=== PATIENT | male | born 1935 | race Caucasian/White ===

== ENCOUNTER 2024-01-26 08:14 | Outpatient (CLI) | payer OTHER, SELFPAY ==
[2024-01-26] MEDS: REGADENOSON 0.4 MG/5 ML SYRINGE IVP (09:47)
[2024-01-26] MEDS: SODIUM CHLORIDE 0.9 % (FLUSH) 10 ML SYRINGE IVF (09:47)
--- NOTE | 2024-01-26 10:15 | W.PM.STED ---
Stress Test Note Date Date Seen: 01/26/24 Date of test: 01/26/24 Providers Primary care provider: Sariah Culver Stress test physician: Maggie Chin Stress Test Note Stress test ordered: Lexiscchinyere Indication for test: Chest pain Stress test medicine: Lexiscan Results discussion: Resting EKG: Sinus bradycardia, 56 beats per minute. Resting blood pressure: 177/78 Stress test: Patient was consented on stress test ordered and proceeded with Lexiscan nonwalking. Patient had no symptoms, no chest pain specifically, with administration of regadenoson. During monitoring, some 1 solitary PVC but no arrhythmia, no diagnostic EKG change for ischemia. No concerning blood pressure changes, patient really stated he had no symptoms. Patient will have his post stress images obtained and discharge to home. Impression: Subjectively negative, objectively negative EKG portion of Lexiscan. Follow up suggested: Patient will have post stress images obtained and await the nuclear medicine reading of these images to couple this for a full formal diagnostic test. He will wait to hear from his ordering physician regarding results.
[2024-01-26 10:21] VITALS: BP 181/85; PULSE 76
== END 2024-01-26 08:15 | disposition home or self-care (01) ==
PROVIDERS: PCP Internal Medicine; Visit Provider Internal Medicine
DX: R07.9 Chest pain, unspecified (principal)
CPT/HCPCS: 78452; 93016; 93017; A9500; J2785

== ENCOUNTER 2024-01-27 11:11 | Emergency (ER) | payer OTHER, MEDICARE, SELFPAY ==
[2024-01-27] VITALS (21 sets, daily range): BP systolic 118–157; BP diastolic 72–88; PULSE 45–63; RESP 14–16; O2SAT 91–99; BMI 22.9
--- NOTE | 2024-01-27 11:32 | ED.GENADULT ---
HPI - General Adult General Time Seen by Provider: 11:32 Date Seen: 01/27/24 Chief complaint: Chest Pain Stated complaint: chest pain Time Seen by Provider: 01/27/24 11:29 Source: patient, RN notes reviewed and old records reviewed Mode of arrival: ambulatory Limitations: no limitations History of Present Illness HPI narrative: 88-year-old male who presents today with chest pain. Patient presents with about 3 weeks of intermittent chest pain. Tense gets several episodes a day, sometimes at rest and sometimes associated with activities. This usually goes away on its own after couple of minutes. Patient has been seen by his primary care doctor for this, was prescribed nitroglycerin but has not used it. Patient had 3 episodes this morning which prompted his emergency department visit. Related Data Allergies Allergy/AdvReac Type Severity Reaction Status Date / Time No Known Drug Allergies Allergy Verified 01/26/24 09:49 [facility] Social History Smoking Status: Former smoker Do you use any of these nicotine containing products: None How often do you have a drink containing alcohol: monthly or less AUDIT-C Alcohol total score: 1 Non-prescribed substance use: denies use service: Yes Exam Narrative: Exam Narrative: General: Well-developed and well-nourished, no acute distress Head: Atraumatic and normocephalic Eyes: Pupils are equal reactive, extraocular motions intact, conjunctiva clear ENT: External nose and ears are normal, posterior pharynx without erythema or exudate Neck: No midline cervical tenderness, full spontaneous range of motion the neck, trachea midline, no adenopathy Heart: Regular rate and rhythm no murmurs or thrills Lungs: Clear to auscultation bilaterally without wheezes or crackles Abdomen: Soft, nontender, nondistended with active bowel sounds Musculoskeletal: No tenderness, deformity, or edema Neurologic: Awake, alert, and oriented x3, no gross focal neurologic deficits, cranial nerves intact as tested Psych: Mood and affect are appropriate Skin: No rashes Const: Vital Signs, click to edit/add: Vital Signs - 24 hr 01/27/24 11:23 01/27/24 11:32 01/27/24 11:33 Pulse Rate 48 L 48 L Pulse Rate [Radial ] 47 L Respiratory Rate 16 14 Blood Pressure 157/83 H Blood Pressure [Le ft Upper Arm] 157/83 H Pulse Oximetry 97 95 94 Oxygen Delivery Me thod Room Air Room Air 10/18/24 11:45 01/27/24 12:00 01/27/24 12:02 Pulse Rate 52 L 52 L 50 L Pulse Rate [Radial ] Respiratory Rate 16 Blood Pressure 139/88 Blood Pressure [Le ft Upper Arm] Pulse Oximetry 98 96 97 Oxygen Delivery Me thod Room Air 01/27/24 12:15 01/27/24 12:17 01/27/24 12:30 Pulse Rate 51 L 57 L 46 L Pulse Rate [Radial ] Respiratory Rate 14 Blood Pressure 146/81 H Blood Pressure [Le ft Upper Arm] Pulse Oximetry 96 96 97 Oxygen Delivery Me thod 01/27/24 12:32 01/27/24 12:45 01/27/24 12:47 Pulse Rate 48 L 45 L 45 L Pulse Rate [Radial ] Respiratory Rate 14 Blood Pressure 133/75 118/75 Blood Pressure [Le ft Upper Arm] Pulse Oximetry 99 93 94 Oxygen Delivery Me thod Room Air 01/27/24 13:00 01/27/24 13:02 01/27/24 13:15 Pulse Rate 48 L 47 L 49 L Pulse Rate [Radial ] Respiratory Rate Blood Pressure 134/78 Blood Pressure [Le ft Upper Arm] Pulse Oximetry 97 97 97 Oxygen Delivery Me thod 01/27/24 13:17 01/27/24 13:30 01/27/24 13:32 Pulse Rate 46 L 48 L 51 L Pulse Rate [Radial ] Respiratory Rate 14 Blood Pressure 124/73 139/87 Blood Pressure [Le ft Upper Arm] Pulse Oximetry 93 97 97 Oxygen Delivery Me thod Room Air 01/27/24 13:46 01/27/24 13:47 01/27/24 14:00 Pulse Rate 55 L 63 52 L Pulse Rate [Radial ] Respiratory Rate 14 Blood Pressure 140/72 H Blood Pressure [Le ft Upper Arm] Pulse Oximetry 97 91 97 Oxygen Delivery Me thod Course Course ED Course: Patient seen and examined, presents today with chest pain. 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 Patient presents today with chest pain, he has been having this off and on for the last 3 weeks, 3 episodes today. Sometimes associated with activity, sometimes at rest, last couple of minutes. EKG here does not demonstrate acute ischemic changes. EKG independently interpreted by me performed at 11:33 a.m. demonstrates sinus rhythm with first-degree AV block rate 47, findings consistent with prior septal infarct, no acute ST elevations or depressions does have T-wave inversion in V3 through V6, no prior for comparison. Reevaluation(s) Time of Reevaluation #1: 12:37 Reevaluation #1: Labs independently interpreted by me with normal CBC, basic panel with creatinine 1.6, unsure what patient's baseline is. Initial troponin 0.18 which is elevated, may be related to poor clearance from elevated creatinine or stress recent stress test, however with positive stress test, intermittent ongoing chest pain and elevated troponin heparin will be initiated and plan for transfer. [place] was contacted after initial patient contact, waiting for call back Time of Reevaluation #2: 13:32 Reevaluation #2: Care discussed with Dr. Rosales, cardiology at [facility] who accepts patient for transfer. Vital Signs Vital signs: Initial Vital Signs Pulse Rate 47 L 01/27/24 11:23 Pulse Rhythm Regular 01/27/24 11:23 Respiratory Rate 16 01/27/24 11:23 Blood Pressure 157/83 H 01/27/24 11:23 Blood Pressure Mean 107 H 01/27/24 11:23 Pulse Oximetry 97 01/27/24 11:23 Oxygen Delivery Method Room Air 01/27/24 11:23 Vital Signs Pulse Rate 47 L 01/27/24 11:23 Respiratory Rate 16 01/27/24 11:23 Blood Pressure 157/83 H 01/27/24 11:23 Pulse Oximetry 97 01/27/24 11:23 Oxygen Delivery Method Room Air 01/27/24 11:23 Pulse Rate 52 L 01/27/24 14:00 Respiratory Rate 14 01/27/24 13:47 Blood Pressure 140/72 H 01/27/24 13:47 Pulse Oximetry 97 01/27/24 14:00 Oxygen Delivery Method Room Air 01/27/24 13:32 Medications Administered Medications: Generic Name Dose Route Start Last Admin Trade Name Freq PRN Reason Stop Dose Admin Heparin Sodium/Dextrose 25,000 unit in 500 mls @ 0 mls/hr 01/27/24 12:45 01/27/24 13:02 Heparin IV 844 unit/hr .Q0M KASANDRA 16.88 mls/hr Administration Protocol Per Protocol Discontinued Medications Generic Name Dose Route Start Last Admin Trade Name Twin PRN Reason Stop Dose Admin Aspirin 324 mg 01/27/24 13:25 01/27/24 13:45 Aspirin 81 Mg Tab.Chew PO 01/27/24 13:26 324 mg ONCE ONE Administration Heparin Sodium (Porcine) 4,000 unit 01/27/24 12:39 01/27/24 13:04 Heparin 5,000 Unit/0.5 Ml Inj IVP 01/27/24 12:40 4,000 unit ONCE ONE Administration Medical Decision Making Lab Data Labs: Lab Results 01/27/24 01/27/24 Range/Units 11:58 12:38 WBC 6.42 (4.50-11.00) K/uL RBC 4.05 L (4.30-5.90) m/uL Hgb 12.4 L (13.5-17.5) gm/dL Hct 38.0 (37.0-53.0) % MCV 94 (80-100) fL MCH 31 (26-34) pg MCHC 33 (32-36) gm/dL RDW Coeff of [place] 12.4 (11.5-15.5) % Plt Count 178 (140-440) K/uL Neut % (Auto) 71.4 (42.0-72.0) % Lymph % (Auto) 14.6 L (20-44) % Angelina % (Auto) 10.3 (0.0-11.0) % Eos % (Auto) 2.6 (0.0-7.0) % Baso % (Auto) 1.1 (0.0-3.0) % Neut # (Auto) 4.58 (1.7-7.0) K/uL Lymph # (Auto) 0.90 (0.90-2.90) K/uL Angelina # (Auto) 0.70 (0.00-0.90) K/UL Eos # (Auto) 0.17 (0.00-0.50) K/uL Baso # (Auto) 0.07 (0.00-0.30) K/uL Abs Immat Gran (auto) 0.00 (0.00-0.30) K/uL Imm/Tot Granulo (auto) 0.0 % INR 1.04 (0.91-1.10) APTT 48 H (23-33) Seconds Sodium 137 (135-149) mmol/L Potassium 3.9 (3.6-5.1) mmol/L Chloride 102 (96-114) mmol/L Carbon Dioxide 27 (20-32) mmol/L Anion Gap 8 (7-15) mEq/L BUN 36 H (7-30) mg/dL Creatinine 1.6 H (0.5-1.5) mg/dL Estimated Creat Clear 32.96 Estimated GFR 42 ml/min Glucose 93 (60-115) mg/dL Calcium 8.9 (8.4-10.6) mg/dL Magnesium 2.4 (1.5-2.6) mg/dL NT-Pro-B Natriuret Pep 1760 pg/mL Lab Acknowledgement Test Added Critical Care Time Critical Care Time Critical Care Time: Yes (NSTEMI, heparin and transfer) Attestation: The patient required my highest level preparedness to intervene emergently and I personally spent this critical care time directly and personally managing the patient. This critical care time included: Obtaining a history; Examining the patient; Pulse oximetry; Ordering and reviewing of studies; Arranging urgent treatment with development of a management plan; Evaluation of patients response to treatment; Frequent reassessment discussions with other providers. This critical care time was performed to assess and manage the high probability of imminent life-threatening deterioration that could result in multiorgan failure. It was exclusive of separate billable procedures and treating other patients and teaching time. Total Critical Care Time in Minutes: 100 Discharge Plan Discharge Clinical Impression: Non-ST elevation [place] (NSTEMI), Positive cardiac stress test Patient Disposition: [facility] Discharge Location: [facility]
[2024-01-27 12:08] LABS: Basophils Absolute Auto 0.07 K/uL (0.00-0.30); Basophils Percent Auto 1.1 % (0.0-3.0); Eosinophils Absolute Auto 0.17 K/uL (0.00-0.50); Eosinophils Percent Auto 2.6 % (0.0-7.0); Hemoglobin* 12.4 gm/dL (13.5-17.5); Lymphocytes Percent Auto 14.6 % (20-44); Mean Corpuscular HGB Conc 33 gm/dL (32-36); Mean Corpuscular Hemoglobin 31 pg (26-34); Mean Corpuscular Volume 94 fL (80-100); Monocytes Percent Auto 10.3 % (0.0-11.0); Neutrophils Absolute Auto 4.58 K/uL (1.7-7.0); Neutrophils Percent Auto 71.4 % (42.0-72.0); Platelet Count* 178 K/uL (140-440); RDW Coefficient of Variation % 12.4 % (11.5-15.5); Red Blood Count 4.05 m/uL (4.30-5.90); White Blood Count* 6.42 K/uL (4.50-11.00)
[2024-01-27 12:10] LABS: Slide Review Reflex No
--- OUTSIDE RECORDS SUMMARY | 2024-01-27 12:18 | XMS_ITS | Continuity of Care Document ---
Author Name [facility] Organization [facility] Care Team Providers Care Media Monitor Name Role Phone [facility] Unavailable Unavailable Problems Combined list of problems from Department of Defense and [facility] Affairs facilities. It does not include entries that were removed or entered in error. Problem Status Onset Date Problem Type Date of Resolution Comments Source Actinic keratosis Active Condition 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 Nov 22, 2022 Entered By: Phil GOMES Comment: 11/19/2022 [facility] Basal cell carcinoma of skin Active Condition [facility] Benign prostatic hyperplasia Active Condition [facility] Cataract, Senile, Unsp Active Condition [facility] Chronic kidney disease stage 3 Active Condition [facility] Coronary atherosclerosis Active Condition [facility] Dysphagia Active Condition [facility] Former heavy tobacco smoker Active Condition [facility] GERD Active Condition [facility] Hydrocele Nos Active Condition [facility] Hypercholesterolemia * (ICD-9-CM 272.0) Active Condition [facility] Hyperlipidemia Active Condition [facility] Hyperlipidemia * (ICD-9-CM 272.4) Active Condition [facility] Hypermetropia/Hyperopia Active Condition [facility] Hypertension (SNOMED CT 74819800) Active Condition [facility] HYPERTENSION NOS Active Condition [facility] Hypertension, Benign Active Condition [facility] Hypothyroidism (SNOMED CT 47116382) Active Condition [facility] Hypothyroidism * (ICD-9-CM 244.9) Active Condition [facility] Low Back Pain * (ICD-9-CM 724.2) Active Condition [facility] 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) Active Condition [facility] Pain of left shoulder joint Active Condition [facility] Presbyopia Active Condition [facility] PROSTATE-BENING LOC HYPERPLASIA Active Condition [facility] Solitary nodule of lung Active Condition [facility] Diagnosis: ICD-10-CM R94.31 Abnormal electrocardiogram [ECG] [EKG] Active Diagnosis [facility] Diagnosis: ICD-10-CM 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 Diagnosis [facility] Diagnosis: ICD-10-CM D48.5 Neoplasm of uncertain behavior of skin Active Diagnosis [facility] Diagnosis: ICD-10-CM K59.00 Constipation, unspecified Active Diagnosis [facility] Diagnosis: ICD-10-CM Z71.2 Person consulting for explanation of exam or test findings Active Diagnosis [facility] Diagnosis: ICD-10-CM Z71.9 Counseling, unspecified Active Diagnosis [facility] Diagnosis: ICD-10-CM Z23 Encounter for immunization Active Diagnosis [facility] Diagnosis: ICD-10-CM Z46.1 Encounter for fitting and adjustment of hearing aid Active Diagnosis [facility] Diagnosis: ICD-10-CM R13.12 Dysphagia, oropharyngeal phase Active Diagnosis [facility] Diagnosis: ICD-10-CM C44.41 Basal cell carcinoma of skin of scalp and neck Active Diagnosis [facility] Diagnosis: ICD-10-CM L57.0 Actinic keratosis Active Diagnosis [facility] Diagnosis: ICD-10-CM H90.3 Sensorineural hearing loss, bilateral Active Diagnosis [facility] Diagnosis: ICD-10-CM M19.012 Primary osteoarthritis, left shoulder Active Diagnosis [facility] Diagnosis: ICD-10-CM M25.512 Pain in left shoulder Active Diagnosis [facility] Medications Combined list of outpatient medications from Department of Defense and [facility] Affairs facilities.Medications provided include 1) outpatient medications from the last 15 months, and 2) patient-reported medications. Medication Details Route Status Patient Instructions Prescription Expires Prescription Number Last Dispense Date Ordering Provider Order Date Order Qty Source ASPIRIN 81MG TAB,EC TAKE ONE TABLET BY MOUTH EVERY DAY ORAL ACTIVE JACKELYN GOMES 2023 [facility] [place] 0.005% CREAM,TOP APPLY THIN LAYER TOPICALL Y TWICE A DAY FOR ROUGH, SCALY SKIN PATCHES MIX WITH EQUAL AMOUNT OF FLUOROUR ACIL CREAM AND APPLY TO [facility] ED AREA(S). USE FOR 4-7 DAYS DIRECTED . WAIT UNTIL FEBRUARY WHEN SPOTS ARE HEALED FROM LIQUID NITROGEN TREATMEN T IN CLINIC. KEEP OUT OF REACH OF KIDS/PET S. DO NOT APPLY TO NOSE, EYES, MOUTH. MIX WITH EQUAL AMOUNT OF FLUOROUR ACIL CREAM AND APPLY TO [facility] ED AREA(S). USE FOR 4-7 DAYS DIRECTED . WAIT UNTIL FEBRUARY WHEN SPOTS ARE HEALED FROM LIQUID NITROGEN TREATMEN T IN CLINIC. KEEP OUT OF REACH OF KIDS/PET S. DO NOT APPLY TO NOSE, EYES, MOUTH. TOPICA L ACTIVE 02/04/2024 [id number] LAWANDA SANCHES 2023 60 [employer] [facility] [place] NE 0.005% CREAM,TOP APPLY THIN LAYER TOPICALL Y TWICE A DAY ACTINIC KERATOSI S MIX WITH EQUAL AMOUNT OF FLUOROUR ACIL CREAM AND APPLY TO [facility] ED AREA(S). USE FOR 4-7 DAYS DIRECTED . MIX WITH EQUAL AMOUNT OF FLUOROUR ACIL CREAM AND APPLY TO DESIGNAT ED AREA(S). USE FOR 4-7 DAYS DIRECTED . TOPICA L 12/19/2022 [id number] MARYJANE IBARRA V 2022 60 [employer] [facility]LOB [facility] FLUOROURACI L 5% CREAM,TOP APPLY PEA SIZED AMOUNTS SMOOTHED TO A THIN LAYER TOPICALL Y TWICE A DAY FOR ROUGH, SCALY SKIN PATCHES MIX WITH EQUAL AMOUNT OF CALCIPOT RIENE CREAM AND APPLY TO [facility] ED AREA(S) ON FACE. USE FOR 4-7 DAYS DIRECTED . WAIT UNTIL FEBRUARY WHEN SPOTS ARE HEALED FROM LIQUID NITROGEN TREATMEN T IN CLINIC. MIX WITH EQUAL AMOUNT OF CALCIP[place] RIENE CREAM AND APPLY TO DESIGNAT ED AREA(S) ON FACE. USE FOR 4-7 DAYS DIRECTED . WAIT UNTIL FEBRUARY WHEN SPOTS ARE HEALED FROM LIQUID NITROGEN TREATMEN T IN CLINIC. TOPICA L ACTIVE 02/04/2024 [id number] 4 LAWANDA SANCHES 2023 40 [place] [facility] FLUOROURACI L 5% CREAM,TOP APPLY THIN LAYER TOPICALL Y TWICE A DAY ACTINIC KERATOSI S MIX WITH EQUAL AMOUNT OF CAL[place]IP[place] RIENE CREAM AND APPLY TO DESIGNAT ED AREA(S). USE FOR 4-7 DAYS DIRECTED . MIX WITH EQUAL AMOUNT OF [place] RIENE CREAM AND APPLY TO DESIGNAT ED AREA(S). USE FOR 4-7 DAYS DIRECTED . TOPICA L 12/19/2022 [id number] ELAINE MARYJANE REBOLLAR L V 2022 40 [facility] HYDROCHLORO THIAZIDE 25MG/LISINO PRIL 20MG TAB TAKE 1 TABLET BY MOUTH EVERY MORNING FOR BLOOD PRESSURE . ORAL ACTIVE 06/13/2024 [id number] JACKELYN GOMES 2023 90 [facility] HYDROCHLORO THIAZIDE 25MG/LISINO PRIL 20MG TAB TAKE 1 TABLET BY MOUTH EVERY MORNING FOR BLOOD PRESSURE . ORAL DISCONT INUED 03/24/2023 [id number] [facility] 2021 90 [facility] HYDROCHLORO THIAZIDE 25MG/LISINO PRIL 20MG TAB TAKE ONE TABLET BY MOUTH EVERY MORNING FOR BLOOD PRESSURE ([facility] ; [facility]) ORAL 03/17/2023 [id number] ABELINO LEONG 2022 14 [facility] MULTI/BAND PRESSER AL/ANTIOXID ANT TAB MOUTH EVERY DAY ORAL ACTIVE JACKELYN GOMES 2022 [facility] NITROGLYCER IN 0.4MG TAB,SUBLING UAL DISSOLVE ONE TABLET UNDER THE TONGUE EVERY 5 MINUTES FOR UP TO 3 DOSES IF NEEDED FOR CHEST PAIN SUBLIN GUAL ACTIVE 02/10/2024 [id number] 4 JACKELYN GOMES 2023 100 [facility] POLYETHYLEN E GLYCOL 3350 PWDR,ORAL TAKE 17 GRAMS BY MOUTH EVERY DAY NEEDED FOR CONSTIPA TION ORAL ACTIVE 12/14/2024 [id number] JACKELYN GOMES 2023 510 [facility] SILVER SULFADIAZIN E 1% CREAM,TOP APPLY TO AFFECTED AREA TOPICALL Y TWICE A DAY NEEDED FOR IRRITATE D SKIN TOPICA L ACTIVE 10/11/2024 [id number] JACKELYN GOMES 2023 50 [facility] Immunizations Combined list of available immunizations from the Department of Defense and [facility] Affairs facilities. Immunization Series Date Given Administered By Site Reaction Lot Number CVX Code Drug Senior Economist Status Comments Source INFLUENZA, HIGH-DOSE, TRIVALENT, PF 2023 PEPEKATYA LEFT DELTO ID [id number] A 135 complet ed [facility] INFLUENZA, HIGH-DOSE, QUADRIVALENT 2022 BOOGIE ROJAS LEFT DELTO ID [id number] A 197 complet ed [facility] TDAP 2022 MARCUS ALMANZA LEFT DELTO ID L 115 complet ed [facility] INFLUENZA, HIGH-DOSE, QUADRIVALENT 2021 197 complet ed Partner:Rosaline JACKMAN.Admin istered by:[facility] [id number].( [id number] [phone]).[facility]:[phone] .Address: [address] [phone] Dosage: ML 0.7 C.WGuy [facility] INFLUENZA, INJECTABLE, QUADRIVALENT, PRESERVATIVE FREE 2020 150 complet ed [facility] COVID-19 (MODERNA), MRNA, LNP-S, PF, 100 MCG/0.5ML DOSE OR 50 MCG/0.25ML DOSE 2 2020 207 complet ed [facility] COVID-19 (MODERNA), MRNA, LNP-S, PF, 100 MCG/0.5ML DOSE OR 50 MCG/0.25ML DOSE 1 2020 207 complet ed [facility] INFLUENZA, INJECTABLE, QUADRIVALENT, PRESERVATIVE FREE 2019 150 complet ed [facility] INFLUENZA, SEASONAL, INJECTABLE, PRESERVATIVE FREE 2018 NONE 140 complet ed Right Deltoid (IM) 0.5ml, Lot #:[id number] Exp 10-09-2019 , Name:FLUA LISA QUADRIVAL ENT, Manu:Glax oSmithKli clinton [facility] ZOSTER RECOMBINANT 2 2018 187 complet ed [facility] ZOSTER RECOMBINANT 1 2018 187 complet ed [facility] INFLUENZA, HIGH DOSE SEASONAL 2017 135 complet ed [facility] INFLUENZA, HIGH DOSE SEASONAL 2017 135 complet ed [facility] INFLUENZA, INJECTABLE, MDCK, PRESERVATIVE FREE, QUADRIVALENT 2016 171 complet ed Partner: Stacykuldeep . Administe red by: Alberto Clinician (NPI=Not Provided) . Partner 2 Lot#: [id number] Mfr: RAMONA [facility] INFLUENZA, SEASONAL, INJECTABLE, PRESERVATIVE FREE 2015 140 complet ed [facility] PNEUMOCOCCAL CONJUGATE PCV 13 2014 133 complet ed 000 [facility] INFLUENZA, UNSPECIFIED FORMULATION 2013 88 complet ed [facility] INFLUENZA, UNSPECIFIED FORMULATION 2012 88 complet ed [facility] TDAP 2012 115 complet ed Glaxo aguero de la torre,22C 9R, [facility] ZOSTER LIVE 2012 121 complet ed Merck,J00 [id number] L14 [facility] INFLUENZA, UNSPECIFIED FORMULATION 2011 88 complet ed [facility] INFLUENZA, UNSPECIFIED FORMULATION 2010 88 complet ed [facility] INFLUENZA, UNSPECIFIED FORMULATION 2009 88 complet ed [facility] INFLUENZA, UNSPECIFIED FORMULATION 2008 88 complet ed Lindsey [facility] INFLUENZA, UNSPECIFIED FORMULATION 2008 88 complet ed [facility] INFLUENZA, UNSPECIFIED FORMULATION 2007 88 complet ed [facility] INFLUENZA, UNSPECIFIED FORMULATION 2007 88 complet ed Lindsey [facility] INFLUENZA, UNSPECIFIED FORMULATION 2007 88 complet ed Lindsey [facility] INFLUENZA, UNSPECIFIED FORMULATION 2006 88 complet ed [facility] PNEUMOCOCCAL (HISTORICAL) 2006 NONE 109 complet ed Left Deltoid (IM), Lot Number:[id number] Exp: 12/24/08 [facility] PNEUMOCOCCAL, UNSPECIFIED FORMULATION 2006 109 complet ed [facility] TD (ADULT), 5 LF TETANUS TOXOID, PRESERVATIVE FREE, ADSORBED 2005 113 complet ed [facility] INFLUENZA, SEASONAL, INJECTABLE 2004 141 complet ed [facility] TD(ADULT) UNSPECIFIED FORMULATION 2004 139 complet ed [facility] TD(ADULT) UNSPECIFIED FORMULATION 2003 139 complet ed Lindsey [facility] TD(ADULT) UNSPECIFIED FORMULATION 1994 139 complet ed GAGE [facility] Results Combined list of recent chemistry, hematology and other laboratory results from Department of Defense and [facility] Affairs, ranging from 15 months to all on record, depending upon the facility. Order Name Results Value Reference Range Date Interpretation Specimen Comments Source TSH W/REFLEX TO FREE T4 THYROTROPIN [UNITS/VOLU ME] IN SERUM OR PLASMA 5.10 u[IU]/ mL 0.35 - 4.94 12/13 H Specimen Type: PLASMA No comment entered. Ordering Provider: SA MARCOS GOMES Report Released Date/Time: Dec 14, 2023 12:10 PM Reporting Lab: [facility] [address] Performing Lab: [facility] [address] [place] [facility] TSH W/REFLEX TO FREE T4 THYROXINE (T4) FREE [MASS/VOLUM E] IN SERUM OR PLASMA 0.83 ng/dL 0.70 - 1.48 12/13 Specimen Type: PLASMA No comment entered. Ordering Provider: SA MARCOS GOMES Report Released Date/Time: Dec 14, 2023 12:10 PM Reporting Lab: [facility] [address] Performing Lab: [facility] [address] [place] [facility] B 12 COBALAMIN (VITAMIN B12) [MASS/VOLUM E] IN SERUM OR PLASMA 642 pg/mL 213 - 816 12/13 Specimen Type: SERUM No comment entered. Ordering Provider: SA MARCOS GOMES Report Released Date/Time: Dec 14, 2023 12:10 PM Reporting Lab: [facility] [address] Performing Lab: [facility] [address] [place] [facility] IRON GROUP IRON [MASS/VOLUM E] IN SERUM OR PLASMA 95 ug/dL 65 - 175 12/13 Specimen Type: SERUM No comment entered. Ordering Provider: SA MARCOS GOMES Report Released Date/Time: Dec 14, 2023 12:10 PM Reporting Lab: [facility] [address] Performing Lab: [facility] [address] [place] [facility] IRON GROUP IRON BINDING CAPACITY [MASS/VOLUM E] IN SERUM OR PLASMA 276 ug/dL 250 - 425 12/13 Specimen Type: SERUM No comment entered. Ordering Provider: SA MARCOS GOMES Report Released Date/Time: Dec 14, 2023 12:10 PM Reporting Lab: [facility] [address] Performing Lab: [facility] [address] [place] [facility] IRON GROUP FERRITIN [MASS/VOLUM E] IN SERUM OR PLASMA 495.9 ng/mL 21.8 - 274.7 12/13 H Specimen Type: SERUM No comment entered. Ordering Provider: SA MARCOS GOMES Report Released Date/Time: Dec 14, 2023 12:10 PM Reporting Lab: [facility] [address] Performing Lab: [facility] [address] [place] [facility] IRON GROUP IRON SATURATION 34 20 - 50 12/13 Specimen Type: SERUM No comment entered. Ordering Provider: SA MARCOS GOMES Report Released Date/Time: Dec 14, 2023 12:10 PM Reporting Lab: [facility] [address] Performing Lab: [facility] [address] [place] [facility] IRON GROUP TRANSFERRIN [MASS/VOLUM E] IN SERUM OR PLASMA 221 mg/dL 163 - 382 12/13 Specimen Type: SERUM No comment entered. Ordering Provider: SA MARCOS GOMES Report Released Date/Time: Dec 14, 2023 12:10 PM Reporting Lab: [facility] [address] Performing Lab: [facility] [address] [place] [facility] LIPID PANEL,NON -FASTING CHOLESTEROL [MASS/VOLUM E] IN SERUM OR PLASMA 186 mg/dL <199 - 199 12/13 Specimen Type: PLASMA No comment entered. Ordering Provider: SA MARCOS GOMES Report Released Date/Time: Dec 14, 2023 12:10 PM Reporting Lab: [facility] [address] Performing Lab: [facility] [address] [place] [facility] LIPID PANEL,NON -FASTING CHOLESTEROL IN HDL [MASS/VOLUM E] IN SERUM OR PLASMA 49 mg/dL 40 12/13 Specimen Type: PLASMA No comment entered. Ordering Provider: SA MARCOS GOMES Report Released Date/Time: Dec 14, 2023 12:10 PM Reporting Lab: [facility] [address] Performing Lab: [facility] [address] [place] [facility] LIPID PANEL,NON -FASTING CHOLESTEROL IN LDL [MASS/VOLUM E] IN SERUM OR PLASMA BY CALCULATION 116 mg/dL <99 - 99 12/13 H Specimen Type: PLASMA No comment entered. Ordering Provider: SA MARCOS GOMES Report Released Date/Time: Dec 14, 2023 12:10 PM Reporting Lab: [facility] [address] Performing Lab: [facility] [address] [place] [facility] LIPID PANEL,NON -FASTING CHOLESTEROL IN VLDL [MASS/VOLUM E] IN SERUM OR PLASMA BY CALCULATION 21 mg/dL <29 - 29 12/13 Specimen Type: PLASMA No comment entered. Ordering Provider: SA MARCOS GOMES Report Released Date/Time: Dec 14, 2023 12:10 PM Reporting Lab: [facility] [address] Performing Lab: [facility] [address] [place] [facility] LIPID PANEL,NON -FASTING CHOLESTEROL NON HDL [MASS/VOLUM E] IN SERUM OR PLASMA 137 mg/dL <129 - 129 12/13 H Specimen Type: PLASMA No comment entered. Ordering Provider: SA MARCOS GOMES Report Released Date/Time: Dec 14, 2023 12:10 PM Reporting Lab: [facility] [address] Performing Lab: [facility] [address] [place] [facility] LIPID PANEL,NON -FASTING TRIGLYCERID E [MASS/VOLUM E] IN SERUM OR PLASMA 106 mg/dL <149 - 149 12/13 Specimen Type: PLASMA No comment entered. Ordering Provider: SA MARCOS GOMES Report Released Date/Time: Dec 14, 2023 12:10 PM Reporting Lab: [address] Performing Lab: [address] [place] [facility] FOLATE FOLATE [MASS/VOLUM E] IN SERUM OR PLASMA 11.5 ng/mL 7.0 12/13 Specimen Type: SERUM No comment entered. Ordering Provider: SA MARCOS GOMES Report Released Date/Time: Dec 14, 2023 12:10 PM Reporting Lab: [place] [address] Performing Lab: [place] [address] [place] [facility] HEMOGLOBI N A1C HEMOGLOBIN A1C/HEMOGLO BIN.TOTAL IN BLOOD 5.3 4.0 - 6.0 12/13 Specimen Type: BLOOD Comment: Values obtained from A1C measurement s can vary. For typical A1C assays, a reported value of 7.0 could actually be between 6.7 and 7.3 if measured by a reference method. A reported value of 9.0 could actually be between 8.7 and 9.3. Ref: http://www. ngsp.org/[place] Pdata.asp Ordering Provider: SA MARCOS GOMES Report Released Date/Time: Dec 14, 2023 12:10 PM Reporting Lab: [place] [phone] Performing Lab: [facility] [address] [place] [facility] CBC LEUKOCYTES [#/VOLUME] IN BLOOD BY AUTOMATED COUNT 5.5 4.0 - 11.0 12/13 Specimen Type: BLOOD No comment entered. Ordering Provider: SA MARCOS GOMES Report Released Date/Time: Dec 14, 2023 12:10 PM Reporting Lab: [facility] [address] Performing Lab: [place] [address] [place] [facility] CBC ERYTHROCYTE S [#/VOLUME] IN BLOOD BY AUTOMATED COUNT 4.59 4.60 - 6.20 12/13 L Specimen Type: BLOOD No comment entered. Ordering Provider: SA MARCOS GOMES Report Released Date/Time: Dec 14, 2023 12:10 PM Reporting Lab: [facility] [address] Performing Lab: [address] [place] [facility] CBC HEMOGLOBIN [MASS/VOLUM E] IN BLOOD 14.0 g/dL 13.5 - 17.9 12/13 Specimen Type: BLOOD No comment entered. Ordering Provider: SA MARCOS GOMES Report Released Date/Time: Dec 14, 2023 12:10 PM Reporting Lab: [facility] [address] Performing Lab: [facility] [address] [place] [facility] CBC HEMATOCRIT [VOLUME FRACTION] OF BLOOD BY AUTOMATED COUNT 43.0 41 - 54 12/13 Specimen Type: BLOOD No comment entered. Ordering Provider: SA MARCOS GOMES Report Released Date/Time: Dec 14, 2023 12:10 PM Reporting Lab: [facility] [address] Performing Lab: [facility] [address] [place] [facility] CBC MCV [ENTITIC VOLUME] BY AUTOMATED COUNT 93.7 fL 80 - 100 12/13 Specimen Type: BLOOD No comment entered. Ordering Provider: SA MARCOS GOMES Report Released Date/Time: Dec 14, 2023 12:10 PM Reporting Lab: [facility] [address] Performing Lab: [facility] [address] [place] [facility] CBC MCH [ENTITIC MASS] BY AUTOMATED COUNT 30.5 pg 27 - 33 12/13 Specimen Type: BLOOD No comment entered. Ordering Provider: SA MARCOS GOMES Report Released Date/Time: Dec 14, 2023 12:10 PM Reporting Lab: [facility] [address] Performing Lab: [facility] [address] [place] [facility] CBC MCHC [MASS/VOLUM E] BY AUTOMATED COUNT 32.6 g/dL 32.0 - 37.5 12/13 Specimen Type: BLOOD No comment entered. Ordering Provider: SA MARCOS GOMES Report Released Date/Time: Dec 14, 2023 12:10 PM Reporting Lab: [facility] [address] Performing Lab: [facility] [address] [facility] CBC PLATELETS [#/VOLUME] IN BLOOD BY AUTOMATED COUNT 184 150 - 400 12/13 Specimen Type: BLOOD No comment entered. Ordering Provider: SA MARCOS GOMES Report Released Date/Time: Dec 14, 2023 12:10 PM Reporting Lab: [facility] [address] Performing Lab: [facility] [address] [place] [facility] CBC PLATELET MEAN VOLUME [ENTITIC VOLUME] IN BLOOD BY AUTOMATED COUNT 10.6 fL 7.4 - 10.4 12/13 H Specimen Type: BLOOD No comment entered. Ordering Provider: SA MARCOS GOMES Report Released Date/Time: Dec 14, 2023 12:10 PM Reporting Lab: [facility] [address] Performing Lab: [place] [address] [facility] IS [facility] CBC ERYTHROCYTE DISTRIBUTIO N WIDTH [RATIO] BY AUTOMATED COUNT 12.7 11.5 - 14.5 12/13 Specimen Type: BLOOD No comment entered. Ordering Provider: SA MARCOS GOMES Report Released Date/Time: Dec 14, 2023 12:10 PM Reporting Lab: [facility] [address] Performing Lab: [facility] [address] [facility] COMPREHEN SIVE METABOLIC PANEL+MG CREATININE [MASS/VOLUM E] IN SERUM OR PLASMA 1.2 mg/dL 0.7 - 1.2 12/13 Specimen Type: PLASMA No comment entered. Ordering Provider: SA MARCOS GOMES Report Released Date/Time: Dec 14, 2023 12:10 PM Reporting Lab: [facility] [address] Performing Lab: [facility] [address] [place] [facility] COMPREHEN SIVE METABOLIC PANEL+MG UREA NITROGEN [MASS/VOLUM E] IN SERUM OR PLASMA 23 mg/dL 8 - 26 12/13 Specimen Type: PLASMA No comment entered. Ordering Provider: SA MARCOS GOMES Report Released Date/Time: Dec 14, 2023 12:10 PM Reporting Lab: [facility] [address] Performing Lab: [facility] [address] [place] [facility] COMPREHEN SIVE METABOLIC PANEL+MG GLUCOSE [MASS/VOLUM E] IN SERUM OR PLASMA 95 mg/dL 70 - 100 12/13 Specimen Type: PLASMA No comment entered. Ordering Provider: SA MARCOS GOMES Report Released Date/Time: Dec 14, 2023 12:10 PM Reporting Lab: [facility] [address] Performing Lab: [facility] [address] [place] [facility] COMPREHEN SIVE METABOLIC PANEL+MG SODIUM [MOLES/VOLU ME] IN SERUM OR PLASMA 143 mmol/L 136 - 145 12/13 Specimen Type: PLASMA No comment entered. Ordering Provider: SA MARCOS GOMES Report Released Date/Time: Dec 14, 2023 12:10 PM Reporting Lab: [facility] [id number] Performing Lab: [facility] [id number] [place] [facility] COMPREHEN SIVE METABOLIC PANEL+MG POTASSIUM [MOLES/VOLU ME] IN SERUM OR PLASMA 4.7 mmol/L 3.5 - 5.1 12/13 Specimen Type: PLASMA No comment entered. Ordering Provider: SA MARCOS GOMES Report Released Date/Time: Dec 14, 2023 12:10 PM Reporting Lab: [facility] [id number] Performing Lab: [facility] [id number] [place] [facility] COMPREHEN SIVE METABOLIC PANEL+MG CHLORIDE [MOLES/VOLU ME] IN SERUM OR PLASMA 108 mmol/L 98 - 107 12/13 H Specimen Type: PLASMA No comment entered. Ordering Provider: SA MARCOS GOMES Report Released Date/Time: Dec 14, 2023 12:10 PM Reporting Lab: [facility] [address] Performing Lab: [facility] [address] [place] [facility] COMPREHEN SIVE METABOLIC PANEL+MG CARBON DIOXIDE, TOTAL [MOLES/VOLU ME] IN SERUM OR PLASMA 28 mmol/L 22 - 29 12/13 Specimen Type: PLASMA No comment entered. Ordering Provider: SA MARCOS GOMES Report Released Date/Time: Dec 14, 2023 12:10 PM Reporting Lab: [facility] [address] Performing Lab: [facility] [address] [place] [facility] COMPREHEN SIVE METABOLIC PANEL+MG CALCIUM [MASS/VOLUM E] IN SERUM OR PLASMA 9.5 mg/dL 8.4 - 10.2 12/13 Specimen Type: PLASMA No comment entered. Ordering Provider: SA MARCOS GOMES Report Released Date/Time: Dec 14, 2023 12:10 PM Reporting Lab: [facility] [address] Performing Lab: [place] [phone] [place] [facility] COMPREHEN SIVE METABOLIC PANEL+MG PROTEIN [MASS/VOLUM E] IN SERUM OR PLASMA 7.1 g/dL 6.4 - 8.3 12/13 Specimen Type: PLASMA No comment entered. Ordering Provider: SA MARCOS GOMES Report Released Date/Time: Dec 14, 2023 12:10 PM Reporting Lab: [facility] [address] Performing Lab: [facility] [address] [place] [facility] COMPREHEN SIVE METABOLIC PANEL+MG ALBUMIN [MASS/VOLUM E] IN SERUM OR PLASMA 4.2 g/dL 3.5 - 5.2 12/13 Specimen Type: PLASMA No comment entered. Ordering Provider: SA MARCOS GOMES Report Released Date/Time: Dec 14, 2023 12:10 PM Reporting Lab: [facility] [address] Performing Lab: [facility] [address] [place] [facility] COMPREHEN SIVE METABOLIC PANEL+MG BILIRUBIN.T OTAL [MASS/VOLUM E] IN SERUM OR PLASMA 0.6 mg/dL 0.2 - 1.2 12/13 Specimen Type: PLASMA No comment entered. Ordering Provider: SA MARCOS GOMES Report Released Date/Time: Dec 14, 2023 12:10 PM Reporting Lab: [facility] [address] Performing Lab: [facility] [address] [place] [facility] COMPREHEN SIVE METABOLIC PANEL+MG MAGNESIUM [MASS/VOLUM E] IN SERUM OR PLASMA 2.2 mg/dL 1.6 - 2.6 12/13 Specimen Type: PLASMA No comment entered. Ordering Provider: SA MARCOS GOMES Report Released Date/Time: Dec 14, 2023 12:10 PM Reporting Lab: [facility] [address] Performing Lab: [facility] [address] [place] [facility] COMPREHEN SIVE METABOLIC PANEL+MG ANION GAP IN SERUM OR PLASMA 7 mmol/L 5 - 15 12/13 Specimen Type: PLASMA No comment entered. Ordering Provider: SA MARCOS GOMES Report Released Date/Time: Dec 14, 2023 12:10 PM Reporting Lab: [facility] [address] Performing Lab: [facility] [address] [place] [facility] COMPREHEN SIVE METABOLIC PANEL+MG ALKALINE PHOSPHATASE [ENZYMATIC ACTIVITY/VO LUME] IN SERUM OR PLASMA 67 U/L 40 - 150 12/13 Specimen Type: PLASMA No comment entered. Ordering Provider: SA MARCOS GOMES Report Released Date/Time: Dec 14, 2023 12:10 PM Reporting Lab: [facility] [address] Performing Lab: [facility] [address] [place] [facility] COMPREHEN SIVE METABOLIC PANEL+MG ALANINE AMINOTRANSF ERASE [ENZYMATIC ACTIVITY/VO LUME] IN SERUM OR PLASMA 12 U/L <44 - 44 12/13 Specimen Type: PLASMA No comment entered. Ordering Provider: SA MARCOS GOMES Report Released Date/Time: Dec 14, 2023 12:10 PM Reporting Lab: [facility] [address] Performing Lab: [facility] [address] [place] [facility] COMPREHEN SIVE METABOLIC PANEL+MG ASPARTATE AMINOTRANSF ERASE [ENZYMATIC ACTIVITY/VO LUME] IN SERUM OR PLASMA 24 U/L 11 - 34 12/13 Specimen Type: PLASMA No comment entered. Ordering Provider: SA MARCOS GOMES Report Released Date/Time: Dec 14, 2023 12:10 PM Reporting Lab: [facility] [address] Performing Lab: [facility] [address] [place] [facility] COMPREHEN SIVE METABOLIC PANEL+MG GLOMERULAR FILTRATION RATE/1.73 SQ M.PREDICTED [VOLUME RATE/AREA] IN SERUM, PLASMA OR BLOOD BY CREATININE- BASED FORMULA (CKD-EPI 2020) 59 60 12/13 L Specimen Type: PLASMA No comment entered. Ordering Provider: SA MARCOS GOMES H Report Released Date/Time: Dec 14, 2023 12:10 PM Reporting Lab: [facility] [address] Performing Lab: [facility] [address] [place] [facility] HEMOGLOBI N A1C HEMOGLOBIN A1C/HEMOGLO BIN.TOTAL IN BLOOD 5.3 4.0 - 6.0 10/13 Specimen Type: BLOOD Comment: Values obtained from A1C measurement s can vary. For typical A1C assays, a reported value of 7.0 could actually be between 6.7 and 7.3 if measured by a reference method. A reported value of 9.0 could actually be between 8.7 and 9.3. Ref: http://www. ngsp.org/CA Pdata.asp Ordering Provider: DIMA CHRISTIANSON Report Released Date/Time: Dec 12, 2020 02:19 PM Reporting Lab: [facility] [address] Performing Lab: [facility] [address] [place] [facility] BASIC METABOLIC PANEL+MG CREATININE [MASS/VOLUM E] IN SERUM OR PLASMA 1.2 mg/dL 0.7 - 1.2 10/13 Specimen Type: PLASMA No comment entered. Ordering Provider: DIMA CHRISTIANSON Report Released Date/Time: Dec 12, 2020 02:19 PM Reporting Lab: [facility] [address] Performing Lab: [facility] [address] [place] [facility] BASIC METABOLIC PANEL+MG UREA NITROGEN [MASS/VOLUM E] IN SERUM OR PLASMA 29 mg/dL 8 - 26 10/13 H Specimen Type: PLASMA No comment entered. Ordering Provider: DIMA CHRISTIANSON Report Released Date/Time: Dec 12, 2020 02:19 PM Reporting Lab: [facility] [address] Performing Lab: [facility] [address] [place] [facility] BASIC METABOLIC PANEL+MG GLUCOSE [MASS/VOLUM E] IN SERUM OR PLASMA 91 mg/dL 70 - 100 10/13 Specimen Type: PLASMA No comment entered. Ordering Provider: DIMA CHRISTIANSON Report Released Date/Time: Dec 12, 2020 02:19 PM Reporting Lab: [facility] [address] Performing Lab: [facility] [address] [place] [facility] BASIC METABOLIC PANEL+MG SODIUM [MOLES/VOLU ME] IN SERUM OR PLASMA 142 mmol/L 136 - 145 10/13 Specimen Type: PLASMA No comment entered. Ordering Provider: DIMA CHRISTIANSON Report Released Date/Time: Dec 12, 2020 02:19 PM Reporting Lab: [facility] [address] Performing Lab: [facility] [address] [place] [facility] BASIC METABOLIC PANEL+MG POTASSIUM [MOLES/VOLU ME] IN SERUM OR PLASMA 4.5 mmol/L 3.5 - 5.1 10/13 Specimen Type: PLASMA No comment entered. Ordering Provider: DIMA CHRISTIANSON Report Released Date/Time: Dec 12, 2020 02:19 PM Reporting Lab: [facility] [address] Performing Lab: [facility] [address] [place] [facility] BASIC METABOLIC PANEL+MG CHLORIDE [MOLES/VOLU ME] IN SERUM OR PLASMA 107 mmol/L 98 - 107 10/13 Specimen Type: PLASMA No comment entered. Ordering Provider: DIMA CHRISTIANSON Report Released Date/Time: Dec 12, 2020 02:19 PM Reporting Lab: [facility] [address] Performing Lab: [facility] [address] [place] [facility] BASIC METABOLIC PANEL+MG CARBON DIOXIDE, TOTAL [MOLES/VOLU ME] IN SERUM OR PLASMA 29 mmol/L 22 - 29 10/13 Specimen Type: PLASMA No comment entered. Ordering Provider: DIMA CHRISTIANSON Report Released Date/Time: Dec 12, 2020 02:19 PM Reporting Lab: [facility] [address] Performing Lab: [facility] [address] [place] [facility] BASIC METABOLIC PANEL+MG CALCIUM [MASS/VOLUM E] IN SERUM OR PLASMA 9.7 mg/dL 8.4 - 10.2 10/13 Specimen Type: PLASMA No comment entered. Ordering Provider: DIMA CHRISTIANSON Report Released Date/Time: Dec 12, 2020 02:19 PM Reporting Lab: [facility] [address] Performing Lab: [facility] [address] [place] [facility] BASIC METABOLIC PANEL+MG MAGNESIUM [MASS/VOLUM E] IN SERUM OR PLASMA 2.2 mg/dL 1.6 - 2.6 10/13 Specimen Type: PLASMA No comment entered. Ordering Provider: DIMA CHRISTIANSON Report Released Date/Time: Dec 12, 2020 02:19 PM Reporting Lab: [facility] [address] Performing Lab: [facility] [address] [place] [facility] BASIC METABOLIC PANEL+MG ANION GAP IN SERUM OR PLASMA 6 mmol/L 5 - 15 10/13 Specimen Type: PLASMA No comment entered. Ordering Provider: DIMA CHRISTIANSON Report Released Date/Time: Dec 12, 2020 02:19 PM Reporting Lab: [facility] [address] Performing Lab: [facility] [address] [place] [facility] BASIC METABOLIC PANEL+MG GLOMERULAR FILTRATION RATE/1.73 SQ M.PREDICTED [VOLUME RATE/AREA] IN SERUM, PLASMA OR BLOOD BY CREATININE- BASED FORMULA (CKD-EPI 2020) 59 10/13 L Specimen Type: PLASMA No comment entered. Ordering Provider: DIMA CHRISTIANSON Report Released Date/Time: Dec 12, 2020 02:19 PM Reporting Lab: [facility] [address] Performing Lab: [facility] [address] [facility] [address] [place] [facility] Vital Signs Combined list of inpatient and outpatient Vital Signs from Department of Defense and Veterans Affairs, ranging from 12 months to all on record, depending upon the facility. Vital Sign Value Date Comments Source SYSTOLIC BLOOD PRESSURE 138 01/11/20 24 13:25:22 [facility] DIASTOLIC BLOOD PRESSURE 79 024 13:25:22 [facility] PULSE OXIMETRY 98 01/11/2024 13:25:22 [facility] WEIGHT 151 01/11/2024 13:25:22 [facility] BMI 24kg/m2 01/11/2024 13:25:22 [facility] PAIN 0 01/11/2024 13:25:22 [facility] HEIGHT 67 01/11/2024 13:25:22 [facility] TEMPERATURE 98.8 01/11/2024 13:25:22 [facility] PULSE 53 01/11/2024 13:25:22 [facility] RESPIRATION 16 01/11/2024 13:25:22 [facility] SYSTOLIC BLOOD PRESSURE 156 12/14/19 24 11:26:02 [facility] DIASTOLIC BLOOD PRESSURE 82 024 11:26:02 [facility] PULSE OXIMETRY 96 12/14/2023 11:26:02 [facility] WEIGHT 153 12/14/2023 11:26:02 [facility] BMI 24kg/m2 12/14/2023 11:26:02 [facility] PAIN 0 12/14/2023 11:26:02 [facility] TEMPERATURE 98.8 12/14/2023 11:26:02 [facility] PULSE 50 12/14/2023 11:26:02 [facility] RESPIRATION 16 12/14/2023 11:26:02 [facility] SYSTOLIC BLOOD PRESSURE 105 02/18/20 23 14:01:00 [facility] DIASTOLIC BLOOD PRESSURE 57 023 14:01:00 [facility] WEIGHT 156.0 02/17/2023 14:01:00 [place] [facility] BMI 23kg/m2 02/17/2023 14:01:00 [place] [facility] TEMPERATURE 98.5 02/17/2023 14:01:00 [facility] RESPIRATION 16 02/17/2023 14:01:00 [place] [facility] Encounters Combined list of: 1) Encounters from Department of [facility] Affairs facilities going back up to thelast 18 months. 2) Encounters from the Department of [facility] facilities going back up to 280 months. Location Location Details Encounter Type Encounter Number Reason For Visit Attending Provider ADM Date DC Date Status Disposition Source [place] [facility] Outpatient Encounter [id number] 07/29 [facility] [place] [facility] Outpatient Encounter [id number] 09/10 [facility] [place] [facility] Outpatient Encounter [id number] 09/10 [facility] OFFICE O/P EST MOD 30-39 MIN [id number] Diagnos is: ICD-10- CM M25.512 Pain in left shoulde r
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
JESSICA DIOR 10/18 [facility] Outpatient Encounter [id number] 10/18 [facility] OFFICE O/P EST LOW 20-29 MIN [id number] Diagnos is: ICD-10- CM H90.3 Sensori neural hearing loss, bilater al
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
Yarelis PENNINGTON 11/11 [facility] OFFICE O/P NEW SF 15-29 MIN [id number] Diagnos is: ICD-10- CM L57.0 Actinic keratos is
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
ALEX BHATT 11/24 [facility] OFFICE O/P EST MOD 30-39 MIN [id number] Diagnos is: ICD-10- CM R13.12 Dysphag ia, orophar yngeal phase<b r/> FADY VENCES 12/06 [facility] CASE MANAGEMENT [id number] MARCUS VAUGHN 01/04 [facility] Outpatient Encounter [id number] MARCUS VAUGHN 01/06 [facility] IS [facility] CONFORMITY EVALUATION [id number] Diagnos is: ICD-10- CM Z46.1 Encount er for fitting and adjustm ent of hearing aid<br/ > SYDNEE RANDALL RTHA R 01/07 [facility] Outpatient Encounter [id number] 01/11 [facility] HC PRO PHONE CALL 5-10 MIN [id number] Diagnos is: ICD-10- CM 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
TAINA BENJAMIN ICA K 01/11 [facility] Outpatient Encounter [id number] 01/12 [facility] IMMUNIZATI ON ADMIN [id number] Diagnos is: ICD-10- CM Z23 Encount er for immuniz ation<b r/> CYNDIE ROJAS S Catalino 01/28 [facility] Outpatient Encounter [id number] JUAN ARMENTA 02/10 [facility] Outpatient Encounter [id number] 02/14 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
TAINA BENJAMIN ICA K 02/15 [facility] OFFICE O/P EST LOW 20-29 MIN [id number] Diagnos is: ICD-10- CM D48.5 Neoplas m of uncerta in behavio r of skin
ANTONINA BOSCH ER L 02/17 [facility] Outpatient Encounter [id number] ANSONEBONIE AVITIA NONI H 02/24 [facility] IS [facility] CASE MANAGEMENT [id number] Arpan HENDRICKSON PAULA L 02/24 [facility] Outpatient Encounter [id number] 02/24 [facility] HC PRO PHONE CALL 5-10 MIN [id number] Diagnos is: ICD-10- CM Z71.2 Person consult ing for explana tion of exam or test finding s
KRISHNA SHERMAN K 02/25 [facility] Outpatient Encounter [id number] 03/08 [facility] IS [facility] OFFICE O/P EST HI 40 MIN [id number] Diagnos is: ICD-10- CM K59.00 Constip ation, 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
Phil GOMES H 12/13 [place] [facility] OFFICE O/P EST MOD 30 MIN [id number] Diagnos is: ICD-10- CM D48.5 Neoplas m of uncerta in behavio r of skin
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
MIREYA,S ALLY H 01/10 [facility] Outpatient Encounter [id number] Diagnos is: ICD-10- CM R94.31 Abnorma l electro cardiog annia [ECG] [EKG]<b r/> Yarelis COLEMAN M 01/17 [facility] Outpatient Encounter [id number] BILLIE GILL 01/19 [facility] Outpatient Encounter [id number] 01/25 [facility] Outpatient Encounter [id number] Jason KEY 01/26 [facility] Social History Combined list of available smoking, tobacco, and other social history from Department of Defense and [facility] Affairs facilities. Social History Type Response Date Comment Sour e Tobacco smoking status [facility]-TOBACCO QUIT 15 YRS OR MORE 12/14/2023 [facility] History of tobacco use [place]-TOBACCO FORMER USER 12/14/2023 [facility] History of tobacco use OK-TOBACCO FORMER USER 10/13/2022 [facility] History of tobacco use OK-TOBACCO FORMER USER 07/27/2021 [facility] History of tobacco use OK-TOBACCO FORMER USER 01/02/2020 [facility] History of tobacco use VA-TOBACCO FORMER USER 07/21/2018 [facility] History of tobacco use FORMER TOBACCO USER 7Y OR GREATER 12/24/2016 [facility] History of tobacco use FORMER TOBACCO USE >1Y <7Y 12/23/2015 [facility] History of tobacco use FORMER TOBACCO USER 7Y OR GREATER 12/26/2014 [facility] History of tobacco use LIFETIME NON-TOBACCO USER 08/13/2013 [facility] History of tobacco use LIFETIME NON TOBACCO USER 07/09/2009 [facility] History of tobacco use LIFETIME NON TOBACCO USER 07/26/2008 [facility] History of tobacco use LIFETIME NON TOBACCO USER 04/18/2007 [facility] History of tobacco use FORMER TOBACCO USER 7Y OR GREATER 08/30/2006 [facility] History of tobacco use LIFETIME NON TOBACCO USER 06/30/2006 [facility] History of tobacco use HF V9 CURRENT I2E-OXRLIG 09/13/2002 28 years ago [facility] Plan of Care List of future care activities from [facility] facilities. Additional future care activities may be listed in the Assessment and Plan section. Date/Time Care Activity Care Activity Detail Facili ty 01/27/2024 AMBULATORY - NONE AMBULATORY - NONE [facility] 01/30/2024 AMBULATORY - SURGERY AMBULATORY - SURGERY [facility] 02/21/2024 AMBULATORY - MEDICINE AMBULATORY - MEDICI NE [facility] 01/18/2024 Consult Order CARDIAC ECHO OUT PT-ALL SITES Cons Rn Perioperative's Choice [facility] 01/19/2024 Consult Order COMM[facility]ITY [facility]ARE-N UCLEAR MEDICINE Cons Rn Perioperative's Choice [facility] 01/19/2024 Consult Order COMMUNITY CARE-D ERMATOLOGY Cons Rn Perioperative's Choice [facility] Advance Directives List of completed, amended, or rescinded Advance Directives on record at [facility] facilities. An actual copy of the Directive is not included. Date Advance Directive Provider Source 08/30/2006 ADVANCE DIRECTIVE ARGENIS CRAMER [facility]
--- OUTSIDE RECORDS SUMMARY | 2024-01-27 12:18 | XMS_ITS | Encounter Summary ---
Author Name [facility] [place] Address [address] [place] [address] Care Team Providers Care Sales Representative [employer] Name Role Phone JACKELYN GOMES Primary Care Provider Unavailpat greene Insurance Providers: All historical and current Section Date Range: From patient's date of to the date document was created. This section includes the names of all active insurance providers for the patient. Insurance Provider Type of Coverage Plan Name Start of Policy Coverage End of Policy Coverage Group Number Member ID Insurance Provider's Telephone Number Policy Ramirez's Name Patient's Relationship to Policy Ramirez MEDICARE (WNR) MEDICARE (M) PART A Sep 09, 2002 PART A [id number] [phone] JOAQUIN COUGHLIN S PATIENT MEDICARE (WNR) MEDICARE (M) PART B Sep 09, 2002 PART B [id number] [phone] JOAQUIN COUGHLIN S PATIENT MEDICARE (WNR) MEDICARE (M) PART A Sep 09, 2002 PART A [id number] JOAQUIN COUGHLIN S PATIENT MEDICARE (WNR) MEDICARE (M) PART B Sep 09, 2002 PART B [id number] JOAQUIN COUGHLIN S PATIENT Selected Encounter This section includes the information on record at [place] for the Encounter. Date/Time Encounter Type Encounter Description Reason Provider Source Feb 15, 2023 03:18 PM Outpatient Encounter CLINICAL PHARMACY ABELINO LEONG Encounter Template Text not used by [place] Plan of Treatment: Future Appointments (+ 6 months) and Future Tests (+/- 45 days) The Plan of Treatment section includes future care activities for the patient from all [place] treatmentfacilities. This section includes future appointments and future orders which are active, pending or scheduled. Future Appointments This section includes appointments that were scheduled to occur 6 months from the date of the Encounter, up to a maximum of 20 appointments. The data comes from all [place] treatment facilities. Appointment Date/Time Appointment Type Appointme nt Facility Name Feb 17, 2023 02:00 PM AMBULATORY - MEDICINE [facility] Apr 19, 2023 01:30 PM AMBULATORY - NONE Lindsey CURTIS [facility] Active, Pending, and Scheduled Orders This section includes a listing of several types of active, pending, and scheduled orders, including clinic medications orders, diagnostic test orders, procedure orders and consult orders; where the start date of the order is 45 days before the date of the Encounter or 45 days after the date of theEncounter. The data comes from all [facility]. Test Date/Time Test Type Test Details Facility Name Feb 17, 2023 02:10 PM Consult Order COMMUNITY CARE-DERMATOLOGY MOHS Cons Driver/Merchandiser's Choice [facility] Social History: Smoking Status (Most current) and Tobacco Use (All prior to encounter date) This section includes the most current, and the historical, smoking and tobacco- related health factors from the [place] facility where the Encounter took place. Current Smoking Status This section includes the most current smoking, or tobacco-related health factor, from the [place] facility where the Encounter took place. Date/Time Current Smoking Status Comment Mimi ity Jul 09, 2009 01:09 PM LIFETIME NON TOBACCO USER [facility] Tobacco Use History This section includes a history of the smoking, or tobacco-related health factors, that were collected on or before the date of the Encounter. The data comes from the [place] facility where the Encounter took place. Date/Time Smoking Status/Tobacco Use Comment F acility Jul 26, 2008 09:00 AM LIFETIME NON TOBACCO USER [facility] Apr 18, 2007 11:13 AM LIFETIME NON TOBACCO USER [facility] Jun 30, 2006 03:44 PM LIFETIME NON TOBACCO USER [facility] Advance Directives: All historical and current Section Date Range: From patient's date of to the date document was created. This section includes ALL of a patient's completed or amended [place] Advance and Rescinded Directives. The entries below indicate that a directive exists for the patient, but an actual copy is not included with this document. The data comes from all [place] facilities. Date Advance Directives Provider Source August 30, 2006 ADVANCE DIRECTIVE ARGENIS CRAMER [facility] Pathology Reports: +/- 30 days of the encounter Pathology Reports For cases when an order for pathology services may have been completed prior to the date of the Encounter, the report list includes the Pathology Reports that were completed up to 30 days before dateof the Encounter. For cases when an order for pathology services may have been completed after the date of the Encounter, the report list also includes the Pathology Reports that were completed up to30 days after date of the Encounter. The data comes from all [place] treatment facilities. Date/Time Pathology Report Provider Source Feb 24, 2023 09:09 AM LR SURGICAL PATHOL OGY REPORT: LOCAL TITLE: LR SURGICAL PATHOLOGY REPORT STANDARD TITLE: PATHOLOGY DIAGNOSTIC STUDY REPORT DATE OF NOTE: FEB 24, 2023@09:09:19 ENTRY DATE: FEB 24, 2023@09:09:19 AUTHOR: JON GRIGGS COSIGNER: URGENCY: STATUS: COMPLETED $APHDR - - - - - - - - - - - - - - - - - - - - - - - - - - - - - - - - - - - - - - - - MEDICAL RECORD SURGICAL PATHOLOGY - - - - - - - - - - - - - - - - - - - - - - - - - - - - - - - - - - - - - - - - PATHOLOGY REPORT Accession No. SP [id number] - - - - - - - - - - - - - - - - - - - - - - - - - - - - - - - - - - - - - - - - $TEXT Submitted by: Date obtained: Feb 17, 2023 - - - - - - - - - - - - - - - - - - - - - - - - - - - - - - - - - - - - - - - - Specimen (Received Feb 21, 2023 10:03): Left Arm - - - - - - - - - - - - - - - - - - - - - - - - - - - - - - - - - - - - - - - - BRIEF CLINICAL HISTORY: growth left arm - - - - - - - - - - - - - - - - - - - - - - - - - - - - - - - - - - - - - - - - PREOPERATIVE DIAGNOSIS: scc - - - - - - - - - - - - - - - - - - - - - - - - - - - - - - - - - - - - - - - - OPERATIVE FINDINGS: same - - - - - - - - - - - - - - - - - - - - - - - - - - - - - - - - - - - - - - - - POSTOPERATIVE DIAGNOSIS: same Surgeon/physician: NEVILLE BOSCH MD =-=-=-=-=-=-=-=-=-=-=-=-=- =-=-=-=-=-=-=-=-=-=-=-=-=- =-=-=-=-=-=-=-=-=-=-=-=-=- = - - - - - - - - - - - - - - - - - - - - - - - - - - - - - - - - - - - - - - - - PATHOLOGY REPORT Accession No. SP [id number] - - - - - - - - - - - - - - - - - - - - - - - - - - - - - - - - - - - - - - - - GROSS DESCRIPTION Specimen is received in formalin, labeled with the patient's name, Social Security Number, left arm and consists of a 1.5 x 1.2 x 0.3 cm irregular shave biopsy of white skin. Biopsy edge is inked blue. The specimen is serially sectioned. Specimen submitted entirely in 1 cassette. ABBEY/abbey Devlin, or my qualified designee, have supervised the pathologist printer assistant in the gross examination and description of the specimens. I have personally reviewed the irrigator gravity flow of the gross description and all specimen preparations referenced herein within 24 hours excluding weekends and holidays, and I have personally issued this report. DIAGNOSIS LEFT ARM, SKIN SHAVE BIOPSY: - INVASIVE SQUAMOUS CELL CARCINOMA. - Biopsy edge free from carcinoma. This case was shared with Dr. Bernard Adam and she agrees with the above diagnosis. AHR/JTB/ahr /es/ JON GRIGGS DO PATHOLOGIST Signed Feb 24, 2023@09:09 Performing Laboratory: Surgical Pathology Report Performed By: Lindsey CURTIS [facility] [CLIA# [id number]] [address] [place] [address] $FTR - - - - - - - - - - - - - - - - - - - - - - - - - - - - - - - - - - - - - - - - (End of report) JON GRIGGS MD [facility] Date Feb 23, 2023 - - - - - - - - - - - - - - - - - - - - - - - - - - - - - - - - - - - - - - - - GERI COUGHLIN STANDARD FORM 515 ID:[id number] SEX:M :1935 AGE: 87 LOC:ROSA PCP: /shelly/ JON GRIGGS DO PATHOLOGIST Signed: 02/24/2023 09:[address] [facility] Encounter Notes: All associated encounter notes This section contains the clinical notes associated to the Encounter. Date/Time Encounter Note(s) Provider Source Feb 15, 2023 03:18 PM PHARMACY NOTE: LOCAL TITLE: PHARMACY TRAVELING SCREENING NOTE STANDARD TITLE: PHARMACY NOTE DATE OF NOTE: FEB 15, 2023@15:18 ENTRY DATE: FEB 15, 2023@15:18:53 AUTHOR: ABELINO LEONG EXP COSIGNER: URGENCY: STATUS: COMPLETED The patient requested medication which they have been obtaining from another [place]. Their identity was verified by having them give their full name and social security number. They are assigned to the [facility] The patient is returning to the above area. [place]--> 24 ALLERGIES:Patient has answered [facility] PHARMACY INFORMATION OBTAINED FROM: Remote data from [facility]. MEDICATION NEEDED: PT HERE FOR THE WINTER AND FAILED TO REORDER HIS MEDICATION ON TIME. WILL DISPENSE 2 WEEK BRIDGE SUPPLY. Medication Profile - Remote Feb 15, 2023@15:18:13 Patient: GERI COUGHLIN ([id number]) : 1935 RX# DRUG ST QTY ISSUED LAST FILLED [facility] [id number] HYDROCHLOROTHIAZIDE 25MG/LISINOPRI A 90 03/23/22 02/14/23 SIG: TAKE 1 TABLET BY MOUTH EVERY MORNING FOR BLOOD PRESSURE. PROVIDER: [facility] ISSUE LAST REF DAY # RX # DRUG QTY ST DATE FILL REM SUP <No local prescriptions found.> [facility] [phone] ACTIVE 1 [id number] * HCTZ 25/LISINOPRIL 20MG TAB 90 A 12-13 11-06 0 90 [facility] ([phone] 2 [id number] CALCIPOTRIENE 0.005% TOP CREAM 60 E 11-19 08-15 0 30 3 [id number] FLUOROURACIL 5% CREAM 40 E 11-19 08-15 0 30 Medications(s) released for window pickup. The patient understands this is a one-time emergency supply to hold them over until they can contact their original [facility] and have their VA send all future medication. The patient understands all future fills must be handled through their original [place] instead of [place]. PBM PharmD Pharmacotherapy Rem V12: Care coordination Plan: ORDER AND DISPENSE MEDICATION FOR DEIRDRE BATES /shelly/ ABELINO LEONG PHARMD CLINICAL PHARMACIST Signed: 02/15/2023 15:23 ABELINO LEONG [facility]
--- OUTSIDE RECORDS SUMMARY | 2024-01-27 12:18 | XMS_ITS | Encounter Summary ---
Author Name [facility] [place] Address [address] [place] [address] Care Team Providers Care Lean Facilitator Name Role Phone JACKELYN GOMES Primary Care Provider Unavailabl e Insurance Providers: All historical and current Section [...] PART A Sep 09, 2002 PART A [id number] [phone] JOAQUIN COUGHLIN S PATIENT MEDICARE (WNR) MEDICARE (M) PART B Sep 09, 2002 PART B [id number] [phone] NULL,JOAQUIN S PATIENT MEDICARE (WNR) MEDICARE (M) PART A Sep 09, 2002 PART A [id number] JOAQUIN COUGHLIN S PATIENT MEDICARE (WNR) MEDICARE (M) PART B Sep 09, 2002 PART B [id number] JOAQUIN COUGHLIN S PATIENT Selected Encounter This section includes the information on record at [place] for the Encounter. Date/Time Encounter Type Encounter Description Reason Pro vider Source Feb 24, 2023 01:49 PM Outpatient Encounter COMMUNITY CARE CONSULT IHE Encounter Template Text not used by [place] Plan of Treatment: Future Appointments (+ 6 months) and Future Tests (+/- 45 days) The Plan of Treatment section includes future care activities for the patient from all [place] treatmentfacilities. This section includes future appointments and future orders which are active, pending or scheduled. Future Appointments This section includes appointments that were scheduled to occur 6 months from the date of the Encounter, up to a maximum of 20 appointments. The data comes from all [facility] facilities. Appointment Date/Time Appointment Type Appointme nt Facility Name Apr 19, 2023 01:30 PM AMBULATORY - NONE Lindsey CURTIS [facility] Active, Pending, and Scheduled Orders This section includes a listing of several types of active, pending, and scheduled orders, including clinic medications orders, diagnostic test orders, procedure orders and consult orders; where the start date of the order is 45 days before the date of the Encounter or 45 days after the date of theEncounter. The data comes from all [facility]. Test Date/Time Test Type Test Details Facility Name Feb 17, 2023 02:10 PM Consult Order COMMUNITY CARE-DERMATOLOGY MOHS Cons Parachute Packer's Choice [facility] Advance Directives: All historical and current Section Date Range: From patient's date of to the date document was created. This section includes ALL of a patient's completed or amended [place] Advance and Rescinded Directives. The entries below indicate that a directive exists for the patient, but an actual copy is not included with this document. The data comes from all [facility]. Date Advance Directives Provider Source August 30, 2006 ADVANCE DIRECTIVE ARGENIS CRAMER [facility] Pathology Reports: +/- 30 days of the [...] the Encounter. The data comes from all [facility] facilities. Date/Time Pathology Report Provider Source Feb 24, 2023 09:09 AM LR SURGICAL PATHOL OGDion REPORT: LOCAL TITLE: LR SURGICAL PATHOLOGY REPORT STANDARD TITLE: PATHOLOGY DIAGNOSTIC STUDY REPORT DATE OF NOTE: FEB 24, 2023@09:09:19 ENTRY DATE: FEB 24, 2023@09:09:19 AUTHOR: JON GRIGGS: URGENCY: STATUS: COMPLETED $APHDR - - - [...] sectioned. Specimen submitted entirely in 1 cassette. MORENO/moreno Devlin, or my qualified designee, have supervised the pathologist membership assistant in the gross examination and description of the specimens. I have personally reviewed the mobile therapist of the gross description and all specimen preparations referenced herein within 24 hours excluding weekends and holidays, and I have personally issued this report. DIAGNOSIS LEFT ARM, SKIN SHAVE BIOPSY: - INVASIVE SQUAMOUS CELL CARCINOMA. - Biopsy edge free from carcinoma. This case was shared with Dr. Bernard Adam and she agrees with the above diagnosis. AHR/JTB/ahr /shelly/ JON GRIGGS DO PATHOLOGIST Signed Feb 24, 2023@09:09 Performing Laboratory: Surgical Pathology Report Performed By: Lindsey CURTIS [facility] [CLIA# [id number]] [address] [place] [address] $FTR - - - - - - - - - - - - - - - - - - - - - - - - - - - - - - - - - - - - - - - - (End of report) JON GRIGGS MD [facility] Date Feb 23, 2023 - - - - - - - - - - - - - - - - - - - - - - - - - - - - - - - - - - - - - - - - GERI COUGHLIN STANDARD FORM 515 ID:[id number] SEX:M :1935 AGE: 87 LOC:ROSA PCP: /shelly/ JON GRIGGS DO PATHOLOGIST Signed: 02/24/2023 09:09 JON GRIGGS DEPT [facility] Encounter Notes: All associated encounter notes This section contains the clinical notes associated to the Encounter. 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 No Level of Care Coordination Complex/Chronic Care Coordination was determined from: Chart Review Facility Community Care Office Contact Care Coordination Point of Contact: VACC Assigned team to consult Services: Moderate Care Coordination Services Case Management, if appropriate Direct communications with interdisciplinary team Plan: - Services as indicated above - REFDOCS available in [facility] - Pending [place] contact and appointment. - care coordination communicated for [facility] staff to schedule. - Ongoing care and evaluation will be individualized based upon need and evaluation of recommendations of community provider /shelly/ NIDHI BROWN, RN MSN REGISTERED NURSE Signed: 02/24/2023 13:51 NIDHI BROWN [facility]
--- OUTSIDE RECORDS SUMMARY | 2024-01-27 12:20 | XMS_ITS | Encounter Summary ---
Author Name [facility] [place] Address [address] [place] [id number] Care Team Providers Care Physician Assistant Primary Care Name Role Phone SARIAH GOMES Primary Care Provider [facility] Insurance Providers: All historical and current [...] PART A Sep 09, 2002 PART A [id number] JOAQUIN COUGHLIN S PATIENT MEDICARE (WNR) MEDICARE (M) PART B Sep 09, 2002 PART B [id number] NULL,JOAQUIN S PATIENT MEDICARE (WNR) MEDICARE (M) PART A Sep 09, 2002 PART A [id number] NULLJOAQUIN S PATIENT MEDICARE (WNR) MEDICARE (M) PART B Sep 09, 2002 PART B [id number] JOAQUIN COUGHLIN S PATIENT Selected Encounter This section includes the information on record at [place] for the Encounter. Date/Time Encounter Type Encounter Description Reason Provider Source Jan 27, 2024 11:47 AM Outpatient Encounter ADMIN PAT ACTIVTIES (MASNONCT) KEY,ALEAH M IHE Encounter Template Text not used by [place] Plan of Treatment: Future Appointments (+ 6 months) and Future Tests (+/- 45 days) The Plan of Treatment section includes future care activities for the patient from all [place] [facility]. This section includes future appointments and future orders which are active, pending or scheduled. Future Appointments This section includes appointments that were scheduled to occur 6 months from the date of the Encounter, up to a maximum of 20 appointments. The data comes from all [facility] facilities. Appointment Date/Time Appointment Type Appointme nt Facility Name Jan 30, 2024 02:15 PM AMBULATORY - SURGERY ADDIE BULLOCK [facility] Feb 21, 2024 10:00 AM AMBULATORY - MEDICINE MARGRET AUGUSTINE [facility] Active, Pending, and Scheduled Orders This section includes a listing of several types of active, pending, and scheduled orders, including clinic medications orders, diagnostic test orders, procedure orders and consult orders; where the start date of the order is 45 days before the date of the Encounter or 45 days after the date of theEncounter. The data comes from all [facility]. Test Date/Time Test Type Test Details Facility Name Jan 18, 2024 04:23 PM Consult Order CARDIAC EC HO OUTPT-ALL SITES Cons Log Clerk's Choice [facility] Jan 19, 2024 09:44 AM Consult Order COMMUNITY CARE-NUCLEAR MEDICINE [facility] Jan 19, 2024 12:10 PM Consult Order COMMUNITY CARE-DERMATOLOGY [facility] Social History: Smoking Status (Most current) and Tobacco Use (All prior to encounter date) This section includes the most current, and the historical, smoking and tobacco- related health factors from the [place] facility where the Encounter took place. Current Smoking Status This section includes the most current smoking, or tobacco-related health factor, from the [place] facility where the Encounter took place. Date/Time Current Smoking Status Comment Facil ity Dec 14, 2023 11:30 AM VA-TOBACCO FORMER USER [facility] Tobacco Use History This section includes a history of the smoking, or tobacco-related health factors, that were collected on or before the date of the Encounter. The data comes from the [place] facility where the Encounter took place. Date/Time Smoking Status/Tobacco Use Comment F acility Dec 14, 2023 11:30 AM [place]-TOBACCO QUIT 15 YRS OR MORE [facility] Oct 13, 2022 01:30 PM VA-TOBACCO FORMER USER [facility] Oct 13, 2022 01:30 PM VA-TOBACCO QUIT 15 YRS OR MORE [facility] Jul 27, 2021 10:00 AM VA-TOBACCO FORMER USER [facility] Jul 27, 2021 10:00 AM VA-TOBACCO QUIT 15 YRS OR MORE [facility] Jan 02, 2020 09:00 AM VA-TOBACCO FORMER USER [facility] Jan 02, 2020 09:00 AM VA-TOBACCO QUIT 15 YRS OR MORE [facility] Jul 21, 2018 03:00 PM VA-TOBACCO FORMER USER [facility] Jul 21, 2018 03:00 PM VA-TOBACCO QUIT 15 YRS OR MORE [facility] Dec 24, 2016 08:01 AM FORMER TOBACCO USER 7Y OR GREATE R [facility] Dec 23, 2015 08:23 AM FORMER TOBACCO USE >1Y <7Y [facility] Dec 26, 2014 10:32 AM FORMER TOBACCO USER 7Y OR GREATE R [facility] August 13, 2013 08:22 AM LIFETIME NON-TOBACCO USER [facility] August 30, 2006 08:38 AM FORMER TOBACCO USER 7Y OR GREATE R [facility] Advance Directives: All historical and current Section Date Range: From patient's date of to the date document was created. This section includes ALL of a patient's completed or amended [place] Advance and Rescinded Directives. The entries below indicate that a directive exists for the patient, but an actual copy is not included with this document. The data comes from all [facility]. Date Advance Directives Provider Source August 30, 2006 ADVANCE DIRECTIVE ARGENIS CRAMER [facility] Pathology Reports: +/- 30 days of [...] the Encounter. The data comes from all [place] treatment facilities. Date/Time Pathology Report Provider Source Jan 06, 2024 11:16 AM LR SURGICAL PATHOL OGY REPORT: LOCAL TITLE: LR SURGICAL PATHOLOGY REPORT STANDARD TITLE: PATHOLOGY REPORT DATE OF NOTE: JAN 06, 2024@11:16:39 ENTRY DATE: JAN 06, 2024@11:16:39 AUTHOR: JOSE REESE COSIGNER: URGENCY: STATUS: COMPLETED $APHDR Reporting Lab: [facility] [CLIA# [id number]] [place] [address] - - - - - - - [...] - - - PATHOLOGY REPORT Accession No. [id number] - - - - - - - - - - - - - - - - - - - - - - - - - - - - - - - - - - - - - - - - $TEXT Submitted by: SAM SANCHES Date obtained: Jan 05, 2024 - - - - - - - - - - - - - - - - - - - - - - - - - - - - - - - - - - - - - - - - Specimen (Received Jan 05, 2024 11:57): 1. L INFERIOR HELIX 2. R UPPER BACK - - - - - - - - - - - - - - - - - - - - - - - - - - - - - - - - - - - - - - - - BRIEF CLINICAL HISTORY: 1. Keratotic pink papule. 2. Keratotic pink papule w maple leaf pigment. Procedure: 1,2. Shave - - - - - - - - - - - - - - - - - - - - - - - - - - - - - - - - - - - - - - - - PREOPERATIVE DIAGNOSIS: - - - - - - - - - - - - - - - - - - - - - - - - - - - - - - - - - - - - - - - - OPERATIVE FINDINGS: - - - - - - - - - - - - - - - - - - - - - - - - - - - - - - - - - - - - - - - - POSTOPERATIVE DIAGNOSIS: Surgeon/physician: SAM SANCHES =-=-=-=-=-=-=-=-=-=-=-=-=-= -=-=-=-=-=-=-=-=-=-=-=-=-=- =-=-=-=-=-=-=-=-=-=-=-=-= - - - - - - - - - - - - - - - - - - - - - - - - - - - - - - - - - - - - - - - - PATHOLOGY REPORT Accession No. [id number] - - - - - - - - - - - - - - - - - - - - - - - - - - - - - - - - - - - - - - - - GROSS DESCRIPTION: The requisition form and specimen(s) identification is confirmed. 1. The specimen is received in formalin labeled left inferior helix and consists of a shave biopsy of a scaly maher nodule measuring 0.7 x 0.7 x 0.2 cm. The specimen is inked. CE. 2. The specimen is received in formalin labeled right upper back and consists of a shave biopsy measuring 0.8 x 0.8 x 0.2 cm. The skin surface has a central maher nodule measuring 0.5 x 0.5 x 0.1 cm. The specimen is inked. CE. [facility]: Microscopic examination performed. CI. 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 STAFF PATHOLOGIST Signed Jan 06, 2024@11:16 Performing Laboratory: Surgical Pathology Report Performed By: [facility] [CLIA# [id number]] [place] [address] $FTR - - - - - - - - - - - - - - - - - - - - - - - - - - - - - - - - - - - - - - - - (End of report) JOSE REESE MD adithya Date Jan 06, 2024 - - - - - - - - - - - - - - - - - - - - - - - - - - - - - - - - - - - - - - - - NULLGERI STANDARD FORM 515 ID:[id number] SEX:M :1935 AGE: 88 LOC:[id number] PCP: Sariah Gomes MD /shelly/ JOSE REESE M.D. STAFF PATHOLOGIST Signed: 01/06/2024 11:16 JOSE REESE [facility] Encounter Notes: All associated encounter notes This section contains the clinical notes associated to the Encounter. Date/Time Encounter Note(s) Provider Source Jan 27, 2024 11:47 AM NONVA NOTE: LOCAL TITLE: [facility]ITY [facility] SELF PRESENTING CARE COORD PLAN STANDARD TITLE: NONVA NOTE DATE OF NOTE: JAN 27, 2024@11:47 ENTRY DATE: JAN 27, 2024@11:48:04 AUTHOR: SARA BARBOSA EXP COSIGNER: URGENCY: STATUS: COMPLETED Emergency Notification Intake Date Presenting to the Facility: Jan Method of Contact: Phone Centralized Call Center Notified [facility] Hospital Name: Hospital: [facility] Address: City: [place] State: [place] Zip Code: Phone : [facility] Facility Point of Contact: Name: DR AQUINO Chief complaint: UNSTABLE ANGINA Primary Diagnosis: Disposition Unknown at time of intake note entry SEEKING CARDIAC BED FOR TO [facility]. PLEASE CONTACT DR AQUINO @ [phone]. /shelly/ SARA BARBOSA WINDOW CLERK Signed: 01/27/2024 11:51 Receipt Acknowledged By: 01/27/2024 11:57 /es/ HORACE ALMANZA RN inventory controller Alarm Operator SARA BARBOSA [facility]
--- OUTSIDE RECORDS SUMMARY | 2024-01-27 12:20 | XMS_ITS | Encounter Summary ---
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 Date/Time Encounter Type Encounter Description Reason Provider Source Jan 06, 2024 11:16 AM Outpatient Encounter EVENT (HISTORICAL) JOSE REESE Encounter Template Text not used by [place] Plan of Treatment: Future Appointments (+ 6 months) and Future Tests (+/- 45 days) The Plan of Treatment section includes future care activities for the patient from all [place] [facility]. This section includes future appointments and future orders which are active, pending or scheduled. Future Appointments This section includes appointments that were scheduled to occur 6 months from the date of the Encounter, up to a maximum of 20 appointments. The data comes from all [place] treatment [facility]. Appointment Date/Time Appointment Type Appointme nt Facility Name Jan 10, 2024 12:00 PM AMBULATORY - NONE [facility] Jan 11, 2024 01:30 PM AMBULATORY - MEDICINE [facility] Jan 27, 2024 11:47 AM AMBULATORY - NONE [facility] Jan 30, 2024 02:15 PM AMBULATORY - SURGERY [facility] Feb 21, 2024 10:00 AM AMBULATORY - MEDICINE [facility] Active, Pending, and Scheduled Orders This section includes a listing of several types of active, pending, and scheduled orders, including clinic medications orders, diagnostic test orders, procedure orders and consult orders; where the start date of the order is 45 days before the date of the Encounter or 45 days after the date of theEncounter. The data comes from all [facility]. 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 Radiology Reports and Pathology Reports are provided separately, in subsequent sections. Lab Results This section contains the Chemistry/Hematology Results that were resulted 30 days before or 30 daysafter the date of the Encounter. Date/Time Source Result Type Result - Unit Interpretation Reference Range Comment Dec 14, 2023 12:33 PM [facility] B 12 Specimen Type: SERUM No comment entered. Ordering Provider: MOLLY GOMES Report Released Date/Time: Dec 14, 2023 12:10 PM Reporting Lab: [facility] [address] [facility] [address] Performing Lab: [facility] [address] B 12 642 pg/mL 213-816 Dec 14, 2023 12:33 PM [facility] TSH W/REFLEX TO FREE T4 Specimen Type: PLASMA No comment entered. Ordering Provider: MOLLY GOMES Report Released Date/Time: Dec 14, 2023 12:10 PM Reporting Lab: [facility] [address] Performing Lab: [facility] [address] TSH 5.10 u[IU]/mL H 0.35-4.94 FREE T4 0.83 ng/dL 0.70-1.48 Dec 14, 2023 12:33 PM [facility] IRON GROUP Specimen Type: SERUM No comment entered. Ordering Provider: MOLLY GOMES Report Released Date/Time: Dec 14, 2023 12:10 PM Reporting Lab: [facility] [address] Performing Lab: [facility] [address] IRON 95 ug/dL 65-175 TIBC,CALCULATED 276 ug/dL 250-425 FERRITIN 495.9 ng/mL H 21.8-274.7 IRON SATURATION 34 20-50 TRANSFERRIN 221 mg/dL 163-382 Dec 14, 2023 12:33 PM [facility] LIPID PANEL,NON-FASTING Specimen Type: PLASMA No comment entered. Ordering Provider: MOLLY GOMES Report Released Date/Time: Dec 14, 2023 12:10 PM Reporting Lab: [facility] [address] Performing Lab: [facility] [address] CHOLESTEROL 186 mg/dL <199 .HDL 49 mg/dL >40 LDL CALCULATION 116 mg/dL H <99 VLDL CALCULATION 21 mg/dL <29 NON HDL CHOLESTEROL 137 mg/dL H <129 TRIG(NON FASTING) 106 mg/dL <149 Dec 14, 2023 12:33 PM [facility] FOLATE Specimen Type: SERUM No comment entered. Ordering Provider: MOLLY GOMES Report Released Date/Time: Dec 14, 2023 12:10 PM Reporting Lab: [facility] [address] Performing Lab: [facility] [address] FOLATE 11.5 ng/mL >7.0 Dec 14, 2023 12:33 PM [facility] HEMOGLOBIN A1C Specimen Type: BLOOD Comment: Values obtained from A1C measurements can vary. For typical A1C assays, a reported value of 7.0 could actually be between 6.7 and 7.3 if measured by a reference method. A reported value of 9.0 could actually be between 8.7 and 9.3. Ref: http://www.ng sp.org/CAPdat a.asp Ordering Provider: MOLLY GOMES Report Released Date/Time: Dec 14, 2023 12:10 PM Reporting Lab: [facility] [address] Performing Lab: [facility] [address] HEMOGLOBIN A1C 5.3 4.0-6.0 Dec 14, 2023 12:33 PM [facility] CBC Specimen Type: BLOOD No comment entered. Ordering Provider: MOLLY GOMES Report Released Date/Time: Dec 14, 2023 12:10 PM Reporting Lab: [facility] [address] Performing Lab: [facility] [address] WBC 5.5 4.0-11.0 RBC 4.59 L 4.60-6.20 HGB 14.0 g/dL 13.5-17.9 HCT 43.0 41-54 MCV 93.7 fL 80-100 MCH 30.5 pg 27-33 MCHC 32.6 g/dL 32.0-37.5 PLT 184 150-400 MPV 10.6 fL H 7.4-10.4 RDW 12.7 11.5-14.5 Dec 14, 2023 12:33 PM [facility] COMPREHENSIVE METABOLIC PANEL+MG Specimen Type: PLASMA No comment entered. Ordering Provider: MOLLY GOMES Report Released Date/Time: Dec 14, 2023 12:10 PM Reporting Lab: [facility] [address] Performing Lab: [facility] [address] CREATININE 1.2 mg/dL 0.7-1.2 UREA NITROGEN 23 mg/dL 8-26 GLUCOSE 95 mg/dL 70-100 SODIUM 143 mmol/L 136-145 POTASSIUM 4.7 mmol/L 3.5-5.1 CHLORIDE 108 mmol/L H 98-107 CO2 28 mmol/L 22-29 CALCIUM 9.5 mg/dL 8.4-10.2 PROTEIN,TOTAL 7.1 g/dL 6.4-8.3 ALBUMIN 4.2 g/dL 3.5-5.2 BILIRUBIN, TOTAL 0.6 mg/dL 0.2-1.2 MAGNESIUM 2.2 mg/dL 1.6-2.6 ANION GAP 7 mmol/L 5-15 ALKALINE PHOSPHATASE 67 U/L 40-150 ALT/SGPT 12 U/L <44 AST/SGOT 24 U/L 11-34 .CREAT EGFR(CKD-EPI) 59 L >60 Social History: Smoking Status (Most current) and Tobacco Use (All prior to encounter date) This section includes the most current, and the historical, smoking and tobacco- related health factors from the [place] facility where the Encounter took place. Current Smoking Status This section includes the most current smoking, or tobacco-related health factor, from the [place] facility where the Encounter took place. Date/Time Current Smoking Status Comment Facil ity Dec 14, 2023 11:30 AM VA-TOBACCO FORMER USER [facility] Tobacco Use History This section includes a history of the smoking, or tobacco-related health factors, that were collected on or before the date of the Encounter. The data comes from the [place] facility where the Encounter took place. Date/Time Smoking Status/Tobacco Use Comment F acility Dec 14, 2023 11:30 AM VA-TOBACCO QUIT 15 YRS OR MORE [facility] Oct 13, 2022 01:30 PM VA-TOBACCO FORMER USER [facility] Oct 13, 2022 01:30 PM VA-TOBACCO QUIT 15 YRS OR MORE [facility] Jul 27, 2021 10:00 AM VA-TOBACCO FORMER USER [facility] Jul 27, 2021 10:00 AM VA-TOBACCO QUIT 15 YRS OR MORE [facility] Jan 02, 2020 09:00 AM VA-TOBACCO FORMER USER [facility] Jan 02, 2020 09:00 AM VA-TOBACCO QUIT 15 YRS OR MORE [facility] Jul 21, 2018 03:00 PM VA-TOBACCO FORMER USER [facility] Jul 21, 2018 03:00 PM VA-TOBACCO QUIT 15 YRS OR MORE [facility] Dec 24, 2016 08:01 AM FORMER TOBACCO USER 7Y OR GREATE R [facility] Dec 23, 2015 08:23 AM FORMER TOBACCO USE >1Y <7Y [facility] Dec 26, 2014 10:32 AM FORMER TOBACCO USER 7Y OR GREATE R [facility] August 13, 2013 08:22 AM LIFETIME NON-TOBACCO USER [facility] August 30, 2006 08:38 AM FORMER TOBACCO USER 7Y OR KIEL R [facility] Advance Directives: All historical and current Section Date Range: From patient's date of to the date document was created. This section includes ALL of a patient's completed or amended [place] Advance and Rescinded Directives. The entries below indicate that a directive exists for the patient, but an actual copy is not included with this document. The data comes from all [place] facilities. Date Advance Directives Provider Source August 30, 2006 ADVANCE DIRECTIVE ARGENIS CRAMER [facility] Pathology Reports: +/- 30 days of the [...] the Encounter. The data comes from all [place] treatment facilities. Date/Time Pathology Report Provider Source Jan 06, 2024 11:16 AM LR SURGICAL PATHOL OGY REPORT: LOCAL TITLE: LR SURGICAL PATHOLOGY REPORT STANDARD TITLE: PATHOLOGY REPORT DATE OF NOTE: JAN 06, 2024@11:16:39 ENTRY DATE: JAN 06, 2024@11:16:39 AUTHOR: JOSE REESE COSIGNER: URGENCY: STATUS: COMPLETED $APHDR Reporting Lab: [facility] [CLIA# [id number]] [place] [address] - - - - - - - [...] - - - PATHOLOGY REPORT Accession No. [id number] - - - - - - [...] - PATHOLOGY REPORT Accession No. [id number] - - - - - - [...] 0.1 cm. The specimen is inked. CE. (D[facility]: Microscopic examination performed. CI. 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 STAFF PATHOLOGIST Signed Jan 06, 2024@11:16 Performing Laboratory: Surgical Pathology Report Performed By: [facility] [CLIA# [id number]] [place] [address] $FTR - - - - - - [...] - - - - - - - MADYSONGERI NUNEZ STANDARD FORM 515 ID:[id number] SEX:M :1935 AGE: 88 LOC:[id number] PCP: Sariah Gomes MD /shelly/ JOSE REESE M.D. STAFF PATHOLOGIST Signed: 01/06/2024 11:16 JOSE REESE [facility] Encounter Notes: All associated encounter notes This section contains the clinical notes associated to the Encounter. Date/Time Encounter Note(s) Provider Source Jan 06, 2024 11:16 AM PATHOLOGY REPORT: LOCAL TITLE: LR SURGICAL PATHOLOGY REPORT STANDARD TITLE: PATHOLOGY REPORT DATE OF NOTE: JAN 06, 2024@11:16:39 ENTRY DATE: JAN 06, 2024@11:16:39 AUTHOR: IWAMOTO,YOLIS EXP COSIGNER: URGENCY: STATUS: COMPLETED $APHDR Reporting Lab: [facility] [CLIA# [id number]] [place] [address] - - - - - - - [...] - - - PATHOLOGY REPORT Accession No. [id number] - - - - - - - [...] - PATHOLOGY REPORT Accession No. [id number] - - - - - - [...] 0.1 cm. The specimen is inked. CE. (D[facility]: Microscopic examination performed. CI. 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 STAFF PATHOLOGIST Signed Jan 06, 2024@11:16 Performing Laboratory: Surgical Pathology Report Performed By: [facility] [CLIA# [id number]] [place] [address] $FTR - - - - - - [...] - - - - - - - [facility],GERI NUNEZ STANDARD FORM 515 ID:[id number] SEX:M :1935 AGE: 88 LOC:[id number] PCP: Sariah Gomes MD /shelly/ JOSE REESE M.D. STAFF PATHOLOGIST Signed: 01/06/2024 11:16 JOSE REESE [facility]
--- OUTSIDE RECORDS SUMMARY | 2024-01-27 12:20 | XMS_ITS | Encounter Summary ---
Author Name [facility] ([place]) Organization [facility] Address [address] [place] [id number] Care Team Providers Care Army Manager Name Role Phone SARIAH GOMES [facility] Providers: All historical and current [...] PART A Sep 09, 2002 PART A [id number] [phone] JOAQUIN COUGHLIN S PATIENT MEDICARE (WNR) MEDICARE (M) PART B Sep 09, 2002 PART B [id number] MADYSON,JOAQUIN S PATIENT MEDICARE (WNR) MEDICARE (M) PART A Sep 09, 2002 PART A [id number] JOAQUIN COUGHLIN S PATIENT MEDICARE (WNR) MEDICARE (M) PART B Sep 09, 2002 PART B [id number] JOAQUIN COUGHLIN S PATIENT Selected Encounter This section includes the information on record at ME for the Encounter. Date/Time Encounter Type Encounter Description Reason Provider Source Dec 14, 2023 11:30 AM OFFICE O/P EST HI 40 MIN PRIMARY CARE/MEDICINE ICD-10-CM K59.00 Constipation, unspecified SARIAH GOMES Oneyda Encounter Template Text not used by ME Assessments - Encounter Diagnoses This section includes the primary and secondary diagnoses documented for the Encounter. Date/Time Primary/Secondary Diagnosis Diagnosis Name Provider Source Dec 14, 2023 12:36 PM PRIMARY Constipation, unspecified NICOLE GOMESL Y Susana [facility] Dec 14, 2023 12:36 PM SECONDARY Abnormal weight loss NICOLE GOMESL Y H [facility] Dec 14, 2023 12:36 PM SECONDARY Chronic kidney disease, unspecified NICOLE GOMESL Y H [facility] Dec 14, 2023 12:36 PM SECONDARY Dysphagia, unspecified NICOLE GOMESL Y H [facility] Dec 14, 2023 12:36 PM SECONDARY Hyperlipidemia, unspecified NICOLE GOMESL Y H [facility] Dec 14, 2023 12:36 PM SECONDARY Hypertensive chronic kidney disease w stg 1-4/unsp chr kdny NICOLE GOMESL Y Susana [facility] Dec 14, 2023 12:36 PM SECONDARY Hypothyroidism, unspecified NICOLE GOMESL Y Susana [facility] Plan of Treatment: Future Appointments (+ 6 months) and Future Tests (+/- 45 days) The Plan of Treatment section includes future care activities for the patient from [facility] This section includes future appointments and future orders which are active, pending or scheduled. Future Appointments This section includes appointments that were scheduled to occur 6 months from the date of the Encounter, up to a maximum of 20 appointments. The data comes from all [facility]. Appointment Date/Time Appointment Type Appointme nt Facility Name Jan 05, 2024 08:00 AM AMBULATORY - SURGERY [facility] Jan 10, 2024 12:00 PM AMBULATORY - NONE [facility] Jan 11, 2024 01:30 PM AMBULATORY - MEDICINE [facility] Jan 27, 2024 11:47 AM AMBULATORY - NONE [facility] Jan 30, 2024 02:15 PM AMBULATORY - SURGERY [facility] Feb 21, 2024 10:00 AM AMBULATORY - MEDICINE [facility] Active, Pending, and Scheduled Orders This section includes a listing of several types of active, pending, and scheduled orders, including clinic medications orders, diagnostic test orders, procedure orders and consult orders; where the start date of the order is 45 days before the date of the Encounter or 45 days after the date of theEncounter. The data comes from all [place] treatment facilities. Test Date/Time Test Type Test Details Facility Name Jan 18, 2024 04:23 PM Consult Order CARDIAC EC HO OUTPT-ALL SITES Cons [employer] [facility] Jan 19, 2024 09:44 AM Consult Order COMMUNITY CARE-NUCLEAR MEDICINE Cons [employer] [facility] Jan 19, 2024 12:10 PM Consult Order COMMUNITY CARE-DERMATOLOGY Cons [facility] Lab Results: +/- 30 days of the encounter This section includes the Chemistry and Hematology Lab Results on record with ME for the patient. Radiology Reports and Pathology Reports are provided separately, in subsequent sections. Lab Results This section contains the Chemistry/Hematology Results that were resulted 30 days before or 30 daysafter the date of the Encounter. Date/Time Source Result Type Result - Unit Interpretation Reference Range Comment Dec 14, 2023 12:33 PM [facility] B 12 Specimen Type: SERUM No comment entered. Ordering Provider: MOLLY GOMES Report Released Date/Time: Dec 14, 2023 12:10 PM Reporting Lab: [facility] [id number] Performing Lab: [facility] [id number] B 12 642 pg/mL 213-816 Dec 14, 2023 12:33 PM [facility] IRON GROUP Specimen Type: SERUM No comment entered. Ordering Provider: MOLLY GOMES Report Released Date/Time: Dec 14, 2023 12:10 PM Reporting Lab: [facility] [phone] Performing Lab: [facility] [phone] IRON 95 ug/dL 65-175 TIBC,CALCULATED 276 ug/dL 250-425 FERRITIN 495.9 ng/mL H 21.8-274.7 IRON SATURATION 34 20-50 TRANSFERRIN 221 mg/dL 163-382 Dec 14, 2023 12:33 PM [facility] TSH W/REFLEX TO FREE T4 Specimen Type: PLASMA No comment entered. Ordering Provider: MOLLY GOMES Report Released Date/Time: Dec 14, 2023 12:10 PM Reporting Lab: [facility] [phone] Performing Lab: [facility] [id number] TSH 5.10 u[IU]/mL H 0.35-4.94 FREE T4 0.83 ng/dL 0.70-1.48 Dec 14, 2023 12:33 PM [facility] FOLATE Specimen Type: SERUM No comment entered. Ordering Provider: MOLLY GOMES Report Released Date/Time: Dec 14, 2023 12:10 PM Reporting Lab: [facility] [id number] Performing Lab: [facility] [address] FOLATE 11.5 ng/mL >7.0 Dec 14, 2023 12:33 PM [facility] LIPID PANEL,NON-FASTING Specimen Type: PLASMA No comment entered. Ordering Provider: MOLLY GOMES Report Released Date/Time: Dec 14, 2023 12:10 PM Reporting Lab: [facility] [phone] Performing Lab: [facility] [phone] CHOLESTEROL 186 mg/dL <199 .HDL 49 mg/dL >40 LDL CALCULATION 116 mg/dL H <99 VLDL CALCULATION 21 mg/dL <29 NON HDL CHOLESTEROL 137 mg/dL H <129 TRIG(NON FASTING) 106 mg/dL <149 Dec 14, 2023 12:33 PM [facility] HEMOGLOBIN A1C Specimen Type: BLOOD [...] Dec 14, 2023 12:10 PM Reporting Lab: [facility] [phone] Performing Lab: [facility] [phone] HEMOGLOBIN A1C 5.3 4.0-6.0 Dec 14, 2023 12:33 PM [facility] CBC Specimen Type: BLOOD No comment entered. Ordering Provider: MOLLY GOMES Report Released Date/Time: Dec 14, 2023 12:10 PM Reporting Lab: [facility] [id number] Performing Lab: [facility] [phone] WBC 5.5 4.0-11.0 RBC 4.59 L 4.60-6.20 HGB 14.0 g/dL 13.5-17.9 HCT 43.0 41-54 MCV 93.7 fL 80-100 MCH 30.5 pg 27-33 MCHC 32.6 g/dL 32.0-37.5 PLT 184 150-400 MPV 10.6 fL H 7.4-10.4 RDW 12.7 11.5-14.5 Dec 14, 2023 12:33 PM [facility] COMPREHENSIVE METABOLIC PANEL+MG Specimen Type: PLASMA No comment entered. Ordering Provider: MOLLY GOMES Report Released Date/Time: Dec 14, 2023 12:10 PM Reporting Lab: [facility] [phone] Performing Lab: [facility] [phone] CREATININE 1.2 mg/dL 0.7-1.2 UREA NITROGEN 23 [...] U/L 11-34 .CREAT EGFR(CKD-EPI) 59 L >60 Vital Signs: All taken on the encounter date This section contains inpatient and outpatient Vital Signs collected on the date of the Encounter. Date/Time Temperature Pulse Blood Pressure Respiratory Rate SP02 Pain Height Weight Body Mass Index Source Dec 14, 2023 11:38 AM 150/83 [facility] Dec 14, 2023 11:26 AM 98.8 50 156/82 [address] [facility] Social History: Smoking Status (Most current) and Tobacco Use (All prior to encounter date) This section includes the most current, and the historical, smoking and tobacco- related health factors from the ME facility where the Encounter took place. Current Smoking Status This section includes the most current smoking, or tobacco-related health factor, from the ME facility where the Encounter took place. Date/Time Current Smoking Status Comment Facil ity Dec 14, 2023 11:30 AM VA-TOBACCO FORMER USER [facility] Tobacco Use History This section includes a history of the smoking, or tobacco-related health factors, that were collected on or before the date of the Encounter. The data comes from the ME facility where the Encounter took place. Date/Time Smoking Status/Tobacco Use Comment F acility Dec 14, 2023 11:30 AM VA-TOBACCO QUIT 15 YRS OR MORE [facility] Oct 13, 2022 01:30 PM VA-TOBACCO FORMER USER [facility] Oct 13, 2022 01:30 PM VA-TOBACCO QUIT 15 YRS OR MORE [facility] Jul 27, 2021 10:00 AM VA-TOBACCO FORMER USER [facility] Jul 27, 2021 10:00 AM VA-TOBACCO QUIT 15 YRS OR MORE [facility] Jan 02, 2020 09:00 AM VA-TOBACCO FORMER USER [facility] Jan 02, 2020 09:00 AM VA-TOBACCO QUIT 15 YRS OR MORE [facility] Jul 21, 2018 03:00 PM VA-TOBACCO FORMER USER [facility] Jul 21, 2018 03:00 PM VA-TOBACCO QUIT 15 YRS OR MORE [facility] Dec 24, 2016 08:01 AM FORMER TOBACCO USER 7Y OR GREATE R [facility] Dec 23, 2015 08:23 AM FORMER TOBACCO USE >1Y <7Y [facility] Dec 26, 2014 10:32 AM FORMER TOBACCO USER 7Y OR GREATE R [facility] August 13, 2013 08:22 AM LIFETIME NON-TOBACCO USER [facility] August 30, 2006 08:38 AM FORMER TOBACCO USER 7Y OR GREATE R [facility] Advance Directives: All historical and current Section Date Range: From patient's date of to the date document was created. This section includes ALL of a patient's completed or amended [place] Advance and Rescinded Directives. The entries below indicate that a directive exists for the patient, but an actual copy is not included with this document. The data comes from all [facility]. Date Advance Directives Provider Source August 30, 2006 ADVANCE DIRECTIVE ARGENIS CRAMER S [facility] Pathology Reports: +/- 30 days [...] the Encounter. The data comes from all [place] treatment facilities. Date/Time Pathology Report Provider Source Jan 06, 2024 11:16 AM LR SURGICAL PATHOL OGY REPORT: LOCAL TITLE: LR SURGICAL PATHOLOGY REPORT STANDARD TITLE: PATHOLOGY REPORT DATE OF NOTE: JAN 06, 2024@11:16:39 ENTRY DATE: JAN 06, 2024@11:16:39 AUTHOR: JOSE REESE COSIGNER: URGENCY: STATUS: COMPLETED $APHDR Reporting Lab: [facility] [CLIA# [id number]] [place] [address] - - - - - - - [...] - PATHOLOGY REPORT Accession No. [id number] - - - - - - - [...] - PATHOLOGY REPORT Accession No. [id number] - - - - - - - [...] 0.1 cm. The specimen is inked. CE. [facility] DES[facility]: Microscopic examination performed. CI. 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 STAFF PATHOLOGIST Signed Jan 06, 2024@11:16 Performing Laboratory: Surgical Pathology Report Performed By: [facility] [CLIA# [id number]] [place] [address] $FTR - - - - - - [...] - - GERI COUGHLIN STANDARD FORM 515 ID:[id number] SEX:M :1935 AGE: 88 LOC:[id number] PCP: Sariah Gomes MD /shelly/ JOSE REESE M.D. STAFF PATHOLOGIST Signed: 01/06/2024 11:16 JOSE REESE [facility] Encounter Notes: All associated encounter notes This section contains the clinical notes associated to the Encounter. Date/Time Encounter Note(s) Provider Source Dec 14, 2023 05:15 PM LETTERS: LOCAL TITLE: FOLLOW UP RESULTS LETTER STANDARD TITLE: LETTERS DATE OF NOTE: DEC 14, 2023@17:15 ENTRY DATE: DEC 14, 2023@17:15:52 AUTHOR: SARIAH GOMES EXP COSIGNER: URGENCY: STATUS: [place] [address] Dec GERI COUGHLIN [id number] [facility] [address] Dear : I am writing to inform you of the results of testing that you had done recently at the [facility]. Overall your test results are acceptable. One of your thyroid tests is slightly abnormal however, the other one is normal. This hasn't changed much since last year. I think it is unlikely to be related to your constipation. Collection time: Dec 14, 2023@12:33 Test Name Result Units Range --------- ------ ----- ----- TSH 5.10 H uIU/mL 0.35 - 4.94 FREE T4 0.83 ng/dL 0.70 - 1.48 SODIUM 143 mmol/L 136 - 145 POTASSIUM 4.7 mmol/L 3.5 - 5.1 CHLORIDE 108 H mmol/L 98 - 107 CO2 28 mmol/L 22 - 29 ANION GAP 7 mmol/L 5 - 15 GLUCOSE 95 mg/dL 70 - 100 UREA NITROGEN 23 mg/dL 8 - 26 CREATININE 1.2 mg/dL 0.7 - 1.2 .CREAT EGFR(CKD-EPI) 59 L Ref: >=60 PROTEIN,TOTAL 7.1 g/dL 6.4 - 8.3 ALBUMIN 4.2 g/dL 3.5 - 5.2 CALCIUM 9.5 mg/dL 8.4 - 10.2 MAGNESIUM 2.2 mg/dL 1.6 - 2.6 BILIRUBIN, TOTAL 0.6 mg/dL 0.2 - 1.2 ALKALINE PHOSPHATASE 67 U/L 40 - 150 AST/SGOT 24 U/L 11 - 34 ALT/SGPT 12 U/L Ref: <=44 CHOLESTEROL 186 mg/dL Ref: <=199 TRIG(NON FASTING) 106 mg/dL Ref: <=149 .HDL 49 mg/dL Ref: >=40 LDL CALCULATION 116 H mg/dL Ref: <=99 HEMOGLOBIN A1C 5.3 % 4.0 - 6.0 WBC 5.5 10x3/uL 4.0 - 11.0 RBC 4.59 L 10x6/uL 4.60 - 6.20 HGB 14.0 g/dL 13.5 - 17.9 HCT 43.0 % 41 - 54 MCV 93.7 fL 80 - 100 MCH 30.5 pg 27 - 33 MCHC 32.6 g/dL 32.0 - 37.5 RDW 12.7 % 11.5 - 14.5 PLT 184 10x3/uL 150 - 400 B 12 642 pg/mL 213 - 816 FOLATE 11.5 ng/mL Ref: >=7.0 IRON 95 ug/dL 65 - 175 TRANSFERRIN 221 mg/dL 163 - 382 TIBC,CALCULATED 276 ug/dL 250 - 425 IRON SATURATION 34 % 20 - 50 FERRITIN 495.9 H ng/mL 21.8 - 274.7 If you have any further questions or problems, please contact our nursing staff or provider at the following number: [phone]. Sincerely, Sariah Gomes MD Physician SARIAH GOMES [facility] Dec 14, 2023 11:30 AM INTERNAL MEDICINE OUTPATIENT NOTE: LOCAL TITLE: MEDICINE CLINIC NURSING NOTE STANDARD TITLE: INTERNAL MEDICINE OUTPATIENT NOTE DATE OF NOTE: DEC 14, 2023@11:30 ENTRY DATE: DEC 14, 2023@11:30:09 AUTHOR: JEFFERY CANTU EXP COSIGNER: URGENCY: STATUS: COMPLETED TYPE OF VISIT: Appointment Check In Type of appointment: In-person appointment REASON FOR VISIT: Routine check up ALLERGIES: Patient has answered NKA VITAL SIGNS: Blood Pressure: 156/82 (12/14/2023 11:26)BP150/83 will alert M.D Pulse: 50 (12/14/2023 11:26) Respiration: 16 (12/14/2023 11:26) Temperature: 98.8 F [37.1 C] (12/14/2023 11:26) Weight: 153 lb [69.40 kg] (12/14/2023 11:26) Height: 67 in [170.2 cm] (10/13/2022 13:04) BMI: 24.0 O2 Sat: 96% (12/14/2023 11:26) Pain: 0 (12/14/2023 11:26) PAIN SCREEN: Patient is not having significant pain that they wish to discuss with their provider today. MEDICATION Over the Counter/Herbal Medications: The patient states that they take some outside medications and/or herbals. Suicide Screen: C-SSRS Screening [place] Suicide Severity Rating Scale (C-SSRS) screener 1. Over the past month, have you wished you were or wished you could go to sleep and not wake up? No 2. Over the past month, have you had any actual thoughts of killing yourself? No 3. Over the past month, have you been thinking about how you might do this? Response not required due to responses to other questions. 4. Over the past month, have you had these thoughts and had some intention of acting on them? Response not required due to responses to other questions. 5. Over the past month, have you started to work out or worked out the details of how to kill yourself? Response not required due to responses to other questions. 6. If yes, at any time in the past month did you intend to carry out this plan? Response not required due to responses to other questions. 7. In your lifetime, have you ever done anything, started to do anything, or prepared to do anything to end your life (for example, collected pills, obtained a gun, gave away valuables, went to the roof but didn't jump)? No 8. If YES, was this within the past 3 months? Response not required due to responses to other questions. Depression Screening: Perform PHQ-2 A PHQ-2 screen was performed. The score was 0 which is a negative screen for depression. Over the past two weeks, how often have you been bothered by the following problems? 1. Little interest or pleasure in doing things Not at all 2. Feeling down, depressed, or hopeless Not at all Alcohol Use Screen (AUDIT-C): Alcohol Screen: SCREEN FOR ALCOHOL (AUDIT-C) An alcohol screening test (AUDIT-C) was negative (score=1). 1. How often did you have a drink containing alcohol in the past year? Consider a drink to be a 12 ounce can or bottle of regular beer, 8 ounces of malt liquor, a 5 ounce glass of table wine, or a 1.5 ounce shot of liquor (like scotch, gin, or vodka). Monthly or less 2. How many drinks containing alcohol did you have on a typical day when you were drinking in the past year? One or two drinks 3. How often did you have six or more drinks on one occasion in the past year? Never Tobacco Use Screening: The patient is a former tobacco user. The patient quit fifteen or more years ago. Homelessness/Food Insecurity Screen: In the past 2 months, have you been living in stable housing that you own, rent, or stay in as part of a household? Yes - Living in stable housing. Are you worried or concerned that in the next 2 months you may NOT have stable housing that you own, rent, or stay in as part of a household? No - Not worried about housing near future [facility] [place] reports the following: Within the past 12 months, you worried whether your food would run out before you got money to buy more. Never true Within the past 12 months, the food you bought just didn't last and you didn't have money to get more. Never true Food Assistance Programs [facility] Food Assistance [facility] Annual Screening: Whole Health Screen is due OR due soon (within 90 days). Whole Health Screening Why is addressing your overall health important to you? catch be for it happen What do you want your health for (why do you want to be healthy)? feel good Fall History Screen During the past 12 months, have you had any falls? Patient does not report any falls in the past 12 months. MEDICATIONS: Patient is on one of the following medication classes: Antihypertensives, Antidepressants, Antipsychotics, Diuretics, or Controlled substance medication used for pain. Script Talk Screen Are you able to read your prescription bottles with your glasses, magnifiers or other aids? Yes or patient not taking any prescriptions. Skin Screen Patient reports any current pressure ulcers, a history of pressure ulcers, or a wound from a medical front desk specialist or Patient is bed-confined or a wheelchair-user or Patient requires assistance to transfer/change position No, Skin Screen is Negative Home Abuse/Violence Screen Is your home free of abuse and violence? Yes MOVE! Program Screen Body Mass Index (BMI)= 24.0 Adkins: Collection DT Specimen Test Name Result Units Ref Range 10/13/2022 14:59 BLOOD !! HEMOGLOBIN A1C 5.3 % 4.0 - 6.0 !! Indicates COMMENTS AVAILABLE...Refer to Interim Lab Report. [facility] Hgb A1C: No data available [place] Hgb A1C: No data available Point of Care Hgb A1C: POC HGB A1C____ Outpatient Nutrition Screen Body Mass Index (BMI)= 24.0 Adkins: Collection DT Specimen Test Name Result Units Ref Range 10/13/2022 14:59 BLOOD !! HEMOGLOBIN A1C 5.3 % 4.0 - 6.0 !! Indicates COMMENTS AVAILABLE...Refer to Interim Lab Report. [facility] Hgb A1C: No data available [place] Hgb A1C: No data available Point of Care Hgb A1C: POC HGB A1C____ Is patient's BMI less than 18.5? No Does patient have swallowing, coughing, or chewing problems affecting oral intake? No Has patient experienced unplanned weight loss or gain greater than 10 pounds over the last 2 months? No Is patient's Hgb A1C (Glycosylated Hemoglobin) greater than 9.5? No Is patient receiving Total Parenteral Nutrition (TPN) or Tube Feedings? No Patient Health Education Screen BARRIERS/SPECIAL NEEDS: No barriers identified PREFERRED STYLE OF LEARNING: No preference stated Client Assistive Service (IZABELLA) Screen Does the patient require assistance with outpatient visit? Allegra /shelly/ JEFFERY CANTU L.P.N, LPN Signed: 12/14/2023 11:42 JEFFERY CANTU [facility] Dec 14, 2023 08:55 AM INTERNAL MEDICINE NOTE: LOCAL TITLE: MEDICINE CLINIC NOTE STANDARD TITLE: INTERNAL MEDICINE NOTE DATE OF NOTE: DEC 14, 2023@08:55 ENTRY DATE: DEC 13, 2023@21:06:02 AUTHOR: SARIAH GOMES EXP COSIGNER: URGENCY: STATUS: COMPLETED SUBJECT: CLINIC VISIT GENERAL INTERNAL MEDICINE CLINIC PROGRESS NOTE GERI COUGHLIN is a 88 year old MALE here for CHIEF COMPLAINT: chronic disease management THIS AN ESTABLISHED PATIENT IN THE PRIMARY CARE CLINIC HPI: Geri has a medical history notable for HTN, HLD, Hypothyroidism, CKD 3, Dysphagia, Allergic rhinitis, BCC skin. Today, we reviewed 's interim chart notes (as summarized below), medications and any need for refills, test results, routine health care maintenance and any other acute and chronic health conditions. Additional concerns today: Constipation, BM once weekly, x last several months, also weight loss, e.g. weighed 185 in 2019, now 153, weighed 160 a year ago (all documented). Describes BM as hard, has to strain. Otherwise normal consistency, caliber, no nausea, vomiting, abd pain, rectal bleeding, black stools. Has chronic dysphagia w/dry foods, meats, this is unchanged, reviewed prior EGD and ENT visit. Admits to not eating as much as he should, gets busy with his work and doesn't eat. Does get one meal a day, also doesn't hydrate as much as he should. Stress w/work demands, hesitant to hire help, and to scale back. Does winter in [place] and relaxes yet stays active there. Leaving next month. Appetite is good. Has skin cancers, has derm f/u scheduled later this month. 01/30/2014 EGD: MICROSCOPIC DESCRIPTION: SPEC. 1, 2. Microscopic examination performed. AC/lm DIAGNOSES: SPEC. 1 Esophagus, 40 cm, biopsy-- - fragments of benign squamocolumnar mucosa - no evidence of intestinal metaplasia SPEC. 2 Esophagus, 30 cm, biopsy-- - fragments of benign squamous epithelium - no increase in eosinophils 12/06/22: ENT visit for Mild dysphagia to dry food only Normal flex exam, No concerns CHART REVIEW: 11/19/22 Dermatology visit MICROSCOPIC DESCRIPTION: Microscopic examination performed. BB DIAGNOSIS: 1. (A) Skin, right postauricular neck, shave biosy-- - Basal cell carcinoma, nodular and fibrosing - Margins positive 2. (B) Skin, left postauricular neck, shave biosy-- - Basal cell carcinoma, superficial multifocal - Deep margin positive 11/11/22: PACT Pharm. #HTN - reported home blood pressures at goal per report - continue hydrochlorothiazide 25mg/lisinopril 20mg once daily 10/18/22: Ortho visit for shoulder options for treatment would be returning to physical therapy to work on scapular stabilization, repeat injection versus consideration of shoulder replacement. Given his weakness with abduction, it is highly likely that he has tearing of the supraspinatus, and surgically a reverse total shoulder may be the more predictable option. will think about it 10/13/22: At our most recent visit, we addressed left shoulder pain, right neck skin lesion, hypertension, chronic cold intoerance Plan at that time: - Ortho to see pt in coming few weeks to guide cares, pt has appt - Dermatology Referral - Stop anti-fungal cream. Can continue to cover with bandage at night. - Lab - Measure blood pressure / heart rate at home - PACT Pharmacist consult for blood pressure management Return to Clinic in Dec/Jan before leaving for [place]. The following preventive care screening and other chronic disease management records were reviewed: Immunizations: offered any immunizations that are due, see rooming staff note Blood pressure trends (home, clinic): reviewed -Goal SBP 140-150 ages 80+ Diet, Exercise: reviewed Labs : See test results section See nursing note regarding the following screening: Pain, suicide, depression, alcohol use, toxic exposures, fall risk, skin screen, home abuse/violence, nutriton, health education, tobacco use use. Today's nursing notes were reviewed. Active problems - Computerized Problem List is the source for the followin. Hydrocele Nos 2. Cataract, Senile, Unsp 3. Hypertension (SNOMED CT 02996585) 4. Hypothyroidism (SNOMED CT 38190923) 5. Hyperlipidemia 6. Hypermetropia/Hyperopia 7. Astigmatism, Unspec 8. Presbyopia 9. Benign prostatic hyperplasia 10. Chronic kidney disease stage 3 11. Actinic keratosis 12. Dysphagia 13. Allergic rhinitis 14. Basal cell carcinoma of skin 15. Pain of left shoulder joint 16. Basal cell carcinoma of neck - 11/19/2022 SURGICAL HISTORY SEP 15, 2015 Proc: ce/iol left eye AUGUST 21, 2015 Proc: KPE/IOL right Left and right open inguinal hernia repairs Right wrist surgery FAMILY HISTORY Sister: Lung CA Brother: Stomach CA Brother: CAD/IA SOCIAL HISTORY Relationships/Living: Lives with (Miah). Has children. 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 2) SILVER SULFADIAZINE 1% CREAM APPLY TO AFFECTED AREA ACTIVE TOPICALLY TWICE A DAY NEEDED FOR IRRITATED SKIN Active Non-VA Medications Status 1) Non-VA MULTI/MINERAL/ANTIOXIDANT TAB MOUTH ACTIVE 3 Total Medications ALLERGIES: No known allergies EXAM: VITAL SIGNS: Blood Pressure: 156/82 (12/14/2023 11:26) BP150/83 repeat Pulse: 50 (12/14/2023 11:26) Respiration: 16 (12/14/2023 11:26) Temperature: 98.8 F [37.1 C] (12/14/2023 11:26) Weight: 153 lb [69.40 kg] (12/14/2023 11:26) Height: 67 in [170.2 cm] (10/13/2022 13:04) BMI: 24.0 O2 Sat: 96% (12/14/2023 11:26) PREVIOUS VITALS Blood Pressure: 165/80 (10/13/2022 13:04) recheck 164/84 Weight: 160.3 lb [72.71 kg] (10/13/2022 13:04) GEN: Alert, no acute distress EENT: Pupils equal, round, reactive to light. No icterus. Ear canals patent w/o significant cerumen, TM's normal,nasal passages clear w/normal appearing turbinates, oral mucosa moist,pharynx without erythema or exudate Neck: Full active ROM, no cervical lymphadenopathy,thyroid smooth, symmetric, no nodules Lungs: Clear to auscultation throughout Cardiac: Regular rate and rhythm, no murmurs, rubs or gallops, JVP normal/not elevated Abdomen: Normal bowel sounds, soft, non tender, no hepatosplenomegaly or masses, no CVA tenderness or masses Extremities: No peripheral edema, DP pulses 2+, no cyanosis Skin: No jaundice, rashes or suspicious lesions on exposed surfaces MSK: No kyphosis, no major joint deformities noted Neuro: CN's 2-12 intact, able to get on/off exam table without assistance. Strength grossly intact. Psych: actively engaged in conversation, full range of affect, no psychomotor slowing, no signs of agitation TEST RESULTS: Collection time: Oct 13, 2022@14:58 Test Name Result Units Range --------- ------ ----- ----- TSH 5.79 H uIU/mL 0.35 - 4.94 FREE T4 0.85 ng/dL 0.70 - 1.48 HEMOGLOBIN A1C 5.3 % 4.0 - 6.0 SODIUM 142 mmol/L 136 - 145 POTASSIUM 4.5 mmol/L 3.5 - 5.1 CHLORIDE 107 mmol/L 98 - 107 CO2 29 mmol/L 22 - 29 ANION GAP 6 mmol/L 5 - 15 GLUCOSE 91 mg/dL 70 - 100 UREA NITROGEN 29 H mg/dL 8 - 26 CREATININE 1.2 mg/dL 0.7 - 1.2 CALCIUM 9.7 mg/dL 8.4 - 10.2 MAGNESIUM 2.2 mg/dL 1.6 - 2.6 .CREAT EGFR(CKD-EPI) 59 L Ref: >=60 CHOLESTEROL 191 mg/dL Ref: <=199 TRIG(NON FASTING) 108 mg/dL Ref: <=149 .HDL 49 mg/dL Ref: >=40 LDL CALCULATION 120 H mg/dL Ref: <=99 Collection time: Sep 10, 2022@10:15 Test Name Result Units Range --------- ------ ----- ----- CREATININE 1.4 H mg/dL 0.7 - 1.2 .CREAT EGFR(CKD-EPI) 50 L Ref: >=60 SHOULDER LEFT 2-3 VIEWS Exm Date: OCT 13, 2022@12:16 Impression: There is posterior subluxation of the humeral head which has developed since 2018 exam. 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 Mild degenerative bony ridging of the glenohumeral joint. There is mild degenerative bony hypertrophy of the acromioclavicular joint without joint space narrowing. Deformity of the left clavicle, presumably from remote healed fracture. No acute fracture. Diffuse osseous demineralization. SHOULDER RIGHT 4V(AP,Y VIEW, GRASHEY & AXILLARY) Exm Date: OCT 13, 2022@12:16 Impression: Humeral head is well-seated within the glenoid. There is mild to moderate degenerative loss of glenohumeral joint space, progressed compared to 2018. Mild degenerative bony ridging of the glenohumeral joint and including the superior lateral humeral head. 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 Mild bony hypertrophy and tiny degenerative ossific body superiorly at the acromioclavicular joint without space narrowing. No acute osseous abnormality. ASSESSMENT AND PLAN Hypothyroidism HTN HLD, CKD 3, Dysphagia, Constipation Unintentional weight loss, weighed 185 in 2019, now 153, weighed 160 a year ago Plan: Labs (see orders) May need EGD, colonoscopy Nutrition referral Miralax RTC one month Note: rain in [place], leaving next month REMINDERS: Medication Reconciliation: Education Evaluations *Was medication education provided for NEW medications or CHANGES to medications? (including medication name, dose, route, reason for use, and potential side effects). Yes. Verbal education was provided to patient/caregiver and patient/caregiver verbalized understanding. TERATOGENIC MED & CONTRACEPTION REVIEW (Optional)... = MEDICATION RECONCILIATION = List Given: An updated medication list was provided to the patient/caregiver. Review Done: The medication list shown below was verified for accuracy and it includes all pending medications/active medications/all medications or discontinued within the last 90 days/all remote medications and non-VA medications. If a given category (i.e. remote meds) is not shown, that means that a patient doesn't have a medication(s) in that category. Allergies listed below were also reviewed/updated for accuracy. Allergies/ADR from [facility] may not display in CPRS. Use JLV MRT5 - Allergies/ADRs FACILITY ALLERGY/ADR -------- Lindsey CURTIS DEPT OF [facility] NO KNOWN ALLERGIES [facility] No Known Allergies [facility] NO KNOWN ALLERGIES Active and Recently Outpatient Medications (including Supplies): Issue Date Status Last Fill Active Outpatient Medications Refills Expiration 1) HCTZ 25/LISINOPRIL 20MG TAB Qty: 90 for ACTIVE Issu:06-13-23 90 days Sig: TAKE 1 TABLET BY MOUTH Refills: 2 Last:09-12-23 EVERY MORNING FOR BLOOD PRESSURE. Expr:06-13-24 2) SILVER SULFADIAZINE 1% CREAM Qty: 50 ACTIVE Issu:10-11-23 for 30 days Sig: APPLY TO AFFECTED Refills: 3 Last:10-12-23 AREA TOPICALLY TWICE A DAY NEEDED Expr:10-11-24 FOR IRRITATED SKIN Issue Date Status Last Fill Pending Outpatient Medications Refills Expiration 1) POLYETHYLENE GLYCOL 3350 ORAL PWDR Qty: PENDING 510 Sig: TAKE 17 GRAMS BY MOUTH EVERY Refills: 0 DAY NEEDED Start Date Active Non-VA Medications Refills Expiration 1) Non-VA MULTI/MINERAL/ANTIOXIDANT TAB ACTIVE Sig: MOUTH 4 Total Medications Time spent today, including: Reviewing interim [facility] VA- and non-[facility] VA chart notes and test results, Independently obtaining history, Performing a medically appropriate exam and/or evaluation, Documenting clinical information in the progress note, Updating the CPRS problem list, Renewing medications, Entering any non-VA medications in CPRS Independently interpreting results, Communicating results (verbally, in results letter), Counseling and educating patient/surrogate, Coordinating care with other health team members, Entering/signing orders, Completing reminders, Coding the encounter. Total Time: 45 MIN Sariah Gomes MD General [facility] PACT JEAN PAUL 4F /es/ Sariah Gomes MD Physician Signed: 12/14/2023 12:36 SARIAH GOMES [facility]
--- OUTSIDE RECORDS SUMMARY | 2024-01-27 12:20 | XMS_ITS | Encounter Summary ---
Author Name [facility] [place] Organization [facility] [place] Address [address] [place] [address] Care Team Providers Care Manager Disaster Recovery Name Role Phone SARIAH GOMES Primary Care Provider Unavailpat greene Insurance [...] PART A Sep 09, 2002 PART A [id number] JOAQUIN COUGHLIN S PATIENT MEDICARE (WNR) MEDICARE (M) PART B Sep 09, 2002 PART B [id number] JOAQUIN COUGHLIN S PATIENT MEDICARE (WNR) MEDICARE (M) PART A Sep 09, 2002 PART A [id number] OJAQUIN COUGHLIN S PATIENT MEDICARE (WNR) MEDICARE (M) PART B Sep 09, 2002 PART B [id number] JOAQUIN COUGHLIN S PATIENT Selected Encounter This section includes the information on record at [place] for the Encounter. Date/Time Encounter Type Encounter Description Reason Provider Source Jan 05, 2024 08:00 AM OFFICE O/P EST MOD 30 MIN DERMATOLOGY ICD-10-CM D48.5 Neoplasm of uncertain behavior of skin BERSHOW,TRISHA L E Encounter Template Text not used by [place] Assessments - Encounter Diagnoses This section includes the primary and secondary diagnoses documented for the Encounter. Date/Time Primary/Secondary Diagnosis Diagnosis Name Provider Source Jan 05, 2024 08:38 AM PRIMARY Neoplasm of uncertain behavior of skin SAM SANCHES [facility] Jan 05, 2024 08:38 AM SECONDARY Actinic keratosis SAM SANCHES [facility] Jan 05, 2024 08:38 AM SECONDARY Other seborrheic keratosis MYRONSAM Greene [facility] Plan of Treatment: Future Appointments (+ 6 months) and Future Tests (+/- 45 days) The Plan of Treatment section includes future care activities for the patient from all [place] [facility] This section includes future appointments and future orders which are active, pending or scheduled. Future Appointments This section includes appointments that were scheduled to occur 6 months from the date of the Encounter, up to a maximum of 20 appointments. The data comes from all [facility]. Appointment Date/Time Appointment Type Appointme nt Facility Name Jan 10, 2024 12:00 PM AMBULATORY - NONE [facility] Jan 11, 2024 01:30 PM AMBULATORY - MEDICINE [facility] Jan 27, 2024 11:47 AM AMBULATORY - NONE [facility] Jan 30, 2024 02:15 PM AMBULATORY - SURGERY [facility] Feb 21, 2024 10:00 AM AMBULATORY - MEDICINE [facility] Active, Pending, and Scheduled Orders This section includes a listing of several types of active, pending, and scheduled orders, including clinic medications orders, diagnostic test orders, procedure orders and consult orders; where the start date of the order is 45 days before the date of the Encounter or 45 days after the date of theEncounter. The data comes from all [facility]. Test Date/Time Test Type Test Details Facility Name Jan 18, 2024 04:23 PM Consult Order CARDIAC EC HO OUTPT-ALL SITES [facility] [employer] [facility] Jan 19, 2024 09:44 AM Consult Order COMMUNITY CARE-NUCLEAR MEDICINE [facility] Jan 19, 2024 12:10 PM Consult Order COMMUNITY CARE-DERMATOLOGY [facility] Lab Results: +/- 30 days of the encounter This section includes the Chemistry and Hematology Lab Results on record with [place] for the patient. Radiology Reports and Pathology Reports are provided separately, in subsequent sections. Lab Results This section contains the Chemistry/Hematology Results that were resulted 30 days before or 30 daysafter the date of the Encounter. Date/Time Source Result Type Result - Unit Interpretation Reference Range Comment Dec 14, 2023 12:33 PM [facility] TSH W/REFLEX TO FREE T4 Specimen Type: PLASMA No comment entered. Ordering Provider: MOLLY GOMES Report Released Date/Time: Dec 14, 2023 12:10 PM Reporting Lab: [facility] [id number] Performing Lab: [facility] [id number] TSH 5.10 u[IU]/mL H 0.35-4.94 FREE T4 0.83 ng/dL 0.70-1.48 Dec 14, 2023 12:33 PM [facility] B 12 Specimen Type: SERUM No comment entered. Ordering Provider: MOLLY GOMES Report Released Date/Time: Dec 14, 2023 12:10 PM Reporting Lab: [facility] [id number] Performing Lab: [facility] [id number] B 12 642 pg/mL 213-816 Dec 14, 2023 12:33 PM [facility] IRON GROUP Specimen Type: SERUM No comment entered. Ordering Provider: MOLLY GOMES Report Released Date/Time: Dec 14, 2023 12:10 PM Reporting Lab: [facility] [id number] Performing Lab: [facility] [id number] IRON 95 ug/dL 65-175 TIBC,CALCULATED 276 ug/dL 250-425 FERRITIN 495.9 ng/mL H 21.8-274.7 IRON SATURATION 34 20-50 TRANSFERRIN 221 mg/dL 163-382 Dec 14, 2023 12:33 PM [facility] LIPID PANEL,NON-FASTING Specimen Type: PLASMA No comment entered. Ordering Provider: MOLLY GOMES Report Released Date/Time: Dec 14, 2023 12:10 PM Reporting Lab: [facility] [id number] Performing Lab: [facility] [address] CHOLESTEROL 186 mg/dL <199 .HDL 49 mg/dL >40 LDL CALCULATION 116 mg/dL H <99 VLDL CALCULATION 21 mg/dL <29 NON HDL CHOLESTEROL 137 mg/dL H <129 TRIG(NON FASTING) 106 mg/dL <149 Dec 14, 2023 12:33 PM [facility] FOLATE Specimen Type: SERUM No comment entered. Ordering Provider: MOLLY GOMES Report Released Date/Time: Dec 14, 2023 12:10 PM Reporting Lab: [facility] [id number] Performing Lab: [facility] [address] FOLATE 11.5 ng/mL >7.0 Dec 14, 2023 12:33 PM [facility] HEMOGLOBIN A1C Specimen Type: BLOOD [...] Dec 14, 2023 12:10 PM Reporting Lab: [facility] [phone] Performing Lab: [facility] [address] HEMOGLOBIN A1C 5.3 4.0-6.0 Dec 14, 2023 12:33 PM [facility] CBC Specimen Type: BLOOD No comment entered. Ordering Provider: MOLLY GOMES Report Released Date/Time: Dec 14, 2023 12:10 PM Reporting Lab: [facility] [id number] Performing Lab: [facility] [phone] WBC 5.5 4.0-11.0 RBC 4.59 L 4.60-6.20 HGB 14.0 g/dL 13.5-17.9 HCT 43.0 41-54 MCV 93.7 fL 80-100 MCH 30.5 pg 27-33 MCHC 32.6 g/dL 32.0-37.5 PLT 184 150-400 MPV 10.6 fL H 7.4-10.4 RDW 12.7 11.5-14.5 Dec 14, 2023 12:33 PM [facility] COMPREHENSIVE METABOLIC PANEL+MG Specimen Type: PLASMA No comment entered. Ordering Provider: MOLLY GOMES Report Released Date/Time: Dec 14, 2023 12:10 PM Reporting Lab: [facility] [address] Performing Lab: [facility] [address] CREATININE 1.2 mg/dL 0.7-1.2 UREA NITROGEN 23 [...] and tobacco- related health factors from the [place] facility where the Encounter took place. Current Smoking Status This section includes the most current smoking, or tobacco-related health factor, from the [place] facility where the Encounter took place. Date/Time Current Smoking Status Comment Mimi hernandez Dec 14, 2023 11:30 AM VA-TOBACCO QUIT 15 YRS OR MORE [facility] Tobacco Use History This section includes a history of the smoking, or tobacco-related health factors, that were collected on or before the date of the Encounter. The data comes from the [place] facility where the Encounter took place. Date/Time Smoking Status/Tobacco Use Comment Coy brown Dec 14, 2023 11:30 AM VA-TOBACCO QUIT 15 YRS OR MORE [facility] Oct 13, 2022 01:30 PM VA-TOBACCO FORMER USER [facility] Oct 13, 2022 01:30 PM VA-TOBACCO QUIT 15 YRS OR MORE [facility] Jul 27, 2021 10:00 AM VA-TOBACCO FORMER USER [facility] Jul 27, 2021 10:00 AM VA-TOBACCO QUIT 15 YRS OR MORE [facility] Jan 02, 2020 09:00 AM VA-TOBACCO FORMER USER [facility] Jan 02, 2020 09:00 AM VA-TOBACCO QUIT 15 YRS OR MORE [facility] Jul 21, 2018 03:00 PM VA-TOBACCO FORMER USER [facility] Jul 21, 2018 03:00 PM VA-TOBACCO QUIT 15 YRS OR MORE [facility] Dec 24, 2016 08:01 AM FORMER TOBACCO USER 7Y OR GREATE R [facility] Dec 23, 2015 08:23 AM FORMER TOBACCO USE >1Y <7Y [facility] Dec 26, 2014 10:32 AM FORMER TOBACCO USER 7Y OR GREATE R [facility] August 13, 2013 08:22 AM LIFETIME NON-TOBACCO USER [facility] August 30, 2006 08:38 AM FORMER TOBACCO USER 7Y OR GREATE R [facility] Advance Directives: All historical and current Section Date Range: From patient's date of to the date document was created. This section includes ALL of a patient's completed or amended [place] Advance and Rescinded Directives. The entries below indicate that a directive exists for the patient, but an actual copy is not included with this document. The data comes from all [facility]. Date Advance Directives Provider Source August 30, 2006 ADVANCE DIRECTIVE ARGENIS CRAMER [facility] Pathology Reports: +/- 30 days of [...] the Encounter. The data comes from all [place] treatment facilities. Date/Time Pathology Report Provider Source Jan 06, 2024 11:16 AM LR SURGICAL PATHOL OGY REPORT: LOCAL TITLE: LR SURGICAL PATHOLOGY REPORT STANDARD TITLE: PATHOLOGY REPORT DATE OF NOTE: JAN 06, 2024@11:16:39 ENTRY DATE: JAN 06, 2024@11:16:39 AUTHOR: JOSE REESE COSIGNER: URGENCY: STATUS: COMPLETED $APHDR Reporting Lab: [facility] [CLIA# [id number]] [place] [address] - - - - - - - [...] - PATHOLOGY REPORT Accession No. [id number] - - - - - - - [...] - PATHOLOGY REPORT Accession No. [id number] - - - - - - - [...] 0.1 cm. The specimen is inked. CE. (D)[facility] MICROSCOPIC DESCRIPTION: Microscopic examination performed. CI. 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 STAFF PATHOLOGIST Signed Jan 06, 2024@11:16 Performing Laboratory: Surgical Pathology Report Performed By: [facility] [CLIA# [id number]] [place] [address] $FTR - - - - - - [...] - - GERI COUGHLIN STANDARD FORM 515 ID:[id number] SEX:M :1935 AGE: 88 LOC:[id number] PCP: Sariah Gomes MD /shelly/ JOSE REESE M.D. STAFF PATHOLOGIST Signed: 01/06/2024 11:16 JOSE REESE [facility] Encounter Notes: All associated encounter notes This section contains the clinical notes associated to the Encounter. Date/Time Encounter Note(s) Provider Source Jan 19, 2024 12:10 PM ADDENDUM: LOCAL TITLE: Addendum STANDARD TITLE: ADDENDUM DATE OF NOTE: JAN 19, 2024@12:10:50 ENTRY DATE: JAN 19, 2024@12:10:50 AUTHOR: SAM SANCHES COSIGNER: URGENCY: STATUS: COMPLETED Biopsy results excision/mohs Results: MICROSCOPIC DESCRIPTION: Microscopic examination performed. CI. 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 STAFF PATHOLOGIST Signed Jan 06, 2024@11:16 Informed patient of results above. For R upper back SCC, patient will be scheduled for wider excision [facility]. For L inferior helix SCC, patient will be scheduled for MOHS surgery w Dr. Cook at [facility] in [place], [place]. Will await call for scheduling the procedure. Otherwise feeling well and biopsy site healing well. Clinically indicated date t+8w. Dermatology Problem List: UBSE 01/05/2024 # NMSC - SCC, L inferior helix s/p shave biopsy 01/05/2024, PENDING CC [facility] COOK - SCC, R upper back s/p shave biopsy 01/05/2024,PENDING EXCISION T+8W - n/fBCC, R postauricular neck. s/p Traveling Vet in [facility] 12/2022 - s/mBCC, L postauricular neck. s/p Traveling Vet in [facility] 12/2022 - nodular and fibrosing BCC, R preauricular cheek, s/p [facility] 10/19/17 - SCCis, L lower lip, s/p [facility] 11/03/16 - nBCC, Right upper back, excised in bx 01/02/15 - n+sBCC, Central midback, excised in bx 01/02/15 # AKs - 5FU/C in Winter 2023 - planning for 5FU/C to temples, cheeks, helices, dorsal arms/hands fall 2022 Total encounter time: 15 min Staff: Dr. Jiménez /shelly/ SAM SANCHES MD RESIDENT Signed: 01/19/2024 12:14 Receipt Acknowledged By: 01/24/2024 09:05 /shelly/ TRISHA JIMÉNEZ MD CHIEF DERMATOLOGY --- Original Document --- 01/05/24 DERMATOLOGY CLINIC NOTE: Dr. Jiménez saw and evaluated the patient with me, and agrees with the findings, assessment and plan as outlined. Clinic Note Dermatology Problem List: UBSE 01/05/2024 # NUB - L inferior helix s/p shave biopsy 01/05/2024, suspect scc vs hak - R upper back s/p shave biopsy 01/05/2024, suspect isk vs bcc # NMSC - n/fBCC, R postauricular neck. s/p Traveling Vet in [facility] 12/2022 - s/mBCC, L postauricular neck. s/p Traveling Vet in [facility] 12/2022 - nodular and fibrosing BCC, R preauricular cheek, s/p [facility] 10/19/17 - SCCis, L lower lip, s/p [facility] 11/03/16 - nBCC, Right upper back, excised in bx 01/02/15 - n+sBCC, Central midback, excised in bx 01/02/15 # AKs - 5FU/C in Winter 2023 - planning for 5FU/C to temples, cheeks, helices, dorsal arms/hands fall 2022 SUBJECTIVE: GERI COUGHLIN is a 88 year old MALE who presents today for skin check. has a few pink scaly spots on the face. Has been applying silver sulfadiazine cream (prescribed). Had MOHS x 2 last year in [place]. Went well. Otherwise no new, tender, non-healing,or bleeding lesions. Wears sunscreen sometimes. No other concerns today. Review of systems: CONST: Otherwise in baseline state of health. SKIN: As above in HPI, no additional skin concerns. OBJECTIVE: GEN: No acute distress. SKIN: UBSE (head/neck, trunk, arms, hands/fingernails) - On the R cheek x 3, and L tmeple x 2, L cheek x 2, L superior helix, there are gritty pink papules. - On the L inferior helix there is a pianful keratotic papule - On the R upper back there is a keratotic pink papule w maple leaf structure and without telangiectasias - On the trunk and extremities, there are flesh-colored to light brown, waxy, stuck on papules and plaques. - On the trunk and extremities with accentuation in sun-exposed areas, there are light brown macules with uniform appearance. - On trunk and extremities, there are firm red papules. - Previous sites of skin cancer noted above were examined. No evidence for recurrence by inspection or palpation. ASSESSMENT & PLAN: # NUB - L inferior helix s/p shave biopsy 01/05/2024 - R upper back s/p shave biopsy 01/05/2024 - SHAVE BIOPSY PROCEDURE NOTE: A time-out was taken prior to the procedure to verify correct patient, correct site and correct procedure. After verifying patient's identification and obtaining informed consent, including discussions of the risks of bleeding,infection, and scarring,the lesion was cleansed with an alcohol swab then injected with 1.0 cc of 1% lidocaine with epinephrine. A Christin blade was used to shave the lesion. Specimen was labeled and sent to pathology in formalin. Aluminum chloride was applied for chemical cauterization. Petrolatum and bandaid were applied to the biopsy site. Post-biopsy wound care was discussed in detail. # History of NMSC. NERD. - Sun protection, including daily SPF 30+, advised # Actinic keratoses Etiology and treatment options reviewed. Treated AKs on face w LN2 in clinic, and will aslo treat at home with field therapy cream starting February. Has been applying Silver sulfadiazine to AKs, no improvement. Discussed that this cream is typically reserved for burn patients and is not appropriate for AKs. - Recommend DC silver sulfadizine - Lesions treated with 1-2 freeze-thaw cycles of liquid nitrogen cryotherapy. Counseled that lesions will become red, may blister, and then heal in 1-2 weeks. Risks including recurrence and scar discussed. - Start efudex 5% cream mixed with equal amount of calcipotriene cream twice daily to AKs on face for 4-7 days (until treated area is red) - Plan to repeat treatment 2-3 times a year (around Dec, Apr, and July) - Wash hands thoroughly after application and keep medication away from children and pets - Treatment instructions, including photographs of expected clinical course, extensively reviewed with patient and writtern handout provided - Diligent sun protection with daily SPF30+ advised # Seborrheic keratoses, lauren angiomas. Reassured of benign etiology. - No further intervention required RTC 12 months for UBSE. Also requested q4m [place] rehceck, patient mona cortes out of town. Will aim for when he returns from [place] in July or sooner for any tender, painful, bleeding, rapidly changing, or otherwise concerning lesions. Total encounter time (including chart review, counseling, documentation, ordering of labs/meds): 30-39 min /shelly/ SAM SANCHES MD RESIDENT Signed: 01/05/2024 08:40 Receipt Acknowledged By: 01/09/2024 14:26 /shelly/ TRISHA JIMÉNEZ MD CHIEF DERMATOLOGY 01/09/2024 ADDENDUM STATUS: COMPLETED I saw and evaluated the patient with the resident, and agree with the assessment and plan as written in the resident's note. /shelly/ TRISHA JIMÉNEZ MD CHIEF DERMATOLOGY Signed: 01/09/2024 14:27 SAM SANCHES [facility] Jan 05, 2024 08:49 AM DERMATOLOGY JAMI Barillas OUTPATIENT NOTE: LOCAL TITLE: DERMATOLOGY CLINIC NURSING NOTE STANDARD TITLE: DERMATOLOGY NURSING OUTPATIENT NOTE DATE OF NOTE: JAN 05, 2024@08:49 ENTRY DATE: JAN 05, 2024@08:49:53 AUTHOR: JAQUELIN CHARLES COSIGNER: URGENCY: STATUS: COMPLETED Dermatology Clinic Nursing Note Post Procedure Nursing Note Vaseline, band-aid, folded gauze (2 X 2), medipore white tape, applied to biopsy site left ear,right upper back This bandage should be kept clean and dry for 1 days. After 1 days the bandage can be removed and the biopsy site should be gently cleaned once per day, patted dry, then covered with vaseline and a bandage. Daily cleaning and dressing changes should be done until skin is fully healed. No other products should be used on the biopsy site i.e., hydrogen peroxide, rubbing alcohol, skin oils, creams, prescriptions until the area is completely healed. Educational Screening: Barriers to Learning/Special Needs: No Barriers Identified Preferred Style of Learning: No preference stated Teaching Strategy: 1:1 Written/printed material Instruction: Patient/family/caregiver instructed in standard Post-Biopsy and Cryotherapy wound care. Printed instruction sheet provided for home reference: Skin Biopsy Patient Instruction, Care After Freezing with Liquid Nitrogen Understanding: Patient/family/caregiver: Able to verbalize understanding. Follow up teaching: None needed /shelly/ JAQUELIN CHARLES LPN LICENSED PRACTICAL NURSE Signed: 01/05/2024 08:52 JAQUELIN CHARLES [facility] Jan 05, 2024 07:56 AM DERMATOLOGY ATTEND ING NOTE: LOCAL TITLE: DERMATOLOGY CLINIC NOTE STANDARD TITLE: DERMATOLOGY ATTENDING NOTE DATE OF NOTE: JAN 05, 2024@07:56 ENTRY DATE: JAN 05, 2024@07:57:02 AUTHOR: SAM SANCHES EXP COSIGNER: URGENCY: STATUS: COMPLETED DERMATOLOGY CLINIC NOTE Has ADDENDA Dr. Jiménez saw and evaluated the patient with me, and agrees with the findings, assessment and plan as outlined. Clinic Note Dermatology Problem List: UBSE 01/05/2024 # NUB - L inferior helix s/p shave biopsy 01/05/2024, suspect scc vs hak - R upper back s/p shave biopsy 01/05/2024, suspect isk vs bcc # NMSC - n/fBCC, R postauricular neck. s/p Traveling Vet in [facility] 12/2022 - s/mBCC, L postauricular neck. s/p Traveling Vet in [facility] 12/2022 - nodular and fibrosing BCC, R preauricular cheek, s/p [facility] 10/19/17 - SCCis, L lower lip, s/p [facility] 11/03/16 - nBCC, Right upper back, excised in bx 01/02/15 - n+sBCC, Central midback, excised in bx 01/02/15 # AKs - 5FU/C in Winter 2023 - planning for 5FU/C to temples, cheeks, helices, dorsal arms/hands fall 2022 SUBJECTIVE: GERI COUGHLIN is a 88 year old MALE who presents today for skin check. has a few pink scaly spots on the face. Has been applying silver sulfadiazine cream (prescribed). Had MOHS x 2 last year in [place]. Went well. Otherwise no new, tender, non-healing,or bleeding lesions. Wears sunscreen sometimes. No other concerns today. Review of systems: CONST: Otherwise in baseline state of health. SKIN: As above in HPI, no additional skin concerns. OBJECTIVE: GEN: No acute distress. SKIN: UBSE (head/neck, trunk, arms, hands/fingernails) - On the R cheek x 3, and L tmeple x 2, L cheek x 2, L superior helix, there are gritty pink papules. - On the L inferior helix there is a pianful keratotic papule - On the R upper back there is a keratotic pink papule w maple leaf structure and without telangiectasias - On the trunk and extremities, there are flesh-colored to light brown, waxy, stuck on papules and plaques. - On the trunk and extremities with accentuation in sun-exposed areas, there are light brown macules with uniform appearance. - On trunk and extremities, there are firm red papules. - Previous sites of skin cancer noted above were examined. No evidence for recurrence by inspection or palpation. ASSESSMENT & PLAN: # NUB - L inferior helix s/p shave biopsy 01/05/2024 - R upper back s/p shave biopsy 01/05/2024 - SHAVE BIOPSY PROCEDURE NOTE: A time-out was taken prior to the procedure to verify correct patient, correct site and correct procedure. After verifying patient's identification and obtaining informed consent, including discussions of the risks of bleeding,infection, and scarring,the lesion was cleansed with an alcohol swab then injected with 1.0 cc of 1% lidocaine with epinephrine. A Norris blade was used to shave the lesion. Specimen was labeled and sent to pathology in formalin. Aluminum chloride was applied for chemical cauterization. Petrolatum and bandaid were applied to the biopsy site. Post-biopsy wound care was discussed in detail. # History of NMSC. NERD. - Sun protection, including daily SPF 30+, advised # Actinic keratoses Etiology and treatment options reviewed. Treated AKs on face w LN2 in clinic, and will aslo treat at home with field therapy cream starting February. Has been applying Silver sulfadiazine to AKs, no improvement. Discussed that this cream is typically reserved for burn patients and is not appropriate for AKs. - Recommend DC silver sulfadizine - Lesions treated with 1-2 freeze-thaw cycles of liquid nitrogen cryotherapy. Counseled that lesions will become red, may blister, and then heal in 1-2 weeks. Risks including recurrence and scar discussed. - Start efudex 5% cream mixed with equal amount of calcipotriene cream twice daily to AKs on face for 4-7 days (until treated area is red) - Plan to repeat treatment 2-3 times a year (around Dec, Apr, and July) - Wash hands thoroughly after application and keep medication away from children and pets - Treatment instructions, including photographs of expected clinical course, extensively reviewed with patient and writtern handout provided - Diligent sun protection with daily SPF30+ advised # Seborrheic keratoses, lauren angiomas. Reassured of benign etiology. - No further intervention required RTC 12 months for UBSE. Also requested q4m AK rehceck, patient mona barriose out of town. Will aim for when he returns from [place] in July or sooner for any tender, painful, bleeding, rapidly changing, or otherwise concerning lesions. Total encounter time (including chart review, counseling, documentation, ordering of labs/meds): 30-39 min /shelly/ SAM SANCHES MD RESIDENT Signed: 01/05/2024 08:40 Receipt Acknowledged By: 01/09/2024 14:26 /shelly/ TRISHA JIMÉNEZ MD CHIEF DERMATOLOGY 01/09/2024 ADDENDUM STATUS: COMPLETED I saw and evaluated the patient with the resident, and agree with the assessment and plan as written in the resident's note. /shelly/ TRISHA JIMÉNEZ MD CHIEF DERMATOLOGY Signed: 01/09/2024 14:27 01/19/2024 ADDENDUM STATUS: COMPLETED Biopsy results excision/mohs Results: MICROSCOPIC DESCRIPTION: Microscopic examination performed. CI. 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 STAFF PATHOLOGIST Signed Jan 06, 2024@11:16 Informed patient of results above. For R upper back SCC, patient will be scheduled for wider excision in [facility]. For L inferior helix SCC, patient will be scheduled for MOHS surgery w Dr. Cook at [facility] in [place], [place]. Will await call for scheduling the procedure. Otherwise feeling well and biopsy site healing well. Clinically indicated date t+8w. Dermatology Problem List: UBSE 01/05/2024 # NMSC - SCC, L inferior helix s/p shave biopsy 01/05/2024, PENDING CC [facility] COOK - SCC, R upper back s/p shave biopsy 01/05/2024,PENDING EXCISION T+8W - n/fBCC, R postauricular neck. s/p Traveling Vet in [facility] 12/2022 - s/mBCC, L postauricular neck. 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 Jiménez /shelly/ SAM SANCHES MD RESIDENT Signed: 01/19/2024 12:14 Receipt Acknowledged By: * AWAITING SIGNATURE * TRISHA JIMÉNEZ [facility]
--- OUTSIDE RECORDS SUMMARY | 2024-01-27 12:20 | XMS_ITS | Encounter Summary ---
Author Name [facility] [place] Address [address] [place] [id number] Care Team Providers Care Surgical Appliances Salesperson Name Role Phone SARIAH GOMES Primary Care Provider Unavailabl e Insurance [...] PART A Sep 09, 2002 PART A [id number] [phone] JOAQUIN COUGHLIN S PATIENT MEDICARE (WNR) MEDICARE (M) PART B Sep 09, 2002 PART B [id number] JOAQUIN COUGHLIN S PATIENT MEDICARE (WNR) MEDICARE (M) PART A Sep 09, 2002 PART A [id number] NULLJOAQUIN S PATIENT MEDICARE (WNR) MEDICARE (M) PART B Sep 09, 2002 PART B [id number] JOAQUIN COUGHLIN S PATIENT Selected Encounter This section includes the information on record at [place] for the Encounter. Date/Time Encounter Type Encounter Description Reason Provider Source Jan 18, 2024 12:30 PM Outpatient Encounter CARDIOLOGY ICD-10-CM R94.31 Abnormal electrocardiogram [ECG] [EKG] CARMEL COLEMAN IHE Encounter Template Text not used by [place] Assessments - Encounter Diagnoses This section includes the primary and secondary diagnoses documented for the Encounter. Date/Time Primary/Secondary Diagnosis Diagnosis Name Provider Source Jan 18, 2024 12:58 PM PRIMARY Abnormal electrocardiogram [ECG] [EKG] CARMEL COLEMAN [facility] Plan of Treatment: Future Appointments (+ 6 months) and Future Tests (+/- 45 days) The Plan of Treatment section includes future care activities for the patient from all [place] [facility]. This section includes future appointments and future orders which are active, pending or scheduled. Future Appointments This section includes appointments that were scheduled to occur 6 months from the date of the Encounter, up to a maximum of 20 appointments. The data comes from all [place] treatment facilities. Appointment Date/Time Appointment Type Appointme nt Facility Name Jan 27, 2024 11:47 AM [facility] Jan 30, 2024 02:15 PM AMBULATORY - SURGERY [facility] Feb 21, 2024 10:00 AM AMBULATORY - MEDICINE [facility] Active, Pending, and Scheduled Orders This section includes a listing of several types of active, pending, and scheduled orders, including clinic medications orders, diagnostic test orders, procedure orders and consult orders; where the start date of the order is 45 days before the date of the Encounter or 45 days after the date of theEncounter. The data comes from all [facility]. Test Date/Time Test Type Test Details Facility Name Jan 18, 2024 04:23 PM Consult Order CARDIAC EC HO OUTPT-ALL SITES Cons Supervisor [employer] [facility] Jan 19, 2024 09:44 AM Consult Order COMMUNITY CARE-NUCLEAR MEDICINE Cons Supervisor [facility] Jan 19, 2024 12:10 PM Consult Order COMMUNITY CARE-DERMATOLOGY Cons Supervisor [facility] Social History: Smoking Status (Most current) and Tobacco Use (All prior to encounter date) This section includes the most current, and the historical, smoking and tobacco- related health factors from the [place] facility where the Encounter took place. Current Smoking Status This section includes the most current smoking, or tobacco-related health factor, from the [place] facility where the Encounter took place. Date/Time Current Smoking Status Hermann hernandez Dec 14, 2023 11:30 AM VA-TOBACCO FORMER USER [facility] Tobacco Use History This section includes a history of the smoking, or tobacco-related health factors, that were collected on or before the date of the Encounter. The data comes from the [place] facility where the Encounter took place. Date/Time Smoking Status/Tobacco Use Comment F acility Dec 14, 2023 11:30 AM VA-TOBACCO QUIT 15 YRS OR MORE [facility] Oct 13, 2022 01:30 PM VA-TOBACCO FORMER USER [facility] Oct 13, 2022 01:30 PM VA-TOBACCO QUIT 15 YRS OR MORE [facility] Jul 27, 2021 10:00 AM VA-TOBACCO FORMER USER [facility] Jul 27, 2021 10:00 AM VA-TOBACCO QUIT 15 YRS OR MORE [facility] Jan 02, 2020 09:00 AM VA-TOBACCO FORMER USER [facility] Jan 02, 2020 09:00 AM VA-TOBACCO QUIT 15 YRS OR MORE [facility] Jul 21, 2018 03:00 PM VA-TOBACCO FORMER USER [facility] Jul 21, 2018 03:00 PM VA-TOBACCO QUIT 15 YRS OR MORE [facility] Dec 24, 2016 08:01 AM FORMER TOBACCO USER 7Y OR GREATE R [facility] Dec 23, 2015 08:23 AM FORMER TOBACCO USE >1Y <7Y [facility] Dec 26, 2014 10:32 AM FORMER TOBACCO USER 7Y OR GREATE R [facility] August 13, 2013 08:22 AM LIFETIME NON-TOBACCO USER [facility] August 30, 2006 08:38 AM FORMER TOBACCO USER 7Y OR GREATE R [facility] Advance Directives: All historical and current Section Date Range: From patient's date of to the date document was created. This section includes ALL of a patient's completed or amended [place] Advance and Rescinded Directives. The entries below indicate that a directive exists for the patient, but an actual copy is not included with this document. The data comes from all [facility]. Date Advance Directives Provider Source August 30, 2006 ADVANCE DIRECTIVE [facility] Pathology Reports: +/- 30 days of [...] the Encounter. The data comes from all [place] treatment facilities. Date/Time Pathology Report Provider Source Jan 06, 2024 11:16 AM LR SURGICAL PATHOL OGY REPORT: LOCAL TITLE: LR SURGICAL PATHOLOGY REPORT STANDARD TITLE: PATHOLOGY REPORT DATE OF NOTE: JAN 06, 2024@11:16:39 ENTRY DATE: JAN 06, 2024@11:16:39 AUTHOR: JOSE REESE COSIGNER: URGENCY: STATUS: COMPLETED $APHDR Reporting Lab: [facility] [CLIA# [id number]] [place] [address] - - - - - - - [...] - PATHOLOGY REPORT Accession No. [id number] - - - - - - - [...] - PATHOLOGY REPORT Accession No. [id number] - - - - - - - [...] 0.1 cm. The specimen is inked. CE. (D)[facility] MICROSCOPIC DESCRIPTION: Microscopic examination performed. CI. 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 STAFF PATHOLOGIST Signed Jan 06, 2024@11:16 Performing Laboratory: Surgical Pathology Report Performed By: [facility] [CLIA# [id number]] [place] [address] $FTR - - - - - - - - - - - - - - - - - - - - - - - - - - - - - - - - - - - - - - - - (End of report) JOSE REESE MD [facility] Date Jan 06, 2024 - - - - - - - - - - - - - - - - - - - - - - - - - - - - - - - - - - - - - - - - GERI COUGHLIN STANDARD FORM 515 ID:[id number] SEX:M :1935 AGE: 88 LOC:[id number] PCP: Sariah Gomes MD /shelly/ JOSE REESE M.D. STAFF PATHOLOGIST Signed: 01/06/2024 11:16 JOSE REESE [facility] Encounter Notes: All associated encounter notes This section contains the clinical notes associated to the Encounter. Date/Time Encounter Note(s) Provider Source Jan 18, 2024 12:30 PM CARDIOLOGY CONSULT : LOCAL TITLE: CARDIAC CONSULT STANDARD TITLE: CARDIOLOGY CONSULT DATE OF NOTE: JAN 18, 2024@12:30 ENTRY DATE: JAN 18, 2024@12:30:52 AUTHOR: SERA COLEMAN EXP COSIGNER: URGENCY: STATUS: COMPLETED Reason for consult: abnormal ECG On 2023, had ECG during annual exam for chronic disease management. ECG showed sinus bradycardia with 1st degree A-V block, premature atrial complexes, left axis deviation, and inferior infarct. 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 He has had on episode of chest pain during a time of increased stressed. Recommendations: 1). Obtain an echocardiogram. If abnormal findings, (reduced LV function, regional wall abnormalities, or valvular disease), then re-consult cardiology. If had an inferior KS, as suggested by the ECG, echo would likely show a regional wall motion abnormality or reduced LV function. 2). Consider NM stress test. If [place] has recurrent chest pain, consider ordering a NM stress test to evaluation for ischemia. Thank you for consulting cardiology. If you have any further questions, please feel free to reach out on teams. If you prefer an evaluation with cardiology after or before the recommended testing, please feel free to reconsult cardiology. /shelly/ TODD CHUNG CARDIOLOGY NURSE PRACTITIONER Signed: 01/18/2024 12:58 SERA COLEMAN [facility]
--- OUTSIDE RECORDS SUMMARY | 2024-01-27 12:20 | XMS_ITS | Encounter Summary ---
Author Name [facility] [place] [facility] [place] Address [address] [place] [address] Care Team Providers Care Deblocker Name Role Phone SARIAH GOMES Primary Care [...] PART A Sep 09, 2002 PART A [id number] [phone] JOAQUIN COUGHLIN S PATIENT MEDICARE (WNR) MEDICARE (M) PART B Sep 09, 2002 PART B [id number] JOAQUIN COUGHLIN S PATIENT MEDICARE (WNR) MEDICARE (M) PART A Sep 09, 2002 PART A [id number] JOAQUIN COUGHLIN S PATIENT MEDICARE (WNR) MEDICARE (M) PART B Sep 09, 2002 PART B [id number] JOAQUIN COUGHLIN PATIENT Selected Encounter This section includes the information on record at [place] for the Encounter. Date/Time Encounter Type Encounter Description Reason Pro vider Source Jan 26, 2024 12:27 PM Outpatient Encounter TELEPHONE/SURGERY IHE Encounter Template Text not used by [place] Plan of Treatment: Future Appointments (+ 6 months) and Future Tests (+/- 45 days) The Plan of Treatment section includes future care activities for the patient from all [place] [facility]. This section includes future appointments and future orders which are active, pending or scheduled. Future Appointments This section includes appointments that were scheduled to occur 6 months from the date of the Encounter, up to a maximum of 20 appointments. The data comes from all [facility]. Appointment Date/Time Appointment Type Appointme nt Facility Name Jan 27, 2024 11:47 AM [facility]ONE [facility] Jan 30, 2024 02:15 PM [facility] - SURGERY [facility] Feb 21, 2024 10:00 AM AMBULATORY - MEDICINE REINALDOKacey [facility] Active, Pending, and Scheduled Orders This section includes a listing of several types of active, pending, and scheduled orders, including clinic medications orders, diagnostic test orders, procedure orders and consult orders; where the start date of the order is 45 days before the date of the Encounter or 45 days after the date of theEncounter. The data comes from all [facility]. Test Date/Time Test Type Test Details Facility Name Jan 18, 2024 04:23 PM Consult Order CARDIAC EC HO OUTPT-ALL SITES Cons Distribution Dispatcher's Choice [facility] Jan 19, 2024 09:44 AM Consult Order COMMUNITY CARE-NUCLEAR MEDICINE [facility] [place] [place] Jan 19, 2024 12:10 PM Consult Order COMMUNITY CARE-DERMATOLOGY [facility] [place] [place] Social History: Smoking Status (Most current) and Tobacco Use (All prior to encounter date) This section includes the most current, and the historical, smoking and tobacco- related health factors from the [place] facility where the Encounter took place. Current Smoking Status This section includes the most current smoking, or tobacco-related health factor, from the [place] facility where the Encounter took place. Date/Time Current Smoking Status Comment Facil ity Dec 14, 2023 11:30 AM VA-TOBACCO FORMER USER [facility] Tobacco Use History This section includes a history of the smoking, or tobacco-related health factors, that were collected on or before the date of the Encounter. The data comes from the [place] facility where the Encounter took place. Date/Time Smoking Status/Tobacco Use Comment F acility Dec 14, 2023 11:30 AM [place]-TOBACCO QUIT 15 YRS OR MORE [facility] Oct 13, 2022 01:30 PM VA-TOBACCO FORMER USER [facility] Oct 13, 2022 01:30 PM VA-TOBACCO QUIT 15 YRS OR MORE [facility] Jul 27, 2021 10:00 AM VA-TOBACCO FORMER USER [facility] Jul 27, 2021 10:00 AM VA-TOBACCO QUIT 15 YRS OR MORE [facility] Jan 02, 2020 09:00 AM VA-TOBACCO FORMER USER [facility] Jan 02, 2020 09:00 AM VA-TOBACCO QUIT 15 YRS OR MORE [facility] Jul 21, 2018 03:00 PM VA-TOBACCO FORMER USER [facility] Jul 21, 2018 03:00 PM VA-TOBACCO QUIT 15 YRS OR MORE [facility] Dec 24, 2016 08:01 AM FORMER TOBACCO USER 7Y OR GREATE R [facility] Dec 23, 2015 08:23 AM FORMER TOBACCO USE >1Y <7Y [facility] Dec 26, 2014 10:32 AM FORMER TOBACCO USER 7Y OR GREATE R [facility] August 13, 2013 08:22 AM LIFETIME NON-TOBACCO USER [facility] August 30, 2006 08:38 AM FORMER TOBACCO USER 7Y OR GREATE R [facility] Advance Directives: All historical and current Section Date Range: From patient's date of to the date document was created. This section includes ALL of a patient's completed or amended [place] Advance and Rescinded Directives. The entries below indicate that a directive exists for the patient, but an actual copy is not included with this document. The data comes from all [facility]. Date Advance Directives Provider Source August 30, 2006 ADVANCE DIRECTIVE ARGENIS CRAMER [facility] Pathology Reports: +/- 30 days [...] the Encounter. The data comes from all [place] treatment facilities. Date/Time Pathology Report Provider Source Jan 06, 2024 11:16 AM LR SURGICAL PATHOL OGY REPORT: LOCAL TITLE: LR SURGICAL PATHOLOGY REPORT STANDARD TITLE: PATHOLOGY REPORT DATE OF NOTE: JAN 06, 2024@11:16:39 ENTRY DATE: JAN 06, 2024@11:16:39 AUTHOR: JOSE REESE COSIGNER: URGENCY: STATUS: COMPLETED $APHDR Reporting Lab: [facility] [CLIA# [id number]] [place] [address] - - - - - - - [...] - - - PATHOLOGY REPORT Accession No. [id number] - - - - - - - [...] - PATHOLOGY REPORT Accession No. [id number] - - - - - - [...] 0.1 cm. The specimen is inked. CE. [facility]: Microscopic examination performed. CI. 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 STAFF PATHOLOGIST Signed Jan 06, 2024@11:16 Performing Laboratory: Surgical Pathology Report Performed By: [facility] [CLIA# [id number]] [place] [address] $FTR - - - - - - [...] - - GERI COUGHLIN STANDARD FORM 515 ID:[id number] SEX:M :1935 AGE: 88 LOC:[id number] PCP: Sariah Gomes MD /shelly/ JOSE REESE M.D. STAFF PATHOLOGIST Signed: 01/06/2024 11:16 JOSE REESE [facility] Encounter Notes: All associated encounter notes This section contains the clinical notes associated to the Encounter. Date/Time Encounter Note(s) Provider Source Jan 26, 2024 12:27 PM DERMATOLOGY NURSIN G OUTPATIENT NOTE: LOCAL TITLE: DERMATOLOGY CLINIC NURSING NOTE STANDARD TITLE: DERMATOLOGY NURSING OUTPATIENT NOTE DATE OF NOTE: JAN 26, 2024@12:27 ENTRY DATE: JAN 26, 2024@12:27:19 AUTHOR: CHONG LE EXP COSIGNER: URGENCY: STATUS: COMPLETED Dermatology Clinic Nursing Note Allergies: Patient has answered NKA No new Allergies. Pre-op Nursing Note Patient Information: Premedications abx prior to dental work? No Pacemaker present? No Defibrillator present? No Deep Brain Stimulator present? No Other Implantable Device present? No Presently taking anticoagulants? Yes. aspirin Not discontinued preoperatively. MD aware. Bleeding or clotting disorder? No Covid symptoms on appt date? understands should he have flu/covid symptoms on or near his appt date he should discuss with the clinic and call me. Planned travel? No Procedure was explained expecting an hour appointment , wound care anticipated and follow up. I advised the patient he will have a nurse and staff doctor intermittently coming in and out of the room for supplies and checking progress of his procedure. Patient verbalized understanding. An appointment for skin surgery under local anesthesia was made for 01/29@215pm. I advised the patient he may eat, drink, and take all their regular medications. We discussed length of procedure and post op wound care. No questions verbalized . I will mail an appointment letter and procedure information including my contact number. /shelly/ CHONG LE RNpreparation supervisor Nurse Surgery Coordinator Signed: 01/26/2024 12:46 CHONG LE [facility]
--- OUTSIDE RECORDS SUMMARY | 2024-01-27 12:20 | XMS_ITS | Encounter Summary ---
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 GOMESMOLLY Y H [facility] Jan 11, 2024 02:14 PM SECONDARY Abnormal weight loss MIREYAMOLLY Y H [facility] Jan 11, 2024 02:14 PM SECONDARY Chest pain, unspecified MIREYA,MOLLY Y H [facility] Jan 11, 2024 02:14 PM SECONDARY Chronic kidney disease, unspecified MIREYA,MOLLY Y H [facility] Jan 11, 2024 02:14 PM SECONDARY Constipation, unspecified MIREYA,MOLLY Y H [facility] Jan 11, 2024 02:14 PM SECONDARY Encounter for immunization PEPE,JRT E [facility] Jan 11, 2024 02:14 PM SECONDARY Hyperlipidemia, unspecified MIREYA,MOLLY Y H [facility] Plan of Treatment: Future Appointments (+ 6 months) and Future Tests (+/- 45 days) The Plan of Treatment section includes future care activities for the patient from all [facility]. This section includes future appointments and future orders which are active, pending or scheduled. Future Appointments This section includes appointments that were scheduled to occur 6 months from the date of the Encounter, up to a maximum of 20 appointments. The data comes from all [place] treatment [facility]. Appointment Date/Time Appointment Type Appointme nt Facility Name Jan 27, 2024 11:47 AM AMBULATORY - NONE [facility] Jan 30, 2024 02:15 PM AMBULATORY - SURGERY [facility] Feb 21, 2024 10:00 AM AMBULATORY - MEDICINE [facility] Active, Pending, and Scheduled Orders This section includes a listing of several types of active, pending, and scheduled orders, including clinic medications orders, diagnostic test orders, procedure orders and consult orders; where the start date of the order is 45 days before the date of the Encounter or 45 days after the date of theEncounter. The data comes from all [place] treatment [facility]. Test Date/Time Test Type Test Details Facility Name Jan 18, 2024 04:23 PM Consult Order CARDIAC EC HO OUTPT-ALL SITES [employer] [facility] Jan 19, 2024 09:44 AM Consult Order COMMUNITY CARE-NUCLEAR MEDICINE [employer] [facility] Jan 19, 2024 12:10 PM Consult Order COMMUNITY CARE-DERMATOLOGY [employer] [facility] [facility] Lab Results: +/- 30 days of the encounter This section includes the Chemistry and Hematology Lab Results on record with [place] for the patient. Radiology Reports and Pathology Reports are provided separately, in subsequent sections. Lab Results This section contains the Chemistry/Hematology Results that were resulted 30 days before or 30 daysafter the date of the Encounter. Date/Time Source Result Type Result - Unit Interpretation Reference Range Comment Dec 14, 2023 12:33 PM [facility] TSH W/REFLEX TO FREE T4 Specimen Type: PLASMA No comment entered. Ordering Provider: MOLLY GOMES Report Released Date/Time: Dec 14, 2023 12:10 PM Reporting Lab: [facility] [place] [address] Performing Lab: [facility] [place] [address] TSH 5.10 u[IU]/mL H 0.35-4.94 FREE T4 0.83 ng/dL 0.70-1.48 Dec 14, 2023 12:33 PM [facility] B 12 Specimen Type: SERUM No comment entered. Ordering Provider: MOLLY GOMES Report Released Date/Time: Dec 14, 2023 12:10 PM Reporting Lab: [facility] [place] [address] Performing Lab: [facility] [place] [address] B 12 642 pg/mL 213-816 Dec 14, 2023 12:33 PM [facility] IRON GROUP Specimen Type: SERUM No comment entered. Ordering Provider: MOLLY GOMES Report Released Date/Time: Dec 14, 2023 12:10 PM Reporting Lab: [facility] [place] [address] Performing Lab: [facility] [place] [address] IRON 95 ug/dL 65-175 TIBC,CALCULATED 276 ug/dL 250-425 FERRITIN 495.9 ng/mL H 21.8-274.7 IRON SATURATION 34 20-50 TRANSFERRIN 221 mg/dL 163-382 Dec 14, 2023 12:33 PM [facility] LIPID PANEL,NON-FASTING Specimen Type: PLASMA No comment entered. Ordering Provider: MOLLY GOMES Report Released Date/Time: Dec 14, 2023 12:10 PM Reporting Lab: [facility] [place] [address] Performing Lab: [facility] [place] [address] CHOLESTEROL 186 mg/dL <199 .HDL 49 mg/dL >40 LDL CALCULATION 116 mg/dL H <99 VLDL CALCULATION 21 mg/dL <29 NON HDL CHOLESTEROL 137 mg/dL H <129 TRIG(NON FASTING) 106 mg/dL <149 Dec 14, 2023 12:33 PM [facility] FOLATE Specimen Type: SERUM No comment entered. Ordering Provider: MOLLY GOMES Report Released Date/Time: Dec 14, 2023 12:10 PM Reporting Lab: [facility] [place] [address] Performing Lab: [facility] [place] [address] FOLATE 11.5 ng/mL >7.0 Dec 14, 2023 12:33 PM [facility] HEMOGLOBIN A1C Specimen Type: BLOOD Comment: Values [...] Dec 14, 2023 12:10 PM Reporting Lab: [facility] [place] [address] Performing Lab: [facility] [place] [address] HEMOGLOBIN A1C 5.3 4.0-6.0 Dec 14, 2023 12:33 PM [facility] CBC Specimen Type: BLOOD No comment entered. Ordering Provider: MOLLY GOMES Report Released Date/Time: Dec 14, 2023 12:10 PM Reporting Lab: [facility] [place] [address] Performing Lab: [facility] [place] [address] WBC 5.5 4.0-11.0 RBC 4.59 L 4.60-6.20 HGB 14.0 g/dL 13.5-17.9 HCT 43.0 41-54 MCV 93.7 fL 80-100 MCH 30.5 pg 27-33 MCHC 32.6 g/dL 32.0-37.5 PLT 184 150-400 MPV 10.6 fL H 7.4-10.4 RDW 12.7 11.5-14.5 Dec 14, 2023 12:33 PM [facility] COMPREHENSIVE METABOLIC PANEL+MG Specimen Type: PLASMA No comment entered. Ordering Provider: MOLLY GOMES Report Released Date/Time: Dec 14, 2023 12:10 PM Reporting Lab: [facility] [place] [address] Performing Lab: [facility] [place] [address] CREATININE 1.2 mg/dL 0.7-1.2 UREA NITROGEN 23 [...] Pain Height Weight Body Mass Index Source Jan 11, 2024 01:25 PM 98.8 53 138/79 16 98 0 67 151 24 [place] [facility] Immunizations: All administered on the encounter date This section contains immunizations associated to the Encounter. Immunization Series Date Issued Reaction Comments INFLUENZA, HIGH-DOSE, TRIVALENT, PF Jan 10 Social History: Smoking Status (Most current) and Tobacco Use (All prior to encounter date) This section includes the most current, and the historical, smoking and tobacco- related health factors from the [place] facility where the Encounter took place. Current Smoking Status This section includes the most current smoking, or tobacco-related health factor, from the [place] facility where the Encounter took place. Date/Time Current Smoking Status Comment Facil ity Dec 14, 2023 11:30 AM VA-TOBACCO QUIT 15 YRS OR MORE [facility] Tobacco Use History This section includes a history of the smoking, or tobacco-related health factors, that were collected on or before the date of the Encounter. The data comes from the [place] facility where the Encounter took place. Date/Time Smoking Status/Tobacco Use Comment F acility Dec 14, 2023 11:30 AM VA-TOBACCO QUIT 15 YRS OR MORE [facility] Oct 13, 2022 01:30 PM VA-TOBACCO FORMER USER [facility] Oct 13, 2022 01:30 PM VA-TOBACCO QUIT 15 YRS OR MORE [facility] Jul 27, 2021 10:00 AM VA-TOBACCO FORMER USER [facility] Jul 27, 2021 10:00 AM VA-TOBACCO QUIT 15 YRS OR MORE [facility] Jan 02, 2020 09:00 AM VA-TOBACCO FORMER USER [facility] Jan 02, 2020 09:00 AM VA-TOBACCO QUIT 15 YRS OR MORE [facility] Jul 21, 2018 03:00 PM VA-TOBACCO FORMER USER [facility] Jul 21, 2018 03:00 PM VA-TOBACCO QUIT 15 YRS OR MORE [facility] Dec 24, 2016 08:01 AM FORMER TOBACCO USER 7Y OR GREATE R [facility] Dec 23, 2015 08:23 AM FORMER TOBACCO USE >1Y <7Y [facility] Dec 26, 2014 10:32 AM FORMER TOBACCO USER 7Y OR GREATE R [facility] August 13, 2013 08:22 AM LIFETIME NON-TOBACCO USER [facility] August 30, 2006 08:38 AM FORMER TOBACCO USER 7Y OR GREATE R [facility] Advance Directives: All historical and current Section Date Range: From patient's date of to the date document was created. This section includes ALL of a patient's completed or amended [place] Advance and Rescinded Directives. The entries below indicate that a directive exists for the patient, but an actual copy is not included with this document. The data comes from all [facility]. Date Advance Directives Provider Source August 30, 2006 ADVANCE DIRECTIVE ARGENIS CRAMER [facility] Pathology Reports: +/- 30 days of [...] the Encounter. The data comes from all [place] treatment facilities. Date/Time Pathology Report Provider Source Jan 06, 2024 11:16 AM LR SURGICAL PATHOL OGY REPORT: LOCAL TITLE: LR SURGICAL PATHOLOGY REPORT STANDARD TITLE: PATHOLOGY REPORT DATE OF NOTE: JAN 06, 2024@11:16:39 ENTRY DATE: JAN 06, 2024@11:16:39 AUTHOR: JOSE REESE COSIGNER: URGENCY: STATUS: COMPLETED $APHDR Reporting Lab: [facility] [CLIA# [id number]] [place] [address] - - - - - - - [...] - PATHOLOGY REPORT Accession No. [id number] - - - - - - - [...] - PATHOLOGY REPORT Accession No. [id number] - - - - - - - [...] 0.1 cm. The specimen is inked. CE. (D)[facility] MICROSCOPIC DESCRIPTION: Microscopic examination performed. CI. 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 STAFF PATHOLOGIST Signed Jan 06, 2024@11:16 Performing Laboratory: Surgical Pathology Report Performed By: [facility] [CLIA# [id number]] [place] [address] $FTR - - - - - - [...] - - MADYSONGERI NUNEZ STANDARD FORM 515 ID:[id number] SEX:M :1935 AGE: 88 LOC:[id number] PCP: Sariah Gomes MD /shelly/ JOSE REESE M.D. STAFF PATHOLOGIST Signed: 01/06/2024 11:16 JOSE REESE [facility] Encounter Notes: All associated encounter notes This section contains the clinical notes associated to the Encounter. Date/Time Encounter Note(s) Provider Source Jan 11, 2024 02:42 PM ADDENDUM: LOCAL TITLE: Addendum STANDARD TITLE: ADDENDUM DATE OF NOTE: JAN 11, 2024@14:42:50 ENTRY DATE: JAN 11, 2024@14:42:51 AUTHOR: ABEBE ARIAS EXP COSIGNER: URGENCY: STATUS: COMPLETED EDUCATION: BARRIERS/SPECIAL NEEDS: No barriers identified PREFERRED STYLE OF LEARNING: No preference stated Other: EKG done and reported to MJose Armando PARTICIPANT(s): /nolan ARIAS L.P.N, LPN Signed: 01/11/2024 14:44 Receipt Acknowledged By: 01/11/2024 15:39 /shelly/ Sariah Gomes MD Physician --- Original Document --- 01/11/24 MEDICINE CLINIC NURSING NOTE: TYPE OF VISIT: Appointment Check In Type of appointment: In-person appointment REASON FOR VISIT: Routine check up ALLERGIES: Patient has answered NKA VITAL SIGNS: Blood Pressure: 138/79 (01/11/2024 13:25) Pulse: 53 (01/11/2024:) Respiration: 16 (01/11/2024:) Temperature: 98.8 F [37.1 C] (01/11/2024:) Weight: 151 lb [68.49 kg] (01/11/2024:) Height: 67 in [170.2 cm] (01/11/2024:) BMI: 23.7 O2 Sat: 98% (01/11/2024:) Pain: 0 (01/11/2024) PAIN SCREEN: Patient is not having significant pain that they wish to discuss with their provider today. MEDICATION Over the Counter/Herbal Medications: The patient states that they take some outside medications and/or herbals. COVID-19 Immunization: Refused Pfizer Monovalent COVID-19 vaccine Immunization: COVID-19 ([employer]), MRNA, LNP-S, PF, AIME-SUCROSE, 30 MCG/0.3 ML (AGES 12+ YEARS) Refusal Reason: PATIENT DECISION Patient refuses all immunization(s) in the COVID-19 group Date Documented: 01/11/24 13:29 Influenza Immunization: Influenza, High-Dose, Trivalent, Preservative Free (Fluzone-Syringe) Administered: INFLUENZA, HIGH-DOSE, TRIVALENT, PF Date Administered: Jan 11, 2024 13:30 Autopsy Assistant: SANOFI PASTEUR Lot: [id number] Exp Date: Oct 08, 2024 Admin Route/Site: INTRAMUSCULAR/LEFT DELTOID Dosage: 0.5mL Vaccine Information Statement(s): INFLUENZA(FLU) VACC(INACTIVATED OR RECOMBINANT)VIS Nov 14, 2020 (LIBYAN) Order By: Policy Administered By: Abebe Arias The Influenza Vaccine Information Statement (VIS) was reviewed with the patient/caregiver which lists the benefits and risks of the vaccine and the risks of not receiving the Influenza vaccine. The patient/caregiver denied any prior severe reaction to this vaccine or its components or a severe allergic reaction, such as anaphylaxis, to any vaccine or any injectable therapy. The patient/caregiver gave verbal consent to receive the vaccine. /shelly/ ABEBE ARIAS L.P.N, LPN Signed: 01/11/2024 13:36 ABEBE ARIAS [facility] Jan 11, 2024 01:28 PM INTERNAL MEDICINE OUTPATIENT NOTE: LOCAL TITLE: MEDICINE CLINIC NURSING NOTE STANDARD TITLE: INTERNAL MEDICINE OUTPATIENT NOTE DATE OF NOTE: JAN 11, 2024@13:28 ENTRY DATE: JAN 11, 2024@13:28:16 AUTHOR: ABEBE ARIAS EXP COSIGNER: URGENCY: STATUS: COMPLETED MEDICINE CLINIC NURSING NOTE Has ADDENDA TYPE OF VISIT: Appointment Check In Type of appointment: In-person appointment REASON FOR VISIT: Routine check up ALLERGIES: Patient has answered NKA VITAL SIGNS: Blood Pressure: 138/79 (01/11/2024 13:25) Pulse: 53 (01/11/2024 13:25) Respiration: 16 (01/11/2024 13:25) Temperature: 98.8 F [37.1 C] (01/11/2024 13:25) Weight: 151 lb [68.49 kg] (01/11/2024 13:25) Height: 67 in [170.2 cm] (01/11/2024 13:25) BMI: 23.7 O2 Sat: 98% (01/11/2024 13:25) Pain: 0 (01/11/2024 13:25) PAIN SCREEN: Patient is not having significant pain that they wish to discuss with their provider today. MEDICATION Over the Counter/Herbal Medications: The patient states that they take some outside medications and/or herbals. COVID-19 Immunization: Refused Pfizer Monovalent COVID-19 vaccine Immunization: COVID-19 (PFIZER), MRNA, LNP-S, PF, AIME-SUCROSE, 30 MCG/0.3 ML (AGES 12+ YEARS) Refusal Reason: PATIENT DECISION Patient refuses all immunization(s) in the COVID-19 group Date Documented: 01/11/24 13:29 Influenza Immunization: Influenza, High-Dose, Trivalent, Preservative Free (Fluzone-Syringe) Administered: INFLUENZA, HIGH-DOSE, TRIVALENT, PF Date Administered: Jan 11, 2024 13:30 Autopsy Assistant: Osmosis PASTEUR Lot: [id number] Exp Date: Oct 08, 2024 Admin Route/Site: INTRAMUSCULAR/LEFT DELTOID Dosage: 0.5mL Vaccine Information Statement(s): INFLUENZA(FLU) VACC(INACTIVATED OR RECOMBINANT)VIS Nov 14, 2020 (LIBYAN) Order By: Policy Administered By: Abebe Arias The Influenza Vaccine Information Statement (VIS) was reviewed with the patient/caregiver which lists the benefits and risks of the vaccine and the risks of not receiving the Influenza vaccine. The patient/caregiver denied any prior severe reaction to this vaccine or its components or a severe allergic reaction, such as anaphylaxis, to any vaccine or any injectable therapy. The patient/caregiver gave verbal consent to receive the vaccine. /shelly/ ABEBE ARIAS L.P.N, LPN Signed: 01/11/2024 13:36 01/11/2024 ADDENDUM STATUS: COMPLETED EDUCATION: BARRIERS/SPECIAL NEEDS: No barriers identified PREFERRED STYLE OF LEARNING: No preference stated Other: EKG done and reported to M.D PARTICIPANT(s): /nolan ARIAS L.P.N, LPN Signed: 01/11/2024 14:44 Receipt Acknowledged By: * AWAITING SIGNATURE * SARIAH GOMES HABTE [facility] Jan 11, 2024 11:04 AM INTERNAL MEDICINE NOTE: LOCAL TITLE: MEDICINE CLINIC NOTE STANDARD TITLE: INTERNAL MEDICINE NOTE DATE OF NOTE: JAN 11, 2024@11:04 ENTRY DATE: JAN 07, 2024@21:17:08 AUTHOR: SARIAH GOMES EXP COSIGNER: URGENCY: STATUS: COMPLETED SUBJECT: CLINIC VISIT MEDICINE CLINIC NOTE Has ADDENDA GENERAL INTERNAL MEDICINE CLINIC PROGRESS NOTE GERI [...] and chronic health conditions. 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 Constipation has resolved, took Miralax which actually caused too loose of stools so he backed off. [place] also concerned today because recently he had a 10 minute bout of left anterior chest pressure at rest, w/o associated symptoms except for maybe some SOB?. In setting of high stress situation, brother on life support after falling and head injury. Has not had exertional symptoms, hx HTN, HLD (controlled), is age 88, former smoker, no personal hx CAD. Will be heading back to [place] for winter soon, but will be back in [place] mid Feb. for a wedding and can f/u with me at that time. Reviewed test results w// CHART REVIEW: 01/05/24: Most recent Dermatology visit 12/14/23: At our visit, we addressed new constipation, unexplained weight loss (weighed 185 in 2019, 160 a year ago, now 153), not eating and hydrating as much as he should, reviewed pertinent tests and hr business partner consultant notes Plan at that time: Labs (see orders) May need EGD, colonoscopy Nutrition referral Miralax RTC one month Note: rain in [place], leaving next month The following preventive care screening and other [...] Cataract, Senile, Unsp 3. Hypertension (SNOMED CT 64621677) 4. Hypothyroidism (SNOMED CT 42974603) 5. Hyperlipidemia 6. Hypermetropia/Hyperopia 7. Astigmatism, Unspec [...] Sister: Lung CA Brother: Stomach CA Brother: CAD/[place] SOCIAL HISTORY Relationships/Living: Lives with (Miah). Has children. 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 2) POLYETHYLENE GLYCOL 3350 ORAL PWDR TAKE 17 GRAMS BY ACTIVE MOUTH EVERY DAY NEEDED FOR CONSTIPATION 3) SILVER SULFADIAZINE 1% CREAM APPLY TO AFFECTED AREA ACTIVE TOPICALLY TWICE A DAY NEEDED FOR IRRITATED SKIN Pending Outpatient Medications Status 1) CALCIPOTRIENE 0.005% TOP CREAM APPLY THIN LAYER PENDING TOPICALLY TWICE A DAY 2) FLUOROURACIL 5% CREAM APPLY PEA SIZED AMOUNTS PENDING SMOOTHED TO A THIN LAYER TOPICALLY TWICE A DAY Active Non-VA Medications Status 1) Non-VA MULTI/MINERAL/ANTIOXIDANT TAB MOUTH ACTIVE ALLERGIES: No known allergies EXAM: PREVIOUS VITAL SIGNS: VITAL SIGNS: Blood Pressure: 138/79 (01/11/2024 13:25) Pulse: 53 (01/11/2024 13:) Respiration: 16 (01/11/2024:) Temperature: 98.8 F [37.1 C] (01/11/2024:) Weight: 151 lb [68.49 kg] (01/11/2024:) Height: 67 in [170.2 cm] (01/11/2024:) BMI: 23.7 O2 Sat: 98% (01/11/2024:) Blood Pressure: 156/82 (12/14/2023 11:) BP150/83 repeat Weight: 153 lb [69.40 kg] (12/14/2023:) Blood Pressure: 165/80 (10/13/2022:) recheck 164/84 Weight: 160.3 lb [72.71 kg] (10/13/2022:) GEN: Alert, no acute distress EENT: Pupils equal, round, reactive to light. No icterus. Lungs: Clear to auscultation throughout Cardiac: Regular rate and rhythm, no murmurs, rubs or gallops, JVP normal/not elevated Abdomen: Normal bowel sounds, soft, non tender, no hepatosplenomegaly or masses, no CVA tenderness or masses Extremities: No peripheral edema, DP pulses 2+, no cyanosis Neuro: CN's 2-12 intact, able to get on/off exam table without assistance. Strength grossly intact. Psych: actively engaged in conversation, full range of affect, no psychomotor slowing, no signs of agitation TEST RESULTS: Collection time: Dec 14, 2023@12:33 Test Name [...] FERRITIN 495.9 H ng/mL 21.8 - 274.7 Collection time: Oct 13, 2022@14:58 Test Name Result Units Range --------- ------ ----- ----- TSH 5.79 H uIU/mL 0.35 - 4.94 FREE T4 0.85 ng/dL 0.70 - 1.48 Collection time: Sep 10, 2022@10:15 Test Name Result Units Range --------- ------ ----- ----- CREATININE 1.4 H mg/dL 0.7 - 1.2 .CREAT EGFR(CKD-EPI) 50 L Ref: >=60 ASSESSMENT AND PLAN Single episode of chest pressure at rest (see HPI) Abnormal ECG Constipation Unintentional weight loss, weighed 185 in 2019, 160 a year ago, 12/2023 153 Hypothyroidism HTN HLD, CKD 3, Dysphagia, Plan: EKG today: sinus channing rate 46, 1st degree AVB, leftward axis, normal QRS, QT intervals. Q waves inferior leads Comparison: in [place] 2006 Cardiology consult Will have take daily aspirin for now and rx NTG to have on hand, advised to seek emergency care if symptoms recur. RTC next month REMINDERS: Time spent today, including: Reviewing interim MSP [...] health team members, Entering/signing orders, Completing reminders, Composing after visit summary verbally and in writing Coding the encounter. Total Time:50 MIN Sariah Gomes MD General [facility] PACT JEAN PAUL 4F /shelly/ Sariah Gomes MD Physician Signed: 01/11/2024 14:58 01/18/2024 ADDENDUM STATUS: COMPLETED Called with recommendations from cardiology e consultation [place] also reports 2 additional episodes since our visit of chest tightness relieved by taking deep breaths and no associated symptoms. Has been taking daily aspirin, and took one extra aspirin at the time of the episodes which lasted a few minutes. Most recent episode was today, preceded by doing work with his chain saw. He correlates these episodes with (psychological) stress which we discussed at our 01/11/24 visit. Attending this weekend. I urged to take NTG and call 911 if he experiences another episode. /shelly/ Sariah Gomes MD Physician Signed: 01/18/2024 16:30 SARIAH GOMES [facility]
--- OUTSIDE RECORDS SUMMARY | 2024-01-27 12:20 | XMS_ITS | Encounter Summary ---
Author Name [facility] [place] Address [address] [place] [address] Care Team Providers Care Cis Coordinator Name Role Phone JACKELYN GOMES Primary Care Provider Unavailpat e Insurance Providers: All historical and current [...] PART A Sep 09, 2002 PART A [id number] [phone] JOAQUIN COUGHLIN S PATIENT MEDICARE (WNR) MEDICARE (M) PART B Sep 09, 2002 PART B [id number] [phone] JOAQUIN COUGHLIN S PATIENT MEDICARE (WNR) MEDICARE (M) PART A Sep 09, 2002 PART A [id number] JOAQUIN COUGHLIN S PATIENT MEDICARE (WNR) MEDICARE (M) PART B Sep 09, 2002 PART B [id number] JOAQUIN COUGHLIN PATIENT Selected Encounter This section includes the information on record at [place] for the Encounter. Date/Time Encounter Type Encounter Description Reason Provider Source Feb 24, 2023 11:29 AM CASE MANAGEMENT ADMIN PAT ACTIVTIES (MASNONCT) LARA HENDRICKSON Encounter Template Text not used by [place] Plan of Treatment: Future Appointments (+ 6 months) and Future Tests (+/- 45 days) The Plan of Treatment section includes future care activities for the patient from all [place] [facility]. This section includes future appointments and future orders which are active, pending or scheduled. Future Appointments This section includes appointments that were scheduled to occur 6 months from the date of the Encounter, up to a maximum of 20 appointments. The data comes from all [facility] facilities. Appointment Date/Time Appointment Type Appointme nt Facility Name Apr 19, 2023 01:30 PM AMBULATORY - NONE Lindsey CURTIS [facility] Active, Pending, and Scheduled Orders This section [...] PM Consult Order COMMUNITY CARE-DERMATOLOGY MOHS Cons Veneer Stapler's Choice [facility] Social History: Smoking Status (Most current) and Tobacco Use (All prior to encounter date) This section includes the most current, and the historical, smoking and tobacco- related health factors from the [place] facility where the Encounter took place. Current Smoking Status This section includes the most current smoking, or tobacco-related health factor, from the [place] facility where the Encounter took place. Date/Time Current Smoking Status Comment Facil ity Oct 13, 2022 01:30 PM VA-TOBACCO QUIT 15 YRS OR MORE [facility] Tobacco Use History This section includes a history of the smoking, or tobacco-related health factors, that were collected on or before the date of the Encounter. The data comes from the [place] facility where the Encounter took place. Date/Time Smoking Status/Tobacco Use Comment F acility Oct 13, 2022 01:30 PM VA-TOBACCO QUIT 15 YRS OR MORE [facility] Jul 27, 2021 10:00 AM VA-TOBACCO FORMER USER [facility] Jul 27, 2021 10:00 AM VA-TOBACCO QUIT 15 YRS OR MORE [facility] Jan 02, 2020 09:00 AM VA-TOBACCO FORMER USER [facility] Jan 02, 2020 09:00 AM VA-TOBACCO QUIT 15 YRS OR MORE [facility] Jul 21, 2018 03:00 PM VA-TOBACCO FORMER USER [facility] Jul 21, 2018 03:00 PM VA-TOBACCO QUIT 15 YRS OR MORE [facility] Dec 24, 2016 08:01 AM FORMER TOBACCO USER 7Y OR GREATE R [facility] Dec 23, 2015 08:23 AM FORMER TOBACCO USE >1Y <7Y [facility] Dec 26, 2014 10:32 AM FORMER TOBACCO USER 7Y OR GREATE R [facility] August 13, 2013 08:22 AM LIFETIME NON-TOBACCO USER [facility] August 30, 2006 08:38 AM FORMER TOBACCO USER 7Y OR GREATE R [facility] Advance Directives: All historical and current Section Date Range: From patient's date of to the date document was created. This section includes ALL of a patient's completed or amended [place] Advance and Rescinded Directives. The entries below indicate that a directive exists for the patient, but an actual copy is not included with this document. The data comes from all [facility]. Date Advance Directives Provider Source August 30, 2006 ADVANCE DIRECTIVE ARGENIS CRAMER [facility] Pathology Reports: +/- 30 days of [...] the Encounter. The data comes from all [facility] facilities. Date/Time Pathology Report Provider Source [...] sectioned. Specimen submitted entirely in 1 cassette. [facility]/abbey Devlin, or my qualified designee, have supervised the pathologist senior court office assistant in the gross examination and description of the specimens. I have personally reviewed the stroke coordinator of the gross description and all specimen [...] Report Performed By: Lindsey CURTIS [facility] [CLIA# [id number]] [address] [place] [id number] $FTR - - - - - - - - - - - - - - - - - - - - - - - - - - - - - - - - - - - - - - - - (End of report) JON GRIGGS MD [facility] Date Feb 23, 2023 - - - - - - - - - - - - - - - - - - - - - - - - - - - - - - - - - - - - - - - - GERI COUGHLIN STANDARD FORM 515 ID:[id number] SEX:M :1935 AGE: 87 LOC:ROSA PCP: /shelly/ JON GRIGGS DO PATHOLOGIST Signed: 02/24/2023 09:09 JON GRIGGS [facility] Encounter Notes: All associated encounter notes This section contains the clinical notes associated to the Encounter. Date/Time Encounter Note(s) Provider Source Feb 24, 2023 11:29 AM CONTRACT DESIGN AGENT REFER RAL NOTE: LOCAL TITLE: TRAVELING COORDINATOR NOTE STANDARD TITLE: CONTRACT DESIGN AGENT REFERRAL NOTE DATE OF NOTE: FEB 24, 2023@11:29 ENTRY DATE: FEB 24, 2023@11:29:38 AUTHOR: LARA HENDRICKSON EXP COSIGNER: URGENCY: STATUS: COMPLETED LOCAL TITLE: CONSULT DERMATOLOGY STANDARD TITLE: DERMATOLOGY CONSULT DATE OF NOTE: FEB 17, 2023@13:59 ENTRY DATE: FEB 17, 2023@13:59:08 AUTHOR: NEVILLE BOSCH COSIGNER: URGENCY: STATUS: COMPLETED CONSULT DERMATOLOGY Has ADDENDA Medications reviewed and reconciled Vital signs reviewed see nursing note CC: Pt presents today for skin lesions HPI: Pt with history of BCC (A) Skin, right postauricular neck (B) Skin, left postauricular neck . Presents for skin cancer screening. He denies any new or changing skin lesions Review of System: no itching no bleeding skin lesions, no fever chills or weight loss Physical Examination Pleasant Well developed well nourished individual in no apparent distress, Alert oriented and cooperative with exam. Skin phototype I-II examination of the cutaneous surface including face, eyelids, mouth, scalp, neck, upper extremities, chest, abdomen, back, lower extremities revealed: Involving the trunk and extremities, there is a low density of regular 1 to 3 mm light brown macules consistent with benign nevi. There are a few truncal yvloh-ga-pclxw plaques consistent with seborrheic keratoses. 6 red gritty papules of the arms and head and trunk c/w AK. Pearly papule (A) Skin, right postauricular neck (B) Skin, left postauricular neck keratotic papule left arm Assessment/Plan: 1. Elliot keratoses: benign; reassurance provided 2. Nevi: none concerning on today's exam, recommend serial monitoring 3. BCC (A) Skin, right postauricular neck (B) Skin, left postauricular neck offered excision vs mohs pt prefers mohs 4. NUB left arm r/o SCC shave Bx today CRYO SHAVE BX Shave Biopsy Neoplasm of uncertain behavior,left arm Both oral and written consents for the procedure were obtained, specifically discussing the possible risks of scarring, bleeding, infection, discomfort, need for a second procedure and possible reaction to the local anesthetic. The tray sterilization strip was confirmed to be blue. Subsequently, the patient was prepped and draped in the standard sterile fashion, and the lesion to be biopsied was cleansed with rubbing alcohol. Anesthesia was obtained by subcutaneous infusion of buffered 1% lidocaine with 1:100,000 epinephrine. A shave biopsy was performed on the lesion, located on the patient's left arm Hemostasis was achieved by the application of 25% aluminum chloride as well as firm pressure and spot eletrofulguration when needed. Blood loss was minimal. The patient tolerated the procedure well, and the wound was dressed with Vaseline and a temporary dressing. The patient is to follow up in the appropriate interval for followup care. The patient was given both oral and written wound care instructions. /shelly/ NEVILLE BOSCH MD RV TECHNICIAN Signed: 02/17/2023 14:14 02/24/2023 ADDENDUM STATUS: COMPLETED LEFT ARM, SKIN SHAVE BIOPSY: - INVASIVE SQUAMOUS CELL CARCINOMA. - Biopsy edge free from carcinoma. PLAN: Pathology report shows as above Derm nursing, please inform patient of biopsyclear margins results /shelly/ NEVILLE BOSCH MD RV TECHNICIAN Signed: 02/24/2023 10:07 Receipt Acknowledged By: * AWAITING SIGNATURE * [facility] SHERMAN [facility] ===== Note: TIME ZONE is local if not indicated Inter-facility Results: Results are available via Display Results action. No local RASHIDA results or Medicine results available for this consult ======= END ======== /shelly/ LUIS ALBERTO VILLATORO TRAVELING COORDINATOR Signed: 02/24/2023 11:29 Receipt Acknowledged By: 02/24/2023 16:38 /shelly/ BRIAN SIMMONS MD RESIDENT LARA HENDRICKSON [facility]
--- OUTSIDE RECORDS SUMMARY | 2024-01-27 12:20 | XMS_ITS | Encounter Summary ---
Author Name [facility] [place] Address [address] [place] [address] Care Team Providers Care Escape Wheel Tooth Cutter Name Role Phone SARIAH GOMES Primary [...] PART A Sep 09, 2002 PART A [id number] JOAQUIN COUGHLIN S PATIENT MEDICARE (WNR) MEDICARE (M) PART B Sep 09, 2002 PART B [id number] JOAQUIN COUGHLIN S PATIENT MEDICARE (WNR) MEDICARE (M) PART A Sep 09, 2002 PART A [id number] [id number] NULLJOAQUIN S PATIENT MEDICARE (WNR) MEDICARE (M) PART B Sep 09, 2002 PART B [id number] [id number] JOAQUIN COUGHLIN S PATIENT Selected Encounter This section includes the information on record at [place] for the Encounter. Date/Time Encounter Type Encounter Description Reason Provider Source Jan 20, 2024 01:22 PM Outpatient Encounter COMMUNITY CARE CONSULT MIGUEL ÁNGEL GILL Encounter Template Text not used by [place] Plan of Treatment: Future Appointments (+ 6 months) and Future Tests (+/- 45 days) The Plan of Treatment section includes future care activities for the patient from all [place] [facility]. This section includes future appointments and future orders which are active, pending or scheduled. Future Appointments This section includes appointments that were scheduled to occur 6 months from the date of the Encounter, up to a maximum of 20 appointments. The data comes from all [facility]. Appointment Date/Time Appointment Type Appointme nt Facility Name Jan 27, 2024 11:47 AM [facility] Jan 30, 2024 02:15 PM AMBULATORY - SURGERY ADDIE BULLOCK [facility] Feb 21, 2024 10:00 AM [facility] Active, Pending, and Scheduled Orders This section includes a listing of several types of active, pending, and scheduled orders, including clinic medications orders, diagnostic test orders, procedure orders and consult orders; where the start date of the order is 45 days before the date of the Encounter or 45 days after the date of theEncounter. The data comes from all [facility]. Test Date/Time Test Type Test Details Facility Name Jan 18, 2024 04:23 PM Consult Order CARDIAC EC HO OUTPT-ALL SITES Cons Medical Service Representative's Choice [facility] Jan 19, 2024 09:44 AM Consult Order COMMUNITY CARE-NUCLEAR MEDICINE [facility] Medical Service Representative's [facility] Jan 19, 2024 12:10 PM Consult Order COMMUNITY CARE-DERMATOLOGY Cons Medical Service Representative's [facility] Social History: Smoking Status (Most current) and Tobacco Use (All prior to encounter date) This section includes the most current, and the historical, smoking and tobacco- related health factors from the [place] facility where the Encounter took place. Current Smoking Status This section includes the most current smoking, or tobacco-related health factor, from the [place] facility where the Encounter took place. 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 The data comes from the [place] facility where the Encounter took place. Date/Time Smoking Status/Tobacco Use Comment F acility Dec 14, 2023 11:30 AM [place]-TOBACCO QUIT 15 YRS OR MORE [facility] Oct 13, 2022 01:30 PM VA-TOBACCO FORMER USER [facility] Oct 13, 2022 01:30 PM VA-TOBACCO QUIT [...] ALL of a patient's completed or amended [place] Advance and Rescinded Directives. The entries below indicate that a directive exists for the patient, but an actual copy is not included with this document. The data comes from all [facility]. Date Advance Directives Provider Source August 30, 2006 ADVANCE DIRECTIVE ARGENIS CRAMER [facility] Pathology Reports: +/- 30 [...] the Encounter. The data comes from all [place] treatment facilities. Date/Time Pathology Report Provider Source Jan 06, 2024 11:16 AM LR SURGICAL PATHOL OGY REPORT: LOCAL TITLE: LR SURGICAL PATHOLOGY REPORT STANDARD TITLE: PATHOLOGY REPORT DATE OF NOTE: JAN 06, 2024@11:16:39 ENTRY DATE: JAN 06, 2024@11:16:39 AUTHOR: JOSE REESE COSIGNER: URGENCY: STATUS: COMPLETED $APHDR Reporting Lab: [facility] [CLIA# [id number]] [place] [address] - - - - - - - [...] - - - PATHOLOGY REPORT Accession No. [id number] - - - - - - - [...] - PATHOLOGY REPORT Accession No. [id number] - - - - - - - [...] 0.1 cm. The specimen is inked. CE. (D)[facility] MICROSCOPIC DESCRIPTION: Microscopic examination performed. CI. 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 STAFF PATHOLOGIST Signed Jan 06, 2024@11:16 Performing Laboratory: Surgical Pathology Report Performed By: [facility] [CLIA# [id number]] [place] [address] $FTR - - - - - - [...] - - GERI COUGHLIN STANDARD FORM 515 ID:[id number] SEX:M :1935 AGE: 88 LOC:[id number] PCP: Sariah Gomes MD /shelly/ JOSE REESE M.D. STAFF PATHOLOGIST Signed: 01/06/2024 11:16 JOSE REESE [facility] Encounter Notes: All associated encounter notes This section contains the clinical notes associated to the Encounter. Date/Time Encounter Note(s) Provider Source Jan 20, 2024 01:25 PM NONVA NOTE: LOCAL TITLE: COMMUNITY CARE-CARE COORDINATION PLAN NOTE STANDARD TITLE: NONVA NOTE DATE OF NOTE: JAN 20, 2024@13:25 ENTRY DATE: JAN 20, 2024@13:25:33 AUTHOR: MIGUEL ÁNGEL GILL EXP COSIGNER: URGENCY: STATUS: COMPLETED Community Care Consult: [facility]-NUCLEAR MEDICINE Consult No: [id number] [facility] Referral #: [id number] Chief Complaint: MYOCARDIAL PERFUSION PHARMACOLOGIC STRESS/REST ALISIA Patient Admitted? No Level of Care Coordination Moderate Care Coordination was determined from: Chart Review Facility Community Care Office Contact Care Coordination Point of Contact: Ligia Turpin Phone Number: [phone] Services: Basic Care Coordination Services Monitoring and coordination of Rehab/PT Services Direct communication to referring provider Care management, if appropriate Plan: Proceed with scheduling /shelly/ MIGUEL ÁNGEL GILL RN Referral Farrowing Worker Signed: 01/20/2024 13:27 MIGUEL ÁNGEL GILL [facility] Jan 20, 2024 01:22 PM NONVA NOTE: LOCAL TITLE: COMMUNITY CARE-CARE COORDINATION PLAN NOTE STANDARD TITLE: NONVA NOTE DATE OF NOTE: JAN 20, 2024@13:22 ENTRY DATE: JAN 20, 2024@13:23:03 AUTHOR: MIGUEL ÁNGEL GILL EXP COSIGNER: URGENCY: STATUS: COMPLETED Community Care Consult: [facility]-DERMATOLOGY Consult No: [id number] [facility] Referral #: [id number] Chief Complaint: SCC, L inferior helix, 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 No Level of Care Coordination Complex/Chronic Care Coordination was determined from: Chart Review Facility Community Care Office Contact Care Coordination Point of Contact: Bartolo Robles Phone Number: [phone] Services: Moderate Care Coordination Services Case Management, if appropriate Direct communications with interdisciplinary team Plan: Proceed with scheduling /es/ MIGUEL ÁNGEL GILL RN Referral Farrowing Worker Signed: 01/20/2024 13:25 MIGUEL ÁNGEL GILL [facility]
[2024-01-27 12:25] LABS: Chloride* 102 mmol/L (96-114); Potassium* 3.9 mmol/L (3.6-5.1); Sodium* 137 mmol/L (135-149)
[2024-01-27 12:28] LABS: Anion Gap 8 mEq/L (7-15); Blood Urea Nitrogen* 36 mg/dL (7-30); Carbon Dioxide* 27 mmol/L (20-32); Creatinine* 1.6 mg/dL (0.5-1.5); Est. Creatinine Clearance* 32.96; Estimated Glomerular Filt Rate 42 ml/min
[2024-01-27 12:29] LABS: Calcium* 8.9 mg/dL (8.4-10.6); Glucose* 93 mg/dL (60-115); Magnesium* 2.4 mg/dL (1.5-2.6)
[2024-01-27 12:44] LABS: NT Pro B Type NatriureticPept* 1760 pg/mL
[2024-01-27 12:50] LABS: INR 1.04 (0.91-1.10); Prothrombin Time 14.3 Seconds
[2024-01-27 12:51] LABS: Partial Thromboplastin Time* 48 Seconds (23-33)
[2024-01-27] MEDS: HEPARIN 25,000 UNIT/500 ML BAG 16.88 UNIT IV (13:02)
[2024-01-27] MEDS: HEPARIN 5,000 UNIT/0.5 ML INJ 4000 UNIT IVP (13:04)
[2024-01-27] MEDS: ASPIRIN 81 MG TAB.CHEW 324 MG PO (13:45)
[2024-01-27 15:49] LABS: Troponin, Point-of-Care* 0.18 ng/ml (0.01-0.04)
== END 2024-01-27 14:00 | disposition short-term general hospital (02) ==
PROVIDERS: Emergency Provider Family Medicine; PCP Internal Medicine
DX: I21.4 Non-ST elevation (NSTEMI) myocardial infarction (principal); R94.39 Abnormal result of other cardiovascular function study
CPT/HCPCS: 36415; 80048; 83735; 83880; 84484; 85025; 85610; 85730; 93005; 96374; 99285; 99291; 99292; A9270; J1644

== ENCOUNTER 2024-01-27 14:00 | Outpatient (CLI) | payer OTHER, MEDICARE, SELFPAY ==
--- OUTSIDE RECORDS SUMMARY | 2024-02-10 23:33 | XMS_ITS | Continuity of Care Document ---
Author Name [facility] Organization [facility] Care Team Providers Care Linen Controller Name Role Phone [facility] Unavailable Unavailable Problems Combined list of problems from Department of Defense and [facility] Affairs facilities. It does not include entries that were removed or entered in error. Problem Status Onset Date Problem Type Date of Resolution Comments Source Actinic keratosis Active Condition [facility] Allergic rhinitis Active Condition [facility] Astigmatism, Unspec Active Condition 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 Nov 22, 2022 Entered By: Phil GOMES Comment: 11/19/2022 [facility] Basal cell carcinoma of skin Active Condition [facility] Benign prostatic hyperplasia Active Condition [facility] Cataract, Senile, Unsp Active Condition [facility] Chronic kidney disease stage 3 Active Condition [facility] Coronary atherosclerosis Active Condition [facility] Dysphagia Active Condition [facility] Former heavy tobacco smoker Active Condition [facility] GERD Active Condition [facility] Hydrocele Nos Active Condition [facility] Hypercholesterolemia * (ICD-9-CM 272.0) Active Condition [facility] Hyperlipidemia Active Condition 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) Active Condition [facility] Pain of left shoulder joint Active Condition [facility] Presbyopia Active Condition [facility] PROSTATE-BENING LOC HYPERPLASIA Active Condition [facility] Solitary nodule of lung Active Condition [facility] Diagnosis: ICD-10-CM I21.4 Non-ST elevation (NSTEMI) myocardial infarction Active Diagnosis [facility] Diagnosis: ICD-10-CM I50.9 Heart failure, unspecified Active Diagnosis [facility] Admit Reason: UNSTABLE ANGINA,HEP GTT Active Diagnosis [facility] Diagnosis: ICD-10-CM R94.31 Abnormal electrocardiogram [ECG] [EKG] Active Diagnosis [facility] Diagnosis: ICD-10-CM 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 Diagnosis [facility] Diagnosis: ICD-10-CM D48.5 Neoplasm of uncertain behavior of skin Active Diagnosis [facility] Diagnosis: ICD-10-CM K59.00 Constipation, unspecified Active Diagnosis [facility] Diagnosis: ICD-10-CM Z71.2 Person consulting for explanation of exam or test findings Active Diagnosis [facility] Diagnosis: ICD-10-CM Z71.9 Counseling, unspecified Active Diagnosis [facility] Diagnosis: ICD-10-CM Z23 Encounter for immunization Active Diagnosis [facility] Diagnosis: ICD-10-CM Z46.1 Encounter for fitting and adjustment of hearing aid Active Diagnosis [facility] Diagnosis: ICD-10-CM R13.12 Dysphagia, oropharyngeal phase Active Diagnosis [facility] Diagnosis: ICD-10-CM C44.41 Basal cell carcinoma of skin of scalp and neck Active Diagnosis [facility] Diagnosis: ICD-10-CM L57.0 Actinic keratosis Active Diagnosis [facility] Diagnosis: ICD-10-CM H90.3 Sensorineural hearing loss, bilateral Active Diagnosis [facility] Diagnosis: ICD-10-CM M19.012 Primary osteoarthritis, left shoulder Active Diagnosis [facility] Diagnosis: ICD-10-CM M25.512 Pain in left shoulder Active Diagnosis [facility] Medications Combined list of outpatient medications from Department of Defense and Veterans Affairs facilities.Medications provided include 1) outpatient medications from the last 15 months, and 2) patient-reported medications. Medication Details Route Status Patient Instructions Prescription Expires Prescription Number Last Dispense Date Ordering Provider Order Date Order Qty Source ASPIRIN 81MG TAB,EC TAKE ONE TABLET BY MOUTH EVERY DAY FOR HEART DISEASE ORAL ACTIVE 04/30/2024 [id number] JULIET SMART 2023 90 [place] [facility] ATORVASTATI N CA 40MG TAB TAKE ONE TABLET BY MOUTH EVERY DAY FOR CHOLESTE ROL ORAL ACTIVE 04/30/2024 [id number] 4 JULIET SMART S 2023 90 [place] [facility] [facility] [place] 0.005% CREAM,TOP APPLY THIN LAYER [...] APPLY TO NOSE, EYES, MOUTH. TOPICA L 02/04/2024 [id number] [facility] SANCHES 2023 60 [facility] [place] 0.005% CREAM,TOP APPLY THIN LAYER TOPICALL Y TWICE A DAY ACTINIC KERATOSI S MIX WITH EQUAL AMOUNT OF FLUOROUR ACIL CREAM AND APPLY TO DESIGNAT ED AREA(S). USE FOR 4-7 DAYS DIRECTED . MIX WITH EQUAL AMOUNT OF FLUOROUR ACIL CREAM AND APPLY TO DESIGNAT ED AREA(S). USE FOR 4-7 DAYS DIRECTED . TOPICA L 12/19/2022 [id number] MARYJANE IBARRA V 2022 60 [facility] CLOPIDOGREL BISULFATE 75MG TAB TAKE ONE TABLET BY MOUTH EVERY DAY FOR 1 YEAR AFTER STENT THROUGH 01/28/25 ORAL ACTIVE 04/30/2024 [id number] TATYDANIELLEJULIET STEPHENS S 2023 90 [place] [facility] FLUOROURACI L 5% CREAM,TOP APPLY PEA SIZED [...] NITROGEN TREATMEN T IN CLINIC. TOPICA L 02/04/2024 [id number] LAWANDA SANCHES E [address] [facility] FLUOROURACI L 5% CREAM,TOP APPLY THIN LAYER TOPICALL Y TWICE A DAY ACTINIC KERATOSI S MIX WITH EQUAL AMOUNT OF CALCIPOT RIENE CREAM AND APPLY TO DESIGNAT ED AREA(S). USE FOR 4-7 DAYS DIRECTED . MIX WITH EQUAL AMOUNT OF CALCIPOT RIENE CREAM AND APPLY TO DESIGNAT ED AREA(S). USE FOR 4-7 DAYS DIRECTED . TOPICA L 12/19/2022 [id number] MARYJANE IBARRA V [address] [facility] HYDROCHLORO THIAZIDE 25MG/LISINO PRIL 20MG TAB TAKE 1 TABLET BY MOUTH EVERY MORNING FOR BLOOD PRESSURE . ORAL SUSPEND ED 01/31/2025 [id number] 4 JULIET SMART [address] [facility] HYDROCHLORO THIAZIDE 25MG/LISINO PRIL 20MG TAB TAKE 1 TABLET BY MOUTH EVERY MORNING FOR BLOOD PRESSURE . ORAL DISCONT INUED BY PROVIDE R 06/13/2024 [id number] JACKELYN GOMES [address] [facility] HYDROCHLORO THIAZIDE 25MG/LISINO PRIL 20MG TAB TAKE 1 TABLET BY MOUTH EVERY MORNING FOR BLOOD PRESSURE . ORAL DISCONT INUED 03/24/2023 [id number] ROWDY EAST A [address] [facility] HYDROCHLORO THIAZIDE 25MG/LISINO PRIL 20MG TAB TAKE ONE TABLET BY MOUTH EVERY MORNING FOR BLOOD PRESSURE (ROWDY LATHAM ; [facility] ORAL 03/17/2023 [id number] 3 SMILEYEMERALDABELINO 2022 14 [facility] ISOSORBIDE MONONITRATE 30MG TAB,SA TAKE ONE TABLET BY MOUTH EVERY DAY FOR CHEST PAIN ORAL ACTIVE 04/30/2024 [id number] 4 JULIET SMART [address] [facility] METOPROLOL SUCCINATE 25MG TAB,SA TAKE ONE TABLET BY MOUTH EVERY DAY FOR CHEST PAIN ORAL ACTIVE 04/30/2024 [id number] JULIET SMART S [address] [facility] MULTI/PLUM PACKER AL/ANTIOXID ANT TAB MOUTH EVERY DAY ORAL ACTIVE JACKELYN GOMES [address] [facility] NITROGLYCER IN 0.4MG TAB,SUBLING UAL DISSOLVE ONE TABLET UNDER THE TONGUE EVERY 5 MINUTES FOR UP TO 3 DOSES IF NEEDED FOR CHEST PAIN SUBLIN GUAL ACTIVE 02/10/2024 [id number] 4 JACKELYN GOMES [address] [facility] POLYETHYLEN E GLYCOL 3350 PWDR,ORAL TAKE 17 GRAMS BY MOUTH EVERY DAY NEEDED FOR CONSTIPA TION ORAL ACTIVE 12/14/2024 [id number] 4 JACKELYN GOMES [address] [facility] SILVER SULFADIAZIN E 1% CREAM,TOP APPLY TO AFFECTED AREA TOPICALL Y TWICE A DAY NEEDED FOR IRRITATE D SKIN TOPICA L ACTIVE 10/11/2024 [id number] JACKELYN GOMES [address] [facility] Immunizations Combined list of available immunizations from the Department of Defense and [facility] Affairs facilities. Immunization Series Date Given Administered By Site Reaction Lot Number CVX Code Drug Packing Room Inspector Status Comments Source INFLUENZA, HIGH-DOSE, TRIVALENT, PF 2023 KATYA CANTU E LEFT DELTO ID [id number] A [address] [facility] INFLUENZA, HIGH-DOSE, QUADRIVALENT 2022 BOOGIE ROJAS A LEFT DELTO ID [id number] A [address] [facility] TDAP 2022 MARCUS ALMANZA LEFT DELTO ID L [address] [facility] INFLUENZA, HIGH-DOSE, QUADRIVALENT 2021 197 complet ed Partner:Rosaline JACKMAN.Admin istered by:[facility] [id number].( [id number]).NDC:[id number] .Address: [address] [place] [address] .[phone] Dosage: ML 0.7 [facility] INFLUENZA, INJECTABLE, QUADRIVALENT, PRESERVATIVE FREE [address] [facility] COVID-19 (MODERNA), MRNA, LNP-S, PF, 100 MCG/0.5ML DOSE OR 50 MCG/0.25ML DOSE [address] [facility] COVID-19 (MODERNA), MRNA, LNP-S, PF, 100 MCG/0.5ML DOSE OR 50 MCG/0.25ML DOSE 1 [address] [facility] INFLUENZA, INJECTABLE, QUADRIVALENT, PRESERVATIVE FREE [address] [facility] INFLUENZA, SEASONAL, INJECTABLE, PRESERVATIVE FREE 2018 NONE 140 complet ed Right Deltoid (IM) 0.5ml, Lot #:[id number] Exp 10-09-2019 , Name:FLUA LISA QUADRIVAL ENT, Manu:[facility] ZOSTER RECOMBINANT [address] [facility] ZOSTER RECOMBINANT 1 [address] [facility] INFLUENZA, HIGH DOSE SEASONAL [address] [facility] INFLUENZA, HIGH DOSE SEASONAL [address] [facility] INFLUENZA, INJECTABLE, MDCK, PRESERVATIVE FREE, QUADRIVALENT 2016 171 complet ed Partner: Alberto . Administe red by: Alberto Clinician (NPI=Not Provided) . Partner 2 Lot#: [id number] Mfr: SEQIRUS CBonnie [facility] INFLUENZA, SEASONAL, INJECTABLE, PRESERVATIVE FREE [address] [facility] PNEUMOCOCCAL CONJUGATE PCV 13 [address] [facility] INFLUENZA, UNSPECIFIED FORMULATION [address] [facility] INFLUENZA, UNSPECIFIED FORMULATION [address] [facility] TDAP 2012 115 complet ed Glaxo aguero de la torre,22C 9R, [facility] ZOSTER LIVE 2012 121 complet ed Merck,[id number] [facility] INFLUENZA, UNSPECIFIED FORMULATION [address] [facility] INFLUENZA, UNSPECIFIED FORMULATION [address] [facility] INFLUENZA, UNSPECIFIED FORMULATION [address] [facility] INFLUENZA, UNSPECIFIED FORMULATION 2008 88 complet ed Lindsey [facility] INFLUENZA, UNSPECIFIED FORMULATION [address] [facility] INFLUENZA, UNSPECIFIED FORMULATION [address] [facility] INFLUENZA, UNSPECIFIED FORMULATION 2007 88 complet ed Lindsey [facility] INFLUENZA, UNSPECIFIED FORMULATION 2007 88 complet ed Lindsey [facility] INFLUENZA, UNSPECIFIED FORMULATION [address] [facility] PNEUMOCOCCAL (HISTORICAL) 2006 NONE 109 complet ed Left Deltoid (IM), Lot Number:[id number] Exp: 12/24/08 [facility] PNEUMOCOCCAL, UNSPECIFIED FORMULATION [address] [facility] TD (ADULT), 5 LF TETANUS TOXOID, PRESERVATIVE FREE, ADSORBED [address] [facility] INFLUENZA, SEASONAL, INJECTABLE [address] [facility] TD(ADULT) UNSPECIFIED FORMULATION [address] [facility] TD(ADULT) UNSPECIFIED FORMULATION 2003 139 complet ed Lindsey [facility] TD(ADULT) UNSPECIFIED FORMULATION 1994 139 complet ed [facility] Results Combined list of recent chemistry, hematology and other laboratory results from Department of Defense and Veterans Affairs, ranging from 15 months to all on record, depending upon the facility. Order Name Results Value Reference Range Date Interpretation Specimen Comments Source HEMOGLOBI N A1C HEMOGLOBIN A1C/HEMOGLO BIN.TOTAL IN BLOOD 5.4 4.0 - 6.0 01/30 Specimen Type: BLOOD Comment: Values obtained from A1C measurement s can vary. For typical A1C assays, a reported value of 7.0 could actually be between 6.7 and 7.3 if measured by a reference method. A reported value of 9.0 could actually be between 8.7 and 9.3. Ref: http://www. ngsp.org/[place] Pdata.asp Ordering Provider: Nargis SMART Report Released Date/Time: Jan 31, 2024 10:13 AM Reporting Lab: [facility] [address] Performing Lab: [facility] [address] [place] [facility] LIPID PANEL,FAS TING CHOLESTEROL [MASS/VOLUM E] IN SERUM OR PLASMA 125 mg/dL <199 - 199 01/30 Specimen Type: PLASMA No comment entered. Ordering Provider: Nargis SMART Report Released Date/Time: Jan 31, 2024 10:13 AM Reporting Lab: [facility] [address] Performing Lab: [facility] [address] [place] [facility] LIPID PANEL,FAS TING TRIGLYCERID E [MASS/VOLUM E] IN SERUM OR PLASMA 95 mg/dL <149 - 149 01/30 Specimen Type: PLASMA No comment entered. Ordering Provider: Nargis SMART Report Released Date/Time: Jan 31, 2024 10:13 AM Reporting Lab: [facility] [address] Performing Lab: [facility] [address] [place] [facility] LIPID PANEL,FAS TING CHOLESTEROL IN HDL [MASS/VOLUM E] IN SERUM OR PLASMA 37 mg/dL 40 01/30 L Specimen Type: PLASMA No comment entered. Ordering Provider: Nargis SMART Report Released Date/Time: Jan 31, 2024 10:13 AM Reporting Lab: [facility] [address] Performing Lab: [facility] [address] [place] [facility] LIPID PANEL,FAS TING CHOLESTEROL IN LDL [MASS/VOLUM E] IN SERUM OR PLASMA BY CALCULATION 69 mg/dL <99 - 99 01/30 Specimen Type: PLASMA No comment entered. Ordering Provider: Nargis SMART Report Released Date/Time: Jan 31, 2024 10:13 AM Reporting Lab: [facility] [address] Performing Lab: [facility] [address] [place] [facility] LIPID PANEL,FAS TING CHOLESTEROL IN VLDL [MASS/VOLUM E] IN SERUM OR PLASMA BY CALCULATION 19 mg/dL <29 - 29 01/30 Specimen Type: PLASMA No comment entered. Ordering Provider: Nargis SMART Report Released Date/Time: Jan 31, 2024 10:13 AM Reporting Lab: [facility] [address] Performing Lab: [facility] [address] [place] [facility] LIPID PANEL,FAS TING CHOLESTEROL NON HDL [MASS/VOLUM E] IN SERUM OR PLASMA 88 mg/dL <129 - 129 01/30 Specimen Type: PLASMA No comment entered. Ordering Provider: Nargis SMART Report Released Date/Time: Jan 31, 2024 10:13 AM Reporting Lab: [facility] [address] Performing Lab: [facility] [address] [place] [facility] CBC LEUKOCYTES [#/VOLUME] IN BLOOD BY AUTOMATED COUNT 7.3 4.0 - 11.0 01/30 Specimen Type: BLOOD No comment entered. Ordering Provider: BASHIR CARVAJAL Report Released Date/Time: Jan 30, 2024 01:03 PM Reporting Lab: [facility] [address] Performing Lab: [facility] [address] [place] [facility] CBC ERYTHROCYTE S [#/VOLUME] IN BLOOD BY AUTOMATED COUNT 3.83 4.60 - 6.20 01/30 L Specimen Type: BLOOD No comment entered. Ordering Provider: BASHIR CARVAJAL Report Released Date/Time: Jan 30, 2024 01:03 PM Reporting Lab: [facility] [address] Performing Lab: [facility] [address] [place] [facility] CBC HEMOGLOBIN [MASS/VOLUM E] IN BLOOD 11.4 g/dL 13.5 - 17.9 01/30 L Specimen Type: BLOOD No comment entered. Ordering Provider: BASHIR CARVAJAL Report Released Date/Time: Jan 30, 2024 01:03 PM Reporting Lab: [facility] [address] Performing Lab: [facility] [address] [place] [facility] CBC HEMATOCRIT [VOLUME FRACTION] OF BLOOD BY AUTOMATED COUNT 35.1 41.0 - 54.0 01/30 L Specimen Type: BLOOD No comment entered. Ordering Provider: BASHIR CARVAJAL Report Released Date/Time: Jan 30, 2024 01:03 PM Reporting Lab: [facility] [address] Performing Lab: [facility] [address] [place] [facility] CBC MCV [ENTITIC VOLUME] BY AUTOMATED COUNT 91.6 fL 80.0 - 100.0 01/30 Specimen Type: BLOOD No comment entered. Ordering Provider: BASHIR CARVAJAL Report Released Date/Time: Jan 30, 2024 01:03 PM Reporting Lab: [facility] [address] Performing Lab: [facility] [address] [place] [facility] CBC MCH [ENTITIC MASS] BY AUTOMATED COUNT 29.8 pg 27.0 - 33.0 01/30 Specimen Type: BLOOD No comment entered. Ordering Provider: BASHIR CARVAJAL Report Released Date/Time: Jan 30, 2024 01:03 PM Reporting Lab: [facility] [address] Performing Lab: [facility] [address] [place] [facility] CBC MCHC [MASS/VOLUM E] BY AUTOMATED COUNT 32.5 g/dL 32.0 - 37.5 01/30 Specimen Type: BLOOD No comment entered. Ordering Provider: BASHIR CARVAJAL Report Released Date/Time: Jan 30, 2024 01:03 PM Reporting Lab: [facility] [address] Performing Lab: [facility] [address] [place] [facility] CBC PLATELETS [#/VOLUME] IN BLOOD BY AUTOMATED COUNT 193 150 - 400 01/30 Specimen Type: BLOOD No comment entered. Ordering Provider: BASHIR CARVAJAL Report Released Date/Time: Jan 30, 2024 01:03 PM Reporting Lab: [facility] [address] Performing Lab: [facility] [address] [place] [facility] CBC PLATELET MEAN VOLUME [ENTITIC VOLUME] IN BLOOD BY AUTOMATED COUNT 10.7 fL 9.1 - 13.0 01/30 Specimen Type: BLOOD No comment entered. Ordering Provider: BASHIR CARVAJAL Report Released Date/Time: Jan 30, 2024 01:03 PM Reporting Lab: [facility] [address] Performing Lab: [facility] [address] [facility] CBC ERYTHROCYTE DISTRIBUTIO N WIDTH [RATIO] BY AUTOMATED COUNT 12.2 11.5 - 14.5 01/30 Specimen Type: BLOOD No comment entered. Ordering Provider: BASHIR CARVAJAL Report Released Date/Time: Jan 30, 2024 01:03 PM Reporting Lab: [facility] [address] Performing Lab: [facility] [address] [facility] IS [facility] BASIC METABOLIC PANEL+MG CREATININE [MASS/VOLUM E] IN SERUM OR PLASMA 1.3 mg/dL 0.7 - 1.2 01/30 H Specimen Type: PLASMA No comment entered. Ordering Provider: BASHIR CARVAJAL Report Released Date/Time: Jan 30, 2024 01:03 PM Reporting Lab: [facility] [address] Performing Lab: [facility] [address] [place] [facility] BASIC METABOLIC PANEL+MG UREA NITROGEN [MASS/VOLUM E] IN SERUM OR PLASMA 24 mg/dL 8 - 26 01/30 Specimen Type: PLASMA No comment entered. Ordering Provider: BASHIR CARVAJAL Report Released Date/Time: Jan 30, 2024 01:03 PM Reporting Lab: [facility] [address] Performing Lab: [facility] [address] [place] [facility] BASIC METABOLIC PANEL+MG GLUCOSE [MASS/VOLUM E] IN SERUM OR PLASMA 91 mg/dL 70 - 100 01/30 Specimen Type: PLASMA No comment entered. Ordering Provider: BASHIR CARVAJAL Report Released Date/Time: Jan 30, 2024 01:03 PM Reporting Lab: [facility] [address] Performing Lab: [facility] [address] [place] [facility] BASIC METABOLIC PANEL+MG SODIUM [MOLES/VOLU ME] IN SERUM OR PLASMA 138 mmol/L 136 - 145 01/30 Specimen Type: PLASMA No comment entered. Ordering Provider: BASHIR CARVAJAL Report Released Date/Time: Jan 30, 2024 01:03 PM Reporting Lab: [facility] [address] Performing Lab: [facility] [address] [place] [facility] BASIC METABOLIC PANEL+MG POTASSIUM [MOLES/VOLU ME] IN SERUM OR PLASMA 4.1 mmol/L 3.5 - 5.1 01/30 Specimen Type: PLASMA No comment entered. Ordering Provider: BASHIR CARVAJAL Report Released Date/Time: Jan 30, 2024 01:03 PM Reporting Lab: [facility] [address] Performing Lab: [facility] [address] [place] [facility] BASIC METABOLIC PANEL+MG CHLORIDE [MOLES/VOLU ME] IN SERUM OR PLASMA 108 mmol/L 98 - 107 01/30 H Specimen Type: PLASMA No comment entered. Ordering Provider: BASHIR CARVAJAL Report Released Date/Time: Jan 30, 2024 01:03 PM Reporting Lab: [facility] [address] Performing Lab: [facility] [address] [place] [facility] BASIC METABOLIC PANEL+MG CARBON DIOXIDE, TOTAL [MOLES/VOLU ME] IN SERUM OR PLASMA 23 mmol/L 22 - 29 01/30 Specimen Type: PLASMA No comment entered. Ordering Provider: BASHIR CARVAJAL Report Released Date/Time: Jan 30, 2024 01:03 PM Reporting Lab: [facility] [address] Performing Lab: [facility] [address] [place] [facility] BASIC METABOLIC PANEL+MG CALCIUM [MASS/VOLUM E] IN SERUM OR PLASMA 8.8 mg/dL 8.4 - 10.2 01/30 Specimen Type: PLASMA No comment entered. Ordering Provider: BASHIR CARVAJAL Report Released Date/Time: Jan 30, 2024 01:03 PM Reporting Lab: [facility] [address] Performing Lab: [facility] [address] [place] [facility] BASIC METABOLIC PANEL+MG MAGNESIUM [MASS/VOLUM E] IN SERUM OR PLASMA 2.1 mg/dL 1.6 - 2.6 01/30 Specimen Type: PLASMA No comment entered. Ordering Provider: BASHIR CARVAJAL Report Released Date/Time: Jan 30, 2024 01:03 PM Reporting Lab: [facility] [address] Performing Lab: [facility] [address] [place] [facility] BASIC METABOLIC PANEL+MG ANION GAP IN SERUM OR PLASMA 7 mmol/L 5 - 15 01/30 Specimen Type: PLASMA No comment entered. Ordering Provider: BASHIR CARVAJAL Report Released Date/Time: Jan 30, 2024 01:03 PM Reporting Lab: [facility] [address] Performing Lab: [facility] [address] [place] [facility] BASIC METABOLIC PANEL+MG GLOMERULAR FILTRATION RATE/1.73 SQ M.PREDICTED [VOLUME RATE/AREA] IN SERUM, PLASMA OR BLOOD BY CREATININE- BASED FORMULA (CKD-EPI 2020) 54 60 01/30 L Specimen Type: PLASMA No comment entered. Ordering Provider: BASHIR CARVAJAL Report Released Date/Time: Jan 30, 2024 01:03 PM Reporting Lab: [facility] [address] Performing Lab: [facility] [address] [place] [facility] POC ACT ACTIVATED CLOTTING TIME (ACT) OF BLOOD BY COAGULATION ASSAY 241 s 84 - 139 01/29 H Specimen Type: BLOOD No comment entered. Ordering Provider: RODO CHRISTY Report Released Date/Time: Jan 30, 2024 10:43 AM Reporting Lab: [facility] [address] Performing Lab: [facility] [address] [place] [facility] ACT ACTIVATED CLOTTING TIME (ACT) OF BLOOD BY COAGULATION ASSAY 289 s 84 - 139 01/29 H Specimen Type: BLOOD No comment entered. Ordering Provider: RODO CHRISTY Report Released Date/Time: Jan 30, 2024 10:14 AM Reporting Lab: [facility] [id number] Performing Lab: [facility] [phone] [place] [facility] ACT ACTIVATED CLOTTING TIME (ACT) OF BLOOD BY COAGULATION ASSAY 294 s 84 - 139 01/29 H Specimen Type: BLOOD No comment entered. Ordering Provider: RODO CHRISTY Report Released Date/Time: Jan 30, 2024 10:14 AM Reporting Lab: [facility] [id number] Performing Lab: [facility] [id number] [facility] [facility] AP[facility] APTT IN [place] POOR PLASMA BY COAGULATION ASSAY 83.2 s 48.0 - 92.0 01/29 Specimen Type: PLASMA No comment entered. Ordering Provider: BASHIR CARVAJAL Report Released Date/Time: Jan 29, 2024 09:43 PM Reporting Lab: [facility] [address] Performing Lab: [facility] [address] [facility] METABOLIC PANEL+MG CREATININE [MASS/VOLUM E] IN SERUM OR PLASMA 1.4 mg/dL 0.7 - 1.2 01/29 H Specimen Type: PLASMA No comment entered. Ordering Provider: BASHIR CARVAJAL Report Released Date/Time: Jan 29, 2024 12:19 PM Reporting Lab: [facility] [address] Performing Lab: [facility] [address] [place] [facility] METABOLIC PANEL+MG UREA NITROGEN [MASS/VOLUM E] IN SERUM OR PLASMA 27 mg/dL 8 - 26 01/29 H Specimen Type: PLASMA No comment entered. Ordering Provider: BASHIR CARVAJAL Report Released Date/Time: Jan 29, 2024 12:19 PM Reporting Lab: [facility] [address] Performing Lab: [facility] [address] [place] [facility] METABOLIC PANEL+MG GLUCOSE [MASS/VOLUM E] IN SERUM OR PLASMA 95 mg/dL 70 - 100 01/29 Specimen Type: PLASMA No comment entered. Ordering Provider: BASHIR CARVAJAL Report Released Date/Time: Jan 29, 2024 12:19 PM Reporting Lab: [facility] [address] Performing Lab: [facility] [address] [place] [facility]ABOLIC PANEL+MG SODIUM [MOLES/VOLU ME] IN SERUM OR PLASMA 139 mmol/L 136 - 145 01/29 Specimen Type: PLASMA No comment entered. Ordering Provider: BASHIR CARVAJAL Report Released Date/Time: Jan 29, 2024 12:19 PM Reporting Lab: [facility] [address] Performing Lab: [facility] [address] [place] [facility] MET[facility]OLIC PANEL+MG POTASSIUM [MOLES/VOLU ME] IN SERUM OR PLASMA 4.2 mmol/L 3.5 - 5.1 01/29 Specimen Type: PLASMA No comment entered. Ordering Provider: BASHIR CARVAJAL Report Released Date/Time: Jan 29, 2024 12:19 PM Reporting Lab: [facility] [address] Performing Lab: [facility] [address] [place] [facility] METABOLIC PANEL+MG CHLORIDE [MOLES/VOLU ME] IN SERUM OR PLASMA 109 mmol/L 98 - 107 01/29 H Specimen Type: PLASMA No comment entered. Ordering Provider: BASHIR CARVAJAL Report Released Date/Time: Jan 29, 2024 12:19 PM Reporting Lab: [facility] [address] Performing Lab: [facility] [address] [place] [facility] METABOLIC PANEL+MG CARBON DIOXIDE, TOTAL [MOLES/VOLU ME] IN SERUM OR PLASMA 24 mmol/L 22 - 29 01/29 Specimen Type: PLASMA No comment entered. Ordering Provider: BASHIR CARVAJAL Report Released Date/Time: Jan 29, 2024 12:19 PM Reporting Lab: [facility] [address] Performing Lab: [facility] [address] [place] [facility] PANEL+MG CALCIUM [MASS/VOLUM E] IN SERUM OR PLASMA 9.0 mg/dL 8.4 - 10.2 01/29 Specimen Type: PLASMA No comment entered. Ordering Provider: BASHIR CARVAJAL Report Released Date/Time: Jan 29, 2024 12:19 PM Reporting Lab: [facility] [address] Performing Lab: [facility] [address] [place] [facility] MET[facility]OLIC PANEL+MG MAGNESIUM [MASS/VOLUM E] IN SERUM OR PLASMA 2.1 mg/dL 1.6 - 2.6 01/29 Specimen Type: PLASMA No comment entered. Ordering Provider: BASHIR CARVAJAL Report Released Date/Time: Jan 29, 2024 12:19 PM Reporting Lab: [facility] [address] Performing Lab: [facility] [address] [place] [facility]OLIC PANEL+MG ANION GAP IN SERUM OR PLASMA 6 mmol/L 5 - 15 01/29 Specimen Type: PLASMA No comment entered. Ordering Provider: BASIHR CARVAJAL Report Released Date/Time: Jan 29, 2024 12:19 PM Reporting Lab: [facility] [address] Performing Lab: [facility] [address] [place] [facility] MET[facility]OLIC PANEL+MG GLOMERULAR FILTRATION RATE/1.73 SQ M.PREDICTED [VOLUME RATE/AREA] IN SERUM, PLASMA OR BLOOD BY CREATININE- BASED FORMULA (CKD-EPI 2020) 49 60 01/29 L Specimen Type: PLASMA No comment entered. Ordering Provider: BASHIR CARVAJAL Report Released Date/Time: Jan 29, 2024 12:19 PM Reporting Lab: [facility] [address] Performing Lab: [facility] [address] [place] [facility] APTT IN [place] POOR PLASMA BY COAGULATION ASSAY 214.6 s 48.0 - 92.0 01/28 Specimen Type: PLASMA Comment: Critical Value Reported To: Tomasa Delcid PharmD 01/29/24 @2129 . Critical value report confirmed. Ordering Provider: NICOLA SAMUEL Report Released Date/Time: Jan 29, 2024 03:00 PM Reporting Lab: [facility] [address] [facility] [address] [facility] [address] Performing Lab: [facility] ONE [facility] [address] [facility] Vital Signs Combined list of inpatient and outpatient Vital Signs from Department of Defense and Veterans Affairs, ranging from 12 months to all on record, depending upon the facility. Vital Sign Value Date Comments Source WEIGHT 148.37 01/30/2024 08:00:00 [facility] BMI 23kg/m2 01/30/2024 08:00:00 [facility] PAIN 7 01/28/2024 03:25:50 [facility] SYSTOLIC BLOOD PRESSURE 138 01/11/20 24 13:25:22 [facility] DIASTOLIC BLOOD PRESSURE 79 024 13:25:22 [facility] PULSE OXIMETRY 98 01/11/2024 13:25:22 [facility] WEIGHT 151 01/11/2024 13:25:22 [facility] BMI 24kg/m2 01/11/2024 13:25:22 [facility] PAIN 0 01/11/2024 13:25:22 [facility] HEIGHT 67 01/11/2024 13:25:22 [facility] TEMPERATURE 98.8 01/11/2024 13:25:22 [facility] PULSE 53 01/11/2024 13:25:22 [facility] RESPIRATION 16 01/11/2024 13:25:22 [facility] SYSTOLIC BLOOD PRESSURE 156 12/14/19 24 11:26:02 [facility] DIASTOLIC BLOOD PRESSURE 82 024 11:26:02 [facility] PULSE OXIMETRY 96 12/14/2023 11:26:02 [facility] WEIGHT 153 12/14/2023 11:26:02 [facility] BMI 24kg/m2 12/14/2023 11:26:02 [facility] PAIN 0 12/14/2023 11:26:02 [facility] TEMPERATURE 98.8 12/14/2023 11:26:02 [facility] PULSE 50 12/14/2023 11:26:02 [facility] RESPIRATION 16 12/14/2023 11:26:02 [facility] SYSTOLIC BLOOD PRESSURE 105 02/18/20 23 14:01:00 [place] [facility] DIASTOLIC BLOOD PRESSURE 57 023 14:01:00 [place] [facility] WEIGHT 156.0 02/17/2023 14:01:00 [place] [facility] BMI 23kg/m2 02/17/2023 14:01:00 [place] [facility] TEMPERATURE 98.5 02/17/2023 14:01:00 [place] [facility] RESPIRATION 16 02/17/2023 14:01:00 [place] [facility] Encounters Combined list of: 1) Encounters from Department of [facility] Affairs facilities going back up to thelast 18 months. 2) Encounters from the Department of [facility] facilities going back up to 280 months. Location Location Details Encounter Type Encounter Number Reason For Visit Attending Provider ADM Date DC Date Status Disposition Source [facility] Outpatient Encounter [id number] 09/10 [facility] Outpatient Encounter [id number] 09/10 [facility] OFFICE O/P EST MOD 30-39 MIN [id number] Diagnos is: ICD-10- CM M25.512 Pain in left shoulde r
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
JESSICA DIOR 10/18 [facility] Outpatient Encounter [id number] 10/18 [facility] OFFICE O/P EST LOW 20-29 MIN [id number] Diagnos is: ICD-10- CM H90.3 Sensori neural hearing loss, bilater al
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
Yarelis PENNINGTON 11/11 [facility] OFFICE O/P NEW SF 15-29 MIN [id number] Diagnos is: ICD-10- CM L57.0 Actinic keratos is
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
ALEX BHATT 11/24 [facility] OFFICE O/P EST MOD 30-39 MIN [id number] Diagnos is: ICD-10- CM R13.12 Dysphag ia, orophar yngeal phase<b r/> AMANDAFADY STUBBS RENETTA 12/06 [facility] CASE MANAGEMENT [id number] MARCUS VAUGHN 01/04 [facility] Outpatient Encounter [id number] MARCUS VAUGHN 01/06 [place] [facility] CONFORMITY EVALUATION [id number] Diagnos is: ICD-10- CM Z46.1 Encount er for fitting and adjustm ent of hearing aid<br/ > SYDNEE RANDALL RTHA R 01/07 [facility] Outpatient Encounter [id number] 01/11 [facility] HC PRO PHONE CALL 5-10 MIN [id number] Diagnos is: ICD-10- CM Z71.9 Post Anesthesia Room Nurse ing, 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
TAINA BENJAMIN 01/11 [facility] Outpatient Encounter [id number] 01/12 [facility] IMMUNIZATI ON ADMIN [id number] Diagnos is: ICD-10- CM Z23 Encount er for immuniz ation<b r/> SHADES,CYNDIE S A 01/28 [facility] Outpatient Encounter [id number] JUAN ARMENTA 02/10 [facility] Outpatient Encounter [id number] 02/14 [facility] Outpatient Encounter [id number] EDSON LEONGI 02/15 [facility] HC PRO PHONE CALL 5-10 MIN [id number] Diagnos is: ICD-10- CM Z71.9 Post Anesthesia Room Nurse ing, 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
TAINA BENJAMIN ICA K 02/15 [place] [facility] OFFICE O/P EST LOW 20-29 MIN [id number] Diagnos is: ICD-10- CM D48.5 Neoplas m of uncerta in behavio r of skin
DANITZA,PET ER L 02/17 [facility] Outpatient Encounter [id number] EBONIE GRIGGS NONI H 02/24 [place] [facility] CASE MANAGEMENT [id number] Arpan HENDRICKSON L 02/24 [facility] Outpatient Encounter [id number] 02/24 [facility] HC PRO PHONE CALL 5-10 MIN [id number] Diagnos is: ICD-10- CM Z71.2 Person consult ing for explana tion of exam or test finding s
KRISHNA SHERMAN TY K 02/25 [facility] Outpatient Encounter [id number] 03/08 [facility] OFFICE O/P EST HI 40 MIN [id number] Diagnos is: ICD-10- CM K59.00 Constip ation, 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
Phil GOMES H 12/13 [place] [facility] [facility] OFFICE O/P EST MOD 30 MIN [id number] Diagnos is: ICD-10- CM D48.5 Neoplas m of uncerta in behavio r of skin
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
Phil GOMES H 01/10 [facility] Outpatient Encounter [id number] Diagnos is: ICD-10- CM R94.31 Abnorma l electro cardiog annia [ECG] [EKG]<b r/> Yarelis COLEMAN M 01/17 [facility] Outpatient Encounter [id number] BILILE GILL L 01/19 [facility] Outpatient Encounter [id number] 01/25 [facility] Outpatient Encounter [id number] SYSTEM,CIS -ARK 01/26 [facility] Inpatient Encounter [id number] Jason KEY 01/26 [facility] Inpatient Encounter [id number] 01/26 [facility] CT Scan of Mult Cor Art using Intravasc Optic Cohere [id number] Admit Reason: UNSTABL E ANGINA, HEP GTT<br/ > TEAM,CARDS ONE 01/26 [facility] Inpatient Encounter [id number] 01/26 [facility] 1ST HOSP IP/OBS HIGH 75 [id number] Diagnos is: ICD-10- CM 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 [place] [facility] Inpatient Encounter [id number] SYSTEM,CIS -ARK 01/27 [facility] [place] [facility] Inpatient Encounter [id number] 01/27 [facility] [place] [facility] Inpatient Encounter [id number] 01/27 [facility] TTE W/DOPPLER COMPLETE [id number] Diagnos is: ICD-10- CM I50.9 Heart failure , 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
THERESA HAWTHORNE 01/27 [facility] [place] [facility] Inpatient Encounter [id number] 01/27 [facility] [place] [facility] Inpatient Encounter [id number] SYSTEM,CIS -ARK 01/28 [facility] [place] [facility] Inpatient Encounter [id number] 01/28 [facility] [place] [facility] Inpatient Encounter [id number] 01/28 [facility] [place] [facility] Inpatient Encounter [id number] SYSTEM,CIS -ARK 01/[facility] [place] [facility] [place] [facility] Inpatient Encounter [id number] 01/29 [place] [facility] [place] [facility] Inpatient Encounter [id number] 01/29 [place] [facility] [place] [facility] ENDOLUMINL IVUS OCT C 1ST [id number] Diagnos is: ICD-10- CM 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<br/ > THERESA HAWTHORNE 01/29 [place] [facility] [place] [facility] Inpatient Encounter [id number] 01/29 [place] [facility] [place] [facility] H[facility]P IP/OBS DSCHRG MGMT >30 [id number] Diagnos is: ICD-10- CM 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<br/ > ADELAIDA ROSSI 01/29 [facility] [place] [facility] Inpatient Encounter [id number] SYSTEM,ZEINAB -RANIK 01/30 [facility] [place] [facility] Inpatient Encounter [id number] 01/30 [place] [facility] [place] [facility] Inpatient Encounter [id number] 01/30 [place] [facility] [place] [facility] Inpatient Encounter [id number] 01/30 [place] [facility] [place] [facility] Inpatient Encounter [id number] 01/30 [place] [facility] [place] [facility] Outpatient Encounter [id number] 01/31 [place] [facility] [place] [facility] Outpatient Encounter [id number] 02/02 [place] [facility] [place] [facility] Outpatient Encounter [id number] 02/02 [place] [facility] [place] [facility] Outpatient Encounter [id number] 02/05 [place] [facility] [place] [facility] Outpatient Encounter [id number] 02/08 [place] [facility] [place] [facility] Outpatient Encounter [id number] 02/09 [place] [facility] Social History Combined list of available smoking, tobacco, and other social history from Department of Defense and Veterans Affairs facilities. Social History Type Response Date Comment [facility] e Tobacco smoking status NHIS VA-TOBACCO FORMER USER 12/14/2023 [facility] History of tobacco use [place]-TOBACCO QUIT 15 YRS OR MORE 12/14/2023 [facility] History of tobacco use NJ-TOBACCO FORMER USER 10/13/2022 [facility] History of tobacco use NJ-TOBACCO FORMER USER 07/27/2021 [facility] History of tobacco use NJ-TOBACCO FORMER USER 01/02/2020 [facility] History of tobacco use NJ-TOBACCO FORMER USER 07/21/2018 [facility] History of tobacco use FORMER TOBACCO USER 7Y OR GREATER 12/24/2016 [facility] History of tobacco use FORMER TOBACCO USE >1Y <7Y 12/23/2015 [facility] History of tobacco use FORMER TOBACCO USER 7Y OR GREATER 12/26/2014 [facility] History of tobacco use LIFETIME NON-TOBACCO USER 08/13/2013 [facility] History of tobacco use LIFETIME NON TOBACCO USER 07/09/2009 [facility] History of tobacco use LIFETIME NON TOBACCO USER 07/26/2008 [facility] History of tobacco use LIFETIME NON TOBACCO USER 04/18/2007 [facility] History of tobacco use FORMER TOBACCO USER 7Y OR GREATER 08/30/2006 [facility] History of tobacco use LIFETIME NON TOBACCO USER 06/30/2006 [facility] History of tobacco use HF V9 CURRENT [id number] 09/13/[address] [facility] Plan of Care List of future care activities from Department of [facility] Affairs facilities. Additional future care activities may be listed in the Assessment and Plan section. Date/Time Care Activity Care Activity Detail Facili ty 02/21/2024 AMBULATORY - MEDICINE AMBULATORY - MEDICI NE [facility] 02/24/2024 AMBULATORY - MEDICINE AMBULATORY - MEDICI NE [facility] 02/24/2024 AMBULATORY - MEDICINE AMBULATORY - MEDICI NE [facility] 03/02/2024 AMBULATORY - REHAB MEDICINE AMBULATORY - REHAB MEDICINE [facility] 07/31/2024 AMBULATORY - SURGERY AMBULATORY - SURGERY [facility] 01/18/2024 Consult Order COMMUNITY CARE-ECHOCARDIOGRAPHY Cons Optical Lathe Operator's Choice [facility] 01/19/2024 Consult Order COMMUNITY CARE-D ERMATOLOGY Cons Optical Lathe Operator's [facility] 01/28/2024 Laboratory - Scarrer ry Order TROPONIN I, HS PLASMA STAT WC [facility] 01/31/2024 Consult Order CARDIAC REHAB OU TPT Cons Bedside [facility] 01/31/2024 Consult Order CARDIOLOGY [facility] OUTPT Cons Optical Lathe Operator's [facility] Advance Directives List of completed, amended, or rescinded Advance Directives on record at [facility] facilities. An actual copy of the Directive is not included. Date Advance Directive Provider Source 08/30/2006 [facility]ANCE [facility]
--- OUTSIDE RECORDS SUMMARY | 2024-02-10 23:34 | XMS_ITS | Encounter Summary ---
Author Name [facility] Organization [facility] [place] Address [address] [place] [id number] Care Team Providers Care Percussion Teacher Name Role Phone SARIAH GOMES Primary Care Provider [facility] Insurance Providers: All historical and current [...] PART B Sep 09, 2002 PART B [id number] [phone] JOAQUIN COUGHLIN S PATIENT MEDICARE (WNR) MEDICARE (M) PART A Sep 09, 2002 PART A [id number] NULL,JOAQUIN S PATIENT MEDICARE (WNR) MEDICARE (M) PART A Sep 09, 2002 PART A [id number] NULLJOAQUIN S PATIENT MEDICARE (WNR) MEDICARE (M) PART B Sep 09, 2002 PART B [id number] MADYSON,JOAQUIN S PATIENT Selected Encounter This section includes the information on record at [place] for the Encounter. Date/Time Encounter Type Encounter Description Reason Provider Source Jan 27, 2024 11:47 AM Inpatient Visit ADMIN PAT ACTIVTIES (MASNONCT) KEY,ALEAH M IHE Encounter Template Text not used by AR Plan of Treatment: Future Appointments (+ 6 months) and Future Tests (+/- 45 days) The Plan of Treatment section includes future care activities for the patient from [facility] This section includes future appointments and future orders which are active, pending or scheduled. Future Appointments This section includes appointments that were scheduled to occur 6 months from the date of the Encounter, up to a maximum of 20 appointments. The data comes from all [facility]. Appointment Date/Time Appointment Type Appointme nt Facility Name Feb 21, 2024 10:00 AM AMBULATORY - MEDICINE [facility] Feb 24, 2024 12:15 PM AMBULATORY - MEDICINE [facility] Feb 24, 2024 01:00 PM AMBULATORY MEDICINE [facility] Mar 02, 2024 01:00 PM AMBULATORY - REHAB MEDICIN E [facility] Active, Pending, and Scheduled Orders This section includes a listing of several types of active, pending, and scheduled orders, including clinic medications orders, diagnostic test orders, procedure orders and consult orders; where the start date of the order is 45 days before the date of the Encounter or 45 days after the date of theEncounter. The data comes from all [facility]. Test Date/Time Test Type Test Details Facility Name Jan 18, 2024 04:23 PM Consult Order COMMUNITY CARE-ECHOCARDIOGRAPHY [facility] Jan 19, 2024 12:10 PM Consult Order COMMUNITY CARE-DERMATOLOGY [facility] Jan 28, 2024 02:00 AM Laboratory - Chemistry Order TROPONIN I, HS PLASMA STAT WC [facility] Jan 31, 2024 09:30 AM Consult Order CARDIAC REHAB OUTPT Cons Bedside [facility] Jan 31, 2024 10:13 AM Consult Order CARDIOLOGY INTERVENTIONAL CLINIC OUTPT [facility] Lab Results: +/- 30 days of the encounter This section includes the Chemistry and Hematology Lab Results on record with [place] for the patient. Radiology Reports and Pathology Reports are provided separately, in subsequent sections. Lab Results This section contains the Chemistry/Hematology Results that were resulted 30 days before or 30 daysafter the date of the Encounter. Date/Time Source Result Type Result - Unit Interpretation Reference Range Comment Jan 31, 2024 10:50 AM [facility] HEMOGLOBIN A1C Specimen Type: BLOOD Comment: Values obtained from A1C measurements can vary. For typical A1C assays, a reported value of 7.0 could actually be between 6.7 and 7.3 if measured by a reference method. A reported value of 9.0 could actually be between 8.7 and 9.3. Ref: http://www.ngsp .org/CAPdata.as p Ordering Provider: JULIET SMART Report Released Date/Time: Jan 31, 2024 10:13 AM Reporting Lab: [facility] [phone] Performing Lab: [facility] [address] HEMOGLOBIN A1C 5.4 4.0-6.0 Jan 31, 2024 10:50 AM [facility] LIPID PANEL,FASTING Specimen Type: PLASMA No comment entered. Ordering Provider: JULIET SMART Report Released Date/Time: Jan 31, 2024 10:13 AM Reporting Lab: [facility] [address] Performing Lab: [facility] [address] CHOLESTEROL 125 mg/dL <199 TRIGLYCERIDE 95 mg/dL <149 .HDL 37 mg/dL L >40 LDL CALCULATION 69 mg/dL <99 VLDL CALCULATION 19 mg/dL <29 NON HDL CHOLESTEROL 88 mg/dL <129 Jan 31, 2024 07:29 AM [facility] CBC Specimen Type: BLOOD No comment entered. Ordering Provider: BASHIR CARVAJAL Report Released Date/Time: Jan 30, 2024 01:03 PM Reporting Lab: [facility] [address] Performing Lab: [facility] [address] WBC 7.3 4.0-11.0 RBC 3.83 L 4.60-6.20 HGB 11.4 g/dL L 13.5-17.9 HCT 35.1 L 41.0-54.0 MCV 91.6 fL 80.0-100.0 MCH 29.8 pg 27.0-33.0 MCHC 32.5 g/dL 32.0-37.5 PLT 193 150-400 MPV 10.7 fL 9.1-13.0 RDW 12.2 11.5-14.5 Jan 31, 2024 07:29 AM [facility] BASIC METABOLIC PANEL+MG Specimen Type: PLASMA No comment entered. Ordering Provider: BASHIR CARVAJAL Report Released Date/Time: Jan 30, 2024 01:03 PM Reporting Lab: [facility] [address] Performing Lab: [facility] [address] CREATININE 1.3 mg/dL H 0.7-1.2 UREA NITROGEN 24 mg/dL 8-26 GLUCOSE 91 mg/dL 70-100 SODIUM 138 mmol/L 136-145 POTASSIUM 4.1 mmol/L 3.5-5.1 CHLORIDE 108 mmol/L H 98-107 CO2 23 mmol/L 22-29 CALCIUM 8.8 mg/dL 8.4-10.2 MAGNESIUM 2.1 mg/dL 1.6-2.6 ANION GAP 7 mmol/L 5-15 .CREAT EGFR(CKD-EPI) 54 L >60 Jan 30, 2024 10:37 AM [facility] POC ACT Specimen Type: BLOOD No comment entered. Ordering Provider: RODO CHRISTY Report Released Date/Time: Jan 30, 2024 10:43 AM Reporting Lab: [facility] [address] Performing Lab: [facility] [address] POC ACT 241 s H 84-139 Jan 30, 2024 10:08 AM [facility] POC ACT Specimen Type: BLOOD No comment entered. Ordering Provider: RODO CHRISTY Report Released Date/Time: Jan 30, 2024 10:14 AM Reporting Lab: [facility] [address] Performing Lab: [facility] [address] POC ACT 289 s H 84-139 Jan 30, 2024 09:34 AM [facility] POC ACT Specimen Type: BLOOD No comment entered. Ordering Provider: RODO CHRISTY Report Released Date/Time: Jan 30, 2024 10:14 AM Reporting Lab: [facility] [address] Performing Lab: [facility] [address] POC ACT 294 s H 84-139 Jan 30, 2024 05:37 AM [facility] HEPARIN APTT Specimen Type: PLASMA No comment entered. Ordering Provider: BASHIR CARVAJAL Report Released Date/Time: Jan 29, 2024 09:43 PM Reporting Lab: [facility] [address] Performing Lab: [facility] [address] HEPARIN APTT 83.2 s 48.0-92.0 Jan 30, 2024 05:37 AM [facility] BASIC METABOLIC PANEL+MG Specimen Type: PLASMA No comment entered. Ordering Provider: BASHIR CARVAJAL Report Released Date/Time: Jan 29, 2024 12:19 PM Reporting Lab: [facility] [address] Performing Lab: [facility] [address] CREATININE 1.4 mg/dL H 0.7-1.2 UREA NITROGEN 27 mg/dL H 8-26 GLUCOSE 95 mg/dL 70-100 SODIUM 139 mmol/L 136-145 POTASSIUM 4.2 mmol/L 3.5-5.1 CHLORIDE 109 mmol/L H 98-107 CO2 24 mmol/L 22-29 CALCIUM 9.0 mg/dL 8.4-10.2 MAGNESIUM 2.1 mg/dL 1.6-2.6 ANION GAP 6 mmol/L 5-15 .CREAT EGFR(CKD-EPI) 49 L >60 Jan 29, 2024 09:02 PM [facility] HEPARIN APTT Specimen Type: PLASMA Comment: Critical Value Reported To: Tomasa Delcid PharmD 01/29/24 @212[facility]. Critical value report confirmed. Ordering Provider: MERY SAMUEL Report Released Date/Time: Jan 29, 2024 03:00 PM Reporting Lab: [facility] [address] Performing Lab: [facility] [address] HEPARIN APTT 214.6 s HH 48.0-92.0 Jan 29, 2024 06:24 AM [facility] BASIC METABOLIC PANEL+MG Specimen Type: PLASMA No comment entered. Ordering Provider: BASHIR CARVAJAL Report Released Date/Time: Jan 28, 2024 04:36 PM Reporting Lab: [facility] [address] Performing Lab: [facility] [address] CREATININE 1.6 mg/dL H 0.7-1.2 UREA NITROGEN 27 mg/dL H 8-26 GLUCOSE 92 mg/dL 70-100 SODIUM 140 mmol/L 136-145 POTASSIUM 4.2 mmol/L 3.5-5.1 CHLORIDE 110 mmol/L H 98-107 CO2 25 mmol/L 22-29 CALCIUM 8.8 mg/dL 8.4-10.2 MAGNESIUM 2.1 mg/dL 1.6-2.6 ANION GAP 5 mmol/L 5-15 .CREAT EGFR(CKD-EPI) 42 L >60 Jan 28, 2024 05:54 AM [facility] EXTRA PURPLE TUBE Specimen Type: BLOOD No comment entered. Ordering Provider: RODO CHRISTY Report Released Date/Time: Jan 28, 2024 05:54 AM Reporting Lab: [facility] [address] Performing Lab: [facility] [address] EXTRA PURPLE TUBE RECEIVED Jan 28, 2024 05:53 AM [facility] ALBUMIN Specimen Type: PLASMA No comment entered. Ordering Provider: BASHIR CARVAJAL Report Released Date/Time: Jan 27, 2024 04:49 PM Reporting Lab: [facility] [address] Performing Lab: [facility] [address] ALBUMIN 3.5 g/dL 3.5-5.2 Jan 28, 2024 05:53 AM [facility] BASIC METABOLIC PANEL+MG Specimen Type: PLASMA No comment entered. Ordering Provider: BASHIR CARVAJAL Report Released Date/Time: Jan 27, 2024 05:44 PM Reporting Lab: [facility] [address] Performing Lab: [facility] [address] CREATININE 1.4 mg/dL H 0.7-1.2 UREA NITROGEN 28 mg/dL H 8-26 GLUCOSE 92 mg/dL 70-100 SODIUM 140 mmol/L 136-145 POTASSIUM 4.4 mmol/L 3.5-5.1 CHLORIDE 109 mmol/L H 98-107 CO2 23 mmol/L 22-29 CALCIUM 8.8 mg/dL 8.4-10.2 MAGNESIUM 2.1 mg/dL 1.6-2.6 ANION GAP 8 mmol/L 5-15 .CREAT EGFR(CKD-EPI) 49 L >60 Jan 28, 2024 05:52 AM [facility] TROPONIN I, HS Specimen Type: PLASMA Comment: Critical value previously reported on patient. Ordering Provider: BRANDON MEJIA Report Released Date/Time: Jan 27, 2024 09:15 PM Reporting Lab: [facility] [address] Performing Lab: [facility] [address] TROPONIN I, HS 128 HH <35 Jan 28, 2024 12:35 AM [facility] COVID-19 DIAGNOSTIC PANEL (CEPHEID) Specimen Type: NASOPHARYNGEAL Comment: Cepheid GeneXpert (618) Ordering Provider: LUCAS HAWTHORNE Report Released Date/Time: Jan 27, 2024 04:28 PM Reporting Lab: [facility] [address] Performing Lab: [facility] [address] COVID-19 (CEPHEID) Not Detected Not Detected Jan 28, 2024 12:35 AM [facility] HEPARIN APTT Specimen Type: PLASMA Comment: Critical Value Reported To: Deena Oliveros PharmD 01/28/24 @0110 . Critical value report confirmed. Ordering Provider: NATALIE ORDOÑEZ Report Released Date/Time: Jan 27, 2024 07:18 PM Reporting Lab: [facility] [address] Performing Lab: [facility] [address] HEPARIN APTT 133.9 s HH 48.0-92.0 Jan 28, 2024 12:35 AM [facility] TROPONIN I, HS Specimen Type: PLASMA Comment: Critical value previously reported on patient. Ordering Provider: BRANDON MEJIA Report Released Date/Time: Jan 27, 2024 09:15 PM Reporting Lab: [facility] [address] Performing Lab: [facility] [address] TROPONIN I, HS 158 HH <35 Jan 27, 2024 09:22 PM [facility] TROPONIN I, HS Specimen Type: PLASMA Comment: Critical value previously reported on patient. Ordering Provider: BASHIR CARVAJAL Report Released Date/Time: Jan 27, 2024 08:38 PM Reporting Lab: [facility] [address] Performing Lab: [facility] [address] TROPONIN I, HS 146 HH <35 Jan 27, 2024 06:52 PM [facility] TROPONIN I, HS Specimen Type: PLASMA Comment: Critical Value Reported To: Brandon Mejia MD 01/27/24 @1950 [place]. Critical value report confirmed. Ordering Provider: BASHIR CARVAJAL Report Released Date/Time: Jan 27, 2024 04:54 PM Reporting Lab: [facility] [address] Performing Lab: [facility] [address] TROPONIN I, HS 136 HH <35 Jan 27, 2024 06:52 PM [facility] BASIC METABOLIC PANEL+MG Specimen Type: PLASMA No comment entered. Ordering Provider: BASHIR CARVAJAL Report Released Date/Time: Jan 27, 2024 04:54 PM Reporting Lab: [facility] [address] Performing Lab: [facility] [address] CREATININE 1.3 mg/dL H 0.7-1.2 UREA NITROGEN 30 mg/dL H 8-26 GLUCOSE 141 mg/dL H 70-100 SODIUM 142 mmol/L 136-145 POTASSIUM 3.4 mmol/L L 3.5-5.1 CHLORIDE 106 mmol/L 98-107 CO2 27 mmol/L 22-29 CALCIUM 8.8 mg/dL 8.4-10.2 MAGNESIUM 2.2 mg/dL 1.6-2.6 ANION GAP 9 mmol/L 5-15 .CREAT EGFR(CKD-EPI) 54 L >60 Jan 27, 2024 06:52 PM [facility] CBC Specimen Type: BLOOD No comment entered. Ordering Provider: BASHIR CARVAJAL Report Released Date/Time: Jan 27, 2024 04:54 PM Reporting Lab: [facility] [address] Performing Lab: [facility] [address] WBC 6.0 4.0-11.0 RBC 3.91 L 4.60-6.20 HGB 12.1 g/dL L 13.5-17.9 HCT 36.5 L 41.0-54.0 MCV 93.4 fL 80.0-100.0 MCH 30.9 pg 27.0-33.0 MCHC 33.2 g/dL 32.0-37.5 PLT 177 150-400 MPV 10.7 fL 9.1-13.0 RDW 12.4 11.5-14.5 Social History: Smoking Status (Most current) and Tobacco Use (All prior to encounter date) This section includes the most current, and the historical, smoking and tobacco- related health factors from the [place] facility where the Encounter took place. Current Smoking Status This section includes the most current smoking, or tobacco-related health factor, from the [place] facility where the Encounter took place. Date/Time Current Smoking Status Comment Facil ity Dec 14, 2023 11:30 AM VA-TOBACCO FORMER USER [facility] Tobacco Use History This section includes a history of the smoking, or tobacco-related health factors, that were collected on or before the date of the Encounter. The data comes from the [place] facility where the Encounter took place. Date/Time Smoking Status/Tobacco Use Comment F acility Dec 14, 2023 11:30 AM VA-TOBACCO QUIT 15 YRS OR MORE [facility] Oct 13, 2022 01:30 PM VA-TOBACCO FORMER USER [facility] Oct 13, 2022 01:30 PM VA-TOBACCO QUIT 15 YRS OR MORE [facility] Jul 27, 2021 10:00 AM VA-TOBACCO FORMER USER [facility] Jul 27, 2021 10:00 AM VA-TOBACCO QUIT 15 YRS OR MORE [facility] Jan 02, 2020 09:00 AM VA-TOBACCO FORMER USER [facility] Jan 02, 2020 09:00 AM VA-TOBACCO QUIT 15 YRS OR MORE [facility] Jul 21, 2018 03:00 PM VA-TOBACCO FORMER USER [facility] Jul 21, 2018 03:00 PM VA-TOBACCO QUIT 15 YRS OR MORE [facility] Dec 24, 2016 08:01 AM FORMER TOBACCO USER 7Y OR GREATE R [facility] Dec 23, 2015 08:23 AM FORMER TOBACCO USE >1Y <7Y [facility] Dec 26, 2014 10:32 AM FORMER TOBACCO USER 7Y OR GREATE R [facility] August 13, 2013 08:22 AM LIFETIME NON-TOBACCO USER [facility] August 30, 2006 08:38 AM FORMER TOBACCO USER 7Y OR GREATE R [facility] Advance Directives: All historical and current Section Date Range: From patient's date of to the date document was created. This section includes ALL of a patient's completed or amended [place] Advance and Rescinded Directives. The entries below indicate that a directive exists for the patient, but an actual copy is not included with this document. The data comes from all [facility]. Date Advance Directives Provider Source August 30, 2006 ADVANCE DIRECTIVE [facility] CR[facility] Pathology Reports: +/- 30 [...] the Encounter. The data comes from all [place] treatment facilities. Date/Time Pathology Report Provider Source Jan 06, 2024 11:16 AM LR SURGICAL PATHOL OGY REPORT: LOCAL TITLE: LR SURGICAL PATHOLOGY REPORT STANDARD TITLE: PATHOLOGY REPORT DATE OF NOTE: JAN 06, 2024@11:16:39 ENTRY DATE: JAN 06, 2024@11:16:39 AUTHOR: JOSE REESE COSIGNER: URGENCY: STATUS: COMPLETED $APHDR Reporting Lab: [facility] [CLIA# [id number]] [place] [address] - - - - - - - [...] - PATHOLOGY REPORT Accession No. [id number] - - - - - - - [...] - PATHOLOGY REPORT Accession No. [id number] - - - - - - - [...] 0.1 cm. The specimen is inked. CE. [facility] MICROSCOPIC DESCRIPTION: Microscopic examination performed. CI. 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 STAFF PATHOLOGIST Signed Jan 06, 2024@11:16 Performing Laboratory: Surgical Pathology Report Performed By: [facility] [CLIA# [id number]] [place] [address] $FTR - - - - - - [...] - - GERI COUGHLIN STANDARD FORM 515 ID:[id number] SEX:M :1935 AGE: 88 LOC:[id number] PCP: Sariah Gomes MD /shelly/ JOSE REESE M.D. STAFF PATHOLOGIST Signed: 01/06/2024 11:16 JOSE REESE [facility] Encounter Notes: All associated encounter notes This section contains the clinical notes associated to the Encounter. Date/Time Encounter Note(s) Provider Source Jan 27, 2024 11:47 AM NONVA NOTE: LOCAL TITLE: [facility] SELF PRESENTING CARE COORD PLAN STANDARD TITLE: NONVA NOTE DATE OF NOTE: JAN 27, 2024@11:47 ENTRY DATE: JAN 27, 2024@11:48:04 AUTHOR: SARA BARBOSA EXP COSIGNER: URGENCY: STATUS: COMPLETED [facility] SELF PRESENTING CARE COORD PLAN NOTE Has ADDENDA Emergency Notification Intake Date Presenting to the Facility: Jan Method of Contact: Phone Centralized Call Center Notified [facility] Name: Hospital: [facility] Address: City: [place] State: [place] Zip Code: Phone : [facility] Point of Contact: Name: DR AQUINO Chief complaint: UNSTABLE ANGINA Primary Diagnosis: Disposition Unknown at time of intake note entry SEEKING CARDIAC BED FOR TO [facility]. PLEASE CONTACT DR AQUINO @ [phone]. /shelly/ SARA BARBOSA SHIPMASTER Signed: 01/27/2024 11:51 Receipt Acknowledged By: 01/27/2024 11:57 /es/ HORACE ALMANZA RN children's entertainer Internet Database Specialist 01/27/2024 ADDENDUM STATUS: COMPLETED At 1152, received a cardiac inpt transfer request from [facility], POC is Dr. Rupert Aquino @ [phone]. Actuary Clerk reviewed notes in cprs, notes were not available in JLV. At 1205, Actuary Clerk returned call to Dr. Aquino. Dr. Aquino stated the had been having intermittent chest pain for three weeks. Vitals have been stable, hr in the 50's; however, per cprs, [place]'s hr has been in the 50's on the last couple of visits. Satting in the upper 90's on RA. [place] had a positive stress test yesterday. MD believes the [place] should be admitted on a cardiology unit for an angiogram. Did not have current lab results and heparin has not been started even though the MD stated Cardiology would probably want this done. Actuary Clerk explained to Dr. Aquino at this time, the [facility] did not have any open beds and Actuary Clerk would need to speak with Leadership for bed availability. Dr. Aquino stated his understanding and would wait for Actuary Clerk to call back. At 1219, Actuary Clerk reached out to Leadership with 's information and asking if there would be a bed availble for the [place]. At 1233, Leadership approved a bed for the [place]. At 1237, Actuary Clerk updated the bed coordinator that Leadership approved a bed for the . At 1239, Cardiology was paged. At 1255, Cardiology returned call. 's information was given. MD stated he would like to speak with the outside MD but would accept him. Cardiology requesting the [place] admit to 3K step-down. Actuary Clerk was unable to conference the MDs- asked Cardiology if he would be available at the present number while another attempt was made. Cardiology confirmed he could be reached at his pager number. At 1315, Bed Coordinator informed Cardiology would accept the [place] and would like 3K. Bed Coordinator replied there would be a bed available on 3K for the [place]. At 1308, Cardiology was paged- Conference call began at 1320 and ended at 1328. At 1354, Actuary Clerk informed AOD via TEAMS the was accepted and would be going to 3K. At 1356, Actuary Clerk called Michie and provided the nurse with the receiving case's phone number. Actuary Clerk informed the Bed Coordinator of the 's ETA. /shelly/ HORACE ALMANZA, RN children's entertainer Internet Database Specialist Signed: 01/27/2024 14:32 01/30/2024 ADDENDUM STATUS: COMPLETED NOTIFICATION ID: [id number] STATUS: Closed - Approved for 170 /shelly/ AUTUMN WELDON Tank Pumper Panelboard(AOD) Signed: 01/30/2024 08:15 SARA BARBOSA [facility]
--- OUTSIDE RECORDS SUMMARY | 2024-02-10 23:34 | XMS_ITS | Encounter Summary ---
Author Name [facility] [place] Organization [facility] [place] Address [address] [place] [address] Care Team Providers Care Interventional Sale Consultant Name Role Phone SARIAH GOMES Primary Care [...] PART A Sep 09, 2002 PART A [id number] [phone] JOAQUIN COUGHLIN S PATIENT MEDICARE (WNR) MEDICARE (M) PART B Sep 09, 2002 PART B [id number] JOAQUIN COUGHLIN S PATIENT MEDICARE (WNR) MEDICARE (M) PART A Sep 09, 2002 PART A [id number] JOAQUIN COUGHLIN S PATIENT MEDICARE (WNR) MEDICARE (M) PART B Sep 09, 2002 PART B [id number] JOAQUIN COUGHLIN S PATIENT Selected Encounter This section includes the information on record at [place] for the Encounter. Date/Time Encounter Type Encounter Description Reason Provider Source Jan 05, 2024 08:00 AM OFFICE O/P EST MOD 30 MIN DERMATOLOGY ICD-10-CM D48.5 Neoplasm of uncertain behavior of skin BERSHOW,TRISHA L [facility] Encounter Template Text not used by [place] Assessments - Encounter Diagnoses This section includes the primary and secondary diagnoses documented for the Encounter. Date/Time Primary/Secondary Diagnosis Diagnosis Name Provider Source Jan 05, 2024 08:38 AM PRIMARY Neoplasm of uncertain behavior of skin SAM SANCHES [facility] Jan 05, 2024 08:38 AM SECONDARY Actinic keratosis SAM SANCHES [facility] Jan 05, 2024 08:38 AM SECONDARY Other seborrheic keratosis SAM SANCHES [facility] Plan of Treatment: Future Appointments (+ 6 months) and Future Tests (+/- 45 days) The Plan of Treatment section includes future care activities for the patient from all [place] [facility]. This section includes future appointments and future orders which are active, pending or scheduled. Future Appointments This section includes appointments that were scheduled to occur 6 months from the date of the Encounter, up to a maximum of 20 appointments. The data comes from all [facility]. Appointment Date/Time Appointment Type Appointme nt Facility Name Jan 10, 2024 12:00 PM AMBULATORY - NONE [facility] Jan 11, 2024 01:30 PM AMBULATORY - MEDICINE [facility] Jan 26, 2024 08:30 AM AMBULATORY - NONE [facility] Jan 27, 2024 11:47 AM AMBULATORY - NONE [facility] Feb 21, 2024 10:00 AM AMBULATORY - MEDICINE [facility] Feb 24, 2024 12:15 PM AMBULATORY - MEDICINE [facility] Feb 24, 2024 01:00 PM AMBULATORY - MEDICINE [facility] Mar 02, 2024 01:00 PM AMBULATORY - REHAB MEDICIN E [facility] Active, Pending, and Scheduled Orders This section includes a listing of several types of active, pending, and scheduled orders, including clinic medications orders, diagnostic test orders, procedure orders and consult orders; where the start date of the order is 45 days before the date of the Encounter or 45 days after the date of theEncounter. The data comes from all [facility]. Test Date/Time Test Type Test Details Facility Name Jan 18, 2024 04:23 PM Consult Order COMMUNITY CARE-ECHOCARDIOGRAPHY Cons Major Assembler's Choice [facility] Jan 19, 2024 12:10 PM Consult Order COMMUNITY CARE-DERMATOLOGY Cons Major Assembler[facility] Choice [facility] Jan 28, 2024 02:00 AM Laboratory - Chemistry Order TROPONIN I, HS PLASMA STAT WC [facility] Jan 31, 2024 09:30 AM Consult Order CARDIAC REHAB OUTPT Cons Bedside [facility] Jan 31, 2024 10:13 AM Consult Order CARDIOLOGY INTERVENTIONAL CLINIC OUTPT Cons Major As[employer]er[employer] Choice [facility] Lab Results: +/- 30 days of [...] Range Comment Jan 31, 2024 10:50 AM [facility] LIPID PANEL,FASTING Specimen Type: PLASMA No comment entered. Ordering Provider: JULIET SMART Report Released Date/Time: Jan 31, 2024 10:13 AM Reporting Lab: [facility] [address] Performing Lab: [facility] [address] CHOLESTEROL 125 mg/dL <199 TRIGLYCERIDE 95 mg/dL <149 .HDL 37 mg/dL L >40 LDL CALCULATION 69 mg/dL <99 VLDL CALCULATION 19 mg/dL <29 NON HDL CHOLESTEROL 88 mg/dL <129 Jan 31, 2024 10:50 AM [facility] HEMOGLOBIN A1C Specimen Type: BLOOD Comment: [...] Jan 31, 2024 10:13 AM Reporting Lab: [facility] [address] Performing Lab: [facility] [address] HEMOGLOBIN A1C 5.4 4.0-6.0 Jan 31, 2024 07:29 AM [facility] CBC Specimen Type: BLOOD No comment entered. Ordering Provider: BASHIR CARVAJAL Report Released Date/Time: Jan 30, 2024 01:03 PM Reporting Lab: [facility] [address] Performing Lab: [facility] [address] WBC 7.3 4.0-11.0 RBC 3.83 L 4.60-6.20 HGB 11.4 g/dL L 13.5-17.9 HCT 35.1 L 41.0-54.0 MCV 91.6 fL 80.0-100.0 MCH 29.8 pg 27.0-33.0 MCHC 32.5 g/dL 32.0-37.5 PLT 193 150-400 MPV 10.7 fL 9.1-13.0 RDW 12.2 11.5-14.5 Jan 31, 2024 07:29 AM [facility] BASIC METABOLIC PANEL+MG Specimen Type: PLASMA No comment entered. Ordering Provider: BASHIR CARVAJAL Report Released Date/Time: Jan 30, 2024 01:03 PM Reporting Lab: [facility] [address] Performing Lab: [facility] [address] CREATININE 1.3 mg/dL H 0.7-1.2 UREA NITROGEN 24 mg/dL 8-26 GLUCOSE 91 mg/dL 70-100 SODIUM 138 mmol/L 136-145 POTASSIUM 4.1 mmol/L 3.5-5.1 CHLORIDE 108 mmol/L H 98-107 CO2 23 mmol/L 22-29 CALCIUM 8.8 mg/dL 8.4-10.2 MAGNESIUM 2.1 mg/dL 1.6-2.6 ANION GAP 7 mmol/L 5-15 .CREAT EGFR(CKD-EPI) 54 L >60 Jan 30, 2024 10:37 AM [facility] POC ACT Specimen Type: BLOOD No comment entered. Ordering Provider: RODO CHRISTY Report Released Date/Time: Jan 30, 2024 10:43 AM Reporting Lab: [facility] [address] Performing Lab: [facility] [address] POC ACT 241 s H 84-139 Jan 30, 2024 10:08 AM [facility] POC ACT Specimen Type: BLOOD No comment entered. Ordering Provider: RODO CHRISTY Report Released Date/Time: Jan 30, 2024 10:14 AM Reporting Lab: [facility] [address] Performing Lab: [facility] [address] POC ACT 289 s H 84-139 Jan 30, 2024 09:34 AM [facility] POC ACT Specimen Type: BLOOD No comment entered. Ordering Provider: RODO CHRISTY Report Released Date/Time: Jan 30, 2024 10:14 AM Reporting Lab: [facility] [address] Performing Lab: [facility] [address] POC ACT 294 s H 84-139 Jan 30, 2024 05:37 AM [facility] HEPARIN APTT Specimen Type: PLASMA No comment entered. Ordering Provider: BASHIR CARVAJAL Report Released Date/Time: Jan 29, 2024 09:43 PM Reporting Lab: [facility] [address] Performing Lab: [facility] [address] HEPARIN APTT 83.2 s 48.0-92.0 Jan 30, 2024 05:37 AM [facility] BASIC METABOLIC PANEL+MG Specimen Type: PLASMA No comment entered. Ordering Provider: BASHIR CARVAJAL Report Released Date/Time: Jan 29, 2024 12:19 PM Reporting Lab: [facility] [address] Performing Lab: [facility] [address] CREATININE 1.4 mg/dL H 0.7-1.2 UREA NITROGEN 27 mg/dL H 8-26 GLUCOSE 95 mg/dL 70-100 SODIUM 139 mmol/L 136-145 POTASSIUM 4.2 mmol/L 3.5-5.1 CHLORIDE 109 mmol/L H 98-107 CO2 24 mmol/L 22-29 CALCIUM 9.0 mg/dL 8.4-10.2 MAGNESIUM 2.1 mg/dL 1.6-2.6 ANION GAP 6 mmol/L 5-15 .CREAT EGFR(CKD-EPI) 49 L >60 Jan 29, 2024 09:02 PM [facility] HEPARIN APTT Specimen Type: PLASMA Comment: Critical Value Reported To: Tomasa Delcid PharmD 01/29/24 @212[facility]. Critical value report confirmed. Ordering Provider: MERY SAMUEL Report Released Date/Time: Jan 29, 2024 03:00 PM Reporting Lab: [facility] [address] Performing Lab: [facility] [address] HEPARIN APTT 214.6 s HH 48.0-92.0 Jan 29, 2024 06:24 AM [facility] BASIC METABOLIC PANEL+MG Specimen Type: PLASMA No comment entered. Ordering Provider: BASHIR CARVAJAL Report Released Date/Time: Jan 28, 2024 04:36 PM Reporting Lab: [facility] [address] Performing Lab: [facility] [address] CREATININE 1.6 mg/dL H 0.7-1.2 UREA NITROGEN 27 mg/dL H 8-26 GLUCOSE 92 mg/dL 70-100 SODIUM 140 mmol/L 136-145 POTASSIUM 4.2 mmol/L 3.5-5.1 CHLORIDE 110 mmol/L H 98-107 CO2 25 mmol/L 22-29 CALCIUM 8.8 mg/dL 8.4-10.2 MAGNESIUM 2.1 mg/dL 1.6-2.6 ANION GAP 5 mmol/L 5-15 .CREAT EGFR(CKD-EPI) 42 L >60 Jan 28, 2024 05:54 AM [facility] EXTRA PURPLE TUBE Specimen Type: BLOOD No comment entered. Ordering Provider: RODO CHRISTY Report Released Date/Time: Jan 28, 2024 05:54 AM Reporting Lab: [facility] [address] Performing Lab: [facility] [address] EXTRA PURPLE TUBE RECEIVED Jan 28, 2024 05:53 AM [facility] ALBUMIN Specimen Type: PLASMA No comment entered. Ordering Provider: BASHIR CARVAJAL Report Released Date/Time: Jan 27, 2024 04:49 PM Reporting Lab: [facility] [address] Performing Lab: [facility] [address] ALBUMIN 3.5 g/dL 3.5-5.2 Jan 28, 2024 05:53 AM [facility] BASIC METABOLIC PANEL+MG Specimen Type: PLASMA No comment entered. Ordering Provider: BASHIR CARVAJAL Report Released Date/Time: Jan 27, 2024 05:44 PM Reporting Lab: [facility] [address] Performing Lab: [facility] [address] CREATININE 1.4 mg/dL H 0.7-1.2 UREA NITROGEN 28 mg/dL H 8-26 GLUCOSE 92 mg/dL 70-100 SODIUM 140 mmol/L 136-145 POTASSIUM 4.4 mmol/L 3.5-5.1 CHLORIDE 109 mmol/L H 98-107 CO2 23 mmol/L 22-29 CALCIUM 8.8 mg/dL 8.4-10.2 MAGNESIUM 2.1 mg/dL 1.6-2.6 ANION GAP 8 mmol/L 5-15 .CREAT EGFR(CKD-EPI) 49 L >60 Jan 28, 2024 05:52 AM [facility] TROPONIN I, HS Specimen Type: PLASMA Comment: Critical value previously reported on patient. Ordering Provider: BRANDON MEJIA Report Released Date/Time: Jan 27, 2024 09:15 PM Reporting Lab: [facility] [address] Performing Lab: [facility] [address] TROPONIN I, HS 128 HH <35 Jan 28, 2024 12:35 AM [facility] COVID-19 DIAGNOSTIC PANEL (CEPHEID) Specimen Type: NASOPHARYNGEAL Comment: Cepheid GeneXpert (618) Ordering Provider: LUCAS HAWTHORNE Report Released Date/Time: Jan 27, 2024 04:28 PM Reporting Lab: [facility] [address] Performing Lab: [facility] [address] COVID-19 (CEPHEID) Not Detected Not Detected Jan 28, 2024 12:35 AM [facility] TROPONIN I, HS Specimen Type: PLASMA Comment: Critical value previously reported on patient. Ordering Provider: BRANDON MEJIA Report Released Date/Time: Jan 27, 2024 09:15 PM Reporting Lab: [facility] [address] Performing Lab: [facility] [address] TROPONIN I, HS 158 HH <35 Jan 28, 2024 12:35 AM [facility] HEPARIN APTT Specimen Type: PLASMA Comment: Critical Value Reported To: Deena Oliveros PharmD 01/28/24 @0110 HV. Critical value report confirmed. Ordering Provider: NATALIE ORDOÑEZ Report Released Date/Time: Jan 27, 2024 07:18 PM Reporting Lab: [facility] [address] Performing Lab: [facility] [address] HEPARIN APTT 133.9 s HH 48.0-92.0 Jan 27, 2024 09:22 PM [facility] TROPONIN I, HS Specimen Type: PLASMA Comment: Critical value previously reported on patient. Ordering Provider: BASHIR CARVAJAL Report Released Date/Time: Jan 27, 2024 08:38 PM Reporting Lab: [facility] [address] Performing Lab: [facility] [address] TROPONIN I, HS 146 HH <35 Jan 27, 2024 06:52 PM [facility] TROPONIN I, HS Specimen Type: PLASMA Comment: Critical Value Reported To: Brandon Mejia MD 01/27/24 @[address] [place] [address]. Critical value report confirmed. Ordering Provider: BASHIR CARVAJAL Report Released Date/Time: Jan 27, 2024 04:54 PM Reporting Lab: [facility] [address] Performing Lab: [facility] [address] TROPONIN I, HS 136 HH <35 Jan 27, 2024 06:52 PM [facility] CBC Specimen Type: BLOOD No comment entered. Ordering Provider: BASHIR CARVAJAL Report Released Date/Time: Jan 27, 2024 04:54 PM Reporting Lab: [facility] [address] Performing Lab: [facility] [address] WBC 6.0 4.0-11.0 RBC 3.91 L 4.60-6.20 HGB 12.1 g/dL L 13.5-17.9 HCT 36.5 L 41.0-54.0 MCV 93.4 fL 80.0-100.0 MCH 30.9 pg 27.0-33.0 MCHC 33.2 g/dL 32.0-37.5 PLT 177 150-400 MPV 10.7 fL 9.1-13.0 RDW 12.4 11.5-14.5 Jan 27, 2024 06:52 PM [facility] BASIC METABOLIC PANEL+MG Specimen Type: PLASMA No comment entered. Ordering Provider: BASHIR CARVAJAL Report Released Date/Time: Jan 27, 2024 04:54 PM Reporting Lab: [facility] [address] Performing Lab: [facility] [address] CREATININE 1.3 mg/dL H 0.7-1.2 UREA NITROGEN 30 mg/dL H 8-26 GLUCOSE 141 mg/dL H 70-100 SODIUM 142 mmol/L 136-145 POTASSIUM 3.4 mmol/L L 3.5-5.1 CHLORIDE 106 mmol/L 98-107 CO2 27 mmol/L 22-29 CALCIUM 8.8 mg/dL 8.4-10.2 MAGNESIUM 2.2 mg/dL 1.6-2.6 ANION GAP 9 mmol/L 5-15 .CREAT EGFR(CKD-EPI) 54 L >60 Dec 14, 2023 12:33 PM [facility] TSH W/REFLEX TO FREE T4 Specimen Type: PLASMA No comment entered. Ordering Provider: SARIAH GOMES Report Released Date/Time: Dec 14, 2023 12:10 PM Reporting Lab: [facility] [address] Performing Lab: [facility] [address] TSH 5.10 u[IU]/mL H 0.35-4.94 FREE T4 0.83 ng/dL 0.70-1.48 Dec 14, 2023 12:33 PM [facility] IRON GROUP Specimen Type: SERUM No comment entered. Ordering Provider: SARIAH GOMES Report Released Date/Time: Dec 14, 2023 12:10 PM Reporting Lab: [facility] [address] Performing Lab: [facility] [address] IRON 95 ug/dL 65-175 TIBC,CALCULATE D 276 ug/dL 250-425 FERRITIN 495.9 ng/mL H 21.8-274.7 IRON SATURATION 34 20-50 TRANSFERRIN 221 mg/dL 163-382 Dec 14, 2023 12:33 PM [facility] B 12 Specimen Type: SERUM No comment entered. Ordering Provider: SARIAH GOMES Report Released Date/Time: Dec 14, 2023 12:10 PM Reporting Lab: [facility] [address] Performing Lab: [facility] [address] B 12 642 pg/mL 213-816 Dec 14, 2023 12:33 PM [facility] LIPID PANEL,NON-FASTING Specimen Type: PLASMA No comment entered. Ordering Provider: SARIAH GOMES Report Released Date/Time: Dec 14, 2023 12:10 PM Reporting Lab: [facility] [address] Performing Lab: [facility] [address] CHOLESTEROL 186 mg/dL <199 .HDL 49 mg/dL >40 LDL CALCULATION 116 mg/dL H <99 VLDL CALCULATION 21 mg/dL <29 NON HDL CHOLESTEROL 137 mg/dL H <129 TRIG(NON FASTING) 106 mg/dL <149 Dec 14, 2023 12:33 PM [facility] FOLATE Specimen Type: SERUM No comment entered. Ordering Provider: SARIAH GOMES Report Released Date/Time: Dec 14, 2023 12:10 PM Reporting Lab: [facility] [address] Performing Lab: [facility] [address] FOLATE 11.5 ng/mL >7.0 Dec 14, 2023 12:33 PM [facility] HEMOGLOBIN A1C Specimen Type: BLOOD Comment: Values obtained from A1C measurements can vary. For typical A1C assays, a reported value of 7.0 could actually be between 6.7 and 7.3 if measured by a reference method. A reported value of 9.0 could actually be between 8.7 and 9.3. Ref: http://www.ngsp .org/CAPdata.as p Ordering Provider: SARIAH GOMES Report Released Date/Time: Dec 14, 2023 12:10 PM Reporting Lab: [facility] [address] Performing Lab: [facility] [address] HEMOGLOBIN A1C 5.3 4.0-6.0 Dec 14, 2023 12:33 PM [facility] CBC Specimen Type: BLOOD No comment entered. Ordering Provider: SARIAH GOMES Report Released Date/Time: Dec 14, 2023 12:10 PM Reporting Lab: [facility] [address] Performing Lab: [facility] [address] WBC 5.5 4.0-11.0 RBC 4.59 L 4.60-6.20 HGB 14.0 g/dL 13.5-17.9 HCT 43.0 41-54 MCV 93.7 fL 80-100 MCH 30.5 pg 27-33 MCHC 32.6 g/dL 32.0-37.5 PLT 184 150-400 MPV 10.6 fL H 7.4-10.4 RDW 12.7 11.5-14.5 Dec 14, 2023 12:33 PM [facility] COMPREHENSIVE METABOLIC PANEL+MG Specimen Type: PLASMA No comment entered. Ordering Provider: SARIAH GOMES Report Released Date/Time: Dec 14, 2023 12:10 PM Reporting Lab: [facility] [address] Performing Lab: [facility] [address] CREATININE 1.2 mg/dL 0.7-1.2 UREA NITROGEN 23 [...] and tobacco- related health factors from the [facility] where the Encounter took place. Current Smoking Status This section includes the most current smoking, or tobacco-related health factor, from the [place] facility where the Encounter took place. Date/Time Current Smoking Status Comment Mimi hernandez Dec 14, 2023 11:30 AM VA-TOBACCO QUIT 15 YRS OR MORE [facility] Tobacco Use History This section includes a history of the smoking, or tobacco-related health factors, that were collected on or before the date of the Encounter. The data comes from the [place] facility where the Encounter took place. Date/Time Smoking Status/Tobacco Use Comment F acility Dec 14, 2023 11:30 AM VA-TOBACCO QUIT 15 YRS OR MORE [facility] Oct 13, 2022 01:30 PM VA-TOBACCO FORMER USER [facility] Oct 13, 2022 01:30 PM VA-TOBACCO QUIT 15 YRS OR MORE [facility] Jul 27, 2021 10:00 AM VA-TOBACCO FORMER USER [facility] Jul 27, 2021 10:00 AM VA-TOBACCO QUIT 15 YRS OR MORE [facility] Jan 02, 2020 09:00 AM VA-TOBACCO FORMER USER [facility] Jan 02, 2020 09:00 AM VA-TOBACCO QUIT 15 YRS OR MORE [facility] Jul 21, 2018 03:00 PM VA-TOBACCO FORMER USER [facility] Jul 21, 2018 03:00 PM VA-TOBACCO QUIT 15 YRS OR MORE [facility] Dec 24, 2016 08:01 AM FORMER TOBACCO USER 7Y OR GREATE R [facility] Dec 23, 2015 08:23 AM FORMER TOBACCO USE >1Y <7Y [facility] Dec 26, 2014 10:32 AM FORMER TOBACCO USER 7Y OR GREATE R [facility] August 13, 2013 08:22 AM LIFETIME NON-TOBACCO USER [facility] August 30, 2006 08:38 AM FORMER TOBACCO USER 7Y OR GREATE R [facility] Advance Directives: All historical and current Section Date Range: From patient's date of to the date document was created. This section includes ALL of a patient's completed or amended [place] Advance and Rescinded Directives. The entries below indicate that a directive exists for the patient, but an actual copy is not included with this document. The data comes from all [facility]. Date Advance Directives Provider Source August 30, 2006 ADVANCE DIRECTIVE ARGENIS CRAMER [facility] Pathology Reports: +/- 30 days [...] COSIGNER: URGENCY: STATUS: COMPLETED $APHDR Reporting Lab: [facility] [CLIA# [id number]] [place] [address] - - - - - - - [...] - PATHOLOGY REPORT Accession No. [id number] - - - - - - - [...] - PATHOLOGY REPORT Accession No. [id number] - - - - - - - [...] cm. The specimen is inked. CE. (D)[facility] MICROSCOPIC DESCRIPTION: Microscopic examination [...] Performing Laboratory: Surgical Pathology Report Performed By: [facility] [CLIA# [id number]] [facility] [place] [address] $FTR - - - - - - [...] - - - - - - - MADYSON,GERI NUNEZ STANDARD FORM 515 ID:[id number] SEX:M :1935 AGE: 88 LOC:[id number] PCP: Sariah Gomes MD /shelly/ JOSE REESE M.D. STAFF PATHOLOGIST Signed: 01/06/2024 11:16 JOSE REESE [facility] Encounter Notes: All associated encounter notes [...] w Dr. Cook at [facility] in [place], [place]. Will await call for scheduling the [...] R postauricular neck. s/p Traveling Vet in [facility] 12/2022 - s/mBCC, L postauricular neck. 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 s/p Traveling Vet in [facility] 12/2022 - s/mBCC, L postauricular neck. s/p Traveling Vet in [facility] 12/2022 - nodular and fibrosing BCC, R [...] Had MOHS x 2 last year in [place]. Went well. Otherwise no new, tender, non-healing,or [...] cc of 1% lidocaine with epinephrine. A [place] blade was used to shave the lesion. [...] Will aim for when he returns from [place] in July or sooner for any tender, painful, bleeding, rapidly changing, or otherwise concerning lesions. Total encounter time (including chart review, counseling, documentation, ordering of labs/meds): 30-39 min /nolan SANCHES MD RESIDENT Signed: 01/05/2024 08:40 Receipt Acknowledged By: 01/09/2024 14:26 /shelly/ TRISHA JIMÉNEZ MD CHIEF DERMATOLOGY 01/09/2024 ADDENDUM STATUS: COMPLETED I saw and evaluated the patient with the resident, and agree with the assessment and plan as written in the resident's note. /nolan JIMÉNEZ MD CHIEF DERMATOLOGY Signed: 01/09/2024 14:27 SAM SANCHES [facility] Jan 05, 2024 08:49 AM DERMATOLOGY NURSIN G OUTPATIENT NOTE: LOCAL TITLE: DERMATOLOGY CLINIC NURSING NOTE STANDARD TITLE: DERMATOLOGY NURSING OUTPATIENT NOTE DATE OF NOTE: JAN 05, 2024@08:49 ENTRY DATE: JAN 05, 2024@08:49:53 AUTHOR: JAQUELIN CHARLES EXP COSIGNER: URGENCY: STATUS: COMPLETED Dermatology Clinic [...] PRACTICAL NURSE Signed: 01/05/2024 08:52 JAQUELIN CHARLES [facility] Jan 05, 2024 07:56 AM DERMATOLOGY ATTEND [...] R postauricular neck. s/p Traveling Vet in [facility] 12/2022 - s/mBCC, L postauricular neck. s/p Traveling Vet in [facility] 12/2022 - nodular and fibrosing BCC, R [...] Had MOHS x 2 last year in [place]. Went well. Otherwise no new, tender, non-healing,or [...] Will aim for when he returns from [place] in July or sooner for any tender, [...] w Dr. Cook at [facility] in [place], [place]. Will await call for scheduling the procedure. Otherwise feeling well and biopsy site healing well. Clinically indicated date t+8w. 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 s/p Traveling Vet in [facility] 12/2022 - s/mBCC, L postauricular neck. 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 s/p Traveling Vet in [facility] 12/2022 - s/mBCC, L postauricular neck. s/p Traveling Vet in [facility] 12/2022 - nodular and fibrosing BCC, R preauricular cheek, s/p [facility] 10/19/17 - SCCis, L lower lip, s/p [facility] 11/03/16 - nBCC, Right upper back, excised in bx 01/02/15 - n+sBCC, Central midback, excised in bx 01/02/15 # AKs - 5FU/C in Winter 2023 - planning for 5FU/C to temples, cheeks, helices, dorsal arms/hands fall 2022 missed R upper back SCC excision appt given PCI/cardiac ICU status at the time of his visit. We subsequently reviewed the slides at the dermpath conference and found that there is likely low risk of recurrence given the reassuringpathology findings. Discussed options to re-schedule excision versus monitor at his next visit and defer surgery via phone today; opted to monitor at this time. Has RTC scheduled for spring. Return precautions advised. /shelly/ ANNA ATKINS RESIDENT Signed: 02/03/2024 10:48 SAM SANCHES [facility]
--- OUTSIDE RECORDS SUMMARY | 2024-02-10 23:35 | XMS_ITS ---
Author Name [facility] Organization [facility] Address [address] [place] [address] Care Team Providers Care Cupola Operator Insulation Name Role Phone SARIAH GOMES Primary Care [...] PART A Sep 09, 2002 PART A [phone] JOAQUIN BOYKIN S PATIENT MEDICARE (WNR) MEDICARE (M) PART B Sep 09, 2002 PART B [id number] NULL,JOAQUIN S PATIENT MEDICARE (WNR) MEDICARE (M) PART A Sep 09, 2002 PART A [id number] JOAQUIN BOYKIN S PATIENT MEDICARE (WNR) MEDICARE (M) PART B Sep 09, 2002 PART B [id number] JOAQUIN BOYKIN S PATIENT Selected Encounter This section includes the information on record at [place] for the Encounter. Date/Time Encounter Type Encounter Description Reason Provider Source Jan 27, 2024 03:[address] Scan of Mult Cor Art using [employer] HOSPITALIZATION ICD-10-CM Z87.891 Personal history of nicotine dependence TEAM,CARDS ONE IHE Encounter Template Text not used by [place] Assessments - Encounter Diagnoses This section includes the primary and secondary diagnoses documented for the Encounter. 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 [facility] Jan 31, 2024 12:29 PM SECONDARY Dysphagia, unspecified [facility] Jan 31, 2024 12:29 PM SECONDARY Hyperlipidemia, unspecified [facility] Jan 31, 2024 12:29 PM SECONDARY Hypertensive chronic kidney disease w stg 1-4/unsp chr kdny [facility] Jan 31, 2024 12:29 PM SECONDARY Hypothyroidism, unspecified [facility] Jan 31, 2024 12:29 PM SECONDARY Personal history of nicotine dependence [facility] Plan of Treatment: Future Appointments (+ 6 months) and Future Tests (+/- 45 days) The Plan of Treatment section includes future care activities for the patient from all [facility]. This section includes future appointments and future orders which are active, pending or scheduled. Future Appointments This section includes appointments that were scheduled to occur 6 months from the date of the Encounter, up to a maximum of 20 appointments. The data comes from all [facility]. Appointment Date/Time Appointment Type Appointme nt Facility Name Feb 21, 2024 10:00 AM AMBULATORY - MEDICINE [facility] Feb 24, 2024 12:15 PM AMBULATORY - MEDICINE [facility] Feb 24, 2024 01:00 PM AMBULATORY - MEDICINE [facility] Mar 02, 2024 01:00 PM AMBULATORY - REHAB MEDICIN E [facility] Active, Pending, and Scheduled Orders This section includes a listing of several types of active, pending, and scheduled orders, including clinic medications orders, diagnostic test orders, procedure orders and consult orders; where the start date of the order is 45 days before the date of the Encounter or 45 days after the date of theEncounter. The data comes from all [place] treatment facilities. Test Date/Time Test Type Test Details Facility Name Jan 18, 2024 04:23 PM Consult Order COMMUNITY CARE-ECHOCARDIOGRAPHY Cons [facility] Jan 19, 2024 12:10 PM Consult Order COMMUNITY CARE-DERMATOLOGY Cons [facility] Jan 28, 2024 02:00 AM Laboratory - Chemistry Order TROPONIN I, HS PLASMA STAT WC [facility] Jan 31, 2024 09:30 AM Consult Order CARDIAC REHAB OUTPT Cons Bedside [facility] Jan 31, 2024 10:13 AM Consult Order CARDIOLOGY INTERVENTIONAL CLINIC OUTPT Cons [facility] Lab Results: +/- 30 days of the encounter This section includes the Chemistry and Hematology Lab Results on record with [place] for the patient. Radiology Reports and Pathology Reports are provided separately, in subsequent sections. Lab Results This section contains the Chemistry/Hematology Results that were resulted 30 days before or 30 daysafter the date of the Encounter. Date/Time Source Result Type Result - Unit Interpretation Reference Range Comment Jan 31, 2024 10:50 AM [facility] HEMOGLOBIN A1C Specimen Type: BLOOD Comment: [...] Jan 31, 2024 10:13 AM Reporting Lab: [facility] [phone] Performing Lab: [facility] [address] HEMOGLOBIN A1C 5.4 4.0-6.0 Jan 31, 2024 10:50 AM [facility] LIPID PANEL,FASTING Specimen Type: PLASMA No comment entered. Ordering Provider: JULIET SMART Report Released Date/Time: Jan 31, 2024 10:13 AM Reporting Lab: [facility] [address] Performing Lab: [facility] [address] CHOLESTEROL 125 mg/dL <199 TRIGLYCERIDE 95 mg/dL <149 .HDL 37 mg/dL L >40 LDL CALCULATION 69 mg/dL <99 VLDL CALCULATION 19 mg/dL <29 NON HDL CHOLESTEROL 88 mg/dL <129 Jan 31, 2024 07:29 AM [facility] CBC Specimen Type: BLOOD No comment entered. Ordering Provider: BASHIR CARVAJAL Report Released Date/Time: Jan 30, 2024 01:03 PM Reporting Lab: [facility] [address] Performing Lab: [facility] [address] WBC 7.3 4.0-11.0 RBC 3.83 L 4.60-6.20 HGB 11.4 g/dL L 13.5-17.9 HCT 35.1 L 41.0-54.0 MCV 91.6 fL 80.0-100.0 MCH 29.8 pg 27.0-33.0 MCHC 32.5 g/dL 32.0-37.5 PLT 193 150-400 MPV 10.7 fL 9.1-13.0 RDW 12.2 11.5-14.5 Jan 31, 2024 07:29 AM [facility] BASIC METABOLIC PANEL+MG Specimen Type: PLASMA No comment entered. Ordering Provider: BASHIR CARVAJAL Report Released Date/Time: Jan 30, 2024 01:03 PM Reporting Lab: [facility] [address] Performing Lab: [facility] [address] CREATININE 1.3 mg/dL H 0.7-1.2 UREA NITROGEN 24 mg/dL 8-26 GLUCOSE 91 mg/dL 70-100 SODIUM 138 mmol/L 136-145 POTASSIUM 4.1 mmol/L 3.5-5.1 CHLORIDE 108 mmol/L H 98-107 CO2 23 mmol/L 22-29 CALCIUM 8.8 mg/dL 8.4-10.2 MAGNESIUM 2.1 mg/dL 1.6-2.6 ANION GAP 7 mmol/L 5-15 .CREAT EGFR(CKD-EPI) 54 L >60 Jan 30, 2024 10:37 AM [facility] POC ACT Specimen Type: BLOOD No comment entered. Ordering Provider: RODO CHRISTY Report Released Date/Time: Jan 30, 2024 10:43 AM Reporting Lab: [facility] [address] Performing Lab: [facility] [address] POC ACT 241 s H 84-139 Jan 30, 2024 10:08 AM [facility] POC ACT Specimen Type: BLOOD No comment entered. Ordering Provider: RODO CHRISTY Report Released Date/Time: Jan 30, 2024 10:14 AM Reporting Lab: [facility] [address] Performing Lab: [facility] [address] POC ACT 289 s H 84-139 Jan 30, 2024 09:34 AM [facility] POC ACT Specimen Type: BLOOD No comment entered. Ordering Provider: RODO CHRISTY Report Released Date/Time: Jan 30, 2024 10:14 AM Reporting Lab: [facility] [address] Performing Lab: [facility] [address] POC ACT 294 s H 84-139 Jan 30, 2024 05:37 AM [facility] HEPARIN APTT Specimen Type: PLASMA No comment entered. Ordering Provider: BASHIR CARVAJAL Report Released Date/Time: Jan 29, 2024 09:43 PM Reporting Lab: [facility] [address] Performing Lab: [facility] [address] HEPARIN APTT 83.2 s 48.0-92.0 Jan 30, 2024 05:37 AM [facility] BASIC METABOLIC PANEL+MG Specimen Type: PLASMA No comment entered. Ordering Provider: BASHIR CARVAJAL Report Released Date/Time: Jan 29, 2024 12:19 PM Reporting Lab: [facility] [address] Performing Lab: [facility] [address] CREATININE 1.4 mg/dL H 0.7-1.2 UREA NITROGEN 27 mg/dL H 8-26 GLUCOSE 95 mg/dL 70-100 SODIUM 139 mmol/L 136-145 POTASSIUM 4.2 mmol/L 3.5-5.1 CHLORIDE 109 mmol/L H 98-107 CO2 24 mmol/L 22-29 CALCIUM 9.0 mg/dL 8.4-10.2 MAGNESIUM 2.1 mg/dL 1.6-2.6 ANION GAP 6 mmol/L 5-15 .CREAT EGFR(CKD-EPI) 49 L >60 Jan 29, 2024 09:02 PM [facility] HEPARIN APTT Specimen Type: PLASMA Comment: Critical Value Reported To: Tomasa Delcid PharmD 01/29/24 @212[facility]. Critical value report confirmed. Ordering Provider: MERY SAMUEL Report Released Date/Time: Jan 29, 2024 03:00 PM Reporting Lab: [facility] [address] Performing Lab: [facility] [address] HEPARIN APTT 214.6 s HH 48.0-92.0 Jan 29, 2024 06:24 AM [facility] BASIC METABOLIC PANEL+MG Specimen Type: PLASMA No comment entered. Ordering Provider: BASHIR CARVAJAL Report Released Date/Time: Jan 28, 2024 04:36 PM Reporting Lab: [facility] [address] Performing Lab: [facility] [address] CREATININE 1.6 mg/dL H 0.7-1.2 UREA NITROGEN 27 mg/dL H 8-26 GLUCOSE 92 mg/dL 70-100 SODIUM 140 mmol/L 136-145 POTASSIUM 4.2 mmol/L 3.5-5.1 CHLORIDE 110 mmol/L H 98-107 CO2 25 mmol/L 22-29 CALCIUM 8.8 mg/dL 8.4-10.2 MAGNESIUM 2.1 mg/dL 1.6-2.6 ANION GAP 5 mmol/L 5-15 .CREAT EGFR(CKD-EPI) 42 L >60 Jan 28, 2024 05:54 AM [facility] EXTRA PURPLE TUBE Specimen Type: BLOOD No comment entered. Ordering Provider: RODO CHRISTY Report Released Date/Time: Jan 28, 2024 05:54 AM Reporting Lab: [facility] [address] Performing Lab: [facility] [address] EXTRA PURPLE TUBE RECEIVED Jan 28, 2024 05:53 AM [facility] ALBUMIN Specimen Type: PLASMA No comment entered. Ordering Provider: BASHIR CARVAJAL Report Released Date/Time: Jan 27, 2024 04:49 PM Reporting Lab: [facility] [address] Performing Lab: [facility] [address] ALBUMIN 3.5 g/dL 3.5-5.2 Jan 28, 2024 05:53 AM [facility] BASIC METABOLIC PANEL+MG Specimen Type: PLASMA No comment entered. Ordering Provider: BASHIR CARVAJAL Report Released Date/Time: Jan 27, 2024 05:44 PM Reporting Lab: [facility] [address] Performing Lab: [facility] [address] CREATININE 1.4 mg/dL H 0.7-1.2 UREA NITROGEN 28 mg/dL H 8-26 GLUCOSE 92 mg/dL 70-100 SODIUM 140 mmol/L 136-145 POTASSIUM 4.4 mmol/L 3.5-5.1 CHLORIDE 109 mmol/L H 98-107 CO2 23 mmol/L 22-29 CALCIUM 8.8 mg/dL 8.4-10.2 MAGNESIUM 2.1 mg/dL 1.6-2.6 ANION GAP 8 mmol/L 5-15 .CREAT EGFR(CKD-EPI) 49 L >60 Jan 28, 2024 05:52 AM [facility] TROPONIN I, HS Specimen Type: PLASMA Comment: Critical value previously reported on patient. Ordering Provider: BRANDON MEJIA Report Released Date/Time: Jan 27, 2024 09:15 PM Reporting Lab: [facility] [address] Performing Lab: [facility] [address] TROPONIN I, HS 128 HH <35 Jan 28, 2024 12:35 AM [facility] COVID-19 DIAGNOSTIC PANEL (CEPHEID) Specimen Type: NASOPHARYNGEAL Comment: Cepheid GeneXpert (618) Ordering Provider: ASH HAWTHORNE Report Released Date/Time: Jan 27, 2024 04:28 PM Reporting Lab: [facility] [address] Performing Lab: [facility] [address] COVID-19 (CEPHEID) Not Detected Not Detected Jan 28, 2024 12:35 AM [facility] HEPARIN APTT Specimen Type: PLASMA Comment: Critical Value Reported To: Deena Oliveros PharmD 01/28/24 @0110 HV. Critical value report confirmed. Ordering Provider: NATALIE ORDOÑEZ Report Released Date/Time: Jan 27, 2024 07:18 PM Reporting Lab: [facility] [address] Performing Lab: [facility] [address] HEPARIN APTT 133.9 s HH 48.0-92.0 Jan 28, 2024 12:35 AM [facility] TROPONIN I, HS Specimen Type: PLASMA Comment: Critical value previously reported on patient. Ordering Provider: BRANDON MEJIA Report Released Date/Time: Jan 27, 2024 09:15 PM Reporting Lab: [facility] [address] Performing Lab: [facility] [address] TROPONIN I, HS 158 HH <35 Jan 27, 2024 09:22 PM [facility] TROPONIN I, HS Specimen Type: PLASMA Comment: Critical value previously reported on patient. Ordering Provider: BASHIR CARVAJAL Report Released Date/Time: Jan 27, 2024 08:38 PM Reporting Lab: [facility] [address] Performing Lab: [facility] [address] TROPONIN I, HS 146 HH <35 Jan 27, 2024 06:52 PM [facility] TROPONIN I, HS Specimen Type: PLASMA Comment: Critical Value Reported To: Brandon Mejia MD 01/27/24 @[address] [place] [address]. Critical value report confirmed. Ordering Provider: BASHIR CARVAJAL Report Released Date/Time: Jan 27, 2024 04:54 PM Reporting Lab: [facility] [address] Performing Lab: [facility] [address] TROPONIN I, HS 136 HH <35 Jan 27, 2024 06:52 PM [facility] CBC Specimen Type: BLOOD No comment entered. Ordering Provider: BASHIR CARVAJAL Report Released Date/Time: Jan 27, 2024 04:54 PM Reporting Lab: [facility] [address] Performing Lab: [facility] [address] WBC 6.0 4.0-11.0 RBC 3.91 L 4.60-6.20 HGB 12.1 g/dL L 13.5-17.9 HCT 36.5 L 41.0-54.0 MCV 93.4 fL 80.0-100.0 MCH 30.9 pg 27.0-33.0 MCHC 33.2 g/dL 32.0-37.5 PLT 177 150-400 MPV 10.7 fL 9.1-13.0 RDW 12.4 11.5-14.5 Jan 27, 2024 06:52 PM [facility] BASIC METABOLIC PANEL+MG Specimen Type: PLASMA No comment entered. Ordering Provider: BASHIR CARVAJAL Report Released Date/Time: Jan 27, 2024 04:54 PM Reporting Lab: [facility] [address] Performing Lab: [facility] [address] CREATININE 1.3 mg/dL H 0.7-1.2 UREA NITROGEN 30 mg/dL H 8-26 GLUCOSE 141 mg/dL H 70-100 SODIUM 142 mmol/L 136-145 POTASSIUM 3.4 mmol/L L 3.5-5.1 CHLORIDE 106 mmol/L 98-107 CO2 27 mmol/L 22-29 CALCIUM 8.8 mg/dL 8.4-10.2 MAGNESIUM 2.2 mg/dL 1.6-2.6 ANION GAP 9 mmol/L 5-15 .CREAT EGFR(CKD-EPI) 54 L >60 Social History: Smoking Status (Most current) and Tobacco Use (All prior to encounter date) This section includes the most current, and the historical, smoking and tobacco- related health factors from the [place] facility where the Encounter took place. Current Smoking Status This section includes the most current smoking, or tobacco-related health factor, from the [place] facility where the Encounter took place. Date/Time Current Smoking Status Comment Mimi hernandez Dec 14, 2023 11:30 AM VA-TOBACCO FORMER USER [facility] Tobacco Use History This section includes a history of the smoking, or tobacco-related health factors, that were collected on or before the date of the Encounter. The data comes from the [place] facility where the Encounter took place. Date/Time Smoking Status/Tobacco Use Comment F acility Dec 14, 2023 11:30 AM VA-TOBACCO QUIT 15 YRS OR MORE [facility] Oct 13, 2022 01:30 PM VA-TOBACCO FORMER USER [facility] Oct 13, 2022 01:30 PM VA-TOBACCO QUIT 15 YRS OR MORE [facility] Jul 27, 2021 10:00 AM VA-TOBACCO FORMER USER [facility] Jul 27, 2021 10:00 AM VA-TOBACCO QUIT 15 YRS OR MORE [facility] Jan 02, 2020 09:00 AM VA-TOBACCO FORMER USER [facility] Jan 02, 2020 09:00 AM VA-TOBACCO QUIT 15 YRS OR MORE [facility] Jul 21, 2018 03:00 PM VA-TOBACCO FORMER USER [facility] Jul 21, 2018 03:00 PM VA-TOBACCO QUIT 15 YRS OR MORE [facility] Dec 24, 2016 08:01 AM FORMER TOBACCO USER 7Y OR GREATE R [facility] Dec 23, 2015 08:23 AM FORMER TOBACCO USE >1Y <7Y [facility] Dec 26, 2014 10:32 AM FORMER TOBACCO USER 7Y OR GREATE R [facility] August 13, 2013 08:22 AM LIFETIME NON-TOBACCO USER [facility] August 30, 2006 08:38 AM FORMER TOBACCO USER 7Y OR GREATE R [facility] Advance Directives: All historical and current Section Date Range: From patient's date of to the date document was created. This section includes ALL of a patient's completed or amended [place] Advance and Rescinded Directives. The entries below indicate that a directive exists for the patient, but an actual copy is not included with this document. The data comes from all [place] facilities. Date Advance Directives Provider Source August 30, 2006 ADVANCE DIRECTIVE [facility] Pathology Reports: +/- 30 days of [...] the Encounter. The data comes from all [place] treatment facilities. Date/Time Pathology Report Provider Source Jan 06, 2024 11:16 AM [facility] SURGICAL PATHOL OGDion REPORT: LOCAL TITLE: LR SURGICAL PATHOLOGY REPORT STANDARD TITLE: PATHOLOGY REPORT DATE OF NOTE: JAN 06, 2024@11:16:39 ENTRY DATE: JAN 06, 2024@11:16:39 AUTHOR: JOSE REESE COSIGNER: URGENCY: STATUS: COMPLETED $APHDR Reporting Lab: [facility] [CLIA# [id number]] [place] [address] - - - - - - - [...] - PATHOLOGY REPORT Accession No. [id number] - - - - - - - [...] - - - PATHOLOGY REPORT [id number] - - - - - - - [...] 0.1 cm. The specimen is inked. CE. (D)[facility] [place]CROSCOPIC DESCRIPTION: Microscopic examination performed. CI. 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 STAFF PATHOLOGIST Signed Jan 06, 2024@11:16 Performing Laboratory: Surgical Pathology Report Performed By: [facility] [CLIA# [id number]] [place] [address] $FTR - - - - - - - - - - - - - - - - - - - - - - - - - - - - - - - - - - - - - - - - (End of report) JOSE REESE MD [facility] Date Jan 06, 2024 - - - - - - - - - - - - - - - - - - - - - - - - - - - - - - - - - - - - - - - - MADYSONGERI NUNEZ STANDARD FORM 515 ID:[id number] SEX:M :1935 AGE: 88 LOC:[id number] PCP: Sariah Gomes MD /shelly/ JOSE REESE M.D. STAFF PATHOLOGIST Signed: 01/06/2024 11:16 JOSE REESE [facility] Encounter Notes: All associated encounter notes This section contains the clinical notes associated to the Encounter. Date/Time Encounter Note(s) Provider Source Jan 31, 2024 01:01 PM NURSING DISCHARGE NOTE: LOCAL TITLE: [facility] NURSING DISCHARGE SUMMARY STANDARD TITLE: NURSING DISCHARGE NOTE DATE OF NOTE: JAN 31, 2024@13:01 ENTRY DATE: JAN 31, 2024@13:01:25 AUTHOR: TRISHA KHAN COSIGNER: URGENCY: STATUS: COMPLETED Nursing Discharge Summary Home Discharge date and time: Jan@12:40 Accompanied by: Family spouse Ambulatory Transportation: Own car Verify that the Contact Name and Phone Number are correct: GERI BOYKIN Condition: Alert, Oriented Skin Condition: Intact Incision: No Education/Teach Back Patient and/or Caregiver was given jiménez information in discharge instruction and able to teach back verbally or by return demonstration. Yes, demonstrated understanding Does patient have vascular access? Yes Peripheral IV Removed Does patient require assistance with outpatient visits due to cognitive limitations, mobility limitations, or has need for nursing assistance throughout the clinic day? Patient DOES NOT have an active IZABELLA flag assigned. No Wristband Removal:Patient wristband was removed and destroyed by being placed in the shred bin. When VA wristband is removed destroy the wristband by using a shredding machine, marking, or cutting the sensitive information that renders the band not readable or re-constructible to any degree. /shelly/ TRISHA KHAN RN, BSN Signed: 01/31/2024 13:03 TRISHA KHAN [facility] Jan 31, 2024 12:29 PM DISCHARGE SUMMARY: LOCAL TITLE: Discharge Summary STANDARD TITLE: DISCHARGE SUMMARY DICT DATE: JAN 31, 2024@10:41 ENTRY DATE: JAN 31, 2024@10:41:19 DICTATED BY: JULIET SMART ATTENDING: MARZENA ROSSI URGENCY: routine STATUS: COMPLETED Discharge Summary DRAFT UNTIL SIGNED BY ATTENDING Admission Date: Jan Discharge Date: Jan Discharge Destination: home PRIMARY DIAGNOSIS: # NSTEMI, now s/p PCI to LAD SECONDARY DIAGNOSES: # HTN # CKD III OPERATIVE/INVASIVE PROCEDURES: Cardiac catheterization (01/30/24) CONSULTS: None BRIEF SUMMARY OF H&P: Briefly, Mr. Geri Boykin is an 88 year old male with PMHx of HTN, CKD III, hypothyroidism, BPH, and dysphagia who presents with a 3-week history of unstable angina with elevated troponin concerning for NSTEMI. Please see full H&P for more details. HOSPITAL COURSE BY PROBLEM: # NSTEMI, now s/p PCI to LAD Presented with 3 week history of unstable angina. Stress test with inferior and apical ischemia and Q waves in inferior leads, as well as kelly-infarct ischemia. Trop 136 -> 158 (peaked). Initial EKG on arrival without acute ischemic changes, though presentation consistent with NSTEMI. TTE with LVEF 55-60%. 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 Angiogram on 01/30/24 - PCI to LAD. Started ASA 81mg (lifelong) and clopidogrel 75mg (uninterrupted for 1 year after SHAQ placement). Also started atorvastatin 40mg, metoprolol succinate 25mg daily, Imdur 30mg daily, HCTZ 25/lisinopril 20mg daily during admission. Needs cardiac rehab at discharge. # Hypertension: resumed HCTZ 25/lisinopril 20mg daily, metoprolol succinate 25mg daily during admission. # CKD III: Cr 1.3, at baseline. EXAM AT THE TIME OF DISCHARGE: Temp: 98.8 F [37.1 C] (01/11/2024 13:25) Pulse: 53 (01/11/2024 13:25) BP: 138/79 (01/11/2024 13:25) Resp: 16 (01/11/2024 13:25) O2 sat: 98% (01/11/2024 13:25) Gen: Alert, sitting comfortably, NAD HEENT: NC/AT, MMM CV: Regular rate and rhythm, no murmurs, rubs, gallops. Access site CDI without bleeding Pulm: CTAB, normal work of breathing, no crackles, wheezes GI: Soft, nontender, nondistended. Neuro: A&O, moving all extremities independently Extremities: No lower extremity edema DISCHARGE INFORMATION: Disposition on discharge, diet, physical activity, and follow-up care orders are included in the discharge orders. MEDICATION CHANGES: See the [facility] Pharm[facility] Med Instruction/Reconciliation note for a complete medication list. FOLLOW UP: Interventional Cardiology in 1 month Cardiac rehab PCP More than 30 minutes was spent on discharge management services and coordination of care for this . Juliet Smart DO Internal Medicine PGY-2 /es/ JULIET SMART RESIDENT Signed: 01/31/2024 10:43 /es/ MARZENA ROSSI M.D. STAFF SOUND RECORDING TECHNICIAN Cosigned: 02/07/2024 20:16 JULIET SMART [facility] Jan 31, 2024 12:07 PM EDUCATION DISCHARGE NOTE: LOCAL TITLE: EDUCATION NURSING DISCHARGE INSTRUCTIONS STANDARD TITLE: EDUCATION DISCHARGE NOTE DATE OF NOTE: JAN 31, 2024@12:07 ENTRY DATE: JAN 31, 2024@12:07:29 AUTHOR: TRISHA KHAN COSIGNER: URGENCY: STATUS: COMPLETED IMPORTANT PHONE NUMBERS: IF YOU HAVE A LIFE THREATENING EMERGENCY CALL 911 If you have questions about anything related to your inpatient care at the [facility] or your future care in the [facility], call the Call Center or After Hour numbers listed below. If you receive care at another [place] facility or with a community provider, you will need to call them for questions about your future care. -Call Center Tuesday-Tuesday, 7:30-4:30 at [phone] or Toll Free -After Hours- toll-free -Outpatient Pharmacy - -Verification of Appointments for the following month - *'S CRISIS LINE NUMBER IS (TALK)* Discharge from ICU, Acute Care, Acute Rehab, or CLC C-SSRS Screening [place] Suicide Severity Rating Scale (C-SSRS) screener 1. [...] required due to responses to other questions. Written education reviewed and given on: Other diagnosis/instructions: NSTEMI s/p PCI Patient and/or other caregiver has had an opportunity to participate in the development of the discharge plan. The patient had an opportunity to ask questions. While in the hospital you were treated for: NSTEMI w/ stent placement Primary Care Team: Primary Care Team: YANN CHRISTY* Primary Care Provider: SARIAH GOMES No Associate Provider Assigned. Attending Physician: MARZENA ROSSI You are being discharged to: Home Phone number you can be contacted at for the next 2 weeks: V Your diet is cardiac, heart healthy Activity: Working: No strenuous activity for 1 week Bathing: Do not scrub, soak/submerge your right wrist for 1 week When you go home you will need: Treatments: None Supplies: Medication Patient instructed to last picker medication in outpatient pharmacy Continuing care needs: If you receive care at [facility] you will need to call the Primary Care Call Center number at [phone]. If you receive care at another [place] facility or community provider, you will need to call them to arrange your follow up care. Follow up not ordered at this time. Call the Call Center if problems occur at [phone]. Future appointments: 02/21/2024 10:00 YANN THOMAS 4F INPATIENT APPOINTMENT 07/31/2024 09:20 YANN THOMASON PURPLE 2 INPATIENT APPOINTMENT 12/24/2024 09:20 YANN THOMASON RED INPATIENT APPOINTMENT A copy of these instructions has been given to: Patient IM - Immunizations ADMINISTERED Immunization Series Date Facility Reaction Info COVID-19 (MODERNA), MRNA, LNP-S,* 2 05/15/2020 [facility]* COVID-19 (MODERNA), MRNA, LNP-S,* 1 04/17/2020 [facility] INFLUENZA, HIGH-DOSE, QUADRIVALE* 01/28/2023 [place] INFLUENZA, HIGH-DOSE, QUADRIVALE* 02/13/2022 No Site <C> INFLUENZA, HIGH-DOSE, TRIVALENT,* 01/11/2024 [place] INFLUENZA, HIGH-DOSE, TRIVALENT,* 01/14/2018 [facility] INFLUENZA, HIGH-DOSE, TRIVALENT,* Local INFLUENZA, MDCK, QUADRIVALENT, PF 02/03/2017 [facility]* <C> INFLUENZA, SPLIT VIRUS, QUADRIVA* 02/04/2021 [place] INFLUENZA, SPLIT VIRUS, QUADRIVA* 01/02/2020 [place] INFLUENZA, SPLIT VIRUS, TRIVALEN* 12/23/2015 [place] INFLUENZA, SPLIT VIRUS, TRIVALEN* 03/03/2005 [facility] INFLUENZA, UNSPECIFIED FORMULATI* 01/15/2014 [place] INFLUENZA, UNSPECIFIED FORMULATI* 01/18/2013 [place] INFLUENZA, UNSPECIFIED FORMULATI* 01/04/2012 [place] INFLUENZA, UNSPECIFIED FORMULATI* 01/29/2011 [place] INFLUENZA, UNSPECIFIED FORMULATI* 01/27/2010 [place] INFLUENZA, UNSPECIFIED FORMULATI* 12/26/2008 [place] INFLUENZA, UNSPECIFIED FORMULATI* 02/15/2008 [place] INFLUENZA, UNSPECIFIED FORMULATI* 02/16/2007 [place] PNEUMOCOCCAL CONJUGATE PCV 13 12/26/2014 [place] <C> PNEUMOCOCCAL, UNSPECIFIED FORMUL* [facility]* TD (ADULT), 5 LF TETANUS TOXOID,* 01/11/2006 [facility] TD(ADULT) UNSPECIFIED FORMULATION Mariel Hedrick. TDAP 10/13/2022 [place] TDAP 01/18/2013 [place] <C> ZOSTER LIVE 01/18/2013 [place]* <C> ZOSTER RECOMBINANT 2 10/06/2018 [place] ZOSTER RECOMBINANT 1 07/28/2018 [place] CONTRAINDICATED No data available REFUSED ======= Immunization Date Facility Info COVID-19 (PFIZER), MRNA, LNP-S, * 10/13/2022 [place]* <I> COVID-19 (PFIZER), MRNA, LNP-S, * 01/11/2024 [place] <I> <C> See the Detailed Immunizations Health Summary Component[DIM] for Comments <I> See the Detailed Immunizations Health Summary Component[DIM] for Additional Information * Value is truncated; see the Detailed Immunizations Health Summary Component[DIM] for complete text Copy of PROVIDERS DISCHARGE ORDERS Discharge Order Discharge Date: Jan Discharged to: Home Discharge Type: Hospital Discharge Provider Completing Summary: Juliet Smart DO Attending Physician: Dr. Rossi Discharge Diagnosis: NSTEMI, s/p PCI to LAD Discharge Condition: Good Discharge Instructions: You were hospitalized for a myocardial infarction (heart attack). You underwent a heart catheterization during which a stent was placed into your left anterior descending coronary artery. You will need to take aspirin 81mg daily indefinitely, and clopidogrel (Plavix) 75mg daily for one year. You will also need cardiac rehab; this order will be placed for you. You should also continue the Imdur, lisinopril, atorvastatin, and metoprolol as these are new medications that were started during your hospitalization. You will need to follow up with the interventional cardiology clinic in 1 month after discharge. It was a pleasure to take care of you during this hospital stay! Discharge Order Weight Bearing Restriction: No, Bathing Restriction: No, Activity Restriction: No, Diet: low sodium, heart healthy NSAID/Aspirin Restriction (MED/Date to Resume): continue Wound Condition: Clean/Dry/Healing Oxygen Needed for Transport? No Special Transportation Needs: None /shelly/ TRISHA KHAN RN, BSN Signed: 01/31/2024 13:01 TRISHA KHAN [facility] Jan 31, 2024 07:00 AM NURSING NOTE: LOCAL TITLE: TELEMETRY AND OXIMETRY CENTRALIZED NOTE STANDARD TITLE: NURSING NOTE DATE OF NOTE: JAN 31, 2024@07:00 ENTRY DATE: JAN 31, 2024@11:36:03 AUTHOR: JOSE ASHBY EXP COSIGNER: URGENCY: STATUS: COMPLETED Telemetry (Cardiac) Monitor: Day Shift Telemetry initiation date/time: Jan@19:00. Telemetry indication: Acute Coronary Syndrome Cardiac History: HTN Cardiac rhythm interpretation: Sinus Rhythm with 1st Degree AVB HR:60 DE Int:.26 QRS Int:.10 QT Int:.36 QTc Int:.36 Telemetry leads monitored this shift: II and V lead Alarm parameters verified this shift /shelly/ JOSE ASHBY telegraph repeater mechanic Signed: 01/31/2024 11:39 JOSE ASHBY [facility] Jan 31, 2024 02:55 AM NURSING INPATIENT NOTE: LOCAL TITLE: [facility] NURSING PROGRESS NOTE STANDARD TITLE: NURSING INPATIENT NOTE DATE OF NOTE: JAN 31, 2024@02:55 ENTRY DATE: JAN 31, 2024@02:55:46 AUTHOR: MARLENA JUNG EXP COSIGNER: URGENCY: STATUS: COMPLETED SUBJECT: nursing note Nursing Shift Note Nursing care provided from nursing note Highlights from shift: Pt A&Ox4. Afebrile. HR 50's, SB with 1st degree AVB. BP 110-120's/67-70's. Sats 92-93% on RA. PIV L AC/FA. R radial angiogram site c/d/i, no numbness or tingling in extremities, no c/o's pain. R wrist foam immobilizer on. Pt up independ/ambulatory to the bathroom to void. States he anticipates discharge today. Pt able to make needs known/call light at bedside. See ICCA for detailed assessment, Education provided on medication/cares this shift as needed Skin Interventions performed this shift: Patient kept clean and dry with barrier cream applied as ordered. Head of Bed kept below 30 degrees unless otherwise ordered. /shelly/ MARLENA JUNG MACHINE I ENGRAVER RN Signed: 01/31/2024 05:57 MARLENA JUNG [facility] Jan 31, 2024 02:26 AM NURSING NOTE: LOCAL TITLE: TELEMETRY AND OXIMETRY CENTRALIZED NOTE STANDARD TITLE: NURSING NOTE DATE OF NOTE: JAN 31, 2024@02:26 ENTRY DATE: JAN 31, 2024@02:26:51 AUTHOR: BRYCE BAKER EXP COSIGNER: URGENCY: STATUS: COMPLETED Telemetry (Cardiac) Monitor: Scoop Filler Telemetry initiation date/time: Jan@19:00. Telemetry indication: Acute Coronary Syndrome Cardiac History: HTN, CKD, unstable angina with elevated troponin, Presentation c/w NSTEMI Cardiac rhythm interpretation: Sinus Bradycardia w/ 1st degree AVB HR:50 DE Int:0.263 QRS Int:0.098 QT Int:0.38 QTc Int:0.349 Telemetry leads monitored this shift: II and V lead Alarm parameters verified this shift and set at: 40-130. /shelly/ BRYCE BAKER [facility] Signed: 01/31/2024 02:27 BRYCE BAKER [facility] Jan 30, 2024 06:50 PM NURSING INPATIENT NOTE: LOCAL TITLE: [facility] NURSING PROGRESS NOTE STANDARD TITLE: NURSING INPATIENT NOTE DATE OF NOTE: JAN 30, 2024@18:50 ENTRY DATE: JAN 30, 2024@18:50:44 AUTHOR: TRISHA KHAN COSIGNER: URGENCY: STATUS: COMPLETED Nursing Shift Note Nursing care provided from [id number] Highlights from shift: Franklin alert and oriented, pleasant and cooperative with cares. 10ml total air removed from R radial TR band s/p PCI. Compliant with bedrest. Sterile gauze and tegaderm dressing applied; CDI. CMS intact. No complaints or concerns offered this shift. See ICCA for detailed assessment, Education provided on medication/cares this shift as needed Assessment Type: SKIN REINSPECTION/REASSESSMENT SKIN INSPECTION: Skin Color: Usual for ethnicity Skin Temperature: Warm Skin Moisture: Normal Skin Turgor: Elastic (normal/immediate) Salbador Skin Assessment: The patient's Salbador Scale Score is 20. The patient is considered not at risk for development of pressure ulcers/injuries. Sensory perception -- ability to respond meaningfully to pressure-related discomfort No impairment. Moisture -- degree to which skin is exposed to moisture Rarely moist. Activity -- ability to change and control body position Walks occasionally. Mobility -- ability to change and control body position No limitation. Nutrition -- usual food intake patterns Adequate. Friction and shear Potential problem. INTERVENTIONS: The pressure injury interventions were not needed - patient/resident is not at risk. RISK FACTORS THAT INCREASE RISK FOR DEVELOPING PRESSURE INJURIES: The patient/resident has the following: Age over 75 Known vascular surgery or vascular disease Device(s): (nasogastric tubes, oxygen tubing, urinary catheters, cell phone etc.) Comment: PIV, tele monitoring, cell phone, SKIN INTEGRITY: Intact Skin Interventions performed this shift: Other: able to reposition independently /es/ TRISHA KHAN RN, BSN Signed: 01/30/2024 18:55 TRISHA KHAN [facility] Jan 30, 2024 03:00 PM NURSING NOTE: LOCAL TITLE: TELEMETRY AND OXIMETRY CENTRALIZED NOTE STANDARD TITLE: NURSING NOTE DATE OF NOTE: JAN 30, 2024@15:00 ENTRY DATE: JAN 30, 2024@17:17:24 AUTHOR: PRIYANKA TUCKER EXP COSIGNER: URGENCY: STATUS: COMPLETED Telemetry (Cardiac) Monitor: RACHELE Shift Telemetry initiation date/time: Jan@19:00. Telemetry indication: Acute Coronary Syndrome Cardiac History: HTN, CKD Cardiac rhythm interpretation: SINUS AMY W/1ST DEG AVB HR:53 DE Int:0.258 QRS Int:0.093 QT Int:0.375 QTc Int:0.352 Telemetry leads monitored this shift: II and V lead Alarm parameters verified this shift /shelly/ RHYS PANCHAL Claim Technician Signed: 01/30/2024 17:18 PRIYANKA TUCKER [facility] Jan 30, 2024 08:50 AM CONSENT: LOCAL TITLE: CONSENT CLINICAL IMED STANDARD TITLE: CONSENT DATE OF NOTE: JAN 30, 2024@08:50:52 ENTRY DATE: JAN 30, 2024@08:51:15 AUTHOR: BAYRON MEJIAS EXP COSIGNER: URGENCY: STATUS: COMPLETED VistA Imaging - Scanned Document Signature Informed Consent for Heart - Cardiac Catheterization with Possible PCI (Cardiac Catheterization with Possible Percutaneous Coronary Intervention (PCI)) Hemostasis Closure Device Local Anesthesia Moderate Sedation with Analgesia - Stand Alone Procedure Pericardium - Pericardiocentesis (Pericardiocentesis) 1. Anatomical Location: wrist, groin, heart 2. Informed consent was obtained at 8:46 AM on 01/30/24. The full consent document can be accessed through [facility]. 3. Patient name: GERI BOYKIN 4. The patient HAS decision-making capacity. 5. Surrogate (if applicable): 6. Reason for the treatment (diagnosis, condition, or indication): CARDIAC CATHETERIZATION WITH POSSIBLE PERCUTANEOUS CORONARY INTERVENTION (PCI) To diagnose and treat conditions that affect your heart and coronary arteries. HEMOSTASIS CLOSURE DEVICE Bleeding after a blood vessel procedure. LOCAL ANESTHESIA Medical procedure on a small area of the body. MODERATE SEDATION WITH ANALGESIA - STAND ALONE PROCEDURE The need to manage pain or anxiety during minor surgeries or other medical procedures. PERICARDIOCENTESIS Pressure on the heart due to build-up of fluid or blood around the heart or thickening of the tissues around the heart. 7. Treatment/procedure: CARDIAC CATHETERIZATION WITH POSSIBLE PERCUTANEOUS CORONARY INTERVENTION (PCI) This procedure involves using a catheter to diagnose problems in your heart and coronary arteries. A catheter is a long, thin, flexible tube. It is inserted through your skin into a blood vessel in your leg (groin area), arm, and/or neck. It is then guided to the heart with special x-rays called fluoroscopy. Your doctor can use the catheter to do several tests on your heart and open blocked arteries, if needed. Your doctor may need to look at only one or both sides (arterial and venous sides), of your heart. To look at both sides, catheters must be placed into an artery and a vein. Your doctor may use more than one catheter to complete the test. You may be given medicine to help you relax. Your provider will put an IV (small plastic tube) into a vein. This is usually in your arm. This may be used to give you fluids or medicines during the procedure. Your vital signs will be closely monitored during this procedure. Your doctor will inject a local anesthetic to numb the area. Your doctor will then insert a needle through your skin. If necessary, your doctor may make a small incision through your skin to access the blood vessel. Your doctor will insert an introducer over the needle into the blood vessel. Your doctor will then insert a guide wire or catheter through the introducer. Your doctor will use X-ray to see and direct the catheter(s) to appropriate positions. Your doctor may use intravascular ultrasound. This uses high frequency sound waves to take pictures of your heart and arteries during the test. To evaluate the heart arteries, contrast will be injected and an x-ray movie will be taken. Pressures in the heart can also be recorded. Depending on the findings of the diagnostic tests, your doctor may perform any of the following interventions: * Thrombolysis. This involves breaking up a clot or dissolving it. Your provider may use special tools, chemicals, or a combination of methods. * Angioplasty. This involves using an inflatable balloon on the tip of the catheter. It is used to reopen a narrowing in one or more of the coronary arteries. * Stenting. A stent is a metal straw. It is placed into the vessel after angioplasty to help keep the vessel open. It remains in the wall of the artery. * Atherectomy. This involves using a specialized catheter. It is used to cut away and remove plaque from the inside of a blood vessel. * Thrombectomy. This involves using a specialized catheter with suction. It is used to remove blood clot from the inside of a blood vessel. Your doctor may close the cut or form a clot using stitches, clip, plug material, or by holding pressure to the area. This may be absorbed over time or it may remain permanently. A pressure dressing will be applied to prevent bleeding. HEMOSTASIS CLOSURE DEVICE The purpose of a hemostasis (stopping of bleeding) closure device is to quickly seal the patient's artery punctures after catheterization procedures (insertion of a long, thin tube) or after heart surgeries. The medical practitioner uses the device to improve hemostasis, allow earlier recovery, and allow earlier ambulation (walking ability) for the patient. Several types of closure devices exist. They all create a mechanical seal by sandwiching the patient's puncture site between a bioabsorbable anchor (anchor absorbed by the body over time) and a collagen sponge (sponge made of protein fibers). These devices usually dissolve in about 60 ? 90 days, giving plenty of time for healing of the site. After the patient's procedure, the medical practitioner sterilizes (makes very clean) the puncture site and the hemostasis closure device is applied. A pressure dressing, or covering that gives a downward force on the puncture site, may also be applied, if needed. The dressing is usually changed to a band-aid after about 24 hours. LOCAL ANESTHESIA Anesthesia is a loss of feeling caused by drugs. With local anesthesia, drugs cause the patient to be numb in the exact location of a minor surgery or medical procedure. It allows the patient to stay awake while preventing pain or movement in that small area of the body. It is usually given by a surgeon. A local anesthetic (drug or agent causing loss of feeling) is usually injected through a needle directly into the skin and area requiring surgery. It is normal to receive more than one injection, depending upon the size of the area and the patient's needs. Under local anesthesia the patient may feel a tugging feeling as the doctor works. Added local anesthetic is given during the procedure if the patient needs it or as the depth of surgery increases. Local anesthesia is sometimes accompanied by sedation (relaxed state caused by drugs) to help relieve any anxiety the patient may experience. Sometimes, sedation can cause the patient to sleep or block the patient's memory of the procedure. Local anesthesia usually wears off in a few hours, continuing to provide pain relief during that time. (Local Anesthesia) MODERATE SEDATION WITH ANALGESIA - STAND ALONE PROCEDURE Moderate sedation/analgesia is a drug-induced depression of consciousness in which a patient maintains the ability to respond to commands. The patient is easily roused by voice alone or voice combined with gentle touch. Breathing and cardiovascular functions are not impaired. The provider injects medications into an intravenous line (directly into a vein) to decrease anxiety and pain. The medications frequently, but not always, cause the patient to have diminished or no recall of part or all of the time period spent under moderate sedation. PERICARDIOCENTESIS This procedure is to remove fluid from around the heart to relieve pressure on the heart causing tamponade (compression), or for diagnostic purposes, or both. After a local anesthetic is applied, a needle is introduced into the sac around the heart typically with ultrasound guidance. This allows the careful placement of a flexible hollow tube into the fluid-filled space around the heart allowing it to be drained. This tube may be either removed immediately after draining the fluid from around the heart or left for a limited time to prevent its re-accumulation. 8. Moderate sedation will be used. Medications will be administered to decrease anxiety and discomfort during the treatment/procedure. These medications will be administered by a qualified practitioner. Patient response to some of these medications varies. Patients are expected to remain aware and responsive during the treatment or procedure. Minor risks of moderate sedation include temporary amnesia or forgetfulness and drowsiness. Moderate sedation can interfere with your ability to drive, operate machinery, or make important decisions for up to 24 hours. Medications used for moderate sedation can cause allergic reactions, respiratory depression (this is when your breathing slows down and may stop), low blood pressure, and a slow or irregular heart beat. In rare instances these complications can cause . Tell your health care team if you do not want to receive moderate sedation. 9. Consent to Blood Products (if applicable): I CONSENT to the use of blood products during this treatment/procedure if they are needed. I understand that the benefit of blood products is that they may improve my overall condition or save my life. I understand that my consent for use of blood products is valid while I recover from the treatment/procedure. My provider will determine when this recovery period ends. If this consent form expires, my treatment plan changes, or if blood products are needed for a reason that is unrelated to this treatment/procedure, I will be asked again for my consent for use of blood products. I understand that common risks of using blood products include (but are not limited to) infection or irritation where the needle is placed, fever, chills, and skin rashes. Other rare but more serious complications may occur such as allergic reactions, heart failure due to fluid overload, acute pulmonary edema (fluid leaking into the lungs), shock, or . I also understand that transfusions of blood or blood products involve a small risk of transmission of diseases such as Hepatitis B (1 in 137,000), Hepatitis C (1 in 1,000,000), and HIV/AIDS (1 in 1,900,000). There is also a small risk of bacterial infection when blood platelets are transfused. Alternatives to blood or blood products may be available if my health, time, and procedure permit. These alternatives may include auto-donation (using my own previously donated blood) and intra-operative salvage (my own blood collected during surgery). In addition, medications may be used to reduce the need for blood products. 10. Practitioner obtaining consent: Ash Hawthorne MD 11. Supervising practitioner: 12. Practitioner(s) performing or supervising treatment/procedure (if not listed above): 13. Witness Name(s): 14. Comments: SCANNED DOCUMENT SIGNATURE NOT REQUIRED Electronically Filed: 01/30/2024 by: BAYRON BENEDICT [facility] Jan 30, 2024 07:35 AM CARDIOLOGY INPATIENT NOTE: LOCAL TITLE: CARDIOLOGY INPT PROGRESS NOTE STANDARD TITLE: CARDIOLOGY INPATIENT NOTE DATE OF NOTE: JAN 30, 2024@07:35 ENTRY DATE: JAN 30, 2024@07:35:28 AUTHOR: BASHIR CARVAJAL COSIGNER: URGENCY: STATUS: COMPLETED INPATIENT PROGRESS NOTE CHANGES/UPDATES: - Angiogram today: PCI with SHAQ x2 to mid LAD Assessment/Plan: Mr. Boykin is an 88yo male with PMH hypertension, CKD3, hypothyroidism, BPH, dysphagia who presents with 3 weeks unstable angina with elevated troponin concerning for NSTEMI. #NSTEMI Presents with 3 weeks unstable angina. Stress test with inferior and apical ischemia with Q waves in inferior leads with some kelly-infarct ischemia. Troponin elevated to 136, peaked at 158, now downtrending. Initial EKG without acute ischemic changes. Presentation c/w NSTEMI. No prior hx CAD. TTE 01/27 with EF 55-60%. 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 S/p PCI with SHAQ x2 to mid LAD on 01/29. -Observe overnight s/p PCI -Antiplatelet: S/p ASA and Plavix loads. Start Plavix 75 mg daily for 1 year, continue daily ASA 81 lifelong -Medium intensity statin: Atorvastatin 20mg (started 01/26) -Antianginals: - BB: Start metoprolol tartrate 12.5 mg bid (01/28) - Amlodipine: N/A - Nitrates: Continue Imdur 30 mg daily (01/26) - Ranolazine: N/A - Nitroglycerin gtt: Stopped -SAVANNA: Continue lisinopril 20 mg daily (01/26). 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 -AC: Hep gtt -NSAIDS: Contraindicated -Needs cardiac rehab at discharge -A1c: 5.3% on 12/14/23 -Lipids: 12/14/23 TC 186, HDL 49, LDL 116 -Replete lytes to K>4, Mg>2 -Follow up with Interventional LEARNING ANALYST in 1 month -Chronic Problems #Hypertension -Stop AEROSPACE ASSEMBLER hctz-lisinopril -Start lisinopril 20 mg daily (01/26) -Start metoprolol 12.5 mg bid #CKD3 Baseline Cr 1.3. -BMP in am #Inpatient Care -Level of Care: Acute -Lines/Tubes/Drains: PIV -Diet/Nutrition: Cardiac -DVT Prophylaxis: Heparin gtt #Code Status: Full -Surrogate Decision Maker: #Disposition: Pending angiogram 01/29 I have discussed the patient with my attending, Dr. Rossi, who agrees with my assessment and plan. Subjective: Episode of 01/18 chest pain this morning, resolved with deep breathing. Pain worse with lying down, improves with sitting up. Otherwise hemodynamically stable, no shortness of breath, nausea, diaphoresis. A 4 point review of systems was negative, except as indicated above. Objective: Most Recent Vitals for [facility] Patients: T Max: O2 Sat: 98% (01/11/2024 13:25) HR: 53 (01/11/2024 13:25) BP: 138/79 (01/11/2024 13:25) Resp: 16 (01/11/2024 13:25) Weight: 151 lb [68.49 kg] (01/11/2024 13:25) Pain: 0 (01/28/2024 03:42) BMI: 23.7 Exam: Vitals reviewed in ICIP GA: Alert, well cooperative, not in acute distress HEENT: NCAT, PERRLA Neck: Supple, no JVD Lungs: Clear to auscutation bilaterally, no crackles or wheezes Heart: Regular rate and rhythm, normal S1 S2, no MRG Abdomen: BS positive, soft, not tender on palpation Ext: No peripheral edema, no rash Neuro: Grossly intact, no focal neurological deficit Today's Labs: JAN 30, 2024 HEPARIN APTT (01/12): 83.2 GLUCOSE: 95 UREA NITROGEN: 27 H CREATININE: 1.4 H SODIUM: 139 POTASSIUM: 4.2 CHLORIDE: 109 H CO2: 24 CALCIUM: 9.0 MAGNESIUM: 2.1 ANION GAP: 6 CREATININE EGFR (CKD-EPI): 49 L Radiology: reviewed /shelly/ BASHIR CARVAJAL RESIDENT PHYSICIAN Signed: 01/30/2024 13:02 BASHIR CARVAJAL [facility] Jan 30, 2024 07:02 AM NURSING NOTE: LOCAL TITLE: TELEMETRY AND OXIMETRY CENTRALIZED NOTE STANDARD TITLE: NURSING NOTE DATE OF NOTE: JAN 30, 2024@07:02 ENTRY DATE: JAN 30, 2024@09:12:41 AUTHOR: PRIYANKA TUCKER EXP COSIGNER: URGENCY: STATUS: COMPLETED Telemetry (Cardiac) Monitor: DAY Shift Telemetry initiation date/time: Jan@19:00. Telemetry indication: Acute Coronary Syndrome Cardiac History: HTN, CKD Cardiac rhythm interpretation: SINUS AMY W/1ST DEG AVB & PVC'S HR:48 DE Int:0.239 QRS Int:0.083 QT Int:0.395 QTc Int:0.355 Telemetry leads monitored this shift: II and V lead Alarm parameters verified this shift /shelly/ RHYS PANCHAL Claim Technician Signed: 01/30/2024 09:16 PRIYANKA TUCKER [facility] Jan 30, 2024 03:48 AM NURSING NOTE: LOCAL TITLE: TELEMETRY AND OXIMETRY CENTRALIZED NOTE STANDARD TITLE: NURSING NOTE DATE OF NOTE: JAN 30, 2024@03:48 ENTRY DATE: JAN 30, 2024@03:48:03 AUTHOR: BRYCE BAKER EXP COSIGNER: URGENCY: STATUS: COMPLETED Telemetry (Cardiac) Monitor: Scoop Filler Telemetry initiation date/time: Jan@19:00. Telemetry indication: Acute Coronary Syndrome Cardiac History: HTN, CKD, unstable angina with elevated troponin, Presentation c/w NSTEMI Cardiac rhythm interpretation: Sinus Bradycardia w/ 1st degree AVB HR:49 DE Int:0.249 QRS Int:0.083 QT Int:0.40 QTc Int:0.362 Telemetry leads monitored this shift: II and V lead Alarm parameters verified this shift and set at: 40-130. Parameter set/change by RN; during shift patient HR desats down into the 40's RN was notified during shift. /shelly/ BRYCE BAKER [facility] Signed: 01/30/2024 03:51 BRYCE BAKER [facility] Jan 30, 2024 03:04 AM NURSING INPATIENT NOTE: LOCAL TITLE: [facility] NURSING PROGRESS NOTE STANDARD TITLE: NURSING INPATIENT NOTE DATE OF NOTE: JAN 30, 2024@03:04 ENTRY DATE: JAN 30, 2024@03:04:27 AUTHOR: MARLENA JUNG EXP COSIGNER: URGENCY: STATUS: COMPLETED SUBJECT: nursing note Nursing Shift Note Nursing care provided from [id number] Highlights from shift: Pt A&Ox4. Afebrile. HR 50-60's, SB/SR with 1st degree AVB. BP 117-123/60's. Sats 93-95% on RA. Heparin gtt infusing at 400u/hour, to have recheck this am. NPO after midnight. given information booklet on angiograms to pt which he read, proc explained to pt, pt verbalized correct understanding and states he has no further questions. Pt with 1 episode of cp during the noc, resolved on its own, BP up to 185/95 at that time, back down to 150/70. See [facility] for detailed assessment, Education provided on medication/cares this shift as needed Skin Interventions performed this shift: Patient kept clean and dry with barrier cream applied as ordered. Head of Bed kept below 30 degrees unless otherwise ordered. /nolan JUNG, MACHINE I ENGRAVER RN Signed: 01/30/2024 05:38 MARLENA JUNG [facility] Jan 29, 2024 05:19 PM CRITICAL CARE UNIT NOTE: LOCAL TITLE: [facility] INPATIENT FLOWSHEET STANDARD TITLE: CRITICAL CARE UNIT NOTE DATE OF NOTE: JAN 29, 2024@17:19 ENTRY DATE: JAN 29, 2024@17:20:11 AUTHOR: HORACE GARCIA I EXP COSIGNER: URGENCY: STATUS: COMPLETED Nursing Shift Note Nursing care provided from Highlights from shift: At approx 0800 pt c/o chest pain 01/18 pt reports pain lasted approx 2 mins vitals taken 12 lead ekg done and presented to md's. Pt has been on telemetry with w 12 lead pt has been instructed to call for any chest pain but has not had any chest pain since am. Hep gtt started as ordered by md's. Pt remains alert and oriented denies nausea and vomiting with intake. VSSA monitor reveals nsr with 1 deg av block. See [facility] for detailed assessment, Education provided on medication/cares this shift as needed Skin Interventions performed this shift: Device(s) removed and skin underneath was inspected. 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 /shelly/ HORACE GACRIA RN REGISTERED NURSE Signed: 01/29/2024 17:25 HORACE GARCIA I [facility] Jan 29, 2024 03:00 PM NURSING NOTE: LOCAL TITLE: TELEMETRY AND OXIMETRY CENTRALIZED NOTE STANDARD TITLE: NURSING NOTE DATE OF NOTE: JAN 29, 2024@15:00 ENTRY DATE: JAN 29, 2024@16:37:11 AUTHOR: PRIYANKA TUCKER EXP COSIGNER: URGENCY: STATUS: COMPLETED Telemetry (Cardiac) Monitor: RACHELE Shift Telemetry initiation date/time: Jan@19:00. Telemetry indication: Acute Coronary Syndrome Cardiac History: HTN, CKD Cardiac rhythm interpretation: SINUS RHYTHM W/1ST DEG AVB HR:72 DE Int:0.229 QRS Int:0.103 QT Int:0.327 QTc Int:0.358 Telemetry leads monitored this shift: II and V lead Alarm parameters verified this shift /shelly/ RHYS PANCHAL Claim Technician Signed: 01/29/2024 16:38 PRIYANKA TUCKER [facility] Jan 29, 2024 10:24 AM CARDIOLOGY INPATIENT NOTE: LOCAL TITLE: CARDIOLOGY INPT PROGRESS NOTE STANDARD TITLE: CARDIOLOGY INPATIENT NOTE DATE OF NOTE: JAN 29, 2024@10:24 ENTRY DATE: JAN 29, 2024@10:24:52 AUTHOR: BASHIR CARVAJAL EXP COSIGNER: URGENCY: STATUS: COMPLETED INPATIENT PROGRESS NOTE CHANGES/UPDATES: - Start metoprolol tartrate 12.5 mg bid - Angiogram on Tuesday - Start nitro gtt at 10 mcg/min - Heparin gtt Assessment/Plan: Mr. Boykin is an 88yo male with PMH hypertension, CKD3, hypothyroidism, BPH, dysphagia who presents with 3 weeks unstable angina with elevated troponin concerning for NSTEMI. #NSTEMI Presents with 3 weeks unstable angina. Stress test with inferior and apical ischemia with Q waves in inferior leads with some kelly-infarct ischemia. Troponin elevated to 136, peaked at 158, now downtrending. Initial EKG without acute ischemic changes. Presentation c/w NSTEMI. No prior hx CAD. Plan for angiogram on Tuesday. TTE 01/27 with EF 55-60%. 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 -Angiogram tomorrow 01/29 -Antiplatelet: s/p ASA 325 at OSH, Daily ASA 81 -High intensity statin: Atorvastatin 40mg (started 01/26) -Antianginals: - BB: Start metoprolol tartrate 12.5 mg bid (01/28) - Amlodipine: N/A - Nitrates: Continue Imdur 30 mg daily (01/26) - Ranolazine: N/A - Nitroglycerin gtt: 10 mcg/min (01/28) -SAVANNA: Continue lisinopril 20 mg daily (01/26). 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 -AC: Hep gtt -NSAIDS: Contraindicated -Needs cardiac rehab at discharge -A1c: 5.3% on 12/14/23 -Lipids: 12/14/23 TC 186, HDL 49, LDL 116 -Replete lytes to K>4, Mg>2 -Chronic Problems #Hypertension -Stop AEROSPACE ASSEMBLER hctz-lisinopril -Start lisinopril 20 mg daily (01/26) -Start metoprolol 12.5 mg bid #CKD3 Baseline Cr 1.3. -BMP in am #Inpatient Care -Level of Care: Acute -Lines/Tubes/Drains: PIV -Diet/Nutrition: Cardiac -DVT Prophylaxis: Heparin gtt #Code Status: Full -Surrogate Decision Maker: #Disposition: Pending angiogram 01/29 I have discussed the patient with my attending, Dr. Hawthorne, who agrees with my assessment and plan. Subjective: Episode of central 01/18 chest pain this morning at around 7:30AM that lasted 2-3 minutes and resolved with deep breathing. Did not receive nitroglycerin. 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 Last episode of chest pain was the previous morning, resolved with nitro. Otherwise hemodynamically stable, no shortness of breath, nausea, diaphoresis. A 4 point review of systems was negative, except as indicated above. Objective: Most Recent Vitals for [facility] Patients: T Max: O2 Sat: 98% (01/11/2024 13:25) HR: 53 (01/11/2024 13:25) BP: 138/79 (01/11/2024 13:25) Resp: 16 (01/11/2024 13:25) I/O: Weight: 151 lb [68.49 kg] (01/11/2024 13:25) Pain: 0 (01/28/2024 03:42) BMI: 23.7 Exam: Gen: Alert, sitting comfortably, NAD HEENT: NC/AT, MMM CV: Regular rate and rhythm, no murmurs, rubs, gallops Pulm: CTAB, normal work of breathing, no crackles, wheezes GI: Soft, nontender, nondistended. Neuro: A&O, moving all extremities independently Extremities: No lower extremity edema Skin: No rash on exposed skin Psych: Mood and affect normal Today's Labs: JAN 29, 2024 GLUCOSE: 92 UREA NITROGEN: 27 H CREATININE: 1.6 H SODIUM: 140 POTASSIUM: 4.2 CHLORIDE: 110 H CO2: 25 CALCIUM: 8.8 MAGNESIUM: 2.1 ANION GAP: 5 CREATININE EGFR (CKD-EPI): 42 L Radiology: reviewed /shelly/ BASHIR CARVAJAL RESIDENT PHYSICIAN Signed: 01/29/2024 13:42 BASHIR CARVAJAL [facility] Jan 29, 2024 07:00 AM NURSING NOTE: LOCAL TITLE: TELEMETRY AND OXIMETRY CENTRALIZED NOTE STANDARD TITLE: NURSING NOTE DATE OF NOTE: JAN 29, 2024@07:00 ENTRY DATE: JAN 29, 2024@09:36:07 AUTHOR: PRIYANKA TUCKER EXP COSIGNER: URGENCY: STATUS: COMPLETED Telemetry (Cardiac) Monitor: DAY Shift Telemetry initiation date/time: Jan@19:00. Telemetry indication: Acute Coronary Syndrome Cardiac History: HTN, CKD Cardiac rhythm interpretation: SINUS AMY W/1ST DEG AVB HR:57 DE Int:0.229 QRS Int:0.083 QT Int:0.375 QTc Int:0.365 Telemetry leads monitored this shift: II and V lead Alarm parameters verified this shift /shelly/ RHYS PANCHAL Claim Technician Signed: 01/29/2024 09:38 PRIYANKA TUCKER [facility] Jan 29, 2024 01:36 AM NURSING INPATIENT NOTE: LOCAL TITLE: [facility] NURSING PROGRESS NOTE STANDARD TITLE: NURSING INPATIENT NOTE DATE OF NOTE: JAN 29, 2024@01:36 ENTRY DATE: JAN 29, 2024@01:36:25 AUTHOR: MARLENA JUNG EXP COSIGNER: URGENCY: STATUS: COMPLETED SUBJECT: nursing note Nursing Shift Note Nursing care provided from Highlights from shift: Pt A&Ox4. Afebrile. HR 48-68, SB/1st degree AVB. BP 109-110/59-63. Sats 93-96% on RA. L AC SL dormant, flushed. Up ambulatory to the bathroom, denies any c/o chest pain, no SOB. Pt knows to let nurse know of any cp. Awaiting angiogram Tuesday. Pt instructed on angiogram. Had BM overnight. AM labs sent. See [facility] for detailed assessment, Education provided on medication/cares this shift as needed Skin Interventions performed this shift: Patient's heels elevated with pressure relief boots or pillows under calves. Device(s) removed and skin underneath was inspected. /shelly/ MARLENA JUNG MACHINE I ENGRAVER RN Signed: 01/29/2024 06:50 MARLENA JUNG [facility] Jan 28, 2024 11:35 PM NURSING NOTE: LOCAL TITLE: TELEMETRY AND OXIMETRY CENTRALIZED NOTE STANDARD TITLE: NURSING NOTE DATE OF NOTE: JAN 28, 2024@23:35 ENTRY DATE: JAN 29, 2024@01:11:05 AUTHOR: RENA DRAKE EXP COSIGNER: URGENCY: STATUS: COMPLETED Telemetry (Cardiac) Monitor: Scoop Filler Telemetry initiation date/time: Jan@19:00. Telemetry indication: Acute Coronary Syndrome Cardiac History: HTN, CKD Cardiac rhythm interpretation: SINUS BRADYCARDIA w/ 1st degree AVB HR:52 DE Int:.244 QRS Int:.093 QT Int:.38 QTc Int:.354 Telemetry leads monitored this shift: II and V lead Alarm parameters verified this shift /shelly/ RENA DRAKE Claim Technician Signed: 01/29/2024 01:11 RENA DRAKE [facility] Jan 28, 2024 06:48 PM NURSING INPATIENT NOTE: LOCAL TITLE: [facility] NURSING PROGRESS NOTE STANDARD TITLE: NURSING INPATIENT NOTE DATE OF NOTE: JAN 28, 2024@18:48 ENTRY DATE: JAN 28, 2024@18:48:39 AUTHOR: HORACE GARCIA I EXP COSIGNER: URGENCY: STATUS: COMPLETED Nursing Shift Note Nursing care provided from Highlights from shift: Vitals baseline pt hr 50-60's pt reports always having low hr. Pt denied chest pain walked in [place] gait steady and strong be denies sob or chest pain with walking. Pt eating well voiding per eulalia. Pt had received echo bedside per his report. Pt offered no complaints and is pleasent to work with. See [facility] for detailed assessment, Education provided on medication/cares this shift as needed Skin Interventions performed this shift: Device(s) removed and skin underneath was inspected. /shelly/ HORACE GARCIA RN REGISTERED NURSE Signed: 01/28/2024 18:52 HORACE GARCIA I [facility] Jan 28, 2024 04:34 PM CARDIOLOGY INPATIENT NOTE: LOCAL TITLE: CARDIOLOGY INPT PROGRESS NOTE STANDARD TITLE: CARDIOLOGY INPATIENT NOTE DATE OF NOTE: JAN 28, 2024@16:34 ENTRY DATE: JAN 28, 2024@16:34:14 AUTHOR: BASHIR CARVAJAL EXP COSIGNER: URGENCY: STATUS: COMPLETED INPATIENT PROGRESS NOTE CHANGES/UPDATES: - TTE today - Angiogram on Tuesday Assessment/Plan: Mr. Boykin is an 88yo male with PMH hypertension, CKD3, hypothyroidism, BPH, dysphagia who presents with 3 weeks unstable angina with elevated troponin concerning for NSTEMI. #NSTEMI Presents with 3 weeks unstable angina. Stress test with inferior and apical ischemia with Q waves in inferior leads with some kelly-infarct ischemia. Troponin elevated to 136, peaked at 158, now downtrending. EKG without acute ischemic changes. Presentation c/w NSTEMI. No prior hx CAD. Plan for angiogram on Tuesday. -TTE today -Antiplatelet : s/p ASA 325 at OSH, Daily ASA 81 -Start High intensity statin: Atorvastatin 40mg - Antianginals: - BB: none - Amlodipine: N/A - Nitrates: Continue Imdur 30 mg daily (01/26) - Ranolazine: N/A - Nitroglycerin gtt: N/A (No current CP) -SAVANNA: Continue lisinopril 20 mg daily (01/26). 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 -AC: D/c Hep gtt -NSAIDS: Contraindicated -Plan for angiogram on Monday 01/29 -Needs cardiac rehab at discharge -A1c: 5.3% on 12/14/23 -Lipids: 12/14/23 TC 186, HDL 49, LDL 116 -Replete lytes to K>4, Mg>2 -Chronic Problems #Hypertension -Stop AEROSPACE ASSEMBLER hctz-lisinopril -Start lisinopril 20 mg daily #CKD3 Baseline Cr 1.3. -BMP in am #Inpatient Care -Level of Care: Acute -Lines/Tubes/Drains: PIV -Diet/Nutrition: Cardiac -DVT Prophylaxis: Heparin gtt #Code Status: Full -Surrogate Decision Maker: #Disposition: Pending angiogram 01/29 I have discussed the patient with my attending, Dr. Hawthorne, who agrees with my assessment and plan. Subjective: Episode of central chest pain overnight that resolved with nitroglycerin. EKG without acute ischemic change, troponins downtrending. Otherwise hemodynamically stable, no shortness of breath, nausea, diaphoresis. A 4 point review of systems was negative, except as indicated above. Objective: Most Recent Vitals for [facility] Patients: T Max: O2 Sat: 98% (01/11/2024 13:25) HR: 53 (01/11/2024 13:25) BP: 138/79 (01/11/2024 13:25) Resp: 16 (01/11/2024 13:25) I/O: Weight: 151 lb [68.49 kg] (01/11/2024 13:25) Pain: 0 (01/28/2024 03:42) BMI: 23.7 Exam: GA: Alert, well cooperative, not in acute distress HEENT: NCAT, PERRLA Neck: Supple, no JVD Lungs: Clear to auscutation bilaterally, no crackles or wheezes Heart: Regular rate and rhythm, normal S1 S2, no MRG Abdomen: BS positive, soft, not tender on palpation Ext: No peripheral edema, no rash Neuro: Grossly intact, no focal neurological deficit Today's Labs: JAN 28, 2024 EXTRA PURPLE TUBE: RECEIVED TROPONIN, HIGH SENSITIVITY: 128 H* GLUCOSE: 92 UREA NITROGEN: 28 H CREATININE: 1.4 H SODIUM: 140 POTASSIUM: 4.4 CHLORIDE: 109 H CO2: 23 CALCIUM: 8.8 ALBUMIN: 3.5 MAGNESIUM: 2.1 ANION GAP: 8 CREATININE EGFR (CKD-EPI): 49 L COVID-19 CEPHEID: Not Detected TROPONIN, HIGH SENSITIVITY: 158 H* HEPARIN APTT (01/12): 133.9 H* Radiology: reviewed /shelly/ BASHIR CARVAJAL RESIDENT PHYSICIAN Signed: 01/28/2024 16:41 BASHIR CARVAJAL [facility] Jan 28, 2024 03:00 PM NURSING NOTE: LOCAL TITLE: TELEMETRY AND OXIMETRY CENTRALIZED NOTE STANDARD TITLE: NURSING NOTE DATE OF NOTE: JAN 28, 2024@15:00 ENTRY DATE: JAN 28, 2024@16:30:18 AUTHOR: PRIYANKA TUCKER EXP COSIGNER: URGENCY: STATUS: COMPLETED Telemetry (Cardiac) Monitor: RACHELE Shift Telemetry initiation date/time: Jan@19:00. Telemetry indication: Acute Coronary Syndrome Cardiac History: HTN, CKD Cardiac rhythm interpretation: SINUS RHYTHM HR:78 DE Int:0.2 QRS Int:0.095 QT Int:0.367 QTc Int:0.418 Telemetry leads monitored this shift: II and V lead Alarm parameters verified this shift /shelly/ RHYS PANCHAL Claim Technician Signed: 01/28/2024 16:31 PRIYANKA TUCKER [facility] Jan 28, 2024 07:00 AM NURSING NOTE: LOCAL TITLE: TELEMETRY AND OXIMETRY CENTRALIZED NOTE STANDARD TITLE: NURSING NOTE DATE OF NOTE: JAN 28, 2024@07:00 ENTRY DATE: JAN 28, 2024@10:40:51 AUTHOR: PRIYANKA TUCKER EXP COSIGNER: URGENCY: STATUS: COMPLETED Telemetry (Cardiac) Monitor: DAY Shift Telemetry initiation date/time: Jan@19:00. Telemetry indication: Acute Coronary Syndrome Cardiac History: HTN, CKD Cardiac rhythm interpretation: SINUS AMY W/1ST DEG AVB HR:55 DE Int:0.239 QRS Int:0.093 QT Int:0.463 QTc Int:0.444 Telemetry leads monitored this shift: II and V lead Alarm parameters verified this shift /shelly/ RHYS PANCHAL Claim Technician Signed: 01/28/2024 10:42 PRIYANKA TUCKER [facility] Jan 28, 2024 02:25 AM NURSING INPATIENT NOTE: LOCAL TITLE: [facility] NURSING PROGRESS NOTE STANDARD TITLE: NURSING INPATIENT NOTE DATE OF NOTE: JAN 28, 2024@02:25 ENTRY DATE: JAN 28, 2024@02:25:51 AUTHOR: MARLENA JUNG EXP COSIGNER: URGENCY: STATUS: COMPLETED SUBJECT: nursing note Nursing Shift Note Nursing care provided from [id number] Highlights from shift: Pt A&Ox4. Afebrile. HR 56-65, SB/SR with 1st degree AVB. BP 108-111/56-67. Sats 93-95% on RA. heparin gtt infusing at 700u/hour, to have recheck with am labs. Covid swab neg. 2100 troponin 145, 158 and . Pt given additional 60 mEq KCL on pm's. Pt denies any c/o's SOB, instructed to let nurse know of any CP/SOB. Pt up to the bathroom independ. Pt c/o 7/10 chest pain at 0325, states he was sleeping when it woke him up. Given 1 SL ntg and pain was resolved. Pt states pain was not worse with pushing on chest or with a deep breath. EKGs done, FLOTATION OPERATOR and MD updated on pt having cp. BP's during/after cp episode: 163/79, 129/74 and 98/60. See ICCA for detailed assessment, Education provided on medication/cares this shift as needed Skin Interventions performed this shift: Patient kept clean and dry with barrier cream applied as ordered. Head of Bed kept below 30 degrees unless otherwise ordered. /shelly/ MARLENA JUNG, MACHINE I ENGRAVER RN Signed: 01/28/2024 05:00 MARLENA JUNG [facility] Jan 27, 2024 11:16 PM NURSING NOTE: LOCAL TITLE: TELEMETRY AND OXIMETRY CENTRALIZED NOTE STANDARD TITLE: NURSING NOTE DATE OF NOTE: JAN 27, 2024@23:16 ENTRY DATE: JAN 28, 2024@01:22:21 AUTHOR: RENA DRAKE EXP COSIGNER: URGENCY: STATUS: COMPLETED Telemetry (Cardiac) Monitor: Scoop Filler Telemetry initiation date/time: Jan@19:00. Telemetry indication: Acute Coronary Syndrome Cardiac History: HTN, CKD Cardiac rhythm interpretation: SINUS BRADYCARDIA w/ 1st degree AVB HR:48 DE Int:.234 QRS Int:.083 QT Int:.458 QTc Int:.409 Telemetry leads monitored this shift: II and V lead Alarm parameters verified this shift Alarm parameters modified from default settings: 50 to 130 as directed by nursing /shelly/ RENA DRAKE Claim Technician Signed: 01/28/2024 01:23 RENA DRAKE [facility] Jan 27, 2024 08:33 PM H & P NOTE: LOCAL TITLE: H&P HISTORY & PHYSICAL - MEDICINE STANDARD TITLE: H & P NOTE DATE OF NOTE: JAN 27, 2024@20:33 ENTRY DATE: JAN 27, 2024@20:33:51 AUTHOR: BASHIR CARVAJAL EXP COSIGNER: URGENCY: STATUS: COMPLETED MEDICINE HISTORY & PHYSICAL Chief Complaint: Chest pain History of Present Illness (HPI) - 88 years old MALE admitted for: Mr. Boykin is an 88yo male with PMH hypertension, CKD3, hypothyroidism, BPH, dysphagia who presents with 3 weeks of exertional chest pain. Patient reports episodes of chest tightness with minimal exertion that resolve with rest. Pain initially improved with deep breathing or belching, but over the past week this has not helped. Occasionally gets chest pain while at rest as well. No associated nausea, diaphoresis. No prior hx of CAD. Only med is hctz-lisinopril. Patient was seen for this concern in medicine clinic 12/14/23. Nuclear stress test was ordered which was notable for inferior and apical ischemia with Q waves in inferior leads with some kelly-infarct ischemia. He then presented to ED in [place] with chest pain and was found to have no new EKG changes however troponin was elevated to 0.18. Was started on heparin drip, loaded with aspirin, and transferred to [facility] for coronary angiogram. On arrival, he was chest pain-free. Blood pressure 140/80, heart rate 50s, satting well on room air. EKG without acute ischemic changes. Labs notable for troponin 136, K 3.4, Cr 1.3. Past Medical History: Active problems - Computerized Problem List is the source for the followin. Hydrocele Nos 2. Cataract, Senile, Unsp 3. Hypertension (SNOMED CT 67822989) 4. Hypothyroidism (SNOMED CT 91258090) 5. Hyperlipidemia 6. Hypermetropia/Hyperopia 7. Astigmatism, Unspec 8. Presbyopia 9. Benign prostatic hyperplasia 10. Chronic kidney disease stage 3 11. Actinic keratosis 12. Dysphagia 13. Allergic rhinitis 14. Basal cell carcinoma of skin 15. Pain of left shoulder joint 16. Basal cell carcinoma of neck - 11/19/2022 Past Surgical History: Reviewed Family History: Reviewed Social History: 1. Tobacco - Former, 1ppd for 35 years, quit 30 years ago 2. Alcohol - 1 beer/day 3. Illicit Drug Use - None 4. Living Situation - [place] with [place] Allergies:Patient has answered NKA Review of System: Otherwise negative except as noted in HPI Physical Exam: Temp: 98.8 F [37.1 C] (01/11/2024 13:25) Pulse:53 (01/11/2024 13:25) BP: 138/79 (01/11/2024 13:25) Resp: 16 (01/11/2024 13:25) Weight: 151 lb [68.49 kg] (01/11/2024 13:25) Pain: 0 (01/11/2024 13:25) O2 Sat: 98% (01/11/2024:) BMI: 23.7 Gen: Alert, sitting comfortably, NAD HEENT: NC/AT, MMM CV: Regular rate and rhythm, no murmurs, rubs, gallops Pulm: CTAB, normal work of breathing, no crackles, wheezes GI: Soft, nontender, nondistended. Neuro: A&O, moving all extremities independently Extremities: No lower extremity edema Skin: No rash on exposed skin Psych: Mood and affect normal Labs: - INR: INR - NONE FOUND - Complete Blood Count White count: WBC 6.0 (01/27/24) Hemoglobin: HGB 12.1 L (01/27/24) Hematocrit: HCT 36.5 L (01/27/24) Platelets: PLT 177 (01/27/24) - Complete Metabolic Panel SODIUM 142 (01/27/24) POTASSIUM 3.4 L (01/27/24) CHLORIDE 106 (01/27/24) CO2 27 (01/27/24) UREA NITROGEN 30 H (01/27/24) CREATININE 1.3 H (01/27/24) GLUCOSE 141 H (01/27/24) CALCIUM 8.8 (01/27/24) MAGNESIUM 2.2 (01/27/24) EGFR (11/12) 01/02/2020@0732 49 L CREATININE EGFR (CKD-EPI) 01/27/2024@1852 54 L AST/SGOT 24 (12/14/23) ALT/SGPT 12 (12/14/23) ALK PHOSPHATASE 67 (12/14/23) ALBUMIN 4.2 (12/14/23) BILIRUBIN, TOTAL 0.6 (12/14/23) Active and Recently Inpatient Medications (including Supplies): Active Inpatient Medications Status 1) ACETAMINOPHEN (INPT) TAB 650MG PO Q4H PRN FOR PAIN: ACTIVE MAX DOSE of acetaminophen is 4000mg in 24 hours 2) ATORVASTATIN TAB 40MG PO QDAY ACTIVE 3) BISACODYL TAB,EC 5MG PO QDAY PRN FOR CONSTIPATION ACTIVE 4) HEPARIN INFUSION INJ,SOLN in HEPARIN 25930 UNT IN ACTIVE D5W 500 ML TITRATE*CONC = 50 UNITS/ML@0 Rate: See nursing text order LOW INTENSITY PROTOCOL IV 5) ISOSORBIDE MONONITRATE TAB,SA 30MG PO QDAY ACTIVE 6) LISINOPRIL TAB 20MG PO QDAY ACTIVE 7) NITROGLYCERIN TAB,SUBLINGUAL 0.4MG SL Q5MIN X3 PRN ACTIVE For chest pain. May repeat every 5 minutes. Call attending or POD if chest pain is not resolved after first dose. 8) POLYETHYLENE GLYCOL 3350 POWDER,ORAL 17 GM PKT PO ACTIVE QDAY PRN FOR CONSTIPATION. MIX IN JUICE OR WATER. 9) PROCHLORPERAZINE TAB 5MG PO Q6H PRN FOR NAUSEA ACTIVE 10) SALINE FLUSH INJ 10ML IV Q8H AFTER EACH USE, MINIMUM ACTIVE OF EVERY SHIFT. No Active Remote Medications for this patient Imaging Reviewed Assessment/Plan: Mr. Boykin is an 88yo male with PMH hypertension, CKD3, hypothyroidism, BPH, dysphagia who presents with 3 weeks unstable angina with elevated troponin concerning for NSTEMI. #NSTEMI Presents with 3 weeks unstable angina. Stress test with inferior and apical ischemia with Q waves in inferior leads with some kelly-infarct ischemia. Troponin elevated to 136, EKG without acute ischemic changes. No chest pain during admission. No prior hx CAD. Plan for angiogram. -Trend troponin until downtrending -TTE in am -Antiplatelet : s/p ASA 325 at OSH, Daily ASA 81 -Start High intensity statin: Atorvastatin 40mg - Antianginals: - BB: none - Amlodipine: N/A - Nitrates: Start Imdur 30 mg daily - Ranolazine: N/A - Nitroglycerin gtt: N/A (No current CP) -SAVANNA: Start lisinopril 20 mg daily. 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 -AC: Hep gtt. Stop once troponins downtrending. -NSAIDS: Contraindicated -Plan for angiogram on Sunday 01/28 -Needs cardiac rehab at discharge -A1c: 5.3% on 12/14/23 -Lipids: 12/14/23 TC 186, HDL 49, LDL 116 -Replete lytes to K>4, Mg>2 #Hypertension -Stop [employer]PACE ASSEMBLER hctz-lisinopril -Start lisinopril 20 mg daily #CKD3 Baseline Cr 1.3. -BMP in am Fluids/Electrolytes/Nutritio n (FEN): Cardiac Deep Vein Thrombosis (DVT) Prophylaxis: Heparin gtt Code Status: Full code Disposition: Pending angiogram 01/28 I have seen and discussed the patient with my attending, Dr. Hawthorne, who agrees with the above assessment and plan. Additional Secondary Diagnoses /shelly/ BASHIR CARVAJAL RESIDENT PHYSICIAN Signed: 01/27/2024 21:00 BASHIR CARVAJAL [facility] Jan 27, 2024 07:35 PM NURSING NOTE: LOCAL TITLE: TELEMETRY AND OXIMETRY CENTRALIZED NOTE STANDARD TITLE: NURSING NOTE DATE OF NOTE: JAN 27, 2024@19:35 ENTRY DATE: JAN 27, 2024@20:02:31 AUTHOR: RENA DRAKE EXP COSIGNER: URGENCY: STATUS: COMPLETED Telemetry (Cardiac) Monitor: Admit/Scoop Filler Telemetry initiation date/time: Jan@19:00. Telemetry indication: Acute Coronary Syndrome Cardiac History: HTN, CKD Cardiac rhythm interpretation: SINUS BRADYCARDIA w/ 1st degree AVB HR:55 DE Int:.234 QRS Int:.098 QT Int:.346 QTc Int:.331 Telemetry leads monitored this shift: II and V lead Alarm parameters verified this shift Alarm parameters modified from default settings: 50 to 130 as directed by nursing /shelly/ RENA DRAKE Claim Technician Signed: 01/27/2024 20:04 RENA DRAKE [facility] Jan 27, 2024 06:46 PM PHARMACY MEDICATION MGT NOTE: LOCAL TITLE: DRUG RECONCILIATION ON ADMIT STANDARD TITLE: PHARMACY MEDICATION MGT NOTE DATE OF NOTE: JAN 27, 2024@18:46 ENTRY DATE: JAN 27, 2024@18:46:15 AUTHOR: JULIETA OSULLIVAN EXP COSIGNER: URGENCY: STATUS: COMPLETED PHARMACY MEDICATION HISTORY NOTE ==== Medication & allergy history was compiled by pharmacy to assist providers ordering inpatient medications. Essential med list includes active local & remote VA rxs, non-VA meds, recently rxs within last 180 days, recently discontinued rxs within last 90 days, clinic med orders, pending med orders, & inpatient med orders. Current active & pending inpatient med orders will be reviewed to complete medication reconciliation. With the exception of allergies, if a category is not listed below, there were no relevant meds for the patient. See [facility] Emergency Department documentation for medications given during emergency department visit. Seasonal Influenza Immunization: INFLUENZA, HIGH-DOSE, TRIVALENT,* 01/11/2024 [place]* INTERVIEW Patient and/or caregiver has been INTERVIEWED by pharmacy. Patient reports that he transferred here from [facility]. Allergies: FACILITY ALLERGY/ADR -------- [facility] NO KNOWN ALLERGIES [facility] No Known Allergies [facility] NO KNOWN ALLERGIES Patient reports last scheduled medication(s) were taken prior to admit this AM Tobacco use within the last 30 days No Drug Last Refills Qty Filled Remaining ---- --- ------ --------- CALCIPOTRIENE 0.005% TOP CREAM 60 01/08/2024 (0) APPLY THIN LAYER TOPICALLY BID FOR ROUGH, SCALY SKIN PATCHES MIX WITH EQUAL AMOUNT OF FLUOROURACIL CREAM AND APPLY TO DESIGNATED AREA(S). USE FOR 4-7 DAYS DIRECTED. WAIT UNTIL FEBRUARY WHEN SPOTS ARE HEALED FROM LIQUID NITROGEN TREATMENT IN CLINIC. KEEP OUT OF REACH OF KIDS/PETS. DO NOT APPLY TO NOSE, EYES, MOUTH. Indication: FOR ROUGH, SCALY SKIN PATCHES *Patient reports no longer taking FLUOROURACIL 5% CREAM 40 01/08/2024 (0) APPLY PEA SIZED AMOUNTS SMOOTHED TO A THIN LAYER TOPICALLY TWICE A DAY FOR ROUGH, SCALY SKIN PATCHES MIX WITH EQUAL AMOUNT OF CALCIPOTRIENE CREAM AND APPLY TO DESIGNATED AREA(S) ON FACE. USE FOR 4-7 DAYS DIRECTED. WAIT UNTIL FEBRUARY WHEN SPOTS ARE HEALED FROM LIQUID NITROGEN TREATMENT IN CLINIC. Indication: FOR ROUGH, SCALY SKIN PATCHES *Patient reports no longer taking HCTZ 25/LISINOPRIL 20MG TAB 90 12/29/2023 (1) 1 QAM FOR BLOOD PRESSURE. *Patient reports this is on hold until February due to recent facial freezing treatment. 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 However, unable to locate any documentation to support the plan to hold this medication. NITROGLYCERIN 0.4MG SL TAB 100 01/11/2024 (0) DISSOLVE ONE UNDER THE TONGUE EVERY 5 MINUTES FOR UP TO 3 DOSES IF NEEDED FOR CHEST PAIN *Patient reports he has not used this, but he keeps it on hand POLYETHYLENE GLYCOL 3350 ORAL PWDR 510 12/14/2023 (11) 17 GRAMS QDAY PRN FOR CONSTIPATION *Patient reports no longer using SILVER SULFADIAZINE 1% CREAM 50 10/12/2023 (3) APPLY TO AFFECTED AREA TOPICALLY BID PRN FOR IRRITATED SKIN *Patient reports no longer using The following are Non-VA medications MULTI/MINERAL/ANTIOXIDANT TAB ASPIRIN 81MG EC TAB 81MG EVERY DAY Statement/Explanation/Commen t: Non-VA medication recommended by VA provider. Meclizine (Antivert) 25 mg tablet Tk 1 t PO TID prn for dizziness or nausea *Patient reports no longer using Vasoline Apply to scaly skin patches BID Recently discontinued prescriptions: Not applicable Consider the following inpatient medications when reviewing list above to complete medication reconciliation: Active Inpatient Medications (including Supplies): Active Inpatient Medications Status 1) ACETAMINOPHEN (INPT) TAB 650MG PO Q4H PRN FOR PAIN: ACTIVE MAX DOSE of acetaminophen is 4000mg in 24 hours 2) BISACODYL TAB,EC 5MG PO QDAY PRN FOR CONSTIPATION ACTIVE 3) HEPARIN INFUSION INJ,SOLN in HEPARIN 95271 UNT IN ACTIVE D5W 500 ML TITRATE*CONC = 50 UNITS/ML@0 Rate: See nursing text order LOW INTENSITY PROTOCOL IV 4) NITROGLYCERIN TAB,SUBLINGUAL 0.4MG SL Q5MIN X3 PRN ACTIVE For chest pain. May repeat every 5 minutes. Call attending or POD if chest pain is not resolved after first dose. 5) POLYETHYLENE GLYCOL 3350 POWDER,ORAL 17 GM PKT PO ACTIVE QDAY PRN FOR CONSTIPATION. MIX IN JUICE OR WATER. 6) PROCHLORPERAZINE TAB 5MG PO Q6H PRN FOR NAUSEA ACTIVE 7) SALINE FLUSH INJ 10ML IV Q8H AFTER EACH USE, MINIMUM ACTIVE OF EVERY SHIFT. Pending Inpatient Medications Status 1) ATORVASTATIN TAB 40MG PO QDAY PENDING 2) ISOSORBIDE MONONITRATE TAB,SA 30MG PO QDAY PENDING 3) LISINOPRIL TAB 20MG PO QDAY PENDING 10 Total Medications /es/ JULIETA OSULLIVAN ARTIFICIAL STONE APPLICATOR Signed: 01/27/2024 19:48 Receipt Acknowledged By: 01/27/2024 20:31 /es/ COREY MASSEY Pharmacist 01/27/2024 20:08 /es/ Natalie Ordoñez, SameerD, [facility] PHARMACIST 01/29/2024 11:04 /es/ BASHIR CRAVAJAL RESIDENT PHYSICIAN JULIETA OSULLIVAN [facility] Jan 27, 2024 04:51 PM TREATMENT PLAN INTERDISCIPLINARY NOTE: LOCAL TITLE: ITP INTERDISCIPLINARY TREATMENT PLAN STANDARD TITLE: TREATMENT PLAN INTERDISCIPLINARY NOTE DATE OF NOTE: JAN 27, 2024@16:51 ENTRY DATE: JAN 27, 2024@16:51:55 AUTHOR: HORACE GARCIA I EXP COSIGNER: URGENCY: STATUS: COMPLETED Interdisciplinary Treatment Plan (ITP) Date of current Admission: Jan Medical problems to be addressed, including reason for admission as well as all active medical problems: 1. nstemi At risk indicators at time of admission: None Support services in community: Current living situation: Lives with others (indicate who in comments) Patient/Family input to care: and pt Patient Goals:optimize heart function and return home. Treatment plan/Interventions: Encourage activity as tolerated., Assess patients'coordination/balanc e before assisting with transfer/mobility. Instruct patient to notify nurse immediately when chest pain occurs. Assess and document patient response/effects of medication / Monitor VS Identify precipitating event, if any; frequency, duration, intensity, and location of pain. Observe for associated symptoms, e.g., dyspnea, nausea/vomiting, dizziness, palpitations, desire to micturate. /Lung sounds Evaluate reports of pain in jaw, neck, shoulder, arm, or hand (typically on left side). Place patient at complete rest during anginal episodes. Elevate head of bed if patient is short of breath. Monitor heart rate/rhythm / code enforcement officer vital signs every 5 min during initial anginal attack. Stay with patient who is experiencing pain or appears anxious. Provide supplemental oxygen as indicated. Administer antianginal medication(s) promptly as indicated: .Encourage immediate reporting of pain for prompt administration of medications as indicated. Assess for signs and symptoms of heart failure. Evaluate mental status, noting development of confusion, disorientation. Note skin color and presence/quality of pulses.. Prepare for transfer to critical care unit if condition warrants. Measurable Outcomes: Patient will verablize understanding of the 0-10 pain scale., Patient will deny pain or report that pain is managed at an acceptable level., Patient will not fall during hospitalization., Skin will remain intact/or no further breakdown., Patient will be afebrile and without signs or symptoms of infection. Patient will report anginal episodes decreased in frequency, duration, and severity. Patient will demonstrate relief of pain as evidenced by stable vital signs, absence of muscle tension and restlessness Patient will report/display decreased episodes of dyspnea, angina, and dysrhythmias. Patient will demonstrate increased activity tolerance. Discharge Plan: Patient will return home. Anticipated resources needed for discharge: No anticipated resources needed at this time. Anticipated educational needs: Tests/treatments/procedures: risks and benefits, disease process, medication management, and discharge instructions. Participants: rn,md,and pharmacy Transportation needs: family will provide ride home per pt report. Plan of care shared with patient/family and verbalized with understanding. /shelly/ HORACE GARCIA RN REGISTERED NURSE Signed: 01/27/2024 16:54 HORACE GARCIA I [facility] Jan 27, 2024 04:46 PM NURSING ADMISSION EVALUATION NOTE: LOCAL TITLE: [facility] ACUTE INPATIENT NSG ADMISSION SCREEN STANDARD TITLE: NURSING ADMISSION EVALUATION NOTE DATE OF NOTE: JAN 27, 2024@16:46 ENTRY DATE: JAN 27, 2024@16:46:53 AUTHOR: HORACE GARCIA I EXP COSIGNER: URGENCY: STATUS: COMPLETED ===== ALLERGY/ADVERSE DRUG REACTION (ADR) REVIEW (MRT5) ===== FACILITY ALLERGY/ADR -------- Lindsey [facility] NO KNOWN ALLERGIES [facility] No Known Allergies [facility] NO KNOWN ALLERGIES Allergy/Adverse Drug Reaction Review to be conducted by: Other: Allergy review by: pharmacy ==== MEDICATION REVIEW (MRR1) ==== Did patient bring medication(s) from home? No Medication Review to be conducted by pharmacy ==== GENERAL INFORMATION ==== Admission information given by: Patient Is there a legal guardian/conservator? No Preferred language for discussing healthcare: [place]ian Preferred mode of communication: Verbal Items at Bedside: Other: change of clothes, ===== INFECTIOUS DISEASE RISK SCREEN ===== Travel Screen: Have you traveled within the [place] within the last 21 days? No Have you traveled outside the [place] within the last 21 days? No Within the last 14 days, have you had: No known exposure Other Exposure to Infectious Disease: No known exposure Patient reported the following symptoms: No Symptoms Present History of Multiple Drug Resistant Organism (MDRO): No ===== NUTRITION SCREENING ===== Malnutrition Screening Lost weight recently without trying: No (0 points) Have you been eating poorly because of decreased appetite? No (0 points) Total Score: 0 Other Nutrition Screening Questions: The patient does not report any concerns with their teeth that would make it difficult to eat. The patient does not report overeating to the point of feeling sick or making themselves vomit. The patient denies gaining 10 lbs.(4.5 kgs) or more in the past 3 months without trying. The patient denies having any food allergies, intolerance, special dietary needs, or ethnic, cultural or oriental orthodox preferences that would affect their dietary needs. Food Insecurity Screening Within the past 12 months, you worried whether your food would run out before you got money to buy more. Never true Within the past 12 months, the food you bought just did not last you and you did not have the money to get more. Never true Food Insecurity Disposition: ==== RISK SCREENINGS ==== Alcohol Screen: Screen to be completed by: Nurse: SCREEN FOR ALCOHOL (AUDIT-C) An alcohol screening [...] one occasion in the past year? Never *Does the patient consume alcohol? No Tobacco Use: Never - tobacco user Do you currently or have you ever used alternative nicotine products? No Substance Use Assessment: *Do you use any recreational drugs or narcotics (prescription or non-prescription)? No ===== RISK OF WANDERING ===== The patient does not have a history of wandering. The patient does not have a history of elopement. The patient is not expressing a desire to leave. === SUICIDE SCREEN === [place] Suicide Severity Rating Scale (C-SSRS) 1. Over the past month, have you [...] required due to responses to other questions. C-SSRS Screen is Negative ==== EXPOSURE TO VIOLENCE AND ABUSE PRE-SCREEN ==== Are you worried for your safety, that you will be hurt or harmed? No Has anyone tried to force you to sign papers or use your money against your will? No ==== POST TRAUMATIC STRESS DISORDER CARE CONSIDERATIONS ==== To minimize a startle response, what is your preference on how best to awaken you? No preference ===== REPRODUCTIVE & SEXUAL HEALTH ===== Do you have any sexual or reproductive concerns you would like your healthcare team to be aware of? No ==== ADVANCE DIRECTIVE ==== Notification of Rights Related to Advance Directives: Written notification not provided. Explain: pt refused. *The patient wishes to receive information about or assistance with Advance Care Planning and/or Advance Directive: No === SPIRITUALITY === Are there oriental orthodox practices or spiritual concerns you want the technical sales consultant, your provider, and other health care team members to know? No ==== ANTICIPATED DISCHARGE NEEDS ==== Where do you live? Housing owned/rented by [place]: Method of transportation upon discharge: Private Vehicle: Are there any anticipated barriers to discharge? No === EDUCATIONAL NEEDS/LEARNING STYLE === Barriers to learning: None evident Patient learning style preferences: None ====== RUIZ FALL SCALE & TIPS PROGRAM ====== Ruiz Fall Scale: The Ruiz Fall scale was performed and score was 20. This is indicative of low risk of falls. History of falling: immediate or within 3 months? No Secondary diagnosis: No Ambulatory aid: None/bedrest/nurse assist Intravenous therapy/Heparin lock: Yes Gait/Transferring: Normal/bed rest/immobile Mental Status: Oriented to own ability/knows own limitations Fall Tailoring Interventions for Patient Safety (TIPS) Fall TIPS initiated with patient: Yes Interventions: Assistance out of bed: Call for assistance before getting out of bed ===== ASPIRATION RISK ASSESSMENT AND SWALLOW SCREEN ===== Aspiration Risk(s): Screening complete. No aspiration risk identified. Bedside Swallow Screen not indicated. ====== PAIN ASSESSMENT ====== Patient's acceptable pain goal: 0 No pain Are you currently experiencing pain? No: /es/ HORACE GARCIA RN REGISTERED NURSE Signed: 01/27/2024 16:51 HORACE GARCIA I [facility]
--- OUTSIDE RECORDS SUMMARY | 2024-02-10 23:35 | XMS_ITS ---
[place] DAILY HOSPITALIZATION DATA [facility] Encounter Summary Created on: February 10, 2024 GERI COUGHLIN : 1935 Sex: Male Author Name [facility] [place] [facility] [place] [facility] [place] Address [address] [place] [address] Care Team Providers Care Principal Android Developer Name Role Phone SARIAH GOMES Primary Care [...] PART A Sep 09, 2002 PART A [id number] JOAQUIN COUGHLIN S PATIENT MEDICARE (WNR) MEDICARE (M) PART B Sep 09, 2002 PART B [id number] JOAQUIN COUGHLIN S PATIENT MEDICARE (WNR) MEDICARE (M) PART A Sep 09, 2002 PART A [id number] JOAQUIN COUGHLIN S PATIENT MEDICARE (WNR) MEDICARE (M) PART B Sep 09, 2002 PART B [id number] JOAQUIN COUGHLIN S PATIENT Selected Encounter This section includes the information on record at [place] for the Encounter. Date/Time Encounter Type Encounter Description Reason Pro vider Source Jan 28, 2024 02:25 AM Inpatient Visit DAILY HOSPITALIZATION DATA [facility] Encounter Template Text not used by MA [...] 20 appointments. The data comes from all [facility]. Appointment Date/Time Appointment Type Appointme nt Facility Name Feb 21, 2024 10:00 AM AMBULATORY - MEDICINE [facility] Feb 24, 2024 12:15 PM AMBULATORY MEDICINE [facility] Feb 24, 2024 01:00 PM AMBULATORY MEDICINE [facility] Mar 02, 2024 01:00 PM AMBULATORY - REHAB MEDICIN E [facility] Active, Pending, and Scheduled Orders This section includes a listing of several types of active, pending, and scheduled orders, including clinic medications orders, diagnostic test orders, procedure orders and consult orders; where the start date of the order is 45 days before the date of the Encounter or 45 days after the date of theEncounter. The data comes from all [facility]. Test Date/Time Test Type Test Details Facility Name Jan 18, 2024 04:23 PM Consult Order COMMUNITY CARE-ECHOCARDIOGRAPHY Cons Front Office Coordinator's [facility] Jan 19, 2024 12:10 PM Consult Order COMMUNITY CARE-DERMATOLOGY [facility] Front Office Coordinators [facility] Jan 28, 2024 02:00 AM Laboratory - Chemistry Order TROPONIN I, HS PLASMA STAT WC [facility] Jan 31, 2024 09:30 AM Consult Order CARDIAC REHAB OUTPT Cons Bedside [facility] Jan 31, 2024 10:13 AM Consult Order CARDIOLOGY INTERVENTIONAL CLINIC OUTPT Cons Front Office Coordinator's [facility] Lab Results: +/- 30 days of the encounter This section includes the Chemistry and Hematology Lab Results on record with [place] for the patient. Radiology Reports and Pathology Reports are provided separately, in subsequent sections. Lab Results This section contains the Chemistry/Hematology Results that were resulted 30 days before or 30 daysafter the date of the Encounter. Date/Time Source Result Type Result - Unit Interpretation Reference Range Comment Jan 31, 2024 10:50 AM [facility] HEMOGLOBIN A1C Specimen Type: BLOOD Comment: [...] Jan 31, 2024 10:13 AM Reporting Lab: [facility] [phone] Performing Lab: [facility] [phone] HEMOGLOBIN A1C 5.4 4.0-6.0 Jan 31, 2024 10:50 AM [facility] LIPID PANEL,FASTING Specimen Type: PLASMA No comment entered. Ordering Provider: JULIET SMART Report Released Date/Time: Jan 31, 2024 10:13 AM Reporting Lab: [facility] [address] Performing Lab: [facility] [address] CHOLESTEROL 125 mg/dL <199 TRIGLYCERIDE 95 mg/dL <149 .HDL 37 mg/dL L >40 LDL CALCULATION 69 mg/dL <99 VLDL CALCULATION 19 mg/dL <29 NON HDL CHOLESTEROL 88 mg/dL <129 Jan 31, 2024 07:29 AM [facility] CBC Specimen Type: BLOOD No comment entered. Ordering Provider: BASHIR CARVAJAL Report Released Date/Time: Jan 30, 2024 01:03 PM Reporting Lab: [facility] [phone] Performing Lab: [facility] [address] WBC 7.3 4.0-11.0 RBC 3.83 L 4.60-6.20 HGB 11.4 g/dL L 13.5-17.9 HCT 35.1 L 41.0-54.0 MCV 91.6 fL 80.0-100.0 MCH 29.8 pg 27.0-33.0 MCHC 32.5 g/dL 32.0-37.5 PLT 193 150-400 MPV 10.7 fL 9.1-13.0 RDW 12.2 11.5-14.5 Jan 31, 2024 07:29 AM [facility] BASIC METABOLIC PANEL+MG Specimen Type: PLASMA No comment entered. Ordering Provider: BASHIR CARVAJAL Report Released Date/Time: Jan 30, 2024 01:03 PM Reporting Lab: [facility] [address] Performing Lab: [facility] [address] CREATININE 1.3 mg/dL H 0.7-1.2 UREA NITROGEN 24 mg/dL 8-26 GLUCOSE 91 mg/dL 70-100 SODIUM 138 mmol/L 136-145 POTASSIUM 4.1 mmol/L 3.5-5.1 CHLORIDE 108 mmol/L H 98-107 CO2 23 mmol/L 22-29 CALCIUM 8.8 mg/dL 8.4-10.2 MAGNESIUM 2.1 mg/dL 1.6-2.6 ANION GAP 7 mmol/L 5-15 .CREAT EGFR(CKD-EPI) 54 L >60 Jan 30, 2024 10:37 AM [facility] POC ACT Specimen Type: BLOOD No comment entered. Ordering Provider: RODO CHRISTY Report Released Date/Time: Jan 30, 2024 10:43 AM Reporting Lab: [facility] [address] Performing Lab: [facility] [address] POC ACT 241 s H 84-139 Jan 30, 2024 10:08 AM [facility] POC ACT Specimen Type: BLOOD No comment entered. Ordering Provider: RODO CHRISTY Report Released Date/Time: Jan 30, 2024 10:14 AM Reporting Lab: [facility] [phone] Performing Lab: [facility] [address] POC ACT 289 s H 84-139 Jan 30, 2024 09:34 AM [facility] POC ACT Specimen Type: BLOOD No comment entered. Ordering Provider: RODO CHRISTY Report Released Date/Time: Jan 30, 2024 10:14 AM Reporting Lab: [facility] [address] Performing Lab: [facility] [address] POC ACT 294 s H 84-139 Jan 30, 2024 05:37 AM [facility] HEPARIN APTT Specimen Type: PLASMA No comment entered. Ordering Provider: BASHIR CARVAJAL Report Released Date/Time: Jan 29, 2024 09:43 PM Reporting Lab: [facility] [address] Performing Lab: [facility] [address] HEPARIN APTT 83.2 s 48.0-92.0 Jan 30, 2024 05:37 AM [facility] BASIC METABOLIC PANEL+MG Specimen Type: PLASMA No comment entered. Ordering Provider: BASHIR CARVAJAL Report Released Date/Time: Jan 29, 2024 12:19 PM Reporting Lab: [facility] [address] Performing Lab: [facility] [address] CREATININE 1.4 mg/dL H 0.7-1.2 UREA NITROGEN 27 mg/dL H 8-26 GLUCOSE 95 mg/dL 70-100 SODIUM 139 mmol/L 136-145 POTASSIUM 4.2 mmol/L 3.5-5.1 CHLORIDE 109 mmol/L H 98-107 CO2 24 mmol/L 22-29 CALCIUM 9.0 mg/dL 8.4-10.2 MAGNESIUM 2.1 mg/dL 1.6-2.6 ANION GAP 6 mmol/L 5-15 .CREAT EGFR(CKD-EPI) 49 L >60 Jan 29, 2024 09:02 PM [facility] HEPARIN APTT Specimen Type: PLASMA Comment: Critical Value Reported To: Tomasa Delcid PharmD 01/29/24 @[address] [place] [address]. Critical value report confirmed. Ordering Provider: MERY SAMUEL Report Released Date/Time: Jan 29, 2024 03:00 PM Reporting Lab: [facility] [address] Performing Lab: [facility] [address] HEPARIN APTT 214.6 s HH 48.0-92.0 Jan 29, 2024 06:24 AM [facility] BASIC METABOLIC PANEL+MG Specimen Type: PLASMA No comment entered. Ordering Provider: BASHIR CARVAJAL Report Released Date/Time: Jan 28, 2024 04:36 PM Reporting Lab: [facility] [address] Performing Lab: [facility] [address] CREATININE 1.6 mg/dL H 0.7-1.2 UREA NITROGEN 27 mg/dL H 8-26 GLUCOSE 92 mg/dL 70-100 SODIUM 140 mmol/L 136-145 POTASSIUM 4.2 mmol/L 3.5-5.1 CHLORIDE 110 mmol/L H 98-107 CO2 25 mmol/L 22-29 CALCIUM 8.8 mg/dL 8.4-10.2 MAGNESIUM 2.1 mg/dL 1.6-2.6 ANION GAP 5 mmol/L 5-15 .CREAT EGFR(CKD-EPI) 42 L >60 Jan 28, 2024 05:54 AM [facility] EXTRA PURPLE TUBE Specimen Type: BLOOD No comment entered. Ordering Provider: RODO CHRISTY Report Released Date/Time: Jan 28, 2024 05:54 AM Reporting Lab: [facility] [address] Performing Lab: [facility] [address] EXTRA PURPLE TUBE RECEIVED Jan 28, 2024 05:53 AM [facility] ALBUMIN Specimen Type: PLASMA No comment entered. Ordering Provider: BASHIR CARVAJAL Report Released Date/Time: Jan 27, 2024 04:49 PM Reporting Lab: [facility] [address] Performing Lab: [facility] [address] ALBUMIN 3.5 g/dL 3.5-5.2 Jan 28, 2024 05:53 AM [facility] BASIC METABOLIC PANEL+MG Specimen Type: PLASMA No comment entered. Ordering Provider: BASHIR CARVAJAL Report Released Date/Time: Jan 27, 2024 05:44 PM Reporting Lab: [facility] [address] Performing Lab: [facility] [address] CREATININE 1.4 mg/dL H 0.7-1.2 UREA NITROGEN 28 mg/dL H 8-26 GLUCOSE 92 mg/dL 70-100 SODIUM 140 mmol/L 136-145 POTASSIUM 4.4 mmol/L 3.5-5.1 CHLORIDE 109 mmol/L H 98-107 CO2 23 mmol/L 22-29 CALCIUM 8.8 mg/dL 8.4-10.2 MAGNESIUM 2.1 mg/dL 1.6-2.6 ANION GAP 8 mmol/L 5-15 .CREAT EGFR(CKD-EPI) 49 L >60 Jan 28, 2024 05:52 AM [facility] TROPONIN I, HS Specimen Type: PLASMA Comment: Critical value previously reported on patient. Ordering Provider: BRANDON MEJIA Report Released Date/Time: Jan 27, 2024 09:15 PM Reporting Lab: [facility] [address] Performing Lab: [facility] [address] TROPONIN I, HS 128 HH <35 Jan 28, 2024 12:35 AM [facility] COVID-19 DIAGNOSTIC PANEL (CEPHEID) Specimen Type: NASOPHARYNGEAL Comment: Cepheid GeneXpert (618) Ordering Provider: LUCAS HAWTHORNE Report Released Date/Time: Jan 27, 2024 04:28 PM Reporting Lab: [facility] [address] Performing Lab: [facility] [address] COVID-19 (CEPHEID) Not Detected Not Detected Jan 28, 2024 12:35 AM [facility] TROPONIN I, HS Specimen Type: PLASMA Comment: Critical value previously reported on patient. Ordering Provider: BRANDON MEJIA Report Released Date/Time: Jan 27, 2024 09:15 PM Reporting Lab: [facility] [address] Performing Lab: [facility] [address] TROPONIN I, HS 158 HH <35 Jan 28, 2024 12:35 AM [facility] HEPARIN APTT Specimen Type: PLASMA Comment: Critical Value Reported To: Deena Oliveros PharmD 01/28/24 @0110 HV. Critical value report confirmed. Ordering Provider: NATALIE ORDOÑEZ Report Released Date/Time: Jan 27, 2024 07:18 PM Reporting Lab: [facility] [address] Performing Lab: [facility] [address] HEPARIN APTT 133.9 s HH 48.0-92.0 Jan 27, 2024 09:22 PM [facility] TROPONIN I, HS Specimen Type: PLASMA Comment: Critical value previously reported on patient. Ordering Provider: BASHIR CARVAJAL Report Released Date/Time: Jan 27, 2024 08:38 PM Reporting Lab: [facility] [address] Performing Lab: [facility] [address] TROPONIN I, HS 146 HH <35 Jan 27, 2024 06:52 PM [facility] TROPONIN I, HS Specimen Type: PLASMA Comment: Critical Value Reported To: Brandon Mejia MD 01/27/24 @1950 KLM. Critical value report confirmed. Ordering Provider: BASHIR CARVAJAL Report Released Date/Time: Jan 27, 2024 04:54 PM Reporting Lab: [facility] [address] Performing Lab: [facility] [address] TROPONIN I, HS 136 HH <35 Jan 27, 2024 06:52 PM [facility] BASIC METABOLIC PANEL+MG Specimen Type: PLASMA No comment entered. Ordering Provider: BASHIR CARVAJAL Report Released Date/Time: Jan 27, 2024 04:54 PM Reporting Lab: [facility] [address] Performing Lab: [facility] [address] CREATININE 1.3 mg/dL H 0.7-1.2 UREA NITROGEN 30 mg/dL H 8-26 GLUCOSE 141 mg/dL H 70-100 SODIUM 142 mmol/L 136-145 POTASSIUM 3.4 mmol/L L 3.5-5.1 CHLORIDE 106 mmol/L 98-107 CO2 27 mmol/L 22-29 CALCIUM 8.8 mg/dL 8.4-10.2 MAGNESIUM 2.2 mg/dL 1.6-2.6 ANION GAP 9 mmol/L 5-15 .CREAT EGFR(CKD-EPI) 54 L >60 Jan 27, 2024 06:52 PM [facility] CBC Specimen Type: BLOOD No comment entered. Ordering Provider: BASHIR CARVAJAL Report Released Date/Time: Jan 27, 2024 04:54 PM Reporting Lab: [facility] [address] Performing Lab: [facility] [address] WBC 6.0 4.0-11.0 RBC 3.91 L 4.60-6.20 HGB 12.1 g/dL L 13.5-17.9 HCT 36.5 L 41.0-54.0 MCV 93.4 fL 80.0-100.0 MCH 30.9 pg 27.0-33.0 MCHC 33.2 g/dL 32.0-37.5 PLT 177 150-400 MPV 10.7 fL 9.1-13.0 RDW 12.4 11.5-14.5 Vital Signs: All taken on the encounter date This section contains inpatient and outpatient Vital Signs collected on the date of the Encounter. Date/Time Temperature Pulse Blood Pressure Respiratory Rate SP02 Pain Height Weight Body Mass Index Source Jan 28, 2024 03:42 AM 0 [facility] Jan 28, 2024 03:25 AM 7 [facility] Social History: Smoking Status (Most current) [...] 14, 2023 11:30 AM VA-TOBACCO FORMER USER [facility] Tobacco Use History This section includes a history of the smoking, or tobacco-related health factors, that were collected on or before the date of the Encounter. The data comes from the [place] facility where the Encounter took place. Date/Time Smoking Status/Tobacco Use Comment F acility Dec 14, 2023 11:30 AM VA-TOBACCO QUIT 15 YRS OR MORE [facility] Oct 13, 2022 01:30 PM VA-TOBACCO FORMER USER [facility] Oct 13, 2022 01:30 PM VA-TOBACCO QUIT 15 YRS OR MORE [facility] Jul 27, 2021 10:00 AM VA-TOBACCO FORMER USER [facility] Jul 27, 2021 10:00 AM VA-TOBACCO QUIT 15 YRS OR MORE [facility] Jan 02, 2020 09:00 AM VA-TOBACCO FORMER USER [facility] Jan 02, 2020 09:00 AM VA-TOBACCO QUIT 15 YRS OR MORE [facility] Jul 21, 2018 03:00 PM VA-TOBACCO FORMER USER [facility] Jul 21, 2018 03:00 PM VA-TOBACCO QUIT 15 YRS OR MORE [facility] Dec 24, 2016 08:01 AM FORMER TOBACCO USER 7Y OR GREATE R [facility] Dec 23, 2015 08:23 AM FORMER TOBACCO USE >1Y <7Y [facility] Dec 26, 2014 10:32 AM FORMER TOBACCO USER 7Y OR GREATE R [facility] August 13, 2013 08:22 AM LIFETIME NON-TOBACCO USER [facility] August 30, 2006 08:38 AM FORMER TOBACCO USER 7Y OR GREATE R [facility] Advance Directives: All historical and current Section Date Range: From patient's date of to the date document was created. This section includes ALL of a patient's completed or amended [place] Advance and Rescinded Directives. The entries below indicate that a directive exists for the patient, but an actual copy is not included with this document. The data comes from all [place] facilities. Date Advance Directives Provider Source August [...] COSIGNER: URGENCY: STATUS: COMPLETED $APHDR Reporting Lab: [facility] [CLIA# [id number]] [place] [address] - - - - - - - [...] - PATHOLOGY REPORT Accession No. [id number] - - - - - - - [...] - PATHOLOGY REPORT Accession No. [id number] - - - - - - - [...] 0.1 cm. The specimen is inked. CE. [place] [place]: Microscopic examination performed. CI. 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 STAFF PATHOLOGIST Signed Jan 06, 2024@11:16 Performing Laboratory: Surgical Pathology Report Performed By: [facility] [CLIA# [id number]] [place] [address] $FTR - - - - - - - - - - - - - - - - - - - - - - - - - - - - - - - - - - - - - - - - (End of report) JOSE REEES MD adithya Date Jan 06, 2024 - - - - - - - - - - - - - - - - - - - - - - - - - - - - - - - - - - - - - - - - GERI COUGHLIN STANDARD FORM 515 ID:[id number] SEX:M :[id number] AGE: 88 LOC:[id number] PCP: Sariah Gomes MD /shelly/ JOSE REESE M.D. STAFF PATHOLOGIST Signed: 01/06/2024 11:16 JOSE REESE [facility]
--- OUTSIDE RECORDS SUMMARY | 2024-02-10 23:35 | XMS_ITS | Encounter Summary ---
Author Name [facility] [place] [facility] [place] [facility] [place] [facility] [place] Address [address] [place] [id number] Care Team Providers Care Lav Crewman Name Role Phone SARIAH GOMES Primary Care Provider [facility] Insurance Providers: All historical and current Section Date Range: From patient's date of to the date document was created. This section includes the names of all active insurance providers for the patient. Insurance Provider Type of Coverage Plan Name Start of Policy Coverage End of Policy Coverage Group Number Member ID Insurance Provider's Telephone Number Policy Barron's Name Patient's Relationship to Policy Barron MEDICARE (WNR) MEDICARE (M) PART B Sep 09, 2002 PART B [phone] MADYSON,JOAQUIN S PATIENT MEDICARE (WNR) MEDICARE (M) PART A Sep 09, 2002 PART A [phone] NULL,JOAQUIN S PATIENT MEDICARE (WNR) MEDICARE (M) PART A Sep 09, 2002 PART A [id number] NULL,JOAQUIN S PATIENT MEDICARE (WNR) MEDICARE (M) PART B Sep 09, 2002 PART B [id number] MADYSON,JOAQUIN S PATIENT Selected Encounter This section includes the information on record at [place] for the Encounter. Date/Time Encounter Type Encounter Description Reason Provider Source Jan 27, 2024 01:00 AM Outpatient Encounter ADMIN PAT ACTIVTIES (LoggedInNONCT) SYSTEM,ZEINAB-SHIRA [facility] Encounter Template Text not used by [place] Plan of Treatment: Future Appointments (+ 6 months) and Future Tests (+/- 45 days) The Plan of Treatment section includes future care activities for the patient from all [place] [facility]. This section includes future appointments and future orders which are active, pending or scheduled. Future Appointments This section includes appointments that were scheduled to occur 6 months from the date of the Encounter, up to a maximum of 20 appointments. The data comes from all [facility]. Appointment Date/Time Appointment Type Appointme nt Facility Name Feb 21, 2024 10:00 AM AMBULATORY - MEDICINE [facility] Feb 24, 2024 12:15 PM AMBULATORY MEDICINE [facility] Feb 24, 2024 01:00 PM AMBULATORY MEDICINE [facility] Mar 02, 2024 01:00 PM AMBULATORY - REHAB MEDICIN E [facility] Active, Pending, and Scheduled Orders This section includes a listing of several types of active, pending, and scheduled orders, including clinic medications orders, diagnostic test orders, procedure orders and consult orders; where the start date of the order is 45 days before the date of the Encounter or 45 days after the date of theEncounter. The data comes from all [facility]. Test Date/Time Test Type Test Details Facility Name Jan 18, 2024 04:23 PM Consult Order COMMUNITY CARE-ECHOCARDIOGRAPHY [facility] Credit Assessment Analyst's [facility] Jan 19, 2024 12:10 PM Consult Order COMMUNITY CARE-DERMATOLOGY [facility] Credit Assessment Analyst's [facility] Jan 28, 2024 02:00 AM Laboratory - Chemistry Order TROPONIN I, HS PLASMA STAT WC [facility] Jan 31, 2024 09:30 AM Consult Order CARDIAC REHAB OUTPT Cons Bedside [facility] Jan 31, 2024 10:13 AM Consult Order CARDIOLOGY INTERVENTIONAL CLINIC OUTPT [facility] Credit Assessment Analyst's [facility] Lab Results: +/- 30 days of the encounter This section includes the Chemistry and Hematology Lab Results on record with [place] for the patient. Radiology Reports and Pathology Reports are provided separately, in subsequent sections. Lab Results This section contains the Chemistry/Hematology Results that were resulted 30 days before or 30 daysafter the date of the Encounter. Date/Time Source Result Type Result - Unit Interpretation Reference Range Comment Jan 31, 2024 10:50 AM [facility] HEMOGLOBIN A1C Specimen Type: BLOOD [...] Jan 31, 2024 10:13 AM Reporting Lab: [facility] [phone] Performing Lab: [facility] [phone] HEMOGLOBIN A1C 5.4 4.0-6.0 Jan 31, 2024 10:50 AM [facility] LIPID PANEL,FASTING Specimen Type: PLASMA No comment entered. Ordering Provider: JULIET SMART Report Released Date/Time: Jan 31, 2024 10:13 AM Reporting Lab: [facility] [phone] Performing Lab: [facility] [phone] CHOLESTEROL 125 mg/dL <199 TRIGLYCERIDE 95 mg/dL <149 .HDL 37 mg/dL L >40 LDL CALCULATION 69 mg/dL <99 VLDL CALCULATION 19 mg/dL <29 NON HDL CHOLESTEROL 88 mg/dL <129 Jan 31, 2024 07:29 AM [facility] CBC Specimen Type: BLOOD No comment entered. Ordering Provider: BASHIR CARVAJAL Report Released Date/Time: Jan 30, 2024 01:03 PM Reporting Lab: [facility] [phone] Performing Lab: [facility] [phone] WBC 7.3 4.0-11.0 RBC 3.83 L 4.60-6.20 HGB 11.4 g/dL L 13.5-17.9 HCT 35.1 L 41.0-54.0 MCV 91.6 fL 80.0-100.0 MCH 29.8 pg 27.0-33.0 MCHC 32.5 g/dL 32.0-37.5 PLT 193 150-400 MPV 10.7 fL 9.1-13.0 RDW 12.2 11.5-14.5 Jan 31, 2024 07:29 AM [facility] BASIC METABOLIC PANEL+MG Specimen Type: PLASMA No comment entered. Ordering Provider: BASHIR CARVAJAL Report Released Date/Time: Jan 30, 2024 01:03 PM Reporting Lab: [facility] [phone] Performing Lab: [facility] [phone] CREATININE 1.3 mg/dL H 0.7-1.2 UREA NITROGEN 24 mg/dL 8-26 GLUCOSE 91 mg/dL 70-100 SODIUM 138 mmol/L 136-145 POTASSIUM 4.1 mmol/L 3.5-5.1 CHLORIDE 108 mmol/L H 98-107 CO2 23 mmol/L 22-29 CALCIUM 8.8 mg/dL 8.4-10.2 MAGNESIUM 2.1 mg/dL 1.6-2.6 ANION GAP 7 mmol/L 5-15 .CREAT EGFR(CKD-EPI) 54 L >60 Jan 30, 2024 10:37 AM [facility] POC ACT Specimen Type: BLOOD No comment entered. Ordering Provider: RODO CHRISTY Report Released Date/Time: Jan 30, 2024 10:43 AM Reporting Lab: [facility] [phone] Performing Lab: [facility] [phone] POC ACT 241 s H 84-139 Jan 30, 2024 10:08 AM [facility] POC ACT Specimen Type: BLOOD No comment entered. Ordering Provider: RODO CHRISTY Report Released Date/Time: Jan 30, 2024 10:14 AM Reporting Lab: [facility] [phone] Performing Lab: [facility] [phone] POC ACT 289 s H 84-139 Jan 30, 2024 09:34 AM [facility] POC ACT Specimen Type: BLOOD No comment entered. Ordering Provider: RODO CHRISTY Report Released Date/Time: Jan 30, 2024 10:14 AM Reporting Lab: [facility] [phone] Performing Lab: [facility] [phone] POC ACT 294 s H 84-139 Jan 30, 2024 05:37 AM [facility] HEPARIN APTT Specimen Type: PLASMA No comment entered. Ordering Provider: BASHIR CARVAJAL Report Released Date/Time: Jan 29, 2024 09:43 PM Reporting Lab: [facility] [phone] Performing Lab: [facility] [phone] HEPARIN APTT 83.2 s 48.0-92.0 Jan 30, 2024 05:37 AM [facility] BASIC METABOLIC PANEL+MG Specimen Type: PLASMA No comment entered. Ordering Provider: BASHIR CARVAJAL Report Released Date/Time: Jan 29, 2024 12:19 PM Reporting Lab: [facility] [phone] Performing Lab: [facility] [phone] CREATININE 1.4 mg/dL H 0.7-1.2 UREA NITROGEN 27 mg/dL H 8-26 GLUCOSE 95 mg/dL 70-100 SODIUM 139 mmol/L 136-145 POTASSIUM 4.2 mmol/L 3.5-5.1 CHLORIDE 109 mmol/L H 98-107 CO2 24 mmol/L 22-29 CALCIUM 9.0 mg/dL 8.4-10.2 MAGNESIUM 2.1 mg/dL 1.6-2.6 ANION GAP 6 mmol/L 5-15 .CREAT EGFR(CKD-EPI) 49 L >60 Jan 29, 2024 09:02 PM [facility] HEPARIN APTT Specimen Type: PLASMA Comment: Critical Value Reported To: Tomasa Delcid PharmD 01/29/24 @[address] [place] [address]. Critical value report confirmed. Ordering Provider: MERY SAMUEL Report Released Date/Time: Jan 29, 2024 03:00 PM Reporting Lab: [facility] [phone] Performing Lab: [facility] [phone] HEPARIN APTT 214.6 s HH 48.0-92.0 Jan 29, 2024 06:24 AM [facility] BASIC METABOLIC PANEL+MG Specimen Type: PLASMA No comment entered. Ordering Provider: BASHIR CARVAJAL Report Released Date/Time: Jan 28, 2024 04:36 PM Reporting Lab: [facility] [phone] Performing Lab: [facility] [phone] CREATININE 1.6 mg/dL H 0.7-1.2 UREA NITROGEN 27 mg/dL H 8-26 GLUCOSE 92 mg/dL 70-100 SODIUM 140 mmol/L 136-145 POTASSIUM 4.2 mmol/L 3.5-5.1 CHLORIDE 110 mmol/L H 98-107 CO2 25 mmol/L 22-29 CALCIUM 8.8 mg/dL 8.4-10.2 MAGNESIUM 2.1 mg/dL 1.6-2.6 ANION GAP 5 mmol/L 5-15 .CREAT EGFR(CKD-EPI) 42 L >60 Jan 28, 2024 05:54 AM [facility] EXTRA PURPLE TUBE Specimen Type: BLOOD No comment entered. Ordering Provider: RODO CHRISTY Report Released Date/Time: Jan 28, 2024 05:54 AM Reporting Lab: [facility] [phone] Performing Lab: [facility] [phone] EXTRA PURPLE TUBE RECEIVED Jan 28, 2024 05:53 AM [facility] ALBUMIN Specimen Type: PLASMA No comment entered. Ordering Provider: BASHIR CARVAJAL Report Released Date/Time: Jan 27, 2024 04:49 PM Reporting Lab: [facility] [phone] Performing Lab: [facility] [phone] ALBUMIN 3.5 g/dL 3.5-5.2 Jan 28, 2024 05:53 AM [facility] BASIC METABOLIC PANEL+MG Specimen Type: PLASMA No comment entered. Ordering Provider: BASHIR CARVAJAL Report Released Date/Time: Jan 27, 2024 05:44 PM Reporting Lab: [facility] [phone] Performing Lab: [facility] [phone] CREATININE 1.4 mg/dL H 0.7-1.2 UREA NITROGEN 28 mg/dL H 8-26 GLUCOSE 92 mg/dL 70-100 SODIUM 140 mmol/L 136-145 POTASSIUM 4.4 mmol/L 3.5-5.1 CHLORIDE 109 mmol/L H 98-107 CO2 23 mmol/L 22-29 CALCIUM 8.8 mg/dL 8.4-10.2 MAGNESIUM 2.1 mg/dL 1.6-2.6 ANION GAP 8 mmol/L 5-15 .CREAT EGFR(CKD-EPI) 49 L >60 Jan 28, 2024 05:52 AM [facility] TROPONIN I, HS Specimen Type: PLASMA Comment: Critical value previously reported on patient. Ordering Provider: BRANDON MEJIA Report Released Date/Time: Jan 27, 2024 09:15 PM Reporting Lab: [facility] [phone] Performing Lab: [facility] [phone] TROPONIN I, HS 128 HH <35 Jan 28, 2024 12:35 AM [facility] COVID-19 DIAGNOSTIC PANEL (CEPHEID) Specimen Type: NASOPHARYNGEAL Comment: Cepheid GeneXpert (618) Ordering Provider: LUCAS HAWTHORNE Report Released Date/Time: Jan 27, 2024 04:28 PM Reporting Lab: [facility] [phone] Performing Lab: [facility] [phone] COVID-19 (CEPHEID) Not Detected Not Detected Jan 28, 2024 12:35 AM [facility] HEPARIN APTT Specimen Type: PLASMA Comment: Critical Value Reported To: Deena Oliveros PharmD 01/28/24 @0110 HV. Critical value report confirmed. Ordering Provider: NATALIE ORDOÑEZ Report Released Date/Time: Jan 27, 2024 07:18 PM Reporting Lab: [facility] [phone] Performing Lab: [facility] [phone] HEPARIN APTT 133.9 s HH 48.0-92.0 Jan 28, 2024 12:35 AM [facility] TROPONIN I, HS Specimen Type: PLASMA Comment: Critical value previously reported on patient. Ordering Provider: BRANDON MEJIA Report Released Date/Time: Jan 27, 2024 09:15 PM Reporting Lab: [facility] [phone] Performing Lab: [facility] [phone] TROPONIN I, HS 158 HH <35 Jan 27, 2024 09:22 PM [facility] TROPONIN I, HS Specimen Type: PLASMA Comment: Critical value previously reported on patient. Ordering Provider: BASHIR CARVAJAL Report Released Date/Time: Jan 27, 2024 08:38 PM Reporting Lab: [facility] [phone] Performing Lab: [facility] [phone] TROPONIN I, HS 146 HH <35 Jan 27, 2024 06:52 PM [facility] TROPONIN I, HS Specimen Type: PLASMA Comment: Critical Value Reported To: Brandon Mejia MD 01/27/24 @1950 KL. Critical value report confirmed. Ordering Provider: BASHIR CARVAJAL Report Released Date/Time: Jan 27, 2024 04:54 PM Reporting Lab: [facility] [phone] Performing Lab: [facility] [phone] TROPONIN I, HS 136 HH <35 Jan 27, 2024 06:52 PM [facility] BASIC METABOLIC PANEL+MG Specimen Type: PLASMA No comment entered. Ordering Provider: BASHIR CARVAJAL Report Released Date/Time: Jan 27, 2024 04:54 PM Reporting Lab: [facility] [phone] Performing Lab: [facility] [phone] CREATININE 1.3 mg/dL H 0.7-1.2 UREA NITROGEN 30 mg/dL H 8-26 GLUCOSE 141 mg/dL H 70-100 SODIUM 142 mmol/L 136-145 POTASSIUM 3.4 mmol/L L 3.5-5.1 CHLORIDE 106 mmol/L 98-107 CO2 27 mmol/L 22-29 CALCIUM 8.8 mg/dL 8.4-10.2 MAGNESIUM 2.2 mg/dL 1.6-2.6 ANION GAP 9 mmol/L 5-15 .CREAT EGFR(CKD-EPI) 54 L >60 Jan 27, 2024 06:52 PM [facility] CBC Specimen Type: BLOOD No comment entered. Ordering Provider: BASHIR CARVAJAL Report Released Date/Time: Jan 27, 2024 04:54 PM Reporting Lab: [facility] [phone] Performing Lab: [facility] [phone] WBC 6.0 4.0-11.0 RBC 3.91 L 4.60-6.20 [...] and tobacco- related health factors from the [place] facility where the Encounter took place. Current Smoking Status This section includes the most current smoking, or tobacco-related health factor, from the [place] facility where the Encounter took place. Date/Time Current Smoking Status Comment Facil ity Dec 14, 2023 11:30 AM VA-TOBACCO FORMER USER [facility] Tobacco Use History This section includes a history of the smoking, or tobacco-related health factors, that were collected on or before the date of the Encounter. The data comes from the [place] facility where the Encounter took place. Date/Time Smoking Status/Tobacco Use Comment F acility Dec 14, 2023 11:30 AM VA-TOBACCO QUIT 15 YRS OR MORE [facility] Oct 13, 2022 01:30 PM VA-TOBACCO FORMER USER [facility] Oct 13, 2022 01:30 PM VA-TOBACCO QUIT 15 YRS OR MORE [facility] Jul 27, 2021 10:00 AM VA-TOBACCO FORMER USER [facility] Jul 27, 2021 10:00 AM VA-TOBACCO QUIT 15 YRS OR MORE [facility] Jan 02, 2020 09:00 AM VA-TOBACCO FORMER USER [facility] Jan 02, 2020 09:00 AM VA-TOBACCO QUIT 15 YRS OR MORE [facility] Jul 21, 2018 03:00 PM VA-TOBACCO FORMER USER [facility] Jul 21, 2018 03:00 PM VA-TOBACCO QUIT 15 YRS OR MORE [facility] Dec 24, 2016 08:01 AM FORMER TOBACCO USER 7Y OR GREATE R [facility] Dec 23, 2015 08:23 AM FORMER TOBACCO USE >1Y <7Y [facility] Dec 26, 2014 10:32 AM FORMER TOBACCO USER 7Y OR GREATE R [facility] August 13, 2013 08:22 AM LIFETIME NON-TOBACCO USER [facility] August 30, 2006 08:38 AM FORMER TOBACCO USER 7Y OR GREATE R [facility] Advance Directives: All historical and current Section Date Range: From patient's date of to the date document was created. This section includes ALL of a patient's completed or amended [place] Advance and Rescinded Directives. The entries below indicate that a directive exists for the patient, but an actual copy is not included with this document. The data comes from all [facility]. Date Advance Directives Provider Source August 30, [...] the Encounter. The data comes from all [place] treatment facilities. Date/Time Pathology Report Provider Source Jan 06, 2024 11:16 AM LR SURGICAL PATHOL OGY REPORT: LOCAL TITLE: LR SURGICAL PATHOLOGY REPORT STANDARD TITLE: PATHOLOGY REPORT DATE OF NOTE: JAN 06, 2024@11:16:39 ENTRY DATE: JAN 06, 2024@11:16:39 AUTHOR: JOSE REESE COSIGNER: URGENCY: STATUS: COMPLETED $APHDR Reporting Lab: [facility] [CLIA# [id number]] [place] [address] - - - - - - - [...] - PATHOLOGY REPORT Accession No. [id number] - - - - - - - [...] - PATHOLOGY REPORT Accession No. [id number] - - - - - - - [...] 0.1 cm. The specimen is inked. CE. ([place] [place]: Microscopic examination performed. CI. 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 STAFF PATHOLOGIST Signed Jan 06, 2024@11:16 Performing Laboratory: Surgical Pathology Report Performed By: [facility] [CLIA# [id number]] [place] [address] $FTR - - - - - - [...] - - MADYSONGERI NUNEZ STANDARD FORM 515 ID:[id number] SEX:M :[id number] AGE: 88 LOC:[id number] PCP: Sariah Gomes MD /shelly/ JOSE REESE M.D. STAFF PATHOLOGIST Signed: 01/06/2024 11:16 JOSE REESE [facility] Encounter Notes: All associated encounter notes This section contains the clinical notes associated to the Encounter. Date/Time Encounter Note(s) Provider Source Jan 27, 2024 01:00 AM CRITICAL CARE UNIT NOTE: LOCAL TITLE: ICCA INPATIENT FLOWSHEET STANDARD TITLE: CRITICAL CARE UNIT NOTE DATE OF NOTE: JAN 27, 2024@01:00 ENTRY DATE: JAN 28, 2024@14:36:06 AUTHOR: SYSTEM,CIS-ARK EXP COSIGNER: URGENCY: STATUS: COMPLETED This is a place barron only. Please see [employer] to view document. /es/ CIS-[facility] SYSTEM ICU DOCUMENT IMPORT Signed: 01/28/2024 14:36 SYSTEM,CIS-ARK [facility] Jan 27, 2024 01:00 AM CRITICAL CARE UNIT NOTE: LOCAL TITLE: ICCA RESPIRATORY THERAPY FLOWSHEET STANDARD TITLE: CRITICAL CARE UNIT NOTE DATE OF NOTE: JAN 27, 2024@01:00 ENTRY DATE: JAN 28, 2024@15:06:33 AUTHOR: SYSTEM,CIS-ARK EXP COSIGNER: URGENCY: STATUS: COMPLETED This is a place barron only. Please see [employer] to view document. /es/ [facility] SYSTEM ICU DOCUMENT IMPORT Signed: 01/28/2024 15:06 SYSTEM,CIS-SHIRA [facility]
--- OUTSIDE RECORDS SUMMARY | 2024-02-10 23:35 | XMS_ITS | Encounter Summary ---
Author Name [facility] Organization [facility] Address [address] [place] [id number] Care Team Providers Care Interactive Account Manager Name Role Phone SARIAH GOMES Primary [...] PART A Sep 09, 2002 PART A [id number] [phone] JOAQUIN COUGHLIN S PATIENT MEDICARE (WNR) MEDICARE (M) PART B Sep 09, 2002 PART B [id number] [phone] JOAQUIN COUGHLIN S PATIENT MEDICARE (WNR) MEDICARE (M) PART A Sep 09, 2002 PART A [id number] JOAQUIN COUGHLIN S PATIENT MEDICARE (WNR) MEDICARE (M) PART B Sep 09, 2002 PART B [id number] JOAQUIN COUGHLIN S PATIENT Selected Encounter This section includes the information on record at [place] for the Encounter. Date/Time Encounter Type Encounter Description Reason Provider Source Jan 28, 2024 11:30 AM TTE W/DOPPLER COMPLETE CARDIAC ECHO ICD-10-CM I50.9 Heart failure, unspecified JHOAN LOUISOneyda Encounter Template Text not used by [place] Assessments - Encounter Diagnoses This section includes the primary and secondary diagnoses documented for the Encounter. Date/Time Primary/Secondary Diagnosis Diagnosis Name Provider Source Jan 28, 2024 11:30 AM PRIMARY Heart failure, unspecified PHYLLIS TRAN [facility] Plan of Treatment: Future Appointments (+ 6 months) and Future Tests (+/- 45 days) The Plan of Treatment section includes future care activities for the patient from all [place] [facility] This section includes future appointments and future orders which are active, pending or scheduled. Future Appointments This section includes appointments that were scheduled to occur 6 months from the date of the Encounter, up to a maximum of 20 appointments. The data comes from all [facility]. Appointment Date/Time Appointment Type Appointme nt Facility Name Feb 21, 2024 10:00 AM AMBULATORY - MEDICINE [facility] Feb 24, 2024 12:15 PM AMBULATORY - MEDICINE [facility] Feb 24, 2024 01:00 PM AMBULATORY - MEDICINE [facility] Mar 02, 2024 01:00 PM AMBULATORY - REHAB MEDICIN E [facility] Active, Pending, and Scheduled Orders This section includes a listing of several types of active, pending, and scheduled orders, including clinic medications orders, diagnostic test orders, procedure orders and consult orders; where the start date of the order is 45 days before the date of the Encounter or 45 days after the date of theEncounter. The data comes from all [facility]. Test Date/Time Test Type Test Details Facility Name Jan 18, 2024 04:23 PM Consult Order COMM[facility]ITY [facility]-ECHOCARDIOGRAPHY [employer] [facility] Jan 19, 2024 12:10 PM Consult Order COMM[facility]-DERMATOLOGY [employer] [facility] Jan 28, 2024 02:00 AM Laboratory - Chemistry Order TROPONIN I, HS PLASMA STAT WC [facility] Jan 31, 2024 09:30 AM Consult Order CARDIAC REHAB OUTPT Cons Bedside [facility] Jan 31, 2024 10:13 AM Consult Order CARDIOLOGY INTERVENTIONAL CLINIC OUTPT [facility] [employer] Director[facility] Lab Results: +/- 30 days of the [...] Range Comment Jan 31, 2024 10:50 AM [facility] HEMOGLOBIN A1C Specimen Type: BLOOD Comment: [...] Jan 31, 2024 10:13 AM Reporting Lab: [facility] [phone] Performing Lab: [facility] [address] HEMOGLOBIN A1C 5.4 4.0-6.0 Jan 31, 2024 10:50 AM [facility] LIPID PANEL,FASTING Specimen Type: PLASMA No comment entered. Ordering Provider: JULIET SMART Report Released Date/Time: Jan 31, 2024 10:13 AM Reporting Lab: [facility] [address] Performing Lab: [facility] [address] CHOLESTEROL 125 mg/dL <199 TRIGLYCERIDE 95 mg/dL <149 .HDL 37 mg/dL L >40 LDL CALCULATION 69 mg/dL <99 VLDL CALCULATION 19 mg/dL <29 NON HDL CHOLESTEROL 88 mg/dL <129 Jan 31, 2024 07:29 AM [facility] CBC Specimen Type: BLOOD No comment entered. Ordering Provider: BASHIR CARVAJAL Report Released Date/Time: Jan 30, 2024 01:03 PM Reporting Lab: [facility] [address] Performing Lab: [facility] [address] WBC 7.3 4.0-11.0 RBC 3.83 L 4.60-6.20 HGB 11.4 g/dL L 13.5-17.9 HCT 35.1 L 41.0-54.0 MCV 91.6 fL 80.0-100.0 MCH 29.8 pg 27.0-33.0 MCHC 32.5 g/dL 32.0-37.5 PLT 193 150-400 MPV 10.7 fL 9.1-13.0 RDW 12.2 11.5-14.5 Jan 31, 2024 07:29 AM [facility] BASIC METABOLIC PANEL+MG Specimen Type: PLASMA No comment entered. Ordering Provider: BASHIR CARVAJAL Report Released Date/Time: Jan 30, 2024 01:03 PM Reporting Lab: [facility] [address] Performing Lab: [facility] [address] CREATININE 1.3 mg/dL H 0.7-1.2 UREA NITROGEN 24 mg/dL 8-26 GLUCOSE 91 mg/dL 70-100 SODIUM 138 mmol/L 136-145 POTASSIUM 4.1 mmol/L 3.5-5.1 CHLORIDE 108 mmol/L H 98-107 CO2 23 mmol/L 22-29 CALCIUM 8.8 mg/dL 8.4-10.2 MAGNESIUM 2.1 mg/dL 1.6-2.6 ANION GAP 7 mmol/L 5-15 .CREAT EGFR(CKD-EPI) 54 L >60 Jan 30, 2024 10:37 AM [facility] POC ACT Specimen Type: BLOOD No comment entered. Ordering Provider: RODO CHRISTY Report Released Date/Time: Jan 30, 2024 10:43 AM Reporting Lab: [facility] [address] Performing Lab: [facility] [address] POC ACT 241 s H 84-139 Jan 30, 2024 10:08 AM [facility] POC ACT Specimen Type: BLOOD No comment entered. Ordering Provider: RODO CHRISTY Report Released Date/Time: Jan 30, 2024 10:14 AM Reporting Lab: [facility] [address] Performing Lab: [facility] [address] POC ACT 289 s H 84-139 Jan 30, 2024 09:34 AM [facility] POC ACT Specimen Type: BLOOD No comment entered. Ordering Provider: RODO CHRISTY Report Released Date/Time: Jan 30, 2024 10:14 AM Reporting Lab: [facility] [address] Performing Lab: [facility] [address] POC ACT 294 s H 84-139 Jan 30, 2024 05:37 AM [facility] HEPARIN APTT Specimen Type: PLASMA No comment entered. Ordering Provider: BASHIR CARVAJAL Report Released Date/Time: Jan 29, 2024 09:43 PM Reporting Lab: [facility] [address] Performing Lab: [facility] [address] HEPARIN APTT 83.2 s 48.0-92.0 Jan 30, 2024 05:37 AM [facility] BASIC METABOLIC PANEL+MG Specimen Type: PLASMA No comment entered. Ordering Provider: BASHIR CARVAJAL Report Released Date/Time: Jan 29, 2024 12:19 PM Reporting Lab: [facility] [address] Performing Lab: [facility] [address] CREATININE 1.4 mg/dL H 0.7-1.2 UREA NITROGEN 27 mg/dL H 8-26 GLUCOSE 95 mg/dL 70-100 SODIUM 139 mmol/L 136-145 POTASSIUM 4.2 mmol/L 3.5-5.1 CHLORIDE 109 mmol/L H 98-107 CO2 24 mmol/L 22-29 CALCIUM 9.0 mg/dL 8.4-10.2 MAGNESIUM 2.1 mg/dL 1.6-2.6 ANION GAP 6 mmol/L 5-15 .CREAT EGFR(CKD-EPI) 49 L >60 Jan 29, 2024 09:02 PM [facility] HEPARIN APTT Specimen Type: PLASMA Comment: Critical Value Reported To: Tomasa Delcid PharmD 01/29/24 @[address] [place] [address]. Critical value report confirmed. Ordering Provider: MERY SAMUEL Report Released Date/Time: Jan 29, 2024 03:00 PM Reporting Lab: [facility] [address] Performing Lab: [facility] [address] HEPARIN APTT 214.6 s HH 48.0-92.0 Jan 29, 2024 06:24 AM [facility] BASIC METABOLIC PANEL+MG Specimen Type: PLASMA No comment entered. Ordering Provider: BASHIR CARVAJAL Report Released Date/Time: Jan 28, 2024 04:36 PM Reporting Lab: [facility] [phone] Performing Lab: [facility] [address] CREATININE 1.6 mg/dL H 0.7-1.2 UREA NITROGEN 27 mg/dL H 8-26 GLUCOSE 92 mg/dL 70-100 SODIUM 140 mmol/L 136-145 POTASSIUM 4.2 mmol/L 3.5-5.1 CHLORIDE 110 mmol/L H 98-107 CO2 25 mmol/L 22-29 CALCIUM 8.8 mg/dL 8.4-10.2 MAGNESIUM 2.1 mg/dL 1.6-2.6 ANION GAP 5 mmol/L 5-15 .CREAT EGFR(CKD-EPI) 42 L >60 Jan 28, 2024 05:54 AM [facility] EXTRA PURPLE TUBE Specimen Type: BLOOD No comment entered. Ordering Provider: RODO CHRISTY Report Released Date/Time: Jan 28, 2024 05:54 AM Reporting Lab: [facility] [address] Performing Lab: [facility] [address] EXTRA PURPLE TUBE RECEIVED Jan 28, 2024 05:53 AM [facility] ALBUMIN Specimen Type: PLASMA No comment entered. Ordering Provider: BASHIR CARVAJAL Report Released Date/Time: Jan 27, 2024 04:49 PM Reporting Lab: [facility] [address] Performing Lab: [facility] [address] ALBUMIN 3.5 g/dL 3.5-5.2 Jan 28, 2024 05:53 AM [facility] BASIC METABOLIC PANEL+MG Specimen Type: PLASMA No comment entered. Ordering Provider: BASHIR CARVAJAL Report Released Date/Time: Jan 27, 2024 05:44 PM Reporting Lab: [facility] [address] Performing Lab: [facility] [address] CREATININE 1.4 mg/dL H 0.7-1.2 UREA NITROGEN 28 mg/dL H 8-26 GLUCOSE 92 mg/dL 70-100 SODIUM 140 mmol/L 136-145 POTASSIUM 4.4 mmol/L 3.5-5.1 CHLORIDE 109 mmol/L H 98-107 CO2 23 mmol/L 22-29 CALCIUM 8.8 mg/dL 8.4-10.2 MAGNESIUM 2.1 mg/dL 1.6-2.6 ANION GAP 8 mmol/L 5-15 .CREAT EGFR(CKD-EPI) 49 L >60 Jan 28, 2024 05:52 AM [facility] TROPONIN I, HS Specimen Type: PLASMA Comment: Critical value previously reported on patient. Ordering Provider: BRANDON MEJIA Report Released Date/Time: Jan 27, 2024 09:15 PM Reporting Lab: [facility] [address] Performing Lab: [facility] [address] TROPONIN I, HS 128 HH <35 Jan 28, 2024 12:35 AM [facility] COVID-19 DIAGNOSTIC PANEL (CEPHEID) Specimen Type: NASOPHARYNGEAL Comment: Cepheid GeneXpert (618) Ordering Provider: LUCAS HAWTHORNE Report Released Date/Time: Jan 27, 2024 04:28 PM Reporting Lab: [facility] [address] Performing Lab: [facility] [address] COVID-19 (CEPHEID) Not Detected Not Detected Jan 28, 2024 12:35 AM [facility] TROPONIN I, HS Specimen Type: PLASMA Comment: Critical value previously reported on patient. Ordering Provider: BRANDON MEJIA Report Released Date/Time: Jan 27, 2024 09:15 PM Reporting Lab: [facility] [address] Performing Lab: [facility] [address] TROPONIN I, HS 158 HH <35 Jan 28, 2024 12:35 AM [facility] HEPARIN APTT Specimen Type: PLASMA Comment: Critical Value Reported To: Deena Oliveros PharmD 01/28/24 @0110 . Critical value report confirmed. Ordering Provider: NATALIE ORDOÑEZ Report Released Date/Time: Jan 27, 2024 07:18 PM Reporting Lab: [facility] [address] Performing Lab: [facility] [address] HEPARIN APTT 133.9 s HH 48.0-92.0 Jan 27, 2024 09:22 PM [facility] TROPONIN I, HS Specimen Type: PLASMA Comment: Critical value previously reported on patient. Ordering Provider: BASHIR CARVAJAL Report Released Date/Time: Jan 27, 2024 08:38 PM Reporting Lab: [facility] [address] Performing Lab: [facility] [address] TROPONIN I, HS 146 HH <35 Jan 27, 2024 06:52 PM [facility] TROPONIN I, HS Specimen Type: PLASMA Comment: Critical Value Reported To: Brandon Mejia MD 01/27/24 @[address] [place] [address]. Critical value report confirmed. Ordering Provider: BASHIR CARVAJAL Report Released Date/Time: Jan 27, 2024 04:54 PM Reporting Lab: [facility] [address] Performing Lab: [facility] [address] TROPONIN I, HS 136 HH <35 Jan 27, 2024 06:52 PM [facility] BASIC METABOLIC PANEL+MG Specimen Type: PLASMA No comment entered. Ordering Provider: BASHIR CARVAJAL Report Released Date/Time: Jan 27, 2024 04:54 PM Reporting Lab: [facility] [address] Performing Lab: [facility] [address] CREATININE 1.3 mg/dL H 0.7-1.2 UREA NITROGEN 30 mg/dL H 8-26 GLUCOSE 141 mg/dL H 70-100 SODIUM 142 mmol/L 136-145 POTASSIUM 3.4 mmol/L L 3.5-5.1 CHLORIDE 106 mmol/L 98-107 CO2 27 mmol/L 22-29 CALCIUM 8.8 mg/dL 8.4-10.2 MAGNESIUM 2.2 mg/dL 1.6-2.6 ANION GAP 9 mmol/L 5-15 .CREAT EGFR(CKD-EPI) 54 L >60 Jan 27, 2024 06:52 PM [facility] CBC Specimen Type: BLOOD No comment entered. Ordering Provider: BASHIR CARVAJAL Report Released Date/Time: Jan 27, 2024 04:54 PM Reporting Lab: [facility] [address] Performing Lab: [facility] [address] WBC 6.0 4.0-11.0 RBC 3.91 L 4.60-6.20 [...] Source Jan 28, 2024 03:[address] [facility] Jan 28, 2024 03:[address] [facility] Social History: Smoking Status (Most current) and [...] 14, 2023 11:30 AM VA-TOBACCO FORMER USER [facility] Tobacco Use History This section includes a history of the smoking, or tobacco-related health factors, that were collected on or before the date of the Encounter. The data comes from the [place] facility where the Encounter took place. Date/Time Smoking Status/Tobacco Use Comment F acility Dec 14, 2023 11:30 AM VA-TOBACCO QUIT 15 YRS OR MORE [facility] Oct 13, 2022 01:30 PM VA-TOBACCO FORMER USER [facility] Oct 13, 2022 01:30 PM VA-TOBACCO QUIT 15 YRS OR MORE [facility] Jul 27, 2021 10:00 AM VA-TOBACCO FORMER USER [facility] Jul 27, 2021 10:00 AM VA-TOBACCO QUIT 15 YRS OR MORE [facility] Jan 02, 2020 09:00 AM VA-TOBACCO FORMER USER [facility] Jan 02, 2020 09:00 AM VA-TOBACCO QUIT 15 YRS OR MORE [facility] Jul 21, 2018 03:00 PM VA-TOBACCO FORMER USER [facility] Jul 21, 2018 03:00 PM VA-TOBACCO QUIT 15 YRS OR MORE [facility] Dec 24, 2016 08:01 AM FORMER TOBACCO USER 7Y OR GREATE R [facility] Dec 23, 2015 08:23 AM FORMER TOBACCO USE >1Y <7Y [facility] Dec 26, 2014 10:32 AM FORMER TOBACCO USER 7Y OR GREATE R [facility] August 13, 2013 08:22 AM LIFETIME NON-TOBACCO USER [facility] August 30, 2006 08:38 AM FORMER TOBACCO USER 7Y OR GREATE R [facility] Advance Directives: All historical and current [...] August 30, 2006 ADVANCE DIRECTIVE ARGENIS CRAMER [facility] Pathology Reports: +/- 30 days of [...] COSIGNER: URGENCY: STATUS: COMPLETED $APHDR Reporting Lab: [facility] [CLIA# [id number]] [place] [address] - - - - - - - [...] - PATHOLOGY REPORT Accession No. [id number] - - - - - - - [...] - PATHOLOGY REPORT Accession No. [id number] - - - - - - - [...] 0.1 cm. The specimen is inked. CE. (D)[facility] MICROSCOPIC DESCRIPTION: Microscopic examination performed. CI. 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 STAFF PATHOLOGIST Signed Jan 06, 2024@11:16 Performing Laboratory: Surgical Pathology Report Performed By: [facility] [CLIA# [id number]] [place] [address] $FTR - - - - - - [...] - - MADYSON,GERI NUNEZ STANDARD FORM 515 ID:[id number] SEX:M :[id number] AGE: 88 LOC:[id number] PCP: Sariah Gomes MD /shelly/ JOSE REESE M.D. STAFF PATHOLOGIST Signed: 01/06/2024 11:16 JOSE REESE [facility]
--- OUTSIDE RECORDS SUMMARY | 2024-02-10 23:35 | XMS_ITS ---
[place] DAILY HOSPITALIZATION DATA [facility] Encounter Summary Created on: February 10, 2024 GERI COUGHLIN : 1935 Sex: Male Author Name [facility] [place] [facility] [place] [facility] [place] Address [address] [place] [address] Care Team Providers Care Entry Level Business Analyst Name Role Phone SARIAH GOMES Primary Care [...] PART A Sep 09, 2002 PART A [id number] JOAQUIN COUGHLIN S PATIENT MEDICARE (WNR) MEDICARE (M) PART B Sep 09, 2002 PART B [id number] JOAQUIN COUGHLIN S PATIENT MEDICARE (WNR) MEDICARE (M) PART A Sep 09, 2002 PART A [id number] JOAQUIN COUGHLIN S PATIENT MEDICARE (WNR) MEDICARE (M) PART B Sep 09, 2002 PART B [id number] JOAQUIN COUGHLIN S PATIENT Selected Encounter This section includes the information on record at [place] for the Encounter. Date/Time Encounter Type Encounter Description Reason Pro vider Source Jan 27, 2024 04:46 PM Inpatient Visit DAILY HOSPITALIZATION DATA [facility] Encounter Template Text not used by [place] Plan of Treatment: Future Appointments (+ 6 months) and Future Tests (+/- 45 days) The Plan of Treatment section includes future care activities for the patient from all [facility]. This section includes future appointments and future orders which are active, pending or scheduled. Future Appointments This section includes appointments that were scheduled to occur 6 months from the date of the Encounter, up to a maximum of 20 appointments. The data comes from all [facility]. Appointment Date/Time Appointment Type Appointme nt Facility Name Feb 21, 2024 10:00 AM AMBULATORY - MEDICINE [facility] Feb 24, 2024 12:15 PM AMBULATORY MEDICINE [facility] Feb 24, 2024 01:00 PM AMBULATORY MEDICINE [facility] Mar 02, 2024 01:00 PM AMBULATORY - REHAB MEDICIN E [facility] Active, Pending, and Scheduled Orders This section includes a listing of several types of active, pending, and scheduled orders, including clinic medications orders, diagnostic test orders, procedure orders and consult orders; where the start date of the order is 45 days before the date of the Encounter or 45 days after the date of theEncounter. The data comes from all [facility]. Test Date/Time Test Type Test Details Facility Name Jan 18, 2024 04:23 PM Consult Order COMMUNITY CARE-ECHOCARDIOGRAPHY Cons [employer] [facility] Jan 19, 2024 12:10 PM Consult Order COMMUNITY CARE-DERMATOLOGY [facility] [employer] [facility] Jan 28, 2024 02:00 AM Laboratory - Chemistry Order TROPONIN I, HS PLASMA STAT WC [facility] Jan 31, 2024 09:30 AM Consult Order CARDIAC REHAB OUTPT Cons Bedside [facility] Jan 31, 2024 10:13 AM Consult Order CARDIOLOGY INTERVENTIONAL CLINIC OUTPT [facility] [employer] [facility] Lab Results: +/- 30 days of the encounter This section includes the Chemistry and Hematology Lab Results on record with [place] for the patient. Radiology Reports and Pathology Reports are provided separately, in subsequent sections. Lab Results This section contains the Chemistry/Hematology Results that were resulted 30 days before or 30 daysafter the date of the Encounter. Date/Time Source Result Type Result - Unit Interpretation Reference Range Comment Jan 31, 2024 10:50 AM [facility] HEMOGLOBIN A1C Specimen Type: BLOOD Comment: [...] Jan 31, 2024 10:13 AM Reporting Lab: [facility] [phone] Performing Lab: [facility] [phone] HEMOGLOBIN A1C 5.4 4.0-6.0 Jan 31, 2024 10:50 AM [facility] LIPID PANEL,FASTING Specimen Type: PLASMA No comment entered. Ordering Provider: JULIET SMART Report Released Date/Time: Jan 31, 2024 10:13 AM Reporting Lab: [facility] [phone] Performing Lab: [facility] [address] CHOLESTEROL 125 mg/dL <199 TRIGLYCERIDE 95 mg/dL <149 .HDL 37 mg/dL L >40 LDL CALCULATION 69 mg/dL <99 VLDL CALCULATION 19 mg/dL <29 NON HDL CHOLESTEROL 88 mg/dL <129 Jan 31, 2024 07:29 AM [facility] CBC Specimen Type: BLOOD No comment entered. Ordering Provider: BASHIR CARVAJAL Report Released Date/Time: Jan 30, 2024 01:03 PM Reporting Lab: [facility] [phone] Performing Lab: [facility] [address] WBC 7.3 4.0-11.0 RBC 3.83 L 4.60-6.20 HGB 11.4 g/dL L 13.5-17.9 HCT 35.1 L 41.0-54.0 MCV 91.6 fL 80.0-100.0 MCH 29.8 pg 27.0-33.0 MCHC 32.5 g/dL 32.0-37.5 PLT 193 150-400 MPV 10.7 fL 9.1-13.0 RDW 12.2 11.5-14.5 Jan 31, 2024 07:29 AM [facility] BASIC METABOLIC PANEL+MG Specimen Type: PLASMA No comment entered. Ordering Provider: BASHIR CARVAJAL Report Released Date/Time: Jan 30, 2024 01:03 PM Reporting Lab: [facility] [phone] Performing Lab: [facility] [address] CREATININE 1.3 mg/dL H 0.7-1.2 UREA NITROGEN 24 mg/dL 8-26 GLUCOSE 91 mg/dL 70-100 SODIUM 138 mmol/L 136-145 POTASSIUM 4.1 mmol/L 3.5-5.1 CHLORIDE 108 mmol/L H 98-107 CO2 23 mmol/L 22-29 CALCIUM 8.8 mg/dL 8.4-10.2 MAGNESIUM 2.1 mg/dL 1.6-2.6 ANION GAP 7 mmol/L 5-15 .CREAT EGFR(CKD-EPI) 54 L >60 Jan 30, 2024 10:37 AM [facility] POC ACT Specimen Type: BLOOD No comment entered. Ordering Provider: RODO CHRISTY Report Released Date/Time: Jan 30, 2024 10:43 AM Reporting Lab: [facility] [phone] Performing Lab: [facility] [address] POC ACT 241 s H 84-139 Jan 30, 2024 10:08 AM [facility] POC ACT Specimen Type: BLOOD No comment entered. Ordering Provider: RODO CHRISTY Report Released Date/Time: Jan 30, 2024 10:14 AM Reporting Lab: [facility] [phone] Performing Lab: [facility] [address] POC ACT 289 s H 84-139 Jan 30, 2024 09:34 AM [facility] POC ACT Specimen Type: BLOOD No comment entered. Ordering Provider: RODO CHRISTY Report Released Date/Time: Jan 30, 2024 10:14 AM Reporting Lab: [facility] [phone] Performing Lab: [facility] [address] POC ACT 294 s H 84-139 Jan 30, 2024 05:37 AM [facility] HEPARIN APTT Specimen Type: PLASMA No comment entered. Ordering Provider: BASHIR CARVAJAL Report Released Date/Time: Jan 29, 2024 09:43 PM Reporting Lab: [facility] [phone] Performing Lab: [facility] [address] HEPARIN APTT 83.2 s 48.0-92.0 Jan 30, 2024 05:37 AM [facility] BASIC METABOLIC PANEL+MG Specimen Type: PLASMA No comment entered. Ordering Provider: BASHIR CARVAJAL Report Released Date/Time: Jan 29, 2024 12:19 PM Reporting Lab: [facility] [phone] Performing Lab: [facility] [address] CREATININE 1.4 mg/dL H 0.7-1.2 UREA NITROGEN 27 mg/dL H 8-26 GLUCOSE 95 mg/dL 70-100 SODIUM 139 mmol/L 136-145 POTASSIUM 4.2 mmol/L 3.5-5.1 CHLORIDE 109 mmol/L H 98-107 CO2 24 mmol/L 22-29 CALCIUM 9.0 mg/dL 8.4-10.2 MAGNESIUM 2.1 mg/dL 1.6-2.6 ANION GAP 6 mmol/L 5-15 .CREAT EGFR(CKD-EPI) 49 L >60 Jan 29, 2024 09:02 PM [facility] HEPARIN APTT Specimen Type: PLASMA Comment: Critical Value Reported To: Tomasa Delcid PharmD 01/29/24 @[address] [place] [address]. Critical value report confirmed. Ordering Provider: MERY SAMUEL Report Released Date/Time: Jan 29, 2024 03:00 PM Reporting Lab: [facility] [address] Performing Lab: [facility] [address] HEPARIN APTT 214.6 s HH 48.0-92.0 Jan 29, 2024 06:24 AM [facility] BASIC METABOLIC PANEL+MG Specimen Type: PLASMA No comment entered. Ordering Provider: BASHIR CARVAJAL Report Released Date/Time: Jan 28, 2024 04:36 PM Reporting Lab: [facility] [address] Performing Lab: [facility] [address] CREATININE 1.6 mg/dL H 0.7-1.2 UREA NITROGEN 27 mg/dL H 8-26 GLUCOSE 92 mg/dL 70-100 SODIUM 140 mmol/L 136-145 POTASSIUM 4.2 mmol/L 3.5-5.1 CHLORIDE 110 mmol/L H 98-107 CO2 25 mmol/L 22-29 CALCIUM 8.8 mg/dL 8.4-10.2 MAGNESIUM 2.1 mg/dL 1.6-2.6 ANION GAP 5 mmol/L 5-15 .CREAT EGFR(CKD-EPI) 42 L >60 Jan 28, 2024 05:54 AM [facility] EXTRA PURPLE TUBE Specimen Type: BLOOD No comment entered. Ordering Provider: RODO CHRISTY Report Released Date/Time: Jan 28, 2024 05:54 AM Reporting Lab: [facility] [address] Performing Lab: [facility] [phone] EXTRA PURPLE TUBE RECEIVED Jan 28, 2024 05:53 AM [facility] ALBUMIN Specimen Type: PLASMA No comment entered. Ordering Provider: BASHIR CARVAJAL Report Released Date/Time: Jan 27, 2024 04:49 PM Reporting Lab: [facility] [address] Performing Lab: [facility] [address] ALBUMIN 3.5 g/dL 3.5-5.2 Jan 28, 2024 05:53 AM [facility] BASIC METABOLIC PANEL+MG Specimen Type: PLASMA No comment entered. Ordering Provider: BASHIR CARVAJAL Report Released Date/Time: Jan 27, 2024 05:44 PM Reporting Lab: [facility] [address] Performing Lab: [facility] [address] CREATININE 1.4 mg/dL H 0.7-1.2 UREA NITROGEN 28 mg/dL H 8-26 GLUCOSE 92 mg/dL 70-100 SODIUM 140 mmol/L 136-145 POTASSIUM 4.4 mmol/L 3.5-5.1 CHLORIDE 109 mmol/L H 98-107 CO2 23 mmol/L 22-29 CALCIUM 8.8 mg/dL 8.4-10.2 MAGNESIUM 2.1 mg/dL 1.6-2.6 ANION GAP 8 mmol/L 5-15 .CREAT EGFR(CKD-EPI) 49 L >60 Jan 28, 2024 05:52 AM [facility] TROPONIN I, HS Specimen Type: PLASMA Comment: Critical value previously reported on patient. Ordering Provider: BRANDON MEJIA Report Released Date/Time: Jan 27, 2024 09:15 PM Reporting Lab: [facility] [address] Performing Lab: [facility] [address] TROPONIN I, HS 128 HH <35 Jan 28, 2024 12:35 AM [facility] COVID-19 DIAGNOSTIC PANEL (CEPHEID) Specimen Type: NASOPHARYNGEAL Comment: Cepheid GeneXpert (618) Ordering Provider: LUCAS HAWTHORNE Report Released Date/Time: Jan 27, 2024 04:28 PM Reporting Lab: [facility] [address] Performing Lab: [facility] [address] COVID-19 (CEPHEID) Not Detected Not Detected Jan 28, 2024 12:35 AM [facility] HEPARIN APTT Specimen Type: PLASMA Comment: Critical Value Reported To: Deena Oliveros PharmD 01/28/24 @0110 HV. Critical value report confirmed. Ordering Provider: NATALIE ORDOÑEZ Report Released Date/Time: Jan 27, 2024 07:18 PM Reporting Lab: [facility] [address] Performing Lab: [facility] [address] HEPARIN APTT 133.9 s HH 48.0-92.0 Jan 28, 2024 12:35 AM [facility] TROPONIN I, HS Specimen Type: PLASMA Comment: Critical value previously reported on patient. Ordering Provider: BRANDON MEJIA Report Released Date/Time: Jan 27, 2024 09:15 PM Reporting Lab: [facility] [address] Performing Lab: [facility] [address] TROPONIN I, HS 158 HH <35 Jan 27, 2024 09:22 PM [facility] TROPONIN I, HS Specimen Type: PLASMA Comment: Critical value previously reported on patient. Ordering Provider: BASHIR CARVAJAL Report Released Date/Time: Jan 27, 2024 08:38 PM Reporting Lab: [facility] [address] Performing Lab: [facility] [address] TROPONIN I, HS 146 HH <35 Jan 27, 2024 06:52 PM [facility] TROPONIN I, HS Specimen Type: PLASMA Comment: Critical Value Reported To: Brandon Mejia MD 01/27/24 @1950 KLM. Critical value report confirmed. Ordering Provider: BASHIR CARVAJAL Report Released Date/Time: Jan 27, 2024 04:54 PM Reporting Lab: [facility] [address] Performing Lab: [facility] [address] TROPONIN I, HS 136 HH <35 Jan 27, 2024 06:52 PM [facility] BASIC METABOLIC PANEL+MG Specimen Type: PLASMA No comment entered. Ordering Provider: BASHIR CARVAJAL Report Released Date/Time: Jan 27, 2024 04:54 PM Reporting Lab: [facility] [address] Performing Lab: [facility] [address] CREATININE 1.3 mg/dL H 0.7-1.2 UREA NITROGEN 30 mg/dL H 8-26 GLUCOSE 141 mg/dL H 70-100 SODIUM 142 mmol/L 136-145 POTASSIUM 3.4 mmol/L L 3.5-5.1 CHLORIDE 106 mmol/L 98-107 CO2 27 mmol/L 22-29 CALCIUM 8.8 mg/dL 8.4-10.2 MAGNESIUM 2.2 mg/dL 1.6-2.6 ANION GAP 9 mmol/L 5-15 .CREAT EGFR(CKD-EPI) 54 L >60 Jan 27, 2024 06:52 PM [facility] CBC Specimen Type: BLOOD No comment entered. Ordering Provider: BASHIR CARVAJAL Report Released Date/Time: Jan 27, 2024 04:54 PM Reporting Lab: [facility] [address] Performing Lab: [facility] [address] WBC 6.0 4.0-11.0 RBC 3.91 L 4.60-6.20 [...] and tobacco- related health factors from the [place] facility where the Encounter took place. Current Smoking Status This section includes the most current smoking, or tobacco-related health factor, from the [place] facility where the Encounter took place. Date/Time Current Smoking Status Comment Facil ity Dec 14, 2023 11:30 AM VA-TOBACCO FORMER USER [facility] Tobacco Use History This section includes a history of the smoking, or tobacco-related health factors, that were collected on or before the date of the Encounter. The data comes from the [place] facility where the Encounter took place. Date/Time Smoking Status/Tobacco Use Comment F acility Dec 14, 2023 11:30 AM VA-TOBACCO QUIT 15 YRS OR MORE [facility] Oct 13, 2022 01:30 PM VA-TOBACCO FORMER USER [facility] Oct 13, 2022 01:30 PM VA-TOBACCO QUIT 15 YRS OR MORE [facility] Jul 27, 2021 10:00 AM VA-TOBACCO FORMER USER [facility] Jul 27, 2021 10:00 AM VA-TOBACCO QUIT 15 YRS OR MORE [facility] Jan 02, 2020 09:00 AM VA-TOBACCO FORMER USER [facility] Jan 02, 2020 09:00 AM VA-TOBACCO QUIT 15 YRS OR MORE [facility] Jul 21, 2018 03:00 PM VA-TOBACCO FORMER USER [facility] Jul 21, 2018 03:00 PM VA-TOBACCO QUIT 15 YRS OR MORE [facility] Dec 24, 2016 08:01 AM FORMER TOBACCO USER 7Y OR GREATE R [facility] Dec 23, 2015 08:23 AM FORMER TOBACCO USE >1Y <7Y [facility] Dec 26, 2014 10:32 AM FORMER TOBACCO USER 7Y OR GREATE R [facility] August 13, 2013 08:22 AM LIFETIME NON-TOBACCO USER [facility] August 30, 2006 08:38 AM FORMER TOBACCO USER 7Y OR GREATE R [facility] Advance Directives: All historical and current Section Date Range: From patient's date of to the date document was created. This section includes ALL of a patient's completed or amended [place] Advance and Rescinded Directives. The entries below indicate that a directive exists for the patient, but an actual copy is not included with this document. The data comes from all [facility]. Date Advance Directives Provider Source August 30, 2006 ADVANCE DIRECTIVE [facility] Pathology Reports: +/- 30 days of [...] the Encounter. The data comes from all [place] treatment facilities. Date/Time Pathology Report Provider Source Jan 06, 2024 11:16 AM [facility] SURGICAL PATHOL OGY REPORT: LOCAL TITLE: LR SURGICAL PATHOLOGY REPORT STANDARD TITLE: PATHOLOGY REPORT DATE OF NOTE: JAN 06, 2024@11:16:39 ENTRY DATE: JAN 06, 2024@11:16:39 AUTHOR: JOSE REESE COSIGNER: URGENCY: STATUS: COMPLETED $APHDR Reporting Lab: [facility] [CLIA# [id number]] [place] [address] - - - - - - - [...] - PATHOLOGY REPORT Accession No. [id number] - - - - - - - [...] - PATHOLOGY REPORT Accession No. [id number] - - - - - - - [...] 0.1 cm. The specimen is inked. CE. [facility]: Microscopic examination performed. CI. 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 STAFF PATHOLOGIST Signed Jan 06, 2024@11:16 Performing Laboratory: Surgical Pathology Report Performed By: [facility] [CLIA# [id number]] [place] [address] $FTR - - - - - - [...] - - GERI COUGHLIN STANDARD FORM 515 ID:[id number] SEX:M :1935 AGE: 88 LOC:[id number] PCP: Sariah Gomes MD /shelly/ JOSE REESE M.D. STAFF PATHOLOGIST Signed: 01/06/2024 11:16 JOSE REESE [facility]
--- OUTSIDE RECORDS SUMMARY | 2024-02-10 23:35 | XMS_ITS | Encounter Summary ---
Author Name [facility] Organization [facility] Address [address] [place] [address] Care Team Providers Care Shot Bagger Name Role Phone SARIAH GOMES Primary Care [...] PART B Sep 09, 2002 PART B [id number] [phone] JOAQUIN COUGHLIN S PATIENT MEDICARE (WNR) MEDICARE (M) PART A Sep 09, 2002 PART A [id number] JOAQUIN COUGHLIN S PATIENT MEDICARE (WNR) MEDICARE (M) PART A Sep 09, 2002 PART A [id number] JOAQUIN COUGHLIN S PATIENT MEDICARE (WNR) MEDICARE (M) PART B Sep 09, 2002 PART B [id number] JOAQUIN COUGHLIN S PATIENT Selected Encounter This section includes the information on record at ID for the Encounter. Date/Time Encounter Type Encounter Description Reason Pro vider Source Jan 27, 2024 01:57 PM Inpatient Visit COMMUNITY CARE CONSULT IHE Encounter Template Text not used by ID Plan of Treatment: Future Appointments (+ 6 months) and Future Tests (+/- 45 days) The Plan of Treatment section includes future care activities for the patient from all [facility]. This section includes future appointments and future orders which are active, pending or scheduled. Future Appointments This section includes appointments that were scheduled to occur 6 months from the date of the Encounter, up to a maximum of 20 appointments. The data comes from all [facility]. Appointment Date/Time Appointment Type Appointme nt Facility Name Feb 21, 2024 10:00 AM AMBULATORY - MEDICINE [facility] Feb 24, 2024 12:15 PM AMBULATORY MEDICINE [facility] Feb 24, 2024 01:00 PM AMBULATORY MEDICINE [facility] Mar 02, 2024 01:00 PM AMBULATORY - REHAB MEDICIN E [facility] Active, Pending, and Scheduled Orders This section includes a listing of several types of active, pending, and scheduled orders, including clinic medications orders, diagnostic test orders, procedure orders and consult orders; where the start date of the order is 45 days before the date of the Encounter or 45 days after the date of theEncounter. The data comes from all [facility]. Test Date/Time Test Type Test Details Facility Name Jan 18, 2024 04:23 PM Consult Order COMMUNITY CARE-ECHOCARDIOGRAPHY Cons [facility] Jan 19, 2024 12:10 PM Consult Order COMMUNITY CARE-DERMATOLOGY [facility] [employer] Jan 28, 2024 02:00 AM Laboratory - Chemistry Order TROPONIN I, HS PLASMA STAT WC [facility] Jan 31, 2024 09:30 AM Consult Order CARDIAC REHAB OUTPT Cons Bedside [facility] Jan 31, 2024 10:13 AM Consult Order CARDIOLOGY INTERVENTIONAL CLINIC OUTPT Cons [employer] [facility] Lab Results: +/- 30 days of the encounter This section includes the Chemistry and Hematology Lab Results on record with ID for the patient. Radiology Reports and Pathology Reports are provided separately, in subsequent sections. Lab Results This section contains the Chemistry/Hematology Results that were resulted 30 days before or 30 daysafter the date of the Encounter. Date/Time Source Result Type Result - Unit Interpretation Reference Range Comment Jan 31, 2024 10:50 AM [facility] HEMOGLOBIN A1C Specimen Type: BLOOD Comment: Values [...] Jan 31, 2024 10:13 AM Reporting Lab: [facility] [address] Performing Lab: [facility] [address] HEMOGLOBIN A1C 5.4 4.0-6.0 Jan 31, 2024 10:50 AM [facility] LIPID PANEL,FASTING Specimen Type: PLASMA No comment entered. Ordering Provider: JULIET SMART Report Released Date/Time: Jan 31, 2024 10:13 AM Reporting Lab: [facility] [address] Performing Lab: [facility] [address] CHOLESTEROL 125 mg/dL <199 TRIGLYCERIDE 95 mg/dL <149 .HDL 37 mg/dL L >40 LDL CALCULATION 69 mg/dL <99 VLDL CALCULATION 19 mg/dL <29 NON HDL CHOLESTEROL 88 mg/dL <129 Jan 31, 2024 07:29 AM [facility] CBC Specimen Type: BLOOD No comment entered. Ordering Provider: BASHIR CARVAJAL Report Released Date/Time: Jan 30, 2024 01:03 PM Reporting Lab: [facility] [address] Performing Lab: [facility] [address] WBC 7.3 4.0-11.0 RBC 3.83 L 4.60-6.20 HGB 11.4 g/dL L 13.5-17.9 HCT 35.1 L 41.0-54.0 MCV 91.6 fL 80.0-100.0 MCH 29.8 pg 27.0-33.0 MCHC 32.5 g/dL 32.0-37.5 PLT 193 150-400 MPV 10.7 fL 9.1-13.0 RDW 12.2 11.5-14.5 Jan 31, 2024 07:29 AM [facility] BASIC METABOLIC PANEL+MG Specimen Type: PLASMA No comment entered. Ordering Provider: BASHIR CARVAJAL Report Released Date/Time: Jan 30, 2024 01:03 PM Reporting Lab: [facility] [address] Performing Lab: [facility] [address] CREATININE 1.3 mg/dL H 0.7-1.2 UREA NITROGEN 24 mg/dL 8-26 GLUCOSE 91 mg/dL 70-100 SODIUM 138 mmol/L 136-145 POTASSIUM 4.1 mmol/L 3.5-5.1 CHLORIDE 108 mmol/L H 98-107 CO2 23 mmol/L 22-29 CALCIUM 8.8 mg/dL 8.4-10.2 MAGNESIUM 2.1 mg/dL 1.6-2.6 ANION GAP 7 mmol/L 5-15 .CREAT EGFR(CKD-EPI) 54 L >60 Jan 30, 2024 10:37 AM [facility] POC ACT Specimen Type: BLOOD No comment entered. Ordering Provider: RODO CHRISTY Report Released Date/Time: Jan 30, 2024 10:43 AM Reporting Lab: [facility] [address] Performing Lab: [facility] [address] POC ACT 241 s H 84-139 Jan 30, 2024 10:08 AM [facility] POC ACT Specimen Type: BLOOD No comment entered. Ordering Provider: RODO CHRISTY Report Released Date/Time: Jan 30, 2024 10:14 AM Reporting Lab: [facility] [address] Performing Lab: [facility] [address] POC ACT 289 s H 84-139 Jan 30, 2024 09:34 AM [facility] POC ACT Specimen Type: BLOOD No comment entered. Ordering Provider: RODO CHRISTY Report Released Date/Time: Jan 30, 2024 10:14 AM Reporting Lab: [facility] [phone] Performing Lab: [facility] [address] POC ACT 294 s H 84-139 Jan 30, 2024 05:37 AM [facility] HEPARIN APTT Specimen Type: PLASMA No comment entered. Ordering Provider: BASHIR CARVAJAL Report Released Date/Time: Jan 29, 2024 09:43 PM Reporting Lab: [facility] [address] Performing Lab: [facility] [address] HEPARIN APTT 83.2 s 48.0-92.0 Jan 30, 2024 05:37 AM [facility] BASIC METABOLIC PANEL+MG Specimen Type: PLASMA No comment entered. Ordering Provider: BASHIR CARVAJAL Report Released Date/Time: Jan 29, 2024 12:19 PM Reporting Lab: [facility] [address] Performing Lab: [facility] [address] CREATININE 1.4 mg/dL H 0.7-1.2 UREA NITROGEN 27 mg/dL H 8-26 GLUCOSE 95 mg/dL 70-100 SODIUM 139 mmol/L 136-145 POTASSIUM 4.2 mmol/L 3.5-5.1 CHLORIDE 109 mmol/L H 98-107 CO2 24 mmol/L 22-29 CALCIUM 9.0 mg/dL 8.4-10.2 MAGNESIUM 2.1 mg/dL 1.6-2.6 ANION GAP 6 mmol/L 5-15 .CREAT EGFR(CKD-EPI) 49 L >60 Jan 29, 2024 09:02 PM [facility] HEPARIN APTT Specimen Type: PLASMA Comment: Critical Value Reported To: Tomasa Delcid PharmD 01/29/24 @[address] [place] [address]. Critical value report confirmed. Ordering Provider: MERY SAMUEL Report Released Date/Time: Jan 29, 2024 03:00 PM Reporting Lab: [facility] [address] Performing Lab: [facility] [address] HEPARIN APTT 214.6 s HH 48.0-92.0 Jan 29, 2024 06:24 AM [facility] BASIC METABOLIC PANEL+MG Specimen Type: PLASMA No comment entered. Ordering Provider: BASHIR CARVAJAL Report Released Date/Time: Jan 28, 2024 04:36 PM Reporting Lab: [facility] [address] Performing Lab: [facility] [address] CREATININE 1.6 mg/dL H 0.7-1.2 UREA NITROGEN 27 mg/dL H 8-26 GLUCOSE 92 mg/dL 70-100 SODIUM 140 mmol/L 136-145 POTASSIUM 4.2 mmol/L 3.5-5.1 CHLORIDE 110 mmol/L H 98-107 CO2 25 mmol/L 22-29 CALCIUM 8.8 mg/dL 8.4-10.2 MAGNESIUM 2.1 mg/dL 1.6-2.6 ANION GAP 5 mmol/L 5-15 .CREAT EGFR(CKD-EPI) 42 L >60 Jan 28, 2024 05:54 AM [facility] EXTRA PURPLE TUBE Specimen Type: BLOOD No comment entered. Ordering Provider: RODO CHRISTY Report Released Date/Time: Jan 28, 2024 05:54 AM Reporting Lab: [facility] [address] Performing Lab: [facility] [address] EXTRA PURPLE TUBE RECEIVED Jan 28, 2024 05:53 AM [facility] ALBUMIN Specimen Type: PLASMA No comment entered. Ordering Provider: BASHIR CARVAJAL Report Released Date/Time: Jan 27, 2024 04:49 PM Reporting Lab: [facility] [address] Performing Lab: [facility] [address] ALBUMIN 3.5 g/dL 3.5-5.2 Jan 28, 2024 05:53 AM [facility] BASIC METABOLIC PANEL+MG Specimen Type: PLASMA No comment entered. Ordering Provider: BASHIR CARVAJAL Report Released Date/Time: Jan 27, 2024 05:44 PM Reporting Lab: [facility] [address] Performing Lab: [facility] [address] CREATININE 1.4 mg/dL H 0.7-1.2 UREA NITROGEN 28 mg/dL H 8-26 GLUCOSE 92 mg/dL 70-100 SODIUM 140 mmol/L 136-145 POTASSIUM 4.4 mmol/L 3.5-5.1 CHLORIDE 109 mmol/L H 98-107 CO2 23 mmol/L 22-29 CALCIUM 8.8 mg/dL 8.4-10.2 MAGNESIUM 2.1 mg/dL 1.6-2.6 ANION GAP 8 mmol/L 5-15 .CREAT EGFR(CKD-EPI) 49 L >60 Jan 28, 2024 05:52 AM [facility] TROPONIN I, HS Specimen Type: PLASMA Comment: Critical value previously reported on patient. Ordering Provider: BRANDON MEJIA Report Released Date/Time: Jan 27, 2024 09:15 PM Reporting Lab: [facility] [address] Performing Lab: [facility] [address] TROPONIN I, HS 128 HH <35 Jan 28, 2024 12:35 AM [facility] COVID-19 DIAGNOSTIC PANEL (CEPHEID) Specimen Type: NASOPHARYNGEAL Comment: Cepheid GeneXpert (618) Ordering Provider: LUCAS HAWTHORNE Report Released Date/Time: Jan 27, 2024 04:28 PM Reporting Lab: [facility] [address] Performing Lab: [facility] [address] COVID-19 (CEPHEID) Not Detected Not Detected Jan 28, 2024 12:35 AM [facility] HEPARIN APTT Specimen Type: PLASMA Comment: Critical Value Reported To: Denea Oliveros PharmD 01/28/24 @0110 HV. Critical value report confirmed. Ordering Provider: NATALIE ORDOÑEZ Report Released Date/Time: Jan 27, 2024 07:18 PM Reporting Lab: [facility] [address] Performing Lab: [facility] [address] HEPARIN APTT 133.9 s HH 48.0-92.0 Jan 28, 2024 12:35 AM [facility] TROPONIN I, HS Specimen Type: PLASMA Comment: Critical value previously reported on patient. Ordering Provider: BRANDON MEJIA Report Released Date/Time: Jan 27, 2024 09:15 PM Reporting Lab: [facility] [address] Performing Lab: [facility] [address] TROPONIN I, HS 158 HH <35 Jan 27, 2024 09:22 PM [facility] TROPONIN I, HS Specimen Type: PLASMA Comment: Critical value previously reported on patient. Ordering Provider: BASHIR CARVAJAL Report Released Date/Time: Jan 27, 2024 08:38 PM Reporting Lab: [facility] [phone] Performing Lab: [facility] [address] TROPONIN I, HS 146 HH <35 Jan 27, 2024 06:52 PM [facility] TROPONIN I, HS Specimen Type: PLASMA Comment: Critical Value Reported To: Brandon Mejia MD 01/27/24 @1950 KLM. Critical value report confirmed. Ordering Provider: BASHIR CARVAJAL Report Released Date/Time: Jan 27, 2024 04:54 PM Reporting Lab: [facility] [address] Performing Lab: [facility] [address] TROPONIN I, HS 136 HH <35 Jan 27, 2024 06:52 PM [facility] BASIC METABOLIC PANEL+MG Specimen Type: PLASMA No comment entered. Ordering Provider: BASHIR CARVAJAL Report Released Date/Time: Jan 27, 2024 04:54 PM Reporting Lab: [facility] [address] Performing Lab: [facility] [address] CREATININE 1.3 mg/dL H 0.7-1.2 UREA NITROGEN 30 mg/dL H 8-26 GLUCOSE 141 mg/dL H 70-100 SODIUM 142 mmol/L 136-145 POTASSIUM 3.4 mmol/L L 3.5-5.1 CHLORIDE 106 mmol/L 98-107 CO2 27 mmol/L 22-29 CALCIUM 8.8 mg/dL 8.4-10.2 MAGNESIUM 2.2 mg/dL 1.6-2.6 ANION GAP 9 mmol/L 5-15 .CREAT EGFR(CKD-EPI) 54 L >60 Jan 27, 2024 06:52 PM [facility] CBC Specimen Type: BLOOD No comment entered. Ordering Provider: BASHIR CARVAJAL Report Released Date/Time: Jan 27, 2024 04:54 PM Reporting Lab: [facility] [address] Performing Lab: [facility] [address] WBC 6.0 4.0-11.0 RBC 3.91 L 4.60-6.20 [...] and tobacco- related health factors from the ID facility where the Encounter took place. Current Smoking Status This section includes the most current smoking, or tobacco-related health factor, from the ID facility where the Encounter took place. Date/Time Current Smoking Status Comment Facil ity Dec 14, 2023 11:30 AM VA-TOBACCO FORMER USER [facility] Tobacco Use History This section includes a history of the smoking, or tobacco-related health factors, that were collected on or before the date of the Encounter. The data comes from the ID facility where the Encounter took place. Date/Time Smoking Status/Tobacco Use Comment F acility Dec 14, 2023 11:30 AM VA-TOBACCO QUIT 15 YRS OR MORE [facility] Oct 13, 2022 01:30 PM VA-TOBACCO FORMER USER [facility] Oct 13, 2022 01:30 PM VA-TOBACCO QUIT 15 YRS OR MORE [facility] Jul 27, 2021 10:00 AM VA-TOBACCO FORMER USER [facility] Jul 27, 2021 10:00 AM VA-TOBACCO QUIT 15 YRS OR MORE [facility] Jan 02, 2020 09:00 AM VA-TOBACCO FORMER USER [facility] Jan 02, 2020 09:00 AM VA-TOBACCO QUIT 15 YRS OR MORE [facility] Jul 21, 2018 03:00 PM VA-TOBACCO FORMER USER [facility] Jul 21, 2018 03:00 PM VA-TOBACCO QUIT 15 YRS OR MORE [facility] Dec 24, 2016 08:01 AM FORMER TOBACCO USER 7Y OR GREATE R [facility] Dec 23, 2015 08:23 AM FORMER TOBACCO USE >1Y <7Y [facility] Dec 26, 2014 10:32 AM FORMER TOBACCO USER 7Y OR GREATE R [facility] August 13, 2013 08:22 AM LIFETIME NON-TOBACCO USER [facility] August 30, 2006 08:38 AM FORMER TOBACCO USER 7Y OR GREATE R [facility] Advance Directives: All historical and current Section Date Range: From patient's date of to the date document was created. This section includes ALL of a patient's completed or amended ID Advance and Rescinded Directives. The entries below indicate that a directive exists for the patient, but an actual copy is not included with this document. The data comes from all [facility]. Date Advance Directives Provider Source August 30, 2006 ADVANCE DIRECTIVE ARGENIS CRAMER [facility] Pathology Reports: +/- 30 days [...] the Encounter. The data comes from all ID treatment facilities. Date/Time Pathology Report Provider Source Jan 06, 2024 11:16 AM LR SURGICAL PATHOL OGY REPORT: LOCAL TITLE: LR SURGICAL PATHOLOGY REPORT STANDARD TITLE: PATHOLOGY REPORT DATE OF NOTE: JAN 06, 2024@11:16:39 ENTRY DATE: JAN 06, 2024@11:16:39 AUTHOR: JOSE REESE COSIGNER: URGENCY: STATUS: COMPLETED $APHDR Reporting Lab: [facility] [CLIA# [id number]] [place] [address] - - - - - - - [...] - PATHOLOGY REPORT Accession No. [id number] - - - - - - - [...] - PATHOLOGY REPORT Accession No. [id number] - - - - - - - [...] 0.1 cm. The specimen is inked. CE. (D[facility]: Microscopic examination performed. [...] Performing Laboratory: Surgical Pathology Report Performed By: [facility] [CLIA# [id number]] [place] [address] $FTR - - - - - - [...] - - - - - - - MADYSONEGRI STANDARD FORM 515 ID:[id number] SEX:M :[id number] AGE: 88 LOC:[id number] PCP: Sariah Gomes MD /shelly/ JOSE REESE M.D. STAFF PATHOLOGIST Signed: 01/06/2024 11:16 JOSE REESE [facility] Encounter Notes: All associated encounter notes This section contains the clinical notes associated to the Encounter. Date/Time Encounter Note(s) Provider Source Jan 27, 2024 01:58 PM SPECIAL EVENTS ASSISTANT REFER RAL NOTE: LOCAL TITLE: INTERFACILITY REFERRAL DIRECTOR OF RELIGIOUS LIFE. TRANSFER NOTE STANDARD TITLE: SPECIAL EVENTS ASSISTANT REFERRAL NOTE DATE OF NOTE: JAN 27, 2024@13:58 ENTRY DATE: JAN 27, 2024@14:00:48 AUTHOR: HORACE ALMANZA COSIGNER: URGENCY: STATUS: COMPLETED PATIENT ADDRESS: [address] [place] [id number] PHONE: NEXT OF KIN Name/Address: MIAH COUGHLIN [address] [place] [id number] Patient Elig: PRIMARY ELIGIBILTY CODE - SC LESS THAN 50% SC Disabilities (If Applicable): IMPAIRED HEARING 30% SC TINNITUS 10% SC Travel is authorized Patient/guardian consents to transfer. Referring physician certifies that benefit of transfer outways risk. To: [facility] From: Other Site: [facility] Requested Date/Time: JAN 27, 2024 14:00 Planned Arrival Date/Time: Jan@15:15 Current PCP: Primary Care Team: YANN REAVES *WH* Primary Care Provider: SARIAH GOMES No Associate Provider Assigned. Sending Facility Provider/Title/Pager: Dr. Rupert Khan @ [phone] Accepting Facility Provider/Designee/Pager: Dr. Smith Hawthorne @ pager [phone] Diagnosis: Unstable Angina Reason for Referral/Assessment: Request for transfer from [facility] does not have cardiology Advance Directive: unknown SUMMARY OF CARE: Allergies: Patient has answered NKA Vital Signs: Temp: - B.P. 157/83 Pulse: 47 Resp: - 02 Sats: 97% on RA Code Status: unknown Drug/Substance Overdose? * No Interventions done at the Referring Facility: Labs: troponin .18 X-rays: EKG: Medications Administered: IV Fluid/O2 Administered: IV Heparin Independent in Cares: Unknown Medically Stable: YES Behaviorally Stable: YES History of violence or agitation Unknown Surgically Stable: Not Applicable PATIENT RISK ASSESSMENT 1. Cognitive impairment present: No 2. At risk for wandering: No 3. Potential danger to self and/or others: No 4. Falls risk: No Level of Care Prior to Transfer: ER Level of Care Required at Receiving Site: Telemetry Step Down Mode of Transfer: Sending facility to arrange transport. Reports Requested/Sent: Health Summary, Med Profile, Inter-facility Transfer Form, Imaging Reports/Imaging CD, ER Reports, Progress Notes, Discharge Summary [place] will be admitted to , accepted by Dr. Hawthorne. Provided sending facility with number to accepting unit for nurse to nurse report, to be given on departure. Sending facility to arrange transport. /shelly/ HORACE ALMANZA, RN auto air conditioning installer [employer] Signed: 01/27/2024 14:10 Receipt Acknowledged By: 01/29/2024 15:54 /shelly/ LUCAS HAWTHORNE MD GIFT WRAPPER HORACE ALMANZA [facility]
--- OUTSIDE RECORDS SUMMARY | 2024-02-10 23:35 | XMS_ITS | Encounter Summary ---
Author Name [facility] [place] Organization [facility] [place] [place] Address [address] [place] [address] Care Team Providers Care Sheriff'S Detective Name Role Phone SARIAH GOMES Primary Care [...] PART A Sep 09, 2002 PART A [id number] [phone] JOAQUIN BOYKIN S PATIENT MEDICARE (WNR) MEDICARE (M) PART B Sep 09, 2002 PART B [id number] MADYSON,JOAQUIN S PATIENT MEDICARE (WNR) MEDICARE (M) PART A Sep 09, 2002 PART A [id number] JOAQUIN BOYKIN S PATIENT MEDICARE (WNR) MEDICARE (M) PART B Sep 09, 2002 PART B [id number] JOAQUIN BOYKIN S PATIENT Selected Encounter This section includes the information on record at [place] for the Encounter. Date/Time Encounter Type Encounter Description Reason Provider Source Jan 27, 2024 05:41 PM 1ST HOSP IP/OBS HIGH 75 CARDIOLOGY ICD-10-CM I21.4 Non-ST elevation (NSTEMI) myocardial infarction LUCAS HAWTHORNE [facility] Encounter Template Text not used by [place] Assessments - Encounter Diagnoses This section includes the primary and secondary diagnoses documented for the Encounter. Date/Time Primary/Secondary Diagnosis Diagnosis Name Provider Source Jan 29, 2024 03:46 PM PRIMARY Non-ST elevation (NSTEMI) myocardial infarction HAWTHORNELUCAS [facility] Plan of Treatment: Future Appointments (+ 6 months) and Future Tests (+/- 45 days) The Plan of Treatment section includes future care activities for the patient from all [place] [facility] This section includes future appointments and future orders which are active, pending or scheduled. Future Appointments This section includes appointments that were scheduled to occur 6 months from the date of the Encounter, up to a maximum of 20 appointments. The data comes from all [facility]. Appointment Date/Time Appointment Type Appointme nt Facility Name Feb 21, 2024 10:00 AM AMBULATORY - MEDICINE [facility] Feb 24, 2024 12:15 PM AMBULATORY - MEDICINE [facility] Feb 24, 2024 01:00 PM AMBULATORY - MEDICINE [facility] Mar 02, 2024 01:00 PM AMBULATORY - REHAB MEDICIN E [facility] Active, Pending, and Scheduled Orders This section includes a listing of several types of active, pending, and scheduled orders, including clinic medications orders, diagnostic test orders, procedure orders and consult orders; where the start date of the order is 45 days before the date of the Encounter or 45 days after the date of theEncounter. The data comes from all [facility]. Test Date/Time Test Type Test Details Facility Name Jan 18, 2024 04:23 PM Consult Order COMMUNITY CARE-ECHOCARDIOGRAPHY Cons Hospice Home Care Coordinator's Choice [facility] Jan 19, 2024 12:10 PM Consult Order COMMUNITY CARE-DERMATOLOGY Cons Hospice Home Care Coordinator's Choice [facility] Jan 28, 2024 02:00 AM Laboratory - Chemistry Order TROPONIN I, HS PLASMA STAT WC [facility] Jan 31, 2024 09:30 AM Consult Order CARDIAC REHAB OUTPT Cons Bedside [facility] Jan 31, 2024 10:13 AM Consult Order CARDIOLOGY INTERVENTIONAL CLINIC OUTPT Cons Hospice Home Care Coordinator's Choice [facility] Lab Results: +/- 30 days of the encounter This section includes the Chemistry and Hematology Lab Results on record with [place] for the patient. Radiology Reports and Pathology Reports are provided separately, in subsequent sections. Lab Results This section contains the Chemistry/Hematology Results that were resulted 30 days before or 30 daysafter the date of the Encounter. Date/Time Source Result Type Result - Unit Interpretation Reference Range Comment Jan 31, 2024 10:50 AM [facility] LIPID PANEL,FASTING Specimen Type: PLASMA No comment entered. Ordering Provider: JULIET SMART Report Released Date/Time: Jan 31, 2024 10:13 AM Reporting Lab: [facility] [phone] Performing Lab: [facility] [phone] CHOLESTEROL 125 mg/dL <199 TRIGLYCERIDE 95 mg/dL <149 .HDL 37 mg/dL L >40 LDL CALCULATION 69 mg/dL <99 VLDL CALCULATION 19 mg/dL <29 NON HDL CHOLESTEROL 88 mg/dL <129 Jan 31, 2024 10:50 AM [facility] HEMOGLOBIN A1C Specimen Type: BLOOD Comment: [...] Jan 31, 2024 10:13 AM Reporting Lab: [facility] [phone] Performing Lab: [facility] [phone] HEMOGLOBIN A1C 5.4 4.0-6.0 Jan 31, 2024 07:29 AM [facility] CBC Specimen Type: BLOOD No comment entered. Ordering Provider: BASHIR CARVAJAL Report Released Date/Time: Jan 30, 2024 01:03 PM Reporting Lab: [facility] [phone] Performing Lab: [facility] [phone] WBC 7.3 4.0-11.0 RBC 3.83 L 4.60-6.20 HGB 11.4 g/dL L 13.5-17.9 HCT 35.1 L 41.0-54.0 MCV 91.6 fL 80.0-100.0 MCH 29.8 pg 27.0-33.0 MCHC 32.5 g/dL 32.0-37.5 PLT 193 150-400 MPV 10.7 fL 9.1-13.0 RDW 12.2 11.5-14.5 Jan 31, 2024 07:29 AM [facility] BASIC METABOLIC PANEL+MG Specimen Type: PLASMA No comment entered. Ordering Provider: BASHIR CARVAJAL Report Released Date/Time: Jan 30, 2024 01:03 PM Reporting Lab: [facility] [phone] Performing Lab: [facility] [address] CREATININE 1.3 mg/dL H 0.7-1.2 UREA NITROGEN 24 mg/dL 8-26 GLUCOSE 91 mg/dL 70-100 SODIUM 138 mmol/L 136-145 POTASSIUM 4.1 mmol/L 3.5-5.1 CHLORIDE 108 mmol/L H 98-107 CO2 23 mmol/L 22-29 CALCIUM 8.8 mg/dL 8.4-10.2 MAGNESIUM 2.1 mg/dL 1.6-2.6 ANION GAP 7 mmol/L 5-15 .CREAT EGFR(CKD-EPI) 54 L >60 Jan 30, 2024 10:37 AM [facility] POC ACT Specimen Type: BLOOD No comment entered. Ordering Provider: RODO CHRISTY Report Released Date/Time: Jan 30, 2024 10:43 AM Reporting Lab: [facility] [phone] Performing Lab: [facility] [address] POC ACT 241 s H 84-139 Jan 30, 2024 10:08 AM [facility] POC ACT Specimen Type: BLOOD No comment entered. Ordering Provider: RODO CHRISTY Report Released Date/Time: Jan 30, 2024 10:14 AM Reporting Lab: [facility] [phone] Performing Lab: [facility] [address] POC ACT 289 s H 84-139 Jan 30, 2024 09:34 AM [facility] POC ACT Specimen Type: BLOOD No comment entered. Ordering Provider: RODO CHRISTY Report Released Date/Time: Jan 30, 2024 10:14 AM Reporting Lab: [facility] [phone] Performing Lab: [facility] [address] POC ACT 294 s H 84-139 Jan 30, 2024 05:37 AM [facility] HEPARIN APTT Specimen Type: PLASMA No comment entered. Ordering Provider: BASHIR CARVAJAL Report Released Date/Time: Jan 29, 2024 09:43 PM Reporting Lab: [facility] [phone] Performing Lab: [facility] [address] HEPARIN APTT 83.2 s 48.0-92.0 Jan 30, 2024 05:37 AM [facility] BASIC METABOLIC PANEL+MG Specimen Type: PLASMA No comment entered. Ordering Provider: BASHIR CARVAJAL Report Released Date/Time: Jan 29, 2024 12:19 PM Reporting Lab: [facility] [phone] Performing Lab: [facility] [phone] CREATININE 1.4 mg/dL H 0.7-1.2 UREA NITROGEN 27 mg/dL H 8-26 GLUCOSE 95 mg/dL 70-100 SODIUM 139 mmol/L 136-145 POTASSIUM 4.2 mmol/L 3.5-5.1 CHLORIDE 109 mmol/L H 98-107 CO2 24 mmol/L 22-29 CALCIUM 9.0 mg/dL 8.4-10.2 MAGNESIUM 2.1 mg/dL 1.6-2.6 ANION GAP 6 mmol/L 5-15 .CREAT EGFR(CKD-EPI) 49 L >60 Jan 29, 2024 09:02 PM [facility] HEPARIN APTT Specimen Type: PLASMA Comment: Critical Value Reported To: Tomasa Delcid PharmD 01/29/24 @[address] [place] [address]. Critical value report confirmed. Ordering Provider: MERY SAMUEL Report Released Date/Time: Jan 29, 2024 03:00 PM Reporting Lab: [facility] [phone] Performing Lab: [facility] [address] HEPARIN APTT 214.6 s HH 48.0-92.0 Jan 29, 2024 06:24 AM [facility] BASIC METABOLIC PANEL+MG Specimen Type: PLASMA No comment entered. Ordering Provider: BASHIR CARVAJAL Report Released Date/Time: Jan 28, 2024 04:36 PM Reporting Lab: [facility] [phone] Performing Lab: [facility] [phone] CREATININE 1.6 mg/dL H 0.7-1.2 UREA NITROGEN 27 mg/dL H 8-26 GLUCOSE 92 mg/dL 70-100 SODIUM 140 mmol/L 136-145 POTASSIUM 4.2 mmol/L 3.5-5.1 CHLORIDE 110 mmol/L H 98-107 CO2 25 mmol/L 22-29 CALCIUM 8.8 mg/dL 8.4-10.2 MAGNESIUM 2.1 mg/dL 1.6-2.6 ANION GAP 5 mmol/L 5-15 .CREAT EGFR(CKD-EPI) 42 L >60 Jan 28, 2024 05:54 AM [facility] EXTRA PURPLE TUBE Specimen Type: BLOOD No comment entered. Ordering Provider: RODO CHRISTY Report Released Date/Time: Jan 28, 2024 05:54 AM Reporting Lab: [facility] [phone] Performing Lab: [facility] [phone] EXTRA PURPLE TUBE RECEIVED Jan 28, 2024 05:53 AM [facility] ALBUMIN Specimen Type: PLASMA No comment entered. Ordering Provider: BASHIR CARVAJAL Report Released Date/Time: Jan 27, 2024 04:49 PM Reporting Lab: [facility] [address] Performing Lab: [facility] [address] ALBUMIN 3.5 g/dL 3.5-5.2 Jan 28, 2024 05:53 AM [facility] BASIC METABOLIC PANEL+MG Specimen Type: PLASMA No comment entered. Ordering Provider: BASHIR CARVAJAL Report Released Date/Time: Jan 27, 2024 05:44 PM Reporting Lab: [facility] [phone] Performing Lab: [facility] [address] CREATININE 1.4 mg/dL H 0.7-1.2 UREA NITROGEN 28 mg/dL H 8-26 GLUCOSE 92 mg/dL 70-100 SODIUM 140 mmol/L 136-145 POTASSIUM 4.4 mmol/L 3.5-5.1 CHLORIDE 109 mmol/L H 98-107 CO2 23 mmol/L 22-29 CALCIUM 8.8 mg/dL 8.4-10.2 MAGNESIUM 2.1 mg/dL 1.6-2.6 ANION GAP 8 mmol/L 5-15 .CREAT EGFR(CKD-EPI) 49 L >60 Jan 28, 2024 05:52 AM [facility] TROPONIN I, HS Specimen Type: PLASMA Comment: Critical value previously reported on patient. Ordering Provider: BRANDON MEJIA Report Released Date/Time: Jan 27, 2024 09:15 PM Reporting Lab: [facility] [phone] Performing Lab: [facility] [phone] TROPONIN I, HS 128 HH <35 Jan 28, 2024 12:35 AM [facility] COVID-19 DIAGNOSTIC PANEL (CEPHEID) Specimen Type: NASOPHARYNGEAL Comment: Cepheid GeneXpert (618) Ordering Provider: LUCAS HAWTHORNE Report Released Date/Time: Jan 27, 2024 04:28 PM Reporting Lab: [facility] [address] Performing Lab: [facility] [address] COVID-19 (CEPHEID) Not Detected Not Detected Jan 28, 2024 12:35 AM [facility] TROPONIN I, HS Specimen Type: PLASMA Comment: Critical value previously reported on patient. Ordering Provider: BRANDON MEJIA Report Released Date/Time: Jan 27, 2024 09:15 PM Reporting Lab: [facility] [address] Performing Lab: [facility] [address] TROPONIN I, HS 158 HH <35 Jan 28, 2024 12:35 AM [facility] HEPARIN APTT Specimen Type: PLASMA Comment: Critical Value Reported To: Deena Oliveros PharmD 01/28/24 @0110 . Critical value report confirmed. Ordering Provider: NATALIE ORDOÑEZ Report Released Date/Time: Jan 27, 2024 07:18 PM Reporting Lab: [facility] [address] Performing Lab: [facility] [address] HEPARIN APTT 133.9 s HH 48.0-92.0 Jan 27, 2024 09:22 PM [facility] TROPONIN I, HS Specimen Type: PLASMA Comment: Critical value previously reported on patient. Ordering Provider: BASHIR CARVAJAL Report Released Date/Time: Jan 27, 2024 08:38 PM Reporting Lab: [facility] [phone] Performing Lab: [facility] [address] TROPONIN I, HS 146 HH <35 Jan 27, 2024 06:52 PM [facility] TROPONIN I, HS Specimen Type: PLASMA Comment: Critical Value Reported To: Brandon Mejia MD 01/27/24 @[address] [place] [address]. Critical value report confirmed. Ordering Provider: BASHIR CARVAJAL Report Released Date/Time: Jan 27, 2024 04:54 PM Reporting Lab: [facility] [address] Performing Lab: [facility] [address] TROPONIN I, HS 136 HH <35 Jan 27, 2024 06:52 PM [facility] CBC Specimen Type: BLOOD No comment entered. Ordering Provider: BASHIR CARVAJAL Report Released Date/Time: Jan 27, 2024 04:54 PM Reporting Lab: [facility] [phone] Performing Lab: [facility] [address] WBC 6.0 4.0-11.0 RBC 3.91 L 4.60-6.20 HGB 12.1 g/dL L 13.5-17.9 HCT 36.5 L 41.0-54.0 MCV 93.4 fL 80.0-100.0 MCH 30.9 pg 27.0-33.0 MCHC 33.2 g/dL 32.0-37.5 PLT 177 150-400 MPV 10.7 fL 9.1-13.0 RDW 12.4 11.5-14.5 Jan 27, 2024 06:52 PM [facility] BASIC METABOLIC PANEL+MG Specimen Type: PLASMA No comment entered. Ordering Provider: BASHIR CARVAJAL Report Released Date/Time: Jan 27, 2024 04:54 PM Reporting Lab: [facility] [address] Performing Lab: [facility] [address] CREATININE 1.3 mg/dL H 0.7-1.2 UREA NITROGEN [...] and tobacco- related health factors from the [place] facility where the Encounter took place. Current Smoking Status This section includes the most current smoking, or tobacco-related health factor, from the [place] facility where the Encounter took place. Date/Time Current Smoking Status Comment Facil ity Dec 14, 2023 11:30 AM VA-TOBACCO QUIT 15 YRS OR MORE [facility] Tobacco Use History This section includes a history of the smoking, or tobacco-related health factors, that were collected on or before the date of the Encounter. The data comes from the [place] facility where the Encounter took place. Date/Time Smoking Status/Tobacco Use Comment F acility Dec 14, 2023 11:30 AM VA-TOBACCO QUIT 15 YRS OR MORE [facility] Oct 13, 2022 01:30 PM VA-TOBACCO FORMER USER [facility] Oct 13, 2022 01:30 PM VA-TOBACCO QUIT 15 YRS OR MORE [facility] Jul 27, 2021 10:00 AM VA-TOBACCO FORMER USER [facility] Jul 27, 2021 10:00 AM VA-TOBACCO QUIT 15 YRS OR MORE [facility] Jan 02, 2020 09:00 AM VA-TOBACCO FORMER USER [facility] Jan 02, 2020 09:00 AM VA-TOBACCO QUIT 15 YRS OR MORE [facility] Jul 21, 2018 03:00 PM VA-TOBACCO FORMER USER [facility] Jul 21, 2018 03:00 PM VA-TOBACCO QUIT 15 YRS OR MORE [facility] Dec 24, 2016 08:01 AM FORMER TOBACCO USER 7Y OR GREATE R [facility] Dec 23, 2015 08:23 AM FORMER TOBACCO USE >1Y <7Y [facility] Dec 26, 2014 10:32 AM FORMER TOBACCO USER 7Y OR GREATE R [facility] August 13, 2013 08:22 AM LIFETIME NON-TOBACCO USER [facility] August 30, 2006 08:38 AM FORMER TOBACCO USER 7Y OR GREATE R [facility] Advance Directives: All historical and current Section Date Range: From patient's date of to the date document was created. This section includes ALL of a patient's completed or amended [place] Advance and Rescinded Directives. The entries below indicate that a directive exists for the patient, but an actual copy is not included with this document. The data comes from all [place] facilities. Date Advance Directives Provider Source August 30, 2006 ADVANCE DIRECTIVE ARGENIS CRAMER [facility] Pathology Reports: +/- 30 days of the [...] the Encounter. The data comes from all [place] treatment facilities. Date/Time Pathology Report Provider Source Jan 06, 2024 11:16 AM [facility] OGY REPORT: LOCAL TITLE: LR SURGICAL PATHOLOGY REPORT STANDARD TITLE: PATHOLOGY REPORT DATE OF NOTE: JAN 06, 2024@11:16:39 ENTRY DATE: JAN 06, 2024@11:16:39 AUTHOR: JOSE REESE COSIGNER: URGENCY: STATUS: COMPLETED $APHDR Reporting Lab: [facility] [CLIA# [id number]] [place] [address] - - - - - - - [...] - PATHOLOGY REPORT Accession No. [id number] - - - - - - - [...] - PATHOLOGY REPORT Accession No. [id number] - - - - - - - [...] 0.1 cm. The specimen is inked. CE. (D)SMcCoy MICROSCOPIC DESCRIPTION: Microscopic examination performed. CI. 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 STAFF PATHOLOGIST Signed Jan 06, 2024@11:16 Performing Laboratory: Surgical Pathology Report Performed By: [facility] [CLIA# [id number]] [place] [address] $FTR - - - - - - [...] - - - - - - GERI BOYKIN STANDARD FORM 515 ID:[id number] SEX:M :1935 AGE: 88 LOC:[id number] PCP: Sariah Gomes MD /shelly/ JOSE REESE M.D. STAFF PATHOLOGIST Signed: 01/06/2024 11:16 JOSE REESE [facility] Encounter Notes: All associated encounter notes This section contains the clinical notes associated to the Encounter. Date/Time Encounter Note(s) Provider Source Jan 27, 2024 05:41 PM CARDIOLOGY ATTENDI NOTE: LOCAL TITLE: CARDIOLOGY ADMISSION STAFF NOTE STANDARD TITLE: CARDIOLOGY ATTENDING NOTE DATE OF NOTE: JAN 27, 2024@17:41 ENTRY DATE: JAN 27, 2024@17:41:53 AUTHOR: AMADOR LOMAX EXP COSIGNER: URGENCY: STATUS: COMPLETED CARDIOLOGY ADMISSION STAFF NOTE Has ADDENDA Chief complaint : NSTEMI Mr. Boykin is an 88-year-old with past medical history of hypertension, hyperlipidemia, CKD, hypothyroidism, dysphagia presented to medicine clinic on December 14, 2023 at which time he complained of some typical chest pain. He hence had a nuclear stress test which was notable for inferior and apical ischemia with Q waves in inferior leads with some kelly-infarct ischemia. He then presented to ED in [place] with chest pain and was found to have no new EKG changes however troponin was elevated to 0.18. Was started on heparin drip loaded with aspirin and transferred to [facility] for coronary angiogram. On arrival he was chest pain-free blood pressure 140/80, heart rate 50s, satting well on room air. He noted typical retrosternal chest pain occurring with minimal exertion just prior to this with episodes of chest pain at rest. At home he is just on HCTZ lisinopril for hypertension. Recommendations - Antiplatelet : s/p ASA 325, Daily ASA 81 - High intensity statin: Crestor: 20 mg / Lipitor 40mg - BB: No due to bradycardia - Nitrates: Imdur 30 - SAVANNA: : Can consider stopping RASPBERRY CHECKER HCTZ and placing patient on just SAVANNA inhibitor and amlodipine if necessary - AC: Hep gtt - NSAIDS: Contraindicated - TTE in AM - NPO on Tuesday night for angiogram on Tuesday - Needs cardiac rehab at discharge - A1c - Lipids -Troponin x 1 to establish baseline Seen and discussed with Dr. Hawthorne /shelly/ AMADOR LOMAX MD FLIGHT OPERATIONS COORDINATOR Signed: 01/27/2024 17:51 Receipt Acknowledged By: 01/29/2024 15:47 /shelly/ LUCAS HAWTHORNE MD MECHANICAL SUPERVISOR 01/29/2024 ADDENDUM STATUS: COMPLETED Is seen and discussed with the residents and the fellow agree with assessment and plan. He is admitted with worsening chest pain at rest and with exertion and recently abnormal stress test. EKG shows subtle ischemic changes in the anterolateral leads and mildly elevated cardiac biomarker, high- sensitivity troponin. Will initiate heparin drip with intent to revascularize the patient on Tuesday. Risks and benefits of the procedure were discussed with the patient and he is willing to proceed. Procedure will be expedited in case of ongoing chest pain hemodynamic instability or arrhythmias. He has mild CKD /shelly/ LUCAS HAWTHORNE MD MECHANICAL SUPERVISOR Signed: 01/29/2024 15:50 AMADOR LOMAX [facility]
--- OUTSIDE RECORDS SUMMARY | 2024-02-10 23:36 | XMS_ITS ---
[place] DAILY HOSPITALIZATION DATA [facility] Encounter Summary Created on: February 10, 2024 GERI COUGHLIN : 1935 Sex: Male Author Name [facility] [place] [facility] [place] Address [address] [place] [address] Care Team Providers Care Senior C Developer Name Role Phone SARIAH GOMES Primary [...] PART B Sep 09, 2002 PART B [id number] JOAQUIN COUGHLIN S PATIENT MEDICARE (WNR) MEDICARE (M) PART A Sep 09, 2002 PART A [id number] JOAQUIN COUGHLIN S PATIENT MEDICARE (WNR) MEDICARE (M) PART A Sep 09, 2002 PART A [id number] NULLJOAQUIN S PATIENT MEDICARE (WNR) MEDICARE (M) PART B Sep 09, 2002 PART B [id number] JOAQUIN COUGHLIN S PATIENT Selected Encounter This section includes the information on record at [place] for the Encounter. Date/Time Encounter Type Encounter Description Reason Pro vider Source Jan 29, 2024 05:20 PM Inpatient Visit DAILY HOSPITALIZATION DATA [facility] Encounter Template Text not used by [place] Plan of Treatment: Future Appointments (+ 6 months) and Future Tests (+/- 45 days) The Plan of Treatment section includes future care activities for the patient from all [facility]. This section includes future appointments and future orders which are active, pending or scheduled. Future Appointments This section includes appointments that were scheduled to occur 6 months from the date of the Encounter, up to a maximum of 20 appointments. The data comes from all [facility]. Appointment Date/Time Appointment Type Appointme nt Facility Name Feb 21, 2024 10:00 AM AMBULATORY - MEDICINE [facility] Feb 24, 2024 12:15 PM AMBULATORY MEDICINE [facility] Feb 24, 2024 01:00 PM AMBULATORY MEDICINE [facility] Mar 02, 2024 01:00 PM AMBULATORY - REHAB MEDICIN E [facility] Active, Pending, and Scheduled Orders This section includes a listing of several types of active, pending, and scheduled orders, including clinic medications orders, diagnostic test orders, procedure orders and consult orders; where the start date of the order is 45 days before the date of the Encounter or 45 days after the date of theEncounter. The data comes from all [facility]. Test Date/Time Test Type Test Details Facility Name Jan 18, 2024 04:23 PM Consult Order COMMUNITY CARE-ECHOCARDIOGRAPHY [facility] Jan 19, 2024 12:10 PM Consult Order COMMUNITY CARE-DERMATOLOGY [facility] Jan 28, 2024 02:00 AM Laboratory - Chemistry Order TROPONIN I, HS PLASMA STAT WC [facility] Jan 31, 2024 09:30 AM Consult Order CARDIAC REHAB OUTPT Cons Bedside [facility] Jan 31, 2024 10:13 AM Consult Order CARDIOLOGY INTERVENTIONAL CLINIC OUTPT [facility] Lab Results: +/- 30 days of the encounter This section includes the Chemistry and Hematology Lab Results on record with [place] for the patient. Radiology Reports and Pathology Reports are provided separately, in subsequent sections. Lab Results This section contains the Chemistry/Hematology Results that were resulted 30 days before or 30 daysafter the date of the Encounter. Date/Time Source Result Type Result - Unit Interpretation Reference Range Comment Jan 31, 2024 10:[address] [facility] HEMOGLOBIN A1C Specimen Type: BLOOD Comment: Values [...] Jan 31, 2024 10:13 AM Reporting Lab: [facility] [phone] Performing Lab: [facility] [address] HEMOGLOBIN A1C 5.4 4.0-6.0 Jan 31, 2024 10:[address] [facility] LIPID PANEL,FASTING Specimen Type: PLASMA No comment entered. Ordering Provider: JULIET SMART Report Released Date/Time: Jan 31, 2024 10:13 AM Reporting Lab: [facility] [address] Performing Lab: [facility] [address] CHOLESTEROL 125 mg/dL <199 TRIGLYCERIDE 95 mg/dL <149 .HDL 37 mg/dL L >40 LDL CALCULATION 69 mg/dL <99 VLDL CALCULATION 19 mg/dL <29 NON HDL CHOLESTEROL 88 mg/dL <129 Jan 31, 2024 07:[address] [facility] CBC Specimen Type: BLOOD No comment entered. Ordering Provider: BASHIR CARVAJAL Report Released Date/Time: Jan 30, 2024 01:03 PM Reporting Lab: [facility] [phone] Performing Lab: [facility] [address] WBC 7.3 4.0-11.0 RBC 3.83 L 4.60-6.20 HGB 11.4 g/dL L 13.5-17.9 HCT 35.1 L 41.0-54.0 MCV 91.6 fL 80.0-100.0 MCH 29.8 pg 27.0-33.0 MCHC 32.5 g/dL 32.0-37.5 PLT 193 150-400 MPV 10.7 fL 9.1-13.0 RDW 12.2 11.5-14.5 Jan 31, 2024 07:[address] [facility] BASIC METABOLIC PANEL+MG Specimen Type: PLASMA No comment entered. Ordering Provider: BASHIR CARVAJAL Report Released Date/Time: Jan 30, 2024 01:03 PM Reporting Lab: [facility] [phone] Performing Lab: [facility] [address] CREATININE 1.3 mg/dL H 0.7-1.2 UREA NITROGEN 24 mg/dL 8-26 GLUCOSE 91 mg/dL 70-100 SODIUM 138 mmol/L 136-145 POTASSIUM 4.1 mmol/L 3.5-5.1 CHLORIDE 108 mmol/L H 98-107 CO2 23 mmol/L 22-29 CALCIUM 8.8 mg/dL 8.4-10.2 MAGNESIUM 2.1 mg/dL 1.6-2.6 ANION GAP 7 mmol/L 5-15 .CREAT EGFR(CKD-EPI) 54 L >60 Jan 30, 2024 10:[address] [facility] POC ACT Specimen Type: BLOOD No comment entered. Ordering Provider: RODO CHRISTY Report Released Date/Time: Jan 30, 2024 10:43 AM Reporting Lab: [facility] [address] Performing Lab: [facility] [address] POC ACT 241 s H 84-139 Jan 30, 2024 10:[address] [facility] POC ACT Specimen Type: BLOOD No comment entered. Ordering Provider: RODO CHRISTY Report Released Date/Time: Jan 30, 2024 10:14 AM Reporting Lab: [facility] [address] Performing Lab: [facility] [address] POC ACT 289 s H 84-139 Jan 30, 2024 09:[address] [facility] POC ACT Specimen Type: BLOOD No comment entered. Ordering Provider: RODO CHRISTY Report Released Date/Time: Jan 30, 2024 10:14 AM Reporting Lab: [facility] [address] Performing Lab: [facility] [address] POC ACT 294 s H 84-139 Jan 30, 2024 05:[address] [facility] HEPARIN APTT Specimen Type: PLASMA No comment entered. Ordering Provider: BASHIR CARVAJAL Report Released Date/Time: Jan 29, 2024 09:43 PM Reporting Lab: [facility] [address] Performing Lab: [facility] [address] HEPARIN APTT 83.2 s 48.0-92.0 Jan 30, 2024 05:[address] [facility] BASIC METABOLIC PANEL+MG Specimen Type: PLASMA No comment entered. Ordering Provider: BASHIR CARVAJAL Report Released Date/Time: Jan 29, 2024 12:19 PM Reporting Lab: [facility] [address] Performing Lab: [facility] [address] CREATININE 1.4 mg/dL H 0.7-1.2 UREA NITROGEN 27 mg/dL H 8-26 GLUCOSE 95 mg/dL 70-100 SODIUM 139 mmol/L 136-145 POTASSIUM 4.2 mmol/L 3.5-5.1 CHLORIDE 109 mmol/L H 98-107 CO2 24 mmol/L 22-29 CALCIUM 9.0 mg/dL 8.4-10.2 MAGNESIUM 2.1 mg/dL 1.6-2.6 ANION GAP 6 mmol/L 5-15 .CREAT EGFR(CKD-EPI) 49 L >60 Jan 29, 2024 09:[address] [facility] HEPARIN APTT Specimen Type: PLASMA Comment: Critical Value Reported To: Tomasa Delcid PharmD 01/29/24 @[address] [place] [address]. Critical value report confirmed. Ordering Provider: MERY SAMUEL Report Released Date/Time: Jan 29, 2024 03:00 PM Reporting Lab: [facility] [address] Performing Lab: [facility] [address] HEPARIN APTT 214.6 s HH 48.0-92.0 Jan 29, 2024 06:[address] [facility] BASIC METABOLIC PANEL+MG Specimen Type: PLASMA No comment entered. Ordering Provider: BASHIR CARVAJAL Report Released Date/Time: Jan 28, 2024 04:36 PM Reporting Lab: [facility] [address] Performing Lab: [facility] [address] CREATININE 1.6 mg/dL H 0.7-1.2 UREA NITROGEN 27 mg/dL H 8-26 GLUCOSE 92 mg/dL 70-100 SODIUM 140 mmol/L 136-145 POTASSIUM 4.2 mmol/L 3.5-5.1 CHLORIDE 110 mmol/L H 98-107 CO2 25 mmol/L 22-29 CALCIUM 8.8 mg/dL 8.4-10.2 MAGNESIUM 2.1 mg/dL 1.6-2.6 ANION GAP 5 mmol/L 5-15 .CREAT EGFR(CKD-EPI) 42 L >60 Jan 28, 2024 05:[address] [facility] EXTRA PURPLE TUBE Specimen Type: BLOOD No comment entered. Ordering Provider: RODO CHRISTY Report Released Date/Time: Jan 28, 2024 05:54 AM Reporting Lab: [facility] [address] Performing Lab: [facility] [address] EXTRA PURPLE TUBE RECEIVED Jan 28, 2024 05:[address] [facility] ALBUMIN Specimen Type: PLASMA No comment entered. Ordering Provider: BASHIR CARVAJAL Report Released Date/Time: Jan 27, 2024 04:49 PM Reporting Lab: [facility] [address] Performing Lab: [facility] [address] ALBUMIN 3.5 g/dL 3.5-5.2 Jan 28, 2024 05:[address] [facility] BASIC METABOLIC PANEL+MG Specimen Type: PLASMA No comment entered. Ordering Provider: BASHIR CARVAJAL Report Released Date/Time: Jan 27, 2024 05:44 PM Reporting Lab: [facility] [address] Performing Lab: [facility] [address] CREATININE 1.4 mg/dL H 0.7-1.2 UREA NITROGEN 28 mg/dL H 8-26 GLUCOSE 92 mg/dL 70-100 SODIUM 140 mmol/L 136-145 POTASSIUM 4.4 mmol/L 3.5-5.1 CHLORIDE 109 mmol/L H 98-107 CO2 23 mmol/L 22-29 CALCIUM 8.8 mg/dL 8.4-10.2 MAGNESIUM 2.1 mg/dL 1.6-2.6 ANION GAP 8 mmol/L 5-15 .CREAT EGFR(CKD-EPI) 49 L >60 Jan 28, 2024 05:[address] [facility] TROPONIN I, HS Specimen Type: PLASMA Comment: Critical value previously reported on patient. Ordering Provider: BRANDON MEJIA Report Released Date/Time: Jan 27, 2024 09:15 PM Reporting Lab: [facility] [address] Performing Lab: [facility] [address] TROPONIN I, HS 128 HH <35 Jan 28, 2024 12:[address] [facility] COVID-19 DIAGNOSTIC PANEL (CEPHEID) Specimen Type: NASOPHARYNGEAL Comment: Cepheid GeneXpert (618) Ordering Provider: LUCAS HAWTHORNE Report Released Date/Time: Jan 27, 2024 04:28 PM Reporting Lab: [facility] [address] Performing Lab: [facility] [address] COVID-19 (CEPHEID) Not Detected Not Detected Jan 28, 2024 12:[address] [facility] HEPARIN APTT Specimen Type: PLASMA Comment: Critical Value Reported To: Deena Oliveros PharmD 01/28/24 @0110 HV. Critical value report confirmed. Ordering Provider: NATALIE ORDOÑEZ Report Released Date/Time: Jan 27, 2024 07:18 PM Reporting Lab: [facility] [address] Performing Lab: [facility] [address] HEPARIN APTT 133.9 s HH 48.0-92.0 Jan 28, 2024 12:[address] [facility] TROPONIN I, HS Specimen Type: PLASMA Comment: Critical value previously reported on patient. Ordering Provider: BRANDON MEJIA Report Released Date/Time: Jan 27, 2024 09:15 PM Reporting Lab: [facility] [address] Performing Lab: [facility] [address] TROPONIN I, HS 158 HH <35 Jan 27, 2024 09:[address] [facility] TROPONIN I, HS Specimen Type: PLASMA Comment: Critical value previously reported on patient. Ordering Provider: BASHIR CARVAJAL Report Released Date/Time: Jan 27, 2024 08:38 PM Reporting Lab: [facility] [address] Performing Lab: [facility] [address] TROPONIN I, HS 146 HH <35 Jan 27, 2024 06:[address] [facility] TROPONIN I, HS Specimen Type: PLASMA Comment: Critical Value Reported To: Brandon Mejia MD 01/27/24 @1950 [facility]. Critical value report confirmed. Ordering Provider: BASHIR CARVAJAL Report Released Date/Time: Jan 27, 2024 04:54 PM Reporting Lab: [facility] [address] Performing Lab: [facility] [address] TROPONIN I, HS 136 HH <35 Jan 27, 2024 06:[address] [facility] BASIC METABOLIC PANEL+MG Specimen Type: PLASMA No comment entered. Ordering Provider: BASHIR CARVAJAL Report Released Date/Time: Jan 27, 2024 04:54 PM Reporting Lab: [facility] [address] Performing Lab: [facility] [address] CREATININE 1.3 mg/dL H 0.7-1.2 UREA NITROGEN 30 mg/dL H 8-26 GLUCOSE 141 mg/dL H 70-100 SODIUM 142 mmol/L 136-145 POTASSIUM 3.4 mmol/L L 3.5-5.1 CHLORIDE 106 mmol/L 98-107 CO2 27 mmol/L 22-29 CALCIUM 8.8 mg/dL 8.4-10.2 MAGNESIUM 2.2 mg/dL 1.6-2.6 ANION GAP 9 mmol/L 5-15 .CREAT EGFR(CKD-EPI) 54 L >60 Jan 27, 2024 06:[address] [facility] CBC Specimen Type: BLOOD No comment entered. Ordering Provider: BASHIR CARVAJAL Report Released Date/Time: Jan 27, 2024 04:54 PM Reporting Lab: [facility] [address] Performing Lab: [facility] [address] WBC 6.0 4.0-11.0 RBC 3.91 L 4.60-6.20 [...] and tobacco- related health factors from the [place] facility where the Encounter took place. Current Smoking Status This section includes the most current smoking, or tobacco-related health factor, from the [place] facility where the Encounter took place. Date/Time Current Smoking Status Comment Facil ity Dec 14, 2023 11:30 AM VA-TOBACCO FORMER USER [facility] Tobacco Use History This section includes a history of the smoking, or tobacco-related health factors, that were collected on or before the date of the Encounter. The data comes from the [place] facility where the Encounter took place. Date/Time Smoking Status/Tobacco Use Comment F acility Dec 14, 2023 11:30 AM VA-TOBACCO QUIT [address] [facility] Oct 13, 2022 01:30 PM VA-TOBACCO FORMER USER [facility] Oct 13, 2022 01:30 PM VA-TOBACCO QUIT [address] [facility] Jul 27, 2021 10:00 AM VA-TOBACCO FORMER USER [facility] Jul 27, 2021 10:00 AM VA-TOBACCO QUIT [address] [facility] Jan 02, 2020 09:00 AM VA-TOBACCO FORMER USER [facility] Jan 02, 2020 09:00 AM VA-TOBACCO QUIT [address] [facility] Jul 21, 2018 03:00 PM VA-TOBACCO FORMER USER [facility] Jul 21, 2018 03:00 PM VA-TOBACCO QUIT [address] [facility] Dec 24, 2016 08:01 AM FORMER TOBACCO USER 7Y OR GREATE R [facility] Dec 23, 2015 08:23 AM FORMER TOBACCO USE >1Y <7Y [facility] Dec 26, 2014 10:32 AM FORMER TOBACCO USER 7Y OR GREATE R [facility] August 13, 2013 08:22 AM LIFETIME NON-TOBACCO USER [facility] August 30, 2006 08:38 AM FORMER TOBACCO USER 7Y OR GRE[address] R [facility] Advance Directives: All historical and current Section Date Range: From patient's date of to the date document was created. This section includes ALL of a patient's completed or amended [place] Advance and Rescinded Directives. The entries below indicate that a directive exists for the patient, but an actual copy is not included with this document. The data comes from all [facility]. Date Advance Directives Provider Source August 30, 2006 ADVANCE DIRECTIVE [facility] Pathology Reports: +/- 30 days [...] the Encounter. The data comes from all [place] treatment facilities. Date/Time Pathology Report Provider Source Jan 06, 2024 11:16 AM [facility] SURGICAL PATHOL OGY REPORT: LOCAL TITLE: LR SURGICAL PATHOLOGY REPORT STANDARD TITLE: PATHOLOGY REPORT DATE OF NOTE: JAN 06, 2024@11:16:39 ENTRY DATE: JAN 06, 2024@11:16:39 AUTHOR: JOSE REESE COSIGNER: URGENCY: STATUS: COMPLETED $APHDR Reporting Lab: [facility] [CLIA# [id number]] [place] [address] - - - - - - - [...] - PATHOLOGY REPORT Accession No. [id number] - - - - - - - [...] - PATHOLOGY REPORT Accession No. [id number] - - - - - - - [...] 0.1 cm. The specimen is inked. CE. [facility]: Microscopic examination performed. [...] Performing Laboratory: Surgical Pathology Report Performed By: [facility] [CLIA# [id number]] [place] [address] $FTR - - - - - - [...] - - GERI COUGHLIN STANDARD FORM 515 ID:[id number] SEX:M :[id number] AGE: 88 LOC:[id number] PCP: Sariah Gomes MD /shelly/ JOSE REESE M.D. STAFF PATHOLOGIST Signed: 01/06/2024 11:[address] [facility]
--- OUTSIDE RECORDS SUMMARY | 2024-02-10 23:36 | XMS_ITS ---
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 Date/Time Encounter Type Encounter Description Reason Pro vider Source Jan 28, 2024 06:48 PM Inpatient Visit DAILY HOSPITALIZATION DATA [facility] Encounter Template Text not used by [place] Plan of Treatment: Future Appointments (+ 6 months) and Future Tests (+/- 45 days) The Plan of Treatment section includes future care activities for the patient from all [facility]. This section includes future appointments and future orders which are active, pending or scheduled. Future Appointments This section includes appointments that were scheduled to occur 6 months from the date of the Encounter, up to a maximum of 20 appointments. The data comes from all [facility] Appointment Date/Time Appointment Type Appointme nt Facility Name Feb 21, 2024 10:00 AM AMBULATORY - MEDICINE [facility] Feb 24, 2024 12:15 PM AMBULATORY MEDICINE [facility] Feb 24, 2024 01:00 PM AMBULATORY MEDICINE [facility] Mar 02, 2024 01:00 PM AMBULATORY - REHAB MEDICIN [facility] Active, Pending, and Scheduled Orders This section includes a listing of several types of active, pending, and scheduled orders, including clinic medications orders, diagnostic test orders, procedure orders and consult orders; where the start date of the order is 45 days before the date of the Encounter or 45 days after the date of theEncounter. The data comes from all [facility] Test Date/Time Test Type Test Details Facility Name Jan 18, 2024 04:23 PM Consult Order COMMUNITY CARE-ECHOCARDIOGRAPHY Cons [facility] Jan 19, 2024 12:10 PM Consult Order COMMUNITY CARE-DERMATOLOGY [facility] [employer] [facility] Jan 28, 2024 02:00 AM Laboratory - Chemistry Order TROPONIN I, HS PLASMA STAT WC [facility] Jan 31, 2024 09:30 AM Consult Order CARDIAC REHAB OUTPT Cons Bedside [facility] Jan 31, 2024 10:13 AM Consult Order CARDIOLOGY INTERVENTIONAL CLINIC OUTPT Cons [employer] [employer] [facility] Lab Results: +/- 30 days of the encounter This section includes the Chemistry and Hematology Lab Results on record with [place] for the patient. Radiology Reports and Pathology Reports are provided separately, in subsequent sections. Lab Results This section contains the Chemistry/Hematology Results that were resulted 30 days before or 30 daysafter the date of the Encounter. Date/Time Source Result Type Result - Unit Interpretation Reference Range Comment Jan 31, 2024 10:50 AM [facility] HEMOGLOBIN A1C Specimen Type: BLOOD Comment: [...] Jan 31, 2024 10:13 AM Reporting Lab: [facility] [phone] Performing Lab: [facility] [phone] HEMOGLOBIN A1C 5.4 4.0-6.0 Jan 31, 2024 10:50 AM [facility] LIPID PANEL,FASTING Specimen Type: PLASMA No comment entered. Ordering Provider: JULIET SMART Report Released Date/Time: Jan 31, 2024 10:13 AM Reporting Lab: [facility] [phone] Performing Lab: [facility] [address] CHOLESTEROL 125 mg/dL <199 TRIGLYCERIDE 95 mg/dL <149 .HDL 37 mg/dL L >40 LDL CALCULATION 69 mg/dL <99 VLDL CALCULATION 19 mg/dL <29 NON HDL CHOLESTEROL 88 mg/dL <129 Jan 31, 2024 07:29 AM [facility] CBC Specimen Type: BLOOD No comment entered. Ordering Provider: BASHIR CARVAJAL Report Released Date/Time: Jan 30, 2024 01:03 PM Reporting Lab: [facility] [address] Performing Lab: [facility] [phone] WBC 7.3 4.0-11.0 RBC 3.83 L 4.60-6.20 HGB 11.4 g/dL L 13.5-17.9 HCT 35.1 L 41.0-54.0 MCV 91.6 fL 80.0-100.0 MCH 29.8 pg 27.0-33.0 MCHC 32.5 g/dL 32.0-37.5 PLT 193 150-400 MPV 10.7 fL 9.1-13.0 RDW 12.2 11.5-14.5 Jan 31, 2024 07:29 AM [facility] BASIC METABOLIC PANEL+MG Specimen Type: PLASMA No comment entered. Ordering Provider: BASHIR CARVAJAL Report Released Date/Time: Jan 30, 2024 01:03 PM Reporting Lab: [facility] [phone] Performing Lab: [facility] [phone] CREATININE 1.3 mg/dL H 0.7-1.2 UREA NITROGEN 24 mg/dL 8-26 GLUCOSE 91 mg/dL 70-100 SODIUM 138 mmol/L 136-145 POTASSIUM 4.1 mmol/L 3.5-5.1 CHLORIDE 108 mmol/L H 98-107 CO2 23 mmol/L 22-29 CALCIUM 8.8 mg/dL 8.4-10.2 MAGNESIUM 2.1 mg/dL 1.6-2.6 ANION GAP 7 mmol/L 5-15 .CREAT EGFR(CKD-EPI) 54 L >60 Jan 30, 2024 10:37 AM [facility] POC ACT Specimen Type: BLOOD No comment entered. Ordering Provider: RODO CHRISTY Report Released Date/Time: Jan 30, 2024 10:43 AM Reporting Lab: [facility] [phone] Performing Lab: [facility] [address] POC ACT 241 s H 84-139 Jan 30, 2024 10:08 AM [facility] POC ACT Specimen Type: BLOOD No comment entered. Ordering Provider: RODO CHRISTY Report Released Date/Time: Jan 30, 2024 10:14 AM Reporting Lab: [facility] [phone] Performing Lab: [facility] [address] POC ACT 289 s H 84-139 Jan 30, 2024 09:34 AM [facility] POC ACT Specimen Type: BLOOD No comment entered. Ordering Provider: RODO CHRISTY Report Released Date/Time: Jan 30, 2024 10:14 AM Reporting Lab: [facility] [phone] Performing Lab: [facility] [address] POC ACT 294 s H 84-139 Jan 30, 2024 05:37 AM [facility] HEPARIN APTT Specimen Type: PLASMA No comment entered. Ordering Provider: BASHIR CARVAJAL Report Released Date/Time: Jan 29, 2024 09:43 PM Reporting Lab: [facility] [phone] Performing Lab: [facility] [address] HEPARIN APTT 83.2 s 48.0-92.0 Jan 30, 2024 05:37 AM [facility] BASIC METABOLIC PANEL+MG Specimen Type: PLASMA No comment entered. Ordering Provider: BASHIR CARVAJAL Report Released Date/Time: Jan 29, 2024 12:19 PM Reporting Lab: [facility] [phone] Performing Lab: [facility] [phone] CREATININE 1.4 mg/dL H 0.7-1.2 UREA NITROGEN 27 mg/dL H 8-26 GLUCOSE 95 mg/dL 70-100 SODIUM 139 mmol/L 136-145 POTASSIUM 4.2 mmol/L 3.5-5.1 CHLORIDE 109 mmol/L H 98-107 CO2 24 mmol/L 22-29 CALCIUM 9.0 mg/dL 8.4-10.2 MAGNESIUM 2.1 mg/dL 1.6-2.6 ANION GAP 6 mmol/L 5-15 .CREAT EGFR(CKD-EPI) 49 L >60 Jan 29, 2024 09:02 PM [facility] HEPARIN APTT Specimen Type: PLASMA Comment: Critical Value Reported To: Tomasa Delcid PharmD 01/29/24 @[address] [place] [address]. Critical value report confirmed. Ordering Provider: MERY SAMUEL Report Released Date/Time: Jan 29, 2024 03:00 PM Reporting Lab: [facility] [phone] Performing Lab: [facility] [phone] HEPARIN APTT 214.6 s HH 48.0-92.0 Jan 29, 2024 06:24 AM [facility] BASIC METABOLIC PANEL+MG Specimen Type: PLASMA No comment entered. Ordering Provider: BASHIR CARVAJAL Report Released Date/Time: Jan 28, 2024 04:36 PM Reporting Lab: [facility] [phone] Performing Lab: [facility] [phone] CREATININE 1.6 mg/dL H 0.7-1.2 UREA NITROGEN 27 mg/dL H 8-26 GLUCOSE 92 mg/dL 70-100 SODIUM 140 mmol/L 136-145 POTASSIUM 4.2 mmol/L 3.5-5.1 CHLORIDE 110 mmol/L H 98-107 CO2 25 mmol/L 22-29 CALCIUM 8.8 mg/dL 8.4-10.2 MAGNESIUM 2.1 mg/dL 1.6-2.6 ANION GAP 5 mmol/L 5-15 .CREAT EGFR(CKD-EPI) 42 L >60 Jan 28, 2024 05:54 AM [facility] EXTRA PURPLE TUBE Specimen Type: BLOOD No comment entered. Ordering Provider: RODO CHRISTY Report Released Date/Time: Jan 28, 2024 05:54 AM Reporting Lab: [facility] [phone] Performing Lab: [facility] [phone] EXTRA PURPLE TUBE RECEIVED Jan 28, 2024 05:53 AM [facility] ALBUMIN Specimen Type: PLASMA No comment entered. Ordering Provider: BASHIR CARVAJAL Report Released Date/Time: Jan 27, 2024 04:49 PM Reporting Lab: [facility] [address] Performing Lab: [facility] [phone] ALBUMIN 3.5 g/dL 3.5-5.2 Jan 28, 2024 05:53 AM [facility] BASIC METABOLIC PANEL+MG Specimen Type: PLASMA No comment entered. Ordering Provider: BASHIR CARVAJAL Report Released Date/Time: Jan 27, 2024 05:44 PM Reporting Lab: [facility] [phone] Performing Lab: [facility] [phone] CREATININE 1.4 mg/dL H 0.7-1.2 UREA NITROGEN 28 mg/dL H 8-26 GLUCOSE 92 mg/dL 70-100 SODIUM 140 mmol/L 136-145 POTASSIUM 4.4 mmol/L 3.5-5.1 CHLORIDE 109 mmol/L H 98-107 CO2 23 mmol/L 22-29 CALCIUM 8.8 mg/dL 8.4-10.2 MAGNESIUM 2.1 mg/dL 1.6-2.6 ANION GAP 8 mmol/L 5-15 .CREAT EGFR(CKD-EPI) 49 L >60 Jan 28, 2024 05:52 AM [facility] TROPONIN I, HS Specimen Type: PLASMA Comment: Critical value previously reported on patient. Ordering Provider: BRANDON MEJIA Report Released Date/Time: Jan 27, 2024 09:15 PM Reporting Lab: [facility] [phone] Performing Lab: [facility] [phone] TROPONIN I, HS 128 HH <35 Jan 28, 2024 12:35 AM [facility] COVID-19 DIAGNOSTIC PANEL (CEPHEID) Specimen Type: NASOPHARYNGEAL Comment: Cepheid GeneXpert (618) Ordering Provider: LUCAS HAWTHORNE Report Released Date/Time: Jan 27, 2024 04:28 PM Reporting Lab: [facility] [phone] Performing Lab: [facility] [phone] COVID-19 (CEPHEID) Not Detected Not Detected Jan 28, 2024 12:35 AM [facility] TROPONIN I, HS Specimen Type: PLASMA Comment: Critical value previously reported on patient. Ordering Provider: BRANDON MEJIA Report Released Date/Time: Jan 27, 2024 09:15 PM Reporting Lab: [facility] [phone] Performing Lab: [facility] [address] TROPONIN I, HS 158 HH <35 Jan 28, 2024 12:35 AM [facility] HEPARIN APTT Specimen Type: PLASMA Comment: Critical Value Reported To: Deena Oliveros PharmD 01/28/24 @0110 HV. Critical value report confirmed. Ordering Provider: NATALIE ORDOÑEZ Report Released Date/Time: Jan 27, 2024 07:18 PM Reporting Lab: [facility] [address] Performing Lab: [facility] [address] HEPARIN APTT 133.9 s HH 48.0-92.0 Jan 27, 2024 09:22 PM [facility] TROPONIN I, HS Specimen Type: PLASMA Comment: Critical value previously reported on patient. Ordering Provider: BASHIR CARVAJAL Report Released Date/Time: Jan 27, 2024 08:38 PM Reporting Lab: [facility] [phone] Performing Lab: [facility] [phone] TROPONIN I, HS 146 HH <35 Jan 27, 2024 06:52 PM [facility] TROPONIN I, HS Specimen Type: PLASMA Comment: Critical Value Reported To: Brandon Mejia MD 01/27/24 @1950 KLM. Critical value report confirmed. Ordering Provider: BASHIR CARVAJAL Report Released Date/Time: Jan 27, 2024 04:54 PM Reporting Lab: [facility] [phone] Performing Lab: [facility] [phone] TROPONIN I, HS 136 HH <35 Jan 27, 2024 06:52 PM [facility] BASIC METABOLIC PANEL+MG Specimen Type: PLASMA No comment entered. Ordering Provider: BASHIR CARVAJAL Report Released Date/Time: Jan 27, 2024 04:54 PM Reporting Lab: [facility] [phone] Performing Lab: [facility] [address] CREATININE 1.3 mg/dL H 0.7-1.2 UREA NITROGEN 30 mg/dL H 8-26 GLUCOSE 141 mg/dL H 70-100 SODIUM 142 mmol/L 136-145 POTASSIUM 3.4 mmol/L L 3.5-5.1 CHLORIDE 106 mmol/L 98-107 CO2 27 mmol/L 22-29 CALCIUM 8.8 mg/dL 8.4-10.2 MAGNESIUM 2.2 mg/dL 1.6-2.6 ANION GAP 9 mmol/L 5-15 .CREAT EGFR(CKD-EPI) 54 L >60 Jan 27, 2024 06:52 PM [facility] CBC Specimen Type: BLOOD No comment entered. Ordering Provider: BASHIR CARVAJAL Report Released Date/Time: Jan 27, 2024 04:54 PM Reporting Lab: [facility] [phone] Performing Lab: [facility] [address] WBC 6.0 4.0-11.0 RBC 3.91 L 4.60-6.20 [...] Source Jan 28, 2024 03:42 AM 0 [facility] Jan 28, 2024 03:25 AM [facility] Social History: Smoking Status (Most current) and Tobacco Use (All prior to encounter date) This section includes the most current, and the historical, smoking and tobacco- related health factors from the [place] facility where the Encounter took place. Current Smoking Status This section includes the most current smoking, or tobacco-related health factor, from the [place] facility where the Encounter took place. Date/Time Current Smoking Status Comment Facil ity Dec 14, 2023 11:30 AM VA-TOBACCO FORMER USER [facility] Tobacco Use History This section includes a history of the smoking, or tobacco-related health factors, that were collected on or before the date of the Encounter. The data comes from the [place] facility where the Encounter took place. Date/Time Smoking Status/Tobacco Use Comment F acility Dec 14, 2023 11:30 AM VA-TOBACCO QUIT 15 YRS OR MORE [facility] Oct 13, 2022 01:30 PM VA-TOBACCO FORMER USER [facility] Oct 13, 2022 01:30 PM VA-TOBACCO QUIT 15 YRS OR MORE [facility] Jul 27, 2021 10:00 AM VA-TOBACCO FORMER USER [facility] Jul 27, 2021 10:00 AM VA-TOBACCO QUIT 15 YRS OR MORE [facility] Jan 02, 2020 09:00 AM VA-TOBACCO FORMER USER [facility] Jan 02, 2020 09:00 AM VA-TOBACCO QUIT 15 YRS OR MORE [facility] Jul 21, 2018 03:00 PM VA-TOBACCO FORMER USER [facility] Jul 21, 2018 03:00 PM VA-TOBACCO QUIT 15 YRS OR MORE [facility] Dec 24, 2016 08:01 AM FORMER TOBACCO USER 7Y OR GREATE R [facility] Dec 23, 2015 08:23 AM FORMER TOBACCO USE >1Y <7Y [facility] Dec 26, 2014 10:32 AM FORMER TOBACCO USER 7Y OR GREATE R [facility] August 13, 2013 08:22 AM LIFETIME NON-TOBACCO USER [facility] August 30, 2006 08:38 AM FORMER TOBACCO USER 7Y OR GREATE R [facility] Advance Directives: All historical and current Section Date Range: From patient's date of to the date document was created. This section includes ALL of a patient's completed or amended [place] Advance and Rescinded Directives. The entries below indicate that a directive exists for the patient, but an actual copy is not included with this document. The data comes from all [place] facilities. Date Advance Directives Provider Source August [...] the Encounter. The data comes from all [place] treatment facilities. Date/Time Pathology Report Provider Source Jan 06, 2024 11:16 AM [facility] REPORT: LOCAL TITLE: [facility] SURGICAL PATHOLOGY REPORT STANDARD TITLE: PATHOLOGY REPORT DATE OF NOTE: JAN 06, 2024@11:16:39 ENTRY DATE: JAN 06, 2024@11:16:39 AUTHOR: JOSE REESE COSIGNER: URGENCY: STATUS: COMPLETED $APHDR Reporting Lab: [facility] [CLIA# [id number]] [place] [address] - - - - - - - [...] - PATHOLOGY REPORT Accession No. [id number] - - - - - - - [...] - PATHOLOGY REPORT Accession No. [id number] - - - - - - - [...] 0.1 cm. The specimen is inked. CE. (D[place] [place] DESCRIPTION: Microscopic examination performed. CI. 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 STAFF PATHOLOGIST Signed Jan 06, 2024@11:16 Performing Laboratory: Surgical Pathology Report Performed By: [facility] [CLIA# [id number]] [place] [address] $FTR - - - - - - [...] - - GERI COUGHLIN STANDARD FORM 515 ID:[id number] SEX:M :1935 AGE: 88 LOC:[id number] PCP: Sariah Gomes MD /shelly/ JOSE REESE M.D. STAFF PATHOLOGIST Signed: 01/06/2024 11:16 JOSE REESE [facility]
--- OUTSIDE RECORDS SUMMARY | 2024-02-10 23:36 | XMS_ITS | Encounter Summary ---
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 Date/Time Encounter Type Encounter Description Reason Pro vider Source Jan 28, 2024 01:00 AM Inpatient Visit ADMIN PAT ACTIVTIES (MASNONCT) SYSTEM,CIS-ARK IHE Encounter Template Text not used by [place] Plan of Treatment: Future Appointments (+ 6 months) and Future Tests (+/- 45 days) The Plan of Treatment section includes future care activities for the patient [facility] This section includes future appointments and future orders which are active, pending or scheduled. Future Appointments This section includes appointments that were scheduled to occur 6 months from the date of the Encounter, up to a maximum of 20 appointments. The data comes from all [facility]. Appointment Date/Time Appointment Type Appointme nt Facility Name Feb 21, 2024 10:00 AM AMBULATORY - MEDICINE [facility] Feb 24, 2024 12:15 PM AMBULATORY [facility] Feb 24, 2024 01:00 PM AMBULATORY MEDICINE [facility] Mar 02, 2024 01:00 PM AMBULATORY - REHAB MEDICIN E [facility] Active, Pending, and Scheduled Orders This section includes a listing of several types of active, pending, and scheduled orders, including clinic medications orders, diagnostic test orders, procedure orders and consult orders; where the start date of the order is 45 days before the date of the Encounter or 45 days after the date of theEncounter. The data comes from all [facility]. Test Date/Time Test Type Test Details Facility Name Jan 18, 2024 04:23 PM Consult Order COMMUNITY CARE-ECHOCARDIOGRAPHY Cons Die Press Operator's Choice [facility] Jan 19, 2024 12:10 PM Consult Order COMMUNITY CARE-DERMATOLOGY [facility] Die [employer] [facility] Jan 28, 2024 02:00 AM Laboratory - Chemistry Order TROPONIN I, HS PLASMA STAT WC [facility] Jan 31, 2024 09:30 AM Consult Order CARDIAC REHAB OUTPT Cons Bedside [facility] Jan 31, 2024 10:13 AM Consult Order CARDIOLOGY INTERVENTIONAL CLINIC OUTPT Cons [employer] Lab Results: +/- 30 days of the encounter This section includes the Chemistry and Hematology Lab Results on record with [place] for the patient. Radiology Reports and Pathology Reports are provided separately, in subsequent sections. Lab Results This section contains the Chemistry/Hematology Results that were resulted 30 days before or 30 daysafter the date of the Encounter. Date/Time Source Result Type Result - Unit Interpretation Reference Range Comment Jan 31, 2024 10:50 AM [facility] HEMOGLOBIN A1C Specimen Type: BLOOD Comment: [...] Jan 31, 2024 10:13 AM Reporting Lab: [facility] [phone] Performing Lab: [facility] [phone] HEMOGLOBIN A1C 5.4 4.0-6.0 Jan 31, 2024 10:50 AM [facility] LIPID PANEL,FASTING Specimen Type: PLASMA No comment entered. Ordering Provider: JULIET SMART Report Released Date/Time: Jan 31, 2024 10:13 AM Reporting Lab: [facility] [phone] Performing Lab: [facility] [phone] CHOLESTEROL 125 mg/dL <199 TRIGLYCERIDE 95 mg/dL <149 .HDL 37 mg/dL L >40 LDL CALCULATION 69 mg/dL <99 VLDL CALCULATION 19 mg/dL <29 NON HDL CHOLESTEROL 88 mg/dL <129 Jan 31, 2024 07:29 AM [facility] CBC Specimen Type: BLOOD No comment entered. Ordering Provider: BASHIR CARVAJAL Report Released Date/Time: Jan 30, 2024 01:03 PM Reporting Lab: [facility] [phone] Performing Lab: [facility] [phone] WBC 7.3 4.0-11.0 RBC 3.83 L 4.60-6.20 HGB 11.4 g/dL L 13.5-17.9 HCT 35.1 L 41.0-54.0 MCV 91.6 fL 80.0-100.0 MCH 29.8 pg 27.0-33.0 MCHC 32.5 g/dL 32.0-37.5 PLT 193 150-400 MPV 10.7 fL 9.1-13.0 RDW 12.2 11.5-14.5 Jan 31, 2024 07:29 AM [facility] BASIC METABOLIC PANEL+MG Specimen Type: PLASMA No comment entered. Ordering Provider: BASHIR CARVAJAL Report Released Date/Time: Jan 30, 2024 01:03 PM Reporting Lab: [facility] [phone] Performing Lab: [facility] [phone] CREATININE 1.3 mg/dL H 0.7-1.2 UREA NITROGEN 24 mg/dL 8-26 GLUCOSE 91 mg/dL 70-100 SODIUM 138 mmol/L 136-145 POTASSIUM 4.1 mmol/L 3.5-5.1 CHLORIDE 108 mmol/L H 98-107 CO2 23 mmol/L 22-29 CALCIUM 8.8 mg/dL 8.4-10.2 MAGNESIUM 2.1 mg/dL 1.6-2.6 ANION GAP 7 mmol/L 5-15 .CREAT EGFR(CKD-EPI) 54 L >60 Jan 30, 2024 10:37 AM [facility] POC ACT Specimen Type: BLOOD No comment entered. Ordering Provider: RODO CHRISTY Report Released Date/Time: Jan 30, 2024 10:43 AM Reporting Lab: [facility] [phone] Performing Lab: [facility] [phone] POC ACT 241 s H 84-139 Jan 30, 2024 10:08 AM [facility] POC ACT Specimen Type: BLOOD No comment entered. Ordering Provider: RODO CHRISTY Report Released Date/Time: Jan 30, 2024 10:14 AM Reporting Lab: [facility] [phone] Performing Lab: [facility] [phone] POC ACT 289 s H 84-139 Jan 30, 2024 09:34 AM [facility] POC ACT Specimen Type: BLOOD No comment entered. Ordering Provider: RODO CHRISTY Report Released Date/Time: Jan 30, 2024 10:14 AM Reporting Lab: [facility] [phone] Performing Lab: [facility] [phone] POC ACT 294 s H 84-139 Jan 30, 2024 05:37 AM [facility] HEPARIN APTT Specimen Type: PLASMA No comment entered. Ordering Provider: BASHIR CARVAJAL Report Released Date/Time: Jan 29, 2024 09:43 PM Reporting Lab: [facility] [phone] Performing Lab: [facility] [phone] HEPARIN APTT 83.2 s 48.0-92.0 Jan 30, 2024 05:37 AM [facility] BASIC METABOLIC PANEL+MG Specimen Type: PLASMA No comment entered. Ordering Provider: BASHIR CARVAJAL Report Released Date/Time: Jan 29, 2024 12:19 PM Reporting Lab: [facility] [phone] Performing Lab: [facility] [phone] CREATININE 1.4 mg/dL H 0.7-1.2 UREA NITROGEN 27 mg/dL H 8-26 GLUCOSE 95 mg/dL 70-100 SODIUM 139 mmol/L 136-145 POTASSIUM 4.2 mmol/L 3.5-5.1 CHLORIDE 109 mmol/L H 98-107 CO2 24 mmol/L 22-29 CALCIUM 9.0 mg/dL 8.4-10.2 MAGNESIUM 2.1 mg/dL 1.6-2.6 ANION GAP 6 mmol/L 5-15 .CREAT EGFR(CKD-EPI) 49 L >60 Jan 29, 2024 09:02 PM [facility] HEPARIN APTT Specimen Type: PLASMA Comment: Critical Value Reported To: Tomasa Delcid PharmD 01/29/24 @[address] [place] [address]. Critical value report confirmed. Ordering Provider: MERY SAMUEL Report Released Date/Time: Jan 29, 2024 03:00 PM Reporting Lab: [facility] [phone] Performing Lab: [facility] [phone] HEPARIN APTT 214.6 s HH 48.0-92.0 Jan 29, 2024 06:24 AM [facility] BASIC METABOLIC PANEL+MG Specimen Type: PLASMA No comment entered. Ordering Provider: BASHIR CARVAJAL Report Released Date/Time: Jan 28, 2024 04:36 PM Reporting Lab: [facility] [phone] Performing Lab: [facility] [phone] CREATININE 1.6 mg/dL H 0.7-1.2 UREA NITROGEN 27 mg/dL H 8-26 GLUCOSE 92 mg/dL 70-100 SODIUM 140 mmol/L 136-145 POTASSIUM 4.2 mmol/L 3.5-5.1 CHLORIDE 110 mmol/L H 98-107 CO2 25 mmol/L 22-29 CALCIUM 8.8 mg/dL 8.4-10.2 MAGNESIUM 2.1 mg/dL 1.6-2.6 ANION GAP 5 mmol/L 5-15 .CREAT EGFR(CKD-EPI) 42 L >60 Jan 28, 2024 05:54 AM [facility] EXTRA PURPLE TUBE Specimen Type: BLOOD No comment entered. Ordering Provider: RODO CHRISTY Report Released Date/Time: Jan 28, 2024 05:54 AM Reporting Lab: [facility] [phone] Performing Lab: [facility] [phone] EXTRA PURPLE TUBE RECEIVED Jan 28, 2024 05:53 AM [facility] ALBUMIN Specimen Type: PLASMA No comment entered. Ordering Provider: BASHIR CARVAJAL Report Released Date/Time: Jan 27, 2024 04:49 PM Reporting Lab: [facility] [phone] Performing Lab: [facility] [phone] ALBUMIN 3.5 g/dL 3.5-5.2 Jan 28, 2024 05:53 AM [facility] BASIC METABOLIC PANEL+MG Specimen Type: PLASMA No comment entered. Ordering Provider: BASHIR CARVAJAL Report Released Date/Time: Jan 27, 2024 05:44 PM Reporting Lab: [facility] [phone] Performing Lab: [facility] [phone] CREATININE 1.4 mg/dL H 0.7-1.2 UREA NITROGEN 28 mg/dL H 8-26 GLUCOSE 92 mg/dL 70-100 SODIUM 140 mmol/L 136-145 POTASSIUM 4.4 mmol/L 3.5-5.1 CHLORIDE 109 mmol/L H 98-107 CO2 23 mmol/L 22-29 CALCIUM 8.8 mg/dL 8.4-10.2 MAGNESIUM 2.1 mg/dL 1.6-2.6 ANION GAP 8 mmol/L 5-15 .CREAT EGFR(CKD-EPI) 49 L >60 Jan 28, 2024 05:52 AM [facility] TROPONIN I, HS Specimen Type: PLASMA Comment: Critical value previously reported on patient. Ordering Provider: BRANDON MEJIA Report Released Date/Time: Jan 27, 2024 09:15 PM Reporting Lab: [facility] [phone] Performing Lab: [facility] [phone] TROPONIN I, HS 128 HH <35 Jan 28, 2024 12:35 AM [facility] COVID-19 DIAGNOSTIC PANEL (CEPHEID) Specimen Type: NASOPHARYNGEAL Comment: Cepheid GeneXpert (618) Ordering Provider: LUCAS HAWTHORNE Report Released Date/Time: Jan 27, 2024 04:28 PM Reporting Lab: [facility] [phone] Performing Lab: [facility] [phone] COVID-19 (CEPHEID) Not Detected Not Detected Jan 28, 2024 12:35 AM [facility] HEPARIN APTT Specimen Type: PLASMA Comment: Critical Value Reported To: Deena Oliveros PharmD 01/28/24 @0110 HV. Critical value report confirmed. Ordering Provider: NATALIE ORDOÑEZ Report Released Date/Time: Jan 27, 2024 07:18 PM Reporting Lab: [facility] [phone] Performing Lab: [facility] [address] HEPARIN APTT 133.9 s HH 48.0-92.0 Jan 28, 2024 12:35 AM [facility] TROPONIN I, HS Specimen Type: PLASMA Comment: Critical value previously reported on patient. Ordering Provider: BRANDON MEJIA Report Released Date/Time: Jan 27, 2024 09:15 PM Reporting Lab: [facility] [phone] Performing Lab: [facility] [phone] TROPONIN I, HS 158 HH <35 Jan 27, 2024 09:22 PM [facility] TROPONIN I, HS Specimen Type: PLASMA Comment: Critical value previously reported on patient. Ordering Provider: BASHIR CARVAJAL Report Released Date/Time: Jan 27, 2024 08:38 PM Reporting Lab: [facility] [phone] Performing Lab: [facility] [phone] TROPONIN I, HS 146 HH <35 Jan 27, 2024 06:52 PM [facility] TROPONIN I, HS Specimen Type: PLASMA Comment: Critical Value Reported To: Brandon Mejia MD 01/27/24 @1950 KL. Critical value report confirmed. Ordering Provider: BASHIR CARVAJAL Report Released Date/Time: Jan 27, 2024 04:54 PM Reporting Lab: [facility] [phone] Performing Lab: [facility] [address] TROPONIN I, HS 136 HH <35 Jan 27, 2024 06:52 PM [facility] BASIC METABOLIC PANEL+MG Specimen Type: PLASMA No comment entered. Ordering Provider: BASHIR CARVAJAL Report Released Date/Time: Jan 27, 2024 04:54 PM Reporting Lab: [facility] [phone] Performing Lab: [facility] [address] CREATININE 1.3 mg/dL H 0.7-1.2 UREA NITROGEN 30 mg/dL H 8-26 GLUCOSE 141 mg/dL H 70-100 SODIUM 142 mmol/L 136-145 POTASSIUM 3.4 mmol/L L 3.5-5.1 CHLORIDE 106 mmol/L 98-107 CO2 27 mmol/L 22-29 CALCIUM 8.8 mg/dL 8.4-10.2 MAGNESIUM 2.2 mg/dL 1.6-2.6 ANION GAP 9 mmol/L 5-15 .CREAT EGFR(CKD-EPI) 54 L >60 Jan 27, 2024 06:52 PM [facility] CBC Specimen Type: BLOOD No comment entered. Ordering Provider: BASHIR CARVAJAL Report Released Date/Time: Jan 27, 2024 04:54 PM Reporting Lab: [facility] [phone] Performing Lab: [facility] [phone] WBC 6.0 4.0-11.0 RBC 3.91 L 4.60-6.20 [...] Source Jan 28, 2024 03:42 AM 0 [facility]IDY SOLIS [facility] Jan 28, 2024 03:25 AM 7 [facility] Social History: Smoking Status (Most current) and Tobacco Use (All prior to encounter date) This section includes the most current, and the historical, smoking and tobacco- related health factors from the [place] facility where the Encounter took place. Current Smoking Status This section includes the most current smoking, or tobacco-related health factor, from the [place] facility where the Encounter took place. Date/Time Current Smoking Status Comment Facil ity Dec 14, 2023 11:30 AM VA-TOBACCO FORMER USER [facility] Tobacco Use History This section includes a history of the smoking, or tobacco-related health factors, that were collected on or before the date of the Encounter. The data comes from the [place] facility where the Encounter took place. Date/Time Smoking Status/Tobacco Use Comment F acility Dec 14, 2023 11:30 AM VA-TOBACCO QUIT 15 YRS OR MORE [facility] Oct 13, 2022 01:30 PM VA-TOBACCO FORMER USER [facility] Oct 13, 2022 01:30 PM VA-TOBACCO QUIT 15 YRS OR MORE [facility] Jul 27, 2021 10:00 AM VA-TOBACCO FORMER USER [facility] Jul 27, 2021 10:00 AM VA-TOBACCO QUIT 15 YRS OR MORE [facility] Jan 02, 2020 09:00 AM VA-TOBACCO FORMER USER [facility] Jan 02, 2020 09:00 AM VA-TOBACCO QUIT 15 YRS OR MORE [facility] Jul 21, 2018 03:00 PM VA-TOBACCO FORMER USER [facility] Jul 21, 2018 03:00 PM VA-TOBACCO QUIT 15 YRS OR MORE [facility] Dec 24, 2016 08:01 AM FORMER TOBACCO USER 7Y OR GREATE R [facility] Dec 23, 2015 08:23 AM FORMER TOBACCO USE >1Y <7Y [facility] Dec 26, 2014 10:32 AM FORMER TOBACCO USER 7Y OR GREATE R [facility] August 13, 2013 08:22 AM LIFETIME NON-TOBACCO USER [facility] August 30, 2006 08:38 AM FORMER TOBACCO USER 7Y OR GREATE R [facility] Advance Directives: All historical and current Section Date Range: From patient's date of to the date document was created. This section includes ALL of a patient's completed or amended [place] Advance and Rescinded Directives. The entries below indicate that a directive exists for the patient, but an actual copy is not included with this document. The data comes from all [place] facilities. Date Advance Directives Provider Source August 30, 2006 ADVANCE DIRECTIVE ARGENIS CRAMER [facility] Pathology Reports: +/- 30 days of the [...] the Encounter. The data comes from all [place] treatment facilities. Date/Time Pathology Report Provider Source Jan 06, 2024 11:16 AM LR SURGICAL PATHOL OGY REPORT: LOCAL TITLE: LR SURGICAL PATHOLOGY REPORT STANDARD TITLE: PATHOLOGY REPORT DATE OF NOTE: JAN 06, 2024@11:16:39 ENTRY DATE: JAN 06, 2024@11:16:39 AUTHOR: JOSE REESE COSIGNER: URGENCY: STATUS: COMPLETED $APHDR Reporting Lab: [facility] [CLIA# [id number]] [place] [address] - - - - - - - [...] - PATHOLOGY REPORT Accession No. [id number] - - - - - - - [...] - PATHOLOGY REPORT Accession No. [id number] - - - - - - - [...] 0.1 cm. The specimen is inked. CE. (D[facility] DES[facility]: Microscopic examination performed. [...] Performing Laboratory: Surgical Pathology Report Performed By: [facility] [CLIA# [id number]] [place] [address] $FTR - - - - - - [...] - - GERI COUGHLIN STANDARD FORM 515 ID:[id number] SEX:M :[id number] AGE: 88 LOC:[id number] PCP: Sariah Gomes MD /shelly/ JOSE REESE M.D. STAFF PATHOLOGIST Signed: 01/06/2024 11:16 JOSE REESE [facility] Encounter Notes: All associated encounter notes This section contains the clinical notes associated to the Encounter. Date/Time Encounter Note(s) Provider Source Jan 28, 2024 01:00 AM CRITICAL CARE UNIT NOTE: LOCAL TITLE: ICCA INPATIENT FLOWSHEET STANDARD TITLE: CRITICAL CARE UNIT NOTE DATE OF NOTE: JAN 28, 2024@01:00 ENTRY DATE: JAN 29, 2024@14:37:19 AUTHOR: SYSTEM,Fifty100-ARK EXP COSIGNER: URGENCY: STATUS: COMPLETED This is a place barron only. Please see I[employer] Interactive to view document. /es/ CIS-ARK SYSTEM ICU DOCUMENT IMPORT Signed: 01/29/2024 14:37 SYSTEM,CIS-ARK [facility] Jan 28, 2024 01:00 AM CRITICAL CARE UNIT NOTE: LOCAL TITLE: ICCA RESPIRATORY THERAPY FLOWSHEET STANDARD TITLE: CRITICAL CARE UNIT NOTE DATE OF NOTE: JAN 28, 2024@01:00 ENTRY DATE: JAN 29, 2024@15:09:49 AUTHOR: SPARKLE,CIS-ARBrittany EXP COSIGNER: URGENCY: STATUS: COMPLETED This is a place barron only. Please see Imonomy Interactive to view document. /es/ CIS-ARK SYSTEM ICU DOCUMENT IMPORT Signed: 01/29/2024 15:09 SYSTEM,CIS-ARK [facility]
--- OUTSIDE RECORDS SUMMARY | 2024-02-10 23:36 | XMS_ITS | Encounter Summary ---
Author Name [facility] [place] [facility] [place] [facility] [place] Address [address] [place] [address] Care Team Providers Care Commercial Announcer Name Role Phone SARIAH GOMES Primary Care [...] PART A Sep 09, 2002 PART A [id number] [phone] JOAQUIN COUGHLIN S PATIENT MEDICARE (WNR) MEDICARE (M) PART B Sep 09, 2002 PART B [id number] JOAQUIN COUGHLIN S PATIENT MEDICARE (WNR) MEDICARE (M) PART A Sep 09, 2002 PART A [id number] JOAQUIN COUGHLIN S PATIENT MEDICARE (WNR) MEDICARE (M) PART B Sep 09, 2002 PART B [id number] JOAQUIN COUGHLIN PATIENT Selected Encounter This section includes the information on record at [place] for the Encounter. Date/Time Encounter Type Encounter Description Reason Pro vider Source Jan 28, 2024 09:41 AM Inpatient Visit CARDIAC ECHO IHE Encounter Template Text not used by [place] Plan of Treatment: Future Appointments (+ 6 months) and Future Tests (+/- 45 days) The Plan of Treatment section includes future care activities [facility] the [facility] [place] [facility] This section includes future appointments and future orders which are active, pending or scheduled. Future Appointments This section includes appointments that were scheduled to occur 6 months from the date of the Encounter, up to a maximum of 20 appointments. The data comes from all [facility]. Appointment Date/Time Appointment Type Appointme nt Facility Name Feb 21, 2024 10:00 AM AMBULATORY - MEDICINE [facility] Feb 24, 2024 12:15 PM AMBULATORY MEDICINE [facility] Feb 24, 2024 01:00 PM AMBULATORY MEDICINE [facility] Mar 02, 2024 01:00 PM AMBULATORY - REHAB MEDICIN E [facility] Active, Pending, and Scheduled Orders This section [...] comes from all [facility]. Test Date/Time Test Type Test Details Facility Name Jan 18, 2024 04:23 PM Consult Order COMMUNITY CARE-ECHOCARDIOGRAPHY Cons Nurse Special's [facility] Jan 19, 2024 12:10 PM Consult Order COMMUNITY CARE-DERMATOLOGY Cons Nurse Specials [facility] Jan 28, 2024 02:00 AM Laboratory - Chemistry Order TROPONIN I, HS PLASMA STAT WC [facility] Jan 31, 2024 09:30 AM Consult Order CARDIAC REHAB OUTPT Cons Bedside [facility] Jan 31, 2024 10:13 AM Consult Order CARDIOLOGY INTERVENTIONAL CLINIC OUTPT Cons Nurse Special's [facility] Lab Results: +/- 30 days of the encounter This section includes the Chemistry and Hematology Lab Results on record with [place] for the patient. Radiology Reports and Pathology Reports are provided separately, in subsequent sections. Lab Results This section contains the Chemistry/Hematology Results that were resulted 30 days before or 30 daysafter the date of the Encounter. Date/Time Source Result Type Result - Unit Interpretation Reference Range Comment Jan 31, 2024 10:[address] [facility] HEMOGLOBIN A1C Specimen Type: BLOOD Comment: Values [...] Jan 31, 2024 10:13 AM Reporting Lab: [facility] [id number] Performing Lab: [facility] [address] HEMOGLOBIN A1C 5.4 4.0-6.0 Jan 31, 2024 10:[address] [facility] LIPID PANEL,FASTING Specimen Type: PLASMA No comment entered. Ordering Provider: JULIET SMART Report Released Date/Time: Jan 31, 2024 10:13 AM Reporting Lab: [facility] [address] Performing Lab: [facility] [address] CHOLESTEROL 125 mg/dL <199 TRIGLYCERIDE 95 mg/dL <149 .HDL 37 mg/dL L >40 LDL CALCULATION 69 mg/dL <99 VLDL CALCULATION 19 mg/dL <29 NON HDL CHOLESTEROL 88 mg/dL <129 Jan 31, 2024 07:[address] [facility] CBC Specimen Type: BLOOD No comment entered. Ordering Provider: BASHIR CARVAJAL Report Released Date/Time: Jan 30, 2024 01:03 PM Reporting Lab: [facility] [address] Performing Lab: [facility] [address] WBC 7.3 4.0-11.0 RBC 3.83 L 4.60-6.20 HGB 11.4 g/dL L 13.5-17.9 HCT 35.1 L 41.0-54.0 MCV 91.6 fL 80.0-100.0 MCH 29.8 pg 27.0-33.0 MCHC 32.5 g/dL 32.0-37.5 PLT 193 150-400 MPV 10.7 fL 9.1-13.0 RDW 12.2 11.5-14.5 Jan 31, 2024 07:[address] [facility] BASIC METABOLIC PANEL+MG Specimen Type: PLASMA No comment entered. Ordering Provider: BASHIR CARVAJAL Report Released Date/Time: Jan 30, 2024 01:03 PM Reporting Lab: [facility] [phone] Performing Lab: [facility] [address] CREATININE 1.3 mg/dL H 0.7-1.2 UREA NITROGEN 24 mg/dL 8-26 GLUCOSE 91 mg/dL 70-100 SODIUM 138 mmol/L 136-145 POTASSIUM 4.1 mmol/L 3.5-5.1 CHLORIDE 108 mmol/L H 98-107 CO2 23 mmol/L 22-29 CALCIUM 8.8 mg/dL 8.4-10.2 MAGNESIUM 2.1 mg/dL 1.6-2.6 ANION GAP 7 mmol/L 5-15 .CREAT EGFR(CKD-EPI) 54 L >60 Jan 30, 2024 10:[address] [facility] POC ACT Specimen Type: BLOOD No comment entered. Ordering Provider: RODO CHRISTY Report Released Date/Time: Jan 30, 2024 10:43 AM Reporting Lab: [facility] [address] Performing Lab: [facility] [address] POC ACT 241 s H 84-139 Jan 30, 2024 10:[address] [facility] POC ACT Specimen Type: BLOOD No comment entered. Ordering Provider: RODO CHRISTY Report Released Date/Time: Jan 30, 2024 10:14 AM Reporting Lab: [facility] [address] Performing Lab: [facility] [address] POC ACT 289 s H 84-139 Jan 30, 2024 09:[address] [facility] POC ACT Specimen Type: BLOOD No comment entered. Ordering Provider: RODO CHRISTY Report Released Date/Time: Jan 30, 2024 10:14 AM Reporting Lab: [facility] [address] Performing Lab: [facility] [address] POC ACT 294 s H 84-139 Jan 30, 2024 05:[address] [facility] HEPARIN APTT Specimen Type: PLASMA No comment entered. Ordering Provider: BASHIR CARVAJAL Report Released Date/Time: Jan 29, 2024 09:43 PM Reporting Lab: [facility] [address] Performing Lab: [facility] [address] HEPARIN APTT 83.2 s 48.0-92.0 Jan 30, 2024 05:[address] [facility] BASIC METABOLIC PANEL+MG Specimen Type: PLASMA No comment entered. Ordering Provider: BASHIR CARVAJAL Report Released Date/Time: Jan 29, 2024 12:19 PM Reporting Lab: [facility] [address] Performing Lab: [facility] [address] CREATININE 1.4 mg/dL H 0.7-1.2 UREA NITROGEN 27 mg/dL H 8-26 GLUCOSE 95 mg/dL 70-100 SODIUM 139 mmol/L 136-145 POTASSIUM 4.2 mmol/L 3.5-5.1 CHLORIDE 109 mmol/L H 98-107 CO2 24 mmol/L 22-29 CALCIUM 9.0 mg/dL 8.4-10.2 MAGNESIUM 2.1 mg/dL 1.6-2.6 ANION GAP 6 mmol/L 5-15 .CREAT EGFR(CKD-EPI) 49 L >60 Jan 29, 2024 09:[address] [facility] HEPARIN APTT Specimen Type: PLASMA Comment: Critical Value Reported To: Tomasa Delcid PharmD 01/29/24 @[address] [place] [address]. Critical value report confirmed. Ordering Provider: MERY SAMUEL Report Released Date/Time: Jan 29, 2024 03:00 PM Reporting Lab: [facility] [phone] Performing Lab: [facility] [address] HEPARIN APTT 214.6 s HH 48.0-92.0 Jan 29, 2024 06:[address] [facility] BASIC METABOLIC PANEL+MG Specimen Type: PLASMA No comment entered. Ordering Provider: BASHIR CARVAJAL Report Released Date/Time: Jan 28, 2024 04:36 PM Reporting Lab: [facility] [address] Performing Lab: [facility] [address] CREATININE 1.6 mg/dL H 0.7-1.2 UREA NITROGEN 27 mg/dL H 8-26 GLUCOSE 92 mg/dL 70-100 SODIUM 140 mmol/L 136-145 POTASSIUM 4.2 mmol/L 3.5-5.1 CHLORIDE 110 mmol/L H 98-107 CO2 25 mmol/L 22-29 CALCIUM 8.8 mg/dL 8.4-10.2 MAGNESIUM 2.1 mg/dL 1.6-2.6 ANION GAP 5 mmol/L 5-15 .CREAT EGFR(CKD-EPI) 42 L >60 Jan 28, 2024 05:[address] [facility] EXTRA PURPLE TUBE Specimen Type: BLOOD No comment entered. Ordering Provider: RODO CHRISTY Report Released Date/Time: Jan 28, 2024 05:54 AM Reporting Lab: [facility] [address] Performing Lab: [facility] [address] EXTRA PURPLE TUBE RECEIVED Jan 28, 2024 05:[address] [facility] ALBUMIN Specimen Type: PLASMA No comment entered. Ordering Provider: BASHIR CARVAJAL Report Released Date/Time: Jan 27, 2024 04:49 PM Reporting Lab: [facility] [address] Performing Lab: [facility] [address] ALBUMIN 3.5 g/dL 3.5-5.2 Jan 28, 2024 05:[address] [facility] BASIC METABOLIC PANEL+MG Specimen Type: PLASMA No comment entered. Ordering Provider: BASHIR CARVAJAL Report Released Date/Time: Jan 27, 2024 05:44 PM Reporting Lab: [facility] [address] Performing Lab: [facility] [address] CREATININE 1.4 mg/dL H 0.7-1.2 UREA NITROGEN 28 mg/dL H 8-26 GLUCOSE 92 mg/dL 70-100 SODIUM 140 mmol/L 136-145 POTASSIUM 4.4 mmol/L 3.5-5.1 CHLORIDE 109 mmol/L H 98-107 CO2 23 mmol/L 22-29 CALCIUM 8.8 mg/dL 8.4-10.2 MAGNESIUM 2.1 mg/dL 1.6-2.6 ANION GAP 8 mmol/L 5-15 .CREAT EGFR(CKD-EPI) 49 L >60 Jan 28, 2024 05:[address] [facility] TROPONIN I, HS Specimen Type: PLASMA Comment: Critical value previously reported on patient. Ordering Provider: BRANDON MEJIA Report Released Date/Time: Jan 27, 2024 09:15 PM Reporting Lab: [facility] [address] Performing Lab: [facility] [address] TROPONIN I, HS 128 HH <35 Jan 28, 2024 12:[address] [facility] COVID-19 DIAGNOSTIC PANEL (CEPHEID) Specimen Type: NASOPHARYNGEAL Comment: Cepheid GeneXpert (618) Ordering Provider: LUCAS HAWTHORNE Report Released Date/Time: Jan 27, 2024 04:28 PM Reporting Lab: [facility] [address] Performing Lab: [facility] [address] COVID-19 (CEPHEID) Not Detected Not Detected Jan 28, 2024 12:[address] [facility] HEPARIN APTT Specimen Type: PLASMA Comment: Critical Value Reported To: Deena Oliveros PharmD 01/28/24 @0110 HV. Critical value report confirmed. Ordering Provider: NATALIE ORDOÑEZ Report Released Date/Time: Jan 27, 2024 07:18 PM Reporting Lab: [facility] [address] Performing Lab: [facility] [address] HEPARIN APTT 133.9 s HH 48.0-92.0 Jan 28, 2024 12:[address] [facility] TROPONIN I, HS Specimen Type: PLASMA Comment: Critical value previously reported on patient. Ordering Provider: BRANDON MEJIA Report Released Date/Time: Jan 27, 2024 09:15 PM Reporting Lab: [facility] [address] Performing Lab: [facility] [address] TROPONIN I, HS 158 HH <35 Jan 27, 2024 09:[address] [facility] TROPONIN I, HS Specimen Type: PLASMA Comment: Critical value previously reported on patient. Ordering Provider: BASHIR CARVAJAL Report Released Date/Time: Jan 27, 2024 08:38 PM Reporting Lab: [facility] [address] Performing Lab: [facility] [address] TROPONIN I, HS 146 HH <35 Jan 27, 2024 06:[address] [facility] TROPONIN I, HS Specimen Type: PLASMA Comment: Critical Value Reported To: Brandon Mejia MD 01/27/24 @1950 KLM. Critical value report confirmed. Ordering Provider: BASHIR CARVAJAL Report Released Date/Time: Jan 27, 2024 04:54 PM Reporting Lab: [facility] [address] Performing Lab: [facility] [address] TROPONIN I, HS 136 HH <35 Jan 27, 2024 06:[address] [facility] CBC Specimen Type: BLOOD No comment entered. Ordering Provider: BASHIR CARVAJAL Report Released Date/Time: Jan 27, 2024 04:54 PM Reporting Lab: [facility] [address] Performing Lab: [facility] [address] WBC 6.0 4.0-11.0 RBC 3.91 L 4.60-6.20 HGB 12.1 g/dL L 13.5-17.9 HCT 36.5 L 41.0-54.0 MCV 93.4 fL 80.0-100.0 MCH 30.9 pg 27.0-33.0 MCHC 33.2 g/dL 32.0-37.5 PLT 177 150-400 MPV 10.7 fL 9.1-13.0 RDW 12.4 11.5-14.5 Jan 27, 2024 06:[address] [facility] BASIC METABOLIC PANEL+MG Specimen Type: PLASMA No comment entered. Ordering Provider: BASHIR CARVAJAL Report Released Date/Time: Jan 27, 2024 04:54 PM Reporting Lab: [facility] [address] Performing Lab: [facility] [address] CREATININE 1.3 mg/dL H 0.7-1.2 UREA NITROGEN 30 mg/dL H 8-26 GLUCOSE 141 mg/dL H 70-100 SODIUM 142 mmol/L 136-145 POTASSIUM 3.4 mmol/L L 3.5-5.1 CHLORIDE 106 mmol/L 98-107 CO2 27 mmol/L 22-29 CALCIUM 8.8 mg/dL 8.4-10.2 MAGNESIUM 2.2 mg/dL 1.6-2.6 ANION GAP 9 mmol/L 5-15 .CREAT EGFR(CKD-EPI) 54 L >60 Vital Signs: All taken on the encounter date This section contains inpatient and outpatient Vital Signs collected on the date of the Encounter. Date/Time Temperature Pulse Blood Pressure Respiratory Rate SP02 Pain Height Weight Body Mass Index Source Jan 28, 2024 03:42 AM 0 [place] [facility] Jan 28, 2024 03:25 AM [facility] Social History: Smoking Status (Most current) and Tobacco Use (All prior to encounter date) This section includes the most current, and the historical, smoking and tobacco- related health factors from the [place] facility where the Encounter took place. Current Smoking Status This section includes the most current smoking, or tobacco-related health factor, from the [place] facility where the Encounter took place. Date/Time Current Smoking Status Comment Facil ity Dec 14, 2023 11:30 AM VA-TOBACCO FORMER USER [facility] Tobacco Use History This section includes a history of the smoking, or tobacco-related health factors, that were collected on or before the date of the Encounter. The data comes from the [place] facility where the Encounter took place. Date/Time Smoking Status/Tobacco Use Comment F acility Dec 14, 2023 11:30 AM VA-TOBACCO QUIT [address] [facility] Oct 13, 2022 01:30 PM VA-TOBACCO FORMER USER [facility] Oct 13, 2022 01:30 PM VA-TOBACCO QUIT [address] [facility] Jul 27, 2021 10:00 AM VA-TOBACCO FORMER USER [facility] Jul 27, 2021 10:00 AM VA-TOBACCO QUIT [address] [facility] Jan 02, 2020 09:00 AM VA-TOBACCO FORMER USER [facility] Jan 02, 2020 09:00 AM VA-TOBACCO QUIT [address] [facility] Jul 21, 2018 03:00 PM VA-TOBACCO FORMER USER [facility] Jul 21, 2018 03:00 PM VA-TOBACCO QUIT [address] [facility] Dec 24, 2016 08:01 AM FORMER TOBACCO USER 7Y OR GREATE R [facility] Dec 23, 2015 08:23 AM FORMER TOBACCO USE >1Y <7Y [facility] Dec 26, 2014 10:32 AM FORMER TOBACCO USER 7Y OR GREATE R [facility] August 13, 2013 08:22 AM LIFETIME NON-TOBACCO USER [facility] August 30, 2006 08:38 AM FORMER TOBACCO USER 7Y OR GREATE R [facility] Advance Directives: All historical and current Section Date Range: From patient's date of to the date document was created. This section includes ALL of a patient's completed or amended [place] Advance and Rescinded Directives. The entries below indicate that a directive exists for the patient, but an actual copy is not included with this document. The data comes from all [place] facilities. Date Advance Directives Provider Source August 30, 2006 ADVANCE DIRECTIVE ARGENIS CRAMER [facility] Pathology Reports: +/- 30 days of [...] the Encounter. The data comes from all [place] treatment facilities. Date/Time Pathology Report Provider Source Jan 06, 2024 11:16 AM [facility] SURGICAL PATHOL OGY REPORT: LOCAL TITLE: LR SURGICAL PATHOLOGY REPORT STANDARD TITLE: PATHOLOGY REPORT DATE OF NOTE: JAN 06, 2024@11:16:39 ENTRY DATE: JAN 06, 2024@11:16:39 AUTHOR: JOSE REESE COSIGNER: URGENCY: STATUS: COMPLETED $APHDR Reporting Lab: [facility] [CLIA# [id number]] [place] [address] - - - - - - - [...] - PATHOLOGY REPORT Accession No. [id number] - - - - - - - [...] - PATHOLOGY REPORT Accession No. [id number] - - - - - - - [...] The specimen is inked. CE. [place] [place] DES[place]: Microscopic examination performed. CI. 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 STAFF PATHOLOGIST Signed Jan 06, 2024@11:16 Performing Laboratory: Surgical Pathology Report Performed By: [facility] [CLIA# [id number]] [facility] [place] [address] $FTR - - - - - - [...] - - MADYSON,GERI NUNEZ STANDARD FORM 515 ID:[id number] SEX:M :1935 AGE: 88 LOC:[id number] PCP: Sariah Gomes MD /shelly/ JOSE REESE M.D. STAFF PATHOLOGIST Signed: 01/06/2024 11:[address] [facility] Encounter Notes: All associated encounter notes This section contains the clinical notes associated to the Encounter. Date/Time Encounter Note(s) Provider Source Jan 30, 2024 11:01 AM CARDIOLOGY PROCEDU RE NOTE: LOCAL TITLE: ECHOCARDIOGRAM PROCEDURE STANDARD TITLE: CARDIOLOGY PROCEDURE NOTE DATE OF NOTE: JAN 30, 2024@11:01:28 ENTRY DATE: JAN 30, 2024@11:01:28 AUTHOR: CLINICAL,DEVICE PRO EXP COSIGNER: URGENCY: STATUS: COMPLETED PROCEDURE SUMMARY CODE: Machine Resulted DATE/TIME PERFORMED: JAN 28, 2024@10:41:3 DOCUMENT IN [employer] [facility] SEE FULL REPORT IN VISTA IMAGING SIGNATURE NOT REQUIRED SEE SIGNATURE IN VISTA IMAGING (XCELERA ISCV TTE INPT) AUTO-INSTRUMENT DIAGNOSIS Procedure: Adult Adult Release Status: Released Off-Line Verified Date Verified: Jan 30, 2024@11:01:05 Order Number: [id number] Study ID: [id number] [address] + + DEMETRIUS Waters + + [facility] [address] [place] Transthoracic Echocardiogram Report + + :Name: GERI COUGHLIN Study Date: 01/28/2024 Height: 67 in : : Patient Location: \S\3KSD Weight: 141 lb: :: 1935 Gender: Male BSA: 1.7 m2 : :Age: 88 yrs : :CP Order Number: [id number] : :Reason For Study: Heart failure : + + :Shell Press Operator: Radha Reyes RDCS : + + :Referring Physician: ROSA MARIA NG : + + + + Interpretation Summary A complete two-dimensional transthoracic echocardiogram (58074) was performed without contrast. The left ventricular systolic function is normal. The visually estimated ejection fraction is 55-60%. There is moderate aortic sclerosis without stenosis. Procedure A complete two-dimensional transthoracic echocardiogram (22150) was performed without contrast. Left Ventricle The left ventricle is normal in size. The left ventricular systolic function is normal. The visually estimated ejection fraction is 55-60%. The left ventricular wall motion is normal. Right Ventricle The right ventricle is normal size. Left Atrium/Right Atrium/Atrial Septum The left atrium is mildly dilated. Right atrial size is normal. Mitral Valve There is trivial mitral valve regurgitation. Tricuspid Valve There is trivial tricuspid regurgitation. Aortic Valve Trace aortic regurgitation. There is moderate aortic sclerosis without stenosis. Pericardium/Pleural There is no pericardial effusion. Inferior Vena Cava/Hepatic Veins The inferior vena cava was not visualized during the exam. + + :Measurements : :LVIDd: 4.3 cm(3.9-5.9 cm) LVIDs: 2.9 cm(2.0-4.0 cm) : : _ : : :IVSd: 1.5 cm(0.6-1.1 cm) LVPWd: 1.3 cm(0.6-1.1 cm) : : _ :TAPSE: 2.4 cm(>1.7) EF(Teich): 60.3 %(52-74%) : + + MMode/2D Measurements \T\ Calculations FS: 31.9 % Ao root diam: 3.9 cm EDV(Teich): 83.5 ml ESV(Teich): 33.2 ml Asc Aorta diam: 3.9 cm LVOT diam: 2.3 cm LA Length: 5.6 cm RA A4Cs: 16.8 cm2 Doppler Measurements \T\ Calculations MV E max tom: 59.6 cm/sec MV dec slope: 240.3 cm/sec2 MV A max tom: 87.1 cm/sec MV dec time: 0.25 sec MV E/A: 0.68 Lat Peak E' Tom: 2.1 cm/sec Ao V2 max: 182.2 cm/sec Lat E/e': 28.9 Ao max P.3 mmHg Med E/e': 16.4 Ao V2 mean: 127.9 cm/sec Med Peak E' Tom: 3.6 cm/sec Ao mean P.0 mmHg Ao V2 VTI: 35.2 cm JOSUÉ(I,D): 2.4 cm2 JOSUÉ(V,D): 2.1 cm2 LV V1 max P.2 mmHg SV(LVOT): 83.9 ml LV V1 mean P.0 mmHg LV V1 max: 89.8 cm/sec LV V1 mean: 67.8 cm/sec LV V1 VTI: 19.7 cm PA V2 max: 78.4 cm/sec PA pr(Accel): 27.9 mmHg PA max P.5 mmHg PA acc time: 0.11 sec Dimensionless Index (DI): 0.49 RV S Tom: 8.2 cm/sec JOSUÉ(VTI)/BSA: 1.3 Ratio of MV Peak Velocity to L: 28.9 QLAB Heart Model EDV (HM): 147.0 ml EF (): 63.0 % ESV (HM): 54.0 ml HR (HM): 54.0 BPM LV Length ED (): 91.0 mm SV (): 93.0 ml LV Length ES (): 74.0 mm ED Current (): 60.0 % ES Current (): 40.0 % ED Default (): 60.0 % ES Default (): 40.0 % Reading Physician:11:01 AM [id number] Administrative Closure: 01/30/2024 by: CLINICAL,DEVICE PROXY SERVICE CLINICAL,DEVICE PROXY SERVICE [facility]
--- OUTSIDE RECORDS SUMMARY | 2024-02-10 23:36 | XMS_ITS ---
[place] DAILY HOSPITALIZATION DATA [facility] Encounter Summary Created on: February 10, 2024 GERI COUGHLIN : 1935 Sex: Male Author Name [facility] [place] [facility] [place] [place] Address [address] [place] [address] Care Team Providers Care Endoscopy Registered Nurse Name Role Phone SARIAH GOMES Primary Care [...] PART B Sep 09, 2002 PART B [id number] [phone] JOAQUIN COUGHLIN S PATIENT MEDICARE (WNR) MEDICARE (M) PART A Sep 09, 2002 PART A [id number] JOAQUIN COUGHLIN S PATIENT MEDICARE (WNR) MEDICARE (M) PART A Sep 09, 2002 PART A [id number] NULLJOAQUIN S PATIENT MEDICARE (WNR) MEDICARE (M) PART B Sep 09, 2002 PART B [id number] JOAQUIN COUGHLIN S PATIENT Selected Encounter This section includes the information on record at [place] for the Encounter. Date/Time Encounter Type Encounter Description Reason Pro vider Source Jan 30, 2024 03:04 AM Inpatient Visit DAILY HOSPITALIZATION DATA [facility] Encounter Template Text not used by [place] Plan of Treatment: Future Appointments (+ 6 months) and Future Tests (+/- 45 days) The Plan of Treatment section includes future care activities for the patient from all [facility]. This section includes future appointments and future orders which are active, pending or scheduled. Future Appointments This section includes appointments that were scheduled to occur 6 months from the date of the Encounter, up to a maximum of 20 appointments. The data comes from all [facility]. Appointment Date/Time Appointment Type Appointme nt Facility Name Feb 21, 2024 10:00 AM AMBULATORY - MEDICINE [facility] Feb 24, 2024 12:15 PM AMBULATORY MEDICINE [facility] Feb 24, 2024 01:00 PM AMBULATORY MEDICINE [facility] Mar 02, 2024 01:00 PM AMBULATORY - REHAB MEDICIN E [facility] Active, Pending, and Scheduled Orders This section includes a listing of several types of active, pending, and scheduled orders, including clinic medications orders, diagnostic test orders, procedure orders and consult orders; where the start date of the order is 45 days before the date of the Encounter or 45 days after the date of theEncounter. The data comes from all [facility]. Test Date/Time Test Type Test Details Facility Name Jan 18, 2024 04:23 PM Consult Order COMMUNITY CARE-ECHOCARDIOGRAPHY Cons Office Supervisor's [facility] Jan 19, 2024 12:10 PM Consult Order COMMUNITY CARE-DERMATOLOGY [facility] Office Supervisors [facility] Jan 28, 2024 02:00 AM Laboratory - Chemistry Order TROPONIN I, HS PLASMA STAT WC [facility] Jan 31, 2024 09:30 AM Consult Order CARDIAC REHAB OUTPT Cons Bedside [facility] Jan 31, 2024 10:13 AM Consult Order CARDIOLOGY INTERVENTIONAL CLINIC OUTPT Cons Office Supervisor's [facility] Lab Results: +/- 30 days of the encounter This section includes the Chemistry and Hematology Lab Results on record with [place] for the patient. Radiology Reports and Pathology Reports are provided separately, in subsequent sections. Lab Results This section contains the Chemistry/Hematology Results that were resulted 30 days before or 30 daysafter the date of the Encounter. Date/Time Source Result Type Result - Unit Interpretation Reference Range Comment Jan 31, 2024 10:50 AM [facility] HEMOGLOBIN A1C Specimen Type: BLOOD [...] Jan 31, 2024 10:13 AM Reporting Lab: [facility] [id number] Performing Lab: [facility] [phone] HEMOGLOBIN A1C 5.4 4.0-6.0 Jan 31, 2024 10:50 AM [facility] LIPID PANEL,FASTING Specimen Type: PLASMA No comment entered. Ordering Provider: JULIET SMART Report Released Date/Time: Jan 31, 2024 10:13 AM Reporting Lab: [facility] [phone] Performing Lab: [facility] [phone] CHOLESTEROL 125 mg/dL <199 TRIGLYCERIDE 95 mg/dL <149 .HDL 37 mg/dL L >40 LDL CALCULATION 69 mg/dL <99 VLDL CALCULATION 19 mg/dL <29 NON HDL CHOLESTEROL 88 mg/dL <129 Jan 31, 2024 07:29 AM [facility] CBC Specimen Type: BLOOD No comment entered. Ordering Provider: BASHIR CARVAJAL Report Released Date/Time: Jan 30, 2024 01:03 PM Reporting Lab: [facility] [phone] Performing Lab: [facility] [phone] WBC 7.3 4.0-11.0 RBC 3.83 L 4.60-6.20 HGB 11.4 g/dL L 13.5-17.9 HCT 35.1 L 41.0-54.0 MCV 91.6 fL 80.0-100.0 MCH 29.8 pg 27.0-33.0 MCHC 32.5 g/dL 32.0-37.5 PLT 193 150-400 MPV 10.7 fL 9.1-13.0 RDW 12.2 11.5-14.5 Jan 31, 2024 07:29 AM [facility] BASIC METABOLIC PANEL+MG Specimen Type: PLASMA No comment entered. Ordering Provider: BASHIR CARVAJAL Report Released Date/Time: Jan 30, 2024 01:03 PM Reporting Lab: [facility] [phone] Performing Lab: [facility] [phone] CREATININE 1.3 mg/dL H 0.7-1.2 UREA NITROGEN 24 mg/dL 8-26 GLUCOSE 91 mg/dL 70-100 SODIUM 138 mmol/L 136-145 POTASSIUM 4.1 mmol/L 3.5-5.1 CHLORIDE 108 mmol/L H 98-107 CO2 23 mmol/L 22-29 CALCIUM 8.8 mg/dL 8.4-10.2 MAGNESIUM 2.1 mg/dL 1.6-2.6 ANION GAP 7 mmol/L 5-15 .CREAT EGFR(CKD-EPI) 54 L >60 Jan 30, 2024 10:37 AM [facility] POC ACT Specimen Type: BLOOD No comment entered. Ordering Provider: RODO CHRISTY Report Released Date/Time: Jan 30, 2024 10:43 AM Reporting Lab: [facility] [phone] Performing Lab: [facility] [phone] POC ACT 241 s H 84-139 Jan 30, 2024 10:08 AM [facility] POC ACT Specimen Type: BLOOD No comment entered. Ordering Provider: RODO CHRISTY Report Released Date/Time: Jan 30, 2024 10:14 AM Reporting Lab: [facility] [phone] Performing Lab: [facility] [phone] POC ACT 289 s H 84-139 Jan 30, 2024 09:34 AM [facility] POC ACT Specimen Type: BLOOD No comment entered. Ordering Provider: RODO CHRISTY Report Released Date/Time: Jan 30, 2024 10:14 AM Reporting Lab: [facility] [phone] Performing Lab: [facility] [phone] POC ACT 294 s H 84-139 Jan 30, 2024 05:37 AM [facility] HEPARIN APTT Specimen Type: PLASMA No comment entered. Ordering Provider: BASHIR CARVAJAL Report Released Date/Time: Jan 29, 2024 09:43 PM Reporting Lab: [facility] [phone] Performing Lab: [facility] [phone] HEPARIN APTT 83.2 s 48.0-92.0 Jan 30, 2024 05:37 AM [facility] BASIC METABOLIC PANEL+MG Specimen Type: PLASMA No comment entered. Ordering Provider: BASHIR CARVAJAL Report Released Date/Time: Jan 29, 2024 12:19 PM Reporting Lab: [facility] [phone] Performing Lab: [facility] [phone] CREATININE 1.4 mg/dL H 0.7-1.2 UREA NITROGEN 27 mg/dL H 8-26 GLUCOSE 95 mg/dL 70-100 SODIUM 139 mmol/L 136-145 POTASSIUM 4.2 mmol/L 3.5-5.1 CHLORIDE 109 mmol/L H 98-107 CO2 24 mmol/L 22-29 CALCIUM 9.0 mg/dL 8.4-10.2 MAGNESIUM 2.1 mg/dL 1.6-2.6 ANION GAP 6 mmol/L 5-15 .CREAT EGFR(CKD-EPI) 49 L >60 Jan 29, 2024 09:02 PM [facility] HEPARIN APTT Specimen Type: PLASMA Comment: Critical Value Reported To: Tomasa Delcid PharmD 01/29/24 @[address] [place] [address]. Critical value report confirmed. Ordering Provider: MERY SAMUEL Report Released Date/Time: Jan 29, 2024 03:00 PM Reporting Lab: [facility] [phone] Performing Lab: [facility] [phone] HEPARIN APTT 214.6 s HH 48.0-92.0 Jan 29, 2024 06:24 AM [facility] BASIC METABOLIC PANEL+MG Specimen Type: PLASMA No comment entered. Ordering Provider: BASHIR CARVAJAL Report Released Date/Time: Jan 28, 2024 04:36 PM Reporting Lab: [facility] [phone] Performing Lab: [facility] [phone] CREATININE 1.6 mg/dL H 0.7-1.2 UREA NITROGEN 27 mg/dL H 8-26 GLUCOSE 92 mg/dL 70-100 SODIUM 140 mmol/L 136-145 POTASSIUM 4.2 mmol/L 3.5-5.1 CHLORIDE 110 mmol/L H 98-107 CO2 25 mmol/L 22-29 CALCIUM 8.8 mg/dL 8.4-10.2 MAGNESIUM 2.1 mg/dL 1.6-2.6 ANION GAP 5 mmol/L 5-15 .CREAT EGFR(CKD-EPI) 42 L >60 Jan 28, 2024 05:54 AM [facility] EXTRA PURPLE TUBE Specimen Type: BLOOD No comment entered. Ordering Provider: RODO CHRISTY Report Released Date/Time: Jan 28, 2024 05:54 AM Reporting Lab: [facility] [phone] Performing Lab: [facility] [phone] EXTRA PURPLE TUBE RECEIVED Jan 28, 2024 05:53 AM [facility] ALBUMIN Specimen Type: PLASMA No comment entered. Ordering Provider: BASHIR CARVAJAL Report Released Date/Time: Jan 27, 2024 04:49 PM Reporting Lab: [facility] [phone] Performing Lab: [facility] [address] ALBUMIN 3.5 g/dL 3.5-5.2 Jan 28, 2024 05:53 AM [facility] BASIC METABOLIC PANEL+MG Specimen Type: PLASMA No comment entered. Ordering Provider: BASHIR CARVAJAL Report Released Date/Time: Jan 27, 2024 05:44 PM Reporting Lab: [facility] [phone] Performing Lab: [facility] [address] CREATININE 1.4 mg/dL H 0.7-1.2 UREA NITROGEN 28 mg/dL H 8-26 GLUCOSE 92 mg/dL 70-100 SODIUM 140 mmol/L 136-145 POTASSIUM 4.4 mmol/L 3.5-5.1 CHLORIDE 109 mmol/L H 98-107 CO2 23 mmol/L 22-29 CALCIUM 8.8 mg/dL 8.4-10.2 MAGNESIUM 2.1 mg/dL 1.6-2.6 ANION GAP 8 mmol/L 5-15 .CREAT EGFR(CKD-EPI) 49 L >60 Jan 28, 2024 05:52 AM [facility] TROPONIN I, HS Specimen Type: PLASMA Comment: Critical value previously reported on patient. Ordering Provider: BRANDON MEJIA Report Released Date/Time: Jan 27, 2024 09:15 PM Reporting Lab: [facility] [phone] Performing Lab: [facility] [phone] TROPONIN I, HS 128 HH <35 Jan 28, 2024 12:35 AM [facility] COVID-19 DIAGNOSTIC PANEL (CEPHEID) Specimen Type: NASOPHARYNGEAL Comment: Cepheid GeneXpert (618) Ordering Provider: LUCAS HAWTHORNE Report Released Date/Time: Jan 27, 2024 04:28 PM Reporting Lab: [facility] [phone] Performing Lab: [facility] [phone] COVID-19 (CEPHEID) Not Detected Not Detected Jan 28, 2024 12:35 AM [facility] HEPARIN APTT Specimen Type: PLASMA Comment: Critical Value Reported To: Deena Oliveros PharmD 01/28/24 @0110 HV. Critical value report confirmed. Ordering Provider: NATALIE ORDOÑEZ Report Released Date/Time: Jan 27, 2024 07:18 PM Reporting Lab: [facility] [phone] Performing Lab: [facility] [phone] HEPARIN APTT 133.9 s HH 48.0-92.0 Jan 28, 2024 12:35 AM [facility] TROPONIN I, HS Specimen Type: PLASMA Comment: Critical value previously reported on patient. Ordering Provider: BRANDON MEJIA Report Released Date/Time: Jan 27, 2024 09:15 PM Reporting Lab: [facility] [phone] Performing Lab: [facility] [address] TROPONIN I, HS 158 HH <35 Jan 27, 2024 09:22 PM [facility] TROPONIN I, HS Specimen Type: PLASMA Comment: Critical value previously reported on patient. Ordering Provider: BASHIR CARVAJAL Report Released Date/Time: Jan 27, 2024 08:38 PM Reporting Lab: [facility] [phone] Performing Lab: [facility] [phone] TROPONIN I, HS 146 HH <35 Jan 27, 2024 06:52 PM [facility] TROPONIN I, HS Specimen Type: PLASMA Comment: Critical Value Reported To: Brandon Mejia MD 01/27/24 @1950 KLM. Critical value report confirmed. Ordering Provider: BASHIR CARVAJAL Report Released Date/Time: Jan 27, 2024 04:54 PM Reporting Lab: [facility] [phone] Performing Lab: [facility] [address] TROPONIN I, HS 136 HH <35 Jan 27, 2024 06:52 PM [facility] BASIC METABOLIC PANEL+MG Specimen Type: PLASMA No comment entered. Ordering Provider: BASHIR CARVAJAL Report Released Date/Time: Jan 27, 2024 04:54 PM Reporting Lab: [facility] [phone] Performing Lab: [facility] [address] CREATININE 1.3 mg/dL H 0.7-1.2 UREA NITROGEN 30 mg/dL H 8-26 GLUCOSE 141 mg/dL H 70-100 SODIUM 142 mmol/L 136-145 POTASSIUM 3.4 mmol/L L 3.5-5.1 CHLORIDE 106 mmol/L 98-107 CO2 27 mmol/L 22-29 CALCIUM 8.8 mg/dL 8.4-10.2 MAGNESIUM 2.2 mg/dL 1.6-2.6 ANION GAP 9 mmol/L 5-15 .CREAT EGFR(CKD-EPI) 54 L >60 Jan 27, 2024 06:52 PM [facility] CBC Specimen Type: BLOOD No comment entered. Ordering Provider: BASHIR CARVAJAL Report Released Date/Time: Jan 27, 2024 04:54 PM Reporting Lab: [facility] [phone] Performing Lab: [facility] [address] WBC 6.0 4.0-11.0 RBC 3.91 L 4.60-6.20 [...] Height Weight Body Mass Index Source Jan 30, 2024 08:00 AM 148.37 23 [place] [facility] Social History: Smoking Status (Most current) [...] 14, 2023 11:30 AM VA-TOBACCO FORMER USER [facility] Tobacco Use History This section includes a history of the smoking, or tobacco-related health factors, that were collected on or before the date of the Encounter. The data comes from the [place] facility where the Encounter took place. Date/Time Smoking Status/Tobacco Use Comment F acility Dec 14, 2023 11:30 AM VA-TOBACCO QUIT 15 YRS OR MORE [facility] Oct 13, 2022 01:30 PM VA-TOBACCO FORMER USER [facility] Oct 13, 2022 01:30 PM VA-TOBACCO QUIT 15 YRS OR MORE [facility] Jul 27, 2021 10:00 AM VA-TOBACCO FORMER USER [facility] Jul 27, 2021 10:00 AM VA-TOBACCO QUIT 15 YRS OR MORE [facility] Jan 02, 2020 09:00 AM VA-TOBACCO FORMER USER [facility] Jan 02, 2020 09:00 AM VA-TOBACCO QUIT 15 YRS OR MORE [facility] Jul 21, 2018 03:00 PM VA-TOBACCO FORMER USER [facility] Jul 21, 2018 03:00 PM VA-TOBACCO QUIT 15 YRS OR MORE [facility] Dec 24, 2016 08:01 AM FORMER TOBACCO USER 7Y OR GREATE R [facility] Dec 23, 2015 08:23 AM FORMER TOBACCO USE >1Y <7Y [facility] Dec 26, 2014 10:32 AM FORMER TOBACCO USER 7Y OR GREATE R [facility] August 13, 2013 08:22 AM LIFETIME NON-TOBACCO USER [facility] August 30, 2006 08:38 AM FORMER TOBACCO USER 7Y OR GREATE R [facility] Advance Directives: All historical and current Section Date Range: From patient's date of to the date document was created. This section includes ALL of a patient's completed or amended [place] Advance and Rescinded Directives. The entries below indicate that a directive exists for the patient, but an actual copy is not included with this document. The data comes from all [facility] facilities. Date Advance Directives Provider Source August 30, 2006 ADVANCE DIRECTIVE ARGENIS CRAMER [facility] Pathology Reports: +/- 30 days [...] COSIGNER: URGENCY: STATUS: COMPLETED $APHDR Reporting Lab: [facility] [CLIA# [id number]] [place] [address] - - - - - - - [...] - PATHOLOGY REPORT Accession No. [id number] - - - - - - - [...] - PATHOLOGY REPORT Accession No. [id number] - - - - - - - [...] 0.1 cm. The specimen is inked. CE. (D)[facility] MICROSCOPIC DESCRIPTION: Microscopic examination performed. CI. 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 STAFF PATHOLOGIST Signed Jan 06, 2024@11:16 Performing Laboratory: Surgical Pathology Report Performed By: [facility] [CLIA# [id number]] [place] [address] $FTR - - - - - - [...] - - MADYSON,GERI NUNEZ STANDARD FORM 515 ID:[id number] SEX:M :1935 AGE: 88 LOC:[id number] PCP: Sariah Gomes MD /shelly/ JOSE REESE M.D. STAFF PATHOLOGIST Signed: 01/06/2024 11:16 JOSE REESE [facility]
--- OUTSIDE RECORDS SUMMARY | 2024-02-10 23:36 | XMS_ITS ---
[place] DAILY HOSPITALIZATION DATA [facility] HCS Encounter Summary Created on: February 10, 2024 GERI COUGHLIN : 1935 Sex: Male Author Name [facility] [place] [facility] [place] Address [address] [place] [address] Care Team Providers Care Loan Representative Name Role Phone SARIAH GOMES Primary Care [...] PART A Sep 09, 2002 PART A [id number] [phone] JOAQUIN COUGHLIN S PATIENT MEDICARE (WNR) MEDICARE (M) PART B Sep 09, 2002 PART B [id number] [phone] JOAQUIN COUGHLIN S PATIENT MEDICARE (WNR) MEDICARE (M) PART A Sep 09, 2002 PART A [id number] JOAQUIN COUGHLIN S PATIENT MEDICARE (WNR) MEDICARE (M) PART B Sep 09, 2002 PART B [id number] JOAQUIN COUGHLIN S PATIENT Selected Encounter This section includes the information on record at [place] for the Encounter. Date/Time Encounter Type Encounter Description Reason Pro vider Source Jan 29, 2024 01:36 AM Inpatient Visit DAILY HOSPITALIZATION DATA [facility] Encounter Template Text not used by [place] Plan of Treatment: Future Appointments (+ 6 months) and Future Tests (+/- 45 days) The Plan of Treatment section includes future care activities for the patient from all [facility]. This section includes future appointments and future orders which are active, pending or scheduled. Future Appointments This section includes appointments that were scheduled to occur 6 months from the date of the Encounter, up to a maximum of 20 appointments. The data comes from all [facility]. Appointment Date/Time Appointment Type Appointme nt Facility Name Feb 21, 2024 10:00 AM AMBULATORY - MEDICINE [facility] Feb 24, 2024 12:15 PM AMBULATORY MEDICINE [facility] Feb 24, 2024 01:00 PM AMBULATORY MEDICINE [facility] Mar 02, 2024 01:00 PM AMBULATORY [...] of theEncounter. The data comes from all [facility]. Test Date/Time Test Type Test Details Facility Name Jan 18, 2024 04:23 PM Consult Order COMMUNITY CARE-ECHOCARDIOGRAPHY [facility] Jan 19, 2024 12:10 PM Consult Order COMMUNITY CARE-DERMATOLOGY [facility] Jan 28, 2024 02:00 AM Laboratory - Chemistry Order TROPONIN I, HS PLASMA STAT WC [facility] Jan 31, 2024 09:30 AM Consult Order CARDIAC REHAB OUTPT Cons Bedside [facility] Jan 31, 2024 10:13 AM Consult Order CARDIOLOGY INTERVENTIONAL CLINIC OUTPT [facility] Lab Results: +/- 30 days of [...] Jan 31, 2024 10:13 AM Reporting Lab: [facility] [phone] Performing Lab: [facility] [address] CHOLESTEROL 125 mg/dL <199 TRIGLYCERIDE 95 mg/dL <149 .HDL 37 mg/dL L >40 LDL CALCULATION 69 mg/dL <99 VLDL CALCULATION 19 mg/dL <29 NON HDL CHOLESTEROL 88 mg/dL <129 Jan 31, 2024 10:50 AM [facility] Jan 31, 2024 10:13 AM Reporting Lab: [facility] [phone] Performing Lab: [facility] [address] HEMOGLOBIN A1C 5.4 4.0-6.0 Jan 31, 2024 07:29 AM [facility] CBC Specimen Type: BLOOD No comment entered. Ordering Provider: BASHIR CARVAJAL Report Released Date/Time: Jan 30, 2024 01:03 PM Reporting Lab: [facility] [address] Performing Lab: [facility] [address] WBC 7.3 4.0-11.0 RBC 3.83 L 4.60-6.20 [...] Jan 30, 2024 01:03 PM Reporting Lab: [facility] [address] Performing Lab: [facility] [address] CREATININE 1.3 mg/dL H 0.7-1.2 UREA NITROGEN [...] Jan 30, 2024 10:43 AM Reporting Lab: [facility] [address] Performing Lab: [facility] [address] POC ACT 241 s H 84-139 Jan 30, 2024 10:08 AM [facility] POC ACT Specimen Type: BLOOD No comment entered. Ordering Provider: RODO CHRISTY Report Released Date/Time: Jan 30, 2024 10:14 AM Reporting Lab: [facility] [address] Performing Lab: [facility] [address] POC ACT 289 s H 84-139 Jan 30, 2024 09:34 AM [facility] POC ACT Specimen Type: BLOOD No comment entered. Ordering Provider: RODO CHRISTY Report Released Date/Time: Jan 30, 2024 10:14 AM Reporting Lab: [facility] [address] Performing Lab: [facility] [address] POC ACT 294 s H 84-139 Jan 30, 2024 05:37 AM [facility] HEPARIN APTT Specimen Type: PLASMA No comment entered. Ordering Provider: BASHIR CARVAJAL Report Released Date/Time: Jan 29, 2024 09:43 PM Reporting Lab: [facility] [address] Performing Lab: [facility] [address] HEPARIN APTT 83.2 s 48.0-92.0 Jan 30, 2024 05:37 AM [facility] BASIC METABOLIC PANEL+MG Specimen Type: PLASMA No comment entered. Ordering Provider: BASHIR CARVAJAL Report Released Date/Time: Jan 29, 2024 12:19 PM Reporting Lab: [facility] [address] Performing Lab: [facility] [address] CREATININE 1.4 mg/dL H 0.7-1.2 UREA NITROGEN [...] Value Reported To: Tomasa Delcid PharmD 01/29/24 @[address] [place] [address]. Critical value report confirmed. Ordering Provider: MERY SAMUEL Report Released Date/Time: Jan 29, 2024 03:00 PM Reporting Lab: [facility] [address] Performing Lab: [facility] [address] HEPARIN APTT 214.6 s HH 48.0-92.0 Jan 29, 2024 06:24 AM [facility] BASIC METABOLIC PANEL+MG Specimen Type: PLASMA No comment entered. Ordering Provider: BASHIR CARVAJAL Report Released Date/Time: Jan 28, 2024 04:36 PM Reporting Lab: [facility] [address] Performing Lab: [facility] [address] CREATININE 1.6 mg/dL H 0.7-1.2 UREA NITROGEN [...] Jan 28, 2024 05:54 AM Reporting Lab: [facility] [address] Performing Lab: [facility] [address] EXTRA PURPLE TUBE RECEIVED Jan 28, 2024 05:53 AM [facility] ALBUMIN Specimen Type: PLASMA No comment entered. Ordering Provider: BASHIR CARVAJAL Report Released Date/Time: Jan 27, 2024 04:49 PM Reporting Lab: [facility] [address] Performing Lab: [facility] [address] ALBUMIN 3.5 g/dL 3.5-5.2 Jan 28, 2024 05:53 AM [facility] BASIC METABOLIC PANEL+MG Specimen Type: PLASMA No comment entered. Ordering Provider: BASHIR CARVAJAL Report Released Date/Time: Jan 27, 2024 05:44 PM Reporting Lab: [facility] [address] Performing Lab: [facility] [address] CREATININE 1.4 mg/dL H 0.7-1.2 UREA NITROGEN [...] Jan 27, 2024 09:15 PM Reporting Lab: [facility] [address] Performing Lab: [facility] [address] TROPONIN I, HS 128 HH <35 Jan 28, 2024 12:35 AM [facility] COVID-19 DIAGNOSTIC PANEL (CEPHEID) Specimen Type: NASOPHARYNGEAL Comment: Cepheid GeneXpert (618) Ordering Provider: LUCAS HAWTHORNE Report Released Date/Time: Jan 27, 2024 04:28 PM Reporting Lab: [facility] [address] Performing Lab: [facility] [address] COVID-19 (CEPHEID) Not Detected Not Detected Jan 28, 2024 12:35 AM [facility] TROPONIN I, HS Specimen Type: PLASMA Comment: Critical value previously reported on patient. Ordering Provider: BRANDON MEJIA Report Released Date/Time: Jan 27, 2024 09:15 PM Reporting Lab: [facility] [address] Performing Lab: [facility] [address] TROPONIN I, HS 158 HH <35 Jan 28, 2024 12:35 AM [facility] HEPARIN APTT Specimen Type: PLASMA Comment: Critical Value Reported To: Deena Oliveros PharmD 01/28/24 @0110 HV. Critical value report confirmed. Ordering Provider: NATALIE ORDOÑEZ Report Released Date/Time: Jan 27, 2024 07:18 PM Reporting Lab: [facility] [address] Performing Lab: [facility] [address] HEPARIN APTT 133.9 s HH 48.0-92.0 Jan 27, 2024 09:22 PM [facility] TROPONIN I, HS Specimen Type: PLASMA Comment: Critical value previously reported on patient. Ordering Provider: BASHIR CARVAJAL Report Released Date/Time: Jan 27, 2024 08:38 PM Reporting Lab: [facility] [address] Performing Lab: [facility] [address] TROPONIN I, HS 146 HH <35 Jan 27, 2024 06:52 PM [facility] TROPONIN I, HS Specimen Type: PLASMA Comment: Critical Value Reported To: Brandon Mejia MD 01/27/24 @1950 KLM. Critical value report confirmed. Ordering Provider: BASHIR CARVAJAL Report Released Date/Time: Jan 27, 2024 04:54 PM Reporting Lab: [facility] [address] Performing Lab: [facility] [address] TROPONIN I, HS 136 HH <35 Jan 27, 2024 06:52 PM [facility] CBC Specimen Type: BLOOD No comment entered. Ordering Provider: BASHIR CARVAJAL Report Released Date/Time: Jan 27, 2024 04:54 PM Reporting Lab: [facility] [address] Performing Lab: [facility] [address] WBC 6.0 4.0-11.0 RBC 3.91 L 4.60-6.20 HGB 12.1 g/dL L 13.5-17.9 HCT 36.5 L 41.0-54.0 MCV 93.4 fL 80.0-100.0 MCH 30.9 pg 27.0-33.0 MCHC 33.2 g/dL 32.0-37.5 PLT 177 150-400 MPV 10.7 fL 9.1-13.0 RDW 12.4 11.5-14.5 Jan 27, 2024 06:52 PM [facility] BASIC METABOLIC PANEL+MG Specimen Type: PLASMA No comment entered. Ordering Provider: BASHIR CARVAJAL Report Released Date/Time: Jan 27, 2024 04:54 PM Reporting Lab: [facility] [address] Performing Lab: [facility] [address] CREATININE 1.3 mg/dL H 0.7-1.2 UREA NITROGEN [...] 15 YRS OR MORE [facility] Tobacco Use History This [...] comes from all [facility]. Date Advance Directives Provider Source August 30, 2006 ADVANCE DIRECTIVE ARGENIS CRAMER [facility] Pathology Reports: +/- 30 days [...] $APHDR Reporting Lab: [facility] [CLIA# [id number]] [place] [address] - - - - - - - [...] - PATHOLOGY REPORT Accession No. [id number] - - - - - - - [...] - PATHOLOGY REPORT Accession No. [id number] - - - - - - - [...] 0.1 cm. The specimen is inked. [facility] MICROSCOPIC DESCRIPTION: Microscopic examination [...] Report Performed By: [facility] [CLIA# [id number]] [place] [address] $FTR - - - - - - [...] - - MADYSON,GERI NUNEZ STANDARD FORM 515 ID:[id number] SEX:M :1935 AGE: 88 LOC:[id number] PCP: Sariah Gomes MD /shelly/ JOSE REESE M.D. STAFF PATHOLOGIST Signed: 01/06/2024 11:16 JOSE REESE [facility]
--- OUTSIDE RECORDS SUMMARY | 2024-02-10 23:37 | XMS_ITS | Encounter Summary ---
Author Name [facility] [place] [place] [facility] [place] [facility] [place] Address [address] [place] [address] Care Team Providers Care Unemployment Specialist Name Role Phone SARIAH GOMES Primary [facility] Insurance Providers: All historical and current Section Date Range: From patient's date of to the date document was created. This section includes the names of all active insurance providers for the patient. Insurance Provider Type of Coverage Plan Name Start of Policy Coverage End of Policy Coverage Group Number Member ID Insurance Provider's Telephone Number Policy Ramirze's Name Patient's Relationship to Policy Ramirez MEDICARE (WNR) MEDICARE (M) PART B Sep 09, 2002 PART B [id number] JOAQUIN COUGHLIN S PATIENT MEDICARE (WNR) MEDICARE (M) PART A Sep 09, 2002 PART A [phone] NULL,JOAQUIN S PATIENT MEDICARE (WNR) MEDICARE (M) PART A Sep 09, 2002 PART A [id number] JOAQUIN COUGHLIN S PATIENT MEDICARE (WNR) MEDICARE (M) PART B Sep 09, 2002 PART B [id number] JOAQUIN COUGHLIN S PATIENT Selected Encounter This section includes the information on record at [place] for the Encounter. Date/Time Encounter Type Encounter Description Reason Provider Source Jan 30, 2024 11:13 AM ENDOLUMINL IVUS OCT C 1ST CARDIAC CATHETERIZATION ICD-10-CM I21.4 Non-ST elevation (NSTEMI) myocardial infarction LUCAS HAWTHORNE Oneyda Encounter Template Text not used by [place] Assessments - Encounter Diagnoses This section includes the primary and secondary diagnoses documented for the Encounter. Date/Time Primary/Secondary Diagnosis Diagnosis Name Provider Source Jan 30, 2024 11:14 AM PRIMARY Non-ST elevation (NSTEMI) myocardial infarction LUCAS HAWTHORNE [facility] Jan 30, 2024 11:14 AM SECONDARY Chronic kidney disease, unspecified [facility] Jan 30, 2024 11:14 AM SECONDARY Hyperlipidemia, unspecified [facility] Jan 30, 2024 11:14 AM SECONDARY Hypertensive chronic kidney disease w stg 1-4/unsp chr kdny [facility] Plan of Treatment: Future Appointments (+ 6 months) and Future Tests (+/- 45 days) The Plan of Treatment section includes future care activities for the patient from [facility] [place] [facility] This section includes future appointments and future orders which are active, pending or scheduled. Future Appointments This section includes appointments that were scheduled to occur 6 months from the date of the Encounter, up to a maximum of 20 appointments. The data comes from all [facility]. Appointment Date/Time Appointment Type Appointme nt Facility Name Feb 21, 2024 10:00 AM AMBULATORY - MEDICINE [facility] Feb 24, 2024 12:15 PM AMBULATORY - MEDICINE [facility] Feb 24, 2024 01:00 PM AMBULATORY - MEDICINE [facility] Mar 02, 2024 01:00 PM AMBULATORY - REHAB MEDICIN E [facility] Active, Pending, and Scheduled Orders This section includes a listing of several types of active, pending, and scheduled orders, including clinic medications orders, diagnostic test orders, procedure orders and consult orders; where the start date of the order is 45 days before the date of the Encounter or 45 days after the date of theEncounter. The data comes from all [facility]. Test Date/Time Test Type Test Details Facility Name Jan 18, 2024 04:23 PM Consult Order COMMUNITY CARE-ECHOCARDIOGRAPHY Cons Charger Operator's Choice [facility] Jan 19, 2024 12:10 PM Consult Order COMMUNITY CARE-DERMATOLOGY Cons [facility] Jan 28, 2024 02:00 AM Laboratory - Chemistry Order TROPONIN I, HS PLASMA STAT WC [facility] Jan 31, 2024 09:30 AM Consult Order CARDIAC REHAB OUTPT Cons Bedside [facility] Jan 31, 2024 10:13 AM Consult Order CARDIOLOGY INTERVENTIONAL CLINIC OUTPT Cons [facility]ger Operator[facility] Choice [facility] Lab Results: +/- 30 days of the encounter This section includes the Chemistry and Hematology Lab Results on record with [place] for the patient. Radiology Reports and Pathology Reports are provided separately, in subsequent sections. Lab Results This section contains the Chemistry/Hematology Results that were resulted 30 days before or 30 daysafter the date of the Encounter. Date/Time Source Result Type Result - Unit Interpretation Reference Range Comment Jan 31, 2024 10:50 AM [facility] HEMOGLOBIN A1C Specimen Type: BLOOD [...] Jan 31, 2024 10:13 AM Reporting Lab: [facility] [phone] Performing Lab: [facility] [phone] HEMOGLOBIN A1C 5.4 4.0-6.0 Jan 31, 2024 10:50 AM [facility] LIPID PANEL,FASTING Specimen Type: PLASMA No comment entered. Ordering Provider: JULIET SMART Report Released Date/Time: Jan 31, 2024 10:13 AM Reporting Lab: [facility] [phone] Performing Lab: [facility] [address] CHOLESTEROL 125 mg/dL <199 TRIGLYCERIDE 95 mg/dL <149 .HDL 37 mg/dL L >40 LDL CALCULATION 69 mg/dL <99 VLDL CALCULATION 19 mg/dL <29 NON HDL CHOLESTEROL 88 mg/dL <129 Jan 31, 2024 07:29 AM [facility] CBC Specimen Type: BLOOD No comment entered. Ordering Provider: BASHIR CARVAJAL Report Released Date/Time: Jan 30, 2024 01:03 PM Reporting Lab: [facility] [address] Performing Lab: [facility] [address] WBC 7.3 4.0-11.0 RBC 3.83 L 4.60-6.20 HGB 11.4 g/dL L 13.5-17.9 HCT 35.1 L 41.0-54.0 MCV 91.6 fL 80.0-100.0 MCH 29.8 pg 27.0-33.0 MCHC 32.5 g/dL 32.0-37.5 PLT 193 150-400 MPV 10.7 fL 9.1-13.0 RDW 12.2 11.5-14.5 Jan 31, 2024 07:29 AM [facility] BASIC METABOLIC PANEL+MG Specimen Type: PLASMA No comment entered. Ordering Provider: BASHIR CARVAJAL Report Released Date/Time: Jan 30, 2024 01:03 PM Reporting Lab: [facility] [phone] Performing Lab: [facility] [address] CREATININE 1.3 mg/dL H 0.7-1.2 UREA NITROGEN 24 mg/dL 8-26 GLUCOSE 91 mg/dL 70-100 SODIUM 138 mmol/L 136-145 POTASSIUM 4.1 mmol/L 3.5-5.1 CHLORIDE 108 mmol/L H 98-107 CO2 23 mmol/L 22-29 CALCIUM 8.8 mg/dL 8.4-10.2 MAGNESIUM 2.1 mg/dL 1.6-2.6 ANION GAP 7 mmol/L 5-15 .CREAT EGFR(CKD-EPI) 54 L >60 Jan 30, 2024 10:37 AM [facility] POC ACT Specimen Type: BLOOD No comment entered. Ordering Provider: RODO CHRISTY Report Released Date/Time: Jan 30, 2024 10:43 AM Reporting Lab: [facility] [phone] Performing Lab: [facility] [address] POC ACT 241 s H 84-139 Jan 30, 2024 10:08 AM [facility] POC ACT Specimen Type: BLOOD No comment entered. Ordering Provider: RODO CHRISTY Report Released Date/Time: Jan 30, 2024 10:14 AM Reporting Lab: [facility] [phone] Performing Lab: [facility] [address] POC ACT 289 s H 84-139 Jan 30, 2024 09:34 AM [facility] POC ACT Specimen Type: BLOOD No comment entered. Ordering Provider: RODO CHRISTY Report Released Date/Time: Jan 30, 2024 10:14 AM Reporting Lab: [facility] [address] Performing Lab: [facility] [address] POC ACT 294 s H 84-139 Jan 30, 2024 05:37 AM [facility] HEPARIN APTT Specimen Type: PLASMA No comment entered. Ordering Provider: BASHIR CARVAJAL Report Released Date/Time: Jan 29, 2024 09:43 PM Reporting Lab: [facility] [address] Performing Lab: [facility] [address] HEPARIN APTT 83.2 s 48.0-92.0 Jan 30, 2024 05:37 AM [facility] BASIC METABOLIC PANEL+MG Specimen Type: PLASMA No comment entered. Ordering Provider: BASHIR CARVAJAL Report Released Date/Time: Jan 29, 2024 12:19 PM Reporting Lab: [facility] [address] Performing Lab: [facility] [address] CREATININE 1.4 mg/dL H 0.7-1.2 UREA NITROGEN 27 mg/dL H 8-26 GLUCOSE 95 mg/dL 70-100 SODIUM 139 mmol/L 136-145 POTASSIUM 4.2 mmol/L 3.5-5.1 CHLORIDE 109 mmol/L H 98-107 CO2 24 mmol/L 22-29 CALCIUM 9.0 mg/dL 8.4-10.2 MAGNESIUM 2.1 mg/dL 1.6-2.6 ANION GAP 6 mmol/L 5-15 .CREAT EGFR(CKD-EPI) 49 L >60 Jan 29, 2024 09:02 PM [facility] HEPARIN APTT Specimen Type: PLASMA Comment: Critical Value Reported To: Tomasa Delcid PharmD 01/29/24 @[address] [place] [address]. Critical value report confirmed. Ordering Provider: MERY SAMUEL Report Released Date/Time: Jan 29, 2024 03:00 PM Reporting Lab: [facility] [address] Performing Lab: [facility] [address] HEPARIN APTT 214.6 s HH 48.0-92.0 Jan 29, 2024 06:24 AM [facility] BASIC METABOLIC PANEL+MG Specimen Type: PLASMA No comment entered. Ordering Provider: BASHIR CARVAJAL Report Released Date/Time: Jan 28, 2024 04:36 PM Reporting Lab: [facility] [address] Performing Lab: [facility] [address] CREATININE 1.6 mg/dL H 0.7-1.2 UREA NITROGEN 27 mg/dL H 8-26 GLUCOSE 92 mg/dL 70-100 SODIUM 140 mmol/L 136-145 POTASSIUM 4.2 mmol/L 3.5-5.1 CHLORIDE 110 mmol/L H 98-107 CO2 25 mmol/L 22-29 CALCIUM 8.8 mg/dL 8.4-10.2 MAGNESIUM 2.1 mg/dL 1.6-2.6 ANION GAP 5 mmol/L 5-15 .CREAT EGFR(CKD-EPI) 42 L >60 Jan 28, 2024 05:54 AM [facility] EXTRA PURPLE TUBE Specimen Type: BLOOD No comment entered. Ordering Provider: RODO CHRISTY Report Released Date/Time: Jan 28, 2024 05:54 AM Reporting Lab: [facility] [address] Performing Lab: [facility] [address] EXTRA PURPLE TUBE RECEIVED Jan 28, 2024 05:53 AM [facility] ALBUMIN Specimen Type: PLASMA No comment entered. Ordering Provider: BASHIR CARVAJAL Report Released Date/Time: Jan 27, 2024 04:49 PM Reporting Lab: [facility] [address] Performing Lab: [facility] [address] ALBUMIN 3.5 g/dL 3.5-5.2 Jan 28, 2024 05:53 AM [facility] BASIC METABOLIC PANEL+MG Specimen Type: PLASMA No comment entered. Ordering Provider: BASHIR CARVAJAL Report Released Date/Time: Jan 27, 2024 05:44 PM Reporting Lab: [facility] [address] Performing Lab: [facility] [address] CREATININE 1.4 mg/dL H 0.7-1.2 UREA NITROGEN 28 mg/dL H 8-26 GLUCOSE 92 mg/dL 70-100 SODIUM 140 mmol/L 136-145 POTASSIUM 4.4 mmol/L 3.5-5.1 CHLORIDE 109 mmol/L H 98-107 CO2 23 mmol/L 22-29 CALCIUM 8.8 mg/dL 8.4-10.2 MAGNESIUM 2.1 mg/dL 1.6-2.6 ANION GAP 8 mmol/L 5-15 .CREAT EGFR(CKD-EPI) 49 L >60 Jan 28, 2024 05:52 AM [facility] TROPONIN I, HS Specimen Type: PLASMA Comment: Critical value previously reported on patient. Ordering Provider: BRANDON MEJIA Report Released Date/Time: Jan 27, 2024 09:15 PM Reporting Lab: [facility] [address] Performing Lab: [facility] [address] TROPONIN I, HS 128 HH <35 Jan 28, 2024 12:35 AM [facility] COVID-19 DIAGNOSTIC PANEL (CEPHEID) Specimen Type: NASOPHARYNGEAL Comment: Cepheid GeneXpert (618) Ordering Provider: LUCAS HAWTHORNE Report Released Date/Time: Jan 27, 2024 04:28 PM Reporting Lab: [facility] [address] Performing Lab: [facility] [address] COVID-19 (CEPHEID) Not Detected Not Detected Jan 28, 2024 12:35 AM [facility] HEPARIN APTT Specimen Type: PLASMA Comment: Critical Value Reported To: Deena Oliveros PharmD 01/28/24 @0110 . Critical value report confirmed. Ordering Provider: NATALIE ORDOÑEZ Report Released Date/Time: Jan 27, 2024 07:18 PM Reporting Lab: [facility] [address] Performing Lab: [facility] [address] HEPARIN APTT 133.9 s HH 48.0-92.0 Jan 28, 2024 12:35 AM [facility] TROPONIN I, HS Specimen Type: PLASMA Comment: Critical value previously reported on patient. Ordering Provider: BRANDON MEJIA Report Released Date/Time: Jan 27, 2024 09:15 PM Reporting Lab: [facility] [address] Performing Lab: [facility] [address] TROPONIN I, HS 158 HH <35 Jan 27, 2024 09:22 PM [facility] TROPONIN I, HS Specimen Type: PLASMA Comment: Critical value previously reported on patient. Ordering Provider: BASHIR CARVAJAL Report Released Date/Time: Jan 27, 2024 08:38 PM Reporting Lab: [facility] [address] Performing Lab: [facility] [address] TROPONIN I, HS 146 HH <35 Jan 27, 2024 06:52 PM [facility] TROPONIN I, HS Specimen Type: PLASMA Comment: Critical Value Reported To: Brandon Mejia MD 01/27/24 @[address] [place] [address]. Critical value report confirmed. Ordering Provider: BASHIR CARVAJAL Report Released Date/Time: Jan 27, 2024 04:54 PM Reporting Lab: [facility] [address] Performing Lab: [facility] [address] TROPONIN I, HS 136 HH <35 Jan 27, 2024 06:52 PM [facility] BASIC METABOLIC PANEL+MG Specimen Type: PLASMA No comment entered. Ordering Provider: BASHIR CARVAJAL Report Released Date/Time: Jan 27, 2024 04:54 PM Reporting Lab: [facility] [address] Performing Lab: [facility] [address] CREATININE 1.3 mg/dL H 0.7-1.2 UREA NITROGEN 30 mg/dL H 8-26 GLUCOSE 141 mg/dL H 70-100 SODIUM 142 mmol/L 136-145 POTASSIUM 3.4 mmol/L L 3.5-5.1 CHLORIDE 106 mmol/L 98-107 CO2 27 mmol/L 22-29 CALCIUM 8.8 mg/dL 8.4-10.2 MAGNESIUM 2.2 mg/dL 1.6-2.6 ANION GAP 9 mmol/L 5-15 .CREAT EGFR(CKD-EPI) 54 L >60 Jan 27, 2024 06:52 PM [facility] CBC Specimen Type: BLOOD No comment entered. Ordering Provider: BASHIR CARVAJAL Report Released Date/Time: Jan 27, 2024 04:54 PM Reporting Lab: [facility] [address] Performing Lab: [facility] [address] WBC 6.0 4.0-11.0 RBC 3.91 L 4.60-6.20 [...] Jan 30, 2024 08:00 AM 148.37 23 [facility] Social History: Smoking Status (Most current) and Tobacco Use (All prior to encounter date) This section includes the most current, and the historical, smoking and tobacco- related health factors from the [place] facility where the Encounter took place. Current Smoking Status This section includes the most current smoking, or tobacco-related health factor, from the [place] facility where the Encounter took place. Date/Time Current Smoking Status Comment Facil ity Dec 14, 2023 11:30 AM VA-TOBACCO FORMER USER [facility] Tobacco Use History This section includes a history of the smoking, or tobacco-related health factors, that were collected on or before the date of the Encounter. The data comes from the [place] facility where the Encounter took place. Date/Time Smoking Status/Tobacco Use Comment F acility Dec 14, 2023 11:30 AM VA-TOBACCO QUIT 15 YRS OR MORE [facility] Oct 13, 2022 01:30 PM VA-TOBACCO FORMER USER [facility] Oct 13, 2022 01:30 PM VA-TOBACCO QUIT 15 YRS OR MORE [facility] Jul 27, 2021 10:00 AM VA-TOBACCO FORMER USER [facility] Jul 27, 2021 10:00 AM VA-TOBACCO QUIT 15 YRS OR MORE [facility] Jan 02, 2020 09:00 AM VA-TOBACCO FORMER USER [facility] Jan 02, 2020 09:00 AM VA-TOBACCO QUIT 15 YRS OR MORE [facility] Jul 21, 2018 03:00 PM VA-TOBACCO FORMER USER [facility] Jul 21, 2018 03:00 PM VA-TOBACCO QUIT 15 YRS OR MORE [facility] Dec 24, 2016 08:01 AM FORMER TOBACCO USER 7Y OR GREATE R [facility] Dec 23, 2015 08:23 AM FORMER TOBACCO USE >1Y <7Y [facility] Dec 26, 2014 10:32 AM FORMER TOBACCO USER 7Y OR GREATE R [facility] August 13, 2013 08:22 AM LIFETIME NON-TOBACCO USER [facility] August 30, 2006 08:38 AM FORMER TOBACCO USER 7Y OR GREATE R [facility] Advance Directives: All historical and current Section Date Range: From patient's date of to the date document was created. This section includes ALL of a patient's completed or amended [place] Advance and Rescinded Directives. The entries below indicate that a directive exists for the patient, but an actual copy is not included with this document. The data comes from all [place] facilities. Date Advance Directives Provider Source August 30, 2006 ADVANCE DIRECTIVE ARGENIS CRAMER [facility] Pathology Reports: +/- 30 days of [...] the Encounter. The data comes from all [place] treatment facilities. Date/Time Pathology Report Provider Source Jan 06, 2024 11:16 AM LR SURGICAL PATHOL OGY REPORT: LOCAL TITLE: LR SURGICAL PATHOLOGY REPORT STANDARD TITLE: PATHOLOGY REPORT DATE OF NOTE: JAN 06, 2024@11:16:39 ENTRY DATE: JAN 06, 2024@11:16:39 AUTHOR: JOSE REESE COSIGNER: URGENCY: STATUS: COMPLETED $APHDR Reporting Lab: [facility] [CLIA# [id number]] [place] [address] - - - - - - - [...] - PATHOLOGY REPORT Accession No. [id number] - - - - - - - [...] - PATHOLOGY REPORT Accession No. [id number] - - - - - - - [...] Performing Laboratory: Surgical Pathology Report Performed By: [facility] [CLIA# [id number]] [place] [address] $FTR - - - - - - [...] - - MADYSON,GERI NUNEZ STANDARD FORM 515 ID:[id number] SEX:M :1935 AGE: 88 LOC:[id number] PCP: Sariah Gomes MD /shelly/ JOSE REESE M.D. STAFF PATHOLOGIST Signed: 01/06/2024 11:16 JOSE REESE [facility] Encounter Notes: All associated encounter notes This section contains the clinical notes associated to the Encounter. Date/Time Encounter Note(s) Provider Source Jan 30, 2024 11:22 AM INTERVENTIONAL CAR DIOLOGY PROCEDURE NOTE: LOCAL TITLE: CARDIAC CATHETERIZATION CART INTERVENTIONAL PROCEDU STANDARD TITLE: INTERVENTIONAL CARDIOLOGY PROCEDURE NOTE DATE OF NOTE: JAN 30, 2024@11:22 ENTRY DATE: JAN 30, 2024@11:22:25 AUTHOR: LUCAS HAWTHORNE EXP COSIGNER: URGENCY: STATUS: COMPLETED [facility] Program for Clinical Assessment, Reporting, and Tracking PERCUTANEOUS CORONARY INTERVENTION REPORT Patient: GERI COUGHLIN SSN: [id number] : 1935 AGE: 88 Procedure Date: 01/30/2024 Associated Assessment: 01/30/2024 Procedure Status: Urgent inpatient procedure Attending: LUCAS HAWTHORNE PROCEDURE INDICATIONS Primary Indication: NSTEMI PROCEDURES PERFORMED PCI Intervention: PCI Diagnostic Procedures: Optical Coherence Tomography (OCT) Other Procedures: Ultrasound guidance for vascular access Moderate sedation TIME-OUT A time-out was performed addressing all safety requirements relevant to the procedure. Type of procedure, site, and patient ID were verified with the patient. Re-assessment was performed immediately prior to conscious sedation and no change was noted. ACCESS Primary Arterial: Ultrasound guided Right Radial access (6F), Hemostasis with radial band INTERVENTIONS PCI Lesion #1: Mid LAD Guide Catheter: XB 3.5, 6 fr Lesion Length: 50 mm Characteristics: Calcified, Serial Risk Assessment: Low Pre-Procedure Stenosis: 90%; MYNOR Flow: 3 - Complete flow Post-Procedure Stenosis: 10%; MYNOR Flow: 3 - Complete flow # Method/Treatment Device/Description 1. PCI Cutting Balloon Scoreflex 3mm x 10mm peak inflation: 20 tha 2. Pre OCT OCT was attempted but there was slow flow due to severe stenosis and dissection from angioplasty. But there was severe calcification in the mid LAD. Distal reference vessel was 3.0 mm in diameter and proximal reference vessel was 3.5 to 4 mm in diameter 3. PCI Stent - SHAQ Orlando Synergy, 3mm x 38mm peak inflation: 12 tha 4. PCI Stent - SHAQ [employer] Synergy, 3.5mm x 24mm peak inflation: 12 tha Overlapping with the distal stent. 5. PCI Balloon NC 3.5mm x 20mm peak inflation: 20 tha 6. PCI Intravascular Lithotripsy 3.0 x12 mm in the mid LAD 120 pulses administered 7. PCI Balloon NC 3.25mm x 12mm peak inflation: 22 tha 8. Post OCT OCT showed no proximal or distal edge dissection. There was slight mall apposition at the proximal edge. There was slight elliptical expansion of the stent at the site of lithotripsy. 9. PCI Balloon NC 4mm x 8mm peak inflation: 12 tha Proximal to mid portion of the stent. 10. PCI Balloon NC 3.5mm x 12mm peak inflation: 20 tha Mid to distal portion of the stent. PROCEDURE DETAILS AND FINDINGS IN-LAB MEDICATIONS Heparin (Unfractionated) Nitroglycerin PCI SUMMARY DATA Summary Data (PCI only totals): Total Contrast: 165 mL Air Kerma: 976 mGy PERIPROCEDURAL COMPLICATIONS No Major Adverse Events or Complications The attending was present throughout the procedure. PROCEDURE SUMMARY Successful lithotripsy and OCT guided PCI of mid LAD with the placement of 3.0 X38 and 3.5X 24 mm overlapping drug-eluting stents which were postdilated with 4.0 and 3.5 mm NC balloons. RECOMMENDATIONS Aspirin 81 mg lifelong along with clopidogrel 75 mg uninterrupted for 1 year after placement of drug-eluting stent. Observe overnight to complete exercise precaution. Aggressive risk factor modification. Follow-up with interventional nurse petitioner 1 month after discharge DEVICES AND MAJOR SUPPLIES # Securities Analyst Description SN/Lot 0: [employer] OpStar Imaging Cath [id number] 1: Travefy Runthrough NS .014 180cm x 3cm Straight [id number] 2: Thinkglue Brite Tip Cath Guide 6F .070in XB [id number] 3: Delver Scoreflex NC Scoring PTCA Catheter 3mm x [id number] 4: [employer] Synergy XD Coronary Drug-Eluting Stent 3 [id number] 5: [employer] Synergy XD Coronary Drug-Eluting Stent 3 [id number] 6: [employer] Synergy XD Coronary Drug-Eluting Stent 3 [id number] 7: Medtronic NC Euphora RX 3.5mm x 20mm* [id number] 8: [employer] NC Emerge MR US 3mm x 15mm [id number] 9: [employer]Pace [employer] Development Medical C2 Plus IVL Catheter 5F 3mm x 12mm x 138 [id number] 10: Medtronic NC Euphora RX 3.25mm x 12mm [id number] 11: Medtronic NC Euphora RX 4mm x 8mm* [id number] 12: [employer] NC Emerge MR US 3.5mm x 12mm [id number] CART-PCI:[id number] 01/30/2024 /shelly/ LUCAS HAWTHORNE MD [employer]ATOR [employer] Signed: 01/30/2024 11:22 LUCAS HAWTHORNE [facility] Jan 30, 2024 11:13 AM INTERVENTIONAL CAR DIOLOGY PROCEDURE NOTE: LOCAL TITLE: CARDIAC NOC ANALYST PROCEDURE NOTE STANDARD TITLE: INTERVENTIONAL CARDIOLOGY PROCEDURE NOTE DATE OF NOTE: JAN 30, 2024@11:13 ENTRY DATE: JAN 30, 2024@11:13:47 AUTHOR: LUCAS HAWTHORNE EXP COSIGNER: URGENCY: STATUS: [facility]TED [facility] Program for Clinical Assessment, Reporting, and Tracking CARDIOVASCULAR DIAGNOSTIC AND THERAPEUTIC PROCEDURE REPORT Patient: GERI COUGHLIN SSN: [id number] : 1935 AGE: 88 Procedure Date: 01/30/2024 Procedure Status: Urgent inpatient procedure Attending: LUCAS HAWTHORNE PROCEDURE INDICATIONS Primary Indication: NSTEMI PROCEDURES PERFORMED Diagnostic Procedures: Coronary Angiography Optical Coherence Tomography (OCT) Other Procedures: Ultrasound guidance for vascular access Moderate sedation TIME-OUT A time-out was performed addressing all safety requirements relevant to the procedure. Type of procedure, site, and patient ID were verified with the patient. The attending has assessed or re-assessed the patient and there are no changes to the pre-procedure assessment. ACCESS Primary Arterial: Ultrasound guided Right Radial access (6F), Hemostasis with radial band CATHETERS Right coronary artery: Terumo [place], 6 fr Left coronary artery: Terumo [place], 6 fr CORONARY ANGIOGRAPHY [place] Vessels Summary: 1 vessel CAD Dominance: Left dominant Stenoses Details Segment Stenosis Length Characteristics and Comments Left Main Luminal irregularities short Proximal LAD Luminal irregularities Mid LAD 90% Serial multiple serial stenosis over a long segment after a high diagonal take off Distal LAD 50% tubular stenosis follwed by luminal irregularities in the wrap around LAD 1st Diagonal Luminal irregularities CIRCUMFLEX (overall) 1st Obtuse Marginal Luminal irregularities 2nd Obtuse Marginal Luminal irregularities 3rd Obtuse Marginal Luminal irregularities Left PL Branch 1 Luminal irregularities Left PDA Luminal irregularities RCA (overall) Luminal irregularities Non dominant note: Stenosis = highest % stenosis within segment IN-LAB MEDICATIONS Fentanyl Heparin (Unfractionated) Midazolam Nitroglycerin Verapamil PERIPROCEDURAL COMPLICATIONS No Major Adverse Events or Complications PREDICTIVE ANALYTICS Risk of adverse events: Low (predicted from [facility] syntax score = 7) The attending was present throughout the procedure. 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 RECOMMENDATIONS PCI of the LAD was performed please see interventional note for full details. PROCEDURE CODING Coding Procedure 17354 Optical Coherence Tomography (OCT) 21065 Ultrasound guidance for vascular access N/A Moderate sedation DEVICES AND MAJOR SUPPLIES # Securities Analyst Description SN/Lot 0: Manyetaonfly OpStar Imaging Cath [id number] 1: Travefy Runthrough NS .014 180cm x 3cm Straight [id number] 2: Thinkglue Brite Tip Cath Guide 6F .070in XB [id number] 3: Delver Scoreflex NC Scoring PTCA Catheter 3mm x [id number] 4: [employer] Synergy XD Coronary Drug-Eluting Stent 3 [id number] 5: [employer] Synergy XD Coronary Drug-Eluting Stent 3 [id number] 6: [employer] Synergy XD Coronary Drug-Eluting Stent 3 [id number] 7: Medtronic NC Euphora RX 3.5mm x 20mm* [id number] 8: [employer] NC Emerge MR US 3mm x 15mm [id number] 9: NewPace [employer] Development Medical C2 Plus IVL Catheter 5F 3mm x 12mm x 138 [id number] 10: Medtronic NC Euphora RX 3.25mm x 12mm [id number] 11: Medtronic NC Euphora RX 4mm x 8mm* [id number] 12: [employer] NC Emerge MR US 3.5mm x 12mm [id number] [facility]:[id number] 01/30/2024 /shelly/ LUCAS HAWTHORNE MD [employer]ATOR [employer] Signed: 01/30/2024 11:15 LUCAS HAWTHORNE [facility]
--- OUTSIDE RECORDS SUMMARY | 2024-02-10 23:37 | XMS_ITS | Encounter Summary ---
Author Name [facility] Address [address] [place] [address] Care Team Providers Care Behaviorist Name Role Phone SARIAH GOMES Primary Care [...] PART A Sep 09, 2002 PART A [id number] JOAQUIN COUGHLIN S PATIENT MEDICARE (WNR) MEDICARE (M) PART B Sep 09, 2002 PART B [id number] JOAQUIN COUGHLIN S PATIENT MEDICARE (WNR) MEDICARE (M) PART A Sep 09, 2002 PART A [id number] NULLJOAQUIN S PATIENT MEDICARE (WNR) MEDICARE (M) PART B Sep 09, 2002 PART B [id number] JOAQUIN COUGHLIN S PATIENT Selected Encounter This section includes the information on record at [place] for the Encounter. Date/Time Encounter Type Encounter Description Reason Pro vider Source Jan 31, 2024 01:01 PM Inpatient Visit EVENT (HISTORICAL) IHE Encounter Template Text not used by [place] Plan of Treatment: Future Appointments (+ 6 months) and Future Tests (+/- 45 days) The Plan of Treatment section includes future care activities for the patient from all [place] [facility]. This section includes future appointments and future orders which are active, pending or scheduled. Future Appointments This section includes appointments that were scheduled to occur 6 months from the date of the Encounter, up to a maximum of 20 appointments. The data comes from all [facility]. Appointment Date/Time Appointment Type Appointme nt Facility Name Feb 21, 2024 10:00 AM AMBULATORY - MEDICINE [facility] Feb 24, 2024 12:15 PM AMBULATORY - MEDICINE [facility] Feb 24, 2024 01:00 PM AMBULATORY MEDICINE [facility] Mar 02, 2024 01:00 PM AMBULATORY - REHAB MEDICIN [facility] Jul 31, 2024 09:20 AM AMBULATORY - SURGERY [facility] Active, Pending, and Scheduled Orders This section includes a listing of several types of active, pending, and scheduled orders, including clinic medications orders, diagnostic test orders, procedure orders and consult orders; where the start date of the order is 45 days before the date of the Encounter or 45 days after the date of theEncounter. The data comes from all [facility]. Test Date/Time Test Type Test Details Facility Name Jan 18, 2024 04:23 PM Consult Order COMMUNITY CARE-ECHOCARDIOGRAPHY Cons [facility] Jan 19, 2024 12:10 PM Consult Order COMMUNITY CARE-DERMATOLOGY [facility] Jan 28, 2024 02:00 AM Laboratory - Chemistry Order TROPONIN I, HS PLASMA STAT WC [facility] Jan 31, 2024 09:30 AM Consult Order CARDIAC REHAB OUTPT Cons Bedside [facility] Jan 31, 2024 10:13 AM Consult Order CARDIOLOGY INTERVENTIONAL CLINIC OUTPT Cons [facility] Lab Results: +/- 30 days of [...] Jan 31, 2024 10:13 AM Reporting Lab: [facility] [address] Performing Lab: [facility] [address] HEMOGLOBIN A1C 5.4 4.0-6.0 Jan 31, 2024 10:50 AM [facility] LIPID PANEL,FASTING Specimen Type: PLASMA No comment entered. Ordering Provider: JULIET SMART Report Released Date/Time: Jan 31, 2024 10:13 AM Reporting Lab: [facility] [address] Performing Lab: [facility] [address] CHOLESTEROL 125 mg/dL <199 TRIGLYCERIDE 95 mg/dL <149 .HDL 37 mg/dL L >40 LDL CALCULATION 69 mg/dL <99 VLDL CALCULATION 19 mg/dL <29 NON HDL CHOLESTEROL 88 mg/dL <129 Jan 31, 2024 07:29 AM [facility] CBC Specimen Type: BLOOD No comment entered. Ordering Provider: BASHIR CARVAJAL Report Released Date/Time: Jan 30, 2024 01:03 PM Reporting Lab: [facility] [address] Performing Lab: [facility] [address] WBC 7.3 4.0-11.0 RBC 3.83 L 4.60-6.20 [...] Jan 30, 2024 01:03 PM Reporting Lab: [facility] [address] Performing Lab: [facility] [address] CREATININE 1.3 mg/dL H 0.7-1.2 UREA NITROGEN [...] Jan 30, 2024 10:43 AM Reporting Lab: [facility] [address] Performing Lab: [facility] [address] POC ACT 241 s H 84-139 Jan 30, 2024 10:08 AM [facility] POC ACT Specimen Type: BLOOD No comment entered. Ordering Provider: RODO CHRISTY Report Released Date/Time: Jan 30, 2024 10:14 AM Reporting Lab: [facility] [address] Performing Lab: [facility] [address] POC ACT 289 s H 84-139 Jan 30, 2024 09:34 AM [facility] POC ACT Specimen Type: BLOOD No comment entered. Ordering Provider: RODO CHRISTY Report Released Date/Time: Jan 30, 2024 10:14 AM Reporting Lab: [facility] [address] Performing Lab: [facility] [address] POC ACT 294 s H 84-139 Jan 30, 2024 05:37 AM [facility] HEPARIN APTT Specimen Type: PLASMA No comment entered. Ordering Provider: BASHIR CARVAJAL Report Released Date/Time: Jan 29, 2024 09:43 PM Reporting Lab: [facility] [address] Performing Lab: [facility] [address] HEPARIN APTT 83.2 s 48.0-92.0 Jan 30, 2024 05:37 AM [facility] BASIC METABOLIC PANEL+MG Specimen Type: PLASMA No comment entered. Ordering Provider: BASHIR CARVAJAL Report Released Date/Time: Jan 29, 2024 12:19 PM Reporting Lab: [facility] [address] Performing Lab: [facility] [address] CREATININE 1.4 mg/dL H 0.7-1.2 UREA NITROGEN [...] Value Reported To: Tomasa Delcid PharmD 01/29/24 @[address] [place] [address]. Critical value report confirmed. Ordering Provider: MERY SAMUEL Report Released Date/Time: Jan 29, 2024 03:00 PM Reporting Lab: [facility] [address] Performing Lab: [facility] [address] HEPARIN APTT 214.6 s HH 48.0-92.0 Jan 29, 2024 06:24 AM [facility] BASIC METABOLIC PANEL+MG Specimen Type: PLASMA No comment entered. Ordering Provider: BASHIR CARVAJAL Report Released Date/Time: Jan 28, 2024 04:36 PM Reporting Lab: [facility] [address] Performing Lab: [facility] [address] CREATININE 1.6 mg/dL H 0.7-1.2 UREA NITROGEN [...] Jan 28, 2024 05:54 AM Reporting Lab: [facility] [address] Performing Lab: [facility] [address] EXTRA PURPLE TUBE RECEIVED Jan 28, 2024 05:53 AM [facility] ALBUMIN Specimen Type: PLASMA No comment entered. Ordering Provider: BASHIR CARVAJAL Report Released Date/Time: Jan 27, 2024 04:49 PM Reporting Lab: [facility] [address] Performing Lab: [facility] [address] ALBUMIN 3.5 g/dL 3.5-5.2 Jan 28, 2024 05:53 AM [facility] BASIC METABOLIC PANEL+MG Specimen Type: PLASMA No comment entered. Ordering Provider: BASHIR CARVAJAL Report Released Date/Time: Jan 27, 2024 05:44 PM Reporting Lab: [facility] [address] Performing Lab: [facility] [address] CREATININE 1.4 mg/dL H 0.7-1.2 UREA NITROGEN [...] Jan 27, 2024 09:15 PM Reporting Lab: [facility] [address] Performing Lab: [facility] [address] TROPONIN I, HS 128 HH <35 Jan 28, 2024 12:35 AM [facility] COVID-19 DIAGNOSTIC PANEL (CEPHEID) Specimen Type: NASOPHARYNGEAL Comment: Cepheid GeneXpert (618) Ordering Provider: LUCAS HAWTHORNE Report Released Date/Time: Jan 27, 2024 04:28 PM Reporting Lab: [facility] [address] Performing Lab: [facility] [address] COVID-19 (CEPHEID) Not Detected Not Detected Jan 28, 2024 12:35 AM [facility] HEPARIN APTT Specimen Type: PLASMA Comment: Critical Value Reported To: Deena Oliveros PharmD 01/28/24 @0110 HV. Critical value report confirmed. Ordering Provider: NATALIE ORDOÑEZ Report Released Date/Time: Jan 27, 2024 07:18 PM Reporting Lab: [facility] [address] Performing Lab: [facility] [address] HEPARIN APTT 133.9 s HH 48.0-92.0 Jan 28, 2024 12:35 AM [facility] TROPONIN I, HS Specimen Type: PLASMA Comment: Critical value previously reported on patient. Ordering Provider: BRANDON MEJIA Report Released Date/Time: Jan 27, 2024 09:15 PM Reporting Lab: [facility] [address] Performing Lab: [facility] [address] TROPONIN I, HS 158 HH <35 Jan 27, 2024 09:22 PM [facility] TROPONIN I, HS Specimen Type: PLASMA Comment: Critical value previously reported on patient. Ordering Provider: BASHIR CARVAJAL Report Released Date/Time: Jan 27, 2024 08:38 PM Reporting Lab: [facility] [address] Performing Lab: [facility] [address] TROPONIN I, HS 146 HH <35 Jan 27, 2024 06:52 PM [facility] TROPONIN I, HS Specimen Type: PLASMA Comment: Critical Value Reported To: Brandon Mejia MD 01/27/24 @1950 KL. Critical value report confirmed. Ordering Provider: BASHIR CARVAJAL Report Released Date/Time: Jan 27, 2024 04:54 PM Reporting Lab: [facility] [address] Performing Lab: [facility] [address] TROPONIN I, HS 136 HH <35 Jan 27, 2024 06:52 PM [facility] BASIC METABOLIC PANEL+MG Specimen Type: PLASMA No comment entered. Ordering Provider: BASHIR CARVAJAL Report Released Date/Time: Jan 27, 2024 04:54 PM Reporting Lab: [facility] [address] Performing Lab: [facility] [address] CREATININE 1.3 mg/dL H 0.7-1.2 UREA NITROGEN [...] Jan 27, 2024 04:54 PM Reporting Lab: [facility] [address] Performing Lab: [facility] [address] WBC 6.0 4.0-11.0 RBC 3.91 L 4.60-6.20 [...] The data comes from all [facility]. Date Advance Directives Provider Source August 30, 2006 ADVANCE DIRECTIVE ARGENIS CRAEMR [facility] Pathology Reports: [...] COMPLETED $APHDR Reporting Lab: [facility] [CLIA# [id number]] [place] [address] - - - - - - - [...] - PATHOLOGY REPORT Accession No. [id number] - - - - - - - [...] - PATHOLOGY REPORT Accession No. [id number] - - - - - - - [...] 0.1 cm. The specimen is inked. CE. [facility]: Microscopic examination performed. CI. DIAGNOSES: [...] Pathology Report Performed By: [facility] [CLIA# [id number]] [place] [address] $FTR - - - - - - [...] - - GERI COUGHLIN STANDARD FORM 515 ID:[id number] SEX:M :[id number] AGE: 88 LOC:[id number] PCP: Sariah Gomes MD /shelly/ JOSE REESE M.D. STAFF PATHOLOGIST Signed: 01/06/2024 11:16 JOSE REESE [facility]
--- OUTSIDE RECORDS SUMMARY | 2024-02-10 23:37 | XMS_ITS | Encounter Summary ---
Author Name [facility] [place] [facility] [place] [facility] [place] Address [address] [place] [id number] Care Team Providers Care Conductor/Brakeman Name Role Phone SARIAH GOMES Primary Care [...] Policy [place] MEDICARE (WNR) MEDICARE (M) PART A Sep 09, 2002 PART A [id number] MADYSON,JOAQUIN S PATIENT MEDICARE (WNR) MEDICARE (M) PART B Sep 09, 2002 PART B [phone] NULL,JOAQUIN S PATIENT MEDICARE (WNR) MEDICARE (M) PART A Sep 09, 2002 PART A [id number] NULLJOAQUIN S PATIENT MEDICARE (WNR) MEDICARE (M) PART B Sep 09, 2002 PART B [id number] MADYSON,JOAQUIN S PATIENT Selected Encounter This section includes the information on record at [place] for the Encounter. Date/Time Encounter Type Encounter Description Reason Pro vider Source Jan 30, 2024 01:00 AM Inpatient Visit ADMIN PAT ACTIVTIES (MASNONCT) SYSTEM,CIS-ARK IHE Encounter Template Text not used by [place] Plan of Treatment: Future Appointments (+ 6 months) and Future Tests (+/- 45 days) The Plan of Treatment section includes future care activities for the patient from all [place] [facility]. This section includes future appointments and future orders which are active, pending or scheduled. Future Appointments This section includes appointments that were scheduled to occur 6 months from the date of the Encounter, up to a maximum of 20 appointments. The data comes from all [facility]. Appointment Date/Time Appointment Type Appointme nt Facility Name Feb 21, 2024 10:00 AM AMBULATORY - MEDICINE [facility] Feb 24, 2024 12:15 PM AMBULATORY MEDICINE [facility] Feb 24, 2024 01:00 PM AMBULATORY MEDICINE [facility] Mar 02, 2024 01:00 PM AMBULATORY - REHAB MEDICIN E [facility] Active, Pending, and Scheduled Orders This section includes a listing of several types of active, pending, and scheduled orders, including clinic medications orders, diagnostic test orders, procedure orders and consult orders; where the start date of the order is 45 days before the date of the Encounter or 45 days after the date of theEncounter. The data comes from all [facility]. Test Date/Time Test Type Test Details Facility Name Jan 18, 2024 04:23 PM Consult Order COMMUNITY CARE-ECHOCARDIOGRAPHY Cons [employer] [facility] Jan 19, 2024 12:10 PM Consult Order COMMUNITY CARE-DERMATOLOGY [facility] Jan 28, 2024 02:00 AM Laboratory - Chemistry Order TROPONIN I, HS PLASMA STAT WC [facility] Jan 31, 2024 09:30 AM Consult Order CARDIAC REHAB OUTPT Cons Bedside [facility] Jan 31, 2024 10:13 AM Consult Order CARDIOLOGY INTERVENTIONAL CLINIC OUTPT Cons [employer] [facility] Lab Results: +/- 30 days of the encounter This section includes the Chemistry and Hematology Lab Results on record with [place] for the patient. Radiology Reports and Pathology Reports are provided separately, in subsequent sections. Lab Results This section contains the Chemistry/Hematology Results that were resulted 30 days before or 30 daysafter the date of the Encounter. Date/Time Source Result Type Result - Unit Interpretation Reference Range Comment Jan 31, 2024 10:50 AM [facility] HEMOGLOBIN A1C Specimen Type: BLOOD Comment: Values [...] 2024 10:13 AM Reporting Lab: [facility] [phone] Performing Lab: [facility] [phone] HEMOGLOBIN A1C 5.4 4.0-6.0 Jan 31, 2024 10:50 AM [facility] LIPID PANEL,FASTING Specimen Type: PLASMA No comment entered. Ordering Provider: JULIET SMART Report Released Date/Time: Jan 31, 2024 10:13 AM Reporting Lab: [facility] [phone] Performing Lab: [facility] [phone] CHOLESTEROL 125 mg/dL <199 TRIGLYCERIDE 95 mg/dL <149 .HDL 37 mg/dL L >40 LDL CALCULATION 69 mg/dL <99 VLDL CALCULATION 19 mg/dL <29 NON HDL CHOLESTEROL 88 mg/dL <129 Jan 31, 2024 07:29 AM [facility] CBC Specimen Type: BLOOD No comment entered. Ordering Provider: BASHIR CARVAJAL Report Released Date/Time: Jan 30, 2024 01:03 PM Reporting Lab: [facility] [phone] Performing Lab: [facility] [phone] WBC 7.3 4.0-11.0 RBC 3.83 L 4.60-6.20 HGB 11.4 g/dL L 13.5-17.9 HCT 35.1 L 41.0-54.0 MCV 91.6 fL 80.0-100.0 MCH 29.8 pg 27.0-33.0 MCHC 32.5 g/dL 32.0-37.5 PLT 193 150-400 MPV 10.7 fL 9.1-13.0 RDW 12.2 11.5-14.5 Jan 31, 2024 07:29 AM [facility] BASIC METABOLIC PANEL+MG Specimen Type: PLASMA No comment entered. Ordering Provider: BASHIR CARVAJAL Report Released Date/Time: Jan 30, 2024 01:03 PM Reporting Lab: [facility] [phone] Performing Lab: [facility] [address] CREATININE 1.3 mg/dL H 0.7-1.2 UREA NITROGEN 24 mg/dL 8-26 GLUCOSE 91 mg/dL 70-100 SODIUM 138 mmol/L 136-145 POTASSIUM 4.1 mmol/L 3.5-5.1 CHLORIDE 108 mmol/L H 98-107 CO2 23 mmol/L 22-29 CALCIUM 8.8 mg/dL 8.4-10.2 MAGNESIUM 2.1 mg/dL 1.6-2.6 ANION GAP 7 mmol/L 5-15 .CREAT EGFR(CKD-EPI) 54 L >60 Jan 30, 2024 10:37 AM [facility] POC ACT Specimen Type: BLOOD No comment entered. Ordering Provider: RODO CHRISTY Report Released Date/Time: Jan 30, 2024 10:43 AM Reporting Lab: [facility] [phone] Performing Lab: [facility] [address] POC ACT 241 s H 84-139 Jan 30, 2024 10:08 AM [facility] POC ACT Specimen Type: BLOOD No comment entered. Ordering Provider: RODO CHRISTY Report Released Date/Time: Jan 30, 2024 10:14 AM Reporting Lab: [facility] [phone] Performing Lab: [facility] [phone] POC ACT 289 s H 84-139 Jan 30, 2024 09:34 AM [facility] POC ACT Specimen Type: BLOOD No comment entered. Ordering Provider: RODO CHRISTY Report Released Date/Time: Jan 30, 2024 10:14 AM Reporting Lab: [facility] [phone] Performing Lab: [facility] [address] POC ACT 294 s H 84-139 Jan 30, 2024 05:37 AM [facility] HEPARIN APTT Specimen Type: PLASMA No comment entered. Ordering Provider: BASHIR CARVAJAL Report Released Date/Time: Jan 29, 2024 09:43 PM Reporting Lab: [facility] [phone] Performing Lab: [facility] [phone] HEPARIN APTT 83.2 s 48.0-92.0 Jan 30, 2024 05:37 AM [facility] BASIC METABOLIC PANEL+MG Specimen Type: PLASMA No comment entered. Ordering Provider: BASHIR CARVAJAL Report Released Date/Time: Jan 29, 2024 12:19 PM Reporting Lab: [facility] [phone] Performing Lab: [facility] [phone] CREATININE 1.4 mg/dL H 0.7-1.2 UREA NITROGEN 27 mg/dL H 8-26 GLUCOSE 95 mg/dL 70-100 SODIUM 139 mmol/L 136-145 POTASSIUM 4.2 mmol/L 3.5-5.1 CHLORIDE 109 mmol/L H 98-107 CO2 24 mmol/L 22-29 CALCIUM 9.0 mg/dL 8.4-10.2 MAGNESIUM 2.1 mg/dL 1.6-2.6 ANION GAP 6 mmol/L 5-15 .CREAT EGFR(CKD-EPI) 49 L >60 Jan 29, 2024 09:02 PM [facility] HEPARIN APTT Specimen Type: PLASMA Comment: Critical Value Reported To: Tomasa Delcid PharmD 01/29/24 @[address] [place] [address]. Critical value report confirmed. Ordering Provider: MERY SAMUEL Report Released Date/Time: Jan 29, 2024 03:00 PM Reporting Lab: [facility] [phone] Performing Lab: [facility] [address] HEPARIN APTT 214.6 s HH 48.0-92.0 Jan 29, 2024 06:24 AM [facility] BASIC METABOLIC PANEL+MG Specimen Type: PLASMA No comment entered. Ordering Provider: BASHIR CARVAJAL Report Released Date/Time: Jan 28, 2024 04:36 PM Reporting Lab: [facility] [phone] Performing Lab: [facility] [phone] CREATININE 1.6 mg/dL H 0.7-1.2 UREA NITROGEN 27 mg/dL H 8-26 GLUCOSE 92 mg/dL 70-100 SODIUM 140 mmol/L 136-145 POTASSIUM 4.2 mmol/L 3.5-5.1 CHLORIDE 110 mmol/L H 98-107 CO2 25 mmol/L 22-29 CALCIUM 8.8 mg/dL 8.4-10.2 MAGNESIUM 2.1 mg/dL 1.6-2.6 ANION GAP 5 mmol/L 5-15 .CREAT EGFR(CKD-EPI) 42 L >60 Jan 28, 2024 05:54 AM [facility] EXTRA PURPLE TUBE Specimen Type: BLOOD No comment entered. Ordering Provider: RODO CHRISTY Report Released Date/Time: Jan 28, 2024 05:54 AM Reporting Lab: [facility] [phone] Performing Lab: [facility] [phone] EXTRA PURPLE TUBE RECEIVED Jan 28, 2024 05:53 AM [facility] ALBUMIN Specimen Type: PLASMA No comment entered. Ordering Provider: BASHIR CARVAJAL Report Released Date/Time: Jan 27, 2024 04:49 PM Reporting Lab: [facility] [phone] Performing Lab: [facility] [address] ALBUMIN 3.5 g/dL 3.5-5.2 Jan 28, 2024 05:53 AM [facility] BASIC METABOLIC PANEL+MG Specimen Type: PLASMA No comment entered. Ordering Provider: BASHIR CARVAJAL Report Released Date/Time: Jan 27, 2024 05:44 PM Reporting Lab: [facility] [phone] Performing Lab: [facility] [phone] CREATININE 1.4 mg/dL H 0.7-1.2 UREA NITROGEN 28 mg/dL H 8-26 GLUCOSE 92 mg/dL 70-100 SODIUM 140 mmol/L 136-145 POTASSIUM 4.4 mmol/L 3.5-5.1 CHLORIDE 109 mmol/L H 98-107 CO2 23 mmol/L 22-29 CALCIUM 8.8 mg/dL 8.4-10.2 MAGNESIUM 2.1 mg/dL 1.6-2.6 ANION GAP 8 mmol/L 5-15 .CREAT EGFR(CKD-EPI) 49 L >60 Jan 28, 2024 05:52 AM [facility] TROPONIN I, HS Specimen Type: PLASMA Comment: Critical value previously reported on patient. Ordering Provider: BRANDON MEJIA Report Released Date/Time: Jan 27, 2024 09:15 PM Reporting Lab: [facility] [phone] Performing Lab: [facility] [phone] TROPONIN I, HS 128 HH <35 Jan 28, 2024 12:35 AM [facility] COVID-19 DIAGNOSTIC PANEL (CEPHEID) Specimen Type: NASOPHARYNGEAL Comment: Cepheid GeneXpert (618) Ordering Provider: LUCAS HAWTHORNE Report Released Date/Time: Jan 27, 2024 04:28 PM Reporting Lab: [facility] [phone] Performing Lab: [facility] [phone] COVID-19 (CEPHEID) Not Detected Not Detected Jan 28, 2024 12:35 AM [facility] TROPONIN I, HS Specimen Type: PLASMA Comment: Critical value previously reported on patient. Ordering Provider: BRANDON MEJIA Report Released Date/Time: Jan 27, 2024 09:15 PM Reporting Lab: [facility] [phone] Performing Lab: [facility] [phone] TROPONIN I, HS 158 HH <35 Jan 28, 2024 12:35 AM [facility] HEPARIN APTT Specimen Type: PLASMA Comment: Critical Value Reported To: Deena Oliveros PharmD 01/28/24 @0110 HV. Critical value report confirmed. Ordering Provider: NATALIE ORDOÑEZ Report Released Date/Time: Jan 27, 2024 07:18 PM Reporting Lab: [facility] [phone] Performing Lab: [facility] [phone] HEPARIN APTT 133.9 s HH 48.0-92.0 Jan 27, 2024 09:22 PM [facility] TROPONIN I, HS Specimen Type: PLASMA Comment: Critical value previously reported on patient. Ordering Provider: BASHIR CARVAJAL Report Released Date/Time: Jan 27, 2024 08:38 PM Reporting Lab: [facility] [phone] Performing Lab: [facility] [address] TROPONIN I, HS 146 HH <35 Jan 27, 2024 06:52 PM [facility] TROPONIN I, HS Specimen Type: PLASMA Comment: Critical Value Reported To: Brandon Mejia MD 01/27/24 @1950 KLM. Critical value report confirmed. Ordering Provider: BASHIR CARVAJAL Report Released Date/Time: Jan 27, 2024 04:54 PM Reporting Lab: [facility] [phone] Performing Lab: [facility] [phone] TROPONIN I, HS 136 HH <35 Jan 27, 2024 06:52 PM [facility] BASIC METABOLIC PANEL+MG Specimen Type: PLASMA No comment entered. Ordering Provider: BASHIR CARVAJAL Report Released Date/Time: Jan 27, 2024 04:54 PM Reporting Lab: [facility] [phone] Performing Lab: [facility] [phone] CREATININE 1.3 mg/dL H 0.7-1.2 UREA NITROGEN 30 mg/dL H 8-26 GLUCOSE 141 mg/dL H 70-100 SODIUM 142 mmol/L 136-145 POTASSIUM 3.4 mmol/L L 3.5-5.1 CHLORIDE 106 mmol/L 98-107 CO2 27 mmol/L 22-29 CALCIUM 8.8 mg/dL 8.4-10.2 MAGNESIUM 2.2 mg/dL 1.6-2.6 ANION GAP 9 mmol/L 5-15 .CREAT EGFR(CKD-EPI) 54 L >60 Jan 27, 2024 06:52 PM [facility] CBC Specimen Type: BLOOD No comment entered. Ordering Provider: BASHIR CARVAJAL Report Released Date/Time: Jan 27, 2024 04:54 PM Reporting Lab: [facility] [phone] Performing Lab: [facility] [address] WBC 6.0 4.0-11.0 RBC 3.91 L 4.60-6.20 [...] Jan 30, 2024 08:00 AM 148.37 23 [facility] Social History: Smoking Status (Most current) and Tobacco Use (All prior to encounter date) This section includes the most current, and the historical, smoking and tobacco- related health factors from the [place] facility where the Encounter took place. Current Smoking Status This section includes the most current smoking, or tobacco-related health factor, from the [place] facility where the Encounter took place. Date/Time Current Smoking Status Comment Facil ity Dec 14, 2023 11:30 AM VA-TOBACCO FORMER USER [facility] Tobacco Use History This section includes a history of the smoking, or tobacco-related health factors, that were collected on or before the date of the Encounter. The data comes from the [place] facility where the Encounter took place. Date/Time Smoking Status/Tobacco Use Comment F acility Dec 14, 2023 11:30 AM VA-TOBACCO QUIT 15 YRS OR MORE [facility] Oct 13, 2022 01:30 PM VA-TOBACCO FORMER USER [facility] Oct 13, 2022 01:30 PM VA-TOBACCO QUIT 15 YRS OR MORE [facility] Jul 27, 2021 10:00 AM VA-TOBACCO FORMER USER [facility] Jul 27, 2021 10:00 AM VA-TOBACCO QUIT 15 YRS OR MORE [facility] Jan 02, 2020 09:00 AM VA-TOBACCO FORMER USER [facility] Jan 02, 2020 09:00 AM VA-TOBACCO QUIT 15 YRS OR MORE [facility] Jul 21, 2018 03:00 PM VA-TOBACCO FORMER USER [facility] Jul 21, 2018 03:00 PM VA-TOBACCO QUIT 15 YRS OR MORE [facility] Dec 24, 2016 08:01 AM FORMER TOBACCO USER 7Y OR GREATE R [facility] Dec 23, 2015 08:23 AM FORMER TOBACCO USE >1Y <7Y [facility] Dec 26, 2014 10:32 AM FORMER TOBACCO USER 7Y OR GREATE R [facility] August 13, 2013 08:22 AM LIFETIME NON-TOBACCO USER [facility] August 30, 2006 08:38 AM FORMER TOBACCO USER 7Y OR GREATE R [facility] Advance Directives: All historical and current Section Date Range: From patient's date of to the date document was created. This section includes ALL of a patient's completed or amended [place] Advance and Rescinded Directives. The entries below indicate that a directive exists for the patient, but an actual copy is not included with this document. The data comes from all [place] facilities. Date Advance Directives Provider Source August [...] the Encounter. The data comes from all [place] treatment facilities. Date/Time Pathology Report Provider Source Jan 06, 2024 11:16 AM [facility] SURGICAL PATHOL OGY REPORT: LOCAL TITLE: LR SURGICAL PATHOLOGY REPORT STANDARD TITLE: PATHOLOGY REPORT DATE OF NOTE: JAN 06, 2024@11:16:39 ENTRY DATE: JAN 06, 2024@11:16:39 AUTHOR: JOSE REESE COSIGNER: URGENCY: STATUS: COMPLETED $APHDR Reporting Lab: [facility] [CLIA# [id number]] [place] [address] - - - - - - - [...] - PATHOLOGY REPORT Accession No. [id number] - - - - - - - [...] - PATHOLOGY REPORT Accession No. [id number] - - - - - - - [...] 0.1 cm. The specimen is inked. CE. (D)[facility] [place]CROSCOPIC DES[place]: Microscopic examination [...] Performing Laboratory: Surgical Pathology Report Performed By: [facility] [CLIA# [id number]] [place] [address] $FTR - - - - - - [...] - - MADYSON,GERI NUNEZ STANDARD FORM 515 ID:[id number] SEX:M :[id number] AGE: 88 LOC:[id number] PCP: Sariah Gomes MD /shelly/ JOSE REESE M.D. STAFF PATHOLOGIST Signed: 01/06/2024 11:16 JOSE REESE [facility] Encounter Notes: All associated encounter notes This section contains the clinical notes associated to the Encounter. Date/Time Encounter Note(s) Provider Source Jan 30, 2024 01:00 AM CRITICAL CARE UNIT NOTE: LOCAL TITLE: [facility] INPATIENT FLOWSHEET STANDARD TITLE: CRITICAL CARE UNIT NOTE DATE OF NOTE: JAN 30, 2024@01:00 ENTRY DATE: JAN 31, 2024@14:37:37 AUTHOR: SYSTEM,CIS-ARK EXP COSIGNER: URGENCY: STATUS: COMPLETED This is a place barron only. Please see FitBark to view document. /es/ CIS-ARK SYSTEM ICU DOCUMENT IMPORT Signed: 01/31/2024 14:37 SYSTEM,CIS-ARK [facility] Jan 30, 2024 01:00 AM CRITICAL CARE UNIT NOTE: LOCAL TITLE: [facility] RESPIRATORY THERAPY FLOWSHEET STANDARD TITLE: CRITICAL CARE UNIT NOTE DATE OF NOTE: JAN 30, 2024@01:00 ENTRY DATE: JAN 31, 2024@15:06:11 AUTHOR: SYSTEM,CIS-ARK EXP COSIGNER: URGENCY: STATUS: COMPLETED This is a place barron only. Please see FitBark to view document. /es/ CIS-ARK SYSTEM ICU DOCUMENT IMPORT Signed: 01/31/2024 15:06 SYSTEM,CIS-ARK [facility]
--- OUTSIDE RECORDS SUMMARY | 2024-02-10 23:37 | XMS_ITS | Encounter Summary ---
Author Name [facility] [place] [facility] [place] Organization [facility] [place] Address [address] [place] [address] Care Team Providers Care Wild Life Manager Name Role Phone SARIAH GOMES Primary [...] PART A Sep 09, 2002 PART A [id number] [phone] JOAQUIN COUGHLIN S PATIENT MEDICARE (WNR) MEDICARE (M) PART B Sep 09, 2002 PART B [id number] [phone] JOAQUIN COUGHLIN S PATIENT MEDICARE (WNR) MEDICARE (M) PART A Sep 09, 2002 PART A [id number] JOAQUIN COUGHLIN S PATIENT MEDICARE (WNR) MEDICARE (M) PART B Sep 09, 2002 PART B [id number] JOAQUIN COUGHLIN S PATIENT Selected Encounter This section includes the information on record at [place] for the Encounter. Date/Time Encounter Type Encounter Description Reason Pro vider Source Jan 31, 2024 11:16 AM Inpatient Visit CLINICAL PHARMACY IHE Encounter Template Text not used by [place] Plan of Treatment: Future Appointments (+ 6 months) and Future Tests (+/- 45 days) The Plan of Treatment section includes future care activities for the [facility] [place] [facility] This section includes future appointments and future orders which are active, pending or scheduled. Future Appointments This section includes appointments that were scheduled to occur 6 months from the date of the Encounter, up to a maximum of 20 appointments. The data comes from all [facility]. Appointment Date/Time Appointment Type Appointme nt Facility Name Feb 21, 2024 10:00 AM AMBULATORY - MEDICINE [facility] Feb 24, 2024 12:15 PM AMBULATORY - MEDICINE [facility] Feb 24, 2024 01:00 PM AMBULATORY MEDICINE [facility] Mar 02, 2024 01:00 PM AMBULATORY - REHAB MEDICIN [facility] Jul 31, 2024 09:20 AM AMBULATORY - SURGERY [facility] Active, Pending, and Scheduled Orders This section includes a listing of several types of active, pending, and scheduled orders, including clinic medications orders, diagnostic test orders, procedure orders and consult orders; where the start date of the order is 45 days before the date of the Encounter or 45 days after the date of theEncounter. The data comes from all [facility]. Test Date/Time Test Type Test Details Facility Name Jan 18, 2024 04:23 PM Consult Order COMMUNITY CARE-ECHOCARDIOGRAPHY [facility] Jan 19, 2024 12:10 PM Consult Order COMMUNITY CARE-DERMATOLOGY [facility] Jan 28, 2024 02:00 AM Laboratory - Chemistry Order TROPONIN I, HS PLASMA STAT WC [facility] Jan 31, 2024 09:30 AM Consult Order CARDIAC REHAB OUTPT Cons Bedside [facility] Jan 31, 2024 10:13 AM Consult Order CARDIOLOGY INTERVENTIONAL CLINIC OUTPT [facility] Lab Results: +/- 30 days of the encounter This section includes the Chemistry and Hematology Lab Results on record with [place] for the patient. Radiology Reports and Pathology Reports are provided separately, in subsequent sections. Lab Results This section contains the Chemistry/Hematology Results that were resulted 30 days before or 30 daysafter the date of the Encounter. Date/Time Source Result Type Result - Unit Interpretation Reference Range Comment Jan 31, 2024 10:[address] [facility] HEMOGLOBIN A1C Specimen Type: BLOOD Comment: [...] Jan 31, 2024 10:13 AM Reporting Lab: [facility] [phone] Performing Lab: [facility] [phone] HEMOGLOBIN A1C 5.4 4.0-6.0 Jan 31, 2024 10:[address] [facility] LIPID PANEL,FASTING Specimen Type: PLASMA No comment entered. Ordering Provider: JULIET SMART Report Released Date/Time: Jan 31, 2024 10:13 AM Reporting Lab: [facility] [phone] Performing Lab: [facility] [phone] CHOLESTEROL 125 mg/dL <199 TRIGLYCERIDE 95 mg/dL <149 .HDL 37 mg/dL L >40 LDL CALCULATION 69 mg/dL <99 VLDL CALCULATION 19 mg/dL <29 NON HDL CHOLESTEROL 88 mg/dL <129 Jan 31, 2024 07:[address] [facility] CBC Specimen Type: BLOOD No comment entered. Ordering Provider: BASHIR CARVAJAL Report Released Date/Time: Jan 30, 2024 01:03 PM Reporting Lab: [facility] [phone] Performing Lab: [facility] [address] WBC 7.3 4.0-11.0 RBC 3.83 L 4.60-6.20 HGB 11.4 g/dL L 13.5-17.9 HCT 35.1 L 41.0-54.0 MCV 91.6 fL 80.0-100.0 MCH 29.8 pg 27.0-33.0 MCHC 32.5 g/dL 32.0-37.5 PLT 193 150-400 MPV 10.7 fL 9.1-13.0 RDW 12.2 11.5-14.5 Jan 31, 2024 07:[address] [facility] BASIC METABOLIC PANEL+MG Specimen Type: PLASMA No comment entered. Ordering Provider: BASHIR CARVAJAL Report Released Date/Time: Jan 30, 2024 01:03 PM Reporting Lab: [facility] [phone] Performing Lab: [facility] [address] CREATININE 1.3 mg/dL H 0.7-1.2 UREA NITROGEN 24 mg/dL 8-26 GLUCOSE 91 mg/dL 70-100 SODIUM 138 mmol/L 136-145 POTASSIUM 4.1 mmol/L 3.5-5.1 CHLORIDE 108 mmol/L H 98-107 CO2 23 mmol/L 22-29 CALCIUM 8.8 mg/dL 8.4-10.2 MAGNESIUM 2.1 mg/dL 1.6-2.6 ANION GAP 7 mmol/L 5-15 .CREAT EGFR(CKD-EPI) 54 L >60 Jan 30, 2024 10:[address] [facility] POC ACT Specimen Type: BLOOD No comment entered. Ordering Provider: RODO CHRISTY Report Released Date/Time: Jan 30, 2024 10:43 AM Reporting Lab: [facility] [address] Performing Lab: [facility] [address] POC ACT 241 s H 84-139 Jan 30, 2024 10:[address] [facility] POC ACT Specimen Type: BLOOD No comment entered. Ordering Provider: RODO CHRISTY Report Released Date/Time: Jan 30, 2024 10:14 AM Reporting Lab: [facility] [address] Performing Lab: [facility] [address] POC ACT 289 s H 84-139 Jan 30, 2024 09:[address] [facility] POC ACT Specimen Type: BLOOD No comment entered. Ordering Provider: RODO CHRISTY Report Released Date/Time: Jan 30, 2024 10:14 AM Reporting Lab: [facility] [phone] Performing Lab: [facility] [address] POC ACT 294 s H 84-139 Jan 30, 2024 05:[address] [facility] HEPARIN APTT Specimen Type: PLASMA No comment entered. Ordering Provider: BASHIR CARVAJAL Report Released Date/Time: Jan 29, 2024 09:43 PM Reporting Lab: [facility] [phone] Performing Lab: [facility] [address] HEPARIN APTT 83.2 s 48.0-92.0 Jan 30, 2024 05:[address] [facility] BASIC METABOLIC PANEL+MG Specimen Type: PLASMA No comment entered. Ordering Provider: BASHIR CARVAJAL Report Released Date/Time: Jan 29, 2024 12:19 PM Reporting Lab: [facility] [phone] Performing Lab: [facility] [phone] CREATININE 1.4 mg/dL H 0.7-1.2 UREA NITROGEN 27 mg/dL H 8-26 GLUCOSE 95 mg/dL 70-100 SODIUM 139 mmol/L 136-145 POTASSIUM 4.2 mmol/L 3.5-5.1 CHLORIDE 109 mmol/L H 98-107 CO2 24 mmol/L 22-29 CALCIUM 9.0 mg/dL 8.4-10.2 MAGNESIUM 2.1 mg/dL 1.6-2.6 ANION GAP 6 mmol/L 5-15 .CREAT EGFR(CKD-EPI) 49 L >60 Jan 29, 2024 09:[address] [facility] HEPARIN APTT Specimen Type: PLASMA Comment: Critical Value Reported To: Tomasa Delcid PharmD 01/29/24 @[address] [place] [address]. Critical value report confirmed. Ordering Provider: MERY SAMUEL Report Released Date/Time: Jan 29, 2024 03:00 PM Reporting Lab: [facility] [phone] Performing Lab: [facility] [address] HEPARIN APTT 214.6 s HH 48.0-92.0 Jan 29, 2024 06:[address] [facility] BASIC METABOLIC PANEL+MG Specimen Type: PLASMA No comment entered. Ordering Provider: BASHIR CARVAJAL Report Released Date/Time: Jan 28, 2024 04:36 PM Reporting Lab: [facility] [address] Performing Lab: [facility] [address] CREATININE 1.6 mg/dL H 0.7-1.2 UREA NITROGEN 27 mg/dL H 8-26 GLUCOSE 92 mg/dL 70-100 SODIUM 140 mmol/L 136-145 POTASSIUM 4.2 mmol/L 3.5-5.1 CHLORIDE 110 mmol/L H 98-107 CO2 25 mmol/L 22-29 CALCIUM 8.8 mg/dL 8.4-10.2 MAGNESIUM 2.1 mg/dL 1.6-2.6 ANION GAP 5 mmol/L 5-15 .CREAT EGFR(CKD-EPI) 42 L >60 Jan 28, 2024 05:[address] [facility] EXTRA PURPLE TUBE Specimen Type: BLOOD No comment entered. Ordering Provider: RDOO CHRISTY Report Released Date/Time: Jan 28, 2024 05:54 AM Reporting Lab: [facility] [address] Performing Lab: [facility] [phone] EXTRA PURPLE TUBE RECEIVED Jan 28, 2024 05:[address] [facility] ALBUMIN Specimen Type: PLASMA No comment entered. Ordering Provider: BASHIR CARVAJAL Report Released Date/Time: Jan 27, 2024 04:49 PM Reporting Lab: [facility] [address] Performing Lab: [facility] [address] ALBUMIN 3.5 g/dL 3.5-5.2 Jan 28, 2024 05:[address] [facility] BASIC METABOLIC PANEL+MG Specimen Type: PLASMA No comment entered. Ordering Provider: BASHIR CARVAJAL Report Released Date/Time: Jan 27, 2024 05:44 PM Reporting Lab: [facility] [address] Performing Lab: [facility] [address] CREATININE 1.4 mg/dL H 0.7-1.2 UREA NITROGEN 28 mg/dL H 8-26 GLUCOSE 92 mg/dL 70-100 SODIUM 140 mmol/L 136-145 POTASSIUM 4.4 mmol/L 3.5-5.1 CHLORIDE 109 mmol/L H 98-107 CO2 23 mmol/L 22-29 CALCIUM 8.8 mg/dL 8.4-10.2 MAGNESIUM 2.1 mg/dL 1.6-2.6 ANION GAP 8 mmol/L 5-15 .CREAT EGFR(CKD-EPI) 49 L >60 Jan 28, 2024 05:[address] [facility] TROPONIN I, HS Specimen Type: PLASMA Comment: Critical value previously reported on patient. Ordering Provider: BRANDON MEJIA Report Released Date/Time: Jan 27, 2024 09:15 PM Reporting Lab: [facility] [phone] Performing Lab: [facility] [phone] TROPONIN I, HS 128 HH <35 Jan 28, 2024 12:[address] [facility] COVID-19 DIAGNOSTIC PANEL (CEPHEID) Specimen Type: NASOPHARYNGEAL Comment: Cepheid GeneXpert (618) Ordering Provider: LUCAS HAWTHORNE Report Released Date/Time: Jan 27, 2024 04:28 PM Reporting Lab: [facility] [phone] Performing Lab: [facility] [phone] COVID-19 (CEPHEID) Not Detected Not Detected Jan 28, 2024 12:[address] [facility] HEPARIN APTT Specimen Type: PLASMA Comment: Critical Value Reported To: Deena Oliveros PharmD 01/28/24 @0110 HV. Critical value report confirmed. Ordering Provider: NATALIE ORDOÑEZ Report Released Date/Time: Jan 27, 2024 07:18 PM Reporting Lab: [facility] [address] Performing Lab: [facility] [address] HEPARIN APTT 133.9 s HH 48.0-92.0 Jan 28, 2024 12:[address] [facility] TROPONIN I, HS Specimen Type: PLASMA Comment: Critical value previously reported on patient. Ordering Provider: BRANDON MEJIA Report Released Date/Time: Jan 27, 2024 09:15 PM Reporting Lab: [facility] [address] Performing Lab: [facility] [phone] TROPONIN I, HS 158 HH <35 Jan 27, 2024 09:[address] [facility] TROPONIN I, HS Specimen Type: PLASMA Comment: Critical value previously reported on patient. Ordering Provider: BASHIR CARVAJAL Report Released Date/Time: Jan 27, 2024 08:38 PM Reporting Lab: [facility] [address] Performing Lab: [facility] [phone] TROPONIN I, HS 146 HH <35 Jan 27, 2024 06:[address] [facility] TROPONIN I, HS Specimen Type: PLASMA Comment: Critical Value Reported To: Brandon Mejia MD 01/27/24 @1950 [place]. Critical value report confirmed. Ordering Provider: BASHIR CARVAJAL Report Released Date/Time: Jan 27, 2024 04:54 PM Reporting Lab: [facility] [address] Performing Lab: [facility] [address] TROPONIN I, HS 136 HH <35 Jan 27, 2024 06:[address] [facility] CBC Specimen Type: BLOOD No comment entered. Ordering Provider: BASHIR CARVAJAL Report Released Date/Time: Jan 27, 2024 04:54 PM Reporting Lab: [facility] [phone] Performing Lab: [facility] [address] WBC 6.0 4.0-11.0 RBC 3.91 L 4.60-6.20 HGB 12.1 g/dL L 13.5-17.9 HCT 36.5 L 41.0-54.0 MCV 93.4 fL 80.0-100.0 MCH 30.9 pg 27.0-33.0 MCHC 33.2 g/dL 32.0-37.5 PLT 177 150-400 MPV 10.7 fL 9.1-13.0 RDW 12.4 11.5-14.5 Jan 27, 2024 06:[address] [facility] BASIC METABOLIC PANEL+MG Specimen Type: PLASMA No comment entered. Ordering Provider: BASHIR CARVAJAL Report Released Date/Time: Jan 27, 2024 04:54 PM Reporting Lab: [facility] [address] Performing Lab: [facility] [address] CREATININE 1.3 mg/dL H 0.7-1.2 UREA NITROGEN [...] and tobacco- related health factors from the [place] facility where the Encounter took place. Current Smoking Status This section includes the most current smoking, or tobacco-related health factor, from the [place] facility where the Encounter took place. Date/Time Current Smoking Status Comment Facil ity Dec 14, 2023 11:30 AM VA-TOBACCO FORMER USER [facility] Tobacco Use History This section includes a history of the smoking, or tobacco-related health factors, that were collected on or before the date of the Encounter. The data comes from the [place] facility where the Encounter took place. Date/Time Smoking Status/Tobacco Use Comment F acility Dec 14, 2023 11:30 AM VA-TOBACCO QUIT [address] [facility] Oct 13, 2022 01:30 PM VA-TOBACCO FORMER USER [facility] Oct 13, 2022 01:30 PM VA-TOBACCO QUIT [address] [facility] Jul 27, 2021 10:00 AM VA-TOBACCO FORMER USER [facility] Jul 27, 2021 10:00 AM VA-TOBACCO QUIT [address] [facility] Jan 02, 2020 09:00 AM VA-TOBACCO FORMER USER [facility] Jan 02, 2020 09:00 AM VA-TOBACCO QUIT [address] [facility] Jul 21, 2018 03:00 PM VA-TOBACCO FORMER USER [facility] Jul 21, 2018 03:00 PM VA-TOBACCO QUIT [address] [facility] Dec 24, 2016 08:01 AM FORMER TOBACCO USER 7Y OR GREATE R [facility] Dec 23, 2015 08:23 AM FORMER TOBACCO USE >1Y <7Y [facility] Dec 26, 2014 10:32 AM FORMER TOBACCO USER 7Y OR GREATE R [facility] August 13, 2013 08:22 AM LIFETIME NON-TOBACCO USER [facility] August 30, 2006 08:38 AM FORMER TOBACCO USER 7Y OR GREATE R [facility] Advance Directives: All historical and current Section Date Range: From patient's date of to the date document was created. This section includes ALL of a patient's completed or amended [place] Advance and Rescinded Directives. The entries below indicate that a directive exists for the patient, but an actual copy is not included with this document. The data comes from all [facility]. Date Advance Directives Provider Source August [...] the Encounter. The data comes from all [place] treatment facilities. Date/Time Pathology Report Provider Source Jan 06, 2024 11:16 AM [facility] SURGICAL PATHOL OGY REPORT: LOCAL TITLE: LR SURGICAL PATHOLOGY REPORT STANDARD TITLE: PATHOLOGY REPORT DATE OF NOTE: JAN 06, 2024@11:16:39 ENTRY DATE: JAN 06, 2024@11:16:39 AUTHOR: JOSE REESE COSIGNER: URGENCY: STATUS: COMPLETED $APHDR Reporting Lab: [facility] [CLIA# [id number]] [place] [address] - - - - - - - [...] - PATHOLOGY REPORT Accession No. [id number] - - - - - - - [...] - PATHOLOGY REPORT Accession No. [id number] - - - - - - - [...] CE. (D)[facility] [place] MICROSCOPIC DESCRIPTION: Microscopic examination performed. CI. 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 STAFF PATHOLOGIST Signed Jan 06, 2024@11:16 Performing Laboratory: Surgical Pathology Report Performed By: [facility] [CLIA# [id number]] [place] [address] $FTR - - - - - - [...] - - MADYSONGERI NUNEZ STANDARD FORM 515 ID:[id number] SEX:M :1935 AGE: 88 LOC:[id number] PCP: Sariah Gomes MD /shelly/ JOSE REESE M.D. STAFF PATHOLOGIST Signed: 01/06/2024 11:[address] [facility] Encounter Notes: All associated encounter notes This section contains the clinical notes associated to the Encounter. Date/Time Encounter Note(s) Provider Source Jan 31, 2024 11:17 AM PHARMACY EDUCATION NOTE: LOCAL TITLE: EDUCATION PHARMACY MED INSTRUCTION/RECONCILIATION STANDARD TITLE: PHARMACY EDUCATION NOTE DATE OF NOTE: JAN 31, 2024@11:17 ENTRY DATE: JAN 31, 2024@11:17:19 AUTHOR: BC HIDALGO EXP COSIGNER: URGENCY: STATUS: COMPLETED MEDICATION DISCHARGE EDUCATION LEARNING NEEDS/OBJECTIVES Participant(s) indicates readiness to learn and has been instructed on indications, side effects, directions for use and given a list of medications. Participant(s) will receive medication information sheets for medications filled. Education included discussion of the following: New meds: - Atorvastatin for cholesterol - Clopidogrel for 1 year after stent, take daily through 01/28/25 - Isosorbide mononitrate daily for chest pain prevention - Metoprolol succinate daily for chest pain Reminders: 1. Please pick new medications from the pharmacy on the first floor before you leave today 2. Continue taking your other medications as prescribed 3. Continue aspirin 81mg daily indefinitely, pt wanted filled today Documented updates to Non-VA medications. Tobacco Cessation Discharge Plan Not Applicable Active Outpatient Medications (including Supplies): Outpatient Medications Status 1) ASPIRIN 81MG EC TAB TAKE ONE TABLET BY MOUTH EVERY ACTIVE DAY FOR HEART DISEASE 2) ATORVASTATIN CALCIUM 40MG TAB TAKE ONE TABLET BY ACTIVE MOUTH EVERY DAY FOR CHOLESTEROL 3) CALCIPOTRIENE 0.005% TOP CREAM APPLY THIN LAYER ACTIVE TOPICALLY TWICE A DAY FOR ROUGH, SCALY SKIN PATCHES MIX WITH EQUAL AMOUNT OF FLUOROURACIL CREAM AND APPLY TO DESIGNATED AREA(S). USE FOR 4-7 DAYS DIRECTED. WAIT UNTIL FEBRUARY WHEN SPOTS ARE HEALED FROM LIQUID NITROGEN TREATMENT IN CLINIC. KEEP OUT OF REACH OF KIDS/PETS. DO NOT APPLY TO NOSE, EYES, MOUTH. 4) CLOPIDOGREL BISULFATE 75MG TAB TAKE ONE TABLET BY ACTIVE MOUTH EVERY DAY FOR 1 YEAR AFTER STENT THROUGH 01/28/25 5) FLUOROURACIL 5% CREAM APPLY PEA SIZED AMOUNTS ACTIVE SMOOTHED TO A THIN LAYER TOPICALLY TWICE A DAY FOR ROUGH, SCALY SKIN PATCHES MIX WITH EQUAL AMOUNT OF CALCIPOTRIENE CREAM AND APPLY TO DESIGNATED AREA(S) ON FACE. USE FOR 4-7 DAYS DIRECTED. WAIT UNTIL FEBRUARY WHEN SPOTS ARE HEALED FROM LIQUID NITROGEN TREATMENT IN CLINIC. 6) HCTZ 25/LISINOPRIL 20MG TAB TAKE 1 TABLET BY MOUTH ACTIVE (S) EVERY MORNING FOR BLOOD PRESSURE. 7) ISOSORBIDE MONONITRATE 30MG SA TAB TAKE ONE TABLET BY ACTIVE MOUTH EVERY DAY FOR CHEST PAIN 8) METOPROLOL SUCCINATE 25MG SA TAB TAKE ONE TABLET BY ACTIVE MOUTH EVERY DAY FOR CHEST PAIN 9) NITROGLYCERIN 0.4MG SL TAB DISSOLVE ONE TABLET UNDER ACTIVE THE TONGUE EVERY 5 MINUTES FOR UP TO 3 DOSES IF NEEDED FOR CHEST PAIN 10) POLYETHYLENE GLYCOL 3350 ORAL PWDR TAKE 17 GRAMS BY ACTIVE MOUTH EVERY DAY NEEDED FOR CONSTIPATION 11) SILVER SULFADIAZINE 1% CREAM APPLY TO AFFECTED AREA ACTIVE TOPICALLY TWICE A DAY NEEDED FOR IRRITATED SKIN Non-VA Medications Status 1) Non-VA MULTI/MINERAL/ANTIOXIDANT TAB MOUTH ACTIVE 12 Total Medications PARTICIPANTS: Patient TEACHING STRATEGY: Face to Face, Medication information sheets and list of medications READINESS TO LEARN No barriers identified PATIENT/FAMILY RESPONSE (OUTCOME): Verbalizes critical information about the topic FOLLOW-UP RECOMMENDED: As directed by discharging provider /shelly/ BC HIDALGO PHARMACIST Signed: 01/31/2024 11:18 Receipt Acknowledged By: 01/31/2024 13:22 /shelly/ JULIET SMART RESIDENT BC HIDALGO [facility]
--- OUTSIDE RECORDS SUMMARY | 2024-02-10 23:37 | XMS_ITS ---
[place] DAILY HOSPITALIZATION DATA [facility] HCS Encounter Summary Created on: February 10, 2024 GERI COUGHLIN : 1935 Sex: Male Author Name [facility] [facility] [place] [facility] [place] Address [address] [place] [address] Care Team Providers Care Combination Man Name Role Phone SARIAH GOMES Primary Care [...] PART A Sep 09, 2002 PART A [id number] JOAQUIN COUGHLIN S PATIENT MEDICARE (WNR) MEDICARE (M) PART B Sep 09, 2002 PART B [id number] JOAQUIN COUGHLIN S PATIENT MEDICARE (WNR) MEDICARE (M) PART A Sep 09, 2002 PART A [id number] JOAQUIN COUGHLIN S PATIENT MEDICARE (WNR) MEDICARE (M) PART B Sep 09, 2002 PART B [id number] JOAQUIN COUGHLIN S PATIENT Selected Encounter This section includes the information on record at NH for the Encounter. Date/Time Encounter Type Encounter Description Reason Pro vider Source Jan 30, 2024 06:50 PM Inpatient Visit DAILY HOSPITALIZATION DATA IHE Encounter Template Text not used by NH Plan of Treatment: Future Appointments (+ 6 months) and Future Tests (+/- 45 days) The Plan of Treatment section includes future care activities for the patient from all [facility]. This section includes future appointments and future orders which are active, pending or scheduled. Future Appointments This section includes appointments that were scheduled to occur 6 months from the date of the Encounter, up to a maximum of 20 appointments. The data comes from all [facility]. Appointment Date/Time Appointment Type Appointme nt Facility Name Feb 21, 2024 10:00 AM AMBULATORY - MEDICINE [facility] Feb 24, 2024 12:15 PM AMBULATORY MEDICINE [facility] Feb 24, 2024 01:00 PM AMBULATORY MEDICINE [facility] Mar 02, 2024 01:00 PM AMBULATORY [...] of theEncounter. The data comes from all [facility]. Test Date/Time Test Type Test Details Facility Name Jan 18, 2024 04:23 PM Consult Order COMMUNITY CARE-ECHOCARDIOGRAPHY [facility] Jan 19, 2024 12:10 PM Consult Order COMMUNITY CARE-DERMATOLOGY [facility] Jan 28, 2024 02:00 AM Laboratory - Chemistry Order TROPONIN I, HS PLASMA STAT WC [facility] Jan 31, 2024 09:30 AM Consult Order CARDIAC REHAB OUTPT Cons Bedside [facility] Jan 31, 2024 10:13 AM Consult Order CARDIOLOGY INTERVENTIONAL CLINIC OUTPT [facility] Lab Results: +/- 30 days of the encounter This section includes the Chemistry and Hematology Lab Results on record with NH for the patient. Radiology Reports and Pathology [...] Jan 31, 2024 10:13 AM Reporting Lab: [facility] [address] Performing Lab: [facility] [address] HEMOGLOBIN A1C 5.4 4.0-6.0 Jan 31, 2024 10:50 AM [facility] LIPID PANEL,FASTING Specimen Type: PLASMA No comment entered. Ordering Provider: JULIET SMART Report Released Date/Time: Jan 31, 2024 10:13 AM Reporting Lab: [facility] [address] Performing Lab: [facility] [address] CHOLESTEROL 125 mg/dL <199 TRIGLYCERIDE 95 mg/dL <149 .HDL 37 mg/dL L >40 LDL CALCULATION 69 mg/dL <99 VLDL CALCULATION 19 mg/dL <29 NON HDL CHOLESTEROL 88 mg/dL <129 Jan 31, 2024 07:29 AM [facility] CBC Specimen Type: BLOOD No comment entered. Ordering Provider: BASHIR CARVAJAL Report Released Date/Time: Jan 30, 2024 01:03 PM Reporting Lab: [facility] [address] Performing Lab: [facility] [address] WBC 7.3 4.0-11.0 RBC 3.83 L 4.60-6.20 [...] Jan 30, 2024 01:03 PM Reporting Lab: [facility] [address] Performing Lab: [facility] [address] CREATININE 1.3 mg/dL H 0.7-1.2 UREA NITROGEN [...] Jan 30, 2024 10:43 AM Reporting Lab: [facility] [address] Performing Lab: [facility] [address] POC ACT 241 s H 84-139 Jan 30, 2024 10:08 AM [facility] POC ACT Specimen Type: BLOOD No comment entered. Ordering Provider: RODO CHRISTY Report Released Date/Time: Jan 30, 2024 10:14 AM Reporting Lab: [facility] [address] Performing Lab: [facility] [address] POC ACT 289 s H 84-139 Jan 30, 2024 09:34 AM [facility] POC ACT Specimen Type: BLOOD No comment entered. Ordering Provider: RODO CHRISTY Report Released Date/Time: Jan 30, 2024 10:14 AM Reporting Lab: [facility] [address] Performing Lab: [facility] [address] POC ACT 294 s H 84-139 Jan 30, 2024 05:37 AM [facility] HEPARIN APTT Specimen Type: PLASMA No comment entered. Ordering Provider: BASHIR CARVAJAL Report Released Date/Time: Jan 29, 2024 09:43 PM Reporting Lab: [facility] [address] Performing Lab: [facility] [address] HEPARIN APTT 83.2 s 48.0-92.0 Jan 30, 2024 05:37 AM [facility] BASIC METABOLIC PANEL+MG Specimen Type: PLASMA No comment entered. Ordering Provider: BASHIR CARVAJAL Report Released Date/Time: Jan 29, 2024 12:19 PM Reporting Lab: [facility] [address] Performing Lab: [facility] [address] CREATININE 1.4 mg/dL H 0.7-1.2 UREA NITROGEN [...] Value Reported To: Tomasa Delcid PharmD 01/29/24 @[address] [place] [address]. Critical value report confirmed. Ordering Provider: MERY SAMUEL Report Released Date/Time: Jan 29, 2024 03:00 PM Reporting Lab: [facility] [address] Performing Lab: [facility] [address] HEPARIN APTT 214.6 s HH 48.0-92.0 Jan 29, 2024 06:24 AM [facility] BASIC METABOLIC PANEL+MG Specimen Type: PLASMA No comment entered. Ordering Provider: BASHIR CARVAJAL Report Released Date/Time: Jan 28, 2024 04:36 PM Reporting Lab: [facility] [address] Performing Lab: [facility] [address] CREATININE 1.6 mg/dL H 0.7-1.2 UREA NITROGEN [...] Jan 28, 2024 05:54 AM Reporting Lab: [facility] [address] Performing Lab: [facility] [address] EXTRA PURPLE TUBE RECEIVED Jan 28, 2024 05:53 AM [facility] ALBUMIN Specimen Type: PLASMA No comment entered. Ordering Provider: BASHIR CARVAJAL Report Released Date/Time: Jan 27, 2024 04:49 PM Reporting Lab: [facility] [address] Performing Lab: [facility] [address] ALBUMIN 3.5 g/dL 3.5-5.2 Jan 28, 2024 05:53 AM [facility] BASIC METABOLIC PANEL+MG Specimen Type: PLASMA No comment entered. Ordering Provider: BASHIR CARVAJAL Report Released Date/Time: Jan 27, 2024 05:44 PM Reporting Lab: [facility] [address] Performing Lab: [facility] [address] CREATININE 1.4 mg/dL H 0.7-1.2 UREA NITROGEN [...] Jan 27, 2024 09:15 PM Reporting Lab: [facility] [address] Performing Lab: [facility] [address] TROPONIN I, HS 128 HH <35 Jan 28, 2024 12:35 AM [facility] COVID-19 DIAGNOSTIC PANEL (CEPHEID) Specimen Type: NASOPHARYNGEAL Comment: Cepheid GeneXpert (618) Ordering Provider: LUCAS HAWTHORNE Report Released Date/Time: Jan 27, 2024 04:28 PM Reporting Lab: [facility] [address] Performing Lab: [facility] [address] COVID-19 (CEPHEID) Not Detected Not Detected Jan 28, 2024 12:35 AM [facility] HEPARIN APTT Specimen Type: PLASMA Comment: Critical Value Reported To: Deena Oliveros PharmD 01/28/24 @0110 HV. Critical value report confirmed. Ordering Provider: NATALIE ORDOÑEZ Report Released Date/Time: Jan 27, 2024 07:18 PM Reporting Lab: [facility] [address] Performing Lab: [facility] [address] HEPARIN APTT 133.9 s HH 48.0-92.0 Jan 28, 2024 12:35 AM [facility] TROPONIN I, HS Specimen Type: PLASMA Comment: Critical value previously reported on patient. Ordering Provider: BRANDON MEJIA Report Released Date/Time: Jan 27, 2024 09:15 PM Reporting Lab: [facility] [address] Performing Lab: [facility] [address] TROPONIN I, HS 158 HH <35 Jan 27, 2024 09:22 PM [facility] TROPONIN I, HS Specimen Type: PLASMA Comment: Critical value previously reported on patient. Ordering Provider: BASHIR CARVAJAL Report Released Date/Time: Jan 27, 2024 08:38 PM Reporting Lab: [facility] [address] Performing Lab: [facility] [address] TROPONIN I, HS 146 HH <35 Jan 27, 2024 06:52 PM [facility] TROPONIN I, HS Specimen Type: PLASMA Comment: Critical Value Reported To: Brandon Mejia MD 01/27/24 @1950 KLM. Critical value report confirmed. Ordering Provider: BASHIR CARVAJAL Report Released Date/Time: Jan 27, 2024 04:54 PM Reporting Lab: [facility] [address] Performing Lab: [facility] [address] TROPONIN I, HS 136 HH <35 Jan 27, 2024 06:52 PM [facility] CBC Specimen Type: BLOOD No comment entered. Ordering Provider: BASHIR CARVAJAL Report Released Date/Time: Jan 27, 2024 04:54 PM Reporting Lab: [facility] [address] Performing Lab: [facility] [address] WBC 6.0 4.0-11.0 RBC 3.91 L 4.60-6.20 HGB 12.1 g/dL L 13.5-17.9 HCT 36.5 L 41.0-54.0 MCV 93.4 fL 80.0-100.0 MCH 30.9 pg 27.0-33.0 MCHC 33.2 g/dL 32.0-37.5 PLT 177 150-400 MPV 10.7 fL 9.1-13.0 RDW 12.4 11.5-14.5 Jan 27, 2024 06:52 PM [facility] BASIC METABOLIC PANEL+MG Specimen Type: PLASMA No comment entered. Ordering Provider: BASHIR CARVAJAL Report Released Date/Time: Jan 27, 2024 04:54 PM Reporting Lab: [facility] [address] Performing Lab: [facility] [address] CREATININE 1.3 mg/dL H 0.7-1.2 UREA NITROGEN [...] 2024 08:00 AM 148.37 23 [place] [facility] Social History: Smoking Status (Most current) and Tobacco Use (All prior to encounter date) This section includes the most current, and the historical, smoking and tobacco- related health factors from the NH facility where the Encounter took place. Current Smoking Status This section includes the most current smoking, or tobacco-related health factor, from the NH facility where the Encounter took place. Date/Time Current Smoking Status Comment Facil ity Dec 14, 2023 11:30 AM VA-TOBACCO FORMER USER [facility] Tobacco Use History This section includes a history of the smoking, or tobacco-related health factors, that were collected on or before the date of the Encounter. The data comes from the NH facility where the Encounter took place. Date/Time [...] ALL of a patient's completed or amended [place] Advance and Rescinded Directives. The entries below [...] the Encounter. The data comes from all [place] treatment facilities. Date/Time Pathology Report Provider Source Jan 06, 2024 11:16 AM [facility] REPORT: LOCAL TITLE: LR SURGICAL PATHOLOGY REPORT STANDARD TITLE: PATHOLOGY REPORT DATE OF NOTE: JAN 06, 2024@11:16:39 ENTRY DATE: JAN 06, 2024@11:16:39 AUTHOR: JOSE REESE COSIGNER: URGENCY: STATUS: COMPLETED $APHDR Reporting Lab: [facility] [CLIA# [id number]] [place] [address] - - - - - - - [...] - PATHOLOGY REPORT Accession No. [id number] - - - - - - - [...] - PATHOLOGY REPORT Accession No. [id number] - - - - - - - [...] 0.1 cm. The specimen is inked. CE. (D)[facility] MICROSCOPIC DESCRIPTION: Microscopic examination performed. CI. DIAGNOSES: [...] Report Performed By: [facility] [CLIA# [id number]] [place] [address] $FTR - - - - - - [...] - - MADYSON,GERI NUNEZ STANDARD FORM 515 ID:[id number] SEX:M :1935 AGE: 88 LOC:[id number] PCP: Sariah Gomes MD /shelly/ JOSE REESE M.D. STAFF PATHOLOGIST Signed: 01/06/2024 11:16 JOSE REESE [facility]
--- OUTSIDE RECORDS SUMMARY | 2024-02-10 23:37 | XMS_ITS ---
[place] DAILY HOSPITALIZATION DATA [facility] HCS Encounter Summary Created on: February 10, 2024 GERI COUGHLIN : 1935 Sex: Male Author Name [facility] [place] Address [address] [place] [address] Care Team Providers Care Sand Slinger Name Role Phone SARIAH GOMES Primary Care [...] PART A Sep 09, 2002 PART A [id number] JOAQUIN COUGHLIN S PATIENT MEDICARE (WNR) MEDICARE (M) PART B Sep 09, 2002 PART B [id number] JOAQUIN COUGHLIN S PATIENT MEDICARE (WNR) MEDICARE (M) PART A Sep 09, 2002 PART A [id number] JOAQUIN COUGHLIN S PATIENT MEDICARE (WNR) MEDICARE (M) PART B Sep 09, 2002 PART B [id number] JOAQUIN COUGHLIN S PATIENT Selected Encounter This section includes the information on record at [place] for the Encounter. Date/Time Encounter Type Encounter Description Reason Pro vider Source Jan 31, 2024 02:55 AM Inpatient Visit DAILY HOSPITALIZATION DATA I[facility] Encounter Template Text not used by [place] Plan of Treatment: Future Appointments (+ 6 months) and Future Tests (+/- 45 days) The Plan of Treatment section includes future care activities for the patient [facility] This section includes future appointments and future orders which are active, pending or scheduled. Future Appointments This section includes appointments that were scheduled to occur 6 months from the date of the Encounter, up to a maximum of 20 appointments. The data comes from all [facility]. Appointment Date/Time Appointment Type Appointme nt Facility Name Feb 21, 2024 10:00 AM AMBULATORY - MEDICINE [facility] Feb 24, 2024 12:15 PM AMBULATORY - MEDICINE [facility] Feb 24, 2024 01:00 PM AMBULATORY MEDICINE [facility] Mar 02, 2024 01:00 PM AMBULATORY - REHAB MEDICIN [facility] Jul 31, 2024 09:20 AM AMBULATORY - SURGERY [facility] Active, Pending, and Scheduled Orders This section includes a listing of several types of active, pending, and scheduled orders, including clinic medications orders, diagnostic test orders, procedure orders and consult orders; where the start date of the order is 45 days before the date of the Encounter or 45 days after the date of theEncounter. The data comes from all [facility]. Test Date/Time Test Type Test Details Facility Name Jan 18, 2024 04:23 PM Consult Order COMMUNITY CARE-ECHOCARDIOGRAPHY [facility] [employer] [facility] Jan 19, 2024 12:10 PM Consult Order COMMUNITY CARE-DERMATOLOGY [facility] Jan 28, 2024 02:00 AM Laboratory - Chemistry Order TROPONIN I, HS PLASMA STAT WC [facility] Jan 31, 2024 09:30 AM Consult Order CARDIAC REHAB OUTPT Cons Bedside [facility] Jan 31, 2024 10:13 AM Consult Order CARDIOLOGY INTERVENTIONAL CLINIC OUTPT Cons [facility] [employer] [facility] Lab Results: +/- 30 days of the encounter This section includes the Chemistry and Hematology Lab Results on record with [place] for the patient. Radiology Reports and Pathology [...] Jan 31, 2024 10:13 AM Reporting Lab: [facility] [address] Performing Lab: [facility] [address] HEMOGLOBIN A1C 5.4 4.0-6.0 Jan 31, 2024 10:50 AM [facility] LIPID PANEL,FASTING Specimen Type: PLASMA No comment entered. Ordering Provider: JULIET SMART Report Released Date/Time: Jan 31, 2024 10:13 AM Reporting Lab: [facility] [address] Performing Lab: [facility] [address] CHOLESTEROL 125 mg/dL <199 TRIGLYCERIDE 95 mg/dL <149 .HDL 37 mg/dL L >40 LDL CALCULATION 69 mg/dL <99 VLDL CALCULATION 19 mg/dL <29 NON HDL CHOLESTEROL 88 mg/dL <129 Jan 31, 2024 07:29 AM [facility] CBC Specimen Type: BLOOD No comment entered. Ordering Provider: BASHIR CARVAJAL Report Released Date/Time: Jan 30, 2024 01:03 PM Reporting Lab: [facility] [address] Performing Lab: [facility] [address] WBC 7.3 4.0-11.0 RBC 3.83 L 4.60-6.20 [...] Jan 30, 2024 01:03 PM Reporting Lab: [facility] [address] Performing Lab: [facility] [address] CREATININE 1.3 mg/dL H 0.7-1.2 UREA NITROGEN [...] Jan 30, 2024 10:43 AM Reporting Lab: [facility] [address] Performing Lab: [facility] [address] POC ACT 241 s H 84-139 Jan 30, 2024 10:08 AM [facility] POC ACT Specimen Type: BLOOD No comment entered. Ordering Provider: RODO CHRISTY Report Released Date/Time: Jan 30, 2024 10:14 AM Reporting Lab: [facility] [address] Performing Lab: [facility] [address] POC ACT 289 s H 84-139 Jan 30, 2024 09:34 AM [facility] POC ACT Specimen Type: BLOOD No comment entered. Ordering Provider: RODO CHRISTY Report Released Date/Time: Jan 30, 2024 10:14 AM Reporting Lab: [facility] [address] Performing Lab: [facility] [address] POC ACT 294 s H 84-139 Jan 30, 2024 05:37 AM [facility] HEPARIN APTT Specimen Type: PLASMA No comment entered. Ordering Provider: BASHIR CARVAJAL Report Released Date/Time: Jan 29, 2024 09:43 PM Reporting Lab: [facility] [address] Performing Lab: [facility] [address] HEPARIN APTT 83.2 s 48.0-92.0 Jan 30, 2024 05:37 AM [facility] BASIC METABOLIC PANEL+MG Specimen Type: PLASMA No comment entered. Ordering Provider: BASHIR CARVAJAL Report Released Date/Time: Jan 29, 2024 12:19 PM Reporting Lab: [facility] [address] Performing Lab: [facility] [address] CREATININE 1.4 mg/dL H 0.7-1.2 UREA NITROGEN [...] Value Reported To: Tomasa Delcid PharmD 01/29/24 @[address] [place] [address]. Critical value report confirmed. Ordering Provider: MERY SAMUEL Report Released Date/Time: Jan 29, 2024 03:00 PM Reporting Lab: [facility] [address] Performing Lab: [facility] [address] HEPARIN APTT 214.6 s HH 48.0-92.0 Jan 29, 2024 06:24 AM [facility] BASIC METABOLIC PANEL+MG Specimen Type: PLASMA No comment entered. Ordering Provider: BASHIR CARVAJAL Report Released Date/Time: Jan 28, 2024 04:36 PM Reporting Lab: [facility] [address] Performing Lab: [facility] [address] CREATININE 1.6 mg/dL H 0.7-1.2 UREA NITROGEN [...] Jan 28, 2024 05:54 AM Reporting Lab: [facility] [address] Performing Lab: [facility] [address] EXTRA PURPLE TUBE RECEIVED Jan 28, 2024 05:53 AM [facility] ALBUMIN Specimen Type: PLASMA No comment entered. Ordering Provider: BASHIR CARVAJAL Report Released Date/Time: Jan 27, 2024 04:49 PM Reporting Lab: [facility] [address] Performing Lab: [facility] [address] ALBUMIN 3.5 g/dL 3.5-5.2 Jan 28, 2024 05:53 AM [facility] BASIC METABOLIC PANEL+MG Specimen Type: PLASMA No comment entered. Ordering Provider: BASHIR CARVAJAL Report Released Date/Time: Jan 27, 2024 05:44 PM Reporting Lab: [facility] [address] Performing Lab: [facility] [address] CREATININE 1.4 mg/dL H 0.7-1.2 UREA NITROGEN [...] Jan 27, 2024 09:15 PM Reporting Lab: [facility] [address] Performing Lab: [facility] [address] TROPONIN I, HS 128 HH <35 Jan 28, 2024 12:35 AM [facility] COVID-19 DIAGNOSTIC PANEL (CEPHEID) Specimen Type: NASOPHARYNGEAL Comment: Cepheid GeneXpert (618) Ordering Provider: LUCAS HAWTHORNE Report Released Date/Time: Jan 27, 2024 04:28 PM Reporting Lab: [facility] [address] Performing Lab: [facility] [address] COVID-19 (CEPHEID) Not Detected Not Detected Jan 28, 2024 12:35 AM [facility] HEPARIN APTT Specimen Type: PLASMA Comment: Critical Value Reported To: Deena Oliveros PharmD 01/28/24 @0110 HV. Critical value report confirmed. Ordering Provider: NATALIE ORDOÑEZ Report Released Date/Time: Jan 27, 2024 07:18 PM Reporting Lab: [facility] [address] Performing Lab: [facility] [address] HEPARIN APTT 133.9 s HH 48.0-92.0 Jan 28, 2024 12:35 AM [facility] TROPONIN I, HS Specimen Type: PLASMA Comment: Critical value previously reported on patient. Ordering Provider: BRANDON MEJIA Report Released Date/Time: Jan 27, 2024 09:15 PM Reporting Lab: [facility] [address] Performing Lab: [facility] [address] TROPONIN I, HS 158 HH <35 Jan 27, 2024 09:22 PM [facility] TROPONIN I, HS Specimen Type: PLASMA Comment: Critical value previously reported on patient. Ordering Provider: BASHIR CARVAJAL Report Released Date/Time: Jan 27, 2024 08:38 PM Reporting Lab: [facility] [address] Performing Lab: [facility] [address] TROPONIN I, HS 146 HH <35 Jan 27, 2024 06:52 PM [facility] TROPONIN I, HS Specimen Type: PLASMA Comment: Critical Value Reported To: Brandon Mejia MD 01/27/24 @1950 KL. Critical value report confirmed. Ordering Provider: BASHIR CARVAJAL Report Released Date/Time: Jan 27, 2024 04:54 PM Reporting Lab: [facility] [address] Performing Lab: [facility] [address] TROPONIN I, HS 136 HH <35 Jan 27, 2024 06:52 PM [facility] CBC Specimen Type: BLOOD No comment entered. Ordering Provider: BASHIR CARVAJAL Report Released Date/Time: Jan 27, 2024 04:54 PM Reporting Lab: [facility] [address] Performing Lab: [facility] [address] WBC 6.0 4.0-11.0 RBC 3.91 L 4.60-6.20 HGB 12.1 g/dL L 13.5-17.9 HCT 36.5 L 41.0-54.0 MCV 93.4 fL 80.0-100.0 MCH 30.9 pg 27.0-33.0 MCHC 33.2 g/dL 32.0-37.5 PLT 177 150-400 MPV 10.7 fL 9.1-13.0 RDW 12.4 11.5-14.5 Jan 27, 2024 06:52 PM [facility] BASIC METABOLIC PANEL+MG Specimen Type: PLASMA No comment entered. Ordering Provider: BASHIR ACRVAJAL Report Released Date/Time: Jan 27, 2024 04:54 PM Reporting Lab: [facility] [address] Performing Lab: [facility] [address] CREATININE 1.3 mg/dL H 0.7-1.2 UREA NITROGEN [...] ALL of a patient's completed or amended [place] Advance and Rescinded Directives. The entries below [...] COMPLETED $APHDR Reporting Lab: [facility] [CLIA# [id number]] [place] [address] - - - - - - - [...] - PATHOLOGY REPORT Accession No. [id number] - - - - - - - [...] - PATHOLOGY REPORT Accession No. [id number] - - - - - - - [...] 0.1 cm. The specimen is inked. CE. (D)[facility] MICROSCOPIC DESCRIPTION: Microscopic examination performed. CI. DIAGNOSES: [...] Pathology Report Performed By: [facility] [CLIA# [id number]] [place] [address] $FTR - - - - - - [...] - - GERI COUGHLIN STANDARD FORM 515 ID:[id number] SEX:M :1935 AGE: 88 LOC:[id number] PCP: Sariah Gomes MD /shelly/ JOSE REESE M.D. STAFF PATHOLOGIST Signed: 01/06/2024 11:16 JOSE REESE [facility]
--- OUTSIDE RECORDS SUMMARY | 2024-02-10 23:37 | XMS_ITS ---
[place] DAILY HOSPITALIZATION DATA [facility]CS Encounter Summary Created on: February 10, 2024 GERI COUGHLIN : 1935 Sex: Male Author Name [facility] Address [address] [place] [address] Care Team Providers Care Refractory Worker Name Role Phone SARIAH GOMES Primary [...] PART B Sep 09, 2002 PART B [id number] JOAQUIN COUGHLIN S PATIENT MEDICARE (WNR) MEDICARE (M) PART A Sep 09, 2002 PART A [id number] JOAQUIN COUGHLIN S PATIENT MEDICARE (WNR) MEDICARE (M) PART A Sep 09, 2002 PART A [id number] NULLJOAQUIN S PATIENT MEDICARE (WNR) MEDICARE (M) PART B Sep 09, 2002 PART B [id number] JOAQUIN COUGHLIN S PATIENT Selected Encounter This section includes the information on record at [place] for the Encounter. Date/Time Encounter Type Encounter Description Reason Pro vider Source Jan 31, 2024 12:07 PM Inpatient Visit DAILY HOSPITALIZATION DATA [facility] Encounter Template Text not used by [place] Plan of Treatment: Future Appointments (+ 6 months) and Future Tests (+/- 45 days) The Plan of Treatment section includes future care activities for the patient from all [facility] This section includes future appointments and future orders which are active, pending or scheduled. Future Appointments This section includes appointments that were scheduled to occur 6 months from the date of the Encounter, up to a maximum of 20 appointments. The data comes from all [facility]. Appointment Date/Time Appointment Type Appointme nt Facility Name Feb 21, 2024 10:00 AM AMBULATORY - MEDICINE [facility] Feb 24, 2024 12:15 PM AMBULATORY - MEDICINE [facility] Feb 24, 2024 01:00 PM AMBULATORY MEDICINE [facility] Mar 02, 2024 01:00 PM AMBULATORY - REHAB MEDICIN E [facility] Jul 31, 2024 09:20 AM AMBULATORY - SURGERY [facility] Active, Pending, and Scheduled Orders [...] all [facility]. Test Date/Time Test Type Test Details Facility Name Jan 18, 2024 04:23 PM Consult Order COMMUNITY CARE-ECHOCARDIOGRAPHY [facility] Histotechnologist's Choice [facility] Jan 19, 2024 12:10 PM Consult Order COMMUNITY CARE-DERMATOLOGY [facility] Histotechnologist's [facility] Jan 28, 2024 02:00 AM Laboratory - Chemistry Order TROPONIN I, HS PLASMA STAT WC [facility] Jan 31, 2024 09:30 AM Consult Order CARDIAC REHAB OUTPT Cons Bedside [facility] Jan 31, 2024 10:13 AM Consult Order CARDIOLOGY INTERVENTIONAL CLINIC OUTPT Cons Histotechnologist's Choice [facility] Lab Results: +/- 30 days of the [...] Jan 31, 2024 10:13 AM Reporting Lab: [facility] [id number] Performing Lab: [facility] [address] HEMOGLOBIN A1C 5.4 4.0-6.0 Jan 31, 2024 10:50 AM [facility] LIPID PANEL,FASTING Specimen Type: PLASMA No comment entered. Ordering Provider: JULIET SMART Report Released Date/Time: Jan 31, 2024 10:13 AM Reporting Lab: [facility] [address] Performing Lab: [facility] [address] CHOLESTEROL 125 mg/dL <199 TRIGLYCERIDE 95 mg/dL <149 .HDL 37 mg/dL L >40 LDL CALCULATION 69 mg/dL <99 VLDL CALCULATION 19 mg/dL <29 NON HDL CHOLESTEROL 88 mg/dL <129 Jan 31, 2024 07:29 AM [facility] CBC Specimen Type: BLOOD No comment entered. Ordering Provider: BASHIR CARVAJAL Report Released Date/Time: Jan 30, 2024 01:03 PM Reporting Lab: [facility] [address] Performing Lab: [facility] [address] WBC 7.3 4.0-11.0 RBC 3.83 L 4.60-6.20 [...] Jan 30, 2024 01:03 PM Reporting Lab: [facility] [address] Performing Lab: [facility] [address] CREATININE 1.3 mg/dL H 0.7-1.2 UREA NITROGEN [...] Jan 30, 2024 10:43 AM Reporting Lab: [facility] [address] Performing Lab: [facility] [address] POC ACT 241 s H 84-139 Jan 30, 2024 10:08 AM [facility] POC ACT Specimen Type: BLOOD No comment entered. Ordering Provider: RODO CHRISTY Report Released Date/Time: Jan 30, 2024 10:14 AM Reporting Lab: [facility] [address] Performing Lab: [facility] [address] POC ACT 289 s H 84-139 Jan 30, 2024 09:34 AM [facility] POC ACT Specimen Type: BLOOD No comment entered. Ordering Provider: RODO CHRISTY Report Released Date/Time: Jan 30, 2024 10:14 AM Reporting Lab: [facility] [address] Performing Lab: [facility] [address] POC ACT 294 s H 84-139 Jan 30, 2024 05:37 AM [facility] HEPARIN APTT Specimen Type: PLASMA No comment entered. Ordering Provider: BASHIR CARVAJAL Report Released Date/Time: Jan 29, 2024 09:43 PM Reporting Lab: [facility] [address] Performing Lab: [facility] [address] HEPARIN APTT 83.2 s 48.0-92.0 Jan 30, 2024 05:37 AM [facility] BASIC METABOLIC PANEL+MG Specimen Type: PLASMA No comment entered. Ordering Provider: BASHIR CARVAJAL Report Released Date/Time: Jan 29, 2024 12:19 PM Reporting Lab: [facility] [address] Performing Lab: [facility] [address] CREATININE 1.4 mg/dL H 0.7-1.2 UREA NITROGEN [...] Reported To: Tomasa Delcid PharmD 01/29/24 @[address] [place] [address]. Critical value report confirmed. Ordering Provider: MERY SAMUEL Report Released Date/Time: Jan 29, 2024 03:00 PM Reporting Lab: [facility] [address] Performing Lab: [facility] [address] HEPARIN APTT 214.6 s HH 48.0-92.0 Jan 29, 2024 06:24 AM [facility] BASIC METABOLIC PANEL+MG Specimen Type: PLASMA No comment entered. Ordering Provider: BASHIR CARVAJAL Report Released Date/Time: Jan 28, 2024 04:36 PM Reporting Lab: [facility] [address] Performing Lab: [facility] [address] CREATININE 1.6 mg/dL H 0.7-1.2 UREA NITROGEN [...] BLOOD No comment entered. Ordering Provider: RODO CHIRSTY Report Released Date/Time: Jan 28, 2024 05:54 AM Reporting Lab: [facility] [address] Performing Lab: [facility] [address] EXTRA PURPLE TUBE RECEIVED Jan 28, 2024 05:53 AM [facility] ALBUMIN Specimen Type: PLASMA No comment entered. Ordering Provider: BASHIR CARVAJAL Report Released Date/Time: Jan 27, 2024 04:49 PM Reporting Lab: [facility] [address] Performing Lab: [facility] [address] ALBUMIN 3.5 g/dL 3.5-5.2 Jan 28, 2024 05:53 AM [facility] BASIC METABOLIC PANEL+MG Specimen Type: PLASMA No comment entered. Ordering Provider: BASHIR CARVAJAL Report Released Date/Time: Jan 27, 2024 05:44 PM Reporting Lab: [facility] [address] Performing Lab: [facility] [address] CREATININE 1.4 mg/dL H 0.7-1.2 UREA NITROGEN [...] Jan 27, 2024 09:15 PM Reporting Lab: [facility] [address] Performing Lab: [facility] [address] TROPONIN I, HS 128 HH <35 Jan 28, 2024 12:35 AM [facility] COVID-19 DIAGNOSTIC PANEL (CEPHEID) Specimen Type: NASOPHARYNGEAL Comment: Cepheid GeneXpert (618) Ordering Provider: LUCAS HAWTHORNE Report Released Date/Time: Jan 27, 2024 04:28 PM Reporting Lab: [facility] [address] Performing Lab: [facility] [address] COVID-19 (CEPHEID) Not Detected Not Detected Jan 28, 2024 12:35 AM [facility] HEPARIN APTT Specimen Type: PLASMA Comment: Critical Value Reported To: Deena Oliveros PharmD 01/28/24 @0110 HV. Critical value report confirmed. Ordering Provider: NATALIE ORDOÑEZ Report Released Date/Time: Jan 27, 2024 07:18 PM Reporting Lab: [facility] [address] Performing Lab: [facility] [address] HEPARIN APTT 133.9 s HH 48.0-92.0 Jan 28, 2024 12:35 AM [facility] TROPONIN I, HS Specimen Type: PLASMA Comment: Critical value previously reported on patient. Ordering Provider: BRANDON MEJIA Report Released Date/Time: Jan 27, 2024 09:15 PM Reporting Lab: [facility] [address] Performing Lab: [facility] [address] TROPONIN I, HS 158 HH <35 Jan 27, 2024 09:22 PM [facility] TROPONIN I, HS Specimen Type: PLASMA Comment: Critical value previously reported on patient. Ordering Provider: BASHIR CARVAJAL Report Released Date/Time: Jan 27, 2024 08:38 PM Reporting Lab: [facility] [address] Performing Lab: [facility] [address] TROPONIN I, HS 146 HH <35 Jan 27, 2024 06:52 PM [facility] TROPONIN I, HS Specimen Type: PLASMA Comment: Critical Value Reported To: Brandon Mejia MD 01/27/24 @1950 KL. Critical value report confirmed. Ordering Provider: BASHIR CARVAJAL Report Released Date/Time: Jan 27, 2024 04:54 PM Reporting Lab: [facility] [address] Performing Lab: [facility] [address] TROPONIN I, HS 136 HH <35 Jan 27, 2024 06:52 PM [facility] BASIC METABOLIC PANEL+MG Specimen Type: PLASMA No comment entered. Ordering Provider: BASHIR CARVAJAL Report Released Date/Time: Jan 27, 2024 04:54 PM Reporting Lab: [facility] [address] Performing Lab: [facility] [address] CREATININE 1.3 mg/dL H 0.7-1.2 UREA NITROGEN [...] Jan 27, 2024 04:54 PM Reporting Lab: [facility] [address] Performing Lab: [facility] [address] WBC 6.0 4.0-11.0 RBC 3.91 L 4.60-6.20 [...] $APHDR Reporting Lab: [facility] [CLIA# [id number]] [place] [address] - - - - - - - [...] - PATHOLOGY REPORT Accession No. [id number] - - - - - - - [...] - PATHOLOGY REPORT Accession No. [id number] - - - - - - - [...] 0.1 cm. The specimen is inked. CE. (D)[facility] MICROSCOPIC DESCRIPTION: Microscopic examination performed. CI. DIAGNOSES: [...] Report Performed By: [facility] [CLIA# [id number]] [place] [address] $FTR - - - - - - [...] - - GERI COUGHLIN STANDARD FORM 515 ID:[id number] SEX:M :[id number] AGE: 88 LOC:[id number] PCP: Sariah Gomes MD /shelly/ JOSE REESE M.D. STAFF PATHOLOGIST Signed: 01/06/2024 11:16 JOSE REESE [facility]
--- OUTSIDE RECORDS SUMMARY | 2024-02-10 23:37 | XMS_ITS | Encounter Summary ---
Author Name [facility] Organization [facility] [place] Address [address] [place] [id number] Care Team Providers Care Manager Sterile Processing Name Role Phone SARIAH GOMES Primary Care [...] PART B Sep 09, 2002 PART B [id number] [phone] MADYSON,JOAQUIN S PATIENT MEDICARE (WNR) MEDICARE (M) PART A Sep 09, 2002 PART A [id number] [phone] NULL,JOAQUIN S PATIENT MEDICARE (WNR) MEDICARE (M) PART A Sep 09, 2002 PART A [id number] NULL,JOAQUIN S PATIENT MEDICARE (WNR) MEDICARE (M) PART B Sep 09, 2002 PART B [id number] NULL,JOAQUIN S PATIENT Selected Encounter This section includes the information on record at [place] for the Encounter. Date/Time Encounter Type Encounter Description Reason Pro vider Source Jan 29, 2024 01:00 AM Inpatient Visit ADMIN PAT ACTIVTIES (MASNONCT) SYSTEM,CIS-ARK IHE Encounter Template Text not used by [place] Plan of Treatment: Future Appointments (+ 6 months) and Future Tests (+/- 45 days) The Plan of Treatment section includes future care activities for the patient [facility] [place] [facility] This section includes future appointments and future orders which are active, pending or scheduled. Future Appointments This section includes appointments that were scheduled to occur 6 months from the date of the Encounter, up to a maximum of 20 appointments. The data comes from all [facility]. Appointment Date/Time Appointment Type Appointme nt Facility Name Feb 21, 2024 10:00 AM AMBULATORY - MEDICINE [facility] Feb 24, 2024 12:15 PM AMBULATORY MEDICINE [facility] Feb 24, 2024 01:00 PM AMBULATORY MEDICINE [facility] Mar 02, 2024 01:00 PM AMBULATORY - REHAB MEDICIN E [facility] Active, Pending, and Scheduled Orders This section includes a listing of several types of active, pending, and scheduled orders, including clinic medications orders, diagnostic test orders, procedure orders and consult orders; where the start date of the order is 45 days before the date of the Encounter or 45 days after the date of theEncounter. The data comes from all [facility]. Test Date/Time Test Type Test Details Facility Name Jan 18, 2024 04:23 PM Consult Order COMMUNITY CARE-ECHOCARDIOGRAPHY [facility] Jan 19, 2024 12:10 PM Consult Order COMMUNITY CARE-DERMATOLOGY [facility] Jan 28, 2024 02:00 AM Laboratory - Chemistry Order TROPONIN I, HS PLASMA STAT WC [facility] Jan 31, 2024 09:30 AM Consult Order CARDIAC REHAB OUTPT Cons Bedside [facility] Jan 31, 2024 10:13 AM Consult Order CARDIOLOGY INTERVENTIONAL CLINIC OUTPT [facility] Lab Results: +/- 30 days of the encounter This section includes the Chemistry and Hematology Lab Results on record with [place] for the patient. Radiology Reports and Pathology Reports are provided separately, in subsequent sections. Lab Results This section contains the Chemistry/Hematology Results that were resulted 30 days before or 30 daysafter the date of the Encounter. Date/Time Source Result Type Result - Unit Interpretation Reference Range Comment Jan 31, 2024 10:50 AM [facility] HEMOGLOBIN A1C Specimen Type: BLOOD [...] Jan 31, 2024 10:13 AM Reporting Lab: [facility] [phone] Performing Lab: [facility] [phone] HEMOGLOBIN A1C 5.4 4.0-6.0 Jan 31, 2024 10:50 AM [facility] LIPID PANEL,FASTING Specimen Type: PLASMA No comment entered. Ordering Provider: JULIET SMART Report Released Date/Time: Jan 31, 2024 10:13 AM Reporting Lab: [facility] [phone] Performing Lab: [facility] [address] CHOLESTEROL 125 mg/dL <199 TRIGLYCERIDE 95 mg/dL <149 .HDL 37 mg/dL L >40 LDL CALCULATION 69 mg/dL <99 VLDL CALCULATION 19 mg/dL <29 NON HDL CHOLESTEROL 88 mg/dL <129 Jan 31, 2024 07:29 AM [facility] CBC Specimen Type: BLOOD No comment entered. Ordering Provider: BASHIR CARVAJAL Report Released Date/Time: Jan 30, 2024 01:03 PM Reporting Lab: [facility] [phone] Performing Lab: [facility] [phone] WBC 7.3 4.0-11.0 RBC 3.83 L 4.60-6.20 HGB 11.4 g/dL L 13.5-17.9 HCT 35.1 L 41.0-54.0 MCV 91.6 fL 80.0-100.0 MCH 29.8 pg 27.0-33.0 MCHC 32.5 g/dL 32.0-37.5 PLT 193 150-400 MPV 10.7 fL 9.1-13.0 RDW 12.2 11.5-14.5 Jan 31, 2024 07:29 AM [facility] BASIC METABOLIC PANEL+MG Specimen Type: PLASMA No comment entered. Ordering Provider: BASHIR CARVAJAL Report Released Date/Time: Jan 30, 2024 01:03 PM Reporting Lab: [facility] [phone] Performing Lab: [facility] [phone] CREATININE 1.3 mg/dL H 0.7-1.2 UREA NITROGEN 24 mg/dL 8-26 GLUCOSE 91 mg/dL 70-100 SODIUM 138 mmol/L 136-145 POTASSIUM 4.1 mmol/L 3.5-5.1 CHLORIDE 108 mmol/L H 98-107 CO2 23 mmol/L 22-29 CALCIUM 8.8 mg/dL 8.4-10.2 MAGNESIUM 2.1 mg/dL 1.6-2.6 ANION GAP 7 mmol/L 5-15 .CREAT EGFR(CKD-EPI) 54 L >60 Jan 30, 2024 10:37 AM [facility] POC ACT Specimen Type: BLOOD No comment entered. Ordering Provider: RODO CHRISTY Report Released Date/Time: Jan 30, 2024 10:43 AM Reporting Lab: [facility] [phone] Performing Lab: [facility] [address] POC ACT 241 s H 84-139 Jan 30, 2024 10:08 AM [facility] POC ACT Specimen Type: BLOOD No comment entered. Ordering Provider: RODO CHRISTY Report Released Date/Time: Jan 30, 2024 10:14 AM Reporting Lab: [facility] [phone] Performing Lab: [facility] [address] POC ACT 289 s H 84-139 Jan 30, 2024 09:34 AM [facility] POC ACT Specimen Type: BLOOD No comment entered. Ordering Provider: RODO CHRISTY Report Released Date/Time: Jan 30, 2024 10:14 AM Reporting Lab: [facility] [phone] Performing Lab: [facility] [address] POC ACT 294 s H 84-139 Jan 30, 2024 05:37 AM [facility] HEPARIN APTT Specimen Type: PLASMA No comment entered. Ordering Provider: BASHIR CARVAJAL Report Released Date/Time: Jan 29, 2024 09:43 PM Reporting Lab: [facility] [phone] Performing Lab: [facility] [phone] HEPARIN APTT 83.2 s 48.0-92.0 Jan 30, 2024 05:37 AM [facility] BASIC METABOLIC PANEL+MG Specimen Type: PLASMA No comment entered. Ordering Provider: BASHIR CARVAJAL Report Released Date/Time: Jan 29, 2024 12:19 PM Reporting Lab: [facility] [phone] Performing Lab: [facility] [address] CREATININE 1.4 mg/dL H 0.7-1.2 UREA NITROGEN 27 mg/dL H 8-26 GLUCOSE 95 mg/dL 70-100 SODIUM 139 mmol/L 136-145 POTASSIUM 4.2 mmol/L 3.5-5.1 CHLORIDE 109 mmol/L H 98-107 CO2 24 mmol/L 22-29 CALCIUM 9.0 mg/dL 8.4-10.2 MAGNESIUM 2.1 mg/dL 1.6-2.6 ANION GAP 6 mmol/L 5-15 .CREAT EGFR(CKD-EPI) 49 L >60 Jan 29, 2024 09:02 PM [facility] HEPARIN APTT Specimen Type: PLASMA Comment: Critical Value Reported To: Tomasa Delcid PharmD 01/29/24 @[address] [place] [address]. Critical value report confirmed. Ordering Provider: MERY SAMUEL Report Released Date/Time: Jan 29, 2024 03:00 PM Reporting Lab: [facility] [phone] Performing Lab: [facility] [phone] HEPARIN APTT 214.6 s HH 48.0-92.0 Jan 29, 2024 06:24 AM [facility] BASIC METABOLIC PANEL+MG Specimen Type: PLASMA No comment entered. Ordering Provider: BASHIR CARVAJAL Report Released Date/Time: Jan 28, 2024 04:36 PM Reporting Lab: [facility] [phone] Performing Lab: [facility] [address] CREATININE 1.6 mg/dL H 0.7-1.2 UREA NITROGEN 27 mg/dL H 8-26 GLUCOSE 92 mg/dL 70-100 SODIUM 140 mmol/L 136-145 POTASSIUM 4.2 mmol/L 3.5-5.1 CHLORIDE 110 mmol/L H 98-107 CO2 25 mmol/L 22-29 CALCIUM 8.8 mg/dL 8.4-10.2 MAGNESIUM 2.1 mg/dL 1.6-2.6 ANION GAP 5 mmol/L 5-15 .CREAT EGFR(CKD-EPI) 42 L >60 Jan 28, 2024 05:54 AM [facility] EXTRA PURPLE TUBE Specimen Type: BLOOD No comment entered. Ordering Provider: RODO CHRISTY Report Released Date/Time: Jan 28, 2024 05:54 AM Reporting Lab: [facility] [phone] Performing Lab: [facility] [phone] EXTRA PURPLE TUBE RECEIVED Jan 28, 2024 05:53 AM [facility] ALBUMIN Specimen Type: PLASMA No comment entered. Ordering Provider: BASHIR CARVAJAL Report Released Date/Time: Jan 27, 2024 04:49 PM Reporting Lab: [facility] [phone] Performing Lab: [facility] [phone] ALBUMIN 3.5 g/dL 3.5-5.2 Jan 28, 2024 05:53 AM [facility] BASIC METABOLIC PANEL+MG Specimen Type: PLASMA No comment entered. Ordering Provider: BASHIR CARVAJAL Report Released Date/Time: Jan 27, 2024 05:44 PM Reporting Lab: [facility] [phone] Performing Lab: [facility] [address] CREATININE 1.4 mg/dL H 0.7-1.2 UREA NITROGEN 28 mg/dL H 8-26 GLUCOSE 92 mg/dL 70-100 SODIUM 140 mmol/L 136-145 POTASSIUM 4.4 mmol/L 3.5-5.1 CHLORIDE 109 mmol/L H 98-107 CO2 23 mmol/L 22-29 CALCIUM 8.8 mg/dL 8.4-10.2 MAGNESIUM 2.1 mg/dL 1.6-2.6 ANION GAP 8 mmol/L 5-15 .CREAT EGFR(CKD-EPI) 49 L >60 Jan 28, 2024 05:52 AM [facility] TROPONIN I, HS Specimen Type: PLASMA Comment: Critical value previously reported on patient. Ordering Provider: BRANDON MEJIA Report Released Date/Time: Jan 27, 2024 09:15 PM Reporting Lab: [facility] [phone] Performing Lab: [facility] [phone] TROPONIN I, HS 128 HH <35 Jan 28, 2024 12:35 AM [facility] COVID-19 DIAGNOSTIC PANEL (CEPHEID) Specimen Type: NASOPHARYNGEAL Comment: Cepheid GeneXpert (618) Ordering Provider: LUCAS HAWTHORNE Report Released Date/Time: Jan 27, 2024 04:28 PM Reporting Lab: [facility] [phone] Performing Lab: [facility] [phone] COVID-19 (CEPHEID) Not Detected Not Detected Jan 28, 2024 12:35 AM [facility] HEPARIN APTT Specimen Type: PLASMA Comment: Critical Value Reported To: Deena Oliveros PharmD 01/28/24 @0110 HV. Critical value report confirmed. Ordering Provider: NATALIE ORDOÑEZ Report Released Date/Time: Jan 27, 2024 07:18 PM Reporting Lab: [facility] [address] Performing Lab: [facility] [address] HEPARIN APTT 133.9 s HH 48.0-92.0 Jan 28, 2024 12:35 AM [facility] TROPONIN I, HS Specimen Type: PLASMA Comment: Critical value previously reported on patient. Ordering Provider: BRANDON MEJIA Report Released Date/Time: Jan 27, 2024 09:15 PM Reporting Lab: [facility] [phone] Performing Lab: [facility] [phone] TROPONIN I, HS 158 HH <35 Jan 27, 2024 09:22 PM [facility] TROPONIN I, HS Specimen Type: PLASMA Comment: Critical value previously reported on patient. Ordering Provider: BASHIR CARVAJAL Report Released Date/Time: Jan 27, 2024 08:38 PM Reporting Lab: [facility] [phone] Performing Lab: [facility] [address] TROPONIN I, HS 146 HH <35 Jan 27, 2024 06:52 PM [facility] TROPONIN I, HS Specimen Type: PLASMA Comment: Critical Value Reported To: Brandon Mejia MD 01/27/24 @1950 KL. Critical value report confirmed. Ordering Provider: BASHIR CARVAJAL Report Released Date/Time: Jan 27, 2024 04:54 PM Reporting Lab: [facility] [phone] Performing Lab: [facility] [phone] TROPONIN I, HS 136 HH <35 Jan 27, 2024 06:52 PM [facility] BASIC METABOLIC PANEL+MG Specimen Type: PLASMA No comment entered. Ordering Provider: BASHIR CARVAJAL Report Released Date/Time: Jan 27, 2024 04:54 PM Reporting Lab: [facility] [phone] Performing Lab: [facility] [address] CREATININE 1.3 mg/dL H 0.7-1.2 UREA NITROGEN 30 mg/dL H 8-26 GLUCOSE 141 mg/dL H 70-100 SODIUM 142 mmol/L 136-145 POTASSIUM 3.4 mmol/L L 3.5-5.1 CHLORIDE 106 mmol/L 98-107 CO2 27 mmol/L 22-29 CALCIUM 8.8 mg/dL 8.4-10.2 MAGNESIUM 2.2 mg/dL 1.6-2.6 ANION GAP 9 mmol/L 5-15 .CREAT EGFR(CKD-EPI) 54 L >60 Jan 27, 2024 06:52 PM [facility] CBC Specimen Type: BLOOD No comment entered. Ordering Provider: BASHIR CARVAJAL Report Released Date/Time: Jan 27, 2024 04:54 PM Reporting Lab: [facility] [phone] Performing Lab: [facility] [phone] WBC 6.0 4.0-11.0 RBC 3.91 L 4.60-6.20 [...] and tobacco- related health factors from the [place] facility where the Encounter took place. Current Smoking Status This section includes the most current smoking, or tobacco-related health factor, from the [place] facility where the Encounter took place. Date/Time Current Smoking Status Comment Facil ity Dec 14, 2023 11:30 AM VA-TOBACCO FORMER USER [facility] Tobacco Use History This section includes a history of the smoking, or tobacco-related health factors, that were collected on or before the date of the Encounter. The data comes from the [place] facility where the Encounter took place. Date/Time Smoking Status/Tobacco Use Comment F acility Dec 14, 2023 11:30 AM VA-TOBACCO QUIT 15 YRS OR MORE [facility] Oct 13, 2022 01:30 PM VA-TOBACCO FORMER USER [facility] Oct 13, 2022 01:30 PM VA-TOBACCO QUIT 15 YRS OR MORE [facility] Jul 27, 2021 10:00 AM VA-TOBACCO FORMER USER [facility] Jul 27, 2021 10:00 AM VA-TOBACCO QUIT 15 YRS OR MORE [facility] Jan 02, 2020 09:00 AM VA-TOBACCO FORMER USER [facility] Jan 02, 2020 09:00 AM VA-TOBACCO QUIT 15 YRS OR MORE [facility] Jul 21, 2018 03:00 PM VA-TOBACCO FORMER USER [facility] Jul 21, 2018 03:00 PM VA-TOBACCO QUIT 15 YRS OR MORE [facility] Dec 24, 2016 08:01 AM FORMER TOBACCO USER 7Y OR GREATE R [facility] Dec 23, 2015 08:23 AM FORMER TOBACCO USE >1Y <7Y [facility] Dec 26, 2014 10:32 AM FORMER TOBACCO USER 7Y OR GREATE R [facility] August 13, 2013 08:22 AM LIFETIME NON-TOBACCO USER [facility] August 30, 2006 08:38 AM FORMER TOBACCO USER 7Y OR GREATE R [facility] Advance Directives: All historical and current Section Date Range: From patient's date of to the date document was created. This section includes ALL of a patient's completed or amended [place] Advance and Rescinded Directives. The entries below indicate that a directive exists for the patient, but an actual copy is not included with this document. The data comes from all [facility]. Date Advance Directives Provider Source August 30, 2006 ADVANCE DIRECTIVE ARGENIS CRAMER [facility] Pathology Reports: +/- 30 days of [...] the Encounter. The data comes from all [place] treatment facilities. Date/Time Pathology Report Provider Source Jan 06, 2024 11:16 AM LR SURGICAL PATHOL OGY REPORT: LOCAL TITLE: LR SURGICAL PATHOLOGY REPORT STANDARD TITLE: PATHOLOGY REPORT DATE OF NOTE: JAN 06, 2024@11:16:39 ENTRY DATE: JAN 06, 2024@11:16:39 AUTHOR: JOSE REESE COSIGNER: URGENCY: STATUS: COMPLETED $APHDR Reporting Lab: [facility] [CLIA# [id number]] [place] [address] - - - - - - - [...] - PATHOLOGY REPORT Accession No. [id number] - - - - - - - [...] - PATHOLOGY REPORT Accession No. [id number] - - - - - - - [...] 0.1 cm. The specimen is inked. CE. (D)[facility] MICROSCOPIC DESCRIPTION: Microscopic examination performed. CI. 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 STAFF PATHOLOGIST Signed Jan 06, 2024@11:16 Performing Laboratory: Surgical Pathology Report Performed By: [facility] [CLIA# [id number]] [place] [address] $FTR - - - - - - - - - - - - - - - - - - - - - - - - - - - - - - - - - - - - - - - - (End of report) JOSE REESE MD [facility] Date Jan 06, 2024 - - - - - - - - - - - - - - - - - - - - - - - - - - - - - - - - - - - - - - - - MADYSON,GERI NUNEZ STANDARD FORM 515 ID:[id number] SEX:M :[id number] AGE: 88 LOC:[id number] PCP: Sariah Gomes MD /shelly/ JOSE REESE M.D. STAFF PATHOLOGIST Signed: 01/06/2024 11:16 JOSE REESE [facility] Encounter Notes: All associated encounter notes This section contains the clinical notes associated to the Encounter. Date/Time Encounter Note(s) Provider Source Jan 29, 2024 01:00 AM CRITICAL CARE UNIT NOTE: LOCAL TITLE: ICCA INPATIENT FLOWSHEET STANDARD TITLE: CRITICAL CARE UNIT NOTE DATE OF NOTE: JAN 29, 2024@01:00 ENTRY DATE: JAN 30, 2024@14:38:18 AUTHOR: SYSTEM,CIS-ARK EXP COSIGNER: URGENCY: STATUS: COMPLETED This is a place barron only. Please see [employer] to view document. /es/ CIS-ARK SYSTEM ICU DOCUMENT IMPORT Signed: 01/30/2024 14:38 SYSTEM,CIS-ARK [facility] Jan 29, 2024 01:00 AM CRITICAL CARE UNIT NOTE: LOCAL TITLE: ICCA RESPIRATORY THERAPY FLOWSHEET STANDARD TITLE: CRITICAL CARE UNIT NOTE DATE OF NOTE: JAN 29, 2024@01:00 ENTRY DATE: JAN 30, 2024@15:08:38 AUTHOR: SYSTEM,CIS-ARK EXP COSIGNER: URGENCY: STATUS: COMPLETED This is a place barron only. Please see [email or web address] to view document. /es/ CIS-ARK SYSTEM ICU DOCUMENT IMPORT Signed: 01/30/2024 15:08 SYSTEM,CIS-SHIRA [facility]
--- OUTSIDE RECORDS SUMMARY | 2024-02-10 23:38 | XMS_ITS | Encounter Summary ---
Author Name [facility] [place] [facility] [place] Address [address] [place] [id number] Care Team Providers Care Sales Order Coordinator Name Role Phone SARIAH GOMES Primary Care [...] PART A Sep 09, 2002 PART A [id number] JOAQUIN COUGHLIN S PATIENT MEDICARE (WNR) MEDICARE (M) PART B Sep 09, 2002 PART B [id number] [phone] NULL,JOAUQIN S PATIENT MEDICARE (WNR) MEDICARE (M) PART A Sep 09, 2002 PART A [id number] JOAQUIN COUGHLIN S PATIENT MEDICARE (WNR) MEDICARE (M) PART B Sep 09, 2002 PART B [id number] JOAQUIN COUGHLIN S PATIENT Selected Encounter This section includes the information on record at [place] for the Encounter. Date/Time Encounter Type Encounter Description Reason Pro vider Source Jan 30, 2024 10:35 AM Inpatient Visit ADMIN PAT ACTIVTIES (MASNONCT) IHE Encounter Template Text not used by [place] Plan of Treatment: Future Appointments (+ 6 months) and Future Tests (+/- 45 days) The Plan of Treatment section includes future care activities for the patient from all [place] [facility]. This section includes future appointments and future orders which are active, pending or scheduled. Future Appointments This section includes appointments that were scheduled to occur 6 months from the date of the Encounter, up to a maximum of 20 appointments. The data comes from all [facility]. Appointment Date/Time Appointment Type Appointme nt Facility Name Feb 21, 2024 10:00 AM AMBULATORY - MEDICINE [facility] Feb 24, 2024 12:15 PM AMBULATORY MEDICINE [facility] Feb 24, 2024 01:00 PM AMBULATORY - MEDICINE [facility] Mar 02, 2024 01:00 PM AMBULATORY - REHAB MEDICIN E [facility] Active, Pending, and Scheduled Orders This section [...] 04:23 PM Consult Order COMMUNITY CARE-ECHOCARDIOGRAPHY [facility] Jan 19, 2024 12:10 PM Consult Order COMMUNITY CARE-DERMATOLOGY [facility] Jan 28, 2024 02:00 AM Laboratory - Chemistry Order TROPONIN I, HS PLASMA STAT WC [facility] Jan 31, 2024 09:30 AM Consult Order CARDIAC REHAB OUTPT Cons Bedside [facility] Jan 31, 2024 10:13 AM Consult Order CARDIOLOGY INTERVENTIONAL CLINIC OUTPT [facility] Lab Results: +/- 30 days of the encounter This section includes the Chemistry and Hematology Lab Results on record with [place] for the patient. Radiology Reports and Pathology Reports are provided separately, in subsequent sections. Lab Results This section contains the Chemistry/Hematology Results that were resulted 30 days before or 30 daysafter the date of the Encounter. Date/Time Source Result Type Result - Unit Interpretation Reference Range Comment Jan 31, 2024 10:50 AM [facility] LIPID PANEL,FASTING Specimen Type: PLASMA No comment entered. Ordering Provider: JULIET SMART Report Released Date/Time: Jan 31, 2024 10:13 AM Reporting Lab: [facility] [phone] Performing Lab: [facility] [address] CHOLESTEROL 125 mg/dL <199 TRIGLYCERIDE 95 mg/dL <149 .HDL 37 mg/dL L >40 LDL CALCULATION 69 mg/dL <99 VLDL CALCULATION 19 mg/dL <29 NON HDL CHOLESTEROL 88 mg/dL <129 Jan 31, 2024 10:50 AM [facility] HEMOGLOBIN A1C Specimen Type: BLOOD Comment: Values [...] 10:13 AM Reporting Lab: [facility] [phone] Performing Lab: [facility] [address] HEMOGLOBIN A1C 5.4 4.0-6.0 Jan 31, 2024 07:29 AM [facility] CBC Specimen Type: BLOOD No comment entered. Ordering Provider: BASHIR CARVAJAL Report Released Date/Time: Jan 30, 2024 01:03 PM Reporting Lab: [facility] [address] Performing Lab: [facility] [address] WBC 7.3 4.0-11.0 RBC 3.83 L 4.60-6.20 HGB 11.4 g/dL L 13.5-17.9 HCT 35.1 L 41.0-54.0 MCV 91.6 fL 80.0-100.0 MCH 29.8 pg 27.0-33.0 MCHC 32.5 g/dL 32.0-37.5 PLT 193 150-400 MPV 10.7 fL 9.1-13.0 RDW 12.2 11.5-14.5 Jan 31, 2024 07:29 AM [facility] BASIC METABOLIC PANEL+MG Specimen Type: PLASMA No comment entered. Ordering Provider: BASHIR CARVAJAL Report Released Date/Time: Jan 30, 2024 01:03 PM Reporting Lab: [facility] [phone] Performing Lab: [facility] [address] CREATININE 1.3 mg/dL H 0.7-1.2 UREA NITROGEN 24 mg/dL 8-26 GLUCOSE 91 mg/dL 70-100 SODIUM 138 mmol/L 136-145 POTASSIUM 4.1 mmol/L 3.5-5.1 CHLORIDE 108 mmol/L H 98-107 CO2 23 mmol/L 22-29 CALCIUM 8.8 mg/dL 8.4-10.2 MAGNESIUM 2.1 mg/dL 1.6-2.6 ANION GAP 7 mmol/L 5-15 .CREAT EGFR(CKD-EPI) 54 L >60 Jan 30, 2024 10:37 AM [facility] POC ACT Specimen Type: BLOOD No comment entered. Ordering Provider: RODO CHRISTY Report Released Date/Time: Jan 30, 2024 10:43 AM Reporting Lab: [facility] [address] Performing Lab: [facility] [address] POC ACT 241 s H 84-139 Jan 30, 2024 10:08 AM [facility] POC ACT Specimen Type: BLOOD No comment entered. Ordering Provider: RODO CHRISTY Report Released Date/Time: Jan 30, 2024 10:14 AM Reporting Lab: [facility] [phone] Performing Lab: [facility] [address] POC ACT 289 s H 84-139 Jan 30, 2024 09:34 AM [facility] POC ACT Specimen Type: BLOOD No comment entered. Ordering Provider: RODO CHRISTY Report Released Date/Time: Jan 30, 2024 10:14 AM Reporting Lab: [facility] [phone] Performing Lab: [facility] [phone] POC ACT 294 s H 84-139 Jan 30, 2024 05:37 AM [facility] HEPARIN APTT Specimen Type: PLASMA No comment entered. Ordering Provider: BASHIR CARVAJAL Report Released Date/Time: Jan 29, 2024 09:43 PM Reporting Lab: [facility] [phone] Performing Lab: [facility] [address] HEPARIN APTT 83.2 s 48.0-92.0 Jan 30, 2024 05:37 AM [facility] BASIC METABOLIC PANEL+MG Specimen Type: PLASMA No comment entered. Ordering Provider: BASHIR CARVJAAL Report Released Date/Time: Jan 29, 2024 12:19 PM Reporting Lab: [facility] [phone] Performing Lab: [facility] [phone] CREATININE 1.4 mg/dL H 0.7-1.2 UREA NITROGEN 27 mg/dL H 8-26 GLUCOSE 95 mg/dL 70-100 SODIUM 139 mmol/L 136-145 POTASSIUM 4.2 mmol/L 3.5-5.1 CHLORIDE 109 mmol/L H 98-107 CO2 24 mmol/L 22-29 CALCIUM 9.0 mg/dL 8.4-10.2 MAGNESIUM 2.1 mg/dL 1.6-2.6 ANION GAP 6 mmol/L 5-15 .CREAT EGFR(CKD-EPI) 49 L >60 Jan 29, 2024 09:02 PM [facility] HEPARIN APTT Specimen Type: PLASMA Comment: Critical Value Reported To: Tomasa Delcid PharmD 01/29/24 @212[facility]. Critical value report confirmed. Ordering Provider: MERY SAMUEL Report Released Date/Time: Jan 29, 2024 03:00 PM Reporting Lab: [facility] [phone] Performing Lab: [facility] [address] HEPARIN APTT 214.6 s HH 48.0-92.0 Jan 29, 2024 06:24 AM [facility] BASIC METABOLIC PANEL+MG Specimen Type: PLASMA No comment entered. Ordering Provider: BASHIR CARVAJAL Report Released Date/Time: Jan 28, 2024 04:36 PM Reporting Lab: [facility] [address] Performing Lab: [facility] [address] CREATININE 1.6 mg/dL H 0.7-1.2 UREA NITROGEN 27 mg/dL H 8-26 GLUCOSE 92 mg/dL 70-100 SODIUM 140 mmol/L 136-145 POTASSIUM 4.2 mmol/L 3.5-5.1 CHLORIDE 110 mmol/L H 98-107 CO2 25 mmol/L 22-29 CALCIUM 8.8 mg/dL 8.4-10.2 MAGNESIUM 2.1 mg/dL 1.6-2.6 ANION GAP 5 mmol/L 5-15 .CREAT EGFR(CKD-EPI) 42 L >60 Jan 28, 2024 05:54 AM [facility] EXTRA PURPLE TUBE Specimen Type: BLOOD No comment entered. Ordering Provider: RODO CHRISTY Report Released Date/Time: Jan 28, 2024 05:54 AM Reporting Lab: [facility] [phone] Performing Lab: [facility] [phone] EXTRA PURPLE TUBE RECEIVED Jan 28, 2024 05:53 AM [facility] ALBUMIN Specimen Type: PLASMA No comment entered. Ordering Provider: BASHIR CARVAJAL Report Released Date/Time: Jan 27, 2024 04:49 PM Reporting Lab: [facility] [phone] Performing Lab: [facility] [address] ALBUMIN 3.5 g/dL 3.5-5.2 Jan 28, 2024 05:53 AM [facility] BASIC METABOLIC PANEL+MG Specimen Type: PLASMA No comment entered. Ordering Provider: BASHIR CARVAJAL Report Released Date/Time: Jan 27, 2024 05:44 PM Reporting Lab: [facility] [address] Performing Lab: [facility] [address] CREATININE 1.4 mg/dL H 0.7-1.2 UREA NITROGEN 28 mg/dL H 8-26 GLUCOSE 92 mg/dL 70-100 SODIUM 140 mmol/L 136-145 POTASSIUM 4.4 mmol/L 3.5-5.1 CHLORIDE 109 mmol/L H 98-107 CO2 23 mmol/L 22-29 CALCIUM 8.8 mg/dL 8.4-10.2 MAGNESIUM 2.1 mg/dL 1.6-2.6 ANION GAP 8 mmol/L 5-15 .CREAT EGFR(CKD-EPI) 49 L >60 Jan 28, 2024 05:52 AM [facility] TROPONIN I, HS Specimen Type: PLASMA Comment: Critical value previously reported on patient. Ordering Provider: BRANDON MEJIA Report Released Date/Time: Jan 27, 2024 09:15 PM Reporting Lab: [facility] [address] Performing Lab: [facility] [phone] TROPONIN I, HS 128 HH <35 Jan 28, 2024 12:35 AM [facility] COVID-19 DIAGNOSTIC PANEL (CEPHEID) Specimen Type: NASOPHARYNGEAL Comment: Cepheid GeneXpert (618) Ordering Provider: LUCAS HAWTHORNE Report Released Date/Time: Jan 27, 2024 04:28 PM Reporting Lab: [facility] [phone] Performing Lab: [facility] [phone] COVID-19 (CEPHEID) Not Detected Not Detected Jan 28, 2024 12:35 AM [facility] TROPONIN I, HS Specimen Type: PLASMA Comment: Critical value previously reported on patient. Ordering Provider: BRANDON MEJIA Report Released Date/Time: Jan 27, 2024 09:15 PM Reporting Lab: [facility] [address] Performing Lab: [facility] [address] TROPONIN I, HS 158 HH <35 Jan 28, 2024 12:35 AM [facility] HEPARIN APTT Specimen Type: PLASMA Comment: Critical Value Reported To: Deena Oliveros PharmD 01/28/24 @0110 HV. Critical value report confirmed. Ordering Provider: NATALIE ORDOÑEZ Report Released Date/Time: Jan 27, 2024 07:18 PM Reporting Lab: [facility] [address] Performing Lab: [facility] [address] HEPARIN APTT 133.9 s HH 48.0-92.0 Jan 27, 2024 09:22 PM [facility] TROPONIN I, HS Specimen Type: PLASMA Comment: Critical value previously reported on patient. Ordering Provider: BASHIR CARVAJAL Report Released Date/Time: Jan 27, 2024 08:38 PM Reporting Lab: [facility] [phone] Performing Lab: [facility] [address] TROPONIN I, HS 146 HH <35 Jan 27, 2024 06:52 PM [facility] TROPONIN I, HS Specimen Type: PLASMA Comment: Critical Value Reported To: Brandon Mejia MD 01/27/24 @1950 KLM. Critical value report confirmed. Ordering Provider: BASHIR CARVAJAL Report Released Date/Time: Jan 27, 2024 04:54 PM Reporting Lab: [facility] [address] Performing Lab: [facility] [address] TROPONIN I, HS 136 HH <35 Jan 27, 2024 06:52 PM [facility] CBC Specimen Type: BLOOD No comment entered. Ordering Provider: BASHIR CARVAJAL Report Released Date/Time: Jan 27, 2024 04:54 PM Reporting Lab: [facility] [address] Performing Lab: [facility] [address] WBC 6.0 4.0-11.0 RBC 3.91 L 4.60-6.20 HGB 12.1 g/dL L 13.5-17.9 HCT 36.5 L 41.0-54.0 MCV 93.4 fL 80.0-100.0 MCH 30.9 pg 27.0-33.0 MCHC 33.2 g/dL 32.0-37.5 PLT 177 150-400 MPV 10.7 fL 9.1-13.0 RDW 12.4 11.5-14.5 Jan 27, 2024 06:52 PM [facility] BASIC METABOLIC PANEL+MG Specimen Type: PLASMA No comment entered. Ordering Provider: BASHIR CARVAJAL Report Released Date/Time: Jan 27, 2024 04:54 PM Reporting Lab: [facility] [address] Performing Lab: [facility] [address] CREATININE 1.3 mg/dL H 0.7-1.2 UREA NITROGEN [...] 2024 08:00 AM 148.37 23 [facility] Social History: Smoking Status (Most current) and Tobacco Use (All prior to encounter date) This section includes the most current, and the historical, smoking and tobacco- related health factors from the [place] facility where the Encounter took place. Current Smoking Status This section includes the most current smoking, or tobacco-related health factor, from the [place] facility where the Encounter took place. Date/Time Current Smoking Status Comment Facil ity Dec 14, 2023 11:30 AM VA-TOBACCO QUIT 15 YRS OR MORE [facility] Tobacco Use History This section includes a history of the smoking, or tobacco-related health factors, that were collected on or before the date of the Encounter. The data comes from the [place] facility where the Encounter took place. Date/Time Smoking Status/Tobacco Use Comment F acility Dec 14, 2023 11:30 AM VA-TOBACCO QUIT 15 YRS OR MORE [facility] Oct 13, 2022 01:30 PM VA-TOBACCO FORMER USER [facility] Oct 13, 2022 01:30 PM VA-TOBACCO QUIT 15 YRS OR MORE [facility] Jul 27, 2021 10:00 AM VA-TOBACCO FORMER USER [facility] Jul 27, 2021 10:00 AM VA-TOBACCO QUIT 15 YRS OR MORE [facility] Jan 02, 2020 09:00 AM VA-TOBACCO FORMER USER [facility] Jan 02, 2020 09:00 AM VA-TOBACCO QUIT 15 YRS OR MORE [facility] Jul 21, 2018 03:00 PM VA-TOBACCO FORMER USER [facility] Jul 21, 2018 03:00 PM VA-TOBACCO QUIT 15 YRS OR MORE [facility] Dec 24, 2016 08:01 AM FORMER TOBACCO USER 7Y OR GREATE R [facility] Dec 23, 2015 08:23 AM FORMER TOBACCO USE >1Y <7Y [facility] Dec 26, 2014 10:32 AM FORMER TOBACCO USER 7Y OR GREATE R [facility] August 13, 2013 08:22 AM LIFETIME NON-TOBACCO USER [facility] August 30, 2006 08:38 AM FORMER TOBACCO USER 7Y OR GREATE R [facility] Advance Directives: All historical and current Section Date Range: From patient's date of to the date document was created. This section includes ALL of a patient's completed or amended [place] Advance and Rescinded Directives. The entries below indicate that a directive exists for the patient, but an actual copy is not included with this document. The data comes from all [place] facilities. Date Advance Directives Provider Source August 30, 2006 ADVANCE DIRECTIVE ARGENIS CRAMER [facility] Pathology Reports: +/- 30 days of [...] the Encounter. The data comes from all [place] treatment facilities. Date/Time Pathology Report Provider Source Jan 06, 2024 11:16 AM [facility] SURGICAL PATHOL OGY REPORT: LOCAL TITLE: LR SURGICAL PATHOLOGY REPORT STANDARD TITLE: PATHOLOGY REPORT DATE OF NOTE: JAN 06, 2024@11:16:39 ENTRY DATE: JAN 06, 2024@11:16:39 AUTHOR: JOSE REESE COSIGNER: URGENCY: STATUS: COMPLETED $APHDR Reporting Lab: [facility] [CLIA# [id number]] [place] [address] - - - - - - - [...] - PATHOLOGY REPORT Accession No. [id number] - - - - - - - [...] - PATHOLOGY REPORT Accession No. [id number] - - - - - - - [...] 0.1 cm. The specimen is inked. CE. ([facility] MICROSCOPIC DESCRIPTION: Microscopic [...] Performing Laboratory: Surgical Pathology Report Performed By: [facility] [CLIA# [id number]] [place] [address] $FTR - - - - - - [...] - - MADYSON,GERI NUNEZ STANDARD FORM 515 ID:[id number] SEX:M :[id number] AGE: 88 LOC:[id number] PCP: Sariah Gomes MD /shelly/ JOSE REESE M.D. STAFF PATHOLOGIST Signed: 01/06/2024 11:16 JOSE REESE [facility] Encounter Notes: All associated encounter notes This section contains the clinical notes associated to the Encounter. Date/Time Encounter Note(s) Provider Source Jan 30, 2024 10:35 AM PROCEDURE NOTE: LOCAL TITLE: MODERATE SEDATION POST-SEDATION NOTE STANDARD TITLE: PROCEDURE NOTE DATE OF NOTE: JAN 30, 2024@10:35 ENTRY DATE: FEB 01, 2024@08:41:12 AUTHOR: CAROLYN RUSSELL EXP COSIGNER: URGENCY: STATUS: COMPLETED VistA Imaging - Scanned Document See Banksnob. /shelly/ CAROLYN RUSSELL [facility]IST[facility] STERILE TECH Signed: 02/01/2024 08:41 CAROLYN RUSSELL [facility]
--- OUTSIDE RECORDS SUMMARY | 2024-02-10 23:38 | XMS_ITS | Encounter Summary ---
Author Name [facility] Organization [facility] [place] Address [address] [place] [id number] Care Team Providers Care Mechanical Engineering Intern Name Role Phone SARIAH GOMES Primary Care [...] PART A Sep 09, 2002 PART A [id number] JOAQUIN COUGHLIN S PATIENT MEDICARE (WNR) MEDICARE (M) PART B Sep 09, 2002 PART B [id number] JOAQUIN COUGHLIN S PATIENT MEDICARE (WNR) MEDICARE (M) PART A Sep 09, 2002 PART A [id number] JOAQUIN COUGHLIN S PATIENT MEDICARE (WNR) MEDICARE (M) PART B Sep 09, 2002 PART B [id number] JOAQUIN COUGHLIN PATIENT Selected Encounter This section includes the information on record at [place] for the Encounter. Date/Time Encounter Type Encounter Description Reason Pro vider Source Feb 03, 2024 03:02 PM Outpatient Encounter CARDIOLOGY IHE Encounter Template Text not used by [place] Plan of Treatment: Future Appointments (+ 6 months) and Future Tests (+/- 45 days) The Plan of Treatment section includes [facility] care activities [facility] the [facility] [place] [facility] This section includes future appointments and future orders which are active, pending or scheduled. Future Appointments This section includes appointments that were scheduled to occur 6 months from the date of the Encounter, up to a maximum of 20 appointments. The data comes from all [facility]. Appointment Date/Time Appointment Type Appointme nt Facility Name Feb 21, 2024 10:00 AM AMBULATORY - MEDICINE [facility] Feb 24, 2024 12:15 PM AMBULATORY - MEDICINE [facility] Feb 24, 2024 01:00 PM AMBULATORY - MEDICINE [facility] Mar 02, 2024 01:00 PM AMBULATORY - REHAB MEDICIN E [facility] Jul 31, 2024 09:20 AM AMBULATORY - SURGERY [facility] Active, Pending, and Scheduled Orders This section includes a listing of several types of active, pending, and scheduled orders, including clinic medications orders, diagnostic test orders, procedure orders and consult orders; where the start date of the order is 45 days before the date of the Encounter or 45 days after the date of theEncounter. The data comes from all [facility]. Test Date/Time Test Type Test Details Facility Name Jan 18, 2024 04:23 PM Consult Order COMMUNITY CARE-ECHOCARDIOGRAPHY [facility] [employer] [facility] Jan 19, 2024 12:10 PM Consult Order COMMUNITY CARE-DERMATOLOGY [facility] [employer] Jan 28, 2024 02:00 AM Laboratory - Chemistry Order TROPONIN I, HS PLASMA STAT WC [facility] Jan 31, 2024 09:30 AM Consult Order CARDIAC REHAB OUTPT Cons Bedside [facility] Jan 31, 2024 10:13 AM Consult Order CARDIOLOGY INTERVENTIONAL CLINIC OUTPT [facility] [employer] Lab Results: +/- 30 days of the encounter This section includes the Chemistry and Hematology Lab Results on record with [place] for the patient. Radiology Reports and Pathology Reports are provided separately, in subsequent sections. Lab Results This section contains the Chemistry/Hematology Results that were resulted 30 days before or 30 daysafter the date of the Encounter. Date/Time Source Result Type Result - Unit Interpretation Reference Range Comment Jan 31, 2024 10:50 AM [facility] HEMOGLOBIN A1C Specimen Type: BLOOD [...] 31, 2024 10:13 AM Reporting Lab: [facility] [address] Performing Lab: [facility] [address] HEMOGLOBIN A1C 5.4 4.0-6.0 Jan 31, 2024 10:50 AM [facility] LIPID PANEL,FASTING Specimen Type: PLASMA No comment entered. Ordering Provider: JULIET SMART Report Released Date/Time: Jan 31, 2024 10:13 AM Reporting Lab: [facility] [address] Performing Lab: [facility] [address] CHOLESTEROL 125 mg/dL <199 TRIGLYCERIDE 95 mg/dL <149 .HDL 37 mg/dL L >40 LDL CALCULATION 69 mg/dL <99 VLDL CALCULATION 19 mg/dL <29 NON HDL CHOLESTEROL 88 mg/dL <129 Jan 31, 2024 07:29 AM [facility] CBC Specimen Type: BLOOD No comment entered. Ordering Provider: BASHIR CARVAJAL Report Released Date/Time: Jan 30, 2024 01:03 PM Reporting Lab: [facility] [address] Performing Lab: [facility] [address] WBC 7.3 4.0-11.0 RBC 3.83 L 4.60-6.20 HGB 11.4 g/dL L 13.5-17.9 HCT 35.1 L 41.0-54.0 MCV 91.6 fL 80.0-100.0 MCH 29.8 pg 27.0-33.0 MCHC 32.5 g/dL 32.0-37.5 PLT 193 150-400 MPV 10.7 fL 9.1-13.0 RDW 12.2 11.5-14.5 Jan 31, 2024 07:29 AM [facility] BASIC METABOLIC PANEL+MG Specimen Type: PLASMA No comment entered. Ordering Provider: BASHIR CARVAJAL Report Released Date/Time: Jan 30, 2024 01:03 PM Reporting Lab: [facility] [address] Performing Lab: [facility] [address] CREATININE 1.3 mg/dL H 0.7-1.2 UREA NITROGEN 24 mg/dL 8-26 GLUCOSE 91 mg/dL 70-100 SODIUM 138 mmol/L 136-145 POTASSIUM 4.1 mmol/L 3.5-5.1 CHLORIDE 108 mmol/L H 98-107 CO2 23 mmol/L 22-29 CALCIUM 8.8 mg/dL 8.4-10.2 MAGNESIUM 2.1 mg/dL 1.6-2.6 ANION GAP 7 mmol/L 5-15 .CREAT EGFR(CKD-EPI) 54 L >60 Jan 30, 2024 10:37 AM [facility] POC ACT Specimen Type: BLOOD No comment entered. Ordering Provider: RODO CHRISTY Report Released Date/Time: Jan 30, 2024 10:43 AM Reporting Lab: [facility] [address] Performing Lab: [facility] [address] POC ACT 241 s H 84-139 Jan 30, 2024 10:08 AM [facility] POC ACT Specimen Type: BLOOD No comment entered. Ordering Provider: RODO CHRISTY Report Released Date/Time: Jan 30, 2024 10:14 AM Reporting Lab: [facility] [address] Performing Lab: [facility] [address] POC ACT 289 s H 84-139 Jan 30, 2024 09:34 AM [facility] POC ACT Specimen Type: BLOOD No comment entered. Ordering Provider: RODO CHRISTY Report Released Date/Time: Jan 30, 2024 10:14 AM Reporting Lab: [facility] [address] Performing Lab: [facility] [address] POC ACT 294 s H 84-139 Jan 30, 2024 05:37 AM [facility] HEPARIN APTT Specimen Type: PLASMA No comment entered. Ordering Provider: BASHIR CARVAJAL Report Released Date/Time: Jan 29, 2024 09:43 PM Reporting Lab: [facility] [address] Performing Lab: [facility] [address] HEPARIN APTT 83.2 s 48.0-92.0 Jan 30, 2024 05:37 AM [facility] BASIC METABOLIC PANEL+MG Specimen Type: PLASMA No comment entered. Ordering Provider: BASHIR CARVAJAL Report Released Date/Time: Jan 29, 2024 12:19 PM Reporting Lab: [facility] [address] Performing Lab: [facility] [address] CREATININE 1.4 mg/dL H 0.7-1.2 UREA NITROGEN 27 mg/dL H 8-26 GLUCOSE 95 mg/dL 70-100 SODIUM 139 mmol/L 136-145 POTASSIUM 4.2 mmol/L 3.5-5.1 CHLORIDE 109 mmol/L H 98-107 CO2 24 mmol/L 22-29 CALCIUM 9.0 mg/dL 8.4-10.2 MAGNESIUM 2.1 mg/dL 1.6-2.6 ANION GAP 6 mmol/L 5-15 .CREAT EGFR(CKD-EPI) 49 L >60 Jan 29, 2024 09:02 PM [facility] HEPARIN APTT Specimen Type: PLASMA Comment: Critical Value Reported To: Tomasa Delcid PharmD 01/29/24 @212[facility]. Critical value report confirmed. Ordering Provider: MERY SAMUEL Report Released Date/Time: Jan 29, 2024 03:00 PM Reporting Lab: [facility] [address] Performing Lab: [facility] [address] HEPARIN APTT 214.6 s HH 48.0-92.0 Jan 29, 2024 06:24 AM [facility] BASIC METABOLIC PANEL+MG Specimen Type: PLASMA No comment entered. Ordering Provider: BASHIR CARVAJAL Report Released Date/Time: Jan 28, 2024 04:36 PM Reporting Lab: [facility] [address] Performing Lab: [facility] [address] CREATININE 1.6 mg/dL H 0.7-1.2 UREA NITROGEN 27 mg/dL H 8-26 GLUCOSE 92 mg/dL 70-100 SODIUM 140 mmol/L 136-145 POTASSIUM 4.2 mmol/L 3.5-5.1 CHLORIDE 110 mmol/L H 98-107 CO2 25 mmol/L 22-29 CALCIUM 8.8 mg/dL 8.4-10.2 MAGNESIUM 2.1 mg/dL 1.6-2.6 ANION GAP 5 mmol/L 5-15 .CREAT EGFR(CKD-EPI) 42 L >60 Jan 28, 2024 05:54 AM [facility] EXTRA PURPLE TUBE Specimen Type: BLOOD No comment entered. Ordering Provider: RODO CHRISTY Report Released Date/Time: Jan 28, 2024 05:54 AM Reporting Lab: [facility] [address] Performing Lab: [facility] [address] EXTRA PURPLE TUBE RECEIVED Jan 28, 2024 05:53 AM [facility] ALBUMIN Specimen Type: PLASMA No comment entered. Ordering Provider: BASHIR CARVAJAL Report Released Date/Time: Jan 27, 2024 04:49 PM Reporting Lab: [facility] [address] Performing Lab: [facility] [address] ALBUMIN 3.5 g/dL 3.5-5.2 Jan 28, 2024 05:53 AM [facility] BASIC METABOLIC PANEL+MG Specimen Type: PLASMA No comment entered. Ordering Provider: BASHIR CARVAJAL Report Released Date/Time: Jan 27, 2024 05:44 PM Reporting Lab: [facility] [address] Performing Lab: [facility] [address] CREATININE 1.4 mg/dL H 0.7-1.2 UREA NITROGEN 28 mg/dL H 8-26 GLUCOSE 92 mg/dL 70-100 SODIUM 140 mmol/L 136-145 POTASSIUM 4.4 mmol/L 3.5-5.1 CHLORIDE 109 mmol/L H 98-107 CO2 23 mmol/L 22-29 CALCIUM 8.8 mg/dL 8.4-10.2 MAGNESIUM 2.1 mg/dL 1.6-2.6 ANION GAP 8 mmol/L 5-15 .CREAT EGFR(CKD-EPI) 49 L >60 Jan 28, 2024 05:52 AM [facility] TROPONIN I, HS Specimen Type: PLASMA Comment: Critical value previously reported on patient. Ordering Provider: BRANDON MEJIA Report Released Date/Time: Jan 27, 2024 09:15 PM Reporting Lab: [facility] [address] Performing Lab: [facility] [address] TROPONIN I, HS 128 HH <35 Jan 28, 2024 12:35 AM [facility] COVID-19 DIAGNOSTIC PANEL (CEPHEID) Specimen Type: NASOPHARYNGEAL Comment: Cepheid GeneXpert (618) Ordering Provider: LUCAS HAWTHORNE Report Released Date/Time: Jan 27, 2024 04:28 PM Reporting Lab: [facility] [address] Performing Lab: [facility] [address] COVID-19 (CEPHEID) Not Detected Not Detected Jan 28, 2024 12:35 AM [facility] HEPARIN APTT Specimen Type: PLASMA Comment: Critical Value Reported To: Deena Oliveros PharmD 01/28/24 @0110 . Critical value report confirmed. Ordering Provider: NATALIE ORDOÑEZ Report Released Date/Time: Jan 27, 2024 07:18 PM Reporting Lab: [facility] [address] Performing Lab: [facility] [address] HEPARIN APTT 133.9 s HH 48.0-92.0 Jan 28, 2024 12:35 AM [facility] TROPONIN I, HS Specimen Type: PLASMA Comment: Critical value previously reported on patient. Ordering Provider: BRANDON MEJIA Report Released Date/Time: Jan 27, 2024 09:15 PM Reporting Lab: [facility] [address] Performing Lab: [facility] [address] TROPONIN I, HS 158 HH <35 Jan 27, 2024 09:22 PM [facility] TROPONIN I, HS Specimen Type: PLASMA Comment: Critical value previously reported on patient. Ordering Provider: BASHIR CARVAJAL Report Released Date/Time: Jan 27, 2024 08:38 PM Reporting Lab: [facility] [address] Performing Lab: [facility] [address] TROPONIN I, HS 146 HH <35 Jan 27, 2024 06:52 PM [facility] TROPONIN I, HS Specimen Type: PLASMA Comment: Critical Value Reported To: Brandon Mejia MD 01/27/24 @1950 [place]. Critical value report confirmed. Ordering Provider: BASHIR CARVAJAL Report Released Date/Time: Jan 27, 2024 04:54 PM Reporting Lab: [facility] [address] Performing Lab: [facility] [address] TROPONIN I, HS 136 HH <35 Jan 27, 2024 06:52 PM [facility] BASIC METABOLIC PANEL+MG Specimen Type: PLASMA No comment entered. Ordering Provider: BASHIR CARVAJAL Report Released Date/Time: Jan 27, 2024 04:54 PM Reporting Lab: [facility] [address] Performing Lab: [facility] [address] CREATININE 1.3 mg/dL H 0.7-1.2 UREA NITROGEN 30 mg/dL H 8-26 GLUCOSE 141 mg/dL H 70-100 SODIUM 142 mmol/L 136-145 POTASSIUM 3.4 mmol/L L 3.5-5.1 CHLORIDE 106 mmol/L 98-107 CO2 27 mmol/L 22-29 CALCIUM 8.8 mg/dL 8.4-10.2 MAGNESIUM 2.2 mg/dL 1.6-2.6 ANION GAP 9 mmol/L 5-15 .CREAT EGFR(CKD-EPI) 54 L >60 Jan 27, 2024 06:52 PM [facility] CBC Specimen Type: BLOOD No comment entered. Ordering Provider: BASHIR CARVAJAL Report Released Date/Time: Jan 27, 2024 04:54 PM Reporting Lab: [facility] [address] Performing Lab: [facility] [address] WBC 6.0 4.0-11.0 RBC 3.91 L 4.60-6.20 [...] and tobacco- related health factors from the [place] facility where the Encounter took place. Current Smoking Status This section includes the most current smoking, or tobacco-related health factor, from the [place] facility where the Encounter took place. Date/Time Current Smoking Status Comment Facil ity Dec 14, 2023 11:30 AM [facility] FORMER USER [facility] Tobacco Use History This section includes a history of the smoking, or tobacco-related health factors, that were collected on or before the date of the Encounter. The data comes from the [place] facility where the Encounter took place. Date/Time [...] ALL of a patient's completed or amended [place] Advance and Rescinded Directives. The entries below [...] the Encounter. The data comes from all [place] treatment facilities. Date/Time Pathology Report Provider Source Jan 06, 2024 11:16 AM [facility] REPORT: LOCAL TITLE: LR SURGICAL PATHOLOGY REPORT STANDARD TITLE: PATHOLOGY REPORT DATE OF NOTE: JAN 06, 2024@11:16:39 ENTRY DATE: JAN 06, 2024@11:16:39 AUTHOR: JOSE REESE COSIGNER: URGENCY: STATUS: COMPLETED $APHDR Reporting Lab: [facility] [CLIA# [id number]] [place] [address] - - - - - - - [...] - PATHOLOGY REPORT Accession No. [id number] - - - - - - - [...] - PATHOLOGY REPORT Accession No. [id number] - - - - - - - [...] cm. The specimen is inked. CE. (D)[facility] MICROSCOPIC DESCRIPTION: Microscopic examination performed. CI. DIAGNOSES: [...] Pathology Report Performed By: [facility] [CLIA# [id number]] [place] [address] $FTR - - - - - - [...] - - GERI COUGHLIN STANDARD FORM 515 ID:[id number] SEX:M :[id number] AGE: 88 LOC:[id number] PCP: Sariah Gomes MD /shelly/ JOSE REESE M.D. STAFF PATHOLOGIST Signed: 01/06/2024 11:16 JOSE REESE [facility]
--- OUTSIDE RECORDS SUMMARY | 2024-02-10 23:38 | XMS_ITS | Encounter Summary ---
Author Name [facility] [place] Organization [facility] [place] [facility] [place] Address [address] [place] [address] Care Team Providers Care Seasoner Name Role Phone SARIAH GOMES Primary Care Provider [facility] Insurance Providers: All historical and [...] PART B Sep 09, 2002 PART B [id number] JOAQUIN COUGHLIN S PATIENT MEDICARE (WNR) MEDICARE (M) PART A Sep 09, 2002 PART A [id number] NULL,JOAQUIN S PATIENT MEDICARE (WNR) MEDICARE (M) PART A Sep 09, 2002 PART A [id number] JOAQUIN COUGHLIN S PATIENT MEDICARE (WNR) MEDICARE (M) PART B Sep 09, 2002 PART B [id number] JOAQUIN COUGHLIN S PATIENT Selected Encounter This section includes the information on record at [place] for the Encounter. Date/Time Encounter Type Encounter Description Reason Provider Source Jan 30, 2024 08:16 PM HOSP IP/OBS DSCHRG MGMT >30 CARDIOLOGY ICD-10-CM I21.4 Non-ST elevation (NSTEMI) myocardial [facility] Encounter Template Text not used by [place] Assessments - Encounter Diagnoses This section includes the primary and secondary diagnoses documented for the Encounter. 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 This section includes future appointments and future orders which are active, pending or scheduled. Future Appointments This section includes appointments that were scheduled to occur 6 months from the date of the Encounter, up to a maximum of 20 appointments. The data comes from all [facility]. Appointment Date/Time Appointment Type Appointme nt Facility Name Feb 21, 2024 10:00 AM AMBULATORY - MEDICINE [facility] Feb 24, 2024 12:15 PM AMBULATORY - MEDICINE [facility] Feb 24, 2024 01:00 PM AMBULATORY - MEDICINE [facility] Mar 02, 2024 01:00 PM AMBULATORY [...] of theEncounter. The data comes from all [facility]. Test Date/Time Test Type Test Details Facility Name Jan 18, 2024 04:23 PM Consult Order COMMUNITY CARE-ECHOCARDIOGRAPHY Cons Health And Safety Coordinator's Choice [facility] Jan 19, 2024 12:10 PM Consult Order COMMUNITY CARE-DERMATOLOGY Cons Health And Safety Coordinator's Choice [facility] Jan 28, 2024 02:00 AM Laboratory - Chemistry Order TROPONIN I, HS PLASMA STAT WC [facility] Jan 31, 2024 09:30 AM Consult Order CARDIAC REHAB OUTPT Cons Bedside [facility] Jan 31, 2024 10:13 AM Consult Order CARDIOLOGY INTERVENTIONAL CLINIC OUTPT Cons Health And Safety Coordinator's Choice [facility] Lab Results: +/- 30 days [...] Jan 31, 2024 10:13 AM Reporting Lab: [facility] [address] Performing Lab: [facility] [address] HEMOGLOBIN A1C 5.4 4.0-6.0 Jan 31, 2024 10:50 AM [facility] LIPID PANEL,FASTING Specimen Type: PLASMA No comment entered. Ordering Provider: JULIET SMART Report Released Date/Time: Jan 31, 2024 10:13 AM Reporting Lab: [facility] [address] Performing Lab: [facility] [address] CHOLESTEROL 125 mg/dL <199 TRIGLYCERIDE 95 mg/dL <149 .HDL 37 mg/dL L >40 LDL CALCULATION 69 mg/dL <99 VLDL CALCULATION 19 mg/dL <29 NON HDL CHOLESTEROL 88 mg/dL <129 Jan 31, 2024 07:29 AM [facility] CBC Specimen Type: BLOOD No comment entered. Ordering Provider: BASHIR CARVAJAL Report Released Date/Time: Jan 30, 2024 01:03 PM Reporting Lab: [facility] [address] Performing Lab: [facility] [address] WBC 7.3 4.0-11.0 RBC 3.83 L 4.60-6.20 [...] Jan 30, 2024 01:03 PM Reporting Lab: [facility] [address] Performing Lab: [facility] [address] CREATININE 1.3 mg/dL H 0.7-1.2 UREA NITROGEN [...] Jan 30, 2024 10:43 AM Reporting Lab: [facility] [address] Performing Lab: [facility] [address] POC ACT 241 s H 84-139 Jan 30, 2024 10:08 AM [facility] POC ACT Specimen Type: BLOOD No comment entered. Ordering Provider: RODO CHRISTY Report Released Date/Time: Jan 30, 2024 10:14 AM Reporting Lab: [facility] [address] Performing Lab: [facility] [address] POC ACT 289 s H 84-139 Jan 30, 2024 09:34 AM [facility] POC ACT Specimen Type: BLOOD No comment entered. Ordering Provider: RODO CHRISTY Report Released Date/Time: Jan 30, 2024 10:14 AM Reporting Lab: [facility] [address] Performing Lab: [facility] [address] POC ACT 294 s H 84-139 Jan 30, 2024 05:37 AM [facility] HEPARIN APTT Specimen Type: PLASMA No comment entered. Ordering Provider: BASHIR CARVAJAL Report Released Date/Time: Jan 29, 2024 09:43 PM Reporting Lab: [facility] [address] Performing Lab: [facility] [address] HEPARIN APTT 83.2 s 48.0-92.0 Jan 30, 2024 05:37 AM [facility] BASIC METABOLIC PANEL+MG Specimen Type: PLASMA No comment entered. Ordering Provider: BASHIR CARVAJAL Report Released Date/Time: Jan 29, 2024 12:19 PM Reporting Lab: [facility] [address] Performing Lab: [facility] [address] CREATININE 1.4 mg/dL H 0.7-1.2 UREA NITROGEN [...] Value Reported To: Tomasa Delcid PharmD 01/29/24 @[address] [place] [address]. Critical value report confirmed. Ordering Provider: MERY SAMUEL Report Released Date/Time: Jan 29, 2024 03:00 PM Reporting Lab: [facility] [address] Performing Lab: [facility] [address] HEPARIN APTT 214.6 s HH 48.0-92.0 Jan 29, 2024 06:24 AM [facility] BASIC METABOLIC PANEL+MG Specimen Type: PLASMA No comment entered. Ordering Provider: BASHIR CARVAJAL Report Released Date/Time: Jan 28, 2024 04:36 PM Reporting Lab: [facility] [address] Performing Lab: [facility] [address] CREATININE 1.6 mg/dL H 0.7-1.2 UREA NITROGEN [...] Jan 28, 2024 05:54 AM Reporting Lab: [facility] [address] Performing Lab: [facility] [address] EXTRA PURPLE TUBE RECEIVED Jan 28, 2024 05:53 AM [facility] ALBUMIN Specimen Type: PLASMA No comment entered. Ordering Provider: BASHIR CARVAJAL Report Released Date/Time: Jan 27, 2024 04:49 PM Reporting Lab: [facility] [address] Performing Lab: [facility] [address] ALBUMIN 3.5 g/dL 3.5-5.2 Jan 28, 2024 05:53 AM [facility] BASIC METABOLIC PANEL+MG Specimen Type: PLASMA No comment entered. Ordering Provider: BASHIR CARVAJAL Report Released Date/Time: Jan 27, 2024 05:44 PM Reporting Lab: [facility] [address] Performing Lab: [facility] [address] CREATININE 1.4 mg/dL H 0.7-1.2 UREA NITROGEN [...] Jan 27, 2024 09:15 PM Reporting Lab: [facility] [address] Performing Lab: [facility] [address] TROPONIN I, HS 128 HH <35 Jan 28, 2024 12:35 AM [facility] COVID-19 DIAGNOSTIC PANEL (CEPHEID) Specimen Type: NASOPHARYNGEAL Comment: Cepheid GeneXpert (618) Ordering Provider: LUCAS HAWTHORNE Report Released Date/Time: Jan 27, 2024 04:28 PM Reporting Lab: [facility] [address] Performing Lab: [facility] [address] COVID-19 (CEPHEID) Not Detected Not Detected Jan 28, 2024 12:35 AM [facility] HEPARIN APTT Specimen Type: PLASMA Comment: Critical Value Reported To: Deena Oliveros PharmD 01/28/24 @0110 HV. Critical value report confirmed. Ordering Provider: NATALIE ORDOÑEZ Report Released Date/Time: Jan 27, 2024 07:18 PM Reporting Lab: [facility] [address] Performing Lab: [facility] [address] HEPARIN APTT 133.9 s HH 48.0-92.0 Jan 28, 2024 12:35 AM [facility] TROPONIN I, HS Specimen Type: PLASMA Comment: Critical value previously reported on patient. Ordering Provider: BRANDON MEJIA Report Released Date/Time: Jan 27, 2024 09:15 PM Reporting Lab: [facility] [address] Performing Lab: [facility] [address] TROPONIN I, HS 158 HH <35 Jan 27, 2024 09:22 PM [facility] TROPONIN I, HS Specimen Type: PLASMA Comment: Critical value previously reported on patient. Ordering Provider: BASHIR CARVAJAL Report Released Date/Time: Jan 27, 2024 08:38 PM Reporting Lab: [facility] [address] Performing Lab: [facility] [address] TROPONIN I, HS 146 HH <35 Jan 27, 2024 06:52 PM [facility] TROPONIN I, HS Specimen Type: PLASMA Comment: Critical Value Reported To: Brandon Mejia MD 01/27/24 @[address] [place] [address]. Critical value report confirmed. Ordering Provider: BASHIR CARVAJAL Report Released Date/Time: Jan 27, 2024 04:54 PM Reporting Lab: [facility] [address] Performing Lab: [facility] [address] TROPONIN I, HS 136 HH <35 Jan 27, 2024 06:52 PM [facility] BASIC METABOLIC PANEL+MG Specimen Type: PLASMA No comment entered. Ordering Provider: BASHIR CARVAJAL Report Released Date/Time: Jan 27, 2024 04:54 PM Reporting Lab: [facility] [address] Performing Lab: [facility] [address] CREATININE 1.3 mg/dL H 0.7-1.2 UREA NITROGEN [...] Jan 27, 2024 04:54 PM Reporting Lab: [facility] [address] Performing Lab: [facility] [address] WBC 6.0 4.0-11.0 RBC 3.91 L 4.60-6.20 [...] Jan 30, 2024 08:00 AM 148.37 23 [facility] Social History: Smoking Status (Most [...] August 30, 2006 ADVANCE DIRECTIVE ARGENIS [facility] Pathology Reports: +/- 30 days of [...] Reporting Lab: [facility] [CLIA# [id number]] [place] [address] - - - - - - - [...] - PATHOLOGY REPORT Accession No. [id number] - - - - - - - [...] - PATHOLOGY REPORT Accession No. [id number] - - - - - - - [...] The specimen is inked. CE. (D[place] [place]OS[place]: Microscopic examination performed. CI. DIAGNOSES: [...] Performed By: [facility] [CLIA# [id number]] [place] [address] $FTR - - - - - - [...] - - GERI COUGHLIN STANDARD FORM 515 ID:[id number] SEX:M :[id number] AGE: 88 LOC:[id number] PCP: Sariah Gomes MD /shelly/ JOSE REESE M.D. STAFF PATHOLOGIST Signed: 01/06/2024 11:16 JOSE REESE [facility]
--- OUTSIDE RECORDS SUMMARY | 2024-02-10 23:38 | XMS_ITS | Encounter Summary ---
Author Name [facility] [place] Organization [facility] [place] Address [address] [place] [id number] Care Team Providers Care Photoengraver Apprentice Name Role Phone SARIAH GOMES Primary Care [...] PART A Sep 09, 2002 PART A [id number] MADYSON,JOAQUIN S PATIENT MEDICARE (WNR) MEDICARE (M) PART B Sep 09, 2002 PART B [id number] NULL,JOAQUIN S PATIENT MEDICARE (WNR) MEDICARE (M) PART A Sep 09, 2002 PART A [id number] NULLJOAQUIN S PATIENT MEDICARE (WNR) MEDICARE (M) PART B Sep 09, 2002 PART B [id number] MADYSON,JOAQUIN S PATIENT Selected Encounter This section includes the information on record at [place] for the Encounter. Date/Time Encounter Type Encounter Description Reason Pro vider Source Jan 31, 2024 01:00 AM Inpatient Visit ADMIN PAT ACTIVTIES (MASNONCT) SYSTEM,CIS-ARK IHE Encounter Template Text not used by [place] Plan of Treatment: Future Appointments (+ 6 months) and Future Tests (+/- 45 days) The Plan of Treatment section includes future care activities for the patient from all [place] [facility]. This section includes future appointments and future orders which are active, pending or scheduled. Future Appointments This section includes appointments that were scheduled to occur 6 months from the date of the Encounter, up to a maximum of 20 appointments. The data comes from all [facility]. Appointment Date/Time Appointment Type Appointme nt Facility Name Feb 21, 2024 10:00 AM AMBULATORY - MEDICINE [facility] Feb 24, 2024 12:15 PM AMBULATORY - MEDICINE [facility] Feb 24, 2024 01:00 PM AMBULATORY MEDICINE [facility] Mar 02, 2024 01:00 PM AMBULATORY - REHAB MEDICIN E [facility] Jul 31, 2024 09:20 AM AMBULATORY - SURGERY [facility] Active, Pending, and Scheduled Orders This section includes a listing of several types of active, pending, and scheduled orders, including clinic medications orders, diagnostic test orders, procedure orders and consult orders; where the start date of the order is 45 days before the date of the Encounter or 45 days after the date of theEncounter. The data comes from all [facility]. Test Date/Time Test Type Test Details Facility Name Jan 18, 2024 04:23 PM Consult Order COMMUNITY CARE-ECHOCARDIOGRAPHY Cons Stamp Mounter's Choice [facility] Jan 19, 2024 12:10 PM Consult Order COMMUNITY CARE-DERMATOLOGY Cons Stamp Mounter's Choice [facility] Jan 28, 2024 02:00 AM Laboratory - Chemistry Order TROPONIN I, HS PLASMA STAT WC [facility] Jan 31, 2024 09:30 AM Consult Order CARDIAC REHAB OUTPT Cons Bedside [facility] Jan 31, 2024 10:13 AM Consult Order CARDIOLOGY INTERVENTIONAL CLINIC OUTPT Cons Stamp Mounter's Choice [facility] Lab Results: +/- 30 days of the encounter This section includes the Chemistry and Hematology Lab Results on record with [place] for the patient. Radiology Reports and Pathology Reports are provided separately, in subsequent sections. Lab Results This section contains the Chemistry/Hematology Results that were resulted 30 days before or 30 daysafter the date of the Encounter. Date/Time Source Result Type Result - Unit Interpretation Reference Range Comment Jan 31, 2024 10:50 AM [facility] HEMOGLOBIN A1C Specimen Type: BLOOD Comment: Values [...] Jan 31, 2024 10:13 AM Reporting Lab: [facility] [phone] Performing Lab: [facility] [address] HEMOGLOBIN A1C 5.4 4.0-6.0 Jan 31, 2024 10:50 AM [facility] LIPID PANEL,FASTING Specimen Type: PLASMA No comment entered. Ordering Provider: JULIET SMART Report Released Date/Time: Jan 31, 2024 10:13 AM Reporting Lab: [facility] [phone] Performing Lab: [facility] [address] CHOLESTEROL 125 mg/dL <199 TRIGLYCERIDE 95 mg/dL <149 .HDL 37 mg/dL L >40 LDL CALCULATION 69 mg/dL <99 VLDL CALCULATION 19 mg/dL <29 NON HDL CHOLESTEROL 88 mg/dL <129 Jan 31, 2024 07:29 AM [facility] CBC Specimen Type: BLOOD No comment entered. Ordering Provider: BASHIR CARVAJAL Report Released Date/Time: Jan 30, 2024 01:03 PM Reporting Lab: [facility] [address] Performing Lab: [facility] [address] WBC 7.3 4.0-11.0 RBC 3.83 L 4.60-6.20 HGB 11.4 g/dL L 13.5-17.9 HCT 35.1 L 41.0-54.0 MCV 91.6 fL 80.0-100.0 MCH 29.8 pg 27.0-33.0 MCHC 32.5 g/dL 32.0-37.5 PLT 193 150-400 MPV 10.7 fL 9.1-13.0 RDW 12.2 11.5-14.5 Jan 31, 2024 07:29 AM [facility] BASIC METABOLIC PANEL+MG Specimen Type: PLASMA No comment entered. Ordering Provider: BASHIR CARVAJAL Report Released Date/Time: Jan 30, 2024 01:03 PM Reporting Lab: [facility] [phone] Performing Lab: [facility] [address] CREATININE 1.3 mg/dL H 0.7-1.2 UREA NITROGEN 24 mg/dL 8-26 GLUCOSE 91 mg/dL 70-100 SODIUM 138 mmol/L 136-145 POTASSIUM 4.1 mmol/L 3.5-5.1 CHLORIDE 108 mmol/L H 98-107 CO2 23 mmol/L 22-29 CALCIUM 8.8 mg/dL 8.4-10.2 MAGNESIUM 2.1 mg/dL 1.6-2.6 ANION GAP 7 mmol/L 5-15 .CREAT EGFR(CKD-EPI) 54 L >60 Jan 30, 2024 10:37 AM [facility] POC ACT Specimen Type: BLOOD No comment entered. Ordering Provider: RODO CHRISTY Report Released Date/Time: Jan 30, 2024 10:43 AM Reporting Lab: [facility] [phone] Performing Lab: [facility] [address] POC ACT 241 s H 84-139 Jan 30, 2024 10:08 AM [facility] POC ACT Specimen Type: BLOOD No comment entered. Ordering Provider: RODO CHRISTY Report Released Date/Time: Jan 30, 2024 10:14 AM Reporting Lab: [facility] [address] Performing Lab: [facility] [address] POC ACT 289 s H 84-139 Jan 30, 2024 09:34 AM [facility] POC ACT Specimen Type: BLOOD No comment entered. Ordering Provider: RODO CHRISTY Report Released Date/Time: Jan 30, 2024 10:14 AM Reporting Lab: [facility] [phone] Performing Lab: [facility] [address] POC ACT 294 s H 84-139 Jan 30, 2024 05:37 AM [facility] HEPARIN APTT Specimen Type: PLASMA No comment entered. Ordering Provider: BASHIR CARVAJAL Report Released Date/Time: Jan 29, 2024 09:43 PM Reporting Lab: [facility] [address] Performing Lab: [facility] [address] HEPARIN APTT 83.2 s 48.0-92.0 Jan 30, 2024 05:37 AM [facility] BASIC METABOLIC PANEL+MG Specimen Type: PLASMA No comment entered. Ordering Provider: BASHIR CARVAJAL Report Released Date/Time: Jan 29, 2024 12:19 PM Reporting Lab: [facility] [phone] Performing Lab: [facility] [address] CREATININE 1.4 mg/dL H 0.7-1.2 UREA NITROGEN 27 mg/dL H 8-26 GLUCOSE 95 mg/dL 70-100 SODIUM 139 mmol/L 136-145 POTASSIUM 4.2 mmol/L 3.5-5.1 CHLORIDE 109 mmol/L H 98-107 CO2 24 mmol/L 22-29 CALCIUM 9.0 mg/dL 8.4-10.2 MAGNESIUM 2.1 mg/dL 1.6-2.6 ANION GAP 6 mmol/L 5-15 .CREAT EGFR(CKD-EPI) 49 L >60 Jan 29, 2024 09:02 PM [facility] HEPARIN APTT Specimen Type: PLASMA Comment: Critical Value Reported To: Tomasa Delcid PharmD 01/29/24 @[address] [place] [address]. Critical value report confirmed. Ordering Provider: MERY SAMUEL Report Released Date/Time: Jan 29, 2024 03:00 PM Reporting Lab: [facility] [phone] Performing Lab: [facility] [address] HEPARIN APTT 214.6 s HH 48.0-92.0 Jan 29, 2024 06:24 AM [facility] BASIC METABOLIC PANEL+MG Specimen Type: PLASMA No comment entered. Ordering Provider: BASHIR CARVAJAL Report Released Date/Time: Jan 28, 2024 04:36 PM Reporting Lab: [facility] [phone] Performing Lab: [facility] [address] CREATININE 1.6 mg/dL H 0.7-1.2 UREA NITROGEN 27 mg/dL H 8-26 GLUCOSE 92 mg/dL 70-100 SODIUM 140 mmol/L 136-145 POTASSIUM 4.2 mmol/L 3.5-5.1 CHLORIDE 110 mmol/L H 98-107 CO2 25 mmol/L 22-29 CALCIUM 8.8 mg/dL 8.4-10.2 MAGNESIUM 2.1 mg/dL 1.6-2.6 ANION GAP 5 mmol/L 5-15 .CREAT EGFR(CKD-EPI) 42 L >60 Jan 28, 2024 05:54 AM [facility] EXTRA PURPLE TUBE Specimen Type: BLOOD No comment entered. Ordering Provider: RODO CHRISTY Report Released Date/Time: Jan 28, 2024 05:54 AM Reporting Lab: [facility] [phone] Performing Lab: [facility] [phone] EXTRA PURPLE TUBE RECEIVED Jan 28, 2024 05:53 AM [facility] ALBUMIN Specimen Type: PLASMA No comment entered. Ordering Provider: BASHIR CARVAJAL Report Released Date/Time: Jan 27, 2024 04:49 PM Reporting Lab: [facility] [address] Performing Lab: [facility] [address] ALBUMIN 3.5 g/dL 3.5-5.2 Jan 28, 2024 05:53 AM [facility] BASIC METABOLIC PANEL+MG Specimen Type: PLASMA No comment entered. Ordering Provider: BASHIR CARVAJAL Report Released Date/Time: Jan 27, 2024 05:44 PM Reporting Lab: [facility] [address] Performing Lab: [facility] [address] CREATININE 1.4 mg/dL H 0.7-1.2 UREA NITROGEN 28 mg/dL H 8-26 GLUCOSE 92 mg/dL 70-100 SODIUM 140 mmol/L 136-145 POTASSIUM 4.4 mmol/L 3.5-5.1 CHLORIDE 109 mmol/L H 98-107 CO2 23 mmol/L 22-29 CALCIUM 8.8 mg/dL 8.4-10.2 MAGNESIUM 2.1 mg/dL 1.6-2.6 ANION GAP 8 mmol/L 5-15 .CREAT EGFR(CKD-EPI) 49 L >60 Jan 28, 2024 05:52 AM [facility] TROPONIN I, HS Specimen Type: PLASMA Comment: Critical value previously reported on patient. Ordering Provider: BRANDON MEJIA Report Released Date/Time: Jan 27, 2024 09:15 PM Reporting Lab: [facility] [address] Performing Lab: [facility] [address] TROPONIN I, HS 128 HH <35 Jan 28, 2024 12:35 AM [facility] COVID-19 DIAGNOSTIC PANEL (CEPHEID) Specimen Type: NASOPHARYNGEAL Comment: Cepheid GeneXpert (618) Ordering Provider: LUCAS HAWTHORNE Report Released Date/Time: Jan 27, 2024 04:28 PM Reporting Lab: [facility] [address] Performing Lab: [facility] [address] COVID-19 (CEPHEID) Not Detected Not Detected Jan 28, 2024 12:35 AM [facility] HEPARIN APTT Specimen Type: PLASMA Comment: Critical Value Reported To: Deena Oliveros PharmD 01/28/24 @0110 HV. Critical value report confirmed. Ordering Provider: NATALIE ORDOÑEZ Report Released Date/Time: Jan 27, 2024 07:18 PM Reporting Lab: [facility] [address] Performing Lab: [facility] [address] HEPARIN APTT 133.9 s HH 48.0-92.0 Jan 28, 2024 12:35 AM [facility] TROPONIN I, HS Specimen Type: PLASMA Comment: Critical value previously reported on patient. Ordering Provider: BRANDON MEJIA Report Released Date/Time: Jan 27, 2024 09:15 PM Reporting Lab: [facility] [address] Performing Lab: [facility] [address] TROPONIN I, HS 158 HH <35 Jan 27, 2024 09:22 PM [facility] TROPONIN I, HS Specimen Type: PLASMA Comment: Critical value previously reported on patient. Ordering Provider: BASHIR CARVAJAL Report Released Date/Time: Jan 27, 2024 08:38 PM Reporting Lab: [facility] [address] Performing Lab: [facility] [address] TROPONIN I, HS 146 HH <35 Jan 27, 2024 06:52 PM [facility] TROPONIN I, HS Specimen Type: PLASMA Comment: Critical Value Reported To: Brandon Mejia MD 01/27/24 @[address] [place] [address]. Critical value report confirmed. Ordering Provider: BASHIR CARVAJAL Report Released Date/Time: Jan 27, 2024 04:54 PM Reporting Lab: [facility] [address] Performing Lab: [facility] [address] TROPONIN I, HS 136 HH <35 Jan 27, 2024 06:52 PM [facility] BASIC METABOLIC PANEL+MG Specimen Type: PLASMA No comment entered. Ordering Provider: BASHIR CARVAJAL Report Released Date/Time: Jan 27, 2024 04:54 PM Reporting Lab: [facility] [address] Performing Lab: [facility] [address] CREATININE 1.3 mg/dL H 0.7-1.2 UREA NITROGEN 30 mg/dL H 8-26 GLUCOSE 141 mg/dL H 70-100 SODIUM 142 mmol/L 136-145 POTASSIUM 3.4 mmol/L L 3.5-5.1 CHLORIDE 106 mmol/L 98-107 CO2 27 mmol/L 22-29 CALCIUM 8.8 mg/dL 8.4-10.2 MAGNESIUM 2.2 mg/dL 1.6-2.6 ANION GAP 9 mmol/L 5-15 .CREAT EGFR(CKD-EPI) 54 L >60 Jan 27, 2024 06:52 PM [facility] CBC Specimen Type: BLOOD No comment entered. Ordering Provider: BASHIR CARVAJAL Report Released Date/Time: Jan 27, 2024 04:54 PM Reporting Lab: [facility] [address] Performing Lab: [facility] [address] WBC 6.0 4.0-11.0 RBC 3.91 L 4.60-6.20 [...] 14, 2023 11:30 AM VA-TOBACCO FORMER USER [facility] Tobacco Use History This section includes a history of the smoking, or tobacco-related health factors, that were collected on or before the date of the Encounter. The data comes from the [place] facility where the Encounter took place. Date/Time Smoking Status/Tobacco Use Comment F acility Dec 14, 2023 11:30 AM VA-TOBACCO QUIT 15 YRS OR MORE [facility] Oct 13, 2022 01:30 PM VA-TOBACCO FORMER USER [facility] Oct 13, 2022 01:30 PM VA-TOBACCO QUIT 15 YRS OR MORE [facility] Jul 27, 2021 10:00 AM VA-TOBACCO FORMER USER [facility] Jul 27, 2021 10:00 AM VA-TOBACCO QUIT 15 YRS OR MORE [facility] Jan 02, 2020 09:00 AM VA-TOBACCO FORMER USER [facility] Jan 02, 2020 09:00 AM VA-TOBACCO QUIT 15 YRS OR MORE [facility] Jul 21, 2018 03:00 PM VA-TOBACCO FORMER USER [facility] Jul 21, 2018 03:00 PM VA-TOBACCO QUIT 15 YRS OR MORE [facility] Dec 24, 2016 08:01 AM FORMER TOBACCO USER 7Y OR GREATE R [facility] Dec 23, 2015 08:23 AM FORMER TOBACCO USE >1Y <7Y [facility] Dec 26, 2014 10:32 AM FORMER TOBACCO USER 7Y OR GREATE R [facility] August 13, 2013 08:22 AM LIFETIME NON-TOBACCO USER [facility] August 30, 2006 08:38 AM FORMER TOBACCO USER 7Y OR GREATE R [facility] Advance Directives: All historical and current Section Date Range: From patient's date of to the date document was created. This section includes ALL of a patient's completed or amended [place] Advance and Rescinded Directives. The entries below indicate that a directive exists for the patient, but an actual copy is not included with this document. The data comes from all [place] facilities. Date Advance Directives Provider Source August 30, 2006 ADVANCE DIRECTIVE ARGEN[facility] Pathology Reports: +/- 30 days of [...] the Encounter. The data comes from all [place] treatment facilities. Date/Time Pathology Report Provider Source Jan 06, 2024 11:16 AM LR SURGICAL PATHOL OGY REPORT: LOCAL TITLE: LR SURGICAL PATHOLOGY REPORT STANDARD TITLE: PATHOLOGY REPORT DATE OF NOTE: JAN 06, 2024@11:16:39 ENTRY DATE: JAN 06, 2024@11:16:39 AUTHOR: JOSE REESE COSIGNER: URGENCY: STATUS: COMPLETED $APHDR Reporting Lab: [facility] [CLIA# [id number]] [place] [address] - - - - - - - [...] - PATHOLOGY REPORT Accession No. [id number] - - - - - - - [...] - PATHOLOGY REPORT Accession No. [id number] - - - - - - - [...] cm. The specimen is inked. CE. (D[facility] MICROSCOPIC DESCRIPTION: Microscopic examination performed. CI. 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 STAFF PATHOLOGIST Signed Jan 06, 2024@11:16 Performing Laboratory: Surgical Pathology Report Performed By: [facility] [CLIA# [id number]] [place] [address] $FTR - - - - - - - - - - - - - - - - - - - - - - - - - - - - - - - - - - - - - - - - (End of report) JOSE REESE MD [facility] Date Jan 06, 2024 - - - - - - - - - - - - - - - - - - - - - - - - - - - - - - - - - - - - - - - - MADYSON,GERI NUNEZ STANDARD FORM 515 ID:[id number] SEX:M :[id number] AGE: [id number] LOC:[id number] PCP: Sariah Gomes MD /shelly/ JOSE REESE M.D. STAFF PATHOLOGIST Signed: 01/06/2024 11:16 JOSE REESE [facility] Encounter Notes: All associated encounter notes This section contains the clinical notes associated to the Encounter. Date/Time Encounter Note(s) Provider Source Jan 31, 2024 01:00 AM CRITICAL CARE UNIT NOTE: LOCAL TITLE: ICCA INPATIENT FLOWSHEET STANDARD TITLE: CRITICAL CARE UNIT NOTE DATE OF NOTE: JAN 31, 2024@01:00 ENTRY DATE: FEB 01, 2024@14:43 AUTHOR: SPARKLEArimaz-ARK EXP COSIGNER: URGENCY: STATUS: COMPLETED This is a place barron only. Please see [employer] to view document. /es/ [facility] ICU DOCUMENT IMPORT Signed: 02/01/2024 14:43 SYSTEM,Arimaz-ARK [facility] Jan 31, 2024 01:00 AM CRITICAL CARE UNIT NOTE: LOCAL TITLE: ICCA RESPIRATORY THERAPY FLOWSHEET STANDARD TITLE: CRITICAL CARE UNIT NOTE DATE OF NOTE: JAN 31, 2024@01:00 ENTRY DATE: FEB 01, 2024@15:16:54 AUTHOR: SYSTEMArimaz-ARK EXP COSIGNER: URGENCY: STATUS: COMPLETED This is a place barron only. Please see [facility] to view document. /es/ [facility] SYSTEM ICU DOCUMENT IMPORT Signed: 02/01/2024 15:16 SYSTEM,CIS-ARK [facility]
--- OUTSIDE RECORDS SUMMARY | 2024-02-10 23:38 | XMS_ITS | Encounter Summary ---
Author Name [facility] Organization [facility] Address [address] [place] [id number] Care Team Providers Care Rn Correctional Name Role Phone SARIAH GOMES Primary Care [...] PART A Sep 09, 2002 PART A [id number] JOAQUIN COUGHLIN S PATIENT MEDICARE (WNR) MEDICARE (M) PART B Sep 09, 2002 PART B [id number] NULL,JOAQUIN S PATIENT MEDICARE (WNR) MEDICARE (M) PART A Sep 09, 2002 PART A [id number] JOAQUIN COUGHLIN S PATIENT MEDICARE (WNR) MEDICARE (M) PART B Sep 09, 2002 PART B [id number] JOAQUIN COUGHLIN S PATIENT Selected Encounter This section includes the information on record at NH for the Encounter. Date/Time Encounter Type Encounter Description Reason Pro vider Source Feb 03, 2024 07:34 PM Outpatient Encounter ADMIN PAT ACTIVTIES (MASNONCT) IHE Encounter Template Text not used by NH Plan of Treatment: Future Appointments (+ 6 months) and Future Tests (+/- 45 days) The Plan of Treatment section includes future care activities for the [facility] This section includes future appointments and future orders which are active, pending or scheduled. Future Appointments This section includes appointments that were scheduled to occur 6 months from the date of the Encounter, up to a maximum of 20 appointments. The data comes from all [facility]. Appointment Date/Time Appointment Type Appointme nt Facility Name Feb 21, 2024 10:00 AM AMBULATORY - MEDICINE [facility] Feb 24, 2024 12:15 PM AMBULATORY - MEDICINE [facility] Feb 24, 2024 01:00 PM AMBULATORY - MEDICINE [facility] Mar 02, 2024 01:00 PM AMBULATORY - REHAB MEDICIN E [facility] Jul 31, 2024 09:20 AM AMBULATORY - SURGERY [facility] Active, Pending, and Scheduled Orders This section includes a listing of several types of active, pending, and scheduled orders, including clinic medications orders, diagnostic test orders, procedure orders and consult orders; where the start date of the order is 45 days before the date of the Encounter or 45 days after the date of theEncounter. The data comes from all [facility]. Test Date/Time Test Type Test Details Facility Name Jan 18, 2024 04:23 PM Consult Order COMMUNITY CARE-ECHOCARDIOGRAPHY [facility] [employer] Jan 19, 2024 12:10 PM Consult Order COMMUNITY CARE-DERMATOLOGY [facility] Jan 28, 2024 02:00 AM Laboratory - Chemistry Order TROPONIN I, HS PLASMA STAT WC [facility] Jan 31, 2024 09:30 AM Consult Order CARDIAC REHAB OUTPT Cons Bedside [facility] Jan 31, 2024 10:13 AM Consult Order CARDIOLOGY INTERVENTIONAL CLINIC OUTPT Cons [employer] [facility] Lab Results: +/- 30 days [...] Range Comment Jan 31, 2024 10:50 AM [facility] HEMOGLOBIN A1C Specimen Type: BLOOD [...] Jan 31, 2024 10:13 AM Reporting Lab: [facility] [phone] Performing Lab: [facility] [phone] HEMOGLOBIN A1C 5.4 4.0-6.0 Jan 31, 2024 10:50 AM [facility] LIPID PANEL,FASTING Specimen Type: PLASMA No comment entered. Ordering Provider: JULIET SMART Report Released Date/Time: Jan 31, 2024 10:13 AM Reporting Lab: [facility] [phone] Performing Lab: [facility] [address] CHOLESTEROL 125 mg/dL <199 TRIGLYCERIDE 95 mg/dL <149 .HDL 37 mg/dL L >40 LDL CALCULATION 69 mg/dL <99 VLDL CALCULATION 19 mg/dL <29 NON HDL CHOLESTEROL 88 mg/dL <129 Jan 31, 2024 07:29 AM [facility] CBC Specimen Type: BLOOD No comment entered. Ordering Provider: BASHIR CARVAJAL Report Released Date/Time: Jan 30, 2024 01:03 PM Reporting Lab: [facility] [phone] Performing Lab: [facility] [phone] WBC 7.3 4.0-11.0 RBC 3.83 L 4.60-6.20 HGB 11.4 g/dL L 13.5-17.9 HCT 35.1 L 41.0-54.0 MCV 91.6 fL 80.0-100.0 MCH 29.8 pg 27.0-33.0 MCHC 32.5 g/dL 32.0-37.5 PLT 193 150-400 MPV 10.7 fL 9.1-13.0 RDW 12.2 11.5-14.5 Jan 31, 2024 07:29 AM [facility] BASIC METABOLIC PANEL+MG Specimen Type: PLASMA No comment entered. Ordering Provider: BASHIR CARVAJAL Report Released Date/Time: Jan 30, 2024 01:03 PM Reporting Lab: [facility] [phone] Performing Lab: [facility] [phone] CREATININE 1.3 mg/dL H 0.7-1.2 UREA NITROGEN 24 mg/dL 8-26 GLUCOSE 91 mg/dL 70-100 SODIUM 138 mmol/L 136-145 POTASSIUM 4.1 mmol/L 3.5-5.1 CHLORIDE 108 mmol/L H 98-107 CO2 23 mmol/L 22-29 CALCIUM 8.8 mg/dL 8.4-10.2 MAGNESIUM 2.1 mg/dL 1.6-2.6 ANION GAP 7 mmol/L 5-15 .CREAT EGFR(CKD-EPI) 54 L >60 Jan 30, 2024 10:37 AM [facility] POC ACT Specimen Type: BLOOD No comment entered. Ordering Provider: RODO CHRISTY Report Released Date/Time: Jan 30, 2024 10:43 AM Reporting Lab: [facility] [phone] Performing Lab: [facility] [address] POC ACT 241 s H 84-139 Jan 30, 2024 10:08 AM [facility] POC ACT Specimen Type: BLOOD No comment entered. Ordering Provider: RODO CHRISTY Report Released Date/Time: Jan 30, 2024 10:14 AM Reporting Lab: [facility] [phone] Performing Lab: [facility] [address] POC ACT 289 s H 84-139 Jan 30, 2024 09:34 AM [facility] POC ACT Specimen Type: BLOOD No comment entered. Ordering Provider: RODO CHRISTY Report Released Date/Time: Jan 30, 2024 10:14 AM Reporting Lab: [facility] [phone] Performing Lab: [facility] [address] POC ACT 294 s H 84-139 Jan 30, 2024 05:37 AM [facility] HEPARIN APTT Specimen Type: PLASMA No comment entered. Ordering Provider: BASHIR CARVAJAL Report Released Date/Time: Jan 29, 2024 09:43 PM Reporting Lab: [facility] [phone] Performing Lab: [facility] [phone] HEPARIN APTT 83.2 s 48.0-92.0 Jan 30, 2024 05:37 AM [facility] BASIC METABOLIC PANEL+MG Specimen Type: PLASMA No comment entered. Ordering Provider: BASHIR CARVAJAL Report Released Date/Time: Jan 29, 2024 12:19 PM Reporting Lab: [facility] [phone] Performing Lab: [facility] [address] CREATININE 1.4 mg/dL H 0.7-1.2 UREA NITROGEN 27 mg/dL H 8-26 GLUCOSE 95 mg/dL 70-100 SODIUM 139 mmol/L 136-145 POTASSIUM 4.2 mmol/L 3.5-5.1 CHLORIDE 109 mmol/L H 98-107 CO2 24 mmol/L 22-29 CALCIUM 9.0 mg/dL 8.4-10.2 MAGNESIUM 2.1 mg/dL 1.6-2.6 ANION GAP 6 mmol/L 5-15 .CREAT EGFR(CKD-EPI) 49 L >60 Jan 29, 2024 09:02 PM [facility] HEPARIN APTT Specimen Type: PLASMA Comment: Critical Value Reported To: Tomasa Delcid PharmD 01/29/24 @784[facility]. Critical value report confirmed. Ordering Provider: MERY SAMUEL Report Released Date/Time: Jan 29, 2024 03:00 PM Reporting Lab: [facility] [phone] Performing Lab: [facility] [phone] HEPARIN APTT 214.6 s HH 48.0-92.0 Jan 29, 2024 06:24 AM [facility] BASIC METABOLIC PANEL+MG Specimen Type: PLASMA No comment entered. Ordering Provider: BASHIR CARVAJAL Report Released Date/Time: Jan 28, 2024 04:36 PM Reporting Lab: [facility] [phone] Performing Lab: [facility] [address] CREATININE 1.6 mg/dL H 0.7-1.2 UREA NITROGEN 27 mg/dL H 8-26 GLUCOSE 92 mg/dL 70-100 SODIUM 140 mmol/L 136-145 POTASSIUM 4.2 mmol/L 3.5-5.1 CHLORIDE 110 mmol/L H 98-107 CO2 25 mmol/L 22-29 CALCIUM 8.8 mg/dL 8.4-10.2 MAGNESIUM 2.1 mg/dL 1.6-2.6 ANION GAP 5 mmol/L 5-15 .CREAT EGFR(CKD-EPI) 42 L >60 Jan 28, 2024 05:54 AM [facility] EXTRA PURPLE TUBE Specimen Type: BLOOD No comment entered. Ordering Provider: RODO CHRISTY Report Released Date/Time: Jan 28, 2024 05:54 AM Reporting Lab: [facility] [phone] Performing Lab: [facility] [id number] EXTRA PURPLE TUBE RECEIVED Jan 28, 2024 05:53 AM [facility] ALBUMIN Specimen Type: PLASMA No comment entered. Ordering Provider: BASHIR CARVAJAL Report Released Date/Time: Jan 27, 2024 04:49 PM Reporting Lab: [facility] [id number] Performing Lab: [facility] [address] ALBUMIN 3.5 g/dL 3.5-5.2 Jan 28, 2024 05:53 AM [facility] BASIC METABOLIC PANEL+MG Specimen Type: PLASMA No comment entered. Ordering Provider: BASHIR CARVAJAL Report Released Date/Time: Jan 27, 2024 05:44 PM Reporting Lab: [facility] [phone] Performing Lab: [facility] [phone] CREATININE 1.4 mg/dL H 0.7-1.2 UREA NITROGEN 28 mg/dL H 8-26 GLUCOSE 92 mg/dL 70-100 SODIUM 140 mmol/L 136-145 POTASSIUM 4.4 mmol/L 3.5-5.1 CHLORIDE 109 mmol/L H 98-107 CO2 23 mmol/L 22-29 CALCIUM 8.8 mg/dL 8.4-10.2 MAGNESIUM 2.1 mg/dL 1.6-2.6 ANION GAP 8 mmol/L 5-15 .CREAT EGFR(CKD-EPI) 49 L >60 Jan 28, 2024 05:52 AM [facility] TROPONIN I, HS Specimen Type: PLASMA Comment: Critical value previously reported on patient. Ordering Provider: BRANDON MEJIA Report Released Date/Time: Jan 27, 2024 09:15 PM Reporting Lab: [facility] [phone] Performing Lab: [facility] [phone] TROPONIN I, HS 128 HH <35 Jan 28, 2024 12:35 AM [facility] COVID-19 DIAGNOSTIC PANEL (CEPHEID) Specimen Type: NASOPHARYNGEAL Comment: Cepheid GeneXpert (618) Ordering Provider: LUCAS HAWTHORNE Report Released Date/Time: Jan 27, 2024 04:28 PM Reporting Lab: [facility] [phone] Performing Lab: [facility] [address] COVID-19 (CEPHEID) Not Detected Not Detected Jan 28, 2024 12:35 AM [facility] TROPONIN I, HS Specimen Type: PLASMA Comment: Critical value previously reported on patient. Ordering Provider: BRANDON MEJIA Report Released Date/Time: Jan 27, 2024 09:15 PM Reporting Lab: [facility] [phone] Performing Lab: [facility] [phone] TROPONIN I, HS 158 HH <35 Jan 28, 2024 12:35 AM [facility] HEPARIN APTT Specimen Type: PLASMA Comment: Critical Value Reported To: Deena Oliveros PharmD 01/28/24 @0110 HV. Critical value report confirmed. Ordering Provider: NATALIE ORDOÑEZ Report Released Date/Time: Jan 27, 2024 07:18 PM Reporting Lab: [facility] [phone] Performing Lab: [facility] [address] HEPARIN APTT 133.9 s HH 48.0-92.0 Jan 27, 2024 09:22 PM [facility] TROPONIN I, HS Specimen Type: PLASMA Comment: Critical value previously reported on patient. Ordering Provider: BASHIR CARVAJAL Report Released Date/Time: Jan 27, 2024 08:38 PM Reporting Lab: [facility] [phone] Performing Lab: [facility] [address] TROPONIN I, HS 146 HH <35 Jan 27, 2024 06:52 PM [facility] TROPONIN I, HS Specimen Type: PLASMA Comment: Critical Value Reported To: Brandon Mejia MD 01/27/24 @1950 K[facility]. Critical value report confirmed. Ordering Provider: BASHIR CARVAJAL Report Released Date/Time: Jan 27, 2024 04:54 PM Reporting Lab: [facility] [id number] Performing Lab: [facility] [address] TROPONIN I, HS 136 HH <35 Jan 27, 2024 06:52 PM [facility] BASIC METABOLIC PANEL+MG Specimen Type: PLASMA No comment entered. Ordering Provider: BASHIR CARVAJAL Report Released Date/Time: Jan 27, 2024 04:54 PM Reporting Lab: [facility] [address] Performing Lab: [facility] [address] CREATININE 1.3 mg/dL H 0.7-1.2 UREA NITROGEN 30 mg/dL H 8-26 GLUCOSE 141 mg/dL H 70-100 SODIUM 142 mmol/L 136-145 POTASSIUM 3.4 mmol/L L 3.5-5.1 CHLORIDE 106 mmol/L 98-107 CO2 27 mmol/L 22-29 CALCIUM 8.8 mg/dL 8.4-10.2 MAGNESIUM 2.2 mg/dL 1.6-2.6 ANION GAP 9 mmol/L 5-15 .CREAT EGFR(CKD-EPI) 54 L >60 Jan 27, 2024 06:52 PM [facility] CBC Specimen Type: BLOOD No comment entered. Ordering Provider: BASHIR CARVAJAL Report Released Date/Time: Jan 27, 2024 04:54 PM Reporting Lab: [facility] [address] Performing Lab: [facility] [phone] WBC 6.0 4.0-11.0 RBC 3.91 L 4.60-6.20 [...] 14, 2023 11:30 AM VA-TOBACCO FORMER USER [facility] Tobacco Use History This section includes a history of the smoking, or tobacco-related health factors, that were collected on or before the date of the Encounter. The data comes from the [place] facility where the Encounter took place. Date/Time Smoking Status/Tobacco Use Comment F acility Dec 14, 2023 11:30 AM VA-TOBACCO QUIT 15 YRS OR MORE [facility] Oct 13, 2022 01:30 PM VA-TOBACCO FORMER USER [facility] Oct 13, 2022 01:30 PM VA-TOBACCO QUIT 15 YRS OR MORE [facility] Jul 27, 2021 10:00 AM VA-TOBACCO FORMER USER [facility] Jul 27, 2021 10:00 AM VA-TOBACCO QUIT 15 YRS OR MORE [facility] Jan 02, 2020 09:00 AM VA-TOBACCO FORMER USER [facility] Jan 02, 2020 09:00 AM VA-TOBACCO QUIT 15 YRS OR MORE [facility] Jul 21, 2018 03:00 PM VA-TOBACCO FORMER USER [facility] Jul 21, 2018 03:00 PM VA-TOBACCO QUIT 15 YRS OR MORE [facility] Dec 24, 2016 08:01 AM FORMER TOBACCO USER 7Y OR GREATE R [facility] Dec 23, 2015 08:23 AM FORMER TOBACCO USE >1Y <7Y [facility] Dec 26, 2014 10:32 AM FORMER TOBACCO USER 7Y OR GREATE R [facility] August 13, 2013 08:22 AM LIFETIME NON-TOBACCO USER [facility] August 30, 2006 08:38 AM FORMER TOBACCO USER 7Y OR GREATE R [facility] Advance Directives: All historical and [...] from all [facility]. Date Advance Directives Provider Source August 30, 2006 ADVANCE DIRECTIVE ARGENIS CRAMER [facility] Pathology Reports: +/- 30 days [...] COSIGNER: URGENCY: STATUS: COMPLETED $APHDR Reporting Lab: [facility] [CLIA# [id number]] [place] [address] - - - - - - - [...] - PATHOLOGY REPORT Accession No. [id number] - - - - - - - [...] - PATHOLOGY REPORT Accession No. [id number] - - - - - - - [...] 0.1 cm. The specimen is inked. CE. (D)[facility] MICROSCOPIC DESCRIPTION: Microscopic examination performed. CI. 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 STAFF PATHOLOGIST Signed Jan 06, 2024@11:16 Performing Laboratory: Surgical Pathology Report Performed By: [facility] [CLIA# [id number]] [place] [address] $FTR - - - - - - - - - - - - - - - - - - - - - - - - - - - - - - - - - - - - - - - - (End of report) JOSE REESE MD [facility] Date Jan 06, 2024 - - - - - - - - - - - - - - - - - - - - - - - - - - - - - - - - - - - - - - - - MADYSON,GERI NUNEZ STANDARD FORM 515 ID:[id number] SEX:M :[id number] AGE: 88 LOC:[id number] PCP: Sariah Gomes MD /shelly/ JOSE REESE M.D. STAFF PATHOLOGIST Signed: 01/06/2024 11:16 JOSE REESE [facility] Encounter Notes: All associated encounter notes This section contains the clinical notes associated to the Encounter. Date/Time Encounter Note(s) Provider Source Jan 31, 2024 07:34 PM SCANNED REPORT: LOCAL TITLE: TELEMETRY RHYTHM STRIPS STANDARD TITLE: SCANNED REPORT DATE OF NOTE: JAN 31, 2024@19:34 ENTRY DATE: FEB 03, 2024@19:35:03 AUTHOR: BRIGID CHILDS EXP COSIGNER: URGENCY: STATUS: COMPLETED [facility]. /shelly/ BRIGID Easley Signed: 02/03/2024 19:35 BRIGID CHILDS [facility]
--- OUTSIDE RECORDS SUMMARY | 2024-02-10 23:38 | XMS_ITS | Encounter Summary ---
Author Name [facility] [facility] [place] Address [address] [place] [address] Care Team Providers Care [place] Filler Name Role Phone JACKELYN GOMES Primary Care Provider Royal greene Insurance [...] PART A Sep 09, 2002 PART A [id number] JOAQUIN COUGHLIN S PATIENT MEDICARE (WNR) MEDICARE (M) PART B Sep 09, 2002 PART B [id number] JOAQUIN COUGHLIN S PATIENT MEDICARE (WNR) MEDICARE (M) PART A Sep 09, 2002 PART A [id number] NULLJOAQUIN S PATIENT MEDICARE (WNR) MEDICARE (M) PART B Sep 09, 2002 PART B [id number] JOAQUIN COUGHLIN S PATIENT Selected Encounter This section includes the information on record at [place] for the Encounter. Date/Time Encounter Type Encounter Description Reason Pro vider Source Feb 06, 2024 10:36 AM Outpatient Encounter EVENT (HISTORICAL) IHE Encounter Template Text not used by [place] Plan of Treatment: Future Appointments (+ 6 months) and Future Tests (+/- 45 days) The Plan of Treatment section includes future care activities for the [facility] [place] [facility] This section includes future appointments and future orders which are active, pending or scheduled. Future Appointments This section includes appointments that were scheduled to occur 6 months from the date of the Encounter, up to a maximum of 20 appointments. The data comes from all [facility]. Appointment Date/Time Appointment Type Appointme nt Facility Name Feb 21, 2024 10:00 AM AMBULATORY - MEDICINE [facility] Feb 24, 2024 12:15 PM AMBULATORY - MEDICINE [facility] Feb 24, 2024 01:00 PM AMBULATORY MEDICINE [facility] Mar 02, 2024 01:00 PM AMBULATORY - REHAB MEDICIN E [facility] Jul 31, 2024 09:20 AM AMBULATORY - SURGERY [facility] Active, Pending, and Scheduled Orders This section includes a listing of several types of active, pending, and scheduled orders, including clinic medications orders, diagnostic test orders, procedure orders and consult orders; where the start date of the order is 45 days before the date of the Encounter or 45 days after the date of theEncounter. The data comes from all [facility]. Test Date/Time Test Type Test Details Facility Name Jan 18, 2024 04:23 PM Consult Order COMMUNITY CARE-ECHOCARDIOGRAPHY Cons [facility] Jan 19, 2024 12:10 PM Consult Order COMMUNITY CARE-DERMATOLOGY Cons [facility] Jan 28, 2024 02:00 AM Laboratory - Chemistry Order TROPONIN I, HS PLASMA STAT WC [facility] Jan 31, 2024 09:30 AM Consult Order CARDIAC REHAB OUTPT Cons Bedside [facility] Jan 31, 2024 10:13 AM Consult Order CARDIOLOGY INTERVENTIONAL CLINIC OUTPT Cons [facility] Lab Results: +/- 30 days of the encounter This section includes the Chemistry and Hematology Lab Results on record with [place] for the patient. Radiology Reports and Pathology Reports are provided separately, in subsequent sections. Lab Results This section contains the Chemistry/Hematology Results that were resulted 30 days before or 30 daysafter the date of the Encounter. Date/Time Source Result Type Result - Unit Interpretation Reference Range Comment Jan 31, 2024 10:50 AM [facility] HEMOGLOBIN A1C Specimen [...] Jan 31, 2024 10:13 AM Reporting Lab: [facility] [phone] Performing Lab: [facility] [phone] HEMOGLOBIN A1C 5.4 4.0-6.0 Jan 31, 2024 10:50 AM [facility] LIPID PANEL,FASTING Specimen Type: PLASMA No comment entered. Ordering Provider: JULIET SMART Report Released Date/Time: Jan 31, 2024 10:13 AM Reporting Lab: [facility] [phone] Performing Lab: [facility] [phone] CHOLESTEROL 125 mg/dL <199 TRIGLYCERIDE 95 mg/dL <149 .HDL 37 mg/dL L >40 LDL CALCULATION 69 mg/dL <99 VLDL CALCULATION 19 mg/dL <29 NON HDL CHOLESTEROL 88 mg/dL <129 Jan 31, 2024 07:29 AM [facility] CBC Specimen Type: BLOOD No comment entered. Ordering Provider: BASHIR CARVAJAL Report Released Date/Time: Jan 30, 2024 01:03 PM Reporting Lab: [facility] [phone] Performing Lab: [facility] [phone] WBC 7.3 4.0-11.0 RBC 3.83 L 4.60-6.20 HGB 11.4 g/dL L 13.5-17.9 HCT 35.1 L 41.0-54.0 MCV 91.6 fL 80.0-100.0 MCH 29.8 pg 27.0-33.0 MCHC 32.5 g/dL 32.0-37.5 PLT 193 150-400 MPV 10.7 fL 9.1-13.0 RDW 12.2 11.5-14.5 Jan 31, 2024 07:29 AM [facility] BASIC METABOLIC PANEL+MG Specimen Type: PLASMA No comment entered. Ordering Provider: BASHIR CARVAJAL Report Released Date/Time: Jan 30, 2024 01:03 PM Reporting Lab: [facility] [phone] Performing Lab: [facility] [phone] CREATININE 1.3 mg/dL H 0.7-1.2 UREA NITROGEN 24 mg/dL 8-26 GLUCOSE 91 mg/dL 70-100 SODIUM 138 mmol/L 136-145 POTASSIUM 4.1 mmol/L 3.5-5.1 CHLORIDE 108 mmol/L H 98-107 CO2 23 mmol/L 22-29 CALCIUM 8.8 mg/dL 8.4-10.2 MAGNESIUM 2.1 mg/dL 1.6-2.6 ANION GAP 7 mmol/L 5-15 .CREAT EGFR(CKD-EPI) 54 L >60 Jan 30, 2024 10:37 AM [facility] POC ACT Specimen Type: BLOOD No comment entered. Ordering Provider: RODO CHRISTY Report Released Date/Time: Jan 30, 2024 10:43 AM Reporting Lab: [facility] [phone] Performing Lab: [facility] [address] POC ACT 241 s H 84-139 Jan 30, 2024 10:08 AM [facility] POC ACT Specimen Type: BLOOD No comment entered. Ordering Provider: RODO CHRISTY Report Released Date/Time: Jan 30, 2024 10:14 AM Reporting Lab: [facility] [phone] Performing Lab: [facility] [phone] POC ACT 289 s H 84-139 Jan 30, 2024 09:34 AM [facility] POC ACT Specimen Type: BLOOD No comment entered. Ordering Provider: RODO CHRISTY Report Released Date/Time: Jan 30, 2024 10:14 AM Reporting Lab: [facility] [phone] Performing Lab: [facility] [address] POC ACT 294 s H 84-139 Jan 30, 2024 05:37 AM [facility] HEPARIN APTT Specimen Type: PLASMA No comment entered. Ordering Provider: BASHIR CARVAJAL Report Released Date/Time: Jan 29, 2024 09:43 PM Reporting Lab: [facility] [phone] Performing Lab: [facility] [phone] HEPARIN APTT 83.2 s 48.0-92.0 Jan 30, 2024 05:37 AM [facility] BASIC METABOLIC PANEL+MG Specimen Type: PLASMA No comment entered. Ordering Provider: BASHIR CARVAJAL Report Released Date/Time: Jan 29, 2024 12:19 PM Reporting Lab: [facility] [phone] Performing Lab: [facility] [phone] CREATININE 1.4 mg/dL H 0.7-1.2 UREA NITROGEN 27 mg/dL H 8-26 GLUCOSE 95 mg/dL 70-100 SODIUM 139 mmol/L 136-145 POTASSIUM 4.2 mmol/L 3.5-5.1 CHLORIDE 109 mmol/L H 98-107 CO2 24 mmol/L 22-29 CALCIUM 9.0 mg/dL 8.4-10.2 MAGNESIUM 2.1 mg/dL 1.6-2.6 ANION GAP 6 mmol/L 5-15 .CREAT EGFR(CKD-EPI) 49 L >60 Jan 29, 2024 09:02 PM [facility] HEPARIN APTT Specimen Type: PLASMA Comment: Critical Value Reported To: Tomasa Delcid PharmD 01/29/24 @[address] [place] [address]. Critical value report confirmed. Ordering Provider: MERY SAMUEL Report Released Date/Time: Jan 29, 2024 03:00 PM Reporting Lab: [facility] [phone] Performing Lab: [facility] [phone] HEPARIN APTT 214.6 s HH 48.0-92.0 Jan 29, 2024 06:24 AM [facility] BASIC METABOLIC PANEL+MG Specimen Type: PLASMA No comment entered. Ordering Provider: BASHIR CARVAJAL Report Released Date/Time: Jan 28, 2024 04:36 PM Reporting Lab: [facility] [phone] Performing Lab: [facility] [phone] CREATININE 1.6 mg/dL H 0.7-1.2 UREA NITROGEN 27 mg/dL H 8-26 GLUCOSE 92 mg/dL 70-100 SODIUM 140 mmol/L 136-145 POTASSIUM 4.2 mmol/L 3.5-5.1 CHLORIDE 110 mmol/L H 98-107 CO2 25 mmol/L 22-29 CALCIUM 8.8 mg/dL 8.4-10.2 MAGNESIUM 2.1 mg/dL 1.6-2.6 ANION GAP 5 mmol/L 5-15 .CREAT EGFR(CKD-EPI) 42 L >60 Jan 28, 2024 05:54 AM [facility] EXTRA PURPLE TUBE Specimen Type: BLOOD No comment entered. Ordering Provider: RODO CHRISTY Report Released Date/Time: Jan 28, 2024 05:54 AM Reporting Lab: [facility] [phone] Performing Lab: [facility] [phone] EXTRA PURPLE TUBE RECEIVED Jan 28, 2024 05:53 AM [facility] ALBUMIN Specimen Type: PLASMA No comment entered. Ordering Provider: BASHIR CARVAJAL Report Released Date/Time: Jan 27, 2024 04:49 PM Reporting Lab: [facility] [phone] Performing Lab: [facility] [address] ALBUMIN 3.5 g/dL 3.5-5.2 Jan 28, 2024 05:53 AM [facility] BASIC METABOLIC PANEL+MG Specimen Type: PLASMA No comment entered. Ordering Provider: BASHIR CARVAJAL Report Released Date/Time: Jan 27, 2024 05:44 PM Reporting Lab: [facility] [phone] Performing Lab: [facility] [phone] CREATININE 1.4 mg/dL H 0.7-1.2 UREA NITROGEN 28 mg/dL H 8-26 GLUCOSE 92 mg/dL 70-100 SODIUM 140 mmol/L 136-145 POTASSIUM 4.4 mmol/L 3.5-5.1 CHLORIDE 109 mmol/L H 98-107 CO2 23 mmol/L 22-29 CALCIUM 8.8 mg/dL 8.4-10.2 MAGNESIUM 2.1 mg/dL 1.6-2.6 ANION GAP 8 mmol/L 5-15 .CREAT EGFR(CKD-EPI) 49 L >60 Jan 28, 2024 05:52 AM [facility] TROPONIN I, HS Specimen Type: PLASMA Comment: Critical value previously reported on patient. Ordering Provider: BRANDON MEJIA Report Released Date/Time: Jan 27, 2024 09:15 PM Reporting Lab: [facility] [phone] Performing Lab: [facility] [phone] TROPONIN I, HS 128 HH <35 Jan 28, 2024 12:35 AM [facility] COVID-19 DIAGNOSTIC PANEL (CEPHEID) Specimen Type: NASOPHARYNGEAL Comment: Cepheid GeneXpert (618) Ordering Provider: LUCAS HAWTHORNE Report Released Date/Time: Jan 27, 2024 04:28 PM Reporting Lab: [facility] [phone] Performing Lab: [facility] [phone] COVID-19 (CEPHEID) Not Detected Not Detected Jan 28, 2024 12:35 AM [facility] HEPARIN APTT Specimen Type: PLASMA Comment: Critical Value Reported To: Deena Oliveros PharmD 01/28/24 @0110 HV. Critical value report confirmed. Ordering Provider: NATALIE ORDOÑEZ Report Released Date/Time: Jan 27, 2024 07:18 PM Reporting Lab: [facility] [phone] Performing Lab: [facility] [address] HEPARIN APTT 133.9 s HH 48.0-92.0 Jan 28, 2024 12:35 AM [facility] TROPONIN I, HS Specimen Type: PLASMA Comment: Critical value previously reported on patient. Ordering Provider: BRANDON MEJIA Report Released Date/Time: Jan 27, 2024 09:15 PM Reporting Lab: [facility] [phone] Performing Lab: [facility] [phone] TROPONIN I, HS 158 HH <35 Jan 27, 2024 09:22 PM [facility] TROPONIN I, HS Specimen Type: PLASMA Comment: Critical value previously reported on patient. Ordering Provider: BASHIR CARVAJAL Report Released Date/Time: Jan 27, 2024 08:38 PM Reporting Lab: [facility] [phone] Performing Lab: [facility] [phone] TROPONIN I, HS 146 HH <35 Jan 27, 2024 06:52 PM [facility] TROPONIN I, HS Specimen Type: PLASMA Comment: Critical Value Reported To: Brandon Mejia MD 01/27/24 @1950 KL. Critical value report confirmed. Ordering Provider: BASHIR CARVAJAL Report Released Date/Time: Jan 27, 2024 04:54 PM Reporting Lab: [facility] [phone] Performing Lab: [facility] [phone] TROPONIN I, HS 136 HH <35 Jan 27, 2024 06:52 PM [facility] BASIC METABOLIC PANEL+MG Specimen Type: PLASMA No comment entered. Ordering Provider: BASHIR CARVAJAL Report Released Date/Time: Jan 27, 2024 04:54 PM Reporting Lab: [facility] [phone] Performing Lab: [facility] [address] CREATININE 1.3 mg/dL H 0.7-1.2 UREA NITROGEN 30 mg/dL H 8-26 GLUCOSE 141 mg/dL H 70-100 SODIUM 142 mmol/L 136-145 POTASSIUM 3.4 mmol/L L 3.5-5.1 CHLORIDE 106 mmol/L 98-107 CO2 27 mmol/L 22-29 CALCIUM 8.8 mg/dL 8.4-10.2 MAGNESIUM 2.2 mg/dL 1.6-2.6 ANION GAP 9 mmol/L 5-15 .CREAT EGFR(CKD-EPI) 54 L >60 Jan 27, 2024 06:52 PM [facility] CBC Specimen Type: BLOOD No comment entered. Ordering Provider: BASHIR CARVAJAL Report Released Date/Time: Jan 27, 2024 04:54 PM Reporting Lab: [facility] [phone] Performing Lab: [facility] [address] WBC 6.0 4.0-11.0 RBC 3.91 L 4.60-6.20 [...] 14, 2023 11:30 AM VA-TOBACCO FORMER USER [facility] Tobacco Use History This section includes a history of the smoking, or tobacco-related health factors, that were collected on or before the date of the Encounter. The data comes from the [place] facility where the Encounter took place. Date/Time Smoking Status/Tobacco Use Comment F acility Dec 14, 2023 11:30 AM VA-TOBACCO QUIT 15 YRS OR MORE [facility] Oct 13, 2022 01:30 PM VA-TOBACCO FORMER USER [facility] Oct 13, 2022 01:30 PM VA-TOBACCO QUIT 15 YRS OR MORE [facility] Jul 27, 2021 10:00 AM VA-TOBACCO FORMER USER [facility] Jul 27, 2021 10:00 AM VA-TOBACCO QUIT 15 YRS OR MORE [facility] Jan 02, 2020 09:00 AM VA-TOBACCO FORMER USER [facility] Jan 02, 2020 09:00 AM VA-TOBACCO QUIT 15 YRS OR MORE [facility] Jul 21, 2018 03:00 PM VA-TOBACCO FORMER USER [facility] Jul 21, 2018 03:00 PM VA-TOBACCO QUIT 15 YRS OR MORE [facility] Dec 24, 2016 08:01 AM FORMER TOBACCO USER 7Y OR GREATE R [facility] Dec 23, 2015 08:23 AM FORMER TOBACCO USE >1Y <7Y [facility] Dec 26, 2014 10:32 AM FORMER TOBACCO USER 7Y OR GREATE R [facility] August 13, 2013 08:22 AM LIFETIME NON-TOBACCO USER [facility] August 30, 2006 08:38 AM FORMER TOBACCO USER 7Y OR GREATE R [facility] Advance Directives: All [...] August 30, 2006 ADVANCE DIRECTIVE ARGENIS CRAMER [facility]
--- OUTSIDE RECORDS SUMMARY | 2024-02-10 23:38 | XMS_ITS | Encounter Summary ---
Author Name [facility] [place] [facility] [place] Address [address] [place] [id number] Care Team Providers Care Pot Lining Supervisor Name Role Phone SARIAH GOMES Primary Care [...] PART A Sep 09, 2002 PART A [id number] [phone] JOAQUIN COUGHLIN S PATIENT MEDICARE (WNR) MEDICARE (M) PART B Sep 09, 2002 PART B [id number] [phone] NULL,JOAQUIN S PATIENT MEDICARE (WNR) MEDICARE (M) PART A Sep 09, 2002 PART A [id number] JOAQUIN COUGHLIN S PATIENT MEDICARE (WNR) MEDICARE (M) PART B Sep 09, 2002 PART B [id number] JOAQUIN COUGHLIN S PATIENT Selected Encounter This section includes the information on record at [place] for the Encounter. Date/Time Encounter Type Encounter Description Reason Pro vider Source Feb 01, 2024 12:33 PM Outpatient Encounter ADMIN PAT ACTIVTIES (MASNONCT) IHE Encounter Template Text not used by [place] Plan of Treatment: Future Appointments (+ 6 months) and Future Tests (+/- 45 days) The Plan of Treatment section includes future care activities for the [facility] [place] [facility] This section includes future appointments and future orders which are active, pending or scheduled. Future Appointments This section includes appointments that were scheduled to occur 6 months from the date of the Encounter, up to a maximum of 20 appointments. The data comes from all [facility]. Appointment Date/Time Appointment Type Appointme nt Facility Name Feb 21, 2024 10:00 AM AMBULATORY - MEDICINE [facility] Feb 24, 2024 12:15 PM AMBULATORY - MEDICINE [facility] Feb 24, 2024 01:00 PM AMBULATORY - MEDICINE [facility] Mar 02, 2024 01:00 PM AMBULATORY - REHAB MEDICIN E [facility] Jul 31, 2024 09:20 AM AMBULATORY - [...] comes from all [facility]. Test Date/Time Test Type Test Details Facility Name Jan 18, 2024 04:23 PM Consult Order COMMUNITY CARE-ECHOCARDIOGRAPHY [facility] Professor Of Special Education's Choice [facility] Jan 19, 2024 12:10 PM Consult Order COMMUNITY CARE-DERMATOLOGY [facility] Professor Of Special Education's [facility] Jan 28, 2024 02:00 AM Laboratory - Chemistry Order TROPONIN I, HS PLASMA STAT WC [facility] Jan 31, 2024 09:30 AM Consult Order CARDIAC REHAB OUTPT Cons Bedside [facility] Jan 31, 2024 10:13 AM Consult Order CARDIOLOGY INTERVENTIONAL CLINIC OUTPT Cons Professor Of Special Education's Choice [facility] Lab Results: +/- 30 days of the encounter This section includes the Chemistry and Hematology Lab Results on record with [place] for the patient. Radiology Reports and Pathology Reports are provided separately, in subsequent sections. Lab Results This section contains the Chemistry/Hematology Results that were resulted 30 days before or 30 daysafter the date of the Encounter. Date/Time Source Result Type Result - Unit Interpretation Reference Range Comment Jan 31, 2024 10:50 AM [facility] HEMOGLOBIN A1C Specimen Type: BLOOD Comment: [...] 10:13 AM Reporting Lab: [facility] [phone] Performing Lab: [facility] [address] HEMOGLOBIN A1C 5.4 4.0-6.0 Jan 31, 2024 10:50 AM [facility] LIPID PANEL,FASTING Specimen Type: PLASMA No comment entered. Ordering Provider: JULIET SMART Report Released Date/Time: Jan 31, 2024 10:13 AM Reporting Lab: [facility] [address] Performing Lab: [facility] [address] CHOLESTEROL 125 mg/dL <199 TRIGLYCERIDE 95 mg/dL <149 .HDL 37 mg/dL L >40 LDL CALCULATION 69 mg/dL <99 VLDL CALCULATION 19 mg/dL <29 NON HDL CHOLESTEROL 88 mg/dL <129 Jan 31, 2024 07:29 AM [facility] CBC Specimen Type: BLOOD No comment entered. Ordering Provider: BASHIR CARVAJAL Report Released Date/Time: Jan 30, 2024 01:03 PM Reporting Lab: [facility] [address] Performing Lab: [facility] [address] WBC 7.3 4.0-11.0 RBC 3.83 L 4.60-6.20 HGB 11.4 g/dL L 13.5-17.9 HCT 35.1 L 41.0-54.0 MCV 91.6 fL 80.0-100.0 MCH 29.8 pg 27.0-33.0 MCHC 32.5 g/dL 32.0-37.5 PLT 193 150-400 MPV 10.7 fL 9.1-13.0 RDW 12.2 11.5-14.5 Jan 31, 2024 07:29 AM [facility] BASIC METABOLIC PANEL+MG Specimen Type: PLASMA No comment entered. Ordering Provider: BASHIR CARVAJAL Report Released Date/Time: Jan 30, 2024 01:03 PM Reporting Lab: [facility] [address] Performing Lab: [facility] [address] CREATININE 1.3 mg/dL H 0.7-1.2 UREA NITROGEN 24 mg/dL 8-26 GLUCOSE 91 mg/dL 70-100 SODIUM 138 mmol/L 136-145 POTASSIUM 4.1 mmol/L 3.5-5.1 CHLORIDE 108 mmol/L H 98-107 CO2 23 mmol/L 22-29 CALCIUM 8.8 mg/dL 8.4-10.2 MAGNESIUM 2.1 mg/dL 1.6-2.6 ANION GAP 7 mmol/L 5-15 .CREAT EGFR(CKD-EPI) 54 L >60 Jan 30, 2024 10:37 AM [facility] POC ACT Specimen Type: BLOOD No comment entered. Ordering Provider: RODO CHRISTY Report Released Date/Time: Jan 30, 2024 10:43 AM Reporting Lab: [facility] [address] Performing Lab: [facility] [address] POC ACT 241 s H 84-139 Jan 30, 2024 10:08 AM [facility] POC ACT Specimen Type: BLOOD No comment entered. Ordering Provider: RODO CHRISTY Report Released Date/Time: Jan 30, 2024 10:14 AM Reporting Lab: [facility] [address] Performing Lab: [facility] [address] POC ACT 289 s H 84-139 Jan 30, 2024 09:34 AM [facility] POC ACT Specimen Type: BLOOD No comment entered. Ordering Provider: RODO CHRISTY Report Released Date/Time: Jan 30, 2024 10:14 AM Reporting Lab: [facility] [phone] Performing Lab: [facility] [address] POC ACT 294 s H 84-139 Jan 30, 2024 05:37 AM [facility] HEPARIN APTT Specimen Type: PLASMA No comment entered. Ordering Provider: BASHIR CARVAJAL Report Released Date/Time: Jan 29, 2024 09:43 PM Reporting Lab: [facility] [address] Performing Lab: [facility] [address] HEPARIN APTT 83.2 s 48.0-92.0 Jan 30, 2024 05:37 AM [facility] BASIC METABOLIC PANEL+MG Specimen Type: PLASMA No comment entered. Ordering Provider: BASHIR CARVAJAL Report Released Date/Time: Jan 29, 2024 12:19 PM Reporting Lab: [facility] [phone] Performing Lab: [facility] [address] CREATININE 1.4 mg/dL H 0.7-1.2 UREA NITROGEN 27 mg/dL H 8-26 GLUCOSE 95 mg/dL 70-100 SODIUM 139 mmol/L 136-145 POTASSIUM 4.2 mmol/L 3.5-5.1 CHLORIDE 109 mmol/L H 98-107 CO2 24 mmol/L 22-29 CALCIUM 9.0 mg/dL 8.4-10.2 MAGNESIUM 2.1 mg/dL 1.6-2.6 ANION GAP 6 mmol/L 5-15 .CREAT EGFR(CKD-EPI) 49 L >60 Jan 29, 2024 09:02 PM [facility] HEPARIN APTT Specimen Type: PLASMA Comment: Critical Value Reported To: Tomasa Delcid PharmD 01/29/24 @044[facility]. Critical value report confirmed. Ordering Provider: MERY SAMUEL Report Released Date/Time: Jan 29, 2024 03:00 PM Reporting Lab: [facility] [phone] Performing Lab: [facility] [address] HEPARIN APTT 214.6 s HH 48.0-92.0 Jan 29, 2024 06:24 AM [facility] BASIC METABOLIC PANEL+MG Specimen Type: PLASMA No comment entered. Ordering Provider: BASHIR CARVAJAL Report Released Date/Time: Jan 28, 2024 04:36 PM Reporting Lab: [facility] [address] Performing Lab: [facility] [address] CREATININE 1.6 mg/dL H 0.7-1.2 UREA NITROGEN 27 mg/dL H 8-26 GLUCOSE 92 mg/dL 70-100 SODIUM 140 mmol/L 136-145 POTASSIUM 4.2 mmol/L 3.5-5.1 CHLORIDE 110 mmol/L H 98-107 CO2 25 mmol/L 22-29 CALCIUM 8.8 mg/dL 8.4-10.2 MAGNESIUM 2.1 mg/dL 1.6-2.6 ANION GAP 5 mmol/L 5-15 .CREAT EGFR(CKD-EPI) 42 L >60 Jan 28, 2024 05:54 AM [facility] EXTRA PURPLE TUBE Specimen Type: BLOOD No comment entered. Ordering Provider: RODO CHRISTY Report Released Date/Time: Jan 28, 2024 05:54 AM Reporting Lab: [facility] [address] Performing Lab: [facility] [address] EXTRA PURPLE TUBE RECEIVED Jan 28, 2024 05:53 AM [facility] ALBUMIN Specimen Type: PLASMA No comment entered. Ordering Provider: BASHIR CARVAJAL Report Released Date/Time: Jan 27, 2024 04:49 PM Reporting Lab: [facility] [address] Performing Lab: [facility] [address] ALBUMIN 3.5 g/dL 3.5-5.2 Jan 28, 2024 05:53 AM [facility] BASIC METABOLIC PANEL+MG Specimen Type: PLASMA No comment entered. Ordering Provider: BASHIR CARVAJAL Report Released Date/Time: Jan 27, 2024 05:44 PM Reporting Lab: [facility] [address] Performing Lab: [facility] [address] CREATININE 1.4 mg/dL H 0.7-1.2 UREA NITROGEN 28 mg/dL H 8-26 GLUCOSE 92 mg/dL 70-100 SODIUM 140 mmol/L 136-145 POTASSIUM 4.4 mmol/L 3.5-5.1 CHLORIDE 109 mmol/L H 98-107 CO2 23 mmol/L 22-29 CALCIUM 8.8 mg/dL 8.4-10.2 MAGNESIUM 2.1 mg/dL 1.6-2.6 ANION GAP 8 mmol/L 5-15 .CREAT EGFR(CKD-EPI) 49 L >60 Jan 28, 2024 05:52 AM [facility] TROPONIN I, HS Specimen Type: PLASMA Comment: Critical value previously reported on patient. Ordering Provider: BRANDON MEJIA Report Released Date/Time: Jan 27, 2024 09:15 PM Reporting Lab: [facility] [address] Performing Lab: [facility] [address] TROPONIN I, HS 128 HH <35 Jan 28, 2024 12:35 AM [facility] COVID-19 DIAGNOSTIC PANEL (CEPHEID) Specimen Type: NASOPHARYNGEAL Comment: Cepheid GeneXpert (618) Ordering Provider: LUCAS HAWTHORNE Report Released Date/Time: Jan 27, 2024 04:28 PM Reporting Lab: [facility] [address] Performing Lab: [facility] [address] COVID-19 (CEPHEID) Not Detected Not Detected Jan 28, 2024 12:35 AM [facility] HEPARIN APTT Specimen Type: PLASMA Comment: Critical Value Reported To: Deena Oliveros PharmD 01/28/24 @0110 HV. Critical value report confirmed. Ordering Provider: NATALIE ORDOÑEZ Report Released Date/Time: Jan 27, 2024 07:18 PM Reporting Lab: [facility] [address] Performing Lab: [facility] [address] HEPARIN APTT 133.9 s HH 48.0-92.0 Jan 28, 2024 12:35 AM [facility] TROPONIN I, HS Specimen Type: PLASMA Comment: Critical value previously reported on patient. Ordering Provider: BRANDON MEJIA Report Released Date/Time: Jan 27, 2024 09:15 PM Reporting Lab: [facility] [address] Performing Lab: [facility] [address] TROPONIN I, HS 158 HH <35 Jan 27, 2024 09:22 PM [facility] TROPONIN I, HS Specimen Type: PLASMA Comment: Critical value previously reported on patient. Ordering Provider: BASHIR CARVAJAL Report Released Date/Time: Jan 27, 2024 08:38 PM Reporting Lab: [facility] [address] Performing Lab: [facility] [address] TROPONIN I, HS 146 HH <35 Jan 27, 2024 06:52 PM [facility] TROPONIN I, HS Specimen Type: PLASMA Comment: Critical Value Reported To: Brandon Mejia MD 01/27/24 @[address] [place] [address]. Critical value report confirmed. Ordering Provider: BASHIR CARVAJAL Report Released Date/Time: Jan 27, 2024 04:54 PM Reporting Lab: [facility] [address] Performing Lab: [facility] [address] TROPONIN I, HS 136 HH <35 Jan 27, 2024 06:52 PM [facility] BASIC METABOLIC PANEL+MG Specimen Type: PLASMA No comment entered. Ordering Provider: BASHIR CARVAJAL Report Released Date/Time: Jan 27, 2024 04:54 PM Reporting Lab: [facility] [address] Performing Lab: [facility] [address] CREATININE 1.3 mg/dL H 0.7-1.2 UREA NITROGEN 30 mg/dL H 8-26 GLUCOSE 141 mg/dL H 70-100 SODIUM 142 mmol/L 136-145 POTASSIUM 3.4 mmol/L L 3.5-5.1 CHLORIDE 106 mmol/L 98-107 CO2 27 mmol/L 22-29 CALCIUM 8.8 mg/dL 8.4-10.2 MAGNESIUM 2.2 mg/dL 1.6-2.6 ANION GAP 9 mmol/L 5-15 .CREAT EGFR(CKD-EPI) 54 L >60 Jan 27, 2024 06:52 PM [facility] CBC Specimen Type: BLOOD No comment entered. Ordering Provider: BASHIR CARVAJAL Report Released Date/Time: Jan 27, 2024 04:54 PM Reporting Lab: [facility] [phone] Performing Lab: [facility] [address] WBC 6.0 4.0-11.0 RBC 3.91 L 4.60-6.20 [...] and tobacco- related health factors from the [place] facility where the Encounter took place. Current Smoking Status This section includes the most current smoking, or tobacco-related health factor, from the [place] facility where the Encounter took place. Date/Time Current Smoking Status Comment Facil ity Dec 14, 2023 11:30 AM VA-TOBACCO FORMER USER [facility] Tobacco Use History This section includes a history of the smoking, or tobacco-related health factors, that were collected on or before the date of the Encounter. The data comes from the [place] facility where the Encounter took place. Date/Time Smoking Status/Tobacco Use Comment F acility Dec 14, 2023 11:30 AM VA-TOBACCO QUIT 15 YRS OR MORE [facility] Oct 13, 2022 01:30 PM VA-TOBACCO FORMER USER [facility] Oct 13, 2022 01:30 PM VA-TOBACCO QUIT 15 YRS OR MORE [facility] Jul 27, 2021 10:00 AM VA-TOBACCO FORMER USER [facility] Jul 27, 2021 10:00 AM VA-TOBACCO QUIT 15 YRS OR MORE [facility] Jan 02, 2020 09:00 AM VA-TOBACCO FORMER USER [facility] Jan 02, 2020 09:00 AM VA-TOBACCO QUIT 15 YRS OR MORE [facility] Jul 21, 2018 03:00 PM VA-TOBACCO FORMER USER [facility] Jul 21, 2018 03:00 PM VA-TOBACCO QUIT 15 YRS OR MORE [facility] Dec 24, 2016 08:01 AM FORMER TOBACCO USER 7Y OR GREATE R [facility] Dec 23, 2015 08:23 AM FORMER TOBACCO USE >1Y <7Y [facility] Dec 26, 2014 10:32 AM FORMER TOBACCO USER 7Y OR GREATE R [facility] August 13, 2013 08:22 AM LIFETIME NON-TOBACCO USER [facility] August 30, 2006 08:38 AM FORMER TOBACCO USER 7Y OR GREATE R [facility] Advance Directives: All historical and current Section Date Range: From patient's date of to the date document was created. This section includes ALL of a patient's completed or amended [place] Advance and Rescinded Directives. The entries below indicate that a directive exists for the patient, but an actual copy is not included with this document. The data comes from all [facility]. Date Advance Directives Provider Source August 30, [...] the Encounter. The data comes from all [place] treatment facilities. Date/Time Pathology Report Provider Source Jan 06, 2024 11:16 AM [facility] SURGICAL PATHOL OGY REPORT: LOCAL TITLE: LR SURGICAL PATHOLOGY REPORT STANDARD TITLE: PATHOLOGY REPORT DATE OF NOTE: JAN 06, 2024@11:16:39 ENTRY DATE: JAN 06, 2024@11:16:39 AUTHOR: JOSE REESE COSIGNER: URGENCY: STATUS: COMPLETED $APHDR Reporting Lab: [facility] [CLIA# [id number]] [place] [address] - - - - - - - [...] - PATHOLOGY REPORT Accession No. [id number] - - - - - - - [...] - PATHOLOGY REPORT Accession No. [id number] - - - - - - - [...] is inked. [facility] DES[facility]: Microscopic [...] Laboratory: Surgical Pathology Report Performed By: [facility] [CLIA# [id number]] [place] [address] $FTR - - - - - - - - - - - - - - - - - - - - - - - - - - - - - - - - - - - - - - - - (End of report) JOSE REESE MD [facility] Date Jan 06, 2024 - - - - - - - - - - - - - - - - - - - - - - - - - - - - - - - - - - - - - - - - MADYSON,GERI NUNEZ STANDARD FORM 515 ID:[id number] SEX:M :[id number] AGE: 88 LOC:[id number] PCP: Sariah Gomes MD /shelly/ JOSE REESE M.D. STAFF PATHOLOGIST Signed: 01/06/2024 11:16 JOSE REESE [facility] Encounter Notes: All associated encounter notes This section contains the clinical notes associated to the Encounter. Date/Time Encounter Note(s) Provider Source Jan 30, 2024 12:33 PM INTERVENTIONAL CAR DIOLOGY PROCEDURE NOTE: LOCAL TITLE: CARDIAC [facility] REPAIRER PROCEDURE NOTE STANDARD TITLE: INTERVENTIONAL CARDIOLOGY PROCEDURE NOTE DATE OF NOTE: JAN 30, 2024@12:33 ENTRY DATE: FEB 01, 2024@12:34:54 AUTHOR: BRIGID CHILDS EXP COSIGNER: URGENCY: STATUS: COMPLETED see [facility]. /shelly/ BRIGID CHILDS Dredge Pipe Operator Signed: 02/01/2024 12:35 BRIGID CHILDS [facility]
--- OUTSIDE RECORDS SUMMARY | 2024-02-10 23:39 | XMS_ITS | Encounter Summary ---
Author Name [facility] [facility] [place] Address [address] [place] [address] Care Team Providers Care Outside Sales Engineer Name Role Phone JACKELYN GOMES Primary Care [...] PART A Sep 09, 2002 PART A [id number] JOAQUIN COUGHLIN S PATIENT MEDICARE (WNR) MEDICARE (M) PART B Sep 09, 2002 PART B [id number] JOAQUIN COUGHLIN S PATIENT MEDICARE (WNR) MEDICARE (M) PART A Sep 09, 2002 PART A [id number] JOAQUIN COUGHLIN S PATIENT MEDICARE (WNR) MEDICARE (M) PART B Sep 09, 2002 PART B [id number] JOAQUIN COUGHLIN PATIENT Selected Encounter This section includes the information on record at [place] for the Encounter. Date/Time Encounter Type Encounter Description Reason Pro vider Source Feb 10, 2024 12:37 PM Outpatient Encounter COMMUNITY CARE CONSULT IHE Encounter Template Text not used by [place] Plan of Treatment: Future Appointments (+ 6 months) and Future Tests (+/- 45 days) The Plan of Treatment section includes future care activities for the patient from all [place] [facility] This section includes future appointments and future orders which are active, pending or scheduled. Future Appointments This section includes appointments that were scheduled to occur 6 months from the date of the Encounter, up to a maximum of 20 appointments. The data comes from all [facility]. Appointment Date/Time Appointment Type Appointme nt Facility Name Feb 21, 2024 10:00 AM AMBULATORY - MEDICINE [facility] Feb 24, 2024 12:15 PM AMBULATORY - MEDICINE [facility] Feb 24, 2024 01:00 PM AMBULATORY MEDICINE [facility] Mar 02, 2024 01:00 PM AMBULATORY - REHAB MEDICIN E [facility] Jul 31, 2024 09:20 AM AMBULATORY - SURGERY [facility] Active, Pending, and Scheduled Orders This section includes a listing of several types of active, pending, and scheduled orders, including clinic medications orders, diagnostic test orders, procedure orders and consult orders; where the start date of the order is 45 days before the date of the Encounter or 45 days after the date of theEncounter. The data comes from all [facility]. Test Date/Time Test Type Test Details Facility Name Jan 18, 2024 04:23 PM Consult Order COMMUNITY CARE-ECHOCARDIOGRAPHY [facility] Director Of Distance Learning's Choice [facility] Jan 19, 2024 12:10 PM Consult Order COMMUNITY CARE-DERMATOLOGY [facility] Director Of Distance Learning's [facility] Jan 28, 2024 02:00 AM Laboratory - Chemistry Order TROPONIN I, HS PLASMA STAT WC [facility] Jan 31, 2024 09:30 AM Consult Order CARDIAC REHAB OUTPT Cons Bedside [facility] Jan 31, 2024 10:13 AM Consult Order CARDIOLOGY INTERVENTIONAL [facility]INIC OUTPT Cons Director Of Distance Learning's Choice [facility] Lab Results: +/- 30 days of the encounter This section includes the Chemistry and Hematology Lab Results on record with [place] for the patient. Radiology Reports and Pathology [...] Jan 31, 2024 10:13 AM Reporting Lab: [facility] [id number] Performing Lab: [facility] [address] HEMOGLOBIN A1C 5.4 4.0-6.0 Jan 31, 2024 10:50 AM [facility] LIPID PANEL,FASTING Specimen Type: PLASMA No comment entered. Ordering Provider: JULIET SMART Report Released Date/Time: Jan 31, 2024 10:13 AM Reporting Lab: [facility] [phone] Performing Lab: [facility] [phone] CHOLESTEROL 125 mg/dL <199 TRIGLYCERIDE 95 mg/dL <149 .HDL 37 mg/dL L >40 LDL CALCULATION 69 mg/dL <99 VLDL CALCULATION 19 mg/dL <29 NON HDL CHOLESTEROL 88 mg/dL <129 Jan 31, 2024 07:29 AM [facility] CBC Specimen Type: BLOOD No comment entered. Ordering Provider: BASHIR CARVAJAL Report Released Date/Time: Jan 30, 2024 01:03 PM Reporting Lab: [facility] [phone] Performing Lab: [facility] [address] WBC 7.3 4.0-11.0 RBC 3.83 L 4.60-6.20 [...] Jan 30, 2024 01:03 PM Reporting Lab: [facility] [address] Performing Lab: [facility] [address] CREATININE 1.3 mg/dL H 0.7-1.2 UREA NITROGEN [...] Jan 30, 2024 10:43 AM Reporting Lab: [facility] [phone] Performing Lab: [facility] [address] POC ACT 241 s H 84-139 Jan 30, 2024 10:08 AM [facility] POC ACT Specimen Type: BLOOD No comment entered. Ordering Provider: RODO CHRISTY Report Released Date/Time: Jan 30, 2024 10:14 AM Reporting Lab: [facility] [address] Performing Lab: [facility] [address] POC ACT 289 s H 84-139 Jan 30, 2024 09:34 AM [facility] POC ACT Specimen Type: BLOOD No comment entered. Ordering Provider: RODO CHRISTY Report Released Date/Time: Jan 30, 2024 10:14 AM Reporting Lab: [facility] [address] Performing Lab: [facility] [address] POC ACT 294 s H 84-139 Jan 30, 2024 05:37 AM [facility] HEPARIN APTT Specimen Type: PLASMA No comment entered. Ordering Provider: BASHIR CARVAJAL Report Released Date/Time: Jan 29, 2024 09:43 PM Reporting Lab: [facility] [phone] Performing Lab: [facility] [address] HEPARIN APTT 83.2 s 48.0-92.0 Jan 30, 2024 05:37 AM [facility] BASIC METABOLIC PANEL+MG Specimen Type: PLASMA No comment entered. Ordering Provider: BASHIR CARVAJAL Report Released Date/Time: Jan 29, 2024 12:19 PM Reporting Lab: [facility] [address] Performing Lab: [facility] [address] CREATININE 1.4 mg/dL H 0.7-1.2 UREA NITROGEN [...] Value Reported To: Tomasa Delcid PharmD 01/29/24 @[address] [place] [address]. Critical value report confirmed. Ordering Provider: MERY SAMUEL Report Released Date/Time: Jan 29, 2024 03:00 PM Reporting Lab: [facility] [address] Performing Lab: [facility] [address] HEPARIN APTT 214.6 s HH 48.0-92.0 Jan 29, 2024 06:24 AM [facility] BASIC METABOLIC PANEL+MG Specimen Type: PLASMA No comment entered. Ordering Provider: BASHIR CARVAJAL Report Released Date/Time: Jan 28, 2024 04:36 PM Reporting Lab: [facility] [address] Performing Lab: [facility] [address] CREATININE 1.6 mg/dL H 0.7-1.2 UREA NITROGEN [...] Jan 28, 2024 05:54 AM Reporting Lab: [facility] [address] Performing Lab: [facility] [address] EXTRA PURPLE TUBE RECEIVED Jan 28, 2024 05:53 AM [facility] ALBUMIN Specimen Type: PLASMA No comment entered. Ordering Provider: BASHIR CARVAJAL Report Released Date/Time: Jan 27, 2024 04:49 PM Reporting Lab: [facility] [address] Performing Lab: [facility] [address] ALBUMIN 3.5 g/dL 3.5-5.2 Jan 28, 2024 05:53 AM [facility] BASIC METABOLIC PANEL+MG Specimen Type: PLASMA No comment entered. Ordering Provider: BASHIR CARVAJAL Report Released Date/Time: Jan 27, 2024 05:44 PM Reporting Lab: [facility] [address] Performing Lab: [facility] [address] CREATININE 1.4 mg/dL H 0.7-1.2 UREA NITROGEN [...] Jan 27, 2024 09:15 PM Reporting Lab: [facility] [address] Performing Lab: [facility] [address] TROPONIN I, HS 128 HH <35 Jan 28, 2024 12:35 AM [facility] COVID-19 DIAGNOSTIC PANEL (CEPHEID) Specimen Type: NASOPHARYNGEAL Comment: Cepheid GeneXpert (618) Ordering Provider: LUCAS HAWTHORNE Report Released Date/Time: Jan 27, 2024 04:28 PM Reporting Lab: [facility] [address] Performing Lab: [facility] [address] COVID-19 (CEPHEID) Not Detected Not Detected Jan 28, 2024 12:35 AM [facility] HEPARIN APTT Specimen Type: PLASMA Comment: Critical Value Reported To: Deena Oliveros PharmD 01/28/24 @0110 HV. Critical value report confirmed. Ordering Provider: NATALIE ORDOÑEZ Report Released Date/Time: Jan 27, 2024 07:18 PM Reporting Lab: [facility] [address] Performing Lab: [facility] [address] HEPARIN APTT 133.9 s HH 48.0-92.0 Jan 28, 2024 12:35 AM [facility] TROPONIN I, HS Specimen Type: PLASMA Comment: Critical value previously reported on patient. Ordering Provider: BRANDON MEJIA Report Released Date/Time: Jan 27, 2024 09:15 PM Reporting Lab: [facility] [address] Performing Lab: [facility] [address] TROPONIN I, HS 158 HH <35 Jan 27, 2024 09:22 PM [facility] TROPONIN I, HS Specimen Type: PLASMA Comment: Critical value previously reported on patient. Ordering Provider: BASHIR CARVAJAL Report Released Date/Time: Jan 27, 2024 08:38 PM Reporting Lab: [facility] [address] Performing Lab: [facility] [address] TROPONIN I, HS 146 HH <35 Jan 27, 2024 06:52 PM [facility] TROPONIN I, HS Specimen Type: PLASMA Comment: Critical Value Reported To: Brandon Mejia MD 01/27/24 @1950 [place]. Critical value report confirmed. Ordering Provider: BASHIR CARVAJAL Report Released Date/Time: Jan 27, 2024 04:54 PM Reporting Lab: [facility] [address] Performing Lab: [facility] [address] TROPONIN I, HS 136 HH <35 Jan 27, 2024 06:52 PM [facility] BASIC METABOLIC PANEL+MG Specimen Type: PLASMA No comment entered. Ordering Provider: BASHIR CARVAJAL Report Released Date/Time: Jan 27, 2024 04:54 PM Reporting Lab: [facility] [address] Performing Lab: [facility] [address] CREATININE 1.3 mg/dL H 0.7-1.2 UREA NITROGEN 30 mg/dL H 8-26 GLUCOSE 141 mg/dL H 70-100 SODIUM 142 mmol/L 136-145 POTASSIUM 3.4 mmol/L L 3.5-5.1 CHLORIDE 106 mmol/L 98-107 CO2 27 mmol/L 22-29 CALCIUM 8.8 mg/dL 8.4-10.2 MAGNESIUM 2.2 mg/dL 1.6-2.6 ANION GAP 9 mmol/L 5-15 .CREAT EGFR(CKD-EPI) 54 L >60 Jan 27, 2024 06:52 PM [facility] CBC Specimen Type: BLOOD No comment entered. Ordering Provider: BASHIR CARVAJAL Report Released Date/Time: Jan 27, 2024 04:54 PM Reporting Lab: [facility] [address] Performing Lab: [facility] [address] WBC 6.0 4.0-11.0 RBC 3.91 L 4.60-6.20 [...] and tobacco- related health factors from the [facility] where the Encounter took place. Current Smoking Status This section includes the most current smoking, or tobacco-related health factor, from the [place] facility where the Encounter took place. Date/Time Current Smoking Status Comment Facil ity Dec 14, 2023 11:30 AM VA-TOBACCO FORMER USER [facility] Tobacco Use History This section includes a history of the smoking, or tobacco-related health factors, that were collected on or before the date of the Encounter. The data comes from the [place] facility where the Encounter took place. Date/Time [...] ALL of a patient's completed or amended [place] Advance and Rescinded Directives. The entries below indicate that a directive exists for the patient, but an actual copy is not included with this document. The data comes from all [facility]. Date Advance Directives Provider Source August 30, 2006 ADVANCE DIRECTIVE ARGENIS CRAMER S [facility] Encounter Notes: All associated encounter notes This section contains the clinical notes associated to the Encounter. Date/Time Encounter Note(s) Provider Source Feb 10, 2024 12:38 PM NONVA NOTE: LOCAL TITLE: COMMUNITY CARE PRE-AUTH LETTER (AUTOPRINT) STANDARD TITLE: NONVA NOTE DATE OF NOTE: FEB 10, 2024@12:38 ENTRY DATE: FEB 10, 2024@12:38:05 AUTHOR: ANDIE GALLARDO COSIGNER: URGENCY: STATUS: COMPLETED Feb GERI COUGHLIN [address] [place], [place] [address] Dear GERI COUGHLIN, Your [facility] provider has referred you to a provider within the community for care. Your medical care for ECHOCARDIOGRAM has been authorized with the community care provider listed below. DO NOT REPORT TO THE [place] [facility] Provider info: Care has been approved for the following vendor: Office name, address, and phone number: [address] [address] PH: [phone] Please contact the identified provider to schedule your community appointment. If you need assistance with this appointment, please call your facility community care office [facility] Office of Community Care at [phone] during the hours of 8:30AM - 3:00PM. Please follow up with your local [facility] community care office once this is scheduled. This step is needed to ensure your referral duration is maximized and the [place] has accurate referral information for billing purposes. Authorization Number: [id number] Referral Issue Date: Jan Expiration Date: Mar (subject to change based on first appointment) If you are unable to schedule this appointment or the appointment is no longer needed, please contact the community provider above for notification/rescheduling and then call the [facility] Office of Community Care at [phone] during the hours of 8:30AM - 3:00PM. If you need additional care/services not mentioned above or your authorization has and additional care is needed, please contact your primary care provider for a new referral. To review all care/service(s) approved under your referral, please go to the following link: [employer] [facility] Co-Payments: If you are required to pay a VA co-payment, you will be billed by the VA for each authorized visit that you attend. However, you are NOT REQUIRED to make co-payments to a community provider. Thank you for the opportunity to serve you. Sincerely, [place] Community [facility] ([facility]) /shelly/ ANDIE GALLARDO [employer] Signed: 02/10/2024 12:[address] [facility]
--- OUTSIDE RECORDS SUMMARY | 2024-02-10 23:39 | XMS_ITS ---
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 Date/Time Encounter Type Encounter Description Reason Pro vider Source Feb 09, 2024 10:15 AM Outpatient Encounter COMMUNITY CARE CONSULT IHE Encounter Template Text not used by [place] Plan of Treatment: Future Appointments (+ 6 months) and Future Tests (+/- 45 days) The Plan of Treatment section includes future care activities for the patient [facility] [place] [facility] This section includes future appointments and future orders which are active, pending or scheduled. Future Appointments This section includes appointments that were scheduled to occur 6 months from the date of the Encounter, up to a maximum of 20 appointments. The data comes from all [facility]. Appointment Date/Time Appointment Type Appointme nt Facility Name Feb 21, 2024 10:00 AM AMBULATORY - MEDICINE [facility] Feb 24, 2024 12:15 PM AMBULATORY - MEDICINE [facility] Feb 24, 2024 01:[address] [facility] Mar 02, 2024 01:00 PM AMBULATORY - REHAB MEDICIN E [facility] Jul 31, 2024 09:20 AM AMBULATORY - SURGERY [facility] Active, Pending, and Scheduled Orders This section includes a listing of several types of active, pending, and scheduled orders, including clinic medications orders, diagnostic test orders, procedure orders and consult orders; where the start date of the order is 45 days before the date of the Encounter or 45 days after the date of theEncounter. The data comes from all [facility]. Test Date/Time Test Type Test Details Facility Name Jan 18, 2024 04:23 PM Consult Order COMMUNITY CARE-ECHOCARDIOGRAPHY [facility] Head And Neck Surgeon's Choice [facility] Jan 19, 2024 12:10 PM Consult Order COMMUNITY CARE-DERMATOLOGY [facility] Head And Neck Surgeon's [facility] Jan 28, 2024 02:00 AM Laboratory - Chemistry Order TROPONIN I, HS PLASMA STAT WC [facility] Jan 31, 2024 09:30 AM Consult Order CARDIAC REHAB OUTPT Cons Bedside [facility] Jan 31, 2024 10:13 AM Consult Order CARDIOLOGY INTERVENTIONAL CLINIC OUTPT Cons Head And Neck Surgeon's Choice [facility] Lab Results: +/- 30 days [...] Range Comment Jan 31, 2024 10:50 AM [facility] HEMOGLOBIN A1C Specimen Type: BLOOD [...] 10:13 AM Reporting Lab: [facility] [phone] Performing Lab: [facility] [phone] HEMOGLOBIN A1C 5.4 4.0-6.0 Jan 31, 2024 10:50 AM [facility] LIPID PANEL,FASTING Specimen Type: PLASMA No comment entered. Ordering Provider: JULIET SMART Report Released Date/Time: Jan 31, 2024 10:13 AM Reporting Lab: [facility] [phone] Performing Lab: [facility] [phone] CHOLESTEROL 125 mg/dL <199 TRIGLYCERIDE 95 mg/dL <149 .HDL 37 mg/dL L >40 LDL CALCULATION 69 mg/dL <99 VLDL CALCULATION 19 mg/dL <29 NON HDL CHOLESTEROL 88 mg/dL <129 Jan 31, 2024 07:29 AM [facility] CBC Specimen Type: BLOOD No comment entered. Ordering Provider: BASHIR CARVAJAL Report Released Date/Time: Jan 30, 2024 01:03 PM Reporting Lab: [facility] [phone] Performing Lab: [facility] [address] WBC 7.3 4.0-11.0 RBC 3.83 L 4.60-6.20 HGB 11.4 g/dL L 13.5-17.9 HCT 35.1 L 41.0-54.0 MCV 91.6 fL 80.0-100.0 MCH 29.8 pg 27.0-33.0 MCHC 32.5 g/dL 32.0-37.5 PLT 193 150-400 MPV 10.7 fL 9.1-13.0 RDW 12.2 11.5-14.5 Jan 31, 2024 07:29 AM [facility] BASIC METABOLIC PANEL+MG Specimen Type: PLASMA No comment entered. Ordering Provider: BASHIR CARVAJAL Report Released Date/Time: Jan 30, 2024 01:03 PM Reporting Lab: [facility] [phone] Performing Lab: [facility] [phone] CREATININE 1.3 mg/dL H 0.7-1.2 UREA NITROGEN 24 mg/dL 8-26 GLUCOSE 91 mg/dL 70-100 SODIUM 138 mmol/L 136-145 POTASSIUM 4.1 mmol/L 3.5-5.1 CHLORIDE 108 mmol/L H 98-107 CO2 23 mmol/L 22-29 CALCIUM 8.8 mg/dL 8.4-10.2 MAGNESIUM 2.1 mg/dL 1.6-2.6 ANION GAP 7 mmol/L 5-15 .CREAT EGFR(CKD-EPI) 54 L >60 Jan 30, 2024 10:37 AM [facility] POC ACT Specimen Type: BLOOD No comment entered. Ordering Provider: RODO CHRISTY Report Released Date/Time: Jan 30, 2024 10:43 AM Reporting Lab: [facility] [phone] Performing Lab: [facility] [address] POC ACT 241 s H 84-139 Jan 30, 2024 10:08 AM [facility] POC ACT Specimen Type: BLOOD No comment entered. Ordering Provider: RODO CHRISTY Report Released Date/Time: Jan 30, 2024 10:14 AM Reporting Lab: [facility] [phone] Performing Lab: [facility] [address] POC ACT 289 s H 84-139 Jan 30, 2024 09:34 AM [facility] POC ACT Specimen Type: BLOOD No comment entered. Ordering Provider: RDOO CHRISTY Report Released Date/Time: Jan 30, 2024 10:14 AM Reporting Lab: [facility] [phone] Performing Lab: [facility] [address] POC ACT 294 s H 84-139 Jan 30, 2024 05:37 AM [facility] HEPARIN APTT Specimen Type: PLASMA No comment entered. Ordering Provider: BASHIR CARVAJAL Report Released Date/Time: Jan 29, 2024 09:43 PM Reporting Lab: [facility] [phone] Performing Lab: [facility] [address] HEPARIN APTT 83.2 s 48.0-92.0 Jan 30, 2024 05:37 AM [facility] BASIC METABOLIC PANEL+MG Specimen Type: PLASMA No comment entered. Ordering Provider: BASHIR CARVAJAL Report Released Date/Time: Jan 29, 2024 12:19 PM Reporting Lab: [facility] [phone] Performing Lab: [facility] [phone] CREATININE 1.4 mg/dL H 0.7-1.2 UREA NITROGEN 27 mg/dL H 8-26 GLUCOSE 95 mg/dL 70-100 SODIUM 139 mmol/L 136-145 POTASSIUM 4.2 mmol/L 3.5-5.1 CHLORIDE 109 mmol/L H 98-107 CO2 24 mmol/L 22-29 CALCIUM 9.0 mg/dL 8.4-10.2 MAGNESIUM 2.1 mg/dL 1.6-2.6 ANION GAP 6 mmol/L 5-15 .CREAT EGFR(CKD-EPI) 49 L >60 Jan 29, 2024 09:02 PM [facility] HEPARIN APTT Specimen Type: PLASMA Comment: Critical Value Reported To: Tomaas Delcid PharmD 01/29/24 @[address] [place] [address]. Critical value report confirmed. Ordering Provider: MERY SAMUEL Report Released Date/Time: Jan 29, 2024 03:00 PM Reporting Lab: [facility] [phone] Performing Lab: [facility] [phone] HEPARIN APTT 214.6 s HH 48.0-92.0 Jan 29, 2024 06:24 AM [facility] BASIC METABOLIC PANEL+MG Specimen Type: PLASMA No comment entered. Ordering Provider: BASHIR CARVAJAL Report Released Date/Time: Jan 28, 2024 04:36 PM Reporting Lab: [facility] [phone] Performing Lab: [facility] [address] CREATININE 1.6 mg/dL H 0.7-1.2 UREA NITROGEN 27 mg/dL H 8-26 GLUCOSE 92 mg/dL 70-100 SODIUM 140 mmol/L 136-145 POTASSIUM 4.2 mmol/L 3.5-5.1 CHLORIDE 110 mmol/L H 98-107 CO2 25 mmol/L 22-29 CALCIUM 8.8 mg/dL 8.4-10.2 MAGNESIUM 2.1 mg/dL 1.6-2.6 ANION GAP 5 mmol/L 5-15 .CREAT EGFR(CKD-EPI) 42 L >60 Jan 28, 2024 05:54 AM [facility] EXTRA PURPLE TUBE Specimen Type: BLOOD No comment entered. Ordering Provider: RODO CHRISTY Report Released Date/Time: Jan 28, 2024 05:54 AM Reporting Lab: [facility] [phone] Performing Lab: [facility] [phone] EXTRA PURPLE TUBE RECEIVED Jan 28, 2024 05:53 AM [facility] ALBUMIN Specimen Type: PLASMA No comment entered. Ordering Provider: BASHIR CARVAJAL Report Released Date/Time: Jan 27, 2024 04:49 PM Reporting Lab: [facility] [phone] Performing Lab: [facility] [address] ALBUMIN 3.5 g/dL 3.5-5.2 Jan 28, 2024 05:53 AM [facility] BASIC METABOLIC PANEL+MG Specimen Type: PLASMA No comment entered. Ordering Provider: BASHIR CARVAJAL Report Released Date/Time: Jan 27, 2024 05:44 PM Reporting Lab: [facility] [phone] Performing Lab: [facility] [address] CREATININE 1.4 mg/dL H 0.7-1.2 UREA NITROGEN 28 mg/dL H 8-26 GLUCOSE 92 mg/dL 70-100 SODIUM 140 mmol/L 136-145 POTASSIUM 4.4 mmol/L 3.5-5.1 CHLORIDE 109 mmol/L H 98-107 CO2 23 mmol/L 22-29 CALCIUM 8.8 mg/dL 8.4-10.2 MAGNESIUM 2.1 mg/dL 1.6-2.6 ANION GAP 8 mmol/L 5-15 .CREAT EGFR(CKD-EPI) 49 L >60 Jan 28, 2024 05:52 AM [facility] TROPONIN I, HS Specimen Type: PLASMA Comment: Critical value previously reported on patient. Ordering Provider: BRANDON MEJIA Report Released Date/Time: Jan 27, 2024 09:15 PM Reporting Lab: [facility] [phone] Performing Lab: [facility] [phone] TROPONIN I, HS 128 HH <35 Jan 28, 2024 12:35 AM [facility] COVID-19 DIAGNOSTIC PANEL (CEPHEID) Specimen Type: NASOPHARYNGEAL Comment: Cepheid GeneXpert (618) Ordering Provider: LUCAS HAWTHORNE Report Released Date/Time: Jan 27, 2024 04:28 PM Reporting Lab: [facility] [phone] Performing Lab: [facility] [phone] COVID-19 (CEPHEID) Not Detected Not Detected Jan 28, 2024 12:35 AM [facility] HEPARIN APTT Specimen Type: PLASMA Comment: Critical Value Reported To: Deena Oliveros PharmD 01/28/24 @0110 HV. Critical value report confirmed. Ordering Provider: NATALIE ORDOÑEZ Report Released Date/Time: Jan 27, 2024 07:18 PM Reporting Lab: [facility] [phone] Performing Lab: [facility] [address] HEPARIN APTT 133.9 s HH 48.0-92.0 Jan 28, 2024 12:35 AM [facility] TROPONIN I, HS Specimen Type: PLASMA Comment: Critical value previously reported on patient. Ordering Provider: BRANDON MEJIA Report Released Date/Time: Jan 27, 2024 09:15 PM Reporting Lab: [facility] [phone] Performing Lab: [facility] [phone] TROPONIN I, HS 158 HH <35 Jan 27, 2024 09:22 PM [facility] TROPONIN I, HS Specimen Type: PLASMA Comment: Critical value previously reported on patient. Ordering Provider: BASHIR CARVAJAL Report Released Date/Time: Jan 27, 2024 08:38 PM Reporting Lab: [facility] [phone] Performing Lab: [facility] [phone] TROPONIN I, HS 146 HH <35 Jan 27, 2024 06:52 PM [facility] TROPONIN I, HS Specimen Type: PLASMA Comment: Critical Value Reported To: Brandon Mejia MD 01/27/24 @1950 [place]. Critical value report confirmed. Ordering Provider: BASHIR CARVAJAL Report Released Date/Time: Jan 27, 2024 04:54 PM Reporting Lab: [facility] [phone] Performing Lab: [facility] [phone] TROPONIN I, HS 136 HH <35 Jan 27, 2024 06:52 PM [facility] BASIC METABOLIC PANEL+MG Specimen Type: PLASMA No comment entered. Ordering Provider: BASHIR CARVAJAL Report Released Date/Time: Jan 27, 2024 04:54 PM Reporting Lab: [facility] [phone] Performing Lab: [facility] [address] CREATININE 1.3 mg/dL H 0.7-1.2 UREA NITROGEN 30 mg/dL H 8-26 GLUCOSE 141 mg/dL H 70-100 SODIUM 142 mmol/L 136-145 POTASSIUM 3.4 mmol/L L 3.5-5.1 CHLORIDE 106 mmol/L 98-107 CO2 27 mmol/L 22-29 CALCIUM 8.8 mg/dL 8.4-10.2 MAGNESIUM 2.2 mg/dL 1.6-2.6 ANION GAP 9 mmol/L 5-15 .CREAT EGFR(CKD-EPI) 54 L >60 Jan 27, 2024 06:52 PM [facility] CBC Specimen Type: BLOOD No comment entered. Ordering Provider: BASHIR CAVRAJAL Report Released Date/Time: Jan 27, 2024 04:54 PM Reporting Lab: [facility] [phone] Performing Lab: [facility] [address] WBC 6.0 4.0-11.0 RBC 3.91 L 4.60-6.20 [...] and tobacco- related health factors from the [facility] where the Encounter took place. Current Smoking Status This section includes the most current smoking, or tobacco-related health factor, from the [place] facility where the Encounter took place. Date/Time Current Smoking Status Comment Facil ity Dec 14, 2023 11:30 AM VA-TOBACCO FORMER USER [facility] Tobacco Use History This section includes a history of the smoking, or tobacco-related health factors, that were collected on or before the date of the Encounter. The data comes from the [place] facility where the Encounter took place. Date/Time Smoking Status/Tobacco Use Comment F acility Dec 14, 2023 11:30 AM VA-TOBACCO QUIT 15 YRS OR MORE [facility] Oct 13, 2022 01:30 PM VA-TOBACCO FORMER USER [facility] Oct 13, 2022 01:30 PM VA-TOBACCO QUIT 15 YRS OR MORE [facility] Jul 27, 2021 10:00 AM VA-TOBACCO FORMER USER [facility] Jul 27, 2021 10:00 AM VA-TOBACCO QUIT 15 YRS OR MORE [facility] Jan 02, 2020 09:00 AM VA-TOBACCO FORMER USER [facility] Jan 02, 2020 09:00 AM VA-TOBACCO QUIT 15 YRS OR MORE [facility] Jul 21, 2018 03:00 PM VA-TOBACCO FORMER USER [facility] Jul 21, 2018 03:00 PM VA-TOBACCO QUIT 15 YRS OR MORE [facility] Dec 24, 2016 08:01 AM FORMER TOBACCO USER 7Y OR GREATE R [facility] Dec 23, 2015 08:23 AM FORMER TOBACCO USE >1Y <7Y [facility] Dec 26, 2014 10:32 AM FORMER TOBACCO USER 7Y OR GREATE R [facility] August 13, 2013 08:22 AM LIFETIME NON-TOBACCO USER [facility] August 30, 2006 08:38 AM FORMER TOBACCO USER 7Y OR GREATE R [facility] Advance Directives: All historical and current Section Date Range: From patient's date of to the date document was created. This section includes ALL of a patient's completed or amended [place] Advance and Rescinded Directives. The entries below indicate that a directive exists for the patient, but an actual copy is not included with this document. The data comes from all [facility]. Date Advance Directives Provider Source August 30, 2006 ADVANCE DIRECTIVE ARGENIS CRAMER S [facility] Encounter Notes: All associated encounter notes This section contains the clinical notes associated to the Encounter. 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 Please arrange for [facility]IC if echo can not be done within 30 days. Level of Care Coordination Complex/Chronic Care Coordination was determined from: Chart Review Facility Community Care Office Contact Care Coordination Point of Contact: Ligia Gasca RN Services: Moderate Care Coordination Services Case Management, if appropriate Direct communications with interdisciplinary team Plan: proceed to scheduling HR-High risk consult, continue trying to schedule after mandated effort EEF-Extra scheduling effort: 1 additional call [facility] User Role: RN /shelly/ Ligia Gasca RN kettle worker Transplant Registered Nurse Signed: 02/09/2024 10:16 LIGIA GASCA [facility]
== END 2024-01-27 14:01 | disposition home or self-care (01) ==
LOC: AMB 02-10 23:32
PROVIDERS: PCP Internal Medicine; Visit Provider Family Medicine
DX: I21.4 Non-ST elevation (NSTEMI) myocardial infarction (principal)
CPT/HCPCS: A0425; A0434

== ENCOUNTER 2024-02-17 12:42 | Outpatient (CLI) | payer OTHER, SELFPAY ==
--- OUTSIDE RECORDS SUMMARY | 2024-02-17 12:45 | XMS_ITS | Continuity of Care Document ---
Author Name [facility] Organization [facility] Care Team Providers Care Professor Of Law Name Role Phone [facility] Unavailable Unavailable Problems Combined list of problems from Department of Defense and Veterans Affairs facilities. It does not include entries that were removed or entered in error. 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 Nov 22, 2022 Entered By: Phil GOMES Comment: 11/19/2022 [facility] Basal cell carcinoma of skin Active Condition [facility] Benign prostatic hyperplasia Active Condition [facility] CAD - Coronary artery disease Active Condition Feb 16, 2024 Entered By: Phil GOMES Comment: NSTEMI, 01/30/2024 had PCI to mid LAD [facility] Cataract, Senile, Unsp Active Condition [facility] Chronic kidney disease stage 3 Active Condition [facility] Coronary atherosclerosis Active Condition [facility] Dysphagia Active Condition [facility] Former heavy tobacco smoker Active Condition [facility] Hydrocele Nos Active Condition [facility] Hypercholesterolemia * (ICD-9-CM 272.0) Active Condition [facility] Hyperlipidemia Active Condition [facility] Hyperlipidemia * (ICD-9-CM 272.4) Active Condition [facility] Hypermetropia/Hyperopia Active Condition [facility] Hypertension (SNOMED CT 15224288) Active Condition [facility] HYPERTENSION NOS Active Condition [facility] Hypertension, Benign Active Condition [facility] Hypothyroidism (SNOMED CT 62841769) Active Condition [facility] Hypothyroidism * (ICD-9-CM 244.9) Active Condition [facility] Low Back Pain * (ICD-9-CM 724.2) Active Condition [facility] 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) Active Condition [facility] Pain of left shoulder joint Active Condition [facility] Presbyopia Active Condition [facility] PROSTATE-BENING LOC HYPERPLASIA Active Condition [facility] Solitary nodule of lung Active Condition [facility] Diagnosis: ICD-10-CM I21.4 Non-ST elevation (NSTEMI) myocardial infarction Active Diagnosis [facility] Diagnosis: ICD-10-CM I50.9 Heart failure, unspecified Active Diagnosis [facility] Admit Reason: UNSTABLE ANGINA,HEP GTT Active Diagnosis [facility] Diagnosis: ICD-10-CM R94.31 Abnormal electrocardiogram [ECG] [EKG] Active Diagnosis [facility] Diagnosis: ICD-10-CM 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 Diagnosis [facility] Diagnosis: ICD-10-CM D48.5 Neoplasm of uncertain behavior of skin Active Diagnosis [facility] Diagnosis: ICD-10-CM K59.00 Constipation, unspecified Active Diagnosis [facility] Diagnosis: ICD-10-CM Z71.2 Person consulting for explanation of exam or test findings Active Diagnosis [facility] Diagnosis: ICD-10-CM Z71.9 Counseling, unspecified Active Diagnosis [facility] Diagnosis: ICD-10-CM Z23 Encounter for immunization Active Diagnosis [facility] Diagnosis: ICD-10-CM Z46.1 Encounter for fitting and adjustment of hearing aid Active Diagnosis [facility] Diagnosis: ICD-10-CM R13.12 Dysphagia, oropharyngeal phase Active Diagnosis [facility] Diagnosis: ICD-10-CM C44.41 Basal cell carcinoma of skin of scalp and neck Active Diagnosis [facility] Diagnosis: ICD-10-CM L57.0 Actinic keratosis Active Diagnosis [facility] Diagnosis: ICD-10-CM H90.3 Sensorineural hearing loss, bilateral Active Diagnosis [facility] Diagnosis: ICD-10-CM M19.012 Primary osteoarthritis, left shoulder Active Diagnosis [facility] Diagnosis: ICD-10-CM M25.512 Pain in left shoulder Active Diagnosis [facility] Medications Combined list of outpatient medications [...] DAY FOR HEART DISEASE ORAL ACTIVE 04/30/2024 [id number] JULIET SMART S 2023 90 [facility] ATORVASTATI N CA 40MG TAB TAKE ONE TABLET BY MOUTH EVERY DAY FOR CHOLESTE ROL ORAL ACTIVE 04/30/2024 [id number] 4 JULIET SMART S 2023 90 [facility] CALCIPOTRIE NE 0.005% CREAM,TOP APPLY THIN LAYER [...] TO NOSE, EYES, MOUTH. TOPICA L 02/04/2024 [id number] 4 ALWANDA SANCHES 2023 60 [facility] CALCIPOTRIE NE 0.005% CREAM,TOP APPLY THIN LAYER TOPICALL Y TWICE A DAY ACTINIC KERATOSI S MIX WITH EQUAL AMOUNT OF FLUOROUR ACIL CREAM AND APPLY TO DESIGNAT ED AREA(S). USE FOR 4-7 DAYS DIRECTED . MIX WITH EQUAL AMOUNT OF FLUOROUR ACIL CREAM AND APPLY TO DESIGNAT ED AREA(S). USE FOR 4-7 DAYS DIRECTED . TOPICA L 12/19/2022 [id number] MARYJANE IBARRA V 2022 60 [facility] CLOPIDOGREL BISULFATE 75MG TAB TAKE ONE TABLET BY MOUTH EVERY DAY FOR 1 YEAR AFTER STENT THROUGH 01/28/25 ORAL ACTIVE 04/30/2024 [id number] 4 JULIET SMART S 2023 90 [facility] FLUOROURACI L 5% CREAM,TOP APPLY PEA SIZED [...] TREATMEN T IN CLINIC. TOPICA L 02/04/2024 [id number] 4 LAWANDA SANCHES E 2023 40 [facility] FLUOROURACI L 5% CREAM,TOP APPLY THIN LAYER TOPICALL Y TWICE A DAY ACTINIC KERATOSI S MIX WITH EQUAL AMOUNT OF CALCIPOT RIENE CREAM AND APPLY TO DESIGNAT ED AREA(S). USE FOR 4-7 DAYS DIRECTED . MIX WITH EQUAL AMOUNT OF CALCIPOT RIENE CREAM AND APPLY TO DESIGNAT ED AREA(S). USE FOR 4-7 DAYS DIRECTED . TOPICA L 12/19/2022 [id number] 3 MARYJANE IBARRA V 2022 40 [facility] HYDROCHLORO THIAZIDE 25MG/LISINO PRIL 20MG TAB TAKE 1 TABLET BY MOUTH EVERY MORNING FOR BLOOD PRESSURE . ORAL SUSPEND ED 01/31/2025 [id number] 4 JULIET SMART 2023 90 [facility] HYDROCHLORO THIAZIDE 25MG/LISINO PRIL 20MG TAB TAKE 1 TABLET BY MOUTH EVERY MORNING FOR BLOOD PRESSURE . ORAL DISCONT INUED BY PROVIDE R 06/13/2024 [id number] 4 JACKELYN OGMES 2023 90 [facility] HYDROCHLORO THIAZIDE 25MG/LISINO PRIL 20MG TAB TAKE 1 TABLET BY MOUTH EVERY MORNING FOR BLOOD PRESSURE . ORAL DISCONT INUED 03/24/2023 [id number] ROWDY EAST 2021 90 [facility] HYDROCHLORO THIAZIDE 25MG/LISINO PRIL 20MG TAB TAKE ONE TABLET BY MOUTH EVERY MORNING FOR BLOOD PRESSURE (GTETELVINA CatalinoROWDY ; [facility]) ORAL 03/17/2023 [id number] ABELINO LEONG 2022 14 [facility] ISOSORBIDE MONONITRATE 30MG TAB,SA TAKE ONE TABLET BY MOUTH EVERY DAY FOR CHEST PAIN ORAL ACTIVE 04/30/2024 [id number] 4 JULIET SMART 2023 90 [facility] METOPROLOL SUCCINATE 25MG TAB,SA TAKE ONE TABLET BY MOUTH EVERY DAY FOR CHEST PAIN ORAL ACTIVE 04/30/2024 [id number] 4 JULIET SMART 2023 90 [facility] MULTI/EASEMENT WORKER AL/ANTIOXID ANT TAB MOUTH EVERY DAY ORAL ACTIVE JACKELYN GOMES 2022 [facility] NITROGLYCER IN 0.4MG TAB,SUBLING UAL DISSOLVE ONE TABLET UNDER THE TONGUE EVERY 5 MINUTES FOR UP TO 3 DOSES IF NEEDED FOR CHEST PAIN SUBLIN GUAL 02/10/2024 [id number] JACKELYN GOMES 2023 100 [facility] POLYETHYLEN E GLYCOL 3350 PWDR,ORAL TAKE 17 GRAMS BY MOUTH EVERY DAY NEEDED FOR CONSTIPA TION ORAL ACTIVE 12/14/2024 [id number] 4 JACKELYN GOMES 2023 510 [facility] SILVER SULFADIAZIN E 1% CREAM,TOP APPLY TO AFFECTED AREA TOPICALL Y TWICE A DAY NEEDED FOR IRRITATE D SKIN TOPICA L ACTIVE 10/11/2024 [id number] 4 JACKELYN GOMES 2023 50 [facility] Immunizations Combined list of available immunizations from the Department of Defense and Veterans Affairs facilities. Immunization Series Date Given Administered By Site Reaction Lot Number CVX Code Drug Overlock Elastic Attacher Status Comments Source INFLUENZA, HIGH-DOSE, TRIVALENT, PF 2023 KATYA CANTU E LEFT DELTO ID [id number] A 135 complet ed [facility] INFLUENZA, HIGH-DOSE, QUADRIVALENT 2022 BOOGIE ROJAS LEFT DELTO ID [id number] A 197 complet ed [facility] TDAP 2022 MARCUS ALMANZA LEFT DELTO ID L 115 complet ed [facility] INFLUENZA, HIGH-DOSE, QUADRIVALENT 2021 197 complet ed Partner:Rosaline JACKMAN.Admin istered by:[facility] [id number].( [id number] [phone]).[facility]:[phone] .Address: [address] [place] [address] .[phone] Dosage: ML 0.7 C.WGuy [facility] INFLUENZA, INJECTABLE, QUADRIVALENT, PRESERVATIVE FREE 2020 150 complet ed [facility] COVID-19 (MODERNA), MRNA, LNP-S, PF, 100 MCG/0.5ML DOSE OR 50 MCG/0.25ML DOSE 2 2020 207 complet ed [facility] COVID-19 (MODERNA), MRNA, LNP-S, PF, 100 MCG/0.5ML DOSE OR 50 MCG/0.25ML DOSE 1 2020 207 complet ed [facility] INFLUENZA, INJECTABLE, QUADRIVALENT, PRESERVATIVE FREE 2019 150 complet ed [facility] INFLUENZA, SEASONAL, INJECTABLE, PRESERVATIVE FREE 2018 NONE 140 complet ed Right Deltoid (IM) 0.5ml, Lot #:[id number] Exp 10-09-2019 , Name:FLUA LISA QUADRIVAL ENT, Manu:Glax oSmithKli ne SEBRING [facility] ZOSTER RECOMBINANT 2 2018 187 complet ed [facility] ZOSTER RECOMBINANT 1 2018 187 complet ed [facility] INFLUENZA, HIGH DOSE SEASONAL 2017 135 complet ed [facility] INFLUENZA, HIGH DOSE SEASONAL 2017 135 complet ed [facility] INFLUENZA, INJECTABLE, MDCK, PRESERVATIVE FREE, QUADRIVALENT 2016 171 complet ed Partner: Alberto . Administe red by: Alberto Clinician (NPI=Not Provided) . Partner 2 Lot#: [id number] Mfr: RAMONA [facility] INFLUENZA, SEASONAL, INJECTABLE, PRESERVATIVE FREE 2015 140 complet ed [facility] PNEUMOCOCCAL CONJUGATE PCV 13 2014 133 complet ed 000 [facility] INFLUENZA, UNSPECIFIED FORMULATION 2013 88 complet ed [facility] INFLUENZA, UNSPECIFIED FORMULATION 2012 88 complet ed [facility] TDAP 2012 115 complet ed Glaxo aguero de la torre,22C 9R, [facility] ZOSTER LIVE 2012 121 complet ed Merck,[id number] L14 [facility] INFLUENZA, UNSPECIFIED FORMULATION 2011 88 complet ed [facility] INFLUENZA, UNSPECIFIED FORMULATION 2010 88 complet ed [facility] INFLUENZA, UNSPECIFIED FORMULATION 2009 88 complet ed [facility] INFLUENZA, UNSPECIFIED FORMULATION 2008 88 complet jase [facility] INFLUENZA, UNSPECIFIED FORMULATION 2008 88 complet ed [facility] INFLUENZA, UNSPECIFIED FORMULATION 2007 88 complet ed [facility] INFLUENZA, UNSPECIFIED FORMULATION 2007 88 complet jase [facility] INFLUENZA, UNSPECIFIED FORMULATION 2007 88 complet jase [facility] INFLUENZA, UNSPECIFIED FORMULATION 2006 88 complet ed [facility] PNEUMOCOCCAL (HISTORICAL) 2006 NONE 109 complet ed Left Deltoid (IM), Lot Number:[id number] Exp: 12/24/08 [facility] PNEUMOCOCCAL, UNSPECIFIED FORMULATION 2006 109 complet ed [facility] TD (ADULT), 5 LF TETANUS TOXOID, PRESERVATIVE FREE, ADSORBED 2005 113 complet ed [facility] INFLUENZA, SEASONAL, INJECTABLE 2004 141 complet ed [facility] TD(ADULT) UNSPECIFIED FORMULATION 2004 139 complet ed [facility] TD(ADULT) UNSPECIFIED FORMULATION 2003 139 complet ed Lindsey [facility] TD(ADULT) UNSPECIFIED FORMULATION 1994 139 complet ed [facility] Results Combined list of recent chemistry, [...] Jan 31, 2024 10:13 AM Reporting Lab: [facility] [address] Performing Lab: [place] [address] [place] [facility] LIPID PANEL,FAS TING CHOLESTEROL [MASS/VOLUM E] IN SERUM OR PLASMA 125 mg/dL <199 - 199 01/30 Specimen Type: PLASMA No comment entered. Ordering Provider: Nargis SMART Report Released Date/Time: Jan 31, 2024 10:13 AM Reporting Lab: [facility] [address] Performing Lab: [facility] [address] [place] [facility] LIPID PANEL,FAS TING TRIGLYCERID E [MASS/VOLUM E] IN SERUM OR PLASMA 95 mg/dL <149 - 149 01/30 Specimen Type: PLASMA No comment entered. Ordering Provider: Nargis SMART Report Released Date/Time: Jan 31, 2024 10:13 AM Reporting Lab: [facility] [address] Performing Lab: [facility] [address] [place] [facility] LIPID PANEL,FAS TING CHOLESTEROL IN HDL [MASS/VOLUM E] IN SERUM OR PLASMA 37 mg/dL 40 01/30 L Specimen Type: PLASMA No comment entered. Ordering Provider: Nargis SMART Report Released Date/Time: Jan 31, 2024 10:13 AM Reporting Lab: [facility] [address] Performing Lab: [facility] [address] [place] [facility] LIPID PANEL,FAS TING CHOLESTEROL IN LDL [MASS/VOLUM E] IN SERUM OR PLASMA BY CALCULATION 69 mg/dL <99 - 99 01/30 Specimen Type: PLASMA No comment entered. Ordering Provider: Nargis SMART Report Released Date/Time: Jan 31, 2024 10:13 AM Reporting Lab: [facility] [address] Performing Lab: [facility] [address] [place] [facility] LIPID PANEL,FAS TING CHOLESTEROL IN VLDL [MASS/VOLUM E] IN SERUM OR PLASMA BY CALCULATION 19 mg/dL <29 - 29 01/30 Specimen Type: PLASMA No comment entered. Ordering Provider: Nargis SMART Report Released Date/Time: Jan 31, 2024 10:13 AM Reporting Lab: [facility] [address] Performing Lab: [facility] [address] [place] [facility] LIPID PANEL,FAS TING CHOLESTEROL NON HDL [MASS/VOLUM E] IN SERUM OR PLASMA 88 mg/dL <129 - 129 01/30 Specimen Type: PLASMA No comment entered. Ordering Provider: Nargis SMART Report Released Date/Time: Jan 31, 2024 10:13 AM Reporting Lab: [facility] [address] Performing Lab: [facility] [address] [place] [facility] CBC LEUKOCYTES [#/VOLUME] IN BLOOD BY AUTOMATED COUNT 7.3 4.0 - 11.0 01/30 Specimen Type: BLOOD No comment entered. Ordering Provider: BASHIR CARVAJAL Report Released Date/Time: Jan 30, 2024 01:03 PM Reporting Lab: [facility] [address] Performing Lab: [facility] [address] [place] [facility] CBC ERYTHROCYTE S [#/VOLUME] IN BLOOD BY AUTOMATED COUNT 3.83 4.60 - 6.20 01/30 L Specimen Type: BLOOD No comment entered. Ordering Provider: BASHIR CARVAJAL Report Released Date/Time: Jan 30, 2024 01:03 PM Reporting Lab: [facility] [address] Performing Lab: [facility] [address] [place] [facility] CBC HEMOGLOBIN [MASS/VOLUM E] IN BLOOD 11.4 g/dL 13.5 - 17.9 01/30 L Specimen Type: BLOOD No comment entered. Ordering Provider: BASHIR CARVAJAL Report Released Date/Time: Jan 30, 2024 01:03 PM Reporting Lab: [facility] [address] Performing Lab: [facility] [address] [place] [facility] CBC HEMATOCRIT [VOLUME FRACTION] OF BLOOD BY AUTOMATED COUNT 35.1 41.0 - 54.0 01/30 L Specimen Type: BLOOD No comment entered. Ordering Provider: BASHIR CARVAJAL Report Released Date/Time: Jan 30, 2024 01:03 PM Reporting Lab: [facility] [address] Performing Lab: [facility] [address] [place] [facility] CBC MCV [ENTITIC VOLUME] BY AUTOMATED COUNT 91.6 fL 80.0 - 100.0 01/30 Specimen Type: BLOOD No comment entered. Ordering Provider: BASHIR CARVAJAL Report Released Date/Time: Jan 30, 2024 01:03 PM Reporting Lab: [facility] [address] Performing Lab: [facility] [address] [place] [facility] CBC MCH [ENTITIC MASS] BY AUTOMATED COUNT 29.8 pg 27.0 - 33.0 01/30 Specimen Type: BLOOD No comment entered. Ordering Provider: BASHIR CARVAJAL Report Released Date/Time: Jan 30, 2024 01:03 PM Reporting Lab: [facility] [address] Performing Lab: [facility] [address] [place] [facility] CBC MCHC [MASS/VOLUM E] BY AUTOMATED COUNT 32.5 g/dL 32.0 - 37.5 01/30 Specimen Type: BLOOD No comment entered. Ordering Provider: BASHIR CARVAJAL Report Released Date/Time: Jan 30, 2024 01:03 PM Reporting Lab: [facility] [address] Performing Lab: [facility] [address] [place] [facility] CBC PLATELETS [#/VOLUME] IN BLOOD BY AUTOMATED COUNT 193 150 - 400 01/30 Specimen Type: BLOOD No comment entered. Ordering Provider: BASHIR CARVAJAL Report Released Date/Time: Jan 30, 2024 01:03 PM Reporting Lab: [facility] [address] Performing Lab: [facility] [address] [place] [facility] CBC PLATELET MEAN VOLUME [ENTITIC VOLUME] IN BLOOD BY AUTOMATED COUNT 10.7 fL 9.1 - 13.0 01/30 Specimen Type: BLOOD No comment entered. Ordering Provider: BASHIR CARVAJAL Report Released Date/Time: Jan 30, 2024 01:03 PM Reporting Lab: [facility] [address] Performing Lab: [facility] [address] [place] [facility] CBC ERYTHROCYTE DISTRIBUTIO N WIDTH [RATIO] BY AUTOMATED COUNT 12.2 11.5 - 14.5 01/30 Specimen Type: BLOOD No comment entered. Ordering Provider: BASHIR CARVAJAL Report Released Date/Time: Jan 30, 2024 01:03 PM Reporting Lab: [facility] [address] Performing Lab: [facility] [address] [place] [facility] BASIC METABOLIC PANEL+MG CREATININE [MASS/VOLUM E] IN SERUM OR PLASMA 1.3 mg/dL 0.7 - 1.2 01/30 H Specimen Type: PLASMA No comment entered. Ordering Provider: BASHIR CARVAJAL Report Released Date/Time: Jan 30, 2024 01:03 PM Reporting Lab: [facility] [address] Performing Lab: [facility] [address] [place] [facility] BASIC METABOLIC PANEL+MG UREA NITROGEN [MASS/VOLUM E] IN SERUM OR PLASMA 24 mg/dL 8 - 26 01/30 Specimen Type: PLASMA No comment entered. Ordering Provider: BASHIR CARVAJAL Report Released Date/Time: Jan 30, 2024 01:03 PM Reporting Lab: [facility] [address] Performing Lab: [address] [place] [facility] BASIC METABOLIC PANEL+MG GLUCOSE [MASS/VOLUM E] IN SERUM OR PLASMA 91 mg/dL 70 - 100 01/30 Specimen Type: PLASMA No comment entered. Ordering Provider: BASHIR CARVAJAL Report Released Date/Time: Jan 30, 2024 01:03 PM Reporting Lab: [facility] [address] Performing Lab: [facility] [address] [place] [facility] BASIC METABOLIC PANEL+MG SODIUM [MOLES/VOLU ME] IN SERUM OR PLASMA 138 mmol/L 136 - 145 01/30 Specimen Type: PLASMA No comment entered. Ordering Provider: BASHIR CARVAJAL Report Released Date/Time: Jan 30, 2024 01:03 PM Reporting Lab: [facility] [address] Performing Lab: [facility] [address] [place] [facility] BASIC METABOLIC PANEL+MG POTASSIUM [MOLES/VOLU ME] IN SERUM OR PLASMA 4.1 mmol/L 3.5 - 5.1 01/30 Specimen Type: PLASMA No comment entered. Ordering Provider: BASHIR CARVAJAL Report Released Date/Time: Jan 30, 2024 01:03 PM Reporting Lab: [facility] [address] Performing Lab: [facility] [address] [place] [facility] BASIC METABOLIC PANEL+MG CHLORIDE [MOLES/VOLU ME] IN SERUM OR PLASMA 108 mmol/L 98 - 107 01/30 H Specimen Type: PLASMA No comment entered. Ordering Provider: BASHIR CARVAJAL Report Released Date/Time: Jan 30, 2024 01:03 PM Reporting Lab: [facility] [address] Performing Lab: [facility] [address] [place] [facility] BASIC METABOLIC PANEL+MG CARBON DIOXIDE, TOTAL [MOLES/VOLU ME] IN SERUM OR PLASMA 23 mmol/L 22 - 29 01/30 Specimen Type: PLASMA No comment entered. Ordering Provider: BASHIR CARVAJAL Report Released Date/Time: Jan 30, 2024 01:03 PM Reporting Lab: [facility] [address] Performing Lab: [facility] [address] [place] [facility] BASIC METABOLIC PANEL+MG CALCIUM [MASS/VOLUM E] IN SERUM OR PLASMA 8.8 mg/dL 8.4 - 10.2 01/30 Specimen Type: PLASMA No comment entered. Ordering Provider: BASHIR CARVAJAL Report Released Date/Time: Jan 30, 2024 01:03 PM Reporting Lab: [facility] [address] Performing Lab: [facility] [address] [place] [facility] BASIC METABOLIC PANEL+MG MAGNESIUM [MASS/VOLUM E] IN SERUM OR PLASMA 2.1 mg/dL 1.6 - 2.6 01/30 Specimen Type: PLASMA No comment entered. Ordering Provider: BASHIR CARVAJAL Report Released Date/Time: Jan 30, 2024 01:03 PM Reporting Lab: [facility] [address] Performing Lab: [facility] [address] [place] [facility] BASIC METABOLIC PANEL+MG ANION GAP IN SERUM OR PLASMA 7 mmol/L 5 - 15 01/30 Specimen Type: PLASMA No comment entered. Ordering Provider: BASHIR CARVAJAL Report Released Date/Time: Jan 30, 2024 01:03 PM Reporting Lab: [facility] [address] Performing Lab: [facility] [address] [place] [facility] BASIC METABOLIC PANEL+MG GLOMERULAR FILTRATION RATE/1.73 SQ M.PREDICTED [VOLUME RATE/AREA] IN SERUM, PLASMA OR BLOOD BY CREATININE- BASED FORMULA (CKD-EPI 2020) 54 60 01/30 L Specimen Type: PLASMA No comment entered. Ordering Provider: BASHIR CARVAJAL Report Released Date/Time: Jan 30, 2024 01:03 PM Reporting Lab: [facility] [address] Performing Lab: [facility] [address] [place] [facility] POC ACT ACTIVATED CLOTTING TIME (ACT) OF BLOOD BY COAGULATION ASSAY 241 s 84 - 139 01/29 H Specimen Type: BLOOD No comment entered. Ordering Provider: RODO CHRISTY Report Released Date/Time: Jan 30, 2024 10:43 AM Reporting Lab: [facility] [address] Performing Lab: [facility] [address] [place] [facility] POC ACT ACTIVATED CLOTTING TIME (ACT) OF BLOOD BY COAGULATION ASSAY 289 s 84 - 139 01/29 H Specimen Type: BLOOD No comment entered. Ordering Provider: RODO CHRISTY Report Released Date/Time: Jan 30, 2024 10:14 AM Reporting Lab: [facility] [address] Performing Lab: [facility] [address] [place] [facility] POC ACT ACTIVATED CLOTTING TIME (ACT) OF BLOOD BY COAGULATION ASSAY 294 s 84 - 139 01/29 H Specimen Type: BLOOD No comment entered. Ordering Provider: RODO CHRISTY Report Released Date/Time: Jan 30, 2024 10:14 AM Reporting Lab: [facility] [address] Performing Lab: [facility] [address] [place] [facility] HEPARIN APTT APTT IN PLATELET POOR PLASMA BY COAGULATION ASSAY 83.2 s 48.0 - 92.0 01/29 Specimen Type: PLASMA No comment entered. Ordering Provider: BASHIR CARVAJAL Report Released Date/Time: Jan 29, 2024 09:43 PM Reporting Lab: [facility] [address] Performing Lab: [facility] [address] [place] [facility] BASIC METABOLIC PANEL+MG CREATININE [MASS/VOLUM E] IN SERUM OR PLASMA 1.4 mg/dL 0.7 - 1.2 01/29 H Specimen Type: PLASMA No comment entered. Ordering Provider: BASHIR CARVAJAL Report Released Date/Time: Jan 29, 2024 12:19 PM Reporting Lab: [facility] [address] Performing Lab: [facility] [address] [place] [facility] BASIC METABOLIC PANEL+MG UREA NITROGEN [MASS/VOLUM E] IN SERUM OR PLASMA 27 mg/dL 8 - 26 01/29 H Specimen Type: PLASMA No comment entered. Ordering Provider: BASHIR CARVAJAL Report Released Date/Time: Jan 29, 2024 12:19 PM Reporting Lab: [facility] [id number] Performing Lab: [facility] [phone] [place] [facility] BASIC METABOLIC PANEL+MG GLUCOSE [MASS/VOLUM E] IN SERUM OR PLASMA 95 mg/dL 70 - 100 01/29 Specimen Type: PLASMA No comment entered. Ordering Provider: BASHIR CARVAJAL Report Released Date/Time: Jan 29, 2024 12:19 PM Reporting Lab: [facility] [id number] Performing Lab: [facility] [phone] [place] [facility] BASIC METABOLIC PANEL+MG SODIUM [MOLES/VOLU ME] IN SERUM OR PLASMA 139 mmol/L 136 - 145 01/29 Specimen Type: PLASMA No comment entered. Ordering Provider: BASHIR CARAVJAL Report Released Date/Time: Jan 29, 2024 12:19 PM Reporting Lab: [facility] [phone] Performing Lab: [facility] [phone] [place] [facility] BASIC METABOLIC PANEL+MG POTASSIUM [MOLES/VOLU ME] IN SERUM OR PLASMA 4.2 mmol/L 3.5 - 5.1 01/29 Specimen Type: PLASMA No comment entered. Ordering Provider: BASHIR CARVAJAL Report Released Date/Time: Jan 29, 2024 12:19 PM Reporting Lab: [facility] [phone] Performing Lab: [facility] [address] [place] [facility] BASIC METABOLIC PANEL+MG CHLORIDE [MOLES/VOLU ME] IN SERUM OR PLASMA 109 mmol/L 98 - 107 01/29 H Specimen Type: PLASMA No comment entered. Ordering Provider: BASHIR CARVAJAL Report Released Date/Time: Jan 29, 2024 12:19 PM Reporting Lab: [facility] [address] Performing Lab: [facility] [address] [place] [facility] BASIC METABOLIC PANEL+MG CARBON DIOXIDE, TOTAL [MOLES/VOLU ME] IN SERUM OR PLASMA 24 mmol/L 22 - 29 01/29 Specimen Type: PLASMA No comment entered. Ordering Provider: BASHIR CARVAJAL Report Released Date/Time: Jan 29, 2024 12:19 PM Reporting Lab: [facility] [address] Performing Lab: [facility] [address] [place] [facility] BASIC METABOLIC PANEL+MG CALCIUM [MASS/VOLUM E] IN SERUM OR PLASMA 9.0 mg/dL 8.4 - 10.2 01/29 Specimen Type: PLASMA No comment entered. Ordering Provider: BASHIR CARVAJAL Report Released Date/Time: Jan 29, 2024 12:19 PM Reporting Lab: [facility] [address] Performing Lab: [facility] [address] [place] [facility] BASIC METABOLIC PANEL+MG MAGNESIUM [MASS/VOLUM E] IN SERUM OR PLASMA 2.1 mg/dL 1.6 - 2.6 01/29 Specimen Type: PLASMA No comment entered. Ordering Provider: BASHIR CARVAJAL Report Released Date/Time: Jan 29, 2024 12:19 PM Reporting Lab: [facility] [address] Performing Lab: [facility] [address] [place] [facility] BASIC METABOLIC PANEL+MG ANION GAP IN SERUM OR PLASMA 6 mmol/L 5 - 15 01/29 Specimen Type: PLASMA No comment entered. Ordering Provider: BASHIR CARVAJAL Report Released Date/Time: Jan 29, 2024 12:19 PM Reporting Lab: [facility] [address] Performing Lab: [facility] [address] [place] [facility] BASIC METABOLIC PANEL+MG GLOMERULAR FILTRATION RATE/1.73 SQ M.PREDICTED [VOLUME RATE/AREA] IN SERUM, PLASMA OR BLOOD BY CREATININE- BASED FORMULA (CKD-EPI 2020) 49 60 01/29 L Specimen Type: PLASMA No comment entered. Ordering Provider: BASHIR CARVAJAL Report Released Date/Time: Jan 29, 2024 12:19 PM Reporting Lab: [facility] [address] Performing Lab: [facility] [address] [facility] HEPARIN APTT APTT IN [place] POOR PLASMA BY COAGULATION ASSAY 214.6 s 48.0 - 92.0 01/28 HH Specimen Type: PLASMA Comment: Critical Value Reported To: Tomasa Delcid PharmD 01/29/24 @2129 . Critical value report confirmed. Ordering Provider: NICOLA SAMUEL Report Released Date/Time: Jan 29, 2024 03:00 PM Reporting Lab: [facility] [address] Performing Lab: [facility] [address] [facility] Vital Signs Combined list of inpatient and outpatient Vital Signs from Department of Defense and Veterans Affairs, ranging from 12 months to all on record, depending upon the facility. Vital Sign Value Date Comments Source WEIGHT 148.37 01/30/2024 08:00:00 [facility] BMI 23kg/m2 01/30/2024 08:00:00 [facility] PAIN 7 01/28/2024 03:25:50 [facility] SYSTOLIC BLOOD PRESSURE 138 01/11/20 24 13:25:22 [facility] DIASTOLIC BLOOD PRESSURE 79 024 13:25:22 [facility] PULSE OXIMETRY 98 01/11/2024 13:25:22 [facility] WEIGHT 151 01/11/2024 13:25:22 [facility] BMI 24kg/m2 01/11/2024 13:25:22 [facility] PAIN 0 01/11/2024 13:25:22 [facility] HEIGHT 67 01/11/2024 13:25:22 [facility] TEMPERATURE 98.8 01/11/2024 13:25:22 [facility] PULSE 53 01/11/2024 13:25:22 [facility] RESPIRATION 16 01/11/2024 13:25:22 [facility] SYSTOLIC BLOOD PRESSURE 156 12/14/19 24 11:26:02 [facility] DIASTOLIC BLOOD PRESSURE 82 024 11:26:02 [facility] PULSE OXIMETRY 96 12/14/2023 11:26:02 [facility] WEIGHT 153 12/14/2023 11:26:02 [facility] BMI 24kg/m2 12/14/2023 11:26:02 [facility] PAIN 0 12/14/2023 11:26:02 [facility] TEMPERATURE 98.8 12/14/2023 11:26:02 [facility] PULSE 50 12/14/2023 11:26:02 [facility] RESPIRATION 16 12/14/2023 11:26:02 [facility] SYSTOLIC BLOOD PRESSURE 105 02/18/20 23 14:01:00 [place] [facility] DIASTOLIC BLOOD PRESSURE 57 023 14:01:00 [facility] WEIGHT 156.0 02/17/2023 14:01:00 [facility] BMI 23kg/m2 02/17/2023 14:01:00 [facility] TEMPERATURE 98.5 02/17/2023 14:01:00 [facility] RESPIRATION 16 02/17/2023 14:01:00 [place] [facility] Encounters Combined list of: 1) Encounters from Department of Veterans Affairs facilities going back up to thelast 18 months. 2) Encounters from the Department of [facility] facilities going back up to 280 months. Location Location Details Encounter Type Encounter Number Reason For Visit Attending Provider ADM Date DC Date Status Disposition Source [facility] Outpatient Encounter [id number] 09/10 [facility] Outpatient Encounter [id number] 09/10 [facility] OFFICE O/P EST MOD 30-39 MIN [id number] Diagnos is: ICD-10- CM M25.512 Pain in left shoulde r
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
JESSICA DIOR 10/18 [facility] Outpatient Encounter [id number] 10/18 [facility] OFFICE O/P EST LOW 20-29 MIN [id number] Diagnos is: ICD-10- CM H90.3 Sensori neural hearing loss, bilater al
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
Yarelis PENNINGTON R 11/11 [facility] OFFICE O/P NEW SF 15-29 MIN [id number] Diagnos is: ICD-10- CM L57.0 Actinic keratos is
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
ALEX BHATT 11/24 [facility] OFFICE O/P EST MOD 30-39 MIN [id number] Diagnos is: ICD-10- CM R13.12 Dysphag ia, orophar yngeal phase<b r/> FADY VENCESPhil 12/06 [facility] CASE MANAGEMENT [id number] RODERICKMARCUS ZAMANBREANA 01/04 [facility] Outpatient Encounter [id number] RODERICKMARCUSBREANA 01/06 [place] [facility] CONFORMITY EVALUATION [id number] Diagnos is: ICD-10- CM Z46.1 Encount er for fitting and adjustm ent of hearing aid<br/ > SYDNEE RANDALL RTHA R 01/07 [facility] Outpatient Encounter [id number] 01/11 [facility] PRO PHONE CALL 5-10 MIN [id number] Diagnos is: ICD-10- CM Z71.9 Outsole Paraffiner ing, 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
TAINA BENJAMIN K 01/11 [facility] Outpatient Encounter [id number] 01/12 [facility] IMMUNIZATI ON ADMIN [id number] Diagnos is: ICD-10- CM Z23 Encount er for immuniz ation<b r/> LOLA ROJASI S A 01/28 [facility] Outpatient Encounter [id number] JUAN ARMENTA 02/10 [facility] Outpatient Encounter [id number] 02/14 [facility] Outpatient Encounter [id number] EDSON LEONGI 02/15 [facility] HC PRO PHONE CALL 5-10 MIN [id number] Diagnos is: ICD-10- CM Z71.9 Outsole Paraffiner ing, 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
TAINA BENJAMIN ICA K 02/15 [facility] OFFICE O/P EST LOW 20-29 MIN [id number] Diagnos is: ICD-10- CM D48.5 Neoplas m of uncerta in behavio r of skin
DANITZA,PET ER L 02/17 [facility] Outpatient Encounter [id number] EBONIE GRIGGS H 02/24 [facility] CASE MANAGEMENT [id number] Arpan HENDRICKSON L 02/24 [facility] Outpatient Encounter [id number] 02/24 [facility] HC PRO PHONE CALL 5-10 MIN [id number] Diagnos is: ICD-10- CM Z71.2 Person consult ing for explana tion of exam or test finding s
KRISHNA SHERMAN TY K 02/25 [facility] Outpatient Encounter [id number] 03/08 [facility] OFFICE O/P EST HI 40 MIN [id number] Diagnos is: ICD-10- CM K59.00 Constip ation, 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
Phil GOMES ALLY H 12/13 [facility] [place] [facility] OFFICE O/P EST MOD 30 MIN [id number] Diagnos is: ICD-10- CM D48.5 Neoplas m of uncerta in behavio r of skin
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
Phil GOMES ALLY H 01/10 [facility] Outpatient Encounter [id number] Diagnos is: ICD-10- CM R94.31 Abnorma l electro cardiog annia [ECG] [EKG]<b r/> Yarelis COLEMAN M 01/17 [facility] [place] [facility] Outpatient Encounter [id number] BILLIE GILL 01/19 [facility] [place] [facility] Outpatient Encounter [id number] 01/25 [facility] [place] [facility] Outpatient Encounter [id number] SYSTEM,CIS -ARK 01/26 [facility] [place] [facility] Inpatient Encounter [id number] Jason KEY 01/26 [facility] [place] [facility] Inpatient Encounter [id number] 01/26 [facility] [place] [facility] CT Scan of Mult Cor Art using Intravasc Optic Cohere [id number] Admit Reason: UNSTABL E ANGINA, HEP GTT<br/ > TEAM,CARDS ONE 01/26 [facility] [place] [facility] Inpatient Encounter [id number] 01/26 [facility] 1ST HOSP IP/OBS HIGH 75 [id number] Diagnos is: ICD-10- CM 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
THERESA HAWTHORNE 01/27 [facility] [place] [facility] Inpatient Encounter [id number] 01/27 [facility] Inpatient Encounter [id number] SYSTEM,CIS -ARK 01/28 [facility] [place] [facility] Inpatient Encounter [id number] 01/28 [facility] [place] [facility] Inpatient Encounter [id number] 01/28 [place] [facility] [place] [facility] Inpatient Encounter [id number] SYSTEM,CIS -ARK 01/29 [place] [facility] [place] [facility] Inpatient Encounter [id number] 01/29 [place] [facility] [place] [facility] Inpatient Encounter [id number] 01/29 [place] [facility] [place] [facility] ENDOLUMINL IVUS OCT C 1ST [id number] Diagnos is: ICD-10- CM 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<br/ > THERESA HAWTHORNE 01/29 [place] [facility] [place] [facility] Inpatient Encounter [id number] 01/29 [facility] [place] [facility] HOSP IP/OBS DSCHRG MGMT >30 [id number] Diagnos is: ICD-10- CM 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<br/ > ADELAIDA ROSSI 01/29 [facility] [place] [facility] Inpatient Encounter [id number] SYSTEM,CIS -ARK 01/30 [place] [facility] [place] [facility] Inpatient Encounter [id number] 01/30 [facility] [place] [facility] Inpatient Encounter [id number] 01/30 [facility] [place] [facility] Inpatient Encounter [id number] 01/30 [facility] [place] [facility] Inpatient Encounter [id number] 01/30 [place] [facility] [place] [facility] Outpatient Encounter [id number] 01/31 [place] [facility] [place] [facility] Outpatient Encounter [id number] 02/02 [place] [facility] [place] [facility] Outpatient Encounter [id number] 02/02 [place] [facility] [place] [facility] Outpatient Encounter [id number] 02/05 [place] [place] [facility] Outpatient Encounter [id number] 02/08 [place] [facility] [place] [facility] Outpatient Encounter [id number] 02/09 [place] [facility] Social History Combined list of available smoking, tobacco, and other social history from Department of Defense and Veterans Affairs facilities. Social History Type Response Date Comment [facility] e Tobacco smoking status NHIS VA-TOBACCO QUIT 15 YRS OR MORE 12/14/2023 [facility] History of tobacco use HI-TOBACCO FORMER USER 12/14/2023 [facility] History of tobacco use HI-TOBACCO FORMER USER 10/13/2022 [facility] History of tobacco use HI-TOBACCO FORMER USER 07/27/2021 [facility] History of tobacco use VA-TOBACCO FORMER USER 01/02/2020 [facility] History of tobacco use VA-TOBACCO FORMER USER 07/21/2018 [facility] History of tobacco use FORMER TOBACCO USER 7Y OR GREATER 12/24/2016 [facility] History of tobacco use FORMER TOBACCO USE >1Y <7Y 12/23/2015 [facility] History of tobacco use FORMER TOBACCO USER 7Y OR GREATER 12/26/2014 [facility] History of tobacco use LIFETIME NON-TOBACCO USER 08/13/2013 [facility] History of tobacco use LIFETIME NON TOBACCO USER 07/09/2009 [facility] History of tobacco use LIFETIME NON TOBACCO USER 07/26/2008 [facility] History of tobacco use LIFETIME NON TOBACCO USER 04/18/2007 [facility] History of tobacco use FORMER TOBACCO USER 7Y OR GREATER 08/30/2006 [facility] History of tobacco use LIFETIME NON TOBACCO USER 06/30/2006 [facility] History of tobacco use HF V9 CURRENT [id number] 09/13/2002 28 years ago [facility] Plan of Care List of future care activities from Department of [facility] facilities. Additional future care activities may be listed in the Assessment and Plan section. Date/Time Care Activity Care Activity Detail Facili ty 02/21/2024 AMBULATORY - MEDICINE AMBULATORY - MEDICI NE [facility] 02/24/2024 AMBULATORY - MEDICINE AMBULATORY - MEDICI NE [facility] 02/24/2024 AMBULATORY - MEDICINE AMBULATORY - MEDICI NE [facility] 03/02/2024 AMBULATORY - REHAB MEDICINE AMBULATORY - REHAB MEDICINE [facility] 07/31/2024 AMBULATORY - SURGERY AMBULATORY - SURGERY [facility] 01/18/2024 Consult Order COMMUNITY CARE-ECHOCARDIOGRAPHY Cons Transportation Aid's Choice [facility] 01/19/2024 Consult Order COMMUNITY CARE-D ERMATOLOGY Cons Transportation Aid's Choice [facility] 01/28/2024 Laboratory - Local Delivery Driver ry Order TROPONIN I, HS PLASMA STAT WC [facility] 01/31/2024 Consult Order CARDIAC REHAB OU TPT Cons Bedside [facility] 01/31/2024 Consult Order CARDIOLOGY [facility] OUTPT Cons Transportation Aid's Choice [facility] Advance Directives List of completed, amended, or rescinded Advance Directives on record at [facility] facilities. An actual copy of the Directive is not included. Date Advance Directive Provider Source 08/30/2006 [facility]VANCE DIRECTIVE ARGENIS CRAMER [facility]
--- OUTSIDE RECORDS SUMMARY | 2024-02-17 12:46 | XMS_ITS | Encounter Summary ---
Author Name [facility] [place] [facility] [place] Address [address] [place] [address] Care Team Providers Care Press Operator Name Role Phone SARIAH GOMES Primary Care [...] PART B Sep 09, 2002 PART B [id number] [phone] JOAQUIN COUGHLIN S PATIENT MEDICARE (WNR) MEDICARE (M) PART A Sep 09, 2002 PART A [id number] JOAQUIN COUGHLIN S PATIENT MEDICARE (WNR) MEDICARE (M) PART A Sep 09, 2002 PART A [id number] JOAQUIN COUGHLIN S PATIENT MEDICARE (WNR) MEDICARE (M) PART B Sep 09, 2002 PART B [id number] JOAQUIN COUGHLIN S PATIENT Selected Encounter This section includes the information on record at [place] for the Encounter. Date/Time Encounter Type Encounter Description Reason Pro vider Source Jan 26, 2024 12:27 PM Outpatient Encounter TELEPHONE/SURGERY IHE Encounter Template Text not used by [place] Plan of Treatment: Future Appointments (+ 6 months) and Future Tests (+/- 45 days) The Plan of Treatment section includes future care activities for the [facility] [place] [facility] This section includes future appointments and future orders which are active, pending or scheduled. Future Appointments This section includes appointments that were scheduled to occur 6 months from the date of the Encounter, up to a maximum of 20 appointments. The data comes from all [facility]. Appointment Date/Time Appointment Type Appointme nt Facility Name Jan 27, 2024 11:47 AM AMBULATORY - NONE [facility] Feb 21, 2024 10:00 AM AMBULATORY [facility] Feb 24, 2024 12:15 PM AMBULATORY - MEDICINE [facility] Feb 24, 2024 01:00 PM AMBULATORY - MEDICINE [facility] Mar 02, 2024 01:00 PM AMBULATORY - REHAB MEDICIN E [facility] Active, Pending, and Scheduled Orders This section includes a listing of several types of active, pending, and scheduled orders, including clinic medications orders, diagnostic test orders, procedure orders and consult orders; where the start date of the order is 45 days before the date of the Encounter or 45 days after the date of theEncounter. The data comes from all [facility]. Test Date/Time Test Type Test Details Facility Name Jan 18, 2024 04:23 PM Consult Order COMMUNITY CARE-ECHOCARDIOGRAPHY Cons Test Consultant's Choice [facility] Jan 19, 2024 12:10 PM Consult Order COMMUNITY CARE-DERMATOLOGY [facility] Test Consultant's [facility] Jan 28, 2024 02:00 AM Laboratory - Chemistry Order TROPONIN I, HS PLASMA STAT WC [facility] Jan 31, 2024 09:30 AM Consult Order CARDIAC REHAB OUTPT Cons Bedside [facility] Jan 31, 2024 10:13 AM Consult Order CARDIOLOGY INTERVENTIONAL CLINIC OUTPT Cons Test Consultant's Choice [facility] Lab Results: +/- 30 days of the encounter This section includes the Chemistry and Hematology Lab Results on record with [place] for the patient. Radiology Reports and Pathology Reports are provided separately, in subsequent sections. Lab Results This section contains the Chemistry/Hematology Results that were resulted 30 days before or 30 daysafter the date of the Encounter. Date/Time Source Result Type Result - Unit Interpretation Reference Range Comment Jan 31, 2024 10:50 AM [facility] HEMOGLOBIN A1C Specimen Type: BLOOD Comment: [...] Jan 31, 2024 10:13 AM Reporting Lab: [facility] [phone] Performing Lab: [facility] [phone] HEMOGLOBIN A1C 5.4 4.0-6.0 Jan 31, 2024 10:50 AM [facility] LIPID PANEL,FASTING Specimen Type: PLASMA No comment entered. Ordering Provider: JULIET SMART Report Released Date/Time: Jan 31, 2024 10:13 AM Reporting Lab: [facility] [phone] Performing Lab: [facility] [address] CHOLESTEROL 125 mg/dL <199 TRIGLYCERIDE 95 mg/dL <149 .HDL 37 mg/dL L >40 LDL CALCULATION 69 mg/dL <99 VLDL CALCULATION 19 mg/dL <29 NON HDL CHOLESTEROL 88 mg/dL <129 Jan 31, 2024 07:29 AM [facility] CBC Specimen Type: BLOOD No comment entered. Ordering Provider: BASHIR CARVAJAL Report Released Date/Time: Jan 30, 2024 01:03 PM Reporting Lab: [facility] [phone] Performing Lab: [facility] [phone] WBC 7.3 4.0-11.0 RBC 3.83 L 4.60-6.20 HGB 11.4 g/dL L 13.5-17.9 HCT 35.1 L 41.0-54.0 MCV 91.6 fL 80.0-100.0 MCH 29.8 pg 27.0-33.0 MCHC 32.5 g/dL 32.0-37.5 PLT 193 150-400 MPV 10.7 fL 9.1-13.0 RDW 12.2 11.5-14.5 Jan 31, 2024 07:29 AM [facility] BASIC METABOLIC PANEL+MG Specimen Type: PLASMA No comment entered. Ordering Provider: BASHIR CARVAJAL Report Released Date/Time: Jan 30, 2024 01:03 PM Reporting Lab: [facility] [address] Performing Lab: [facility] [phone] CREATININE 1.3 mg/dL H 0.7-1.2 UREA NITROGEN 24 mg/dL 8-26 GLUCOSE 91 mg/dL 70-100 SODIUM 138 mmol/L 136-145 POTASSIUM 4.1 mmol/L 3.5-5.1 CHLORIDE 108 mmol/L H 98-107 CO2 23 mmol/L 22-29 CALCIUM 8.8 mg/dL 8.4-10.2 MAGNESIUM 2.1 mg/dL 1.6-2.6 ANION GAP 7 mmol/L 5-15 .CREAT EGFR(CKD-EPI) 54 L >60 Jan 30, 2024 10:37 AM [facility] POC ACT Specimen Type: BLOOD No comment entered. Ordering Provider: RODO CHRISTY Report Released Date/Time: Jan 30, 2024 10:43 AM Reporting Lab: [facility] [phone] Performing Lab: [facility] [address] POC ACT 241 s H 84-139 Jan 30, 2024 10:08 AM [facility] POC ACT Specimen Type: BLOOD No comment entered. Ordering Provider: RODO CHRISTY Report Released Date/Time: Jan 30, 2024 10:14 AM Reporting Lab: [facility] [phone] Performing Lab: [facility] [address] POC ACT 289 s H 84-139 Jan 30, 2024 09:34 AM [facility] POC ACT Specimen Type: BLOOD No comment entered. Ordering Provider: RODO CHRISTY Report Released Date/Time: Jan 30, 2024 10:14 AM Reporting Lab: [facility] [phone] Performing Lab: [facility] [address] POC ACT 294 s H 84-139 Jan 30, 2024 05:37 AM [facility] HEPARIN APTT Specimen Type: PLASMA No comment entered. Ordering Provider: BASHIR CARVAJAL Report Released Date/Time: Jan 29, 2024 09:43 PM Reporting Lab: [facility] [phone] Performing Lab: [facility] [address] HEPARIN APTT 83.2 s 48.0-92.0 Jan 30, 2024 05:37 AM [facility] BASIC METABOLIC PANEL+MG Specimen Type: PLASMA No comment entered. Ordering Provider: BASHIR CARVAJAL Report Released Date/Time: Jan 29, 2024 12:19 PM Reporting Lab: [facility] [phone] Performing Lab: [facility] [address] CREATININE 1.4 mg/dL H 0.7-1.2 UREA NITROGEN 27 mg/dL H 8-26 GLUCOSE 95 mg/dL 70-100 SODIUM 139 mmol/L 136-145 POTASSIUM 4.2 mmol/L 3.5-5.1 CHLORIDE 109 mmol/L H 98-107 CO2 24 mmol/L 22-29 CALCIUM 9.0 mg/dL 8.4-10.2 MAGNESIUM 2.1 mg/dL 1.6-2.6 ANION GAP 6 mmol/L 5-15 .CREAT EGFR(CKD-EPI) 49 L >60 Jan 29, 2024 09:02 PM [facility] HEPARIN APTT Specimen Type: PLASMA Comment: Critical Value Reported To: Tomasa Delcid PharmD 01/29/24 @[address] [place] [address]. Critical value report confirmed. Ordering Provider: MERY SAMUEL Report Released Date/Time: Jan 29, 2024 03:00 PM Reporting Lab: [facility] [phone] Performing Lab: [facility] [address] HEPARIN APTT 214.6 s HH 48.0-92.0 Jan 29, 2024 06:24 AM [facility] BASIC METABOLIC PANEL+MG Specimen Type: PLASMA No comment entered. Ordering Provider: BASHIR CARVAJAL Report Released Date/Time: Jan 28, 2024 04:36 PM Reporting Lab: [facility] [address] Performing Lab: [facility] [address] CREATININE 1.6 mg/dL H 0.7-1.2 UREA NITROGEN 27 mg/dL H 8-26 GLUCOSE 92 mg/dL 70-100 SODIUM 140 mmol/L 136-145 POTASSIUM 4.2 mmol/L 3.5-5.1 CHLORIDE 110 mmol/L H 98-107 CO2 25 mmol/L 22-29 CALCIUM 8.8 mg/dL 8.4-10.2 MAGNESIUM 2.1 mg/dL 1.6-2.6 ANION GAP 5 mmol/L 5-15 .CREAT EGFR(CKD-EPI) 42 L >60 Jan 28, 2024 05:54 AM [facility] EXTRA PURPLE TUBE Specimen Type: BLOOD No comment entered. Ordering Provider: RODO CHRISTY Report Released Date/Time: Jan 28, 2024 05:54 AM Reporting Lab: [facility] [address] Performing Lab: [facility] [address] EXTRA PURPLE TUBE RECEIVED Jan 28, 2024 05:53 AM [facility] ALBUMIN Specimen Type: PLASMA No comment entered. Ordering Provider: BASHIR CARVAJAL Report Released Date/Time: Jan 27, 2024 04:49 PM Reporting Lab: [facility] [address] Performing Lab: [facility] [address] ALBUMIN 3.5 g/dL 3.5-5.2 Jan 28, 2024 05:53 AM [facility] BASIC METABOLIC PANEL+MG Specimen Type: PLASMA No comment entered. Ordering Provider: BASHIR CARVAJAL Report Released Date/Time: Jan 27, 2024 05:44 PM Reporting Lab: [facility] [address] Performing Lab: [facility] [address] CREATININE 1.4 mg/dL H 0.7-1.2 UREA NITROGEN 28 mg/dL H 8-26 GLUCOSE 92 mg/dL 70-100 SODIUM 140 mmol/L 136-145 POTASSIUM 4.4 mmol/L 3.5-5.1 CHLORIDE 109 mmol/L H 98-107 CO2 23 mmol/L 22-29 CALCIUM 8.8 mg/dL 8.4-10.2 MAGNESIUM 2.1 mg/dL 1.6-2.6 ANION GAP 8 mmol/L 5-15 .CREAT EGFR(CKD-EPI) 49 L >60 Jan 28, 2024 05:52 AM [facility] TROPONIN I, HS Specimen Type: PLASMA Comment: Critical value previously reported on patient. Ordering Provider: BRANDON MEJIA Report Released Date/Time: Jan 27, 2024 09:15 PM Reporting Lab: [facility] [address] Performing Lab: [facility] [address] TROPONIN I, HS 128 HH <35 Jan 28, 2024 12:35 AM [facility] COVID-19 DIAGNOSTIC PANEL (CEPHEID) Specimen Type: NASOPHARYNGEAL Comment: Cepheid GeneXpert (618) Ordering Provider: LUCAS HAWTHORNE Report Released Date/Time: Jan 27, 2024 04:28 PM Reporting Lab: [facility] [address] Performing Lab: [facility] [address] COVID-19 (CEPHEID) Not Detected Not Detected Jan 28, 2024 12:35 AM [facility] HEPARIN APTT Specimen Type: PLASMA Comment: Critical Value Reported To: Deena Oliveros PharmD 01/28/24 @0110 HV. Critical value report confirmed. Ordering Provider: NATALIE ORDOÑEZ Report Released Date/Time: Jan 27, 2024 07:18 PM Reporting Lab: [facility] [address] Performing Lab: [facility] [address] HEPARIN APTT 133.9 s HH 48.0-92.0 Jan 28, 2024 12:35 AM [facility] TROPONIN I, HS Specimen Type: PLASMA Comment: Critical value previously reported on patient. Ordering Provider: BRANDON MEJIA Report Released Date/Time: Jan 27, 2024 09:15 PM Reporting Lab: [facility] [phone] Performing Lab: [facility] [address] TROPONIN I, HS 158 HH <35 Jan 27, 2024 09:22 PM [facility] TROPONIN I, HS Specimen Type: PLASMA Comment: Critical value previously reported on patient. Ordering Provider: BASHIR CARVAJAL Report Released Date/Time: Jan 27, 2024 08:38 PM Reporting Lab: [facility] [address] Performing Lab: [facility] [address] TROPONIN I, HS 146 HH <35 Jan 27, 2024 06:52 PM [facility] TROPONIN I, HS Specimen Type: PLASMA Comment: Critical Value Reported To: Brandon Mejia MD 01/27/24 @1950 KL. Critical value report confirmed. Ordering Provider: BASHIR CARVAJAL Report Released Date/Time: Jan 27, 2024 04:54 PM Reporting Lab: [facility] [address] Performing Lab: [facility] [address] TROPONIN I, HS 136 HH <35 Jan 27, 2024 06:52 PM [facility] CBC Specimen Type: BLOOD No comment entered. Ordering Provider: BASHIR CARVAJAL Report Released Date/Time: Jan 27, 2024 04:54 PM Reporting Lab: [facility] [address] Performing Lab: [facility] [address] WBC 6.0 4.0-11.0 RBC 3.91 L 4.60-6.20 HGB 12.1 g/dL L 13.5-17.9 HCT 36.5 L 41.0-54.0 MCV 93.4 fL 80.0-100.0 MCH 30.9 pg 27.0-33.0 MCHC 33.2 g/dL 32.0-37.5 PLT 177 150-400 MPV 10.7 fL 9.1-13.0 RDW 12.4 11.5-14.5 Jan 27, 2024 06:52 PM [facility] BASIC METABOLIC PANEL+MG Specimen Type: PLASMA No comment entered. Ordering Provider: BASHIR CARVAJAL Report Released Date/Time: Jan 27, 2024 04:54 PM Reporting Lab: [facility] [address] Performing Lab: [facility] [address] CREATININE 1.3 mg/dL H 0.7-1.2 UREA NITROGEN [...] and tobacco- related health factors from the [place] facility where the Encounter took place. Current Smoking Status This section includes the most current smoking, or tobacco-related health factor, from the [place] facility where the Encounter took place. Date/Time Current Smoking Status Comment Facil ity Dec 14, 2023 11:30 AM VA-TOBACCO QUIT 15 YRS OR MORE [facility] Tobacco Use History This section includes a history of the smoking, or tobacco-related health factors, that were collected on or before the date of the Encounter. The data comes from the [place] facility where the Encounter took place. Date/Time Smoking Status/Tobacco Use Comment F acility Dec 14, 2023 11:30 AM VA-TOBACCO QUIT 15 YRS OR MORE [facility] Oct 13, 2022 01:30 PM VA-TOBACCO FORMER USER [facility] Oct 13, 2022 01:30 PM VA-TOBACCO QUIT 15 YRS OR MORE [facility] Jul 27, 2021 10:00 AM VA-TOBACCO FORMER USER [facility] Jul 27, 2021 10:00 AM VA-TOBACCO QUIT 15 YRS OR MORE [facility] Jan 02, 2020 09:00 AM VA-TOBACCO FORMER USER [facility] Jan 02, 2020 09:00 AM VA-TOBACCO QUIT 15 YRS OR MORE [facility] Jul 21, 2018 03:00 PM VA-TOBACCO FORMER USER [facility] Jul 21, 2018 03:00 PM VA-TOBACCO QUIT 15 YRS OR MORE [facility] Dec 24, 2016 08:01 AM FORMER TOBACCO USER 7Y OR GREATE R [facility] Dec 23, 2015 08:23 AM FORMER TOBACCO USE >1Y <7Y [facility] Dec 26, 2014 10:32 AM FORMER TOBACCO USER 7Y OR GREATE R [facility] August 13, 2013 08:22 AM LIFETIME NON-TOBACCO USER [facility] August 30, 2006 08:38 AM FORMER TOBACCO USER 7Y OR GREATE R [facility] Advance Directives: All historical and current Section Date Range: From patient's date of to the date document was created. This section includes ALL of a patient's completed or amended [place] Advance and Rescinded Directives. The entries below indicate that a directive exists for the patient, but an actual copy is not included with this document. The data comes from all [facility]. Date Advance Directives Provider Source August 30, 2006 ADVANCE DIRECTIVE ARGENIS CRAMER [facility] Pathology Reports: +/- 30 days of [...] the Encounter. The data comes from all [place] treatment facilities. Date/Time Pathology Report Provider Source Jan 06, 2024 11:16 AM [facility] SURGICAL PATHOL OGY REPORT: LOCAL TITLE: LR SURGICAL PATHOLOGY REPORT STANDARD TITLE: PATHOLOGY REPORT DATE OF NOTE: JAN 06, 2024@11:16:39 ENTRY DATE: JAN 06, 2024@11:16:39 AUTHOR: JOSE REESE COSIGNER: URGENCY: STATUS: COMPLETED $APHDR Reporting Lab: [facility] [CLIA# [id number]] [place] [address] - - - - - - - [...] - PATHOLOGY REPORT Accession No. [id number] - - - - - - - [...] - PATHOLOGY REPORT Accession No. [id number] - - - - - - - [...] 0.1 cm. The specimen is inked. CE. (D)[facility] MICROSCOPIC DESCRIPTION: Microscopic examination performed. CI. 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 STAFF PATHOLOGIST Signed Jan 06, 2024@11:16 Performing Laboratory: Surgical Pathology Report Performed By: [facility] [CLIA# [id number]] [place] [address] $FTR - - - - - - [...] - - MADYSON,GERI NUNEZ STANDARD FORM 515 ID:[id number] SEX:M :[id number] AGE: 88 LOC:[id number] PCP: Sariah Gomes MD /shelly/ JOSE REESE M.D. STAFF PATHOLOGIST Signed: 01/06/2024 11:16 JOSE REESE [facility] Encounter Notes: All associated encounter notes This section contains the clinical notes associated to the Encounter. Date/Time Encounter Note(s) Provider Source Jan 26, 2024 12:27 PM DERMATOLOGY [facility] OUTPATIENT NOTE: LOCAL TITLE: DERMATOLOGY CLINIC NURSING NOTE STANDARD TITLE: DERMATOLOGY NURSING OUTPATIENT NOTE DATE OF NOTE: JAN 26, 2024@12:27 ENTRY DATE: JAN 26, 2024@12:27:19 AUTHOR: CHONG LE EXP COSIGNER: URGENCY: STATUS: COMPLETED DERMATOLOGY CLINIC NURSING NOTE Has ADDENDA Dermatology Clinic Nursing Note Allergies: Patient has answered NKA No new Allergies. Pre-op Nursing Note Patient Information: Premedications abx prior to dental work? No Pacemaker present? No Defibrillator present? No Deep Brain Stimulator present? No Other Implantable Device present? No Presently taking anticoagulants? Yes. aspirin Not discontinued preoperatively. aware. Bleeding or clotting disorder? No Covid symptoms on appt date? [place] understands should he have flu/covid symptoms on [...] and procedure information including my contact number. /nolan LE RN Dermatology Nurse Surgery Coordinator Signed: 01/26/2024 12:46 02/16/2024 ADDENDUM STATUS: COMPLETED See note from Dr. Richard duboisan opted to monitor site discussed 02/03/24. VSE order cancelled for this reason. /nolan LE RN Dermatology Nurse Surgery Coordinator Signed: 02/16/2024 09:38 CHONG LE [facility]
== END 2024-02-17 12:43 | disposition home or self-care (01) ==
LOC: RAD 12:43
PROVIDERS: PCP Internal Medicine; Visit Provider Internal Medicine
DX: R94.31 Abnormal electrocardiogram [ECG] [EKG] (principal); I35.1 Nonrheumatic aortic (valve) insufficiency; I34.0 Nonrheumatic mitral (valve) insufficiency
CPT/HCPCS: 93306

== ENCOUNTER 2024-03-10 17:59 | Emergency (ER) | payer MEDICARE, OTHER, SELFPAY ==
[2024-03-10 18:41] VITALS: BP 152/72; PULSE 63; RESP 16; TEMP 36.6; O2SAT 98; BMI 25.0
--- NOTE | 2024-03-10 19:16 | ED.GENADULT ---
HPI - General Adult General Chief complaint: Abdominal Pain Stated complaint: abdominal pain Time Seen by Provider: 03/10/24 19:16 History of Present Illness HPI narrative: Patient reports abdominal pain for past three days. Does get constipated and takes MiraLAX as needed but pain is still present. Denies nausea or difficulty with urination. 88-year-old man presenting to the emergency department complain of cramping abdominal pain over the last 3 days or so. Took a dose of MiraLax today but not yesterday It has been 3 or 4 days since and bowel movement. No urinary symptoms. No hematuria. No fever. Tried to have a bowel movement at work today and could not. Too much work, too uncomfortable. Spouse notes him to have a rather high pain tolerance and so this is particularly concerning. Related Data Home Medications ?Medication ?Instructions ?Recorded ?Confirmed aspirin .ROUTE 03/10/24 atorvastatin 40 mg tablet 40 mg PO DAILY 03/10/24 03/10/24 clopidogrel 75 mg tablet 75 mg PO DAILY 03/10/24 03/10/24 isosorbide mononitrate 20 mg tablet 30 mg PO BID 03/10/24 03/10/24 lisinopril 20 1 tab PO DAILY 03/10/24 03/10/24 mg-hydrochlorothiazide 25 mg tablet metoprolol succinate 25 mg 12.5 mg PO DAILY 03/10/24 03/10/24 tablet,extended release 24 hr Allergies Allergy/AdvReac Type Severity Reaction Status Date / Time No Known Drug Allergies Allergy Verified 01/26/24 09:49 Review of Systems Status of ROS: Reports: 6 or more systems reviewed and unremarkable except as noted in History and below [facility] Social History Smoking Status: Former smoker Do you use any of these nicotine containing products: None How often do you have a drink containing alcohol: monthly or less AUDIT-C Alcohol total score: 1 Non-prescribed substance use: denies use service: Yes Exam Narrative: Exam Narrative: Pleasant. Moving as if a little uncomfortable. Easily conversant. Breathing easily. Lungs appear to be clear. Heart in regular rate and rhythm. Abdomen with present bowel sounds is soft but appears full. Mildly tender through the low abdomen. More so in the right abdomen. No masses appreciated. Well-perfused peripherally without edema. Const: Vital Signs, click to edit/add: Vital Signs - 24 hr 03/10/24 18:41 Temperature 98 F Pulse Rate [Pulse Oximeter] 63 Respiratory Rate 16 Blood Pressure [Ri ght Upper Arm] 152/72 H Pulse Oximetry 98 Documenting provider has reviewed patient's vital signs: yes Course Vital Signs Vital signs: Initial Vital Signs Temperature 98 F 03/10/24 18:41 Temperature Source Temporal Artery Scan 03/10/24 18:41 Pulse Rate 63 03/10/24 18:41 Respiratory Rate 16 03/10/24 18:41 Blood Pressure 152/72 H 03/10/24 18:41 Blood Pressure Mean 98 03/10/24 18:41 Pulse Oximetry 98 03/10/24 18:41 Vital Signs Temperature 98 F 03/10/24 18:41 Pulse Rate 63 03/10/24 18:41 Respiratory Rate 16 03/10/24 18:41 Blood Pressure 152/72 H 03/10/24 18:41 Pulse Oximetry 98 03/10/24 18:41 Temperature 98 F 03/10/24 18:41 Pulse Rate 63 03/10/24 18:41 Respiratory Rate 16 03/10/24 18:41 Blood Pressure 152/72 H 03/10/24 18:41 Pulse Oximetry 98 03/10/24 18:41 Medical Decision Making MDM Narrative Medical decision making narrative: Symptoms might include urinary tract infection or ureteral stone and colic. History would suggest constipation and related pain. Diverticulitis I suppose is in differential. No symptoms into his legs and otherwise seems atypical for dissection. Check labs for red flags and abdominal x-ray to verify what I suspect is constipation. By my read abdomen with well-formed stool and excessive in the colon. Radiology over-read concurs INDICATION: Lower right abdominal pain. Constipation? FINDINGS: There is a moderate volume stool within the colon. The bowel gas pattern is within normal limits. There are a few calcified pelvic phleboliths. The lung bases are clear. IMPRESSION: Moderate colonic stool volume Labs are reassuring. I think less likely infectious etiology and story is consistent with constipation; imaging as well. Discussed being more aggressive with [id number] options for therapy. See patient discharge plan for further discussion Do focus on hydration. I would take multiple doses of MiraLax each in at least 8 oz of liquid over the course of the day. Probably start off with 3 doses a day. If you have hard stool that you are having trouble getting out, I would place an enema and hold it for whatever time you can manage. Repeat in an hour if no good result. Alternatively could place a suppository overnight. Otherwise from above magnesium citrate might be more effective even than MiraLax. Could drink a bottle of this and repeat the next day if no good result. I would then take MiraLax regularly adjusting to stool consistency over the next week or 2. Return for marked increase in persistent pain, repeated vomiting. Medical Records Medical records reviewed: Yes I reviewed the patient's medical records Lab Data Lab results reviewed: Yes I reviewed the patient's lab results Labs: Lab Results 03/10/24 03/10/24 Range/Units 19:37 20:07 WBC 9.70 (4.50-11.00) K/uL RBC 3.73 L (4.30-5.90) m/uL Hgb 11.3 L (13.5-17.5) gm/dL Hct 34.4 L (37.0-53.0) % MCV 92 (80-100) fL MCH 30 (26-34) pg MCHC 33 (32-36) gm/dL RDW Coeff of [place] 12.2 (11.5-15.5) % Plt Count 169 (140-440) K/uL Neut % (Auto) 78.1 H (42.0-72.0) % Lymph % (Auto) 10.9 L (20-44) % Moody % (Auto) 9.5 (0.0-11.0) % Eos % (Auto) 1.1 (0.0-7.0) % Baso % (Auto) 0.4 (0.0-3.0) % Neut # (Auto) 7.60 H (1.7-7.0) K/uL Lymph # (Auto) 1.10 (0.90-2.90) K/uL Moody # (Auto) 0.90 (0.00-0.90) K/UL Eos # (Auto) 0.11 (0.00-0.50) K/uL Baso # (Auto) 0.04 (0.00-0.30) K/uL Abs Immat Gran (auto) 0.00 (0.00-0.30) K/uL Imm/Tot Granulo (auto) 0.0 % Urine Color Yellow (Yellow) Urine Appearance Clear (Clear) Urine pH 6.0 (5.0-8.5) Ur Specific Gust[place] 1.020 (1.000-1.030) Urine Protein Negative (Negative) Urine Glucose (UA) Negative (Negative) Urine Ketones Negative (Negative) Urine Blood Trace-intact A (Negative) Urine Nitrite Negative (Negative) Urine Bilirubin Negative (Negative) Urine Urobilinogen 0.2 (0.2-1.0) Ur Leukocyte Esterase Negative (Negative) Urine RBC 2-5 A (0-2) Urine WBC 0-2 (0-5) Ur Squamous Epith Cells None (None-Few) Urine Bacteria None (None) Discharge Plan Discharge Clinical Impression: Abdominal pain, Constipation Patient Disposition: Home w/ Parent or Adult Condition: Stable Additional Instructions: Do focus on hydration. I would take multiple doses of MiraLax each in at least 8 oz of liquid over the course of the day. Probably start off with 3 doses a day. If you have hard stool that you are having trouble getting out, I would place an enema and hold it for whatever time you can manage. Repeat in an hour if no good result. Alternatively could place a suppository overnight. Otherwise from above magnesium citrate might be more effective even than MiraLax. Could drink a bottle of this and repeat the next day if no good result. I would then take MiraLax regularly adjusting to stool consistency over the next week or 2. Return for marked increase in persistent pain, repeated vomiting. Prescriptions: No Action isosorbide mononitrate 20 mg tablet 30 mg PO BID Rx Instructions: give doses 7 hrs apart atorvastatin 40 mg tablet 40 mg PO DAILY clopidogrel 75 mg tablet 75 mg PO DAILY lisinopril-hydrochlorothiazide 20-25 mg tablet 1 tab PO DAILY aspirin [Adult Aspirin Regimen] .ROUTE metoprolol succinate 25 mg tablet extended release 24 hr 12.5 mg PO DAILY Follow Up/Referrals: Sariah Culver MD [Primary Care Provider] - Stand Alone Forms: [employer] Info Instructions
--- NOTE | 2024-03-10 19:25 | CRLHL7_ITS ---
For Patients: As a result of the Century Cures Act, medical imaging exams and procedure reports are released immediately into your electronic medical record. You may view this report before your referring provider. If you have questions, please contact your health care provider. INDICATION: Lower right abdominal pain. Constipation? FINDINGS: There is a moderate volume stool within the colon. The bowel gas pattern is within normal limits. There are a few calcified pelvic phleboliths. The lung bases are clear. IMPRESSION: Moderate colonic stool volume. Dictated by Niraj Cohen MD @ 03/10/2024 8:03:23 PM (Electronically Signed)
--- OUTSIDE RECORDS SUMMARY | 2024-03-10 19:35 | XMS_ITS | Encounter Summary ---
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 This section includes future appointments and future orders which are active, pending or scheduled. Future Appointments This section includes appointments that were scheduled to occur 6 months from the date of the Encounter, up to a maximum of 20 appointments. The data comes from all [place] treatment facilities. Appointment Date/Time Appointment Type Appointme nt Facility Name Feb 17, 2024 01:00 PM AM[facility] NONE [facility] Feb 21, 2024 10:00 AM AMBULATORY - MEDICINE [facility] Feb 24, 2024 12:15 PM AMBULATORY - MEDICINE [facility] Feb 24, 2024 01:00 PM AMBULATORY - MEDICINE [facility] Mar 02, 2024 01:00 PM AMBULATORY - REHAB MEDICIN E [facility] Apr 26, 2024 10:00 AM AMBULATORY - MEDICINE [facility] Active, Pending, and Scheduled Orders This section includes a listing of several types of active, pending, and scheduled orders, including clinic medications orders, diagnostic test orders, procedure orders and consult orders; where the start date of the order is 45 days before the date of the Encounter or 45 days after the date of theEncounter. The data comes from all [facility]. Test Date/Time Test Type Test Details Facility Name Jan 18, 2024 04:23 PM Consult Order COMMUNITY CARE-ECHOCARDIOGRAPHY Cons Varnish [employer] [facility] Choice [facility] Jan 19, 2024 12:10 PM Consult Order COMMUNITY CARE-DERMATOLOGY Cons [facility] Jan 28, 2024 02:00 AM Laboratory - Chemi stry Order TROPONIN I, HS PLASMA STAT [facility] Mar 01, 2024 03:28 PM Consult Order IFC TRAVEL ING [facility] Cons [facility]arnish [facility] Lab Results: +/- 30 days [...] Range Comment Jan 31, 2024 10:50 AM [facility] HEMOGLOBIN A1C Specimen Type: BLOOD Comment: [...] Jan 31, 2024 10:13 AM Reporting Lab: [facility] [address] Performing Lab: [facility] [address] HEMOGLOBIN A1C 5.4 4.0-6.0 Jan 31, 2024 10:50 AM [facility] LIPID PANEL,FASTING Specimen Type: PLASMA No comment entered. Ordering Provider: JULIET SMART Report Released Date/Time: Jan 31, 2024 10:13 AM Reporting Lab: [facility] [address] Performing Lab: [facility] [address] CHOLESTEROL 125 mg/dL <199 TRIGLYCERIDE 95 mg/dL <149 .HDL 37 mg/dL L >40 LDL CALCULATION 69 mg/dL <99 VLDL CALCULATION 19 mg/dL <29 NON HDL CHOLESTEROL 88 mg/dL <129 Jan 31, 2024 07:29 AM [facility] CBC Specimen Type: BLOOD No comment entered. Ordering Provider: BASHIR CARVAJAL Report Released Date/Time: Jan 30, 2024 01:03 PM Reporting Lab: [facility] [address] Performing Lab: [facility] [address] WBC 7.3 4.0-11.0 RBC 3.83 L 4.60-6.20 HGB 11.4 g/dL L 13.5-17.9 HCT 35.1 L 41.0-54.0 MCV 91.6 fL 80.0-100.0 MCH 29.8 pg 27.0-33.0 MCHC 32.5 g/dL 32.0-37.5 PLT 193 150-400 MPV 10.7 fL 9.1-13.0 RDW 12.2 11.5-14.5 Jan 31, 2024 07:29 AM [facility] BASIC METABOLIC PANEL+MG Specimen Type: PLASMA No comment entered. Ordering Provider: BASHIR CARVAJAL Report Released Date/Time: Jan 30, 2024 01:03 PM Reporting Lab: [facility] [address] Performing Lab: [facility] [address] CREATININE 1.3 mg/dL H 0.7-1.2 UREA NITROGEN 24 mg/dL 8-26 GLUCOSE 91 mg/dL 70-100 SODIUM 138 mmol/L 136-145 POTASSIUM 4.1 mmol/L 3.5-5.1 CHLORIDE 108 mmol/L H 98-107 CO2 23 mmol/L 22-29 CALCIUM 8.8 mg/dL 8.4-10.2 MAGNESIUM 2.1 mg/dL 1.6-2.6 ANION GAP 7 mmol/L 5-15 .CREAT EGFR(CKD-EPI) 54 L >60 Jan 30, 2024 10:37 AM [facility] POC ACT Specimen Type: BLOOD No comment entered. Ordering Provider: RODO CHRISTY Report Released Date/Time: Jan 30, 2024 10:43 AM Reporting Lab: [facility] [address] Performing Lab: [facility] [address] POC ACT 241 s H 84-139 Jan 30, 2024 10:08 AM [facility] POC ACT Specimen Type: BLOOD No comment entered. Ordering Provider: RODO CHRISTY Report Released Date/Time: Jan 30, 2024 10:14 AM Reporting Lab: [facility] [address] Performing Lab: [facility] [address] POC ACT 289 s H 84-139 Jan 30, 2024 09:34 AM [facility] POC ACT Specimen Type: BLOOD No comment entered. Ordering Provider: RODO CHRISTY Report Released Date/Time: Jan 30, 2024 10:14 AM Reporting Lab: [facility] [address] Performing Lab: [facility] [address] POC ACT 294 s H 84-139 Jan 30, 2024 05:37 AM [facility] HEPARIN APTT Specimen Type: PLASMA No comment entered. Ordering Provider: BASHIR CARVAJAL Report Released Date/Time: Jan 29, 2024 09:43 PM Reporting Lab: [facility] [address] Performing Lab: [facility] [address] HEPARIN APTT 83.2 s 48.0-92.0 Jan 30, 2024 05:37 AM [facility] BASIC METABOLIC PANEL+MG Specimen Type: PLASMA No comment entered. Ordering Provider: BASHIR CARVAJAL Report Released Date/Time: Jan 29, 2024 12:19 PM Reporting Lab: [facility] [address] Performing Lab: [facility] [address] CREATININE 1.4 mg/dL H 0.7-1.2 UREA NITROGEN 27 mg/dL H 8-26 GLUCOSE 95 mg/dL 70-100 SODIUM 139 mmol/L 136-145 POTASSIUM 4.2 mmol/L 3.5-5.1 CHLORIDE 109 mmol/L H 98-107 CO2 24 mmol/L 22-29 CALCIUM 9.0 mg/dL 8.4-10.2 MAGNESIUM 2.1 mg/dL 1.6-2.6 ANION GAP 6 mmol/L 5-15 .CREAT EGFR(CKD-EPI) 49 L >60 Jan 29, 2024 09:02 PM [facility] HEPARIN APTT Specimen Type: PLASMA Comment: Critical Value Reported To: Tomasa Delcid PharmD 01/29/24 @[address] [place] [address]. Critical value report confirmed. Ordering Provider: MERY SAMUEL Report Released Date/Time: Jan 29, 2024 03:00 PM Reporting Lab: [facility] [address] Performing Lab: [facility] [address] HEPARIN APTT 214.6 s HH 48.0-92.0 Jan 29, 2024 06:24 AM [facility] BASIC METABOLIC PANEL+MG Specimen Type: PLASMA No comment entered. Ordering Provider: BASHIR CARVAJAL Report Released Date/Time: Jan 28, 2024 04:36 PM Reporting Lab: [facility] [address] Performing Lab: [facility] [address] CREATININE 1.6 mg/dL H 0.7-1.2 UREA NITROGEN 27 mg/dL H 8-26 GLUCOSE 92 mg/dL 70-100 SODIUM 140 mmol/L 136-145 POTASSIUM 4.2 mmol/L 3.5-5.1 CHLORIDE 110 mmol/L H 98-107 CO2 25 mmol/L 22-29 CALCIUM 8.8 mg/dL 8.4-10.2 MAGNESIUM 2.1 mg/dL 1.6-2.6 ANION GAP 5 mmol/L 5-15 .CREAT EGFR(CKD-EPI) 42 L >60 Jan 28, 2024 05:54 AM [facility] EXTRA PURPLE TUBE Specimen Type: BLOOD No comment entered. Ordering Provider: RODO CHRISTY Report Released Date/Time: Jan 28, 2024 05:54 AM Reporting Lab: [facility] [address] Performing Lab: [facility] [address] EXTRA PURPLE TUBE RECEIVED Jan 28, 2024 05:53 AM [facility] ALBUMIN Specimen Type: PLASMA No comment entered. Ordering Provider: BASHIR CARVAJAL Report Released Date/Time: Jan 27, 2024 04:49 PM Reporting Lab: [facility] [address] Performing Lab: [facility] [address] ALBUMIN 3.5 g/dL 3.5-5.2 Jan 28, 2024 05:53 AM [facility] BASIC METABOLIC PANEL+MG Specimen Type: PLASMA No comment entered. Ordering Provider: BASHIR CARVAJAL Report Released Date/Time: Jan 27, 2024 05:44 PM Reporting Lab: [facility] [address] Performing Lab: [facility] [address] CREATININE 1.4 mg/dL H 0.7-1.2 UREA NITROGEN 28 mg/dL H 8-26 GLUCOSE 92 mg/dL 70-100 SODIUM 140 mmol/L 136-145 POTASSIUM 4.4 mmol/L 3.5-5.1 CHLORIDE 109 mmol/L H 98-107 CO2 23 mmol/L 22-29 CALCIUM 8.8 mg/dL 8.4-10.2 MAGNESIUM 2.1 mg/dL 1.6-2.6 ANION GAP 8 mmol/L 5-15 .CREAT EGFR(CKD-EPI) 49 L >60 Jan 28, 2024 05:52 AM [facility] TROPONIN I, HS Specimen Type: PLASMA Comment: Critical value previously reported on patient. Ordering Provider: BRANDON MEJIA Report Released Date/Time: Jan 27, 2024 09:15 PM Reporting Lab: [facility] [address] Performing Lab: [facility] [address] TROPONIN I, HS 128 HH <35 Jan 28, 2024 12:35 AM [facility] COVID-19 DIAGNOSTIC PANEL (CEPHEID) Specimen Type: NASOPHARYNGEAL Comment: Cepheid GeneXpert (618) Ordering Provider: LUCAS HAWTHORNE Report Released Date/Time: Jan 27, 2024 04:28 PM Reporting Lab: [facility] [address] Performing Lab: [facility] [address] COVID-19 (CEPHEID) Not Detected Not Detected Jan 28, 2024 12:35 AM [facility] HEPARIN APTT Specimen Type: PLASMA Comment: Critical Value Reported To: Deena Oliveros PharmD 01/28/24 @0110 HV. Critical value report confirmed. Ordering Provider: NATALIE ORDOÑEZ Report Released Date/Time: Jan 27, 2024 07:18 PM Reporting Lab: [facility] [address] Performing Lab: [facility] [address] HEPARIN APTT 133.9 s HH 48.0-92.0 Jan 28, 2024 12:35 AM [facility] TROPONIN I, HS Specimen Type: PLASMA Comment: Critical value previously reported on patient. Ordering Provider: BRANDON MEJIA Report Released Date/Time: Jan 27, 2024 09:15 PM Reporting Lab: [facility] [address] Performing Lab: [facility] [address] TROPONIN I, HS 158 HH <35 Jan 27, 2024 09:22 PM [facility] TROPONIN I, HS Specimen Type: PLASMA Comment: Critical value previously reported on patient. Ordering Provider: BASHIR CARVAJAL Report Released Date/Time: Jan 27, 2024 08:38 PM Reporting Lab: [facility] [address] Performing Lab: [facility] [address] TROPONIN I, HS 146 HH <35 Jan 27, 2024 06:52 PM [facility] TROPONIN I, HS Specimen Type: PLASMA Comment: Critical Value Reported To: Brandon Mejia MD 01/27/24 @[address] [place] [address]. Critical value report confirmed. Ordering Provider: BASHIR CARVAJAL Report Released Date/Time: Jan 27, 2024 04:54 PM Reporting Lab: [facility] [address] Performing Lab: [facility] [address] TROPONIN I, HS 136 HH <35 Jan 27, 2024 06:52 PM [facility] CBC Specimen Type: BLOOD No comment entered. Ordering Provider: BASHIR CARVAJAL Report Released Date/Time: Jan 27, 2024 04:54 PM Reporting Lab: [facility] [address] Performing Lab: [facility] [address] WBC 6.0 4.0-11.0 RBC 3.91 L 4.60-6.20 HGB 12.1 g/dL L 13.5-17.9 HCT 36.5 L 41.0-54.0 MCV 93.4 fL 80.0-100.0 MCH 30.9 pg 27.0-33.0 MCHC 33.2 g/dL 32.0-37.5 PLT 177 150-400 MPV 10.7 fL 9.1-13.0 RDW 12.4 11.5-14.5 Jan 27, 2024 06:52 PM [facility] BASIC METABOLIC PANEL+MG Specimen Type: PLASMA No comment entered. Ordering Provider: BASHIR CARVAJAL Report Released Date/Time: Jan 27, 2024 04:54 PM Reporting Lab: [facility] [address] Performing Lab: [facility] [address] CREATININE 1.3 mg/dL H 0.7-1.2 UREA NITROGEN [...] 14, 2023 11:30 AM VA-TOBACCO FORMER USER [facility] Tobacco Use History This section includes a history of the smoking, or tobacco-related health factors, that were collected on or before the date of the Encounter. The data comes from the [place] facility where the Encounter took place. Date/Time Smoking Status/Tobacco Use Comment F acility Dec 14, 2023 11:30 AM VA-TOBACCO QUIT 15 YRS OR MORE [facility] Oct 13, 2022 01:30 PM VA-TOBACCO FORMER USER [facility] Oct 13, 2022 01:30 PM VA-TOBACCO QUIT 15 YRS OR MORE [facility] Jul 27, 2021 10:00 AM VA-TOBACCO FORMER USER [facility] Jul 27, 2021 10:00 AM VA-TOBACCO QUIT 15 YRS OR MORE [facility] Jan 02, 2020 09:00 AM VA-TOBACCO FORMER USER [facility] Jan 02, 2020 09:00 AM VA-TOBACCO QUIT 15 YRS OR MORE [facility] Jul 21, 2018 03:00 PM VA-TOBACCO FORMER USER [facility] Jul 21, 2018 03:00 PM VA-TOBACCO QUIT 15 YRS OR MORE [facility] Dec 24, 2016 08:01 AM FORMER TOBACCO USER 7Y OR GREATE R [facility] Dec 23, 2015 08:23 AM FORMER TOBACCO USE >1Y <7Y [facility] Dec 26, 2014 10:32 AM FORMER TOBACCO USER 7Y OR GREATE R [facility] August 13, 2013 08:22 AM LIFETIME NON-TOBACCO USER [facility] August 30, 2006 08:38 AM FORMER TOBACCO USER 7Y OR GREATE R [facility] Advance Directives: All historical and current Section Date Range: From patient's date of to the date document was created. This section includes ALL of a patient's completed or amended [place] Advance and Rescinded Directives. The entries below indicate that a directive exists for the patient, but an actual copy is not included with this document. The data comes from all [facility]. Date Advance Directives Provider Source August 30, 2006 ADVANCE DIRECTIVE [facility] Pathology Reports: +/- 30 days of [...] COSIGNER: URGENCY: STATUS: COMPLETED $APHDR Reporting Lab: [facility] [CLIA# [id number]] [place] [address] - - - - - - - [...] - PATHOLOGY REPORT Accession No. [id number] - - - - - - - [...] - PATHOLOGY REPORT Accession No. [id number] - - - - - - - [...] 0.1 cm. The specimen is inked. CE. (D[place] [place]: Microscopic examination performed. [...] Performing Laboratory: Surgical Pathology Report Performed By: [facility] [CLIA# [id number]] [place] [address] $FTR - - - - - - - - - - - - - - - - - - - - - - - - - - - - - - - - - - - - - - - - (End of report) JOSE REESE MD [facility] Date Jan 06, 2024 - - - - - - - - - - - - - - - - - - - - - - - - - - - - - - - - - - - - - - - - MADYSON,GERI NUNEZ STANDARD FORM 515 ID:[id number] SEX:M :[id number] AGE: 88 LOC:[id number] PCP: Sariah Gomes MD /shelly/ JOSE REESE M.D. STAFF PATHOLOGIST Signed: 01/06/2024 11:16 JOSE REESE [facility] Encounter Notes: All associated encounter notes This section contains the clinical notes associated to the Encounter. Date/Time Encounter Note(s) Provider Source Jan 27, 2024 11:47 AM NONVA NOTE: LOCAL TITLE: COMMUNITY CARE-KENNETH SELF PRESENTING CARE COORD PLAN STANDARD TITLE: NONVA NOTE DATE OF NOTE: JAN 27, 2024@11:47 ENTRY DATE: JAN 27, 2024@11:48:04 AUTHOR: SARA BARBOSA EXP COSIGNER: URGENCY: STATUS: COMPLETED COMMUNITY CARE-[facility]NETH SELF PRESENTING CARE COORD PLAN NOTE Has ADDENDA Emergency Notification Intake Date Presenting to the Facility: Jan Method of Contact: Phone Centralized Call Center Notified Replaced By [facility] Name: Hospital: [facility] Address: City: [place] State: [place] Zip Code: Phone : [facility] Point of Contact: Name: DR AQUINO Chief complaint: UNSTABLE ANGINA Primary Diagnosis: Disposition Unknown at time of intake note entry SEEKING CARDIAC BED FOR TO [facility]. PLEASE CONTACT DR AQUINO @ [phone]. /shelly/ SARA BARBOSA PRINTER OPERATOR Signed: 01/27/2024 11:51 Receipt Acknowledged By: 01/27/2024 11:57 /es/ HORACE ALMANZA RN foundry operator Molding Machine Operator Helper 01/27/2024 ADDENDUM STATUS: COMPLETED At 1152, received a cardiac inpt transfer request from [facility], POC is Dr. Rupert Aquino @ [phone]. Time Buyer reviewed notes in cprs, notes were not available in JLV. At 1205, Time Buyer returned call to Dr. Aquino. Dr. Aquino stated the had been having intermittent chest pain for three weeks. Vitals have been stable, hr in the 50's; however, per cprs, 's hr has been in the 50's on the last couple of visits. Satting in the upper 90's on RA. [place] had a positive stress test yesterday. MD believes the [place] should be admitted on a cardiology unit for an angiogram. Did not have current lab results and heparin has not been started even though the MD stated Cardiology would probably want this done. Time Buyer explained to Dr. Aquino at this time, the [place] did not have any open beds and Time Buyer would need to speak with Leadership for bed availability. Dr. Aquino stated his understanding and would wait for Time Buyer to call back. At 1219, Time Buyer reached out to Leadership with [place]'s information and asking if there would be a bed availble for the [place]. At 1233, Leadership approved a bed for the [place]. At 1237, Time Buyer updated the bed coordinator that Leadership approved a bed for the [place]. At 1239, Cardiology was paged. At 1255, Cardiology returned call. [place] information was given. MD stated he would like to speak with the outside MD but would accept him. Cardiology requesting the admit to 3K step-down. Time Buyer was unable to conference the MDs- asked Cardiology if he would be available at the present number while another attempt was made. Cardiology confirmed he could be reached at his pager number. At 1315, Bed Coordinator informed Cardiology would accept the and would like 3K. Bed Coordinator replied there would be a bed available on 3K for the . At 1308, Cardiology was paged- Conference call began at 1320 and ended at 1328. At 1354, Time Buyer informed AOD via TEAMS the was accepted and would be going to . At 1356, Time Buyer called [facility] and provided the nurse with the receiving case's phone number. Time Buyer informed the Bed Coordinator of the 's ETA. /shelly/ HORACE ALMANZA RN foundry operator Molding Machine Operator Helper Signed: 01/27/2024 14:32 01/30/2024 ADDENDUM STATUS: COMPLETED NOTIFICATION ID: [id number] STATUS: Closed - Approved for 1702 /shelly/ AUTUMN WELDON Behavioral Health Director(AOD) Signed: 01/30/2024 08:15 SARA BARBOSA [facility]
--- OUTSIDE RECORDS SUMMARY | 2024-03-10 19:35 | XMS_ITS | Continuity of Care Document ---
Author Name [facility] Organization [facility] Care Team Providers Care Supervisor Veneer Name Role Phone [facility] Unavailable Unavailable Problems Combined list of problems from Department of Defense and [place] [facility] facilities. It does not include entries that were removed or entered in error. Problem Status Onset Date Problem Type Date of Resolution Comments Source Actinic keratosis Active Condition [facility] Adjustment disorder with mixed emotional features Active Condition 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 Basal cell carcinoma of skin Active Condition [facility] Benign prostatic hyperplasia Active Condition [facility] CAD - Coronary artery disease Active Condition Feb 16, 2024 Entered By: Phil GOMES Comment: NSTEMI, 01/30/2024 had PCI to mid LAD [facility] Cataract, Senile, Unsp Active Condition [facility] Chronic kidney disease stage [address] [facility] Coronary atherosclerosis Active Condition [facility] Dysphagia Active Condition [facility] Former heavy tobacco smoker Active Condition [facility] GERD Active Condition [facility] Hydrocele Nos Active Condition [facility] Hypercholesterolemia * (ICD-9-CM 272.0) Active Condition [facility] Hyperlipidemia Active Condition [facility] Hyperlipidemia * (ICD-9-CM 272.4) Active Condition [facility] Hypermetropia/Hyperopia Active Condition [facility] Hypertension (SNOMED CT 38924418) Active Condition [facility] HYPERTENSION NOS Active Condition [facility] Hypertension, Benign Active Condition [facility] Hypothyroidism (SNOMED CT 39298505) Active Condition 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 Presbyopia Active Condition [facility] PROSTATE-BENING LOC HYPERPLASIA Active Condition [facility] Solitary nodule of lung Active Condition [facility] Diagnosis: ICD-10-CM I25.10 Athscl heart disease of [place] coronary artery w/o ang pctrs Active Diagnosis [facility] Diagnosis: ICD-10-CM Z13.6 Encounter for screening for cardiovascular disorders Active Diagnosis [facility] Diagnosis: ICD-10-CM I21.4 Non-ST elevation (NSTEMI) myocardial infarction Active Diagnosis [facility] Diagnosis: ICD-10-CM I50.9 Heart failure, unspecified Active Diagnosis [facility] Admit Reason: UNSTABLE ANGINA,HEP GTT Active Diagnosis [facility] Diagnosis: ICD-10-CM R94.31 Abnormal electrocardiogram [ECG] [EKG] Active Diagnosis [facility] Diagnosis: ICD-10-CM 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 Diagnosis [facility] Diagnosis: ICD-10-CM D48.5 Neoplasm of uncertain behavior of skin Active Diagnosis [facility] Diagnosis: ICD-10-CM K59.00 Constipation, unspecified Active Diagnosis [facility] Diagnosis: ICD-10-CM Z71.2 Person consulting for explanation of exam or test findings Active Diagnosis [facility] Diagnosis: ICD-10-CM Z71.9 Counseling, unspecified Active Diagnosis [facility] Diagnosis: ICD-10-CM Z23 Encounter for immunization Active Diagnosis [facility] Diagnosis: ICD-10-CM Z46.1 Encounter for fitting and adjustment of hearing aid Active Diagnosis [facility] Diagnosis: ICD-10-CM R13.12 Dysphagia, oropharyngeal phase Active Diagnosis [facility] Diagnosis: ICD-10-CM C44.41 Basal cell carcinoma of skin of scalp and neck Active Diagnosis [facility] Diagnosis: ICD-10-CM L57.0 Actinic keratosis Active Diagnosis [facility] Diagnosis: ICD-10-CM H90.3 Sensorineural hearing loss, bilateral Active Diagnosis [facility] Diagnosis: ICD-10-CM M19.012 Primary osteoarthritis, left shoulder Active Diagnosis [facility] Diagnosis: ICD-10-CM M25.512 Pain in left shoulder Active Diagnosis [facility] Medications Combined list of outpatient medications [...] DAY FOR HEART DISEASE ORAL ACTIVE 04/30/2024 [id number] 4 JULIET SMART 2023 90 [facility] ATORVASTATI N CA 40MG TAB TAKE ONE TABLET BY MOUTH EVERY DAY FOR CHOLESTE ROL ORAL ACTIVE 04/30/2024 [id number] 4 JULIET SMART 2023 90 [facility] CALCIPOTRIE NE 0.005% CREAM,TOP APPLY THIN LAYER TOPICALL Y TWICE A DAY FOR ROUGH, SCALY SKIN PATCHES MIX WITH EQUAL AMOUNT OF FLUOROUR ACIL CREAM AND APPLY TO [facility] ED AREA(S). USE FOR 4-7 DAYS DIRECTED . WAIT UNTIL FEBRUARY WHEN SPOTS ARE HEALED FROM LIQUID NITROGEN TREATMEN T IN CLINIC. KEEP OUT OF REACH OF KIDS/PET S. DO NOT APPLY TO NOSE, EYES, MOUTH. MIX WITH EQUAL AMOUNT OF FLUOROUR ACIL CREAM AND APPLY TO [facility] ED AREA(S). USE FOR 4-7 DAYS DIRECTED . WAIT UNTIL FEBRUARY WHEN SPOTS ARE HEALED FROM LIQUID NITROGEN TREATMEN T IN CLINIC. KEEP OUT OF REACH OF KIDS/PET S. DO NOT APPLY TO NOSE, EYES, MOUTH. TOPICA L 02/04/2024 [id number] 4 LAWANDA SANCHES 2023 60 [facility] CLOPIDOGREL BISULFATE 75MG TAB TAKE ONE TABLET BY MOUTH EVERY DAY FOR 1 YEAR AFTER STENT THROUGH 01/28/25 ORAL ACTIVE 04/30/2024 [id number] 4 JULIET SMART 2023 90 [facility] FLUOROURACI L 5% CREAM,TOP APPLY PEA SIZED AMOUNTS SMOOTHED TO A THIN LAYER TOPICALL Y TWICE A DAY FOR ROUGH, SCALY SKIN PATCHES MIX WITH EQUAL AMOUNT OF CALCIPOT RIENE CREAM AND APPLY TO [facility] ED AREA(S) ON FACE. USE FOR 4-7 DAYS DIRECTED . WAIT UNTIL FEBRUARY WHEN SPOTS ARE HEALED FROM LIQUID NITROGEN TREATMEN T IN CLINIC. MIX WITH EQUAL AMOUNT OF CALCIPOT RIENE CREAM AND APPLY TO [facility] ED AREA(S) ON FACE. USE FOR 4-7 DAYS DIRECTED . WAIT UNTIL FEBRUARY WHEN SPOTS ARE HEALED FROM LIQUID NITROGEN TREATMEN T IN CLINIC. CYNDI Gomez 02/04/2024 [id number] 4 LAWANDA SANCHES 2023 40 [facility] HYDROCHLORO THIAZIDE 25MG/LISINO PRIL 20MG TAB TAKE 1 TABLET BY MOUTH EVERY MORNING FOR BLOOD PRESSURE . ORAL ACTIVE 01/31/2025 [id number] JULIET SMART 2023 90 [facility] HYDROCHLORO THIAZIDE 25MG/LISINO PRIL 20MG TAB TAKE 1 TABLET BY MOUTH EVERY MORNING FOR BLOOD PRESSURE . ORAL DISCONT INUED BY HITESH R 06/13/2024 [id number] JACKELYN GOMES 2023 90 [facility] HYDROCHLORO THIAZIDE 25MG/LISINO PRIL 20MG TAB TAKE 1 TABLET BY MOUTH EVERY MORNING FOR BLOOD PRESSURE . ORAL DISCONT INUED 03/24/2023 [id number] ROWDY [facility] 2021 90 [facility] HYDROCHLORO THIAZIDE 25MG/LISINO PRIL 20MG TAB TAKE ONE TABLET BY MOUTH EVERY MORNING FOR BLOOD PRESSURE ([facility] ; [facility]) ORAL 03/17/2023 [id number] 3 ABELINO LEONG 2022 14 [facility] ISOSORBIDE MONONITRATE 30MG TAB,SA TAKE ONE TABLET BY MOUTH EVERY DAY FOR CHEST PAIN ORAL ACTIVE 04/30/2024 [id number] 4 JULIET SMART 2023 90 [facility] METOPROLOL SUCCINATE 25MG TAB,SA TAKE ONE TABLET BY MOUTH EVERY DAY FOR CHEST PAIN ORAL ACTIVE 04/30/2024 [id number] 4 JULIET SMART 2023 90 [facility] MULTI/GRINDING ROOM INSPECTOR AL/ANTIOXID ANT TAB MOUTH EVERY DAY ORAL ACTIVE JACKELYN GOMES 2022 [facility] NITROGLYCER IN 0.4MG TAB,SUBLING UAL DISSOLVE ONE TABLET UNDER THE TONGUE EVERY 5 MINUTES FOR UP TO 3 DOSES IF NEEDED FOR CHEST PAIN SUBLIN GUAL 02/10/2024 [id number] 4 JACKELYN GOMES 2023 100 [facility] POLYETHYLEN E GLYCOL 3350 PWDR,ORAL TAKE 17 GRAMS BY MOUTH EVERY DAY NEEDED FOR CONSTIPA TION ORAL ACTIVE 12/14/2024 [id number] 4 MIREYAJACKELYN STEPHENS 2023 510 [facility] SILVER SULFADIAZIN E 1% CREAM,TOP APPLY TO AFFECTED AREA TOPICALL Y TWICE A DAY NEEDED FOR IRRITATE D SKIN TOPICA L ACTIVE 10/11/2024 [id number] 4 JACKELYN GOMES 2023 50 [facility] Immunizations Combined list of available immunizations from the Department of Defense and Veterans Affairs facilities. Immunization Series Date Given Administered By Site Reaction Lot Number CVX Code Drug [employer] Status Comments Source INFLUENZA, HIGH-DOSE, TRIVALENT, PF 2023 KATYA CANTU LEFT DELTO ID [id number] A 135 complet ed [facility] INFLUENZA, HIGH-DOSE, QUADRIVALENT 2022 BOOGIE ROJAS A LEFT DELTO ID [id number] A 197 complet ed [facility] TDAP 2022 MARCUS ALMANZA L LEFT DELTO ID L 115 complet ed [facility] INFLUENZA, HIGH-DOSE, QUADRIVALENT 2021 197 complet ed Partner:Rosaline JACKMAN.Admin istered by:[facility].( [id number] [phone]).NDC:[id number] .Address: [address] [place] [address] .[phone] Dosage: ML 0.7 [facility] INFLUENZA, INJECTABLE, QUADRIVALENT, PRESERVATIVE FREE 2020 150 complet ed [facility] COVID-19 (MODERNA), MRNA, LNP-S, PF, 100 MCG/0.5ML DOSE OR 50 MCG/0.25ML DOSE 2 2020 207 complet ed [facility] COVID-19 (MODERNA), MRNA, LNP-S, PF, 100 MCG/0.5ML DOSE OR 50 MCG/0.25ML DOSE 1 2020 207 complet ed [facility] INFLUENZA, INJECTABLE, QUADRIVALENT, PRESERVATIVE FREE 2019 150 complet ed [facility] INFLUENZA, SEASONAL, INJECTABLE, PRESERVATIVE FREE 2018 NONE 140 complet ed Right Deltoid (IM) 0.5ml, Lot #:[id number] Exp 10-09-2019 , Name:FLUA LISA QUADRIVAL ENT, Manu:[employer] clinton [facility] ZOSTER RECOMBINANT 2 2018 187 complet ed [facility] ZOSTER RECOMBINANT 1 2018 187 complet ed [facility] INFLUENZA, HIGH DOSE SEASONAL 2017 135 complet ed [facility] INFLUENZA, HIGH DOSE SEASONAL 2017 135 complet ed [facility] INFLUENZA, INJECTABLE, MDCK, PRESERVATIVE FREE, QUADRIVALENT 2016 171 complet ed Partner: Alberto . Administe red by: Alberto Clinician (NPI=Not Provided) . Partner 2 Lot#: [id number] Mfr: RAMONA [facility] INFLUENZA, SEASONAL, INJECTABLE, PRESERVATIVE FREE 2015 140 complet ed [facility] PNEUMOCOCCAL CONJUGATE PCV 13 2014 133 complet ed 000 [facility] INFLUENZA, UNSPECIFIED FORMULATION 2013 88 complet ed [facility] INFLUENZA, UNSPECIFIED FORMULATION 2012 88 complet ed [facility] TDAP 2012 115 complet ed Glaxo aguero de la torre,22C 9R, [facility] ZOSTER LIVE 2012 121 complet ed Merck,J00 [id number] L14 [facility] INFLUENZA, UNSPECIFIED FORMULATION 2011 88 complet ed [facility] INFLUENZA, UNSPECIFIED FORMULATION 2010 88 complet ed [facility] INFLUENZA, UNSPECIFIED FORMULATION 2009 88 complet ed [facility] INFLUENZA, UNSPECIFIED FORMULATION 2008 88 complet ed [facility] INFLUENZA, UNSPECIFIED FORMULATION 2008 88 complet ed [facility] INFLUENZA, UNSPECIFIED FORMULATION 2007 88 complet ed [facility] INFLUENZA, UNSPECIFIED FORMULATION 2007 88 complet ed Lindsey [facility] INFLUENZA, UNSPECIFIED FORMULATION 2007 88 complet ed Lindsey [facility] INFLUENZA, UNSPECIFIED FORMULATION 2006 88 complet ed [facility] PNEUMOCOCCAL (HISTORICAL) 2006 NONE 109 complet ed Left Deltoid (IM), Lot Number:[id number] Exp: 12/24/08 [facility] PNEUMOCOCCAL, UNSPECIFIED FORMULATION 2006 109 complet ed [facility] TD (ADULT), 5 LF TETANUS TOXOID, PRESERVATIVE FREE, ADSORBED 2005 113 complet ed [facility] INFLUENZA, SEASONAL, INJECTABLE 2004 141 complet ed [facility] TD(ADULT) UNSPECIFIED FORMULATION 2004 139 complet ed [facility] TD(ADULT) UNSPECIFIED FORMULATION 2003 139 complet ed Lindsey [facility] TD(ADULT) UNSPECIFIED FORMULATION 1994 139 complet ed [facility] Results Combined list of recent chemistry, [...] Jan 31, 2024 10:13 AM Reporting Lab: [facility] [address] Performing Lab: [facility] [address] [facility] LIPID PANEL,FAS TING CHOLESTEROL [MASS/VOLUM E] IN SERUM OR PLASMA 125 mg/dL <199 - 199 01/30 Specimen Type: PLASMA No comment entered. Ordering Provider: Nargis SMART Report Released Date/Time: Jan 31, 2024 10:13 AM Reporting Lab: [facility] [address] Performing Lab: [facility] [address] [facility] LIPID PANEL,FAS TING TRIGLYCERID E [MASS/VOLUM E] IN SERUM OR PLASMA 95 mg/dL <149 - 149 01/30 Specimen Type: PLASMA No comment entered. Ordering Provider: Nargis SMART Report Released Date/Time: Jan 31, 2024 10:13 AM Reporting Lab: [facility] [address] Performing Lab: [facility] [address] [facility] LIPID PANEL,FAS TING CHOLESTEROL IN HDL [MASS/VOLUM E] IN SERUM OR PLASMA 37 mg/dL 40 01/30 L Specimen Type: PLASMA No comment entered. Ordering Provider: Nargis SMART Report Released Date/Time: Jan 31, 2024 10:13 AM Reporting Lab: [facility] [address] Performing Lab: [facility] [address] [facility] LIPID PANEL,FAS TING CHOLESTEROL IN LDL [MASS/VOLUM E] IN SERUM OR PLASMA BY CALCULATION 69 mg/dL <99 - 99 01/30 Specimen Type: PLASMA No comment entered. Ordering Provider: Nargis SMART Report Released Date/Time: Jan 31, 2024 10:13 AM Reporting Lab: [facility] [address] Performing Lab: [facility] [address] [facility] LIPID PANEL,FAS TING CHOLESTEROL IN VLDL [MASS/VOLUM E] IN SERUM OR PLASMA BY CALCULATION 19 mg/dL <29 - 29 01/30 Specimen Type: PLASMA No comment entered. Ordering Provider: Nargis SMART Report Released Date/Time: Jan 31, 2024 10:13 AM Reporting Lab: [facility] [address] Performing Lab: [facility] [address] [facility] LIPID PANEL,FAS TING CHOLESTEROL NON HDL [MASS/VOLUM E] IN SERUM OR PLASMA 88 mg/dL <129 - 129 01/30 Specimen Type: PLASMA No comment entered. Ordering Provider: Nargis SMART Report Released Date/Time: Jan 31, 2024 10:13 AM Reporting Lab: [facility] [address] Performing Lab: [facility] [address] [facility] CBC LEUKOCYTES [#/VOLUME] IN BLOOD BY AUTOMATED COUNT 7.3 4.0 - 11.0 01/30 Specimen Type: BLOOD No comment entered. Ordering Provider: BASHIR CARVAJAL Report Released Date/Time: Jan 30, 2024 01:03 PM Reporting Lab: [facility] [address] Performing Lab: [facility] [address] [facility] CBC ERYTHROCYTE S [#/VOLUME] IN BLOOD BY AUTOMATED COUNT 3.83 4.60 - 6.20 01/30 L Specimen Type: BLOOD No comment entered. Ordering Provider: BASHIR CARVAJAL Report Released Date/Time: Jan 30, 2024 01:03 PM Reporting Lab: [facility] [address] Performing Lab: [facility] [address] [facility] CBC HEMOGLOBIN [MASS/VOLUM E] IN BLOOD 11.4 g/dL 13.5 - 17.9 01/30 L Specimen Type: BLOOD No comment entered. Ordering Provider: BASHIR CARVAJAL Report Released Date/Time: Jan 30, 2024 01:03 PM Reporting Lab: [facility] [address] Performing Lab: [facility] [address] [facility] CBC HEMATOCRIT [VOLUME FRACTION] OF BLOOD BY AUTOMATED COUNT 35.1 41.0 - 54.0 01/30 L Specimen Type: BLOOD No comment entered. Ordering Provider: BASHIR CARVAJAL Report Released Date/Time: Jan 30, 2024 01:03 PM Reporting Lab: [facility] [address] Performing Lab: [facility] [address] [facility] CBC MCV [ENTITIC VOLUME] BY AUTOMATED COUNT 91.6 fL 80.0 - 100.0 01/30 Specimen Type: BLOOD No comment entered. Ordering Provider: BASHIR CARVAJAL Report Released Date/Time: Jan 30, 2024 01:03 PM Reporting Lab: [facility] [address] Performing Lab: [facility] [address] [facility] CBC MCH [ENTITIC MASS] BY AUTOMATED COUNT 29.8 pg 27.0 - 33.0 01/30 Specimen Type: BLOOD No comment entered. Ordering Provider: BASHIR CARVAJAL Report Released Date/Time: Jan 30, 2024 01:03 PM Reporting Lab: [facility] [address] Performing Lab: [facility] [address] [facility] CBC MCHC [MASS/VOLUM E] BY AUTOMATED COUNT 32.5 g/dL 32.0 - 37.5 01/30 Specimen Type: BLOOD No comment entered. Ordering Provider: BASHIR CARVAJAL Report Released Date/Time: Jan 30, 2024 01:03 PM Reporting Lab: [facility] [address] Performing Lab: [facility] [address] [facility] CBC PLATELETS [#/VOLUME] IN BLOOD BY AUTOMATED COUNT 193 150 - 400 01/30 Specimen Type: BLOOD No comment entered. Ordering Provider: BASHIR CARVAJAL Report Released Date/Time: Jan 30, 2024 01:03 PM Reporting Lab: [facility] [address] Performing Lab: [facility] [address] [facility] CBC PLATELET MEAN VOLUME [ENTITIC VOLUME] IN BLOOD BY AUTOMATED COUNT 10.7 fL 9.1 - 13.0 01/30 Specimen Type: BLOOD No comment entered. Ordering Provider: BASHIR CARVAJAL Report Released Date/Time: Jan 30, 2024 01:03 PM Reporting Lab: [facility] [address] Performing Lab: [facility] [address] [facility] CBC ERYTHROCYTE DISTRIBUTIO N WIDTH [RATIO] BY AUTOMATED COUNT 12.2 11.5 - 14.5 01/30 Specimen Type: BLOOD No comment entered. Ordering Provider: BASHIR CARVAJAL Report Released Date/Time: Jan 30, 2024 01:03 PM Reporting Lab: [facility] [address] Performing Lab: [facility] [address] [facility] BASIC METABOLIC PANEL+MG CREATININE [MASS/VOLUM E] IN SERUM OR PLASMA 1.3 mg/dL 0.7 - 1.2 01/30 H Specimen Type: PLASMA No comment entered. Ordering Provider: BASHIR CARVAJAL Report Released Date/Time: Jan 30, 2024 01:03 PM Reporting Lab: [facility] [address] Performing Lab: [facility] [address] [facility] BASIC METABOLIC PANEL+MG UREA NITROGEN [MASS/VOLUM E] IN SERUM OR PLASMA 24 mg/dL 8 - 26 01/30 Specimen Type: PLASMA No comment entered. Ordering Provider: BASHIR CARVAJAL Report Released Date/Time: Jan 30, 2024 01:03 PM Reporting Lab: [facility] [address] Performing Lab: [facility] [address] [facility] BASIC METABOLIC PANEL+MG GLUCOSE [MASS/VOLUM E] IN SERUM OR PLASMA 91 mg/dL 70 - 100 01/30 Specimen Type: PLASMA No comment entered. Ordering Provider: BASHIR CARVAJAL Report Released Date/Time: Jan 30, 2024 01:03 PM Reporting Lab: [facility] [address] Performing Lab: [facility] [address] [facility] BASIC METABOLIC PANEL+MG SODIUM [MOLES/VOLU ME] IN SERUM OR PLASMA 138 mmol/L 136 - 145 01/30 Specimen Type: PLASMA No comment entered. Ordering Provider: BASHIR CARVAJAL Report Released Date/Time: Jan 30, 2024 01:03 PM Reporting Lab: [facility] [address] Performing Lab: [facility] [address] [facility] BASIC METABOLIC PANEL+MG POTASSIUM [MOLES/VOLU ME] IN SERUM OR PLASMA 4.1 mmol/L 3.5 - 5.1 01/30 Specimen Type: PLASMA No comment entered. Ordering Provider: BASHIR CARVAJAL Report Released Date/Time: Jan 30, 2024 01:03 PM Reporting Lab: [facility] [address] Performing Lab: [facility] [address] [facility] BASIC METABOLIC PANEL+MG CHLORIDE [MOLES/VOLU ME] IN SERUM OR PLASMA 108 mmol/L 98 - 107 01/30 H Specimen Type: PLASMA No comment entered. Ordering Provider: BASHIR CARVAJAL Report Released Date/Time: Jan 30, 2024 01:03 PM Reporting Lab: [facility] [address] Performing Lab: [facility] [address] [facility] BASIC METABOLIC PANEL+MG CARBON DIOXIDE, TOTAL [MOLES/VOLU ME] IN SERUM OR PLASMA 23 mmol/L 22 - 29 01/30 Specimen Type: PLASMA No comment entered. Ordering Provider: BASHIR CARVAJAL Report Released Date/Time: Jan 30, 2024 01:03 PM Reporting Lab: [facility] [address] Performing Lab: [facility] [address] [facility] BASIC METABOLIC PANEL+MG CALCIUM [MASS/VOLUM E] IN SERUM OR PLASMA 8.8 mg/dL 8.4 - 10.2 01/30 Specimen Type: PLASMA No comment entered. Ordering Provider: BASHIR CARVAJAL Report Released Date/Time: Jan 30, 2024 01:03 PM Reporting Lab: [facility] [address] Performing Lab: [facility] [address] [facility] BASIC METABOLIC PANEL+MG MAGNESIUM [MASS/VOLUM E] IN SERUM OR PLASMA 2.1 mg/dL 1.6 - 2.6 01/30 Specimen Type: PLASMA No comment entered. Ordering Provider: BASHIR CARVAJAL Report Released Date/Time: Jan 30, 2024 01:03 PM Reporting Lab: [facility] [address] Performing Lab: [facility] [address] [facility] BASIC METABOLIC PANEL+MG ANION GAP IN SERUM OR PLASMA 7 mmol/L 5 - 15 01/30 Specimen Type: PLASMA No comment entered. Ordering Provider: BASHIR CARVAJAL Report Released Date/Time: Jan 30, 2024 01:03 PM Reporting Lab: [facility] [address] Performing Lab: [facility] [address] [facility] BASIC METABOLIC PANEL+MG GLOMERULAR FILTRATION RATE/1.73 SQ M.PREDICTED [VOLUME RATE/AREA] IN SERUM, PLASMA OR BLOOD BY CREATININE- BASED FORMULA (CKD-EPI 2020) 54 60 01/30 L Specimen Type: PLASMA No comment entered. Ordering Provider: BASHIR CARVAJAL Report Released Date/Time: Jan 30, 2024 01:03 PM Reporting Lab: [facility] [address] Performing Lab: [facility] [address] [facility] POC ACT ACTIVATED CLOTTING TIME (ACT) OF BLOOD BY COAGULATION ASSAY 241 s 84 - 139 01/29 H Specimen Type: BLOOD No comment entered. Ordering Provider: RODO CHRISTY Report Released Date/Time: Jan 30, 2024 10:43 AM Reporting Lab: [facility] [address] Performing Lab: [facility] [address] [facility] P[facility] ACT ACTIVATED CLOTTING TIME (ACT) OF BLOOD BY COAGULATION ASSAY 289 s 84 - 139 01/29 H Specimen Type: BLOOD No comment entered. Ordering Provider: RODO CHRISTY Report Released Date/Time: Jan 30, 2024 10:14 AM Reporting Lab: [facility] [address] Performing Lab: [facility] [address] [facility] POC ACT ACTIVATED CLOTTING TIME (ACT) OF BLOOD BY COAGULATION ASSAY 294 s 84 - 139 01/29 H Specimen Type: BLOOD No comment entered. Ordering Provider: RODO CHRISTY Report Released Date/Time: Jan 30, 2024 10:14 AM Reporting Lab: [facility] [address] Performing Lab: [facility] [address] [place] [facility] HEPARIN APTT APTT IN PLATELET POOR PLASMA BY COAGULATION ASSAY 83.2 s 48.0 - 92.0 01/29 Specimen Type: PLASMA No comment entered. Ordering Provider: BASHIR CARVAJAL Report Released Date/Time: Jan 29, 2024 09:43 PM Reporting Lab: [facility] [address] Performing Lab: [facility] [address] [place] [facility] BASIC METABOLIC PANEL+MG CREATININE [MASS/VOLUM E] IN SERUM OR PLASMA 1.4 mg/dL 0.7 - 1.2 01/29 H Specimen Type: PLASMA No comment entered. Ordering Provider: BASHIR CARVAJAL Report Released Date/Time: Jan 29, 2024 12:19 PM Reporting Lab: [facility] [address] Performing Lab: [facility] [address] [place] [facility] BASIC METABOLIC PANEL+MG UREA NITROGEN [MASS/VOLUM E] IN SERUM OR PLASMA 27 mg/dL 8 - 26 01/29 H Specimen Type: PLASMA No comment entered. Ordering Provider: BASHIR CARVAJAL Report Released Date/Time: Jan 29, 2024 12:19 PM Reporting Lab: [facility] [address] Performing Lab: [facility] [address] [place] [facility] BASIC METABOLIC PANEL+MG GLUCOSE [MASS/VOLUM E] IN SERUM OR PLASMA 95 mg/dL 70 - 100 01/29 Specimen Type: PLASMA No comment entered. Ordering Provider: BASHIR CARVAJAL Report Released Date/Time: Jan 29, 2024 12:19 PM Reporting Lab: [facility] [address] Performing Lab: [facility] [address] [place] BASIC METABOLIC PANEL+MG SODIUM [MOLES/VOLU ME] IN SERUM OR PLASMA 139 mmol/L 136 - 145 01/29 Specimen Type: PLASMA No comment entered. Ordering Provider: BASHIR CARVAJAL Report Released Date/Time: Jan 29, 2024 12:19 PM Reporting Lab: [facility] [address] Performing Lab: [facility] [address] [place] [facility] BASIC METABOLIC PANEL+MG POTASSIUM [MOLES/VOLU ME] IN SERUM OR PLASMA 4.2 mmol/L 3.5 - 5.1 01/29 Specimen Type: PLASMA No comment entered. Ordering Provider: BASHIR CARVAJAL Report Released Date/Time: Jan 29, 2024 12:19 PM Reporting Lab: [facility] [address] Performing Lab: [facility] [address] [facility] BASIC METABOLIC PANEL+MG CHLORIDE [MOLES/VOLU ME] IN SERUM OR PLASMA 109 mmol/L 98 - 107 01/29 H Specimen Type: PLASMA No comment entered. Ordering Provider: BASHIR CARVAJAL Report Released Date/Time: Jan 29, 2024 12:19 PM Reporting Lab: [facility] [address] Performing Lab: [facility] [address] [place] BASIC METABOLIC PANEL+MG CARBON DIOXIDE, TOTAL [MOLES/VOLU ME] IN SERUM OR PLASMA 24 mmol/L 22 - 29 01/29 Specimen Type: PLASMA No comment entered. Ordering Provider: BASHIR CARVAJAL Report Released Date/Time: Jan 29, 2024 12:19 PM Reporting Lab: [facility] [address] Performing Lab: [facility] [address] [facility] BASIC METABOLIC PANEL+MG CALCIUM [MASS/VOLUM E] IN SERUM OR PLASMA 9.0 mg/dL 8.4 - 10.2 01/29 Specimen Type: PLASMA No comment entered. Ordering Provider: BASHIR CARVAJAL Report Released Date/Time: Jan 29, 2024 12:19 PM Reporting Lab: [facility] [address] Performing Lab: [facility] [address] [facility] BASIC METABOLIC PANEL+MG MAGNESIUM [MASS/VOLUM E] IN SERUM OR PLASMA 2.1 mg/dL 1.6 - 2.6 01/29 Specimen Type: PLASMA No comment entered. Ordering Provider: BASHIR CARVAJAL Report Released Date/Time: Jan 29, 2024 12:19 PM Reporting Lab: [facility] [address] Performing Lab: [facility] [address] [facility] BASIC METABOLIC PANEL+MG ANION GAP IN SERUM OR PLASMA 6 mmol/L 5 - 15 01/29 Specimen Type: PLASMA No comment entered. Ordering Provider: BASHIR CARVAJAL Report Released Date/Time: Jan 29, 2024 12:19 PM Reporting Lab: [facility] [address] Performing Lab: [facility] [address] [facility] BASIC METABOLIC PANEL+MG GLOMERULAR FILTRATION RATE/1.73 SQ M.PREDICTED [VOLUME RATE/AREA] IN SERUM, PLASMA OR BLOOD BY CREATININE- BASED FORMULA (CKD-EPI 2020) 49 60 01/29 L Specimen Type: PLASMA No comment entered. Ordering Provider: BASHIR CARVAJAL Report Released Date/Time: Jan 29, 2024 12:19 PM Reporting Lab: [facility] [address] Performing Lab: [facility] [address] [facility] HEPARIN APTT APTT IN PLATE[place] POOR PLASMA BY COAGULATION ASSAY 214.6 s 48.0 - 92.0 01/28 HH Specimen Type: PLASMA Comment: Critical Value Reported To: Tomasa Delcid PharmD 01/29/24 @[address] [place] [address]. Critical value report confirmed. Ordering Provider: NICOLA SAMUEL Report Released Date/Time: Jan 29, 2024 03:00 PM Reporting Lab: [facility] [address] Performing Lab: [facility] [address] [facility] Vital Signs Combined list of inpatient and outpatient Vital Signs from Department of Defense and Veterans Affairs, ranging from 12 months to all on record, depending upon the facility. Vital Sign Value Date Comments Source SYSTOLIC BLOOD PRESSURE 147 02/24/2024 12:48:35 [facility] DIASTOLIC BLOOD PRESSURE 77 02/24/2024 12:48:35 [facility] PULSE OXIMETRY 97 02/24/2024 12:48:35 [facility] WEIGHT 157.8 02/24/2024 12:48:35 [facility] BMI 25kg/m2 02/24/2024 12:48:35 [facility] PAIN 3 02/24/2024 12:48:35 [facility] TEMPERATURE 98.8 02/24/2024 12:48:35 [facility] PULSE 47 02/24/2024 12:48:35 [facility] RESPIRATION 19 02/24/2024 12:48:35 [facility] SYSTOLIC BLOOD PRESSURE 148 02/21/2024 09:52:03 [facility] DIASTOLIC BLOOD PRESSURE 80 02/21/2024 09:52:03 [facility] PULSE OXIMETRY 98 02/21/2024 09:52:03 [facility] WEIGHT 159 02/21/2024 09:52:03 [facility] BMI 25kg/m2 02/21/2024 09:52:03 [facility] PAIN 0 02/21/2024 09:52:03 [facility] TEMPERATURE 98.1 02/21/2024 09:52:03 [facility] PULSE 94 02/21/2024 09:52:03 [facility] RESPIRATION 17 02/21/2024 09:52:03 [facility] WEIGHT 148.37 01/30/2024 08:00:00 [facility] BMI 23kg/m2 01/30/2024 08:00:00 [facility] PAIN 7 01/28/2024 03:25:50 [facility] SYSTOLIC BLOOD PRESSURE 138 01/11/2024 13:25:22 [facility] DIASTOLIC BLOOD PRESSURE 79 01/11/2024 13:25:22 [facility] PULSE OXIMETRY 98 01/11/2024 13:25:22 [facility] WEIGHT 151 01/11/2024 13:25:22 [facility] BMI 24kg/m2 01/11/2024 13:25:22 [facility] PAIN 0 01/11/2024 13:25:22 [facility] HEIGHT 67 01/11/2024 13:25:22 [facility] TEMPERATURE 98.8 01/11/2024 13:25:22 [facility] PULSE 53 01/11/2024 13:25:22 [facility] RESPIRATION 16 01/11/2024 13:25:22 [facility] Encounters Combined list of: 1) Encounters from [facility] facilities going back up to thelast 18 months. 2) Encounters from the Department of [facility] facilities going back up to 280 months. Location Location Details Encounter Type Encounter Number Reason For Visit Attending Provider ADM Date DC Date Status Disposition Source [facility] Outpatient Encounter [id number] 09/10 [facility] En[facility] [id number] 09/10 [facility]/P EST MOD 30-39 MIN [id number] Diagnos is: ICD-10- CM M25.512 Pain in left shoulde r
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
NIETZJESSICA SUE Santoyo 10/18 [facility] Encounter [id number] 10/18 [facility] O/P EST LOW 20-29 MIN [id number] Diagnos is: ICD-10- CM H90.3 Sensori neural hearing loss, bilater al
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
Yarelis PENNINGTON 11/11 [facility] O/P NEW SF 15-29 MIN [id number] Diagnos is: ICD-10- CM L57.0 Actinic keratos is
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
ALEX BHATT 11/24 [facility] O/P EST MOD 30-39 MIN [id number] Diagnos is: ICD-10- CM R13.12 Dysphag ia, orophar yngeal phase<b r/> FADY VENCES 12/06 [facility] CASE MANAGEMENT [id number] MARCUS VAUGHN 01/04 [facility] Outpatient Encounter [id number] MARCUS VAUGHN 01/06 [place] 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
TAINA BENJAMIN 01/11 [facility] Encounter [id number] 01/12 [facility] [place] ADMIN [id number] Diagnos is: ICD-10- CM Z23 Encount er for immuniz ation<b r/> CYNDIE ROJAS S Catalino 01/28 [facility] Out[facility] Encounter [id number] JUAN ARMENTA 02/10 [facility] Outpatient Encounter [id number] 02/14 [facility] Outpatient Encounter [id number] ABELINO LINN 02/15 [facility] PRO PHONE CALL 5-10 MIN [id number] Diagnos is: ICD-10- CM 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
STUBTAINA ICA K 02/15 [place] [facility] [facility] OFFICE O/P EST LOW 20-29 MIN [id number] Diagnos is: ICD-10- CM D48.5 Neoplas m of uncerta in behavio r of skin
DANITZA,PET ER L 02/17 [facility] Outpatient Encounter [id number] EBONIE GRIGGS NONI H 02/24 [facility] [id number] Arpan HENDRICKSON L 02/24 [facility] Outpatient Encounter [id number] 02/24 [place] [facility] HC PRO PHONE CALL 5-10 MIN [id number] Diagnos is: ICD-10- CM Z71.2 Person consult ing for explana tion of exam or test finding s
KRISHNA SHERMAN TY K 02/25 [facility] Outpatient Encounter [id number] 03/08 [place] [facility] [place] [place] HI 40 MIN [id number] Diagnos is: ICD-10- CM K59.00 Constip ation, 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
Phil GOMES H 12/13 [facility] [facility]P EST MOD 30 MIN [id number] Diagnos is: ICD-10- CM D48.5 Neoplas m of uncerta in behavio r of skin
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
MIREYA,S ALLDion H 01/10 [facility] Encounter [id number] Diagnos is: ICD-10- CM R94.31 Abnorma l electro cardiog annia [ECG] [EKG]<b r/> Yarelis COLEMAN M 01/17 [facility] Out[facility] Encounter [id number] BILLIE GILL 01/19 [facility] Outpatient Encounter [id number] 01/25 [facility] Out[facility] Encounter [id number] SYSTEM,CIS -ARK 01/26 [facility] In[facility] Encounter [id number] Jason KEY 01/26 [facility] Inpatient Encounter [id number] 01/26 [facility] Scan of Mult Cor Art using Intravasc Optic Cohere [id number] Admit Reason: UNSTABL E ANGINA, HEP GTT<br/ > TEAM,CARDS ONE 01/26 [facility] Inpatient Encounter [id number] 01/26 [facility]OS[facility] IP/OBS HIGH 75 [id number] Diagnos is: ICD-10- CM 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
THERESA HAWTHORNE 01/27 [facility] [place] [facility] En[facility] [id number] 01/27 [facility] [place] [facility] In[facility] Encounter [id number] SYSTEM,CIS -ARK 01/28 [facility] [place] Encounter [id number] 01/28 [place] [facility] [place] [facility] Encounter [id number] 01/28 [place] [facility] [place] [facility] Encounter [id number] SYSTEM,CIS -ARK 01/29 [facility] Encounter [id number] 01/29 [facility] [place] [facility] Encounter [id number] 01/29 [place] [facility] [place] [facility] ENDOLUMINL IVUS OCT C 1ST [id number] Diagnos is: ICD-10- CM 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<br/ > THERESA HAWTHORNE 01/29 [place] [facility] [place] [facility] In[facility] Encounter [id number] 01/29 [facility] [place] [facility] HOSP IP/OBS DSCHRG MGMT >30 [id number] Diagnos is: ICD-10- CM 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<br/ > ADELAIDA ROSSI 01/29 [facility] [place] [facility] Encounter [id number] ZEINAB VILLAGRAN -SHIRA 01/30 [facility] [place] [facility] Encounter [id number] 01/30 [facility] [place] [facility] Encounter [id number] 01/30 [facility] [place] [facility] Encounter [id number] 01/30 [facility] [place] [facility] Encounter [id number] 01/30 [facility] [place] [facility] Out[facility] Encounter [id number] 01/31 [facility] [place] [facility] Out[facility] Encounter [id number] 02/02 [facility] [place] [facility] Out[facility] Encounter [id number] 02/02 [place] [facility] En[facility] [id number] 02/05 [place] [facility] [place] [facility] Encounter [id number] 02/08 [place] [facility] Encounter [id number] 02/09 [place] [facility] [place] [facility] OFF[facility] [place] HI 40 MIN [id number] Diagnos is: ICD-10- CM I25.10 Athscl heart disease of [place] coronar y artery w/o ang pctrs<b r/> Phil GOMES 02/20 [facility] [place] [facility] ELECTROCAR DIOGRAM REPORT [id number] Diagnos is: ICD-10- CM Z13.6 Encount er for screeni ng for cardiov ascular disorde rs
Arpan HOWE EREMIAH J 02/23 [facility] [place] [facility] OFF[facility] O/P NEW MOD 45 MIN [id number] Diagnos is: ICD-10- CM I25.10 Athscl heart disease of [place] coronar y artery w/o ang pctrs<b r/> PAUL MACIEL 02/23 [facility] [facility] [place] [facility] PT EVAL LOW COMPLEX 20 MIN [id number] Diagnos is: ICD-10- CM I25.10 Athscl heart disease of [place] coronar y artery w/o ang pctrs<b r/> MARISELA KHAN 03/02 [place] [facility] [place] [facility] DE[facility] CASE MANAGEMENT [id number] MARCUS VAUGHN ELLEN 03/05 [place] [facility] [facility] [place] [facility] [facility] CASE MANAGEMENT [id number] MARCUS VAUGHN 03/07 [place] [facility] [facility] Encounter [id number] 03/10 [facility] Social History Combined list of available smoking, tobacco, and other social history from Department of Defense and Veterans Affairs facilities. Social History Type Response Date Comment Sourc e Tobacco smoking status NHIS VA-TOBACCO FORMER USER 12/14/2023 [facility] History of tobacco use OK-TOBACCO QUIT 15 YRS OR MORE 12/14/2023 [facility] History of tobacco use VA-TOBACCO FORMER USER 10/13/2022 [facility] History of tobacco use OK-TOBACCO FORMER USER 07/27/2021 [facility] History of tobacco use OK-TOBACCO FORMER USER 01/02/2020 [facility] History of tobacco use OK-TOBACCO FORMER USER 07/21/2018 [facility] History of tobacco use FORMER TOBACCO USER 7Y OR GREATER 12/24/2016 [facility] History of tobacco use FORMER TOBACCO USE >1Y <7Y 12/23/2015 [facility] History of tobacco use FORMER TOBACCO USER 7Y OR GREATER 12/26/2014 [facility] History of tobacco use LIFETIME NON-TOBACCO USER 08/13/2013 [facility] History of tobacco use LIFETIME NON TOBACCO USER 07/09/2009 [facility] History of tobacco use LIFETIME NON TOBACCO USER 07/26/2008 [facility] History of tobacco use LIFETIME NON TOBACCO USER 04/18/2007 [facility] History of tobacco use FORMER TOBACCO USER 7Y OR GREATER 08/30/2006 [facility] History of tobacco use LIFETIME NON TOBACCO USER 06/30/2006 [facility] History of tobacco use HF V9 CURRENT [id number] 09/13/2002 28 years ago [facility] Plan of Care List of future care activities from Department of Veterans Affairs facilities. Additional future care activities may be listed in the Assessment and Plan section. Date/Time Care Activity Care Activity Detail Facili ty 04/26/2024 AMBULATORY - MEDICINE AMBULATORY - MEDICI NE [facility] 07/31/2024 AMBULATORY - SURGERY AMBULATORY - SURGERY [facility] 08/21/2024 AMBULATORY - NONE AMBULATORY - NONE [facility] 08/21/2024 AMBULATORY - MEDICINE AMBULATORY - MEDICI [facility] 01/28/2024 Laboratory - Poultry Eviscerator ry Order TROPONIN I, HS PLASMA STAT [facility] 03/01/2024 Consult Order IFC TRAVELING VE [facility] Grinder Machine Setter's Choice STAT [facility] Advance Directives List of completed, amended, or rescinded Advance Directives on record at Department of [facility] facilities. An actual copy of the Directive is not included. Date Advance Directive Provider Source 08/30/2006 ADVANCE DIRECTIVE ARGENIS CRAMER [facility]
--- OUTSIDE RECORDS SUMMARY | 2024-03-10 19:36 | XMS_ITS | Encounter Summary ---
Author Name [facility] Address [address] [place] [address] Care Team Providers Care Compensation Adjuster Name Role Phone SARIAH GOMES Primary Care [...] PART B Sep 09, 2002 PART B [id number] JOAQUIN COUGHLIN S PATIENT MEDICARE (WNR) MEDICARE (M) PART A Sep 09, 2002 PART A [id number] JOAQUIN COUGHLIN S PATIENT MEDICARE (WNR) MEDICARE (M) PART A Sep 09, 2002 PART A [id number] NULLJOAQUIN S PATIENT MEDICARE (WNR) MEDICARE (M) PART B Sep 09, 2002 PART B [id number] JOAQUIN COUGHLIN S PATIENT Selected Encounter This section includes the information on record at NH for the Encounter. Date/Time Encounter Type Encounter Description Reason Provider Source Jan 20, 2024 01:22 PM Outpatient Encounter COMMUNITY CARE CONSULT MIGUEL ÁNGEL GILL Encounter Template Text not used by [place] Plan of Treatment: Future Appointments (+ 6 months) and Future Tests (+/- 45 days) The Plan of Treatment section includes future care activities for the [place] [facility] [place] This section includes future appointments and future orders which are active, pending or scheduled. Future Appointments This section includes appointments that were scheduled to occur 6 months from the date of the Encounter, up to a maximum of 20 appointments. The data comes from all [facility]. Appointment Date/Time Appointment Type Appointme nt Facility Name Jan 26, 2024 08:30 AM AMBULATORY - NONE [facility] Jan 27, 2024 11:47 AM AMBULATORY - NONE [facility] Feb 17, 2024 01:00 PM AMBULATORY NONE [facility] Feb 21, 2024 10:00 AM AMBULATORY - MEDICINE [facility] Feb 24, 2024 12:15 PM AMBULATORY - MEDICINE [facility] Feb 24, 2024 01:00 PM AMBULATORY - MEDICINE [facility] Mar 02, 2024 01:00 PM [facility] Apr 26, 2024 10:00 AM AMBULATORY - MEDICINE [facility] Active, Pending, and Scheduled Orders This section [...] comes from all [facility]. Test Date/Time Test Type Test Details Facility Name Jan 18, 2024 04:23 PM Consult Order COMMUNITY CARE-ECHOCARDIOGRAPHY Cons Nurse [employer] [facility] Jan 19, 2024 12:10 PM Consult Order COMMUNITY CARE-DERMATOLOGY Cons Nurse [facility] Jan 28, 2024 02:00 AM Laboratory - Chemi stry Order TROPONIN I, HS PLASMA STAT [facility] Mar 01, 2024 03:28 PM Consult Order IFC TRAVEL ING UNIVERSAL CONSULT-[facility] Cons Nurse [employer] [facility] Lab Results: +/- 30 days of [...] Range Comment Jan 31, 2024 10:50 AM [facility] HEMOGLOBIN A1C Specimen Type: [...] 2024 10:13 AM Reporting Lab: [facility] [phone] Performing Lab: [facility] [phone] HEMOGLOBIN A1C 5.4 4.0-6.0 Jan 31, 2024 10:50 AM [facility] LIPID PANEL,FASTING Specimen Type: PLASMA No comment entered. Ordering Provider: JULIET SMART Report Released Date/Time: Jan 31, 2024 10:13 AM Reporting Lab: [facility] [phone] Performing Lab: [facility] [address] CHOLESTEROL 125 mg/dL <199 TRIGLYCERIDE 95 mg/dL <149 .HDL 37 mg/dL L >40 LDL CALCULATION 69 mg/dL <99 VLDL CALCULATION 19 mg/dL <29 NON HDL CHOLESTEROL 88 mg/dL <129 Jan 31, 2024 07:29 AM [facility] CBC Specimen Type: BLOOD No comment entered. Ordering Provider: BASHIR CARVAJAL Report Released Date/Time: Jan 30, 2024 01:03 PM Reporting Lab: [facility] [phone] Performing Lab: [facility] [phone] WBC 7.3 4.0-11.0 RBC 3.83 L 4.60-6.20 HGB 11.4 g/dL L 13.5-17.9 HCT 35.1 L 41.0-54.0 MCV 91.6 fL 80.0-100.0 MCH 29.8 pg 27.0-33.0 MCHC 32.5 g/dL 32.0-37.5 PLT 193 150-400 MPV 10.7 fL 9.1-13.0 RDW 12.2 11.5-14.5 Jan 31, 2024 07:29 AM [facility] BASIC METABOLIC PANEL+MG Specimen Type: PLASMA No comment entered. Ordering Provider: BASHIR CARVAJAL Report Released Date/Time: Jan 30, 2024 01:03 PM Reporting Lab: [facility] [phone] Performing Lab: [facility] [phone] CREATININE 1.3 mg/dL H 0.7-1.2 UREA NITROGEN 24 mg/dL 8-26 GLUCOSE 91 mg/dL 70-100 SODIUM 138 mmol/L 136-145 POTASSIUM 4.1 mmol/L 3.5-5.1 CHLORIDE 108 mmol/L H 98-107 CO2 23 mmol/L 22-29 CALCIUM 8.8 mg/dL 8.4-10.2 MAGNESIUM 2.1 mg/dL 1.6-2.6 ANION GAP 7 mmol/L 5-15 .CREAT EGFR(CKD-EPI) 54 L >60 Jan 30, 2024 10:37 AM [facility] POC ACT Specimen Type: BLOOD No comment entered. Ordering Provider: RODO CHRISTY Report Released Date/Time: Jan 30, 2024 10:43 AM Reporting Lab: [facility] [phone] Performing Lab: [facility] [phone] POC ACT 241 s H 84-139 Jan 30, 2024 10:08 AM [facility] POC ACT Specimen Type: BLOOD No comment entered. Ordering Provider: RODO CHRISTY Report Released Date/Time: Jan 30, 2024 10:14 AM Reporting Lab: [facility] [phone] Performing Lab: [facility] [phone] POC ACT 289 s H 84-139 Jan 30, 2024 09:34 AM [facility] POC ACT Specimen Type: BLOOD No comment entered. Ordering Provider: RODO CHRISTY Report Released Date/Time: Jan 30, 2024 10:14 AM Reporting Lab: [facility] [phone] Performing Lab: [facility] [phone] POC ACT 294 s H 84-139 Jan 30, 2024 05:37 AM [facility] HEPARIN APTT Specimen Type: PLASMA No comment entered. Ordering Provider: BASHIR CARVAJAL Report Released Date/Time: Jan 29, 2024 09:43 PM Reporting Lab: [facility] [phone] Performing Lab: [facility] [phone] HEPARIN APTT 83.2 s 48.0-92.0 Jan 30, 2024 05:37 AM [facility] BASIC METABOLIC PANEL+MG Specimen Type: PLASMA No comment entered. Ordering Provider: BASHIR CARVAJAL Report Released Date/Time: Jan 29, 2024 12:19 PM Reporting Lab: [facility] [phone] Performing Lab: [facility] [phone] CREATININE 1.4 mg/dL H 0.7-1.2 UREA NITROGEN 27 mg/dL H 8-26 GLUCOSE 95 mg/dL 70-100 SODIUM 139 mmol/L 136-145 POTASSIUM 4.2 mmol/L 3.5-5.1 CHLORIDE 109 mmol/L H 98-107 CO2 24 mmol/L 22-29 CALCIUM 9.0 mg/dL 8.4-10.2 MAGNESIUM 2.1 mg/dL 1.6-2.6 ANION GAP 6 mmol/L 5-15 .CREAT EGFR(CKD-EPI) 49 L >60 Jan 29, 2024 09:02 PM [facility] HEPARIN APTT Specimen Type: PLASMA Comment: Critical Value Reported To: Tomasa Delcid PharmD 01/29/24 @[address] [place] [address]. Critical value report confirmed. Ordering Provider: MERY SAMUEL Report Released Date/Time: Jan 29, 2024 03:00 PM Reporting Lab: [facility] [phone] Performing Lab: [facility] [phone] HEPARIN APTT 214.6 s HH 48.0-92.0 Jan 29, 2024 06:24 AM [facility] BASIC METABOLIC PANEL+MG Specimen Type: PLASMA No comment entered. Ordering Provider: BASHIR CARVAJAL Report Released Date/Time: Jan 28, 2024 04:36 PM Reporting Lab: [facility] [phone] Performing Lab: [facility] [phone] CREATININE 1.6 mg/dL H 0.7-1.2 UREA NITROGEN 27 mg/dL H 8-26 GLUCOSE 92 mg/dL 70-100 SODIUM 140 mmol/L 136-145 POTASSIUM 4.2 mmol/L 3.5-5.1 CHLORIDE 110 mmol/L H 98-107 CO2 25 mmol/L 22-29 CALCIUM 8.8 mg/dL 8.4-10.2 MAGNESIUM 2.1 mg/dL 1.6-2.6 ANION GAP 5 mmol/L 5-15 .CREAT EGFR(CKD-EPI) 42 L >60 Jan 28, 2024 05:54 AM [facility] EXTRA PURPLE TUBE Specimen Type: BLOOD No comment entered. Ordering Provider: RODO CHRISTY Report Released Date/Time: Jan 28, 2024 05:54 AM Reporting Lab: [facility] [phone] Performing Lab: [facility] [phone] EXTRA PURPLE TUBE RECEIVED Jan 28, 2024 05:53 AM [facility] ALBUMIN Specimen Type: PLASMA No comment entered. Ordering Provider: BASHIR CARVAJAL Report Released Date/Time: Jan 27, 2024 04:49 PM Reporting Lab: [facility] [phone] Performing Lab: [facility] [phone] ALBUMIN 3.5 g/dL 3.5-5.2 Jan 28, 2024 05:53 AM [facility] BASIC METABOLIC PANEL+MG Specimen Type: PLASMA No comment entered. Ordering Provider: BASHIR CARVAJAL Report Released Date/Time: Jan 27, 2024 05:44 PM Reporting Lab: [facility] [address] Performing Lab: [facility] [phone] CREATININE 1.4 mg/dL H 0.7-1.2 UREA NITROGEN 28 mg/dL H 8-26 GLUCOSE 92 mg/dL 70-100 SODIUM 140 mmol/L 136-145 POTASSIUM 4.4 mmol/L 3.5-5.1 CHLORIDE 109 mmol/L H 98-107 CO2 23 mmol/L 22-29 CALCIUM 8.8 mg/dL 8.4-10.2 MAGNESIUM 2.1 mg/dL 1.6-2.6 ANION GAP 8 mmol/L 5-15 .CREAT EGFR(CKD-EPI) 49 L >60 Jan 28, 2024 05:52 AM [facility] TROPONIN I, HS Specimen Type: PLASMA Comment: Critical value previously reported on patient. Ordering Provider: BRANDON MEJIA Report Released Date/Time: Jan 27, 2024 09:15 PM Reporting Lab: [facility] [phone] Performing Lab: [facility] [phone] TROPONIN I, HS 128 HH <35 Jan 28, 2024 12:35 AM [facility] COVID-19 DIAGNOSTIC PANEL (CEPHEID) Specimen Type: NASOPHARYNGEAL Comment: Cepheid GeneXpert (618) Ordering Provider: LUCAS HAWTHORNE Report Released Date/Time: Jan 27, 2024 04:28 PM Reporting Lab: [facility] [phone] Performing Lab: [facility] [phone] COVID-19 (CEPHEID) Not Detected Not Detected Jan 28, 2024 12:35 AM [facility] HEPARIN APTT Specimen Type: PLASMA Comment: Critical Value Reported To: Deena Oliveros PharmD 01/28/24 @0110 . Critical value report confirmed. Ordering Provider: NATALIE ORDOÑEZ Report Released Date/Time: Jan 27, 2024 07:18 PM Reporting Lab: [facility] [address] Performing Lab: [facility] [phone] HEPARIN APTT 133.9 s HH 48.0-92.0 Jan 28, 2024 12:35 AM [facility] TROPONIN I, HS Specimen Type: PLASMA Comment: Critical value previously reported on patient. Ordering Provider: BRANDON MEJIA Report Released Date/Time: Jan 27, 2024 09:15 PM Reporting Lab: [facility] [phone] Performing Lab: [facility] [phone] TROPONIN I, HS 158 HH <35 Jan 27, 2024 09:22 PM [facility] TROPONIN I, HS Specimen Type: PLASMA Comment: Critical value previously reported on patient. Ordering Provider: BASHIR CARVAJAL Report Released Date/Time: Jan 27, 2024 08:38 PM Reporting Lab: [facility] [phone] Performing Lab: [facility] [phone] TROPONIN I, HS 146 HH <35 Jan 27, 2024 06:52 PM [facility] TROPONIN I, HS Specimen Type: PLASMA Comment: Critical Value Reported To: Brandon Mejia MD 01/27/24 @[address] [place] [address]. Critical value report confirmed. Ordering Provider: BASHIR CARVAJAL Report Released Date/Time: Jan 27, 2024 04:54 PM Reporting Lab: [facility] [phone] Performing Lab: [facility] [address] TROPONIN I, HS 136 HH <35 Jan 27, 2024 06:52 PM [facility] BASIC METABOLIC PANEL+MG Specimen Type: PLASMA No comment entered. Ordering Provider: BASHIR CARVAJAL Report Released Date/Time: Jan 27, 2024 04:54 PM Reporting Lab: [facility] [phone] Performing Lab: [facility] [phone] CREATININE 1.3 mg/dL H 0.7-1.2 UREA NITROGEN 30 mg/dL H 8-26 GLUCOSE 141 mg/dL H 70-100 SODIUM 142 mmol/L 136-145 POTASSIUM 3.4 mmol/L L 3.5-5.1 CHLORIDE 106 mmol/L 98-107 CO2 27 mmol/L 22-29 CALCIUM 8.8 mg/dL 8.4-10.2 MAGNESIUM 2.2 mg/dL 1.6-2.6 ANION GAP 9 mmol/L 5-15 .CREAT EGFR(CKD-EPI) 54 L >60 Jan 27, 2024 06:52 PM [facility] CBC Specimen Type: BLOOD No comment entered. Ordering Provider: BASHIR CARVAJAL Report Released Date/Time: Jan 27, 2024 04:54 PM Reporting Lab: [facility] [phone] Performing Lab: [facility] [address] WBC 6.0 4.0-11.0 RBC 3.91 L 4.60-6.20 [...] 7Y OR GREATE R [facility] Advance Directives: All [...] this document. The data comes from all [place] facilities. Date Advance Directives Provider Source August 30, 2006 ADVANCE DIRECTIVE ARGENIS CRAMER [facility] Pathology Reports: +/- 30 days [...] $APHDR Reporting Lab: [facility] [CLIA# [id number]] [place] [address] - - - - - - - [...] - PATHOLOGY REPORT Accession No. [id number] - - - - - - - [...] - PATHOLOGY REPORT Accession No. [id number] - - - - - - - [...] Report Performed By: [facility] [CLIA# [id number]] [place] [address] $FTR - - - - - - [...] - - MADYSON,GERI NUNEZ STANDARD FORM 515 ID:[id number] SEX:M :1935 AGE: 88 LOC:[id number] PCP: Sariah Gomes MD /shelly/ JOSE REESE [...] COSIGNER: URGENCY: STATUS: COMPLETED Community Care Consult: COMMUNITY CARE-NUCLEAR MEDICINE Consult No: [id number] [facility] Referral #: [id number] Chief Complaint: MYOCARDIAL PERFUSION PHARMACOLOGIC STRESS/REST ALISIA Patient Admitted? No Level of Care Coordination Moderate Care Coordination was determined from: Chart Review Facility Community Care Office Contact Care Coordination Point of Contact: Ligia Turpin Phone Number: [phone] Services: Basic Care Coordination Services Monitoring and coordination of Rehab/PT Services Direct communication to referring provider Care management, if appropriate Plan: Proceed with scheduling /es/ MIGUEL ÁNGEL GILL RN Referral Reserve Operator Signed: 01/20/2024 13:27 MIGUEL ÁNGEL GILL [facility] Jan 20, 2024 01:22 PM NONVA NOTE: LOCAL TITLE: COMMUNITY CARE-CARE COORDINATION PLAN NOTE STANDARD TITLE: NONVA NOTE DATE OF NOTE: JAN 20, 2024@13:22 ENTRY DATE: JAN 20, 2024@13:23:03 AUTHOR: MIGUEL ÁNGEL GILL EXP COSIGNER: URGENCY: STATUS: COMPLETED Community Care Consult: COMMUNITY CARE-DERMATOLOGY Consult No: [id number] [facility] Referral #: [id number] Chief Complaint: SCC, L inferior helix, 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 No Level of Care Coordination Complex/Chronic Care Coordination was determined from: Chart Review Facility Community Care Office Contact Care Coordination Point of Contact: Bartolo Robles Phone Number: [phone] Services: Moderate Care Coordination Services Case Management, if appropriate Direct communications with interdisciplinary team Plan: Proceed with scheduling /shelly/ MIGUEL ÁNGEL GILL RN Referral Reserve Operator Signed: 01/20/2024 13:25 MIGUEL ÁNGEL GILL [facility]
--- OUTSIDE RECORDS SUMMARY | 2024-03-10 19:36 | XMS_ITS | Encounter Summary ---
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 GOMESMOLLY Y H [facility] Jan 11, 2024 02:14 PM SECONDARY Abnormal weight loss MIREYAMOLLY Y H [facility] Jan 11, 2024 02:14 PM SECONDARY Chest pain, unspecified MIREYA,MOLLY Y H [facility] Jan 11, 2024 02:14 PM SECONDARY Chronic kidney disease, unspecified MIREYA,MOLLY Y H [facility] Jan 11, 2024 02:14 PM SECONDARY Constipation, unspecified MIREYA,MOLLY Y H [facility] Jan 11, 2024 02:14 PM SECONDARY Encounter for immunization KATYA ARIAS [facility] Jan 11, 2024 02:14 PM SECONDARY Hyperlipidemia, unspecified MIREYA,MOLLY Y H [facility] Plan of Treatment: Future Appointments (+ 6 months) and Future Tests (+/- 45 days) The Plan of Treatment section includes future care activities for the patient from all [facility]. This section includes future appointments and future orders which are active, pending or scheduled. Future Appointments This section includes appointments that were scheduled to occur 6 months from the date of the Encounter, up to a maximum of 20 appointments. The data comes from all [place] treatment [facility]. Appointment Date/Time Appointment Type Appointme nt Facility Name Jan 26, 2024 08:30 AM AMBULATORY - NONE [facility] Jan 27, 2024 11:47 AM AMBULATORY - NONE [facility] Feb 17, 2024 01:00 PM AMBULATORY - NONE [facility] Feb 21, 2024 10:00 AM AMBULATORY - MEDICINE [facility] Feb 24, 2024 12:15 PM AMBULATORY - MEDICINE [facility] Feb 24, 2024 01:00 PM AMBULATORY - MEDICINE [facility] Mar 02, 2024 01:00 PM AMBULATORY - REHAB MEDICIN [facility] Apr 26, 2024 10:00 AM AMBULATORY - MEDICINE [facility] Active, Pending, and Scheduled [...] 04:23 PM Consult Order [facility]-ECHOCARDIOGRAPHY Cons Advertising Sales Consultant's Choice [facility] Jan 19, 2024 12:10 PM Consult Order [facility]ITY [facility]-DERMATOLOGY Cons Advertising Sales Consultant's Choice [facility] Jan 28, 2024 02:00 AM Laboratory - Chemi stry Order TROPONIN I, HS PLASMA STAT WC [facility] Lab Results: +/- 30 days of [...] Range Comment Jan 31, 2024 10:50 AM [facility] HEMOGLOBIN A1C Specimen Type: BLOOD Comment: [...] Jan 31, 2024 10:13 AM Reporting Lab: [facility] [address] Performing Lab: [facility] [address] HEMOGLOBIN A1C 5.4 4.0-6.0 Jan 31, 2024 10:50 AM [facility] LIPID PANEL,FASTING Specimen Type: PLASMA No comment entered. Ordering Provider: JULIET SMART Report Released Date/Time: Jan 31, 2024 10:13 AM Reporting Lab: [facility] [address] Performing Lab: [facility] [address] CHOLESTEROL 125 mg/dL <199 TRIGLYCERIDE 95 mg/dL <149 .HDL 37 mg/dL L >40 LDL CALCULATION 69 mg/dL <99 VLDL CALCULATION 19 mg/dL <29 NON HDL CHOLESTEROL 88 mg/dL <129 Jan 31, 2024 07:29 AM [facility] CBC Specimen Type: BLOOD No comment entered. Ordering Provider: BASHIR CARVAJAL Report Released Date/Time: Jan 30, 2024 01:03 PM Reporting Lab: [facility] [address] Performing Lab: [facility] [address] WBC 7.3 4.0-11.0 RBC 3.83 L 4.60-6.20 HGB 11.4 g/dL L 13.5-17.9 HCT 35.1 L 41.0-54.0 MCV 91.6 fL 80.0-100.0 MCH 29.8 pg 27.0-33.0 MCHC 32.5 g/dL 32.0-37.5 PLT 193 150-400 MPV 10.7 fL 9.1-13.0 RDW 12.2 11.5-14.5 Jan 31, 2024 07:29 AM [facility] BASIC METABOLIC PANEL+MG Specimen Type: PLASMA No comment entered. Ordering Provider: BASHIR CARVAJAL Report Released Date/Time: Jan 30, 2024 01:03 PM Reporting Lab: [facility] [address] Performing Lab: [facility] [address] CREATININE 1.3 mg/dL H 0.7-1.2 UREA NITROGEN 24 mg/dL 8-26 GLUCOSE 91 mg/dL 70-100 SODIUM 138 mmol/L 136-145 POTASSIUM 4.1 mmol/L 3.5-5.1 CHLORIDE 108 mmol/L H 98-107 CO2 23 mmol/L 22-29 CALCIUM 8.8 mg/dL 8.4-10.2 MAGNESIUM 2.1 mg/dL 1.6-2.6 ANION GAP 7 mmol/L 5-15 .CREAT EGFR(CKD-EPI) 54 L >60 Jan 30, 2024 10:37 AM [facility] POC ACT Specimen Type: BLOOD No comment entered. Ordering Provider: RODO CHRISTY Report Released Date/Time: Jan 30, 2024 10:43 AM Reporting Lab: [facility] [address] Performing Lab: [facility] [address] POC ACT 241 s H 84-139 Jan 30, 2024 10:08 AM [facility] POC ACT Specimen Type: BLOOD No comment entered. Ordering Provider: RODO CHRISTY Report Released Date/Time: Jan 30, 2024 10:14 AM Reporting Lab: [facility] [address] Performing Lab: [facility] [address] POC ACT 289 s H 84-139 Jan 30, 2024 09:34 AM [facility] POC ACT Specimen Type: BLOOD No comment entered. Ordering Provider: RODO CHRISTY Report Released Date/Time: Jan 30, 2024 10:14 AM Reporting Lab: [facility] [address] Performing Lab: [facility] [address] POC ACT 294 s H 84-139 Jan 30, 2024 05:37 AM [facility] HEPARIN APTT Specimen Type: PLASMA No comment entered. Ordering Provider: BASHIR CARVAJAL Report Released Date/Time: Jan 29, 2024 09:43 PM Reporting Lab: [facility] [address] Performing Lab: [facility] [address] HEPARIN APTT 83.2 s 48.0-92.0 Jan 30, 2024 05:37 AM [facility] BASIC METABOLIC PANEL+MG Specimen Type: PLASMA No comment entered. Ordering Provider: BASHIR CARVAJAL Report Released Date/Time: Jan 29, 2024 12:19 PM Reporting Lab: [facility] [address] Performing Lab: [facility] [address] CREATININE 1.4 mg/dL H 0.7-1.2 UREA NITROGEN 27 mg/dL H 8-26 GLUCOSE 95 mg/dL 70-100 SODIUM 139 mmol/L 136-145 POTASSIUM 4.2 mmol/L 3.5-5.1 CHLORIDE 109 mmol/L H 98-107 CO2 24 mmol/L 22-29 CALCIUM 9.0 mg/dL 8.4-10.2 MAGNESIUM 2.1 mg/dL 1.6-2.6 ANION GAP 6 mmol/L 5-15 .CREAT EGFR(CKD-EPI) 49 L >60 Jan 29, 2024 09:02 PM [facility] HEPARIN APTT Specimen Type: PLASMA Comment: Critical Value Reported To: Tomasa Delcid PharmD 01/29/24 @2129 . Critical value report confirmed. Ordering Provider: MERY SAMUEL Report Released Date/Time: Jan 29, 2024 03:00 PM Reporting Lab: [facility] [address] Performing Lab: [facility] [address] HEPARIN APTT 214.6 s HH 48.0-92.0 Jan 29, 2024 06:24 AM [facility] BASIC METABOLIC PANEL+MG Specimen Type: PLASMA No comment entered. Ordering Provider: BASHIR CARVAJAL Report Released Date/Time: Jan 28, 2024 04:36 PM Reporting Lab: [facility] [address] Performing Lab: [facility] [address] CREATININE 1.6 mg/dL H 0.7-1.2 UREA NITROGEN 27 mg/dL H 8-26 GLUCOSE 92 mg/dL 70-100 SODIUM 140 mmol/L 136-145 POTASSIUM 4.2 mmol/L 3.5-5.1 CHLORIDE 110 mmol/L H 98-107 CO2 25 mmol/L 22-29 CALCIUM 8.8 mg/dL 8.4-10.2 MAGNESIUM 2.1 mg/dL 1.6-2.6 ANION GAP 5 mmol/L 5-15 .CREAT EGFR(CKD-EPI) 42 L >60 Jan 28, 2024 05:54 AM [facility] EXTRA PURPLE TUBE Specimen Type: BLOOD No comment entered. Ordering Provider: RODO CHRISTY Report Released Date/Time: Jan 28, 2024 05:54 AM Reporting Lab: [facility] [address] Performing Lab: [facility] [address] EXTRA PURPLE TUBE RECEIVED Jan 28, 2024 05:53 AM [facility] ALBUMIN Specimen Type: PLASMA No comment entered. Ordering Provider: BASHIR CARVAJAL Report Released Date/Time: Jan 27, 2024 04:49 PM Reporting Lab: [facility] [address] Performing Lab: [facility] [address] ALBUMIN 3.5 g/dL 3.5-5.2 Jan 28, 2024 05:53 AM [facility] BASIC METABOLIC PANEL+MG Specimen Type: PLASMA No comment entered. Ordering Provider: BASHIR CARVAJAL Report Released Date/Time: Jan 27, 2024 05:44 PM Reporting Lab: [facility] [address] Performing Lab: [facility] [address] CREATININE 1.4 mg/dL H 0.7-1.2 UREA NITROGEN 28 mg/dL H 8-26 GLUCOSE 92 mg/dL 70-100 SODIUM 140 mmol/L 136-145 POTASSIUM 4.4 mmol/L 3.5-5.1 CHLORIDE 109 mmol/L H 98-107 CO2 23 mmol/L 22-29 CALCIUM 8.8 mg/dL 8.4-10.2 MAGNESIUM 2.1 mg/dL 1.6-2.6 ANION GAP 8 mmol/L 5-15 .CREAT EGFR(CKD-EPI) 49 L >60 Jan 28, 2024 05:52 AM [facility] TROPONIN I, HS Specimen Type: PLASMA Comment: Critical value previously reported on patient. Ordering Provider: BRANDON MEJIA Report Released Date/Time: Jan 27, 2024 09:15 PM Reporting Lab: [facility] [address] Performing Lab: [facility] [address] TROPONIN I, HS 128 HH <35 Jan 28, 2024 12:35 AM [facility] COVID-19 DIAGNOSTIC PANEL (CEPHEID) Specimen Type: NASOPHARYNGEAL Comment: Cepheid GeneXpert (618) Ordering Provider: LUCAS HAWTHORNE Report Released Date/Time: Jan 27, 2024 04:28 PM Reporting Lab: [facility] [address] Performing Lab: [facility] [address] COVID-19 (CEPHEID) Not Detected Not Detected Jan 28, 2024 12:35 AM [facility] HEPARIN APTT Specimen Type: PLASMA Comment: Critical Value Reported To: Deena Oliveros PharmD 01/28/24 @0110 HV. Critical value report confirmed. Ordering Provider: NATALIE ORDOÑEZ Report Released Date/Time: Jan 27, 2024 07:18 PM Reporting Lab: [facility] [address] Performing Lab: [facility] [address] HEPARIN APTT 133.9 s HH 48.0-92.0 Jan 28, 2024 12:35 AM [facility] TROPONIN I, HS Specimen Type: PLASMA Comment: Critical value previously reported on patient. Ordering Provider: BRANDON MEJIA Report Released Date/Time: Jan 27, 2024 09:15 PM Reporting Lab: [facility] [address] Performing Lab: [facility] [address] TROPONIN I, HS 158 HH <35 Jan 27, 2024 09:22 PM [facility] TROPONIN I, HS Specimen Type: PLASMA Comment: Critical value previously reported on patient. Ordering Provider: BASHIR CARVAJAL Report Released Date/Time: Jan 27, 2024 08:38 PM Reporting Lab: [facility] [address] Performing Lab: [facility] [address] TROPONIN I, HS 146 HH <35 Jan 27, 2024 06:52 PM [facility] TROPONIN I, HS Specimen Type: PLASMA Comment: Critical Value Reported To: Brandon Mejia MD 01/27/24 @[address] [place] [address]. Critical value report confirmed. Ordering Provider: BASHIR CARVAJAL Report Released Date/Time: Jan 27, 2024 04:54 PM Reporting Lab: [facility] [address] Performing Lab: [facility] [address] TROPONIN I, HS 136 HH <35 Jan 27, 2024 06:52 PM [facility] BASIC METABOLIC PANEL+MG Specimen Type: PLASMA No comment entered. Ordering Provider: BASHIR CARVAJAL Report Released Date/Time: Jan 27, 2024 04:54 PM Reporting Lab: [facility] [address] Performing Lab: [facility] [address] CREATININE 1.3 mg/dL H 0.7-1.2 UREA NITROGEN 30 mg/dL H 8-26 GLUCOSE 141 mg/dL H 70-100 SODIUM 142 mmol/L 136-145 POTASSIUM 3.4 mmol/L L 3.5-5.1 CHLORIDE 106 mmol/L 98-107 CO2 27 mmol/L 22-29 CALCIUM 8.8 mg/dL 8.4-10.2 MAGNESIUM 2.2 mg/dL 1.6-2.6 ANION GAP 9 mmol/L 5-15 .CREAT EGFR(CKD-EPI) 54 L >60 Jan 27, 2024 06:52 PM [facility] CBC Specimen Type: BLOOD No comment entered. Ordering Provider: BASHIR CARVAJAL Report Released Date/Time: Jan 27, 2024 04:54 PM Reporting Lab: [facility] [address] Performing Lab: [facility] [address] WBC 6.0 4.0-11.0 RBC 3.91 L 4.60-6.20 HGB 12.1 g/dL L 13.5-17.9 HCT 36.5 L 41.0-54.0 MCV 93.4 fL 80.0-100.0 MCH 30.9 pg 27.0-33.0 MCHC 33.2 g/dL 32.0-37.5 PLT 177 150-400 MPV 10.7 fL 9.1-13.0 RDW 12.4 11.5-14.5 Dec 14, 2023 12:33 PM [facility] IRON GROUP Specimen Type: SERUM No comment entered. Ordering Provider: SARIAH GOMES Report Released Date/Time: Dec 14, 2023 12:10 PM Reporting Lab: [facility] [address] Performing Lab: [facility] [address] IRON 95 ug/dL 65-175 TIBC,CALCULATE D 276 ug/dL 250-425 FERRITIN 495.9 ng/mL H 21.8-274.7 IRON SATURATION 34 20-50 TRANSFERRIN 221 mg/dL 163-382 Dec 14, 2023 12:33 PM [facility] LIPID PANEL,NON-FASTING Specimen Type: PLASMA No comment entered. Ordering Provider: SARIAH GOMES Report Released Date/Time: Dec 14, 2023 12:10 PM Reporting Lab: [facility] [address] Performing Lab: [facility] [address] CHOLESTEROL 186 mg/dL <199 .HDL 49 mg/dL >40 LDL CALCULATION 116 mg/dL H <99 VLDL CALCULATION 21 mg/dL <29 NON HDL CHOLESTEROL 137 mg/dL H <129 TRIG(NON FASTING) 106 mg/dL <149 Dec 14, 2023 12:33 PM [facility] B 12 Specimen Type: SERUM No comment entered. Ordering Provider: SARIAH GOMES Report Released Date/Time: Dec 14, 2023 12:10 PM Reporting Lab: [address] Performing Lab: [place] [id number] B 12 642 pg/mL 213-816 Dec 14, 2023 12:33 PM [facility] TSH W/REFLEX TO FREE T4 Specimen Type: PLASMA No comment entered. Ordering Provider: SARIAH GOMES Report Released Date/Time: Dec 14, 2023 12:10 PM Reporting Lab: [place] [id number] Performing Lab: [place] [address] TSH 5.10 u[IU]/mL H 0.35-4.94 FREE T4 0.83 ng/dL 0.70-1.48 Dec 14, 2023 12:33 PM [facility] FOLATE Specimen Type: SERUM No comment entered. Ordering Provider: SARIAH GOMES Report Released Date/Time: Dec 14, 2023 12:10 PM Reporting Lab: [address] Performing Lab: [place] [address] FOLATE 11.5 ng/mL >7.0 Dec 14, 2023 12:33 PM [facility] HEMOGLOBIN A1C Specimen Type: BLOOD Comment: [...] Dec 14, 2023 12:10 PM Reporting Lab: [address] Performing Lab: [place] [address] HEMOGLOBIN A1C 5.3 4.0-6.0 Dec 14, 2023 12:33 PM [facility] CBC Specimen Type: BLOOD No comment entered. Ordering Provider: SARIAH GOMES Report Released Date/Time: Dec 14, 2023 12:10 PM Reporting Lab: [facility] [address] Performing Lab: [facility] [address] WBC 5.5 4.0-11.0 RBC 4.59 L 4.60-6.20 HGB 14.0 g/dL 13.5-17.9 HCT 43.0 41-54 MCV 93.7 fL 80-100 MCH 30.5 pg 27-33 MCHC 32.6 g/dL 32.0-37.5 PLT 184 150-400 MPV 10.6 fL H 7.4-10.4 RDW 12.7 11.5-14.5 Dec 14, 2023 12:33 PM [facility] COMPREHENSIVE METABOLIC PANEL+MG Specimen Type: PLASMA No comment entered. Ordering Provider: SARIAH GOMES Report Released Date/Time: Dec 14, 2023 12:10 PM Reporting Lab: [facility] [address] Performing Lab: [facility] [address] CREATININE 1.2 mg/dL 0.7-1.2 UREA NITROGEN 23 [...] 138/79 16 98 0 67 151 24 [facility] Immunizations: All administered on the encounter date [...] 14, 2023 11:30 AM VA-TOBACCO FORMER USER [facility] Tobacco Use History This section includes a history of the smoking, or tobacco-related health factors, that were collected on or before the date of the Encounter. The data comes from the [place] facility where the Encounter took place. Date/Time Smoking Status/Tobacco Use Comment F acility Dec 14, 2023 11:30 AM VA-TOBACCO QUIT 15 YRS OR MORE [facility] Oct 13, 2022 01:30 PM VA-TOBACCO FORMER USER [facility] Oct 13, 2022 01:30 PM VA-TOBACCO QUIT 15 YRS OR MORE [facility] Jul 27, 2021 10:00 AM VA-TOBACCO FORMER USER [facility] Jul 27, 2021 10:00 AM VA-TOBACCO QUIT 15 YRS OR MORE [facility] Jan 02, 2020 09:00 AM VA-TOBACCO FORMER USER [facility] Jan 02, 2020 09:00 AM VA-TOBACCO QUIT 15 YRS OR MORE [facility] Jul 21, 2018 03:00 PM VA-TOBACCO FORMER USER [facility] Jul 21, 2018 03:00 PM VA-TOBACCO QUIT 15 YRS OR MORE [facility] Dec 24, 2016 08:01 AM FORMER TOBACCO USER 7Y OR GREATE R [facility] Dec 23, 2015 08:23 AM FORMER TOBACCO USE >1Y <7Y [facility] Dec 26, 2014 10:32 AM FORMER TOBACCO USER 7Y OR GREATE R [facility] August 13, 2013 08:22 AM LIFETIME NON-TOBACCO USER [facility] August 30, 2006 08:38 AM FORMER TOBACCO USER 7Y OR GREATE R [facility] Advance Directives: All historical and current Section Date Range: From patient's date of to the date document was created. This section includes ALL of a patient's completed or amended [place] Advance and Rescinded Directives. The entries below indicate that a directive exists for the patient, but an actual copy is not included with this document. The data comes from all [place] facilities. Date Advance Directives Provider Source August [...] COSIGNER: URGENCY: STATUS: COMPLETED $APHDR Reporting Lab: [facility] [CLIA# [id number]] [place] [address] - - - - - - - [...] - PATHOLOGY REPORT Accession No. [id number] - - - - - - - [...] - PATHOLOGY REPORT Accession No. [id number] - - - - - - - [...] 0.1 cm. The specimen is inked. CE. (D)[facility] MICROSCOPIC DESCRIPTION: Microscopic examination performed. CI. 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 STAFF PATHOLOGIST Signed Jan 06, 2024@11:16 Performing Laboratory: Surgical Pathology Report Performed By: [facility] [CLIA# [id number]] [place] [address] $FTR - - - - - - - - - - - - - - - - - - - - - - - - - - - - - - - - - - - - - - - - (End of report) JOSE REESE MD [facility] Date Jan 06, 2024 - - - - - - - - - - - - - - - - - - - - - - - - - - - - - - - - - - - - - - - - MADYSON,GERI NUNEZ STANDARD FORM 515 ID:[id number] SEX:M :[id number] AGE: 88 LOC:[id number] PCP: Sariah Gomes MD /shelly/ JOSE REESE M.D. STAFF PATHOLOGIST Signed: 01/06/2024 11:16 JOSE REESE [facility] Encounter Notes: All associated encounter notes [...] 01/11/2024 14:44 Receipt Acknowledged By: 01/11/2024 15:39 /nolan Gomes MD Physician --- Original Document --- [...] 23.7 O2 Sat: 98% (01/11/2024:) Pain: 0 (01/11/2024:) PAIN SCREEN: Patient is not having significant [...] PF Date Administered: Jan 11, 2024 13:30 Analytics Architect: SANOFI PASTEUR Lot: [id number] Exp Date: Oct 08, 2024 Admin Route/Site: INTRAMUSCULAR/LEFT DELTOID Dosage: 0.5mL Vaccine Information Statement(s): INFLUENZA(FLU) VACC(INACTIVATED OR RECOMBINANT)VIS Nov 14, 2020 ([place]) Order By: Policy Administered By: Abebe Arias [...] to receive the vaccine. /shelly/ ABEBE ARIAS LGuyP.N FIELD ARTILLERY CREWMEMBER Signed: 01/11/2024 13:36 ABEBE ARIAS [facility] Jan 11, 2024 01:28 PM INTERNAL [...] PF Date Administered: Jan 11, 2024 13:30 Analytics Architect: SANOFI PASTEUR Lot: [id number] Exp Date: Oct 08, 2024 Admin Route/Site: INTRAMUSCULAR/LEFT DELTOID Dosage: 0.5mL Vaccine Information Statement(s): INFLUENZA(FLU) VACC(INACTIVATED OR RECOMBINANT)VIS Nov 14, 2020 ([place]) Order By: Policy Administered By: Abebe Arias [...] gave verbal consent to receive the vaccine. 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 Constipation has resolved, took Miralax which actually caused too loose of stools so he backed off. also concerned today because recently he had [...] hx CAD. Will be heading back to [place] for winter soon, but will be back in [place] mid Feb. for a wedding and can f/u with me at that time. Reviewed test results w// CHART REVIEW: 01/05/24: Most recent Dermatology visit 12/14/23: At our visit, we addressed new constipation, unexplained weight loss (weighed 185 in 2019, 160 a year ago, now 153), not eating and hydrating as much as he should, reviewed pertinent tests and healthcare market consultant notes Plan at that time: Labs (see orders) May need EGD, colonoscopy Nutrition referral Miralax RTC one month Note: rain in [place], leaving next month The following preventive care [...] Cataract, Senile, Unsp 3. Hypertension (SNOMED [place] 22816015) 4. Hypothyroidism (SNOMED [place] 96178276) 5. Hyperlipidemia 6. Hypermetropia/Hyperopia 7. Astigmatism, Unspec [...] Sister: Lung [place] Brother: Stomach [place] Brother: CAD/[place] SOCIAL HISTORY Relationships/Living: Lives with (Miah). Has children. 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 [employer] Hx: [employer] Tobacco use: None currently [...] C] (01/11/2024:) Weight: 151 lb [68.49 kg] (01/11/2024) Height: 67 in [170.2 cm] (01/11/2024) BMI: 23.7 O2 Sat: 98% (01/11/2024) Blood Pressure: 156/82 (12/14/2023 11:26) BP150/83 repeat Weight: 153 lb [69.40 kg] (12/14/2023 11:) Blood Pressure: 165/80 (10/13/2022 13:04) recheck 164/84 [...] REMINDERS: Time spent today, including: Reviewing interim [facility]- and non-[facility] chart notes and test results, Independently [...] Called with recommendations from cardiology e consultation Edwin also reports 2 additional episodes since our [...] MD Physician Signed: 01/18/2024 16:30 SARIAH GOMES [facility]
--- OUTSIDE RECORDS SUMMARY | 2024-03-10 19:36 | XMS_ITS | Encounter Summary ---
Author Name [facility] [place] [facility] [place] Address [address] [place] [address] Care Team Providers Care Salvage Laborer Name Role Phone SARIAH GOMES Primary Care Provider [facility] Insurance Providers: All historical and [...] PART A Sep 09, 2002 PART A [id number] JOAQUIN COUGHLIN S PATIENT MEDICARE (WNR) MEDICARE (M) PART B Sep 09, 2002 PART B [id number] MADYSON,JOAQUIN S PATIENT MEDICARE (WNR) MEDICARE (M) PART B Sep 09, 2002 PART B [id number] JOAQUIN COUGHLIN S PATIENT MEDICARE (WNR) MEDICARE (M) PART A Sep 09, 2002 PART A [id number] JOAQUIN COUGHLIN S PATIENT Selected Encounter This section includes the information on record at [place] for the Encounter. Date/Time Encounter Type Encounter Description Reason Provider Source Dec 14, 2023 11:30 AM OFFICE O/P EST HI 40 MIN PRIMARY CARE/MEDICINE ICD-10-CM K59.00 Constipation, unspecified SARIAH GOMES E Encounter Template Text not used by [place] Assessments - Encounter Diagnoses This section includes the primary and secondary diagnoses documented for the Encounter. Date/Time Primary/Secondary Diagnosis Diagnosis Name Provider Source Dec 14, 2023 12:36 PM PRIMARY Constipation, unspecified NICOLE GOMESL Y H [facility] Dec 14, 2023 12:36 PM SECONDARY Abnormal weight loss NICOLE GOMESL Y H [facility] Dec 14, 2023 12:36 PM SECONDARY Chronic kidney disease, unspecified MIREYA,MOLLY Y H [facility] Dec 14, 2023 12:36 PM SECONDARY Dysphagia, unspecified MIREYA,MOLLY Y H [facility] Dec 14, 2023 12:36 PM SECONDARY Hyperlipidemia, unspecified NICOLE OGMESL Y H [facility] Dec 14, 2023 12:36 PM SECONDARY Hypertensive chronic kidney disease w stg 1-4/unsp chr kdny NICOLE GOMESL Y H [facility] Dec 14, 2023 12:36 PM SECONDARY Hypothyroidism, unspecified NICOLE GOMESL Y H [facility] Plan of Treatment: Future Appointments (+ 6 months) and Future Tests (+/- 45 days) The Plan of Treatment section includes future care activities for the patient from [facility] [place] [facility] This section includes future appointments and future orders which are active, pending or scheduled. Future Appointments This section includes appointments that were scheduled to occur 6 months from the date of the Encounter, up to a maximum of 20 appointments. The data comes from all [facility] facilities. Appointment Date/Time Appointment Type Appointme nt Facility Name Jan 05, 2024 08:00 AM AMBULATORY - SURG[place] [facility] Jan 10, 2024 12:00 PM AMB[facility]ORY - NONE [place] [facility] Jan 11, 2024 01:30 PM [place]BUL[place]ICINE [place] [facility] Jan 26, 2024 08:30 AM AMB[facility]ORY - NONE [place] [facility] Jan 27, 2024 11:47 AM AMBULATORY - NONE [place] [facility] Feb 17, 2024 01:00 PM AMBUL[facility]ORY - NONE [place] [facility] Feb 21, 2024 10:00 AM AMBUL[place]ORY - [place]ICINE [place] [facility] Feb 24, 2024 12:15 PM [place]BUL[place]ORY - [place]ICINE [place] [facility] Feb 24, 2024 01:00 PM [place]BUL[place]ORY - MEDICINE [place] [facility] Mar 02, 2024 01:00 PM AMBULATORY - REHAB MEDICIN E [facility] Apr 26, 2024 10:00 AM AM[facility]ATORY - MEDICINE [facility] Active, Pending, and Scheduled Orders This section includes a listing of several types of active, pending, and scheduled orders, including clinic medications orders, diagnostic test orders, procedure orders and consult orders; where the start date of the order is 45 days before the date of the Encounter or 45 days after the date of theEncounter. The data comes from all [place] treatment facilities. Test Date/Time Test Type Test Details Facility Name Jan 18, 2024 04:23 PM Consult Order COMMUNITY CARE-ECHOCARDIOGRAPHY Cons Site Lead's Choice [facility] Jan 19, 2024 12:10 PM Consult Order COMMUNITY CARE-DERMATOLOGY Cons Site [facility] Jan 28, 2024 02:00 AM Laboratory - Chemi stry Order TROPONIN I, HS PLASMA STAT WC [facility] Lab Results: +/- 30 days of [...] Range Comment Dec 14, 2023 12:33 PM [facility] IRON GROUP Specimen Type: SERUM No comment entered. Ordering Provider: MOLLY GOMES Report Released Date/Time: Dec 14, 2023 12:10 PM Reporting Lab: [facility] [address] Performing Lab: [facility] [address] IRON 95 ug/dL 65-175 TIBC,CALCULATED 276 ug/dL 250-425 FERRITIN 495.9 ng/mL H 21.8-274.7 IRON SATURATION 34 20-50 TRANSFERRIN 221 mg/dL 163-382 Dec 14, 2023 12:33 PM [facility] B 12 Specimen Type: SERUM No comment entered. Ordering Provider: MOLLY GOMES Report Released Date/Time: Dec 14, 2023 12:10 PM Reporting Lab: [facility] [id number] Performing Lab: [facility] [address] B 12 642 pg/mL 213-816 Dec 14, 2023 12:33 PM [facility] TSH W/REFLEX TO FREE T4 Specimen Type: PLASMA No comment entered. Ordering Provider: MOLLY GOMES Report Released Date/Time: Dec 14, 2023 12:10 PM Reporting Lab: [facility] [address] Performing Lab: [facility] [address] TSH 5.10 u[IU]/mL H 0.35-4.94 FREE T4 0.83 ng/dL 0.70-1.48 Dec 14, 2023 12:33 PM [facility] LIPID PANEL,NON-FASTING Specimen Type: PLASMA No comment entered. Ordering Provider: MOLLY GOMES Report Released Date/Time: Dec 14, 2023 12:10 PM Reporting Lab: [facility] [address] Performing Lab: [facility] [address] CHOLESTEROL 186 mg/dL <199 .HDL 49 mg/dL >40 LDL CALCULATION 116 mg/dL H <99 VLDL CALCULATION 21 mg/dL <29 NON HDL CHOLESTEROL 137 mg/dL H <129 TRIG(NON FASTING) 106 mg/dL <149 Dec 14, 2023 12:33 PM [facility] FOLATE Specimen Type: SERUM No comment entered. Ordering Provider: MOLLY GOMES Report Released Date/Time: Dec 14, 2023 12:10 PM Reporting Lab: [facility] [address] Performing Lab: [facility] [address] FOLATE 11.5 ng/mL >7.0 Dec 14, 2023 12:33 PM [facility] HEMOGLOBIN A1C Specimen Type: BLOOD [...] Dec 14, 2023 12:10 PM Reporting Lab: [facility] [address] Performing Lab: [facility] [address] HEMOGLOBIN A1C 5.3 4.0-6.0 Dec 14, 2023 12:33 PM [facility] CBC Specimen Type: BLOOD No comment entered. Ordering Provider: MOLLY GOMES Report Released Date/Time: Dec 14, 2023 12:10 PM Reporting Lab: [facility] [address] Performing Lab: [facility] [address] WBC 5.5 4.0-11.0 RBC 4.59 L 4.60-6.20 HGB 14.0 g/dL 13.5-17.9 HCT 43.0 41-54 MCV 93.7 fL 80-100 MCH 30.5 pg 27-33 MCHC 32.6 g/dL 32.0-37.5 PLT 184 150-400 MPV 10.6 fL H 7.4-10.4 RDW 12.7 11.5-14.5 Dec 14, 2023 12:33 PM [facility] COMPREHENSIVE METABOLIC PANEL+MG Specimen Type: PLASMA No comment entered. Ordering Provider: MOLLY GOMES Report Released Date/Time: Dec 14, 2023 12:10 PM Reporting Lab: [facility] [address] Performing Lab: [facility] [address] CREATININE 1.2 mg/dL 0.7-1.2 UREA NITROGEN 23 [...] Source Dec 14, 2023 11:38 AM 150/83 [facility] Dec 14, 2023 11:26 AM 98.8 50 156/82 16 96 0 153 24 [facility] Social History: Smoking Status (Most current) [...] 14, 2023 11:30 AM VA-TOBACCO FORMER USER [facility] Tobacco Use History This section includes a history of the smoking, or tobacco-related health factors, that were collected on or before the date of the Encounter. The data comes from the [place] facility where the Encounter took place. Date/Time Smoking Status/Tobacco Use Comment F acility Dec 14, 2023 11:30 AM VA-TOBACCO QUIT 15 YRS OR MORE [facility] Oct 13, 2022 01:30 PM VA-TOBACCO FORMER USER [facility] Oct 13, 2022 01:30 PM VA-TOBACCO QUIT 15 YRS OR MORE [facility] Jul 27, 2021 10:00 AM VA-TOBACCO FORMER USER [facility] Jul 27, 2021 10:00 AM VA-TOBACCO QUIT 15 YRS OR MORE [facility] Jan 02, 2020 09:00 AM VA-TOBACCO FORMER USER [facility] Jan 02, 2020 09:00 AM VA-TOBACCO QUIT 15 YRS OR MORE [facility] Jul 21, 2018 03:00 PM VA-TOBACCO FORMER USER [facility] Jul 21, 2018 03:00 PM VA-TOBACCO QUIT 15 YRS OR MORE [facility] Dec 24, 2016 08:01 AM FORMER TOBACCO USER 7Y OR GREATE R [facility] Dec 23, 2015 08:23 AM FORMER TOBACCO USE >1Y <7Y [facility] Dec 26, 2014 10:32 AM FORMER TOBACCO USER 7Y OR GREATE R [facility] August 13, 2013 08:22 AM LIFETIME NON-TOBACCO USER [facility] August 30, 2006 08:38 AM FORMER TOBACCO USER 7Y OR GREATE R [facility] Advance Directives: All historical and [...] Provider Source August 30, 2006 ADVANCE DIRECTIVE SHOAIB,ARGENIS Villarreal [facility] Pathology Reports: +/- 30 days of [...] COSIGNER: URGENCY: STATUS: COMPLETED $APHDR Reporting Lab: [facility] [CLIA# [id number]] [place] [address] - - - - - - - [...] - PATHOLOGY REPORT Accession No. [id number] - - - - - - - [...] - PATHOLOGY REPORT Accession No. [id number] - - - - - - - [...] Performing Laboratory: Surgical Pathology Report Performed By: [facility] [CLIA# [id number]] [place] [address] $FTR - - - - - - [...] - - GERI COUGHLIN STANDARD FORM 515 ID:[id number] SEX:M :1935 AGE: 88 LOC:[id number] PCP: Sariah Gomes MD /shelly/ JOSE REESE M.D. STAFF PATHOLOGIST Signed: 01/06/2024 11:16 JOSE REESE [facility] Encounter Notes: All associated encounter notes This section contains the clinical notes associated to the Encounter. Date/Time Encounter Note(s) Provider Source Dec 14, 2023 05:15 PM LETTERS: LOCAL TITLE: FOLLOW UP RESULTS LETTER STANDARD TITLE: LETTERS DATE OF NOTE: DEC 14, 2023@17:15 ENTRY DATE: DEC 14, 2023@17:15:52 AUTHOR: SARIAH GOMES EXP COSIGNER: URGENCY: [place]: [place] [address] Dec [facility] [address] [facility] [place] [address] Dear [place]: I am writing to inform you of the results of testing that you had done recently at the [facility]. Overall your test results are acceptable. One [...] staff or provider at the following number: [phone]. Sincerely, Sariah Gomes MD Physician SARIAH GOMES [facility] Dec 14, 2023 11:30 AM INTERNAL MEDICINE [...] medications and/or herbals. Suicide Screen: C-SSRS Screening [place] Suicide Severity Rating Scale (C-SSRS) screener 1. [...] Not worried about housing near future The reports the following: Within the past 12 months, you worried whether your food would run out before you got money to buy more. Never true Within the past 12 months, the food you bought just didn't last and you didn't have money to get more. Never true Food Assistance Programs [facility] Food Assistance Programs [facility] Annual Screening: Whole Health Screen is due [...] ulcers, or a wound from a medical i d sales or Patient is bed-confined or a wheelchair-user or Patient requires assistance to transfer/change position No, Skin Screen is Negative Home Abuse/Violence Screen Is your home free of abuse and violence? Yes MOVE! Program Screen Body Mass Index (BMI)= 24.0 [place]: Collection DT Specimen Test Name Result Units Ref Range 10/13/2022 14:59 BLOOD !! HEMOGLOBIN A1C 5.3 % 4.0 - 6.0 !! Indicates COMMENTS AVAILABLE...Refer to Interim Lab Report. [facility] Hgb A1C: No data available [place] Hgb A1C: No data available Point of Care Hgb A1C: POC HGB A1C____ Outpatient Nutrition Screen Body Mass Index (BMI)= 24.0 [place]: Collection DT Specimen Test Name Result Units Ref Range 10/13/2022 14:59 BLOOD !! HEMOGLOBIN A1C 5.3 % 4.0 - 6.0 !! Indicates COMMENTS AVAILABLE...Refer to Interim Lab Report. [facility] Hgb A1C: No data available [place] Hgb A1C: No data available Point of [...] the patient require assistance with outpatient visit? No /shelly/ JEFFERY CANTU L.P.N MANUFACTURING INDUSTRIAL ENGINEER Signed: 12/14/2023 11:42 JEFFERY CANTU [facility] Dec 14, 2023 08:55 AM INTERNAL MEDICINE NOTE: LOCAL TITLE: MEDICINE CLINIC NOTE STANDARD TITLE: INTERNAL MEDICINE NOTE DATE OF NOTE: DEC 14, 2023@08:55 ENTRY DATE: DEC 13, 2023@21:06:02 AUTHOR: SARIAH GOMES COSIGNER: URGENCY: STATUS: COMPLETED SUBJECT: CLINIC VISIT [...] and to scale back. Does winter in [place] and relaxes yet stays active there. Leaving [...] to Clinic in Dec/Jan before leaving for [place]. The following preventive care screening and other [...] Cataract, Senile, Unsp 3. Hypertension (SNOMED CT 37222401) 4. Hypothyroidism (SNOMED CT 26057471) 5. Hyperlipidemia 6. Hypermetropia/Hyperopia 7. Astigmatism, Unspec [...] Sister: Lung CA Brother: Stomach CA Brother: CAD/MO SOCIAL HISTORY Relationships/Living: Lives with (Miah). Has children. 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 [...] Miralax RTC one month Note: rain in [place], leaving next month REMINDERS: Medication Reconciliation: Education [...] FACILITY ALLERGY/ADR -------- Lindsey CURTIS [facility] NO KNOWN ALLERGIES [facility] No Known Allergies GAGE KUHN [facility] NO KNOWN ALLERGIES Active and Recently [...] including: Reviewing interim [facility]- and non-[facility] [place] chart notes and test results, Independently obtaining [...] Medicine [facility] PACT JEAN PAUL Quinn /es/ Sariah Gomes MD Physician Signed: 12/14/2023 12:36 SARIAH GOMES [facility]
--- OUTSIDE RECORDS SUMMARY | 2024-03-10 19:36 | XMS_ITS | Encounter Summary ---
Author Name [facility] Organization [facility] Address [address] [place] [id number] Care Team Providers Care Roading Engineer Name Role Phone SARIAH GOMES Primary Care [...] PART A Sep 09, 2002 PART A [id number] JOAQUIN COUGHLIN S PATIENT MEDICARE (WNR) MEDICARE (M) PART B Sep 09, 2002 PART B [id number] JOAQUIN COUGHLIN S PATIENT MEDICARE (WNR) MEDICARE (M) PART A Sep 09, 2002 PART A [id number] NULLJOAQUIN S PATIENT MEDICARE (WNR) MEDICARE (M) PART B Sep 09, 2002 PART B [id number] JOAQUIN COUGHLIN S PATIENT Selected Encounter This section includes the information on record at [place] for the Encounter. Date/Time Encounter Type Encounter Description Reason Provider Source Jan 18, 2024 12:30 PM Outpatient Encounter CARDIOLOGY ICD-10-CM R94.31 Abnormal electrocardiogram [ECG] [EKG] CARMEL COLEMAN IHOneyda Encounter Template Text not used by [place] Assessments - Encounter Diagnoses This section includes the primary and secondary diagnoses documented for the Encounter. Date/Time Primary/Secondary Diagnosis Diagnosis Name Provider Source Jan 18, 2024 12:58 PM PRIMARY Abnormal electrocardiogram [ECG] [EKG] CARMEL COLEMAN [facility] Plan of Treatment: Future Appointments (+ 6 months) and Future Tests (+/- 45 days) The Plan of Treatment section includes future care [facility] for the [facility] [place] [facility] This section includes future appointments and future orders which are active, pending or scheduled. Future Appointments This section includes appointments that were scheduled to occur 6 months from the date of the Encounter, up to a maximum of 20 appointments. The data comes from all [facility]. Appointment Date/Time Appointment Type Appointme nt Facility Name Jan 26, 2024 08:30 AM AMBULATORY - NONE [facility] Jan 27, 2024 11:47 AM AMBULATORY - NONE [facility] Feb 17, 2024 01:00 PM AMBULATORY - NONE [facility] Feb 21, 2024 10:00 AM AMBULATORY - MEDICINE [facility] Feb 24, 2024 12:15 PM AMBULATORY - MEDICINE [facility] Feb 24, 2024 01:00 PM AMBULATORY - MEDICINE [facility] Mar 02, 2024 01:00 PM AMBULATORY - REHAB MEDICIN E [facility] Apr 26, 2024 10:00 AM AMBULATORY - MEDICINE [facility] Active, Pending, and Scheduled Orders This section includes a listing of several types of active, pending, and scheduled orders, including clinic medications orders, diagnostic test orders, procedure orders and consult orders; where the start date of the order is 45 days before the date of the Encounter or 45 days after the date of theEncounter. The data comes from all [facility]. Test Date/Time Test Type Test Details Facility Name Jan 18, 2024 04:23 PM Consult Order COMMUNITY CARE-ECHOCARDIOGRAPHY [employer] Director's Choice [facility] Jan 19, 2024 12:10 PM Consult Order COMMUNITY CARE-DERMATOLOGY [employer] Director's Choice [facility] Jan 28, 2024 02:00 AM Laboratory - Chemi stry Order TROPONIN I, HS PLASMA STAT [facility] Mar 01, 2024 03:28 PM Consult Order IFC TRAVEL ING UNIVERSAL CONSULT-[place] [employer] Director's Choice STAT [facility] Lab Results: +/- 30 days of [...] Jan 31, 2024 10:13 AM Reporting Lab: [facility] [id number] Performing Lab: [facility] [address] HEMOGLOBIN A1C 5.4 4.0-6.0 Jan 31, 2024 10:50 AM [facility] LIPID PANEL,FASTING Specimen Type: PLASMA No comment entered. Ordering Provider: JULIET SMART Report Released Date/Time: Jan 31, 2024 10:13 AM Reporting Lab: [facility] [address] Performing Lab: [facility] [address] CHOLESTEROL 125 mg/dL <199 TRIGLYCERIDE 95 mg/dL <149 .HDL 37 mg/dL L >40 LDL CALCULATION 69 mg/dL <99 VLDL CALCULATION 19 mg/dL <29 NON HDL CHOLESTEROL 88 mg/dL <129 Jan 31, 2024 07:29 AM [facility] CBC Specimen Type: BLOOD No comment entered. Ordering Provider: BASHIR CARVAJAL Report Released Date/Time: Jan 30, 2024 01:03 PM Reporting Lab: [facility] [address] Performing Lab: [facility] [address] WBC 7.3 4.0-11.0 RBC 3.83 L 4.60-6.20 [...] Jan 30, 2024 01:03 PM Reporting Lab: [facility] [address] Performing Lab: [facility] [address] CREATININE 1.3 mg/dL H 0.7-1.2 UREA NITROGEN [...] Jan 30, 2024 10:43 AM Reporting Lab: [facility] [address] Performing Lab: [facility] [address] POC ACT 241 s H 84-139 Jan 30, 2024 10:08 AM [facility] POC ACT Specimen Type: BLOOD No comment entered. Ordering Provider: RODO CHRISTY Report Released Date/Time: Jan 30, 2024 10:14 AM Reporting Lab: [facility] [address] Performing Lab: [facility] [address] POC ACT 289 s H 84-139 Jan 30, 2024 09:34 AM [facility] POC ACT Specimen Type: BLOOD No comment entered. Ordering Provider: RODO CHRISTY Report Released Date/Time: Jan 30, 2024 10:14 AM Reporting Lab: [facility] [address] Performing Lab: [facility] [address] POC ACT 294 s H 84-139 Jan 30, 2024 05:37 AM [facility] HEPARIN APTT Specimen Type: PLASMA No comment entered. Ordering Provider: BASHIR CARVAJAL Report Released Date/Time: Jan 29, 2024 09:43 PM Reporting Lab: [facility] [address] Performing Lab: [facility] [address] HEPARIN APTT 83.2 s 48.0-92.0 Jan 30, 2024 05:37 AM [facility] BASIC METABOLIC PANEL+MG Specimen Type: PLASMA No comment entered. Ordering Provider: BASHIR CARVAJAL Report Released Date/Time: Jan 29, 2024 12:19 PM Reporting Lab: [facility] [address] Performing Lab: [facility] [address] CREATININE 1.4 mg/dL H 0.7-1.2 UREA NITROGEN [...] Value Reported To: Tomasa Delcid PharmD 01/29/24 @[facility]. Critical value report confirmed. Ordering Provider: MERY SAMUEL Report Released Date/Time: Jan 29, 2024 03:00 PM Reporting Lab: [facility] [address] Performing Lab: [facility] [address] HEPARIN APTT 214.6 s HH 48.0-92.0 Jan 29, 2024 06:24 AM [facility] BASIC METABOLIC PANEL+MG Specimen Type: PLASMA No comment entered. Ordering Provider: BASHIR CARVAJAL Report Released Date/Time: Jan 28, 2024 04:36 PM Reporting Lab: [facility] [address] Performing Lab: [facility] [address] CREATININE 1.6 mg/dL H 0.7-1.2 UREA NITROGEN [...] Jan 28, 2024 05:54 AM Reporting Lab: [facility] [address] Performing Lab: [facility] [address] EXTRA PURPLE TUBE RECEIVED Jan 28, 2024 05:53 AM [facility] ALBUMIN Specimen Type: PLASMA No comment entered. Ordering Provider: BASHIR CARVAJAL Report Released Date/Time: Jan 27, 2024 04:49 PM Reporting Lab: [facility] [address] Performing Lab: [facility] [address] ALBUMIN 3.5 g/dL 3.5-5.2 Jan 28, 2024 05:53 AM [facility] BASIC METABOLIC PANEL+MG Specimen Type: PLASMA No comment entered. Ordering Provider: BASHIR CARVAJAL Report Released Date/Time: Jan 27, 2024 05:44 PM Reporting Lab: [facility] [address] Performing Lab: [facility] [address] CREATININE 1.4 mg/dL H 0.7-1.2 UREA NITROGEN [...] Jan 27, 2024 09:15 PM Reporting Lab: [facility] [address] Performing Lab: [facility] [address] TROPONIN I, HS 128 HH <35 Jan 28, 2024 12:35 AM [facility] COVID-19 DIAGNOSTIC PANEL (CEPHEID) Specimen Type: NASOPHARYNGEAL Comment: Cepheid GeneXpert (618) Ordering Provider: LUCAS HAWTHORNE Report Released Date/Time: Jan 27, 2024 04:28 PM Reporting Lab: [facility] [address] Performing Lab: [facility] [address] COVID-19 (CEPHEID) Not Detected Not Detected Jan 28, 2024 12:35 AM [facility] HEPARIN APTT Specimen Type: PLASMA Comment: Critical Value Reported To: Deena Oliveros PharmD 01/28/24 @0110 HV. Critical value report confirmed. Ordering Provider: NATALIE ORDOÑEZ Report Released Date/Time: Jan 27, 2024 07:18 PM Reporting Lab: [facility] [address] Performing Lab: [facility] [address] HEPARIN APTT 133.9 s HH 48.0-92.0 Jan 28, 2024 12:35 AM [facility] TROPONIN I, HS Specimen Type: PLASMA Comment: Critical value previously reported on patient. Ordering Provider: BRANDON MEJIA Report Released Date/Time: Jan 27, 2024 09:15 PM Reporting Lab: [facility] [address] Performing Lab: [facility] [address] TROPONIN I, HS 158 HH <35 Jan 27, 2024 09:22 PM [facility] TROPONIN I, HS Specimen Type: PLASMA Comment: Critical value previously reported on patient. Ordering Provider: BASHIR CARVAJAL Report Released Date/Time: Jan 27, 2024 08:38 PM Reporting Lab: [facility] [address] Performing Lab: [facility] [address] TROPONIN I, HS 146 HH <35 Jan 27, 2024 06:52 PM [facility] TROPONIN I, HS Specimen Type: PLASMA Comment: Critical Value Reported To: Brandon Mejia MD 01/27/24 @[address] [place] [address]. Critical value report confirmed. Ordering Provider: BASHIR CARVAJAL Report Released Date/Time: Jan 27, 2024 04:54 PM Reporting Lab: [facility] [address] Performing Lab: [facility] [address] TROPONIN I, HS 136 HH <35 Jan 27, 2024 06:52 PM [facility] CBC Specimen Type: BLOOD No comment entered. Ordering Provider: BASHIR CARVAJAL Report Released Date/Time: Jan 27, 2024 04:54 PM Reporting Lab: [facility] [address] Performing Lab: [facility] [address] WBC 6.0 4.0-11.0 RBC 3.91 L 4.60-6.20 HGB 12.1 g/dL L 13.5-17.9 HCT 36.5 L 41.0-54.0 MCV 93.4 fL 80.0-100.0 MCH 30.9 pg 27.0-33.0 MCHC 33.2 g/dL 32.0-37.5 PLT 177 150-400 MPV 10.7 fL 9.1-13.0 RDW 12.4 11.5-14.5 Jan 27, 2024 06:52 PM [facility] BASIC METABOLIC PANEL+MG Specimen Type: PLASMA No comment entered. Ordering Provider: BASHIR CARVAJAL Report Released Date/Time: Jan 27, 2024 04:54 PM Reporting Lab: [facility] [address] Performing Lab: [facility] [address] CREATININE 1.3 mg/dL H 0.7-1.2 UREA NITROGEN [...] $APHDR Reporting Lab: [facility] [CLIA# [id number]] [place] [address] - - - - - - - [...] - PATHOLOGY REPORT Accession No. [id number] - - - - - - - [...] - PATHOLOGY REPORT Accession No. [id number] - - - - - - - [...] Report Performed By: [facility] [CLIA# [id number]] [place] [address] $FTR - - - - - - - - - - - - - - - - - - - - - - - - - - - - - - - - - - - - - - - - (End of report) JOSE REESE MD [facility] Date Jan 06, 2024 - - - - - - - - - - - - - - - - - - - - - - - - - - - - - - - - - - - - - - - - MADYSON,GERI NUNEZ STANDARD FORM 515 ID:[id number] SEX:M :[id number] AGE: 88 LOC:[id number] PCP: Sariah Gomes MD /shelly/ JOSE REESE [...] Reason for consult: abnormal ECG On 2023, [place] had ECG during annual exam for chronic [...] then re-consult cardiology. If had an inferior TX, as suggested by the ECG, echo would likely show a regional wall motion abnormality or reduced LV function. 2). Consider NM stress test. If has recurrent chest pain, consider ordering a NM stress test to evaluation for ischemia. Thank you for consulting cardiology. If you have any further questions, please feel free to reach out on teams. If you prefer an evaluation with cardiology after or before the recommended testing, please feel free to reconsult cardiology. /shelly/ TODD CHUNG CARDIOLOGY NURSE PRACTITIONER Signed: 01/18/2024 12:58 SERA COLEMAN [facility]
--- OUTSIDE RECORDS SUMMARY | 2024-03-10 19:36 | XMS_ITS | Encounter Summary ---
Author Name [facility] [place] [facility] [place] Address [address] [place] [address] Care Team Providers Care Bonderite Operator Name Role Phone SARIAH GOMES Primary [...] PART B Sep 09, 2002 PART B [id number] JOAQUIN COUGHLIN S PATIENT MEDICARE (WNR) MEDICARE (M) PART A Sep 09, 2002 PART A [id number] JOAQUIN COUGHLIN S PATIENT MEDICARE (WNR) MEDICARE (M) PART A Sep 09, 2002 PART A [id number] JOAQUIN COUGHLIN S PATIENT MEDICARE (WNR) MEDICARE (M) PART B Sep 09, 2002 PART B [id number] JOAQUIN COUGHLIN S PATIENT Selected Encounter This section includes the information on record at [place] for the Encounter. Date/Time Encounter Type Encounter Description Reason Provider Source Jan 05, 2024 08:00 AM OFFICE O/P EST MOD 30 MIN DERMATOLOGY ICD-10-CM D48.5 Neoplasm of uncertain behavior of skin BERSHOW,TRISHA L Oneyda Encounter Template Text not used by [place] Assessments - Encounter Diagnoses This section includes the primary and secondary diagnoses documented for the Encounter. Date/Time Primary/Secondary Diagnosis Diagnosis Name Provider Source Jan 05, 2024 08:38 AM PRIMARY Neoplasm of uncertain behavior of skin SAM SANCHES [facility] Jan 05, 2024 08:38 AM SECONDARY Actinic keratosis SAM SANCHES [facility] Jan 05, 2024 08:38 AM SECONDARY Other seborrheic keratosis SAM SANCHES [facility] Plan of Treatment: Future Appointments (+ 6 months) and Future Tests (+/- 45 days) The Plan of Treatment section includes future care activities for the patient from all [place] [facility]. This section includes future appointments and future orders which are active, pending or scheduled. Future Appointments This section includes appointments that were scheduled to occur 6 months from the date of the Encounter, up to a maximum of 20 appointments. The data comes from all [facility]. Appointment Date/Time Appointment Type Appointme nt Facility Name Jan 10, 2024 12:00 PM AMBULATORY - NONE [facility] Jan 11, 2024 01:30 PM AMBULATORY - MEDICINE [facility] Jan 26, 2024 08:30 AM AMBULATORY - NONE [facility] Jan 27, 2024 11:47 AM AMBULATORY - NONE [facility] Feb 17, 2024 01:00 PM AMBULATORY - NONE [facility] Feb 21, 2024 10:00 AM AMBULATORY - MEDICINE [facility] Feb 24, 2024 12:15 PM AMBULATORY - MEDICINE [facility] Feb 24, 2024 01:00 PM AMBULATORY - MEDICINE [facility] Mar 02, 2024 01:00 PM AMBULATORY - REHAB MEDICIN E [facility] Apr 26, 2024 10:00 AM AMBULATORY - MEDICINE [facility] Active, Pending, and Scheduled Orders This section includes a listing of several types of active, pending, and scheduled orders, including clinic medications orders, diagnostic test orders, procedure orders and consult orders; where the start date of the order is 45 days before the date of the Encounter or 45 days after the date of theEncounter. The data comes from all [facility]. Test Date/Time Test Type Test Details Facility Name Jan 18, 2024 04:23 PM Consult Order COMMUNITY CARE-ECHOCARDIOGRAPHY Cons Denture Contour Wire [facility] Jan 19, 2024 12:10 PM Consult Order COMMUNITY CARE-DERMATOLOGY Cons Denture Contour Wire [facility] Jan 28, 2024 02:00 AM Laboratory - Chemi stry Order TROPONIN I, HS PLASMA STAT WC [facility] Lab Results: +/- 30 days of [...] Range Comment Jan 31, 2024 10:50 AM [facility] HEMOGLOBIN A1C Specimen Type: BLOOD Comment: [...] 31, 2024 10:13 AM Reporting Lab: [facility] [phone] Performing Lab: [facility] [address] HEMOGLOBIN A1C 5.4 4.0-6.0 Jan 31, 2024 10:50 AM [facility] LIPID PANEL,FASTING Specimen Type: PLASMA No comment entered. Ordering Provider: JULIET SMART Report Released Date/Time: Jan 31, 2024 10:13 AM Reporting Lab: [facility] [address] Performing Lab: [facility] [address] CHOLESTEROL 125 mg/dL <199 TRIGLYCERIDE 95 mg/dL <149 .HDL 37 mg/dL L >40 LDL CALCULATION 69 mg/dL <99 VLDL CALCULATION 19 mg/dL <29 NON HDL CHOLESTEROL 88 mg/dL <129 Jan 31, 2024 07:29 AM [facility] CBC Specimen Type: BLOOD No comment entered. Ordering Provider: BASHIR CARVAJAL Report Released Date/Time: Jan 30, 2024 01:03 PM Reporting Lab: [facility] [address] Performing Lab: [facility] [address] WBC 7.3 4.0-11.0 RBC 3.83 L 4.60-6.20 HGB 11.4 g/dL L 13.5-17.9 HCT 35.1 L 41.0-54.0 MCV 91.6 fL 80.0-100.0 MCH 29.8 pg 27.0-33.0 MCHC 32.5 g/dL 32.0-37.5 PLT 193 150-400 MPV 10.7 fL 9.1-13.0 RDW 12.2 11.5-14.5 Jan 31, 2024 07:29 AM [facility] BASIC METABOLIC PANEL+MG Specimen Type: PLASMA No comment entered. Ordering Provider: BASHIR CARVAJAL Report Released Date/Time: Jan 30, 2024 01:03 PM Reporting Lab: [facility] [address] Performing Lab: [facility] [address] CREATININE 1.3 mg/dL H 0.7-1.2 UREA NITROGEN 24 mg/dL 8-26 GLUCOSE 91 mg/dL 70-100 SODIUM 138 mmol/L 136-145 POTASSIUM 4.1 mmol/L 3.5-5.1 CHLORIDE 108 mmol/L H 98-107 CO2 23 mmol/L 22-29 CALCIUM 8.8 mg/dL 8.4-10.2 MAGNESIUM 2.1 mg/dL 1.6-2.6 ANION GAP 7 mmol/L 5-15 .CREAT EGFR(CKD-EPI) 54 L >60 Jan 30, 2024 10:37 AM [facility] POC ACT Specimen Type: BLOOD No comment entered. Ordering Provider: RODO CHRISTY Report Released Date/Time: Jan 30, 2024 10:43 AM Reporting Lab: [facility] [address] Performing Lab: [facility] [address] POC ACT 241 s H 84-139 Jan 30, 2024 10:08 AM [facility] POC ACT Specimen Type: BLOOD No comment entered. Ordering Provider: RODO CHRISTY Report Released Date/Time: Jan 30, 2024 10:14 AM Reporting Lab: [facility] [address] Performing Lab: [facility] [address] POC ACT 289 s H 84-139 Jan 30, 2024 09:34 AM [facility] POC ACT Specimen Type: BLOOD No comment entered. Ordering Provider: RODO CHRISTY Report Released Date/Time: Jan 30, 2024 10:14 AM Reporting Lab: [facility] [address] Performing Lab: [facility] [address] POC ACT 294 s H 84-139 Jan 30, 2024 05:37 AM [facility] HEPARIN APTT Specimen Type: PLASMA No comment entered. Ordering Provider: BASHIR CARVAJAL Report Released Date/Time: Jan 29, 2024 09:43 PM Reporting Lab: [facility] [address] Performing Lab: [facility] [address] HEPARIN APTT 83.2 s 48.0-92.0 Jan 30, 2024 05:37 AM [facility] BASIC METABOLIC PANEL+MG Specimen Type: PLASMA No comment entered. Ordering Provider: BASHIR CARVAJAL Report Released Date/Time: Jan 29, 2024 12:19 PM Reporting Lab: [facility] [address] Performing Lab: [facility] [address] CREATININE 1.4 mg/dL H 0.7-1.2 UREA NITROGEN 27 mg/dL H 8-26 GLUCOSE 95 mg/dL 70-100 SODIUM 139 mmol/L 136-145 POTASSIUM 4.2 mmol/L 3.5-5.1 CHLORIDE 109 mmol/L H 98-107 CO2 24 mmol/L 22-29 CALCIUM 9.0 mg/dL 8.4-10.2 MAGNESIUM 2.1 mg/dL 1.6-2.6 ANION GAP 6 mmol/L 5-15 .CREAT EGFR(CKD-EPI) 49 L >60 Jan 29, 2024 09:02 PM [facility] HEPARIN APTT Specimen Type: PLASMA Comment: Critical Value Reported To: Tomasa Delcid PharmD 01/29/24 @[address] [place] [address]. Critical value report confirmed. Ordering Provider: MERY SAMUEL Report Released Date/Time: Jan 29, 2024 03:00 PM Reporting Lab: [facility] [address] Performing Lab: [facility] [address] HEPARIN APTT 214.6 s HH 48.0-92.0 Jan 29, 2024 06:24 AM [facility] BASIC METABOLIC PANEL+MG Specimen Type: PLASMA No comment entered. Ordering Provider: BASHIR CARVAJAL Report Released Date/Time: Jan 28, 2024 04:36 PM Reporting Lab: [facility] [address] Performing Lab: [facility] [address] CREATININE 1.6 mg/dL H 0.7-1.2 UREA NITROGEN 27 mg/dL H 8-26 GLUCOSE 92 mg/dL 70-100 SODIUM 140 mmol/L 136-145 POTASSIUM 4.2 mmol/L 3.5-5.1 CHLORIDE 110 mmol/L H 98-107 CO2 25 mmol/L 22-29 CALCIUM 8.8 mg/dL 8.4-10.2 MAGNESIUM 2.1 mg/dL 1.6-2.6 ANION GAP 5 mmol/L 5-15 .CREAT EGFR(CKD-EPI) 42 L >60 Jan 28, 2024 05:54 AM [facility] EXTRA PURPLE TUBE Specimen Type: BLOOD No comment entered. Ordering Provider: RODO CHRISTY Report Released Date/Time: Jan 28, 2024 05:54 AM Reporting Lab: [facility] [address] Performing Lab: [facility] [address] EXTRA PURPLE TUBE RECEIVED Jan 28, 2024 05:53 AM [facility] ALBUMIN Specimen Type: PLASMA No comment entered. Ordering Provider: BASHIR CARVAJAL Report Released Date/Time: Jan 27, 2024 04:49 PM Reporting Lab: [facility] [address] Performing Lab: [facility] [address] ALBUMIN 3.5 g/dL 3.5-5.2 Jan 28, 2024 05:53 AM [facility] BASIC METABOLIC PANEL+MG Specimen Type: PLASMA No comment entered. Ordering Provider: BASHIR CARVAJAL Report Released Date/Time: Jan 27, 2024 05:44 PM Reporting Lab: [facility] [address] Performing Lab: [facility] [address] CREATININE 1.4 mg/dL H 0.7-1.2 UREA NITROGEN 28 mg/dL H 8-26 GLUCOSE 92 mg/dL 70-100 SODIUM 140 mmol/L 136-145 POTASSIUM 4.4 mmol/L 3.5-5.1 CHLORIDE 109 mmol/L H 98-107 CO2 23 mmol/L 22-29 CALCIUM 8.8 mg/dL 8.4-10.2 MAGNESIUM 2.1 mg/dL 1.6-2.6 ANION GAP 8 mmol/L 5-15 .CREAT EGFR(CKD-EPI) 49 L >60 Jan 28, 2024 05:52 AM [facility] TROPONIN I, HS Specimen Type: PLASMA Comment: Critical value previously reported on patient. Ordering Provider: BRANDON MEJIA Report Released Date/Time: Jan 27, 2024 09:15 PM Reporting Lab: [facility] [address] Performing Lab: [facility] [address] TROPONIN I, HS 128 HH <35 Jan 28, 2024 12:35 AM [facility] COVID-19 DIAGNOSTIC PANEL (CEPHEID) Specimen Type: NASOPHARYNGEAL Comment: Cepheid GeneXpert (618) Ordering Provider: LUCAS HAWTHORNE Report Released Date/Time: Jan 27, 2024 04:28 PM Reporting Lab: [facility] [address] Performing Lab: [facility] [address] COVID-19 (CEPHEID) Not Detected Not Detected Jan 28, 2024 12:35 AM [facility] HEPARIN APTT Specimen Type: PLASMA Comment: Critical Value Reported To: Deena Oliveros PharmD 01/28/24 @0110 . Critical value report confirmed. Ordering Provider: NATALIE ORDOÑEZ Report Released Date/Time: Jan 27, 2024 07:18 PM Reporting Lab: [facility] [address] Performing Lab: [facility] [address] HEPARIN APTT 133.9 s HH 48.0-92.0 Jan 28, 2024 12:35 AM [facility] TROPONIN I, HS Specimen Type: PLASMA Comment: Critical value previously reported on patient. Ordering Provider: BRANDON MEJIA Report Released Date/Time: Jan 27, 2024 09:15 PM Reporting Lab: [facility] [address] Performing Lab: [facility] [address] TROPONIN I, HS 158 HH <35 Jan 27, 2024 09:22 PM [facility] TROPONIN I, HS Specimen Type: PLASMA Comment: Critical value previously reported on patient. Ordering Provider: BASHIR CARVAJAL Report Released Date/Time: Jan 27, 2024 08:38 PM Reporting Lab: [facility] [address] Performing Lab: [facility] [address] TROPONIN I, HS 146 HH <35 Jan 27, 2024 06:52 PM [facility] TROPONIN I, HS Specimen Type: PLASMA Comment: Critical Value Reported To: Brandon Mejia MD 01/27/24 @[address] [place] [address]. Critical value report confirmed. Ordering Provider: BASHIR CARVAJAL Report Released Date/Time: Jan 27, 2024 04:54 PM Reporting Lab: [facility] [address] Performing Lab: [facility] [address] TROPONIN I, HS 136 HH <35 Jan 27, 2024 06:52 PM [facility] BASIC METABOLIC PANEL+MG Specimen Type: PLASMA No comment entered. Ordering Provider: BASHIR CARVAJAL Report Released Date/Time: Jan 27, 2024 04:54 PM Reporting Lab: [facility] [address] Performing Lab: [facility] [address] CREATININE 1.3 mg/dL H 0.7-1.2 UREA NITROGEN 30 mg/dL H 8-26 GLUCOSE 141 mg/dL H 70-100 SODIUM 142 mmol/L 136-145 POTASSIUM 3.4 mmol/L L 3.5-5.1 CHLORIDE 106 mmol/L 98-107 CO2 27 mmol/L 22-29 CALCIUM 8.8 mg/dL 8.4-10.2 MAGNESIUM 2.2 mg/dL 1.6-2.6 ANION GAP 9 mmol/L 5-15 .CREAT EGFR(CKD-EPI) 54 L >60 Jan 27, 2024 06:52 PM [facility] CBC Specimen Type: BLOOD No comment entered. Ordering Provider: BASHIR CARVAJAL Report Released Date/Time: Jan 27, 2024 04:54 PM Reporting Lab: [facility] [address] Performing Lab: [facility] [address] WBC 6.0 4.0-11.0 RBC 3.91 L 4.60-6.20 HGB 12.1 g/dL L 13.5-17.9 HCT 36.5 L 41.0-54.0 MCV 93.4 fL 80.0-100.0 MCH 30.9 pg 27.0-33.0 MCHC 33.2 g/dL 32.0-37.5 PLT 177 150-400 MPV 10.7 fL 9.1-13.0 RDW 12.4 11.5-14.5 Dec 14, 2023 12:33 PM [facility] IRON GROUP Specimen Type: SERUM No comment entered. Ordering Provider: SARIAH GOMES Report Released Date/Time: Dec 14, 2023 12:10 PM Reporting Lab: [facility] [address] Performing Lab: [facility] [address] IRON 95 ug/dL 65-175 TIBC,CALCULATE D 276 ug/dL 250-425 FERRITIN 495.9 ng/mL H 21.8-274.7 IRON SATURATION 34 20-50 TRANSFERRIN 221 mg/dL 163-382 Dec 14, 2023 12:33 PM [facility] LIPID PANEL,NON-FASTING Specimen Type: PLASMA No comment entered. Ordering Provider: SARIAH GOMES Report Released Date/Time: Dec 14, 2023 12:10 PM Reporting Lab: [facility] [address] Performing Lab: [facility] [address] CHOLESTEROL 186 mg/dL <199 .HDL 49 mg/dL >40 LDL CALCULATION 116 mg/dL H <99 VLDL CALCULATION 21 mg/dL <29 NON HDL CHOLESTEROL 137 mg/dL H <129 TRIG(NON FASTING) 106 mg/dL <149 Dec 14, 2023 12:33 PM [facility] B 12 Specimen Type: SERUM No comment entered. Ordering Provider: SARIAH GOMES Report Released Date/Time: Dec 14, 2023 12:10 PM Reporting Lab: [facility] [address] Performing Lab: [facility] [address] B 12 642 pg/mL 213-816 Dec 14, 2023 12:33 PM [facility] TSH W/REFLEX TO FREE T4 Specimen Type: PLASMA No comment entered. Ordering Provider: SARIAH GOMES Report Released Date/Time: Dec 14, 2023 12:10 PM Reporting Lab: [facility] [address] Performing Lab: [facility] [address] TSH 5.10 u[IU]/mL H 0.35-4.94 FREE T4 0.83 ng/dL 0.70-1.48 Dec 14, 2023 12:33 PM [facility] FOLATE Specimen Type: SERUM No comment entered. Ordering Provider: SARIAH GOMES Report Released Date/Time: Dec 14, 2023 12:10 PM Reporting Lab: [facility] [address] Performing Lab: [place] [phone] FOLATE 11.5 ng/mL >7.0 Dec 14, 2023 12:33 PM [facility] HEMOGLOBIN A1C Specimen Type: BLOOD Comment: [...] Dec 14, 2023 12:10 PM Reporting Lab: [facility] [address] Performing Lab: [facility] [address] HEMOGLOBIN A1C 5.3 4.0-6.0 Dec 14, 2023 12:33 PM [facility] CBC Specimen Type: BLOOD No comment entered. Ordering Provider: SARIAH GOMES Report Released Date/Time: Dec 14, 2023 12:10 PM Reporting Lab: [facility] [address] Performing Lab: [facility] [address] WBC 5.5 4.0-11.0 RBC 4.59 L 4.60-6.20 HGB 14.0 g/dL 13.5-17.9 HCT 43.0 41-54 MCV 93.7 fL 80-100 MCH 30.5 pg 27-33 MCHC 32.6 g/dL 32.0-37.5 PLT 184 150-400 MPV 10.6 fL H 7.4-10.4 RDW 12.7 11.5-14.5 Dec 14, 2023 12:33 PM [facility] COMPREHENSIVE METABOLIC PANEL+MG Specimen Type: PLASMA No comment entered. Ordering Provider: SARIAH GOMES Report Released Date/Time: Dec 14, 2023 12:10 PM Reporting Lab: [facility] [address] Performing Lab: [facility] [address] CREATININE 1.2 mg/dL 0.7-1.2 UREA NITROGEN 23 [...] and tobacco- related health factors from the [facility] where the Encounter took place. Current Smoking Status This section includes the most current smoking, or tobacco-related health factor, from the [place] facility where the Encounter took place. Date/Time Current Smoking Status Comment Mimi hernandez Dec 14, 2023 11:30 AM VA-TOBACCO FORMER USER [facility] Tobacco Use History This section includes a history of the smoking, or tobacco-related health factors, that were collected on or before the date of the Encounter. The data comes from the [place] facility where the Encounter took place. Date/Time Smoking Status/Tobacco Use Comment F acbonilla Dec 14, 2023 11:30 AM VA-TOBACCO QUIT 15 YRS OR MORE [facility] Oct 13, 2022 01:30 PM VA-TOBACCO FORMER USER [facility] Oct 13, 2022 01:30 PM VA-TOBACCO QUIT 15 YRS OR MORE [facility] Jul 27, 2021 10:00 AM VA-TOBACCO FORMER USER [facility] Jul 27, 2021 10:00 AM VA-TOBACCO QUIT 15 YRS OR MORE [facility] Jan 02, 2020 09:00 AM VA-TOBACCO FORMER USER [facility] Jan 02, 2020 09:00 AM VA-TOBACCO QUIT 15 YRS OR MORE [facility] Jul 21, 2018 03:00 PM VA-TOBACCO FORMER USER [facility] Jul 21, 2018 03:00 PM VA-TOBACCO QUIT 15 YRS OR MORE [facility] Dec 24, 2016 08:01 AM FORMER TOBACCO USER 7Y OR GREATE R [facility] Dec 23, 2015 08:23 AM FORMER TOBACCO USE >1Y <7Y [facility] Dec 26, 2014 10:32 AM FORMER TOBACCO USER 7Y OR GREATE R [facility] August 13, 2013 08:22 AM LIFETIME NON-TOBACCO USER [facility] August 30, 2006 08:38 AM FORMER TOBACCO USER 7Y OR GREATE R [facility] Advance Directives: All historical and current Section Date Range: From patient's date of to the date document was created. This section includes ALL of a patient's completed or amended [place] Advance and Rescinded Directives. The entries below indicate that a directive exists for the patient, but an actual copy is not included with this document. The data comes from all [facility]. Date Advance Directives Provider Source August [...] COSIGNER: URGENCY: STATUS: COMPLETED $APHDR Reporting Lab: [facility] [CLIA# [id number]] [place] [address] - - - - - - - [...] - PATHOLOGY REPORT Accession No. [id number] - - - - - - - [...] - PATHOLOGY REPORT Accession No. [id number] - - - - - - - [...] Performing Laboratory: Surgical Pathology Report Performed By: [facility] [CLIA# [id number]] [place] [address] $FTR - - - - - - [...] - - GERI COUGHLIN STANDARD FORM 515 ID:[id number] SEX:M :1935 AGE: 88 LOC:[id number] PCP: Sariah Gomes MD /shelly/ JOSE REESE M.D. STAFF PATHOLOGIST Signed: 01/06/2024 11:16 JOSE REESE [facility] Encounter Notes: All associated encounter notes This section contains the clinical notes associated to the Encounter. Date/Time Encounter Note(s) Provider Source Mar 01, 2024 02:34 PM ADDENDUM: LOCAL TITLE: Addendum STANDARD TITLE: ADDENDUM DATE OF NOTE: MAR 01, 2024@14:34:14 ENTRY DATE: MAR 01, 2024@14:34:15 AUTHOR: CHONG LE EXP COSIGNER: URGENCY: STATUS: COMPLETED [facility] Cook's office called to let us know cancelled his appt for MMS on 02/20/24. [place] leaves the state 03/10/24 they cannot reschedule his MOHS within the next week prior to departing. I will ask the provider to place traveling vet. [place] is agreeable to this plan. . /shelly/ CHONG LE medical corps officer Nurse Surgery Coordinator Signed: 03/01/2024 14:52 Receipt Acknowledged By: 03/01/2024 15:29 /shelly/ ANNA ATKINS RESIDENT --- Original Document --- 01/05/24 DERMATOLOGY CLINIC [...] R postauricular neck. 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 Went well. Otherwise no new, tender, non-healing,or [...] Will aim for when he returns from [place] in July or sooner for any tender, painful, bleeding, rapidly changing, or otherwise concerning lesions. Total encounter time (including chart review, counseling, documentation, ordering of labs/meds): 30-39 min /shelly/ SAM SANCHES MD RESIDENT Signed: 01/05/2024 08:40 Receipt Acknowledged By: 01/09/2024 14: /es/ TRISHA JIMÉNEZ MD CHIEF DERMATOLOGY 01/09/2024 ADDENDUM [...] w Dr. Cook at [facility] in [place], [place]. Will await call for scheduling the [...] R postauricular neck. 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 Cook at [facility] in [place], [place]. Will await call for scheduling the procedure. Otherwise feeling well and biopsy site healing well. Clinically indicated date t+8w. Dermatology Problem List: UBSE 01/05/2024 # NMSC - SCC, L inferior helix s/p shave biopsy 01/05/2024, PENDING [facility] COOK - SCC, R upper back s/p shave biopsy 01/05/2024,PENDING EXCISION T+8W - n/fBCC, R postauricular neck. 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 Went well. Otherwise no new, tender, non-healing,or [...] Will aim for when he returns from [place] in July or sooner for any tender, painful, bleeding, rapidly changing, or otherwise concerning lesions. Total encounter time (including chart review, counseling, documentation, ordering of labs/meds): 30-39 min /shelly/ SAM SANCHES MD RESIDENT Signed: 01/05/2024 08:40 Receipt Acknowledged By: 01/09/2024 14:26 /nolan JIMÉNEZ MD CHIEF DERMATOLOGY 01/09/2024 ADDENDUM STATUS: COMPLETED I saw and evaluated the patient with the resident, and agree with the assessment and plan as written in the resident's note. /nolan JIMÉNEZ MD CHIEF DERMATOLOGY Signed: 01/09/2024 14:27 SAM SANCHES [facility] Jan 05, 2024 08:49 AM DERMATOLOGY JAMI [...] PRACTICAL NURSE Signed: 01/05/2024 08:52 JAQUELIN CHARLES [facility] Jan 05, 2024 07:56 AM DERMATOLOGY [...] R postauricular neck. 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 Went well. Otherwise no new, tender, non-healing,or [...] cc of 1% lidocaine with epinephrine. A Buckhorn blade was used to shave the lesion. [...] Will aim for when he returns from [place] in July or sooner for any tender, [...] written in the resident's note. /shelly/ TRISHA JIMNÉEZ MD CHIEF DERMATOLOGY Signed: 01/09/2024 14:27 01/19/2024 [...] w Dr. Cook at [facility] in [place], [place]. Will await call for scheduling the [...] R postauricular neck. 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 s/p Traveling Vet in [place] [facility] 12/2022 - nodular and fibrosing BCC, R preauricular cheek, s/p [facility] 10/19/17 - SCCis, L lower lip, s/p [facility] 11/03/16 - nBCC, Right upper back, excised in bx 01/02/15 - n+sBCC, Central midback, excised in bx 01/02/15 # AKs - 5FU/C in Winter 2023 - planning for 5FU/C to temples, cheeks, helices, dorsal arms/hands fall 2022 [place] missed R upper back SCC excision appt [...] RTC scheduled for spring. Return precautions advised. /es/ ANNA ATKINS RESIDENT Signed: 02/03/2024 10:48 03/01/2024 ADDENDUM STATUS: COMPLETED [facility] Dr Cook's office called to let us know cancelled his appt for [facility] on 02/20/24. He leaves the state 03/10/24 they cannot reschedule his MOHS within the next week prior to departing. I will ask the provider to place traveling vet. is agreeable to this plan. . /es/ CHONG LE [employer] officer Nurse Surgery Coordinator Signed: 03/01/2024 14:52 Receipt Acknowledged By: * AWAITING SIGNATURE * MILLY,SAM LAKHANI [facility]
--- OUTSIDE RECORDS SUMMARY | 2024-03-10 19:36 | XMS_ITS | Encounter Summary ---
Author Name [facility] [place] Organization [facility] [place] Address [address] [place] [address] Care Team Providers Care Belt Worker Name Role Phone SARIAH GOMES Primary [...] PART A Sep 09, 2002 PART A [id number] JOAQUIN BOYKIN S PATIENT MEDICARE (WNR) MEDICARE (M) PART B Sep 09, 2002 PART B [id number] [phone] NULL,JOAQUIN S PATIENT MEDICARE (WNR) MEDICARE (M) PART B Sep 09, 2002 PART B [id number] JOAQUIN BOYKIN S PATIENT MEDICARE (WNR) MEDICARE (M) PART A Sep 09, 2002 PART A [id number] JOAQUIN BOYKIN S PATIENT Selected Encounter This section includes the information on record at [place] for the Encounter. Date/Time Encounter Type Encounter Description Reason Provider Source Jan 27, 2024 03:[address] Scan of Mult Cor Art using Intravasc Optic Cohere HOSPITALIZATION ICD-10-CM Z87.891 Personal history of nicotine dependence TEAM,CARDS ONE IHE Encounter Template Text not used by [place] Assessments - Encounter Diagnoses This section includes the primary and secondary diagnoses documented for the Encounter. 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 [facility] Jan 31, 2024 12:29 PM SECONDARY Dysphagia, unspecified [facility] Jan 31, 2024 12:29 PM SECONDARY Hyperlipidemia, unspecified [facility] Jan 31, 2024 12:29 PM SECONDARY Hypertensive chronic kidney disease w stg 1-4/unsp chr kdny [facility] Jan 31, 2024 12:29 PM SECONDARY Hypothyroidism, unspecified [facility] Jan 31, 2024 12:29 PM SECONDARY Personal history of nicotine dependence [facility] Plan of Treatment: Future Appointments (+ 6 months) and Future Tests (+/- 45 days) The Plan of Treatment section includes [facility] care activities for the [facility] This section includes future appointments and future orders which are active, pending or scheduled. Future Appointments This section includes appointments that were scheduled to occur 6 months from the date of the Encounter, up to a maximum of 20 appointments. The data comes from all [place] treatment facilities. Appointment Date/Time Appointment Type Appointme nt Facility Name Feb 17, 2024 01:00 PM AMBUL[facility]ORY - NONE [facility] Feb 21, 2024 10:00 AM AMBULATORY - MEDICINE [facility] Feb 24, 2024 12:15 PM AMBULATORY - MEDICINE [facility] Feb 24, 2024 01:00 PM AMBULATORY - MEDICINE [facility] Mar 02, 2024 01:00 PM AMBULATORY - REHAB MEDICIN E [facility] Apr 26, 2024 10:00 AM AMBULATORY - MEDICINE [facility] Active, Pending, and Scheduled Orders This section includes a listing of several types of active, pending, and scheduled orders, including clinic medications orders, diagnostic test orders, procedure orders and consult orders; where the start date of the order is 45 days before the date of the Encounter or 45 days after the date of the Encounter. The data comes from all [place] treatment facilities. Test Date/Time Test Type Test Details Facility Name Jan 18, 2024 04:23 PM Consult Order COMMUNITY CARE-ECHOCARDIOGRAPHY Cons Lay Brother[facility] Choice [facility] Jan 19, 2024 12:10 PM Consult Order COMMUNITY CARE-DERMATOLOGY Cons [facility] Jan 28, 2024 02:00 AM Laboratory - Chemi stry Order TROPONIN I, HS PLASMA STAT [facility] Mar 01, 2024 03:28 PM Consult Order IFC TRAVEL ING UNIVERSAL CONSULT-[place] Cons Lay Brother's Choice STAT [facility] Lab Results: +/- 30 days of the encounter This section includes the Chemistry and Hematology Lab Results on record with [place] for the patient. Radiology Reports and Pathology [...] 31, 2024 10:13 AM Reporting Lab: [facility] [id number] Performing Lab: [facility] [phone] HEMOGLOBIN A1C 5.4 4.0-6.0 Jan 31, 2024 10:50 AM [facility] LIPID PANEL,FASTING Specimen Type: PLASMA No comment entered. Ordering Provider: JLUIET SMART Report Released Date/Time: Jan 31, 2024 10:13 AM Reporting Lab: [facility] [address] Performing Lab: [facility] [address] CHOLESTEROL 125 mg/dL <199 TRIGLYCERIDE 95 mg/dL <149 .HDL 37 mg/dL L >40 LDL CALCULATION 69 mg/dL <99 VLDL CALCULATION 19 mg/dL <29 NON HDL CHOLESTEROL 88 mg/dL <129 Jan 31, 2024 07:29 AM [facility] CBC Specimen Type: BLOOD No comment entered. Ordering Provider: BASHIR CARVAJAL Report Released Date/Time: Jan 30, 2024 01:03 PM Reporting Lab: [facility] [address] Performing Lab: [facility] [address] WBC 7.3 4.0-11.0 RBC 3.83 L 4.60-6.20 [...] 30, 2024 01:03 PM Reporting Lab: [facility] [address] Performing Lab: [facility] [address] CREATININE 1.3 mg/dL H 0.7-1.2 UREA NITROGEN [...] 30, 2024 10:43 AM Reporting Lab: [facility] [address] Performing Lab: [facility] [address] POC ACT 241 s H 84-139 Jan 30, 2024 10:08 AM [facility] POC ACT Specimen Type: BLOOD No comment entered. Ordering Provider: RODO CHRISTY Report Released Date/Time: Jan 30, 2024 10:14 AM Reporting Lab: [facility] [address] Performing Lab: [facility] [address] POC ACT 289 s H 84-139 Jan 30, 2024 09:34 AM [facility] POC ACT Specimen Type: BLOOD No comment entered. Ordering Provider: RODO CHRISTY Report Released Date/Time: Jan 30, 2024 10:14 AM Reporting Lab: [facility] [address] Performing Lab: [facility] [address] POC ACT 294 s H 84-139 Jan 30, 2024 05:37 AM [facility] HEPARIN APTT Specimen Type: PLASMA No comment entered. Ordering Provider: BASHIR CARVAJAL Report Released Date/Time: Jan 29, 2024 09:43 PM Reporting Lab: [facility] [address] Performing Lab: [facility] [address] HEPARIN APTT 83.2 s 48.0-92.0 Jan 30, 2024 05:37 AM [facility] BASIC METABOLIC PANEL+MG Specimen Type: PLASMA No comment entered. Ordering Provider: BASHIR CARVAJAL Report Released Date/Time: Jan 29, 2024 12:19 PM Reporting Lab: [facility] [address] Performing Lab: [facility] [address] CREATININE 1.4 mg/dL H 0.7-1.2 UREA NITROGEN [...] To: Tomasa Delcid PharmD 01/29/24 @212[facility]. Critical value report confirmed. Ordering Provider: MERY SAMUEL Report Released Date/Time: Jan 29, 2024 03:00 PM Reporting Lab: [facility] [address] Performing Lab: [facility] [address] HEPARIN APTT 214.6 s HH 48.0-92.0 Jan 29, 2024 06:24 AM [facility] BASIC METABOLIC PANEL+MG Specimen Type: PLASMA No comment entered. Ordering Provider: BASHIR CARVAJAL Report Released Date/Time: Jan 28, 2024 04:36 PM Reporting Lab: [facility] [address] Performing Lab: [facility] [address] CREATININE 1.6 mg/dL H 0.7-1.2 UREA NITROGEN [...] No comment entered. Ordering Provider: RODO CHRISTY ONE Report Released Date/Time: Jan 28, 2024 05:54 AM Reporting Lab: [facility] [address] Performing Lab: [facility] [address] EXTRA PURPLE TUBE RECEIVED Jan 28, 2024 05:53 AM [facility] ALBUMIN Specimen Type: PLASMA No comment entered. Ordering Provider: BASHIR CARVAJAL Report Released Date/Time: Jan 27, 2024 04:49 PM Reporting Lab: [facility] [address] Performing Lab: [facility] [address] ALBUMIN 3.5 g/dL 3.5-5.2 Jan 28, 2024 05:53 AM [facility] BASIC METABOLIC PANEL+MG Specimen Type: PLASMA No comment entered. Ordering Provider: BASHIR CARVAJAL Report Released Date/Time: Jan 27, 2024 05:44 PM Reporting Lab: [facility] [address] Performing Lab: [facility] [address] CREATININE 1.4 mg/dL H 0.7-1.2 UREA NITROGEN [...] 27, 2024 09:15 PM Reporting Lab: [facility] [address] Performing Lab: [facility] [address] TROPONIN I, HS 128 HH <35 Jan 28, 2024 12:35 AM [facility] COVID-19 DIAGNOSTIC PANEL (CEPHEID) Specimen Type: NASOPHARYNGEAL Comment: Cepheid GeneXpert (618) Ordering Provider: ASH HAWTHORNE Report Released Date/Time: Jan 27, 2024 04:28 PM Reporting Lab: [facility] [address] Performing Lab: [facility] [address] COVID-19 (CEPHEID) Not Detected Not Detected Jan 28, 2024 12:35 AM [facility] HEPARIN APTT Specimen Type: PLASMA Comment: Critical Value Reported To: Deena Oliveros PharmD 01/28/24 @0110 HV. Critical value report confirmed. Ordering Provider: NATALIE ORDOÑEZ Report Released Date/Time: Jan 27, 2024 07:18 PM Reporting Lab: [facility] [address] Performing Lab: [facility] [address] HEPARIN APTT 133.9 s HH 48.0-92.0 Jan 28, 2024 12:35 AM [facility] TROPONIN I, HS Specimen Type: PLASMA Comment: Critical value previously reported on patient. Ordering Provider: BRANDON MEJIA Report Released Date/Time: Jan 27, 2024 09:15 PM Reporting Lab: [facility] [address] Performing Lab: [facility] [address] TROPONIN I, HS 158 HH <35 Jan 27, 2024 09:22 PM [facility] TROPONIN I, HS Specimen Type: PLASMA Comment: Critical value previously reported on patient. Ordering Provider: BASHIR CARVAJAL Report Released Date/Time: Jan 27, 2024 08:38 PM Reporting Lab: [facility] [address] Performing Lab: [facility] [address] TROPONIN I, HS 146 HH <35 Jan 27, 2024 06:52 PM [facility] TROPONIN I, HS Specimen Type: PLASMA Comment: Critical Value Reported To: Brandon Mejia MD 01/27/24 @[address] [place] [address]. Critical value report confirmed. Ordering Provider: BASHIR CARVAJAL Report Released Date/Time: Jan 27, 2024 04:54 PM Reporting Lab: [facility] [address] Performing Lab: [facility] [address] TROPONIN I, HS 136 HH <35 Jan 27, 2024 06:52 PM [facility] BASIC METABOLIC PANEL+MG Specimen Type: PLASMA No comment entered. Ordering Provider: BASHIR CARVAJAL Report Released Date/Time: Jan 27, 2024 04:54 PM Reporting Lab: [facility] [address] Performing Lab: [facility] [address] CREATININE 1.3 mg/dL H 0.7-1.2 UREA NITROGEN [...] 27, 2024 04:54 PM Reporting Lab: [facility] [address] Performing Lab: [facility] [address] WBC 6.0 4.0-11.0 RBC 3.91 L 4.60-6.20 [...] and tobacco- related health factors from the [place] facility where the Encounter took place. Current Smoking Status This section includes the most current smoking, or tobacco-related health factor, from the [place] facility where the Encounter took place. Date/Time Current Smoking Status Comment Mimi hernandez Dec 14, 2023 11:30 AM VA-TOBACCO FORMER USER [facility] Tobacco Use History This section includes a history of the smoking, or tobacco-related health factors, that were collected on or before the date of the Encounter. The data comes from the [place] facility where the Encounter took place. Date/Time [...] ALL of a patient's completed or amended [place] Advance and Rescinded Directives. The entries below indicate that a directive exists for the patient, but an actual copy is not included with this document. The data comes from all [facility]. Date Advance Directives Provider Source August 30, 2006 ADVANCE DIRECTIVE ARGENIS CRAMER [facility] Pathology Reports: +/- 30 days of [...] the Encounter. The data comes from all [place] treatment facilities. Date/Time Pathology Report Provider Source Jan 06, 2024 11:16 AM LR SURGICAL PATHOL OGY REPORT: LOCAL TITLE: LR SURGICAL PATHOLOGY REPORT STANDARD TITLE: PATHOLOGY REPORT DATE OF NOTE: JAN 06, 2024@11:16:39 ENTRY DATE: JAN 06, 2024@11:16:39 AUTHOR: JOSE REESE COSIGNER: URGENCY: STATUS: COMPLETED $APHDR Reporting Lab: [facility] [CLIA# [id number]] [place] [address] - - - - - - - [...] - PATHOLOGY REPORT Accession No. [id number] - - - - - - - [...] - PATHOLOGY REPORT Accession No. [id number] - - - - - - - [...] cm. The specimen is inked. CE. (D[facility] MICROSCOPIC DESCRIPTION: Microscopic examination performed. CI. DIAGNOSES: [...] Report Performed By: [facility] [CLIA# [id number]] [place] [address] $FTR - - - - - - [...] - - - - - GERI BOYKIN MAYRA STANDARD FORM 515 ID:[id number] SEX:M :1935 AGE: 88 LOC:[id number] PCP: Sariah Gomes MD /shelly/ JOSE REESE M.D. STAFF PATHOLOGIST Signed: 01/06/2024 11:16 JOSE REESE [facility] Encounter Notes: All associated encounter notes This section contains the clinical notes associated to the Encounter. Date/Time Encounter Note(s) Provider Source Jan 31, 2024 01:01 PM NURSING DISCHARGE NOTE: LOCAL TITLE: [facility] NURSING DISCHARGE SUMMARY STANDARD TITLE: NURSING DISCHARGE NOTE DATE OF NOTE: JAN 31, 2024@13:01 ENTRY DATE: JAN 31, 2024@13:01:25 AUTHOR: TRISHA KHAN EXP COSIGNER: URGENCY: STATUS: COMPLETED Nursing Discharge Summary [...] RN, BSN Signed: 01/31/2024 13:03 TRISHA KHAN [facility] Jan 31, 2024 12:29 PM DISCHARGE [...] . Juliet Smart DO Internal Medicine PGY-2 /shelly/ JULIET SMART RESIDENT Signed: 01/31/2024 10:43 /es/ MARZENA ROSSI M.D. STAFF JIG BORING MACHINE OPERATOR FOR METAL Cosigned: 02/07/2024 20:16 JULIET SMART [facility] Jan 31, 2024 12:07 PM EDUCATION DISCHARGE NOTE: LOCAL TITLE: EDUCATION NURSING DISCHARGE INSTRUCTIONS STANDARD TITLE: EDUCATION DISCHARGE NOTE DATE OF NOTE: JAN 31, 2024@12:07 ENTRY DATE: JAN 31, 2024@12:07:29 AUTHOR: TRISHA KHANIGNER: URGENCY: STATUS: COMPLETED IMPORTANT PHONE NUMBERS: IF YOU HAVE A LIFE THREATENING EMERGENCY CALL 911 If you have questions about anything related to your inpatient care at the [facility] or your future care in the [facility], call the Call Center or After Hour numbers listed below. If you receive care at another [place] facility or with a community provider, you will need to call them for questions about your future care. -Call Center Tuesday-Tuesday, 7:30-4:30 at [phone] or Toll Free -After Hours- toll-free -Outpatient Pharmacy - -Verification of Appointments for the following month - *'S CRISIS LINE NUMBER IS (TALK)* Discharge from ICU, Acute Care, Acute Rehab, or CLC C-SSRS Screening [place] Suicide Severity Rating Scale (C-SSRS) screener 1. [...] Primary Care Team: Primary Care Team: YANN REAVES *WILLIAM* Primary Care Provider: SARIAH GOMES No Associate [...] Treatments: None Supplies: Medication Patient instructed to picked edge sewing machine operator medication in outpatient pharmacy Continuing care needs: If you receive care at [place] you will need to call the Primary Care Call Center number at [phone]. If you receive care at another [place] facility or community provider, you will need to call them to arrange your follow up care. Follow up not ordered at this time. Call the Call Center if problems occur at [phone]. Future appointments: 02/21/2024 10:00 YANN THOMAS 4F INPATIENT APPOINTMENT 07/31/2024 09:20 YANN DERM PURPLE 2 INPATIENT APPOINTMENT 12/24/2024 09:20 YANN DERM RED INPATIENT APPOINTMENT A copy of these instructions has been given to: Patient IM - Immunizations ADMINISTERED Immunization Series Date Facility Reaction Info COVID-19 (MODERNA), MRNA, LNP-S,* 2 05/15/2020 [place] [facility]* COVID-19 (MODERNA), MRNA, LNP-S,* 1 04/17/2020 [facility] [place] [facility]* INFLUENZA, HIGH-DOSE, QUADRIVALE* 01/28/2023 [place]* INFLUENZA, HIGH-DOSE, QUADRIVALE* 02/13/2022 No Site <C> INFLUENZA, HIGH-DOSE, TRIVALENT,* 01/11/2024 [place] INFLUENZA, HIGH-DOSE, TRIVALENT,* 01/14/2018 [facility] [facility] INFLUENZA, HIGH-DOSE, TRIVALENT,* Local INFLUENZA, MDCK, QUADRIVALENT, PF 02/03/2017 [place]* <C> INFLUENZA, SPLIT VIRUS, QUADRIVA* 02/04/2021 [place]* [...] TOXOID,* 01/11/2006 [facility] [facility] TD(ADULT) UNSPECIFIED FORMULATION [place] TDAP 10/13/2022 [place] TDAP 01/18/2013 [place] <C> [...] RN, BSN Signed: 01/31/2024 13:01 TRISHA KHAN [facility] Jan 31, 2024 07:00 AM NURSING [...] Sinus Rhythm with 1st Degree AVB HR:60 NH Int:.26 QRS Int:.10 QT Int:.36 QTc Int:.36 Telemetry leads monitored this shift: II and V lead Alarm parameters verified this shift /shelly/ JOSE ASHBY telesales manager Signed: 01/31/2024 11:39 JOSE ASHBY [facility] Jan 31, 2024 02:55 AM NURSING [...] degrees unless otherwise ordered. /shelly/ MARLENA JUNG [employer] SUPERVISOR RN Signed: 01/31/2024 05:57 MARLENA JUNG [facility] Jan 31, 2024 02:26 AM NURSING NOTE: LOCAL TITLE: TELEMETRY AND OXIMETRY CENTRALIZED NOTE STANDARD TITLE: NURSING NOTE DATE OF NOTE: JAN 31, 2024@02:26 ENTRY DATE: JAN 31, 2024@02:26:51 AUTHOR: BRYCE BAKER EXP COSIGNER: URGENCY: STATUS: COMPLETED Telemetry (Cardiac) Monitor: Rhit Telemetry initiation date/time: Jan@19:00. Telemetry indication: Acute Coronary Syndrome Cardiac History: HTN, CKD, unstable angina with elevated troponin, Presentation c/w NSTEMI Cardiac rhythm interpretation: Sinus Bradycardia w/ 1st degree AVB HR:50 NH Int:0.263 QRS Int:0.098 QT Int:0.38 QTc Int:0.349 Telemetry leads monitored this shift: II and V lead Alarm parameters verified this shift and set at: 40-130. /es/ BRYCE BAKER [facility] Signed: 01/31/2024 02:27 BRYCE BAKER [facility] Jan 30, 2024 06:50 PM NURSING INPATIENT NOTE: LOCAL TITLE: [facility] NURSING PROGRESS NOTE STANDARD TITLE: NURSING INPATIENT NOTE DATE OF NOTE: JAN 30, 2024@18:50 ENTRY DATE: JAN 30, 2024@18:50:44 AUTHOR: TRISHA KHAN COSIGNER: URGENCY: STATUS: COMPLETED Nursing Shift Note Nursing care provided from Highlights from shift: alert and oriented, pleasant and cooperative with [...] RN, BSN Signed: 01/30/2024 18:55 TRISHA KHAN [facility] Jan 30, 2024 03:00 PM NURSING [...] interpretation: SINUS AMY W/1ST DEG AVB HR:53 NH Int:0.258 QRS Int:0.093 QT Int:0.375 QTc Int:0.352 Telemetry leads monitored this shift: II and V lead Alarm parameters verified this shift /shelly/ RHYS PANCHAL Stucco Laborer Signed: 01/30/2024 17:18 PRIYANKA TUCKER [facility] Jan 30, 2024 08:50 AM CONSENT: [...] full consent document can be accessed through [employer]. 3. Patient name: GERI BOYKIN 4. [...] REQUIRED Electronically Filed: 01/30/2024 by: BAYRON BENEDICT [facility] Jan 30, 2024 07:35 AM CARDIOLOGY INPATIENT NOTE: LOCAL TITLE: CARDIOLOGY INPT PROGRESS NOTE STANDARD TITLE: CARDIOLOGY INPATIENT NOTE DATE OF NOTE: JAN 30, 2024@07:35 ENTRY DATE: JAN 30, 2024@07:35:28 AUTHOR: BASHIR CARVAJAL COSIGNER: URGENCY: STATUS: COMPLETED INPATIENT PROGRESS NOTE CHANGES/UPDATES: - Angiogram today: PCI with SHAQ x2 to mid LAD Assessment/Plan: MrGuy Boykin is an 88yo male with PMH [...] Continue lisinopril 20 mg daily (01/26). Stop MIGRATORY FARM HAND hctz-lisinopril. -AC: Hep gtt -NSAIDS: Contraindicated -Needs cardiac rehab at discharge -A1c: 5.3% on 12/14/23 -Lipids: 12/14/23 TC 186, HDL 49, LDL 116 -Replete lytes to K>4, Mg>2 -Follow up with Interventional IN STORE DEMONSTRATOR in 1 month -Chronic Problems #Hypertension -Stop MIGRATORY FARM HAND hctz-lisinopril -Start lisinopril 20 mg daily (01/26) [...] BASHIR CARVAJAL RESIDENT PHYSICIAN Signed: 01/30/2024 13:02 ABSHIR CARVAJAL [facility] Jan 30, 2024 07:02 AM NURSING [...] AMY W/1ST DEG AVB & PVC'S HR:48 NH Int:0.239 QRS Int:0.083 QT Int:0.395 QTc Int:0.355 Telemetry leads monitored this shift: II and V lead Alarm parameters verified this shift /shelly/ RHYS PANCHAL Stucco Laborer Signed: 01/30/2024 09:16 PRIYANKA TUCKER [facility] Jan 30, 2024 03:48 AM NURSING NOTE: LOCAL TITLE: TELEMETRY AND OXIMETRY CENTRALIZED NOTE STANDARD TITLE: NURSING NOTE DATE OF NOTE: JAN 30, 2024@03:48 ENTRY DATE: JAN 30, 2024@03:48:03 AUTHOR: BRYCE BAKER EXP COSIGNER: URGENCY: STATUS: COMPLETED Telemetry (Cardiac) Monitor: Rhit Telemetry initiation date/time: Jan@19:00. Telemetry indication: Acute Coronary Syndrome Cardiac History: HTN, CKD, unstable angina with elevated troponin, Presentation c/w NSTEMI Cardiac rhythm interpretation: Sinus Bradycardia w/ 1st degree AVB HR:49 NH Int:0.249 QRS Int:0.083 QT Int:0.40 QTc Int:0.362 Telemetry leads monitored this shift: II and V lead Alarm parameters verified this shift and set at: 40-130. Parameter set/change by RN; during shift patient HR desats down into the 40's RN was notified during shift. /shelly/ BRYCE BAKER [facility] Signed: 01/30/2024 03:51 BRYCE BAKER [facility] Jan 30, 2024 03:04 AM NURSING INPATIENT NOTE: LOCAL TITLE: [facility] NURSING PROGRESS NOTE STANDARD TITLE: NURSING INPATIENT NOTE DATE OF NOTE: JAN 30, 2024@03:04 ENTRY DATE: JAN 30, 2024@03:04:27 AUTHOR: MARLENA JUNG EXP COSIGNER: URGENCY: STATUS: COMPLETED SUBJECT: nursing note Nursing Shift Note Nursing care provided from [phone] Highlights from shift: Pt A&Ox4. Afebrile. HR [...] that time, back down to 150/70. See [facility] for detailed assessment, Education provided on medication/cares this shift as needed Skin Interventions performed this shift: Patient kept clean and dry with barrier cream applied as ordered. Head of Bed kept below 30 degrees unless otherwise ordered. /nolan JUNG RN PHOTOGRAMMETRIST Signed: 01/30/2024 05:38 MARLENA JUNG [facility] Jan 29, 2024 05:19 PM CRITICAL CARE UNIT NOTE: LOCAL TITLE: [facility] INPATIENT FLOWSHEET STANDARD TITLE: CRITICAL CARE UNIT NOTE DATE OF NOTE: JAN 29, 2024@17:19 ENTRY DATE: JAN 29, 2024@17:20:11 AUTHOR: HORACE GARCIA I EXP COSIGNER: URGENCY: STATUS: COMPLETED Nursing Shift Note Nursing care provided from [phone] Highlights from shift: At approx 0800 pt c/o chest pain 10/ pt reports pain lasted approx 2 mins [...] inspected. 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 /shelly/ HORACE GARCIA RN REGISTERED NURSE Signed: 01/29/2024 17:25 HORACE GARCIA I [facility] Jan 29, 2024 03:00 PM NURSING [...] interpretation: SINUS RHYTHM W/1ST DEG AVB HR:72 NH Int:0.229 QRS Int:0.103 QT Int:0.327 QTc Int:0.358 Telemetry leads monitored this shift: II and V lead Alarm parameters verified this shift /shelly/ RHYS PANCHAL Stucco Laborer Signed: 01/29/2024 16:38 PRIYANKA TUCKER [facility] Jan 29, 2024 10:24 AM CARDIOLOGY [...] Continue lisinopril 20 mg daily (01/26). Stop MIGRATORY FARM HAND hctz-lisinopril. -AC: Hep gtt -NSAIDS: Contraindicated -Needs cardiac rehab at discharge -A1c: 5.3% on 12/14/23 -Lipids: 12/14/23 TC 186, HDL 49, LDL 116 -Replete lytes to K>4, Mg>2 -Chronic Problems #Hypertension -Stop MIGRATORY FARM HAND hctz-lisinopril -Start lisinopril 20 mg daily (01/26) [...] assessment and plan. Subjective: Episode of central /10 chest pain this morning at around 7:30AM that lasted 2-3 minutes and resolved with deep breathing. Did not receive nitroglycerin. 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 Last episode of chest pain was the [...] RESIDENT PHYSICIAN Signed: 01/29/2024 13:42 BASHIR CARVAJAL [facility] Jan 29, 2024 07:00 AM NURSING [...] interpretation: SINUS AMY W/1ST DEG AVB HR:57 NH Int:0.229 QRS Int:0.083 QT Int:0.375 QTc Int:0.365 Telemetry leads monitored this shift: II and V lead Alarm parameters verified this shift /shelly/ RHYS PANCHAL Stucco Laborer Signed: 01/29/2024 09:38 PRIYANKA TUCKER [facility] Jan 29, 2024 01:36 AM NURSING [...] Device(s) removed and skin underneath was inspected. /nolan JUNG [employer] SUPERVISOR RN Signed: 01/29/2024 06:50 MARLENA JUNG [facility] Jan 28, 2024 11:35 PM NURSING NOTE: LOCAL TITLE: TELEMETRY AND OXIMETRY CENTRALIZED NOTE STANDARD TITLE: NURSING NOTE DATE OF NOTE: JAN 28, 2024@23:35 ENTRY DATE: JAN 29, 2024@01:11:05 AUTHOR: RENA DRAKE EXP COSIGNER: URGENCY: STATUS: COMPLETED Telemetry (Cardiac) Monitor: Rhit Telemetry initiation date/time: Jan@19:00. Telemetry indication: Acute Coronary Syndrome Cardiac History: HTN, CKD Cardiac rhythm interpretation: SINUS BRADYCARDIA w/ 1st degree AVB HR:52 NH Int:.244 QRS Int:.093 QT Int:.38 QTc Int:.354 Telemetry leads monitored this shift: II and V lead Alarm parameters verified this shift /shelly/ RENA DRAKE Stucco Laborer Signed: 01/29/2024 01:11 RENA DRAKE [facility] Jan 28, 2024 06:48 PM NURSING [...] NURSE Signed: 01/28/2024 18:52 HORACE GARCIA I [facility] Jan 28, 2024 04:34 PM CARDIOLOGY [...] Continue lisinopril 20 mg daily (01/26). Stop MIGRATORY FARM HAND hctz-lisinopril. -AC: D/c Hep gtt -NSAIDS: Contraindicated -Plan for angiogram on Monday 01/29 -Needs cardiac rehab at discharge -A1c: 5.3% on 12/14/23 -Lipids: 12/14/23 TC 186, HDL 49, LDL 116 -Replete lytes to K>4, Mg>2 -Chronic Problems #Hypertension -Stop MIGRATORY FARM HAND hctz-lisinopril -Start lisinopril 20 mg daily #CKD3 [...] RESIDENT PHYSICIAN Signed: 01/28/2024 16:41 BASHIR CARVAJAL [facility] Jan 28, 2024 03:00 PM NURSING NOTE: LOCAL TITLE: TELEMETRY AND OXIMETRY CENTRALIZED NOTE STANDARD TITLE: NURSING NOTE DATE OF NOTE: JAN 28, 2024@15:00 ENTRY DATE: JAN 28, 2024@16:30:18 AUTHOR: PRIYANKA TUCKER EXP COSIGNER: URGENCY: STATUS: COMPLETED Telemetry (Cardiac) Monitor: RACHELE Shift Telemetry initiation date/time: Jan@19:00. Telemetry indication: Acute Coronary Syndrome Cardiac History: HTN, CKD Cardiac rhythm interpretation: SINUS RHYTHM HR:78 NH Int:0.2 QRS Int:0.095 QT Int:0.367 QTc Int:0.418 Telemetry leads monitored this shift: II and V lead Alarm parameters verified this shift /es/ PRIYANKA TUCKER [facility] Stucco Laborer Signed: 01/28/2024 16:31 PRIYANKA TUCKER [facility] Jan 28, 2024 07:00 AM NURSING [...] interpretation: SINUS AMY W/1ST DEG AVB HR:55 NH Int:0.239 QRS Int:0.093 QT Int:0.463 QTc Int:0.444 Telemetry leads monitored this shift: II and V lead Alarm parameters verified this shift /es/ PRIYANKA TUCKER [facility] Stucco Laborer Signed: 01/28/2024 10:42 PRIYANKA TUCKER [facility] Jan 28, 2024 02:25 AM NURSING INPATIENT [...] or with a deep breath. EKGs done, READING EFFICIENCY COURSE DIRECTOR and MD updated on pt having cp. BP's during/after cp episode: 163/79, 129/74 and 98/60. See ICCA for detailed assessment, Education provided on medication/cares this shift as needed Skin Interventions performed this shift: Patient kept clean and dry with barrier cream applied as ordered. Head of Bed kept below 30 degrees unless otherwise ordered. /shelly/ MARLENA JUNG, [employer] SUPERVISOR RN Signed: 01/28/2024 05:00 MARLENA JUNG [facility] Jan 27, 2024 11:16 PM NURSING NOTE: LOCAL TITLE: TELEMETRY AND OXIMETRY CENTRALIZED NOTE STANDARD TITLE: NURSING NOTE DATE OF NOTE: JAN 27, 2024@23:16 ENTRY DATE: JAN 28, 2024@01:22:21 AUTHOR: RENA DRAKE EXP COSIGNER: URGENCY: STATUS: COMPLETED Telemetry (Cardiac) Monitor: Rhit Telemetry initiation date/time: Jan@19:00. Telemetry indication: Acute Coronary Syndrome Cardiac History: HTN, CKD Cardiac rhythm interpretation: SINUS BRADYCARDIA w/ 1st degree AVB HR:48 NH Int:.234 QRS Int:.083 QT Int:.458 QTc Int:.409 Telemetry leads monitored this shift: II and V lead Alarm parameters verified this shift Alarm parameters modified from default settings: 50 to 130 as directed by nursing /shelly/ RENA DRAKE Stucco Laborer Signed: 01/28/2024 01:23 RENA DRAKE [facility] Jan 27, 2024 08:33 PM H [...] ischemia. He then presented to ED in [place] with chest pain and was found to have no new EKG changes however troponin was elevated to 0.18. Was started on heparin drip, loaded with aspirin, and transferred to [facility] for coronary angiogram. On arrival, he was chest pain-free. Blood pressure 140/80, heart rate 50s, satting well on room air. EKG without acute ischemic changes. Labs notable for troponin 136, K 3.4, Cr 1.3. Past Medical History: Active problems - Computerized Problem List is the source for the followin. Hydrocele Nos 2. Cataract, Senile, Unsp 3. Hypertension (SNOMED CT 90966696) 4. Hypothyroidism (SNOMED CT 50030194) 5. Hyperlipidemia 6. Hypermetropia/Hyperopia 7. Astigmatism, Unspec [...] BP: 138/79 (01/11/2024 13:25) Resp: 16 (01/11/2024 13:) Weight: 151 lb [68.49 kg] (01/11/2024 13:25) Pain: 0 (01/11/2024:25) O2 Sat: 98% (01/11/2024:) BMI: 23.7 Gen: [...] ACTIVE 4) HEPARIN INFUSION INJ,SOLN in HEPARIN 00426 UNT IN ACTIVE D5W 500 ML TITRATE*CONC [...] -SAVANNA: Start lisinopril 20 mg daily. Stop MIGRATORY FARM HAND hctz-lisinopril. -AC: Hep gtt. Stop once troponins downtrending. -NSAIDS: Contraindicated -Plan for angiogram on Sunday 01/28 -Needs cardiac rehab at discharge -A1c: 5.3% on 12/14/23 -Lipids: 12/14/23 TC 186, HDL 49, LDL 116 -Replete lytes to K>4, Mg>2 #Hypertension -Stop MIGRATORY FARM HAND hctz-lisinopril -Start lisinopril 20 mg daily #CKD3 [...] RESIDENT PHYSICIAN Signed: 01/27/2024 21:00 BASHIR CARVAJAL [facility] Jan 27, 2024 07:35 PM NURSING NOTE: LOCAL TITLE: TELEMETRY AND OXIMETRY CENTRALIZED NOTE STANDARD TITLE: NURSING NOTE DATE OF NOTE: JAN 27, 2024@19:35 ENTRY DATE: JAN 27, 2024@20:02:31 AUTHOR: RENA DRAKE EXP COSIGNER: URGENCY: STATUS: COMPLETED Telemetry (Cardiac) Monitor: Admit/Rhit Telemetry initiation date/time: Jan@19:00. Telemetry indication: Acute Coronary Syndrome Cardiac History: HTN, CKD Cardiac rhythm interpretation: SINUS BRADYCARDIA w/ 1st degree AVB HR:55 NH Int:.234 QRS Int:.098 QT Int:.346 QTc Int:.331 Telemetry leads monitored this shift: II and V lead Alarm parameters verified this shift Alarm parameters modified from default settings: 50 to 130 as directed by nursing /shelly/ RENA DRAKE Stucco Laborer Signed: 01/27/2024 20:04 RENA DRAKE [facility] Jan 27, 2024 06:46 PM PHARMACY MEDICATION MGT NOTE: LOCAL TITLE: DRUG RECONCILIATION ON ADMIT STANDARD TITLE: PHARMACY MEDICATION MGT NOTE DATE OF NOTE: JAN 27, 2024@18:46 ENTRY DATE: JAN 27, 2024@18:46:15 AUTHOR: JULIETA OSULLIVAN: URGENCY: STATUS: COMPLETED PHARMACY MEDICATION HISTORY NOTE [...] no relevant meds for the patient. See [facility] Emergency Department documentation for medications given during emergency department visit. Seasonal Influenza Immunization: INFLUENZA, HIGH-DOSE, TRIVALENT,* 01/11/2024 [place]* INTERVIEW Patient and/or caregiver has been INTERVIEWED by pharmacy. Patient reports that he transferred here from [facility]. Allergies: FACILITY ALLERGY/ADR -------- Lindsey CURTIS [facility] NO KNOWN ALLERGIES [facility] No Known Allergies [facility] NO KNOWN ALLERGIES Patient reports last scheduled [...] ACTIVE 3) HEPARIN INFUSION INJ,SOLN in HEPARIN 25634 UNT IN ACTIVE D5W 500 ML TITRATE*CONC [...] PENDING 10 Total Medications /es/ JULIETA OSULLIVAN PAINTER DECORATOR Signed: 01/27/2024 19:48 Receipt Acknowledged By: 01/27/2024 20:31 /es/ COREY MASSEY Pharmacist 01/27/2024 20:08 /es/ Natalie Ordoñez, PharmD, [facility] PHARMACIST 01/29/2024 11:04 /es/ BAHSIR CARVAJAL RESIDENT PHYSICIAN JULIETA OSULLIVAN [facility] Jan 27, 2024 04:51 PM TREATMENT [...] short of breath. Monitor heart rate/rhythm / kennel helper vital signs every 5 min during initial [...] NURSE Signed: 01/27/2024 16:54 HORACE GARCIA I [facility] Jan 27, 2024 04:46 PM NURSING ADMISSION EVALUATION NOTE: LOCAL TITLE: [facility] ACUTE INPATIENT NSG ADMISSION SCREEN STANDARD TITLE: NURSING ADMISSION EVALUATION NOTE DATE OF NOTE: JAN 27, 2024@16:46 ENTRY DATE: JAN 27, 2024@16:46:53 AUTHOR: HORACE GACRIA I EXP COSIGNER: URGENCY: STATUS: COMPLETED ===== ALLERGY/ADVERSE DRUG REACTION (ADR) REVIEW (MRT5) ===== FACILITY ALLERGY/ADR -------- Lindsey CUTRIS DEPT OF [facility] NO KNOWN ALLERGIES [facility] No Known Allergies [facility] NO KNOWN ALLERGIES Allergy/Adverse Drug Reaction Review to be conducted by: Other: Allergy review by: pharmacy ==== MEDICATION REVIEW (MRR1) ==== Did patient bring medication(s) from home? No Medication Review to be conducted by pharmacy ==== GENERAL INFORMATION ==== Admission information given by: Patient Is there a legal guardian/conservator? No Preferred language for discussing healthcare: Estonian Preferred mode of communication: Verbal Items at [...] desire to leave. === SUICIDE SCREEN === [place] Suicide Severity Rating Scale (C-SSRS) 1. Over [...] practices or spiritual concerns you want the systems development manager, your provider, and other health care team members to know? No ==== ANTICIPATED DISCHARGE NEEDS ==== Where do you live? Housing owned/rented by [facility]: Method of transportation upon discharge: Private Vehicle: [...] NURSE Signed: 01/27/2024 16:51 HORACE GARCIA I [facility]
--- OUTSIDE RECORDS SUMMARY | 2024-03-10 19:36 | XMS_ITS | Encounter Summary ---
Author Name [facility] Address [address] [place] [address] Care Team Providers Care Engineering Executive Name Role Phone SARIAH GOMES Primary Care [...] PART A Sep 09, 2002 PART A [id number] JOAQIUN COUGHLIN S PATIENT MEDICARE (WNR) MEDICARE (M) PART B Sep 09, 2002 PART B [id number] JOAQUIN COUGHLIN S PATIENT MEDICARE (WNR) MEDICARE (M) PART A Sep 09, 2002 PART A [id number] JOAQUIN COUGHLIN S PATIENT MEDICARE (WNR) MEDICARE (M) PART B Sep 09, 2002 PART B [id number] JOAQUIN COUGHLIN PATIENT Selected [...] activities for the patient from all [facility]. This section includes future appointments and future orders which are active, pending or scheduled. Future Appointments This section includes appointments that were scheduled to occur 6 months from the date of the Encounter, up to a maximum of 20 appointments. The data comes from all [facility]. Appointment Date/Time Appointment Type Appointme nt Facility Name Jan 27, 2024 11:47 AM AMBULATORY - NONE [facility] Feb 17, 2024 01:00 PM AMBULATORY - NONE [facility] Feb 21, 2024 10:00 AM AMBULATORY - MEDICINE [facility] Feb 24, 2024 12:15 PM AMBULATORY - MEDICINE [facility] Feb 24, 2024 01:00 PM AMBULATORY - MEDICINE [facility] Mar 02, 2024 01:00 PM AMBULATORY - REHAB [facility] Apr 26, 2024 10:00 AM AMBULATORY - MEDICINE [facility] Active, Pending, and Scheduled Orders This section includes a listing of several types of active, pending, and scheduled orders, including clinic medications orders, diagnostic test orders, procedure orders and consult orders; where the start date of the order is 45 days before the date of the Encounter or 45 days after the date of theEncounter. The data comes from all [facility]. Test Date/Time Test Type Test Details Facility Name Jan 18, 2024 04:23 PM Consult Order COMMUNITY CARE-ECHOCARDIOGRAPHY [facility] [employer] [facility] Jan 19, 2024 12:10 PM Consult Order COMMUNITY CARE-DERMATOLOGY [facility] Jan 28, 2024 02:00 AM Laboratory - Chemi stry Order TROPONIN I, HS PLASMA STAT [facility] Mar 01, 2024 03:28 PM Consult Order IFC TRAVEL ING UNIVERSAL CONSULT-[place] [facility] Lab Results: +/- 30 days [...] Range Comment Jan 31, 2024 10:50 AM [facility] HEMOGLOBIN A1C Specimen Type: BLOOD Comment: Values [...] Jan 31, 2024 10:13 AM Reporting Lab: [facility] [id number] Performing Lab: [facility] [address] HEMOGLOBIN A1C 5.4 4.0-6.0 Jan 31, 2024 10:50 AM [facility] LIPID PANEL,FASTING Specimen Type: PLASMA No comment entered. Ordering Provider: JULIET SMART Report Released Date/Time: Jan 31, 2024 10:13 AM Reporting Lab: [facility] [address] Performing Lab: [facility] [address] CHOLESTEROL 125 mg/dL <199 TRIGLYCERIDE 95 mg/dL <149 .HDL 37 mg/dL L >40 LDL CALCULATION 69 mg/dL <99 VLDL CALCULATION 19 mg/dL <29 NON HDL CHOLESTEROL 88 mg/dL <129 Jan 31, 2024 07:29 AM [facility] CBC Specimen Type: BLOOD No comment entered. Ordering Provider: BASHIR CARVAJAL Report Released Date/Time: Jan 30, 2024 01:03 PM Reporting Lab: [facility] [address] Performing Lab: [facility] [address] WBC 7.3 4.0-11.0 RBC 3.83 L 4.60-6.20 HGB 11.4 g/dL L 13.5-17.9 HCT 35.1 L 41.0-54.0 MCV 91.6 fL 80.0-100.0 MCH 29.8 pg 27.0-33.0 MCHC 32.5 g/dL 32.0-37.5 PLT 193 150-400 MPV 10.7 fL 9.1-13.0 RDW 12.2 11.5-14.5 Jan 31, 2024 07:29 AM [facility] BASIC METABOLIC PANEL+MG Specimen Type: PLASMA No comment entered. Ordering Provider: BASHIR CARVAJAL Report Released Date/Time: Jan 30, 2024 01:03 PM Reporting Lab: [facility] [phone] Performing Lab: [facility] [address] CREATININE 1.3 mg/dL H 0.7-1.2 UREA NITROGEN 24 mg/dL 8-26 GLUCOSE 91 mg/dL 70-100 SODIUM 138 mmol/L 136-145 POTASSIUM 4.1 mmol/L 3.5-5.1 CHLORIDE 108 mmol/L H 98-107 CO2 23 mmol/L 22-29 CALCIUM 8.8 mg/dL 8.4-10.2 MAGNESIUM 2.1 mg/dL 1.6-2.6 ANION GAP 7 mmol/L 5-15 .CREAT EGFR(CKD-EPI) 54 L >60 Jan 30, 2024 10:37 AM [facility] POC ACT Specimen Type: BLOOD No comment entered. Ordering Provider: RODO CHRISTY Report Released Date/Time: Jan 30, 2024 10:43 AM Reporting Lab: [facility] [address] Performing Lab: [facility] [address] POC ACT 241 s H 84-139 Jan 30, 2024 10:08 AM [facility] POC ACT Specimen Type: BLOOD No comment entered. Ordering Provider: RODO CHRISTY Report Released Date/Time: Jan 30, 2024 10:14 AM Reporting Lab: [facility] [phone] Performing Lab: [facility] [address] POC ACT 289 s H 84-139 Jan 30, 2024 09:34 AM [facility] POC ACT Specimen Type: BLOOD No comment entered. Ordering Provider: RODO CHRISTY Report Released Date/Time: Jan 30, 2024 10:14 AM Reporting Lab: [facility] [address] Performing Lab: [facility] [address] POC ACT 294 s H 84-139 Jan 30, 2024 05:37 AM [facility] HEPARIN APTT Specimen Type: PLASMA No comment entered. Ordering Provider: BASHIR CARVAJAL Report Released Date/Time: Jan 29, 2024 09:43 PM Reporting Lab: [facility] [address] Performing Lab: [facility] [address] HEPARIN APTT 83.2 s 48.0-92.0 Jan 30, 2024 05:37 AM [facility] BASIC METABOLIC PANEL+MG Specimen Type: PLASMA No comment entered. Ordering Provider: BASHIR CARVAJAL Report Released Date/Time: Jan 29, 2024 12:19 PM Reporting Lab: [facility] [phone] Performing Lab: [facility] [address] CREATININE 1.4 mg/dL H 0.7-1.2 UREA NITROGEN 27 mg/dL H 8-26 GLUCOSE 95 mg/dL 70-100 SODIUM 139 mmol/L 136-145 POTASSIUM 4.2 mmol/L 3.5-5.1 CHLORIDE 109 mmol/L H 98-107 CO2 24 mmol/L 22-29 CALCIUM 9.0 mg/dL 8.4-10.2 MAGNESIUM 2.1 mg/dL 1.6-2.6 ANION GAP 6 mmol/L 5-15 .CREAT EGFR(CKD-EPI) 49 L >60 Jan 29, 2024 09:02 PM [facility] HEPARIN APTT Specimen Type: PLASMA Comment: Critical Value Reported To: Tomasa Delcid PharmD 01/29/24 @[address] [place] [address]. Critical value report confirmed. Ordering Provider: MERY SAMUEL Report Released Date/Time: Jan 29, 2024 03:00 PM Reporting Lab: [facility] [address] Performing Lab: [facility] [address] HEPARIN APTT 214.6 s HH 48.0-92.0 Jan 29, 2024 06:24 AM [facility] BASIC METABOLIC PANEL+MG Specimen Type: PLASMA No comment entered. Ordering Provider: BASHIR CARVAJAL Report Released Date/Time: Jan 28, 2024 04:36 PM Reporting Lab: [facility] [address] Performing Lab: [facility] [address] CREATININE 1.6 mg/dL H 0.7-1.2 UREA NITROGEN 27 mg/dL H 8-26 GLUCOSE 92 mg/dL 70-100 SODIUM 140 mmol/L 136-145 POTASSIUM 4.2 mmol/L 3.5-5.1 CHLORIDE 110 mmol/L H 98-107 CO2 25 mmol/L 22-29 CALCIUM 8.8 mg/dL 8.4-10.2 MAGNESIUM 2.1 mg/dL 1.6-2.6 ANION GAP 5 mmol/L 5-15 .CREAT EGFR(CKD-EPI) 42 L >60 Jan 28, 2024 05:54 AM [facility] EXTRA PURPLE TUBE Specimen Type: BLOOD No comment entered. Ordering Provider: RODO CHRISTY Report Released Date/Time: Jan 28, 2024 05:54 AM Reporting Lab: [facility] [address] Performing Lab: [facility] [address] EXTRA PURPLE TUBE RECEIVED Jan 28, 2024 05:53 AM [facility] ALBUMIN Specimen Type: PLASMA No comment entered. Ordering Provider: BASHIR CARVAJAL Report Released Date/Time: Jan 27, 2024 04:49 PM Reporting Lab: [facility] [address] Performing Lab: [facility] [address] ALBUMIN 3.5 g/dL 3.5-5.2 Jan 28, 2024 05:53 AM [facility] BASIC METABOLIC PANEL+MG Specimen Type: PLASMA No comment entered. Ordering Provider: BASHIR CARVAJAL Report Released Date/Time: Jan 27, 2024 05:44 PM Reporting Lab: [facility] [address] Performing Lab: [facility] [address] CREATININE 1.4 mg/dL H 0.7-1.2 UREA NITROGEN 28 mg/dL H 8-26 GLUCOSE 92 mg/dL 70-100 SODIUM 140 mmol/L 136-145 POTASSIUM 4.4 mmol/L 3.5-5.1 CHLORIDE 109 mmol/L H 98-107 CO2 23 mmol/L 22-29 CALCIUM 8.8 mg/dL 8.4-10.2 MAGNESIUM 2.1 mg/dL 1.6-2.6 ANION GAP 8 mmol/L 5-15 .CREAT EGFR(CKD-EPI) 49 L >60 Jan 28, 2024 05:52 AM [facility] TROPONIN I, HS Specimen Type: PLASMA Comment: Critical value previously reported on patient. Ordering Provider: BRANDON MEJIA Report Released Date/Time: Jan 27, 2024 09:15 PM Reporting Lab: [facility] [address] Performing Lab: [facility] [address] TROPONIN I, HS 128 HH <35 Jan 28, 2024 12:35 AM [facility] COVID-19 DIAGNOSTIC PANEL (CEPHEID) Specimen Type: NASOPHARYNGEAL Comment: Cepheid GeneXpert (618) Ordering Provider: LUCAS HAWTHORNE Report Released Date/Time: Jan 27, 2024 04:28 PM Reporting Lab: [facility] [address] Performing Lab: [facility] [address] COVID-19 (CEPHEID) Not Detected Not Detected Jan 28, 2024 12:35 AM [facility] HEPARIN APTT Specimen Type: PLASMA Comment: Critical Value Reported To: Deena Oliveros PharmD 01/28/24 @0110 HV. Critical value report confirmed. Ordering Provider: NATALIE ORDOÑEZ Report Released Date/Time: Jan 27, 2024 07:18 PM Reporting Lab: [facility] [address] Performing Lab: [facility] [address] HEPARIN APTT 133.9 s HH 48.0-92.0 Jan 28, 2024 12:35 AM [facility] TROPONIN I, HS Specimen Type: PLASMA Comment: Critical value previously reported on patient. Ordering Provider: BRANDON MEJIA Report Released Date/Time: Jan 27, 2024 09:15 PM Reporting Lab: [facility] [address] Performing Lab: [facility] [address] TROPONIN I, HS 158 HH <35 Jan 27, 2024 09:22 PM [facility] TROPONIN I, HS Specimen Type: PLASMA Comment: Critical value previously reported on patient. Ordering Provider: BASHIR CARVAJAL Report Released Date/Time: Jan 27, 2024 08:38 PM Reporting Lab: [facility] [address] Performing Lab: [facility] [address] TROPONIN I, HS 146 HH <35 Jan 27, 2024 06:52 PM [facility] TROPONIN I, HS Specimen Type: PLASMA Comment: Critical Value Reported To: Brandon Mejia MD 01/27/24 @[address] [place] [address]. Critical value report confirmed. Ordering Provider: BASHIR CARVAJAL Report Released Date/Time: Jan 27, 2024 04:54 PM Reporting Lab: [facility] [address] Performing Lab: [facility] [address] TROPONIN I, HS 136 HH <35 Jan 27, 2024 06:52 PM [facility] CBC Specimen Type: BLOOD No comment entered. Ordering Provider: BASHIR CARVAJAL Report Released Date/Time: Jan 27, 2024 04:54 PM Reporting Lab: [facility] [address] Performing Lab: [facility] [address] WBC 6.0 4.0-11.0 RBC 3.91 L 4.60-6.20 HGB 12.1 g/dL L 13.5-17.9 HCT 36.5 L 41.0-54.0 MCV 93.4 fL 80.0-100.0 MCH 30.9 pg 27.0-33.0 MCHC 33.2 g/dL 32.0-37.5 PLT 177 150-400 MPV 10.7 fL 9.1-13.0 RDW 12.4 11.5-14.5 Jan 27, 2024 06:52 PM [facility] BASIC METABOLIC PANEL+MG Specimen Type: PLASMA No comment entered. Ordering Provider: BASHIR CARVAJAL Report Released Date/Time: Jan 27, 2024 04:54 PM Reporting Lab: [facility] [address] Performing Lab: [facility] [address] CREATININE 1.3 mg/dL H 0.7-1.2 UREA NITROGEN [...] 14, 2023 11:30 AM VA-TOBACCO FORMER USER [facility] Tobacco Use History This section includes a history of the smoking, or tobacco-related health factors, that were collected on or before the date of the Encounter. The data comes from the [place] facility where the Encounter took place. Date/Time Smoking Status/Tobacco Use Comment F acility Dec 14, 2023 11:30 AM VA-TOBACCO QUIT 15 YRS OR MORE [facility] Oct 13, 2022 01:30 PM VA-TOBACCO FORMER USER [facility] Oct 13, 2022 01:30 PM VA-TOBACCO QUIT 15 YRS OR MORE [facility] Jul 27, 2021 10:00 AM VA-TOBACCO FORMER USER [facility] Jul 27, 2021 10:00 AM VA-TOBACCO QUIT 15 YRS OR MORE [facility] Jan 02, 2020 09:00 AM VA-TOBACCO FORMER USER [facility] Jan 02, 2020 09:00 AM VA-TOBACCO QUIT 15 YRS OR MORE [facility] Jul 21, 2018 03:00 PM VA-TOBACCO FORMER USER [facility] Jul 21, 2018 03:00 PM VA-TOBACCO QUIT 15 YRS OR MORE [facility] Dec 24, 2016 08:01 AM FORMER TOBACCO USER 7Y OR GREATE R [facility] Dec 23, 2015 08:23 AM FORMER TOBACCO USE >1Y <7Y [facility] Dec 26, 2014 10:32 AM FORMER TOBACCO USER 7Y OR GREATE R [facility] August 13, 2013 08:22 AM LIFETIME NON-TOBACCO USER [facility] August 30, 2006 08:38 AM FORMER TOBACCO USER 7Y OR GREATE R [facility] Advance Directives: All historical and current [...] COSIGNER: URGENCY: STATUS: COMPLETED $APHDR Reporting Lab: [facility] [CLIA# [id number]] [place] [address] - - - - - - - [...] - PATHOLOGY REPORT Accession No. [id number] - - - - - - - [...] - PATHOLOGY REPORT Accession No. [id number] - - - - - - - [...] 0.1 cm. The specimen is inked. CE. (D)[facility] MICROSCOPIC DESCRIPTION: Microscopic examination performed. CI. 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 STAFF PATHOLOGIST Signed Jan 06, 2024@11:16 Performing Laboratory: Surgical Pathology Report Performed By: [facility] [CLIA# [id number]] [place] [address] $FTR - - - - - - [...] - - MADYSON,GERI NUNEZ STANDARD FORM 515 ID:[id number] SEX:M :1935 AGE: 88 LOC:[id number] PCP: Sariah Gomes MD /shelly/ JOSE REESE M.D. STAFF PATHOLOGIST Signed: 01/06/2024 11:16 JOSE REESE [facility] Encounter Notes: All associated encounter notes [...] disorder? No Covid symptoms on appt date? Juda understands should he have flu/covid symptoms on [...] Surgery Coordinator Signed: 02/16/2024 09:38 [facility]
--- OUTSIDE RECORDS SUMMARY | 2024-03-10 19:36 | XMS_ITS | Encounter Summary ---
Author Name [facility] [place] [facility] [place] [facility] [facility] [place] Address [address] [place] [address] Care Team Providers Care Colorer Machine Name Role Phone SARIAH GOMES Primary Care [...] PART B Sep 09, 2002 PART B [id number] JOAQUIN COUGHLIN S PATIENT MEDICARE (WNR) MEDICARE (M) PART A Sep 09, 2002 PART A [id number] JOAQUIN COUGHLIN S PATIENT MEDICARE (WNR) MEDICARE (M) PART A Sep 09, 2002 PART A [id number] JOAQUIN COUGHLIN S PATIENT MEDICARE (WNR) MEDICARE (M) PART B Sep 09, 2002 PART B [id number] JOAQUIN COUGHLIN S PATIENT [...] activities for the patient from all [facility] This section includes future appointments and future orders which are active, pending or scheduled. Future Appointments This section includes appointments that were scheduled to occur 6 months from the date of the Encounter, up to a maximum of 20 appointments. The data comes from all [place] [facility]. Appointment Date/Time Appointment Type Appointme nt Facility Name Feb 17, 2024 01:00 PM AMB[facility]ORY - NONE [place] [facility] Feb 21, 2024 10:00 AM AMBULATORY - MEDICINE [facility] Feb 24, 2024 12:15 PM AMBULATORY - MEDICINE [facility] Feb 24, 2024 01:00 PM AMBULATORY - MEDICINE [facility] Mar 02, 2024 01:00 PM AMBULATORY - REHAB MEDICIN [facility] Apr 26, 2024 10:00 AM AMBULATORY - MEDICINE [facility] Active, Pending, and Scheduled Orders This section includes a listing of several types of active, pending, and scheduled orders, including clinic medications orders, diagnostic test orders, procedure orders and consult orders; where the start date of the order is 45 days before the date of the Encounter or 45 days after the date of theEncounter. The data comes from all [place] [facility]. Test Date/Time Test Type Test Details Facility Name Jan 18, 2024 04:23 PM Consult Order COMMUNITY CARE-ECHOCARDIOGRAPHY [facility] Jan 19, 2024 12:10 PM Consult Order COMMUNITY CARE-DERMATOLOGY [facility] Jan 28, 2024 02:00 AM Laboratory - Chemi stry Order TROPONIN I, HS PLASMA STAT [facility] Mar 01, 2024 03:28 PM Consult Order IFC TRAVEL ING [facility] Lab Results: +/- 30 days [...] Range Comment Jan 31, 2024 10:50 AM [facility] HEMOGLOBIN A1C Specimen Type: BLOOD Comment: [...] 31, 2024 10:13 AM Reporting Lab: [facility] [phone] Performing Lab: [facility] [phone] HEMOGLOBIN A1C 5.4 4.0-6.0 Jan 31, 2024 10:50 AM [facility] LIPID PANEL,FASTING Specimen Type: PLASMA No comment entered. Ordering Provider: JULIET SMART Report Released Date/Time: Jan 31, 2024 10:13 AM Reporting Lab: [facility] [phone] Performing Lab: [facility] [address] CHOLESTEROL 125 mg/dL <199 TRIGLYCERIDE 95 mg/dL <149 .HDL 37 mg/dL L >40 LDL CALCULATION 69 mg/dL <99 VLDL CALCULATION 19 mg/dL <29 NON HDL CHOLESTEROL 88 mg/dL <129 Jan 31, 2024 07:29 AM [facility] CBC Specimen Type: BLOOD No comment entered. Ordering Provider: BASHIR CARVAJAL Report Released Date/Time: Jan 30, 2024 01:03 PM Reporting Lab: [facility] [phone] Performing Lab: [facility] [address] WBC 7.3 4.0-11.0 RBC 3.83 L 4.60-6.20 HGB 11.4 g/dL L 13.5-17.9 HCT 35.1 L 41.0-54.0 MCV 91.6 fL 80.0-100.0 MCH 29.8 pg 27.0-33.0 MCHC 32.5 g/dL 32.0-37.5 PLT 193 150-400 MPV 10.7 fL 9.1-13.0 RDW 12.2 11.5-14.5 Jan 31, 2024 07:29 AM [facility] BASIC METABOLIC PANEL+MG Specimen Type: PLASMA No comment entered. Ordering Provider: BASHIR CARVAJAL Report Released Date/Time: Jan 30, 2024 01:03 PM Reporting Lab: [facility] [phone] Performing Lab: [facility] [phone] CREATININE 1.3 mg/dL H 0.7-1.2 UREA NITROGEN 24 mg/dL 8-26 GLUCOSE 91 mg/dL 70-100 SODIUM 138 mmol/L 136-145 POTASSIUM 4.1 mmol/L 3.5-5.1 CHLORIDE 108 mmol/L H 98-107 CO2 23 mmol/L 22-29 CALCIUM 8.8 mg/dL 8.4-10.2 MAGNESIUM 2.1 mg/dL 1.6-2.6 ANION GAP 7 mmol/L 5-15 .CREAT EGFR(CKD-EPI) 54 L >60 Jan 30, 2024 10:37 AM [facility] POC ACT Specimen Type: BLOOD No comment entered. Ordering Provider: RODO CHRISTY Report Released Date/Time: Jan 30, 2024 10:43 AM Reporting Lab: [facility] [phone] Performing Lab: [facility] [address] POC ACT 241 s H 84-139 Jan 30, 2024 10:08 AM [facility] POC ACT Specimen Type: BLOOD No comment entered. Ordering Provider: RODO CHIRSTY Report Released Date/Time: Jan 30, 2024 10:14 AM Reporting Lab: [facility] [phone] Performing Lab: [facility] [address] POC ACT 289 s H 84-139 Jan 30, 2024 09:34 AM [facility] POC ACT Specimen Type: BLOOD No comment entered. Ordering Provider: RODO CHRISTY Report Released Date/Time: Jan 30, 2024 10:14 AM Reporting Lab: [facility] [phone] Performing Lab: [facility] [address] POC ACT 294 s H 84-139 Jan 30, 2024 05:37 AM [facility] HEPARIN APTT Specimen Type: PLASMA No comment entered. Ordering Provider: BASHIR CARVAJAL Report Released Date/Time: Jan 29, 2024 09:43 PM Reporting Lab: [facility] [phone] Performing Lab: [facility] [address] HEPARIN APTT 83.2 s 48.0-92.0 Jan 30, 2024 05:37 AM [facility] BASIC METABOLIC PANEL+MG Specimen Type: PLASMA No comment entered. Ordering Provider: BASHIR CARVAJAL Report Released Date/Time: Jan 29, 2024 12:19 PM Reporting Lab: [facility] [address] Performing Lab: [facility] [phone] CREATININE 1.4 mg/dL H 0.7-1.2 UREA NITROGEN 27 mg/dL H 8-26 GLUCOSE 95 mg/dL 70-100 SODIUM 139 mmol/L 136-145 POTASSIUM 4.2 mmol/L 3.5-5.1 CHLORIDE 109 mmol/L H 98-107 CO2 24 mmol/L 22-29 CALCIUM 9.0 mg/dL 8.4-10.2 MAGNESIUM 2.1 mg/dL 1.6-2.6 ANION GAP 6 mmol/L 5-15 .CREAT EGFR(CKD-EPI) 49 L >60 Jan 29, 2024 09:02 PM [facility] HEPARIN APTT Specimen Type: PLASMA Comment: Critical Value Reported To: Tomasa Delcid PharmD 01/29/24 @[address] [place] [address]. Critical value report confirmed. Ordering Provider: MERY SAMUEL Report Released Date/Time: Jan 29, 2024 03:00 PM Reporting Lab: [facility] [phone] Performing Lab: [facility] [address] HEPARIN APTT 214.6 s HH 48.0-92.0 Jan 29, 2024 06:24 AM [facility] BASIC METABOLIC PANEL+MG Specimen Type: PLASMA No comment entered. Ordering Provider: BASHIR CARVAJAL Report Released Date/Time: Jan 28, 2024 04:36 PM Reporting Lab: [facility] [address] Performing Lab: [facility] [address] CREATININE 1.6 mg/dL H 0.7-1.2 UREA NITROGEN 27 mg/dL H 8-26 GLUCOSE 92 mg/dL 70-100 SODIUM 140 mmol/L 136-145 POTASSIUM 4.2 mmol/L 3.5-5.1 CHLORIDE 110 mmol/L H 98-107 CO2 25 mmol/L 22-29 CALCIUM 8.8 mg/dL 8.4-10.2 MAGNESIUM 2.1 mg/dL 1.6-2.6 ANION GAP 5 mmol/L 5-15 .CREAT EGFR(CKD-EPI) 42 L >60 Jan 28, 2024 05:54 AM [facility] EXTRA PURPLE TUBE Specimen Type: BLOOD No comment entered. Ordering Provider: RODO CHRISTY Report Released Date/Time: Jan 28, 2024 05:54 AM Reporting Lab: [facility] [phone] Performing Lab: [facility] [address] EXTRA PURPLE TUBE RECEIVED Jan 28, 2024 05:53 AM [facility] ALBUMIN Specimen Type: PLASMA No comment entered. Ordering Provider: BASHIR CARVAJAL Report Released Date/Time: Jan 27, 2024 04:49 PM Reporting Lab: [facility] [phone] Performing Lab: [facility] [address] ALBUMIN 3.5 g/dL 3.5-5.2 Jan 28, 2024 05:53 AM [facility] BASIC METABOLIC PANEL+MG Specimen Type: PLASMA No comment entered. Ordering Provider: BASHIR CARVAJAL Report Released Date/Time: Jan 27, 2024 05:44 PM Reporting Lab: [facility] [phone] Performing Lab: [facility] [address] CREATININE 1.4 mg/dL H 0.7-1.2 UREA NITROGEN 28 mg/dL H 8-26 GLUCOSE 92 mg/dL 70-100 SODIUM 140 mmol/L 136-145 POTASSIUM 4.4 mmol/L 3.5-5.1 CHLORIDE 109 mmol/L H 98-107 CO2 23 mmol/L 22-29 CALCIUM 8.8 mg/dL 8.4-10.2 MAGNESIUM 2.1 mg/dL 1.6-2.6 ANION GAP 8 mmol/L 5-15 .CREAT EGFR(CKD-EPI) 49 L >60 Jan 28, 2024 05:52 AM [facility] TROPONIN I, HS Specimen Type: PLASMA Comment: Critical value previously reported on patient. Ordering Provider: BRANDON MEJIA Report Released Date/Time: Jan 27, 2024 09:15 PM Reporting Lab: [facility] [phone] Performing Lab: [facility] [address] TROPONIN I, HS 128 HH <35 Jan 28, 2024 12:35 AM [facility] COVID-19 DIAGNOSTIC PANEL (CEPHEID) Specimen Type: NASOPHARYNGEAL Comment: Cepheid GeneXpert (618) Ordering Provider: LUCAS HAWTHORNE Report Released Date/Time: Jan 27, 2024 04:28 PM Reporting Lab: [facility] [phone] Performing Lab: [facility] [phone] COVID-19 (CEPHEID) Not Detected Not Detected Jan 28, 2024 12:35 AM [facility] HEPARIN APTT Specimen Type: PLASMA Comment: Critical Value Reported To: Deena Oliveros PharmD 01/28/24 @0110 HV. Critical value report confirmed. Ordering Provider: NATALIE ORDOÑEZ Report Released Date/Time: Jan 27, 2024 07:18 PM Reporting Lab: [facility] [address] Performing Lab: [facility] [address] HEPARIN APTT 133.9 s HH 48.0-92.0 Jan 28, 2024 12:35 AM [facility] TROPONIN I, HS Specimen Type: PLASMA Comment: Critical value previously reported on patient. Ordering Provider: BRANDON MEJIA Report Released Date/Time: Jan 27, 2024 09:15 PM Reporting Lab: [facility] [phone] Performing Lab: [facility] [address] TROPONIN I, HS 158 HH <35 Jan 27, 2024 09:22 PM [facility] TROPONIN I, HS Specimen Type: PLASMA Comment: Critical value previously reported on patient. Ordering Provider: BASHIR CARVAJAL Report Released Date/Time: Jan 27, 2024 08:38 PM Reporting Lab: [facility] [phone] Performing Lab: [facility] [address] TROPONIN I, HS 146 HH <35 Jan 27, 2024 06:52 PM [facility] TROPONIN I, HS Specimen Type: PLASMA Comment: Critical Value Reported To: Brandon Mejia MD 01/27/24 @1950 KL. Critical value report confirmed. Ordering Provider: BASHIR CARVAJAL Report Released Date/Time: Jan 27, 2024 04:54 PM Reporting Lab: [facility] [address] Performing Lab: [facility] [address] TROPONIN I, HS 136 HH <35 Jan 27, 2024 06:52 PM [facility] CBC Specimen Type: BLOOD No comment entered. Ordering Provider: BASHIR CARVAJAL Report Released Date/Time: Jan 27, 2024 04:54 PM Reporting Lab: [facility] [address] Performing Lab: [facility] [address] WBC 6.0 4.0-11.0 RBC 3.91 L 4.60-6.20 HGB 12.1 g/dL L 13.5-17.9 HCT 36.5 L 41.0-54.0 MCV 93.4 fL 80.0-100.0 MCH 30.9 pg 27.0-33.0 MCHC 33.2 g/dL 32.0-37.5 PLT 177 150-400 MPV 10.7 fL 9.1-13.0 RDW 12.4 11.5-14.5 Jan 27, 2024 06:52 PM [facility] BASIC METABOLIC PANEL+MG Specimen Type: PLASMA No comment entered. Ordering Provider: BASHIR CARVAJAL Report Released Date/Time: Jan 27, 2024 04:54 PM Reporting Lab: [facility] [address] Performing Lab: [facility] [address] CREATININE 1.3 mg/dL H 0.7-1.2 UREA NITROGEN [...] COMPLETED $APHDR Reporting Lab: [facility] [CLIA# [id number]] [place] [address] - - - - - - - [...] - PATHOLOGY REPORT Accession No. [id number] - - - - - - - [...] - PATHOLOGY REPORT Accession No. [id number] - - - - - - - [...] CE. (D[facility] [place]CROSCOPIC DESCRIPTION: Microscopic examination [...] Pathology Report Performed By: [facility] [CLIA# [id number]] [place] [address] $FTR - - - - - - [...] - - MADYSONGERI NUNEZ STANDARD FORM 515 ID:[id number] SEX:M :[id number] AGE: 88 LOC:[id number] PCP: Sariah Gomes MD /shelly/ JOSE REESE M.D. STAFF PATHOLOGIST Signed: 01/06/2024 11:16 JOSE REESE [facility] Encounter Notes: All associated encounter notes This section contains the clinical notes associated to the Encounter. Date/Time Encounter Note(s) Provider Source Jan 27, 2024 01:58 PM CONSTRUCTION CONSULTANT REFER RAL NOTE: LOCAL TITLE: INTERFACILITY REFERRAL SERVICE COUNSELOR. TRANSFER NOTE STANDARD TITLE: CONSTRUCTION CONSULTANT REFERRAL NOTE DATE OF NOTE: JAN 27, 2024@13:58 ENTRY DATE: JAN 27, 2024@14:00:48 AUTHOR: HORACE ALMANZA EXP COSIGNER: URGENCY: STATUS: COMPLETED PATIENT ADDRESS: [id number] [place] [id number] PHONE: NEXT OF KIN Name/Address: MIAH COUGHLIN [address] [place] [phone] Patient Elig: PRIMARY ELIGIBILTY CODE - SC LESS THAN 50% SC Disabilities (If Applicable): IMPAIRED HEARING 30% SC TINNITUS 10% SC Travel is authorized Patient/guardian consents to transfer. Referring physician certifies that benefit of transfer outways risk. To: [facility] From: Other Site: [facility] Requested Date/Time: JAN 27, 2024 14:00 Planned Arrival Date/Time: Jan@15:15 Current PCP: Primary Care Team: YANN REAVES Primary Care Provider: SARIAH GOMES No Associate Provider Assigned. Sending Facility Provider/Title/Pager: Dr. Rupert Khan @ [phone] Accepting Facility Provider/Designee/Pager: Dr. Smith Hawthorne @ pager [phone] Diagnosis: Unstable Angina Reason for Referral/Assessment: Request for transfer from [facility] does not have cardiology Advance Directive: unknown [...] CD, ER Reports, Progress Notes, Discharge Summary will be admitted to , accepted by Dr. Hawthorne. Provided sending facility with number to accepting unit for nurse to nurse report, to be given on departure. Sending facility to arrange transport. /shelly/ HORACE ALMANZA RN assistant track coach Polysomnographic Tech Signed: 01/27/2024 14:10 Receipt Acknowledged By: 01/29/2024 15:54 /shelly/ LUCAS HAWTHORNE MD EXECUTIVE SEARCH CONSULTANT HORACE ALMANZA [facility]
--- OUTSIDE RECORDS SUMMARY | 2024-03-10 19:36 | XMS_ITS | Encounter Summary ---
Author Name [facility] [place] [facility] [place] [facility] [place] Address [address] [place] [address] Care Team Providers Care Glue Size Machine Operator Name Role Phone SARIAH GOMES Primary [...] PART B Sep 09, 2002 PART B [id number] [phone] JOAQUIN COUGHLIN S PATIENT MEDICARE (WNR) MEDICARE (M) PART A Sep 09, 2002 PART A [id number] NULL,JOAQUIN S PATIENT MEDICARE (WNR) MEDICARE (M) PART A Sep 09, 2002 PART A [id number] NULL,JOAQUIN S PATIENT MEDICARE (WNR) MEDICARE (M) PART B Sep 09, 2002 PART B [id number] JOAQUIN COUGHLIN S PATIENT Selected Encounter This section includes the information on record at [place] for the Encounter. Date/Time Encounter Type Encounter Description Reason Provider Source Jan 06, 2024 11:16 AM Outpatient Encounter EVENT (HISTORICAL) JOSE REESE Encounter Template Text not used by [place] Plan of Treatment: Future Appointments (+ 6 months) and Future Tests (+/- 45 days) The Plan of Treatment section includes future care activities for the patient from [facility] [place] [facility] This section includes future appointments and future orders which are active, pending or scheduled. Future Appointments This section includes appointments that were scheduled to occur 6 months from the date of the Encounter, up to a maximum of 20 appointments. The data comes from all [facility]. Appointment Date/Time Appointment Type Appointme nt Facility Name Jan 10, 2024 12:00 PM [facility] Jan 11, 2024 01:30 PM AMBULATORY - MEDICINE [facility] Jan 26, 2024 08:30 AM AMBULATORY - NONE [facility] Jan 27, 2024 11:47 AM AMBULATORY - NONE [facility] Feb 17, 2024 01:00 PM AMBULATORY - NONE [facility] Feb 21, 2024 10:00 AM AMBULATORY - MEDICINE [facility] Feb 24, 2024 12:15 PM AMBULATORY - MEDICINE [facility] Feb 24, 2024 01:00 PM AMBULATORY - MEDICINE [facility] Mar 02, 2024 01:00 PM AMBULATORY - REHAB MEDICIN E [facility] Apr 26, 2024 10:00 AM AMBULATORY - MEDICINE [facility] Active, Pending, and Scheduled Orders This section includes a listing of several types of active, pending, and scheduled orders, including clinic medications orders, diagnostic test orders, procedure orders and consult orders; where the start date of the order is 45 days before the date of the Encounter or 45 days after the date of theEncounter. The data comes from all [facility]. Test Date/Time Test Type Test Details Facility Name Jan 18, 2024 04:23 PM Consult Order COMMUNITY CARE-ECHOCARDIOGRAPHY Cons Verifying Machine Operator's Choice [facility] Jan 19, 2024 12:10 PM Consult Order COMMUNITY CARE-DERMATOLOGY Cons Verifying Machine Operator's [facility] Jan 28, 2024 02:00 AM Laboratory - Chemi stry Order TROPONIN I, HS PLASMA STAT WC [facility] Lab Results: +/- 30 days of the encounter This section includes the Chemistry and Hematology Lab Results on record with [facility] for the patient. Radiology Reports and Pathology Reports are provided separately, in subsequent sections. Lab Results This section contains the Chemistry/Hematology Results that were resulted 30 days before or 30 daysafter the date of the Encounter. Date/Time Source Result Type Result - Unit Interpretation Reference Range Comment Jan 31, 2024 10:50 AM [facility] HEMOGLOBIN A1C Specimen Type: BLOOD Comment: [...] 10:13 AM Reporting Lab: [facility] [address] Performing Lab: [facility] [address] HEMOGLOBIN A1C 5.4 4.0-6.0 Jan 31, 2024 10:50 AM [facility] LIPID PANEL,FASTING Specimen Type: PLASMA No comment entered. Ordering Provider: JULIET SMART Report Released Date/Time: Jan 31, 2024 10:13 AM Reporting Lab: [facility] [address] Performing Lab: [facility] [address] CHOLESTEROL 125 mg/dL <199 TRIGLYCERIDE 95 mg/dL <149 .HDL 37 mg/dL L >40 LDL CALCULATION 69 mg/dL <99 VLDL CALCULATION 19 mg/dL <29 NON HDL CHOLESTEROL 88 mg/dL <129 Jan 31, 2024 07:29 AM [facility] CBC Specimen Type: BLOOD No comment entered. Ordering Provider: BASHIR CARVAJAL Report Released Date/Time: Jan 30, 2024 01:03 PM Reporting Lab: [facility] [address] Performing Lab: [facility] [address] WBC 7.3 4.0-11.0 RBC 3.83 L 4.60-6.20 HGB 11.4 g/dL L 13.5-17.9 HCT 35.1 L 41.0-54.0 MCV 91.6 fL 80.0-100.0 MCH 29.8 pg 27.0-33.0 MCHC 32.5 g/dL 32.0-37.5 PLT 193 150-400 MPV 10.7 fL 9.1-13.0 RDW 12.2 11.5-14.5 Jan 31, 2024 07:29 AM [facility] BASIC METABOLIC PANEL+MG Specimen Type: PLASMA No comment entered. Ordering Provider: BASHIR CARVAJAL Report Released Date/Time: Jan 30, 2024 01:03 PM Reporting Lab: [facility] [address] Performing Lab: [facility] [address] CREATININE 1.3 mg/dL H 0.7-1.2 UREA NITROGEN 24 mg/dL 8-26 GLUCOSE 91 mg/dL 70-100 SODIUM 138 mmol/L 136-145 POTASSIUM 4.1 mmol/L 3.5-5.1 CHLORIDE 108 mmol/L H 98-107 CO2 23 mmol/L 22-29 CALCIUM 8.8 mg/dL 8.4-10.2 MAGNESIUM 2.1 mg/dL 1.6-2.6 ANION GAP 7 mmol/L 5-15 .CREAT EGFR(CKD-EPI) 54 L >60 Jan 30, 2024 10:37 AM [facility] POC ACT Specimen Type: BLOOD No comment entered. Ordering Provider: RODO CHRISTY Report Released Date/Time: Jan 30, 2024 10:43 AM Reporting Lab: [facility] [address] Performing Lab: [facility] [address] POC ACT 241 s H 84-139 Jan 30, 2024 10:08 AM [facility] POC ACT Specimen Type: BLOOD No comment entered. Ordering Provider: RODO CHRISTY Report Released Date/Time: Jan 30, 2024 10:14 AM Reporting Lab: [facility] [address] Performing Lab: [facility] [address] POC ACT 289 s H 84-139 Jan 30, 2024 09:34 AM [facility] POC ACT Specimen Type: BLOOD No comment entered. Ordering Provider: RODO CHRISTY Report Released Date/Time: Jan 30, 2024 10:14 AM Reporting Lab: [facility] [address] Performing Lab: [facility] [address] POC ACT 294 s H 84-139 Jan 30, 2024 05:37 AM [facility] HEPARIN APTT Specimen Type: PLASMA No comment entered. Ordering Provider: BASHIR CARVAJAL Report Released Date/Time: Jan 29, 2024 09:43 PM Reporting Lab: [facility] [address] Performing Lab: [facility] [address] HEPARIN APTT 83.2 s 48.0-92.0 Jan 30, 2024 05:37 AM [facility] BASIC METABOLIC PANEL+MG Specimen Type: PLASMA No comment entered. Ordering Provider: BASHIR CARVAJAL Report Released Date/Time: Jan 29, 2024 12:19 PM Reporting Lab: [facility] [address] Performing Lab: [facility] [address] CREATININE 1.4 mg/dL H 0.7-1.2 UREA NITROGEN 27 mg/dL H 8-26 GLUCOSE 95 mg/dL 70-100 SODIUM 139 mmol/L 136-145 POTASSIUM 4.2 mmol/L 3.5-5.1 CHLORIDE 109 mmol/L H 98-107 CO2 24 mmol/L 22-29 CALCIUM 9.0 mg/dL 8.4-10.2 MAGNESIUM 2.1 mg/dL 1.6-2.6 ANION GAP 6 mmol/L 5-15 .CREAT EGFR(CKD-EPI) 49 L >60 Jan 29, 2024 09:02 PM [facility] HEPARIN APTT Specimen Type: PLASMA Comment: Critical Value Reported To: Tomasa Delcid PharmD 01/29/24 @[address] [place] [address]. Critical value report confirmed. Ordering Provider: MERY SAMUEL Report Released Date/Time: Jan 29, 2024 03:00 PM Reporting Lab: [facility] [address] Performing Lab: [facility] [address] HEPARIN APTT 214.6 s HH 48.0-92.0 Jan 29, 2024 06:24 AM [facility] BASIC METABOLIC PANEL+MG Specimen Type: PLASMA No comment entered. Ordering Provider: BASHIR CARVAJAL Report Released Date/Time: Jan 28, 2024 04:36 PM Reporting Lab: [facility] [address] Performing Lab: [facility] [address] CREATININE 1.6 mg/dL H 0.7-1.2 UREA NITROGEN 27 mg/dL H 8-26 GLUCOSE 92 mg/dL 70-100 SODIUM 140 mmol/L 136-145 POTASSIUM 4.2 mmol/L 3.5-5.1 CHLORIDE 110 mmol/L H 98-107 CO2 25 mmol/L 22-29 CALCIUM 8.8 mg/dL 8.4-10.2 MAGNESIUM 2.1 mg/dL 1.6-2.6 ANION GAP 5 mmol/L 5-15 .CREAT EGFR(CKD-EPI) 42 L >60 Jan 28, 2024 05:54 AM [facility] EXTRA PURPLE TUBE Specimen Type: BLOOD No comment entered. Ordering Provider: RODO CHRISTY Report Released Date/Time: Jan 28, 2024 05:54 AM Reporting Lab: [facility] [address] Performing Lab: [facility] [address] EXTRA PURPLE TUBE RECEIVED Jan 28, 2024 05:53 AM [facility] ALBUMIN Specimen Type: PLASMA No comment entered. Ordering Provider: BASHIR CARVAJAL Report Released Date/Time: Jan 27, 2024 04:49 PM Reporting Lab: [facility] [address] Performing Lab: [facility] [address] ALBUMIN 3.5 g/dL 3.5-5.2 Jan 28, 2024 05:53 AM [facility] BASIC METABOLIC PANEL+MG Specimen Type: PLASMA No comment entered. Ordering Provider: BASHIR CARVAJAL Report Released Date/Time: Jan 27, 2024 05:44 PM Reporting Lab: [facility] [address] Performing Lab: [facility] [address] CREATININE 1.4 mg/dL H 0.7-1.2 UREA NITROGEN 28 mg/dL H 8-26 GLUCOSE 92 mg/dL 70-100 SODIUM 140 mmol/L 136-145 POTASSIUM 4.4 mmol/L 3.5-5.1 CHLORIDE 109 mmol/L H 98-107 CO2 23 mmol/L 22-29 CALCIUM 8.8 mg/dL 8.4-10.2 MAGNESIUM 2.1 mg/dL 1.6-2.6 ANION GAP 8 mmol/L 5-15 .CREAT EGFR(CKD-EPI) 49 L >60 Jan 28, 2024 05:52 AM [facility] TROPONIN I, HS Specimen Type: PLASMA Comment: Critical value previously reported on patient. Ordering Provider: BRANDON MEJIA Report Released Date/Time: Jan 27, 2024 09:15 PM Reporting Lab: [facility] [address] Performing Lab: [facility] [address] TROPONIN I, HS 128 HH <35 Jan 28, 2024 12:35 AM [facility] COVID-19 DIAGNOSTIC PANEL (CEPHEID) Specimen Type: NASOPHARYNGEAL Comment: Cepheid GeneXpert (618) Ordering Provider: LUCAS HAWTHORNE Report Released Date/Time: Jan 27, 2024 04:28 PM Reporting Lab: [facility] [address] Performing Lab: [facility] [address] COVID-19 (CEPHEID) Not Detected Not Detected Jan 28, 2024 12:35 AM [facility] HEPARIN APTT Specimen Type: PLASMA Comment: Critical Value Reported To: Deena Oliveros PharmD 01/28/24 @0110 . Critical value report confirmed. Ordering Provider: NATALIE ORDOÑEZ Report Released Date/Time: Jan 27, 2024 07:18 PM Reporting Lab: [facility] [address] Performing Lab: [facility] [address] HEPARIN APTT 133.9 s HH 48.0-92.0 Jan 28, 2024 12:35 AM [facility] TROPONIN I, HS Specimen Type: PLASMA Comment: Critical value previously reported on patient. Ordering Provider: BRANDON MEJIA Report Released Date/Time: Jan 27, 2024 09:15 PM Reporting Lab: [facility] [address] Performing Lab: [facility] [address] TROPONIN I, HS 158 HH <35 Jan 27, 2024 09:22 PM [facility] TROPONIN I, HS Specimen Type: PLASMA Comment: Critical value previously reported on patient. Ordering Provider: BASHIR CARVAJAL Report Released Date/Time: Jan 27, 2024 08:38 PM Reporting Lab: [facility] [address] Performing Lab: [facility] [address] TROPONIN I, HS 146 HH <35 Jan 27, 2024 06:52 PM [facility] TROPONIN I, HS Specimen Type: PLASMA Comment: Critical Value Reported To: Brandon Meija MD 01/27/24 @[address] [place] [address]. Critical value report confirmed. Ordering Provider: BASHIR CARVAJAL Report Released Date/Time: Jan 27, 2024 04:54 PM Reporting Lab: [facility] [address] Performing Lab: [facility] [address] TROPONIN I, HS 136 HH <35 Jan 27, 2024 06:52 PM [facility] CBC Specimen Type: BLOOD No comment entered. Ordering Provider: BASHIR CARVAJAL Report Released Date/Time: Jan 27, 2024 04:54 PM Reporting Lab: [facility] [address] Performing Lab: [facility] [address] WBC 6.0 4.0-11.0 RBC 3.91 L 4.60-6.20 HGB 12.1 g/dL L 13.5-17.9 HCT 36.5 L 41.0-54.0 MCV 93.4 fL 80.0-100.0 MCH 30.9 pg 27.0-33.0 MCHC 33.2 g/dL 32.0-37.5 PLT 177 150-400 MPV 10.7 fL 9.1-13.0 RDW 12.4 11.5-14.5 Jan 27, 2024 06:52 PM [facility] BASIC METABOLIC PANEL+MG Specimen Type: PLASMA No comment entered. Ordering Provider: BASHIR CARVAJAL Report Released Date/Time: Jan 27, 2024 04:54 PM Reporting Lab: [facility] [address] Performing Lab: [facility] [address] CREATININE 1.3 mg/dL H 0.7-1.2 UREA NITROGEN 30 mg/dL H 8-26 GLUCOSE 141 mg/dL H 70-100 SODIUM 142 mmol/L 136-145 POTASSIUM 3.4 mmol/L L 3.5-5.1 CHLORIDE 106 mmol/L 98-107 CO2 27 mmol/L 22-29 CALCIUM 8.8 mg/dL 8.4-10.2 MAGNESIUM 2.2 mg/dL 1.6-2.6 ANION GAP 9 mmol/L 5-15 .CREAT EGFR(CKD-EPI) 54 L >60 Dec 14, 2023 12:33 PM [facility] IRON GROUP Specimen Type: SERUM No comment entered. Ordering Provider: SARIAH GOMES Report Released Date/Time: Dec 14, 2023 12:10 PM Reporting Lab: [facility] [address] Performing Lab: [facility] [address] IRON 95 ug/dL 65-175 TIBC,CALCULATE D 276 ug/dL 250-425 FERRITIN 495.9 ng/mL H 21.8-274.7 IRON SATURATION 34 20-50 TRANSFERRIN 221 mg/dL 163-382 Dec 14, 2023 12:33 PM [facility] B 12 Specimen Type: SERUM No comment entered. Ordering Provider: SARIAH GOMES Report Released Date/Time: Dec 14, 2023 12:10 PM Reporting Lab: [facility] [address] Performing Lab: [facility] [address] B 12 642 pg/mL 213-816 Dec 14, 2023 12:33 PM [facility] TSH W/REFLEX TO FREE T4 Specimen Type: PLASMA No comment entered. Ordering Provider: SARIAH GOMES Report Released Date/Time: Dec 14, 2023 12:10 PM Reporting Lab: [facility] [address] Performing Lab: [facility] [address] TSH 5.10 u[IU]/mL H 0.35-4.94 FREE T4 0.83 ng/dL 0.70-1.48 Dec 14, 2023 12:33 PM [facility] LIPID PANEL,NON-FASTING Specimen Type: PLASMA No comment entered. Ordering Provider: SARIAH GOMES Report Released Date/Time: Dec 14, 2023 12:10 PM Reporting Lab: [facility] [address] Performing Lab: [facility] [address] CHOLESTEROL 186 mg/dL <199 .HDL 49 mg/dL >40 LDL CALCULATION 116 mg/dL H <99 VLDL CALCULATION 21 mg/dL <29 NON HDL CHOLESTEROL 137 mg/dL H <129 TRIG(NON FASTING) 106 mg/dL <149 Dec 14, 2023 12:33 PM [facility] FOLATE Specimen Type: SERUM No comment entered. Ordering Provider: SARIAH GOMES Report Released Date/Time: Dec 14, 2023 12:10 PM Reporting Lab: [facility] [address] Performing Lab: [place] [id number] FOLATE 11.5 ng/mL >7.0 Dec 14, 2023 12:33 PM [facility] HEMOGLOBIN A1C Specimen Type: BLOOD Comment: [...] Dec 14, 2023 12:10 PM Reporting Lab: [facility] [address] Performing Lab: [address] HEMOGLOBIN A1C 5.3 4.0-6.0 Dec 14, 2023 12:33 PM [facility] CBC Specimen Type: BLOOD No comment entered. Ordering Provider: SARIAH GOMES Report Released Date/Time: Dec 14, 2023 12:10 PM Reporting Lab: [facility] [address] Performing Lab: [facility] [address] WBC 5.5 4.0-11.0 RBC 4.59 L 4.60-6.20 HGB 14.0 g/dL 13.5-17.9 HCT 43.0 41-54 MCV 93.7 fL 80-100 MCH 30.5 pg 27-33 MCHC 32.6 g/dL 32.0-37.5 PLT 184 150-400 MPV 10.6 fL H 7.4-10.4 RDW 12.7 11.5-14.5 Dec 14, 2023 12:33 PM [facility] COMPREHENSIVE METABOLIC PANEL+MG Specimen Type: PLASMA No comment entered. Ordering Provider: SARIAH GOMES Report Released Date/Time: Dec 14, 2023 12:10 PM Reporting Lab: [facility] [address] Performing Lab: [facility] [address] [facility] [address] CREATININE 1.2 mg/dL 0.7-1.2 UREA NITROGEN 23 [...] 14, 2023 11:30 AM VA-TOBACCO FORMER USER [facility] Tobacco Use History This section includes a history of the smoking, or tobacco-related health factors, that were collected on or before the date of the Encounter. The data comes from the [place] facility where the Encounter took place. Date/Time Smoking Status/Tobacco Use Comment F stephanie Dec 14, 2023 11:30 AM VA-TOBACCO QUIT 15 YRS OR MORE [facility] Oct 13, 2022 01:30 PM VA-TOBACCO FORMER USER [facility] Oct 13, 2022 01:30 PM VA-TOBACCO QUIT 15 YRS OR MORE [facility] Jul 27, 2021 10:00 AM VA-TOBACCO FORMER USER [facility] Jul 27, 2021 10:00 AM VA-TOBACCO QUIT 15 YRS OR MORE [facility] Jan 02, 2020 09:00 AM VA-TOBACCO FORMER USER [facility] Jan 02, 2020 09:00 AM VA-TOBACCO QUIT 15 YRS OR MORE [facility] Jul 21, 2018 03:00 PM VA-TOBACCO FORMER USER [facility] Jul 21, 2018 03:00 PM VA-TOBACCO QUIT 15 YRS OR MORE [facility] Dec 24, 2016 08:01 AM FORMER TOBACCO USER 7Y OR GREATE R [facility] Dec 23, 2015 08:23 AM FORMER TOBACCO USE >1Y <7Y [facility] Dec 26, 2014 10:32 AM FORMER TOBACCO USER 7Y OR GREATE R [facility] August 13, 2013 08:22 AM LIFETIME NON-TOBACCO USER [facility] August 30, 2006 08:38 AM FORMER TOBACCO USER 7Y OR GREATE R [facility] Advance Directives: All historical and current [...] August 30, 2006 ADVANCE DIRECTIVE ARGENIS CRAMER [facility] Pathology Reports: +/- 30 days [...] COSIGNER: URGENCY: STATUS: COMPLETED $APHDR Reporting Lab: [facility] [CLIA# [id number]] [place] [address] - - - - - - - [...] - PATHOLOGY REPORT Accession No. [id number] - - - - - - - [...] - PATHOLOGY REPORT Accession No. [id number] - - - - - - - [...] 0.1 cm. The specimen is inked. CE. (D[place] [place]: Microscopic examination performed. CI. 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 STAFF PATHOLOGIST Signed Jan 06, 2024@11:16 Performing Laboratory: Surgical Pathology Report Performed By: [facility] [CLIA# [id number]] [place] [address] $FTR - - - - - - [...] - - GERI COUGHLIN STANDARD FORM 515 ID:[id number] SEX:M :1935 AGE: 88 LOC:[id number] PCP: Sariah Gomes MD /shelly/ JOSE REESE M.D. STAFF PATHOLOGIST Signed: 01/06/2024 11:16 JOSE REESE [facility] Encounter Notes: All associated encounter notes This section contains the clinical notes associated to the Encounter. Date/Time Encounter Note(s) Provider Source Jan 06, 2024 11:16 AM PATHOLOGY REPORT: LOCAL TITLE: LR SURGICAL PATHOLOGY REPORT STANDARD TITLE: PATHOLOGY REPORT DATE OF NOTE: JAN 06, 2024@11:16:39 ENTRY DATE: JAN 06, 2024@11:16:39 AUTHOR: JOSE REESE COSIGNER: URGENCY: STATUS: COMPLETED $APHDR Reporting Lab: [facility] [CLIA# [id number]] [place] [address] - - - - - - - [...] - - - PATHOLOGY REPORT Accession No. [id number] - - - - - - - [...] - PATHOLOGY REPORT Accession No. [id number] - - - - - - - [...] 0.1 cm. The specimen is inked. CE. (D)[facility] [place] MICROSCOPIC DESCRIPTION: Microscopic examination performed. [...] Performing Laboratory: Surgical Pathology Report Performed By: [facility] [CLIA# [id number]] [place] [address] $FTR - - - - - - [...] - - MADYSON,GERI NUNEZ STANDARD FORM 515 ID:[id number] SEX:M :1935 AGE: 88 LOC:53526 PCP: Sariah Gomes MD /shelly/ JOSE REESE M.D. STAFF PATHOLOGIST Signed: 01/06/2024 11:16 JOSE REESE [facility]
--- OUTSIDE RECORDS SUMMARY | 2024-03-10 19:37 | XMS_ITS | Encounter Summary ---
Author Name [facility] Organization [facility] [place] Address [address] [place] [id number] Care Team Providers Care Diet Supervisor Name Role Phone SARIAH GOMES Primary [...] PART A Sep 09, 2002 PART A [id number] JOAQUIN COUGHLIN S PATIENT MEDICARE (WNR) MEDICARE (M) PART B Sep 09, 2002 PART B [id number] JOAQUIN COUGHLIN S PATIENT MEDICARE (WNR) MEDICARE (M) PART A Sep 09, 2002 PART A [id number] JOAQUIN COUGHLIN S PATIENT MEDICARE (WNR) MEDICARE (M) PART B Sep 09, 2002 PART B [id number] JOAQUIN COUGHLIN S PATIENT Selected Encounter This section includes the information on record at OR for the Encounter. Date/Time Encounter Type Encounter Description Reason Provider Source Jan 28, 2024 11:30 AM TTE W/DOPPLER COMPLETE CARDIAC ECHO ICD-10-CM I50.9 Heart failure, unspecified JHOAN LOUISOneyda Encounter Template Text not used by OR Assessments - Encounter Diagnoses This section includes the primary and secondary diagnoses documented for the Encounter. Date/Time Primary/Secondary Diagnosis Diagnosis Name Provider Source Jan 28, 2024 11:30 AM PRIMARY Heart failure, unspecified PHYLLIS TRAN [facility] Plan of Treatment: Future Appointments (+ 6 months) and Future Tests (+/- 45 days) The Plan of Treatment section includes future care activities for the patient from all [place] [facility] [place]. This section includes future appointments and future [...] 17, 2024 01:00 PM AMBULATORY - NONE [facility] Feb 21, 2024 10:00 AM AMBULATORY - MEDICINE [facility] Feb 24, 2024 12:15 PM AMBULATORY - MEDICINE [facility] Feb 24, 2024 01:00 PM AMBULATORY - MEDICINE [facility] Mar 02, 2024 01:00 PM AMBULATORY - REHAB MEDICIN [facility] Apr 26, 2024 10:00 AM AMBULATORY - MEDICINE [facility] Active, Pending, and [...] 04:23 PM Consult Order COMMUNITY CARE-ECHOCARDIOGRAPHY Cons Radio Time Buyer's Choice [facility] Jan 19, 2024 12:10 PM Consult Order COMMUNITY CARE-DERMATOLOGY Cons Radio Time Buyer's [facility] Jan 28, 2024 02:00 AM Laboratory - Chemi stry Order TROPONIN I, HS PLASMA STAT [facility] Mar 01, 2024 03:28 PM Consult Order IFC TRAVEL ING UNIVERSAL CONSULT-GARRETT Cons Radio Time Buyer's [facility] Lab Results: +/- 30 days of the encounter This section includes the Chemistry and Hematology Lab Results on record with OR for the patient. Radiology Reports and Pathology Reports are provided separately, in subsequent sections. Lab Results This section contains the Chemistry/Hematology Results that were resulted 30 days before or 30 daysafter the date of the Encounter. Date/Time Source Result Type Result - Unit Interpretation Reference Range Comment Jan 31, 2024 10:50 AM [facility] HEMOGLOBIN A1C Specimen Type: BLOOD Comment: [...] AM Reporting Lab: [facility] [phone] Performing Lab: [facility] [address] HEMOGLOBIN A1C 5.4 4.0-6.0 Jan 31, 2024 10:50 AM [facility] LIPID PANEL,FASTING Specimen Type: PLASMA No comment entered. Ordering Provider: JULIET SMART Report Released Date/Time: Jan 31, 2024 10:13 AM Reporting Lab: [facility] [address] Performing Lab: [facility] [address] CHOLESTEROL 125 mg/dL <199 TRIGLYCERIDE 95 mg/dL <149 .HDL 37 mg/dL L >40 LDL CALCULATION 69 mg/dL <99 VLDL CALCULATION 19 mg/dL <29 NON HDL CHOLESTEROL 88 mg/dL <129 Jan 31, 2024 07:29 AM [facility] CBC Specimen Type: BLOOD No comment entered. Ordering Provider: BASHIR CARVAJAL Report Released Date/Time: Jan 30, 2024 01:03 PM Reporting Lab: [facility] [address] Performing Lab: [facility] [address] WBC 7.3 4.0-11.0 RBC 3.83 L 4.60-6.20 HGB 11.4 g/dL L 13.5-17.9 HCT 35.1 L 41.0-54.0 MCV 91.6 fL 80.0-100.0 MCH 29.8 pg 27.0-33.0 MCHC 32.5 g/dL 32.0-37.5 PLT 193 150-400 MPV 10.7 fL 9.1-13.0 RDW 12.2 11.5-14.5 Jan 31, 2024 07:29 AM [facility] BASIC METABOLIC PANEL+MG Specimen Type: PLASMA No comment entered. Ordering Provider: BASHIR CARVAJAL Report Released Date/Time: Jan 30, 2024 01:03 PM Reporting Lab: [facility] [phone] Performing Lab: [facility] [address] CREATININE 1.3 mg/dL H 0.7-1.2 UREA NITROGEN 24 mg/dL 8-26 GLUCOSE 91 mg/dL 70-100 SODIUM 138 mmol/L 136-145 POTASSIUM 4.1 mmol/L 3.5-5.1 CHLORIDE 108 mmol/L H 98-107 CO2 23 mmol/L 22-29 CALCIUM 8.8 mg/dL 8.4-10.2 MAGNESIUM 2.1 mg/dL 1.6-2.6 ANION GAP 7 mmol/L 5-15 .CREAT EGFR(CKD-EPI) 54 L >60 Jan 30, 2024 10:37 AM [facility] POC ACT Specimen Type: BLOOD No comment entered. Ordering Provider: RODO CHRISTY Report Released Date/Time: Jan 30, 2024 10:43 AM Reporting Lab: [facility] [address] Performing Lab: [facility] [address] POC ACT 241 s H 84-139 Jan 30, 2024 10:08 AM [facility] POC ACT Specimen Type: BLOOD No comment entered. Ordering Provider: RODO CHRISTY Report Released Date/Time: Jan 30, 2024 10:14 AM Reporting Lab: [facility] [phone] Performing Lab: [facility] [address] POC ACT 289 s H 84-139 Jan 30, 2024 09:34 AM [facility] POC ACT Specimen Type: BLOOD No comment entered. Ordering Provider: RODO CHRISTY Report Released Date/Time: Jan 30, 2024 10:14 AM Reporting Lab: [facility] [address] Performing Lab: [facility] [address] POC ACT 294 s H 84-139 Jan 30, 2024 05:37 AM [facility] HEPARIN APTT Specimen Type: PLASMA No comment entered. Ordering Provider: BASHIR CARVAJAL Report Released Date/Time: Jan 29, 2024 09:43 PM Reporting Lab: [facility] [address] Performing Lab: [facility] [address] HEPARIN APTT 83.2 s 48.0-92.0 Jan 30, 2024 05:37 AM [facility] BASIC METABOLIC PANEL+MG Specimen Type: PLASMA No comment entered. Ordering Provider: BASHIR CARVAJAL Report Released Date/Time: Jan 29, 2024 12:19 PM Reporting Lab: [facility] [phone] Performing Lab: [facility] [address] CREATININE 1.4 mg/dL H 0.7-1.2 UREA NITROGEN 27 mg/dL H 8-26 GLUCOSE 95 mg/dL 70-100 SODIUM 139 mmol/L 136-145 POTASSIUM 4.2 mmol/L 3.5-5.1 CHLORIDE 109 mmol/L H 98-107 CO2 24 mmol/L 22-29 CALCIUM 9.0 mg/dL 8.4-10.2 MAGNESIUM 2.1 mg/dL 1.6-2.6 ANION GAP 6 mmol/L 5-15 .CREAT EGFR(CKD-EPI) 49 L >60 Jan 29, 2024 09:02 PM [facility] HEPARIN APTT Specimen Type: PLASMA Comment: Critical Value Reported To: Tomasa Delcid PharmD 01/29/24 @[address] [place] [address]. Critical value report confirmed. Ordering Provider: MERY SAMUEL Report Released Date/Time: Jan 29, 2024 03:00 PM Reporting Lab: [facility] [phone] Performing Lab: [facility] [address] HEPARIN APTT 214.6 s HH 48.0-92.0 Jan 29, 2024 06:24 AM [facility] BASIC METABOLIC PANEL+MG Specimen Type: PLASMA No comment entered. Ordering Provider: BASHIR CARVAJAL Report Released Date/Time: Jan 28, 2024 04:36 PM Reporting Lab: [facility] [address] Performing Lab: [facility] [address] CREATININE 1.6 mg/dL H 0.7-1.2 UREA NITROGEN 27 mg/dL H 8-26 GLUCOSE 92 mg/dL 70-100 SODIUM 140 mmol/L 136-145 POTASSIUM 4.2 mmol/L 3.5-5.1 CHLORIDE 110 mmol/L H 98-107 CO2 25 mmol/L 22-29 CALCIUM 8.8 mg/dL 8.4-10.2 MAGNESIUM 2.1 mg/dL 1.6-2.6 ANION GAP 5 mmol/L 5-15 .CREAT EGFR(CKD-EPI) 42 L >60 Jan 28, 2024 05:54 AM [facility] EXTRA PURPLE TUBE Specimen Type: BLOOD No comment entered. Ordering Provider: RODO CHRISTY Report Released Date/Time: Jan 28, 2024 05:54 AM Reporting Lab: [facility] [address] Performing Lab: [facility] [address] EXTRA PURPLE TUBE RECEIVED Jan 28, 2024 05:53 AM [facility] ALBUMIN Specimen Type: PLASMA No comment entered. Ordering Provider: BASHIR CARVAJAL Report Released Date/Time: Jan 27, 2024 04:49 PM Reporting Lab: [facility] [address] Performing Lab: [facility] [address] ALBUMIN 3.5 g/dL 3.5-5.2 Jan 28, 2024 05:53 AM [facility] BASIC METABOLIC PANEL+MG Specimen Type: PLASMA No comment entered. Ordering Provider: BASHIR CARVAJAL Report Released Date/Time: Jan 27, 2024 05:44 PM Reporting Lab: [facility] [address] Performing Lab: [facility] [address] CREATININE 1.4 mg/dL H 0.7-1.2 UREA NITROGEN 28 mg/dL H 8-26 GLUCOSE 92 mg/dL 70-100 SODIUM 140 mmol/L 136-145 POTASSIUM 4.4 mmol/L 3.5-5.1 CHLORIDE 109 mmol/L H 98-107 CO2 23 mmol/L 22-29 CALCIUM 8.8 mg/dL 8.4-10.2 MAGNESIUM 2.1 mg/dL 1.6-2.6 ANION GAP 8 mmol/L 5-15 .CREAT EGFR(CKD-EPI) 49 L >60 Jan 28, 2024 05:52 AM [facility] TROPONIN I, HS Specimen Type: PLASMA Comment: Critical value previously reported on patient. Ordering Provider: BRANDON MEJIA Report Released Date/Time: Jan 27, 2024 09:15 PM Reporting Lab: [facility] [address] Performing Lab: [facility] [address] TROPONIN I, HS 128 HH <35 Jan 28, 2024 12:35 AM [facility] COVID-19 DIAGNOSTIC PANEL (CEPHEID) Specimen Type: NASOPHARYNGEAL Comment: Cepheid GeneXpert (618) Ordering Provider: LUCAS HAWTHORNE Report Released Date/Time: Jan 27, 2024 04:28 PM Reporting Lab: [facility] [address] Performing Lab: [facility] [address] COVID-19 (CEPHEID) Not Detected Not Detected Jan 28, 2024 12:35 AM [facility] HEPARIN APTT Specimen Type: PLASMA Comment: Critical Value Reported To: Deena Oliveros PharmD 01/28/24 @0110 HV. Critical value report confirmed. Ordering Provider: NATALIE ORDOÑEZ Report Released Date/Time: Jan 27, 2024 07:18 PM Reporting Lab: [facility] [address] Performing Lab: [facility] [address] HEPARIN APTT 133.9 s HH 48.0-92.0 Jan 28, 2024 12:35 AM [facility] TROPONIN I, HS Specimen Type: PLASMA Comment: Critical value previously reported on patient. Ordering Provider: BRANDON MEJIA Report Released Date/Time: Jan 27, 2024 09:15 PM Reporting Lab: [facility] [address] Performing Lab: [facility] [address] TROPONIN I, HS 158 HH <35 Jan 27, 2024 09:22 PM [facility] TROPONIN I, HS Specimen Type: PLASMA Comment: Critical value previously reported on patient. Ordering Provider: BASHIR CARVAJAL Report Released Date/Time: Jan 27, 2024 08:38 PM Reporting Lab: [facility] [address] Performing Lab: [facility] [address] TROPONIN I, HS 146 HH <35 Jan 27, 2024 06:52 PM [facility] TROPONIN I, HS Specimen Type: PLASMA Comment: Critical Value Reported To: Brandon Mejia MD 01/27/24 @[address] [place] [address]. Critical value report confirmed. Ordering Provider: BASHIR CARVAJAL Report Released Date/Time: Jan 27, 2024 04:54 PM Reporting Lab: [facility] [address] Performing Lab: [facility] [address] TROPONIN I, HS 136 HH <35 Jan 27, 2024 06:52 PM [facility] BASIC METABOLIC PANEL+MG Specimen Type: PLASMA No comment entered. Ordering Provider: BASHIR CARVAJAL Report Released Date/Time: Jan 27, 2024 04:54 PM Reporting Lab: [facility] [address] Performing Lab: [facility] [address] CREATININE 1.3 mg/dL H 0.7-1.2 UREA NITROGEN 30 mg/dL H 8-26 GLUCOSE 141 mg/dL H 70-100 SODIUM 142 mmol/L 136-145 POTASSIUM 3.4 mmol/L L 3.5-5.1 CHLORIDE 106 mmol/L 98-107 CO2 27 mmol/L 22-29 CALCIUM 8.8 mg/dL 8.4-10.2 MAGNESIUM 2.2 mg/dL 1.6-2.6 ANION GAP 9 mmol/L 5-15 .CREAT EGFR(CKD-EPI) 54 L >60 Jan 27, 2024 06:52 PM [facility] CBC Specimen Type: BLOOD No comment entered. Ordering Provider: BASHIR CARVAJAL Report Released Date/Time: Jan 27, 2024 04:54 PM Reporting Lab: [facility] [address] Performing Lab: [facility] [address] WBC 6.0 4.0-11.0 RBC 3.91 L 4.60-6.20 [...] Source Jan 28, 2024 03:42 AM 0 [facility] Jan 28, 2024 03:25 AM 7 [facility] Social History: Smoking Status (Most current) and Tobacco Use (All prior to encounter date) This section includes the most current, and the historical, smoking and tobacco- related health factors from the OR facility where the Encounter took place. Current Smoking Status This section includes the most current smoking, or tobacco-related health factor, from the OR facility where the Encounter took place. Date/Time Current Smoking Status Comment Facil ity Dec 14, 2023 11:30 AM VA-TOBACCO FORMER USER [facility] Tobacco Use History This section includes a history of the smoking, or tobacco-related health factors, that were collected on or before the date of the Encounter. The data comes from the OR facility where the Encounter took place. Date/Time [...] FORMER TOBACCO USER 7Y OR KIEL R [facility] Advance Directives: All historical and current Section Date Range: From patient's date of to the date document was created. This section includes ALL of a patient's completed or amended OR Advance and Rescinded Directives. The entries below indicate that a directive exists for the patient, but an actual copy is not included with this document. The data comes from all OR facilities. Date Advance Directives Provider Source August [...] the Encounter. The data comes from all OR treatment facilities. Date/Time Pathology Report Provider Source Jan 06, 2024 11:16 AM [facility] REPORT: LOCAL TITLE: LR SURGICAL PATHOLOGY REPORT STANDARD TITLE: PATHOLOGY REPORT DATE OF NOTE: JAN 06, 2024@11:16:39 ENTRY DATE: JAN 06, 2024@11:16:39 AUTHOR: JOSE REESE COSIGNER: URGENCY: STATUS: COMPLETED $APHDR Reporting Lab: [facility] [CLIA# [id number]] [place] [address] - - - - - - - [...] - PATHOLOGY REPORT Accession No. [id number] - - - - - - - [...] - PATHOLOGY REPORT Accession No. [id number] - - - - - - - [...] 0.1 cm. The specimen is inked. CE. (D[facility]: Microscopic examination performed. CI. [...] [facility] [CLIA# [id number]] [place] [address] $FTR - - - - - - [...] - - MADYSON,GERI NUNEZ STANDARD FORM 515 ID:[id number] SEX:M :[id number] AGE: 88 LOC:[id number] PCP: Sariah Gomes MD /shelly/ JOSE REESE M.D. STAFF PATHOLOGIST Signed: 01/06/2024 11:16 JOSE REESE [facility]
--- OUTSIDE RECORDS SUMMARY | 2024-03-10 19:37 | XMS_ITS | Encounter Summary ---
Author Name [facility] [place] Organization [facility] [place] Address [address] [place] [id number] Care Team Providers Care Coffee Break Attendant Name Role Phone SARIAH GOMES Primary Care [...] PART B Sep 09, 2002 PART B [id number] [phone] JOAQUIN BOYKIN S PATIENT MEDICARE (WNR) MEDICARE (M) PART A Sep 09, 2002 PART A [id number] NULL,JOAQUIN S PATIENT MEDICARE (WNR) MEDICARE (M) PART A Sep 09, 2002 PART A [id number] JOAQUIN BOYKIN S PATIENT MEDICARE (WNR) MEDICARE (M) PART B Sep 09, 2002 PART B [id number] JOAQUIN BOYKIN S PATIENT Selected Encounter This section includes the information on record at [place] for the Encounter. Date/Time Encounter Type Encounter Description Reason Provider Source Jan 27, 2024 05:41 PM 1ST HOSP IP/OBS HIGH 75 CARDIOLOGY ICD-10-CM I21.4 Non-ST elevation (NSTEMI) myocardial infarction LUCAS HAWTHORNE [facility] Encounter Template Text not used by [place] Assessments - Encounter Diagnoses This section includes the primary and secondary diagnoses documented for the Encounter. Date/Time Primary/Secondary Diagnosis Diagnosis Name Provider Source Jan 29, 2024 03:46 PM PRIMARY Non-ST elevation (NSTEMI) myocardial infarction [facility] Plan of Treatment: Future Appointments (+ 6 months) and Future Tests (+/- 45 days) The Plan of Treatment section includes future care activities for the patient from [facility] [place] [facility] This section includes future appointments and future orders which are active, pending or scheduled. Future Appointments This section includes appointments that were scheduled to occur 6 months from the date of the Encounter, up to a maximum of 20 appointments. The data comes from all [facility]. Appointment Date/Time Appointment Type Appointme nt Facility Name Feb 17, 2024 01:00 PM AMBULATORY - NONE [facility] Feb 21, 2024 10:00 AM AMBULATORY - MEDICINE [facility] Feb 24, 2024 12:15 PM AMBULATORY - MEDICINE [facility] Feb 24, 2024 01:00 PM AMBULATORY - MEDICINE [facility] Mar 02, 2024 01:00 PM AMBULATORY - REHAB [facility]IC[facility] Apr 26, 2024 10:00 AM AMBULATORY - [...] of theEncounter. The data comes from all [facility]. Test Date/Time Test Type Test Details Facility Name Jan 18, 2024 04:23 PM Consult Order COMMUNITY CARE-ECHOCARDIOGRAPHY Cons Director [facility] Jan 19, 2024 12:10 PM Consult Order COMMUNITY CARE-DERMATOLOGY Cons Director [facility] Jan 28, 2024 02:00 AM Laboratory - Chemi stry Order TROPONIN I, HS PLASMA STAT [facility] Mar 01, 2024 03:28 PM Consult Order IFC TRAVEL ING [facility] Cons Director [facility] Lab Results: +/- 30 days of [...] 31, 2024 10:13 AM Reporting Lab: [facility] [address] Performing Lab: [facility] [address] HEMOGLOBIN A1C 5.4 4.0-6.0 Jan 31, 2024 10:50 AM [facility] LIPID PANEL,FASTING Specimen Type: PLASMA No comment entered. Ordering Provider: JULIET SMART Report Released Date/Time: Jan 31, 2024 10:13 AM Reporting Lab: [facility] [address] Performing Lab: [facility] [address] CHOLESTEROL 125 mg/dL <199 TRIGLYCERIDE 95 mg/dL <149 .HDL 37 mg/dL L >40 LDL CALCULATION 69 mg/dL <99 VLDL CALCULATION 19 mg/dL <29 NON HDL CHOLESTEROL 88 mg/dL <129 Jan 31, 2024 07:29 AM [facility] CBC Specimen Type: BLOOD No comment entered. Ordering Provider: BASHIR CARVAJAL Report Released Date/Time: Jan 30, 2024 01:03 PM Reporting Lab: [facility] [address] Performing Lab: [facility] [address] WBC 7.3 4.0-11.0 RBC 3.83 L 4.60-6.20 [...] 30, 2024 01:03 PM Reporting Lab: [facility] [address] Performing Lab: [facility] [address] CREATININE 1.3 mg/dL H 0.7-1.2 UREA NITROGEN [...] 30, 2024 10:43 AM Reporting Lab: [facility] [address] Performing Lab: [facility] [address] POC ACT 241 s H 84-139 Jan 30, 2024 10:08 AM [facility] POC ACT Specimen Type: BLOOD No comment entered. Ordering Provider: RODO CHRISTY Report Released Date/Time: Jan 30, 2024 10:14 AM Reporting Lab: [facility] [address] Performing Lab: [facility] [address] POC ACT 289 s H 84-139 Jan 30, 2024 09:34 AM [facility] POC ACT Specimen Type: BLOOD No comment entered. Ordering Provider: RODO CHRISTY Report Released Date/Time: Jan 30, 2024 10:14 AM Reporting Lab: [facility] [address] Performing Lab: [facility] [address] POC ACT 294 s H 84-139 Jan 30, 2024 05:37 AM [facility] HEPARIN APTT Specimen Type: PLASMA No comment entered. Ordering Provider: BASHIR CARVAJAL Report Released Date/Time: Jan 29, 2024 09:43 PM Reporting Lab: [facility] [address] Performing Lab: [facility] [address] HEPARIN APTT 83.2 s 48.0-92.0 Jan 30, 2024 05:37 AM [facility] BASIC METABOLIC PANEL+MG Specimen Type: PLASMA No comment entered. Ordering Provider: BASHIR CARVAJAL Report Released Date/Time: Jan 29, 2024 12:19 PM Reporting Lab: [facility] [address] Performing Lab: [facility] [address] CREATININE 1.4 mg/dL H 0.7-1.2 UREA NITROGEN [...] Value Reported To: Tomasa Delcid PharmD 01/29/24 @[address] [place] [address]. Critical value report confirmed. Ordering Provider: MERY SAMUEL Report Released Date/Time: Jan 29, 2024 03:00 PM Reporting Lab: [facility] [address] Performing Lab: [facility] [address] HEPARIN APTT 214.6 s HH 48.0-92.0 Jan 29, 2024 06:24 AM [facility] BASIC METABOLIC PANEL+MG Specimen Type: PLASMA No comment entered. Ordering Provider: BASHIR CARVAJAL Report Released Date/Time: Jan 28, 2024 04:36 PM Reporting Lab: [facility] [address] Performing Lab: [facility] [address] CREATININE 1.6 mg/dL H 0.7-1.2 UREA NITROGEN [...] 28, 2024 05:54 AM Reporting Lab: [facility] [address] Performing Lab: [facility] [address] EXTRA PURPLE TUBE RECEIVED Jan 28, 2024 05:53 AM [facility] ALBUMIN Specimen Type: PLASMA No comment entered. Ordering Provider: BASHIR CARVAJAL Report Released Date/Time: Jan 27, 2024 04:49 PM Reporting Lab: [facility] [address] Performing Lab: [facility] [address] ALBUMIN 3.5 g/dL 3.5-5.2 Jan 28, 2024 05:53 AM [facility] BASIC METABOLIC PANEL+MG Specimen Type: PLASMA No comment entered. Ordering Provider: BASHIR CARVAJAL Report Released Date/Time: Jan 27, 2024 05:44 PM Reporting Lab: [facility] [address] Performing Lab: [facility] [address] CREATININE 1.4 mg/dL H 0.7-1.2 UREA NITROGEN [...] 27, 2024 09:15 PM Reporting Lab: [facility] [address] Performing Lab: [facility] [address] TROPONIN I, HS 128 HH <35 Jan 28, 2024 12:35 AM [facility] COVID-19 DIAGNOSTIC PANEL (CEPHEID) Specimen Type: NASOPHARYNGEAL Comment: Cepheid GeneXpert (618) Ordering Provider: LUCAS HAWTHORNE Report Released Date/Time: Jan 27, 2024 04:28 PM Reporting Lab: [facility] [address] Performing Lab: [facility] [address] COVID-19 (CEPHEID) Not Detected Not Detected Jan 28, 2024 12:35 AM [facility] HEPARIN APTT Specimen Type: PLASMA Comment: Critical Value Reported To: Deena Oliveros PharmD 01/28/24 @0110 HV. Critical value report confirmed. Ordering Provider: NATALIE ORDOÑEZ Report Released Date/Time: Jan 27, 2024 07:18 PM Reporting Lab: [facility] [address] Performing Lab: [facility] [address] HEPARIN APTT 133.9 s HH 48.0-92.0 Jan 28, 2024 12:35 AM [facility] TROPONIN I, HS Specimen Type: PLASMA Comment: Critical value previously reported on patient. Ordering Provider: BRANDON MEJIA Report Released Date/Time: Jan 27, 2024 09:15 PM Reporting Lab: [facility] [address] Performing Lab: [facility] [address] TROPONIN I, HS 158 HH <35 Jan 27, 2024 09:22 PM [facility] TROPONIN I, HS Specimen Type: PLASMA Comment: Critical value previously reported on patient. Ordering Provider: BASHIR CARVAJAL Report Released Date/Time: Jan 27, 2024 08:38 PM Reporting Lab: [facility] [address] Performing Lab: [facility] [address] TROPONIN I, HS 146 HH <35 Jan 27, 2024 06:52 PM [facility] TROPONIN I, HS Specimen Type: PLASMA Comment: Critical Value Reported To: Brandon Mejia MD 01/27/24 @[address] [place] [address]. Critical value report confirmed. Ordering Provider: BASHIR CARVAJAL Report Released Date/Time: Jan 27, 2024 04:54 PM Reporting Lab: [facility] [address] Performing Lab: [facility] [address] TROPONIN I, HS 136 HH <35 Jan 27, 2024 06:52 PM [facility] CBC Specimen Type: BLOOD No comment entered. Ordering Provider: BASHIR CARVAJAL Report Released Date/Time: Jan 27, 2024 04:54 PM Reporting Lab: [facility] [address] Performing Lab: [facility] [address] WBC 6.0 4.0-11.0 RBC 3.91 L 4.60-6.20 [...] 27, 2024 04:54 PM Reporting Lab: [facility] [address] Performing Lab: [facility] [address] CREATININE 1.3 mg/dL H 0.7-1.2 UREA NITROGEN [...] Source August 30, 2006 ADVANCE DIRECTIVE ARGENIS CRAMERClaus Phil [facility] Pathology Reports: +/- [...] COMPLETED $APHDR Reporting Lab: [facility] [CLIA# [id number]] [place] [address] - - - - - - - [...] - PATHOLOGY REPORT Accession No. [id number] - - - - - - - [...] - PATHOLOGY REPORT Accession No. [id number] - - - - - - - [...] Pathology Report Performed By: [facility] [CLIA# [id number]] [place] [address] $FTR - - - - - - [...] - - GERI BOYKIN STANDARD FORM 515 ID:[id number] SEX:M :1935 AGE: 88 LOC:[id number] PCP: Sariah Gomes MD /shelly/ JOSE REESE [...] ischemia. He then presented to ED in [place] with chest pain and was found to have no new EKG changes however troponin was elevated to 0.18. Was started on heparin drip loaded with aspirin and transferred to [facility] for coronary angiogram. On arrival he [...] 30 - SAVANNA: : Can consider stopping HAT SPRAYER HCTZ and placing patient on just SAVANNA inhibitor and amlodipine if necessary - AC: Hep gtt - NSAIDS: Contraindicated - TTE in AM - NPO on Tuesday night for angiogram on Tuesday - Needs cardiac rehab at discharge - A1c - Lipids -Troponin x 1 to establish baseline Seen and discussed with Dr. Hawthorne /shelly/ AMADOR LOMAX MD DIRECTOR [employer] Signed: 01/27/2024 17:51 Receipt Acknowledged By: 01/29/2024 15:47 /shelly/ LUCAS HAWTHORNE MD ASSISTANT PRINCIPAL 01/29/2024 ADDENDUM STATUS: COMPLETED Is seen and [...] has mild CKD /shelly/ LUCAS HAWTHORNE MD ASSISTANT PRINCIPAL Signed: 01/29/2024 15:50 AMADOR LOMAX [facility]
--- OUTSIDE RECORDS SUMMARY | 2024-03-10 19:37 | XMS_ITS | Encounter Summary ---
Author Name [facility] Organization [facility] Address [address] [place] [id number] Care Team Providers Care Optoelectronic Technician Name Role Phone SARIAH GOMES Primary Care [...] PART A Sep 09, 2002 PART A [id number] JOAQUIN COUGHLIN S PATIENT MEDICARE (WNR) MEDICARE (M) PART B Sep 09, 2002 PART B [id number] NULL,JOAQUIN S PATIENT MEDICARE (WNR) MEDICARE (M) PART A Sep 09, 2002 PART A [id number] NULLJOAQUIN S PATIENT MEDICARE (WNR) MEDICARE (M) PART B Sep 09, 2002 PART B [id number] MADYSON,JOAQUIN S PATIENT Selected Encounter This section includes the information on record at [place] for the Encounter. Date/Time Encounter Type Encounter Description Reason Provider Source Jan 27, 2024 01:00 AM Outpatient Encounter ADMIN PAT ACTIVTIES (JintronixNONCT) SYSTEM,ZEINAB-SHIRA [facility] Encounter Template Text not used by [place] Plan of Treatment: Future Appointments (+ 6 months) and Future Tests (+/- 45 days) The Plan of Treatment section includes future care activities for the patient from all [place] [facility]. This section includes future appointments and future orders which are active, pending or scheduled. Future Appointments This section includes appointments that were scheduled to occur 6 months from the date of the Encounter, up to a maximum of 20 appointments. The data comes from all [place] treatment facilities. Appointment Date/Time Appointment Type Appointme nt Facility Name Feb 17, 2024 01:00 PM AMBULATORY - NONE [place] [facility] Feb 21, 2024 10:00 AM AMBULATORY - MEDICINE [facility] Feb 24, 2024 12:15 PM AMBULATORY - MEDICINE [facility] Feb 24, 2024 01:00 PM AMBULATORY - MEDICINE [facility] Mar 02, 2024 01:00 PM AMBULATORY - REHAB MEDICIN E [facility] Apr 26, 2024 10:00 AM AMBULATORY - MEDICINE [facility] Active, Pending, and Scheduled Orders This section includes a listing of several types of active, pending, and scheduled orders, including clinic medications orders, diagnostic test orders, procedure orders and consult orders; where the start date of the order is 45 days before the date of the Encounter or 45 days after the date of theEncounter. The data comes from all [facility]. Test Date/Time Test Type Test Details Facility Name Jan 18, 2024 04:23 PM Consult Order COMMUNITY CARE-ECHOCARDIOGRAPHY Cons Hand Inserter Operator's [facility] Jan 19, 2024 12:10 PM Consult Order COMMUNITY CARE-DERMATOLOGY Cons Hand Inserter Operator's [facility] Jan 28, 2024 02:00 AM Laboratory - Chemi stry Order TROPONIN I, HS PLASMA STAT [facility] Mar 01, 2024 03:28 PM Consult Order IFC TRAVEL ING UNIVERSAL CONSULT-LOWELL Cons Hand Inserter Operator's [facility] Lab Results: +/- 30 days of the [...] Range Comment Jan 31, 2024 10:50 AM [facility] HEMOGLOBIN A1C Specimen Type: BLOOD Comment: [...] 10:13 AM Reporting Lab: [facility] [phone] Performing Lab: [facility] [address] HEMOGLOBIN A1C 5.4 4.0-6.0 Jan 31, 2024 10:50 AM [facility] LIPID PANEL,FASTING Specimen Type: PLASMA No comment entered. Ordering Provider: JULIET SMART Report Released Date/Time: Jan 31, 2024 10:13 AM Reporting Lab: [facility] [phone] Performing Lab: [facility] [phone] CHOLESTEROL 125 mg/dL <199 TRIGLYCERIDE 95 mg/dL <149 .HDL 37 mg/dL L >40 LDL CALCULATION 69 mg/dL <99 VLDL CALCULATION 19 mg/dL <29 NON HDL CHOLESTEROL 88 mg/dL <129 Jan 31, 2024 07:29 AM [facility] CBC Specimen Type: BLOOD No comment entered. Ordering Provider: BASHIR CARVAJAL Report Released Date/Time: Jan 30, 2024 01:03 PM Reporting Lab: [facility] [address] Performing Lab: [facility] [address] WBC 7.3 4.0-11.0 RBC 3.83 L 4.60-6.20 HGB 11.4 g/dL L 13.5-17.9 HCT 35.1 L 41.0-54.0 MCV 91.6 fL 80.0-100.0 MCH 29.8 pg 27.0-33.0 MCHC 32.5 g/dL 32.0-37.5 PLT 193 150-400 MPV 10.7 fL 9.1-13.0 RDW 12.2 11.5-14.5 Jan 31, 2024 07:29 AM [facility] BASIC METABOLIC PANEL+MG Specimen Type: PLASMA No comment entered. Ordering Provider: BASHIR CARVAJAL Report Released Date/Time: Jan 30, 2024 01:03 PM Reporting Lab: [facility] [phone] Performing Lab: [facility] [address] CREATININE 1.3 mg/dL H 0.7-1.2 UREA NITROGEN 24 mg/dL 8-26 GLUCOSE 91 mg/dL 70-100 SODIUM 138 mmol/L 136-145 POTASSIUM 4.1 mmol/L 3.5-5.1 CHLORIDE 108 mmol/L H 98-107 CO2 23 mmol/L 22-29 CALCIUM 8.8 mg/dL 8.4-10.2 MAGNESIUM 2.1 mg/dL 1.6-2.6 ANION GAP 7 mmol/L 5-15 .CREAT EGFR(CKD-EPI) 54 L >60 Jan 30, 2024 10:37 AM [facility] POC ACT Specimen Type: BLOOD No comment entered. Ordering Provider: RODO CHRISTY Report Released Date/Time: Jan 30, 2024 10:43 AM Reporting Lab: [facility] [phone] Performing Lab: [facility] [address] POC ACT 241 s H 84-139 Jan 30, 2024 10:08 AM [facility] POC ACT Specimen Type: BLOOD No comment entered. Ordering Provider: RODO CHRISTY Report Released Date/Time: Jan 30, 2024 10:14 AM Reporting Lab: [facility] [phone] Performing Lab: [facility] [address] POC ACT 289 s H 84-139 Jan 30, 2024 09:34 AM [facility] POC ACT Specimen Type: BLOOD No comment entered. Ordering Provider: RODO CHRISTY Report Released Date/Time: Jan 30, 2024 10:14 AM Reporting Lab: [facility] [address] Performing Lab: [facility] [address] POC ACT 294 s H 84-139 Jan 30, 2024 05:37 AM [facility] HEPARIN APTT Specimen Type: PLASMA No comment entered. Ordering Provider: BASHIR CARVAJAL Report Released Date/Time: Jan 29, 2024 09:43 PM Reporting Lab: [facility] [address] Performing Lab: [facility] [address] HEPARIN APTT 83.2 s 48.0-92.0 Jan 30, 2024 05:37 AM [facility] BASIC METABOLIC PANEL+MG Specimen Type: PLASMA No comment entered. Ordering Provider: BASHIR CARVAJAL Report Released Date/Time: Jan 29, 2024 12:19 PM Reporting Lab: [facility] [phone] Performing Lab: [facility] [address] CREATININE 1.4 mg/dL H 0.7-1.2 UREA NITROGEN 27 mg/dL H 8-26 GLUCOSE 95 mg/dL 70-100 SODIUM 139 mmol/L 136-145 POTASSIUM 4.2 mmol/L 3.5-5.1 CHLORIDE 109 mmol/L H 98-107 CO2 24 mmol/L 22-29 CALCIUM 9.0 mg/dL 8.4-10.2 MAGNESIUM 2.1 mg/dL 1.6-2.6 ANION GAP 6 mmol/L 5-15 .CREAT EGFR(CKD-EPI) 49 L >60 Jan 29, 2024 09:02 PM [facility] HEPARIN APTT Specimen Type: PLASMA Comment: Critical Value Reported To: Tomasa Delcid PharmD 01/29/24 @[address] [place] [address]. Critical value report confirmed. Ordering Provider: MERY SAMUEL Report Released Date/Time: Jan 29, 2024 03:00 PM Reporting Lab: [facility] [phone] Performing Lab: [facility] [address] HEPARIN APTT 214.6 s HH 48.0-92.0 Jan 29, 2024 06:24 AM [facility] BASIC METABOLIC PANEL+MG Specimen Type: PLASMA No comment entered. Ordering Provider: BASHIR CARVAJAL Report Released Date/Time: Jan 28, 2024 04:36 PM Reporting Lab: [facility] [address] Performing Lab: [facility] [address] CREATININE 1.6 mg/dL H 0.7-1.2 UREA NITROGEN 27 mg/dL H 8-26 GLUCOSE 92 mg/dL 70-100 SODIUM 140 mmol/L 136-145 POTASSIUM 4.2 mmol/L 3.5-5.1 CHLORIDE 110 mmol/L H 98-107 CO2 25 mmol/L 22-29 CALCIUM 8.8 mg/dL 8.4-10.2 MAGNESIUM 2.1 mg/dL 1.6-2.6 ANION GAP 5 mmol/L 5-15 .CREAT EGFR(CKD-EPI) 42 L >60 Jan 28, 2024 05:54 AM [facility] EXTRA PURPLE TUBE Specimen Type: BLOOD No comment entered. Ordering Provider: RODO CHRISTY Report Released Date/Time: Jan 28, 2024 05:54 AM Reporting Lab: [facility] [phone] Performing Lab: [facility] [address] EXTRA PURPLE TUBE RECEIVED Jan 28, 2024 05:53 AM [facility] ALBUMIN Specimen Type: PLASMA No comment entered. Ordering Provider: BASHIR CARVAJAL Report Released Date/Time: Jan 27, 2024 04:49 PM Reporting Lab: [facility] [address] Performing Lab: [facility] [address] ALBUMIN 3.5 g/dL 3.5-5.2 Jan 28, 2024 05:53 AM [facility] BASIC METABOLIC PANEL+MG Specimen Type: PLASMA No comment entered. Ordering Provider: BASHIR CARVAJAL Report Released Date/Time: Jan 27, 2024 05:44 PM Reporting Lab: [facility] [phone] Performing Lab: [facility] [address] CREATININE 1.4 mg/dL H 0.7-1.2 UREA NITROGEN 28 mg/dL H 8-26 GLUCOSE 92 mg/dL 70-100 SODIUM 140 mmol/L 136-145 POTASSIUM 4.4 mmol/L 3.5-5.1 CHLORIDE 109 mmol/L H 98-107 CO2 23 mmol/L 22-29 CALCIUM 8.8 mg/dL 8.4-10.2 MAGNESIUM 2.1 mg/dL 1.6-2.6 ANION GAP 8 mmol/L 5-15 .CREAT EGFR(CKD-EPI) 49 L >60 Jan 28, 2024 05:52 AM [facility] TROPONIN I, HS Specimen Type: PLASMA Comment: Critical value previously reported on patient. Ordering Provider: BRANDON MEJIA Report Released Date/Time: Jan 27, 2024 09:15 PM Reporting Lab: [facility] [address] Performing Lab: [facility] [address] TROPONIN I, HS 128 HH <35 Jan 28, 2024 12:35 AM [facility] COVID-19 DIAGNOSTIC PANEL (CEPHEID) Specimen Type: NASOPHARYNGEAL Comment: Cepheid GeneXpert (618) Ordering Provider: LUCAS HAWTHORNE Report Released Date/Time: Jan 27, 2024 04:28 PM Reporting Lab: [facility] [address] Performing Lab: [facility] [address] COVID-19 (CEPHEID) Not Detected Not Detected Jan 28, 2024 12:35 AM [facility] HEPARIN APTT Specimen Type: PLASMA Comment: Critical Value Reported To: Deena Oliveros PharmD 01/28/24 @0110 HV. Critical value report confirmed. Ordering Provider: NATALIE ORDOÑEZ Report Released Date/Time: Jan 27, 2024 07:18 PM Reporting Lab: [facility] [address] Performing Lab: [facility] [address] HEPARIN APTT 133.9 s HH 48.0-92.0 Jan 28, 2024 12:35 AM [facility] TROPONIN I, HS Specimen Type: PLASMA Comment: Critical value previously reported on patient. Ordering Provider: BRANDON MEJIA Report Released Date/Time: Jan 27, 2024 09:15 PM Reporting Lab: [facility] [address] Performing Lab: [facility] [address] TROPONIN I, HS 158 HH <35 Jan 27, 2024 09:22 PM [facility] TROPONIN I, HS Specimen Type: PLASMA Comment: Critical value previously reported on patient. Ordering Provider: BASHIR CARVAJAL Report Released Date/Time: Jan 27, 2024 08:38 PM Reporting Lab: [facility] [address] Performing Lab: [facility] [address] TROPONIN I, HS 146 HH <35 Jan 27, 2024 06:52 PM [facility] TROPONIN I, HS Specimen Type: PLASMA Comment: Critical Value Reported To: Brandon Mejia MD 01/27/24 @[address] [place] [address]. Critical value report confirmed. Ordering Provider: BASHIR CARVAJAL Report Released Date/Time: Jan 27, 2024 04:54 PM Reporting Lab: [facility] [address] Performing Lab: [facility] [address] TROPONIN I, HS 136 HH <35 Jan 27, 2024 06:52 PM [facility] CBC Specimen Type: BLOOD No comment entered. Ordering Provider: BASHIR CARVAJAL Report Released Date/Time: Jan 27, 2024 04:54 PM Reporting Lab: [facility] [address] Performing Lab: [facility] [address] WBC 6.0 4.0-11.0 RBC 3.91 L 4.60-6.20 HGB 12.1 g/dL L 13.5-17.9 HCT 36.5 L 41.0-54.0 MCV 93.4 fL 80.0-100.0 MCH 30.9 pg 27.0-33.0 MCHC 33.2 g/dL 32.0-37.5 PLT 177 150-400 MPV 10.7 fL 9.1-13.0 RDW 12.4 11.5-14.5 Jan 27, 2024 06:52 PM [facility] BASIC METABOLIC PANEL+MG Specimen Type: PLASMA No comment entered. Ordering Provider: BASHIR CARVAJAL Report Released Date/Time: Jan 27, 2024 04:54 PM Reporting Lab: [facility] [address] Performing Lab: [facility] [address] CREATININE 1.3 mg/dL H 0.7-1.2 UREA NITROGEN [...] 14, 2023 11:30 AM VA-TOBACCO FORMER USER [facility] Tobacco Use History This section includes a history of the smoking, or tobacco-related health factors, that were collected on or before the date of the Encounter. The data comes from the [place] facility where the Encounter took place. Date/Time Smoking Status/Tobacco Use Comment F acility Dec 14, 2023 11:30 AM VA-TOBACCO QUIT 15 YRS OR MORE [facility] Oct 13, 2022 01:30 PM VA-TOBACCO FORMER USER [facility] Oct 13, 2022 01:30 PM VA-TOBACCO QUIT 15 YRS OR MORE [facility] Jul 27, 2021 10:00 AM VA-TOBACCO FORMER USER [facility] Jul 27, 2021 10:00 AM VA-TOBACCO QUIT 15 YRS OR MORE [facility] Jan 02, 2020 09:00 AM VA-TOBACCO FORMER USER [facility] Jan 02, 2020 09:00 AM VA-TOBACCO QUIT 15 YRS OR MORE [facility] Jul 21, 2018 03:00 PM VA-TOBACCO FORMER USER [facility] Jul 21, 2018 03:00 PM VA-TOBACCO QUIT 15 YRS OR MORE [facility] Dec 24, 2016 08:01 AM FORMER TOBACCO USER 7Y OR GREATE R [facility] Dec 23, 2015 08:23 AM FORMER TOBACCO USE >1Y <7Y [facility] Dec 26, 2014 10:32 AM FORMER TOBACCO USER 7Y OR GREATE R [facility] August 13, 2013 08:22 AM LIFETIME NON-TOBACCO USER [facility] August 30, 2006 08:38 AM FORMER TOBACCO USER 7Y OR GREATE R [facility] Advance Directives: All historical and current Section Date Range: From patient's date of to the date document was created. This section includes ALL of a patient's completed or amended [place] Advance and Rescinded Directives. The entries below indicate that a directive exists for the patient, but an actual copy is not included with this document. The data comes from all [place] facilities. Date Advance Directives Provider Source August [...] COSIGNER: URGENCY: STATUS: COMPLETED $APHDR Reporting Lab: [facility] [CLIA# [id number]] [place] [address] - - - - - - - [...] - PATHOLOGY REPORT Accession No. [id number] - - - - - - - [...] - PATHOLOGY REPORT Accession No. [id number] - - - - - - - [...] inked. CE. (D)[facility] [place] MICROSCOPIC DESCRIPTION: Microscopic examination performed. [...] Performing Laboratory: Surgical Pathology Report Performed By: [facility] [CLIA# [id number]] [place] [address] $FTR - - - - - - [...] - - MADYSON,GERI NUNEZ STANDARD FORM 515 ID:[id number] SEX:M :[id number] AGE: 88 LOC:[id number] PCP: Sariah Gomes MD /shelly/ JOSE REESE M.D. STAFF PATHOLOGIST Signed: 01/06/2024 11:16 JOSE REESE [facility] Encounter Notes: All associated encounter notes This section contains the clinical notes associated to the Encounter. Date/Time Encounter Note(s) Provider Source Jan 27, 2024 01:00 AM CRITICAL CARE UNIT NOTE: LOCAL TITLE: [facility] INPATIENT FLOWSHEET STANDARD TITLE: CRITICAL CARE UNIT NOTE DATE OF NOTE: JAN 27, 2024@01:00 ENTRY DATE: JAN 28, 2024@14:36:06 AUTHOR: [employer] [place] EXP COSIGNER: URGENCY: STATUS: COMPLETED This is a place barron only. Please see [employer] to view document. /es/ [facility]IS[facility] SYSTEM ICU DOCUMENT IMPORT Signed: 01/28/2024 14:36 SYSTEM,CIS-ARK [facility] Jan 27, 2024 01:00 AM CRITICAL CARE UNIT NOTE: LOCAL TITLE: [facility]A RESPIRATORY THERAPY FLOWSHEET STANDARD TITLE: CRITICAL CARE UNIT NOTE DATE OF NOTE: JAN 27, 2024@01:00 ENTRY DATE: JAN 28, 2024@15:06:33 AUTHOR: [employer] [place] EXP COSIGNER: URGENCY: STATUS: COMPLETED This is a place barron only. Please see [facility] to view document. /es/ [facility] SYSTEM ICU DOCUMENT IMPORT Signed: 01/28/2024 15:06 SYSTEM,CIS-ARK [facility]
--- OUTSIDE RECORDS SUMMARY | 2024-03-10 19:37 | XMS_ITS ---
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 Date/Time Encounter Type Encounter Description Reason Pro vider Source Jan 28, 2024 06:48 PM Inpatient Visit DAILY HOSPITALIZATION DATA [facility] Encounter Template Text not used by NE Plan of Treatment: Future Appointments (+ 6 months) and Future Tests (+/- 45 days) The Plan of Treatment section includes future care activities for the patient [facility] This section includes future appointments and future orders which are active, pending or scheduled. Future Appointments This section includes appointments that were scheduled to occur 6 months from the date of the Encounter, up to a maximum of 20 appointments. The data comes from all NE treatment [facility]. Appointment Date/Time Appointment Type Appointme nt Facility Name Feb 17, 2024 01:00 PM AMBULATORY - NONE [facility] Feb 21, 2024 10:00 AM AMBULATORY - MEDICINE [facility] Feb 24, 2024 12:15 PM AMBULATORY - MEDICINE [facility] Feb 24, 2024 01:00 PM AMBULATORY - MEDICINE [facility] Mar 02, 2024 01:00 PM AMBULATORY - REHAB MEDICIN E [facility] Apr 26, 2024 10:00 AM AMBULATORY [...] of theEncounter. The data comes from all [place] treatment [facility]. Test Date/Time Test Type Test Details Facility Name Jan 18, 2024 04:23 PM Consult Order COMMUNITY CARE-ECHOCARDIOGRAPHY Cons [facility] Jan 19, 2024 12:10 PM Consult Order COMMUNITY CARE-DERMATOLOGY Cons [facility] Jan 28, 2024 02:00 AM Laboratory - Chemi stry Order TROPONIN I, HS PLASMA STAT [facility] Mar 01, 2024 03:28 PM Consult Order IFC TRAVEL ING UNIVERSAL CONSULT-TYRO Cons [facility] Lab Results: +/- 30 days of the encounter This section includes the Chemistry and Hematology Lab Results on record with NE for the patient. Radiology Reports and Pathology Reports are provided separately, in subsequent sections. Lab Results This section contains the Chemistry/Hematology Results that were resulted 30 days before or 30 daysafter the date of the Encounter. Date/Time Source Result Type Result - Unit Interpretation Reference Range Comment Jan 31, 2024 10:50 AM [facility] HEMOGLOBIN A1C Specimen Type: BLOOD Comment: [...] 2024 10:13 AM Reporting Lab: [facility] [id number] Performing Lab: [facility] [phone] HEMOGLOBIN A1C 5.4 4.0-6.0 Jan 31, 2024 10:50 AM [facility] LIPID PANEL,FASTING Specimen Type: PLASMA No comment entered. Ordering Provider: JULIET SMART Report Released Date/Time: Jan 31, 2024 10:13 AM Reporting Lab: [facility] [phone] Performing Lab: [facility] [address] CHOLESTEROL 125 mg/dL <199 TRIGLYCERIDE 95 mg/dL <149 .HDL 37 mg/dL L >40 LDL CALCULATION 69 mg/dL <99 VLDL CALCULATION 19 mg/dL <29 NON HDL CHOLESTEROL 88 mg/dL <129 Jan 31, 2024 07:29 AM [facility] CBC Specimen Type: BLOOD No comment entered. Ordering Provider: BASHIR CARVAJAL Report Released Date/Time: Jan 30, 2024 01:03 PM Reporting Lab: [facility] [phone] Performing Lab: [facility] [phone] WBC 7.3 4.0-11.0 RBC 3.83 L 4.60-6.20 HGB 11.4 g/dL L 13.5-17.9 HCT 35.1 L 41.0-54.0 MCV 91.6 fL 80.0-100.0 MCH 29.8 pg 27.0-33.0 MCHC 32.5 g/dL 32.0-37.5 PLT 193 150-400 MPV 10.7 fL 9.1-13.0 RDW 12.2 11.5-14.5 Jan 31, 2024 07:29 AM [facility] BASIC METABOLIC PANEL+MG Specimen Type: PLASMA No comment entered. Ordering Provider: BASHIR CARVAJAL Report Released Date/Time: Jan 30, 2024 01:03 PM Reporting Lab: [facility] [phone] Performing Lab: [facility] [address] CREATININE 1.3 mg/dL H 0.7-1.2 UREA NITROGEN 24 mg/dL 8-26 GLUCOSE 91 mg/dL 70-100 SODIUM 138 mmol/L 136-145 POTASSIUM 4.1 mmol/L 3.5-5.1 CHLORIDE 108 mmol/L H 98-107 CO2 23 mmol/L 22-29 CALCIUM 8.8 mg/dL 8.4-10.2 MAGNESIUM 2.1 mg/dL 1.6-2.6 ANION GAP 7 mmol/L 5-15 .CREAT EGFR(CKD-EPI) 54 L >60 Jan 30, 2024 10:37 AM [facility] POC ACT Specimen Type: BLOOD No comment entered. Ordering Provider: RODO CHRISTY Report Released Date/Time: Jan 30, 2024 10:43 AM Reporting Lab: [facility] [phone] Performing Lab: [facility] [address] POC ACT 241 s H 84-139 Jan 30, 2024 10:08 AM [facility] POC ACT Specimen Type: BLOOD No comment entered. Ordering Provider: RODO CHRISTY Report Released Date/Time: Jan 30, 2024 10:14 AM Reporting Lab: [facility] [phone] Performing Lab: [facility] [address] POC ACT 289 s H 84-139 Jan 30, 2024 09:34 AM [facility] POC ACT Specimen Type: BLOOD No comment entered. Ordering Provider: RODO CHRISTY Report Released Date/Time: Jan 30, 2024 10:14 AM Reporting Lab: [facility] [phone] Performing Lab: [facility] [address] POC ACT 294 s H 84-139 Jan 30, 2024 05:37 AM [facility] HEPARIN APTT Specimen Type: PLASMA No comment entered. Ordering Provider: BASHIR CARVAJAL Report Released Date/Time: Jan 29, 2024 09:43 PM Reporting Lab: [facility] [phone] Performing Lab: [facility] [phone] HEPARIN APTT 83.2 s 48.0-92.0 Jan 30, 2024 05:37 AM [facility] BASIC METABOLIC PANEL+MG Specimen Type: PLASMA No comment entered. Ordering Provider: BASHIR CARVAJAL Report Released Date/Time: Jan 29, 2024 12:19 PM Reporting Lab: [facility] [phone] Performing Lab: [facility] [phone] CREATININE 1.4 mg/dL H 0.7-1.2 UREA NITROGEN 27 mg/dL H 8-26 GLUCOSE 95 mg/dL 70-100 SODIUM 139 mmol/L 136-145 POTASSIUM 4.2 mmol/L 3.5-5.1 CHLORIDE 109 mmol/L H 98-107 CO2 24 mmol/L 22-29 CALCIUM 9.0 mg/dL 8.4-10.2 MAGNESIUM 2.1 mg/dL 1.6-2.6 ANION GAP 6 mmol/L 5-15 .CREAT EGFR(CKD-EPI) 49 L >60 Jan 29, 2024 09:02 PM [facility] HEPARIN APTT Specimen Type: PLASMA Comment: Critical Value Reported To: Tomasa Delcid PharmD 01/29/24 @[address] [place] [address]. Critical value report confirmed. Ordering Provider: MERY SAMUEL Report Released Date/Time: Jan 29, 2024 03:00 PM Reporting Lab: [facility] [phone] Performing Lab: [facility] [address] HEPARIN APTT 214.6 s HH 48.0-92.0 Jan 29, 2024 06:24 AM [facility] BASIC METABOLIC PANEL+MG Specimen Type: PLASMA No comment entered. Ordering Provider: BASHIR CARVAJAL Report Released Date/Time: Jan 28, 2024 04:36 PM Reporting Lab: [facility] [phone] Performing Lab: [facility] [phone] CREATININE 1.6 mg/dL H 0.7-1.2 UREA NITROGEN 27 mg/dL H 8-26 GLUCOSE 92 mg/dL 70-100 SODIUM 140 mmol/L 136-145 POTASSIUM 4.2 mmol/L 3.5-5.1 CHLORIDE 110 mmol/L H 98-107 CO2 25 mmol/L 22-29 CALCIUM 8.8 mg/dL 8.4-10.2 MAGNESIUM 2.1 mg/dL 1.6-2.6 ANION GAP 5 mmol/L 5-15 .CREAT EGFR(CKD-EPI) 42 L >60 Jan 28, 2024 05:54 AM [facility] EXTRA PURPLE TUBE Specimen Type: BLOOD No comment entered. Ordering Provider: RODO CHRISTY Report Released Date/Time: Jan 28, 2024 05:54 AM Reporting Lab: [facility] [phone] Performing Lab: [facility] [phone] EXTRA PURPLE TUBE RECEIVED Jan 28, 2024 05:53 AM [facility] ALBUMIN Specimen Type: PLASMA No comment entered. Ordering Provider: BASHIR CARVAJAL Report Released Date/Time: Jan 27, 2024 04:49 PM Reporting Lab: [facility] [phone] Performing Lab: [facility] [address] ALBUMIN 3.5 g/dL 3.5-5.2 Jan 28, 2024 05:53 AM [facility] BASIC METABOLIC PANEL+MG Specimen Type: PLASMA No comment entered. Ordering Provider: BASHIR CARVAJAL Report Released Date/Time: Jan 27, 2024 05:44 PM Reporting Lab: [facility] [phone] Performing Lab: [facility] [address] CREATININE 1.4 mg/dL H 0.7-1.2 UREA NITROGEN 28 mg/dL H 8-26 GLUCOSE 92 mg/dL 70-100 SODIUM 140 mmol/L 136-145 POTASSIUM 4.4 mmol/L 3.5-5.1 CHLORIDE 109 mmol/L H 98-107 CO2 23 mmol/L 22-29 CALCIUM 8.8 mg/dL 8.4-10.2 MAGNESIUM 2.1 mg/dL 1.6-2.6 ANION GAP 8 mmol/L 5-15 .CREAT EGFR(CKD-EPI) 49 L >60 Jan 28, 2024 05:52 AM [facility] TROPONIN I, HS Specimen Type: PLASMA Comment: Critical value previously reported on patient. Ordering Provider: BRANDON MEJIA Report Released Date/Time: Jan 27, 2024 09:15 PM Reporting Lab: [facility] [phone] Performing Lab: [facility] [phone] TROPONIN I, HS 128 HH <35 Jan 28, 2024 12:35 AM [facility] COVID-19 DIAGNOSTIC PANEL (CEPHEID) Specimen Type: NASOPHARYNGEAL Comment: Cepheid GeneXpert (618) Ordering Provider: LUCAS HAWTHORNE Report Released Date/Time: Jan 27, 2024 04:28 PM Reporting Lab: [facility] [phone] Performing Lab: [facility] [address] COVID-19 (CEPHEID) Not Detected Not Detected Jan 28, 2024 12:35 AM [facility] HEPARIN APTT Specimen Type: PLASMA Comment: Critical Value Reported To: Deena Oliveros PharmD 01/28/24 @0110 HV. Critical value report confirmed. Ordering Provider: NATALIE ORDOÑEZ Report Released Date/Time: Jan 27, 2024 07:18 PM Reporting Lab: [facility] [address] Performing Lab: [facility] [address] HEPARIN APTT 133.9 s HH 48.0-92.0 Jan 28, 2024 12:35 AM [facility] TROPONIN I, HS Specimen Type: PLASMA Comment: Critical value previously reported on patient. Ordering Provider: BRANDON MEJIA Report Released Date/Time: Jan 27, 2024 09:15 PM Reporting Lab: [facility] [address] Performing Lab: [facility] [address] TROPONIN I, HS 158 HH <35 Jan 27, 2024 09:22 PM [facility] TROPONIN I, HS Specimen Type: PLASMA Comment: Critical value previously reported on patient. Ordering Provider: BASHIR CARVAJAL Report Released Date/Time: Jan 27, 2024 08:38 PM Reporting Lab: [facility] [phone] Performing Lab: [facility] [address] TROPONIN I, HS 146 HH <35 Jan 27, 2024 06:52 PM [facility] TROPONIN I, HS Specimen Type: PLASMA Comment: Critical Value Reported To: Brandon Mejia MD 01/27/24 @1950 KL. Critical value report confirmed. Ordering Provider: BASHIR CARVAJAL Report Released Date/Time: Jan 27, 2024 04:54 PM Reporting Lab: [facility] [address] Performing Lab: [facility] [address] TROPONIN I, HS 136 HH <35 Jan 27, 2024 06:52 PM [facility] CBC Specimen Type: BLOOD No comment entered. Ordering Provider: BASHIR CARVAJAL Report Released Date/Time: Jan 27, 2024 04:54 PM Reporting Lab: [facility] [address] Performing Lab: [facility] [address] WBC 6.0 4.0-11.0 RBC 3.91 L 4.60-6.20 HGB 12.1 g/dL L 13.5-17.9 HCT 36.5 L 41.0-54.0 MCV 93.4 fL 80.0-100.0 MCH 30.9 pg 27.0-33.0 MCHC 33.2 g/dL 32.0-37.5 PLT 177 150-400 MPV 10.7 fL 9.1-13.0 RDW 12.4 11.5-14.5 Jan 27, 2024 06:52 PM [facility] BASIC METABOLIC PANEL+MG Specimen Type: PLASMA No comment entered. Ordering Provider: BASHIR CARVAJAL Report Released Date/Time: Jan 27, 2024 04:54 PM Reporting Lab: [facility] [phone] Performing Lab: [facility] [address] CREATININE 1.3 mg/dL H 0.7-1.2 UREA NITROGEN [...] Jan 28, 2024 03:42 AM 0 [facility] Jan 28, 2024 03:25 AM 7 [facility] Social History: Smoking Status (Most current) and Tobacco Use (All prior to encounter date) This section includes the most current, and the historical, smoking and tobacco- related health factors from the NE facility where the Encounter took place. Current Smoking Status This section includes the most current smoking, or tobacco-related health factor, from the NE facility where the Encounter took place. Date/Time Current Smoking Status Comment Facil ity Dec 14, 2023 11:30 AM VA-TOBACCO FORMER USER [facility] Tobacco Use History This section includes a history of the smoking, or tobacco-related health factors, that were collected on or before the date of the Encounter. The data comes from the NE facility where the Encounter took place. Date/Time Smoking Status/Tobacco Use Comment F acility Dec 14, 2023 11:30 AM VA-TOBACCO QUIT 15 YRS OR MORE [facility] Oct 13, 2022 01:30 PM VA-TOBACCO FORMER USER [facility] Oct 13, 2022 01:30 PM VA-TOBACCO QUIT 15 YRS OR MORE [facility] Jul 27, 2021 10:00 AM VA-TOBACCO FORMER USER [facility] Jul 27, 2021 10:00 AM VA-TOBACCO QUIT 15 YRS OR MORE [facility] Jan 02, 2020 09:00 AM VA-TOBACCO FORMER USER [facility] Jan 02, 2020 09:00 AM VA-TOBACCO QUIT 15 YRS OR MORE [facility] Jul 21, 2018 03:00 PM VA-TOBACCO FORMER USER [facility] Jul 21, 2018 03:00 PM VA-TOBACCO QUIT 15 YRS OR MORE [facility] Dec 24, 2016 08:01 AM FORMER TOBACCO USER 7Y OR GREATE R [facility] Dec 23, 2015 08:23 AM FORMER TOBACCO USE >1Y <7Y [facility] Dec 26, 2014 10:32 AM FORMER TOBACCO USER 7Y OR GREATE R [facility] August 13, 2013 08:22 AM LIFETIME NON-TOBACCO USER [facility] August 30, 2006 08:38 AM FORMER TOBACCO USER 7Y OR GREATE R [facility] Advance Directives: All historical and current Section Date Range: From patient's date of to the date document was created. This section includes ALL of a patient's completed or amended [place] Advance and Rescinded Directives. The entries below indicate that a directive exists for the patient, but an actual copy is not included with this document. The data comes from all NE facilities. Date Advance Directives Provider Source August 30, 2006 ADVANCE DIRECTIVE ARGENIS CRAMERCRISTINOClaus Vill[facility]real [facility] Pathology Reports: +/- 30 days of [...] the Encounter. The data comes from all [place] treatment facilities. Date/Time Pathology Report Provider Source Jan 06, 2024 11:16 AM [facility] PATHOL OGY REPORT: LOCAL TITLE: LR SURGICAL PATHOLOGY REPORT STANDARD TITLE: PATHOLOGY REPORT DATE OF NOTE: JAN 06, 2024@11:16:39 ENTRY DATE: JAN 06, 2024@11:16:39 AUTHOR: JOSE REESE COSIGNER: URGENCY: STATUS: COMPLETED $APHDR Reporting Lab: [facility] [CLIA# [id number]] [place] [address] - - - - - - - [...] - PATHOLOGY REPORT Accession No. [id number] - - - - - - - [...] - PATHOLOGY REPORT Accession No. [id number] - - - - - - - [...] Performing Laboratory: Surgical Pathology Report Performed By: [facility] [CLIA# [id number]] [place] [address] $FTR - - - - - - - - - - - - - - - - - - - - - - - - - - - - - - - - - - - - - - - - (End of report) JOSE REESE MD [facility] Date Jan 06, 2024 - - - - - - - - - - - - - - - - - - - - - - - - - - - - - - - - - - - - - - - - GERI COUGHLIN STANDARD FORM 515 ID:[id number] SEX:M :[id number] AGE: 88 LOC:[id number] PCP: Sariah Gomes MD /shelly/ JOSE REESE M.D. STAFF PATHOLOGIST Signed: 01/06/2024 11:16 JOSE REESE [facility]
--- OUTSIDE RECORDS SUMMARY | 2024-03-10 19:37 | XMS_ITS ---
[place] DAILY HOSPITALIZATION DATA [facility] Encounter Summary Created on: March 10, 2024 GERI COUGHLIN : 1935 Sex: Male Author Name [facility] [place] [facility] [place] Address [address] [place] [address] Care Team Providers Care Demolitionist Name Role Phone SARIAH GOMES Primary Care [...] PART B Sep 09, 2002 PART B [id number] JOAQUIN COUGHLIN S PATIENT MEDICARE (WNR) MEDICARE (M) PART A Sep 09, 2002 PART A [id number] JOAQUIN COUGHLIN S PATIENT MEDICARE (WNR) MEDICARE (M) PART A Sep 09, 2002 PART A [id number] JOAQUIN COUGHLIN S PATIENT MEDICARE (WNR) MEDICARE (M) PART B Sep 09, 2002 PART B [id number] JOAQUIN COUGHLIN S PATIENT Selected Encounter This section includes the information on record at [place] for the Encounter. Date/Time Encounter Type Encounter Description Reason Pro vider Source Jan 27, 2024 04:46 PM Inpatient Visit DAILY HOSPITALIZATION DATA [facility] Encounter Template Text not used by [place] Plan of Treatment: Future Appointments (+ 6 months) and Future Tests (+/- 45 days) The Plan of Treatment section includes future care activities for the patient from all [place] [facility] This section includes future appointments and future orders which are active, pending or scheduled. Future Appointments This section includes appointments that were scheduled to occur 6 months from the date of the Encounter, up to a maximum of 20 appointments. The data comes from all [place] treatment [facility]. Appointment Date/Time Appointment Type Appointme nt Facility Name Feb 17, 2024 01:00 PM AMBULATORY - NONE [facility] Feb 21, 2024 10:00 AM AMBULATORY - MEDICINE [facility] Feb 24, 2024 12:15 PM AMBULATORY - MEDICINE [facility] Feb 24, 2024 01:00 PM AMBULATORY - MEDICINE [facility] Mar 02, 2024 01:00 PM AMBULATORY - REHAB MEDICIN E [facility] Apr 26, 2024 10:00 AM AMBULATORY - MEDICINE [facility] Active, Pending, and [...] of theEncounter. The data comes from all [place] treatment [facility] Test Date/Time Test Type Test Details Facility Name Jan 18, 2024 04:23 PM Consult Order COMMUNITY CARE-ECHOCARDIOGRAPHY Cons Collection Supervisor's Choice [facility] Jan 19, 2024 12:10 PM Consult Order COMMUNITY CARE-DERMATOLOGY Cons Collection Supervisor[facility] Jan 28, 2024 02:00 AM Laboratory - Chemi stry Order TROPONIN I, HS PLASMA STAT [facility] Mar 01, 2024 03:28 PM Consult Order IFC TRAVEL ING UNIVERSAL [facility]SULT-[facility] Cons Collection Supervisor's Choice [facility] Lab Results: +/- 30 days of the encounter This section includes the Chemistry and Hematology Lab Results on record with [place] for the patient. Radiology Reports and Pathology Reports are provided separately, in subsequent sections. Lab Results This section contains the Chemistry/Hematology Results that were resulted 30 days before or 30 daysafter the date of the Encounter. Date/Time Source Result Type Result - Unit Interpretation Reference Range Comment Jan 31, 2024 10:50 AM [facility] HEMOGLOBIN A1C Specimen Type: BLOOD [...] 31, 2024 10:13 AM Reporting Lab: [facility] [phone] Performing Lab: [facility] [address] HEMOGLOBIN A1C 5.4 4.0-6.0 Jan 31, 2024 10:50 AM [facility] LIPID PANEL,FASTING Specimen Type: PLASMA No comment entered. Ordering Provider: JULIET SMART Report Released Date/Time: Jan 31, 2024 10:13 AM Reporting Lab: [facility] [phone] Performing Lab: [facility] [address] CHOLESTEROL 125 mg/dL <199 TRIGLYCERIDE 95 mg/dL <149 .HDL 37 mg/dL L >40 LDL CALCULATION 69 mg/dL <99 VLDL CALCULATION 19 mg/dL <29 NON HDL CHOLESTEROL 88 mg/dL <129 Jan 31, 2024 07:29 AM [facility] CBC Specimen Type: BLOOD No comment entered. Ordering Provider: BASHIR CARVAJAL Report Released Date/Time: Jan 30, 2024 01:03 PM Reporting Lab: [facility] [address] Performing Lab: [facility] [address] WBC 7.3 4.0-11.0 RBC 3.83 L 4.60-6.20 HGB 11.4 g/dL L 13.5-17.9 HCT 35.1 L 41.0-54.0 MCV 91.6 fL 80.0-100.0 MCH 29.8 pg 27.0-33.0 MCHC 32.5 g/dL 32.0-37.5 PLT 193 150-400 MPV 10.7 fL 9.1-13.0 RDW 12.2 11.5-14.5 Jan 31, 2024 07:29 AM [facility] BASIC METABOLIC PANEL+MG Specimen Type: PLASMA No comment entered. Ordering Provider: BASHIR CARVAJAL Report Released Date/Time: Jan 30, 2024 01:03 PM Reporting Lab: [facility] [phone] Performing Lab: [facility] [address] CREATININE 1.3 mg/dL H 0.7-1.2 UREA NITROGEN 24 mg/dL 8-26 GLUCOSE 91 mg/dL 70-100 SODIUM 138 mmol/L 136-145 POTASSIUM 4.1 mmol/L 3.5-5.1 CHLORIDE 108 mmol/L H 98-107 CO2 23 mmol/L 22-29 CALCIUM 8.8 mg/dL 8.4-10.2 MAGNESIUM 2.1 mg/dL 1.6-2.6 ANION GAP 7 mmol/L 5-15 .CREAT EGFR(CKD-EPI) 54 L >60 Jan 30, 2024 10:37 AM [facility] POC ACT Specimen Type: BLOOD No comment entered. Ordering Provider: RODO CHRISTY Report Released Date/Time: Jan 30, 2024 10:43 AM Reporting Lab: [facility] [phone] Performing Lab: [facility] [address] POC ACT 241 s H 84-139 Jan 30, 2024 10:08 AM [facility] POC ACT Specimen Type: BLOOD No comment entered. Ordering Provider: RODO CHRISTY Report Released Date/Time: Jan 30, 2024 10:14 AM Reporting Lab: [facility] [address] Performing Lab: [facility] [address] POC ACT 289 s H 84-139 Jan 30, 2024 09:34 AM [facility] POC ACT Specimen Type: BLOOD No comment entered. Ordering Provider: RODO CHRISTY Report Released Date/Time: Jan 30, 2024 10:14 AM Reporting Lab: [facility] [address] Performing Lab: [facility] [address] POC ACT 294 s H 84-139 Jan 30, 2024 05:37 AM [facility] HEPARIN APTT Specimen Type: PLASMA No comment entered. Ordering Provider: BASHIR CARVAJAL Report Released Date/Time: Jan 29, 2024 09:43 PM Reporting Lab: [facility] [phone] Performing Lab: [facility] [address] HEPARIN APTT 83.2 s 48.0-92.0 Jan 30, 2024 05:37 AM [facility] BASIC METABOLIC PANEL+MG Specimen Type: PLASMA No comment entered. Ordering Provider: BASHIR CARVAJAL Report Released Date/Time: Jan 29, 2024 12:19 PM Reporting Lab: [facility] [phone] Performing Lab: [facility] [address] CREATININE 1.4 mg/dL H 0.7-1.2 UREA NITROGEN 27 mg/dL H 8-26 GLUCOSE 95 mg/dL 70-100 SODIUM 139 mmol/L 136-145 POTASSIUM 4.2 mmol/L 3.5-5.1 CHLORIDE 109 mmol/L H 98-107 CO2 24 mmol/L 22-29 CALCIUM 9.0 mg/dL 8.4-10.2 MAGNESIUM 2.1 mg/dL 1.6-2.6 ANION GAP 6 mmol/L 5-15 .CREAT EGFR(CKD-EPI) 49 L >60 Jan 29, 2024 09:02 PM [facility] HEPARIN APTT Specimen Type: PLASMA Comment: Critical Value Reported To: Tomasa Delcid PharmD 01/29/24 @[address] [place] [address]. Critical value report confirmed. Ordering Provider: MERY SAMUEL Report Released Date/Time: Jan 29, 2024 03:00 PM Reporting Lab: [facility] [address] Performing Lab: [facility] [address] HEPARIN APTT 214.6 s HH 48.0-92.0 Jan 29, 2024 06:24 AM [facility] BASIC METABOLIC PANEL+MG Specimen Type: PLASMA No comment entered. Ordering Provider: BASHIR CARVAJAL Report Released Date/Time: Jan 28, 2024 04:36 PM Reporting Lab: [facility] [phone] Performing Lab: [facility] [address] CREATININE 1.6 mg/dL H 0.7-1.2 UREA NITROGEN 27 mg/dL H 8-26 GLUCOSE 92 mg/dL 70-100 SODIUM 140 mmol/L 136-145 POTASSIUM 4.2 mmol/L 3.5-5.1 CHLORIDE 110 mmol/L H 98-107 CO2 25 mmol/L 22-29 CALCIUM 8.8 mg/dL 8.4-10.2 MAGNESIUM 2.1 mg/dL 1.6-2.6 ANION GAP 5 mmol/L 5-15 .CREAT EGFR(CKD-EPI) 42 L >60 Jan 28, 2024 05:54 AM [facility] EXTRA PURPLE TUBE Specimen Type: BLOOD No comment entered. Ordering Provider: RODO CHRISTY Report Released Date/Time: Jan 28, 2024 05:54 AM Reporting Lab: [facility] [address] Performing Lab: [facility] [address] EXTRA PURPLE TUBE RECEIVED Jan 28, 2024 05:53 AM [facility] ALBUMIN Specimen Type: PLASMA No comment entered. Ordering Provider: BASHIR CARVAJAL Report Released Date/Time: Jan 27, 2024 04:49 PM Reporting Lab: [facility] [address] Performing Lab: [facility] [address] ALBUMIN 3.5 g/dL 3.5-5.2 Jan 28, 2024 05:53 AM [facility] BASIC METABOLIC PANEL+MG Specimen Type: PLASMA No comment entered. Ordering Provider: BASHIR CARVAJAL Report Released Date/Time: Jan 27, 2024 05:44 PM Reporting Lab: [facility] [address] Performing Lab: [facility] [address] CREATININE 1.4 mg/dL H 0.7-1.2 UREA NITROGEN 28 mg/dL H 8-26 GLUCOSE 92 mg/dL 70-100 SODIUM 140 mmol/L 136-145 POTASSIUM 4.4 mmol/L 3.5-5.1 CHLORIDE 109 mmol/L H 98-107 CO2 23 mmol/L 22-29 CALCIUM 8.8 mg/dL 8.4-10.2 MAGNESIUM 2.1 mg/dL 1.6-2.6 ANION GAP 8 mmol/L 5-15 .CREAT EGFR(CKD-EPI) 49 L >60 Jan 28, 2024 05:52 AM [facility] TROPONIN I, HS Specimen Type: PLASMA Comment: Critical value previously reported on patient. Ordering Provider: BRANDON MEJIA Report Released Date/Time: Jan 27, 2024 09:15 PM Reporting Lab: [facility] [address] Performing Lab: [facility] [address] TROPONIN I, HS 128 HH <35 Jan 28, 2024 12:35 AM [facility] COVID-19 DIAGNOSTIC PANEL (CEPHEID) Specimen Type: NASOPHARYNGEAL Comment: Cepheid GeneXpert (618) Ordering Provider: LUCAS HAWTHORNE Report Released Date/Time: Jan 27, 2024 04:28 PM Reporting Lab: [facility] [address] Performing Lab: [facility] [address] COVID-19 (CEPHEID) Not Detected Not Detected Jan 28, 2024 12:35 AM [facility] HEPARIN APTT Specimen Type: PLASMA Comment: Critical Value Reported To: Deena Oliveros PharmD 01/28/24 @0110 HV. Critical value report confirmed. Ordering Provider: NATALIE ORDOÑEZ Report Released Date/Time: Jan 27, 2024 07:18 PM Reporting Lab: [facility] [address] Performing Lab: [facility] [address] HEPARIN APTT 133.9 s HH 48.0-92.0 Jan 28, 2024 12:35 AM [facility] TROPONIN I, HS Specimen Type: PLASMA Comment: Critical value previously reported on patient. Ordering Provider: BRANDON MEJIA Report Released Date/Time: Jan 27, 2024 09:15 PM Reporting Lab: [facility] [address] Performing Lab: [facility] [address] TROPONIN I, HS 158 HH <35 Jan 27, 2024 09:22 PM [facility] TROPONIN I, HS Specimen Type: PLASMA Comment: Critical value previously reported on patient. Ordering Provider: BASHIR CARVAJAL Report Released Date/Time: Jan 27, 2024 08:38 PM Reporting Lab: [facility] [address] Performing Lab: [facility] [address] TROPONIN I, HS 146 HH <35 Jan 27, 2024 06:52 PM [facility] TROPONIN I, HS Specimen Type: PLASMA Comment: Critical Value Reported To: Brandon Mejia MD 01/27/24 @1950 KL. Critical value report confirmed. Ordering Provider: BASHIR CARVAJAL Report Released Date/Time: Jan 27, 2024 04:54 PM Reporting Lab: [facility] [address] Performing Lab: [facility] [address] TROPONIN I, HS 136 HH <35 Jan 27, 2024 06:52 PM [facility] CBC Specimen Type: BLOOD No comment entered. Ordering Provider: BASHIR CARVAJAL Report Released Date/Time: Jan 27, 2024 04:54 PM Reporting Lab: [facility] [address] Performing Lab: [facility] [address] WBC 6.0 4.0-11.0 RBC 3.91 L 4.60-6.20 HGB 12.1 g/dL L 13.5-17.9 HCT 36.5 L 41.0-54.0 MCV 93.4 fL 80.0-100.0 MCH 30.9 pg 27.0-33.0 MCHC 33.2 g/dL 32.0-37.5 PLT 177 150-400 MPV 10.7 fL 9.1-13.0 RDW 12.4 11.5-14.5 Jan 27, 2024 06:52 PM [facility] BASIC METABOLIC PANEL+MG Specimen Type: PLASMA No comment entered. Ordering Provider: BASHIR CARVAJAL Report Released Date/Time: Jan 27, 2024 04:54 PM Reporting Lab: [facility] [address] Performing Lab: [facility] [address] CREATININE 1.3 mg/dL H 0.7-1.2 UREA NITROGEN [...] and tobacco- related health factors from the [place] facility where the Encounter took place. Current Smoking Status This section includes the most current smoking, or tobacco-related health factor, from the [place] facility where the Encounter took place. Date/Time Current Smoking Status Comment Facil ity Dec 14, 2023 11:30 AM VA-TOBACCO FORMER USER [facility] Tobacco Use History This section includes a history of the smoking, or tobacco-related health factors, that were collected on or before the date of the Encounter. The data comes from the [place] facility where the Encounter took place. Date/Time Smoking Status/Tobacco Use Comment F acility Dec 14, 2023 11:30 AM VA-TOBACCO QUIT 15 YRS OR MORE [facility] Oct 13, 2022 01:30 PM VA-TOBACCO FORMER USER [facility] Oct 13, 2022 01:30 PM VA-TOBACCO QUIT 15 YRS OR MORE [facility] Jul 27, 2021 10:00 AM VA-TOBACCO FORMER USER [facility] Jul 27, 2021 10:00 AM VA-TOBACCO QUIT 15 YRS OR MORE [facility] Jan 02, 2020 09:00 AM VA-TOBACCO FORMER USER [facility] Jan 02, 2020 09:00 AM VA-TOBACCO QUIT 15 YRS OR MORE [facility] Jul 21, 2018 03:00 PM VA-TOBACCO FORMER USER [facility] Jul 21, 2018 03:00 PM VA-TOBACCO QUIT 15 YRS OR MORE [facility] Dec 24, 2016 08:01 AM FORMER TOBACCO USER 7Y OR GREATE R [facility] Dec 23, 2015 08:23 AM FORMER TOBACCO USE >1Y <7Y [facility] Dec 26, 2014 10:32 AM FORMER TOBACCO USER 7Y OR GREATE R [facility] August 13, 2013 08:22 AM LIFETIME NON-TOBACCO USER [facility] August 30, 2006 08:38 AM FORMER TOBACCO USER 7Y OR GREATE R [facility] Advance Directives: All historical and current Section Date Range: From patient's date of to the date document was created. This section includes ALL of a patient's completed or amended [place] Advance and Rescinded Directives. The entries below indicate that a directive exists for the patient, but an actual copy is not included with this document. The data comes from all [facility]. Date Advance Directives Provider Source August 30, 2006 ADVANCE DIRECTIVE ARGENIS CRAMER [facility] Pathology Reports: +/- 30 days of the [...] the Encounter. The data comes from all [place] treatment facilities. Date/Time Pathology Report Provider Source Jan 06, 2024 11:16 AM [facility] SURGICAL PATHOL OGY REPORT: LOCAL TITLE: LR SURGICAL PATHOLOGY REPORT STANDARD TITLE: PATHOLOGY REPORT DATE OF NOTE: JAN 06, 2024@11:16:39 ENTRY DATE: JAN 06, 2024@11:16:39 AUTHOR: JOSE REESE COSIGNER: URGENCY: STATUS: COMPLETED $APHDR Reporting Lab: [facility] [CLIA# [id number]] [place] [address] - - - - - - - [...] - PATHOLOGY REPORT Accession No. [id number] - - - - - - - [...] - PATHOLOGY REPORT Accession No. [id number] - - - - - - - [...] 0.1 cm. The specimen is inked. CE. (D)[facility] MICROSCOPIC DESCRIPTION: Microscopic examination performed. [...] Performing Laboratory: Surgical Pathology Report Performed By: [facility] [CLIA# [id number]] [place] [address] $FTR - - - - - - [...] - - GERI COUGHLIN STANDARD FORM 515 ID:[id number] SEX:M :1935 AGE: 88 LOC:[id number] PCP: Sariah Gomes MD /shelly/ JOSE REESE M.D. STAFF PATHOLOGIST Signed: 01/06/2024 11:16 JOSE REESE [facility]
--- OUTSIDE RECORDS SUMMARY | 2024-03-10 19:37 | XMS_ITS ---
[place] DAILY HOSPITALIZATION DATA 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 This section includes future appointments and future orders which are active, pending or scheduled. Future Appointments This section includes appointments that were scheduled to occur 6 months from the date of the Encounter, up to a maximum of 20 appointments. The data comes from all [place] [facility]. Appointment Date/Time Appointment Type Appointme nt Facility Name Feb 17, 2024 01:00 PM AMBULATORY - NONE [place] [facility] Feb 21, 2024 10:00 AM AMBULATORY - MEDICINE [facility] Feb 24, 2024 12:15 PM AMBULATORY - MEDICINE [facility] Feb 24, 2024 01:00 PM AMBULATORY - MEDICINE [facility] Mar 02, 2024 01:00 PM AMBULATORY - REHAB MEDICIN E [facility] Apr 26, 2024 10:00 AM AMBULATORY - [...] The data comes from all [place] [facility]. Test Date/Time Test Type Test Details Facility Name Jan 18, 2024 04:23 PM Consult Order COMMUNITY CARE-ECHOCARDIOGRAPHY Cons Biochemistry Technician's Choice [facility] Jan 19, 2024 12:10 PM Consult Order COMMUNITY CARE-DERMATOLOGY Cons Biochemistry Technician's [facility] Jan 28, 2024 02:00 AM Laboratory - Chemi stry Order TROPONIN I, HS PLASMA STAT [facility] Mar 01, 2024 03:28 PM Consult Order IFC TRAVEL ING [facility] Cons Biochemistry Technician's Choice [facility] Lab Results: +/- 30 days of [...] Range Comment Jan 31, 2024 10:50 AM [facility] HEMOGLOBIN A1C Specimen Type: BLOOD Comment: Values [...] Jan 31, 2024 10:13 AM Reporting Lab: [facility] [phone] Performing Lab: [facility] [address] HEMOGLOBIN A1C 5.4 4.0-6.0 Jan 31, 2024 10:50 AM [facility] LIPID PANEL,FASTING Specimen Type: PLASMA No comment entered. Ordering Provider: JULIET SMART Report Released Date/Time: Jan 31, 2024 10:13 AM Reporting Lab: [facility] [address] Performing Lab: [facility] [address] CHOLESTEROL 125 mg/dL <199 TRIGLYCERIDE 95 mg/dL <149 .HDL 37 mg/dL L >40 LDL CALCULATION 69 mg/dL <99 VLDL CALCULATION 19 mg/dL <29 NON HDL CHOLESTEROL 88 mg/dL <129 Jan 31, 2024 07:29 AM [facility] CBC Specimen Type: BLOOD No comment entered. Ordering Provider: BASHIR CARVAJAL Report Released Date/Time: Jan 30, 2024 01:03 PM Reporting Lab: [facility] [address] Performing Lab: [facility] [address] WBC 7.3 4.0-11.0 RBC 3.83 L 4.60-6.20 HGB 11.4 g/dL L 13.5-17.9 HCT 35.1 L 41.0-54.0 MCV 91.6 fL 80.0-100.0 MCH 29.8 pg 27.0-33.0 MCHC 32.5 g/dL 32.0-37.5 PLT 193 150-400 MPV 10.7 fL 9.1-13.0 RDW 12.2 11.5-14.5 Jan 31, 2024 07:29 AM [facility] BASIC METABOLIC PANEL+MG Specimen Type: PLASMA No comment entered. Ordering Provider: BASHIR CARVAJAL Report Released Date/Time: Jan 30, 2024 01:03 PM Reporting Lab: [facility] [phone] Performing Lab: [facility] [address] CREATININE 1.3 mg/dL H 0.7-1.2 UREA NITROGEN 24 mg/dL 8-26 GLUCOSE 91 mg/dL 70-100 SODIUM 138 mmol/L 136-145 POTASSIUM 4.1 mmol/L 3.5-5.1 CHLORIDE 108 mmol/L H 98-107 CO2 23 mmol/L 22-29 CALCIUM 8.8 mg/dL 8.4-10.2 MAGNESIUM 2.1 mg/dL 1.6-2.6 ANION GAP 7 mmol/L 5-15 .CREAT EGFR(CKD-EPI) 54 L >60 Jan 30, 2024 10:37 AM [facility] POC ACT Specimen Type: BLOOD No comment entered. Ordering Provider: RODO CHRISTY Report Released Date/Time: Jan 30, 2024 10:43 AM Reporting Lab: [facility] [address] Performing Lab: [facility] [address] POC ACT 241 s H 84-139 Jan 30, 2024 10:08 AM [facility] POC ACT Specimen Type: BLOOD No comment entered. Ordering Provider: RODO CHRISTY Report Released Date/Time: Jan 30, 2024 10:14 AM Reporting Lab: [facility] [phone] Performing Lab: [facility] [address] POC ACT 289 s H 84-139 Jan 30, 2024 09:34 AM [facility] POC ACT Specimen Type: BLOOD No comment entered. Ordering Provider: RODO CHRISTY Report Released Date/Time: Jan 30, 2024 10:14 AM Reporting Lab: [facility] [phone] Performing Lab: [facility] [address] POC ACT 294 s H 84-139 Jan 30, 2024 05:37 AM [facility] HEPARIN APTT Specimen Type: PLASMA No comment entered. Ordering Provider: BASHIR CARVAJAL Report Released Date/Time: Jan 29, 2024 09:43 PM Reporting Lab: [facility] [address] Performing Lab: [facility] [address] HEPARIN APTT 83.2 s 48.0-92.0 Jan 30, 2024 05:37 AM [facility] BASIC METABOLIC PANEL+MG Specimen Type: PLASMA No comment entered. Ordering Provider: BASHIR CARVAJAL Report Released Date/Time: Jan 29, 2024 12:19 PM Reporting Lab: [facility] [address] Performing Lab: [facility] [address] CREATININE 1.4 mg/dL H 0.7-1.2 UREA NITROGEN 27 mg/dL H 8-26 GLUCOSE 95 mg/dL 70-100 SODIUM 139 mmol/L 136-145 POTASSIUM 4.2 mmol/L 3.5-5.1 CHLORIDE 109 mmol/L H 98-107 CO2 24 mmol/L 22-29 CALCIUM 9.0 mg/dL 8.4-10.2 MAGNESIUM 2.1 mg/dL 1.6-2.6 ANION GAP 6 mmol/L 5-15 .CREAT EGFR(CKD-EPI) 49 L >60 Jan 29, 2024 09:02 PM [facility] HEPARIN APTT Specimen Type: PLASMA Comment: Critical Value Reported To: Tomasa Delcid PharmD 01/29/24 @[address] [place] [address]. Critical value report confirmed. Ordering Provider: MERY SAMUEL Report Released Date/Time: Jan 29, 2024 03:00 PM Reporting Lab: [facility] [address] Performing Lab: [facility] [address] HEPARIN APTT 214.6 s HH 48.0-92.0 Jan 29, 2024 06:24 AM [facility] BASIC METABOLIC PANEL+MG Specimen Type: PLASMA No comment entered. Ordering Provider: BASHIR CARVAJAL Report Released Date/Time: Jan 28, 2024 04:36 PM Reporting Lab: [facility] [address] Performing Lab: [facility] [address] CREATININE 1.6 mg/dL H 0.7-1.2 UREA NITROGEN 27 mg/dL H 8-26 GLUCOSE 92 mg/dL 70-100 SODIUM 140 mmol/L 136-145 POTASSIUM 4.2 mmol/L 3.5-5.1 CHLORIDE 110 mmol/L H 98-107 CO2 25 mmol/L 22-29 CALCIUM 8.8 mg/dL 8.4-10.2 MAGNESIUM 2.1 mg/dL 1.6-2.6 ANION GAP 5 mmol/L 5-15 .CREAT EGFR(CKD-EPI) 42 L >60 Jan 28, 2024 05:54 AM [facility] EXTRA PURPLE TUBE Specimen Type: BLOOD No comment entered. Ordering Provider: RODO CHRISTY Report Released Date/Time: Jan 28, 2024 05:54 AM Reporting Lab: [facility] [address] Performing Lab: [facility] [address] EXTRA PURPLE TUBE RECEIVED Jan 28, 2024 05:53 AM [facility] ALBUMIN Specimen Type: PLASMA No comment entered. Ordering Provider: BASHIR CARVAJAL Report Released Date/Time: Jan 27, 2024 04:49 PM Reporting Lab: [facility] [address] Performing Lab: [facility] [address] ALBUMIN 3.5 g/dL 3.5-5.2 Jan 28, 2024 05:53 AM [facility] BASIC METABOLIC PANEL+MG Specimen Type: PLASMA No comment entered. Ordering Provider: BASHIR CARVAJAL Report Released Date/Time: Jan 27, 2024 05:44 PM Reporting Lab: [facility] [address] Performing Lab: [facility] [address] CREATININE 1.4 mg/dL H 0.7-1.2 UREA NITROGEN 28 mg/dL H 8-26 GLUCOSE 92 mg/dL 70-100 SODIUM 140 mmol/L 136-145 POTASSIUM 4.4 mmol/L 3.5-5.1 CHLORIDE 109 mmol/L H 98-107 CO2 23 mmol/L 22-29 CALCIUM 8.8 mg/dL 8.4-10.2 MAGNESIUM 2.1 mg/dL 1.6-2.6 ANION GAP 8 mmol/L 5-15 .CREAT EGFR(CKD-EPI) 49 L >60 Jan 28, 2024 05:52 AM [facility] TROPONIN I, HS Specimen Type: PLASMA Comment: Critical value previously reported on patient. Ordering Provider: BRANDON MEJIA Report Released Date/Time: Jan 27, 2024 09:15 PM Reporting Lab: [facility] [address] Performing Lab: [facility] [address] TROPONIN I, HS 128 HH <35 Jan 28, 2024 12:35 AM [facility] COVID-19 DIAGNOSTIC PANEL (CEPHEID) Specimen Type: NASOPHARYNGEAL Comment: Cepheid GeneXpert (618) Ordering Provider: LUCAS HAWTHORNE Report Released Date/Time: Jan 27, 2024 04:28 PM Reporting Lab: [facility] [address] Performing Lab: [facility] [address] COVID-19 (CEPHEID) Not Detected Not Detected Jan 28, 2024 12:35 AM [facility] HEPARIN APTT Specimen Type: PLASMA Comment: Critical Value Reported To: Deena Oliveros PharmD 01/28/24 @0110 HV. Critical value report confirmed. Ordering Provider: NATALIE ORDOÑEZ Report Released Date/Time: Jan 27, 2024 07:18 PM Reporting Lab: [facility] [address] Performing Lab: [facility] [address] HEPARIN APTT 133.9 s HH 48.0-92.0 Jan 28, 2024 12:35 AM [facility] TROPONIN I, HS Specimen Type: PLASMA Comment: Critical value previously reported on patient. Ordering Provider: BRANDON MEJIA Report Released Date/Time: Jan 27, 2024 09:15 PM Reporting Lab: [facility] [address] Performing Lab: [facility] [address] TROPONIN I, HS 158 HH <35 Jan 27, 2024 09:22 PM [facility] TROPONIN I, HS Specimen Type: PLASMA Comment: Critical value previously reported on patient. Ordering Provider: BASHIR CARVAJAL Report Released Date/Time: Jan 27, 2024 08:38 PM Reporting Lab: [facility] [address] Performing Lab: [facility] [address] TROPONIN I, HS 146 HH <35 Jan 27, 2024 06:52 PM [facility] TROPONIN I, HS Specimen Type: PLASMA Comment: Critical Value Reported To: Brandon Mejia MD 01/27/24 @1950 KL. Critical value report confirmed. Ordering Provider: BASHIR CARVAJAL Report Released Date/Time: Jan 27, 2024 04:54 PM Reporting Lab: [facility] [address] Performing Lab: [facility] [address] TROPONIN I, HS 136 HH <35 Jan 27, 2024 06:52 PM [facility] BASIC METABOLIC PANEL+MG Specimen Type: PLASMA No comment entered. Ordering Provider: BASHIR CARVAJAL Report Released Date/Time: Jan 27, 2024 04:54 PM Reporting Lab: [facility] [address] Performing Lab: [facility] [address] CREATININE 1.3 mg/dL H 0.7-1.2 UREA NITROGEN 30 mg/dL H 8-26 GLUCOSE 141 mg/dL H 70-100 SODIUM 142 mmol/L 136-145 POTASSIUM 3.4 mmol/L L 3.5-5.1 CHLORIDE 106 mmol/L 98-107 CO2 27 mmol/L 22-29 CALCIUM 8.8 mg/dL 8.4-10.2 MAGNESIUM 2.2 mg/dL 1.6-2.6 ANION GAP 9 mmol/L 5-15 .CREAT EGFR(CKD-EPI) 54 L >60 Jan 27, 2024 06:52 PM [facility] CBC Specimen Type: BLOOD No comment entered. Ordering Provider: BASHIR CARVAJAL Report Released Date/Time: Jan 27, 2024 04:54 PM Reporting Lab: [facility] [address] Performing Lab: [facility] [address] WBC 6.0 4.0-11.0 RBC 3.91 L 4.60-6.20 [...] 14, 2023 11:30 AM VA-TOBACCO FORMER USER [facility] Tobacco Use History This section includes a history of the smoking, or tobacco-related health factors, that were collected on or before the date of the Encounter. The data comes from the [place] facility where the Encounter took place. Date/Time Smoking Status/Tobacco Use Comment F acility Dec 14, 2023 11:30 AM VA-TOBACCO QUIT 15 YRS OR MORE [facility] Oct 13, 2022 01:30 PM VA-TOBACCO FORMER USER [facility] Oct 13, 2022 01:30 PM VA-TOBACCO QUIT 15 YRS OR MORE [facility] Jul 27, 2021 10:00 AM VA-TOBACCO FORMER USER [facility] Jul 27, 2021 10:00 AM VA-TOBACCO QUIT 15 YRS OR MORE [facility] Jan 02, 2020 09:00 AM VA-TOBACCO FORMER USER [facility] Jan 02, 2020 09:00 AM VA-TOBACCO QUIT 15 YRS OR MORE [facility] Jul 21, 2018 03:00 PM VA-TOBACCO FORMER USER [facility] Jul 21, 2018 03:00 PM VA-TOBACCO QUIT 15 YRS OR MORE [facility] Dec 24, 2016 08:01 AM FORMER TOBACCO USER 7Y OR GREATE R [facility] Dec 23, 2015 08:23 AM FORMER TOBACCO USE >1Y <7Y [facility] Dec 26, 2014 10:32 AM FORMER TOBACCO USER 7Y OR GREATE R [facility] August 13, 2013 08:22 AM LIFETIME NON-TOBACCO USER [facility] August 30, 2006 08:38 AM FORMER TOBACCO USER 7Y OR GREATE R [facility] Advance Directives: All historical and current Section [...] from all [facility]. Date Advance Directives Provider Source August [...] COSIGNER: URGENCY: STATUS: COMPLETED $APHDR Reporting Lab: [facility] [CLIA# [id number]] [place] [address] - - - - - - - [...] - PATHOLOGY REPORT Accession No. [id number] - - - - - - - [...] - PATHOLOGY REPORT Accession No. [id number] - - - - - - - [...] Performing Laboratory: Surgical Pathology Report Performed By: [facility] [CLIA# [id number]] [place] [address] $FTR - - - - - - [...] - - GERI COUGHLIN STANDARD FORM 515 ID:[id number] SEX:M :1935 AGE: 88 LOC:[id number] PCP: Sariah Gomes MD /shelly/ JOSE REESE M.D. STAFF PATHOLOGIST Signed: 01/06/2024 11:16 JOSE REESE [facility]
--- OUTSIDE RECORDS SUMMARY | 2024-03-10 19:37 | XMS_ITS ---
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 This section includes future appointments and future orders which are active, pending or scheduled. Future Appointments This section includes appointments that were scheduled to occur 6 months from the date of the Encounter, up to a maximum of 20 appointments. The data comes from all [place] [facility]. Appointment Date/Time Appointment Type Appointme nt Facility Name Feb 17, 2024 01:00 PM AMBULATORY - NONE [place] [facility] Feb 21, 2024 10:00 AM AMBULATORY - MEDICINE [facility] Feb 24, 2024 12:15 PM AMBULATORY - MEDICINE [facility] Feb 24, 2024 01:00 PM AMBULATORY - MEDICINE [facility] Mar 02, 2024 01:00 PM AMBULATORY - REHAB MEDICIN E [facility] Apr 26, 2024 10:00 AM AMBULATORY - MEDICINE [facility] Active, Pending, and Scheduled Orders This section includes a listing of several types of active, pending, and scheduled orders, including clinic medications orders, diagnostic test orders, procedure orders and consult orders; where the start date of the order is 45 days before the date of the Encounter or 45 days after the date of theEncounter. The data comes from all [place] treatment [facility]. Test Date/Time Test Type Test Details Facility Name Jan 18, 2024 04:23 PM Consult Order COMMUNITY CARE-ECHOCARDIOGRAPHY Cons [employer] Operator's Choice [facility] Jan 19, 2024 12:10 PM Consult Order COMMUNITY CARE-DERMATOLOGY Cons [employer] [facility] Jan 28, 2024 02:00 AM Laboratory - Chemi stry Order TROPONIN I, HS PLASMA STAT [facility] Mar 01, 2024 03:28 PM Consult Order IFC TRAVEL ING [facility] Cons [employer] Operator's Choice [facility] Lab Results: +/- 30 days of [...] 31, 2024 10:13 AM Reporting Lab: [facility] [phone] Performing Lab: [facility] [address] HEMOGLOBIN A1C 5.4 4.0-6.0 Jan 31, 2024 10:50 AM [facility] LIPID PANEL,FASTING Specimen Type: PLASMA No comment entered. Ordering Provider: JULIET SMART Report Released Date/Time: Jan 31, 2024 10:13 AM Reporting Lab: [facility] [address] Performing Lab: [facility] [address] CHOLESTEROL 125 mg/dL <199 TRIGLYCERIDE 95 mg/dL <149 .HDL 37 mg/dL L >40 LDL CALCULATION 69 mg/dL <99 VLDL CALCULATION 19 mg/dL <29 NON HDL CHOLESTEROL 88 mg/dL <129 Jan 31, 2024 07:29 AM [facility] CBC Specimen Type: BLOOD No comment entered. Ordering Provider: BASHIR CARVAJAL Report Released Date/Time: Jan 30, 2024 01:03 PM Reporting Lab: [facility] [address] Performing Lab: [facility] [address] WBC 7.3 4.0-11.0 RBC 3.83 L 4.60-6.20 [...] 30, 2024 01:03 PM Reporting Lab: [facility] [address] Performing Lab: [facility] [address] CREATININE 1.3 mg/dL H 0.7-1.2 UREA NITROGEN [...] 30, 2024 10:43 AM Reporting Lab: [facility] [address] Performing Lab: [facility] [address] POC ACT 241 s H 84-139 Jan 30, 2024 10:08 AM [facility] POC ACT Specimen Type: BLOOD No comment entered. Ordering Provider: RODO CHRISTY Report Released Date/Time: Jan 30, 2024 10:14 AM Reporting Lab: [facility] [address] Performing Lab: [facility] [address] POC ACT 289 s H 84-139 Jan 30, 2024 09:34 AM [facility] POC ACT Specimen Type: BLOOD No comment entered. Ordering Provider: RODO CHRISTY Report Released Date/Time: Jan 30, 2024 10:14 AM Reporting Lab: [facility] [address] Performing Lab: [facility] [address] POC ACT 294 s H 84-139 Jan 30, 2024 05:37 AM [facility] HEPARIN APTT Specimen Type: PLASMA No comment entered. Ordering Provider: BASHIR CARVAJAL Report Released Date/Time: Jan 29, 2024 09:43 PM Reporting Lab: [facility] [address] Performing Lab: [facility] [address] HEPARIN APTT 83.2 s 48.0-92.0 Jan 30, 2024 05:37 AM [facility] BASIC METABOLIC PANEL+MG Specimen Type: PLASMA No comment entered. Ordering Provider: BASHIR CARVAJAL Report Released Date/Time: Jan 29, 2024 12:19 PM Reporting Lab: [facility] [address] Performing Lab: [facility] [address] CREATININE 1.4 mg/dL H 0.7-1.2 UREA NITROGEN [...] Value Reported To: Tomasa Delcid PharmD 01/29/24 @[address] [place] [address]. Critical value report confirmed. Ordering Provider: MERY SAMUEL Report Released Date/Time: Jan 29, 2024 03:00 PM Reporting Lab: [facility] [address] Performing Lab: [facility] [address] HEPARIN APTT 214.6 s HH 48.0-92.0 Jan 29, 2024 06:24 AM [facility] BASIC METABOLIC PANEL+MG Specimen Type: PLASMA No comment entered. Ordering Provider: BASHIR CARVAJAL Report Released Date/Time: Jan 28, 2024 04:36 PM Reporting Lab: [facility] [address] Performing Lab: [facility] [address] CREATININE 1.6 mg/dL H 0.7-1.2 UREA NITROGEN [...] 28, 2024 05:54 AM Reporting Lab: [facility] [address] Performing Lab: [facility] [address] EXTRA PURPLE TUBE RECEIVED Jan 28, 2024 05:53 AM [facility] ALBUMIN Specimen Type: PLASMA No comment entered. Ordering Provider: BASHIR CARVAJAL Report Released Date/Time: Jan 27, 2024 04:49 PM Reporting Lab: [facility] [address] Performing Lab: [facility] [address] ALBUMIN 3.5 g/dL 3.5-5.2 Jan 28, 2024 05:53 AM [facility] BASIC METABOLIC PANEL+MG Specimen Type: PLASMA No comment entered. Ordering Provider: BASHIR CARVAJAL Report Released Date/Time: Jan 27, 2024 05:44 PM Reporting Lab: [facility] [address] Performing Lab: [facility] [address] CREATININE 1.4 mg/dL H 0.7-1.2 UREA NITROGEN [...] 27, 2024 09:15 PM Reporting Lab: [facility] [address] Performing Lab: [facility] [address] TROPONIN I, HS 128 HH <35 Jan 28, 2024 12:35 AM [facility] COVID-19 DIAGNOSTIC PANEL (CEPHEID) Specimen Type: NASOPHARYNGEAL Comment: Cepheid GeneXpert (618) Ordering Provider: LUCAS HAWTHORNE Report Released Date/Time: Jan 27, 2024 04:28 PM Reporting Lab: [facility] [address] Performing Lab: [facility] [address] COVID-19 (CEPHEID) Not Detected Not Detected Jan 28, 2024 12:35 AM [facility] HEPARIN APTT Specimen Type: PLASMA Comment: Critical Value Reported To: Deena Oliveros PharmD 01/28/24 @0110 HV. Critical value report confirmed. Ordering Provider: NATALIE ORDOÑEZ Report Released Date/Time: Jan 27, 2024 07:18 PM Reporting Lab: [facility] [address] Performing Lab: [facility] [address] HEPARIN APTT 133.9 s HH 48.0-92.0 Jan 28, 2024 12:35 AM [facility] TROPONIN I, HS Specimen Type: PLASMA Comment: Critical value previously reported on patient. Ordering Provider: BRANDON MEJIA Report Released Date/Time: Jan 27, 2024 09:15 PM Reporting Lab: [facility] [address] Performing Lab: [facility] [address] TROPONIN I, HS 158 HH <35 Jan 27, 2024 09:22 PM [facility] TROPONIN I, HS Specimen Type: PLASMA Comment: Critical value previously reported on patient. Ordering Provider: BASHIR CARVAJAL Report Released Date/Time: Jan 27, 2024 08:38 PM Reporting Lab: [facility] [address] Performing Lab: [facility] [address] TROPONIN I, HS 146 HH <35 Jan 27, 2024 06:52 PM [facility] TROPONIN I, HS Specimen Type: PLASMA Comment: Critical Value Reported To: Brandon Mejia MD 01/27/24 @1950 KL. Critical value report confirmed. Ordering Provider: BASHIR CARVAJAL Report Released Date/Time: Jan 27, 2024 04:54 PM Reporting Lab: [facility] [address] Performing Lab: [facility] [address] TROPONIN I, HS 136 HH <35 Jan 27, 2024 06:52 PM [facility] CBC Specimen Type: BLOOD No comment entered. Ordering Provider: BASHIR CARVAJAL Report Released Date/Time: Jan 27, 2024 04:54 PM Reporting Lab: [facility] [address] Performing Lab: [facility] [address] WBC 6.0 4.0-11.0 RBC 3.91 L 4.60-6.20 [...] 27, 2024 04:54 PM Reporting Lab: [facility] [address] Performing Lab: [facility] [address] CREATININE 1.3 mg/dL H 0.7-1.2 UREA NITROGEN [...] Jan 28, 2024 03:42 AM 0 [facility] Jan 28, 2024 03:25 AM 7 [facility] Social History: Smoking Status (Most current) [...] 14, 2023 11:30 AM VA-TOBACCO FORMER USER [facility] Tobacco Use History This section [...] 30, 2006 ADVANCE DIRECTIVE ARGENIS CRAMERCRISTINOClaus Villarreal [facility] Pathology Reports: +/- [...] COMPLETED $APHDR Reporting Lab: [facility] [CLIA# [id number]] [place] [address] - - - - - - - [...] - PATHOLOGY REPORT Accession No. [id number] - - - - - - - [...] - PATHOLOGY REPORT Accession No. [id number] - - - - - - - [...] Pathology Report Performed By: [facility] [CLIA# [id number]] [place] [address] $FTR - - - - - - - - - - - - - - - - - - - - - - - - - - - - - - - - - - - - - - - - (End of report) JOSE REESE MD [facility] Date Jan 06, 2024 - - - - - - - - - - - - - - - - - - - - - - - - - - - - - - - - - - - - - - - - GERI COUGHLIN STANDARD FORM 515 ID:[id number] SEX:M :1935 AGE: 88 LOC:[id number] PCP: Sariah Gomes MD /shelly/ JOSE REESE M.D. STAFF PATHOLOGIST Signed: 01/06/2024 11:16 JOSE REESE [facility]
--- OUTSIDE RECORDS SUMMARY | 2024-03-10 19:38 | XMS_ITS | Encounter Summary ---
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 Insurance Providers: All historical and [...] PART A Sep 09, 2002 PART A [phone] JOAQUIN COUGHLIN S PATIENT MEDICARE (WNR) MEDICARE (M) PART B Sep 09, 2002 PART B [id number] NULL,JOAQUIN S PATIENT MEDICARE (WNR) MEDICARE (M) PART A Sep 09, 2002 PART A [id number] JOAQUIN COUGHLIN S PATIENT MEDICARE (WNR) MEDICARE (M) PART B Sep 09, 2002 PART B [id number] JOAQUIN COUGHLIN S PATIENT Selected Encounter This section includes the information on record at [place] for the Encounter. Date/Time Encounter Type Encounter Description Reason Provider Source Jan 30, 2024 11:13 AM ENDOLUMINL IVUS OCT C 1ST CARDIAC CATHETERIZATION ICD-10-CM I21.4 Non-ST elevation (NSTEMI) myocardial infarction HAWTHORNE,LUCAS Oneyda Encounter Template Text not used by [place] Assessments - Encounter Diagnoses This section includes the primary and secondary diagnoses documented for the Encounter. Date/Time Primary/Secondary Diagnosis Diagnosis Name Provider Source Jan 30, 2024 11:14 AM PRIMARY Non-ST elevation (NSTEMI) myocardial infarction LUCAS HAWTHORNE [facility] Jan 30, 2024 11:14 AM SECONDARY Chronic kidney disease, unspecified [facility] Jan 30, 2024 11:14 AM SECONDARY Hyperlipidemia, unspecified [facility] Jan 30, 2024 11:14 AM SECONDARY Hypertensive chronic kidney disease w stg 1-4/unsp chr kdny [facility] Plan of Treatment: Future Appointments (+ 6 months) and Future Tests (+/- 45 days) The Plan of Treatment section includes future care activities for the patient [facility] [place] [facility] This section includes future appointments and future orders which are active, pending or scheduled. Future Appointments This section includes appointments that were scheduled to occur 6 months from the date of the Encounter, up to a maximum of 20 appointments. The data comes from all [facility]. Appointment Date/Time Appointment Type Appointme nt Facility Name Feb 17, 2024 01:00 PM AMBULATORY - NONE [facility] Feb 21, 2024 10:00 AM AMBULATORY - MEDICINE [facility] Feb 24, 2024 12:15 PM AMBULATORY - MEDICINE [facility] Feb 24, 2024 01:00 PM AMBULATORY - MEDICINE [facility] Mar 02, 2024 01:00 PM AMBULATORY - REHAB MEDICIN [facility] Apr 26, 2024 10:00 AM AMBULATORY - MEDICINE [facility] Active, Pending, and Scheduled Orders This section includes a listing of several types of active, pending, and scheduled orders, including clinic medications orders, diagnostic test orders, procedure orders and consult orders; where thestart date of the order is 45 days before the date of the Encounter or 45 days after the date of the Encounter. The data comes from all [facility]. Test Date/Time Test Type Test Details Facility Name Jan 18, 2024 04:23 PM Consult Order COMMUNITY CARE-ECHOCARDIOGRAPHY Cons Military Analyst's Choice [facility] Jan 19, 2024 12:10 PM Consult Order COMMUNITY CARE-DERMATOLOGY Cons Military Analyst's Choice [facility] Jan 28, 2024 02:00 AM Laboratory - Chemi stry Order TROPONIN I, HS PLASMA STAT [facility] Mar 01, 2024 03:28 PM Consult Order IFC TRAVEL ING [facility] Cons Military Analyst's Choice STAT [facility] Lab Results: +/- 30 days of [...] Range Comment Jan 31, 2024 10:50 AM [facility] HEMOGLOBIN A1C Specimen Type: BLOOD Comment: [...] Jan 31, 2024 10:13 AM Reporting Lab: [facility] [phone] Performing Lab: [facility] [address] HEMOGLOBIN A1C 5.4 4.0-6.0 Jan 31, 2024 10:50 AM [facility] LIPID PANEL,FASTING Specimen Type: PLASMA No comment entered. Ordering Provider: JULIET SMART Report Released Date/Time: Jan 31, 2024 10:13 AM Reporting Lab: [facility] [address] Performing Lab: [facility] [address] CHOLESTEROL 125 mg/dL <199 TRIGLYCERIDE 95 mg/dL <149 .HDL 37 mg/dL L >40 LDL CALCULATION 69 mg/dL <99 VLDL CALCULATION 19 mg/dL <29 NON HDL CHOLESTEROL 88 mg/dL <129 Jan 31, 2024 07:29 AM [facility] CBC Specimen Type: BLOOD No comment entered. Ordering Provider: BASHIR CARVAJAL Report Released Date/Time: Jan 30, 2024 01:03 PM Reporting Lab: [facility] [address] Performing Lab: [facility] [address] WBC 7.3 4.0-11.0 RBC 3.83 L 4.60-6.20 HGB 11.4 g/dL L 13.5-17.9 HCT 35.1 L 41.0-54.0 MCV 91.6 fL 80.0-100.0 MCH 29.8 pg 27.0-33.0 MCHC 32.5 g/dL 32.0-37.5 PLT 193 150-400 MPV 10.7 fL 9.1-13.0 RDW 12.2 11.5-14.5 Jan 31, 2024 07:29 AM [facility] BASIC METABOLIC PANEL+MG Specimen Type: PLASMA No comment entered. Ordering Provider: BASHIR CARVAJAL Report Released Date/Time: Jan 30, 2024 01:03 PM Reporting Lab: [facility] [address] Performing Lab: [facility] [address] CREATININE 1.3 mg/dL H 0.7-1.2 UREA NITROGEN 24 mg/dL 8-26 GLUCOSE 91 mg/dL 70-100 SODIUM 138 mmol/L 136-145 POTASSIUM 4.1 mmol/L 3.5-5.1 CHLORIDE 108 mmol/L H 98-107 CO2 23 mmol/L 22-29 CALCIUM 8.8 mg/dL 8.4-10.2 MAGNESIUM 2.1 mg/dL 1.6-2.6 ANION GAP 7 mmol/L 5-15 .CREAT EGFR(CKD-EPI) 54 L >60 Jan 30, 2024 10:37 AM [facility] POC ACT Specimen Type: BLOOD No comment entered. Ordering Provider: RODO CHRISTY Report Released Date/Time: Jan 30, 2024 10:43 AM Reporting Lab: [facility] [address] Performing Lab: [facility] [address] POC ACT 241 s H 84-139 Jan 30, 2024 10:08 AM [facility] POC ACT Specimen Type: BLOOD No comment entered. Ordering Provider: RODO CHRISTY Report Released Date/Time: Jan 30, 2024 10:14 AM Reporting Lab: [facility] [phone] Performing Lab: [facility] [address] POC ACT 289 s H 84-139 Jan 30, 2024 09:34 AM [facility] POC ACT Specimen Type: BLOOD No comment entered. Ordering Provider: RODO CHRISTY Report Released Date/Time: Jan 30, 2024 10:14 AM Reporting Lab: [facility] [phone] Performing Lab: [facility] [address] POC ACT 294 s H 84-139 Jan 30, 2024 05:37 AM [facility] HEPARIN APTT Specimen Type: PLASMA No comment entered. Ordering Provider: BASHIR CARVAJAL Report Released Date/Time: Jan 29, 2024 09:43 PM Reporting Lab: [facility] [address] Performing Lab: [facility] [address] HEPARIN APTT 83.2 s 48.0-92.0 Jan 30, 2024 05:37 AM [facility] BASIC METABOLIC PANEL+MG Specimen Type: PLASMA No comment entered. Ordering Provider: BASHIR CARVAJAL Report Released Date/Time: Jan 29, 2024 12:19 PM Reporting Lab: [facility] [address] Performing Lab: [facility] [address] CREATININE 1.4 mg/dL H 0.7-1.2 UREA NITROGEN 27 mg/dL H 8-26 GLUCOSE 95 mg/dL 70-100 SODIUM 139 mmol/L 136-145 POTASSIUM 4.2 mmol/L 3.5-5.1 CHLORIDE 109 mmol/L H 98-107 CO2 24 mmol/L 22-29 CALCIUM 9.0 mg/dL 8.4-10.2 MAGNESIUM 2.1 mg/dL 1.6-2.6 ANION GAP 6 mmol/L 5-15 .CREAT EGFR(CKD-EPI) 49 L >60 Jan 29, 2024 09:02 PM [facility] HEPARIN APTT Specimen Type: PLASMA Comment: Critical Value Reported To: Tomasa Delcid PharmD 01/29/24 @[address] [place] [address]. Critical value report confirmed. Ordering Provider: MERY SAMUEL Report Released Date/Time: Jan 29, 2024 03:00 PM Reporting Lab: [facility] [address] Performing Lab: [facility] [address] HEPARIN APTT 214.6 s HH 48.0-92.0 Jan 29, 2024 06:24 AM [facility] BASIC METABOLIC PANEL+MG Specimen Type: PLASMA No comment entered. Ordering Provider: BASHIR CARVAJAL Report Released Date/Time: Jan 28, 2024 04:36 PM Reporting Lab: [facility] [address] Performing Lab: [facility] [address] CREATININE 1.6 mg/dL H 0.7-1.2 UREA NITROGEN 27 mg/dL H 8-26 GLUCOSE 92 mg/dL 70-100 SODIUM 140 mmol/L 136-145 POTASSIUM 4.2 mmol/L 3.5-5.1 CHLORIDE 110 mmol/L H 98-107 CO2 25 mmol/L 22-29 CALCIUM 8.8 mg/dL 8.4-10.2 MAGNESIUM 2.1 mg/dL 1.6-2.6 ANION GAP 5 mmol/L 5-15 .CREAT EGFR(CKD-EPI) 42 L >60 Jan 28, 2024 05:54 AM [facility] EXTRA PURPLE TUBE Specimen Type: BLOOD No comment entered. Ordering Provider: RODO CHRISTY Report Released Date/Time: Jan 28, 2024 05:54 AM Reporting Lab: [facility] [address] Performing Lab: [facility] [address] EXTRA PURPLE TUBE RECEIVED Jan 28, 2024 05:53 AM [facility] ALBUMIN Specimen Type: PLASMA No comment entered. Ordering Provider: BASHIR CARVAJAL Report Released Date/Time: Jan 27, 2024 04:49 PM Reporting Lab: [facility] [address] Performing Lab: [facility] [address] ALBUMIN 3.5 g/dL 3.5-5.2 Jan 28, 2024 05:53 AM [facility] BASIC METABOLIC PANEL+MG Specimen Type: PLASMA No comment entered. Ordering Provider: BASHIR CARVAJAL Report Released Date/Time: Jan 27, 2024 05:44 PM Reporting Lab: [facility] [address] Performing Lab: [facility] [address] CREATININE 1.4 mg/dL H 0.7-1.2 UREA NITROGEN 28 mg/dL H 8-26 GLUCOSE 92 mg/dL 70-100 SODIUM 140 mmol/L 136-145 POTASSIUM 4.4 mmol/L 3.5-5.1 CHLORIDE 109 mmol/L H 98-107 CO2 23 mmol/L 22-29 CALCIUM 8.8 mg/dL 8.4-10.2 MAGNESIUM 2.1 mg/dL 1.6-2.6 ANION GAP 8 mmol/L 5-15 .CREAT EGFR(CKD-EPI) 49 L >60 Jan 28, 2024 05:52 AM [facility] TROPONIN I, HS Specimen Type: PLASMA Comment: Critical value previously reported on patient. Ordering Provider: BRANDON MEJIA Report Released Date/Time: Jan 27, 2024 09:15 PM Reporting Lab: [facility] [phone] Performing Lab: [facility] [address] TROPONIN I, HS 128 HH <35 Jan 28, 2024 12:35 AM [facility] COVID-19 DIAGNOSTIC PANEL (CEPHEID) Specimen Type: NASOPHARYNGEAL Comment: Cepheid GeneXpert (618) Ordering Provider: LUCAS HAWTHORNE Report Released Date/Time: Jan 27, 2024 04:28 PM Reporting Lab: [facility] [address] Performing Lab: [facility] [address] COVID-19 (CEPHEID) Not Detected Not Detected Jan 28, 2024 12:35 AM [facility] HEPARIN APTT Specimen Type: PLASMA Comment: Critical Value Reported To: Deena Oliveros PharmD 01/28/24 @0110 HV. Critical value report confirmed. Ordering Provider: NATALIE ORDOÑEZ Report Released Date/Time: Jan 27, 2024 07:18 PM Reporting Lab: [facility] [address] Performing Lab: [facility] [address] HEPARIN APTT 133.9 s HH 48.0-92.0 Jan 28, 2024 12:35 AM [facility] TROPONIN I, HS Specimen Type: PLASMA Comment: Critical value previously reported on patient. Ordering Provider: BRANDON MEJIA Report Released Date/Time: Jan 27, 2024 09:15 PM Reporting Lab: [facility] [address] Performing Lab: [facility] [address] TROPONIN I, HS 158 HH <35 Jan 27, 2024 09:22 PM [facility] TROPONIN I, HS Specimen Type: PLASMA Comment: Critical value previously reported on patient. Ordering Provider: BASHIR CARVAJAL Report Released Date/Time: Jan 27, 2024 08:38 PM Reporting Lab: [facility] [address] Performing Lab: [facility] [address] TROPONIN I, HS 146 HH <35 Jan 27, 2024 06:52 PM [facility] TROPONIN I, HS Specimen Type: PLASMA Comment: Critical Value Reported To: Brandon Mejia MD 01/27/24 @[address] [place] [address]. Critical value report confirmed. Ordering Provider: BASHIR CARVAJAL Report Released Date/Time: Jan 27, 2024 04:54 PM Reporting Lab: [facility] [address] Performing Lab: [facility] [address] TROPONIN I, HS 136 HH <35 Jan 27, 2024 06:52 PM [facility] CBC Specimen Type: BLOOD No comment entered. Ordering Provider: BASHIR CARVAJAL Report Released Date/Time: Jan 27, 2024 04:54 PM Reporting Lab: [facility] [address] Performing Lab: [facility] [address] WBC 6.0 4.0-11.0 RBC 3.91 L 4.60-6.20 HGB 12.1 g/dL L 13.5-17.9 HCT 36.5 L 41.0-54.0 MCV 93.4 fL 80.0-100.0 MCH 30.9 pg 27.0-33.0 MCHC 33.2 g/dL 32.0-37.5 PLT 177 150-400 MPV 10.7 fL 9.1-13.0 RDW 12.4 11.5-14.5 Jan 27, 2024 06:52 PM [facility] BASIC METABOLIC PANEL+MG Specimen Type: PLASMA No comment entered. Ordering Provider: BASHIR CARVAJAL Report Released Date/Time: Jan 27, 2024 04:54 PM Reporting Lab: [facility] [address] Performing Lab: [facility] [address] [facility] [address] CREATININE 1.3 mg/dL H 0.7-1.2 UREA NITROGEN [...] 30, 2024 08:00 AM 148.37 23 [facility] Social History: Smoking Status (Most current) and [...] Date/Time Current Smoking Status Comment Mimi ity Dec 14, 2023 11:30 AM VA-TOBACCO FORMER USER [facility] Tobacco Use History This section includes a history of the smoking, or tobacco-related health factors, that were collected on or before the date of the Encounter. The data comes from the [place] facility where the Encounter took place. Date/Time Smoking Status/Tobacco Use Comment F acility Dec 14, 2023 11:30 AM VA-TOBACCO QUIT 15 YRS OR MORE [facility] Oct 13, 2022 01:30 PM VA-TOBACCO FORMER USER [facility] Oct 13, 2022 01:30 PM VA-TOBACCO QUIT 15 YRS OR MORE [facility] Jul 27, 2021 10:00 AM VA-TOBACCO FORMER USER [facility] Jul 27, 2021 10:00 AM VA-TOBACCO QUIT 15 YRS OR MORE [facility] Jan 02, 2020 09:00 AM VA-TOBACCO FORMER USER [facility] Jan 02, 2020 09:00 AM VA-TOBACCO QUIT 15 YRS OR MORE [facility] Jul 21, 2018 03:00 PM VA-TOBACCO FORMER USER [facility] Jul 21, 2018 03:00 PM VA-TOBACCO QUIT 15 YRS OR MORE [facility] Dec 24, 2016 08:01 AM FORMER TOBACCO USER 7Y OR GREATE R [facility] Dec 23, 2015 08:23 AM FORMER TOBACCO USE >1Y <7Y [facility] Dec 26, 2014 10:32 AM FORMER TOBACCO USER 7Y OR GREATE R [facility] August 13, 2013 08:22 AM LIFETIME NON-TOBACCO USER [facility] August 30, 2006 08:38 AM FORMER TOBACCO USER 7Y OR GREATE R [facility] Advance Directives: All historical and current [...] August 30, 2006 ADVANCE DIRECTIVE ARGENIS CRAMER [facility] Pathology Reports: +/- 30 days [...] COSIGNER: URGENCY: STATUS: COMPLETED $APHDR Reporting Lab: [facility] [CLIA# [id number]] [place] [address] - - - - - - - [...] - PATHOLOGY REPORT Accession No. [id number] - - - - - - - [...] - PATHOLOGY REPORT Accession No. [id number] - - - - - - - [...] of a shave biopsy of a scaly amher nodule measuring 0.7 x 0.7 x 0.2 cm. The specimen is inked. CE. 2. The specimen is received in formalin labeled right upper back and consists of a shave biopsy measuring 0.8 x 0.8 x 0.2 cm. The skin surface has a central maher nodule measuring 0.5 x 0.5 x 0.1 cm. The specimen is inked. CE. (D[place] [place]IC DESCRIPTION: Microscopic examination performed. CI. 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 STAFF PATHOLOGIST Signed Jan 06, 2024@11:16 Performing Laboratory: Surgical Pathology Report Performed By: [facility] [CLIA# [id number]] [place] [address] $FTR - - - - - - - - - - - - - - - - - - - - - - - - - - - - - - - - - - - - - - - - (End of report) JOSE REESE MD [facility] Date Jan 06, 2024 - - - - - - - - - - - - - - - - - - - - - - - - - - - - - - - - - - - - - - - - MADYSONGERI NUNEZ STANDARD FORM 515 ID:[id number] SEX:M :1935 AGE: 88 LOC:[id number] PCP: Sariah Gomes MD /shelly/ JOSE REESE M.D. STAFF PATHOLOGIST Signed: 01/06/2024 11:16 JOSE REESE [facility] Encounter Notes: All associated encounter notes [...] LUCAS HAWTHORNE EXP COSIGNER: URGENCY: STATUS: COMPLETED [place] [employer] Program for Clinical Assessment, Reporting, and Tracking PERCUTANEOUS CORONARY INTERVENTION REPORT Patient: GERI COUGHLIN SSN: [id number] : 1935 AGE: 88 Procedure Date: 01/30/2024 [...] in diameter 3. PCI Stent - SHAQ Bellflower Synergy, 3mm x 38mm peak inflation: 12 tha 4. PCI Stent - SHAQ Bellflower Synergy, 3.5mm x 24mm peak inflation: 12 [...] after discharge DEVICES AND MAJOR SUPPLIES # Supervisor Glycerin Description SN/Lot 0: Kyron OpStar Imaging Cath [id number] 1: Skift Runthrough NS .014 180cm x 3cm Straight [id number] 2: Collective Intellect Brite Tip Cath Guide 6F .070in XB [id number] 3: Wisr Scoreflex [place] Scoring PTCA Catheter 3mm x [id number] 4: Bellflower [employer] Synergy XD Coronary Drug-Eluting Stent 3 [id number] 5: [employer] Synergy XD Coronary Drug-Eluting Stent 3 [id number] 6: [employer] Synergy XD Coronary Drug-Eluting Stent 3 [id number] 7: Medtronic [place] Euphora RX 3.5mm x 20mm* [id number] 8: [employer] [place] Emerge MR US 3mm x 15mm [id number] 9: Strong Arm Technologies Medical C2 Plus IVL Catheter 5F 3mm x 12mm x 138 [id number] 10: Medtronic [place] Euphora RX 3.25mm x 12mm [id number] 11: Medtronic [place] Euphora RX 4mm x 8mm* [id number] 12: [employer] NC Emerge MR US 3.5mm x 12mm [id number] CART-PCI:[id number] 01/30/2024 /shelly/ LUCAS 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 Program for Clinical Assessment, Reporting, and Tracking CARDIOVASCULAR DIAGNOSTIC AND THERAPEUTIC PROCEDURE REPORT Patient: GERI COUGHLIN SSN: [id number] : 1935 AGE: 88 Procedure Date: 01/30/2024 [...] radial band CATHETERS Right coronary artery: Terumo [place], 6 fr Left coronary artery: Terumo [place], 6 fr CORONARY ANGIOGRAPHY Kaw Vessels Summary: 1 vessel CAD Dominance: Left [...] for full details. PROCEDURE CODING Coding Procedure 17163 Optical Coherence Tomography (OCT) 97185 Ultrasound guidance for vascular access N/A Moderate sedation DEVICES AND MAJOR SUPPLIES # Supervisor Glycerin Description SN/Lot 0: Wisr Dragonfly OpStar Imaging Cath [id number] 1: Skift Runthrough NS .014 180cm x 3cm Straight [id number] 2: Collective Intellect Brite Tip Cath Guide 6F .070in XB [id number] 3: Wisr Scoreflex [place] Scoring PTCA Catheter 3mm x [id number] 4: [employer] Synergy XD Coronary Drug-Eluting Stent 3 [id number] 5: [employer] Synergy XD Coronary Drug-Eluting Stent 3 [id number] 6: [employer] Synergy XD Coronary Drug-Eluting Stent 3 [id number] 7: Medtronic [place] Euphora RX 3.5mm x 20mm* [id number] 8: [employer] NC Emerge MR US 3mm x 15mm [id number] 9: [employer] Medical C2 Plus IVL Catheter 5F 3mm x 12mm x 138 [id number] 10: Medtronic [place] Euphora RX 3.25mm x 12mm [id number] 11: Medtronic [place] Euphora RX 4mm x 8mm* [id number] 12: Bell[employer] NC Emerge MR US 3.5mm x 12mm [id number] [facility][id number] 01/30/2024 /shelly/ LUCAS 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
--- OUTSIDE RECORDS SUMMARY | 2024-03-10 19:38 | XMS_ITS ---
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 Date/Time Encounter Type Encounter Description Reason Pro vider Source Jan 29, 2024 05:20 PM Inpatient Visit DAILY HOSPITALIZATION DATA [facility] Encounter Template Text not used by AL Plan of Treatment: Future Appointments (+ 6 months) and Future Tests (+/- 45 days) The Plan of Treatment section includes future care activities for the patient from all [facility] This section includes future appointments and future orders which are active, pending or scheduled. Future Appointments This section includes appointments that were scheduled to occur 6 months from the date of the Encounter, up to a maximum of 20 appointments. The data comes from all [place] treatment [facility]. Appointment Date/Time Appointment Type Appointme nt Facility Name Feb 17, 2024 01:00 PM AMBULATORY - NONE [place] [facility] Feb 21, 2024 10:00 AM AMBULATORY - MEDICINE [facility] Feb 24, 2024 12:15 PM AMBULATORY - MEDICINE [facility] Feb 24, 2024 01:00 PM AMBULATORY - MEDICINE [facility] Mar 02, 2024 01:00 PM AMBULATORY - REHAB MEDICIN E [facility] Apr 26, 2024 10:00 AM AMBULATORY - MEDICINE [facility] Active, Pending, and Scheduled Orders This section includes a listing of several types of active, pending, and scheduled orders, including clinic medications orders, diagnostic test orders, procedure orders and consult orders; where the start date of the order is 45 days before the date of the Encounter or 45 days after the date of theEncounter. The data comes from all [place] treatment [facility]. Test Date/Time Test Type Test Details Facility Name Jan 18, 2024 04:23 PM Consult Order COMMUNITY CARE-ECHOCARDIOGRAPHY [facility] [place] [place] [facility] Jan 19, 2024 12:10 PM Consult Order COMMUNITY CARE-DERMATOLOGY [facility] [place] [facility] Jan 28, 2024 02:00 AM Laboratory - Chemi stry Order TROPONIN I, HS PLASMA STAT [facility] Mar 01, 2024 03:28 PM Consult Order IFC TRAVEL ING UNIVERSAL CONSULT-TEKOA Cons [place] [facility] Lab Results: +/- 30 days of the encounter This section includes the Chemistry and Hematology Lab Results on record with [place] for the patient. Radiology Reports and Pathology [...] Jan 31, 2024 10:13 AM Reporting Lab: [facility] [id number] Performing Lab: [facility] [phone] HEMOGLOBIN A1C 5.4 4.0-6.0 Jan 31, 2024 10:50 AM [facility] LIPID PANEL,FASTING Specimen Type: PLASMA No comment entered. Ordering Provider: JULIET SMART Report Released Date/Time: Jan 31, 2024 10:13 AM Reporting Lab: [facility] [phone] Performing Lab: [facility] [phone] CHOLESTEROL 125 mg/dL <199 TRIGLYCERIDE 95 mg/dL <149 .HDL 37 mg/dL L >40 LDL CALCULATION 69 mg/dL <99 VLDL CALCULATION 19 mg/dL <29 NON HDL CHOLESTEROL 88 mg/dL <129 Jan 31, 2024 07:29 AM [facility] CBC Specimen Type: BLOOD No comment entered. Ordering Provider: BASHIR CARVAJAL Report Released Date/Time: Jan 30, 2024 01:03 PM Reporting Lab: [facility] [phone] Performing Lab: [facility] [phone] WBC 7.3 4.0-11.0 RBC 3.83 L 4.60-6.20 [...] Jan 30, 2024 01:03 PM Reporting Lab: [facility] [phone] Performing Lab: [facility] [address] CREATININE 1.3 mg/dL H 0.7-1.2 UREA NITROGEN [...] Jan 30, 2024 10:43 AM Reporting Lab: [facility] [phone] Performing Lab: [facility] [address] POC ACT 241 s H 84-139 Jan 30, 2024 10:08 AM [facility] POC ACT Specimen Type: BLOOD No comment entered. Ordering Provider: RODO CHRISTY Report Released Date/Time: Jan 30, 2024 10:14 AM Reporting Lab: [facility] [phone] Performing Lab: [facility] [phone] POC ACT 289 s H 84-139 Jan 30, 2024 09:34 AM [facility] POC ACT Specimen Type: BLOOD No comment entered. Ordering Provider: RODO CHRISTY Report Released Date/Time: Jan 30, 2024 10:14 AM Reporting Lab: [facility] [phone] Performing Lab: [facility] [address] POC ACT 294 s H 84-139 Jan 30, 2024 05:37 AM [facility] HEPARIN APTT Specimen Type: PLASMA No comment entered. Ordering Provider: BASHIR CARVAJAL Report Released Date/Time: Jan 29, 2024 09:43 PM Reporting Lab: [facility] [phone] Performing Lab: [facility] [address] HEPARIN APTT 83.2 s 48.0-92.0 Jan 30, 2024 05:37 AM [facility] BASIC METABOLIC PANEL+MG Specimen Type: PLASMA No comment entered. Ordering Provider: BASHIR CARVAJAL Report Released Date/Time: Jan 29, 2024 12:19 PM Reporting Lab: [facility] [address] Performing Lab: [facility] [phone] CREATININE 1.4 mg/dL H 0.7-1.2 UREA NITROGEN [...] Reported To: Tomasa Delcid PharmD 01/29/24 @[address] [place] [address]. Critical value report confirmed. Ordering Provider: MERY SAMUEL Report Released Date/Time: Jan 29, 2024 03:00 PM Reporting Lab: [facility] [phone] Performing Lab: [facility] [phone] HEPARIN APTT 214.6 s HH 48.0-92.0 Jan 29, 2024 06:24 AM [facility] BASIC METABOLIC PANEL+MG Specimen Type: PLASMA No comment entered. Ordering Provider: BASHIR CARVAJAL Report Released Date/Time: Jan 28, 2024 04:36 PM Reporting Lab: [facility] [phone] Performing Lab: [facility] [phone] CREATININE 1.6 mg/dL H 0.7-1.2 UREA NITROGEN [...] Jan 28, 2024 05:54 AM Reporting Lab: [facility] [phone] Performing Lab: [facility] [phone] EXTRA PURPLE TUBE RECEIVED Jan 28, 2024 05:53 AM [facility] ALBUMIN Specimen Type: PLASMA No comment entered. Ordering Provider: BASHIR CARVAJAL Report Released Date/Time: Jan 27, 2024 04:49 PM Reporting Lab: [facility] [phone] Performing Lab: [facility] [address] ALBUMIN 3.5 g/dL 3.5-5.2 Jan 28, 2024 05:53 AM [facility] BASIC METABOLIC PANEL+MG Specimen Type: PLASMA No comment entered. Ordering Provider: BASHIR CARVAJAL Report Released Date/Time: Jan 27, 2024 05:44 PM Reporting Lab: [facility] [phone] Performing Lab: [facility] [address] CREATININE 1.4 mg/dL H 0.7-1.2 UREA NITROGEN [...] Jan 27, 2024 09:15 PM Reporting Lab: [facility] [phone] Performing Lab: [facility] [address] TROPONIN I, HS 128 HH <35 Jan 28, 2024 12:35 AM [facility] COVID-19 DIAGNOSTIC PANEL (CEPHEID) Specimen Type: NASOPHARYNGEAL Comment: Cepheid GeneXpert (618) Ordering Provider: LUCAS HAWTHORNE Report Released Date/Time: Jan 27, 2024 04:28 PM Reporting Lab: [facility] [phone] Performing Lab: [facility] [phone] COVID-19 (CEPHEID) Not Detected Not Detected Jan 28, 2024 12:35 AM [facility] HEPARIN APTT Specimen Type: PLASMA Comment: Critical Value Reported To: Deena Oliveros PharmD 01/28/24 @0110 HV. Critical value report confirmed. Ordering Provider: NATALIE ORDOÑEZ Report Released Date/Time: Jan 27, 2024 07:18 PM Reporting Lab: [facility] [phone] Performing Lab: [facility] [address] HEPARIN APTT 133.9 s HH 48.0-92.0 Jan 28, 2024 12:35 AM [facility] TROPONIN I, HS Specimen Type: PLASMA Comment: Critical value previously reported on patient. Ordering Provider: BRANDON MEJIA Report Released Date/Time: Jan 27, 2024 09:15 PM Reporting Lab: [facility] [phone] Performing Lab: [facility] [phone] TROPONIN I, HS 158 HH <35 Jan 27, 2024 09:22 PM [facility] TROPONIN I, HS Specimen Type: PLASMA Comment: Critical value previously reported on patient. Ordering Provider: BASHIR CARVAJAL Report Released Date/Time: Jan 27, 2024 08:38 PM Reporting Lab: [facility] [phone] Performing Lab: [facility] [phone] TROPONIN I, HS 146 HH <35 Jan 27, 2024 06:52 PM [facility] TROPONIN I, HS Specimen Type: PLASMA Comment: Critical Value Reported To: Brandon Mejia MD 01/27/24 @1950 KL. Critical value report confirmed. Ordering Provider: BASHIR CARVAJAL Report Released Date/Time: Jan 27, 2024 04:54 PM Reporting Lab: [facility] [phone] Performing Lab: [facility] [phone] TROPONIN I, HS 136 HH <35 Jan 27, 2024 06:52 PM [facility] CBC Specimen Type: BLOOD No comment entered. Ordering Provider: BASHIR CARVAJAL Report Released Date/Time: Jan 27, 2024 04:54 PM Reporting Lab: [facility] [phone] Performing Lab: [facility] [address] WBC 6.0 4.0-11.0 RBC 3.91 L 4.60-6.20 HGB 12.1 g/dL L 13.5-17.9 HCT 36.5 L 41.0-54.0 MCV 93.4 fL 80.0-100.0 MCH 30.9 pg 27.0-33.0 MCHC 33.2 g/dL 32.0-37.5 PLT 177 150-400 MPV 10.7 fL 9.1-13.0 RDW 12.4 11.5-14.5 Jan 27, 2024 06:52 PM [facility] BASIC METABOLIC PANEL+MG Specimen Type: PLASMA No comment entered. Ordering Provider: BASHIR CARVAJAL Report Released Date/Time: Jan 27, 2024 04:54 PM Reporting Lab: [facility] [phone] Performing Lab: [facility] [phone] CREATININE 1.3 mg/dL H 0.7-1.2 UREA NITROGEN [...] and tobacco- related health factors from the AL facility where the Encounter took place. Current Smoking Status This section includes the most current smoking, or tobacco-related health factor, from the AL facility where the Encounter took place. Date/Time Current Smoking Status Comment Facil ity Dec 14, 2023 11:30 AM VA-TOBACCO FORMER USER [facility] Tobacco Use History This section includes a history of the smoking, or tobacco-related health factors, that were collected on or before the date of the Encounter. The data comes from the AL facility where the Encounter took place. Date/Time [...] ALL of a patient's completed or amended [place] Advance and Rescinded Directives. The entries below indicate that a directive exists for the patient, but an actual copy is not included with this document. The data comes from all [facility]. Date Advance Directives Provider Source August 30, 2006 ADVANCE DIRECTIVE ARGENIS CRAMER [facility] Pathology Reports: +/- 30 [...] the Encounter. The data comes from all [place] treatment facilities. Date/Time Pathology Report Provider Source Jan 06, 2024 11:16 AM [facility] OGY REPORT: LOCAL TITLE: LR SURGICAL PATHOLOGY REPORT STANDARD TITLE: PATHOLOGY REPORT DATE OF NOTE: JAN 06, 2024@11:16:39 ENTRY DATE: JAN 06, 2024@11:16:39 AUTHOR: JOSE REESE COSIGNER: URGENCY: STATUS: COMPLETED $APHDR Reporting Lab: [facility] [CLIA# [id number]] [place] [address] - - - - - - - [...] - PATHOLOGY REPORT Accession No. [id number] - - - - - - - [...] - PATHOLOGY REPORT Accession No. [id number] - - - - - - - [...] Performed By: [facility] [CLIA# [id number]] [place] [address] $FTR - - - - - - [...] - - GERI COUGHLIN STANDARD FORM 515 ID:[id number] SEX:M :1935 AGE: 88 LOC:[id number] PCP: Sariah Gomes MD /shelly/ JOSE REESE M.D. STAFF PATHOLOGIST Signed: 01/06/2024 11:16 JOSE REESE [facility]
--- OUTSIDE RECORDS SUMMARY | 2024-03-10 19:38 | XMS_ITS | Encounter Summary ---
Author Name [facility] [place] [facility] [place] [facility] [place] Address [address] [place] [id number] Care Team Providers Care Trim Crew Supervisor Name Role Phone SARIAH OGMES Primary Care Provider Unavailpat e Insurance Providers: [...] PART A Sep 09, 2002 PART A [id number] [phone] MADYSON,JOAQUIN S PATIENT MEDICARE (WNR) MEDICARE (M) PART B Sep 09, 2002 PART B [id number] NULL,JOAQUIN S PATIENT MEDICARE (WNR) MEDICARE (M) PART A Sep 09, 2002 PART A [id number] NULLJOAQUIN S PATIENT MEDICARE (WNR) MEDICARE (M) PART B Sep 09, 2002 PART B [id number] NULL,JOAQUIN S PATIENT Selected Encounter This [...] activities for the patient [facility] [place] [facility]. This section includes future appointments and future orders which are active, pending or scheduled. Future Appointments This section includes appointments that were scheduled to occur 6 months from the date of the Encounter, up to a maximum of 20 appointments. The data comes from all [place] [facility]. Appointment Date/Time Appointment Type Appointme nt Facility Name Feb 17, 2024 01:00 PM AMBULATORY - NONE [facility] Feb 21, 2024 10:00 AM AMBULATORY - MEDICINE [facility] Feb 24, 2024 12:15 PM AMBULATORY - MEDICINE [facility] Feb 24, 2024 01:00 PM AMBULATORY - MEDICINE [facility] Mar 02, 2024 01:00 PM AMBULATORY - REHAB [facility] Apr 26, 2024 10:00 AM AMBULATORY - MEDICINE [facility] Active, Pending, and Scheduled [...] 04:23 PM Consult Order COMMUNITY CARE-ECHOCARDIOGRAPHY Cons [facility] Jan 19, 2024 12:10 PM Consult Order COMMUNITY CARE-DERMATOLOGY [facility] Jan 28, 2024 02:00 AM Laboratory - Chemi stry Order TROPONIN I, HS PLASMA STAT [facility] Mar 01, 2024 03:28 PM Consult Order IFC TRAVEL ING [facility]IV[facility]AL [facility] [facility] Lab Results: +/- 30 days of the [...] Range Comment Jan 31, 2024 10:50 AM [facility] HEMOGLOBIN A1C Specimen Type: BLOOD [...] Jan 31, 2024 10:13 AM Reporting Lab: [facility] [phone] Performing Lab: [facility] [phone] HEMOGLOBIN A1C 5.4 4.0-6.0 Jan 31, 2024 10:50 AM [facility] LIPID PANEL,FASTING Specimen Type: PLASMA No comment entered. Ordering Provider: JULIET SMART Report Released Date/Time: Jan 31, 2024 10:13 AM Reporting Lab: [facility] [phone] Performing Lab: [facility] [phone] CHOLESTEROL 125 mg/dL <199 TRIGLYCERIDE 95 mg/dL <149 .HDL 37 mg/dL L >40 LDL CALCULATION 69 mg/dL <99 VLDL CALCULATION 19 mg/dL <29 NON HDL CHOLESTEROL 88 mg/dL <129 Jan 31, 2024 07:29 AM [facility] CBC Specimen Type: BLOOD No comment entered. Ordering Provider: BASHIR CARVAJAL Report Released Date/Time: Jan 30, 2024 01:03 PM Reporting Lab: [facility] [phone] Performing Lab: [facility] [phone] WBC 7.3 4.0-11.0 RBC 3.83 L 4.60-6.20 HGB 11.4 g/dL L 13.5-17.9 HCT 35.1 L 41.0-54.0 MCV 91.6 fL 80.0-100.0 MCH 29.8 pg 27.0-33.0 MCHC 32.5 g/dL 32.0-37.5 PLT 193 150-400 MPV 10.7 fL 9.1-13.0 RDW 12.2 11.5-14.5 Jan 31, 2024 07:29 AM [facility] BASIC METABOLIC PANEL+MG Specimen Type: PLASMA No comment entered. Ordering Provider: BASHIR CARVAJAL Report Released Date/Time: Jan 30, 2024 01:03 PM Reporting Lab: [facility] [phone] Performing Lab: [facility] [phone] CREATININE 1.3 mg/dL H 0.7-1.2 UREA NITROGEN 24 mg/dL 8-26 GLUCOSE 91 mg/dL 70-100 SODIUM 138 mmol/L 136-145 POTASSIUM 4.1 mmol/L 3.5-5.1 CHLORIDE 108 mmol/L H 98-107 CO2 23 mmol/L 22-29 CALCIUM 8.8 mg/dL 8.4-10.2 MAGNESIUM 2.1 mg/dL 1.6-2.6 ANION GAP 7 mmol/L 5-15 .CREAT EGFR(CKD-EPI) 54 L >60 Jan 30, 2024 10:37 AM [facility] POC ACT Specimen Type: BLOOD No comment entered. Ordering Provider: RODO CHRISTY Report Released Date/Time: Jan 30, 2024 10:43 AM Reporting Lab: [facility] [phone] Performing Lab: [facility] [phone] POC ACT 241 s H 84-139 Jan 30, 2024 10:08 AM [facility] POC ACT Specimen Type: BLOOD No comment entered. Ordering Provider: RODO CHRISTY Report Released Date/Time: Jan 30, 2024 10:14 AM Reporting Lab: [facility] [phone] Performing Lab: [facility] [address] POC ACT 289 s H 84-139 Jan 30, 2024 09:34 AM [facility] POC ACT Specimen Type: BLOOD No comment entered. Ordering Provider: RODO CHRISTY Report Released Date/Time: Jan 30, 2024 10:14 AM Reporting Lab: [facility] [phone] Performing Lab: [facility] [address] POC ACT 294 s H 84-139 Jan 30, 2024 05:37 AM [facility] HEPARIN APTT Specimen Type: PLASMA No comment entered. Ordering Provider: BASHIR CARVAJAL Report Released Date/Time: Jan 29, 2024 09:43 PM Reporting Lab: [facility] [phone] Performing Lab: [facility] [address] HEPARIN APTT 83.2 s 48.0-92.0 Jan 30, 2024 05:37 AM [facility] BASIC METABOLIC PANEL+MG Specimen Type: PLASMA No comment entered. Ordering Provider: BASHIR CARVAJAL Report Released Date/Time: Jan 29, 2024 12:19 PM Reporting Lab: [facility] [phone] Performing Lab: [facility] [phone] CREATININE 1.4 mg/dL H 0.7-1.2 UREA NITROGEN 27 mg/dL H 8-26 GLUCOSE 95 mg/dL 70-100 SODIUM 139 mmol/L 136-145 POTASSIUM 4.2 mmol/L 3.5-5.1 CHLORIDE 109 mmol/L H 98-107 CO2 24 mmol/L 22-29 CALCIUM 9.0 mg/dL 8.4-10.2 MAGNESIUM 2.1 mg/dL 1.6-2.6 ANION GAP 6 mmol/L 5-15 .CREAT EGFR(CKD-EPI) 49 L >60 Jan 29, 2024 09:02 PM [facility] HEPARIN APTT Specimen Type: PLASMA Comment: Critical Value Reported To: Tomasa Delcid PharmD 01/29/24 @[address] [place] [address]. Critical value report confirmed. Ordering Provider: MERY SAMUEL Report Released Date/Time: Jan 29, 2024 03:00 PM Reporting Lab: [facility] [phone] Performing Lab: [facility] [address] HEPARIN APTT 214.6 s HH 48.0-92.0 Jan 29, 2024 06:24 AM [facility] BASIC METABOLIC PANEL+MG Specimen Type: PLASMA No comment entered. Ordering Provider: BASHIR CARVAJAL Report Released Date/Time: Jan 28, 2024 04:36 PM Reporting Lab: [facility] [phone] Performing Lab: [facility] [phone] CREATININE 1.6 mg/dL H 0.7-1.2 UREA NITROGEN 27 mg/dL H 8-26 GLUCOSE 92 mg/dL 70-100 SODIUM 140 mmol/L 136-145 POTASSIUM 4.2 mmol/L 3.5-5.1 CHLORIDE 110 mmol/L H 98-107 CO2 25 mmol/L 22-29 CALCIUM 8.8 mg/dL 8.4-10.2 MAGNESIUM 2.1 mg/dL 1.6-2.6 ANION GAP 5 mmol/L 5-15 .CREAT EGFR(CKD-EPI) 42 L >60 Jan 28, 2024 05:54 AM [facility] EXTRA PURPLE TUBE Specimen Type: BLOOD No comment entered. Ordering Provider: RODO CHRISTY Report Released Date/Time: Jan 28, 2024 05:54 AM Reporting Lab: [facility] [phone] Performing Lab: [facility] [phone] EXTRA PURPLE TUBE RECEIVED Jan 28, 2024 05:53 AM [facility] ALBUMIN Specimen Type: PLASMA No comment entered. Ordering Provider: BASHIR CARVAJAL Report Released Date/Time: Jan 27, 2024 04:49 PM Reporting Lab: [facility] [phone] Performing Lab: [facility] [address] ALBUMIN 3.5 g/dL 3.5-5.2 Jan 28, 2024 05:53 AM [facility] BASIC METABOLIC PANEL+MG Specimen Type: PLASMA No comment entered. Ordering Provider: BASHIR CARVAJAL Report Released Date/Time: Jan 27, 2024 05:44 PM Reporting Lab: [facility] [phone] Performing Lab: [facility] [address] CREATININE 1.4 mg/dL H 0.7-1.2 UREA NITROGEN 28 mg/dL H 8-26 GLUCOSE 92 mg/dL 70-100 SODIUM 140 mmol/L 136-145 POTASSIUM 4.4 mmol/L 3.5-5.1 CHLORIDE 109 mmol/L H 98-107 CO2 23 mmol/L 22-29 CALCIUM 8.8 mg/dL 8.4-10.2 MAGNESIUM 2.1 mg/dL 1.6-2.6 ANION GAP 8 mmol/L 5-15 .CREAT EGFR(CKD-EPI) 49 L >60 Jan 28, 2024 05:52 AM [facility] TROPONIN I, HS Specimen Type: PLASMA Comment: Critical value previously reported on patient. Ordering Provider: BRANDON MEJIA Report Released Date/Time: Jan 27, 2024 09:15 PM Reporting Lab: [facility] [phone] Performing Lab: [facility] [phone] TROPONIN I, HS 128 HH <35 Jan 28, 2024 12:35 AM [facility] COVID-19 DIAGNOSTIC PANEL (CEPHEID) Specimen Type: NASOPHARYNGEAL Comment: Cepheid GeneXpert (618) Ordering Provider: LUCAS HAWTHORNE Report Released Date/Time: Jan 27, 2024 04:28 PM Reporting Lab: [facility] [phone] Performing Lab: [facility] [address] COVID-19 (CEPHEID) Not Detected Not Detected Jan 28, 2024 12:35 AM [facility] HEPARIN APTT Specimen Type: PLASMA Comment: Critical Value Reported To: Deena Oliveros PharmD 01/28/24 @0110 HV. Critical value report confirmed. Ordering Provider: NATALIE ORDOÑEZ Report Released Date/Time: Jan 27, 2024 07:18 PM Reporting Lab: [facility] [phone] Performing Lab: [facility] [phone] HEPARIN APTT 133.9 s HH 48.0-92.0 Jan 28, 2024 12:35 AM [facility] TROPONIN I, HS Specimen Type: PLASMA Comment: Critical value previously reported on patient. Ordering Provider: BRANDON MEJIA Report Released Date/Time: Jan 27, 2024 09:15 PM Reporting Lab: [facility] [phone] Performing Lab: [facility] [phone] TROPONIN I, HS 158 HH <35 Jan 27, 2024 09:22 PM [facility] TROPONIN I, HS Specimen Type: PLASMA Comment: Critical value previously reported on patient. Ordering Provider: BASHIR CARVAJAL Report Released Date/Time: Jan 27, 2024 08:38 PM Reporting Lab: [facility] [phone] Performing Lab: [facility] [address] TROPONIN I, HS 146 HH <35 Jan 27, 2024 06:52 PM [facility] TROPONIN I, HS Specimen Type: PLASMA Comment: Critical Value Reported To: Brandon Mejia MD 01/27/24 @[address] [place] [address]. Critical value report confirmed. Ordering Provider: BASHIR CARVAJAL Report Released Date/Time: Jan 27, 2024 04:54 PM Reporting Lab: [facility] [phone] Performing Lab: [facility] [phone] TROPONIN I, HS 136 HH <35 Jan 27, 2024 06:52 PM [facility] BASIC METABOLIC PANEL+MG Specimen Type: PLASMA No comment entered. Ordering Provider: BASHIR CARVAJAL Report Released Date/Time: Jan 27, 2024 04:54 PM Reporting Lab: [facility] [address] Performing Lab: [facility] [address] CREATININE 1.3 mg/dL H 0.7-1.2 UREA NITROGEN 30 mg/dL H 8-26 GLUCOSE 141 mg/dL H 70-100 SODIUM 142 mmol/L 136-145 POTASSIUM 3.4 mmol/L L 3.5-5.1 CHLORIDE 106 mmol/L 98-107 CO2 27 mmol/L 22-29 CALCIUM 8.8 mg/dL 8.4-10.2 MAGNESIUM 2.2 mg/dL 1.6-2.6 ANION GAP 9 mmol/L 5-15 .CREAT EGFR(CKD-EPI) 54 L >60 Jan 27, 2024 06:52 PM [facility] CBC Specimen Type: BLOOD No comment entered. Ordering Provider: BASHIR CARVAJAL Report Released Date/Time: Jan 27, 2024 04:54 PM Reporting Lab: [facility] [phone] Performing Lab: [facility] [phone] WBC 6.0 4.0-11.0 RBC 3.91 L 4.60-6.20 [...] 14, 2023 11:30 AM VA-TOBACCO FORMER USER [facility] Tobacco Use History This section includes a history of the smoking, or tobacco-related health factors, that were collected on or before the date of the Encounter. The data comes from the [place] facility where the Encounter took place. Date/Time Smoking Status/Tobacco Use Comment F acility Dec 14, 2023 11:30 AM VA-TOBACCO QUIT 15 YRS OR MORE [facility] Oct 13, 2022 01:30 PM VA-TOBACCO FORMER USER [facility] Oct 13, 2022 01:30 PM VA-TOBACCO QUIT 15 YRS OR MORE [facility] Jul 27, 2021 10:00 AM VA-TOBACCO FORMER USER [facility] Jul 27, 2021 10:00 AM VA-TOBACCO QUIT 15 YRS OR MORE [facility] Jan 02, 2020 09:00 AM VA-TOBACCO FORMER USER [facility] Jan 02, 2020 09:00 AM VA-TOBACCO QUIT 15 YRS OR MORE [facility] Jul 21, 2018 03:00 PM VA-TOBACCO FORMER USER [facility] Jul 21, 2018 03:00 PM VA-TOBACCO QUIT 15 YRS OR MORE [facility] Dec 24, 2016 08:01 AM FORMER TOBACCO USER 7Y OR GREATE R [facility] Dec 23, 2015 08:23 AM FORMER TOBACCO USE >1Y <7Y [facility] Dec 26, 2014 10:32 AM FORMER TOBACCO USER 7Y OR GREATE R [facility] August 13, 2013 08:22 AM LIFETIME NON-TOBACCO USER [facility] August 30, 2006 08:38 AM FORMER TOBACCO USER 7Y OR GREATE R [facility] Advance Directives: All historical and [...] August 30, 2006 ADVANCE DIRECTIVE ARGENIS CRAMER [facility] Pathology Reports: +/- 30 days of [...] COSIGNER: URGENCY: STATUS: COMPLETED $APHDR Reporting Lab: [facility] [CLIA# [id number]] [place] [address] - - - - - - - [...] - PATHOLOGY REPORT Accession No. [id number] - - - - - - - [...] - PATHOLOGY REPORT Accession No. [id number] - - - - - - - [...] 0.1 cm. The specimen is inked. CE. (D)[facility] MICROSCOPIC DESCRIPTION: Microscopic examination performed. CI. 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 STAFF PATHOLOGIST Signed Jan 06, 2024@11:16 Performing Laboratory: Surgical Pathology Report Performed By: [facility] [CLIA# [id number]] [place] [address] $FTR - - - - - - - - - - - - - - - - - - - - - - - - - - - - - - - - - - - - - - - - (End of report) JOSE REESE MD [facility] Date Jan 06, 2024 - - - - - - - - - - - - - - - - - - - - - - - - - - - - - - - - - - - - - - - - MADYSON,GERI NUNEZ STANDARD FORM 515 ID:[id number] SEX:M :[id number] AGE: 88 LOC:[id number] PCP: Sariah Gomes MD /shelly/ JOSE REESE M.D. STAFF PATHOLOGIST Signed: 01/06/2024 11:16 JOSE REESE [facility] Encounter Notes: All associated encounter notes This section contains the clinical notes associated to the Encounter. Date/Time Encounter Note(s) Provider Source Jan 29, 2024 01:00 AM CRITICAL CARE UNIT NOTE: LOCAL TITLE: [facility] INPATIENT FLOWSHEET STANDARD TITLE: CRITICAL CARE UNIT NOTE DATE OF NOTE: JAN 29, 2024@01:00 ENTRY DATE: JAN 30, 2024@14:38:18 AUTHOR: SPARKLEMemberPass-[employer] EXP COSIGNER: URGENCY: STATUS: COMPLETED This is a place barron only. Please see Twicketer to view document. /es/ [employer] SYSTEM ICU DOCUMENT IMPORT Signed: 01/30/2024 14:38 SYSTEM,MemberPass-ARK [facility] Jan 29, 2024 01:00 AM CRITICAL CARE UNIT NOTE: LOCAL TITLE: [facility] RESPIRATORY THERAPY FLOWSHEET STANDARD TITLE: CRITICAL CARE UNIT NOTE DATE OF NOTE: JAN 29, 2024@01:00 ENTRY DATE: JAN 30, 2024@15:08:38 AUTHOR: SP[employer] EXP COSIGNER: URGENCY: STATUS: COMPLETED This is a place barron only. Please see [facility] [employer] to view document. /es/ CIS-[facility] SYSTEM ICU DOCUMENT IMPORT Signed: 01/30/2024 15:08 SYSTEM,CIS-ARK [facility]
--- OUTSIDE RECORDS SUMMARY | 2024-03-10 19:38 | XMS_ITS | Encounter Summary ---
Author Name [facility] [place] [facility] [place] Address [address] [place] [id number] Care Team Providers Care Head Counselor Name Role Phone SARIAH GOMES Primary Care [...] PART A Sep 09, 2002 PART A [id number] MADYSON,JOAQUIN S PATIENT MEDICARE (WNR) MEDICARE (M) PART B Sep 09, 2002 PART B [id number] NULL,JOAQUIN S PATIENT MEDICARE (WNR) MEDICARE (M) PART A Sep 09, 2002 PART A [id number] NULLJOAQUIN S PATIENT MEDICARE (WNR) MEDICARE (M) PART B Sep 09, 2002 PART B [id number] MADYSON,JOAQUIN S PATIENT Selected Encounter This section includes the information on record at [place] for the Encounter. Date/Time Encounter Type Encounter Description Reason Pro vider Source Jan 28, 2024 01:00 AM Inpatient Visit ADMIN PAT ACTIVTIES (MASNONCT) SYSTEM,CIS-ARK IHE Encounter Template Text not used by [place] Plan of Treatment: Future Appointments (+ 6 months) and Future Tests (+/- 45 days) The Plan of Treatment section includes future care activities for the patient [facility] [place] [facility] This section includes future appointments and future orders which are active, pending or scheduled. Future Appointments This section includes appointments that were scheduled to occur 6 months from the date of the Encounter, up to a maximum of 20 appointments. The data comes from all [place] [facility]. Appointment Date/Time Appointment Type Appointme nt Facility Name Feb 17, 2024 01:00 PM AMBULATORY - NONE [place] Feb 21, 2024 10:00 AM AMBULATORY - MEDICINE [facility] Feb 24, 2024 12:15 PM AMBULATORY - MEDICINE [facility] Feb 24, 2024 01:00 PM AMBULATORY - MEDICINE [facility] Mar 02, 2024 01:00 PM AMBULATORY - REHAB [facility] Apr 26, 2024 10:00 AM AMBULATORY - MEDICINE [facility] Active, Pending, and Scheduled Orders [...] comes from all [facility]. Test Date/Time Test Type Test Details Facility Name Jan 18, 2024 04:23 PM Consult Order COMMUNITY CARE-ECHOCARDIOGRAPHY Cons [facility] Jan 19, 2024 12:10 PM Consult Order COMMUNITY CARE-DERMATOLOGY Cons [facility]'s [facility] Jan 28, 2024 02:00 AM Laboratory - Chemi stry Order TROPONIN I, HS PLASMA STAT [facility] Mar 01, 2024 03:28 PM Consult Order IFC TRAVEL ING [facility] Cons Lubrication Technician's [facility] Lab Results: +/- 30 days of the encounter This section includes the Chemistry and Hematology Lab Results on record with [place] for the patient. Radiology Reports and Pathology Reports are provided separately, in subsequent sections. Lab Results This section contains the Chemistry/Hematology Results that were resulted 30 days before or 30 daysafter the date of the Encounter. Date/Time Source Result Type Result - Unit Interpretation Reference Range Comment Jan 31, 2024 10:50 AM [facility] LIPID PANEL,FASTING Specimen Type: PLASMA No comment entered. Ordering Provider: JULIET SMART Report Released Date/Time: Jan 31, 2024 10:13 AM Reporting Lab: [facility] [phone] Performing Lab: [facility] [address] CHOLESTEROL 125 mg/dL <199 TRIGLYCERIDE 95 mg/dL <149 .HDL 37 mg/dL L >40 LDL CALCULATION 69 mg/dL <99 VLDL CALCULATION 19 mg/dL <29 NON HDL CHOLESTEROL 88 mg/dL <129 Jan 31, 2024 10:50 AM [facility] HEMOGLOBIN A1C Specimen Type: [...] Jan 31, 2024 10:13 AM Reporting Lab: [facility] [phone] Performing Lab: [facility] [phone] HEMOGLOBIN A1C 5.4 4.0-6.0 Jan 31, 2024 07:29 AM [facility] CBC Specimen Type: BLOOD No comment entered. Ordering Provider: BASHIR CARVAJAL Report Released Date/Time: Jan 30, 2024 01:03 PM Reporting Lab: [facility] [phone] Performing Lab: [facility] [phone] WBC 7.3 4.0-11.0 RBC 3.83 L 4.60-6.20 HGB 11.4 g/dL L 13.5-17.9 HCT 35.1 L 41.0-54.0 MCV 91.6 fL 80.0-100.0 MCH 29.8 pg 27.0-33.0 MCHC 32.5 g/dL 32.0-37.5 PLT 193 150-400 MPV 10.7 fL 9.1-13.0 RDW 12.2 11.5-14.5 Jan 31, 2024 07:29 AM [facility] BASIC METABOLIC PANEL+MG Specimen Type: PLASMA No comment entered. Ordering Provider: BASHIR CARVAJAL Report Released Date/Time: Jan 30, 2024 01:03 PM Reporting Lab: [facility] [phone] Performing Lab: [facility] [phone] CREATININE 1.3 mg/dL H 0.7-1.2 UREA NITROGEN 24 mg/dL 8-26 GLUCOSE 91 mg/dL 70-100 SODIUM 138 mmol/L 136-145 POTASSIUM 4.1 mmol/L 3.5-5.1 CHLORIDE 108 mmol/L H 98-107 CO2 23 mmol/L 22-29 CALCIUM 8.8 mg/dL 8.4-10.2 MAGNESIUM 2.1 mg/dL 1.6-2.6 ANION GAP 7 mmol/L 5-15 .CREAT EGFR(CKD-EPI) 54 L >60 Jan 30, 2024 10:37 AM [facility] POC ACT Specimen Type: BLOOD No comment entered. Ordering Provider: RODO CHRISTY Report Released Date/Time: Jan 30, 2024 10:43 AM Reporting Lab: [facility] [phone] Performing Lab: [facility] [address] POC ACT 241 s H 84-139 Jan 30, 2024 10:08 AM [facility] POC ACT Specimen Type: BLOOD No comment entered. Ordering Provider: RODO CHRISTY Report Released Date/Time: Jan 30, 2024 10:14 AM Reporting Lab: [facility] [phone] Performing Lab: [facility] [address] POC ACT 289 s H 84-139 Jan 30, 2024 09:34 AM [facility] POC ACT Specimen Type: BLOOD No comment entered. Ordering Provider: RODO CHRISTY Report Released Date/Time: Jan 30, 2024 10:14 AM Reporting Lab: [facility] [phone] Performing Lab: [facility] [phone] POC ACT 294 s H 84-139 Jan 30, 2024 05:37 AM [facility] HEPARIN APTT Specimen Type: PLASMA No comment entered. Ordering Provider: BASHIR CARVAJAL Report Released Date/Time: Jan 29, 2024 09:43 PM Reporting Lab: [facility] [phone] Performing Lab: [facility] [address] HEPARIN APTT 83.2 s 48.0-92.0 Jan 30, 2024 05:37 AM [facility] BASIC METABOLIC PANEL+MG Specimen Type: PLASMA No comment entered. Ordering Provider: BASHIR CARVAJAL Report Released Date/Time: Jan 29, 2024 12:19 PM Reporting Lab: [facility] [phone] Performing Lab: [facility] [phone] CREATININE 1.4 mg/dL H 0.7-1.2 UREA NITROGEN 27 mg/dL H 8-26 GLUCOSE 95 mg/dL 70-100 SODIUM 139 mmol/L 136-145 POTASSIUM 4.2 mmol/L 3.5-5.1 CHLORIDE 109 mmol/L H 98-107 CO2 24 mmol/L 22-29 CALCIUM 9.0 mg/dL 8.4-10.2 MAGNESIUM 2.1 mg/dL 1.6-2.6 ANION GAP 6 mmol/L 5-15 .CREAT EGFR(CKD-EPI) 49 L >60 Jan 29, 2024 09:02 PM [facility] HEPARIN APTT Specimen Type: PLASMA Comment: Critical Value Reported To: Tomasa Delcid PharmD 01/29/24 @[address] [place] [address]. Critical value report confirmed. Ordering Provider: MERY SAMUEL Report Released Date/Time: Jan 29, 2024 03:00 PM Reporting Lab: [facility] [phone] Performing Lab: [facility] [phone] HEPARIN APTT 214.6 s HH 48.0-92.0 Jan 29, 2024 06:24 AM [facility] BASIC METABOLIC PANEL+MG Specimen Type: PLASMA No comment entered. Ordering Provider: BASHIR CARVAJAL Report Released Date/Time: Jan 28, 2024 04:36 PM Reporting Lab: [facility] [phone] Performing Lab: [facility] [phone] CREATININE 1.6 mg/dL H 0.7-1.2 UREA NITROGEN 27 mg/dL H 8-26 GLUCOSE 92 mg/dL 70-100 SODIUM 140 mmol/L 136-145 POTASSIUM 4.2 mmol/L 3.5-5.1 CHLORIDE 110 mmol/L H 98-107 CO2 25 mmol/L 22-29 CALCIUM 8.8 mg/dL 8.4-10.2 MAGNESIUM 2.1 mg/dL 1.6-2.6 ANION GAP 5 mmol/L 5-15 .CREAT EGFR(CKD-EPI) 42 L >60 Jan 28, 2024 05:54 AM [facility] EXTRA PURPLE TUBE Specimen Type: BLOOD No comment entered. Ordering Provider: RODO CHRISTY Report Released Date/Time: Jan 28, 2024 05:54 AM Reporting Lab: [facility] [phone] Performing Lab: [facility] [phone] EXTRA PURPLE TUBE RECEIVED Jan 28, 2024 05:53 AM [facility] ALBUMIN Specimen Type: PLASMA No comment entered. Ordering Provider: BASHIR CARVAJAL Report Released Date/Time: Jan 27, 2024 04:49 PM Reporting Lab: [facility] [phone] Performing Lab: [facility] [phone] ALBUMIN 3.5 g/dL 3.5-5.2 Jan 28, 2024 05:53 AM [facility] BASIC METABOLIC PANEL+MG Specimen Type: PLASMA No comment entered. Ordering Provider: BASHIR CARVAJAL Report Released Date/Time: Jan 27, 2024 05:44 PM Reporting Lab: [facility] [phone] Performing Lab: [facility] [phone] CREATININE 1.4 mg/dL H 0.7-1.2 UREA NITROGEN 28 mg/dL H 8-26 GLUCOSE 92 mg/dL 70-100 SODIUM 140 mmol/L 136-145 POTASSIUM 4.4 mmol/L 3.5-5.1 CHLORIDE 109 mmol/L H 98-107 CO2 23 mmol/L 22-29 CALCIUM 8.8 mg/dL 8.4-10.2 MAGNESIUM 2.1 mg/dL 1.6-2.6 ANION GAP 8 mmol/L 5-15 .CREAT EGFR(CKD-EPI) 49 L >60 Jan 28, 2024 05:52 AM [facility] TROPONIN I, HS Specimen Type: PLASMA Comment: Critical value previously reported on patient. Ordering Provider: BRANDON MEJIA Report Released Date/Time: Jan 27, 2024 09:15 PM Reporting Lab: [facility] [phone] Performing Lab: [facility] [phone] TROPONIN I, HS 128 HH <35 Jan 28, 2024 12:35 AM [facility] COVID-19 DIAGNOSTIC PANEL (CEPHEID) Specimen Type: NASOPHARYNGEAL Comment: Cepheid GeneXpert (618) Ordering Provider: LUCAS HAWTHORNE Report Released Date/Time: Jan 27, 2024 04:28 PM Reporting Lab: [facility] [phone] Performing Lab: [facility] [phone] COVID-19 (CEPHEID) Not Detected Not Detected Jan 28, 2024 12:35 AM [facility] HEPARIN APTT Specimen Type: PLASMA Comment: Critical Value Reported To: Deena Oliveros PharmD 01/28/24 @0110 HV. Critical value report confirmed. Ordering Provider: NATALIE ORDOÑEZ Report Released Date/Time: Jan 27, 2024 07:18 PM Reporting Lab: [facility] [phone] Performing Lab: [facility] [address] HEPARIN APTT 133.9 s HH 48.0-92.0 Jan 28, 2024 12:35 AM [facility] TROPONIN I, HS Specimen Type: PLASMA Comment: Critical value previously reported on patient. Ordering Provider: BRANDON MEJIA Report Released Date/Time: Jan 27, 2024 09:15 PM Reporting Lab: [facility] [phone] Performing Lab: [facility] [phone] TROPONIN I, HS 158 HH <35 Jan 27, 2024 09:22 PM [facility] TROPONIN I, HS Specimen Type: PLASMA Comment: Critical value previously reported on patient. Ordering Provider: BASHIR CARVAJAL Report Released Date/Time: Jan 27, 2024 08:38 PM Reporting Lab: [facility] [phone] Performing Lab: [facility] [phone] TROPONIN I, HS 146 HH <35 Jan 27, 2024 06:52 PM [facility] TROPONIN I, HS Specimen Type: PLASMA Comment: Critical Value Reported To: Brandon Mejia MD 01/27/24 @[address] [place] [address]. Critical value report confirmed. Ordering Provider: BASHIR CARVAJAL Report Released Date/Time: Jan 27, 2024 04:54 PM Reporting Lab: [facility] [phone] Performing Lab: [facility] [phone] TROPONIN I, HS 136 HH <35 Jan 27, 2024 06:52 PM [facility] CBC Specimen Type: BLOOD No comment entered. Ordering Provider: BASHIR CARVAJAL Report Released Date/Time: Jan 27, 2024 04:54 PM Reporting Lab: [facility] [phone] Performing Lab: [facility] [address] WBC 6.0 4.0-11.0 RBC 3.91 L 4.60-6.20 HGB 12.1 g/dL L 13.5-17.9 HCT 36.5 L 41.0-54.0 MCV 93.4 fL 80.0-100.0 MCH 30.9 pg 27.0-33.0 MCHC 33.2 g/dL 32.0-37.5 PLT 177 150-400 MPV 10.7 fL 9.1-13.0 RDW 12.4 11.5-14.5 Jan 27, 2024 06:52 PM [facility] BASIC METABOLIC PANEL+MG Specimen Type: PLASMA No comment entered. Ordering Provider: BASHIR CARVAJAL Report Released Date/Time: Jan 27, 2024 04:54 PM Reporting Lab: [facility] [phone] Performing Lab: [facility] [phone] CREATININE 1.3 mg/dL H 0.7-1.2 UREA NITROGEN [...] Jan 28, 2024 03:42 AM 0 [facility] Jan 28, 2024 03:25 AM 7 [facility] Social History: Smoking Status (Most current) and Tobacco Use (All prior to encounter date) This section includes the most current, and the historical, smoking and tobacco- related health factors from the [place] facility where the Encounter took place. Current Smoking Status This section includes the most current smoking, or tobacco-related health factor, from the [place] facility where the Encounter took place. Date/Time Current Smoking Status Comment Facil ity Dec 14, 2023 11:30 AM VA-TOBACCO FORMER USER [facility] Tobacco Use History This section includes a history of the smoking, or tobacco-related health factors, that were collected on or before the date of the Encounter. The data comes from the [place] facility where the Encounter took place. Date/Time Smoking Status/Tobacco Use Comment F acility Dec 14, 2023 11:30 AM VA-TOBACCO QUIT 15 YRS OR MORE [facility] Oct 13, 2022 01:30 PM VA-TOBACCO FORMER USER [facility] Oct 13, 2022 01:30 PM VA-TOBACCO QUIT 15 YRS OR MORE [facility] Jul 27, 2021 10:00 AM VA-TOBACCO FORMER USER [facility] Jul 27, 2021 10:00 AM VA-TOBACCO QUIT 15 YRS OR MORE [facility] Jan 02, 2020 09:00 AM VA-TOBACCO FORMER USER [facility] Jan 02, 2020 09:00 AM VA-TOBACCO QUIT 15 YRS OR MORE [facility] Jul 21, 2018 03:00 PM VA-TOBACCO FORMER USER [facility] Jul 21, 2018 03:00 PM VA-TOBACCO QUIT 15 YRS OR MORE [facility] Dec 24, 2016 08:01 AM FORMER TOBACCO USER 7Y OR GREATE R [facility] Dec 23, 2015 08:23 AM FORMER TOBACCO USE >1Y <7Y [facility] Dec 26, 2014 10:32 AM FORMER TOBACCO USER 7Y OR GREATE R [facility] August 13, 2013 08:22 AM LIFETIME NON-TOBACCO USER [facility] August 30, 2006 08:38 AM FORMER TOBACCO USER 7Y OR GREATE R [facility] Advance Directives: All historical and current Section Date Range: From patient's date of to the date document was created. This section includes ALL of a patient's completed or amended [place] Advance and Rescinded Directives. The entries below indicate that a directive exists for the patient, but an actual copy is not included with this document. The data comes from all [place] facilities. Date Advance Directives Provider Source August 30, 2006 ADVANCE DIRECTIVE SHOAIBARGENIS BAILEY [facility] Pathology Reports: +/- [...] the Encounter. The data comes from all [place] treatment facilities. Date/Time Pathology Report Provider Source Jan 06, 2024 11:16 AM LR SURGICAL PATHOL OGY REPORT: LOCAL TITLE: LR SURGICAL PATHOLOGY REPORT STANDARD TITLE: PATHOLOGY REPORT DATE OF NOTE: JAN 06, 2024@11:16:39 ENTRY DATE: JAN 06, 2024@11:16:39 AUTHOR: JOSE REESE COSIGNER: URGENCY: STATUS: COMPLETED $APHDR Reporting Lab: [facility] [CLIA# [id number]] [place] [address] - - - - - - - [...] - PATHOLOGY REPORT Accession No. [id number] - - - - - - - [...] - PATHOLOGY REPORT Accession No. [id number] - - - - - - - [...] 0.1 cm. The specimen is inked. CE. (D[facility] MICROSCOPIC DESCRIPTION: Microscopic examination performed. CI. 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 STAFF PATHOLOGIST Signed Jan 06, 2024@11:16 Performing Laboratory: Surgical Pathology Report Performed By: [facility] [CLIA# [id number]] [place] [address] $FTR - - - - - - [...] - - MADYSON,GERI NUNEZ STANDARD FORM 515 ID:[id number] SEX:M :1935 AGE: 88 LOC:[id number] PCP: Sariah Gomes MD /shelly/ JOSE REESE M.D. STAFF PATHOLOGIST Signed: 01/06/2024 11:16 JOSE REESE [facility] Encounter Notes: All associated encounter notes This section contains the clinical notes associated to the Encounter. Date/Time Encounter Note(s) Provider Source Jan 28, 2024 01:00 AM CRITICAL CARE UNIT NOTE: LOCAL TITLE: [facility] INPATIENT FLOWSHEET STANDARD TITLE: CRITICAL CARE UNIT NOTE DATE OF NOTE: JAN 28, 2024@01:00 ENTRY DATE: JAN 29, 2024@14:37:19 AUTHOR: ZEINAB VILLAGRAN-SHIRA EXP COSIGNER: URGENCY: STATUS: COMPLETED This is a place barron only. Please see [employer] to view document. /es/ [employer] [place] [employer] [place] SYSTEM ICU DOCUMENT IMPORT Signed: 01/29/2024 14:37 SYSTEM,[place]-[facility] Jan 28, 2024 01:00 AM CRITICAL CARE UNIT NOTE: LOCAL TITLE: [facility] RESPIRATORY THERAPY FLOWSHEET STANDARD TITLE: CRITICAL CARE UNIT NOTE DATE OF NOTE: JAN 28, 2024@01:00 ENTRY DATE: JAN 29, 2024@15:09:49 AUTHOR: CAROLEE VILLAGRAN EXP COSIGNER: URGENCY: STATUS: COMPLETED This is a place barron only. Please see [employer] to view document. /es/ ZEINAB-SHIRA SYSTEM ICU DOCUMENT IMPORT Signed: 01/29/2024 15:09 ZEINAB VILLAGRAN-SHIRA [facility]
--- OUTSIDE RECORDS SUMMARY | 2024-03-10 19:38 | XMS_ITS | Encounter Summary ---
Author Name [facility] Organization [facility] Address [address] [place] [address] Care Team Providers Care Lodging Manager Name Role Phone SARIAH GOMES Primary [...] PART B Sep 09, 2002 PART B [id number] JOAQUIN COUGHLIN S PATIENT MEDICARE (WNR) MEDICARE (M) PART A Sep 09, 2002 PART A [id number] JOAQUIN COUGHLIN S PATIENT MEDICARE (WNR) MEDICARE (M) PART A Sep 09, 2002 PART A [id number] JOAQUIN COUGHLIN S PATIENT MEDICARE (WNR) MEDICARE (M) PART B Sep 09, 2002 PART B [id number] JOAQUIN COUGHLIN PATIENT Selected Encounter This section includes the information on record at [place] for the Encounter. Date/Time Encounter Type Encounter Description Reason Pro vider Source Jan 28, 2024 09:41 AM Inpatient Visit CARDIAC ECHO IHE Encounter Template Text not used by [place] Plan of Treatment: Future Appointments (+ 6 months) and Future Tests (+/- 45 days) The Plan of Treatment section includes future care activities for the patient [facility] This section includes future appointments and future orders which are active, pending or scheduled. Future Appointments This section includes appointments that were scheduled to occur 6 months from the date of the Encounter, up to a maximum of 20 appointments. The data comes from all [place] treatment [facility] Appointment Date/Time Appointment Type Appointme nt Facility Name Feb 17, 2024 01:00 PM AMBULATORY - NONE [facility] Feb 21, 2024 10:00 AM AMBULATORY - MEDICINE [facility] Feb 24, 2024 12:15 PM AMBULATORY - MEDICINE [facility] Feb 24, 2024 01:00 PM AMBULATORY - MEDICINE [facility] Mar 02, 2024 01:00 PM AMBULATORY - REHAB [facility]ICIN [facility] Apr 26, 2024 10:00 AM [facility]ORY - MEDICINE [facility] Active, Pending, and Scheduled Orders This [...] from all [facility]. Test Date/Time Test Type Test Details Facility Name Jan 18, 2024 04:23 PM Consult Order COMM[facility]ITY CARE-ECHOCARDIOGRAPHY Cons [facility] Jan 19, 2024 12:10 PM Consult Order COMM[facility]ITY CARE-DERMATOLOGY Cons [facility] Jan 28, 2024 02:00 AM Laboratory - Chemi stry Order TROPONIN I, HS PLASMA STAT [facility] Mar 01, 2024 03:28 PM Consult Order IFC TRAVEL ING [facility] Cons Athletic Equipment [facility] Lab Results: +/- 30 days of the encounter This section includes the Chemistry and Hematology Lab Results on record with [place] for the patient. Radiology Reports and Pathology [...] 10:13 AM Reporting Lab: [facility] [address] Performing Lab: [facility] [address] HEMOGLOBIN A1C 5.4 4.0-6.0 Jan 31, 2024 10:50 AM [facility] LIPID PANEL,FASTING Specimen Type: PLASMA No comment entered. Ordering Provider: JULIET SMART Report Released Date/Time: Jan 31, 2024 10:13 AM Reporting Lab: [facility] [address] Performing Lab: [facility] [address] CHOLESTEROL 125 mg/dL <199 TRIGLYCERIDE 95 mg/dL <149 .HDL 37 mg/dL L >40 LDL CALCULATION 69 mg/dL <99 VLDL CALCULATION 19 mg/dL <29 NON HDL CHOLESTEROL 88 mg/dL <129 Jan 31, 2024 07:29 AM [facility] CBC Specimen Type: BLOOD No comment entered. Ordering Provider: BASHIR CARVAJAL Report Released Date/Time: Jan 30, 2024 01:03 PM Reporting Lab: [facility] [address] Performing Lab: [facility] [address] WBC 7.3 4.0-11.0 RBC 3.83 L 4.60-6.20 [...] 01:03 PM Reporting Lab: [facility] [address] Performing Lab: [facility] [address] CREATININE 1.3 mg/dL H 0.7-1.2 UREA NITROGEN [...] 10:43 AM Reporting Lab: [facility] [address] Performing Lab: [facility] [address] POC ACT 241 s H 84-139 Jan 30, 2024 10:08 AM [facility] POC ACT Specimen Type: BLOOD No comment entered. Ordering Provider: RODO CHRISTY Report Released Date/Time: Jan 30, 2024 10:14 AM Reporting Lab: [facility] [address] Performing Lab: [facility] [address] POC ACT 289 s H 84-139 Jan 30, 2024 09:34 AM [facility] POC ACT Specimen Type: BLOOD No comment entered. Ordering Provider: RODO CHRISTY Report Released Date/Time: Jan 30, 2024 10:14 AM Reporting Lab: [facility] [address] Performing Lab: [facility] [address] POC ACT 294 s H 84-139 Jan 30, 2024 05:37 AM [facility] HEPARIN APTT Specimen Type: PLASMA No comment entered. Ordering Provider: BASHIR CARVAJAL Report Released Date/Time: Jan 29, 2024 09:43 PM Reporting Lab: [facility] [address] Performing Lab: [facility] [address] HEPARIN APTT 83.2 s 48.0-92.0 Jan 30, 2024 05:37 AM [facility] BASIC METABOLIC PANEL+MG Specimen Type: PLASMA No comment entered. Ordering Provider: BASHIR CARVAJAL Report Released Date/Time: Jan 29, 2024 12:19 PM Reporting Lab: [facility] [address] Performing Lab: [facility] [address] CREATININE 1.4 mg/dL H 0.7-1.2 UREA NITROGEN [...] Reported To: Tomasa Delcid PharmD 01/29/24 @[address] [place] [address]. Critical value report confirmed. Ordering Provider: MERY SAMUEL Report Released Date/Time: Jan 29, 2024 03:00 PM Reporting Lab: [facility] [address] Performing Lab: [facility] [address] HEPARIN APTT 214.6 s HH 48.0-92.0 Jan 29, 2024 06:24 AM [facility] BASIC METABOLIC PANEL+MG Specimen Type: PLASMA No comment entered. Ordering Provider: BASHIR CARVAJAL Report Released Date/Time: Jan 28, 2024 04:36 PM Reporting Lab: [facility] [address] Performing Lab: [facility] [address] CREATININE 1.6 mg/dL H 0.7-1.2 UREA NITROGEN [...] 05:54 AM Reporting Lab: [facility] [address] Performing Lab: [facility] [address] EXTRA PURPLE TUBE RECEIVED Jan 28, 2024 05:53 AM [facility] ALBUMIN Specimen Type: PLASMA No comment entered. Ordering Provider: BASHIR CARVAJAL Report Released Date/Time: Jan 27, 2024 04:49 PM Reporting Lab: [facility] [address] Performing Lab: [facility] [address] ALBUMIN 3.5 g/dL 3.5-5.2 Jan 28, 2024 05:53 AM [facility] BASIC METABOLIC PANEL+MG Specimen Type: PLASMA No comment entered. Ordering Provider: BASHIR CARVAJAL Report Released Date/Time: Jan 27, 2024 05:44 PM Reporting Lab: [facility] [address] Performing Lab: [facility] [address] CREATININE 1.4 mg/dL H 0.7-1.2 UREA NITROGEN [...] 09:15 PM Reporting Lab: [facility] [address] Performing Lab: [facility] [address] TROPONIN I, HS 128 HH <35 Jan 28, 2024 12:35 AM [facility] COVID-19 DIAGNOSTIC PANEL (CEPHEID) Specimen Type: NASOPHARYNGEAL Comment: Cepheid GeneXpert (618) Ordering Provider: LUCAS HAWTHORNE Report Released Date/Time: Jan 27, 2024 04:28 PM Reporting Lab: [facility] [address] Performing Lab: [facility] [address] COVID-19 (CEPHEID) Not Detected Not Detected Jan 28, 2024 12:35 AM [facility] HEPARIN APTT Specimen Type: PLASMA Comment: Critical Value Reported To: Deena Oliveros PharmD 01/28/24 @0110 HV. Critical value report confirmed. Ordering Provider: NATALIE ORDOÑEZ Report Released Date/Time: Jan 27, 2024 07:18 PM Reporting Lab: [facility] [address] Performing Lab: [facility] [address] HEPARIN APTT 133.9 s HH 48.0-92.0 Jan 28, 2024 12:35 AM [facility] TROPONIN I, HS Specimen Type: PLASMA Comment: Critical value previously reported on patient. Ordering Provider: BRANDON MEJIA Report Released Date/Time: Jan 27, 2024 09:15 PM Reporting Lab: [facility] [address] Performing Lab: [facility] [address] TROPONIN I, HS 158 HH <35 Jan 27, 2024 09:22 PM [facility] TROPONIN I, HS Specimen Type: PLASMA Comment: Critical value previously reported on patient. Ordering Provider: BASHIR CARVAJAL Report Released Date/Time: Jan 27, 2024 08:38 PM Reporting Lab: [facility] [address] Performing Lab: [facility] [address] TROPONIN I, HS 146 HH <35 Jan 27, 2024 06:52 PM [facility] TROPONIN I, HS Specimen Type: PLASMA Comment: Critical Value Reported To: Brandon Mejia MD 01/27/24 @1950 KL. Critical value report confirmed. Ordering Provider: BASHIR CARVAJAL Report Released Date/Time: Jan 27, 2024 04:54 PM Reporting Lab: [facility] [address] Performing Lab: [facility] [address] TROPONIN I, HS 136 HH <35 Jan 27, 2024 06:52 PM [facility] BASIC METABOLIC PANEL+MG Specimen Type: PLASMA No comment entered. Ordering Provider: BASHIR CARVAJAL Report Released Date/Time: Jan 27, 2024 04:54 PM Reporting Lab: [facility] [address] Performing Lab: [facility] [address] CREATININE 1.3 mg/dL H 0.7-1.2 UREA NITROGEN 30 mg/dL H 8-26 GLUCOSE 141 mg/dL H 70-100 SODIUM 142 mmol/L 136-145 POTASSIUM 3.4 mmol/L L 3.5-5.1 CHLORIDE 106 mmol/L 98-107 CO2 27 mmol/L 22-29 CALCIUM 8.8 mg/dL 8.4-10.2 MAGNESIUM 2.2 mg/dL 1.6-2.6 ANION GAP 9 mmol/L 5-15 .CREAT EGFR(CKD-EPI) 54 L >60 Jan 27, 2024 06:52 PM [facility] CBC Specimen Type: BLOOD No comment entered. Ordering Provider: BASHIR CARVAJAL Report Released Date/Time: Jan 27, 2024 04:54 PM Reporting Lab: [facility] [address] Performing Lab: [facility] [address] WBC 6.0 4.0-11.0 RBC 3.91 L 4.60-6.20 [...] Jan 28, 2024 03:42 AM 0 [facility] Jan 28, 2024 03:25 AM 7 [facility] Social History: Smoking Status (Most current) and Tobacco Use (All prior to encounter date) This section includes the most current, and the historical, smoking and tobacco- related health factors from the [place] facility where the Encounter took place. Current Smoking Status This section includes the most current smoking, or tobacco-related health factor, from the [place] facility where the Encounter took place. 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 The data comes from the [place] facility where the Encounter took place. Date/Time [...] ALL of a patient's completed or amended [place] Advance and Rescinded Directives. The entries below indicate that a directive exists for the patient, but an actual copy is not included with this document. The data comes from all [place] facilities. Date Advance Directives Provider Source August [...] the Encounter. The data comes from all [place] treatment facilities. Date/Time Pathology Report Provider Source Jan 06, 2024 11:16 AM [facility] SURG[facility] PATHOL OGY REPORT: LOCAL TITLE: LR SURGICAL PATHOLOGY REPORT STANDARD TITLE: PATHOLOGY REPORT DATE OF NOTE: JAN 06, 2024@11:16:39 ENTRY DATE: JAN 06, 2024@11:16:39 AUTHOR: JOSE REESE COSIGNER: URGENCY: STATUS: COMPLETED $APHDR Reporting Lab: [facility] [CLIA# [id number]] [place] [address] - - - - - - - [...] - PATHOLOGY REPORT Accession No. [id number] - - - - - - - [...] - PATHOLOGY REPORT Accession No. [id number] - - - - - - - [...] Pathology Report Performed By: [facility] [CLIA# [id number]] [place] [address] $FTR - - - - - - - - - - - - - - - - - - - - - - - - - - - - - - - - - - - - - - - - (End of report) JOSE REESE MD [facility] Date Jan 06, 2024 - - - - - - - - - - - - - - - - - - - - - - - - - - - - - - - - - - - - - - - - MADYSONGERI NUNEZ STANDARD FORM 515 ID:[id number] SEX:M :1935 AGE: 88 LOC:[id number] PCP: Sariah Gomes MD /shelly/ JOSE REESE [...] DATE/TIME PERFORMED: JAN 28, 2024@10:41:3 DOCUMENT IN [facility] SEE FULL REPORT IN [facility]IST[facility] SIGNATURE NOT REQUIRED SEE SIGNATURE IN VISTA IMAGING (XCELERA ISCV TTE INPT) AUTO-INSTRUMENT DIAGNOSIS Procedure: Adult Adult Release Status: Released Off-Line Verified Date Verified: Jan 30, 2024@11:01:05 CP Order Number: [id number] Study ID: [id number] + + DEMETRIUS Waters + + [facility] [address] [place] Transthoracic Echocardiogram Report + + :Name: GERI COUGHLIN Study Date: 01/28/2024 Height: 67 in : : Patient Location: \S\3KSD Weight: 141 lb: :: 1935 Gender: Male BSA: 1.7 m2 : :Age: 88 yrs : :CP Order Number: [id number] : :Reason For Study: Heart failure : + + :General Technician: Radha Reyes RDCS : + + :Referring Physician: ROSA MARIA NG : + + + + Interpretation Summary A complete two-dimensional transthoracic echocardiogram (74133) was performed without contrast. The left ventricular systolic function is normal. The visually estimated ejection fraction is 55-60%. There is moderate aortic sclerosis without stenosis. Procedure A complete two-dimensional transthoracic echocardiogram (55161) was performed without contrast. Left Ventricle The [...] to L: 28.9 QLAB Heart Model EDV (): 147.0 ml EF (): 63.0 % ESV (): 54.0 ml HR (): 54.0 BPM LV Length ED (): 91.0 mm SV (): 93.0 ml LV Length ES (): 74.0 mm ED Current (): 60.0 % ES Current (): 40.0 % ED Default (): 60.0 % ES Default (): 40.0 % Reading Physician:11:01 AM [id number] Administrative Closure: 01/30/2024 by: CLINICAL,DEVICE PROXY SERVICE CLINICAL,DEVICE PROXY SERVICE [facility]
--- OUTSIDE RECORDS SUMMARY | 2024-03-10 19:38 | XMS_ITS ---
[place] DAILY HOSPITALIZATION DATA [facility] Encounter Summary Created on: March 10, 2024 GERI COUGHLIN : 1935 Sex: Male Author Name [facility] [place] [facility] [facility] [place] Address [address] [place] [address] Care Team Providers Care Sheep Boner Name Role Phone SARIAH GOMES Primary Care [...] PART B Sep 09, 2002 PART B [id number] JOAQUIN COUGHLIN S PATIENT MEDICARE (WNR) MEDICARE (M) PART A Sep 09, 2002 PART A [id number] JOAQUIN COUGHLIN S PATIENT MEDICARE (WNR) MEDICARE (M) PART A Sep 09, 2002 PART A [id number] NULLJOAQUIN S PATIENT MEDICARE (WNR) MEDICARE (M) PART B Sep 09, 2002 PART B [id number] JOAQUIN COUGHLIN S PATIENT [...] activities for the patient [facility] [place] [facility] This section includes future appointments and future orders which are active, pending or scheduled. Future Appointments This section includes appointments that were scheduled to occur 6 months from the date of the Encounter, up to a maximum of 20 appointments. The data comes from all [place] treatment [facility]. Appointment Date/Time Appointment Type Appointme nt Facility Name Feb 17, 2024 01:00 PM AMBULATORY - NONE [facility] Feb 21, 2024 10:00 AM AMBULATORY - MEDICINE [facility] Feb 24, 2024 12:15 PM AMBULATORY - MEDICINE [facility] Feb 24, 2024 01:00 PM AMBULATORY - MEDICINE [facility] Mar 02, 2024 01:00 PM AMBULATORY - REHAB MEDICIN [facility] Apr 26, 2024 10:00 AM [facility] Active, Pending, and Scheduled [...] The data comes from all [place] treatment [facility]. Test Date/Time Test Type Test Details Facility Name Jan 18, 2024 04:23 PM Consult Order COMMUNITY CARE-ECHOCARDIOGRAPHY Cons Dye Reel Operator [facility] Jan 19, 2024 12:10 PM Consult Order COMMUNITY CARE-DERMATOLOGY Cons Dye Reel Operator [facility] Jan 28, 2024 02:00 AM Laboratory - Chemi stry Order TROPONIN I, HS PLASMA STAT [facility] Mar 01, 2024 03:28 PM Consult Order IFC TRAVEL ING [facility] Cons Dye Reel Operator [facility] Lab Results: +/- 30 days of the [...] Comment Jan 31, 2024 10:[address] [facility] HEMOGLOBIN A1C Specimen Type: BLOOD Comment: [...] 10:13 AM Reporting Lab: [facility] [phone] Performing Lab: [facility] [phone] HEMOGLOBIN A1C 5.4 4.0-6.0 Jan 31, 2024 10:[address] [facility] LIPID PANEL,FASTING Specimen Type: PLASMA No comment entered. Ordering Provider: JULIET SMART Report Released Date/Time: Jan 31, 2024 10:13 AM Reporting Lab: [facility] [phone] Performing Lab: [facility] [address] CHOLESTEROL 125 mg/dL <199 TRIGLYCERIDE 95 mg/dL <149 .HDL 37 mg/dL L >40 LDL CALCULATION 69 mg/dL <99 VLDL CALCULATION 19 mg/dL <29 NON HDL CHOLESTEROL 88 mg/dL <129 Jan 31, 2024 07:[address] [facility] CBC Specimen Type: BLOOD No comment entered. Ordering Provider: BASHIR CARVAJAL Report Released Date/Time: Jan 30, 2024 01:03 PM Reporting Lab: [facility] [phone] Performing Lab: [facility] [address] WBC 7.3 4.0-11.0 RBC 3.83 L 4.60-6.20 HGB 11.4 g/dL L 13.5-17.9 HCT 35.1 L 41.0-54.0 MCV 91.6 fL 80.0-100.0 MCH 29.8 pg 27.0-33.0 MCHC 32.5 g/dL 32.0-37.5 PLT 193 150-400 MPV 10.7 fL 9.1-13.0 RDW 12.2 11.5-14.5 Jan 31, 2024 07:[address] [facility] BASIC METABOLIC PANEL+MG Specimen Type: PLASMA No comment entered. Ordering Provider: BASIHR CARVAJAL Report Released Date/Time: Jan 30, 2024 01:03 PM Reporting Lab: [facility] [phone] Performing Lab: [facility] [phone] CREATININE 1.3 mg/dL H 0.7-1.2 UREA NITROGEN 24 mg/dL 8-26 GLUCOSE 91 mg/dL 70-100 SODIUM 138 mmol/L 136-145 POTASSIUM 4.1 mmol/L 3.5-5.1 CHLORIDE 108 mmol/L H 98-107 CO2 23 mmol/L 22-29 CALCIUM 8.8 mg/dL 8.4-10.2 MAGNESIUM 2.1 mg/dL 1.6-2.6 ANION GAP 7 mmol/L 5-15 .CREAT EGFR(CKD-EPI) 54 L >60 Jan 30, 2024 10:[address] [facility] POC ACT Specimen Type: BLOOD No comment entered. Ordering Provider: RODO CHRISTY Report Released Date/Time: Jan 30, 2024 10:43 AM Reporting Lab: [facility] [phone] Performing Lab: [facility] [address] POC ACT 241 s H 84-139 Jan 30, 2024 10:[address] [facility] POC ACT Specimen Type: BLOOD No comment entered. Ordering Provider: RODO CHRISTY Report Released Date/Time: Jan 30, 2024 10:14 AM Reporting Lab: [facility] [phone] Performing Lab: [facility] [address] POC ACT 289 s H 84-139 Jan 30, 2024 09:[address] [facility] POC ACT Specimen Type: BLOOD No comment entered. Ordering Provider: RODO CHRISTY Report Released Date/Time: Jan 30, 2024 10:14 AM Reporting Lab: [facility] [phone] Performing Lab: [facility] [address] POC ACT 294 s H 84-139 Jan 30, 2024 05:[address] [facility] HEPARIN APTT Specimen Type: PLASMA No comment entered. Ordering Provider: BASHIR CARVAJAL Report Released Date/Time: Jan 29, 2024 09:43 PM Reporting Lab: [facility] [phone] Performing Lab: [facility] [address] HEPARIN APTT 83.2 s 48.0-92.0 Jan 30, 2024 05:[address] [facility] BASIC METABOLIC PANEL+MG Specimen Type: PLASMA No comment entered. Ordering Provider: BASHIR CARVAJAL Report Released Date/Time: Jan 29, 2024 12:19 PM Reporting Lab: [facility] [phone] Performing Lab: [facility] [phone] CREATININE 1.4 mg/dL H 0.7-1.2 UREA NITROGEN 27 mg/dL H 8-26 GLUCOSE 95 mg/dL 70-100 SODIUM 139 mmol/L 136-145 POTASSIUM 4.2 mmol/L 3.5-5.1 CHLORIDE 109 mmol/L H 98-107 CO2 24 mmol/L 22-29 CALCIUM 9.0 mg/dL 8.4-10.2 MAGNESIUM 2.1 mg/dL 1.6-2.6 ANION GAP 6 mmol/L 5-15 .CREAT EGFR(CKD-EPI) 49 L >60 Jan 29, 2024 09:[address] [facility] HEPARIN APTT Specimen Type: PLASMA Comment: Critical Value Reported To: Tomasa Delcid PharmD 01/29/24 @[address] [place] [address]. Critical value report confirmed. Ordering Provider: MERY SAMUEL Report Released Date/Time: Jan 29, 2024 03:00 PM Reporting Lab: [facility] [phone] Performing Lab: [facility] [address] HEPARIN APTT 214.6 s HH 48.0-92.0 Jan 29, 2024 06:[address] [facility] BASIC METABOLIC PANEL+MG Specimen Type: PLASMA No comment entered. Ordering Provider: BASHIR CARVAJAL Report Released Date/Time: Jan 28, 2024 04:36 PM Reporting Lab: [facility] [phone] Performing Lab: [facility] [address] CREATININE 1.6 mg/dL H 0.7-1.2 UREA NITROGEN 27 mg/dL H 8-26 GLUCOSE 92 mg/dL 70-100 SODIUM 140 mmol/L 136-145 POTASSIUM 4.2 mmol/L 3.5-5.1 CHLORIDE 110 mmol/L H 98-107 CO2 25 mmol/L 22-29 CALCIUM 8.8 mg/dL 8.4-10.2 MAGNESIUM 2.1 mg/dL 1.6-2.6 ANION GAP 5 mmol/L 5-15 .CREAT EGFR(CKD-EPI) 42 L >60 Jan 28, 2024 05:[address] [facility] EXTRA PURPLE TUBE Specimen Type: BLOOD No comment entered. Ordering Provider: RODO CHRISTY Report Released Date/Time: Jan 28, 2024 05:54 AM Reporting Lab: [facility] [address] Performing Lab: [facility] [address] EXTRA PURPLE TUBE RECEIVED Jan 28, 2024 05:[address] [facility] ALBUMIN Specimen Type: PLASMA No comment entered. Ordering Provider: BASHIR CARVAJAL Report Released Date/Time: Jan 27, 2024 04:49 PM Reporting Lab: [facility] [address] Performing Lab: [facility] [address] ALBUMIN 3.5 g/dL 3.5-5.2 Jan 28, 2024 05:[address] [facility] BASIC METABOLIC PANEL+MG Specimen Type: PLASMA No comment entered. Ordering Provider: BASHIR CARVAJAL Report Released Date/Time: Jan 27, 2024 05:44 PM Reporting Lab: [facility] [phone] Performing Lab: [facility] [address] CREATININE 1.4 mg/dL H 0.7-1.2 UREA NITROGEN 28 mg/dL H 8-26 GLUCOSE 92 mg/dL 70-100 SODIUM 140 mmol/L 136-145 POTASSIUM 4.4 mmol/L 3.5-5.1 CHLORIDE 109 mmol/L H 98-107 CO2 23 mmol/L 22-29 CALCIUM 8.8 mg/dL 8.4-10.2 MAGNESIUM 2.1 mg/dL 1.6-2.6 ANION GAP 8 mmol/L 5-15 .CREAT EGFR(CKD-EPI) 49 L >60 Jan 28, 2024 05:[address] [facility] TROPONIN I, HS Specimen Type: PLASMA Comment: Critical value previously reported on patient. Ordering Provider: BRANDON MEJIA Report Released Date/Time: Jan 27, 2024 09:15 PM Reporting Lab: [facility] [phone] Performing Lab: [facility] [address] TROPONIN I, HS 128 HH <35 Jan 28, 2024 12:[address] [facility] COVID-19 DIAGNOSTIC PANEL (CEPHEID) Specimen Type: NASOPHARYNGEAL Comment: Cepheid GeneXpert (618) Ordering Provider: LUCAS HAWTHORNE Report Released Date/Time: Jan 27, 2024 04:28 PM Reporting Lab: [facility] [address] Performing Lab: [facility] [address] COVID-19 (CEPHEID) Not Detected Not Detected Jan 28, 2024 12:[address] [facility] HEPARIN APTT Specimen Type: PLASMA Comment: Critical Value Reported To: Deena Oliveros PharmD 01/28/24 @0110 HV. Critical value report confirmed. Ordering Provider: NATALIE ORDOÑEZ Report Released Date/Time: Jan 27, 2024 07:18 PM Reporting Lab: [facility] [address] Performing Lab: [facility] [address] HEPARIN APTT 133.9 s HH 48.0-92.0 Jan 28, 2024 12:[address] [facility] TROPONIN I, HS Specimen Type: PLASMA Comment: Critical value previously reported on patient. Ordering Provider: BRANDON MEJIA Report Released Date/Time: Jan 27, 2024 09:15 PM Reporting Lab: [facility] [address] Performing Lab: [facility] [address] TROPONIN I, HS 158 HH <35 Jan 27, 2024 09:[address] [facility] TROPONIN I, HS Specimen Type: PLASMA Comment: Critical value previously reported on patient. Ordering Provider: BASHIR CARVAJAL Report Released Date/Time: Jan 27, 2024 08:38 PM Reporting Lab: [facility] [address] Performing Lab: [facility] [address] TROPONIN I, HS 146 HH <35 Jan 27, 2024 06:[address] [facility] TROPONIN I, HS Specimen Type: PLASMA Comment: Critical Value Reported To: Brandon Mejia MD 01/27/24 @1950 KL. Critical value report confirmed. Ordering Provider: BASHIR CARVAJAL Report Released Date/Time: Jan 27, 2024 04:54 PM Reporting Lab: [facility] [address] Performing Lab: [facility] [address] TROPONIN I, HS 136 HH <35 Jan 27, 2024 06:[address] [facility] BASIC METABOLIC PANEL+MG Specimen Type: PLASMA No comment entered. Ordering Provider: BASHIR CARVAJAL Report Released Date/Time: Jan 27, 2024 04:54 PM Reporting Lab: [facility] [address] Performing Lab: [facility] [address] CREATININE 1.3 mg/dL H 0.7-1.2 UREA NITROGEN 30 mg/dL H 8-26 GLUCOSE 141 mg/dL H 70-100 SODIUM 142 mmol/L 136-145 POTASSIUM 3.4 mmol/L L 3.5-5.1 CHLORIDE 106 mmol/L 98-107 CO2 27 mmol/L 22-29 CALCIUM 8.8 mg/dL 8.4-10.2 MAGNESIUM 2.2 mg/dL 1.6-2.6 ANION GAP 9 mmol/L 5-15 .CREAT EGFR(CKD-EPI) 54 L >60 Jan 27, 2024 06:[address] [facility] CBC Specimen Type: BLOOD No comment entered. Ordering Provider: BASHIR CARVAJAL Report Released Date/Time: Jan 27, 2024 04:54 PM Reporting Lab: [facility] [phone] Performing Lab: [facility] [address] WBC 6.0 4.0-11.0 RBC 3.91 L 4.60-6.20 [...] 2024 08:00 AM 148.37 23 [facility] Social History: Smoking Status [...] 2023 11:30 AM VA-TOBACCO FORMER USER [facility] Tobacco Use History This section includes a history of the smoking, or tobacco-related health factors, that were collected on or before the date of the Encounter. The data comes from the [place] facility where the Encounter took place. Date/Time Smoking Status/Tobacco Use Comment F acility Dec 14, 2023 11:30 AM VA-TOBACCO QUIT [address] [facility] Oct 13, 2022 01:30 PM VA-TOBACCO FORMER USER [facility] Oct 13, 2022 01:30 PM VA-TOBACCO QUIT [address] [facility] Jul 27, 2021 10:00 AM VA-TOBACCO FORMER USER [facility] Jul 27, 2021 10:00 AM VA-TOBACCO QUIT [address] [facility] Jan 02, 2020 09:00 AM VA-TOBACCO FORMER USER [facility] Jan 02, 2020 09:00 AM VA-TOBACCO QUIT [address] [facility] Jul 21, 2018 03:00 PM VA-TOBACCO FORMER USER [facility] Jul 21, 2018 03:00 PM VA-TOBACCO QUIT [address] [facility] Dec 24, 2016 08:01 AM FORMER TOBACCO USER 7Y OR GREATE R [facility] Dec 23, 2015 08:23 AM FORMER TOBACCO USE >1Y <7Y [facility] Dec 26, 2014 10:32 AM FORMER TOBACCO USER 7Y OR GREATE R [facility] August 13, 2013 08:22 AM LIFETIME NON-TOBACCO USER [facility] August 30, 2006 08:38 AM FORMER TOBACCO USER 7Y OR GREATE R [facility] Advance Directives: All historical and current [...] URGENCY: STATUS: COMPLETED $APHDR Reporting Lab: [facility] [CLIA# [id number]] [place] [address] - - - - - - - [...] - PATHOLOGY REPORT Accession No. [id number] - - - - - - - [...] - PATHOLOGY REPORT Accession No. [id number] - - - - - - - [...] inked. CE. [place] [place]: Microscopic examination [...] Laboratory: Surgical Pathology Report Performed By: [facility] [CLIA# [id number]] [place] [address] $FTR - - - - - - - - - - - - - - - - - - - - - - - - - - - - - - - - - - - - - - - - (End of report) JOSE REESE MD [facility] Date Jan 06, 2024 - - - - - - - - - - - - - - - - - - - - - - - - - - - - - - - - - - - - - - - - MADYSON,GERI NUNEZ STANDARD FORM 515 ID:[id number] SEX:M :[id number] AGE: 88 LOC:[id number] PCP: Sariah Gomes MD /shelly/ JOSE REESE M.D. STAFF PATHOLOGIST Signed: 01/06/2024 11:[address] [facility]
--- OUTSIDE RECORDS SUMMARY | 2024-03-10 19:39 | XMS_ITS ---
[place] DAILY HOSPITALIZATION DATA [facility] Encounter Summary Created on: March 10, 2024 GERI COUGHLIN : 1935 Sex: Male Author Name [facility] [place] [facility] [place] [facility] [place] Address [address] [place] [address] Care Team Providers Care Investigation Clerk Name Role Phone SARIAH GOMES Primary Care [...] PART A Sep 09, 2002 PART A [id number] [phone] JOAQUIN COUGHLIN S PATIENT MEDICARE (WNR) MEDICARE (M) PART B Sep 09, 2002 PART B [id number] JOAQUIN COUGHLIN S PATIENT MEDICARE (WNR) MEDICARE (M) PART A Sep 09, 2002 PART A [id number] JOAQUIN COUGHLIN S PATIENT MEDICARE (WNR) MEDICARE (M) PART B Sep 09, 2002 PART B [id number] JOAQUIN COUGHLIN S PATIENT Selected Encounter This section includes the information on record at [place] for the Encounter. Date/Time Encounter Type Encounter Description Reason Pro vider Source Jan 31, 2024 12:07 PM Inpatient Visit DAILY HOSPITALIZATION DATA [facility] Encounter Template Text not used by [place] Plan of Treatment: Future Appointments (+ 6 months) and Future Tests (+/- 45 days) The Plan of Treatment section includes future care activities for the patient from all [place] [facility]. This section includes future appointments and future orders which are active, pending or scheduled. Future Appointments This section includes appointments that were scheduled to occur 6 months from the date of the Encounter, up to a maximum of 20 appointments. The data comes from all [place] treatment [facility]. Appointment Date/Time Appointment Type Appointme nt Facility Name Feb 17, 2024 01:00 PM AMBULATORY - NONE [facility] Feb 21, 2024 10:00 AM AMBULATORY - MEDICINE [facility] Feb 24, 2024 12:15 PM AMBULATORY - MEDICINE [facility] Feb 24, 2024 01:00 PM AMBULATORY - MEDICINE [facility] Mar 02, 2024 01:00 PM AMBULATORY - REHAB [facility] Apr 26, 2024 10:00 AM AMBULATORY - MEDICINE [facility] Jul 31, 2024 09:20 AM AMBULATORY [...] from all [facility]. Test Date/Time Test Type Test Details Facility Name Jan 18, 2024 04:23 PM Consult Order COMMUNITY CARE-ECHOCARDIOGRAPHY [facility] Jan 19, 2024 12:10 PM Consult Order COMMUNITY CARE-DERMATOLOGY [facility] Jan 28, 2024 02:00 AM Laboratory - Chemi stry Order TROPONIN I, HS PLASMA STAT [facility] Mar 01, 2024 03:28 PM Consult Order IFC TRAVEL ING [facility] Lab Results: +/- 30 days of the encounter This section includes the Chemistry and Hematology Lab Results on record with [place] for the patient. Radiology Reports and Pathology Reports are provided separately, in subsequent sections. Lab Results This section contains the Chemistry/Hematology Results that were resulted 30 days before or 30 daysafter the date of the Encounter. Date/Time Source Result Type Result - Unit Interpretation Reference Range Comment Jan 31, 2024 10:50 AM [facility] LIPID PANEL,FASTING Specimen Type: PLASMA No comment entered. Ordering Provider: JULIET SMART Report Released Date/Time: Jan 31, 2024 10:13 AM Reporting Lab: [facility] [place] [address] Performing Lab: [facility] [place] [address] CHOLESTEROL 125 mg/dL <199 TRIGLYCERIDE 95 mg/dL <149 .HDL 37 mg/dL L >40 LDL CALCULATION 69 mg/dL <99 VLDL CALCULATION 19 mg/dL <29 NON HDL CHOLESTEROL 88 mg/dL <129 Jan 31, 2024 10:50 AM [facility] HEMOGLOBIN A1C Specimen Type: BLOOD Comment: [...] Jan 31, 2024 10:13 AM Reporting Lab: [facility] [place] [address] Performing Lab: [facility] [place] [address] HEMOGLOBIN A1C 5.4 4.0-6.0 Jan 31, 2024 07:29 AM [facility] CBC Specimen Type: BLOOD No comment entered. Ordering Provider: BASHIR CARVAJAL Report Released Date/Time: Jan 30, 2024 01:03 PM Reporting Lab: [facility] [place] [address] Performing Lab: [facility] [place] [address] WBC 7.3 4.0-11.0 RBC 3.83 L 4.60-6.20 HGB 11.4 g/dL L 13.5-17.9 HCT 35.1 L 41.0-54.0 MCV 91.6 fL 80.0-100.0 MCH 29.8 pg 27.0-33.0 MCHC 32.5 g/dL 32.0-37.5 PLT 193 150-400 MPV 10.7 fL 9.1-13.0 RDW 12.2 11.5-14.5 Jan 31, 2024 07:29 AM [facility] BASIC METABOLIC PANEL+MG Specimen Type: PLASMA No comment entered. Ordering Provider: BASHIR CARVAJAL Report Released Date/Time: Jan 30, 2024 01:03 PM Reporting Lab: [facility] [place] [address] Performing Lab: [facility] [place] [address] CREATININE 1.3 mg/dL H 0.7-1.2 UREA NITROGEN 24 mg/dL 8-26 GLUCOSE 91 mg/dL 70-100 SODIUM 138 mmol/L 136-145 POTASSIUM 4.1 mmol/L 3.5-5.1 CHLORIDE 108 mmol/L H 98-107 CO2 23 mmol/L 22-29 CALCIUM 8.8 mg/dL 8.4-10.2 MAGNESIUM 2.1 mg/dL 1.6-2.6 ANION GAP 7 mmol/L 5-15 .CREAT EGFR(CKD-EPI) 54 L >60 Jan 30, 2024 10:37 AM [facility] POC ACT Specimen Type: BLOOD No comment entered. Ordering Provider: RODO CHRISTY Report Released Date/Time: Jan 30, 2024 10:43 AM Reporting Lab: [facility] [place] [address] Performing Lab: [facility] [place] [address] POC ACT 241 s H 84-139 Jan 30, 2024 10:08 AM [facility] POC ACT Specimen Type: BLOOD No comment entered. Ordering Provider: RODO CHRISTY Report Released Date/Time: Jan 30, 2024 10:14 AM Reporting Lab: [facility] [place] [address] Performing Lab: [facility] [place] [address] POC ACT 289 s H 84-139 Jan 30, 2024 09:34 AM [facility] POC ACT Specimen Type: BLOOD No comment entered. Ordering Provider: RODO CHRISTY Report Released Date/Time: Jan 30, 2024 10:14 AM Reporting Lab: [facility] [place] [address] Performing Lab: [facility] [place] [address] POC ACT 294 s H 84-139 Jan 30, 2024 05:37 AM [facility] HEPARIN APTT Specimen Type: PLASMA No comment entered. Ordering Provider: BASHIR CARVAJAL Report Released Date/Time: Jan 29, 2024 09:43 PM Reporting Lab: [facility] [place] [address] Performing Lab: [facility] [place] [address] HEPARIN APTT 83.2 s 48.0-92.0 Jan 30, 2024 05:37 AM [facility] BASIC METABOLIC PANEL+MG Specimen Type: PLASMA No comment entered. Ordering Provider: BASHIR CARVAJAL Report Released Date/Time: Jan 29, 2024 12:19 PM Reporting Lab: [facility] [place] [address] Performing Lab: [facility] [place] [address] CREATININE 1.4 mg/dL H 0.7-1.2 UREA NITROGEN 27 mg/dL H 8-26 GLUCOSE 95 mg/dL 70-100 SODIUM 139 mmol/L 136-145 POTASSIUM 4.2 mmol/L 3.5-5.1 CHLORIDE 109 mmol/L H 98-107 CO2 24 mmol/L 22-29 CALCIUM 9.0 mg/dL 8.4-10.2 MAGNESIUM 2.1 mg/dL 1.6-2.6 ANION GAP 6 mmol/L 5-15 .CREAT EGFR(CKD-EPI) 49 L >60 Jan 29, 2024 09:02 PM [facility] HEPARIN APTT Specimen Type: PLASMA Comment: Critical Value Reported To: Tomasa Delcid PharmD 01/29/24 @[address] [place] [address]. Critical value report confirmed. Ordering Provider: MERY SAMUEL Report Released Date/Time: Jan 29, 2024 03:00 PM Reporting Lab: [facility] [place] [address] Performing Lab: [facility] [place] [address] HEPARIN APTT 214.6 s HH 48.0-92.0 Jan 29, 2024 06:24 AM [facility] BASIC METABOLIC PANEL+MG Specimen Type: PLASMA No comment entered. Ordering Provider: BASHIR CARVAJAL Report Released Date/Time: Jan 28, 2024 04:36 PM Reporting Lab: [facility] [place] [address] Performing Lab: [facility] [place] [address] CREATININE 1.6 mg/dL H 0.7-1.2 UREA NITROGEN 27 mg/dL H 8-26 GLUCOSE 92 mg/dL 70-100 SODIUM 140 mmol/L 136-145 POTASSIUM 4.2 mmol/L 3.5-5.1 CHLORIDE 110 mmol/L H 98-107 CO2 25 mmol/L 22-29 CALCIUM 8.8 mg/dL 8.4-10.2 MAGNESIUM 2.1 mg/dL 1.6-2.6 ANION GAP 5 mmol/L 5-15 .CREAT EGFR(CKD-EPI) 42 L >60 Jan 28, 2024 05:54 AM [facility] EXTRA PURPLE TUBE Specimen Type: BLOOD No comment entered. Ordering Provider: RODO CHRISTY Report Released Date/Time: Jan 28, 2024 05:54 AM Reporting Lab: [facility] [place] [address] Performing Lab: [facility] [place] [address] EXTRA PURPLE TUBE RECEIVED Jan 28, 2024 05:53 AM [facility] ALBUMIN Specimen Type: PLASMA No comment entered. Ordering Provider: BASHIR CARVAJAL Report Released Date/Time: Jan 27, 2024 04:49 PM Reporting Lab: [facility] [place] [address] Performing Lab: [facility] [place] [address] ALBUMIN 3.5 g/dL 3.5-5.2 Jan 28, 2024 05:53 AM [facility] BASIC METABOLIC PANEL+MG Specimen Type: PLASMA No comment entered. Ordering Provider: BASHIR CARVAJAL Report Released Date/Time: Jan 27, 2024 05:44 PM Reporting Lab: [facility] [place] [address] Performing Lab: [facility] [place] [address] CREATININE 1.4 mg/dL H 0.7-1.2 UREA NITROGEN 28 mg/dL H 8-26 GLUCOSE 92 mg/dL 70-100 SODIUM 140 mmol/L 136-145 POTASSIUM 4.4 mmol/L 3.5-5.1 CHLORIDE 109 mmol/L H 98-107 CO2 23 mmol/L 22-29 CALCIUM 8.8 mg/dL 8.4-10.2 MAGNESIUM 2.1 mg/dL 1.6-2.6 ANION GAP 8 mmol/L 5-15 .CREAT EGFR(CKD-EPI) 49 L >60 Jan 28, 2024 05:52 AM [facility] TROPONIN I, HS Specimen Type: PLASMA Comment: Critical value previously reported on patient. Ordering Provider: BRANDON MEJIA Report Released Date/Time: Jan 27, 2024 09:15 PM Reporting Lab: [facility] [place] [address] Performing Lab: [facility] [place] [address] TROPONIN I, HS 128 HH <35 Jan 28, 2024 12:35 AM [facility] COVID-19 DIAGNOSTIC PANEL (CEPHEID) Specimen Type: NASOPHARYNGEAL Comment: Cepheid GeneXpert (618) Ordering Provider: LUCAS HAWTHORNE Report Released Date/Time: Jan 27, 2024 04:28 PM Reporting Lab: [facility] [place] [address] Performing Lab: [facility] [place] [address] COVID-19 (CEPHEID) Not Detected Not Detected Jan 28, 2024 12:35 AM [facility] HEPARIN APTT Specimen Type: PLASMA Comment: Critical Value Reported To: Deena Oliveros PharmD 01/28/24 @0110 HV. Critical value report confirmed. Ordering Provider: NATALIE ORDOÑEZ Report Released Date/Time: Jan 27, 2024 07:18 PM Reporting Lab: [facility] [place] [address] Performing Lab: [facility] [place] [address] HEPARIN APTT 133.9 s HH 48.0-92.0 Jan 28, 2024 12:35 AM [facility] TROPONIN I, HS Specimen Type: PLASMA Comment: Critical value previously reported on patient. Ordering Provider: BRANDON MEJIA Report Released Date/Time: Jan 27, 2024 09:15 PM Reporting Lab: [facility] [place] [address] Performing Lab: [facility] [place] [address] TROPONIN I, HS 158 HH <35 Jan 27, 2024 09:22 PM [facility] TROPONIN I, HS Specimen Type: PLASMA Comment: Critical value previously reported on patient. Ordering Provider: BASHIR CARVAJAL Report Released Date/Time: Jan 27, 2024 08:38 PM Reporting Lab: [facility] [place] [address] Performing Lab: [facility] [place] [address] TROPONIN I, HS 146 HH <35 Jan 27, 2024 06:52 PM [facility] TROPONIN I, HS Specimen Type: PLASMA Comment: Critical Value Reported To: Brandon Mejia MD 01/27/24 @[address] [place] [address]. Critical value report confirmed. Ordering Provider: BASHIR CARVAJAL Report Released Date/Time: Jan 27, 2024 04:54 PM Reporting Lab: [facility] [place] [address] Performing Lab: [facility] [place] [address] TROPONIN I, HS 136 HH <35 Jan 27, 2024 06:52 PM [facility] CBC Specimen Type: BLOOD No comment entered. Ordering Provider: BASHIR CARVAJAL Report Released Date/Time: Jan 27, 2024 04:54 PM Reporting Lab: [facility] [place] [address] Performing Lab: [facility] [place] [address] WBC 6.0 4.0-11.0 RBC 3.91 L 4.60-6.20 HGB 12.1 g/dL L 13.5-17.9 HCT 36.5 L 41.0-54.0 MCV 93.4 fL 80.0-100.0 MCH 30.9 pg 27.0-33.0 MCHC 33.2 g/dL 32.0-37.5 PLT 177 150-400 MPV 10.7 fL 9.1-13.0 RDW 12.4 11.5-14.5 Jan 27, 2024 06:52 PM [facility] BASIC METABOLIC PANEL+MG Specimen Type: PLASMA No comment entered. Ordering Provider: BASHIR CARVAJAL Report Released Date/Time: Jan 27, 2024 04:54 PM Reporting Lab: [facility] [place] [address] Performing Lab: [facility] [place] [address] CREATININE 1.3 mg/dL H 0.7-1.2 UREA NITROGEN [...] and tobacco- related health factors from the [place] facility where the Encounter took place. Current Smoking Status This section includes the most current smoking, or tobacco-related health factor, from the [place] facility where the Encounter took place. Date/Time Current Smoking Status Comment Facil ity Dec 14, 2023 11:30 AM VA-TOBACCO FORMER USER [facility] Tobacco Use History This section includes a history of the smoking, or tobacco-related health factors, that were collected on or before the date of the Encounter. The data comes from the [place] facility where the Encounter took place. Date/Time Smoking Status/Tobacco Use Comment F acility Dec 14, 2023 11:30 AM VA-TOBACCO QUIT 15 YRS OR MORE [facility] Oct 13, 2022 01:30 PM VA-TOBACCO FORMER USER [facility] Oct 13, 2022 01:30 PM VA-TOBACCO QUIT 15 YRS OR MORE [facility] Jul 27, 2021 10:00 AM VA-TOBACCO FORMER USER [facility] Jul 27, 2021 10:00 AM VA-TOBACCO QUIT 15 YRS OR MORE [facility] Jan 02, 2020 09:00 AM VA-TOBACCO FORMER USER [facility] Jan 02, 2020 09:00 AM VA-TOBACCO QUIT 15 YRS OR MORE [facility] Jul 21, 2018 03:00 PM VA-TOBACCO FORMER USER [facility] Jul 21, 2018 03:00 PM VA-TOBACCO QUIT 15 YRS OR MORE [facility] Dec 24, 2016 08:01 AM FORMER TOBACCO USER 7Y OR GREATE R [facility] Dec 23, 2015 08:23 AM FORMER TOBACCO USE >1Y <7Y [facility] Dec 26, 2014 10:32 AM FORMER TOBACCO USER 7Y OR GREATE R [facility] August 13, 2013 08:22 AM LIFETIME NON-TOBACCO USER [facility] August 30, 2006 08:38 AM FORMER TOBACCO USER 7Y OR GREATE R [facility] Advance Directives: All historical and current Section Date Range: From patient's date of to the date document was created. This section includes ALL of a patient's completed or amended [place] Advance and Rescinded Directives. The entries below indicate that a directive exists for the patient, but an actual copy is not included with this document. The data comes from all [place] facilities. Date Advance Directives Provider Source August [...] the Encounter. The data comes from all [place] treatment facilities. Date/Time Pathology Report Provider Source Jan 06, 2024 11:16 AM [facility] REPORT: LOCAL TITLE: LR SURGICAL PATHOLOGY REPORT STANDARD TITLE: PATHOLOGY REPORT DATE OF NOTE: JAN 06, 2024@11:16:39 ENTRY DATE: JAN 06, 2024@11:16:39 AUTHOR: JOSE REESE COSIGNER: URGENCY: STATUS: COMPLETED $APHDR Reporting Lab: [facility] [CLIA# [id number]] [place] [address] - - - - - - - [...] - PATHOLOGY REPORT Accession No. [id number] - - - - - - - [...] - PATHOLOGY REPORT Accession No. [id number] - - - - - - - [...] 0.1 cm. The specimen is inked. CE. (D)[facility] MICROSCOPIC DESCRIPTION: Microscopic examination performed. CI. 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 STAFF PATHOLOGIST Signed Jan 06, 2024@11:16 Performing Laboratory: Surgical Pathology Report Performed By: [facility] [CLIA# [id number]] [place] [address] $FTR - - - - - - [...] - - MADYSON,GERI NUNEZ STANDARD FORM 515 ID:[id number] SEX:M :1935 AGE: 88 LOC:[id number] PCP: Sariah Gomes MD /shelly/ JOSE REESE M.D. STAFF PATHOLOGIST Signed: 01/06/2024 11:16 JOSE REESE [facility]
--- OUTSIDE RECORDS SUMMARY | 2024-03-10 19:39 | XMS_ITS | Encounter Summary ---
Author Name [facility] [place] [facility] [place] Address [address] [place] [id number] Care Team Providers Care Superintendent Meter Tests Name Role Phone SARIAH GOMES Primary Care [...] PART A Sep 09, 2002 PART A [phone] JOAQUIN COUGHLIN S PATIENT MEDICARE (WNR) MEDICARE (M) PART B Sep 09, 2002 PART B [id number] NULL,JOAQUIN S PATIENT MEDICARE (WNR) MEDICARE (M) PART A Sep 09, 2002 PART A [id number] JOAQUIN COUGHLIN S PATIENT MEDICARE (WNR) MEDICARE (M) PART B Sep 09, 2002 PART B [id number] JOAQUIN COUGHLIN S PATIENT Selected Encounter This section includes the information on record at [place] for the Encounter. Date/Time Encounter Type Encounter Description Reason Pro vider Source Feb 01, 2024 12:33 PM Outpatient Encounter ADMIN PAT ACTIVTIES (MASNONCT) [facility] Encounter Template Text not used by [facility] Plan of Treatment: Future Appointments (+ 6 months) and Future Tests (+/- 45 days) The Plan of Treatment section includes future care activities for the patient from all [place] [facility]. This section includes future appointments and future orders which are active, pending or scheduled. Future Appointments This section includes appointments that were scheduled to occur 6 months from the date of the Encounter, up to a maximum of 20 appointments. The data comes from all [facility]. Appointment Date/Time Appointment Type Appointme nt Facility Name Feb 17, 2024 01:00 PM AMBULATORY - NONE [facility] Feb 21, 2024 10:00 AM AMBULATORY - MEDICINE [facility] Feb 24, 2024 12:15 PM AMBULATORY - MEDICINE [facility] Feb 24, 2024 01:00 PM AMBULATORY - MEDICINE [facility] Mar 02, 2024 01:00 PM AMBULATORY - RE[facility]AB [facility] Apr 26, 2024 10:00 AM AMBULATORY - MEDICINE [facility] Jul 31, 2024 09:20 AM AMBULATORY - SURGERY [facility] Active, Pending, and Scheduled Orders This section includes a listing of several types of active, pending, and scheduled orders, including clinic medications orders, diagnostic test orders, procedure orders and consult orders; where the start date of the order is 45 days before the date of the Encounter or 45 days after the date of theEncounter. The data comes from all [facility]. Test Date/Time Test Type Test Details Facility Name Jan 18, 2024 04:23 PM Consult Order COMMUNITY CARE-ECHOCARDIOGRAPHY Cons Patternmaker Hand's Choice [facility] Jan 19, 2024 12:10 PM Consult Order COMMUNITY CARE-DERMATOLOGY Cons Patternmaker [facility] Jan 28, 2024 02:00 AM Laboratory - Chemi stry Order TROPONIN I, HS PLASMA STAT [facility] Mar 01, 2024 03:28 PM Consult Order IFC TRAVEL ING UNIVERSAL CONSULT-[place] Cons Patternmaker Hand's [facility] Lab Results: +/- 30 days [...] Range Comment Jan 31, 2024 10:50 AM [facility] HEMOGLOBIN A1C Specimen Type: BLOOD Comment: Values [...] AM Reporting Lab: [facility] [phone] Performing Lab: [facility] [phone] HEMOGLOBIN A1C 5.4 4.0-6.0 Jan 31, 2024 10:50 AM [facility] LIPID PANEL,FASTING Specimen Type: PLASMA No comment entered. Ordering Provider: JULIET SMART Report Released Date/Time: Jan 31, 2024 10:13 AM Reporting Lab: [facility] [phone] Performing Lab: [facility] [address] CHOLESTEROL 125 mg/dL <199 TRIGLYCERIDE 95 mg/dL <149 .HDL 37 mg/dL L >40 LDL CALCULATION 69 mg/dL <99 VLDL CALCULATION 19 mg/dL <29 NON HDL CHOLESTEROL 88 mg/dL <129 Jan 31, 2024 07:29 AM [facility] CBC Specimen Type: BLOOD No comment entered. Ordering Provider: BASHIR CARVAJAL Report Released Date/Time: Jan 30, 2024 01:03 PM Reporting Lab: [facility] [address] Performing Lab: [facility] [address] WBC 7.3 4.0-11.0 RBC 3.83 L 4.60-6.20 HGB 11.4 g/dL L 13.5-17.9 HCT 35.1 L 41.0-54.0 MCV 91.6 fL 80.0-100.0 MCH 29.8 pg 27.0-33.0 MCHC 32.5 g/dL 32.0-37.5 PLT 193 150-400 MPV 10.7 fL 9.1-13.0 RDW 12.2 11.5-14.5 Jan 31, 2024 07:29 AM [facility] BASIC METABOLIC PANEL+MG Specimen Type: PLASMA No comment entered. Ordering Provider: BASHIR CARVAJAL Report Released Date/Time: Jan 30, 2024 01:03 PM Reporting Lab: [facility] [phone] Performing Lab: [facility] [address] CREATININE 1.3 mg/dL H 0.7-1.2 UREA NITROGEN 24 mg/dL 8-26 GLUCOSE 91 mg/dL 70-100 SODIUM 138 mmol/L 136-145 POTASSIUM 4.1 mmol/L 3.5-5.1 CHLORIDE 108 mmol/L H 98-107 CO2 23 mmol/L 22-29 CALCIUM 8.8 mg/dL 8.4-10.2 MAGNESIUM 2.1 mg/dL 1.6-2.6 ANION GAP 7 mmol/L 5-15 .CREAT EGFR(CKD-EPI) 54 L >60 Jan 30, 2024 10:37 AM [facility] POC ACT Specimen Type: BLOOD No comment entered. Ordering Provider: RODO CHRISTY Report Released Date/Time: Jan 30, 2024 10:43 AM Reporting Lab: [facility] [phone] Performing Lab: [facility] [address] POC ACT 241 s H 84-139 Jan 30, 2024 10:08 AM [facility] POC ACT Specimen Type: BLOOD No comment entered. Ordering Provider: RODO CHRISTY Report Released Date/Time: Jan 30, 2024 10:14 AM Reporting Lab: [facility] [address] Performing Lab: [facility] [address] POC ACT 289 s H 84-139 Jan 30, 2024 09:34 AM [facility] POC ACT Specimen Type: BLOOD No comment entered. Ordering Provider: RODO CHRISTY Report Released Date/Time: Jan 30, 2024 10:14 AM Reporting Lab: [facility] [address] Performing Lab: [facility] [address] POC ACT 294 s H 84-139 Jan 30, 2024 05:37 AM [facility] HEPARIN APTT Specimen Type: PLASMA No comment entered. Ordering Provider: BASHIR CARVAJAL Report Released Date/Time: Jan 29, 2024 09:43 PM Reporting Lab: [facility] [address] Performing Lab: [facility] [address] HEPARIN APTT 83.2 s 48.0-92.0 Jan 30, 2024 05:37 AM [facility] BASIC METABOLIC PANEL+MG Specimen Type: PLASMA No comment entered. Ordering Provider: BASHIR CARVAJAL Report Released Date/Time: Jan 29, 2024 12:19 PM Reporting Lab: [facility] [address] Performing Lab: [facility] [address] CREATININE 1.4 mg/dL H 0.7-1.2 UREA NITROGEN 27 mg/dL H 8-26 GLUCOSE 95 mg/dL 70-100 SODIUM 139 mmol/L 136-145 POTASSIUM 4.2 mmol/L 3.5-5.1 CHLORIDE 109 mmol/L H 98-107 CO2 24 mmol/L 22-29 CALCIUM 9.0 mg/dL 8.4-10.2 MAGNESIUM 2.1 mg/dL 1.6-2.6 ANION GAP 6 mmol/L 5-15 .CREAT EGFR(CKD-EPI) 49 L >60 Jan 29, 2024 09:02 PM [facility] HEPARIN APTT Specimen Type: PLASMA Comment: Critical Value Reported To: Tomasa Delcid PharmD 01/29/24 @[address] [place] [address]. Critical value report confirmed. Ordering Provider: MERY SAMUEL Report Released Date/Time: Jan 29, 2024 03:00 PM Reporting Lab: [facility] [address] Performing Lab: [facility] [address] HEPARIN APTT 214.6 s HH 48.0-92.0 Jan 29, 2024 06:24 AM [facility] BASIC METABOLIC PANEL+MG Specimen Type: PLASMA No comment entered. Ordering Provider: BASHIR CARVAJAL Report Released Date/Time: Jan 28, 2024 04:36 PM Reporting Lab: [facility] [address] Performing Lab: [facility] [address] CREATININE 1.6 mg/dL H 0.7-1.2 UREA NITROGEN 27 mg/dL H 8-26 GLUCOSE 92 mg/dL 70-100 SODIUM 140 mmol/L 136-145 POTASSIUM 4.2 mmol/L 3.5-5.1 CHLORIDE 110 mmol/L H 98-107 CO2 25 mmol/L 22-29 CALCIUM 8.8 mg/dL 8.4-10.2 MAGNESIUM 2.1 mg/dL 1.6-2.6 ANION GAP 5 mmol/L 5-15 .CREAT EGFR(CKD-EPI) 42 L >60 Jan 28, 2024 05:54 AM [facility] EXTRA PURPLE TUBE Specimen Type: BLOOD No comment entered. Ordering Provider: RODO CHRISTY Report Released Date/Time: Jan 28, 2024 05:54 AM Reporting Lab: [facility] [address] Performing Lab: [facility] [address] EXTRA PURPLE TUBE RECEIVED Jan 28, 2024 05:53 AM [facility] ALBUMIN Specimen Type: PLASMA No comment entered. Ordering Provider: BASHIR CARVAJAL Report Released Date/Time: Jan 27, 2024 04:49 PM Reporting Lab: [facility] [address] Performing Lab: [facility] [address] ALBUMIN 3.5 g/dL 3.5-5.2 Jan 28, 2024 05:53 AM [facility] BASIC METABOLIC PANEL+MG Specimen Type: PLASMA No comment entered. Ordering Provider: BASHIR CARVAJAL Report Released Date/Time: Jan 27, 2024 05:44 PM Reporting Lab: [facility] [address] Performing Lab: [facility] [address] CREATININE 1.4 mg/dL H 0.7-1.2 UREA NITROGEN 28 mg/dL H 8-26 GLUCOSE 92 mg/dL 70-100 SODIUM 140 mmol/L 136-145 POTASSIUM 4.4 mmol/L 3.5-5.1 CHLORIDE 109 mmol/L H 98-107 CO2 23 mmol/L 22-29 CALCIUM 8.8 mg/dL 8.4-10.2 MAGNESIUM 2.1 mg/dL 1.6-2.6 ANION GAP 8 mmol/L 5-15 .CREAT EGFR(CKD-EPI) 49 L >60 Jan 28, 2024 05:52 AM [facility] TROPONIN I, HS Specimen Type: PLASMA Comment: Critical value previously reported on patient. Ordering Provider: BRANDON MEJIA Report Released Date/Time: Jan 27, 2024 09:15 PM Reporting Lab: [facility] [address] Performing Lab: [facility] [address] TROPONIN I, HS 128 HH <35 Jan 28, 2024 12:35 AM [facility] COVID-19 DIAGNOSTIC PANEL (CEPHEID) Specimen Type: NASOPHARYNGEAL Comment: Cepheid GeneXpert (618) Ordering Provider: LUCAS HAWTHORNE Report Released Date/Time: Jan 27, 2024 04:28 PM Reporting Lab: [facility] [address] Performing Lab: [facility] [address] COVID-19 (CEPHEID) Not Detected Not Detected Jan 28, 2024 12:35 AM [facility] HEPARIN APTT Specimen Type: PLASMA Comment: Critical Value Reported To: Deena Oliveros PharmD 01/28/24 @0110 . Critical value report confirmed. Ordering Provider: NATALIE ORDOÑEZ Report Released Date/Time: Jan 27, 2024 07:18 PM Reporting Lab: [facility] [address] Performing Lab: [facility] [address] HEPARIN APTT 133.9 s HH 48.0-92.0 Jan 28, 2024 12:35 AM [facility] TROPONIN I, HS Specimen Type: PLASMA Comment: Critical value previously reported on patient. Ordering Provider: BRANDON MEJIA Report Released Date/Time: Jan 27, 2024 09:15 PM Reporting Lab: [facility] [address] Performing Lab: [facility] [address] TROPONIN I, HS 158 HH <35 Jan 27, 2024 09:22 PM [facility] TROPONIN I, HS Specimen Type: PLASMA Comment: Critical value previously reported on patient. Ordering Provider: BASHIR CARVAJAL Report Released Date/Time: Jan 27, 2024 08:38 PM Reporting Lab: [facility] [address] Performing Lab: [facility] [address] TROPONIN I, HS 146 HH <35 Jan 27, 2024 06:52 PM [facility] TROPONIN I, HS Specimen Type: PLASMA Comment: Critical Value Reported To: Brandon Mejia MD 01/27/24 @[address] [place] [address]. Critical value report confirmed. Ordering Provider: BASHIR CARVAJAL Report Released Date/Time: Jan 27, 2024 04:54 PM Reporting Lab: [facility] [address] Performing Lab: [facility] [address] TROPONIN I, HS 136 HH <35 Jan 27, 2024 06:52 PM [facility] CBC Specimen Type: BLOOD No comment entered. Ordering Provider: BASHIR CARVAJAL Report Released Date/Time: Jan 27, 2024 04:54 PM Reporting Lab: [facility] [address] Performing Lab: [facility] [address] WBC 6.0 4.0-11.0 RBC 3.91 L 4.60-6.20 HGB 12.1 g/dL L 13.5-17.9 HCT 36.5 L 41.0-54.0 MCV 93.4 fL 80.0-100.0 MCH 30.9 pg 27.0-33.0 MCHC 33.2 g/dL 32.0-37.5 PLT 177 150-400 MPV 10.7 fL 9.1-13.0 RDW 12.4 11.5-14.5 Jan 27, 2024 06:52 PM [facility] BASIC METABOLIC PANEL+MG Specimen Type: PLASMA No comment entered. Ordering Provider: BASHIR CARVAJAL Report Released Date/Time: Jan 27, 2024 04:54 PM Reporting Lab: [facility] [address] Performing Lab: [facility] [address] CREATININE 1.3 mg/dL H 0.7-1.2 UREA NITROGEN [...] 14, 2023 11:30 AM VA-TOBACCO FORMER USER [facility] Tobacco Use History This section includes a history of the smoking, or tobacco-related health factors, that were collected on or before the date of the Encounter. The data comes from the [place] facility where the Encounter took place. Date/Time Smoking Status/Tobacco Use Comment F acility Dec 14, 2023 11:30 AM VA-TOBACCO QUIT 15 YRS OR MORE [facility] Oct 13, 2022 01:30 PM VA-TOBACCO FORMER USER [facility] Oct 13, 2022 01:30 PM VA-TOBACCO QUIT 15 YRS OR MORE [facility] Jul 27, 2021 10:00 AM VA-TOBACCO FORMER USER [facility] Jul 27, 2021 10:00 AM VA-TOBACCO QUIT 15 YRS OR MORE [facility] Jan 02, 2020 09:00 AM VA-TOBACCO FORMER USER [facility] Jan 02, 2020 09:00 AM VA-TOBACCO QUIT 15 YRS OR MORE [facility] Jul 21, 2018 03:00 PM VA-TOBACCO FORMER USER [facility] Jul 21, 2018 03:00 PM VA-TOBACCO QUIT 15 YRS OR MORE [facility] Dec 24, 2016 08:01 AM FORMER TOBACCO USER 7Y OR GREATE R [facility] Dec 23, 2015 08:23 AM FORMER TOBACCO USE >1Y <7Y [facility] Dec 26, 2014 10:32 AM FORMER TOBACCO USER 7Y OR GREATE R [facility] August 13, 2013 08:22 AM LIFETIME NON-TOBACCO USER [facility] August 30, 2006 08:38 AM FORMER TOBACCO USER 7Y OR GREATE R [facility] Advance Directives: All historical and current Section [...] COSIGNER: URGENCY: STATUS: COMPLETED $APHDR Reporting Lab: [facility] [CLIA# [id number]] [place] [address] - - - - - - - [...] - PATHOLOGY REPORT Accession No. [id number] - - - - - - - [...] - PATHOLOGY REPORT Accession No. [id number] - - - - - - - [...] 0.1 cm. The specimen is inked. CE. (D)[facility] MICROSCOPIC DESCRIPTION: Microscopic examination performed. CI. 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 STAFF PATHOLOGIST Signed Jan 06, 2024@11:16 Performing Laboratory: Surgical Pathology Report Performed By: [facility] [CLIA# [id number]] [place] [address] $FTR - - - - - - [...] - - MADYSON,GERI NUNEZ STANDARD FORM 515 ID:[id number] SEX:M :[id number] AGE: 88 LOC:[id number] PCP: Sariah Gomes MD /shelly/ JOSE REESE M.D. STAFF PATHOLOGIST Signed: 01/06/2024 11:16 JOSE REESE [facility] Encounter Notes: All associated encounter notes This section contains the clinical notes associated to the Encounter. Date/Time Encounter Note(s) Provider Source Jan 30, 2024 12:33 PM INTERVENTIONAL CAR DIOLOGY PROCEDURE NOTE: LOCAL TITLE: CARDIAC TIRE DESIGN ENGINEER PROCEDURE NOTE STANDARD TITLE: INTERVENTIONAL CARDIOLOGY PROCEDURE NOTE DATE OF NOTE: JAN 30, 2024@12:33 ENTRY DATE: FEB 01, 2024@12:34:54 AUTHOR: BRIGID CHILDS EXP COSIGNER: URGENCY: STATUS: COMPLETED see [facility] imaging. /shelly/ BRIGID CHILDS Mushroom Sorter Grader Signed: 02/01/2024 12:35 BRIGID CHILDS [facility]
--- OUTSIDE RECORDS SUMMARY | 2024-03-10 19:39 | XMS_ITS | Encounter Summary ---
Author Name [facility] Organization [facility] Address [address] [place] [id number] Care Team Providers Care Transplanter Orchid Name Role Phone SARIAH GOMES Primary Care [...] PART A Sep 09, 2002 PART A [id number] MADYSON,JOAQUIN S PATIENT MEDICARE (WNR) MEDICARE (M) PART B Sep 09, 2002 PART B [id number] NULL,JOAQUIN S PATIENT MEDICARE (WNR) MEDICARE (M) PART A Sep 09, 2002 PART A [id number] NULLJOAQUIN S PATIENT MEDICARE (WNR) MEDICARE (M) PART B Sep 09, 2002 PART B [id number] MADYSON,JOAQUIN S PATIENT Selected [...] care activities for the [facility] [place] This section includes future appointments and future orders which are active, pending or scheduled. Future Appointments This section includes appointments that were scheduled to occur 6 months from the date of the Encounter, up to a maximum of 20 appointments. The data comes from all ID treatment facilities. Appointment Date/Time Appointment Type Appointme nt Facility Name Feb 17, 2024 01:00 PM [facility] Feb 21, 2024 10:00 AM AMBULATORY - MEDICINE [facility] Feb 24, 2024 12:15 PM AMBULATORY - MEDICINE [facility] Feb 24, 2024 01:00 PM AMBULATORY - MEDICINE [facility] Mar 02, 2024 01:00 PM AMBULATORY - REHAB [facility] Apr 26, 2024 10:00 AM AMBULATORY - MEDICINE [facility] Jul 31, 2024 09:20 AM AMBULATORY - SURGERY [facility] Active, Pending, and Scheduled Orders [...] 04:23 PM Consult Order COMMUNITY CARE-ECHOCARDIOGRAPHY [employer] Supervisor's Choice [facility] Jan 19, 2024 12:10 PM Consult Order COMMUNITY CARE-DERMATOLOGY [employer] Supervisor's [facility] Jan 28, 2024 02:00 AM Laboratory - Chemi stry Order TROPONIN I, HS PLASMA STAT [facility] Mar 01, 2024 03:28 PM Consult Order IFC TRAVEL ING UNIVERSAL CONSULT-OSTRANDER [employer] Supervisor's [facility] Lab Results: +/- 30 days [...] Range Comment Jan 31, 2024 10:50 AM [facility] HEMOGLOBIN A1C Specimen Type: [...] AM Reporting Lab: [facility] [phone] Performing Lab: [facility] [id number] HEMOGLOBIN A1C 5.4 4.0-6.0 Jan 31, 2024 10:50 AM [facility] LIPID PANEL,FASTING Specimen Type: PLASMA No comment entered. Ordering Provider: JULIET SMART Report Released Date/Time: Jan 31, 2024 10:13 AM Reporting Lab: [facility] [address] Performing Lab: [facility] [address] CHOLESTEROL 125 mg/dL <199 TRIGLYCERIDE 95 mg/dL <149 .HDL 37 mg/dL L >40 LDL CALCULATION 69 mg/dL <99 VLDL CALCULATION 19 mg/dL <29 NON HDL CHOLESTEROL 88 mg/dL <129 Jan 31, 2024 07:29 AM [facility] CBC Specimen Type: BLOOD No comment entered. Ordering Provider: BASHIR CARVAJAL Report Released Date/Time: Jan 30, 2024 01:03 PM Reporting Lab: [facility] [address] Performing Lab: [facility] [address] WBC 7.3 4.0-11.0 RBC 3.83 L 4.60-6.20 HGB 11.4 g/dL L 13.5-17.9 HCT 35.1 L 41.0-54.0 MCV 91.6 fL 80.0-100.0 MCH 29.8 pg 27.0-33.0 MCHC 32.5 g/dL 32.0-37.5 PLT 193 150-400 MPV 10.7 fL 9.1-13.0 RDW 12.2 11.5-14.5 Jan 31, 2024 07:29 AM [facility] BASIC METABOLIC PANEL+MG Specimen Type: PLASMA No comment entered. Ordering Provider: BASHIR CARVAJAL Report Released Date/Time: Jan 30, 2024 01:03 PM Reporting Lab: [facility] [address] Performing Lab: [facility] [address] CREATININE 1.3 mg/dL H 0.7-1.2 UREA NITROGEN 24 mg/dL 8-26 GLUCOSE 91 mg/dL 70-100 SODIUM 138 mmol/L 136-145 POTASSIUM 4.1 mmol/L 3.5-5.1 CHLORIDE 108 mmol/L H 98-107 CO2 23 mmol/L 22-29 CALCIUM 8.8 mg/dL 8.4-10.2 MAGNESIUM 2.1 mg/dL 1.6-2.6 ANION GAP 7 mmol/L 5-15 .CREAT EGFR(CKD-EPI) 54 L >60 Jan 30, 2024 10:37 AM [facility] POC ACT Specimen Type: BLOOD No comment entered. Ordering Provider: RODO CHRISTY Report Released Date/Time: Jan 30, 2024 10:43 AM Reporting Lab: [facility] [address] Performing Lab: [facility] [address] POC ACT 241 s H 84-139 Jan 30, 2024 10:08 AM [facility] POC ACT Specimen Type: BLOOD No comment entered. Ordering Provider: RODO CHRISTY Report Released Date/Time: Jan 30, 2024 10:14 AM Reporting Lab: [facility] [address] Performing Lab: [facility] [address] POC ACT 289 s H 84-139 Jan 30, 2024 09:34 AM [facility] POC ACT Specimen Type: BLOOD No comment entered. Ordering Provider: RODO CHRISTY Report Released Date/Time: Jan 30, 2024 10:14 AM Reporting Lab: [facility] [address] Performing Lab: [facility] [address] POC ACT 294 s H 84-139 Jan 30, 2024 05:37 AM [facility] HEPARIN APTT Specimen Type: PLASMA No comment entered. Ordering Provider: BASHIR CARVAJAL Report Released Date/Time: Jan 29, 2024 09:43 PM Reporting Lab: [facility] [address] Performing Lab: [facility] [address] HEPARIN APTT 83.2 s 48.0-92.0 Jan 30, 2024 05:37 AM [facility] BASIC METABOLIC PANEL+MG Specimen Type: PLASMA No comment entered. Ordering Provider: BASHIR CARVAJAL Report Released Date/Time: Jan 29, 2024 12:19 PM Reporting Lab: [facility] [address] Performing Lab: [facility] [address] CREATININE 1.4 mg/dL H 0.7-1.2 UREA NITROGEN 27 mg/dL H 8-26 GLUCOSE 95 mg/dL 70-100 SODIUM 139 mmol/L 136-145 POTASSIUM 4.2 mmol/L 3.5-5.1 CHLORIDE 109 mmol/L H 98-107 CO2 24 mmol/L 22-29 CALCIUM 9.0 mg/dL 8.4-10.2 MAGNESIUM 2.1 mg/dL 1.6-2.6 ANION GAP 6 mmol/L 5-15 .CREAT EGFR(CKD-EPI) 49 L >60 Jan 29, 2024 09:02 PM [facility] HEPARIN APTT Specimen Type: PLASMA Comment: Critical Value Reported To: Tomasa Delcid PharmD 01/29/24 @[address] [place] [address]. Critical value report confirmed. Ordering Provider: MERY SAMUEL Report Released Date/Time: Jan 29, 2024 03:00 PM Reporting Lab: [facility] [address] Performing Lab: [facility] [address] HEPARIN APTT 214.6 s HH 48.0-92.0 Jan 29, 2024 06:24 AM [facility] BASIC METABOLIC PANEL+MG Specimen Type: PLASMA No comment entered. Ordering Provider: BASHIR CARVAJAL Report Released Date/Time: Jan 28, 2024 04:36 PM Reporting Lab: [facility] [address] Performing Lab: [facility] [address] CREATININE 1.6 mg/dL H 0.7-1.2 UREA NITROGEN 27 mg/dL H 8-26 GLUCOSE 92 mg/dL 70-100 SODIUM 140 mmol/L 136-145 POTASSIUM 4.2 mmol/L 3.5-5.1 CHLORIDE 110 mmol/L H 98-107 CO2 25 mmol/L 22-29 CALCIUM 8.8 mg/dL 8.4-10.2 MAGNESIUM 2.1 mg/dL 1.6-2.6 ANION GAP 5 mmol/L 5-15 .CREAT EGFR(CKD-EPI) 42 L >60 Jan 28, 2024 05:54 AM [facility] EXTRA PURPLE TUBE Specimen Type: BLOOD No comment entered. Ordering Provider: RODO CHRISTY Report Released Date/Time: Jan 28, 2024 05:54 AM Reporting Lab: [facility] [address] Performing Lab: [facility] [address] EXTRA PURPLE TUBE RECEIVED Jan 28, 2024 05:53 AM [facility] ALBUMIN Specimen Type: PLASMA No comment entered. Ordering Provider: BASHIR CARVAJAL Report Released Date/Time: Jan 27, 2024 04:49 PM Reporting Lab: [facility] [address] Performing Lab: [facility] [address] ALBUMIN 3.5 g/dL 3.5-5.2 Jan 28, 2024 05:53 AM [facility] BASIC METABOLIC PANEL+MG Specimen Type: PLASMA No comment entered. Ordering Provider: BASHIR CARVAJAL Report Released Date/Time: Jan 27, 2024 05:44 PM Reporting Lab: [facility] [address] Performing Lab: [facility] [address] CREATININE 1.4 mg/dL H 0.7-1.2 UREA NITROGEN 28 mg/dL H 8-26 GLUCOSE 92 mg/dL 70-100 SODIUM 140 mmol/L 136-145 POTASSIUM 4.4 mmol/L 3.5-5.1 CHLORIDE 109 mmol/L H 98-107 CO2 23 mmol/L 22-29 CALCIUM 8.8 mg/dL 8.4-10.2 MAGNESIUM 2.1 mg/dL 1.6-2.6 ANION GAP 8 mmol/L 5-15 .CREAT EGFR(CKD-EPI) 49 L >60 Jan 28, 2024 05:52 AM [facility] TROPONIN I, HS Specimen Type: PLASMA Comment: Critical value previously reported on patient. Ordering Provider: BRANDON MEJIA Report Released Date/Time: Jan 27, 2024 09:15 PM Reporting Lab: [facility] [address] Performing Lab: [facility] [address] TROPONIN I, HS 128 HH <35 Jan 28, 2024 12:35 AM [facility] COVID-19 DIAGNOSTIC PANEL (CEPHEID) Specimen Type: NASOPHARYNGEAL Comment: Cepheid GeneXpert (618) Ordering Provider: LUCAS HAWTHORNE Report Released Date/Time: Jan 27, 2024 04:28 PM Reporting Lab: [facility] [address] Performing Lab: [facility] [address] COVID-19 (CEPHEID) Not Detected Not Detected Jan 28, 2024 12:35 AM [facility] HEPARIN APTT Specimen Type: PLASMA Comment: Critical Value Reported To: Deena Oliveros PharmD 01/28/24 @0110 . Critical value report confirmed. Ordering Provider: NATALIE ORDOÑEZ Report Released Date/Time: Jan 27, 2024 07:18 PM Reporting Lab: [facility] [address] Performing Lab: [facility] [address] HEPARIN APTT 133.9 s HH 48.0-92.0 Jan 28, 2024 12:35 AM [facility] TROPONIN I, HS Specimen Type: PLASMA Comment: Critical value previously reported on patient. Ordering Provider: BRANDON MEJIA Report Released Date/Time: Jan 27, 2024 09:15 PM Reporting Lab: [facility] [address] Performing Lab: [facility] [address] TROPONIN I, HS 158 HH <35 Jan 27, 2024 09:22 PM [facility] TROPONIN I, HS Specimen Type: PLASMA Comment: Critical value previously reported on patient. Ordering Provider: BASHIR CARVAJAL Report Released Date/Time: Jan 27, 2024 08:38 PM Reporting Lab: [facility] [address] Performing Lab: [facility] [address] TROPONIN I, HS 146 HH <35 Jan 27, 2024 06:52 PM [facility] TROPONIN I, HS Specimen Type: PLASMA Comment: Critical Value Reported To: Brandon Mejia MD 01/27/24 @[address] [place] [address]. Critical value report confirmed. Ordering Provider: BASHIR CARVAJAL Report Released Date/Time: Jan 27, 2024 04:54 PM Reporting Lab: [facility] [address] Performing Lab: [facility] [address] TROPONIN I, HS 136 HH <35 Jan 27, 2024 06:52 PM [facility] CBC Specimen Type: BLOOD No comment entered. Ordering Provider: BASHIR CARVAJAL Report Released Date/Time: Jan 27, 2024 04:54 PM Reporting Lab: [facility] [address] Performing Lab: [facility] [address] WBC 6.0 4.0-11.0 RBC 3.91 L 4.60-6.20 HGB 12.1 g/dL L 13.5-17.9 HCT 36.5 L 41.0-54.0 MCV 93.4 fL 80.0-100.0 MCH 30.9 pg 27.0-33.0 MCHC 33.2 g/dL 32.0-37.5 PLT 177 150-400 MPV 10.7 fL 9.1-13.0 RDW 12.4 11.5-14.5 Jan 27, 2024 06:52 PM [facility] BASIC METABOLIC PANEL+MG Specimen Type: PLASMA No comment entered. Ordering Provider: BASHIR CARVAJAL Report Released Date/Time: Jan 27, 2024 04:54 PM Reporting Lab: [facility] [address] Performing Lab: [facility] [address] CREATININE 1.3 mg/dL H 0.7-1.2 UREA NITROGEN [...] 14, 2023 11:30 AM VA-TOBACCO FORMER USER [facility] Tobacco Use History This section includes a history of the smoking, or tobacco-related health factors, that were collected on or before the date of the Encounter. The data comes from the ID facility where the Encounter took place. Date/Time Smoking Status/Tobacco Use Comment F acility Dec 14, 2023 11:30 AM VA-TOBACCO QUIT 15 YRS OR MORE [facility] Oct 13, 2022 01:30 PM VA-TOBACCO FORMER USER [facility] Oct 13, 2022 01:30 PM VA-TOBACCO QUIT 15 YRS OR MORE [facility] Jul 27, 2021 10:00 AM VA-TOBACCO FORMER USER [facility] Jul 27, 2021 10:00 AM VA-TOBACCO QUIT 15 YRS OR MORE [facility] Jan 02, 2020 09:00 AM VA-TOBACCO FORMER USER [facility] Jan 02, 2020 09:00 AM VA-TOBACCO QUIT 15 YRS OR MORE [facility] Jul 21, 2018 03:00 PM VA-TOBACCO FORMER USER [facility] Jul 21, 2018 03:00 PM VA-TOBACCO QUIT 15 YRS OR MORE [facility] Dec 24, 2016 08:01 AM FORMER TOBACCO USER 7Y OR GREATE R [facility] Dec 23, 2015 08:23 AM FORMER TOBACCO USE >1Y <7Y [facility] Dec 26, 2014 10:32 AM FORMER TOBACCO USER 7Y OR GREATE R [facility] August 13, 2013 08:22 AM LIFETIME NON-TOBACCO USER [facility] August 30, 2006 08:38 AM FORMER TOBACCO USER 7Y OR GREATE R [facility] Advance Directives: All historical [...] August 30, 2006 ADVANCE DIRECTIVE ARGENIS CRAMER [facility] Pathology Reports: +/- 30 days of [...] COSIGNER: URGENCY: STATUS: COMPLETED $APHDR Reporting Lab: [facility] [CLIA# [id number]] [place] [address] - - - - - - - [...] - PATHOLOGY REPORT Accession No. [id number] - - - - - - - [...] - PATHOLOGY REPORT Accession No. [id number] - - - - - - - [...] Performing Laboratory: Surgical Pathology Report Performed By: [facility] [CLIA# [id number]] [place] [address] $FTR - - - - - - [...] - - MADYSON,GERI NUNEZ STANDARD FORM 515 ID:[id number] SEX:M :[id number] AGE: 88 LOC:[id number] PCP: Sariah Gomes MD /shelly/ JOSE REESE M.D. STAFF PATHOLOGIST Signed: 01/06/2024 11:16 JOSE REESE [facility] Encounter Notes: All associated encounter notes This section contains the clinical notes associated to the Encounter. Date/Time Encounter Note(s) Provider Source Jan 31, 2024 01:00 AM CRITICAL CARE UNIT NOTE: LOCAL TITLE: [facility] INPATIENT FLOWSHEET STANDARD TITLE: CRITICAL CARE UNIT NOTE DATE OF NOTE: JAN 31, 2024@01:00 ENTRY DATE: FEB 01, 2024@14:43 AUTHOR: SPARKLECIS-ARK EXP COSIGNER: URGENCY: STATUS: COMPLETED This is a place barron only. Please see [employer] (RIS) to view document. /es/ CIS-ARK SYSTEM ICU DOCUMENT IMPORT Signed: 02/01/2024 14:43 SYSTEM,7 [employer]ARK [facility] Jan 31, 2024 01:00 AM CRITICAL CARE UNIT NOTE: LOCAL TITLE: [facility] RESPIRATORY THERAPY FLOWSHEET STANDARD TITLE: CRITICAL CARE UNIT NOTE DATE OF NOTE: JAN 31, 2024@01:00 ENTRY DATE: FEB 01, 2024@15:16:54 AUTHOR: SYSTEMCIS-ARK EXP COSIGNER: URGENCY: STATUS: COMPLETED This is a place barron only. Please see [employer] ([employer]) to view document. /es/ CIS-ARK SYSTEM ICU DOCUMENT IMPORT Signed: 02/01/2024 15:16 SYSTEM,CIS-ARK [facility]
--- OUTSIDE RECORDS SUMMARY | 2024-03-10 19:39 | XMS_ITS | Encounter Summary ---
Author Name [facility] [place] Organization [facility] [facility] [place] Address [address] [place] [address] Care Team Providers Care Lead Advisor Name Role Phone SARIAH GOMES Primary Care [...] PART A Sep 09, 2002 PART A [id number] JOAQUIN COUGHLIN S PATIENT MEDICARE (WNR) MEDICARE (M) PART B Sep 09, 2002 PART B [id number] JOAQUIN COUGHLIN S PATIENT MEDICARE (WNR) MEDICARE (M) PART A Sep 09, 2002 PART A [id number] NULLJOAQUIN S PATIENT MEDICARE (WNR) MEDICARE (M) PART B Sep 09, 2002 PART B [id number] JOAQUIN COUGHLIN S PATIENT Selected Encounter This section includes the information on record at OR for the Encounter. Date/Time Encounter Type Encounter Description Reason Pro vider Source Jan 31, 2024 01:01 PM Inpatient Visit EVENT (HISTORICAL) IHE Encounter Template Text not used by OR Plan of Treatment: Future Appointments (+ 6 months) and Future Tests (+/- 45 days) The Plan of Treatment section includes future care activities for the patient from all [facility] This section includes future appointments and future orders which are active, pending or scheduled. Future Appointments This section includes appointments that were scheduled to occur 6 months from the date of the Encounter, up to a maximum of 20 appointments. The data comes from all [facility]. Appointment Date/Time Appointment Type Appointme nt Facility Name Feb 17, 2024 01:00 PM AM[place]ORY - NONE [place] [facility] Feb 21, 2024 10:00 AM AMBULATORY - [facility]ICINE [facility] Feb 24, 2024 12:15 PM AMBULATORY - MEDICINE [facility] Feb 24, 2024 01:00 PM AMBULATORY - MEDICINE [facility] Mar 02, 2024 01:00 PM AMBULATORY - REHAB [facility]ICIN [facility] Apr 26, 2024 10:00 AM AMBULATORY - MEDICINE [facility] Jul 31, 2024 09:20 AM AMBULATORY - SURGERY [facility] Active, Pending, and Scheduled Orders This section includes a listing of several types of active, pending, and scheduled orders, including clinic medications orders, diagnostic test orders, procedure orders and consult orders; where the start date of the order is 45 days before the date of the Encounter or 45 days after the date of theEncounter. The data comes from all [facility]. Test Date/Time Test Type Test Details Facility Name Jan 18, 2024 04:23 PM Consult Order COMMUNITY CARE-ECHOCARDIOGRAPHY Cons Assistant Professor Of Religion's Choice [facility] Jan 19, 2024 12:10 PM Consult Order COMMUNITY CARE-DERMATOLOGY Cons Assistant Professor Of Religion's [facility] Jan 28, 2024 02:00 AM Laboratory - Chemi stry Order TROPONIN I, HS PLASMA STAT [facility] Mar 01, 2024 03:28 PM Consult Order IFC TRAVEL ING [facility]IV[facility]AL CONSULT-[facility] Cons Assistant Professor Of Religion's Choice [facility] Lab Results: +/- 30 days of [...] 2024 10:13 AM Reporting Lab: [facility] [address] Performing Lab: [facility] [address] HEMOGLOBIN A1C 5.4 4.0-6.0 Jan 31, 2024 10:[address] [facility] LIPID PANEL,FASTING Specimen Type: PLASMA No comment entered. Ordering Provider: JULIET SMART Report Released Date/Time: Jan 31, 2024 10:13 AM Reporting Lab: [facility] [address] Performing Lab: [facility] [address] CHOLESTEROL 125 mg/dL <199 TRIGLYCERIDE 95 mg/dL <149 .HDL 37 mg/dL L >40 LDL CALCULATION 69 mg/dL <99 VLDL CALCULATION 19 mg/dL <29 NON HDL CHOLESTEROL 88 mg/dL <129 Jan 31, 2024 07:[address] [facility] CBC Specimen Type: BLOOD No comment entered. Ordering Provider: BASHIR CARVAJAL Report Released Date/Time: Jan 30, 2024 01:03 PM Reporting Lab: [facility] [address] Performing Lab: [facility] [address] WBC 7.3 4.0-11.0 RBC 3.83 L 4.60-6.20 [...] 2024 01:03 PM Reporting Lab: [facility] [address] Performing Lab: [facility] [address] CREATININE 1.3 mg/dL H 0.7-1.2 UREA NITROGEN [...] 2024 10:43 AM Reporting Lab: [facility] [address] Performing Lab: [facility] [address] POC ACT 241 s H 84-139 Jan 30, 2024 10:[address] [facility] POC ACT Specimen Type: BLOOD No comment entered. Ordering Provider: RODO CHRISTY Report Released Date/Time: Jan 30, 2024 10:14 AM Reporting Lab: [facility] [address] Performing Lab: [facility] [address] POC ACT 289 s H 84-139 Jan 30, 2024 09:[address] [facility] POC ACT Specimen Type: BLOOD No comment entered. Ordering Provider: RODO CHRISTY Report Released Date/Time: Jan 30, 2024 10:14 AM Reporting Lab: [facility] [address] Performing Lab: [facility] [address] POC ACT 294 s H 84-139 Jan 30, 2024 05:[address] [facility] HEPARIN APTT Specimen Type: PLASMA No comment entered. Ordering Provider: BASHIR CARVAJAL Report Released Date/Time: Jan 29, 2024 09:43 PM Reporting Lab: [facility] [address] Performing Lab: [facility] [address] HEPARIN APTT 83.2 s 48.0-92.0 Jan 30, 2024 05:[address] [facility] BASIC METABOLIC PANEL+MG Specimen Type: PLASMA No comment entered. Ordering Provider: BASHIR CARVAJAL Report Released Date/Time: Jan 29, 2024 12:19 PM Reporting Lab: [facility] [address] Performing Lab: [facility] [address] CREATININE 1.4 mg/dL H 0.7-1.2 UREA NITROGEN [...] Value Reported To: Tomasa Delcid PharmD 01/29/24 @[address] [place] [address]. Critical value report confirmed. Ordering Provider: MERY SAMUEL Report Released Date/Time: Jan 29, 2024 03:00 PM Reporting Lab: [facility] [address] Performing Lab: [facility] [address] HEPARIN APTT 214.6 s HH 48.0-92.0 Jan 29, 2024 06:[address] [facility] BASIC METABOLIC PANEL+MG Specimen Type: PLASMA No comment entered. Ordering Provider: BASHIR CARVAJAL Report Released Date/Time: Jan 28, 2024 04:36 PM Reporting Lab: [facility] [address] Performing Lab: [facility] [address] CREATININE 1.6 mg/dL H 0.7-1.2 UREA NITROGEN [...] 2024 05:54 AM Reporting Lab: [facility] [address] Performing Lab: [facility] [address] EXTRA PURPLE TUBE RECEIVED Jan 28, 2024 05:[address] [facility] ALBUMIN Specimen Type: PLASMA No comment entered. Ordering Provider: BASHIR CARVAJAL Report Released Date/Time: Jan 27, 2024 04:49 PM Reporting Lab: [facility] [address] Performing Lab: [facility] [address] ALBUMIN 3.5 g/dL 3.5-5.2 Jan 28, 2024 05:[address] [facility] BASIC METABOLIC PANEL+MG Specimen Type: PLASMA No comment entered. Ordering Provider: BASHIR CARVAJAL Report Released Date/Time: Jan 27, 2024 05:44 PM Reporting Lab: [facility] [address] Performing Lab: [facility] [address] CREATININE 1.4 mg/dL H 0.7-1.2 UREA NITROGEN [...] 2024 09:15 PM Reporting Lab: [facility] [address] Performing Lab: [facility] [address] TROPONIN I, HS 128 HH <35 Jan 28, 2024 12:[address] [facility] COVID-19 DIAGNOSTIC PANEL (CEPHEID) Specimen Type: NASOPHARYNGEAL Comment: Cepheid GeneXpert (618) Ordering Provider: LUCAS HAWTHORNE Report Released Date/Time: Jan 27, 2024 04:28 PM Reporting Lab: [facility] [address] Performing Lab: [facility] [address] COVID-19 (CEPHEID) Not Detected Not Detected Jan 28, 2024 12:[address] [facility] HEPARIN APTT Specimen Type: PLASMA Comment: Critical Value Reported To: Deena Oliveros PharmD 01/28/24 @0110 . Critical value report confirmed. Ordering Provider: NATALIE ORDOÑEZ Report Released Date/Time: Jan 27, 2024 07:18 PM Reporting Lab: [facility] [address] Performing Lab: [facility] [address] HEPARIN APTT 133.9 s HH 48.0-92.0 Jan 28, 2024 12:[address] [facility] TROPONIN I, HS Specimen Type: PLASMA Comment: Critical value previously reported on patient. Ordering Provider: BRANDON MEJIA Report Released Date/Time: Jan 27, 2024 09:15 PM Reporting Lab: [facility] [address] Performing Lab: [facility] [address] TROPONIN I, HS 158 HH <35 Jan 27, 2024 09:[address] [facility] TROPONIN I, HS Specimen Type: PLASMA Comment: Critical value previously reported on patient. Ordering Provider: BASHIR CARVAJAL Report Released Date/Time: Jan 27, 2024 08:38 PM Reporting Lab: [facility] [address] Performing Lab: [facility] [address] TROPONIN I, HS 146 HH <35 Jan 27, 2024 06:[address] [facility] TROPONIN I, HS Specimen Type: PLASMA Comment: Critical Value Reported To: Brandon Mejia MD 01/27/24 @[address] [place] [address]. Critical value report confirmed. Ordering Provider: BASHIR CARVAJAL Report Released Date/Time: Jan 27, 2024 04:54 PM Reporting Lab: [facility] [address] Performing Lab: [facility] [address] TROPONIN I, HS 136 HH <35 Jan 27, 2024 06:[address] [facility] CBC Specimen Type: BLOOD No comment entered. Ordering Provider: BASHIR CARVAJAL Report Released Date/Time: Jan 27, 2024 04:54 PM Reporting Lab: [facility] [address] Performing Lab: [facility] [address] WBC 6.0 4.0-11.0 RBC 3.91 L 4.60-6.20 [...] 2024 04:54 PM Reporting Lab: [facility] [address] Performing Lab: [facility] [address] CREATININE 1.3 mg/dL H 0.7-1.2 UREA NITROGEN [...] comes from all [facility]. Date Advance Directives Provider Source August [...] $APHDR Reporting Lab: [facility] [CLIA# [id number]] [place] [address] - - - - - - - [...] - PATHOLOGY REPORT Accession No. [id number] - - - - - - - [...] - PATHOLOGY REPORT Accession No. [id number] - - - - - - - [...] cm. The specimen is inked. CE. (D)[facility] MICROSCOPIC DESCRIPTION: Microscopic examination [...] Report Performed By: [facility] [CLIA# [id number]] [place] [address] $FTR - - - - - - [...] - - MADYSON,GERI NUNEZ STANDARD FORM 515 ID:[id number] SEX:M :1935 AGE: 88 LOC:61409 PCP: Sariah Gomes MD /shelly/ JOSE REESE M.D. STAFF PATHOLOGIST Signed: 01/06/2024 11:[address] [facility]
--- OUTSIDE RECORDS SUMMARY | 2024-03-10 19:39 | XMS_ITS ---
[place] DAILY HOSPITALIZATION DATA [facility] Encounter Summary Created on: March 10, 2024 GERI COUGHLIN : 1935 Sex: Male Author Name [facility] [place] Address [address] [place] [address] Care Team Providers Care Irrigation Specialist Name Role Phone SARIAH GOMES Primary [...] PART A Sep 09, 2002 PART A [id number] JOAQUIN COUGHLIN S PATIENT MEDICARE (WNR) MEDICARE (M) PART B Sep 09, 2002 PART B [id number] JOAQUIN COUGHLIN S PATIENT MEDICARE (WNR) MEDICARE (M) PART A Sep 09, 2002 PART A [id number] JOAQUIN COUGHLIN S PATIENT MEDICARE (WNR) MEDICARE (M) PART B Sep 09, 2002 PART B [id number] JOAQUIN COUGHLIN S PATIENT [...] activities for the patient from all [place] [facility] This section includes future appointments and future orders which are active, pending or scheduled. Future Appointments This section includes appointments that were scheduled to occur 6 months from the date of the Encounter, up to a maximum of 20 appointments. The data comes from all [place] [facility]. Appointment Date/Time Appointment Type Appointme nt Facility Name Feb 17, 2024 01:00 PM AM[place]ATORY - [place]ONE [place] [facility] Feb 21, 2024 10:00 AM AMBULATORY - MEDICINE [facility] Feb 24, 2024 12:15 PM AMBULATORY - MEDICINE [facility] Feb 24, 2024 01:00 PM AMBULATORY - MEDICINE [facility] Mar 02, 2024 01:00 PM AMBULATORY - REHAB MEDICIN [facility] Apr 26, 2024 10:00 AM AMBULATORY - MEDICINE [facility] Active, Pending, and Scheduled Orders This section includes a listing of several types of active, pending, and scheduled orders, including clinic medications orders, diagnostic test orders, procedure orders and consult orders; where the start date of the order is 45 days before the date of the Encounter or 45 days after the date of theEncounter. The data comes from all [place] [facility]. Test Date/Time Test Type Test Details Facility Name Jan 18, 2024 04:23 PM Consult Order COMMUNITY CARE-ECHOCARDIOGRAPHY Cons Quality Control's Choice [facility] Jan 19, 2024 12:10 PM Consult Order COMMUNITY CARE-DERMATOLOGY Cons Quality Control's [facility] Jan 28, 2024 02:00 AM Laboratory - Chemi stry Order TROPONIN I, HS PLASMA STAT [facility] Mar 01, 2024 03:28 PM Consult Order IFC TRAVEL ING UNIVERSAL CONSULT-[place] Cons Quality Control's Choice [facility] Lab Results: +/- 30 days of [...] Jan 31, 2024 10:13 AM Reporting Lab: [facility] [address] Performing Lab: [facility] [address] HEMOGLOBIN A1C 5.4 4.0-6.0 Jan 31, 2024 10:50 AM [facility] LIPID PANEL,FASTING Specimen Type: PLASMA No comment entered. Ordering Provider: JULIET SMART Report Released Date/Time: Jan 31, 2024 10:13 AM Reporting Lab: [facility] [address] Performing Lab: [facility] [address] CHOLESTEROL 125 mg/dL <199 TRIGLYCERIDE 95 mg/dL <149 .HDL 37 mg/dL L >40 LDL CALCULATION 69 mg/dL <99 VLDL CALCULATION 19 mg/dL <29 NON HDL CHOLESTEROL 88 mg/dL <129 Jan 31, 2024 07:29 AM [facility] CBC Specimen Type: BLOOD No comment entered. Ordering Provider: BASHIR CARVAJAL Report Released Date/Time: Jan 30, 2024 01:03 PM Reporting Lab: [facility] [address] Performing Lab: [facility] [address] WBC 7.3 4.0-11.0 RBC 3.83 L 4.60-6.20 [...] Jan 30, 2024 01:03 PM Reporting Lab: [facility] [address] Performing Lab: [facility] [address] CREATININE 1.3 mg/dL H 0.7-1.2 UREA NITROGEN [...] Jan 30, 2024 10:43 AM Reporting Lab: [facility] [address] Performing Lab: [facility] [address] POC ACT 241 s H 84-139 Jan 30, 2024 10:08 AM [facility] POC ACT Specimen Type: BLOOD No comment entered. Ordering Provider: RODO CHRISTY Report Released Date/Time: Jan 30, 2024 10:14 AM Reporting Lab: [facility] [address] Performing Lab: [facility] [address] POC ACT 289 s H 84-139 Jan 30, 2024 09:34 AM [facility] POC ACT Specimen Type: BLOOD No comment entered. Ordering Provider: RODO CHRISTY Report Released Date/Time: Jan 30, 2024 10:14 AM Reporting Lab: [facility] [address] Performing Lab: [facility] [address] POC ACT 294 s H 84-139 Jan 30, 2024 05:37 AM [facility] HEPARIN APTT Specimen Type: PLASMA No comment entered. Ordering Provider: BASHIR CARVAJAL Report Released Date/Time: Jan 29, 2024 09:43 PM Reporting Lab: [facility] [address] Performing Lab: [facility] [address] HEPARIN APTT 83.2 s 48.0-92.0 Jan 30, 2024 05:37 AM [facility] BASIC METABOLIC PANEL+MG Specimen Type: PLASMA No comment entered. Ordering Provider: BASHIR CARVAJAL Report Released Date/Time: Jan 29, 2024 12:19 PM Reporting Lab: [facility] [address] Performing Lab: [facility] [address] CREATININE 1.4 mg/dL H 0.7-1.2 UREA NITROGEN [...] Value Reported To: Tomasa Delcid PharmD 01/29/24 @[address] [place] [address]. Critical value report confirmed. Ordering Provider: MERY SAMUEL Report Released Date/Time: Jan 29, 2024 03:00 PM Reporting Lab: [facility] [address] Performing Lab: [facility] [address] HEPARIN APTT 214.6 s HH 48.0-92.0 Jan 29, 2024 06:24 AM [facility] BASIC METABOLIC PANEL+MG Specimen Type: PLASMA No comment entered. Ordering Provider: BASHIR CARVAJAL Report Released Date/Time: Jan 28, 2024 04:36 PM Reporting Lab: [facility] [address] Performing Lab: [facility] [address] CREATININE 1.6 mg/dL H 0.7-1.2 UREA NITROGEN [...] Jan 28, 2024 05:54 AM Reporting Lab: [facility] [address] Performing Lab: [facility] [address] EXTRA PURPLE TUBE RECEIVED Jan 28, 2024 05:53 AM [facility] ALBUMIN Specimen Type: PLASMA No comment entered. Ordering Provider: BASHIR CARVAJAL Report Released Date/Time: Jan 27, 2024 04:49 PM Reporting Lab: [facility] [address] Performing Lab: [facility] [address] ALBUMIN 3.5 g/dL 3.5-5.2 Jan 28, 2024 05:53 AM [facility] BASIC METABOLIC PANEL+MG Specimen Type: PLASMA No comment entered. Ordering Provider: BASHIR CARVAJAL Report Released Date/Time: Jan 27, 2024 05:44 PM Reporting Lab: [facility] [address] Performing Lab: [facility] [address] CREATININE 1.4 mg/dL H 0.7-1.2 UREA NITROGEN [...] Jan 27, 2024 09:15 PM Reporting Lab: [facility] [address] Performing Lab: [facility] [address] TROPONIN I, HS 128 HH <35 Jan 28, 2024 12:35 AM [facility] COVID-19 DIAGNOSTIC PANEL (CEPHEID) Specimen Type: NASOPHARYNGEAL Comment: Cepheid GeneXpert (618) Ordering Provider: LUCAS HAWTHORNE Report Released Date/Time: Jan 27, 2024 04:28 PM Reporting Lab: [facility] [address] Performing Lab: [facility] [address] COVID-19 (CEPHEID) Not Detected Not Detected Jan 28, 2024 12:35 AM [facility] HEPARIN APTT Specimen Type: PLASMA Comment: Critical Value Reported To: Deena Oliveros PharmD 01/28/24 @0110 HV. Critical value report confirmed. Ordering Provider: NATALIE ORDOÑEZ Report Released Date/Time: Jan 27, 2024 07:18 PM Reporting Lab: [facility] [address] Performing Lab: [facility] [address] HEPARIN APTT 133.9 s HH 48.0-92.0 Jan 28, 2024 12:35 AM [facility] TROPONIN I, HS Specimen Type: PLASMA Comment: Critical value previously reported on patient. Ordering Provider: BRANDON MEJIA Report Released Date/Time: Jan 27, 2024 09:15 PM Reporting Lab: [facility] [address] Performing Lab: [facility] [address] TROPONIN I, HS 158 HH <35 Jan 27, 2024 09:22 PM [facility] TROPONIN I, HS Specimen Type: PLASMA Comment: Critical value previously reported on patient. Ordering Provider: BASHIR CARVAJAL Report Released Date/Time: Jan 27, 2024 08:38 PM Reporting Lab: [facility] [address] Performing Lab: [facility] [address] TROPONIN I, HS 146 HH <35 Jan 27, 2024 06:52 PM [facility] TROPONIN I, HS Specimen Type: PLASMA Comment: Critical Value Reported To: Brandon Mejia MD 01/27/24 @1950 [place]. Critical value report confirmed. Ordering Provider: BASHIR CARVAJAL Report Released Date/Time: Jan 27, 2024 04:54 PM Reporting Lab: [facility] [address] Performing Lab: [facility] [address] TROPONIN I, HS 136 HH <35 Jan 27, 2024 06:52 PM [facility] CBC Specimen Type: BLOOD No comment entered. Ordering Provider: BASHIR CARVAJAL Report Released Date/Time: Jan 27, 2024 04:54 PM Reporting Lab: [facility] [address] Performing Lab: [facility] [address] WBC 6.0 4.0-11.0 RBC 3.91 L 4.60-6.20 [...] Jan 27, 2024 04:54 PM Reporting Lab: [facility] [address] Performing Lab: [facility] [address] CREATININE 1.3 mg/dL H 0.7-1.2 UREA NITROGEN [...] 2024 08:00 AM 148.37 23 HEIDY SOLIS [facility] Social History: Smoking Status (Most current) [...] $APHDR Reporting Lab: [facility] [CLIA# [id number]] [place] [address] - - - - - - - [...] - PATHOLOGY REPORT Accession No. [id number] - - - - - - - [...] - PATHOLOGY REPORT Accession No. [id number] - - - - - - - [...] cm. The specimen is inked. CE. (D)[facility] MICROSCOPIC DESCRIPTION: Microscopic [...] Report Performed By: [facility] [CLIA# [id number]] [place] [address] $FTR - - - - - - [...] - - MADYSON,GERI NUNEZ STANDARD FORM 515 ID:[id number] SEX:M :1935 AGE: 88 LOC:74563 PCP: Sariah Gomes MD /shelly/ JOSE REESE M.D. STAFF PATHOLOGIST Signed: 01/06/2024 11:16 JOSE REESE [facility]
--- OUTSIDE RECORDS SUMMARY | 2024-03-10 19:39 | XMS_ITS | Encounter Summary ---
Author Name [facility] [place] [facility] [place] [facility] [place] Address [address] [place] [address] Care Team Providers Care Geospatial Program Management Officer Name Role Phone SARIAH GOMES Primary Care [...] PART A Sep 09, 2002 PART A [id number] MADYSON,JOAQUIN S PATIENT MEDICARE (WNR) MEDICARE (M) PART B Sep 09, 2002 PART B [id number] NULL,JOAQUIN S PATIENT MEDICARE (WNR) MEDICARE (M) PART B Sep 09, 2002 PART B [id number] NULL,JOAQUIN S PATIENT MEDICARE (WNR) MEDICARE (M) PART A Sep 09, 2002 PART A [id number] NULL,JOAQUIN S PATIENT Selected Encounter This section includes the information on record at [place] for the Encounter. Date/Time Encounter Type Encounter Description Reason Pro vider Source Jan 30, 2024 01:00 AM Inpatient Visit ADMIN PAT ACTIVTIES (MASNONCT) SYSTEM,CIS-ARK IHE Encounter Template Text not used by [place] Plan of Treatment: Future Appointments (+ 6 months) and Future Tests (+/- 45 days) The Plan of Treatment section includes future care activities for the patient [facility] [place] [facility] This section includes future appointments and future orders which are active, pending or scheduled. Future Appointments This section includes appointments that were scheduled to occur 6 months from the date of the Encounter, up to a maximum of 20 appointments. The data comes from all [place] treatment [facility]. Appointment Date/Time Appointment Type Appointme nt Facility Name Feb 17, 2024 01:00 PM AMBUL[facility]ORY - NONE [place] [facility] Feb 21, 2024 10:00 AM AMBULATORY - MEDICINE [facility] Feb 24, 2024 12:15 PM AMBULATORY - MEDICINE [facility] Feb 24, 2024 01:00 PM AMBULATORY - MEDICINE [facility] Mar 02, 2024 01:00 PM AMBULATORY - REHAB [facility] Apr 26, 2024 10:00 AM AMBULATORY - MEDICINE [facility] Active, Pending, and [...] The data comes from all [facility]. Test Date/Time Test Type Test Details Facility Name Jan 18, 2024 04:23 PM Consult Order COMMUNITY CARE-ECHOCARDIOGRAPHY [facility] Jan 19, 2024 12:10 PM Consult Order COMMUNITY CARE-DERMATOLOGY [facility] Jan 28, 2024 02:00 AM Laboratory - Chemi stry Order TROPONIN I, HS PLASMA STAT [facility] Mar 01, 2024 03:28 PM Consult Order IFC TRAVEL ING UNIVERSAL CONSULT-WELLS TANNERY Cons [facility] Lab Results: +/- 30 days of the encounter This section includes the Chemistry and Hematology Lab Results on record with [place] for the patient. Radiology Reports and Pathology Reports are provided separately, in subsequent sections. Lab Results This section contains the Chemistry/Hematology Results that were resulted 30 days before or 30 daysafter the date of the Encounter. Date/Time Source Result Type Result - Unit Interpretation Reference Range Comment Jan 31, 2024 10:50 AM [facility] HEMOGLOBIN A1C Specimen Type: BLOOD Comment: [...] 2024 10:13 AM Reporting Lab: [facility] [phone] Performing Lab: [facility] [phone] HEMOGLOBIN A1C 5.4 4.0-6.0 Jan 31, 2024 10:50 AM [facility] LIPID PANEL,FASTING Specimen Type: PLASMA No comment entered. Ordering Provider: JULIET SMART Report Released Date/Time: Jan 31, 2024 10:13 AM Reporting Lab: [facility] [id number] Performing Lab: [facility] [phone] CHOLESTEROL 125 mg/dL <199 TRIGLYCERIDE 95 mg/dL <149 .HDL 37 mg/dL L >40 LDL CALCULATION 69 mg/dL <99 VLDL CALCULATION 19 mg/dL <29 NON HDL CHOLESTEROL 88 mg/dL <129 Jan 31, 2024 07:29 AM [facility] CBC Specimen Type: BLOOD No comment entered. Ordering Provider: BASHIR CARVAJAL Report Released Date/Time: Jan 30, 2024 01:03 PM Reporting Lab: [facility] [phone] Performing Lab: [facility] [phone] WBC 7.3 4.0-11.0 RBC 3.83 L 4.60-6.20 HGB 11.4 g/dL L 13.5-17.9 HCT 35.1 L 41.0-54.0 MCV 91.6 fL 80.0-100.0 MCH 29.8 pg 27.0-33.0 MCHC 32.5 g/dL 32.0-37.5 PLT 193 150-400 MPV 10.7 fL 9.1-13.0 RDW 12.2 11.5-14.5 Jan 31, 2024 07:29 AM [facility] BASIC METABOLIC PANEL+MG Specimen Type: PLASMA No comment entered. Ordering Provider: BASHIR CARVAJAL Report Released Date/Time: Jan 30, 2024 01:03 PM Reporting Lab: [facility] [phone] Performing Lab: [facility] [phone] CREATININE 1.3 mg/dL H 0.7-1.2 UREA NITROGEN 24 mg/dL 8-26 GLUCOSE 91 mg/dL 70-100 SODIUM 138 mmol/L 136-145 POTASSIUM 4.1 mmol/L 3.5-5.1 CHLORIDE 108 mmol/L H 98-107 CO2 23 mmol/L 22-29 CALCIUM 8.8 mg/dL 8.4-10.2 MAGNESIUM 2.1 mg/dL 1.6-2.6 ANION GAP 7 mmol/L 5-15 .CREAT EGFR(CKD-EPI) 54 L >60 Jan 30, 2024 10:37 AM [facility] POC ACT Specimen Type: BLOOD No comment entered. Ordering Provider: RODO CHRISTY Report Released Date/Time: Jan 30, 2024 10:43 AM Reporting Lab: [facility] [phone] Performing Lab: [facility] [phone] POC ACT 241 s H 84-139 Jan 30, 2024 10:08 AM [facility] POC ACT Specimen Type: BLOOD No comment entered. Ordering Provider: RODO CHRISTY Report Released Date/Time: Jan 30, 2024 10:14 AM Reporting Lab: [facility] [phone] Performing Lab: [facility] [phone] POC ACT 289 s H 84-139 Jan 30, 2024 09:34 AM [facility] POC ACT Specimen Type: BLOOD No comment entered. Ordering Provider: RODO CHRISTY Report Released Date/Time: Jan 30, 2024 10:14 AM Reporting Lab: [facility] [phone] Performing Lab: [facility] [phone] POC ACT 294 s H 84-139 Jan 30, 2024 05:37 AM [facility] HEPARIN APTT Specimen Type: PLASMA No comment entered. Ordering Provider: BASHIR CARVAJAL Report Released Date/Time: Jan 29, 2024 09:43 PM Reporting Lab: [facility] [phone] Performing Lab: [facility] [phone] HEPARIN APTT 83.2 s 48.0-92.0 Jan 30, 2024 05:37 AM [facility] BASIC METABOLIC PANEL+MG Specimen Type: PLASMA No comment entered. Ordering Provider: BASHIR CARVAJAL Report Released Date/Time: Jan 29, 2024 12:19 PM Reporting Lab: [facility] [phone] Performing Lab: [facility] [phone] CREATININE 1.4 mg/dL H 0.7-1.2 UREA NITROGEN 27 mg/dL H 8-26 GLUCOSE 95 mg/dL 70-100 SODIUM 139 mmol/L 136-145 POTASSIUM 4.2 mmol/L 3.5-5.1 CHLORIDE 109 mmol/L H 98-107 CO2 24 mmol/L 22-29 CALCIUM 9.0 mg/dL 8.4-10.2 MAGNESIUM 2.1 mg/dL 1.6-2.6 ANION GAP 6 mmol/L 5-15 .CREAT EGFR(CKD-EPI) 49 L >60 Jan 29, 2024 09:02 PM [facility] HEPARIN APTT Specimen Type: PLASMA Comment: Critical Value Reported To: Tomasa Delcid PharmD 01/29/24 @[address] [place] [address]. Critical value report confirmed. Ordering Provider: MERY SAMUEL Report Released Date/Time: Jan 29, 2024 03:00 PM Reporting Lab: [facility] [phone] Performing Lab: [facility] [phone] HEPARIN APTT 214.6 s HH 48.0-92.0 Jan 29, 2024 06:24 AM [facility] BASIC METABOLIC PANEL+MG Specimen Type: PLASMA No comment entered. Ordering Provider: BASHIR CARVAJAL Report Released Date/Time: Jan 28, 2024 04:36 PM Reporting Lab: [facility] [phone] Performing Lab: [facility] [phone] CREATININE 1.6 mg/dL H 0.7-1.2 UREA NITROGEN 27 mg/dL H 8-26 GLUCOSE 92 mg/dL 70-100 SODIUM 140 mmol/L 136-145 POTASSIUM 4.2 mmol/L 3.5-5.1 CHLORIDE 110 mmol/L H 98-107 CO2 25 mmol/L 22-29 CALCIUM 8.8 mg/dL 8.4-10.2 MAGNESIUM 2.1 mg/dL 1.6-2.6 ANION GAP 5 mmol/L 5-15 .CREAT EGFR(CKD-EPI) 42 L >60 Jan 28, 2024 05:54 AM [facility] EXTRA PURPLE TUBE Specimen Type: BLOOD No comment entered. Ordering Provider: RODO CHRISTY Report Released Date/Time: Jan 28, 2024 05:54 AM Reporting Lab: [facility] [phone] Performing Lab: [facility] [phone] EXTRA PURPLE TUBE RECEIVED Jan 28, 2024 05:53 AM [facility] ALBUMIN Specimen Type: PLASMA No comment entered. Ordering Provider: BASHIR CARVAJAL Report Released Date/Time: Jan 27, 2024 04:49 PM Reporting Lab: [facility] [phone] Performing Lab: [facility] [phone] ALBUMIN 3.5 g/dL 3.5-5.2 Jan 28, 2024 05:53 AM [facility] BASIC METABOLIC PANEL+MG Specimen Type: PLASMA No comment entered. Ordering Provider: BASHIR CARVAJAL Report Released Date/Time: Jan 27, 2024 05:44 PM Reporting Lab: [facility] [phone] Performing Lab: [facility] [phone] CREATININE 1.4 mg/dL H 0.7-1.2 UREA NITROGEN 28 mg/dL H 8-26 GLUCOSE 92 mg/dL 70-100 SODIUM 140 mmol/L 136-145 POTASSIUM 4.4 mmol/L 3.5-5.1 CHLORIDE 109 mmol/L H 98-107 CO2 23 mmol/L 22-29 CALCIUM 8.8 mg/dL 8.4-10.2 MAGNESIUM 2.1 mg/dL 1.6-2.6 ANION GAP 8 mmol/L 5-15 .CREAT EGFR(CKD-EPI) 49 L >60 Jan 28, 2024 05:52 AM [facility] TROPONIN I, HS Specimen Type: PLASMA Comment: Critical value previously reported on patient. Ordering Provider: BRANDON MEJIA Report Released Date/Time: Jan 27, 2024 09:15 PM Reporting Lab: [facility] [phone] Performing Lab: [facility] [phone] TROPONIN I, HS 128 HH <35 Jan 28, 2024 12:35 AM [facility] COVID-19 DIAGNOSTIC PANEL (CEPHEID) Specimen Type: NASOPHARYNGEAL Comment: Cepheid GeneXpert (618) Ordering Provider: LUCAS HAWTHORNE Report Released Date/Time: Jan 27, 2024 04:28 PM Reporting Lab: [facility] [phone] Performing Lab: [facility] [phone] COVID-19 (CEPHEID) Not Detected Not Detected Jan 28, 2024 12:35 AM [facility] HEPARIN APTT Specimen Type: PLASMA Comment: Critical Value Reported To: Deena Oliveros PharmD 01/28/24 @0110 HV. Critical value report confirmed. Ordering Provider: NATALIE ORDOÑEZ Report Released Date/Time: Jan 27, 2024 07:18 PM Reporting Lab: [facility] [phone] Performing Lab: [facility] [phone] HEPARIN APTT 133.9 s HH 48.0-92.0 Jan 28, 2024 12:35 AM [facility] TROPONIN I, HS Specimen Type: PLASMA Comment: Critical value previously reported on patient. Ordering Provider: BRANDON MEJIA Report Released Date/Time: Jan 27, 2024 09:15 PM Reporting Lab: [facility] [phone] Performing Lab: [facility] [phone] TROPONIN I, HS 158 HH <35 Jan 27, 2024 09:22 PM [facility] TROPONIN I, HS Specimen Type: PLASMA Comment: Critical value previously reported on patient. Ordering Provider: BASHIR CARVAJAL Report Released Date/Time: Jan 27, 2024 08:38 PM Reporting Lab: [facility] [phone] Performing Lab: [facility] [phone] TROPONIN I, HS 146 HH <35 Jan 27, 2024 06:52 PM [facility] TROPONIN I, HS Specimen Type: PLASMA Comment: Critical Value Reported To: Brandon Mejia MD 01/27/24 @[address] [place] [address]. Critical value report confirmed. Ordering Provider: BASHIR CARVAJAL Report Released Date/Time: Jan 27, 2024 04:54 PM Reporting Lab: [facility] [phone] Performing Lab: [facility] [phone] TROPONIN I, HS 136 HH <35 Jan 27, 2024 06:52 PM [facility] BASIC METABOLIC PANEL+MG Specimen Type: PLASMA No comment entered. Ordering Provider: BASHIR CARVAJAL Report Released Date/Time: Jan 27, 2024 04:54 PM Reporting Lab: [facility] [address] Performing Lab: [facility] [phone] CREATININE 1.3 mg/dL H 0.7-1.2 UREA NITROGEN 30 mg/dL H 8-26 GLUCOSE 141 mg/dL H 70-100 SODIUM 142 mmol/L 136-145 POTASSIUM 3.4 mmol/L L 3.5-5.1 CHLORIDE 106 mmol/L 98-107 CO2 27 mmol/L 22-29 CALCIUM 8.8 mg/dL 8.4-10.2 MAGNESIUM 2.2 mg/dL 1.6-2.6 ANION GAP 9 mmol/L 5-15 .CREAT EGFR(CKD-EPI) 54 L >60 Jan 27, 2024 06:52 PM [facility] CBC Specimen Type: BLOOD No comment entered. Ordering Provider: BASHIR CARVAJAL Report Released Date/Time: Jan 27, 2024 04:54 PM Reporting Lab: [facility] [phone] Performing Lab: [facility] [phone] WBC 6.0 4.0-11.0 RBC 3.91 L 4.60-6.20 [...] 30, 2024 08:00 AM 148.37 23 [facility] Social History: Smoking Status (Most current) and Tobacco Use (All prior to encounter date) This section includes the most current, and the historical, smoking and tobacco- related health factors from the [place] facility where the Encounter took place. Current Smoking Status This section includes the most current smoking, or tobacco-related health factor, from the [place] facility where the Encounter took place. Date/Time Current Smoking Status Comment Facil ity Dec 14, 2023 11:30 AM VA-TOBACCO FORMER USER [facility] Tobacco Use History This section includes a history of the smoking, or tobacco-related health factors, that were collected on or before the date of the Encounter. The data comes from the [place] facility where the Encounter took place. Date/Time Smoking Status/Tobacco Use Comment F acility Dec 14, 2023 11:30 AM VA-TOBACCO QUIT 15 YRS OR MORE [facility] Oct 13, 2022 01:30 PM VA-TOBACCO FORMER USER [facility] Oct 13, 2022 01:30 PM VA-TOBACCO QUIT 15 YRS OR MORE [facility] Jul 27, 2021 10:00 AM VA-TOBACCO FORMER USER [facility] Jul 27, 2021 10:00 AM VA-TOBACCO QUIT 15 YRS OR MORE [facility] Jan 02, 2020 09:00 AM VA-TOBACCO FORMER USER [facility] Jan 02, 2020 09:00 AM VA-TOBACCO QUIT 15 YRS OR MORE [facility] Jul 21, 2018 03:00 PM VA-TOBACCO FORMER USER [facility] Jul 21, 2018 03:00 PM VA-TOBACCO QUIT 15 YRS OR MORE [facility] Dec 24, 2016 08:01 AM FORMER TOBACCO USER 7Y OR GREATE R [facility] Dec 23, 2015 08:23 AM FORMER TOBACCO USE >1Y <7Y [facility] Dec 26, 2014 10:32 AM FORMER TOBACCO USER 7Y OR GREATE R [facility] August 13, 2013 08:22 AM LIFETIME NON-TOBACCO USER [facility] August 30, 2006 08:38 AM FORMER TOBACCO USER 7Y OR GREATE R [facility] Advance Directives: All historical and current Section Date Range: From patient's date of to the date document was created. This section includes ALL of a patient's completed or amended [place] Advance and Rescinded Directives. The entries below indicate that a directive exists for the patient, but an actual copy is not included with this document. The data comes from all [place] facilities. Date Advance Directives Provider Source August 30, 2006 ADVANCE DIRECTIVE [facility]ARGENIS [facility] Pathology Reports: +/- 30 days [...] the Encounter. The data comes from all [place] treatment facilities. Date/Time Pathology Report Provider Source Jan 06, 2024 11:16 AM LR SURGICAL PATHOL OGY REPORT: LOCAL TITLE: LR SURGICAL PATHOLOGY REPORT STANDARD TITLE: PATHOLOGY REPORT DATE OF NOTE: JAN 06, 2024@11:16:39 ENTRY DATE: JAN 06, 2024@11:16:39 AUTHOR: JOSE REESE COSIGNER: URGENCY: STATUS: COMPLETED $APHDR Reporting Lab: [facility] [CLIA# [id number]] [place] [address] - - - - - - - [...] - PATHOLOGY REPORT Accession No. [id number] - - - - - - - [...] - PATHOLOGY REPORT Accession No. [id number] - - - - - - - [...] Performing Laboratory: Surgical Pathology Report Performed By: [facility] [CLIA# [id number]] [place] [address] $FTR - - - - - - [...] - - - - - - - NULL,GERI NUNEZ STANDARD FORM 515 ID:[id number] SEX:M :[id number] AGE: 88 LOC:[id number] PCP: Sariah Gomes MD /shelly/ JOSE REESE M.D. STAFF PATHOLOGIST Signed: 01/06/2024 11:16 JOSE REESE [facility] Encounter Notes: All associated encounter notes This section contains the clinical notes associated to the Encounter. Date/Time Encounter Note(s) Provider Source Jan 30, 2024 01:00 AM CRITICAL CARE UNIT NOTE: LOCAL TITLE: [facility] INPATIENT FLOWSHEET STANDARD TITLE: CRITICAL CARE UNIT NOTE DATE OF NOTE: JAN 30, 2024@01:00 ENTRY DATE: JAN 31, 2024@14:37:37 AUTHOR: SPARKLEMV [employer] EXP COSIGNER: URGENCY: STATUS: COMPLETED This is a place barron only. Please see [email or web address] to view document. /es/ [employer] ICU DOCUMENT IMPORT Signed: 01/31/2024 14:37 SYSTEM,[employer]ARK [facility] Jan 30, 2024 01:00 AM CRITICAL CARE UNIT NOTE: LOCAL TITLE: [facility] RESPIRATORY THERAPY FLOWSHEET STANDARD TITLE: CRITICAL CARE UNIT NOTE DATE OF NOTE: JAN 30, 2024@01:00 ENTRY DATE: JAN 31, 2024@15:06:11 AUTHOR: CAROLEE VILLAGRAN EXP COSIGNER: URGENCY: STATUS: COMPLETED This is a place barron only. Please see [email or web address] to view document. /es/ CAROLEE SYSTEM ICU DOCUMENT IMPORT Signed: 01/31/2024 15:06 CAROLEE VILLAGRAN [facility]
--- OUTSIDE RECORDS SUMMARY | 2024-03-10 19:39 | XMS_ITS | Encounter Summary ---
Author Name [facility] [place] [facility] [place] [facility] [place] Address [address] [place] [address] Care Team Providers Care Communications Controller Name Role Phone SARIAH GOMES Primary Care [...] PART B Sep 09, 2002 PART B [id number] [phone] JOAQUIN COUGHLIN S PATIENT MEDICARE (WNR) MEDICARE (M) PART A Sep 09, 2002 PART A [id number] NULL,JOAQUIN S PATIENT MEDICARE (WNR) MEDICARE (M) PART A Sep 09, 2002 PART A [id number] JOAQUIN COUGHLIN S PATIENT MEDICARE (WNR) MEDICARE (M) PART B Sep 09, 2002 PART B [id number] JOAQUIN COUGHLIN S PATIENT Selected Encounter [...] activities for the patient [facility] [place] [facility] This section includes future appointments and future orders which are active, pending or scheduled. Future Appointments This section includes appointments that were scheduled to occur 6 months from the date of the Encounter, up to a maximum of 20 appointments. The data comes from all [place] [facility]. Appointment Date/Time Appointment Type Appointme nt Facility Name Feb 17, 2024 01:00 PM AMBULATORY - NONE [facility] Feb 21, 2024 10:00 AM [facility] Feb 24, 2024 12:15 PM AMBULATORY - MEDICINE [facility] Feb 24, 2024 01:00 PM AMBULATORY - MEDICINE [facility] Mar 02, 2024 01:00 PM AMBULATORY - REHAB MEDICIN E [facility] Apr 26, 2024 10:00 AM [...] of theEncounter. The data comes from all [facility]. Test Date/Time Test Type Test Details Facility Name Jan 18, 2024 04:23 PM Consult Order COMMUNITY CARE-ECHOCARDIOGRAPHY [facility] [employer] [facility] Jan 19, 2024 12:10 PM Consult Order COMMUNITY CARE-DERMATOLOGY [facility] [employer] [facility] Jan 28, 2024 02:00 AM Laboratory - Chemi stry Order TROPONIN I, HS PLASMA STAT [facility] Mar 01, 2024 03:28 PM Consult Order IFC TRAVEL ING UNIVERSAL CONSULT-QUENEMO Cons [place] Lab Results: +/- 30 days of [...] Range Comment Jan 31, 2024 10:50 AM [facility] HEMOGLOBIN A1C Specimen Type: BLOOD [...] Jan 31, 2024 10:13 AM Reporting Lab: [facility] [phone] Performing Lab: [facility] [address] HEMOGLOBIN A1C 5.4 4.0-6.0 Jan 31, 2024 10:50 AM [facility] LIPID PANEL,FASTING Specimen Type: PLASMA No comment entered. Ordering Provider: JULIET SMART Report Released Date/Time: Jan 31, 2024 10:13 AM Reporting Lab: [facility] [address] Performing Lab: [facility] [address] CHOLESTEROL 125 mg/dL <199 TRIGLYCERIDE 95 mg/dL <149 .HDL 37 mg/dL L >40 LDL CALCULATION 69 mg/dL <99 VLDL CALCULATION 19 mg/dL <29 NON HDL CHOLESTEROL 88 mg/dL <129 Jan 31, 2024 07:29 AM [facility] CBC Specimen Type: BLOOD No comment entered. Ordering Provider: BASHIR CARVAJAL Report Released Date/Time: Jan 30, 2024 01:03 PM Reporting Lab: [facility] [address] Performing Lab: [facility] [address] WBC 7.3 4.0-11.0 RBC 3.83 L 4.60-6.20 HGB 11.4 g/dL L 13.5-17.9 HCT 35.1 L 41.0-54.0 MCV 91.6 fL 80.0-100.0 MCH 29.8 pg 27.0-33.0 MCHC 32.5 g/dL 32.0-37.5 PLT 193 150-400 MPV 10.7 fL 9.1-13.0 RDW 12.2 11.5-14.5 Jan 31, 2024 07:29 AM [facility] BASIC METABOLIC PANEL+MG Specimen Type: PLASMA No comment entered. Ordering Provider: BASHIR CARVAJAL Report Released Date/Time: Jan 30, 2024 01:03 PM Reporting Lab: [facility] [address] Performing Lab: [facility] [address] CREATININE 1.3 mg/dL H 0.7-1.2 UREA NITROGEN 24 mg/dL 8-26 GLUCOSE 91 mg/dL 70-100 SODIUM 138 mmol/L 136-145 POTASSIUM 4.1 mmol/L 3.5-5.1 CHLORIDE 108 mmol/L H 98-107 CO2 23 mmol/L 22-29 CALCIUM 8.8 mg/dL 8.4-10.2 MAGNESIUM 2.1 mg/dL 1.6-2.6 ANION GAP 7 mmol/L 5-15 .CREAT EGFR(CKD-EPI) 54 L >60 Jan 30, 2024 10:37 AM [facility] POC ACT Specimen Type: BLOOD No comment entered. Ordering Provider: RODO CHRISTY Report Released Date/Time: Jan 30, 2024 10:43 AM Reporting Lab: [facility] [address] Performing Lab: [facility] [address] POC ACT 241 s H 84-139 Jan 30, 2024 10:08 AM [facility] POC ACT Specimen Type: BLOOD No comment entered. Ordering Provider: RODO CHRISTY Report Released Date/Time: Jan 30, 2024 10:14 AM Reporting Lab: [facility] [address] Performing Lab: [facility] [address] POC ACT 289 s H 84-139 Jan 30, 2024 09:34 AM [facility] POC ACT Specimen Type: BLOOD No comment entered. Ordering Provider: RODO CHRISTY Report Released Date/Time: Jan 30, 2024 10:14 AM Reporting Lab: [facility] [address] Performing Lab: [facility] [address] POC ACT 294 s H 84-139 Jan 30, 2024 05:37 AM [facility] HEPARIN APTT Specimen Type: PLASMA No comment entered. Ordering Provider: BASHIR CARVAJAL Report Released Date/Time: Jan 29, 2024 09:43 PM Reporting Lab: [facility] [address] Performing Lab: [facility] [address] HEPARIN APTT 83.2 s 48.0-92.0 Jan 30, 2024 05:37 AM [facility] BASIC METABOLIC PANEL+MG Specimen Type: PLASMA No comment entered. Ordering Provider: BASHIR CARVAJAL Report Released Date/Time: Jan 29, 2024 12:19 PM Reporting Lab: [facility] [address] Performing Lab: [facility] [address] CREATININE 1.4 mg/dL H 0.7-1.2 UREA NITROGEN 27 mg/dL H 8-26 GLUCOSE 95 mg/dL 70-100 SODIUM 139 mmol/L 136-145 POTASSIUM 4.2 mmol/L 3.5-5.1 CHLORIDE 109 mmol/L H 98-107 CO2 24 mmol/L 22-29 CALCIUM 9.0 mg/dL 8.4-10.2 MAGNESIUM 2.1 mg/dL 1.6-2.6 ANION GAP 6 mmol/L 5-15 .CREAT EGFR(CKD-EPI) 49 L >60 Jan 29, 2024 09:02 PM [facility] HEPARIN APTT Specimen Type: PLASMA Comment: Critical Value Reported To: Tomasa Delcid PharmD 01/29/24 @[address] [place] [address]. Critical value report confirmed. Ordering Provider: MERY SAMUEL Report Released Date/Time: Jan 29, 2024 03:00 PM Reporting Lab: [facility] [address] Performing Lab: [facility] [address] HEPARIN APTT 214.6 s HH 48.0-92.0 Jan 29, 2024 06:24 AM [facility] BASIC METABOLIC PANEL+MG Specimen Type: PLASMA No comment entered. Ordering Provider: BASHIR CARVAJAL Report Released Date/Time: Jan 28, 2024 04:36 PM Reporting Lab: [facility] [address] Performing Lab: [facility] [address] CREATININE 1.6 mg/dL H 0.7-1.2 UREA NITROGEN 27 mg/dL H 8-26 GLUCOSE 92 mg/dL 70-100 SODIUM 140 mmol/L 136-145 POTASSIUM 4.2 mmol/L 3.5-5.1 CHLORIDE 110 mmol/L H 98-107 CO2 25 mmol/L 22-29 CALCIUM 8.8 mg/dL 8.4-10.2 MAGNESIUM 2.1 mg/dL 1.6-2.6 ANION GAP 5 mmol/L 5-15 .CREAT EGFR(CKD-EPI) 42 L >60 Jan 28, 2024 05:54 AM [facility] EXTRA PURPLE TUBE Specimen Type: BLOOD No comment entered. Ordering Provider: RODO CHRISTY Report Released Date/Time: Jan 28, 2024 05:54 AM Reporting Lab: [facility] [address] Performing Lab: [facility] [address] EXTRA PURPLE TUBE RECEIVED Jan 28, 2024 05:53 AM [facility] ALBUMIN Specimen Type: PLASMA No comment entered. Ordering Provider: BASHIR CARVAJAL Report Released Date/Time: Jan 27, 2024 04:49 PM Reporting Lab: [facility] [address] Performing Lab: [facility] [address] ALBUMIN 3.5 g/dL 3.5-5.2 Jan 28, 2024 05:53 AM [facility] BASIC METABOLIC PANEL+MG Specimen Type: PLASMA No comment entered. Ordering Provider: BASHIR CARVAJAL Report Released Date/Time: Jan 27, 2024 05:44 PM Reporting Lab: [facility] [address] Performing Lab: [facility] [address] CREATININE 1.4 mg/dL H 0.7-1.2 UREA NITROGEN 28 mg/dL H 8-26 GLUCOSE 92 mg/dL 70-100 SODIUM 140 mmol/L 136-145 POTASSIUM 4.4 mmol/L 3.5-5.1 CHLORIDE 109 mmol/L H 98-107 CO2 23 mmol/L 22-29 CALCIUM 8.8 mg/dL 8.4-10.2 MAGNESIUM 2.1 mg/dL 1.6-2.6 ANION GAP 8 mmol/L 5-15 .CREAT EGFR(CKD-EPI) 49 L >60 Jan 28, 2024 05:52 AM [facility] TROPONIN I, HS Specimen Type: PLASMA Comment: Critical value previously reported on patient. Ordering Provider: BRANDON MEJIA Report Released Date/Time: Jan 27, 2024 09:15 PM Reporting Lab: [facility] [address] Performing Lab: [facility] [address] TROPONIN I, HS 128 HH <35 Jan 28, 2024 12:35 AM [facility] COVID-19 DIAGNOSTIC PANEL (CEPHEID) Specimen Type: NASOPHARYNGEAL Comment: Cepheid GeneXpert (618) Ordering Provider: LUCAS HAWTHORNE Report Released Date/Time: Jan 27, 2024 04:28 PM Reporting Lab: [facility] [address] Performing Lab: [facility] [address] COVID-19 (CEPHEID) Not Detected Not Detected Jan 28, 2024 12:35 AM [facility] HEPARIN APTT Specimen Type: PLASMA Comment: Critical Value Reported To: Deena Oliveros PharmD 01/28/24 @0110 HV. Critical value report confirmed. Ordering Provider: NATALIE ORDOÑEZ Report Released Date/Time: Jan 27, 2024 07:18 PM Reporting Lab: [facility] [address] Performing Lab: [facility] [address] HEPARIN APTT 133.9 s HH 48.0-92.0 Jan 28, 2024 12:35 AM [facility] TROPONIN I, HS Specimen Type: PLASMA Comment: Critical value previously reported on patient. Ordering Provider: BRANDON MEJIA Report Released Date/Time: Jan 27, 2024 09:15 PM Reporting Lab: [facility] [address] Performing Lab: [facility] [address] TROPONIN I, HS 158 HH <35 Jan 27, 2024 09:22 PM [facility] TROPONIN I, HS Specimen Type: PLASMA Comment: Critical value previously reported on patient. Ordering Provider: BASHIR CARVAJAL Report Released Date/Time: Jan 27, 2024 08:38 PM Reporting Lab: [facility] [address] Performing Lab: [facility] [address] TROPONIN I, HS 146 HH <35 Jan 27, 2024 06:52 PM [facility] TROPONIN I, HS Specimen Type: PLASMA Comment: Critical Value Reported To: Brandon Mejia MD 01/27/24 @[address] [place] [address]. Critical value report confirmed. Ordering Provider: BASHIR CARVAJAL Report Released Date/Time: Jan 27, 2024 04:54 PM Reporting Lab: [facility] [address] Performing Lab: [facility] [address] TROPONIN I, HS 136 HH <35 Jan 27, 2024 06:52 PM [facility] CBC Specimen Type: BLOOD No comment entered. Ordering Provider: BASHIR CARVAJAL Report Released Date/Time: Jan 27, 2024 04:54 PM Reporting Lab: [facility] [address] Performing Lab: [facility] [address] WBC 6.0 4.0-11.0 RBC 3.91 L 4.60-6.20 HGB 12.1 g/dL L 13.5-17.9 HCT 36.5 L 41.0-54.0 MCV 93.4 fL 80.0-100.0 MCH 30.9 pg 27.0-33.0 MCHC 33.2 g/dL 32.0-37.5 PLT 177 150-400 MPV 10.7 fL 9.1-13.0 RDW 12.4 11.5-14.5 Jan 27, 2024 06:52 PM [facility] BASIC METABOLIC PANEL+MG Specimen Type: PLASMA No comment entered. Ordering Provider: BASHIR CARVAJAL Report Released Date/Time: Jan 27, 2024 04:54 PM Reporting Lab: [facility] [phone] Performing Lab: [facility] [address] CREATININE 1.3 mg/dL H 0.7-1.2 UREA NITROGEN [...] 2024 08:00 AM 148.37 23 [facility] Social History: Smoking Status (Most current) and [...] 14, 2023 11:30 AM VA-TOBACCO FORMER USER [facility] Tobacco Use History This section includes a history of the smoking, or tobacco-related health factors, that were collected on or before the date of the Encounter. The data comes from the [place] facility where the Encounter took place. Date/Time Smoking Status/Tobacco Use Comment F acility Dec 14, 2023 11:30 AM VA-TOBACCO QUIT 15 YRS OR MORE [facility] Oct 13, 2022 01:30 PM VA-TOBACCO FORMER USER [facility] Oct 13, 2022 01:30 PM VA-TOBACCO QUIT 15 YRS OR MORE [facility] Jul 27, 2021 10:00 AM VA-TOBACCO FORMER USER [facility] Jul 27, 2021 10:00 AM VA-TOBACCO QUIT 15 YRS OR MORE [facility] Jan 02, 2020 09:00 AM VA-TOBACCO FORMER USER [facility] Jan 02, 2020 09:00 AM VA-TOBACCO QUIT 15 YRS OR MORE [facility] Jul 21, 2018 03:00 PM VA-TOBACCO FORMER USER [facility] Jul 21, 2018 03:00 PM VA-TOBACCO QUIT 15 YRS OR MORE [facility] Dec 24, 2016 08:01 AM FORMER TOBACCO USER 7Y OR GREATE R [facility] Dec 23, 2015 08:23 AM FORMER TOBACCO USE >1Y <7Y [facility] Dec 26, 2014 10:32 AM FORMER TOBACCO USER 7Y OR GREATE R [facility] August 13, 2013 08:22 AM LIFETIME NON-TOBACCO USER [facility] August 30, 2006 08:38 AM FORMER TOBACCO USER 7Y OR GREATE R [facility] Advance Directives: All historical and current Section Date Range: From patient's date of to the date document was created. This section includes ALL of a patient's completed or amended [place] Advance and Rescinded Directives. The entries below indicate that a directive exists for the patient, but an actual copy is not included with this document. The data comes from all [place] facilities. Date Advance Directives Provider Source August [...] DATE: JAN 06, 2024@11:16:39 AUTHOR: JOSE REESE EXP COSIGNER: URGENCY: STATUS: COMPLETED $APHDR Reporting Lab: [facility] [CLIA# [id number]] [place] [address] - - - - - - - [...] - PATHOLOGY REPORT Accession No. [id number] - - - - - - - [...] - PATHOLOGY REPORT Accession No. [id number] - - - - - - - [...] Performing Laboratory: Surgical Pathology Report Performed By: [facility] [CLIA# [id number]] [place] [address] $FTR - - - - - - [...] - - MADYSON,GERI NUNEZ STANDARD FORM 515 ID:[id number] SEX:M :[id number] AGE: 88 LOC:[id number] PCP: Sariah Gomes MD /shelly/ JOSE REESE M.D. STAFF PATHOLOGIST Signed: 01/06/2024 11:16 JOSE REESE [facility] Encounter Notes: All associated encounter [...] COMPLETED [facility] - Scanned Document See Maxymiser. /shelly/ CAROLYN RUSSELL [facility] PATTERNMAKER Signed: 02/01/2024 08:41 CAROLYN RUSSELL [facility]
--- OUTSIDE RECORDS SUMMARY | 2024-03-10 19:39 | XMS_ITS ---
[place] DAILY HOSPITALIZATION DATA [facility] HCS Encounter Summary Created on: March 10, 2024 GERI COUGHLIN : 1935 Sex: Male Author Name [facility] [facility] [place] Address [address] [place] [address] Care Team Providers Care School Psychologist Name Role Phone SARIAH GOMES Primary Care [...] PART A Sep 09, 2002 PART A [phone] JOAQUIN COUGHLIN S PATIENT MEDICARE (WNR) MEDICARE (M) PART B Sep 09, 2002 PART B [id number] [phone] JOAQUIN COUGHLIN S PATIENT MEDICARE (WNR) MEDICARE (M) PART A Sep 09, 2002 PART A [id number] JOAQUIN COUGHLIN S PATIENT MEDICARE (WNR) MEDICARE (M) PART B Sep 09, 2002 PART B [id number] JOAQUIN COUGHLIN S PATIENT [...] activities for the patient from all [place] [facility] This section includes future appointments and future orders which are active, pending or scheduled. Future Appointments This section includes appointments that were scheduled to occur 6 months from the date of the Encounter, up to a maximum of 20 appointments. The data comes from all [place] treatment [facility]. Appointment Date/Time Appointment Type Appointme nt Facility Name Feb 17, 2024 01:00 PM AMBULATORY - NONE [facility] Feb 21, 2024 10:00 AM AMBULATORY - MEDICINE [facility] Feb 24, 2024 12:15 PM AMBULATORY - MEDICINE [facility] Feb 24, 2024 01:00 PM AMBULATORY - MEDICINE [facility] Mar 02, 2024 01:00 PM AMBULATORY - [facility]AB [facility] Apr 26, 2024 10:00 AM AMBULATORY - MEDICINE [facility] Jul 31, 2024 09:20 [...] all [facility]. Test Date/Time Test Type Test Details Facility Name Jan 18, 2024 04:23 PM Consult Order COMMUNITY CARE-ECHOCARDIOGRAPHY Cons Fitting Room Attendant's [facility] Jan 19, 2024 12:10 PM Consult Order COMMUNITY CARE-DERMATOLOGY Cons Fitting Room Attendant's [facility] Jan 28, 2024 02:00 AM Laboratory - Chemi stry Order TROPONIN I, HS PLASMA STAT [facility] Mar 01, 2024 03:28 PM Consult Order IFC TRAVEL ING [facility] Cons Fitting Room Attendant's [facility] Lab Results: +/- [...] Range Comment Jan 31, 2024 10:50 AM [facility] HEMOGLOBIN A1C Specimen Type: BLOOD [...] Jan 31, 2024 10:13 AM Reporting Lab: [facility] [phone] Performing Lab: [facility] [phone] HEMOGLOBIN A1C 5.4 4.0-6.0 Jan 31, 2024 10:50 AM [facility] LIPID PANEL,FASTING Specimen Type: PLASMA No comment entered. Ordering Provider: JULIET SMART Report Released Date/Time: Jan 31, 2024 10:13 AM Reporting Lab: [facility] [phone] Performing Lab: [facility] [id number] CHOLESTEROL 125 mg/dL <199 TRIGLYCERIDE 95 mg/dL <149 .HDL 37 mg/dL L >40 LDL CALCULATION 69 mg/dL <99 VLDL CALCULATION 19 mg/dL <29 NON HDL CHOLESTEROL 88 mg/dL <129 Jan 31, 2024 07:29 AM [facility] CBC Specimen Type: BLOOD No comment entered. Ordering Provider: BASHIR CARVAJAL Report Released Date/Time: Jan 30, 2024 01:03 PM Reporting Lab: [facility] [address] Performing Lab: [facility] [id number] WBC 7.3 4.0-11.0 RBC 3.83 L 4.60-6.20 HGB 11.4 g/dL L 13.5-17.9 HCT 35.1 L 41.0-54.0 MCV 91.6 fL 80.0-100.0 MCH 29.8 pg 27.0-33.0 MCHC 32.5 g/dL 32.0-37.5 PLT 193 150-400 MPV 10.7 fL 9.1-13.0 RDW 12.2 11.5-14.5 Jan 31, 2024 07:29 AM [facility] BASIC METABOLIC PANEL+MG Specimen Type: PLASMA No comment entered. Ordering Provider: BASHIR CARVAJAL Report Released Date/Time: Jan 30, 2024 01:03 PM Reporting Lab: [facility] [phone] Performing Lab: [facility] [phone] CREATININE 1.3 mg/dL H 0.7-1.2 UREA NITROGEN 24 mg/dL 8-26 GLUCOSE 91 mg/dL 70-100 SODIUM 138 mmol/L 136-145 POTASSIUM 4.1 mmol/L 3.5-5.1 CHLORIDE 108 mmol/L H 98-107 CO2 23 mmol/L 22-29 CALCIUM 8.8 mg/dL 8.4-10.2 MAGNESIUM 2.1 mg/dL 1.6-2.6 ANION GAP 7 mmol/L 5-15 .CREAT EGFR(CKD-EPI) 54 L >60 Jan 30, 2024 10:37 AM [facility] POC ACT Specimen Type: BLOOD No comment entered. Ordering Provider: RODO CHRISTY Report Released Date/Time: Jan 30, 2024 10:43 AM Reporting Lab: [facility] [phone] Performing Lab: [facility] [address] POC ACT 241 s H 84-139 Jan 30, 2024 10:08 AM [facility] POC ACT Specimen Type: BLOOD No comment entered. Ordering Provider: RODO CHRISTY Report Released Date/Time: Jan 30, 2024 10:14 AM Reporting Lab: [facility] [phone] Performing Lab: [facility] [address] POC ACT 289 s H 84-139 Jan 30, 2024 09:34 AM [facility] POC ACT Specimen Type: BLOOD No comment entered. Ordering Provider: RODO CHRISTY Report Released Date/Time: Jan 30, 2024 10:14 AM Reporting Lab: [facility] [phone] Performing Lab: [facility] [address] POC ACT 294 s H 84-139 Jan 30, 2024 05:37 AM [facility] HEPARIN APTT Specimen Type: PLASMA No comment entered. Ordering Provider: BASHIR CARVAJAL Report Released Date/Time: Jan 29, 2024 09:43 PM Reporting Lab: [facility] [phone] Performing Lab: [facility] [address] HEPARIN APTT 83.2 s 48.0-92.0 Jan 30, 2024 05:37 AM [facility] BASIC METABOLIC PANEL+MG Specimen Type: PLASMA No comment entered. Ordering Provider: BASHIR CARVAJAL Report Released Date/Time: Jan 29, 2024 12:19 PM Reporting Lab: [facility] [phone] Performing Lab: [facility] [phone] CREATININE 1.4 mg/dL H 0.7-1.2 UREA NITROGEN 27 mg/dL H 8-26 GLUCOSE 95 mg/dL 70-100 SODIUM 139 mmol/L 136-145 POTASSIUM 4.2 mmol/L 3.5-5.1 CHLORIDE 109 mmol/L H 98-107 CO2 24 mmol/L 22-29 CALCIUM 9.0 mg/dL 8.4-10.2 MAGNESIUM 2.1 mg/dL 1.6-2.6 ANION GAP 6 mmol/L 5-15 .CREAT EGFR(CKD-EPI) 49 L >60 Jan 29, 2024 09:02 PM [facility] HEPARIN APTT Specimen Type: PLASMA Comment: Critical Value Reported To: Tomasa Delcid PharmD 01/29/24 @[address] [place] [address]. Critical value report confirmed. Ordering Provider: MERY SAMUEL Report Released Date/Time: Jan 29, 2024 03:00 PM Reporting Lab: [facility] [phone] Performing Lab: [facility] [address] HEPARIN APTT 214.6 s HH 48.0-92.0 Jan 29, 2024 06:24 AM [facility] BASIC METABOLIC PANEL+MG Specimen Type: PLASMA No comment entered. Ordering Provider: BASHIR CARVAJAL Report Released Date/Time: Jan 28, 2024 04:36 PM Reporting Lab: [facility] [phone] Performing Lab: [facility] [phone] CREATININE 1.6 mg/dL H 0.7-1.2 UREA NITROGEN 27 mg/dL H 8-26 GLUCOSE 92 mg/dL 70-100 SODIUM 140 mmol/L 136-145 POTASSIUM 4.2 mmol/L 3.5-5.1 CHLORIDE 110 mmol/L H 98-107 CO2 25 mmol/L 22-29 CALCIUM 8.8 mg/dL 8.4-10.2 MAGNESIUM 2.1 mg/dL 1.6-2.6 ANION GAP 5 mmol/L 5-15 .CREAT EGFR(CKD-EPI) 42 L >60 Jan 28, 2024 05:54 AM [facility] EXTRA PURPLE TUBE Specimen Type: BLOOD No comment entered. Ordering Provider: RODO CHRISTY Report Released Date/Time: Jan 28, 2024 05:54 AM Reporting Lab: [facility] [phone] Performing Lab: [facility] [address] EXTRA PURPLE TUBE RECEIVED Jan 28, 2024 05:53 AM [facility] ALBUMIN Specimen Type: PLASMA No comment entered. Ordering Provider: BASHIR CARVAJAL Report Released Date/Time: Jan 27, 2024 04:49 PM Reporting Lab: [facility] [phone] Performing Lab: [facility] [address] ALBUMIN 3.5 g/dL 3.5-5.2 Jan 28, 2024 05:53 AM [facility] BASIC METABOLIC PANEL+MG Specimen Type: PLASMA No comment entered. Ordering Provider: BASHIR CARVAJAL Report Released Date/Time: Jan 27, 2024 05:44 PM Reporting Lab: [facility] [phone] Performing Lab: [facility] [address] CREATININE 1.4 mg/dL H 0.7-1.2 UREA NITROGEN 28 mg/dL H 8-26 GLUCOSE 92 mg/dL 70-100 SODIUM 140 mmol/L 136-145 POTASSIUM 4.4 mmol/L 3.5-5.1 CHLORIDE 109 mmol/L H 98-107 CO2 23 mmol/L 22-29 CALCIUM 8.8 mg/dL 8.4-10.2 MAGNESIUM 2.1 mg/dL 1.6-2.6 ANION GAP 8 mmol/L 5-15 .CREAT EGFR(CKD-EPI) 49 L >60 Jan 28, 2024 05:52 AM [facility] TROPONIN I, HS Specimen Type: PLASMA Comment: Critical value previously reported on patient. Ordering Provider: BRANDON MEJIA Report Released Date/Time: Jan 27, 2024 09:15 PM Reporting Lab: [facility] [phone] Performing Lab: [facility] [address] TROPONIN I, HS 128 HH <35 Jan 28, 2024 12:35 AM [facility] COVID-19 DIAGNOSTIC PANEL (CEPHEID) Specimen Type: NASOPHARYNGEAL Comment: Cepheid GeneXpert (618) Ordering Provider: LUCAS HAWTHORNE Report Released Date/Time: Jan 27, 2024 04:28 PM Reporting Lab: [facility] [phone] Performing Lab: [facility] [phone] COVID-19 (CEPHEID) Not Detected Not Detected Jan 28, 2024 12:35 AM [facility] HEPARIN APTT Specimen Type: PLASMA Comment: Critical Value Reported To: Deena Oliveros PharmD 01/28/24 @0110 HV. Critical value report confirmed. Ordering Provider: NAATLIE ORDOÑEZ Report Released Date/Time: Jan 27, 2024 07:18 PM Reporting Lab: [facility] [phone] Performing Lab: [facility] [address] HEPARIN APTT 133.9 s HH 48.0-92.0 Jan 28, 2024 12:35 AM [facility] TROPONIN I, HS Specimen Type: PLASMA Comment: Critical value previously reported on patient. Ordering Provider: BRANDON MEJIA Report Released Date/Time: Jan 27, 2024 09:15 PM Reporting Lab: [facility] [address] Performing Lab: [facility] [phone] TROPONIN I, HS 158 HH <35 Jan 27, 2024 09:22 PM [facility] TROPONIN I, HS Specimen Type: PLASMA Comment: Critical value previously reported on patient. Ordering Provider: BASHIR CARVAJAL Report Released Date/Time: Jan 27, 2024 08:38 PM Reporting Lab: [facility] [address] Performing Lab: [facility] [phone] TROPONIN I, HS 146 HH <35 Jan 27, 2024 06:52 PM [facility] TROPONIN I, HS Specimen Type: PLASMA Comment: Critical Value Reported To: Brandon Mejia MD 01/27/24 @[address] [place] [address]. Critical value report confirmed. Ordering Provider: BASHIR CARVAJAL Report Released Date/Time: Jan 27, 2024 04:54 PM Reporting Lab: [facility] [phone] Performing Lab: [facility] [address] TROPONIN I, HS 136 HH <35 Jan 27, 2024 06:52 PM [facility] BASIC METABOLIC PANEL+MG Specimen Type: PLASMA No comment entered. Ordering Provider: BASHIR CARVAJAL Report Released Date/Time: Jan 27, 2024 04:54 PM Reporting Lab: [facility] [phone] Performing Lab: [facility] [address] CREATININE 1.3 mg/dL H 0.7-1.2 UREA NITROGEN 30 mg/dL H 8-26 GLUCOSE 141 mg/dL H 70-100 SODIUM 142 mmol/L 136-145 POTASSIUM 3.4 mmol/L L 3.5-5.1 CHLORIDE 106 mmol/L 98-107 CO2 27 mmol/L 22-29 CALCIUM 8.8 mg/dL 8.4-10.2 MAGNESIUM 2.2 mg/dL 1.6-2.6 ANION GAP 9 mmol/L 5-15 .CREAT EGFR(CKD-EPI) 54 L >60 Jan 27, 2024 06:52 PM [facility] CBC Specimen Type: BLOOD No comment entered. Ordering Provider: BASHIR CARVAJAL Report Released Date/Time: Jan 27, 2024 04:54 PM Reporting Lab: [facility] [phone] Performing Lab: [facility] [address] WBC 6.0 4.0-11.0 RBC 3.91 L 4.60-6.20 [...] 14, 2023 11:30 AM VA-TOBACCO FORMER USER [facility] Tobacco Use History This section includes a history of the smoking, or tobacco-related health factors, that were collected on or before the date of the Encounter. The data comes from the [place] facility where the Encounter took place. Date/Time Smoking Status/Tobacco Use Comment F acility Dec 14, 2023 11:30 AM VA-TOBACCO QUIT 15 YRS OR MORE [facility] Oct 13, 2022 01:30 PM VA-TOBACCO FORMER USER [facility] Oct 13, 2022 01:30 PM VA-TOBACCO QUIT 15 YRS OR MORE [facility] Jul 27, 2021 10:00 AM VA-TOBACCO FORMER USER [facility] Jul 27, 2021 10:00 AM VA-TOBACCO QUIT 15 YRS OR MORE [facility] Jan 02, 2020 09:00 AM VA-TOBACCO FORMER USER [facility] Jan 02, 2020 09:00 AM VA-TOBACCO QUIT 15 YRS OR MORE [facility] Jul 21, 2018 03:00 PM VA-TOBACCO FORMER USER [facility] Jul 21, 2018 03:00 PM VA-TOBACCO QUIT 15 YRS OR MORE [facility] Dec 24, 2016 08:01 AM FORMER TOBACCO USER 7Y OR GREATE R [facility] Dec 23, 2015 08:23 AM FORMER TOBACCO USE >1Y <7Y [facility] Dec 26, 2014 10:32 AM FORMER TOBACCO USER 7Y OR GREATE R [facility] August 13, 2013 08:22 AM LIFETIME NON-TOBACCO USER [facility] August 30, 2006 08:38 AM FORMER TOBACCO USER 7Y OR GREATE R [facility] Advance Directives: All historical and [...] COSIGNER: URGENCY: STATUS: COMPLETED $APHDR Reporting Lab: [facility] [CLIA# [id number]] [place] [address] - - - - - - - [...] - PATHOLOGY REPORT Accession No. [id number] - - - - - - - [...] - PATHOLOGY REPORT Accession No. [id number] - - - - - - - [...] Performing Laboratory: Surgical Pathology Report Performed By: [facility] [CLIA# [id number]] [place] [address] $FTR - - - - - - [...] - - MADYSON,GERI NUNEZ STANDARD FORM 515 ID:[id number] SEX:M :[id number] AGE: 88 LOC:[id number] PCP: Sariah Gomes MD /shelly/ JOSE REESE M.D. STAFF PATHOLOGIST Signed: 01/06/2024 11:16 JOSE REESE [facility]
--- OUTSIDE RECORDS SUMMARY | 2024-03-10 19:39 | XMS_ITS | Encounter Summary ---
Author Name [facility] [place] Organization [facility] [place] Address [address] [place] [address] Care Team Providers Care Director Of Medical Review Name Role Phone SARIAH GOMES Primary Care [...] PART B Sep 09, 2002 PART B [id number] [phone] JOAQUIN COUGHLIN S PATIENT MEDICARE (WNR) MEDICARE (M) PART A Sep 09, 2002 PART A [id number] JOAQUIN COUGHLIN S PATIENT MEDICARE (WNR) MEDICARE (M) PART A Sep 09, 2002 PART A [id number] JOAQUIN COUGHLIN S PATIENT MEDICARE (WNR) MEDICARE (M) PART B Sep 09, 2002 PART B [id number] JOAQUIN COUGHLIN PATIENT Selected Encounter This section includes the information on record at [place] for the Encounter. Date/Time Encounter Type Encounter Description Reason Pro vider Source Feb 03, 2024 03:02 PM Outpatient Encounter CARDIOLOGY IHE Encounter Template Text not used by [place] Plan of Treatment: Future Appointments (+ 6 months) and Future Tests (+/- 45 days) The Plan of Treatment section includes future care activities for the patient from all [place] [facility] This section includes future appointments and future orders which are active, pending or scheduled. Future Appointments This section includes appointments that were scheduled to occur 6 months from the date of the Encounter, up to a maximum of 20 appointments. The data comes from all [facility]. Appointment Date/Time Appointment Type Appointme nt Facility Name Feb 17, 2024 01:00 PM AMBULATORY - NONE [facility] Feb 21, 2024 10:00 AM AMBULATORY - MEDICINE [facility] Feb 24, 2024 12:15 PM AMBULATORY - MEDICINE [facility] Feb 24, 2024 01:00 PM AMBULATORY - MEDICINE [facility] Mar 02, 2024 01:00 PM AMBULATORY - REHAB [facility]IC[facility] Apr 26, 2024 10:00 AM AMBULATORY - MEDICINE [facility] Jul 31, 2024 09:20 AM AMBULATORY - SURGERY [facility] Active, Pending, and Scheduled Orders This section includes a listing of several types of active, pending, and scheduled orders, including clinic medications orders, diagnostic test orders, procedure orders and consult orders; where the start date of the order is 45 days before the date of the Encounter or 45 days after the date of theEncounter. The data comes from all [facility]. 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 [facility] Jan 28, 2024 02:00 AM Laboratory - Chemi stry Order TROPONIN I, HS PLASMA STAT [facility] Mar 01, 2024 03:28 PM Consult Order IFC TRAVEL ING [facility] Cons Mechanic Driver's [facility] Lab Results: +/- 30 days [...] Comment Jan 31, 2024 10:50 AM [facility] HEMOGLOBIN A1C Specimen Type: BLOOD Comment: [...] Jan 31, 2024 10:13 AM Reporting Lab: [facility] [phone] Performing Lab: [facility] [address] HEMOGLOBIN A1C 5.4 4.0-6.0 Jan 31, 2024 10:50 AM [facility] LIPID PANEL,FASTING Specimen Type: PLASMA No comment entered. Ordering Provider: JULIET SMART Report Released Date/Time: Jan 31, 2024 10:13 AM Reporting Lab: [facility] [phone] Performing Lab: [facility] [address] CHOLESTEROL 125 mg/dL <199 TRIGLYCERIDE 95 mg/dL <149 .HDL 37 mg/dL L >40 LDL CALCULATION 69 mg/dL <99 VLDL CALCULATION 19 mg/dL <29 NON HDL CHOLESTEROL 88 mg/dL <129 Jan 31, 2024 07:29 AM [facility] CBC Specimen Type: BLOOD No comment entered. Ordering Provider: BASHIR CARVAJAL Report Released Date/Time: Jan 30, 2024 01:03 PM Reporting Lab: [facility] [address] Performing Lab: [facility] [address] WBC 7.3 4.0-11.0 RBC 3.83 L 4.60-6.20 HGB 11.4 g/dL L 13.5-17.9 HCT 35.1 L 41.0-54.0 MCV 91.6 fL 80.0-100.0 MCH 29.8 pg 27.0-33.0 MCHC 32.5 g/dL 32.0-37.5 PLT 193 150-400 MPV 10.7 fL 9.1-13.0 RDW 12.2 11.5-14.5 Jan 31, 2024 07:29 AM [facility] BASIC METABOLIC PANEL+MG Specimen Type: PLASMA No comment entered. Ordering Provider: BASHIR CARVAJAL Report Released Date/Time: Jan 30, 2024 01:03 PM Reporting Lab: [facility] [address] Performing Lab: [facility] [address] CREATININE 1.3 mg/dL H 0.7-1.2 UREA NITROGEN 24 mg/dL 8-26 GLUCOSE 91 mg/dL 70-100 SODIUM 138 mmol/L 136-145 POTASSIUM 4.1 mmol/L 3.5-5.1 CHLORIDE 108 mmol/L H 98-107 CO2 23 mmol/L 22-29 CALCIUM 8.8 mg/dL 8.4-10.2 MAGNESIUM 2.1 mg/dL 1.6-2.6 ANION GAP 7 mmol/L 5-15 .CREAT EGFR(CKD-EPI) 54 L >60 Jan 30, 2024 10:37 AM [facility] POC ACT Specimen Type: BLOOD No comment entered. Ordering Provider: RODO CHRISTY Report Released Date/Time: Jan 30, 2024 10:43 AM Reporting Lab: [facility] [address] Performing Lab: [facility] [address] POC ACT 241 s H 84-139 Jan 30, 2024 10:08 AM [facility] POC ACT Specimen Type: BLOOD No comment entered. Ordering Provider: RODO CHRISTY Report Released Date/Time: Jan 30, 2024 10:14 AM Reporting Lab: [facility] [address] Performing Lab: [facility] [address] POC ACT 289 s H 84-139 Jan 30, 2024 09:34 AM [facility] POC ACT Specimen Type: BLOOD No comment entered. Ordering Provider: RODO CHRISTY Report Released Date/Time: Jan 30, 2024 10:14 AM Reporting Lab: [facility] [address] Performing Lab: [facility] [address] POC ACT 294 s H 84-139 Jan 30, 2024 05:37 AM [facility] HEPARIN APTT Specimen Type: PLASMA No comment entered. Ordering Provider: BASHIR CARVAJAL Report Released Date/Time: Jan 29, 2024 09:43 PM Reporting Lab: [facility] [address] Performing Lab: [facility] [address] HEPARIN APTT 83.2 s 48.0-92.0 Jan 30, 2024 05:37 AM [facility] BASIC METABOLIC PANEL+MG Specimen Type: PLASMA No comment entered. Ordering Provider: BASHIR CARVAJAL Report Released Date/Time: Jan 29, 2024 12:19 PM Reporting Lab: [facility] [address] Performing Lab: [facility] [address] CREATININE 1.4 mg/dL H 0.7-1.2 UREA NITROGEN 27 mg/dL H 8-26 GLUCOSE 95 mg/dL 70-100 SODIUM 139 mmol/L 136-145 POTASSIUM 4.2 mmol/L 3.5-5.1 CHLORIDE 109 mmol/L H 98-107 CO2 24 mmol/L 22-29 CALCIUM 9.0 mg/dL 8.4-10.2 MAGNESIUM 2.1 mg/dL 1.6-2.6 ANION GAP 6 mmol/L 5-15 .CREAT EGFR(CKD-EPI) 49 L >60 Jan 29, 2024 09:02 PM [facility] HEPARIN APTT Specimen Type: PLASMA Comment: Critical Value Reported To: Tomasa Delcid PharmD 01/29/24 @[address] [place] [address]. Critical value report confirmed. Ordering Provider: MERY SAMUEL Report Released Date/Time: Jan 29, 2024 03:00 PM Reporting Lab: [facility] [address] Performing Lab: [facility] [address] HEPARIN APTT 214.6 s HH 48.0-92.0 Jan 29, 2024 06:24 AM [facility] BASIC METABOLIC PANEL+MG Specimen Type: PLASMA No comment entered. Ordering Provider: BASHIR CARVAJAL Report Released Date/Time: Jan 28, 2024 04:36 PM Reporting Lab: [facility] [address] Performing Lab: [facility] [address] CREATININE 1.6 mg/dL H 0.7-1.2 UREA NITROGEN 27 mg/dL H 8-26 GLUCOSE 92 mg/dL 70-100 SODIUM 140 mmol/L 136-145 POTASSIUM 4.2 mmol/L 3.5-5.1 CHLORIDE 110 mmol/L H 98-107 CO2 25 mmol/L 22-29 CALCIUM 8.8 mg/dL 8.4-10.2 MAGNESIUM 2.1 mg/dL 1.6-2.6 ANION GAP 5 mmol/L 5-15 .CREAT EGFR(CKD-EPI) 42 L >60 Jan 28, 2024 05:54 AM [facility] EXTRA PURPLE TUBE Specimen Type: BLOOD No comment entered. Ordering Provider: RODO CHRISTY Report Released Date/Time: Jan 28, 2024 05:54 AM Reporting Lab: [facility] [address] Performing Lab: [facility] [address] EXTRA PURPLE TUBE RECEIVED Jan 28, 2024 05:53 AM [facility] ALBUMIN Specimen Type: PLASMA No comment entered. Ordering Provider: BASHIR CARVAJAL Report Released Date/Time: Jan 27, 2024 04:49 PM Reporting Lab: [facility] [address] Performing Lab: [facility] [address] ALBUMIN 3.5 g/dL 3.5-5.2 Jan 28, 2024 05:53 AM [facility] BASIC METABOLIC PANEL+MG Specimen Type: PLASMA No comment entered. Ordering Provider: BASHIR CARVAJAL Report Released Date/Time: Jan 27, 2024 05:44 PM Reporting Lab: [facility] [address] Performing Lab: [facility] [address] CREATININE 1.4 mg/dL H 0.7-1.2 UREA NITROGEN 28 mg/dL H 8-26 GLUCOSE 92 mg/dL 70-100 SODIUM 140 mmol/L 136-145 POTASSIUM 4.4 mmol/L 3.5-5.1 CHLORIDE 109 mmol/L H 98-107 CO2 23 mmol/L 22-29 CALCIUM 8.8 mg/dL 8.4-10.2 MAGNESIUM 2.1 mg/dL 1.6-2.6 ANION GAP 8 mmol/L 5-15 .CREAT EGFR(CKD-EPI) 49 L >60 Jan 28, 2024 05:52 AM [facility] TROPONIN I, HS Specimen Type: PLASMA Comment: Critical value previously reported on patient. Ordering Provider: BRANDON MEJIA Report Released Date/Time: Jan 27, 2024 09:15 PM Reporting Lab: [facility] [address] Performing Lab: [facility] [address] TROPONIN I, HS 128 HH <35 Jan 28, 2024 12:35 AM [facility] COVID-19 DIAGNOSTIC PANEL (CEPHEID) Specimen Type: NASOPHARYNGEAL Comment: Cepheid GeneXpert (618) Ordering Provider: LUCAS HAWTHORNE Report Released Date/Time: Jan 27, 2024 04:28 PM Reporting Lab: [facility] [address] Performing Lab: [facility] [address] COVID-19 (CEPHEID) Not Detected Not Detected Jan 28, 2024 12:35 AM [facility] HEPARIN APTT Specimen Type: PLASMA Comment: Critical Value Reported To: Deena Oliveros PharmD 01/28/24 @0110 HV. Critical value report confirmed. Ordering Provider: NATALIE ORDOÑEZ Report Released Date/Time: Jan 27, 2024 07:18 PM Reporting Lab: [facility] [address] Performing Lab: [facility] [address] HEPARIN APTT 133.9 s HH 48.0-92.0 Jan 28, 2024 12:35 AM [facility] TROPONIN I, HS Specimen Type: PLASMA Comment: Critical value previously reported on patient. Ordering Provider: BRANDON MEJIA Report Released Date/Time: Jan 27, 2024 09:15 PM Reporting Lab: [facility] [address] Performing Lab: [facility] [address] TROPONIN I, HS 158 HH <35 Jan 27, 2024 09:22 PM [facility] TROPONIN I, HS Specimen Type: PLASMA Comment: Critical value previously reported on patient. Ordering Provider: BASHIR CARVAJAL Report Released Date/Time: Jan 27, 2024 08:38 PM Reporting Lab: [facility] [address] Performing Lab: [facility] [address] TROPONIN I, HS 146 HH <35 Jan 27, 2024 06:52 PM [facility] TROPONIN I, HS Specimen Type: PLASMA Comment: Critical Value Reported To: Brandon Mejia MD 01/27/24 @[address] [place] [address]. Critical value report confirmed. Ordering Provider: BASHIR CARVAJAL Report Released Date/Time: Jan 27, 2024 04:54 PM Reporting Lab: [facility] [address] Performing Lab: [facility] [address] TROPONIN I, HS 136 HH <35 Jan 27, 2024 06:52 PM [facility] BASIC METABOLIC PANEL+MG Specimen Type: PLASMA No comment entered. Ordering Provider: BASHIR CARVAJAL Report Released Date/Time: Jan 27, 2024 04:54 PM Reporting Lab: [facility] [address] Performing Lab: [facility] [address] CREATININE 1.3 mg/dL H 0.7-1.2 UREA NITROGEN 30 mg/dL H 8-26 GLUCOSE 141 mg/dL H 70-100 SODIUM 142 mmol/L 136-145 POTASSIUM 3.4 mmol/L L 3.5-5.1 CHLORIDE 106 mmol/L 98-107 CO2 27 mmol/L 22-29 CALCIUM 8.8 mg/dL 8.4-10.2 MAGNESIUM 2.2 mg/dL 1.6-2.6 ANION GAP 9 mmol/L 5-15 .CREAT EGFR(CKD-EPI) 54 L >60 Jan 27, 2024 06:52 PM [facility] CBC Specimen Type: BLOOD No comment entered. Ordering Provider: BASHIR CARVAJAL Report Released Date/Time: Jan 27, 2024 04:54 PM Reporting Lab: [facility] [address] Performing Lab: [facility] [address] WBC 6.0 4.0-11.0 RBC 3.91 L 4.60-6.20 [...] 2023 11:30 AM VA-TOBACCO FORMER USER [facility] Tobacco Use History This section includes a history of the smoking, or tobacco-related health factors, that were collected on or before the date of the Encounter. The data comes from the [place] facility where the Encounter took place. Date/Time Smoking Status/Tobacco Use Comment F acility Dec 14, 2023 11:30 AM VA-TOBACCO QUIT 15 YRS OR MORE [facility] Oct 13, 2022 01:30 PM VA-TOBACCO FORMER USER [facility] Oct 13, 2022 01:30 PM VA-TOBACCO QUIT 15 YRS OR MORE [facility] Jul 27, 2021 10:00 AM VA-TOBACCO FORMER USER [facility] Jul 27, 2021 10:00 AM VA-TOBACCO QUIT 15 YRS OR MORE [facility] Jan 02, 2020 09:00 AM VA-TOBACCO FORMER USER [facility] Jan 02, 2020 09:00 AM VA-TOBACCO QUIT 15 YRS OR MORE [facility] Jul 21, 2018 03:00 PM VA-TOBACCO FORMER USER [facility] Jul 21, 2018 03:00 PM VA-TOBACCO QUIT 15 YRS OR MORE [facility] Dec 24, 2016 08:01 AM FORMER TOBACCO USER 7Y OR GREATE R [facility] Dec 23, 2015 08:23 AM FORMER TOBACCO USE >1Y <7Y [facility] Dec 26, 2014 10:32 AM FORMER TOBACCO USER 7Y OR GREATE R [facility] August 13, 2013 08:22 AM LIFETIME NON-TOBACCO USER [facility] August 30, 2006 08:38 AM FORMER TOBACCO USER 7Y OR GREATE R [facility] Advance Directives: All historical and current Section Date Range: From patient's date of to the date document was created. This section includes ALL of a patient's completed or amended [place] Advance and Rescinded Directives. The entries below indicate that a directive exists for the patient, but an actual copy is not included with this document. The data comes from all [facility]. Date Advance Directives Provider Source August [...] URGENCY: STATUS: COMPLETED $APHDR Reporting Lab: [facility] [CLIA# [id number]] [place] [address] - - - - - - - [...] - PATHOLOGY REPORT Accession No. [id number] - - - - - - - [...] - PATHOLOGY REPORT Accession No. [id number] - - - - - - - [...] cm. The specimen is inked. CE. (D)[facility] [place] MICROSCOPIC DESCRIPTION: Microscopic examination [...] Laboratory: Surgical Pathology Report Performed By: [facility] [CLIA# [id number]] [place] [address] $FTR - - - - - - [...] - - GERI COUGHLIN STANDARD FORM 515 ID:[id number] SEX:M :[id number] AGE: 88 LOC:[id number] PCP: Sariah Gomes MD /shelly/ JOSE REESE M.D. STAFF PATHOLOGIST Signed: 01/06/2024 11:16 JOSE REESE [facility]
--- OUTSIDE RECORDS SUMMARY | 2024-03-10 19:39 | XMS_ITS | Encounter Summary ---
Author Name [facility] [place] Organization [place] Address [address] [place] [address] Care Team Providers Care Wastewater Treatment Operator Name Role Phone SARIAH GOMES Primary [...] PART A Sep 09, 2002 PART A [id number] JOAQUIN COUGHLIN S PATIENT MEDICARE (WNR) MEDICARE (M) PART B Sep 09, 2002 PART B [id number] JOAQUIN COUGHLIN S PATIENT MEDICARE (WNR) MEDICARE (M) PART A Sep 09, 2002 PART A [id number] JOAQUIN COUGHLIN S PATIENT MEDICARE (WNR) MEDICARE (M) PART B Sep 09, 2002 PART B [id number] JOAQUIN COUGHLIN S PATIENT Selected Encounter This section includes the information on record at CT for the Encounter. Date/Time Encounter Type Encounter Description Reason Pro vider Source Jan 31, 2024 11:16 AM Inpatient Visit CLINICAL PHARMACY I[facility] Encounter Template Text not used by CT Plan of Treatment: Future Appointments (+ 6 months) and Future Tests (+/- 45 days) The Plan of Treatment section includes future care activities for the patient from [facility] This section includes future appointments [...] 2024 01:00 PM AM[facility]ONE [facility] Feb 21, 2024 10:00 AM AMBULATORY - MEDICINE [facility] Feb 24, 2024 12:15 PM AMBULATORY - MEDICINE [facility] Feb 24, 2024 01:00 PM AMBULATORY - MEDICINE [facility] Mar 02, 2024 01:00 PM AMBULATORY - REHAB [facility]IC[facility] Apr 26, 2024 10:00 AM AMBULATORY - MEDICINE [facility] Jul 31, 2024 09:20 AM AMBULATORY - SURGERY [facility] Active, Pending, and Scheduled Orders This section [...] 04:23 PM Consult Order COMMUNITY CARE-ECHOCARDIOGRAPHY Cons [facility] Jan 19, 2024 12:10 PM Consult Order COMMUNITY CARE-DERMATOLOGY Cons [facility] Jan 28, 2024 02:00 AM Laboratory - Chemi stry Order TROPONIN I, HS PLASMA STAT [facility] Mar 01, 2024 03:28 PM Consult Order IFC TRAVEL ING [facility]ERSAL CONSULT[facility] Cons Proof [facility] Lab Results: +/- 30 days of the encounter This section includes the Chemistry and Hematology Lab Results on record with CT for the patient. Radiology Reports and Pathology [...] Jan 31, 2024 10:13 AM Reporting Lab: [facility] [address] Performing Lab: [facility] [address] HEMOGLOBIN A1C 5.4 4.0-6.0 Jan 31, 2024 10:50 AM [facility] LIPID PANEL,FASTING Specimen Type: PLASMA No comment entered. Ordering Provider: JULIET SMART Report Released Date/Time: Jan 31, 2024 10:13 AM Reporting Lab: [facility] [address] Performing Lab: [facility] [address] CHOLESTEROL 125 mg/dL <199 TRIGLYCERIDE 95 mg/dL <149 .HDL 37 mg/dL L >40 LDL CALCULATION 69 mg/dL <99 VLDL CALCULATION 19 mg/dL <29 NON HDL CHOLESTEROL 88 mg/dL <129 Jan 31, 2024 07:29 AM [facility] CBC Specimen Type: BLOOD No comment entered. Ordering Provider: BASHIR CARVAJAL Report Released Date/Time: Jan 30, 2024 01:03 PM Reporting Lab: [facility] [address] Performing Lab: [facility] [address] WBC 7.3 4.0-11.0 RBC 3.83 L 4.60-6.20 [...] Jan 30, 2024 01:03 PM Reporting Lab: [facility] [address] Performing Lab: [facility] [address] CREATININE 1.3 mg/dL H 0.7-1.2 UREA NITROGEN [...] Jan 30, 2024 10:43 AM Reporting Lab: [facility] [address] Performing Lab: [facility] [address] POC ACT 241 s H 84-139 Jan 30, 2024 10:08 AM [facility] POC ACT Specimen Type: BLOOD No comment entered. Ordering Provider: RODO CHRISTY Report Released Date/Time: Jan 30, 2024 10:14 AM Reporting Lab: [facility] [address] Performing Lab: [facility] [address] POC ACT 289 s H 84-139 Jan 30, 2024 09:34 AM [facility] POC ACT Specimen Type: BLOOD No comment entered. Ordering Provider: RODO CHRISTY Report Released Date/Time: Jan 30, 2024 10:14 AM Reporting Lab: [facility] [address] Performing Lab: [facility] [address] POC ACT 294 s H 84-139 Jan 30, 2024 05:37 AM [facility] HEPARIN APTT Specimen Type: PLASMA No comment entered. Ordering Provider: BASHIR CARVAJAL Report Released Date/Time: Jan 29, 2024 09:43 PM Reporting Lab: [facility] [address] Performing Lab: [facility] [address] HEPARIN APTT 83.2 s 48.0-92.0 Jan 30, 2024 05:37 AM [facility] BASIC METABOLIC PANEL+MG Specimen Type: PLASMA No comment entered. Ordering Provider: BASHIR CARVAJAL Report Released Date/Time: Jan 29, 2024 12:19 PM Reporting Lab: [facility] [address] Performing Lab: [facility] [address] CREATININE 1.4 mg/dL H 0.7-1.2 UREA NITROGEN [...] Value Reported To: Tomasa Delcid PharmD 01/29/24 @[address] [place] [address]. Critical value report confirmed. Ordering Provider: MERY SAMUEL Report Released Date/Time: Jan 29, 2024 03:00 PM Reporting Lab: [facility] [address] Performing Lab: [facility] [address] HEPARIN APTT 214.6 s HH 48.0-92.0 Jan 29, 2024 06:24 AM [facility] BASIC METABOLIC PANEL+MG Specimen Type: PLASMA No comment entered. Ordering Provider: BASHIR CARVAJAL Report Released Date/Time: Jan 28, 2024 04:36 PM Reporting Lab: [facility] [address] Performing Lab: [facility] [address] CREATININE 1.6 mg/dL H 0.7-1.2 UREA NITROGEN [...] Jan 28, 2024 05:54 AM Reporting Lab: [facility] [address] Performing Lab: [facility] [address] EXTRA PURPLE TUBE RECEIVED Jan 28, 2024 05:53 AM [facility] ALBUMIN Specimen Type: PLASMA No comment entered. Ordering Provider: BASHIR CARVAJAL Report Released Date/Time: Jan 27, 2024 04:49 PM Reporting Lab: [facility] [address] Performing Lab: [facility] [address] ALBUMIN 3.5 g/dL 3.5-5.2 Jan 28, 2024 05:53 AM [facility] BASIC METABOLIC PANEL+MG Specimen Type: PLASMA No comment entered. Ordering Provider: BASHIR CARVAJAL Report Released Date/Time: Jan 27, 2024 05:44 PM Reporting Lab: [facility] [address] Performing Lab: [facility] [address] CREATININE 1.4 mg/dL H 0.7-1.2 UREA NITROGEN [...] Jan 27, 2024 09:15 PM Reporting Lab: [facility] [address] Performing Lab: [facility] [address] TROPONIN I, HS 128 HH <35 Jan 28, 2024 12:35 AM [facility] COVID-19 DIAGNOSTIC PANEL (CEPHEID) Specimen Type: NASOPHARYNGEAL Comment: Cepheid GeneXpert (618) Ordering Provider: LUCAS HAWTHORNE Report Released Date/Time: Jan 27, 2024 04:28 PM Reporting Lab: [facility] [address] Performing Lab: [facility] [address] COVID-19 (CEPHEID) Not Detected Not Detected Jan 28, 2024 12:35 AM [facility] HEPARIN APTT Specimen Type: PLASMA Comment: Critical Value Reported To: Deena Oliveros PharmD 01/28/24 @0110 HV. Critical value report confirmed. Ordering Provider: NATALIE ORDOÑEZ Report Released Date/Time: Jan 27, 2024 07:18 PM Reporting Lab: [facility] [address] Performing Lab: [facility] [address] HEPARIN APTT 133.9 s HH 48.0-92.0 Jan 28, 2024 12:35 AM [facility] TROPONIN I, HS Specimen Type: PLASMA Comment: Critical value previously reported on patient. Ordering Provider: BRANDON MEJIA Report Released Date/Time: Jan 27, 2024 09:15 PM Reporting Lab: [facility] [address] Performing Lab: [facility] [address] TROPONIN I, HS 158 HH <35 Jan 27, 2024 09:22 PM [facility] TROPONIN I, HS Specimen Type: PLASMA Comment: Critical value previously reported on patient. Ordering Provider: BASHIR CARVAJAL Report Released Date/Time: Jan 27, 2024 08:38 PM Reporting Lab: [facility] [address] Performing Lab: [facility] [address] TROPONIN I, HS 146 HH <35 Jan 27, 2024 06:52 PM [facility] TROPONIN I, HS Specimen Type: PLASMA Comment: Critical Value Reported To: Brandon Mejia MD 01/27/24 @[address] [place] [address]. Critical value report confirmed. Ordering Provider: BASHIR CARVAJAL Report Released Date/Time: Jan 27, 2024 04:54 PM Reporting Lab: [facility] [address] Performing Lab: [facility] [address] TROPONIN I, HS 136 HH <35 Jan 27, 2024 06:52 PM [facility] CBC Specimen Type: BLOOD No comment entered. Ordering Provider: BASHIR CARVAJAL Report Released Date/Time: Jan 27, 2024 04:54 PM Reporting Lab: [facility] [address] Performing Lab: [facility] [address] WBC 6.0 4.0-11.0 RBC 3.91 L 4.60-6.20 HGB 12.1 g/dL L 13.5-17.9 HCT 36.5 L 41.0-54.0 MCV 93.4 fL 80.0-100.0 MCH 30.9 pg 27.0-33.0 MCHC 33.2 g/dL 32.0-37.5 PLT 177 150-400 MPV 10.7 fL 9.1-13.0 RDW 12.4 11.5-14.5 Jan 27, 2024 06:52 PM [facility] BASIC METABOLIC PANEL+MG Specimen Type: PLASMA No comment entered. Ordering Provider: BASHIR CARVAJAL Report Released Date/Time: Jan 27, 2024 04:54 PM Reporting Lab: [facility] [address] Performing Lab: [facility] [address] CREATININE 1.3 mg/dL H 0.7-1.2 UREA NITROGEN [...] and tobacco- related health factors from the CT facility where the Encounter took place. Current Smoking Status This section includes the most current smoking, or tobacco-related health factor, from the CT facility where the Encounter took place. Date/Time Current Smoking Status Comment Facil ity Dec 14, 2023 11:30 AM VA-TOBACCO FORMER USER [facility] Tobacco Use History This section includes a history of the smoking, or tobacco-related health factors, that were collected on or before the date of the Encounter. The data comes from the CT facility where the Encounter took place. Date/Time [...] ALL of a patient's completed or amended CT Advance and Rescinded Directives. The entries below indicate that a directive exists for the patient, but an actual copy is not included with this document. The data comes from all CT facilities. Date Advance Directives Provider Source August [...] the Encounter. The data comes from all CT treatment facilities. Date/Time Pathology Report Provider Source Jan 06, 2024 11:16 AM LR SURGICAL PATHOL OGY REPORT: LOCAL TITLE: LR SURGICAL PATHOLOGY REPORT STANDARD TITLE: PATHOLOGY REPORT DATE OF NOTE: JAN 06, 2024@11:16:39 ENTRY DATE: JAN 06, 2024@11:16:39 AUTHOR: JOSE REESE COSIGNER: URGENCY: STATUS: COMPLETED $APHDR Reporting Lab: [facility] [CLIA# [id number]] [place] [address] - - - - - - - [...] - PATHOLOGY REPORT Accession No. [id number] - - - - - - - [...] - PATHOLOGY REPORT Accession No. [id number] - - - - - - - [...] Pathology Report Performed By: [facility] [CLIA# [id number]] [place] [address] $FTR - - - - - - [...] - - MADYSON,GERI NUNEZ STANDARD FORM 515 ID:[id number] SEX:M :1935 AGE: 88 LOC:90471 PCP: Sariah Gomes MD /shelly/ JOSE REESE M.D. STAFF PATHOLOGIST Signed: 01/06/2024 11:16 JOSE REESE [facility] Encounter Notes: All associated encounter notes This [...] 13:22 /shelly/ JULIET SMART RESIDENT BC [place] [facility]
--- OUTSIDE RECORDS SUMMARY | 2024-03-10 19:40 | XMS_ITS | Encounter Summary ---
Author Name [facility] of [place] Organization [place] Address [address] [place] [id number] Care Team Providers Care Cottrell Blower Name Role Phone SARIAH GOMES Primary Care [...] PART B Sep 09, 2002 PART B [id number] JOAQUIN COUGHLIN S PATIENT MEDICARE (WNR) MEDICARE (M) PART A Sep 09, 2002 PART A [id number] NULL,JOAQUIN S PATIENT MEDICARE (WNR) MEDICARE (M) PART A Sep 09, 2002 PART A [id number] [id number] NULLJOAQUIN S PATIENT MEDICARE (WNR) MEDICARE (M) PART B Sep 09, 2002 PART B [id number] JOAQUIN COUGHLIN S PATIENT Selected Encounter [...] activities for the patient from all [facility]. This section includes future appointments and future orders which are active, pending or scheduled. Future Appointments This section includes appointments that were scheduled to occur 6 months from the date of the Encounter, up to a maximum of 20 appointments. The data comes from all [facility]. Appointment Date/Time Appointment Type Appointme nt Facility Name Feb 17, 2024 01:00 PM [facility] [place] [facility] Feb 21, 2024 10:00 AM AMBULATORY - MEDICINE [facility] Feb 24, 2024 12:15 PM AMBULATORY - MEDICINE [facility] Feb 24, 2024 01:00 PM AMBULATORY - MEDICINE [facility] Mar 02, 2024 01:00 PM AMBULATORY - [facility]AB [facility] Apr 26, 2024 10:00 AM AMBULATORY - MEDICINE [facility] Jul 31, 2024 09:20 AM AMBULATORY - SURGERY [facility] Active, Pending, and Scheduled Orders This section includes a listing of several types of active, pending, and scheduled orders, including clinic medications orders, diagnostic test orders, procedure orders and consult orders; where the start date of the order is 45 days before the date of the Encounter or 45 days after the date of theEncounter. The data comes from all [facility]. Test Date/Time Test Type Test Details Facility Name Jan 18, 2024 04:23 PM Consult Order COMMUNITY CARE-ECHOCARDIOGRAPHY Cons [facility] [employer] [facility] Jan 19, 2024 12:10 PM Consult Order COMMUNITY CARE-DERMATOLOGY Cons [facility] [employer] Jan 28, 2024 02:00 AM Laboratory - Chemi stry Order TROPONIN I, HS PLASMA STAT [facility] Mar 01, 2024 03:28 PM Consult Order IFC TRAVEL ING [facility]AL [facility]ULT[facility] Cons Senior [facility] Lab Results: +/- 30 days of the [...] 10:13 AM Reporting Lab: [facility] [address] Performing Lab: [facility] [address] HEMOGLOBIN A1C 5.4 4.0-6.0 Jan 31, 2024 10:50 AM [facility] LIPID PANEL,FASTING Specimen Type: PLASMA No comment entered. Ordering Provider: JULIET SMART Report Released Date/Time: Jan 31, 2024 10:13 AM Reporting Lab: [facility] [address] Performing Lab: [facility] [address] CHOLESTEROL 125 mg/dL <199 TRIGLYCERIDE 95 mg/dL <149 .HDL 37 mg/dL L >40 LDL CALCULATION 69 mg/dL <99 VLDL CALCULATION 19 mg/dL <29 NON HDL CHOLESTEROL 88 mg/dL <129 Jan 31, 2024 07:29 AM [facility] CBC Specimen Type: BLOOD No comment entered. Ordering Provider: BASHIR CARVAJAL Report Released Date/Time: Jan 30, 2024 01:03 PM Reporting Lab: [facility] [address] Performing Lab: [facility] [address] WBC 7.3 4.0-11.0 RBC 3.83 L 4.60-6.20 [...] 01:03 PM Reporting Lab: [facility] [address] Performing Lab: [facility] [address] CREATININE 1.3 mg/dL H 0.7-1.2 UREA NITROGEN [...] 10:43 AM Reporting Lab: [facility] [address] Performing Lab: [facility] [address] POC ACT 241 s H 84-139 Jan 30, 2024 10:08 AM [facility] POC ACT Specimen Type: BLOOD No comment entered. Ordering Provider: RODO CHRISTY Report Released Date/Time: Jan 30, 2024 10:14 AM Reporting Lab: [facility] [address] Performing Lab: [facility] [address] POC ACT 289 s H 84-139 Jan 30, 2024 09:34 AM [facility] POC ACT Specimen Type: BLOOD No comment entered. Ordering Provider: RODO CHRISTY Report Released Date/Time: Jan 30, 2024 10:14 AM Reporting Lab: [facility] [address] Performing Lab: [facility] [address] POC ACT 294 s H 84-139 Jan 30, 2024 05:37 AM [facility] HEPARIN APTT Specimen Type: PLASMA No comment entered. Ordering Provider: BASHIR CARVAJAL Report Released Date/Time: Jan 29, 2024 09:43 PM Reporting Lab: [facility] [address] Performing Lab: [facility] [address] HEPARIN APTT 83.2 s 48.0-92.0 Jan 30, 2024 05:37 AM [facility] BASIC METABOLIC PANEL+MG Specimen Type: PLASMA No comment entered. Ordering Provider: BASHIR CARVAJAL Report Released Date/Time: Jan 29, 2024 12:19 PM Reporting Lab: [facility] [address] Performing Lab: [facility] [address] CREATININE 1.4 mg/dL H 0.7-1.2 UREA NITROGEN [...] Value Reported To: Tomasa Delcid PharmD 01/29/24 @[address] [place] [address]. Critical value report confirmed. Ordering Provider: MERY SAMUEL Report Released Date/Time: Jan 29, 2024 03:00 PM Reporting Lab: [facility] [address] Performing Lab: [facility] [address] HEPARIN APTT 214.6 s HH 48.0-92.0 Jan 29, 2024 06:24 AM [facility] BASIC METABOLIC PANEL+MG Specimen Type: PLASMA No comment entered. Ordering Provider: BASHIR CARVAJAL Report Released Date/Time: Jan 28, 2024 04:36 PM Reporting Lab: [facility] [address] Performing Lab: [facility] [address] CREATININE 1.6 mg/dL H 0.7-1.2 UREA NITROGEN [...] 05:54 AM Reporting Lab: [facility] [address] Performing Lab: [facility] [address] EXTRA PURPLE TUBE RECEIVED Jan 28, 2024 05:53 AM [facility] ALBUMIN Specimen Type: PLASMA No comment entered. Ordering Provider: BASHIR CARVAJAL Report Released Date/Time: Jan 27, 2024 04:49 PM Reporting Lab: [facility] [address] Performing Lab: [facility] [address] ALBUMIN 3.5 g/dL 3.5-5.2 Jan 28, 2024 05:53 AM [facility] BASIC METABOLIC PANEL+MG Specimen Type: PLASMA No comment entered. Ordering Provider: BASHIR CARVAJAL Report Released Date/Time: Jan 27, 2024 05:44 PM Reporting Lab: [facility] [address] Performing Lab: [facility] [address] CREATININE 1.4 mg/dL H 0.7-1.2 UREA NITROGEN [...] 09:15 PM Reporting Lab: [facility] [address] Performing Lab: [facility] [address] TROPONIN I, HS 128 HH <35 Jan 28, 2024 12:35 AM [facility] COVID-19 DIAGNOSTIC PANEL (CEPHEID) Specimen Type: NASOPHARYNGEAL Comment: Cepheid GeneXpert (618) Ordering Provider: LUCAS HAWTHORNE Report Released Date/Time: Jan 27, 2024 04:28 PM Reporting Lab: [facility] [address] Performing Lab: [facility] [address] COVID-19 (CEPHEID) Not Detected Not Detected Jan 28, 2024 12:35 AM [facility] HEPARIN APTT Specimen Type: PLASMA Comment: Critical Value Reported To: Deena Oliveros PharmD 01/28/24 @0110 . Critical value report confirmed. Ordering Provider: NATALIE ORDOÑEZ Report Released Date/Time: Jan 27, 2024 07:18 PM Reporting Lab: [facility] [address] Performing Lab: [facility] [address] HEPARIN APTT 133.9 s HH 48.0-92.0 Jan 28, 2024 12:35 AM [facility] TROPONIN I, HS Specimen Type: PLASMA Comment: Critical value previously reported on patient. Ordering Provider: BRANDON MEJIA Report Released Date/Time: Jan 27, 2024 09:15 PM Reporting Lab: [facility] [address] Performing Lab: [facility] [address] TROPONIN I, HS 158 HH <35 Jan 27, 2024 09:22 PM [facility] TROPONIN I, HS Specimen Type: PLASMA Comment: Critical value previously reported on patient. Ordering Provider: BASHIR CARVAJAL Report Released Date/Time: Jan 27, 2024 08:38 PM Reporting Lab: [facility] [address] Performing Lab: [facility] [address] TROPONIN I, HS 146 HH <35 Jan 27, 2024 06:52 PM [facility] TROPONIN I, HS Specimen Type: PLASMA Comment: Critical Value Reported To: Brandon Mejia MD 01/27/24 @[address] [place] [address]. Critical value report confirmed. Ordering Provider: BASHIR CARVAJAL Report Released Date/Time: Jan 27, 2024 04:54 PM Reporting Lab: [facility] [address] Performing Lab: [facility] [address] TROPONIN I, HS 136 HH <35 Jan 27, 2024 06:52 PM [facility] BASIC METABOLIC PANEL+MG Specimen Type: PLASMA No comment entered. Ordering Provider: BASHIR CARVAJAL Report Released Date/Time: Jan 27, 2024 04:54 PM Reporting Lab: [facility] [address] Performing Lab: [facility] [address] CREATININE 1.3 mg/dL H 0.7-1.2 UREA NITROGEN 30 mg/dL H 8-26 GLUCOSE 141 mg/dL H 70-100 SODIUM 142 mmol/L 136-145 POTASSIUM 3.4 mmol/L L 3.5-5.1 CHLORIDE 106 mmol/L 98-107 CO2 27 mmol/L 22-29 CALCIUM 8.8 mg/dL 8.4-10.2 MAGNESIUM 2.2 mg/dL 1.6-2.6 ANION GAP 9 mmol/L 5-15 .CREAT EGFR(CKD-EPI) 54 L >60 Jan 27, 2024 06:52 PM [facility] CBC Specimen Type: BLOOD No comment entered. Ordering Provider: BASHIR CARVAJAL Report Released Date/Time: Jan 27, 2024 04:54 PM Reporting Lab: [facility] [address] Performing Lab: [facility] [address] WBC 6.0 4.0-11.0 RBC 3.91 L 4.60-6.20 [...] Lab: [facility] [CLIA# [id number]] [place] [address] - - - - - - - [...] - PATHOLOGY REPORT Accession No. [id number] - - - - - - - [...] - PATHOLOGY REPORT Accession No. [id number] - - - - - - - [...] 0.1 cm. The specimen is inked. CE. (D[place] [place]CROSCOPIC DESCRIPTION: Microscopic examination performed. CI. DIAGNOSES: [...] By: [facility] [CLIA# [id number]] [place] [address] $FTR - - - - - - [...] - - MADYSON,GERI NUNEZ STANDARD FORM 515 ID:[id number] SEX:M :1935 AGE: 88 LOC:54617 PCP: Sariah Gomes MD /shelly/ JOSE REESE [...] CHILDS EXP COSIGNER: URGENCY: STATUS: COMPLETED see RTB-[employer]. /shelly/ BRIGID CHILDS Form Coverer Signed: 02/03/2024 19:35 BRIGID CHILDS [facility]
--- OUTSIDE RECORDS SUMMARY | 2024-03-10 19:40 | XMS_ITS | Encounter Summary ---
Author Name [facility] [place] Organization [facility] [place] Address [address] [place] [address] Care Team Providers Care Investor Name Role Phone SARIAH GOMES Primary Care [...] PART A Sep 09, 2002 PART A [id number] [phone] JOAQUIN COUGHLIN S PATIENT MEDICARE (WNR) MEDICARE (M) PART B Sep 09, 2002 PART B [id number] JOAQUIN COUGHLIN S PATIENT MEDICARE (WNR) MEDICARE (M) PART A Sep 09, 2002 PART A [id number] JOAQUIN COUGHLIN S PATIENT MEDICARE (WNR) MEDICARE (M) PART B Sep 09, 2002 PART B [id number] JOAQUIN COUGHLIN S PATIENT Selected Encounter This section includes the information on record at [place] for the Encounter. Date/Time Encounter Type Encounter Description Reason Provider Source Feb 21, 2024 10:00 AM OFFICE O/P EST HI 40 MIN PRIMARY CARE/MEDICINE ICD-10-CM I25.10 [place] heart disease of [place] coronary artery w/o ang pctrs SARIAH GOMES IHE Encounter Template Text not used by [place] Assessments - Encounter Diagnoses This section includes the primary and secondary diagnoses documented for the Encounter. Date/Time Primary/Secondary Diagnosis Diagnosis Name Provider Source Feb 21, 2024 10:41 AM PRIMARY Aths[place] heart disease of [place] coronary artery w/o ang pctrs MOLLY GOMES [facility] Feb 21, 2024 10:41 AM SECONDARY Adjustment disorder with mixed anxiety and depressed mood NICOLE GOMESL Dion Meza [facility] Feb 21, 2024 10:41 AM SECONDARY Chronic kidney disease, unspecified NICOLE GOMESL Dion Meza [facility] Feb 21, 2024 10:41 AM SECONDARY Hyperlipidemia, unspecified MOLLY GOMES [facility] Feb 21, 2024 10:41 AM SECONDARY Hypertensive chronic kidney disease w stg 1-4/unsp chr kdny MOLLY GOMES [facility] Feb 21, 2024 10:41 AM SECONDARY Hypothyroidism, unspecified MOLLY GOMES [facility] Plan of Treatment: Future Appointments (+ 6 months) and Future Tests (+/- 45 days) The Plan of Treatment section includes future care activities for the patient from [facility] [place] [facility]. This section includes future appointments and future orders which are active, pending or scheduled. Future Appointments This section includes appointments that were scheduled to occur 6 months from the date of the Encounter, up to a maximum of 20 appointments. The data comes from all [facility]. Appointment Date/Time Appointment Type Appointme nt Facility Name Feb 24, 2024 12:15 PM AMBULATORY - [facility]ICINE [facility] Feb 24, 2024 01:00 PM AMBULATORY - MEDICINE [facility] Mar 02, 2024 01:00 PM AMBULATORY - REHAB MEDICIN E [facility] Apr 26, 2024 10:00 AM AMBULATORY - MEDICINE [facility] Jul 31, 2024 09:20 AM AMBULATORY - SURGERY [facility] Active, Pending, and Scheduled Orders This section includes a listing of several types of active, pending, and scheduled orders, including clinic medications orders, diagnostic test orders, procedure orders and consult orders; where the start date of the order is 45 days before the date of the Encounter or 45 days after the date of theEncounter. The data comes from all [place] treatment facilities. Test Date/Time Test Type Test Details Facility Name Jan 18, 2024 04:23 PM Consult Order COMMUNITY CARE-ECHOCARDIOGRAPHY Cons Ditch Worker's Choice [facility] Jan 19, 2024 12:10 PM Consult Order COMMUNITY CARE-DERMATOLOGY Cons [facility] Choice [facility] Jan 28, 2024 02:00 AM Laboratory - Chemi stry Order TROPONIN I, HS PLASMA STAT [facility] Mar 01, 2024 03:28 PM Consult Order IFC TRAVEL ING [facility] Cons Ditch Worker's Choice STAT [facility] Lab Results: +/- 30 [...] Comment Jan 31, 2024 10:50 AM [facility] HEMOGLOBIN A1C Specimen Type: [...] Jan 31, 2024 10:13 AM Reporting Lab: [facility] [phone] Performing Lab: [facility] [address] HEMOGLOBIN A1C 5.4 4.0-6.0 Jan 31, 2024 10:50 AM [facility] LIPID PANEL,FASTING Specimen Type: PLASMA No comment entered. Ordering Provider: JULIET SMART Report Released Date/Time: Jan 31, 2024 10:13 AM Reporting Lab: [facility] [address] Performing Lab: [facility] [address] CHOLESTEROL 125 mg/dL <199 TRIGLYCERIDE 95 mg/dL <149 .HDL 37 mg/dL L >40 LDL CALCULATION 69 mg/dL <99 VLDL CALCULATION 19 mg/dL <29 NON HDL CHOLESTEROL 88 mg/dL <129 Jan 31, 2024 07:29 AM [facility] CBC Specimen Type: BLOOD No comment entered. Ordering Provider: BASHIR CARVAJAL Report Released Date/Time: Jan 30, 2024 01:03 PM Reporting Lab: [facility] [address] Performing Lab: [facility] [address] WBC 7.3 4.0-11.0 RBC 3.83 L 4.60-6.20 HGB 11.4 g/dL L 13.5-17.9 HCT 35.1 L 41.0-54.0 MCV 91.6 fL 80.0-100.0 MCH 29.8 pg 27.0-33.0 MCHC 32.5 g/dL 32.0-37.5 PLT 193 150-400 MPV 10.7 fL 9.1-13.0 RDW 12.2 11.5-14.5 Jan 31, 2024 07:29 AM [facility] BASIC METABOLIC PANEL+MG Specimen Type: PLASMA No comment entered. Ordering Provider: BASHIR CARVAJAL Report Released Date/Time: Jan 30, 2024 01:03 PM Reporting Lab: [facility] [address] Performing Lab: [facility] [address] CREATININE 1.3 mg/dL H 0.7-1.2 UREA NITROGEN 24 mg/dL 8-26 GLUCOSE 91 mg/dL 70-100 SODIUM 138 mmol/L 136-145 POTASSIUM 4.1 mmol/L 3.5-5.1 CHLORIDE 108 mmol/L H 98-107 CO2 23 mmol/L 22-29 CALCIUM 8.8 mg/dL 8.4-10.2 MAGNESIUM 2.1 mg/dL 1.6-2.6 ANION GAP 7 mmol/L 5-15 .CREAT EGFR(CKD-EPI) 54 L >60 Jan 30, 2024 10:37 AM [facility] POC ACT Specimen Type: BLOOD No comment entered. Ordering Provider: RODO CHRISTY Report Released Date/Time: Jan 30, 2024 10:43 AM Reporting Lab: [facility] [phone] Performing Lab: [facility] [address] POC ACT 241 s H 84-139 Jan 30, 2024 10:08 AM [facility] POC ACT Specimen Type: BLOOD No comment entered. Ordering Provider: RODO CHRISTY Report Released Date/Time: Jan 30, 2024 10:14 AM Reporting Lab: [facility] [address] Performing Lab: [facility] [address] POC ACT 289 s H 84-139 Jan 30, 2024 09:34 AM [facility] POC ACT Specimen Type: BLOOD No comment entered. Ordering Provider: RODO CHRISTY Report Released Date/Time: Jan 30, 2024 10:14 AM Reporting Lab: [facility] [address] Performing Lab: [facility] [address] POC ACT 294 s H 84-139 Jan 30, 2024 05:37 AM [facility] HEPARIN APTT Specimen Type: PLASMA No comment entered. Ordering Provider: BASHIR CARVAJAL Report Released Date/Time: Jan 29, 2024 09:43 PM Reporting Lab: [facility] [address] Performing Lab: [facility] [address] HEPARIN APTT 83.2 s 48.0-92.0 Jan 30, 2024 05:37 AM [facility] BASIC METABOLIC PANEL+MG Specimen Type: PLASMA No comment entered. Ordering Provider: BASHIR CARVAJAL Report Released Date/Time: Jan 29, 2024 12:19 PM Reporting Lab: [facility] [address] Performing Lab: [facility] [address] CREATININE 1.4 mg/dL H 0.7-1.2 UREA NITROGEN 27 mg/dL H 8-26 GLUCOSE 95 mg/dL 70-100 SODIUM 139 mmol/L 136-145 POTASSIUM 4.2 mmol/L 3.5-5.1 CHLORIDE 109 mmol/L H 98-107 CO2 24 mmol/L 22-29 CALCIUM 9.0 mg/dL 8.4-10.2 MAGNESIUM 2.1 mg/dL 1.6-2.6 ANION GAP 6 mmol/L 5-15 .CREAT EGFR(CKD-EPI) 49 L >60 Jan 29, 2024 09:02 PM [facility] HEPARIN APTT Specimen Type: PLASMA Comment: Critical Value Reported To: Tomasa Delcid PharmD 01/29/24 @2129 HV. Critical value report confirmed. Ordering Provider: MERY SAMUEL Report Released Date/Time: Jan 29, 2024 03:00 PM Reporting Lab: [facility] [address] Performing Lab: [facility] [address] HEPARIN APTT 214.6 s HH 48.0-92.0 Jan 29, 2024 06:24 AM [facility] BASIC METABOLIC PANEL+MG Specimen Type: PLASMA No comment entered. Ordering Provider: BASHIR CARVAJAL Report Released Date/Time: Jan 28, 2024 04:36 PM Reporting Lab: [facility] [address] Performing Lab: [facility] [address] CREATININE 1.6 mg/dL H 0.7-1.2 UREA NITROGEN 27 mg/dL H 8-26 GLUCOSE 92 mg/dL 70-100 SODIUM 140 mmol/L 136-145 POTASSIUM 4.2 mmol/L 3.5-5.1 CHLORIDE 110 mmol/L H 98-107 CO2 25 mmol/L 22-29 CALCIUM 8.8 mg/dL 8.4-10.2 MAGNESIUM 2.1 mg/dL 1.6-2.6 ANION GAP 5 mmol/L 5-15 .CREAT EGFR(CKD-EPI) 42 L >60 Jan 28, 2024 05:54 AM [facility] EXTRA PURPLE TUBE Specimen Type: BLOOD No comment entered. Ordering Provider: RODO CHRISTY Report Released Date/Time: Jan 28, 2024 05:54 AM Reporting Lab: [facility] [address] Performing Lab: [facility] [address] EXTRA PURPLE TUBE RECEIVED Jan 28, 2024 05:53 AM [facility] ALBUMIN Specimen Type: PLASMA No comment entered. Ordering Provider: BASHIR CARVAJAL Report Released Date/Time: Jan 27, 2024 04:49 PM Reporting Lab: [facility] [address] Performing Lab: [facility] [address] ALBUMIN 3.5 g/dL 3.5-5.2 Jan 28, 2024 05:53 AM [facility] BASIC METABOLIC PANEL+MG Specimen Type: PLASMA No comment entered. Ordering Provider: BASHIR CARVAJAL Report Released Date/Time: Jan 27, 2024 05:44 PM Reporting Lab: [facility] [address] Performing Lab: [facility] [address] CREATININE 1.4 mg/dL H 0.7-1.2 UREA NITROGEN 28 mg/dL H 8-26 GLUCOSE 92 mg/dL 70-100 SODIUM 140 mmol/L 136-145 POTASSIUM 4.4 mmol/L 3.5-5.1 CHLORIDE 109 mmol/L H 98-107 CO2 23 mmol/L 22-29 CALCIUM 8.8 mg/dL 8.4-10.2 MAGNESIUM 2.1 mg/dL 1.6-2.6 ANION GAP 8 mmol/L 5-15 .CREAT EGFR(CKD-EPI) 49 L >60 Jan 28, 2024 05:52 AM [facility] TROPONIN I, HS Specimen Type: PLASMA Comment: Critical value previously reported on patient. Ordering Provider: BRANDON MEJIA Report Released Date/Time: Jan 27, 2024 09:15 PM Reporting Lab: [facility] [address] Performing Lab: [facility] [phone] TROPONIN I, HS 128 HH <35 Jan 28, 2024 12:35 AM [facility] COVID-19 DIAGNOSTIC PANEL (CEPHEID) Specimen Type: NASOPHARYNGEAL Comment: Cepheid GeneXpert (618) Ordering Provider: LUCAS HAWTHORNE Report Released Date/Time: Jan 27, 2024 04:28 PM Reporting Lab: [facility] [phone] Performing Lab: [facility] [address] COVID-19 (CEPHEID) Not Detected Not Detected Jan 28, 2024 12:35 AM [facility] HEPARIN APTT Specimen Type: PLASMA Comment: Critical Value Reported To: Deena Oliveros PharmD 01/28/24 @0110 HV. Critical value report confirmed. Ordering Provider: NATALIE ORDOÑEZ Report Released Date/Time: Jan 27, 2024 07:18 PM Reporting Lab: [facility] [address] Performing Lab: [facility] [address] HEPARIN APTT 133.9 s HH 48.0-92.0 Jan 28, 2024 12:35 AM [facility] TROPONIN I, HS Specimen Type: PLASMA Comment: Critical value previously reported on patient. Ordering Provider: BRANDON MEJIA Report Released Date/Time: Jan 27, 2024 09:15 PM Reporting Lab: [facility] [address] Performing Lab: [facility] [address] TROPONIN I, HS 158 HH <35 Jan 27, 2024 09:22 PM [facility] TROPONIN I, HS Specimen Type: PLASMA Comment: Critical value previously reported on patient. Ordering Provider: BASHIR CARVAJAL Report Released Date/Time: Jan 27, 2024 08:38 PM Reporting Lab: [facility] [address] Performing Lab: [facility] [address] TROPONIN I, HS 146 HH <35 Jan 27, 2024 06:52 PM [facility] TROPONIN I, HS Specimen Type: PLASMA Comment: Critical Value Reported To: Brandon Mejia MD 01/27/24 @[address] [place] [address]. Critical value report confirmed. Ordering Provider: BASHIR CARVAJAL Report Released Date/Time: Jan 27, 2024 04:54 PM Reporting Lab: [facility] [address] Performing Lab: [facility] [address] TROPONIN I, HS 136 HH <35 Jan 27, 2024 06:52 PM [facility] BASIC METABOLIC PANEL+MG Specimen Type: PLASMA No comment entered. Ordering Provider: BASHIR CARVAJAL Report Released Date/Time: Jan 27, 2024 04:54 PM Reporting Lab: [facility] [address] Performing Lab: [facility] [address] CREATININE 1.3 mg/dL H 0.7-1.2 UREA NITROGEN 30 mg/dL H 8-26 GLUCOSE 141 mg/dL H 70-100 SODIUM 142 mmol/L 136-145 POTASSIUM 3.4 mmol/L L 3.5-5.1 CHLORIDE 106 mmol/L 98-107 CO2 27 mmol/L 22-29 CALCIUM 8.8 mg/dL 8.4-10.2 MAGNESIUM 2.2 mg/dL 1.6-2.6 ANION GAP 9 mmol/L 5-15 .CREAT EGFR(CKD-EPI) 54 L >60 Jan 27, 2024 06:52 PM [facility] CBC Specimen Type: BLOOD No comment entered. Ordering Provider: BASHIR CARVAJAL Report Released Date/Time: Jan 27, 2024 04:54 PM Reporting Lab: [facility] [address] Performing Lab: [facility] [address] WBC 6.0 4.0-11.0 RBC 3.91 L 4.60-6.20 [...] Pain Height Weight Body Mass Index Source Feb 21, 2024 09:52 AM 98.1 94 148/80 17 98 0 159 25 [facility] Social History: Smoking Status (Most [...] 2023 11:30 AM VA-TOBACCO FORMER USER [facility] Tobacco Use History This section includes a history of the smoking, or tobacco-related health factors, that were collected on or before the date of the Encounter. The data comes from the [place] facility where the Encounter took place. Date/Time Smoking Status/Tobacco Use Comment Coy brown Dec 14, 2023 11:30 AM VA-TOBACCO QUIT 15 YRS OR MORE [facility] Oct 13, 2022 01:30 PM VA-TOBACCO FORMER USER [facility] Oct 13, 2022 01:30 PM VA-TOBACCO QUIT 15 YRS OR MORE [facility] Jul 27, 2021 10:00 AM VA-TOBACCO FORMER USER [facility] Jul 27, 2021 10:00 AM VA-TOBACCO QUIT 15 YRS OR MORE [facility] Jan 02, 2020 09:00 AM VA-TOBACCO FORMER USER [facility] Jan 02, 2020 09:00 AM VA-TOBACCO QUIT 15 YRS OR MORE [facility] Jul 21, 2018 03:00 PM VA-TOBACCO FORMER USER [facility] Jul 21, 2018 03:00 PM VA-TOBACCO QUIT 15 YRS OR MORE [facility] Dec 24, 2016 08:01 AM FORMER TOBACCO USER 7Y OR GREATE R [facility] Dec 23, 2015 08:23 AM FORMER TOBACCO USE >1Y <7Y [facility] Dec 26, 2014 10:32 AM FORMER TOBACCO USER 7Y OR GREATE R [facility] August 13, 2013 08:22 AM LIFETIME NON-TOBACCO USER [facility] August 30, 2006 08:38 AM FORMER TOBACCO USER 7Y OR GREATE R [facility] Advance Directives: All historical and current Section Date Range: From patient's date of to the date document was created. This section includes ALL of a patient's completed or amended [place] Advance and Rescinded Directives. The entries below indicate that a directive exists for the patient, but an actual copy is not included with this document. The data comes from all [facility]. Date Advance Directives Provider Source August 30, 2006 ADVANCE DIRECTIVE ARGENIS CRAMER S [facility] Encounter Notes: All associated encounter notes This section contains the clinical notes associated to the Encounter. Date/Time Encounter Note(s) Provider Source Feb 21, 2024 09:53 AM INTERNAL MEDICINE OUTPATIENT NOTE: LOCAL TITLE: MEDICINE CLINIC NURSING NOTE STANDARD TITLE: INTERNAL MEDICINE OUTPATIENT NOTE DATE OF NOTE: FEB 21, 2024@09:53 ENTRY DATE: FEB 21, 2024@09:53:30 AUTHOR: HERMINIO SHAVER COSIGNER: URGENCY: STATUS: COMPLETED TYPE OF VISIT: Appointment Check In Type of appointment: In-person appointment REASON FOR VISIT: follow up from surgery/ recent weight loss ALLERGIES: Patient has answered NKA VITAL SIGNS: Blood Pressure: 148/80 (02/21/2024 09:52) RECHECK 146/78 Pulse: 94 (02/21/2024 09:52) Respiration: 17 (02/21/2024 09:52) Temperature: 98.1 F [36.7 C] (02/21/2024 09:52) Weight: 159 lb [72.12 kg] (02/21/2024 09:52) Height: 67 in [170.2 cm] (01/11/2024 13:25) BMI: 25.0 O2 Sat: 98% (02/21/2024 09:52) Pain: 0 (02/21/2024 09:52) PAIN SCREEN: Patient is not having significant pain that they wish to discuss with their provider today. MEDICATION Active Outpatient Medications (including Supplies): ASPIRIN 81MG EC TAB TAKE ONE TABLET BY MOUTH EVERY DAY FOR ACTIVE HEART DISEASE ATORVASTATIN CALCIUM 40MG TAB TAKE ONE TABLET BY MOUTH ACTIVE EVERY DAY FOR CHOLESTEROL CLOPIDOGREL BISULFATE 75MG TAB TAKE ONE TABLET BY MOUTH ACTIVE EVERY DAY FOR 1 YEAR AFTER STENT THROUGH 01/28/25 HCTZ 25/LISINOPRIL 20MG TAB TAKE 1 TABLET BY MOUTH EVERY ACTIVE (S) MORNING FOR BLOOD PRESSURE. ISOSORBIDE MONONITRATE 30MG SA TAB TAKE ONE TABLET BY ACTIVE MOUTH EVERY DAY FOR CHEST PAIN METOPROLOL SUCCINATE 25MG SA TAB TAKE ONE TABLET BY MOUTH ACTIVE EVERY DAY FOR CHEST PAIN POLYETHYLENE GLYCOL 3350 ORAL PWDR TAKE 17 GRAMS BY MOUTH ACTIVE EVERY DAY NEEDED FOR CONSTIPATION SILVER SULFADIAZINE 1% CREAM APPLY TO AFFECTED AREA ACTIVE TOPICALLY TWICE A DAY NEEDED FOR IRRITATED SKIN Non-VA MULTI/MINERAL/ANTIOXIDANT TAB MOUTH ACTIVE Over the Counter/Herbal Medications: The patient denies taking any outside medications or herbals. /shelly/ HERMINIO Bae [facility] Signed: 02/21/2024 09:59 HERMINIO SHAVER [facility] Feb 21, 2024 09:30 AM INTERNAL MEDICINE NOTE: LOCAL TITLE: MEDICINE CLINIC NOTE STANDARD TITLE: INTERNAL MEDICINE NOTE DATE OF NOTE: FEB 21, 2024@09:30 ENTRY DATE: FEB 16, 2024@11:56:05 AUTHOR: SARIAH GOMES EXP COSIGNER: URGENCY: STATUS: COMPLETED SUBJECT: CLINIC VISIT GENERAL INTERNAL MEDICINE CLINIC PROGRESS NOTE GERI COUGHLIN is a 88 year old MALE here for CHIEF COMPLAINT: chronic disease management THIS AN ESTABLISHED PATIENT IN THE PRIMARY CARE CLINIC HPI: Geri has a medical history notable for CAD (NSTEMI s/p PCI to LAD 01/30/24), HTN, HLD, Hypothyroidism, CKD 3,Dysphagia, Allergic rhinitis, BCC skin. Today, we reviewed 's interim chart notes (as summarized below), medications and any need for refills, test results, routine health care maintenance and any other acute and chronic health conditions. Additional concerns today: Some irritability/anger/anxiety/de pression since PCI of LAD and starting new meds. Improved now. Stress with 2 daughters, and received a call during our visit today that his grand daughter was in a serious accident and is being intubated. No chest symptoms, good exercise tolerance. Echo 4 days ago at [place] CHART REVIEW: Community care echo has been ordered Hospitalization 01/26-01/30/24 Nuclear stress test was notable for inferior and apical ischemia with Q waves in inferior leads with some kelly-infarct ischemia. Presented to ED in [place] with chest pain and was found to have no new EKG changes, troponin was elevated to 0.18. Was started on heparin drip loaded with aspirin and transferred to [facility] for coronary angiogram. 01/30/24: Cardiac cath PROCEDURE SUMMARY One-vessel coronary artery disease with serial severe stenosis in the mid LAD. PCI of the LAD was performed 01/18/24 Cardiology consult Recommendations: Echocardiogram. If abnormal findings, (reduced LV function, regional wall abnormalities, or valvular disease), then re-consult cardiology. Consider NM stress test. If [place] has recurrent chest pain, consider ordering a NM stress test to evaluation for ischemia. 01/11/24: At our visit, we addressed lifestyle modifications/dietary habits, constipation (resolved), one bout of left anterior chest pressure at rest w/o associated symptoms, reviewed test results. Plan at that time: EKG that day (my read): sinus channing rate 46, 1st degree AVB, leftward axis, normal QRS, QT intervals. Q waves inferior leads Comparison: in [place] 2006 Cardiology consult Advised daily aspirin and NTG to have on hand, advised to seek emergency care if symptoms recur. RTC one month 01/05/24: Most recent Dermatology visit 12/14/23: At our visit, we addressed new constipation, unexplained weight loss (weighed 185 in 2019, 160 a year ago, now 153), not eating and hydrating as much as he should, reviewed pertinent tests and customs consultant notes Plan at that time: Labs (see orders) May need EGD, colonoscopy Nutrition referral Miralax RTC one month Note: agrawal in [place], leaving next month The following preventive care screening and other chronic disease management records were reviewed: Immunizations: offered any immunizations that are due, see rooming staff note Blood pressure trends (home, clinic): reviewed Diet, Exercise: reviewed Labs : See test results section See nursing note regarding the following screening: Pain, suicide, depression, alcohol use, toxic exposures, fall risk, skin screen, home abuse/violence, nutriton, health education, tobacco use use. Today's nursing notes were reviewed. Active problems - Computerized Problem List is the source for the followin. Hydrocele Nos 2. Cataract, Senile, Unsp 3. Hypertension (SNOMED CT 78683450) 4. Hypothyroidism (SNOMED CT 01980742) 5. Hyperlipidemia 6. Hypermetropia/Hyperopia 7. Astigmatism, Unspec 8. Presbyopia 9. Benign prostatic hyperplasia 10. Chronic kidney disease stage 3 11. Actinic keratosis 12. Dysphagia 13. Allergic rhinitis 14. Basal cell carcinoma of skin 15. Pain of left shoulder joint 16. Basal cell carcinoma of neck - 11/19/2022 17. CAD - Coronary artery disease - NSTEMI, 01/30/2024 had PCI to mid LAD SURGICAL HISTORY SEP 15, 2015 Proc: ce/iol left eye AUGUST 21, 2015 Proc: KPE/IOL right Left and right open inguinal hernia repairs Right wrist surgery FAMILY HISTORY Sister: Lung [place] Brother: Stomach [place] Brother: CAD/[place] SOCIAL HISTORY Relationships/Living: Lives with (Miah). Has children. 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 Hx: [employer] Tobacco use: None currently (former smoker ~1 PPD x 35 years) Alcohol use: 1-2 drinks/week Recreational Substance: None Active and Recently Outpatient Medications (including Supplies): Active Outpatient Medications Status 1) ASPIRIN 81MG EC TAB TAKE ONE TABLET BY MOUTH EVERY ACTIVE DAY FOR HEART DISEASE 2) ATORVASTATIN CALCIUM 40MG TAB TAKE ONE TABLET BY ACTIVE MOUTH EVERY DAY FOR CHOLESTEROL 3) CLOPIDOGREL BISULFATE 75MG TAB TAKE ONE TABLET BY ACTIVE MOUTH EVERY DAY FOR 1 YEAR AFTER STENT THROUGH 01/28/25 4) HCTZ 25/LISINOPRIL 20MG TAB TAKE 1 TABLET BY MOUTH ACTIVE (S) EVERY MORNING FOR BLOOD PRESSURE. 5) ISOSORBIDE MONONITRATE 30MG SA TAB TAKE ONE TABLET BY ACTIVE MOUTH EVERY DAY FOR CHEST PAIN 6) METOPROLOL SUCCINATE 25MG SA TAB TAKE ONE TABLET BY ACTIVE MOUTH EVERY DAY FOR CHEST PAIN 7) POLYETHYLENE GLYCOL 3350 ORAL PWDR TAKE 17 GRAMS BY ACTIVE MOUTH EVERY DAY NEEDED FOR CONSTIPATION 8) SILVER SULFADIAZINE 1% CREAM APPLY TO AFFECTED AREA ACTIVE TOPICALLY TWICE A DAY NEEDED FOR IRRITATED SKIN Active Non-VA Medications Status 1) Non-VA MULTI/MINERAL/ANTIOXIDANT TAB MOUTH ACTIVE ALLERGIES: No known allergies EXAM: VITAL SIGNS: Blood Pressure: 148/80 (02/21/2024 09:52) RECHECK 146/78 Pulse: 94 (02/21/2024 09:52) Respiration: 17 (02/21/2024 09:52) Temperature: 98.1 F [36.7 C] (02/21/2024 09:52) Weight: 159 lb [72.12 kg] (02/21/2024 09:52) Height: 67 in [170.2 cm] (01/11/2024 13:25) BMI: 25.0 O2 Sat: 98% (02/21/2024 09:52) PREVIOUS VITAL SIGNS: Blood Pressure: 138/79 (01/11/2024 13:25) Weight: 151 lb [68.49 kg] (01/11/2024 13:25) Blood Pressure: 156/82 (12/14/2023 11:26) BP150/83 repeat Weight: 153 lb [69.40 kg] (12/14/2023 11:26) Blood Pressure: 165/80 (10/13/2022 13:04) recheck 164/84 [...] signs of agitation TEST RESULTS: Collection time: Jan 31, 2024@10:50 Test Name Result Units Range --------- ------ ----- ----- CHOLESTEROL 125 mg/dL Ref: <=199 TRIGLYCERIDE 95 mg/dL Ref: <=149 .HDL 37 L mg/dL Ref: >=40 LDL CALCULATION 69 mg/dL Ref: <=99 HEMOGLOBIN A1C 5.4 % 4.0 - 6.0 WBC 7.3 10x3/uL 4.0 - 11.0 RBC 3.83 L 10x6/uL 4.60 - 6.20 HGB 11.4 L g/dL 13.5 - 17.9 HCT 35.1 L % 41.0 - 54.0 MCV 91.6 fL 80.0 - 100.0 MCH 29.8 pg 27.0 - 33.0 MCHC 32.5 g/dL 32.0 - 37.5 RDW 12.2 % 11.5 - 14.5 PLT 193 10x3/uL 150 - 400 SODIUM 138 mmol/L 136 - 145 POTASSIUM 4.1 mmol/L 3.5 - 5.1 CHLORIDE 108 H mmol/L 98 - 107 CO2 23 mmol/L 22 - 29 ANION GAP 7 mmol/L 5 - 15 GLUCOSE 91 mg/dL 70 - 100 UREA NITROGEN 24 mg/dL 8 - 26 CREATININE 1.3 H mg/dL 0.7 - 1.2 CALCIUM 8.8 mg/dL 8.4 - 10.2 MAGNESIUM 2.1 mg/dL 1.6 - 2.6 .CREAT EGFR(CKD-EPI) 54 L Ref: >=60 Collection time: Dec 14, 2023@12:33 Test Name Result Units Range --------- ------ ----- ----- TSH 5.10 H uIU/mL 0.35 - 4.94 FREE T4 0.83 ng/dL 0.70 - 1.48 CREATININE 1.2 mg/dL 0.7 - 1.2 .CREAT EGFR(CKD-EPI) 59 L Ref: >=60 PROTEIN,TOTAL 7.1 g/dL 6.4 - 8.3 ALBUMIN 4.2 g/dL 3.5 - 5.2 CALCIUM 9.5 mg/dL 8.4 - 10.2 MAGNESIUM 2.2 mg/dL 1.6 - 2.6 BILIRUBIN, TOTAL 0.6 mg/dL 0.2 - 1.2 ALKALINE PHOSPHATASE 67 U/L 40 - 150 AST/SGOT 24 U/L 11 - 34 ALT/SGPT 12 U/L Ref: <=44 HGB 14.0 g/dL 13.5 - 17.9 B 12 642 pg/mL 213 - 816 [...] 50 L Ref: >=60 ASSESSMENT AND PLAN CAD (NSTEMI s/p PCI to LAD 01/30/24), Unintentional weight loss, stablized Hypothyroidism HTN HLD, CKD 3, Adustment disorder Plan: Continue statin, BB, SAVANNA-I, isosorbide Clopidogrel x one year (through 01/2025) Mood: offered CMHI, prefers to continue w/home strategies, discussed stress management. BP: will check home BP's and report if outside goal range Vito upcoming cardiology f/u scheduled for 02/24/24 Going to [place] through July 2024, see me at that time Patient/Surrogate indicates readiness to learn, verbalizes understanding, agreement and satisfaction with the treatment plan. REMINDERS: Medication Reconciliation: Education Evaluations *Was medication education provided for NEW medications or CHANGES to medications? (including medication name, dose, route, reason for use, and potential side effects). No new medications or medication changes during this encounter. TERATOGENIC MED & CONTRACEPTION REVIEW (Optional)... = [...] FACILITY ALLERGY/ADR -------- Lindsey CURTIS [facility] NO KNOWN ALLERGIES [facility] No Known Allergies [facility] NO KNOWN ALLERGIES Active and Recently Outpatient Medications (including Supplies): Issue Date Status Last Fill Active Outpatient Medications Refills Expiration 1) ASPIRIN 81MG EC TAB Qty: 90 for 90 days ACTIVE Issu:01-31-24 Sig: TAKE ONE TABLET BY MOUTH EVERY Refills: 0 Last:01-31-24 DAY FOR HEART DISEASE Expr:04-30-24 2) ATORVASTATIN CALCIUM 40MG TAB Qty: 90 ACTIVE Issu:01-31-24 for 90 days Sig: TAKE ONE TABLET BY Refills: 0 Last:01-31-24 MOUTH EVERY DAY FOR CHOLESTEROL Expr:04-30-24 3) CLOPIDOGREL BISULFATE 75MG TAB Qty: 90 ACTIVE Issu:01-31-24 for 90 days Sig: TAKE ONE TABLET BY Refills: 0 Last:01-31-24 MOUTH EVERY DAY FOR 1 YEAR AFTER STENT Expr:04-30-24 THROUGH 01/28/25 4) HCTZ 25/LISINOPRIL 20MG TAB Qty: 90 for ACTIVE (S) Issu:01-31-24 90 days Sig: TAKE 1 TABLET BY MOUTH Refills: 3 Last:03-18-24 EVERY MORNING FOR BLOOD PRESSURE. Expr:01-31-25 5) ISOSORBIDE MONONITRATE 30MG SA TAB Qty: ACTIVE Issu:01-31-24 90 for 90 days Sig: TAKE ONE TABLET Refills: 0 Last:01-31-24 BY MOUTH EVERY DAY FOR CHEST PAIN Expr:04-30-24 6) METOPROLOL SUCCINATE 25MG SA TAB Qty: ACTIVE Issu:01-31-24 90 for 90 days Sig: TAKE ONE TABLET Refills: 0 Last:01-31-24 BY MOUTH EVERY DAY FOR CHEST PAIN Expr:04-30-24 7) POLYETHYLENE GLYCOL 3350 ORAL PWDR Qty: ACTIVE Issu:12-14-23 510 for 30 days Sig: TAKE 17 GRAMS BY Refills: 11 Last:12-14-23 MOUTH EVERY DAY NEEDED FOR Expr:12-14-24 CONSTIPATION 8) SILVER SULFADIAZINE 1% CREAM Qty: 50 ACTIVE Issu:10-11-23 for 30 days Sig: APPLY TO AFFECTED Refills: 3 Last:10-12-23 AREA TOPICALLY TWICE A DAY NEEDED Expr:10-11-24 FOR IRRITATED SKIN Issue Date Status Last Fill Inactive Outpatient Medications Refills Expiration 1) CALCIPOTRIENE 0.005% TOP CREAM Qty: 60 Issu:01-05-24 for 30 days Sig: APPLY THIN LAYER Refills: 0 Last:01-08-24 TOPICALLY TWICE A DAY FOR ROUGH, SCALY Expr:02-04-24 SKIN PATCHES MIX WITH EQUAL AMOUNT OF FLUOROURACIL CREAM AND APPLY TO DESIGNATED AREA(S). USE FOR 4-7 DAYS DIRECTED. WAIT UNTIL FEBRUARY WHEN SPOTS ARE HEALED FROM LIQUID NITROGEN TREATMENT IN CLINIC. KEEP OUT OF REACH OF KIDS/PETS. DO NOT APPLY TO NOSE, EYES, MOUTH. 2) FLUOROURACIL 5% CREAM Qty: 40 for 30 Issu:01-05-24 days Sig: APPLY PEA SIZED AMOUNTS Refills: 0 Last:01-08-24 SMOOTHED TO A THIN LAYER TOPICALLY Expr:02-04-24 TWICE A DAY FOR ROUGH, SCALY SKIN PATCHES MIX WITH EQUAL AMOUNT OF CALCIPOTRIENE CREAM AND APPLY TO DESIGNATED AREA(S) ON FACE. USE FOR 4-7 DAYS DIRECTED. WAIT UNTIL FEBRUARY WHEN SPOTS ARE HEALED FROM LIQUID NITROGEN TREATMENT IN CLINIC. 3) HCTZ 25/LISINOPRIL 20MG TAB Qty: 90 for DISCONTINUED Issu:06-13-23 90 days Sig: TAKE 1 TABLET BY MOUTH Refills: 1 Last:12-29-23 EVERY MORNING FOR BLOOD PRESSURE. Expr:06-13-24 4) NITROGLYCERIN 0.4MG SL TAB Qty: 100 for Issu:01-11-24 30 days Sig: DISSOLVE ONE TABLET Refills: 0 Last:01-11-24 UNDER THE TONGUE EVERY 5 MINUTES FOR Expr:02-10-24 UP TO 3 DOSES IF NEEDED FOR CHEST PAIN Start Date Active Non-VA Medications Refills Expiration 1) Non-VA MULTI/MINERAL/ANTIOXIDANT TAB ACTIVE Sig: MOUTH Start Date Inactive Non-VA Medications Refills Expiration 1) Non-VA ASPIRIN 81MG EC TAB SiMG DISCONTINUED MOUTH EVERY DAY 14 Total Medications Time spent today, including: Reviewing [...] and in writing Coding the encounter. Total Time: 50 min Sariah Gomes MD General [facility] PACT JEAN PAUL Quinn /shelly/ Sariah Gomes MD Physician Signed: 02/21/2024 10:44 SARIAH GOMES [facility]
--- OUTSIDE RECORDS SUMMARY | 2024-03-10 19:40 | XMS_ITS | Encounter Summary ---
Author Name [facility] [place] Organization [facility] [place] Address [address] [place] [address] Care Team Providers Care Lifter Name Role Phone SARIAH GOMES Primary Care [...] PART A Sep 09, 2002 PART A [id number] JOAQUIN COUGHLIN S PATIENT MEDICARE (WNR) MEDICARE (M) PART B Sep 09, 2002 PART B [id number] MADYSON,JOAQUIN S PATIENT MEDICARE (WNR) MEDICARE (M) PART A Sep 09, 2002 PART A [id number] JOAQUIN COUGHLIN S PATIENT MEDICARE (WNR) MEDICARE (M) PART B Sep 09, 2002 PART B [id number] JOAQUIN COUGHLIN S PATIENT Selected Encounter This section includes the information on record at [place] for the Encounter. Date/Time Encounter Type Encounter Description Reason Provider Source Jan 30, 2024 08:16 PM HOSP IP/OBS DSCHRG MGMT >30 CARDIOLOGY ICD-10-CM I21.4 Non-ST elevation (NSTEMI) [facility] Encounter Template Text not used by [place] Assessments - Encounter Diagnoses This section includes the primary and secondary diagnoses documented for the Encounter. Date/Time Primary/Secondary Diagnosis Diagnosis Name Provider Source Feb 07, 2024 08:17 PM PRIMARY Non-ST elevation (NSTEMI) 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 Feb 07, 2024 08:17 PM SECONDARY Essential (primary) hypertension [facility] Plan of Treatment: Future Appointments (+ 6 months) and Future Tests (+/- 45 days) The Plan of Treatment section includes future care activities for the patient [facility] This section includes future appointments and future orders which are active, pending or scheduled. Future Appointments This section includes appointments that were scheduled to occur 6 months from the date of the Encounter, up to a maximum of 20 appointments. The data comes from all [facility]. Appointment Date/Time Appointment Type Appointme nt Facility Name Feb 17, 2024 01:00 PM AMBULATORY - NONE [facility] Feb 21, 2024 10:00 AM AMBULATORY - MEDICINE [facility] Feb 24, 2024 12:15 PM AMBULATORY - MEDICINE [facility] Feb 24, 2024 01:00 PM AMBULATORY - MEDICINE [facility] Mar 02, 2024 01:00 PM AMBULATORY - REHAB MEDICIN [facility] Apr 26, 2024 10:00 AM AMBULATORY - MEDICINE [facility] Active, Pending, and Scheduled Orders This section includes a listing of several types of active, pending, and scheduled orders, including clinic medications orders, diagnostic test orders, procedure orders and consult orders; where the start date of the order is 45 days before the date of the Encounter or 45 days after the date of theEncounter. The data comes from all [facility]. Test Date/Time Test Type Test Details Facility Name Jan 18, 2024 04:23 PM Consult Order COMMUNITY CARE-ECHOCARDIOGRAPHY Cons [facility] Jan 19, 2024 12:10 PM Consult Order COMMUNITY CARE-DERMATOLOGY Cons [facility] Jan 28, 2024 02:00 AM Laboratory - Chemi stry Order TROPONIN I, HS PLASMA STAT [facility] Mar 01, 2024 03:28 PM Consult Order IFC TRAVEL ING [facility] Cons [facility] Lab Results: +/- 30 [...] Comment Jan 31, 2024 10:[address] [facility] HEMOGLOBIN A1C Specimen Type: [...] Reporting Lab: [facility] [phone] Performing Lab: [facility] [phone] HEMOGLOBIN A1C 5.4 4.0-6.0 Jan 31, 2024 10:[address] [facility] LIPID PANEL,FASTING Specimen Type: PLASMA No comment entered. Ordering Provider: JULIET SMART Report Released Date/Time: Jan 31, 2024 10:13 AM Reporting Lab: [facility] [address] Performing Lab: [facility] [address] CHOLESTEROL 125 mg/dL <199 TRIGLYCERIDE 95 mg/dL <149 .HDL 37 mg/dL L >40 LDL CALCULATION 69 mg/dL <99 VLDL CALCULATION 19 mg/dL <29 NON HDL CHOLESTEROL 88 mg/dL <129 Jan 31, 2024 07:[address] [facility] CBC Specimen Type: BLOOD No comment entered. Ordering Provider: BASHIR CARVAJAL Report Released Date/Time: Jan 30, 2024 01:03 PM Reporting Lab: [facility] [address] Performing Lab: [facility] [address] WBC 7.3 4.0-11.0 RBC 3.83 L 4.60-6.20 HGB 11.4 g/dL L 13.5-17.9 HCT 35.1 L 41.0-54.0 MCV 91.6 fL 80.0-100.0 MCH 29.8 pg 27.0-33.0 MCHC 32.5 g/dL 32.0-37.5 PLT 193 150-400 MPV 10.7 fL 9.1-13.0 RDW 12.2 11.5-14.5 Jan 31, 2024 07:[address] [facility] BASIC METABOLIC PANEL+MG Specimen Type: PLASMA No comment entered. Ordering Provider: BASHIR CARVAJAL Report Released Date/Time: Jan 30, 2024 01:03 PM Reporting Lab: [facility] [address] Performing Lab: [facility] [address] CREATININE 1.3 mg/dL H 0.7-1.2 UREA NITROGEN 24 mg/dL 8-26 GLUCOSE 91 mg/dL 70-100 SODIUM 138 mmol/L 136-145 POTASSIUM 4.1 mmol/L 3.5-5.1 CHLORIDE 108 mmol/L H 98-107 CO2 23 mmol/L 22-29 CALCIUM 8.8 mg/dL 8.4-10.2 MAGNESIUM 2.1 mg/dL 1.6-2.6 ANION GAP 7 mmol/L 5-15 .CREAT EGFR(CKD-EPI) 54 L >60 Jan 30, 2024 10:[address] [facility] POC ACT Specimen Type: BLOOD No comment entered. Ordering Provider: RODO CHRISTY Report Released Date/Time: Jan 30, 2024 10:43 AM Reporting Lab: [facility] [address] Performing Lab: [facility] [address] POC ACT 241 s H 84-139 Jan 30, 2024 10:[address] [facility] POC ACT Specimen Type: BLOOD No comment entered. Ordering Provider: RODO CHRISTY Report Released Date/Time: Jan 30, 2024 10:14 AM Reporting Lab: [facility] [address] Performing Lab: [facility] [address] POC ACT 289 s H 84-139 Jan 30, 2024 09:[address] [facility] POC ACT Specimen Type: BLOOD No comment entered. Ordering Provider: RODO CHRISTY Report Released Date/Time: Jan 30, 2024 10:14 AM Reporting Lab: [facility] [address] Performing Lab: [facility] [address] POC ACT 294 s H 84-139 Jan 30, 2024 05:[address] [facility] HEPARIN APTT Specimen Type: PLASMA No comment entered. Ordering Provider: BASHIR CARVAJAL Report Released Date/Time: Jan 29, 2024 09:43 PM Reporting Lab: [facility] [address] Performing Lab: [facility] [address] HEPARIN APTT 83.2 s 48.0-92.0 Jan 30, 2024 05:[address] [facility] BASIC METABOLIC PANEL+MG Specimen Type: PLASMA No comment entered. Ordering Provider: BASHIR CARVAJAL Report Released Date/Time: Jan 29, 2024 12:19 PM Reporting Lab: [facility] [address] Performing Lab: [facility] [address] CREATININE 1.4 mg/dL H 0.7-1.2 UREA NITROGEN 27 mg/dL H 8-26 GLUCOSE 95 mg/dL 70-100 SODIUM 139 mmol/L 136-145 POTASSIUM 4.2 mmol/L 3.5-5.1 CHLORIDE 109 mmol/L H 98-107 CO2 24 mmol/L 22-29 CALCIUM 9.0 mg/dL 8.4-10.2 MAGNESIUM 2.1 mg/dL 1.6-2.6 ANION GAP 6 mmol/L 5-15 .CREAT EGFR(CKD-EPI) 49 L >60 Jan 29, 2024 09:[address] [facility] HEPARIN APTT Specimen Type: PLASMA Comment: Critical Value Reported To: Tomasa Delcid PharmD 01/29/24 @2129 . Critical value report confirmed. Ordering Provider: MERY SAMUEL Report Released Date/Time: Jan 29, 2024 03:00 PM Reporting Lab: [facility] [address] Performing Lab: [facility] [address] HEPARIN APTT 214.6 s HH 48.0-92.0 Jan 29, 2024 06:[address] [facility] BASIC METABOLIC PANEL+MG Specimen Type: PLASMA No comment entered. Ordering Provider: BASHIR CARVAJAL Report Released Date/Time: Jan 28, 2024 04:36 PM Reporting Lab: [facility] [address] Performing Lab: [facility] [address] CREATININE 1.6 mg/dL H 0.7-1.2 UREA NITROGEN 27 mg/dL H 8-26 GLUCOSE 92 mg/dL 70-100 SODIUM 140 mmol/L 136-145 POTASSIUM 4.2 mmol/L 3.5-5.1 CHLORIDE 110 mmol/L H 98-107 CO2 25 mmol/L 22-29 CALCIUM 8.8 mg/dL 8.4-10.2 MAGNESIUM 2.1 mg/dL 1.6-2.6 ANION GAP 5 mmol/L 5-15 .CREAT EGFR(CKD-EPI) 42 L >60 Jan 28, 2024 05:[address] [facility] EXTRA PURPLE TUBE Specimen Type: BLOOD No comment entered. Ordering Provider: RODO CHRISTY Report Released Date/Time: Jan 28, 2024 05:54 AM Reporting Lab: [facility] [address] Performing Lab: [facility] [address] EXTRA PURPLE TUBE RECEIVED Jan 28, 2024 05:[address] [facility] ALBUMIN Specimen Type: PLASMA No comment entered. Ordering Provider: BASHIR CARVAJAL Report Released Date/Time: Jan 27, 2024 04:49 PM Reporting Lab: [facility] [address] Performing Lab: [facility] [address] ALBUMIN 3.5 g/dL 3.5-5.2 Jan 28, 2024 05:[address] [facility] BASIC METABOLIC PANEL+MG Specimen Type: PLASMA No comment entered. Ordering Provider: BASHIR CARVAJAL Report Released Date/Time: Jan 27, 2024 05:44 PM Reporting Lab: [facility] [address] Performing Lab: [facility] [address] CREATININE 1.4 mg/dL H 0.7-1.2 UREA NITROGEN 28 mg/dL H 8-26 GLUCOSE 92 mg/dL 70-100 SODIUM 140 mmol/L 136-145 POTASSIUM 4.4 mmol/L 3.5-5.1 CHLORIDE 109 mmol/L H 98-107 CO2 23 mmol/L 22-29 CALCIUM 8.8 mg/dL 8.4-10.2 MAGNESIUM 2.1 mg/dL 1.6-2.6 ANION GAP 8 mmol/L 5-15 .CREAT EGFR(CKD-EPI) 49 L >60 Jan 28, 2024 05:[address] [facility] TROPONIN I, HS Specimen Type: PLASMA Comment: Critical value previously reported on patient. Ordering Provider: BRANDON MEJIA Report Released Date/Time: Jan 27, 2024 09:15 PM Reporting Lab: [facility] [address] Performing Lab: [facility] [address] TROPONIN I, HS 128 HH <35 Jan 28, 2024 12:[address] [facility] COVID-19 DIAGNOSTIC PANEL (CEPHEID) Specimen Type: NASOPHARYNGEAL Comment: Cepheid GeneXpert (618) Ordering Provider: LUCAS HAWTHORNE Report Released Date/Time: Jan 27, 2024 04:28 PM Reporting Lab: [facility] [address] Performing Lab: [facility] [address] COVID-19 (CEPHEID) Not Detected Not Detected Jan 28, 2024 12:[address] [facility] HEPARIN APTT Specimen Type: PLASMA Comment: Critical Value Reported To: Deena Oliveros PharmD 01/28/24 @0110 . Critical value report confirmed. Ordering Provider: NATALIE ORDOÑEZ Report Released Date/Time: Jan 27, 2024 07:18 PM Reporting Lab: [facility] [address] Performing Lab: [facility] [address] HEPARIN APTT 133.9 s HH 48.0-92.0 Jan 28, 2024 12:[address] [facility] TROPONIN I, HS Specimen Type: PLASMA Comment: Critical value previously reported on patient. Ordering Provider: BRANDON MEJIA Report Released Date/Time: Jan 27, 2024 09:15 PM Reporting Lab: [facility] [address] Performing Lab: [facility] [address] TROPONIN I, HS 158 HH <35 Jan 27, 2024 09:[address] [facility] TROPONIN I, HS Specimen Type: PLASMA Comment: Critical value previously reported on patient. Ordering Provider: BASHIR CARVAJAL Report Released Date/Time: Jan 27, 2024 08:38 PM Reporting Lab: [facility] [address] Performing Lab: [facility] [address] TROPONIN I, HS 146 HH <35 Jan 27, 2024 06:[address] [facility] TROPONIN I, HS Specimen Type: PLASMA Comment: Critical Value Reported To: Brandon Mejia MD 01/27/24 @[address] [place] [address]. Critical value report confirmed. Ordering Provider: BASHIR CARVAJAL Report Released Date/Time: Jan 27, 2024 04:54 PM Reporting Lab: [facility] [address] Performing Lab: [facility] [address] TROPONIN I, HS 136 HH <35 Jan 27, 2024 06:[address] [facility] CBC Specimen Type: BLOOD No comment entered. Ordering Provider: BASHIR CARVAJAL Report Released Date/Time: Jan 27, 2024 04:54 PM Reporting Lab: [facility] [address] Performing Lab: [facility] [address] WBC 6.0 4.0-11.0 RBC 3.91 L 4.60-6.20 HGB 12.1 g/dL L 13.5-17.9 HCT 36.5 L 41.0-54.0 MCV 93.4 fL 80.0-100.0 MCH 30.9 pg 27.0-33.0 MCHC 33.2 g/dL 32.0-37.5 PLT 177 150-400 MPV 10.7 fL 9.1-13.0 RDW 12.4 11.5-14.5 Jan 27, 2024 06:[address] [facility] BASIC METABOLIC PANEL+MG Specimen Type: PLASMA No comment entered. Ordering Provider: BASHIR CARVAJAL Report Released Date/Time: Jan 27, 2024 04:54 PM Reporting Lab: [facility] [address] Performing Lab: [facility] [address] CREATININE 1.3 mg/dL H 0.7-1.2 UREA NITROGEN [...] Jan 30, 2024 08:00 AM 148.37 23 [facility] Social History: Smoking Status (Most current) and [...] 2023 11:30 AM VA-TOBACCO FORMER USER [facility] Tobacco Use History This section includes a history of the smoking, or tobacco-related health factors, that were collected on or before the date of the Encounter. The data comes from the [place] facility where the Encounter took place. Date/Time Smoking Status/Tobacco Use Comment F acility Dec 14, 2023 11:30 AM VA-TOBACCO QUIT [address] [facility] Oct 13, 2022 01:30 PM VA-TOBACCO FORMER USER [facility] Oct 13, 2022 01:30 PM VA-TOBACCO QUIT [address] [facility] Jul 27, 2021 10:00 AM VA-TOBACCO FORMER USER [facility] Jul 27, 2021 10:00 AM VA-TOBACCO QUIT [address] [facility] Jan 02, 2020 09:00 AM VA-TOBACCO FORMER USER [facility] Jan 02, 2020 09:00 AM VA-TOBACCO QUIT [address] [facility] Jul 21, 2018 03:00 PM VA-TOBACCO FORMER USER [facility] Jul 21, 2018 03:00 PM VA-TOBACCO QUIT [address] [facility] Dec 24, 2016 08:01 AM FORMER TOBACCO USER 7Y OR GREATE R [facility] Dec 23, 2015 08:23 AM FORMER TOBACCO USE >1Y <7Y [facility] Dec 26, 2014 10:32 AM FORMER TOBACCO USER 7Y OR GREATE R [facility] August 13, 2013 08:22 AM LIFETIME NON-TOBACCO USER [facility] August 30, 2006 08:38 AM FORMER TOBACCO USER 7Y OR GREATE R [facility] Advance Directives: All historical [...] August 30, 2006 ADVANCE DIRECTIVE ARGENIS CRAMER [facility] Pathology Reports: +/- 30 days of [...] URGENCY: STATUS: COMPLETED $APHDR Reporting Lab: [facility] [CLIA# [id number]] [place] [address] - - - - - - - [...] - PATHOLOGY REPORT Accession No. [id number] - - - - - - - [...] - PATHOLOGY REPORT Accession No. [id number] - - - - - - - [...] 0.1 cm. The specimen is inked. CE. (D)[facility] MICROSCOPIC DESCRIPTION: Microscopic examination [...] Laboratory: Surgical Pathology Report Performed By: [facility] [CLIA# [id number]] [place] [address] $FTR - - - - - - [...] - - GERI COUGHLIN STANDARD FORM 515 ID:[id number] SEX:M :[id number] AGE: 88 LOC:[id number] PCP: Sariah Gomes MD /shelly/ JOSE REESE M.D. STAFF PATHOLOGIST Signed: 01/06/2024 11:[address] [facility]
--- OUTSIDE RECORDS SUMMARY | 2024-03-10 19:40 | XMS_ITS | Encounter Summary ---
Author Name [facility] [place] Address [address] [place] [address] Care Team Providers Care College Associate Name Role Phone JACKELYN GOMES Primary Care [...] PART A Sep 09, 2002 PART A [id number] JOAQUIN COUGHLIN S PATIENT MEDICARE (WNR) MEDICARE (M) PART B Sep 09, 2002 PART B [id number] JOAQUIN COUGHLIN S PATIENT MEDICARE (WNR) MEDICARE (M) PART A Sep 09, 2002 PART A [id number] NULLJOAQUIN S PATIENT MEDICARE (WNR) MEDICARE (M) PART B Sep 09, 2002 PART B [id number] JOAQUIN COUGHLIN S PATIENT [...] activities for the patient from all [place] [facility]. This section includes future appointments and future orders which are active, pending or scheduled. Future Appointments This section includes appointments that were scheduled to occur 6 months from the date of the Encounter, up to a maximum of 20 appointments. The data comes from all [facility]. Appointment Date/Time Appointment Type Appointme nt Facility Name Feb 17, 2024 01:00 PM AMBULATORY - NONE [place] [facility] Feb 21, 2024 10:00 AM AMBULATORY - MEDICINE [facility] Feb 24, 2024 12:15 PM AMBULATORY - MEDICINE [facility] Feb 24, 2024 01:00 PM AMBULATORY - MEDICINE [facility] Mar 02, 2024 01:00 PM AMBULATORY - REHAB [facility] Apr 26, 2024 10:00 AM AMBULATORY - MEDICINE [facility] Jul 31, 2024 09:20 AM AMBULATORY - SURGERY [facility] Active, Pending, and Scheduled Orders This [...] comes from all [facility]. Test Date/Time Test Type Test Details Facility Name Jan 18, 2024 04:23 PM Consult Order COMMUNITY CARE-ECHOCARDIOGRAPHY Cons [place] [facility] Adjuster's Choice [facility] Jan 19, 2024 12:10 PM Consult Order COMMUNITY CARE-DERMATOLOGY Cons [place] [facility] Adjuster's [facility] Jan 28, 2024 02:00 AM Laboratory - Chemi stry Order TROPONIN I, HS PLASMA STAT [facility] Mar 01, 2024 03:28 PM Consult Order IFC TRAVEL ING UNIVERSAL CONSULT-[place] Cons [place] Spr[facility] Unit Adjuster's Choice [facility] Lab Results: +/- 30 [...] 10:13 AM Reporting Lab: [facility] [id number] Performing Lab: [facility] [address] HEMOGLOBIN A1C 5.4 4.0-6.0 Jan 31, 2024 10:50 AM [facility] LIPID PANEL,FASTING Specimen Type: PLASMA No comment entered. Ordering Provider: JULIET SMART Report Released Date/Time: Jan 31, 2024 10:13 AM Reporting Lab: [facility] [address] Performing Lab: [facility] [address] CHOLESTEROL 125 mg/dL <199 TRIGLYCERIDE 95 mg/dL <149 .HDL 37 mg/dL L >40 LDL CALCULATION 69 mg/dL <99 VLDL CALCULATION 19 mg/dL <29 NON HDL CHOLESTEROL 88 mg/dL <129 Jan 31, 2024 07:29 AM [facility] CBC Specimen Type: BLOOD No comment entered. Ordering Provider: BASHIR CARVAJAL Report Released Date/Time: Jan 30, 2024 01:03 PM Reporting Lab: [facility] [address] Performing Lab: [facility] [address] WBC 7.3 4.0-11.0 RBC 3.83 L 4.60-6.20 [...] 01:03 PM Reporting Lab: [facility] [address] Performing Lab: [facility] [address] CREATININE 1.3 mg/dL H 0.7-1.2 UREA NITROGEN [...] 10:43 AM Reporting Lab: [facility] [address] Performing Lab: [facility] [address] POC ACT 241 s H 84-139 Jan 30, 2024 10:08 AM [facility] POC ACT Specimen Type: BLOOD No comment entered. Ordering Provider: RODO CHRISTY Report Released Date/Time: Jan 30, 2024 10:14 AM Reporting Lab: [facility] [address] Performing Lab: [facility] [address] POC ACT 289 s H 84-139 Jan 30, 2024 09:34 AM [facility] POC ACT Specimen Type: BLOOD No comment entered. Ordering Provider: RODO CHRISTY Report Released Date/Time: Jan 30, 2024 10:14 AM Reporting Lab: [facility] [address] Performing Lab: [facility] [address] POC ACT 294 s H 84-139 Jan 30, 2024 05:37 AM [facility] HEPARIN APTT Specimen Type: PLASMA No comment entered. Ordering Provider: BASHIR CARVAJAL Report Released Date/Time: Jan 29, 2024 09:43 PM Reporting Lab: [facility] [address] Performing Lab: [facility] [address] HEPARIN APTT 83.2 s 48.0-92.0 Jan 30, 2024 05:37 AM [facility] BASIC METABOLIC PANEL+MG Specimen Type: PLASMA No comment entered. Ordering Provider: BASHIR CARVAJAL Report Released Date/Time: Jan 29, 2024 12:19 PM Reporting Lab: [facility] [address] Performing Lab: [facility] [address] CREATININE 1.4 mg/dL H 0.7-1.2 UREA NITROGEN [...] Value Reported To: Tomasa Delcid PharmD 01/29/24 @[address] [place] [address]. Critical value report confirmed. Ordering Provider: MERY SAMUEL Report Released Date/Time: Jan 29, 2024 03:00 PM Reporting Lab: [facility] [address] Performing Lab: [facility] [address] HEPARIN APTT 214.6 s HH 48.0-92.0 Jan 29, 2024 06:24 AM [facility] BASIC METABOLIC PANEL+MG Specimen Type: PLASMA No comment entered. Ordering Provider: BASHIR CARVAJAL Report Released Date/Time: Jan 28, 2024 04:36 PM Reporting Lab: [facility] [address] Performing Lab: [facility] [address] CREATININE 1.6 mg/dL H 0.7-1.2 UREA NITROGEN [...] 05:54 AM Reporting Lab: [facility] [address] Performing Lab: [facility] [address] EXTRA PURPLE TUBE RECEIVED Jan 28, 2024 05:53 AM [facility] ALBUMIN Specimen Type: PLASMA No comment entered. Ordering Provider: BASHIR CARVAJAL Report Released Date/Time: Jan 27, 2024 04:49 PM Reporting Lab: [facility] [address] Performing Lab: [facility] [address] ALBUMIN 3.5 g/dL 3.5-5.2 Jan 28, 2024 05:53 AM [facility] BASIC METABOLIC PANEL+MG Specimen Type: PLASMA No comment entered. Ordering Provider: BASHIR CARVAJAL Report Released Date/Time: Jan 27, 2024 05:44 PM Reporting Lab: [facility] [address] Performing Lab: [facility] [address] CREATININE 1.4 mg/dL H 0.7-1.2 UREA NITROGEN [...] 09:15 PM Reporting Lab: [facility] [address] Performing Lab: [facility] [address] TROPONIN I, HS 128 HH <35 Jan 28, 2024 12:35 AM [facility] COVID-19 DIAGNOSTIC PANEL (CEPHEID) Specimen Type: NASOPHARYNGEAL Comment: Cepheid GeneXpert (618) Ordering Provider: LUCAS HAWTHORNE Report Released Date/Time: Jan 27, 2024 04:28 PM Reporting Lab: [facility] [address] Performing Lab: [facility] [address] COVID-19 (CEPHEID) Not Detected Not Detected Jan 28, 2024 12:35 AM [facility] HEPARIN APTT Specimen Type: PLASMA Comment: Critical Value Reported To: Deena Oliveros PharmD 01/28/24 @0110 . Critical value report confirmed. Ordering Provider: NATALIE ORDOÑEZ Report Released Date/Time: Jan 27, 2024 07:18 PM Reporting Lab: [facility] [address] Performing Lab: [facility] [address] HEPARIN APTT 133.9 s HH 48.0-92.0 Jan 28, 2024 12:35 AM [facility] TROPONIN I, HS Specimen Type: PLASMA Comment: Critical value previously reported on patient. Ordering Provider: BRANDON MEJIA Report Released Date/Time: Jan 27, 2024 09:15 PM Reporting Lab: [facility] [address] Performing Lab: [facility] [address] TROPONIN I, HS 158 HH <35 Jan 27, 2024 09:22 PM [facility] TROPONIN I, HS Specimen Type: PLASMA Comment: Critical value previously reported on patient. Ordering Provider: BASHIR CARVAJAL Report Released Date/Time: Jan 27, 2024 08:38 PM Reporting Lab: [facility] [address] Performing Lab: [facility] [address] TROPONIN I, HS 146 HH <35 Jan 27, 2024 06:52 PM [facility] TROPONIN I, HS Specimen Type: PLASMA Comment: Critical Value Reported To: Brandon Mejia MD 01/27/24 @[address] [place] [address]. Critical value report confirmed. Ordering Provider: BASHIR CARVAJAL Report Released Date/Time: Jan 27, 2024 04:54 PM Reporting Lab: [facility] [address] Performing Lab: [facility] [address] TROPONIN I, HS 136 HH <35 Jan 27, 2024 06:52 PM [facility] BASIC METABOLIC PANEL+MG Specimen Type: PLASMA No comment entered. Ordering Provider: BASHIR CARVAJAL Report Released Date/Time: Jan 27, 2024 04:54 PM Reporting Lab: [facility] [address] Performing Lab: [facility] [address] CREATININE 1.3 mg/dL H 0.7-1.2 UREA NITROGEN [...] 04:54 PM Reporting Lab: [facility] [address] Performing Lab: [facility] [address] WBC 6.0 4.0-11.0 RBC 3.91 L 4.60-6.20 [...] August 30, 2006 ADVANCE DIRECTIVE ARGENIS CRAMER [facility]
--- OUTSIDE RECORDS SUMMARY | 2024-03-10 19:40 | XMS_ITS | Encounter Summary ---
Author Name [place] Address [address] [place] [address] Care Team Providers Care Corporate Risk Analyst Name Role Phone JACKELYN GOMES Primary Care [...] PART A Sep 09, 2002 PART A [phone] JOAQUIN COUGHLIN S PATIENT MEDICARE (WNR) MEDICARE (M) PART B Sep 09, 2002 PART B [id number] NULL,JOAQUIN S PATIENT MEDICARE (WNR) MEDICARE (M) PART B Sep 09, 2002 PART B [id number] JOAQUIN COUGHLIN S PATIENT MEDICARE (WNR) MEDICARE (M) PART A Sep 09, 2002 PART A [id number] JOAQUIN COUGHLIN S PATIENT Selected Encounter This section includes the information on record at [place] for the Encounter. Date/Time Encounter Type Encounter Description Reason Provider Source Mar 07, 2024 07:15 AM CASE MANAGEMENT ADMIN PAT ACTIVTIES (MASNONCT) AMRCUS VAUGHN Encounter Template Text not used by [place] Plan of Treatment: Future Appointments (+ 6 months) and Future Tests (+/- 45 days) The Plan of Treatment section includes future care activities for the patient from all [place] [facility]. This section includes future appointments and future orders which are active, pending or scheduled. Future Appointments This section includes appointments that were scheduled to occur 6 months from the date of the Encounter, up to a maximum of 20 appointments. The data comes from all [facility]. Appointment Date/Time Appointment Type Appointme nt Facility Name Apr 26, 2024 10:00 AM AMBULATORY - MEDICINE [facility] Jul 31, 2024 09:20 AM AMBULATORY - SURGERY [facility] August 21, 2024 09:00 AM [facility] August 21, 2024 10:00 AM AMBULATORY - MEDIC[facility] Active, Pending, and Scheduled [...] Test Type Test Details Facility Name Jan 28, 2024 02:00 AM Laboratory - Chemi stry Order TROPONIN I, HS PLASMA STAT [facility] Mar 01, 2024 03:28 PM Consult Order IFC TRAVEL ING UNIVERSAL CONSULT-[facility] Medical Coordinator Pesticide Use's Choice [facility] Advance Directives: All historical and [...] 30, 2006 ADVANCE DIRECTIVE ARGENIS CRAMER [facility] Encounter Notes: All associated encounter notes This section contains the clinical notes associated to the Encounter. Date/Time Encounter Note(s) Provider Source Mar 07, 2024 07:15 AM TOURS HOSTESS NOTE: LOCAL TITLE: TRV COORDINATOR NOTE STANDARD TITLE: TOURS HOSTESS NOTE DATE OF NOTE: MAR 07, 2024@07:15 ENTRY DATE: MAR 07, 2024@07:15:36 AUTHOR: MARCUS VAUGHN EXP COSIGNER: URGENCY: STATUS: COMPLETED IFC for derm complete: SCHEDULED LCO DERM 01 PROC Consult Appt. on 04/26/24 @ 10:00 #CERTIFIED MEDICATION TECHNICIAN# PID=03/10/2024 REQ BY CON DATED 03/01/2024 PT COULD NOT DO 03/15 DUE TO STILL BEING OUT OF STATE IWT=03/15/2024 CCWT=48 DAYS /es/ MARCUS VAUGHN RN Signed: 03/07/2024 07:17 MARCUS VAUGHN DEPT OF [facility]
--- OUTSIDE RECORDS SUMMARY | 2024-03-10 19:40 | XMS_ITS | Encounter Summary ---
Author Name [facility] [place] Address [address] [place] [address] Care Team Providers Care Railroad Track Repair Supervisor Name Role Phone JACKELYN GOMES Primary Care [...] PART B Sep 09, 2002 PART B [id number] JOAQUIN COUGHLIN S PATIENT MEDICARE (WNR) MEDICARE (M) PART A Sep 09, 2002 PART A [id number] NULL,JOAQUIN S PATIENT MEDICARE (WNR) MEDICARE (M) PART A Sep 09, 2002 PART A [id number] JOAQUIN COUGHLIN S PATIENT MEDICARE (WNR) MEDICARE (M) PART B Sep 09, 2002 PART B [id number] JOAQUIN COUGHLIN S PATIENT Selected Encounter This section includes the information on record at [place] for the Encounter. Date/Time Encounter Type Encounter Description Reason Provider Source Mar 05, 2024 08:13 AM CASE MANAGEMENT ADMIN PAT ACTIVTIES (MASNONCT) MARCUS VAUGHN Encounter Template Text not used by [place] Plan of Treatment: Future Appointments (+ 6 months) and Future Tests (+/- 45 days) The Plan of Treatment section includes future care activities for the patient from all [place] [facility]. This section includes future appointments and future orders which are active, pending or scheduled. Future Appointments This section includes appointments that were scheduled to occur 6 months from the date of the Encounter, up to a maximum of 20 appointments. The data comes from all [facility]. Appointment Date/Time Appointment Type Appointme nt Facility Name Apr 26, 2024 10:00 AM AMBULATORY - MEDICINE [facility] Jul 31, 2024 09:20 AM AMBULATORY - SURGERY [facility] August 21, 2024 09:00 AM [facility] August 21, 2024 10:00 AM AMBULATORY - MEDICINE [facility] Active, Pending, and Scheduled Orders This section includes a listing of several types of active, pending, and scheduled orders, including clinic medications orders, diagnostic test orders, procedure orders and consult orders; where the start date of the order is 45 days before the date of the Encounter or 45 days after the date of theEncounter. The data comes from all [facility]. Test Date/Time Test Type Test Details Facility Name Jan 28, 2024 02:00 AM Laboratory - Chemi stry Order TROPONIN I, HS PLASMA STAT [facility] Mar 01, 2024 03:28 PM Consult Order IFC TRAVEL ING UNIVERSAL CONSULT-[facility] Research Coordinator's Choice [facility] Advance Directives: All historical and current Section Date Range: From patient's date of to the date document was created. This section includes ALL of a patient's completed or amended [place] Advance and Rescinded Directives. The entries below indicate that a directive exists for the patient, but an actual copy is not included with this document. The data comes from all [facility]. Date Advance Directives Provider Source August 30, 2006 ADVANCE DIRECTIVE ARGENIS CRAMER [facility] Encounter Notes: All associated encounter notes This section contains the clinical notes associated to the Encounter. 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 Clinically indicated date 8 weeks. 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 MICROSCOPIC DESCRIPTION: Microscopic examination performed. CI. 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 STAFF PATHOLOGIST Signed Jan 06, 2024@11:16 /shelly/ MARCUS VAUGHN RN Signed: 03/05/2024 08:14 MARCUS VAUGHN DEPT OF [facility]
--- OUTSIDE RECORDS SUMMARY | 2024-03-10 19:40 | XMS_ITS | Encounter Summary ---
Author Name [facility] [facility] [place] Address [address] [place] [address] Care Team Providers Care Spinner Frame Name Role Phone JACKELYN GOMES Primary Care [...] PART A Sep 09, 2002 PART A [id number] JOAQUIN COUGHLIN S PATIENT MEDICARE (WNR) MEDICARE (M) PART B Sep 09, 2002 PART B [id number] JOAQUIN COUGHLIN S PATIENT MEDICARE (WNR) MEDICARE (M) PART A Sep 09, 2002 PART A [id number] JOAQUIN COUGHLIN S PATIENT MEDICARE (WNR) MEDICARE (M) PART B Sep 09, 2002 PART B [id number] JOAQUIN COUGHLIN S PATIENT Selected Encounter This section includes the information on record at [place] for the Encounter. Date/Time Encounter Type Encounter Description Reason Pro vider Source Feb 10, 2024 12:37 PM Outpatient Encounter COMMUNITY CARE CONSULT IHE Encounter Template Text not used by [place] Plan of Treatment: Future Appointments (+ 6 months) and Future Tests (+/- 45 days) The Plan of Treatment section includes future care activities for the patient from all [facility] This section includes future appointments and future orders which are active, pending or scheduled. Future Appointments This section includes appointments that were scheduled to occur 6 months from the date of the Encounter, up to a maximum of 20 appointments. The data comes from all [place] [facility]. Appointment Date/Time Appointment Type Appointme nt Facility Name Feb 17, 2024 01:00 PM [facility]ORY [place] [facility] Feb 21, 2024 10:00 AM AMBULATORY - MEDICINE [facility] Feb 24, 2024 12:15 PM AMBULATORY - MEDICINE [facility] Feb 24, 2024 01:00 PM AMBULATORY - MEDICINE [facility] Mar 02, 2024 01:00 PM AMBULATORY - [facility]AB [facility] Apr 26, 2024 10:00 AM AM[facility]ULATORY [facility]ICINE [facility] Jul 31, 2024 09:20 AM AMBULATORY - SURGERY [facility] Active, Pending, [...] of theEncounter. The data comes from all [facility]. Test Date/Time Test Type Test Details Facility Name Jan 18, 2024 04:23 PM Consult Order COMMUNITY CARE-ECHOCARDIOGRAPHY [facility] Jan 19, 2024 12:10 PM Consult Order COMMUNITY CARE-DERMATOLOGY [facility] Jan 28, 2024 02:00 AM Laboratory - Chemi stry Order TROPONIN I, HS PLASMA STAT [facility] Mar 01, 2024 03:28 PM Consult Order IFC TRAVEL ING [facility] [facility] Lab Results: +/- 30 days [...] Jan 31, 2024 10:13 AM Reporting Lab: [facility] [phone] Performing Lab: [facility] [address] CHOLESTEROL 125 mg/dL <199 TRIGLYCERIDE 95 mg/dL [...] Jan 31, 2024 10:13 AM Reporting Lab: [facility] [address] Performing Lab: [facility] [address] HEMOGLOBIN A1C 5.4 4.0-6.0 Jan 31, 2024 07:29 AM [facility] CBC Specimen Type: BLOOD No comment entered. Ordering Provider: BASHIR CARVAJAL Report Released Date/Time: Jan 30, 2024 01:03 PM Reporting Lab: [facility] [address] Performing Lab: [facility] [address] WBC 7.3 4.0-11.0 RBC 3.83 L 4.60-6.20 [...] Jan 30, 2024 01:03 PM Reporting Lab: [facility] [phone] Performing Lab: [facility] [address] CREATININE 1.3 mg/dL H 0.7-1.2 UREA NITROGEN [...] Jan 30, 2024 10:43 AM Reporting Lab: [facility] [address] Performing Lab: [facility] [address] POC ACT 241 s H 84-139 Jan 30, 2024 10:08 AM [facility] POC ACT Specimen Type: BLOOD No comment entered. Ordering Provider: RODO CHRISTY Report Released Date/Time: Jan 30, 2024 10:14 AM Reporting Lab: [facility] [address] Performing Lab: [facility] [address] POC ACT 289 s H 84-139 Jan 30, 2024 09:34 AM [facility] POC ACT Specimen Type: BLOOD No comment entered. Ordering Provider: RODO CHRISTY Report Released Date/Time: Jan 30, 2024 10:14 AM Reporting Lab: [facility] [address] Performing Lab: [facility] [address] POC ACT 294 s H 84-139 Jan 30, 2024 05:37 AM [facility] HEPARIN APTT Specimen Type: PLASMA No comment entered. Ordering Provider: BASHIR CARVAJAL Report Released Date/Time: Jan 29, 2024 09:43 PM Reporting Lab: [facility] [address] Performing Lab: [facility] [address] HEPARIN APTT 83.2 s 48.0-92.0 Jan 30, 2024 05:37 AM [facility] BASIC METABOLIC PANEL+MG Specimen Type: PLASMA No comment entered. Ordering Provider: BASHIR CARVAJAL Report Released Date/Time: Jan 29, 2024 12:19 PM Reporting Lab: [facility] [address] Performing Lab: [facility] [address] CREATININE 1.4 mg/dL H 0.7-1.2 UREA NITROGEN [...] Reported To: Tomasa Delcid PharmD 01/29/24 @[address] [place] [address]. Critical value report confirmed. Ordering Provider: MERY SAMUEL Report Released Date/Time: Jan 29, 2024 03:00 PM Reporting Lab: [facility] [address] Performing Lab: [facility] [address] HEPARIN APTT 214.6 s HH 48.0-92.0 Jan 29, 2024 06:24 AM [facility] BASIC METABOLIC PANEL+MG Specimen Type: PLASMA No comment entered. Ordering Provider: BAHSIR CARVAJAL Report Released Date/Time: Jan 28, 2024 04:36 PM Reporting Lab: [facility] [address] Performing Lab: [facility] [address] CREATININE 1.6 mg/dL H 0.7-1.2 UREA NITROGEN [...] Jan 28, 2024 05:54 AM Reporting Lab: [facility] [address] Performing Lab: [facility] [address] EXTRA PURPLE TUBE RECEIVED Jan 28, 2024 05:53 AM [facility] ALBUMIN Specimen Type: PLASMA No comment entered. Ordering Provider: BASHIR CARVAJAL Report Released Date/Time: Jan 27, 2024 04:49 PM Reporting Lab: [facility] [address] Performing Lab: [facility] [address] ALBUMIN 3.5 g/dL 3.5-5.2 Jan 28, 2024 05:53 AM [facility] BASIC METABOLIC PANEL+MG Specimen Type: PLASMA No comment entered. Ordering Provider: BASHIR CARVAJAL Report Released Date/Time: Jan 27, 2024 05:44 PM Reporting Lab: [facility] [address] Performing Lab: [facility] [address] CREATININE 1.4 mg/dL H 0.7-1.2 UREA NITROGEN [...] Jan 27, 2024 09:15 PM Reporting Lab: [facility] [address] Performing Lab: [facility] [address] TROPONIN I, HS 128 HH <35 Jan 28, 2024 12:35 AM [facility] COVID-19 DIAGNOSTIC PANEL (CEPHEID) Specimen Type: NASOPHARYNGEAL Comment: Cepheid GeneXpert (618) Ordering Provider: LUCAS HAWTHORNE Report Released Date/Time: Jan 27, 2024 04:28 PM Reporting Lab: [facility] [address] Performing Lab: [facility] [phone] COVID-19 (CEPHEID) Not Detected Not Detected Jan 28, 2024 12:35 AM [facility] HEPARIN APTT Specimen Type: PLASMA Comment: Critical Value Reported To: Deena Oliveros PharmD 01/28/24 @0110 HV. Critical value report confirmed. Ordering Provider: NATALIE ORDOÑEZ Report Released Date/Time: Jan 27, 2024 07:18 PM Reporting Lab: [facility] [address] Performing Lab: [facility] [address] HEPARIN APTT 133.9 s HH 48.0-92.0 Jan 28, 2024 12:35 AM [facility] TROPONIN I, HS Specimen Type: PLASMA Comment: Critical value previously reported on patient. Ordering Provider: BRANDON MEJIA Report Released Date/Time: Jan 27, 2024 09:15 PM Reporting Lab: [facility] [address] Performing Lab: [facility] [address] TROPONIN I, HS 158 HH <35 Jan 27, 2024 09:22 PM [facility] TROPONIN I, HS Specimen Type: PLASMA Comment: Critical value previously reported on patient. Ordering Provider: BASHIR CARVAJAL Report Released Date/Time: Jan 27, 2024 08:38 PM Reporting Lab: [facility] [address] Performing Lab: [facility] [address] TROPONIN I, HS 146 HH <35 Jan 27, 2024 06:52 PM [facility] TROPONIN I, HS Specimen Type: PLASMA Comment: Critical Value Reported To: Brandon Mejia MD 01/27/24 @[address] [place] [address]. Critical value report confirmed. Ordering Provider: BASHIR CARVAJAL Report Released Date/Time: Jan 27, 2024 04:54 PM Reporting Lab: [facility] [address] Performing Lab: [facility] [address] TROPONIN I, HS 136 HH <35 Jan 27, 2024 06:52 PM [facility] BASIC METABOLIC PANEL+MG Specimen Type: PLASMA No comment entered. Ordering Provider: BASHIR CARVAJAL Report Released Date/Time: Jan 27, 2024 04:54 PM Reporting Lab: [facility] [address] Performing Lab: [facility] [address] CREATININE 1.3 mg/dL H 0.7-1.2 UREA NITROGEN 30 mg/dL H 8-26 GLUCOSE 141 mg/dL H 70-100 SODIUM 142 mmol/L 136-145 POTASSIUM 3.4 mmol/L L 3.5-5.1 CHLORIDE 106 mmol/L 98-107 CO2 27 mmol/L 22-29 CALCIUM 8.8 mg/dL 8.4-10.2 MAGNESIUM 2.2 mg/dL 1.6-2.6 ANION GAP 9 mmol/L 5-15 .CREAT EGFR(CKD-EPI) 54 L >60 Jan 27, 2024 06:52 PM [facility] CBC Specimen Type: BLOOD No comment entered. Ordering Provider: BASHIR CARVAJAL Report Released Date/Time: Jan 27, 2024 04:54 PM Reporting Lab: [facility] [address] Performing Lab: [facility] [address] WBC 6.0 4.0-11.0 RBC 3.91 L 4.60-6.20 [...] 14, 2023 11:30 AM VA-TOBACCO FORMER USER [facility] Tobacco Use History [...] 30, 2006 ADVANCE DIRECTIVE ARGENIS CRAMER S [facility] Encounter Notes: All associated encounter [...] STATUS: COMPLETED Feb GERI COUGHLIN [address] [place], [place] [address] Dear GERI COUGHLIN, Your VA provider has referred you to a provider within the community for care. Your medical care for ECHOCARDIOGRAM has been authorized with the community care provider listed below. DO NOT REPORT TO THE [facility] Provider info: Care has been approved for the following vendor: Office name, address, and phone number: [address] [address] PH: [phone] Please contact the identified provider to schedule your community appointment. If you need assistance with this appointment, please call your facility community care office [facility] Community Care at [phone] during the hours of 8:30AM - 3:00PM. Please follow up with your local [facility] community care office once this is scheduled. This step is needed to ensure your referral duration is maximized and the [place] has accurate referral information for billing purposes. Authorization Number: [id number] Referral Issue Date: Jan Expiration Date: Mar (subject to change based on first appointment) If you are unable to schedule this appointment or the appointment is no longer needed, please contact the community provider above for notification/rescheduling and then call the [facility] at [phone] during the hours of 8:30AM - 3:00PM. If you need additional care/services not mentioned above or your authorization has and additional care is needed, please contact your primary care provider for a new referral. To review all care/service(s) approved under your referral, please go to the following link: [email or web address]) Co-Payments: If you are required to pay a VA co-payment, you will be billed by the VA for each authorized visit that you attend. However, you are NOT REQUIRED to make co-payments to a community provider. Thank you for the opportunity to serve you. Sincerely, [place] [facility] ([facility]) /shelly/ ANDIE GALLRADO Advanced [employer] Production Engineer Signed: 02/10/2024 12:38 ANDIE GALLARDO [facility]
--- OUTSIDE RECORDS SUMMARY | 2024-03-10 19:40 | XMS_ITS | Encounter Summary ---
Author Name [facility] [place] [facility] [place] [facility] [facility] [place] Address [address] [place] [address] Care Team Providers Care News Intern Name Role Phone JACKELYN GOMES Primary Care [...] PART B Sep 09, 2002 PART B [id number] JOAQUIN COUGHLIN S PATIENT MEDICARE (WNR) MEDICARE (M) PART A Sep 09, 2002 PART A [id number] JOAQUIN COUGHLIN S PATIENT MEDICARE (WNR) MEDICARE (M) PART A Sep 09, 2002 PART A [id number] JOAQUIN COUGHLIN S PATIENT MEDICARE (WNR) MEDICARE (M) PART B Sep 09, 2002 PART B [id number] JOAQUIN COUGHLIN S PATIENT Selected Encounter [...] activities for the [place] [facility] [place] [facility] This section includes future appointments and future orders which are active, pending or scheduled. Future Appointments This section includes appointments that were scheduled to occur 6 months from the date of the Encounter, up to a maximum of 20 appointments. The data comes from all [place] [facility]. Appointment Date/Time Appointment Type Appointme nt Facility Name Feb 17, 2024 01:00 PM AMBULATORY - NONE [place] [facility] Feb 21, 2024 10:00 AM AMBULATORY - MEDICINE [facility] Feb 24, 2024 12:15 PM AMBULATORY - MEDICINE [facility] Feb 24, 2024 01:00 PM AMBULATORY - MEDICINE [facility] Mar 02, 2024 01:00 PM AMBULATORY - REHAB [facility] Apr 26, 2024 10:00 AM AMBULATORY - MEDICINE [facility] Jul 31, 2024 09:20 AM AMBULATORY - SURGERY [facility] Active, Pending, and Scheduled Orders This [...] 04:23 PM Consult Order COMMUNITY CARE-ECHOCARDIOGRAPHY Cons [facility] Jan 19, 2024 12:10 PM Consult Order COMMUNITY CARE-DERMATOLOGY Cons [facility] Jan 28, 2024 02:00 AM Laboratory - Chemi stry Order TROPONIN I, HS PLASMA STAT [facility] Mar 01, 2024 03:28 PM Consult Order IFC TRAVEL ING UNIVERSAL CONSULT-GRIZZLY FLATS Cons [facility] Lab Results: +/- 30 days of [...] Range Comment Jan 31, 2024 10:50 AM [facility] HEMOGLOBIN A1C Specimen Type: BLOOD Comment: [...] 10:13 AM Reporting Lab: [facility] [phone] Performing Lab: [facility] [address] HEMOGLOBIN A1C 5.4 4.0-6.0 Jan 31, 2024 10:50 AM [facility] LIPID PANEL,FASTING Specimen Type: PLASMA No comment entered. Ordering Provider: JULIET SMART Report Released Date/Time: Jan 31, 2024 10:13 AM Reporting Lab: [facility] [address] Performing Lab: [facility] [address] CHOLESTEROL 125 mg/dL <199 TRIGLYCERIDE 95 mg/dL <149 .HDL 37 mg/dL L >40 LDL CALCULATION 69 mg/dL <99 VLDL CALCULATION 19 mg/dL <29 NON HDL CHOLESTEROL 88 mg/dL <129 Jan 31, 2024 07:29 AM [facility] CBC Specimen Type: BLOOD No comment entered. Ordering Provider: BASHIR CARVAJAL Report Released Date/Time: Jan 30, 2024 01:03 PM Reporting Lab: [facility] [phone] Performing Lab: [facility] [address] WBC 7.3 4.0-11.0 RBC 3.83 L 4.60-6.20 HGB 11.4 g/dL L 13.5-17.9 HCT 35.1 L 41.0-54.0 MCV 91.6 fL 80.0-100.0 MCH 29.8 pg 27.0-33.0 MCHC 32.5 g/dL 32.0-37.5 PLT 193 150-400 MPV 10.7 fL 9.1-13.0 RDW 12.2 11.5-14.5 Jan 31, 2024 07:29 AM [facility] BASIC METABOLIC PANEL+MG Specimen Type: PLASMA No comment entered. Ordering Provider: BASHIR CARVAJAL Report Released Date/Time: Jan 30, 2024 01:03 PM Reporting Lab: [facility] [phone] Performing Lab: [facility] [address] CREATININE 1.3 mg/dL H 0.7-1.2 UREA NITROGEN 24 mg/dL 8-26 GLUCOSE 91 mg/dL 70-100 SODIUM 138 mmol/L 136-145 POTASSIUM 4.1 mmol/L 3.5-5.1 CHLORIDE 108 mmol/L H 98-107 CO2 23 mmol/L 22-29 CALCIUM 8.8 mg/dL 8.4-10.2 MAGNESIUM 2.1 mg/dL 1.6-2.6 ANION GAP 7 mmol/L 5-15 .CREAT EGFR(CKD-EPI) 54 L >60 Jan 30, 2024 10:37 AM [facility] POC ACT Specimen Type: BLOOD No comment entered. Ordering Provider: RODO CHRISTY Report Released Date/Time: Jan 30, 2024 10:43 AM Reporting Lab: [facility] [phone] Performing Lab: [facility] [address] POC ACT 241 s H 84-139 Jan 30, 2024 10:08 AM [facility] POC ACT Specimen Type: BLOOD No comment entered. Ordering Provider: RODO CHRISTY Report Released Date/Time: Jan 30, 2024 10:14 AM Reporting Lab: [facility] [address] Performing Lab: [facility] [address] POC ACT 289 s H 84-139 Jan 30, 2024 09:34 AM [facility] POC ACT Specimen Type: BLOOD No comment entered. Ordering Provider: RODO CHRISTY Report Released Date/Time: Jan 30, 2024 10:14 AM Reporting Lab: [facility] [address] Performing Lab: [facility] [address] POC ACT 294 s H 84-139 Jan 30, 2024 05:37 AM [facility] HEPARIN APTT Specimen Type: PLASMA No comment entered. Ordering Provider: BASHIR CARVAJAL Report Released Date/Time: Jan 29, 2024 09:43 PM Reporting Lab: [facility] [address] Performing Lab: [facility] [address] HEPARIN APTT 83.2 s 48.0-92.0 Jan 30, 2024 05:37 AM [facility] BASIC METABOLIC PANEL+MG Specimen Type: PLASMA No comment entered. Ordering Provider: BASHIR CARVAJAL Report Released Date/Time: Jan 29, 2024 12:19 PM Reporting Lab: [facility] [address] Performing Lab: [facility] [address] CREATININE 1.4 mg/dL H 0.7-1.2 UREA NITROGEN 27 mg/dL H 8-26 GLUCOSE 95 mg/dL 70-100 SODIUM 139 mmol/L 136-145 POTASSIUM 4.2 mmol/L 3.5-5.1 CHLORIDE 109 mmol/L H 98-107 CO2 24 mmol/L 22-29 CALCIUM 9.0 mg/dL 8.4-10.2 MAGNESIUM 2.1 mg/dL 1.6-2.6 ANION GAP 6 mmol/L 5-15 .CREAT EGFR(CKD-EPI) 49 L >60 Jan 29, 2024 09:02 PM [facility] HEPARIN APTT Specimen Type: PLASMA Comment: Critical Value Reported To: Tomasa Delcid PharmD 01/29/24 @[address] [place] [address]. Critical value report confirmed. Ordering Provider: MERY SAMUEL Report Released Date/Time: Jan 29, 2024 03:00 PM Reporting Lab: [facility] [address] Performing Lab: [facility] [address] HEPARIN APTT 214.6 s HH 48.0-92.0 Jan 29, 2024 06:24 AM [facility] BASIC METABOLIC PANEL+MG Specimen Type: PLASMA No comment entered. Ordering Provider: BASHIR CARVAJAL Report Released Date/Time: Jan 28, 2024 04:36 PM Reporting Lab: [facility] [address] Performing Lab: [facility] [address] CREATININE 1.6 mg/dL H 0.7-1.2 UREA NITROGEN 27 mg/dL H 8-26 GLUCOSE 92 mg/dL 70-100 SODIUM 140 mmol/L 136-145 POTASSIUM 4.2 mmol/L 3.5-5.1 CHLORIDE 110 mmol/L H 98-107 CO2 25 mmol/L 22-29 CALCIUM 8.8 mg/dL 8.4-10.2 MAGNESIUM 2.1 mg/dL 1.6-2.6 ANION GAP 5 mmol/L 5-15 .CREAT EGFR(CKD-EPI) 42 L >60 Jan 28, 2024 05:54 AM [facility] EXTRA PURPLE TUBE Specimen Type: BLOOD No comment entered. Ordering Provider: RODO CHRISTY Report Released Date/Time: Jan 28, 2024 05:54 AM Reporting Lab: [facility] [address] Performing Lab: [facility] [address] EXTRA PURPLE TUBE RECEIVED Jan 28, 2024 05:53 AM [facility] ALBUMIN Specimen Type: PLASMA No comment entered. Ordering Provider: BASHIR CARVAJAL Report Released Date/Time: Jan 27, 2024 04:49 PM Reporting Lab: [facility] [address] Performing Lab: [facility] [address] ALBUMIN 3.5 g/dL 3.5-5.2 Jan 28, 2024 05:53 AM [facility] BASIC METABOLIC PANEL+MG Specimen Type: PLASMA No comment entered. Ordering Provider: BASHIR CARVAJAL Report Released Date/Time: Jan 27, 2024 05:44 PM Reporting Lab: [facility] [address] Performing Lab: [facility] [address] CREATININE 1.4 mg/dL H 0.7-1.2 UREA NITROGEN 28 mg/dL H 8-26 GLUCOSE 92 mg/dL 70-100 SODIUM 140 mmol/L 136-145 POTASSIUM 4.4 mmol/L 3.5-5.1 CHLORIDE 109 mmol/L H 98-107 CO2 23 mmol/L 22-29 CALCIUM 8.8 mg/dL 8.4-10.2 MAGNESIUM 2.1 mg/dL 1.6-2.6 ANION GAP 8 mmol/L 5-15 .CREAT EGFR(CKD-EPI) 49 L >60 Jan 28, 2024 05:52 AM [facility] TROPONIN I, HS Specimen Type: PLASMA Comment: Critical value previously reported on patient. Ordering Provider: BRANDON MEJIA Report Released Date/Time: Jan 27, 2024 09:15 PM Reporting Lab: [facility] [address] Performing Lab: [facility] [address] TROPONIN I, HS 128 HH <35 Jan 28, 2024 12:35 AM [facility] COVID-19 DIAGNOSTIC PANEL (CEPHEID) Specimen Type: NASOPHARYNGEAL Comment: Cepheid GeneXpert (618) Ordering Provider: LUCAS HAWTHORNE Report Released Date/Time: Jan 27, 2024 04:28 PM Reporting Lab: [facility] [address] Performing Lab: [facility] [address] COVID-19 (CEPHEID) Not Detected Not Detected Jan 28, 2024 12:35 AM [facility] HEPARIN APTT Specimen Type: PLASMA Comment: Critical Value Reported To: Deena Oliveros PharmD 01/28/24 @0110 HV. Critical value report confirmed. Ordering Provider: NATALIE ORDOÑEZ Report Released Date/Time: Jan 27, 2024 07:18 PM Reporting Lab: [facility] [address] Performing Lab: [facility] [address] HEPARIN APTT 133.9 s HH 48.0-92.0 Jan 28, 2024 12:35 AM [facility] TROPONIN I, HS Specimen Type: PLASMA Comment: Critical value previously reported on patient. Ordering Provider: BRANDON MEJIA Report Released Date/Time: Jan 27, 2024 09:15 PM Reporting Lab: [facility] [address] Performing Lab: [facility] [address] TROPONIN I, HS 158 HH <35 Jan 27, 2024 09:22 PM [facility] TROPONIN I, HS Specimen Type: PLASMA Comment: Critical value previously reported on patient. Ordering Provider: BASHIR CARVAJAL Report Released Date/Time: Jan 27, 2024 08:38 PM Reporting Lab: [facility] [phone] Performing Lab: [facility] [address] TROPONIN I, HS 146 HH <35 Jan 27, 2024 06:52 PM [facility] TROPONIN I, HS Specimen Type: PLASMA Comment: Critical Value Reported To: Brandon Mejia MD 01/27/24 @[address] [place] [address]. Critical value report confirmed. Ordering Provider: BASHIR CARVAJAL Report Released Date/Time: Jan 27, 2024 04:54 PM Reporting Lab: [facility] [address] Performing Lab: [facility] [address] TROPONIN I, HS 136 HH <35 Jan 27, 2024 06:52 PM [facility] CBC Specimen Type: BLOOD No comment entered. Ordering Provider: BASHIR CARVAJAL Report Released Date/Time: Jan 27, 2024 04:54 PM Reporting Lab: [facility] [address] Performing Lab: [facility] [address] WBC 6.0 4.0-11.0 RBC 3.91 L 4.60-6.20 HGB 12.1 g/dL L 13.5-17.9 HCT 36.5 L 41.0-54.0 MCV 93.4 fL 80.0-100.0 MCH 30.9 pg 27.0-33.0 MCHC 33.2 g/dL 32.0-37.5 PLT 177 150-400 MPV 10.7 fL 9.1-13.0 RDW 12.4 11.5-14.5 Jan 27, 2024 06:52 PM [facility] BASIC METABOLIC PANEL+MG Specimen Type: PLASMA No comment entered. Ordering Provider: BASHIR CARVAJAL Report Released Date/Time: Jan 27, 2024 04:54 PM Reporting Lab: [facility] [address] Performing Lab: [facility] [address] CREATININE 1.3 mg/dL H 0.7-1.2 UREA NITROGEN [...] 14, 2023 11:30 AM VA-TOBACCO FORMER USER [facility] Tobacco Use History This section includes a history of the smoking, or tobacco-related health factors, that were collected on or before the date of the Encounter. The data comes from the [place] facility where the Encounter took place. Date/Time Smoking Status/Tobacco Use Comment F acility Dec 14, 2023 11:30 AM VA-TOBACCO QUIT 15 YRS OR MORE [facility] Oct 13, 2022 01:30 PM VA-TOBACCO FORMER USER [facility] Oct 13, 2022 01:30 PM VA-TOBACCO QUIT 15 YRS OR MORE [facility] Jul 27, 2021 10:00 AM VA-TOBACCO FORMER USER [facility] Jul 27, 2021 10:00 AM VA-TOBACCO QUIT 15 YRS OR MORE [facility] Jan 02, 2020 09:00 AM VA-TOBACCO FORMER USER [facility] Jan 02, 2020 09:00 AM VA-TOBACCO QUIT 15 YRS OR MORE [facility] Jul 21, 2018 03:00 PM VA-TOBACCO FORMER USER [facility] Jul 21, 2018 03:00 PM VA-TOBACCO QUIT 15 YRS OR MORE [facility] Dec 24, 2016 08:01 AM FORMER TOBACCO USER 7Y OR GREATE R [facility] Dec 23, 2015 08:23 AM FORMER TOBACCO USE >1Y <7Y [facility] Dec 26, 2014 10:32 AM FORMER TOBACCO USER 7Y OR GREATE R [facility] August 13, 2013 08:22 AM LIFETIME NON-TOBACCO USER [facility] August 30, 2006 08:38 AM FORMER TOBACCO USER 7Y OR GREATE R [facility] Advance Directives: All historical and current Section Date Range: From patient's date of to the date document was created. This section includes ALL of a patient's completed or amended [place] Advance and Rescinded Directives. The entries below indicate that a directive exists for the patient, but an actual copy is not included with this document. The data comes from all [place] facilities. Date Advance Directives Provider Source August 30, 2006 ADVANCE DIRECTIVE ARGENIS CRAMER [facility] Encounter Notes: All associated encounter notes This section contains the clinical notes associated to the Encounter. Date/Time Encounter Note(s) Provider Source Feb 09, 2024 10:15 AM NONVA NOTE: LOCAL TITLE: COMMUNITY CARE-CARE COORDINATION PLAN NOTE STANDARD TITLE: NONVA NOTE DATE OF NOTE: FEB 09, 2024@10:15 ENTRY DATE: FEB 09, 2024@10:15:41 AUTHOR: LIGIA GASCA EXP COSIGNER: URGENCY: STATUS: COMPLETED Community Care Consult: Echocardiography Consult No: [id number] [facility] Referral #: Chief Complaint: chest pain, [...] effort EEF-Extra scheduling effort: 1 additional call [facility] User Role: KELLY /shelly/ Ligia Gasca RN pasting inspector Sales Executive Insurance Signed: 02/09/2024 10:16 LIGIA GASCA [facility]
--- OUTSIDE RECORDS SUMMARY | 2024-03-10 19:41 | XMS_ITS | Encounter Summary ---
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 Date/Time Encounter Type Encounter Description Reason Provider Source Feb 24, 2024 12:15 PM ELECTROCARDIOGRAM REPORT EKG ICD-10-CM Z13.6 Encounter for screening for cardiovascular disorders DENICE HOWE E Encounter Template Text not used by [place] Assessments - Encounter Diagnoses This section includes the primary and secondary diagnoses documented for the Encounter. Date/Time Primary/Secondary Diagnosis Diagnosis Name Provider Source Feb 24, 2024 03:12 PM PRIMARY Encounter for screening for cardiovascular disorders AUGUSTINE ZAMORA [facility] Plan of Treatment: Future Appointments (+ 6 months) and Future Tests (+/- 45 days) The Plan of Treatment section includes future care activities for the patient from all [place] treatmentfacilities. This section includes future appointments and future orders which are active, pending or scheduled. Future Appointments This section includes appointments that were scheduled to occur 6 months from the date of the Encounter, up to a maximum of 20 appointments. The data comes from all [place] treatment facilities. Appointment Date/Time Appointment Type Appointme nt Facility Name Mar 02, 2024 01:00 PM AMBULATORY - REHAB MEDICIN E [facility] Apr 26, 2024 10:00 AM AMBULATORY - MEDICINE [facility] Jul 31, 2024 09:20 AM AMBULATORY - SURGERY [facility] August 21, 2024 09:00 AM AMBULATORY - NONE [facility] August 21, 2024 10:00 AM AMBULATORY - MEDICINE [facility] Active, Pending, and Scheduled [...] 04:23 PM Consult Order COMMUNITY CARE-ECHOCARDIOGRAPHY Cons Physical Therapy Teacher's Choice [facility] Jan 19, 2024 12:10 PM Consult Order COMMUNITY CARE-DERMATOLOGY Cons Physical Therapy Teacher's Choice [facility] Jan 28, 2024 02:00 AM Laboratory - Chemi stry Order TROPONIN I, HS PLASMA STAT [facility] Mar 01, 2024 03:28 PM Consult Order IFC TRAVEL ING [facility]AL [facility]SULT-[facility] [place] Cons Physical Therapy Teacher's [facility] Lab Results: +/- 30 days [...] Jan 31, 2024 10:50 AM [facility] HEMOGLOBIN A1C Specimen Type: BLOOD Comment: [...] Jan 31, 2024 10:13 AM Reporting Lab: [facility] [phone] Performing Lab: [facility] [phone] HEMOGLOBIN A1C 5.4 4.0-6.0 Jan 31, 2024 10:50 AM [facility] LIPID PANEL,FASTING Specimen Type: PLASMA No comment entered. Ordering Provider: JULIET SMART Report Released Date/Time: Jan 31, 2024 10:13 AM Reporting Lab: [facility] [phone] Performing Lab: [facility] [phone] CHOLESTEROL 125 mg/dL <199 TRIGLYCERIDE 95 mg/dL <149 .HDL 37 mg/dL L >40 LDL CALCULATION 69 mg/dL <99 VLDL CALCULATION 19 mg/dL <29 NON HDL CHOLESTEROL 88 mg/dL <129 Jan 31, 2024 07:29 AM [facility] CBC Specimen Type: BLOOD No comment entered. Ordering Provider: BASHIR CARVAJAL Report Released Date/Time: Jan 30, 2024 01:03 PM Reporting Lab: [facility] [phone] Performing Lab: [facility] [phone] WBC 7.3 4.0-11.0 RBC 3.83 L 4.60-6.20 HGB 11.4 g/dL L 13.5-17.9 HCT 35.1 L 41.0-54.0 MCV 91.6 fL 80.0-100.0 MCH 29.8 pg 27.0-33.0 MCHC 32.5 g/dL 32.0-37.5 PLT 193 150-400 MPV 10.7 fL 9.1-13.0 RDW 12.2 11.5-14.5 Jan 31, 2024 07:29 AM [facility] BASIC METABOLIC PANEL+MG Specimen Type: PLASMA No comment entered. Ordering Provider: BASHIR CARVAJAL Report Released Date/Time: Jan 30, 2024 01:03 PM Reporting Lab: [facility] [phone] Performing Lab: [facility] [phone] CREATININE 1.3 mg/dL H 0.7-1.2 UREA NITROGEN 24 mg/dL 8-26 GLUCOSE 91 mg/dL 70-100 SODIUM 138 mmol/L 136-145 POTASSIUM 4.1 mmol/L 3.5-5.1 CHLORIDE 108 mmol/L H 98-107 CO2 23 mmol/L 22-29 CALCIUM 8.8 mg/dL 8.4-10.2 MAGNESIUM 2.1 mg/dL 1.6-2.6 ANION GAP 7 mmol/L 5-15 .CREAT EGFR(CKD-EPI) 54 L >60 Jan 30, 2024 10:37 AM [facility] POC ACT Specimen Type: BLOOD No comment entered. Ordering Provider: RODO CHRISTY Report Released Date/Time: Jan 30, 2024 10:43 AM Reporting Lab: [facility] [phone] Performing Lab: [facility] [address] POC ACT 241 s H 84-139 Jan 30, 2024 10:08 AM [facility] POC ACT Specimen Type: BLOOD No comment entered. Ordering Provider: RODO CHRISTY Report Released Date/Time: Jan 30, 2024 10:14 AM Reporting Lab: [facility] [phone] Performing Lab: [facility] [phone] POC ACT 289 s H 84-139 Jan 30, 2024 09:34 AM [facility] POC ACT Specimen Type: BLOOD No comment entered. Ordering Provider: RODO CHRISTY Report Released Date/Time: Jan 30, 2024 10:14 AM Reporting Lab: [facility] [phone] Performing Lab: [facility] [phone] POC ACT 294 s H 84-139 Jan 30, 2024 05:37 AM [facility] HEPARIN APTT Specimen Type: PLASMA No comment entered. Ordering Provider: BASHIR CARVAJAL Report Released Date/Time: Jan 29, 2024 09:43 PM Reporting Lab: [facility] [phone] Performing Lab: [facility] [phone] HEPARIN APTT 83.2 s 48.0-92.0 Jan 30, 2024 05:37 AM [facility] BASIC METABOLIC PANEL+MG Specimen Type: PLASMA No comment entered. Ordering Provider: BASHIR CARVAJAL Report Released Date/Time: Jan 29, 2024 12:19 PM Reporting Lab: [facility] [phone] Performing Lab: [facility] [phone] CREATININE 1.4 mg/dL H 0.7-1.2 UREA NITROGEN 27 mg/dL H 8-26 GLUCOSE 95 mg/dL 70-100 SODIUM 139 mmol/L 136-145 POTASSIUM 4.2 mmol/L 3.5-5.1 CHLORIDE 109 mmol/L H 98-107 CO2 24 mmol/L 22-29 CALCIUM 9.0 mg/dL 8.4-10.2 MAGNESIUM 2.1 mg/dL 1.6-2.6 ANION GAP 6 mmol/L 5-15 .CREAT EGFR(CKD-EPI) 49 L >60 Jan 29, 2024 09:02 PM [facility] HEPARIN APTT Specimen Type: PLASMA Comment: Critical Value Reported To: Tomasa Delcid PharmD 01/29/24 @[address] [place] [address]. Critical value report confirmed. Ordering Provider: MERY SAMUEL Report Released Date/Time: Jan 29, 2024 03:00 PM Reporting Lab: [facility] [phone] Performing Lab: [facility] [phone] HEPARIN APTT 214.6 s 48.0-92.0 Jan 29, 2024 06:24 AM [facility] BASIC METABOLIC PANEL+MG Specimen Type: PLASMA No comment entered. Ordering Provider: BASHIR CARVAJAL Report Released Date/Time: Jan 28, 2024 04:36 PM Reporting Lab: [facility] [phone] Performing Lab: [facility] [phone] CREATININE 1.6 mg/dL H 0.7-1.2 UREA NITROGEN 27 mg/dL H 8-26 GLUCOSE 92 mg/dL 70-100 SODIUM 140 mmol/L 136-145 POTASSIUM 4.2 mmol/L 3.5-5.1 CHLORIDE 110 mmol/L H 98-107 CO2 25 mmol/L 22-29 CALCIUM 8.8 mg/dL 8.4-10.2 MAGNESIUM 2.1 mg/dL 1.6-2.6 ANION GAP 5 mmol/L 5-15 .CREAT EGFR(CKD-EPI) 42 L >60 Jan 28, 2024 05:54 AM [facility] EXTRA PURPLE TUBE Specimen Type: BLOOD No comment entered. Ordering Provider: RODO CHRISTY Report Released Date/Time: Jan 28, 2024 05:54 AM Reporting Lab: [facility] [phone] Performing Lab: [facility] [phone] EXTRA PURPLE TUBE RECEIVED Jan 28, 2024 05:53 AM [facility] ALBUMIN Specimen Type: PLASMA No comment entered. Ordering Provider: BASHIR CARVAJAL Report Released Date/Time: Jan 27, 2024 04:49 PM Reporting Lab: [facility] [phone] Performing Lab: [facility] [phone] ALBUMIN 3.5 g/dL 3.5-5.2 Jan 28, 2024 05:53 AM [facility] BASIC METABOLIC PANEL+MG Specimen Type: PLASMA No comment entered. Ordering Provider: BASHIR CARVAJAL Report Released Date/Time: Jan 27, 2024 05:44 PM Reporting Lab: [facility] [phone] Performing Lab: [facility] [phone] CREATININE 1.4 mg/dL H 0.7-1.2 UREA NITROGEN 28 mg/dL H 8-26 GLUCOSE 92 mg/dL 70-100 SODIUM 140 mmol/L 136-145 POTASSIUM 4.4 mmol/L 3.5-5.1 CHLORIDE 109 mmol/L H 98-107 CO2 23 mmol/L 22-29 CALCIUM 8.8 mg/dL 8.4-10.2 MAGNESIUM 2.1 mg/dL 1.6-2.6 ANION GAP 8 mmol/L 5-15 .CREAT EGFR(CKD-EPI) 49 L >60 Jan 28, 2024 05:52 AM [facility] TROPONIN I, HS Specimen Type: PLASMA Comment: Critical value previously reported on patient. Ordering Provider: BRANDON MEJIA Report Released Date/Time: Jan 27, 2024 09:15 PM Reporting Lab: [facility] [phone] Performing Lab: [facility] [phone] TROPONIN I, HS 128 HH <35 Jan 28, 2024 12:35 AM [facility] COVID-19 DIAGNOSTIC PANEL (CEPHEID) Specimen Type: NASOPHARYNGEAL Comment: Cepheid GeneXpert (618) Ordering Provider: LUCAS HAWTHORNE Report Released Date/Time: Jan 27, 2024 04:28 PM Reporting Lab: [facility] [phone] Performing Lab: [facility] [phone] COVID-19 (CEPHEID) Not Detected Not Detected Jan 28, 2024 12:35 AM [facility] HEPARIN APTT Specimen Type: PLASMA Comment: Critical Value Reported To: Deena Oliveros PharmD 01/28/24 @0110 . Critical value report confirmed. Ordering Provider: NATALIE ORDOÑEZ Report Released Date/Time: Jan 27, 2024 07:18 PM Reporting Lab: [facility] [phone] Performing Lab: [facility] [phone] HEPARIN APTT 133.9 s HH 48.0-92.0 Jan 28, 2024 12:35 AM [facility] TROPONIN I, HS Specimen Type: PLASMA Comment: Critical value previously reported on patient. Ordering Provider: BRANDON MEJIA Report Released Date/Time: Jan 27, 2024 09:15 PM Reporting Lab: [facility] [phone] Performing Lab: [facility] [phone] TROPONIN I, HS 158 HH <35 Jan 27, 2024 09:22 PM [facility] TROPONIN I, HS Specimen Type: PLASMA Comment: Critical value previously reported on patient. Ordering Provider: BASHIR CARVAJAL Report Released Date/Time: Jan 27, 2024 08:38 PM Reporting Lab: [facility] [phone] Performing Lab: [facility] [phone] TROPONIN I, HS 146 HH <35 Jan 27, 2024 06:52 PM [facility] TROPONIN I, HS Specimen Type: PLASMA Comment: Critical Value Reported To: Brandon Mejia MD 01/27/24 @[address] [place] [address]. Critical value report confirmed. Ordering Provider: BASHIR CARVAJAL Report Released Date/Time: Jan 27, 2024 04:54 PM Reporting Lab: [facility] [phone] Performing Lab: [facility] [phone] TROPONIN I, HS 136 HH <35 Jan 27, 2024 06:52 PM [facility] CBC Specimen Type: BLOOD No comment entered. Ordering Provider: BASHIR CARVAJAL Report Released Date/Time: Jan 27, 2024 04:54 PM Reporting Lab: [facility] [phone] Performing Lab: [facility] [phone] WBC 6.0 4.0-11.0 RBC 3.91 L 4.60-6.20 HGB 12.1 g/dL L 13.5-17.9 HCT 36.5 L 41.0-54.0 MCV 93.4 fL 80.0-100.0 MCH 30.9 pg 27.0-33.0 MCHC 33.2 g/dL 32.0-37.5 PLT 177 150-400 MPV 10.7 fL 9.1-13.0 RDW 12.4 11.5-14.5 Jan 27, 2024 06:52 PM [facility] BASIC METABOLIC PANEL+MG Specimen Type: PLASMA No comment entered. Ordering Provider: BASHIR CARVAJAL Report Released Date/Time: Jan 27, 2024 04:54 PM Reporting Lab: [facility] [phone] Performing Lab: [facility] [phone] CREATININE 1.3 mg/dL H 0.7-1.2 UREA NITROGEN [...] Height Weight Body Mass Index Source Feb 24, 2024 12:59 PM 141/80 [facility] Feb 24, 2024 12:48 PM 98.8 47 147/77 19 97 3 157.8 25 [facility] Social History: Smoking Status (Most [...] 11:30 AM VA-TOBACCO FORMER USER [facility] Tobacco Use History This section includes a history of the smoking, or tobacco-related health factors, that were collected on or before the date of the Encounter. The data comes from the [place] facility where the Encounter took place. Date/Time Smoking Status/Tobacco Use Comment F acility Dec 14, 2023 11:30 AM VA-TOBACCO QUIT 15 YRS OR MORE [facility] Oct 13, 2022 01:30 PM VA-TOBACCO FORMER USER [facility] Oct 13, 2022 01:30 PM VA-TOBACCO QUIT 15 YRS OR MORE [facility] Jul 27, 2021 10:00 AM VA-TOBACCO FORMER USER [facility] Jul 27, 2021 10:00 AM VA-TOBACCO QUIT 15 YRS OR MORE [facility] Jan 02, 2020 09:00 AM VA-TOBACCO FORMER USER [facility] Jan 02, 2020 09:00 AM VA-TOBACCO QUIT 15 YRS OR MORE [facility] Jul 21, 2018 03:00 PM VA-TOBACCO FORMER USER [facility] Jul 21, 2018 03:00 PM VA-TOBACCO QUIT 15 YRS OR MORE [facility] Dec 24, 2016 08:01 AM FORMER TOBACCO USER 7Y OR GREATE R [facility] Dec 23, 2015 08:23 AM FORMER TOBACCO USE >1Y <7Y [facility] Dec 26, 2014 10:32 AM FORMER TOBACCO USER 7Y OR GREATE R [facility] August 13, 2013 08:22 AM LIFETIME NON-TOBACCO USER [facility] August 30, 2006 08:38 AM FORMER TOBACCO USER 7Y OR GREATE R [facility] Advance Directives: All historical and current Section Date Range: From patient's date of to the date document was created. This section includes ALL of a patient's completed or amended [place] Advance and Rescinded Directives. The entries below indicate that a directive exists for the patient, but an actual copy is not included with this document. The data comes from all [place] facilities. Date Advance Directives Provider Source August 30, 2006 ADVANCE DIRECTIVE [facility]
--- OUTSIDE RECORDS SUMMARY | 2024-03-10 19:41 | XMS_ITS | Encounter Summary ---
Author Name [facility] (MD[facility] Organization [facility] Address [address] [place] [address] Care Team Providers Care Rigging Up Man Name Role Phone JACKELYN GOMES Primary Care [...] PART B Sep 09, 2002 PART B [id number] [phone] JOAQUIN BOYKIN S PATIENT MEDICARE (WNR) MEDICARE (M) PART A Sep 09, 2002 PART A [id number] JOAQUIN BOYKIN S PATIENT MEDICARE (WNR) MEDICARE (M) PART A Sep 09, 2002 PART A [id number] JOAQUIN BOYKIN S PATIENT MEDICARE (WNR) MEDICARE (M) PART B Sep 09, 2002 PART B [id number] JOAQUIN BOYKIN S PATIENT Selected Encounter This section includes the information on record at MD for the Encounter. Date/Time Encounter Type Encounter Description Reason Provider Source Feb 24, 2024 01:00 PM OFFICE O/P NEW MOD 45 MIN CARDIOLOGY ICD-10-CM I25.10 [facility] heart disease of [place] coronary artery w/o ang pctKIAN Matthews Encounter Template Text not used by MD Assessments - Encounter Diagnoses This section includes the primary and secondary diagnoses documented for the Encounter. Date/Time Primary/Secondary Diagnosis Diagnosis Name Provider Source Feb 29, 2024 11:17 AM PRIMARY [facility] heart disease of [place] coronary artery w/o VIANCA Lucas [facility] Feb 29, 2024 11:17 AM SECONDARY Hyperlipidemia, unspecified VIANCA MACIEL [facility] Feb 29, 2024 11:17 AM SECONDARY Hypertensive chronic kidney disease w stg 1-4/unsp chr kdny VIANCA MACIEL [facility] Feb 29, 2024 11:17 AM SECONDARY Other fatigue VIANCA MACIEL [facility] Plan of Treatment: Future Appointments (+ 6 months) and Future Tests (+/- 45 days) The Plan of Treatment section includes future care activities for the patient from all MD treatmentfacilities. This section includes future appointments and future orders which are active, pending or scheduled. Future Appointments This section includes appointments that were scheduled to occur 6 months from the date of the Encounter, up to a maximum of 20 appointments. The data comes from all MD treatment [facility] Appointment Date/Time Appointment Type Appointme nt Facility Name Mar 02, 2024 01:00 PM AMBULATORY - REHAB MEDICIN E [facility] Apr 26, 2024 10:00 AM AMBULATORY - MEDICINE [facility] Jul 31, 2024 09:20 AM AM[facility] SURG[facility] August 21, 2024 09:00 AM AMBULATORY - NONE [facility] August 21, 2024 10:00 AM [facility] Active, Pending, and Scheduled Orders This section includes a listing of several types of active, pending, and scheduled orders, including clinic medications orders, diagnostic test orders, procedure orders and consult orders; where the start date of the order is 45 days before the date of the Encounter or 45 days after the date of theEncounter. The data comes from all MD treatment [facility]. Test Date/Time Test Type Test Details Facility Name Jan 18, 2024 04:23 PM Consult Order COMMUNITY CARE-ECHOCARDIOGRAPHY Cons Wildlife Control Operator's Choice [facility] Jan 19, 2024 12:10 PM Consult Order COMMUNITY CARE-DERMATOLOGY Cons Wildlife Control Operator's Choice [facility] Jan 28, 2024 02:00 AM Laboratory - Chemi stry Order TROPONIN I, HS PLASMA STAT [facility] Mar 01, 2024 03:28 PM Consult Order IFC TRAVEL ING UNIVERSAL CONSULT[facility] Wildlife Control Operator's Choice STAT [facility] Lab Results: +/- 30 days of the encounter This section includes the Chemistry and Hematology Lab Results on record with MD for the patient. Radiology Reports and Pathology Reports are provided separately, in subsequent sections. Lab Results This section contains the Chemistry/Hematology Results that were resulted 30 days before or 30 daysafter the date of the Encounter. Date/Time Source Result Type Result - Unit Interpretation Reference Range Comment Jan 31, 2024 10:50 AM [facility] HEMOGLOBIN A1C Specimen Type: [...] 10:13 AM Reporting Lab: [facility] [phone] Performing Lab: [facility] [phone] HEMOGLOBIN A1C 5.4 4.0-6.0 Jan 31, 2024 10:50 AM [facility] LIPID PANEL,FASTING Specimen Type: PLASMA No comment entered. Ordering Provider: JULIET SMART Report Released Date/Time: Jan 31, 2024 10:13 AM Reporting Lab: [facility] [phone] Performing Lab: [facility] [phone] CHOLESTEROL 125 mg/dL <199 TRIGLYCERIDE 95 mg/dL <149 .HDL 37 mg/dL L >40 LDL CALCULATION 69 mg/dL <99 VLDL CALCULATION 19 mg/dL <29 NON HDL CHOLESTEROL 88 mg/dL <129 Jan 31, 2024 07:29 AM [facility] CBC Specimen Type: BLOOD No comment entered. Ordering Provider: BASHIR CARVAJAL Report Released Date/Time: Jan 30, 2024 01:03 PM Reporting Lab: [facility] [phone] Performing Lab: [facility] [phone] WBC 7.3 4.0-11.0 RBC 3.83 L 4.60-6.20 HGB 11.4 g/dL L 13.5-17.9 HCT 35.1 L 41.0-54.0 MCV 91.6 fL 80.0-100.0 MCH 29.8 pg 27.0-33.0 MCHC 32.5 g/dL 32.0-37.5 PLT 193 150-400 MPV 10.7 fL 9.1-13.0 RDW 12.2 11.5-14.5 Jan 31, 2024 07:29 AM [facility] BASIC METABOLIC PANEL+MG Specimen Type: PLASMA No comment entered. Ordering Provider: BASHIR CARVAJAL Report Released Date/Time: Jan 30, 2024 01:03 PM Reporting Lab: [facility] [phone] Performing Lab: [facility] [address] CREATININE 1.3 mg/dL H 0.7-1.2 UREA NITROGEN 24 mg/dL 8-26 GLUCOSE 91 mg/dL 70-100 SODIUM 138 mmol/L 136-145 POTASSIUM 4.1 mmol/L 3.5-5.1 CHLORIDE 108 mmol/L H 98-107 CO2 23 mmol/L 22-29 CALCIUM 8.8 mg/dL 8.4-10.2 MAGNESIUM 2.1 mg/dL 1.6-2.6 ANION GAP 7 mmol/L 5-15 .CREAT EGFR(CKD-EPI) 54 L >60 Jan 30, 2024 10:37 AM [facility] POC ACT Specimen Type: BLOOD No comment entered. Ordering Provider: RODO CHRISTY Report Released Date/Time: Jan 30, 2024 10:43 AM Reporting Lab: [facility] [phone] Performing Lab: [facility] [address] POC ACT 241 s H 84-139 Jan 30, 2024 10:08 AM [facility] POC ACT Specimen Type: BLOOD No comment entered. Ordering Provider: RODO CHRISTY Report Released Date/Time: Jan 30, 2024 10:14 AM Reporting Lab: [facility] [phone] Performing Lab: [facility] [address] POC ACT 289 s H 84-139 Jan 30, 2024 09:34 AM [facility] POC ACT Specimen Type: BLOOD No comment entered. Ordering Provider: RODO CHRISTY Report Released Date/Time: Jan 30, 2024 10:14 AM Reporting Lab: [facility] [phone] Performing Lab: [facility] [address] POC ACT 294 s H 84-139 Jan 30, 2024 05:37 AM [facility] HEPARIN APTT Specimen Type: PLASMA No comment entered. Ordering Provider: BASHIR CARVAJAL Report Released Date/Time: Jan 29, 2024 09:43 PM Reporting Lab: [facility] [phone] Performing Lab: [facility] [phone] HEPARIN APTT 83.2 s 48.0-92.0 Jan 30, 2024 05:37 AM [facility] BASIC METABOLIC PANEL+MG Specimen Type: PLASMA No comment entered. Ordering Provider: BASHIR CARVAJAL Report Released Date/Time: Jan 29, 2024 12:19 PM Reporting Lab: [facility] [phone] Performing Lab: [facility] [phone] CREATININE 1.4 mg/dL H 0.7-1.2 UREA NITROGEN 27 mg/dL H 8-26 GLUCOSE 95 mg/dL 70-100 SODIUM 139 mmol/L 136-145 POTASSIUM 4.2 mmol/L 3.5-5.1 CHLORIDE 109 mmol/L H 98-107 CO2 24 mmol/L 22-29 CALCIUM 9.0 mg/dL 8.4-10.2 MAGNESIUM 2.1 mg/dL 1.6-2.6 ANION GAP 6 mmol/L 5-15 .CREAT EGFR(CKD-EPI) 49 L >60 Jan 29, 2024 09:02 PM [facility] HEPARIN APTT Specimen Type: PLASMA Comment: Critical Value Reported To: Tomasa Delcid PharmD 01/29/24 @5297 . Critical value report confirmed. Ordering Provider: MERY SAMUEL Report Released Date/Time: Jan 29, 2024 03:00 PM Reporting Lab: [facility] [phone] Performing Lab: [facility] [phone] HEPARIN APTT 214.6 s HH 48.0-92.0 Jan 29, 2024 06:24 AM [facility] BASIC METABOLIC PANEL+MG Specimen Type: PLASMA No comment entered. Ordering Provider: BASHIR CARVAJAL Report Released Date/Time: Jan 28, 2024 04:36 PM Reporting Lab: [facility] [phone] Performing Lab: [facility] [phone] CREATININE 1.6 mg/dL H 0.7-1.2 UREA NITROGEN 27 mg/dL H 8-26 GLUCOSE 92 mg/dL 70-100 SODIUM 140 mmol/L 136-145 POTASSIUM 4.2 mmol/L 3.5-5.1 CHLORIDE 110 mmol/L H 98-107 CO2 25 mmol/L 22-29 CALCIUM 8.8 mg/dL 8.4-10.2 MAGNESIUM 2.1 mg/dL 1.6-2.6 ANION GAP 5 mmol/L 5-15 .CREAT EGFR(CKD-EPI) 42 L >60 Jan 28, 2024 05:54 AM [facility] EXTRA PURPLE TUBE Specimen Type: BLOOD No comment entered. Ordering Provider: RODO CHRISTY Report Released Date/Time: Jan 28, 2024 05:54 AM Reporting Lab: [facility] [phone] Performing Lab: [facility] [phone] EXTRA PURPLE TUBE RECEIVED Jan 28, 2024 05:53 AM [facility] ALBUMIN Specimen Type: PLASMA No comment entered. Ordering Provider: BASHIR CARVAJAL Report Released Date/Time: Jan 27, 2024 04:49 PM Reporting Lab: [facility] [phone] Performing Lab: [facility] [address] ALBUMIN 3.5 g/dL 3.5-5.2 Jan 28, 2024 05:53 AM [facility] BASIC METABOLIC PANEL+MG Specimen Type: PLASMA No comment entered. Ordering Provider: BASHIR CARVAJAL Report Released Date/Time: Jan 27, 2024 05:44 PM Reporting Lab: [facility] [phone] Performing Lab: [facility] [phone] CREATININE 1.4 mg/dL H 0.7-1.2 UREA NITROGEN 28 mg/dL H 8-26 GLUCOSE 92 mg/dL 70-100 SODIUM 140 mmol/L 136-145 POTASSIUM 4.4 mmol/L 3.5-5.1 CHLORIDE 109 mmol/L H 98-107 CO2 23 mmol/L 22-29 CALCIUM 8.8 mg/dL 8.4-10.2 MAGNESIUM 2.1 mg/dL 1.6-2.6 ANION GAP 8 mmol/L 5-15 .CREAT EGFR(CKD-EPI) 49 L >60 Jan 28, 2024 05:52 AM [facility] TROPONIN I, HS Specimen Type: PLASMA Comment: Critical value previously reported on patient. Ordering Provider: BRANDON MEJIA Report Released Date/Time: Jan 27, 2024 09:15 PM Reporting Lab: [facility] [phone] Performing Lab: [facility] [phone] TROPONIN I, HS 128 HH <35 Jan 28, 2024 12:35 AM [facility] COVID-19 DIAGNOSTIC PANEL (CEPHEID) Specimen Type: NASOPHARYNGEAL Comment: Cepheid GeneXpert (618) Ordering Provider: LUCAS HAWTHORNE Report Released Date/Time: Jan 27, 2024 04:28 PM Reporting Lab: [facility] [phone] Performing Lab: [facility] [phone] COVID-19 (CEPHEID) Not Detected Not Detected Jan 28, 2024 12:35 AM [facility] HEPARIN APTT Specimen Type: PLASMA Comment: Critical Value Reported To: Deena Oliveros PharmD 01/28/24 @0110 . Critical value report confirmed. Ordering Provider: NATALIE ORDOÑEZ Report Released Date/Time: Jan 27, 2024 07:18 PM Reporting Lab: [facility] [phone] Performing Lab: [facility] [phone] HEPARIN APTT 133.9 s HH 48.0-92.0 Jan 28, 2024 12:35 AM [facility] TROPONIN I, HS Specimen Type: PLASMA Comment: Critical value previously reported on patient. Ordering Provider: BRANDON MEJIA Report Released Date/Time: Jan 27, 2024 09:15 PM Reporting Lab: [facility] [phone] Performing Lab: [facility] [phone] TROPONIN I, HS 158 HH <35 Jan 27, 2024 09:22 PM [facility] TROPONIN I, HS Specimen Type: PLASMA Comment: Critical value previously reported on patient. Ordering Provider: BASHIR CAVRAJAL Report Released Date/Time: Jan 27, 2024 08:38 PM Reporting Lab: [facility] [phone] Performing Lab: [facility] [phone] TROPONIN I, HS 146 HH <35 Jan 27, 2024 06:52 PM [facility] TROPONIN I, HS Specimen Type: PLASMA Comment: Critical Value Reported To: Brandon Mejia MD 01/27/24 @[address] [place] [address]. Critical value report confirmed. Ordering Provider: BASHIR CARVAJAL Report Released Date/Time: Jan 27, 2024 04:54 PM Reporting Lab: [facility] [phone] Performing Lab: [facility] [address] TROPONIN I, HS 136 HH <35 Jan 27, 2024 06:52 PM [facility] BASIC METABOLIC PANEL+MG Specimen Type: PLASMA No comment entered. Ordering Provider: BASHIR CARVAJAL Report Released Date/Time: Jan 27, 2024 04:54 PM Reporting Lab: [facility] [phone] Performing Lab: [facility] [address] CREATININE 1.3 mg/dL H 0.7-1.2 UREA NITROGEN 30 mg/dL H 8-26 GLUCOSE 141 mg/dL H 70-100 SODIUM 142 mmol/L 136-145 POTASSIUM 3.4 mmol/L L 3.5-5.1 CHLORIDE 106 mmol/L 98-107 CO2 27 mmol/L 22-29 CALCIUM 8.8 mg/dL 8.4-10.2 MAGNESIUM 2.2 mg/dL 1.6-2.6 ANION GAP 9 mmol/L 5-15 .CREAT EGFR(CKD-EPI) 54 L >60 Jan 27, 2024 06:52 PM [facility] CBC Specimen Type: BLOOD No comment entered. Ordering Provider: BASHIR CARVAJAL Report Released Date/Time: Jan 27, 2024 04:54 PM Reporting Lab: [facility] [phone] Performing Lab: [place] [address] WBC 6.0 4.0-11.0 RBC 3.91 L 4.60-6.20 [...] Source Feb 24, 2024 12:59 PM 141/80 [facility] Feb 24, 2024 12:48 PM 98.8 47 147/77 19 97 3 157.8 25 [facility] Social History: Smoking Status (Most current) and Tobacco Use (All prior to encounter date) This section includes the most current, and the historical, smoking and tobacco- related health factors from the MD facility where the Encounter took place. Current Smoking Status This section includes the most current smoking, or tobacco-related health factor, from the MD facility where the Encounter took place. Date/Time Current Smoking Status Comment Mimi itangie Dec 14, 2023 11:30 AM VA-TOBACCO FORMER USER [facility] Tobacco Use History This section includes a history of the smoking, or tobacco-related health factors, that were collected on or before the date of the Encounter. The data comes from the MD facility where the Encounter took place. Date/Time Smoking Status/Tobacco Use Comment F acility Dec 14, 2023 11:30 AM VA-TOBACCO QUIT 15 YRS OR MORE [facility] Oct 13, 2022 01:30 PM VA-TOBACCO FORMER USER [facility] Oct 13, 2022 01:30 PM VA-TOBACCO QUIT 15 YRS OR MORE [facility] Jul 27, 2021 10:00 AM VA-TOBACCO FORMER USER [facility] Jul 27, 2021 10:00 AM VA-TOBACCO QUIT 15 YRS OR MORE [facility] Jan 02, 2020 09:00 AM VA-TOBACCO FORMER USER [facility] Jan 02, 2020 09:00 AM VA-TOBACCO QUIT 15 YRS OR MORE [facility] Jul 21, 2018 03:00 PM VA-TOBACCO FORMER USER [facility] Jul 21, 2018 03:00 PM VA-TOBACCO QUIT 15 YRS OR MORE [facility] Dec 24, 2016 08:01 AM FORMER TOBACCO USER 7Y OR GREATE R [facility] Dec 23, 2015 08:23 AM FORMER TOBACCO USE >1Y <7Y [facility] Dec 26, 2014 10:32 AM FORMER TOBACCO USER 7Y OR GREATE R [facility] August 13, 2013 08:22 AM LIFETIME NON-TOBACCO USER [facility] August 30, 2006 08:38 AM FORMER TOBACCO USER 7Y OR GREATE R [facility] Advance Directives: All historical and current Section Date Range: From patient's date of to the date document was created. This section includes ALL of a patient's completed or amended MD Advance and Rescinded Directives. The entries below indicate that a directive exists for the patient, but an actual copy is not included with this document. The data comes from all MD facilities. Date Advance Directives Provider Source August 30, 2006 ADVANCE DIRECTIVE ARGENIS CRAMER [facility] Encounter Notes: All associated encounter notes This section contains the clinical notes associated to the Encounter. Date/Time Encounter Note(s) Provider Source Feb 24, 2024 12:55 PM INTERNAL MEDICINE OUTPATIENT NOTE: LOCAL TITLE: MEDICINE CLINIC NURSING NOTE STANDARD TITLE: INTERNAL MEDICINE OUTPATIENT NOTE DATE OF NOTE: FEB 24, 2024@12:55 ENTRY DATE: FEB 24, 2024@12:55:51 AUTHOR: MAL SAWANT EXP COSIGNER: URGENCY: STATUS: COMPLETED TYPE OF VISIT: Appointment Check In Type of appointment: In-person appointment REASON FOR VISIT: scheduled visit ALLERGIES: Patient has answered NKA VITAL SIGNS: Blood Pressure: 147/77 no symptoms(02/24/2024 12:48) 141/80 slight lightheadedness. Warm had off to provider. Pulse: 47 (02/24/2024 12:48) Respiration: 19 (02/24/2024 12:48) Temperature: 98.8 F [37.1 C] (02/24/2024 12:48) Weight: 157.8 lb [71.58 kg] (02/24/2024 12:48) Height: 67 in [170.2 cm] (01/11/2024 13:25) BMI: 24.8 O2 Sat: 97% (02/24/2024 12:48) Pain: 3 (02/24/2024 12:48) PAIN SCREEN: Patient is not having significant pain that they wish to discuss with their provider today. /shelly/ MAL SAWANT LPN ASSISTANT BOILER OPERATOR Signed: 02/24/2024 12:59 MAL SAWANT [facility] Feb 24, 2024 10:23 AM CARDIOLOGY CONSULT : LOCAL TITLE: CARDIOLOGY CONSULT STANDARD TITLE: CARDIOLOGY CONSULT DATE OF NOTE: FEB 24, 2024@10:23 ENTRY DATE: FEB 24, 2024@10:23:10 AUTHOR: KIAN MACIEL COSIGNER: URGENCY: STATUS: COMPLETED Current PC Provider: JACKELYN GOMES Current PC Team: YANN REAVES *WH* From Service: 3KSD Requesting Provider: JULIET SMART Reason for Consult: interventional cardiology follow up in 1 month History of Presenting Illness (HPI): Geri Boykin is an 88 year-old gentleman with a history of hypertension, hyperlipidemia, stage 3 CKD, hypothyroidism, stage 3 CKD, BPH, dysphagia, and coronary artery disease s/p NSTEMI. On 01/11/2024, he presented to the medicine clinic and reported a 10 minute episode of left-sided chest pressure at rest with slight shortness of breath. The episode occurred during high stress, as his brother was on life support after falling and head injury. He denied exertional anginal symptoms. Cardiology was e-consulted, echo and stress test were recommended. Regadenoson MPI study was performed 01/26/2024 via i-nexus in [place], study showed a medium sized area of moderate nontransmural infarction in the apical anterior, inferior, lateral, and septal holder in the apex with mild kelly-infarct ischemia. Mild regional hypokinesis of the apical anterior, inferior, septal, and lateral holder in the apex were noted, post stress LVEF was 70%. On 01/27/2024, he presented to the [facility] ED with chest pain and was found to have troponin elevation to 0.18. ECG was without acute ischemic changes. He was transferred to the MD and reported worsening chest pain at rest and with exertion. ECG showed sinus bradycardia with 1st degree AV block, heart rate 47 bpm. Biphasic T waves V2-V6. hs troponin was elevated 136->158. Echo 01/27/2024 demonstrated normal LV size and function, EF 55-60%, moderate aortic sclerosis without stenosis. Coronary angiography was performed 01/30/2024 and revealed severe single vessel coronary artery disease with 90% mid LAD stenosis with long segment of multiple stenoses, distal LAD 50%. Successful OCT guided PCI of mid LAD was performed with cutting balloon, intravascular lithotripsy, and placement of 3.0 x 38 mm and 3.5 x 24 mm overlapping drug-eluting stents, postdilated with 4.0 and 3.5 mm NC balloons. Dual antiplatelet therapy was initiated with aspirin 81 mg daily to continue indefinitely, clopidogrel 75 mg daily for one year post PCI. Atorvastatin 40mg daily, metoprolol succinate 25mg daily, and Imdur 30mg daily were initiated, home HCTZ 25/lisinopril 20mg was continued. Due to NSTEMI and PCI, Interventional Cardiology consultation was recommended, for which he presents today. He reports ports today that following initial visit, he experienced 3 episodes of chest pain which had resolved with 10 deep breaths. The last episode he had he described as chest pain with radiation across to his chest and no other symptoms, his previous episodes were left sided. He took to 21 breaths without relief of his chest discomfort, which prompted him to seek ED evaluation. Since his admission, he reports he sleeps a lot and his energy level has significantly decreased. 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 He has chronic ankle edema, initially notes a woozy sensation upon standing but improves with ambulation. He denies palpitations, PND, orthopnea. He is leaving for [facility] [place] a few days and plans to winter there until July. Home blood pressure 136/70 with heart rate 40-50. Review of Systems (ROS) as per HPI and otherwise negative with the following exceptions: Occasional dry cough. Seldom snores. Heartburn with spicy foods. Bruises and bleeds easily. Allergies: Patient has answered NKA Pertinent Past Medical History - Computerized Problem list is source for: Active problems - Computerized Problem List is the source for the followin. Hydrocele Nos 2. Cataract, Senile, Unsp 3. Hypertension 4. Hypothyroidism 5. Hyperlipidemia 6. Hypermetropia/Hyperopia 7. Astigmatism, Unspec 8. Presbyopia 9. Benign prostatic hyperplasia 10. Chronic kidney disease stage 3 11. Actinic keratosis 12. Dysphagia 13. Allergic rhinitis 14. Basal cell carcinoma of skin 15. Pain of left shoulder joint 16. Basal cell carcinoma of neck - 11/19/2022 17. CAD - Coronary artery disease - NSTEMI, 01/30/2024 had PCI to mid LAD 18. Adjustment disorder with mixed emotional features Relevant Active Medications: Active and Recently Outpatient Medications (including Supplies): [...] TWICE A DAY NEEDED FOR IRRITATED SKIN Inactive Outpatient Medications Status 1) CALCIPOTRIENE 0.005% TOP CREAM APPLY THIN LAYER TOPICALLY TWICE A DAY FOR ROUGH, SCALY SKIN PATCHES MIX WITH EQUAL AMOUNT OF FLUOROURACIL CREAM AND APPLY TO DESIGNATED AREA(S). USE FOR 4-7 DAYS DIRECTED. WAIT UNTIL FEBRUARY WHEN SPOTS ARE HEALED FROM LIQUID NITROGEN TREATMENT IN CLINIC. KEEP OUT OF REACH OF KIDS/PETS. DO NOT APPLY TO NOSE, EYES, MOUTH. 2) FLUOROURACIL 5% CREAM APPLY PEA SIZED AMOUNTS SMOOTHED TO A THIN LAYER TOPICALLY TWICE A DAY FOR ROUGH, SCALY SKIN PATCHES MIX WITH EQUAL AMOUNT OF CALCIPOTRIENE CREAM AND APPLY TO DESIGNATED AREA(S) ON FACE. USE FOR 4-7 DAYS DIRECTED. WAIT UNTIL FEBRUARY WHEN SPOTS ARE HEALED FROM LIQUID NITROGEN TREATMENT IN CLINIC. 3) HCTZ 25/LISINOPRIL 20MG TAB TAKE 1 TABLET BY MOUTH DISCONTINUED EVERY MORNING FOR BLOOD PRESSURE. 4) NITROGLYCERIN 0.4MG SL TAB DISSOLVE ONE TABLET UNDER THE TONGUE EVERY 5 MINUTES FOR UP TO 3 DOSES IF NEEDED FOR CHEST PAIN Active Non-VA Medications Status 1) Non-VA MULTI/MINERAL/ANTIOXIDANT TAB MOUTH ACTIVE Inactive Non-VA Medications Status 1) Non-VA ASPIRIN 81MG EC TAB 81MG MOUTH EVERY DAY DISCONTINUED 14 Total Medications Risk Factors: Gender, age, hypertension, hyperlipidemia, remote tobacco use Family History: Mother age 53 of presumed hypertension. Father age 89 of aspiration pneumonia. Siblings without cardiac issues. Social History: Marital status: to his second for 50 years. Children: 2, youngest daughter has breast cancer. Occupation: Retired Tobacco use: Quit smoking 50 years ago ETOH use: Occasional social use Illicit drug use: Denies VITAL SIGNS: Blood Pressure: 147/77 no symptoms(02/24/2024 12:48) 141/80 Pulse: 47 (02/24/2024 12:48) Respiration: 19 (02/24/2024 12:48) Temperature: 98.8 F [37.1 C] (02/24/2024 12:48) Weight: 157.8 lb [71.58 kg] (02/24/2024 12:48) Height: 67 in [170.2 cm] (01/11/2024 13:25) BMI: 24.8 O2 Sat: 97% (02/24/2024 12:48) Pain: 3 (02/24/2024 12:48) Physical Exam: General: Pleasant, no acute distress. HEENT: Facial features symmetrical. Sclera nonicteric. Cardiac: RRR. S1, S2. No significant murmur/rub. Lungs: Clear to auscultation. Respirations nonlabored. Abdomen: Soft, nontender. Bowel sounds active. Extremities: Trace bilateral ankle edema, right > left. Neuro: Nonfocal. Psychiatric: Mood and affect are appropriate. Most Recent Lab Results: LAB RESULTS TODAY - NONE FOUND BMP/Electrolytes: CREATININE 1.3 H (01/31/24) UREA NITROGEN 24 (01/31/24) SODIUM 138 (01/31/24) CHLORIDE 108 H (01/31/24) POTASSIUM 4.1 (01/31/24) CO2 23 (01/31/24) GLUCOSE 91 (01/31/24) CREATININE 1.3 H PLASMA (01/31/24 05:30) 1.4 H PLASMA (01/30/24 05:30) 1.6 H PLASMA (01/29/24 05:30) CALCIUM 8.8 (01/31/24) MAGNESIUM 2.1 (01/31/24) Collection DT Spec WBC HGB HCT PLT MCV 01/31/2024 05:30 BLOOD 7.3 11.4 L 35.1 L 193 91.6 01/27/2024 18:52 BLOOD 6.0 12.1 L 36.5 L 177 93.4 12/14/2023 12:33 BLOOD 5.5 14.0 43.0 184 93.7 Lipid Profile: CHOLESTEROL 125 (01/31/24) HDL 37 L (01/31/24) LDL CALCULATION 69 (01/31/24) TRIGLYCERIDE 95 (01/31/24) LFTs: ALK PHOSPHATASE 67 (12/14/23) SGPT 12 (12/14/23) SGOT 24 (12/14/23) TSH 5.10 H (12/14/23) HEMOGLOBIN A1C 5.4 (01/31/24) INR - NONE FOUND TROPONIN - NONE FOUND DIAGNOSTICS ECG today: Personally reviewed. Sinus bradycardia rate 46. 1st degree AV block. Poor R wave progression V1-V3 consistent with anteroseptal infarct. Echocardiogram 01/28/2024: Reason For Study: Heart failure Interpretation Summary The left ventricular systolic function is normal. The visually estimated ejection fraction is 55-60%. There is moderate aortic sclerosis without stenosis. Regadenoson Myocardial Perfusion Study 01/26/2024 [facility]: Impression: 1. Myocardial perfusion was abnormal. There was a medium sized area of moderate nontransmural infarction in the apical anterior, inferior, lateral, and septal holder in the apex with mild kelly-infarct ischemia. 2. Overall left ventricular systolic function was abnormal with mild regional hypokinesis of the apical anterior, inferior, septal, and lateral holder in the apex. The post-rest LVEF was calculated to be 70%. 3. Left ventricular cavity size was normal EDV 110 mL. 4. See separate report for EKG interpretation. 5. There were no prior studies available for comparison. ------ CORONARY ANGIOGRAPHY 01/30/2024: ------ Procedure Status: Urgent inpatient procedure Attending: LUCAS HAWTHORNE PROCEDURE INDICATIONS Primary Indication: NSTEMI PROCEDURES PERFORMED Diagnostic Procedures: Coronary Angiography Optical Coherence Tomography (OCT) Other Procedures: Ultrasound guidance for vascular access Moderate sedation ACCESS Primary Arterial: Ultrasound guided Right Radial access (6F), Hemostasis with radial band CATHETERS Right coronary artery: Terumo Clifford, 6 fr Left coronary artery: Terumo Clifford, 6 fr [place] Vessels Summary: 1 vessel CAD Dominance: Left dominant Stenoses Details Segment Stenosis Length Characteristics and Comments Left Main Luminal irregularities short Proximal LAD Luminal irregularities Mid LAD 90% Serial multiple serial stenosis over a long segment after a high diagonal take off Distal LAD 50% tubular stenosis followed by luminal irregularities in the wrap around [...] please see interventional note for full details. INTERVENTIONS PCI Lesion #1: Mid LAD Guide [...] in diameter 3. PCI Stent - SHAQ [place] Synergy, 3mm x 38mm peak inflation: 12 tha 4. PCI Stent - SHAQ [place] Synergy, 3.5mm x 24mm peak inflation: 12 [...] risk factor modification. 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 Synergy XD Coronary Drug-Eluting Stent 3 [id number] 5: [place] Scientific Synergy XD Coronary Drug-Eluting Stent 3 [id number] 6: [place] [employer] Synergy XD Coronary Drug-Eluting Stent 3 [id number] 7: Medtronic NC Euphora RX 3.5mm x 20mm* [id number] 8: [employer] [employer] NC Emerge MR US 3mm x 15mm [id number] 9: Ink[employer]ors Medical C2 Plus IVL Catheter 5F 3mm x 12mm x 138 [id number] 10: Medtronic NC Euphora RX 3.25mm x 12mm [id number] 11: Medtronic NC Euphora RX 4mm x 8mm* [id number] 12: [employer] [employer] NC Emerge MR US 3.5mm x 12mm [id number] Assessment/Plan: Geri Boykin is an 88 year-old gentleman with a history of hypertension, hyperlipidemia, stage 3 CKD, hypothyroidism, stage 3 CKD, BPH, dysphagia, chest pain at rest with a medium sized area of moderate nontransmural infarction in the apical anterior, inferior, lateral, and septal holder in the apex with mild kelly-infarct ischemia on regadenoson MPI study 01/26/2024 via i-nexus, and coronary artery disease s/p NSTEMI 01/27/2024. Echo 01/27/2024 demonstrated normal LV size and function, EF 55-60%, moderate aortic sclerosis without stenosis. Coronary angiography was performed 01/30/2024 and revealed severe single vessel coronary artery disease with 90% mid LAD stenosis with long segment of multiple stenoses, distal LAD 50%. Successful OCT guided PCI of mid LAD was performed with cutting balloon, intravascular lithotripsy, and placement of 3.0 x 38 mm and 3.5 x 24 mm overlapping drug-eluting stents, postdilated with 4.0 and 3.5 mm NC balloons. Since his [place], he has not experienced further episodes of chest pain. He has noted reduction in his energy level, which may be in part due to beta-gulshan with bradycardia, heart rate currently in the 40s. He also experiences some brief orthostatic lightheadedness. Will reduce metoprolol succinate to 12.5 mg daily to see if this will help with his fatigue and increase his heart rate slightly. We discussed cardiac rehab, he is willing to participate via community care and will report update when he has arrived in [place] so order may be placed. He will be close to [place] and the [facility]. His [place] address: [address] [place] [id number] His mobile phone number is listed under home number, mobile number listed in his chart is his 's phone number. Plan: 1. CAD s/p NSTEMI 01/27/2024, SHAQ x 2 to mid LAD 01/30/2024: *Dual antiplatelet therapy: -ASA 81 mg daily to continue indefinitely, -Clopidogrel 75 mg daily uninterrupted for one year post PCI, through 01/29/2025. -Counseled on importance of dual antiplatelet therapy to prevent stent thrombosis. *High intensity statin therapy with atorvastatin 40 mg daily. *Continue metoprolol succinate at reduced dose of 12.5 mg daily, Imdur 30 mg daily. *Cardiac Rehab as above. Secondary prevention measures: *Recommend 150 minutes of aerobic activity such as walking or comparable exercise weekly per AHA guidelines. *Weight loss/management. *Recommend cardiac diet low in saturated fat, prefer Mediterranean diet for cardiovascular benefit. 2. Hyperlipidemia: Untreated lipids 01/31/2024: TC 125, HDL 37, LDL 69, TG 95. Atorvastatin 40 mg daily initiated. *Recommend LDL reduction to goal of <70, ideal 55. *Repeat lipids with next in person follow up, will be ordered at phone visit. 3. Hypertension: Current regimen: metoprolol succinate 25mg daily, Imdur 30mg daily, HCTZ 25/lisinopril 20mg. *Goal blood pressure < 130/80 per 2017 ACC/AHA guidelines. *Reducing metoprolol as above. 4. Follow up: Interventional Cardiology phone visit in 3 months. Today's test results, significance, and plan were discussed in lay-terms. Thank you for allowing Interventional Cardiology to participate in the care of your patient. Please do not hesitate to contact me with further questions or concerns. The above note may have been created with voice recognition software, unintentional word substitution may occur. Total time spent in review of medical records, patient care, counseling, and documentation was 120 minutes. /shelly/ KIAN MACIEL NP NURSE PRACTITIONER Signed: 02/29/2024 11:18 KIAN MACIEL [facility]
--- OUTSIDE RECORDS SUMMARY | 2024-03-10 19:41 | XMS_ITS | Encounter Summary ---
Author Name [facility] [facility] [place] Address [address] [place] [id number] Care Team Providers Care Manager Category Name Role Phone JACKELYN GOMES Primary Care [...] PART A Sep 09, 2002 PART A [id number] JOAQUIN COUGHLIN S PATIENT MEDICARE (WNR) MEDICARE (M) PART B Sep 09, 2002 PART B [id number] MADYSON,JOAQUIN S PATIENT MEDICARE (WNR) MEDICARE (M) PART B Sep 09, 2002 PART B [id number] JOAQUIN COUGHLIN S PATIENT MEDICARE (WNR) MEDICARE (M) PART A Sep 09, 2002 PART A [id number] JOAQUIN COUGHLIN S PATIENT Selected Encounter This section includes the information on record at [place] for the Encounter. Date/Time Encounter Type Encounter Description Reason Provider Source Mar 02, 2024 01:00 PM PT EVAL LOW COMPLEX 20 MIN CARDIO-PULM REHAB ICD-10-CM I25.10 [facility] heart disease of [place] coronary artery w/o ang pctrs MARISELA GALLEGOS [place] Encounter Template Text not used by [place] Assessments - Encounter Diagnoses This section includes the primary and secondary diagnoses documented for the Encounter. Date/Time Primary/Secondary Diagnosis Diagnosis Name Provider Source Mar 02, 2024 03:01 PM PRIMARY Aths[place] heart disease of [place]daag[place] coronary [facility]ELA GALLEGOS [facility] Mar 02, 2024 03:01 PM SECONDARY Non-ST elevation (NSTEMI) myocardial infarction BILLMARISELA [facility] Plan of Treatment: Future Appointments (+ 6 months) and Future Tests (+/- 45 days) The Plan of Treatment section includes future care activities for the patient from all [place] [facility]. This section includes future appointments and future orders which are active, pending or scheduled. Future Appointments This section includes appointments that were scheduled to occur 6 months from the date of the Encounter, up to a maximum of 20 appointments. The data comes from all [place] treatment [facility]. Appointment Date/Time Appointment Type Appointme nt Facility Name Apr 26, 2024 10:00 AM AMBULATORY - MEDICINE [facility] Jul 31, 2024 09:20 AM AMBULATORY - SURGERY [facility] August 21, 2024 09:00 AM AMBULATORY - NONE [facility] August 21, 2024 10:00 AM AMBULATORY - MEDICINE [facility] Active, Pending, and Scheduled Orders This section includes a listing of several types of active, pending, and scheduled orders, including clinic medications orders, diagnostic test orders, procedure orders and consult orders; where the start date of the order is 45 days before the date of the Encounter or 45 days after the date of theEncounter. The data comes from all [facility]. Test Date/Time Test Type Test Details Facility Name Jan 18, 2024 04:23 PM Consult Order COMMUNITY CARE-ECHOCARDIOGRAPHY [facility] Jan 19, 2024 12:10 PM Consult Order COMMUNITY CARE-DERMATOLOGY [facility] Jan 28, 2024 02:00 AM Laboratory - Chemi stry Order TROPONIN I, HS PLASMA STAT [facility] Mar 01, 2024 03:28 PM Consult Order IFC TRAVEL ING UNIVERSAL CONSULT-[place] Cons [facility] Social History: Smoking Status (Most current) and [...] this document. The data comes from all [facility]. Date Advance Directives Provider Source August 30, 2006 [facility]ANCE ARGENIS PEREZ [facility] Encounter Notes: All associated encounter notes This section contains the clinical notes associated to the Encounter. Date/Time Encounter Note(s) Provider Source Mar 02, 2024 01:00 PM CARDIOPULMONARY REHABILITATION CONSULT: LOCAL TITLE: CARDIAC REHAB CONSULT STANDARD TITLE: CARDIOPULMONARY REHABILITATION CONSULT DATE OF NOTE: MAR 02, 2024@13:00 ENTRY DATE: MAR 02, 2024@08:05:38 AUTHOR: MARISELA GALLEGOS COSIGNER: URGENCY: STATUS: COMPLETED CARDIAC REHAB INTAKE CONSULTATION Date of Initial Contact: Feb Treatment: PT Evaluation x 60 min Referring Diagnosis: NSTEMI 01/27/2024, SHAQ x 2 to mid LAD 01/30/2024 Therapy Diagnosis: Impaired aerobic capacity Program Risk Classification: Risk to be established at follow up visit Stratification Criteria - Low: NYHA Class I or II, CCS Angina <2, DASI >6 METS, No evidence of CHF, No s/s of post event/procedure myocardial ischemia, Resting EF>50%, Absence of clinical depression, >70% self-efficacy - Moderate: Angina or other significant symptoms at high levels of exertion and/or DASI 4-5 METs, EF >40-49% - High: NYHA Class III or IV, CCS Angina > 2, DASI <4 METS, Previous episode of cardiac arrest, presence of complex ventricular dysrhythmias during exercise testing or center based exercise session, presence of abnormal hemodynamics with exercise PRECAUTIONS: non per cardiac dx OTHER CONSIDERATIONS: #moderate aortic sclerosis without stenosis PERTINENT PMH: Active problems - Computerized Problem List is the source for the followin. Hydrocele Nos 2. Cataract, Senile, Unsp 3. Hypertension (SNOMED CT 02632651) 4. Hypothyroidism (SNOMED CT 30054044) 5. Hyperlipidemia 6. Hypermetropia/Hyperopia 7. Astigmatism, Unspec [...] 18. Adjustment disorder with mixed emotional features ECHOCARDIOGRAM: 01/28/2024: Interpretation Summary The left ventricular systolic function is normal. The visually estimated ejection fraction is 55-60%. There is moderate aortic sclerosis without stenosis. EK02/24/24 Sinus bradycardia rate 46. 1st degree AV block. Poor R wave progression V1-V3 consistent with anteroseptal infarct. PERTINENT MEDICATIONS - med list reviewed as part of chart review; see med tab LIPID PANEL: CHOLESTEROL 125 (01/31/24) TRIGLYCERIDE 95 (01/31/24) HDL 37 L (01/31/24) LDL CALCULATION 69 (01/31/24) HEMOGLOBIN A1C 5.4 (01/31/24) SUBJECTIVE: Levon completed today's appointment via in-clinic. Levon is an 88 yo referred for cardiac rehab s/p NSTEMI 01/27/2024, SHAQ x 2 to mid LAD 01/30/2024. Since his [place], he has not experienced further episodes of chest pain. States that he has not been as active doing his normal chores d/t the cold weather. Shares that he is usually in [place] by this time and plans to go there as soon as he can. He reports that initially he experienced low energy levels and fatigue but noted improvement when beta gulshan was adjusted. Occasionally feels lightheaded when changes positions rapidly but conscious about pausing to let symptom pass. No concerns about participating in intake today. Family Hx of Heart disease: Mother age 53 of presumed hypertension. Father age 89 of aspiration pneumonia. Siblings without cardiac issues. Pain: denies Falls in past 6 months: denies, ambulates independently to clinic today. Interest in [facility]/home based cardiac rehab: na Has personal device capable of video: PSYCHOSOCIAL ADLs/IADLs: indep Hobbies: shoot clays, bowling, yard and housework, a lot of walking. 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 Leads an active lifestyle caring for 5 acres Equipment available: inversion table NUTRITION Current diet: no significant changes noted. States that he tends to not eat as well in the summer time as both he and his are outside most of the day and don't prep meals as much Met with global marketing coordinator in past 6 months: Interest in consult? no OTHER MEDICAL MANAGEMENT Vet checks BP at home: occasionally Vet manages medications IND at home: - uses pill box for organization; IND in set-up Extent of adherence: reports compliance. (forgot meds today) Vet checks weight at home: occasionally OBJECTIVE: MUSCULOSKELETAL AROM: UE - JAYLAN WFL shoulder flex/ABD, elbow flex/ext, wrist/hand/finger ROM LE - JAYLAN WFL hip/knee/ankle ROM CARDIOPULMONARY: Vitals: Cuff size: Standard BP: 177/80 HR: 53 SpO2: 97 - Patient does not own a home BP cuff; PROS order placed. *reports slow HR his entire life; attributes higher BP today to not taking meds this morning and consuming extra cup of coffee LEARNING PREFERENCES: none stated - Video/visual demonstration - Repetitive practice - Verbal review - Written handouts/reminders - Tracking via log/kimberli PATIENT EDUCATION: - Discussed benefits, risks, and alternatives to cardiac rehab including potential for adverse events related to exercise (especially in context of cardiac diagnosis). [place] wishes to proceed with program. - Program expectations including frequency of visits, compliance with HEP, openness to behavior/lifestyle changes associated with management of chronic disease. Discussed interest in completing CR while in [place]. - Barriers to participation : travel to [place] Vet verbalized understanding and denies further questions. ASSESSMENT: Levon is a 88 yo referred to cardiac rehab following NSTEMI 01/27/2024, SHAQ x 2 to mid LAD 01/30/2024. PMH that may affect his progress in therapy includes: hypertension, hyperlipidemia, stage 3 CKD, hypothyroidism, stage 3 CKD, BPH, dysphagia, and coronary artery disease. Personal factors and/or other impairments that may impact POC include social support, age, gender, activity level, beliefs and stage of change. Reports that he initially struggled with fatigue and low energy following his procedure but it has since improved since medication was changed and has returned to doing normal actives without any issues/concerns. [place] does not feel CR would be of benefit at this time and given he plans to travel to [place] in upcoming days declines enrollment at [facility]. History: >3 personal factors and/or comorbidities Exam of body systems: (elements include body structures/functions, activity limitations and/or participation restrictions) 1-2 elements Clinical presentation: Stable Evaluation complexity: Low CAD Risk Factors: - Non modifiable (levon has at least one): personal or biological hx of CAD, age, or sex - Modifiable X Hypertension X Dyslipidemia Learning Barriers - no significant barriers identified Stage of Change (Exercise): Prep Stage of Change (Tobacco): Main Stage of Change (Nutrition): Main. PLAN: [place] declines participation in CR program at this time as he plans to travel to [place] over the winter months. [place] given number and informed he has up to one year to enroll following NSTEMI PATIENT EDUCATION ON TREATMENT PLAN: Reviewed and discussed with patient the education as written above. verbalizes understanding and denies further questions. /shelly/ Marisela Gallegos DPT, CCRP PHYSICAL THERAPIST Signed: 03/02/2024 15:01 MARISELA GALLEGOS [facility]
--- OUTSIDE RECORDS SUMMARY | 2024-03-10 19:41 | XMS_ITS | Encounter Summary ---
Author Name [facility] Address [address] [place] [address] Care Team Providers Care Medical Technologist Microbiology Name Role Phone JACKELYN GOMES Primary Care [...] PART A Sep 09, 2002 PART A [id number] JOAQUIN COUGHLIN S PATIENT MEDICARE (WNR) MEDICARE (M) PART B Sep 09, 2002 PART B [id number] JOAQUIN COUGHLIN S PATIENT MEDICARE (WNR) MEDICARE (M) PART A Sep 09, 2002 PART A [id number] JOAQUIN COUGHLIN S PATIENT MEDICARE (WNR) MEDICARE (M) PART B Sep 09, 2002 PART B [id number] JOAQUIN COUGHLIN PATIENT Selected Encounter This section includes the information on record at [place] for the Encounter. Date/Time Encounter Type Encounter Description Reason Pro vider Source Mar 10, 2024 06:07 PM Outpatient Encounter TELEPHONE TRIAGE IHE Encounter Template Text not used by [place] Plan of Treatment: Future Appointments (+ 6 months) and Future Tests (+/- 45 days) The Plan of Treatment section includes future care activities for the patient from [facility] This section includes future appointments and future orders which are active, pending or scheduled. Future Appointments This section includes appointments that were scheduled to occur 6 months from the date of the Encounter, up to a maximum of 20 appointments. The data comes from all [place] [facility]. Appointment Date/Time Appointment Type Appointme nt Facility Name Apr 26, 2024 10:00 AM AMBULATORY - MEDICINE [facility] Jul 31, 2024 09:20 AM AMBULATORY - SURGERY [facility] August 21, 2024 09:00 AM AMBULATORY - NONE [facility] August 21, 2024 10:00 AM AMBULATORY - MEDICINE [facility] Active, Pending, and Scheduled Orders This section includes a listing of several types of active, pending, and scheduled orders, including clinic medications orders, diagnostic test orders, procedure orders and consult orders; where the start date of the order is 45 days before the date of the Encounter or 45 days after the date of theEncounter. The data comes from all [facility]. Test Date/Time Test Type Test Details Facility Name Jan 28, 2024 02:00 AM Laboratory - Chemi stry Order TROPONIN I, HS PLASMA STAT [facility] Mar 01, 2024 03:28 PM Consult Order IFC TRAVEL ING UNIVERSAL CONSULT[facility] Activities Counselor's Choice [facility] Social History: Smoking Status (Most current) and Tobacco Use (All prior to encounter date) This section includes the most current, and the historical, smoking and tobacco- related health factors from the [place] facility where the Encounter took place. Current Smoking Status This section includes the most current smoking, or tobacco-related health factor, from the [place] facility where the Encounter took place. Date/Time Current Smoking Status Comment Facil ity Dec 14, 2023 11:30 AM VA-TOBACCO FORMER USER [facility] Tobacco Use History This section includes a history of the smoking, or tobacco-related health factors, that were collected on or before the date of the Encounter. The data comes from the [place] facility where the Encounter took place. Date/Time Smoking Status/Tobacco Use Comment F acility Dec 14, 2023 11:30 AM VA-TOBACCO QUIT 15 YRS OR MORE [facility] Oct 13, 2022 01:30 PM VA-TOBACCO FORMER USER [facility] Oct 13, 2022 01:30 PM VA-TOBACCO QUIT 15 YRS OR MORE [facility] Jul 27, 2021 10:00 AM VA-TOBACCO FORMER USER [facility] Jul 27, 2021 10:00 AM VA-TOBACCO QUIT 15 YRS OR MORE [facility] Jan 02, 2020 09:00 AM VA-TOBACCO FORMER USER [facility] Jan 02, 2020 09:00 AM VA-TOBACCO QUIT 15 YRS OR MORE [facility] Jul 21, 2018 03:00 PM VA-TOBACCO FORMER USER [facility] Jul 21, 2018 03:00 PM VA-TOBACCO QUIT 15 YRS OR MORE [facility] Dec 24, 2016 08:01 AM FORMER TOBACCO USER 7Y OR GREATE R [facility] Dec 23, 2015 08:23 AM FORMER TOBACCO USE >1Y <7Y [facility] Dec 26, 2014 10:32 AM FORMER TOBACCO USER 7Y OR GREATE R [facility] August 13, 2013 08:22 AM LIFETIME NON-TOBACCO USER [facility] August 30, 2006 08:38 AM FORMER TOBACCO USER 7Y OR GREATE R [facility] Advance Directives: All historical and current Section Date Range: From patient's date of to the date document was created. This section includes ALL of a patient's completed or amended [place] Advance and Rescinded Directives. The entries below indicate that a directive exists for the patient, but an actual copy is not included with this document. The data comes from all [place] facilities. Date Advance Directives Provider Source August 30, 2006 ADVANCE DIRECTIVE [facility] Encounter Notes: All associated encounter notes This section contains the clinical notes associated to the Encounter. Date/Time Encounter Note(s) Provider Source Mar 10, 2024 05:07 PM RN PROGRESS NOTE: LOCAL TITLE: CCC: CLINICAL TRIAGE STANDARD TITLE: RN PROGRESS NOTE DATE OF NOTE: MAR 10, 2024@17:07:20 ENTRY DATE: MAR 10, 2024@17:07:20 AUTHOR: MATT LOMBARDI COSIGNER: URGENCY: STATUS: COMPLETED Patient Demographics Patient Name: GERI COUGHLIN Patient Primary Address[address] [address] [place] [id number] Patient Primary Phone: [phone] Patient : 1935 Patient Age: 88 Call Back Number: [phone] Caller/Recipient Relation to Patient: Self Caller Name: GERI COUGHLIN Emergency Contact: MIAH COUGHLIN Triage Summary Pain Score: 7 (Moderate to Severe Pain) Chief Complaint: Constipation System WHEN: Now Nurse's Recommendation / WHEN: Now System WHERE: Emergency department Nurse's Recommendation / WHERE: ED Other Patient Disposition Patient/Caregiver agrees to plan of care: Yes Nursing Plan and Disposition Referred patient to higher level of care Instructed to go to Emergency Room (ER) Nurse Summary Nurse Summary: [place] says he had two cardiac stents inserted a month ago. Now I haven't had a BM X3-4 days; c/o pain in the center of his lower abd. Advised of triage recommendation. [place] miles from the [place] but they always send me to [facility] when I need to go to the hospital. Advised to take his ID and a current medication list with him. Also advised to take a copy of any paperwork from the ER so it can be scanned into his [facility] record for continuity of care. Advised he will need to sign an HEIDI for any information that needs to be obtained later. [place] also advised to take a environmental health technician cord for his cell phone and to label the environmental health technician cord so in case he gets from the cord, whoever finds the cord will know how to reach him to return the cord to him. advised to call the [facility] phone number to report going to a civilian hospital. Edwin advised the number is available . This note was created by a V10 Telephone Triage real estate closing coordinator. Replies or messages to/requests for additional signatures are not monitored. Please do not reply back or request signature to the author of this note/message. Clinical Contact Center Codes Clinic/Location: [facility] PHONE CCC RN Decision Support System Output: Triage Complete Triage Date: 03/10/2024, 05:56 PM Triage Note: Decision Support Tool Used: TXCC Phone Triage Sat, 10 Mar 2024 22:48:08 +0000 [place] Demographics 88 y/o Male Results CC: Constipation Software suggested: Now Software suggested follow-up location: Emergency department Values and Measures SBP: 127 mmHg DBP: 71 mmHg Pulse: 60 bpm Duration of CC: 4 Days Mean Arterial Pressure: 89.7 Pulse Pressure: 56 Modified Shock Index: 0.67 Positive Responses HPI: abdominal pain, severe PMH: hypertension Negative Responses Denies: HPI: abdominal pain, left lower quadrant Denies: HPI: abdominal pain, localized to upper abdomen Denies: HPI: abdominal pain, right lower quadrant Denies: HPI: abdominal pain, right upper quadrant Denies: HPI: chest pain Denies: HPI: flank or back pain Denies: HPI: lightheadedness, orthostatic Denies: HPI: syncope, with abdominal pain Denies: HPI: vomiting Denies: HPI: weakness, unable to stand Denies: HPI: weakness, with diaphoresis Denies: PMH: abdominal aortic aneurysm Denies: PMH: kidney stone Education Log CONSTIPATION: -push fluids if you're not on a fluid restriction -avoid alcohol -increase fruits/vegetables -dried fruits -prunes/prune juice -increase activity -eat more fiber -increase bran Allow yourself adequate time to use the bathroom: do not gracia. Try not to strain during bowel movements. Allow yourself sufficient time in the bathroom. Drink a warm beverage: this may have a mild laxative effect. Take a warm bath once a day. Avoid foods that cause constipation: Cheese/dairy products White flour/bread-has no fiber and are heavy on starch White rice because the husk, bran, and germ have been removed; that's where all the fiber and nutrients are oBrown rice can help relieve constipation because the husk, bran, and germ have not been removed Unripe bananas d/t having a lot of starch, hard to digest Red meat-high in fat, taking longer for the digestive tract to process it; has tough protein fibers that can be difficult for the stomach to digest; is rich in iron which can be constipating Alcohol-is dehydrating and can slow digestion/irritate the bowel, worsening constipation symptoms Chocolate-large amount of fat slowing the digestion process; slows peristalsis Fast foods-low in fiber and high in fat Processed foods/frozen dinners-slow down the digestive system Chips-high in fat, slowing digestion, low in fiber 15 Foods That Cause Constipation (Caffeine, Red Meat, Alcohol) ([employer]) IMPORTANT: This note was created by [facility] Clinical Contact Center staff. Please do not alert the staff member by adding them as a signer for future communications. Alerts are not monitored by this user. /shelly/ MATT LOMBARDI RN RN, MSN Signed: 03/10/2024 17:07 Receipt Acknowledged By: * AWAITING SIGNATURE * JACKELYN GOMES * AWAITING SIGNATURE * JAKE BENJAMIN SHERYL L [facility]
[2024-03-10 19:43] LABS: Basophils Absolute Auto 0.04 K/uL (0.00-0.30); Basophils Percent Auto 0.4 % (0.0-3.0); Eosinophils Absolute Auto 0.11 K/uL (0.00-0.50); Eosinophils Percent Auto 1.1 % (0.0-7.0); Hematocrit 34.4 % (37.0-53.0); Hemoglobin* 11.3 gm/dL (13.5-17.5); Lymphocytes Percent Auto 10.9 % (20-44); Mean Corpuscular HGB Conc 33 gm/dL (32-36); Mean Corpuscular Hemoglobin 30 pg (26-34); Mean Corpuscular Volume 92 fL (80-100); Monocytes Percent Auto 9.5 % (0.0-11.0); Neutrophils Percent Auto 78.1 % (42.0-72.0); Platelet Count* 169 K/uL (140-440); RDW Coefficient of Variation % 12.2 % (11.5-15.5); Red Blood Count 3.73 m/uL (4.30-5.90)
[2024-03-10 19:44] LABS: Slide Review Reflex No
[2024-03-10 20:14] LABS: Appearance Urine Clear (Clear); Bilirubin Urine Negative (Negative); Blood Urine Trace-intact (Negative); Color Urine Yellow (Yellow); Glucose Urine Negative (Negative); Ketones Urine Negative (Negative); Leukocyte Esterase Urine Negative (Negative); Nitrite Urine Negative (Negative); Protein Urine Negative (Negative); Urobilinogen Urine 0.2 (0.2-1.0)
[2024-03-10 20:22] LABS: WBC Urine 0-2 (0-5)
== END 2024-03-10 20:40 | disposition home or self-care (01) ==
PROVIDERS: Emergency Provider Family Medicine; PCP Internal Medicine
DX: R10.9 Unspecified abdominal pain (principal); K59.00 Constipation, unspecified
CPT/HCPCS: 36415; 74018; 81001; 85025; 99284

== ENCOUNTER 2024-03-13 11:40 | Emergency (ER) | payer MEDICARE, OTHER, SELFPAY ==
[2024-03-13 11:44] VITALS: BP 162/82; PULSE 66; RESP 16; TEMP 36.6; O2SAT 94; BMI 24.1
--- NOTE | 2024-03-13 11:46 | ED.GENADULT ---
HPI - General Adult General Chief complaint: Abdominal Pain Stated complaint: Lower abdominal pain Time Seen by Provider: 03/13/24 11:45 History of Present Illness HPI narrative: Pt reports ongoing issues with constipation, was seen a few days ago for this as well. Has been using MiraLAX, 4 enemas. No productive BM from this. Has not had much appetite, continues to have worsening lower abd pain. 88-year-old man returning to the emergency department with continued abdominal pain. Was seen a few days ago and suspected a constipation related abdominal pain. Laboratory workup at that time was unremarkable. Was recommended for [id number] treatment for constipation. He has tried increasing dosing of miralax and a few enemas but only producing liquid. Only small melissa of stool. Pain escalated again this morning around 2:00 a.m. in the left lower abdomen. Has calmed again. Yesterday also intermittently cramps across the entire low abdomen. is not having nausea or experiencing vomiting. Poor appetite though. No fever. Related Data Home Medications ?Medication ?Instructions ?Recorded ?Confirmed aspirin .ROUTE 03/10/24 atorvastatin 40 mg tablet 40 mg PO DAILY 03/10/24 03/10/24 clopidogrel 75 mg tablet 75 mg PO DAILY 03/10/24 03/10/24 isosorbide mononitrate 20 mg tablet 30 mg PO BID 03/10/24 03/10/24 lisinopril 20 1 tab PO DAILY 03/10/24 03/10/24 mg-hydrochlorothiazide 25 mg tablet metoprolol succinate 25 mg 12.5 mg PO DAILY 03/10/24 03/10/24 tablet,extended release 24 hr Allergies Allergy/AdvReac Type Severity Reaction Status Date / Time No Known Drug Allergies Allergy Verified 01/26/24 09:49 Review of Systems Status of ROS: Reports: 6 or more systems reviewed and unremarkable except as noted in History and [facility] Social History Smoking Status: Former smoker Do you use any of these nicotine containing products: None How often do you have a drink containing alcohol: monthly or less AUDIT-C Alcohol total score: 1 Non-prescribed substance use: denies use service: Yes Exam Narrative: Exam Narrative: Very pleasant. Little uncomfortable in transitions of. Moving a little gingerly. Skin is warm and dry. Well-perfused. Breathing easily. Lungs are clear. Heart in regular rate and rhythm. Abdomen is soft, without peritoneal signs. Is appreciably full; acknowledges that abdomen looks a little bigger than usual. No masses appreciated. Little tender in the left lower abdomen. Const: Vital Signs, click to edit/add: Vital Signs - 24 hr 03/13/24 11:44 Temperature 97.8 F Pulse Rate [Pulse Oximeter] 66 Respiratory Rate 16 Blood Pressure [Ri ght Upper Arm] 162/82 H Pulse Oximetry 94 Oxygen Delivery Me thod Room Air Documenting provider has reviewed patient's vital signs: yes Course Vital Signs Vital signs: Initial Vital Signs Temperature 97.8 F 03/13/24 11:44 Temperature Source Oral 03/13/24 11:44 Pulse Rate 66 03/13/24 11:44 Respiratory Rate 16 03/13/24 11:44 Blood Pressure 162/82 H 03/13/24 11:44 Blood Pressure Mean 108 H 03/13/24 11:44 Blood Pressure Position Sitting 03/13/24 11:44 Pulse Oximetry 94 03/13/24 11:44 Oxygen Delivery Method Room Air 03/13/24 11:44 Vital Signs Temperature 97.8 F 03/13/24 11:44 Pulse Rate 66 03/13/24 11:44 Respiratory Rate 16 03/13/24 11:44 Blood Pressure 162/82 H 03/13/24 11:44 Pulse Oximetry 94 03/13/24 11:44 Oxygen Delivery Method Room Air 03/13/24 11:44 Temperature 97.8 F 03/13/24 11:44 Pulse Rate 66 03/13/24 11:44 Respiratory Rate 16 03/13/24 11:44 Blood Pressure 162/82 H 03/13/24 11:44 Pulse Oximetry 94 03/13/24 11:44 Oxygen Delivery Method Room Air 03/13/24 11:44 Medications Administered Medications: Discontinued Medications Generic Name Dose Route Start Last Admin Trade Name Freq PRN Reason Stop Dose Admin Docusate Sodium/Benzocaine 5 ml 03/13/24 13:05 03/13/24 13:34 Docusate Sodium/Benzocaine 5 Ml Enema AZ 03/13/24 13:06 5 ml ONCE ONE Administration Magnesium Citrate 300 ml 03/13/24 12:48 03/13/24 12:52 Magnesium Citrate 300 Ml Solution PO 03/13/24 12:49 300 ml ONCE ONE Administration Miscellaneous Medication 376 ml 03/13/24 13:15 03/13/24 14:27 Doc/Min Oil/Mag Cit/Sod Phos 376 Ml Enema AZ 03/13/24 13:16 376 ml ONCE ONE Administration Ondansetron HCl 4 mg 03/13/24 13:01 03/13/24 13:07 Ondansetron Odt 4 Mg Tab PO 03/13/24 13:02 4 mg ONCE ONE Administration Medical Decision Making MDM Narrative Medical decision making narrative: The colicky nature of pain and described at least 6 days without significant stool I suspect this is primarily constipation. Location of intermittent pain though could represent diverticulitis. Does not have symptoms otherwise consistent with bowel obstruction. There was question of possible kidney stone. I do appreciate that there was small amount/microscopic blood in last urinalysis. Symptoms I think less consistent with ureteral colic than intestinal colic and constipation. No calcifications suspicious for ureteral stone was visualized on prior imaging. Repeat imaging and try to assist with having a bowel movement. Abdominal x-ray flat and upright views with images independently reviewed by me shows increased density of stool in the ascending colon in particular. Do not see much in the rectal vault. No concerning air-fluid levels. Radiology over-read as below TECHNIQUE: Abdomen four views. COMPARISON: Abdominal radiographs 03/10/2024. FINDINGS: Bowel gas pattern is nonobstructive. No evidence of free intraperitoneal gas. Fecal loading of the proximal colon has increased in the interval. Soft tissues elsewhere as imaged are unremarkable. Degenerative changes of the spine and pelvis, as before. IMPRESSION: Fecal loading of the proximal colon has increased. We did discuss treatment options here. He is able to place on enemas but I would not convinced that an enema is going to help. Given a bottle of magnesium citrate to drink here along with Zofran and then off an Enemeez followed by a pink lady. Nursing noted that not seem to encounter stool in placement of enema. No further escalation of pain here in the emergency department. Did produce liquid output more consistent with be enemas I think not actual stool. We did discuss potential other imaging and further workup but I do think the problem still is related to constipation. Discussed admission versus returning home. I appreciate that is concerned about flare of pain again. I am not sure what could be benefited from hospitalization though at this time. Can certainly return here; would not wait as long as he did last time in stoic pain. See patient discharge plan for further discussion Continue to focus on hydration as discussed before. I do think your pain is still consistent with what we are seeing in your x-rays of increasing stool burden. You did have a trace amount of blood in your urine when we last checked and I would have your urinalysis done in a couple of weeks again. This is not necessarily uncommon. If pain intensifies, localizes and is lasting for an hour or 2, I would be seen; particularly if this might be accompanied by of fever or repeated vomiting. We are sending you with some more enemas. If you feel hard stool that you are having trouble getting out, this would be a reason for an at about. Could also place a suppository overnight. You can continue dosing MiraLax perhaps in smoothies when you need to eat and continue MiraLax over the next 1-2 weeks as well as discussed prior. Otherwise eat extra fruit and vegetables. Would like you to take another half bottle of magnesium citrate as well this evening. Repeat a bottle tomorrow morning if no good result in the meantime. Discharge Plan Discharge Clinical Impression: Constipation, Colicky abdominal pain Patient Disposition: Home w/ Parent or Adult Condition: Stable Additional Instructions: Continue to focus on hydration as discussed before. I do think your pain is still consistent with what we are seeing in your x-rays of increasing stool burden. You did have a trace amount of blood in your urine when we last checked and I would have your urinalysis done in a couple of weeks again. This is not necessarily uncommon. If pain intensifies, localizes and is lasting for an hour or 2, I would be seen; particularly if this might be accompanied by of fever or repeated vomiting. We are sending you with some more enemas. If you feel hard stool that you are having trouble getting out, this would be a reason for an at about. Could also place a suppository overnight. You can continue dosing MiraLax perhaps in smoothies when you need to eat and continue MiraLax over the next 1-2 weeks as well as discussed prior. Otherwise eat extra fruit and vegetables. Would like you to take another half bottle of magnesium citrate as well this evening. Repeat a bottle tomorrow morning if no good result in the meantime. Prescriptions: No Action isosorbide mononitrate 20 mg tablet 30 mg PO BID Rx Instructions: give doses 7 hrs apart atorvastatin 40 mg tablet 40 mg PO DAILY clopidogrel 75 mg tablet 75 mg PO DAILY lisinopril-hydrochlorothiazide 20-25 mg tablet 1 tab PO DAILY aspirin [Adult Aspirin Regimen] .ROUTE metoprolol succinate 25 mg tablet extended release 24 hr 12.5 mg PO DAILY Follow Up/Referrals: Sariah Culver MD [Primary Care Provider] - Stand Alone Forms: [employer] Info Instructions
--- NOTE | 2024-03-13 12:04 | CRLHL7_ITS ---
For Patients: As a result of the Century Cures Act, medical imaging exams and procedure reports are released immediately into your electronic medical record. You may view this report before your referring provider. If you have questions, please contact your health care provider. INDICATION: Colicky abdominal pain, especially right lower quadrant. TECHNIQUE: Abdomen four views. COMPARISON: Abdominal radiographs 03/10/2024. FINDINGS: Bowel gas pattern is nonobstructive. No evidence of free intraperitoneal gas. Fecal loading of the proximal colon has increased in the interval. Soft tissues elsewhere as imaged are unremarkable. Degenerative changes of the spine and pelvis, as before. IMPRESSION: Fecal loading of the proximal colon has increased. Dictated by Shreyas Chun MD @ 03/13/2024 12:59:12 PM (Electronically Signed)
--- OUTSIDE RECORDS SUMMARY | 2024-03-13 12:12 | XMS_ITS | Continuity of Care Document ---
Author Name [facility] Organization [facility] Care Team Providers Care Industrial Hygiene Manager Name Role Phone [facility] Unavailable Unavailable Problems Combined list of problems from Department of Defense and [facility] Affairs facilities. It does not include entries that were removed or entered in error. 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 Nov 22, 2022 Entered By: Phil GOMES Comment: 11/19/2022 [facility] Basal cell carcinoma of skin Active Condition [facility] Benign prostatic hyperplasia Active Condition [facility] CAD - Coronary artery disease Active Condition Feb 16, 2024 Entered By: Phil GOMES Comment: NSTEMI, 01/30/2024 had PCI to mid LAD [facility] Cataract, Senile, Unsp Active Condition [facility] Chronic kidney disease stage 3 Active Condition [facility] Coronary atherosclerosis Active Condition [facility] Dysphagia Active Condition [facility] Former heavy tobacco smoker Active Condition [facility] GERD Active Condition [facility] Hydrocele Nos Active Condition [facility] Hypercholesterolemia * (ICD-9-CM 272.0) Active Condition [facility] Hyperlipidemia Active Condition [facility] Hyperlipidemia * (ICD-9-CM 272.4) Active Condition [facility] Hypermetropia/Hyperopia Active Condition [facility] Hypertension (SNOMED CT 20576390) Active Condition [facility] HYPERTENSION NOS Active Condition [facility] Hypertension, Benign Active Condition [facility] Hypothyroidism (SNOMED CT 40896966) Active Condition [facility] Hypothyroidism * (ICD-9-CM 244.9) Active Condition [facility] Low Back Pain * (ICD-9-CM 724.2) Active Condition [facility] 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) Active Condition [facility] Pain of left shoulder joint Active Condition [facility] Presbyopia Active Condition [facility] PROSTATE-BENING LOC HYPERPLASIA Active Condition [facility] Solitary nodule of lung Active Condition [facility] Diagnosis: ICD-10-CM K59.00 Constipation, unspecified Active Diagnosis [facility] Diagnosis: ICD-10-CM I25.10 Athscl heart disease of [place] coronary artery w/o ang pctrs Active Diagnosis [facility] Diagnosis: ICD-10-CM Z13.6 Encounter for screening for cardiovascular disorders Active Diagnosis [facility] Diagnosis: ICD-10-CM I21.4 Non-ST elevation (NSTEMI) myocardial infarction Active Diagnosis [facility] Diagnosis: ICD-10-CM I50.9 Heart failure, unspecified Active Diagnosis [facility] Admit Reason: UNSTABLE ANGINA,HEP GTT Active Diagnosis [facility] Diagnosis: ICD-10-CM R94.31 Abnormal electrocardiogram [ECG] [EKG] Active Diagnosis [facility] Diagnosis: ICD-10-CM 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 Diagnosis [facility] Diagnosis: ICD-10-CM D48.5 Neoplasm of uncertain behavior of skin Active Diagnosis [facility] Diagnosis: ICD-10-CM Z71.2 Person consulting for explanation of exam or test findings Active Diagnosis [facility] Diagnosis: ICD-10-CM Z71.9 Counseling, unspecified Active Diagnosis [facility] Diagnosis: ICD-10-CM Z23 Encounter for immunization Active Diagnosis [facility] Diagnosis: ICD-10-CM Z46.1 Encounter for fitting and adjustment of hearing aid Active Diagnosis [facility] Diagnosis: ICD-10-CM R13.12 Dysphagia, oropharyngeal phase Active Diagnosis [facility] Diagnosis: ICD-10-CM C44.41 Basal cell carcinoma of skin of scalp and neck Active Diagnosis [facility] Diagnosis: ICD-10-CM L57.0 Actinic keratosis Active Diagnosis [facility] Diagnosis: ICD-10-CM H90.3 Sensorineural hearing loss, bilateral Active Diagnosis [facility] Diagnosis: ICD-10-CM M19.012 Primary osteoarthritis, left shoulder Active Diagnosis [facility] Medications Combined list of outpatient medications [...] DAY FOR HEART DISEASE ORAL ACTIVE 04/30/2024 [id number] JULIET SMART S 2023 90 [facility] ATORVASTATI N CA 40MG TAB TAKE ONE TABLET BY MOUTH EVERY DAY FOR CHOLESTE ROL ORAL ACTIVE 04/30/2024 [id number] 4 TATYANDRES BRITTNEYJULIET S 2023 90 [facility] CALCIPOTRIE NE 0.005% CREAM,TOP APPLY THIN LAYER [...] TO NOSE, EYES, MOUTH. TOPICA L 02/04/2024 [id number] 4 LAWANDA SANCHES 2023 60 [facility] CLOPIDOGREL BISULFATE 75MG TAB TAKE ONE TABLET BY MOUTH EVERY DAY FOR 1 YEAR AFTER STENT THROUGH 01/28/25 ORAL ACTIVE 04/30/2024 [id number] BINGJULIET S 2023 90 [facility] FLUOROURACI L 5% CREAM,TOP APPLY PEA SIZED [...] TREATMEN T IN CLINIC. CYNDI Gomez 02/04/2024 [id number] 4 LAWANDA SANCHES 2023 40 [facility] HYDROCHLORO THIAZIDE 25MG/LISINO PRIL 20MG TAB TAKE 1 TABLET BY MOUTH EVERY MORNING FOR BLOOD PRESSURE . ORAL ACTIVE 01/31/2025 [id number] 4 JULIET SMART 2023 90 [facility] HYDROCHLORO THIAZIDE 25MG/LISINO PRIL 20MG TAB TAKE 1 TABLET BY MOUTH EVERY MORNING FOR BLOOD PRESSURE . ORAL DISCONT INUED BY PROVIDE R 06/13/2024 [id number] JACKELYN GOMES 2023 90 [facility] HYDROCHLORO THIAZIDE 25MG/LISINO PRIL 20MG TAB TAKE 1 TABLET BY MOUTH EVERY MORNING FOR BLOOD PRESSURE . ORAL DISCONT INUED 03/24/2023 [id number] ROWDY EAST 2021 90 [facility] HYDROCHLORO THIAZIDE 25MG/LISINO PRIL 20MG TAB TAKE ONE TABLET BY MOUTH EVERY MORNING FOR BLOOD PRESSURE ([facility]DY [place] ; [place] [facility]) ORAL 03/17/2023 [id number] 3 ABELINO LEONG 2022 14 [facility] ISOSORBIDE MONONITRATE 30MG TAB,SA TAKE ONE TABLET BY MOUTH EVERY DAY FOR CHEST PAIN ORAL ACTIVE 04/30/2024 [id number] 4 JULIET SMART 2023 90 [facility] METOPROLOL SUCCINATE 25MG TAB,SA TAKE ONE TABLET BY MOUTH EVERY DAY FOR CHEST PAIN ORAL ACTIVE 04/30/2024 [id number] 4 JULIET SMART 2023 90 [facility] MULTI/NUTRITION TECHNICIAN AL/ANTIOXID ANT TAB MOUTH EVERY DAY ORAL ACTIVE JACKELYN GOMES 2022 [facility] NITROGLYCER IN 0.4MG TAB,SUBLING UAL DISSOLVE ONE TABLET UNDER THE TONGUE EVERY 5 MINUTES FOR UP TO 3 DOSES IF NEEDED FOR CHEST PAIN SUBLIN GUAL 02/10/2024 [id number] 4 JACKELYN GOMES 2023 100 [facility] POLYETHYLEN E GLYCOL 3350 PWDR,ORAL TAKE 17 GRAMS BY MOUTH EVERY DAY NEEDED FOR CONSTIPA TION ORAL ACTIVE 12/14/2024 [id number] 4 JACKELYN GOMES 2023 510 [facility] SILVER SULFADIAZIN E 1% CREAM,TOP APPLY TO AFFECTED AREA TOPICALL Y TWICE A DAY NEEDED FOR IRRITATE D SKIN TOPICA L ACTIVE 10/11/2024 [id number] 4 JACKELYN GOMES 2023 50 [facility] Immunizations Combined list of available immunizations from the Department of Defense and Veterans Affairs facilities. Immunization Series Date Given Administered By Site Reaction Lot Number CVX Code Drug Primer Charger Status Comments Source INFLUENZA, HIGH-DOSE, TRIVALENT, PF 2023 KATYA CANTU E LEFT DELTO ID [id number] A 135 complet ed [facility] INFLUENZA, HIGH-DOSE, QUADRIVALENT 2022 BOOGIE ROJAS A LEFT DELTO ID [id number] A 197 complet ed [facility] TDAP 2022 MARCUS ALMANZA L LEFT DELTO ID L 115 complet ed [facility] INFLUENZA, HIGH-DOSE, QUADRIVALENT 2021 197 complet ed Partner:Rosaline JACKMAN.Admin istered by:[facility] [id number].( [id number] [phone]).NDC:[id number] .Address: [address] [place] [address] .[address] Dosage: ML 0.7 C.WGuy [facility] INFLUENZA, INJECTABLE, QUADRIVALENT, PRESERVATIVE FREE 2020 150 complet ed [facility] COVID-19 (MODERNA), MRNA, LNP-S, PF, 100 MCG/0.5ML DOSE OR 50 MCG/0.25ML DOSE 2 2020 207 complet ed [facility] COVID-19 (MODERNA), MRNA, LNP-S, PF, 100 MCG/0.5ML DOSE OR 50 MCG/0.25ML DOSE 1 2020 207 complet ed [facility] INFLUENZA, INJECTABLE, QUADRIVALENT, PRESERVATIVE FREE 2019 150 complet ed [facility] INFLUENZA, SEASONAL, INJECTABLE, PRESERVATIVE FREE 2018 NONE 140 complet ed Right Deltoid (IM) 0.5ml, Lot #:[id number] Exp 10-09-2019 , Name:FLUA LISA QUADRIVAL ENT, Manu:[employer] [facility] ZOSTER RECOMBINANT 2 2018 187 complet ed [facility] ZOSTER RECOMBINANT 1 2018 187 complet ed [facility] INFLUENZA, HIGH DOSE SEASONAL 2017 135 complet ed [facility] INFLUENZA, HIGH DOSE SEASONAL 2017 135 complet ed [facility] INFLUENZA, INJECTABLE, MDCK, PRESERVATIVE FREE, QUADRIVALENT 2016 171 complet ed Partner: Alberto . Administe red by: Alberto Clinician (NPI=Not Provided) . Partner 2 Lot#: [id number] Mfr: RAMONA [facility] INFLUENZA, SEASONAL, INJECTABLE, PRESERVATIVE FREE 2015 140 complet ed [facility] PNEUMOCOCCAL CONJUGATE PCV 13 2014 133 complet ed 000 [facility] INFLUENZA, UNSPECIFIED FORMULATION 2013 88 complet ed [facility] INFLUENZA, UNSPECIFIED FORMULATION 2012 88 complet ed [facility] TDAP 2012 115 complet ed Glaxo aguero de la torre,22C 9R, [facility] ZOSTER LIVE 2012 121 complet ed Merck,J00 [id number] L14 [facility] INFLUENZA, UNSPECIFIED FORMULATION 2011 88 complet ed [facility] INFLUENZA, UNSPECIFIED FORMULATION 2010 88 complet ed [facility] INFLUENZA, UNSPECIFIED FORMULATION 2009 88 complet ed [facility] INFLUENZA, UNSPECIFIED FORMULATION 2008 88 complet ed Lindsey [facility] INFLUENZA, UNSPECIFIED FORMULATION 2008 88 complet ed [facility] INFLUENZA, UNSPECIFIED FORMULATION 2007 88 complet ed [facility] INFLUENZA, UNSPECIFIED FORMULATION 2007 88 complet ed Lindsey [facility] INFLUENZA, UNSPECIFIED FORMULATION 2007 88 complet ed Lindsey [facility] INFLUENZA, UNSPECIFIED FORMULATION 2006 88 complet ed [facility] PNEUMOCOCCAL (HISTORICAL) 2006 NONE 109 complet ed Left Deltoid (IM), Lot Number:[id number] Exp: 12/24/08 [facility] PNEUMOCOCCAL, UNSPECIFIED FORMULATION 2006 109 complet ed [facility] TD (ADULT), 5 LF TETANUS TOXOID, PRESERVATIVE FREE, ADSORBED 2005 113 complet ed [facility] INFLUENZA, SEASONAL, INJECTABLE 2004 141 complet ed [facility] TD(ADULT) UNSPECIFIED FORMULATION 2004 139 complet ed [facility] TD(ADULT) UNSPECIFIED FORMULATION 2003 139 complet ed Lindsey [facility] TD(ADULT) UNSPECIFIED FORMULATION 1994 139 complet ed [facility] Results Combined list of recent chemistry, [...] Jan 31, 2024 10:13 AM Reporting Lab: [facility] [address] Performing Lab: [facility] [address] [place] [facility] LIPID PANEL,FAS TING CHOLESTEROL [MASS/VOLUM E] IN SERUM OR PLASMA 125 mg/dL <199 - 199 01/30 Specimen Type: PLASMA No comment entered. Ordering Provider: Nargis SMART Report Released Date/Time: Jan 31, 2024 10:13 AM Reporting Lab: [facility] [address] Performing Lab: [facility] [address] [place] [facility] LIPID PANEL,FAS TING TRIGLYCERID E [MASS/VOLUM E] IN SERUM OR PLASMA 95 mg/dL <149 - 149 01/30 Specimen Type: PLASMA No comment entered. Ordering Provider: Nargis SMART Report Released Date/Time: Jan 31, 2024 10:13 AM Reporting Lab: [facility] [address] Performing Lab: [facility] [address] [place] [facility] LIPID PANEL,FAS TING CHOLESTEROL IN HDL [MASS/VOLUM E] IN SERUM OR PLASMA 37 mg/dL 40 01/30 L Specimen Type: PLASMA No comment entered. Ordering Provider: Nargis SMART Report Released Date/Time: Jan 31, 2024 10:13 AM Reporting Lab: [facility] [address] Performing Lab: [facility] [address] [place] [facility] LIPID PANEL,FAS TING CHOLESTEROL IN LDL [MASS/VOLUM E] IN SERUM OR PLASMA BY CALCULATION 69 mg/dL <99 - 99 01/30 Specimen Type: PLASMA No comment entered. Ordering Provider: Nargis SMART Report Released Date/Time: Jan 31, 2024 10:13 AM Reporting Lab: [facility] [address] Performing Lab: [facility] [address] [place] [facility] LIPID PANEL,FAS TING CHOLESTEROL IN VLDL [MASS/VOLUM E] IN SERUM OR PLASMA BY CALCULATION 19 mg/dL <29 - 29 01/30 Specimen Type: PLASMA No comment entered. Ordering Provider: Nargis SMART Report Released Date/Time: Jan 31, 2024 10:13 AM Reporting Lab: [facility] [address] Performing Lab: [place] [address] [place] [facility] LIPID PANEL,FAS TING CHOLESTEROL NON HDL [MASS/VOLUM E] IN SERUM OR PLASMA 88 mg/dL <129 - 129 01/30 Specimen Type: PLASMA No comment entered. Ordering Provider: Nargis SMART Report Released Date/Time: Jan 31, 2024 10:13 AM Reporting Lab: [place] [address] Performing Lab: [place] [address] [place] [facility] CBC LEUKOCYTES [#/VOLUME] IN BLOOD BY AUTOMATED COUNT 7.3 4.0 - 11.0 01/30 Specimen Type: BLOOD No comment entered. Ordering Provider: BASHIR CARVAJAL Report Released Date/Time: Jan 30, 2024 01:03 PM Reporting Lab: [facility] [address] Performing Lab: [facility] [address] [place] [facility] CBC ERYTHROCYTE S [#/VOLUME] IN BLOOD BY AUTOMATED COUNT 3.83 4.60 - 6.20 01/30 L Specimen Type: BLOOD No comment entered. Ordering Provider: BASHIR CARVAJAL Report Released Date/Time: Jan 30, 2024 01:03 PM Reporting Lab: [facility] [address] Performing Lab: [facility] [address] [place] [facility] CBC HEMOGLOBIN [MASS/VOLUM E] IN BLOOD 11.4 g/dL 13.5 - 17.9 01/30 L Specimen Type: BLOOD No comment entered. Ordering Provider: BASHIR CARVAJAL Report Released Date/Time: Jan 30, 2024 01:03 PM Reporting Lab: [facility] [address] Performing Lab: [place] [address] [place] [facility] CBC HEMATOCRIT [VOLUME FRACTION] OF BLOOD BY AUTOMATED COUNT 35.1 41.0 - 54.0 01/30 L Specimen Type: BLOOD No comment entered. Ordering Provider: BASHIR CARVAJAL Report Released Date/Time: Jan 30, 2024 01:03 PM Reporting Lab: [facility] [address] Performing Lab: [facility] [address] [place] [facility] CBC MCV [ENTITIC VOLUME] BY AUTOMATED COUNT 91.6 fL 80.0 - 100.0 01/30 Specimen Type: BLOOD No comment entered. Ordering Provider: BASHIR CARVAJAL Report Released Date/Time: Jan 30, 2024 01:03 PM Reporting Lab: [facility] [address] Performing Lab: [facility] [address] [place] [facility] CBC MCH [ENTITIC MASS] BY AUTOMATED COUNT 29.8 pg 27.0 - 33.0 01/30 Specimen Type: BLOOD No comment entered. Ordering Provider: BASHIR CARVAJAL Report Released Date/Time: Jan 30, 2024 01:03 PM Reporting Lab: [facility] [address] Performing Lab: [facility] [address] [place] [facility] CBC MCHC [MASS/VOLUM E] BY AUTOMATED COUNT 32.5 g/dL 32.0 - 37.5 01/30 Specimen Type: BLOOD No comment entered. Ordering Provider: BASHIR CARVAJAL Report Released Date/Time: Jan 30, 2024 01:03 PM Reporting Lab: [facility] [address] Performing Lab: [facility] [address] [place] [facility] CBC PLATELETS [#/VOLUME] IN BLOOD BY AUTOMATED COUNT 193 150 - 400 01/30 Specimen Type: BLOOD No comment entered. Ordering Provider: BASHIR CARVAJAL Report Released Date/Time: Jan 30, 2024 01:03 PM Reporting Lab: [facility] [address] Performing Lab: [facility] [address] [place] [facility] CBC PLATELET MEAN VOLUME [ENTITIC VOLUME] IN BLOOD BY AUTOMATED COUNT 10.7 fL 9.1 - 13.0 01/30 Specimen Type: BLOOD No comment entered. Ordering Provider: BASHIR CARVAJAL Report Released Date/Time: Jan 30, 2024 01:03 PM Reporting Lab: [facility] [address] Performing Lab: [facility] [address] [place] [facility] CBC ERYTHROCYTE DISTRIBUTIO N WIDTH [RATIO] BY AUTOMATED COUNT 12.2 11.5 - 14.5 01/30 Specimen Type: BLOOD No comment entered. Ordering Provider: BASHIR CARVAJAL Report Released Date/Time: Jan 30, 2024 01:03 PM Reporting Lab: [facility] [address] Performing Lab: [facility] [address] [place] [facility] BASIC METABOLIC PANEL+MG CREATININE [MASS/VOLUM E] IN SERUM OR PLASMA 1.3 mg/dL 0.7 - 1.2 01/30 H Specimen Type: PLASMA No comment entered. Ordering Provider: BASHIR CARVAJAL Report Released Date/Time: Jan 30, 2024 01:03 PM Reporting Lab: [facility] [address] Performing Lab: [facility] [address] [place] [facility] BASIC METABOLIC PANEL+MG UREA NITROGEN [MASS/VOLUM E] IN SERUM OR PLASMA 24 mg/dL 8 - 26 01/30 Specimen Type: PLASMA No comment entered. Ordering Provider: BASHIR CARVAJAL Report Released Date/Time: Jan 30, 2024 01:03 PM Reporting Lab: [facility] [address] Performing Lab: [facility] [address] [place] [facility] BASIC METABOLIC PANEL+MG GLUCOSE [MASS/VOLUM E] IN SERUM OR PLASMA 91 mg/dL 70 - 100 01/30 Specimen Type: PLASMA No comment entered. Ordering Provider: BASHIR CARVAJAL Report Released Date/Time: Jan 30, 2024 01:03 PM Reporting Lab: [facility] [address] Performing Lab: [facility] [address] [place] [facility] BASIC METABOLIC PANEL+MG SODIUM [MOLES/VOLU ME] IN SERUM OR PLASMA 138 mmol/L 136 - 145 01/30 Specimen Type: PLASMA No comment entered. Ordering Provider: BASHIR CARVAJAL Report Released Date/Time: Jan 30, 2024 01:03 PM Reporting Lab: [facility] [address] Performing Lab: [facility] [address] [place] [facility] BASIC METABOLIC PANEL+MG POTASSIUM [MOLES/VOLU ME] IN SERUM OR PLASMA 4.1 mmol/L 3.5 - 5.1 01/30 Specimen Type: PLASMA No comment entered. Ordering Provider: BASHIR CARVAJAL Report Released Date/Time: Jan 30, 2024 01:03 PM Reporting Lab: [facility] [address] Performing Lab: [facility] [address] [place] [facility] BASIC METABOLIC PANEL+MG CHLORIDE [MOLES/VOLU ME] IN SERUM OR PLASMA 108 mmol/L 98 - 107 01/30 H Specimen Type: PLASMA No comment entered. Ordering Provider: BASHIR CARVAJAL Report Released Date/Time: Jan 30, 2024 01:03 PM Reporting Lab: [facility] [address] Performing Lab: [facility] [address] [place] [facility] BASIC METABOLIC PANEL+MG CARBON DIOXIDE, TOTAL [MOLES/VOLU ME] IN SERUM OR PLASMA 23 mmol/L 22 - 29 01/30 Specimen Type: PLASMA No comment entered. Ordering Provider: BASHIR CARVAJAL Report Released Date/Time: Jan 30, 2024 01:03 PM Reporting Lab: [facility] [address] Performing Lab: [facility] [address] [place] [facility] BASIC METABOLIC PANEL+MG CALCIUM [MASS/VOLUM E] IN SERUM OR PLASMA 8.8 mg/dL 8.4 - 10.2 01/30 Specimen Type: PLASMA No comment entered. Ordering Provider: BASHIR CARVAJAL Report Released Date/Time: Jan 30, 2024 01:03 PM Reporting Lab: [facility] [address] Performing Lab: [facility] [address] [place] [facility] BASIC METABOLIC PANEL+MG MAGNESIUM [MASS/VOLUM E] IN SERUM OR PLASMA 2.1 mg/dL 1.6 - 2.6 01/30 Specimen Type: PLASMA No comment entered. Ordering Provider: BASHIR CARVAJAL Report Released Date/Time: Jan 30, 2024 01:03 PM Reporting Lab: [facility] [address] Performing Lab: [facility] [address] [place] [facility] BASIC METABOLIC PANEL+MG ANION GAP IN SERUM OR PLASMA 7 mmol/L 5 - 15 01/30 Specimen Type: PLASMA No comment entered. Ordering Provider: BASHIR CARVAJAL Report Released Date/Time: Jan 30, 2024 01:03 PM Reporting Lab: [facility] [address] Performing Lab: [facility] [address] [place] [facility] BASIC METABOLIC PANEL+MG GLOMERULAR FILTRATION RATE/1.73 SQ M.PREDICTED [VOLUME RATE/AREA] IN SERUM, PLASMA OR BLOOD BY CREATININE- BASED FORMULA (CKD-EPI 2020) 54 60 01/30 L Specimen Type: PLASMA No comment entered. Ordering Provider: BASHIR CARVAJAL Report Released Date/Time: Jan 30, 2024 01:03 PM Reporting Lab: [facility] [address] Performing Lab: [facility] [address] [place] [facility] POC ACT ACTIVATED CLOTTING TIME (ACT) OF BLOOD BY COAGULATION ASSAY 241 s 84 - 139 01/29 H Specimen Type: BLOOD No comment entered. Ordering Provider: RODO CHRISTY Report Released Date/Time: Jan 30, 2024 10:43 AM Reporting Lab: [facility] [address] Performing Lab: [facility] [address] [place] [facility] POC ACT ACTIVATED CLOTTING TIME (ACT) OF BLOOD BY COAGULATION ASSAY 289 s 84 - 139 01/29 H Specimen Type: BLOOD No comment entered. Ordering Provider: RODO CHRISTY Report Released Date/Time: Jan 30, 2024 10:14 AM Reporting Lab: [facility] [address] Performing Lab: [facility] [address] [place] [facility] POC ACT ACTIVATED CLOTTING TIME (ACT) OF BLOOD BY COAGULATION ASSAY 294 s 84 - 139 01/29 H Specimen Type: BLOOD No comment entered. Ordering Provider: RODO CHRISTY Report Released Date/Time: Jan 30, 2024 10:14 AM Reporting Lab: [facility] [address] Performing Lab: [facility] [address] [place] [facility] HEPARIN APTT APTT IN PLATELET POOR PLASMA BY COAGULATION ASSAY 83.2 s 48.0 - 92.0 01/29 Specimen Type: PLASMA No comment entered. Ordering Provider: BASHIR CARVAJAL Report Released Date/Time: Jan 29, 2024 09:43 PM Reporting Lab: [facility] [address] Performing Lab: [facility] [address] [place] [facility] BASIC METABOLIC PANEL+MG CREATININE [MASS/VOLUM E] IN SERUM OR PLASMA 1.4 mg/dL 0.7 - 1.2 01/29 H Specimen Type: PLASMA No comment entered. Ordering Provider: BASHIR CARVJAAL Report Released Date/Time: Jan 29, 2024 12:19 PM Reporting Lab: [facility] [id number] Performing Lab: [facility] [id number] [place] [facility] BASIC METABOLIC PANEL+MG UREA NITROGEN [MASS/VOLUM E] IN SERUM OR PLASMA 27 mg/dL 8 - 26 01/29 H Specimen Type: PLASMA No comment entered. Ordering Provider: BASHIR CARVAJAL Report Released Date/Time: Jan 29, 2024 12:19 PM Reporting Lab: [facility] [address] Performing Lab: [facility] [address] [place] [facility] BASIC METABOLIC PANEL+MG GLUCOSE [MASS/VOLUM E] IN SERUM OR PLASMA 95 mg/dL 70 - 100 01/29 Specimen Type: PLASMA No comment entered. Ordering Provider: BASHIR CARVAJAL Report Released Date/Time: Jan 29, 2024 12:19 PM Reporting Lab: [facility] [address] Performing Lab: [facility] [address] [place] [facility] BASIC METABOLIC PANEL+MG SODIUM [MOLES/VOLU ME] IN SERUM OR PLASMA 139 mmol/L 136 - 145 01/29 Specimen Type: PLASMA No comment entered. Ordering Provider: BASHIR CARVAJAL Report Released Date/Time: Jan 29, 2024 12:19 PM Reporting Lab: [facility] [address] Performing Lab: [facility] [address] [place] [facility] BASIC METABOLIC PANEL+MG POTASSIUM [MOLES/VOLU ME] IN SERUM OR PLASMA 4.2 mmol/L 3.5 - 5.1 01/29 Specimen Type: PLASMA No comment entered. Ordering Provider: BASHIR CARVAJAL Report Released Date/Time: Jan 29, 2024 12:19 PM Reporting Lab: [facility] [address] Performing Lab: [facility] [address] [place] [facility] BASIC METABOLIC PANEL+MG CHLORIDE [MOLES/VOLU ME] IN SERUM OR PLASMA 109 mmol/L 98 - 107 01/29 H Specimen Type: PLASMA No comment entered. Ordering Provider: BASHIR CARVAJAL Report Released Date/Time: Jan 29, 2024 12:19 PM Reporting Lab: [facility] [address] Performing Lab: [facility] [address] [place] [facility] BASIC METABOLIC PANEL+MG CARBON DIOXIDE, TOTAL [MOLES/VOLU ME] IN SERUM OR PLASMA 24 mmol/L 22 - 29 01/29 Specimen Type: PLASMA No comment entered. Ordering Provider: BASHIR CARVAJAL Report Released Date/Time: Jan 29, 2024 12:19 PM Reporting Lab: [facility] [address] Performing Lab: [facility] [address] [place] [facility] BASIC METABOLIC PANEL+MG CALCIUM [MASS/VOLUM E] IN SERUM OR PLASMA 9.0 mg/dL 8.4 - 10.2 01/29 Specimen Type: PLASMA No comment entered. Ordering Provider: BASHIR CARVAJAL Report Released Date/Time: Jan 29, 2024 12:19 PM Reporting Lab: [facility] [address] Performing Lab: [facility] [address] [place] [facility] BASIC METABOLIC PANEL+MG MAGNESIUM [MASS/VOLUM E] IN SERUM OR PLASMA 2.1 mg/dL 1.6 - 2.6 01/29 Specimen Type: PLASMA No comment entered. Ordering Provider: BASHIR CARVAJAL Report Released Date/Time: Jan 29, 2024 12:19 PM Reporting Lab: [facility] [address] Performing Lab: [facility] [address] [place] [facility] BASIC METABOLIC PANEL+MG ANION GAP IN SERUM OR PLASMA 6 mmol/L 5 - 15 01/29 Specimen Type: PLASMA No comment entered. Ordering Provider: BASHIR CARVAJAL Report Released Date/Time: Jan 29, 2024 12:19 PM Reporting Lab: [facility] [address] Performing Lab: [facility] [address] [place] [facility] BASIC METABOLIC PANEL+MG GLOMERULAR FILTRATION RATE/1.73 SQ M.PREDICTED [VOLUME RATE/AREA] IN SERUM, PLASMA OR BLOOD BY CREATININE- BASED FORMULA (CKD-EPI 2020) 49 60 01/29 L Specimen Type: PLASMA No comment entered. Ordering Provider: BASHIR CARVAJAL Report Released Date/Time: Jan 29, 2024 12:19 PM Reporting Lab: [facility] [address] Performing Lab: [facility] [address] [facility] HEPARIN APTT APTT IN [place] POOR PLASMA BY COAGULATION ASSAY 214.6 s 48.0 - 92.0 01/28 HH Specimen Type: PLASMA Comment: Critical Value Reported To: Tomasa Delcid PharmD 01/29/24 @212[facility]. Critical value report confirmed. Ordering Provider: NICOLA SAMUEL Report Released Date/Time: Jan 29, 2024 03:00 PM Reporting Lab: [facility] [address] Performing Lab: [facility] [address] [facility] Vital Signs Combined list of inpatient and outpatient Vital Signs from Department of Defense and Veterans Affairs, ranging from 12 months to all on record, depending upon the facility. Vital Sign Value Date Comments Source SYSTOLIC BLOOD PRESSURE 147 02/24/2024 12:48:35 [facility] DIASTOLIC BLOOD PRESSURE 77 02/24/2024 12:48:35 [place] [facility] DIASTOLIC BLOOD PRESSURE 80 02/21/2024 09:52:03 [facility] PULSE OXIMETRY 98 02/21/2024 09:52:03 [...] 01/30/2024 08:00:00 [facility] PAIN 0 01/28/2024 03:42:00 [facility] SYSTOLIC BLOOD PRESSURE 138 01/11/2024 13:25:22 [facility] DIASTOLIC BLOOD PRESSURE 79 01/11/2024 13:25:22 [facility] PULSE OXIMETRY 98 01/11/2024 13:25:22 [facility] WEIGHT 151 01/11/2024 13:25:22 [facility] BMI 24kg/m2 01/11/2024 13:25:22 [facility] PAIN 0 01/11/2024 13:25:22 [facility] HEIGHT 67 01/11/2024 13:25:22 [facility] TEMPERATURE 98.8 01/11/2024 13:25:22 [facility] PULSE 53 01/11/2024 13:25:22 [facility] RESPIRATION 16 01/11/2024 13:25:22 [facility] Encounters Combined list of: 1) Encounters from Department of [facility] Affairs facilities going back up to thelast 18 months. 2) Encounters from the Department of [facility] facilities going back up to 280 months. 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
JESSICA DIOR 10/18 [facility] Outpatient Encounter [id number] 10/18 [facility] OFFICE O/P EST LOW 20-29 MIN [id number] Diagnos is: ICD-10- CM H90.3 Sensori neural hearing loss, bilater al
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
Yarelis PENNINGTON 11/11 [facility] OFFICE O/P NEW SF 15-29 MIN [id number] Diagnos is: ICD-10- CM L57.0 Actinic keratos is
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
ALEX BHATT 11/24 [facility] OFFICE O/P EST MOD 30-39 MIN [id number] Diagnos is: ICD-10- CM R13.12 Dysphag ia, orophar yngeal phase<b r/> FADY VENCES 12/06 [facility] [place] [facility] DEPT OF [facility] CASE MANAGEMENT [id number] MARCUS VAUGHN 01/04 [place] [facility] OF [facility] [place] DEPT OF [facility] Outpatient Encounter [id number] MARCUS VAUGHN 01/06 [place] [facility] DEPT OF [facility] IS [facility] CONFORMITY EVALUATION [id number] Diagnos is: ICD-10- CM Z46.1 Encount er for fitting and adjustm ent of hearing aid<br/ > SYDNEE RANDALL RTHA R 01/07 [facility] Outpatient Encounter [id number] 01/11 [facility] HC PRO PHONE CALL 5-10 MIN [id number] Diagnos is: ICD-10- CM 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
TAINA BENJAMIN ICA K 01/11 [facility] Outpatient Encounter [id number] 01/12 [facility] [place]UNIZATI [place] ADMIN [id number] [id number] Diagnos is: ICD-10- CM Z23 Encount er for immuniz ation<b r/> CYNDIE ROJAS S A 01/28 [facility] Outpatient Encounter [id number] JUAN ARMENTA 02/10 [facility] Outpatient Encounter [id number] 02/14 [facility] Outpatient Encounter [id number] ABELINO LEONG 02/15 [facility] PRO PHONE CALL 5-10 MIN [id number] [id number] Diagnos is: ICD-10- CM 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
TAINA BENJAMIN ICA K 02/15 [facility] OFFICE O/P EST LOW 20-29 MIN [id number] Diagnos is: ICD-10- CM D48.5 Neoplas m of uncerta in behavio r of skin
DANITZA,PET ER L 02/17 [facility] Lindsey [facility] DEPT OF [facility] Outpatient Encounter [id number] EBONIE GRIGGS H 02/24 [place] DEPT OF [facility] IS [facility] CASE MANAGEMENT [id number] Arpan HENDRICKSON 02/24 [facility] [place] DEPT OF [facility] Outpatient Encounter [id number] 02/24 [place] [facility] DEPT OF [facility] HC PRO PHONE CALL 5-10 MIN [id number] Diagnos is: ICD-10- CM Z71.2 Person consult ing for explana tion of exam or test finding s
KRISHNA SHERMAN ELBA K 02/25 [facility] Lindsey [place] DEPT OF [facility] Outpatient Encounter [id number] 03/08 [place] DEPT OF [facility] IS [facility] OFFICE O/P EST HI 40 MIN [id number] Diagnos is: ICD-10- CM K59.00 Constip ation, 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
Phil GOMES ALLY H 12/13 [facility] OFFICE O/P EST MOD 30 MIN [id number] Diagnos is: ICD-10- CM D48.5 Neoplas m of uncerta in behavio r of skin
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
Phil GOMES ALLDion H 01/10 [facility] Outpatient Encounter [id number] Diagnos is: ICD-10- CM R94.31 Abnorma l electro cardiog annia [ECG] [EKG]<b r/> Yarelis COLEMAN M 01/17 [facility] Outpatient Encounter [id number] BILLIE GILL KAREN L 01/19 [facility] Outpatient Encounter [id number] 01/25 [facility] [place] [facility] Outpatient Encounter [id number] SYSTEM,CIS -ARK 01/26 [facility] [place] [facility] Inpatient Encounter [id number] Jason KEY 01/26 [facility] [place] [facility] Inpatient Encounter [id number] 01/26 [facility] CT Scan of Mult Cor Art using Intravasc Optic Cohere [id number] Admit Reason: UNSTABL E ANGINA, HEP GTT<br/ > TEAM,CARDS ONE 01/26 [facility] Inpatient Encounter [id number] 01/26 [facility] 1ST HOSP IP/OBS HIGH 75 [id number] [id number] Diagnos is: ICD-10- CM 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
THERESA HAWTHORNE 01/27 [facility] [place] [facility] Inpatient Encounter [id number] 01/27 [facility] [place] [facility] Inpatient Encounter [id number] SYSTEM,CIS -ARK 01/28 [facility] [place] [facility] Inpatient Encounter [id number] 01/28 [facility] [place] [facility] Inpatient Encounter [id number] 01/28 [place] [facility] [place] [facility] Inpatient Encounter [id number] SYSTEM,CIS -ARK 01/29 [place] [facility] [place] [facility] Inpatient Encounter [id number] 01/29 [facility] [place] [facility] Inpatient Encounter [id number] 01/29 [place] [facility] [place] [facility] ENDOLUMINL IVUS OCT C 1ST [id number] Diagnos is: ICD-10- CM 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<br/ > THERESA HAWTHORNE 01/29 [place] [facility] [place] [facility] Inpatient Encounter [id number] 01/29 [place] [facility] [place] [facility] HOSP IP/OBS DSCHRG MGMT >30 [id number] Diagnos is: ICD-10- CM 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<br/ > ADELAIDA ROSSI 01/29 [place] [facility] [place] [facility] Inpatient Encounter [id number] SYSTEM,CIS -ARK 01/30 [facility] [place] [facility] Inpatient Encounter [id number] 01/30 [facility] [place] [facility] Inpatient Encounter [id number] 01/30 [facility] [place] [facility] Inpatient Encounter [id number] 01/30 [facility] [place] [facility] Inpatient Encounter [id number] 01/30 [facility] [place] [facility] Outpatient Encounter [id number] 01/31 [place] [facility] [place] [facility] Outpatient Encounter [id number] 02/02 [facility] [place] [facility] Outpatient Encounter [id number] 02/02 [place] [facility] [place] [facility] Outpatient Encounter [id number] 02/05 [facility] [place] [facility] Outpatient Encounter [id number] 02/08 [facility] [place] [facility] Outpatient Encounter [id number] 02/09 [place] [facility] [facility] [place] [facility] OFFICE O/[place] HI 40 MIN [id number] Diagnos is: ICD-10- CM 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<b r/> MARISELA KHAN 03/02 [facility] [place] DEPT OF [facility] CASE MANAGEMENT [id number] RODERICKMARCUSBREANA 03/05 [place] DEPT OF [facility] [place] DEPT OF [facility] CASE MANAGEMENT [id number] 2 RODERICKBREANA 03/07 [place] DEPT OF [facility] IS [facility] Outpatient Encounter [id number] 03/10 [facility] HC PRO PHONE CALL 11-20 MIN [id number] Diagnos is: ICD-10- CM K59.00 Constip ation, 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
TAINA BENJAMIN K 03/12 [facility] Outpatient Encounter [id number] Jason KEY 03/12 [facility] Social History Combined list of available smoking, tobacco, and other social history from Department of Defense and Veterans Affairs facilities. Social History Type Response Date Comment [facility] e Tobacco smoking status TNIS VA-TOBACCO FORMER USER 12/14/2023 [facility] History of tobacco use PR-TOBACCO QUIT 15 YRS OR MORE 12/14/2023 [facility] History of tobacco use VA-TOBACCO FORMER USER 10/13/2022 [facility] History of tobacco use VA-TOBACCO FORMER USER 07/27/2021 [facility] History of tobacco use VA-TOBACCO FORMER USER 01/02/2020 [facility] History of tobacco use VA-TOBACCO QUIT 15 YRS OR MORE 07/21/2018 [facility] History of tobacco use FORMER TOBACCO USER 7Y OR GREATER 12/24/2016 [facility] History of tobacco use FORMER TOBACCO USE >1Y <7Y 12/23/2015 [facility] History of tobacco use FORMER TOBACCO USER 7Y OR GREATER 12/26/2014 [facility] History of tobacco use LIFETIME NON-TOBACCO USER 08/13/2013 [facility] History of tobacco use LIFETIME NON TOBACCO USER 07/09/2009 [facility] History of tobacco use LIFETIME NON TOBACCO USER 07/26/2008 [facility] History of tobacco use LIFETIME NON TOBACCO USER 04/18/2007 [facility] History of tobacco use FORMER TOBACCO USER 7Y OR GREATER 08/30/2006 [facility] History of tobacco use LIFETIME NON TOBACCO USER 06/30/2006 [facility] History of tobacco use HF V9 CURRENT [id number] 09/13/2002 28 years ago [facility] Plan of Care List of future care activities from Department [facility] facilities. Additional future care activities may be listed in the Assessment and Plan section. Date/Time Care Activity Care Activity Detail Facili ty 03/14/2024 AMBULATORY - MEDICINE AMBULATORY - MEDICI NE [facility] 04/26/2024 AMBULATORY - MEDICINE AMBULATORY - MEDICI NE [facility] 07/31/2024 AMBULATORY - SURGERY AMBULATORY - SURGERY [facility] 08/21/2024 AMBULATORY - NONE AMBULATORY - NONE [facility] 08/21/2024 AMBULATORY - MEDICINE AMBULATORY - MEDICI NE [facility] 01/28/2024 Laboratory - [employer] Wiring Technician ry Order TROPONIN I, HS PLASMA STAT WC [facility] 03/01/2024 Consult Order IFC TRAVELING VE [facility] Director Financial Services's Choice STAT [facility] Advance Directives List of completed, amended, or rescinded Advance Directives on record at Department [facility] Affairs facilities. An actual copy of the Directive is not included. Date Advance Directive Provider Source 08/30/2006 [facility]VANCE DIRECTIVE [facility]
--- OUTSIDE RECORDS SUMMARY | 2024-03-13 12:17 | XMS_ITS | Encounter Summary ---
Author Name [facility] [place] Organization [facility] [place] Address [address] [place] [address] Care Team Providers Care Laboratory Chemical Assistant Name Role Phone JACKELYN GOMES Primary Care [...] PART A Sep 09, 2002 PART A [id number] JOAQUIN COUGHLIN S PATIENT MEDICARE (WNR) MEDICARE (M) PART B Sep 09, 2002 PART B [id number] JOAQUIN COUGHLIN S PATIENT MEDICARE (WNR) MEDICARE (M) PART A Sep 09, 2002 PART A [id number] JOAQUIN COUGHLIN S PATIENT MEDICARE (WNR) MEDICARE (M) PART B Sep 09, 2002 PART B [id number] JOAQUIN COUGHLIN S PATIENT Selected Encounter This section includes the information on record at [place] for the Encounter. Date/Time Encounter Type Encounter Description Reason Provider Source Mar 12, 2024 11:27 AM HC PRO PHONE CALL 11-20 MIN TELEPHONE PRIMARY CARE ICD-10-CM K59.00 Constipation, unspecified STUB,JAKE K IHE Encounter Template Text not used by [place] Assessments - Encounter Diagnoses This section includes the primary and secondary diagnoses documented for the Encounter. Date/Time Primary/Secondary Diagnosis Diagnosis Name Provider Source Mar 12, 2024 11:27 AM PRIMARY Constipation, unspecified STUB,JAKE K [facility] Plan of Treatment: Future Appointments (+ 6 months) and Future Tests (+/- 45 days) The Plan of Treatment section includes future care activities for the patient from all [place] treatmentfacilities. This section includes future appointments and future orders which are active, pending or scheduled. Future Appointments This section includes appointments that were scheduled to occur 6 months from the date of the Encounter, up to a maximum of 20 appointments. The data comes from all [facility]. Appointment Date/Time Appointment Type Appointme nt Facility Name Mar 14, 2024 01:30 PM AMBULATORY - MEDICINE [facility] Apr 26, 2024 10:00 AM AMBULATORY - MEDICINE [facility] Jul 31, 2024 09:20 AM AMBUL[facility]ORY [facility] SURGERY [facility] August 21, 2024 09:00 AM AMBULATORY - NONE [facility] August 21, 2024 10:00 AM AMBULATORY - MEDICINE [facility] Active, Pending, and Scheduled Orders This section includes a listing of several types of active, pending, and scheduled orders, including clinic medications orders, diagnostic test orders, procedure orders and consult orders; where the start date of the order is 45 days before the date of the Encounter or 45 days after the date of theEncounter. The data comes from all [facility]. Test Date/Time Test Type Test Details Facility Name Jan 28, 2024 02:00 AM Laboratory - Chemi stry Order TROPONIN I, HS PLASMA STAT [facility] Mar 01, 2024 03:28 PM Consult Order IFC TRAVEL ING UNIVERSAL CONSULT-[facility] Substation Design Draftsperson's Choice [facility] Social History: Smoking Status (Most current) [...] 14, 2023 11:30 AM VA-TOBACCO FORMER USER [facility] Tobacco Use History This section includes a history of the smoking, or tobacco-related health factors, that were collected on or before the date of the Encounter. The data comes from the [place] facility where the Encounter took place. Date/Time Smoking Status/Tobacco Use Comment F acility Dec 14, 2023 11:30 AM VA-TOBACCO QUIT 15 YRS OR MORE [facility] Oct 13, 2022 01:30 PM VA-TOBACCO FORMER USER [facility] Oct 13, 2022 01:30 PM VA-TOBACCO QUIT 15 YRS OR MORE [facility] Jul 27, 2021 10:00 AM VA-TOBACCO FORMER USER [facility] Jul 27, 2021 10:00 AM VA-TOBACCO QUIT 15 YRS OR MORE [facility] Jan 02, 2020 09:00 AM VA-TOBACCO FORMER USER [facility] Jan 02, 2020 09:00 AM VA-TOBACCO QUIT 15 YRS OR MORE [facility] Jul 21, 2018 03:00 PM VA-TOBACCO FORMER USER [facility] Jul 21, 2018 03:00 PM VA-TOBACCO QUIT 15 YRS OR MORE [facility] Dec 24, 2016 08:01 AM FORMER TOBACCO USER 7Y OR GREATE R [facility] Dec 23, 2015 08:23 AM FORMER TOBACCO USE >1Y <7Y [facility] Dec 26, 2014 10:32 AM FORMER TOBACCO USER 7Y OR GREATE R [facility] August 13, 2013 08:22 AM LIFETIME NON-TOBACCO USER [facility] August 30, 2006 08:38 AM FORMER TOBACCO USER 7Y OR GREATE R [facility] Advance Directives: All historical and current Section Date Range: From patient's date of to the date document was created. This section includes ALL of a patient's completed or amended [place] Advance and Rescinded Directives. The entries below indicate that a directive exists for the patient, but an actual copy is not included with this document. The data comes from all [facility]. Date Advance Directives Provider Source August 30, 2006 ADVANCE DIRECTIVE ARGENIS CRAMER [facility] Encounter Notes: All associated encounter notes This section contains the clinical notes associated to the Encounter. Date/Time Encounter Note(s) Provider Source Mar 12, 2024 11:39 AM PRIMARY CARE NOTE: LOCAL TITLE: POST DISCHARGE CONTACT STANDARD TITLE: PRIMARY CARE NOTE DATE OF NOTE: MAR 12, 2024@11:39 ENTRY DATE: MAR 12, 2024@11:39:32 AUTHOR: JAKE BENJAMIN EXP COSIGNER: URGENCY: STATUS: COMPLETED POST DISCHARGE CONTACT Has ADDENDA Location of Discharge: Emergency Department/Urgent Care Contact attempt: 1st Ramah identified by the following: Full Name Date of Contact made through telephone call Reason for hospitalization/Emergency Department/Urgent Care visit: Constipation Ramah/Caregiver states condition has not changed. Symptoms to monitor for health maintenance: worsening abdomen pain, bloody BM, nausea, vomiting Confirmed no changes made to medications, equipment or supplies. Primary Diagnosis at Discharge: Other Diagnosis: Constipation Follow up Service Referrals: No follow up service needs identified at this time Future Appointments: Informed, discussed and confirmed next scheduled appointments Education Provided: Length of time spent: 12 minutes /shelly/ JAKE BENJAMIN RN REGISTERED NURSE Signed: 03/12/2024 11:47 03/12/2024 ADDENDUM STATUS: COMPLETED Spoke with who reports he has not had a normal BM since roughly 03/06. He went to the [facility] ER and states he called the [facility] number already. reports the ER took imaging of his stomach, took his vitals which he recalls were stable and sent him home with medicines (i.e miralax) and enemas. He reports using the enema and was only able to get out 1 or 2 1/2 inch sized pellets. He is only able to pass gas when he used the enema otherwise not passing gas. He reprots still able to eat and drink fluids ok. feels the cause of constipation could be from his new heart medication, which card writer hand informed this thought could be brought up with his PCP. Ramah would like to have a f/u visit with his PCP regarding the constipation concern. Route Jumper able to find an available F2F slot on Tuesday03/14/24 at 1:30pm which ro is agreeable to take. Route Jumper advised if he were to develop new symptoms or feel worse, call to discuss your health questions/concerns, or present to the Emergency Room IF YOU ARE EXPERIENCING A MEDICAL EMERGENCY CALL 911 OR GO TO THE NEAREST EMERGENCY ROOM. verbalized understanding. RTC placed for PID date/time and card writer hand reached out to [facility] via TEAMS to get in open slot. Route Jumper still on phone with when [facility] confirmed scheduling in PID, card writer hand informed he was scheduled and he will come to for the appt. Route Jumper thanked for call. /shelly/ JAKE BENJAMIN RN REGISTERED NURSE Signed: 03/12/2024 11:56 JAKE BENJAMIN [facility]
--- OUTSIDE RECORDS SUMMARY | 2024-03-13 12:17 | XMS_ITS | Encounter Summary ---
Author Name [facility] [place] Organization [facility] [place] Address [address] [place] [address] Care Team Providers Care Rn Office Name Role Phone SARIAH GOMES Primary Care [...] PART A Sep 09, 2002 PART A [id number] JOAQUIN COUGHLIN S PATIENT MEDICARE (WNR) MEDICARE (M) PART B Sep 09, 2002 PART B [id number] [phone] JOAQUIN COUGHLIN S PATIENT MEDICARE (WNR) MEDICARE (M) PART A Sep 09, 2002 PART A [id number] [id number] JOAQUIN COUGHLIN S PATIENT MEDICARE (WNR) MEDICARE (M) PART B Sep 09, 2002 PART B [id number] [id number] JOAQUIN COUGHLIN PATIENT Selected Encounter This section includes the information on record at [place] for the Encounter. Date/Time Encounter Type Encounter Description Reason Pro vider Source Mar 10, 2024 06:07 PM Outpatient Encounter TELEPHONE TRIAGE IHE Encounter Template Text not used by [place] Plan of Treatment: Future Appointments (+ 6 months) and Future Tests (+/- 45 days) The Plan of Treatment section includes future care activities for the patient from [facility] [place] [facility]. This section includes future appointments and future orders which are active, pending or scheduled. Future Appointments This section includes appointments that were scheduled to occur 6 months from the date of the Encounter, up to a maximum of 20 appointments. The data comes from all [facility]. Appointment Date/Time Appointment Type Appointme nt Facility Name Mar 12, 2024 01:25 PM AMBULATORY - NONE [facility] Mar 14, 2024 01:30 PM AMBULATORY - MEDICINE [facility] Apr 26, 2024 10:00 AM AMBULATORY - MEDICINE [facility] Jul 31, 2024 09:20 AM AMBULATORY - SURGERY [facility] August 21, 2024 09:00 AM AMBULATORY - NONE [facility] August 21, 2024 10:00 AM AMBULATORY - [...] of theEncounter. The data comes from all [facility]. Test Date/Time Test Type Test Details Facility Name Jan 28, 2024 02:00 AM Laboratory - Chemi stry Order TROPONIN I, HS PLASMA STAT [facility] Mar 01, 2024 03:28 PM Consult Order IFC TRAVEL ING UNIVERSAL CONSULT-[facility] Oil Pipeline Dispatcher's Choice [facility] Social History: Smoking Status (Most current) and Tobacco Use (All prior to encounter date) This section includes the most current, and the historical, smoking and tobacco- related health factors from the [place] facility where the Encounter took place. Current Smoking Status This section includes the most current smoking, or tobacco-related health factor, from the [place] facility where the Encounter took place. Date/Time Current Smoking Status Comment Mimi hernandez Dec 14, 2023 11:30 AM VA-TOBACCO FORMER USER [facility] Tobacco Use History This section includes a history of the smoking, or tobacco-related health factors, that were collected on or before the date of the Encounter. The data comes from the [place] facility where the Encounter took place. Date/Time Smoking Status/Tobacco Use Comment F danteility Dec 14, 2023 11:30 AM VA-TOBACCO QUIT 15 YRS OR MORE [facility] Oct 13, 2022 01:30 PM VA-TOBACCO FORMER USER [facility] Oct 13, 2022 01:30 PM VA-TOBACCO QUIT 15 YRS OR MORE [facility] Jul 27, 2021 10:00 AM VA-TOBACCO FORMER USER [facility] Jul 27, 2021 10:00 AM VA-TOBACCO QUIT 15 YRS OR MORE [facility] Jan 02, 2020 09:00 AM VA-TOBACCO FORMER USER [facility] Jan 02, 2020 09:00 AM VA-TOBACCO QUIT 15 YRS OR MORE [facility] Jul 21, 2018 03:00 PM VA-TOBACCO FORMER USER [facility] Jul 21, 2018 03:00 PM VA-TOBACCO QUIT 15 YRS OR MORE [facility] Dec 24, 2016 08:01 AM FORMER TOBACCO USER 7Y OR GREATE R [facility] Dec 23, 2015 08:23 AM FORMER TOBACCO USE >1Y <7Y [facility] Dec 26, 2014 10:32 AM FORMER TOBACCO USER 7Y OR GREATE R [facility] August 13, 2013 08:22 AM LIFETIME NON-TOBACCO USER [facility] August 30, 2006 08:38 AM FORMER TOBACCO USER 7Y OR GREATE R [facility] Advance Directives: All historical and current Section Date Range: From patient's date of to the date document was created. This section includes ALL of a patient's completed or amended [place] Advance and Rescinded Directives. The entries below indicate that a directive exists for the patient, but an actual copy is not included with this document. The data comes from all [place] facilities. Date Advance Directives Provider Source August 30, 2006 ADVANCE DIRECTIVE ARGENIS CRAMER [facility] Encounter Notes: All associated encounter notes [...] Patient Name: GERI COUGHLIN Patient Primary Address[address] [address] [place] [id number] Patient Primary Phone: [phone] Patient : 1935 Patient Age: 88 Call Back Number: [phone] Caller/Recipient Relation to Patient: Self Caller Name: [...] Emergency Room (ER) Nurse Summary Nurse Summary: Edwin says he had two cardiac stents inserted a month ago. Now I haven't had a BM X3-4 days; c/o pain in the center of his lower abd. Advised of triage recommendation. Edwin says [place] 35 miles from the [place] but they always send me to [facility] when I need to go to the hospital. Advised to take his [place] ID and a current medication list with him. Also advised to take a copy of any paperwork from the ER so it can be scanned into his [facility] record for continuity of care. Advised he will need to sign an HEIDI for any information that needs to be obtained later. [place] also advised to take a director industrial cord for his cell phone and to label the director industrial cord so in case he gets from the cord, whoever finds the cord will know how to reach him to return the cord to him. advised to call the National Emergency Care Contact Center phone number to report going to a civilian hospital. Edwin advised the number is available . This note was created by a V10 Telephone Triage call center recruiter. Replies or messages to/requests for additional signatures are not monitored. Please do not reply back or request signature to the author of this note/message. Clinical Contact Center Codes Clinic/Location: [facility] PH[facility] CCC RN Decision Support System Output: Triage Complete Triage Date: 03/10/2024, 05:56 PM Triage Note: Decision Support Tool Used: [facility] Phone Triage Sat, 10 Mar 2024 22:48:08 +0000 UTC Demographics 88 y/o Male Results CC: Constipation [...] That Cause Constipation (Caffeine, Red Meat, Alcohol) (SecondHome) IMPORTANT: This note was created by [facility] Clinical Contact Center staff. Please do not alert the staff member by adding them as a signer for future communications. Alerts are not monitored by this user. /shelly/ MATT LOMBARDI RN RN, MSN Signed: 03/10/2024 17:07 Receipt Acknowledged By: 03/11/2024 22:34 /es/ Sariah Gomes MD Physician 03/12/2024 11:35 /es/ JAKE BENJAMIN RN REGISTERED NURSE MATT LOMBARDI [facility]
--- OUTSIDE RECORDS SUMMARY | 2024-03-13 12:17 | XMS_ITS | Encounter Summary ---
Author Name Department [place] Organization [place] Address [address] [place] [id number] Care Team Providers Care Professor Of Law Name Role Phone JACKELYN GOMES Primary Care [...] PART A Sep 09, 2002 PART A [id number] JOAQUIN COUGHLIN S PATIENT MEDICARE (WNR) MEDICARE (M) PART B Sep 09, 2002 PART B [id number] NULL,JOAQUIN S PATIENT MEDICARE (WNR) MEDICARE (M) PART A Sep 09, 2002 PART A [id number] NULLJOAQUIN S PATIENT MEDICARE (WNR) MEDICARE (M) PART B Sep 09, 2002 PART B [id number] MADYSON,JOAQUIN S PATIENT Selected Encounter This section includes the information on record at [place] for the Encounter. Date/Time Encounter Type Encounter Description Reason Provider Source Mar 12, 2024 01:25 PM Outpatient Encounter ADMIN PAT ACTIVTIES (MASNONCT) KEY,NATALIE M IHE Encounter Template Text not used by [place] Plan of Treatment: Future Appointments (+ 6 months) and Future Tests (+/- 45 days) The Plan of Treatment section includes future care activities for the patient from all [place] [facility]. This section includes future appointments and future orders which are active, pending or scheduled. Future Appointments This section includes appointments that were scheduled to occur 6 months from the date of the Encounter, up to a maximum of 20 appointments. The data comes from all [place] treatment [facility]. Appointment Date/Time Appointment Type Appointme nt Facility Name Mar 14, 2024 01:30 PM AMBULATORY - MEDICINE [facility] Apr 26, 2024 10:00 AM AMBULATORY - MEDICINE [facility] Jul 31, 2024 09:20 AM AMBULATORY - SURGERY [facility] August 21, 2024 09:00 AM AMBULATORY - NONE [facility] August 21, 2024 10:00 AM AMBULATORY - MEDICINE [facility] Active, Pending, and Scheduled Orders This section includes a listing of several types of active, pending, and scheduled orders, including clinic medications orders, diagnostic test orders, procedure orders and consult orders; where the start date of the order is 45 days before the date of the Encounter or 45 days after the date of the Encounter. The data comes from all [facility]. Test Date/Time Test Type Test Details Facility Name Jan 28, 2024 02:00 AM Laboratory - Chemi stry Order TROPONIN I, HS PLASMA STAT [facility] Mar 01, 2024 03:28 PM Consult Order IFC TRAVEL ING UNIVERSAL CONSULT-[facility] Monumental Stonemason's Choice [facility] Social History: Smoking Status (Most current) [...] 14, 2023 11:30 AM VA-TOBACCO FORMER USER [facility] Tobacco Use History This section includes a history of the smoking, or tobacco-related health factors, that were collected on or before the date of the Encounter. The data comes from the [place] facility where the Encounter took place. Date/Time Smoking Status/Tobacco Use Comment F acility Dec 14, 2023 11:30 AM VA-TOBACCO QUIT 15 YRS OR MORE [facility] Oct 13, 2022 01:30 PM VA-TOBACCO FORMER USER [facility] Oct 13, 2022 01:30 PM VA-TOBACCO QUIT 15 YRS OR MORE [facility] Jul 27, 2021 10:00 AM VA-TOBACCO FORMER USER [facility] Jul 27, 2021 10:00 AM VA-TOBACCO QUIT 15 YRS OR MORE [facility] Jan 02, 2020 09:00 AM VA-TOBACCO FORMER USER [facility] Jan 02, 2020 09:00 AM VA-TOBACCO QUIT 15 YRS OR MORE [facility] Jul 21, 2018 03:00 PM VA-TOBACCO FORMER USER [facility] Jul 21, 2018 03:00 PM VA-TOBACCO QUIT 15 YRS OR MORE [facility] Dec 24, 2016 08:01 AM FORMER TOBACCO USER 7Y OR GREATE R [facility] Dec 23, 2015 08:23 AM FORMER TOBACCO USE >1Y <7Y [facility] Dec 26, 2014 10:32 AM FORMER TOBACCO USER 7Y OR GREATE R [facility] August 13, 2013 08:22 AM LIFETIME NON-TOBACCO USER [facility] August 30, 2006 08:38 AM FORMER TOBACCO USER 7Y OR GREATE R [facility] Advance Directives: All historical and current Section Date Range: From patient's date of to the date document was created. This section includes ALL of a patient's completed or amended [place] Advance and Rescinded Directives. The entries below indicate that a directive exists for the patient, but an actual copy is not included with this document. The data comes from all [place] facilities. Date Advance Directives Provider Source August 30, 2006 ADVANCE DIRECTIVE ARGENIS CRAMER [facility] Encounter Notes: All associated encounter notes This section contains the clinical notes associated to the Encounter. Date/Time Encounter Note(s) Provider Source Mar 12, 2024 02:09 PM ADDENDUM: LOCAL TITLE: Addendum STANDARD TITLE: ADDENDUM DATE OF NOTE: MAR 12, 2024@14:09:31 ENTRY DATE: MAR 12, 2024@14:09:32 AUTHOR: EARLENE RODRIGES EXP COSIGNER: URGENCY: STATUS: COMPLETED Records requested and will be uploaded via SquaredOut when received. /shelly/ EARLENE RODRIGES ...Advanced Central Office Repairer Supervisor Signed: 03/12/2024 14:09 Receipt Acknowledged By: 03/13/2024 11:00 /shelly/ JAKE BENJAMIN RN REGISTERED NURSE --- Original Document --- 03/10/24 [facility] SELF PRESENTING CARE COORD PLAN NOTE: Emergency Notification Intake Date Presenting to the Facility: Feb Method of Contact: Notified from [employer] worklist Notification ID: [id number] [facility] Referral #: [facility] Name: Hospital: [facility] Address: City: [place]: [place] Zip Code: Phone : [facility] Point of Contact: Name: Phone: Chief complaint: ABDOMINAL PAIN Primary Diagnosis: Disposition Unknown at time of intake note entry /shelly/ SARA BARBOSA STEM SHAPER Signed: 03/12/2024 13:27 Receipt Acknowledged By: 03/12/2024 13:30 /shelly/ Natalie Key FORECLOSURE PARALEGAL hob mill operator International Trade Teacher 03/12/2024 ADDENDUM STATUS: COMPLETED Notification acknowledged by RN. Medical and clinical information not reviewed. /nolan Key FORECLOSURE PARALEGAL hob mill operator International Trade Teacher Signed: 03/12/2024 13:30 EARLENE RODRIGES [facility] Mar 10, 2024 01:26 PM NONVA NOTE: LOCAL TITLE: COMMUNITY C[facility] SELF PRESENTING CARE COORD PLAN STANDARD TITLE: NONVA NOTE DATE OF NOTE: MAR 10, 2024@13:26 ENTRY DATE: MAR 12, 2024@13:26:18 AUTHOR: SARA BARBOSA EXP COSIGNER: URGENCY: STATUS: COMPLETED [facility] SELF PRESENTING CARE COORD PLAN NOTE Has ADDENDA Emergency Notification Intake Date Presenting to the Facility: Feb Method of Contact: Notified from [employer] worklist Notification ID: [id number] [facility] Referral #: [facility] Name: Hospital: [facility] Address: City: [facility]: [place] Zip Code: Phone : Community Facility Point of Contact: Name: Phone: Chief complaint: ABDOMINAL PAIN Primary Diagnosis: Disposition Unknown at time of intake note entry /shelly/ SARA BARBOSA STEM SHAPER Signed: 03/12/2024 13:27 Receipt Acknowledged By: 03/12/2024 13:30 /shelly/ Natalie Key FORECLOSURE PARALEGAL hob mill operator International Trade Teacher 03/12/2024 ADDENDUM STATUS: COMPLETED Notification acknowledged by RN. Medical and clinical information not reviewed. /shelly/ Natalie Key FORECLOSURE PARALEGAL hob mill operator International Trade Teacher Signed: 03/12/2024 13:30 03/12/2024 ADDENDUM STATUS: COMPLETED Records requested and will be uploaded via SquaredOut when received. /shelly/ EARLENE Villarreal [facility] ...Advanced Central Office Repairer Supervisor Signed: 03/12/2024 14:09 Receipt Acknowledged By: * AWAITING SIGNATURE * JAKE BENJAMIN,SARA NEVAREZ [facility]
[2024-03-13] MEDS: MAGNESIUM CITRATE 300 ML SOLUTION PO (12:52)
[2024-03-13] MEDS: ONDANSETRON ODT 4 MG TAB PO (13:07)
[2024-03-13] MEDS: DOCUSATE SODIUM/BENZOCAINE 5 ML ENEMA PR (13:34)
[2024-03-13] MEDS: DOC/MIN OIL/MAG CIT/SOD PHOS 376 ML ENEMA PR (14:27)
== END 2024-03-13 16:18 | disposition home or self-care (01) ==
PROVIDERS: Emergency Provider Family Medicine; PCP Internal Medicine
DX: K59.00 Constipation, unspecified (principal)
CPT/HCPCS: 74019; 99283; 99284; A9270

== ENCOUNTER 2025-03-29 13:34 | Outpatient (CLI) | payer OTHER, SELFPAY ==
--- NOTE | 2025-03-29 14:00 | CRLHL7_ITS ---
For Patients: As a result of the 21st Century Cures Act, medical imaging exams and procedure reports are released immediately into your electronic medical record. You may view this report before your referring provider. If you have questions, please contact your health care provider. INDICATION: Stage IV ureteral cancer TECHNIQUE: CT chest, abdomen and pelvis acquired with 76 mL Isovue 370 IV contrast. COMPARISON: None. FINDINGS: CHEST: Cardiovascular structures: Heart size is normal. Thoracic aorta and main pulmonary artery are normal in caliber. Coronary artery calcification and/or stents. Mediastinum and anderson: No mass or adenopathy. Lungs and pleura: Basilar predominant peripheral reticulation and honeycombing both lungs consistent with pulmonary fibrosis and typical for UIP. 3 mm left lower lobe nodule on image 54 of series 3. Chest wall and axilla: No mass or adenopathy. Bones: No suspicious bone lesions. Unremarkable for age. ABDOMEN AND PELVIS: Liver: Steatosis. No mass. Gallbladder and bile ducts: Unremarkable. Pancreas: Unremarkable. Spleen: Unremarkable. Adrenal glands: Unremarkable. Kidneys: Left ureteral stent in place. Proximal pigtail in the renal pelvis and distal pigtail in the bladder. Mild stranding around the left renal pelvis. Soft tissue thickening or ureteral dilation in the pelvis near the iliac vessels image 113 series 7. Stent goes through this area. GI tract: Colonic diverticulosis. Stomach moderately distended with fluid. 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 3.7 cm infrarenal abdominal aortic aneurysm. Advanced aortoiliac atherosclerosis. Lymph nodes: Unremarkable. Miscellaneous: Unremarkable. No free air or significant free fluid. Pelvic Organs: Moderate bladder wall thickening, particularly left and anterior wall. Prostate gland appears enlarged. Bones: No suspicious bone lesions. Unremarkable for age. IMPRESSION: 1. No convincing evidence for metastatic disease. 2. Left ureteral stent appears appropriately positioned. No hydronephrosis. 3. Soft tissue thickening and/or focal dilation of the distal left ureter in the pelvis. This has unclear significance but could be the site of the patient`s primary tumor. 4. 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 5. 3 mm left lower lobe pulmonary nodule. Recommend attention on follow-up exam. 6. 3.7 cm infrarenal abdominal aortic aneurysm. 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 Please note that all CT scans at this facility use dose modulation, iterative reconstruction, and/or weight-based dosing when appropriate to reduce radiation dose to as low as reasonably achievable. Dictated by Hema Pablo MD @ 04/03/2025 10:26:14 AM (Electronically Signed)
== END 2025-03-29 13:35 | disposition home or self-care (01) ==
LOC: CT 13:35
PROVIDERS: PCP Internal Medicine; Visit Provider Internal Medicine Hematology & Oncology
DX: C66.9 Malignant neoplasm of unspecified ureter (principal); J84.10 Pulmonary fibrosis, unspecified; R91.1 Solitary pulmonary nodule; I71.40 Abdominal aortic aneurysm, without rupture, unspecified; I72.8 Aneurysm of other specified arteries
CPT/HCPCS: 71260; 74177; Q9967